=== PATIENT | female | born 1960 | race Caucasian/White ===

== ENCOUNTER 2020-01-31 16:38 | Emergency (ER) | payer OTHER ==
[~2020-01-31] VITALS: Ht 162.6 cm; Wt 49.9 kg
[2020-01-31] MEDS ORDERED: SODIUM CHLORIDE 0.9% 500ML 500 ML IV STA (16:39)
--- OUTSIDE RECORDS SUMMARY | 2020-01-31 16:51 | XMS REPORT ---
Author [facility] Address Unknown Phone Unavailable Care Team Providers Care Service Station Console Operator Name Role Phone Unavailable Unavailable Payers Payer Name Policy Type Policy Number Effective Date Expiration Date Problems This patient has no known problems. Allergies, Adverse Reactions, Alerts Allergy Name Allergy Type Status Severity Reaction(s) Onset Date Inactive Date Treating Clinician Comments No Known Allergies DA Active U 2019-05-06 00:00:00 No Known Allergies DA Active U 2019-03-09 00:00:00 No Known Allergies DA Active U 2018-11-30 00:00:00 No Known Allergies DA Active U 2018-07-30 00:00:00 No Known Allergies DA Active U 2018-07-27 00:00:00 No Known Allergies DA Active U 2017-08-25 00:00:00 No Known Allergies DA Active U 2017-05-10 00:00:00 Medications This patient has no known medications. Results Test Description Test Time Test Comments Text Results Atomic Results Result Comments URINALYSIS COMPLETE 2019-11-30 15:52:00 UA COLOR (test code=COLU) YELLOW YELLOW UA APPEARANCE (test code=APPU) Cloudy CLEAR UA GLUCOSE DIPSTICK (test code=DGLUU) NEGATIVE mg/dL NEGATIVE UA BILIRUBIN DIPSTICK (test code=BILU) NEGATIVE mg/dL NEGATIVE UA KETONE DIPSTICK (test code=KETU) NEGATIVE mg/dL NEGATIVE UA SPECIFIC GRAVITY (test code=SGU) 1.022 1.001-1.035 UA BLOOD DIPSTICK (test code=JORGE) 1.0 mg/dL (3+) mg/dL NEGATIVE UA PH DIPSTICK (test code=MAGED) 6.0 5.0-8.0 UA PROTEIN DIPSTICK (test code=PROU) 50 (1+) mg/dL NEGATIVE UA UROBILINIOGEN DIPSTICK (test code=URO) Normal mg/dL NEGATIVE UA NITRITE DIPSTICK (test code=BHARATH) POSITIVE NEGATIVE UA LEUKOCYTE ESTERASE W REFLEX (test code=LEUUR) 500 Ana/uL (3+) Ana/uL NEGATIVE UA WBC (test code=WBCU) 101-150 per HPF 0-5 UA RBC (test code=RBCU) 101-150 #/HPF 0-5 UA EPITHELIAL CELLS (test code=EPIU) FEW per HPF FEW UA BACTERIA (test code=BACU) MANY #/HPF NONE UA CALCIUM OXALATE CRYSTALS (test code=CAOXU) FEW #/HPF NONE UA MUCUS (test code=MUCU) FEW #/LPF FEW Urine Source? CatheterURINALYSIS [id number] 15:51:00* Test Item Value Reference Range Comments UA COLOR (test code=COLU) YELLOW YELLOW UA APPEARANCE (test code=APPU) Cloudy CLEAR UA GLUCOSE DIPSTICK (test code=DGLUU) NEGATIVE mg/dL NEGATIVE UA BILIRUBIN DIPSTICK (test code=BILU) NEGATIVE mg/dL NEGATIVE UA KETONE DIPSTICK (test code=KETU) NEGATIVE mg/dL NEGATIVE UA SPECIFIC GRAVITY (test code=SGU) 1.022 1.001-1.035 UA BLOOD DIPSTICK (test code=JORGE) 1.0 mg/dL (3+) mg/dL NEGATIVE UA PH DIPSTICK (test code=MAGED) 6.0 5.0-8.0 UA PROTEIN DIPSTICK (test code=PROU) 50 (1+) mg/dL NEGATIVE UA UROBILINIOGEN DIPSTICK (test code=URO) Normal mg/dL NEGATIVE UA NITRITE DIPSTICK (test code=BHARATH) POSITIVE NEGATIVE UA LEUKOCYTE ESTERASE W REFLEX (test code=LEUUR) 500 Ana/uL (3+) Ana/uL NEGATIVE UA WBC (test code=WBCU) per HPF 0-5 UA RBC (test code=RBCU) per HPF 0-5 UA EPITHELIAL CELLS (test code=EPIU) per HPF Few UA BACTERIA (test code=BACU) per HPF NONE Urine Source? Catheter- CONT INJ THERESE/ JAM/ CLARA/ [id number] 10:27:00 FAX: Angelo Hodges MD [phone] [place]: St: REG Name: OLEG UMANZOR [facility] : [birth year] Age/S: 58/F [address] [facility] Unit #: [id number] Loc: [place] [address] Phys: Angelo Hodges MD Acct: [id number] Dis Date: Status: REG CLI PHONE #: [phone] Exam Date: 05/29/2019 1013 FAX #: [phone] Reason: VERIFY G-TUBE PLACEMENT EXAMS: CPT CODE: [id number] CONT INJ THERESE/ JAM/ CLARA/ [place] [id number] HISTORY: VERIFY G-TUBE PLACEMENT TECHNIQUE: AP abdomen x-ray COMPARISON: Abdominal radiographs May 23, 2019 FINDINGS: Contrast administered through the gastrostomy tube opacifies the stomach lumen. No intraperiton eal spillage of contrast. Nonspecific nonobstructed bowel gas pattern. No intra-abdominal mass effect. No abnormal calcifications are obser dre. Degenerative changes of the spine and in the pelvis are unchanged. IVC filter is unchanged. Multiple surgical clips projecting over the right upper abdomen, likely cholecystectomy clips, are stable in position. IMPRESSION: Oral contrast and Mr. through t he rest grossly tube opacifies the stomach lumen. No intraperitoneal spi llage of contrast. Electronically Signed by Ted Sanchez MD on 2018 at 1027 Reported and signed by: Ted Sanchez MD CC: Angelo Hodges MD Techno logist: Tammie Mijares(R); Mere Olivas RT(R) Trnohrd Date/Time /By: 05/29/2019 (8067) : By: [email or web address] Orig Print D/T: S: 05/29/2019 ( 2974) PAGE 1 Signed Report - XR ABDOMEN AP 1 [id number] 13:02:00 FAX: Angelo Hodges MD [phone] [place]: St: REG Name: OLEG UMANZOR [facility] : [birth year] Age/S: 58/F [address] [facility] Unit #: [id number] Loc: [place] [address] Phys: Angelo Hodges MD Acct: [id number] Dis Date: Status: REG CLI PHONE #: [phone] Exam Date: 05/23/2019 1250 FAX #: [phone] Reason: peg tube placement EXAMS: CPT CODE: [id number] XR ABDOMEN AP 1 V 33987 HISTORY: peg tube placement TECHNIQUE: AP abdomen x-ray COMPARISON: None FINDINGS: Gastrografin was not able to be administered through the g astrostomy tube. IVC filter is present. Metallic sutures are present in th e left upper abdomen. Surgical clips projecting over the right upper quadr ant may be from a prior cholecystectomy. Nonspecific nonobstructed bowel gas pattern. No intra-abdominal mass effect. No abnormal sadia cifications are observed. Degenerative changes are present in the spine a nd sacroiliac joints. IMPRESSION: Incomple te exam since contrast was not able to be administered through the gastr ostomy tube. No radiographic evidence of acute intra-abdominal process. at 1302 Reported and signed by: Ted Sanchez MD CC: Angelo Leyva MD Technologist: RT ILANA(R) Trnscrd Date/Time/By: 05/23/2019 (28 11) : By: [email or web address] Orig Print D/T: S: 05/23/2019 (7403) PAGE 1 Signed Report [id number] 16:59:00* Test Item Value Reference Range Comments GLUBED (test code=GLUBED) 84 mg/dL 74-106 Performed by certified traffic control operator at [facility] BASIC METABOLIC [id number] 08:19:00* Test Item Value Reference Range Comments SODIUM (test code=NA) 142 mmol/L 136-145 POTASSIUM (test code=K) 3.5 mmol/L 3.5-5.1 CHLORIDE (test code=CL) 108.0 mmol/L 98-107 CARBON DIOXIDE (test code=CO2) 30.0 mmol/L 21-32 ANION GAP (test code=GAP) 7.5 10-20 GLUCOSE (test code=GLU) 83 mg/dL 74-106 BLOOD UREA NITROGEN (test code=BUN) 8 mg/dL 7-18 GLOMERULAR FILTRATION RATE (test code=GFR) > 60 mL/min >=60 Estimated GFR by using Modified MDRD formula.Chronic kidney disease is defined as either kidney damageor GFR <60 mL/min/1.73 m2 for >3 months. CREATININE (test code=CREAT) 0.30 mg/dL 0.55-1.02 Note change in reference range due to change in reagent. BUN/CREATININE RATIO (test code=BUN/CREA) 26.7 10-20 CALCIUM (test code=CA) 9.1 mg/dL 8.5-10.1 [id number] 07:35:00* Test Item Value Reference Range Comments GLUBED (test code=GLUBED) 98 mg/dL 74-106 Performed by certified traffic control operator at [facility] CBC W/AUTO [id number] 07:32:00* Test Item Value Reference Range Comments WHITE BLOOD CELL (test code=WBC) 6.2 K/mm3 4.5-12.5 RED BLOOD CELL (test code=RBC) 2.69 mill/mm3 3.7-5.2 HEMOGLOBIN (test code=HGB) 8.6 gram/dL 11.5-15.5 HEMATOCRIT (test code=HCT) 27.7 % 36.0-46.0 MEAN CELL VOLUME (test code=MCV) 103.0 fL 80-98 MEAN CELL HGB (test code=MCH) 32.0 picogram 27.0-33.0 MEAN CELL HGB CONCETRATION (test code=MCHC) 31.0 gram/dL 33.0-36.0 RED CELL DISTRIBUTION WIDTH (test code=RDW) 18.9 % 11.6-16.2 RED CELL DISTRIBUTION WIDTH SD (test code=RDW-SD) 70.3 fL 37.0-51.0 PLATELET COUNT (test code=PLT) 482 K/mm3 150-450 RESULT VERIFIED BY REPEAT ANALYSIS MEAN PLATELET VOLUME (test code=MPV) 9.5 fL 6.7-11.0 NEUTROPHIL % (test code=NT%) 73.0 % 39.0-69.0 IMMATURE GRANULOCYTE % (test code=IG%) 1.1 % 0.0-5.0 LYMPHOCYTE % (test code=LY%) 11.5 % 25.0-55.0 MONOCYTE % (test code=MO%) 11.7 % 0.0-10.0 EOSINOPHIL % (test code=EO%) 2.4 % 0.0-5.0 BASOPHIL % (test code=BA%) 0.3 % 0.0-1.0 NUCLEATED RBC % (test code=NRBC%) 0.0 % 0-0 NEUTROPHIL # (test code=NT#) 4.48 K/mm3 1.8-7.7 IMMATURE GRANULOCYTE # (test code=IG#) 0.07 x10 3/uL 0-0.03 LYMPHOCYTE # (test code=LY#) 0.71 K/mm3 1.0-5.0 MONOCYTE # (test code=MO#) 0.72 K/mm3 0-0.8 EOSINOPHIL # (test code=EO#) 0.15 K/mm3 0.0-0.5 BASOPHIL # (test code=BA#) 0.02 K/mm3 0.0-0.2 NUCLEATED RBC # (test code=NRBC#) 0.00 K/mm3 0.0-0.1 [id number] 21:34:00* Test Item Value Reference Range Comments GLUBED (test code=GLUBED) 91 mg/dL 74-106 Performed by certified traffic control operator at [facility] [id number] 11:32:00* Test Item Value Reference Range Comments GLUBED (test code=GLUBED) 86 mg/dL 74-106 Performed by certified traffic control operator at [facility] BASIC METABOLIC [id number] 05:30:00* Test Item Value Reference Range Comments SODIUM (test code=NA) 144 mmol/L 136-145 POTASSIUM (test code=K) 3.8 mmol/L 3.5-5.1 CHLORIDE (test code=CL) 112.0 mmol/L 98-107 CARBON DIOXIDE (test code=CO2) 26.0 mmol/L 21-32 ANION GAP (test code=GAP) 9.8 10-20 GLUCOSE (test code=GLU) 84 mg/dL 74-106 BLOOD UREA NITROGEN (test code=BUN) 6 mg/dL 7-18 GLOMERULAR FILTRATION RATE (test code=GFR) > 60 mL/min >=60 Estimated GFR by using Modified MDRD formula.Chronic kidney disease is defined as either kidney damageor GFR <60 mL/min/1.73 m2 for >3 months. CREATININE (test code=CREAT) 0.30 mg/dL 0.55-1.02 Note change in reference range due to change in reagent. BUN/CREATININE RATIO (test code=BUN/CREA) 22.6 10-20 CALCIUM (test code=CA) 8.9 mg/dL 8.5-10.1 BASIC METABOLIC [id number] 05:23:00* Test Item Value Reference Range Comments SODIUM (test code=NA) 144 mmol/L 136-145 POTASSIUM (test code=K) 3.8 mmol/L 3.5-5.1 CHLORIDE (test code=CL) 112.0 mmol/L 98-107 CARBON DIOXIDE (test code=CO2) mmol/L 21-32 ANION GAP (test code=GAP) 10-20 GLUCOSE (test code=GLU) mg/dL 74-106 BLOOD UREA NITROGEN (test code=BUN) mg/dL 7-18 GLOMERULAR FILTRATION RATE (test code=GFR) mL/min >=60 CREATININE (test code=CREAT) mg/dL 0.55-1.02 BUN/CREATININE RATIO (test code=BUN/CREA) 10-20 CALCIUM (test code=CA) mg/dL 8.5-10.1 CBC W/AUTO [id number] 04:56:00* Test Item Value Reference Range Comments WHITE BLOOD CELL (test code=WBC) 5.1 K/mm3 4.5-12.5 RED BLOOD CELL (test code=RBC) 2.84 mill/mm3 3.7-5.2 HEMOGLOBIN (test code=HGB) 9.2 gram/dL 11.5-15.5 HEMATOCRIT (test code=HCT) 29.4 % 36.0-46.0 MEAN CELL VOLUME (test code=MCV) 103.5 fL 80-98 MEAN CELL HGB (test code=MCH) 32.4 picogram 27.0-33.0 MEAN CELL HGB CONCETRATION (test code=MCHC) 31.3 gram/dL 33.0-36.0 RED CELL DISTRIBUTION WIDTH (test code=RDW) 18.6 % 11.6-16.2 RED CELL DISTRIBUTION WIDTH SD (test code=RDW-SD) 70.4 fL 37.0-51.0 PLATELET COUNT (test code=PLT) 396 K/mm3 150-450 MEAN PLATELET VOLUME (test code=MPV) 9.4 fL 6.7-11.0 NEUTROPHIL % (test code=NT%) 65.3 % 39.0-69.0 IMMATURE GRANULOCYTE % (test code=IG%) 2.4 % 0.0-5.0 LYMPHOCYTE % (test code=LY%) 15.2 % 25.0-55.0 MONOCYTE % (test code=MO%) 13.7 % 0.0-10.0 EOSINOPHIL % (test code=EO%) 3.0 % 0.0-5.0 BASOPHIL % (test code=BA%) 0.4 % 0.0-1.0 NUCLEATED RBC % (test code=NRBC%) 0.0 % 0-0 NEUTROPHIL # (test code=NT#) 3.30 K/mm3 1.8-7.7 IMMATURE GRANULOCYTE # (test code=IG#) 0.12 x10 3/uL 0-0.03 LYMPHOCYTE # (test code=LY#) 0.77 K/mm3 1.0-5.0 MONOCYTE # (test code=MO#) 0.69 K/mm3 0-0.8 EOSINOPHIL # (test code=EO#) 0.15 K/mm3 0.0-0.5 BASOPHIL # (test code=BA#) 0.02 K/mm3 0.0-0.2 NUCLEATED RBC # (test code=NRBC#) 0.00 K/mm3 0.0-0.1 MANUAL DIFF REQUIRED (test code=MDIFF) NO [id number] 17:39:00* Test Item Value Reference Range Comments GLUBED (test code=GLUBED) 101 mg/dL 74-106 Performed by certified traffic control operator at [facility] [id number] 17:39:00* Test Item Value Reference Range Comments GLUBED (test code=GLUBED) 99 mg/dL 74-106 Performed by certified traffic control operator at [facility] BASIC METABOLIC [id number] 09:34:00* Test Item Value Reference Range Comments SODIUM (test code=NA) 142 mmol/L 136-145 POTASSIUM (test code=K) 3.8 mmol/L 3.5-5.1 CHLORIDE (test code=CL) 112.0 mmol/L 98-107 CARBON DIOXIDE (test code=CO2) 26.0 mmol/L 21-32 ANION GAP (test code=GAP) 7.8 10-20 GLUCOSE (test code=GLU) 90 mg/dL 74-106 BLOOD UREA NITROGEN (test code=BUN) 5 mg/dL 7-18 GLOMERULAR FILTRATION RATE (test code=GFR) > 60 mL/min >=60 Estimated GFR by using Modified MDRD formula.Chronic kidney disease is defined as either kidney damageor GFR <60 mL/min/1.73 m2 for >3 months. CREATININE (test code=CREAT) 0.30 mg/dL 0.55-1.02 Note change in reference range due to change in reagent. BUN/CREATININE RATIO (test code=BUN/CREA) 18.5 10-20 CALCIUM (test code=CA) 8.8 mg/dL 8.5-10.1 BASIC METABOLIC [id number] 09:29:00* Test Item Value Reference Range Comments SODIUM (test code=NA) 142 mmol/L 136-145 POTASSIUM (test code=K) 3.8 mmol/L 3.5-5.1 CHLORIDE (test code=CL) 112.0 mmol/L 98-107 CARBON DIOXIDE (test code=CO2) mmol/L 21-32 ANION GAP (test code=GAP) 10-20 GLUCOSE (test code=GLU) mg/dL 74-106 BLOOD UREA NITROGEN (test code=BUN) mg/dL 7-18 GLOMERULAR FILTRATION RATE (test code=GFR) mL/min >=60 CREATININE (test code=CREAT) mg/dL 0.55-1.02 BUN/CREATININE RATIO (test code=BUN/CREA) 10-20 CALCIUM (test code=CA) mg/dL 8.5-10.1 CBC W/AUTO [id number] 09:21:00* Test Item Value Reference Range Comments WHITE BLOOD CELL (test code=WBC) 4.8 K/mm3 4.5-12.5 RED BLOOD CELL (test code=RBC) 2.81 mill/mm3 3.7-5.2 HEMOGLOBIN (test code=HGB) 8.9 gram/dL 11.5-15.5 HEMATOCRIT (test code=HCT) 28.7 % 36.0-46.0 MEAN CELL VOLUME (test code=MCV) 102.1 fL 80-98 MEAN CELL HGB (test code=MCH) 31.7 picogram 27.0-33.0 MEAN CELL HGB CONCETRATION (test code=MCHC) 31.0 gram/dL 33.0-36.0 RED CELL DISTRIBUTION WIDTH (test code=RDW) 18.5 % 11.6-16.2 RED CELL DISTRIBUTION WIDTH SD (test code=RDW-SD) 68.2 fL 37.0-51.0 PLATELET COUNT (test code=PLT) 363 K/mm3 150-450 MEAN PLATELET VOLUME (test code=MPV) 9.6 fL 6.7-11.0 NEUTROPHIL % (test code=NT%) 73.2 % 39.0-69.0 IMMATURE GRANULOCYTE % (test code=IG%) 1.0 % 0.0-5.0 LYMPHOCYTE % (test code=LY%) 10.2 % 25.0-55.0 MONOCYTE % (test code=MO%) 13.5 % 0.0-10.0 EOSINOPHIL % (test code=EO%) 1.7 % 0.0-5.0 BASOPHIL % (test code=BA%) 0.4 % 0.0-1.0 NUCLEATED RBC % (test code=NRBC%) 0.0 % 0-0 NEUTROPHIL # (test code=NT#) 3.52 K/mm3 1.8-7.7 IMMATURE GRANULOCYTE # (test code=IG#) 0.05 x10 3/uL 0-0.03 LYMPHOCYTE # (test code=LY#) 0.49 K/mm3 1.0-5.0 MONOCYTE # (test code=MO#) 0.65 K/mm3 0-0.8 EOSINOPHIL # (test code=EO#) 0.08 K/mm3 0.0-0.5 BASOPHIL # (test code=BA#) 0.02 K/mm3 0.0-0.2 NUCLEATED RBC # (test code=NRBC#) 0.00 K/mm3 0.0-0.1 MANUAL DIFF REQUIRED (test code=MDIFF) NO [id number] 05:50:00* Test Item Value Reference Range Comments GLUBED (test code=GLUBED) 75 mg/dL 74-106 Performed by certified traffic control operator at [facility] [id number] 20:31:00* Test Item Value Reference Range Comments GLUBED (test code=GLUBED) 94 mg/dL 74-106 Performed by certified traffic control operator at [facility] - XR SACRUM/COCCYX 2 + [id number] 13:55:00 FAX: Fabienne Pinto MD [phone] [place]: B St: ADM FAX: Jordy Martinez DO [phone] FAX: Kwesi Goss NP [phone] Name: OLEG STEINER [facility] : 1960 Age/S: 58/F [address] Unit #: [id number] Loc: V.[address] [address] Phys: Kwesi Ivory [employer] Acct: [id number] Dis Date: Status: ADM IN ONE #: [phone] Exam Date: 05/10/2019909 FAX #: [phone] Reason: r/o osteomyelitis EXAMS: CPT CODE: [id number] XR SACRUM/COCCYX 2 + V 71807 CLINICAL HISTO RY: r/o osteomyelitis TECHNIQUE: 4 views of the sacrum COMPARISON: None FINDINGS: There are erosive can ges in the coccyx. This is suboptimally evaluated due to poor penetration of x-rays on the lateral view There are degenerative changes in th e spine. There are also degenerative changes in the pubic symphysis. IMPRESSION: Erosive changes in the coccyx. This is suboptimally evaluated. If there is concern for osteomyelitis th en an MRI with and without contrast can provide further evaluation. at 3999 Reported and signed by: Ted Sanchez MD CC: Fabienne Osorio MD; Jordy Gambino; Kwesi Ivory NP Technologist: RT XOCHITL( Eduarda) Trnscrd Date/Time/By: 05/10/2019 (4690) : By: [email or web address] Orig Print D/T: S: 05/10/2019 (5492) PAGE 1 Signed Report CBC W/AUTO [id number] 09:52:00* Test Item Value Reference Range Comments WHITE BLOOD CELL (test code=WBC) 5.1 K/mm3 4.5-12.5 RED BLOOD CELL (test code=RBC) 2.55 mill/mm3 3.7-5.2 HEMOGLOBIN (test code=HGB) 8.1 gram/dL 11.5-15.5 HEMATOCRIT (test code=HCT) 25.8 % 36.0-46.0 MEAN CELL VOLUME (test code=MCV) 101.2 fL 80-98 MEAN CELL HGB (test code=MCH) 31.8 picogram 27.0-33.0 MEAN CELL HGB CONCETRATION (test code=MCHC) 31.4 gram/dL 33.0-36.0 RED CELL DISTRIBUTION WIDTH (test code=RDW) 18.5 % 11.6-16.2 RED CELL DISTRIBUTION WIDTH SD (test code=RDW-SD) 68.8 fL 37.0-51.0 PLATELET COUNT (test code=PLT) 361 K/mm3 150-450 RESULT VERIFIED BY REPEAT ANALYSIS MEAN PLATELET VOLUME (test code=MPV) 9.7 fL 6.7-11.0 NEUTROPHIL % (test code=NT%) 71.3 % 39.0-69.0 IMMATURE GRANULOCYTE % (test code=IG%) 0.8 % 0.0-5.0 LYMPHOCYTE % (test code=LY%) 13.3 % 25.0-55.0 MONOCYTE % (test code=MO%) 12.5 % 0.0-10.0 EOSINOPHIL % (test code=EO%) 1.9 % 0.0-5.0 BASOPHIL % (test code=BA%) 0.2 % 0.0-1.0 NUCLEATED RBC % (test code=NRBC%) 0.0 % 0-0 NEUTROPHIL # (test code=NT#) 3.66 K/mm3 1.8-7.7 IMMATURE GRANULOCYTE # (test code=IG#) 0.04 x10 3/uL 0-0.03 LYMPHOCYTE # (test code=LY#) 0.68 K/mm3 1.0-5.0 MONOCYTE # (test code=MO#) 0.64 K/mm3 0-0.8 EOSINOPHIL # (test code=EO#) 0.10 K/mm3 0.0-0.5 BASOPHIL # (test code=BA#) 0.01 K/mm3 0.0-0.2 NUCLEATED RBC # (test code=NRBC#) 0.00 K/mm3 0.0-0.1 MANUAL DIFF REQUIRED (test code=MDIFF) NO BASIC METABOLIC [id number] 09:47:00* Test Item Value Reference Range Comments SODIUM (test code=NA) 141 mmol/L 136-145 POTASSIUM (test code=K) 3.8 mmol/L 3.5-5.1 CHLORIDE (test code=CL) 111.0 mmol/L 98-107 CARBON DIOXIDE (test code=CO2) 26.0 mmol/L 21-32 ANION GAP (test code=GAP) 7.8 10-20 GLUCOSE (test code=GLU) 80 mg/dL 74-106 BLOOD UREA NITROGEN (test code=BUN) 6 mg/dL 7-18 GLOMERULAR FILTRATION RATE (test code=GFR) > 60 mL/min >=60 Estimated GFR by using Modified MDRD formula.Chronic kidney disease is defined as either kidney damageor GFR <60 mL/min/1.73 m2 for >3 months. CREATININE (test code=CREAT) 0.20 mg/dL 0.55-1.02 Note change in reference range due to change in reagent. BUN/CREATININE RATIO (test code=BUN/CREA) 29.6 10-20 CALCIUM (test code=CA) 8.4 mg/dL 8.5-10.1 BASIC METABOLIC [id number] 09:41:00* Test Item Value Reference Range Comments SODIUM (test code=NA) 141 mmol/L 136-145 POTASSIUM (test code=K) 3.8 mmol/L 3.5-5.1 CHLORIDE (test code=CL) 111.0 mmol/L 98-107 CARBON DIOXIDE (test code=CO2) mmol/L 21-32 ANION GAP (test code=GAP) 10-20 GLUCOSE (test code=GLU) mg/dL 74-106 BLOOD UREA NITROGEN (test code=BUN) mg/dL 7-18 GLOMERULAR FILTRATION RATE (test code=GFR) mL/min >=60 CREATININE (test code=CREAT) mg/dL 0.55-1.02 BUN/CREATININE RATIO (test code=BUN/CREA) 10-20 CALCIUM (test code=CA) mg/dL 8.5-10.1 [id number] 01:35:00* Test Item Value Reference Range Comments GENTAMICIN (test code=GENT) 4.2 mg/mL 4-8.0 GENTAMICIN TOXIC LEVEL: >12 UG/ML [id number] 13:09:00* Test Item Value Reference Range Comments MAGNESIUM (test code=MAG) 1.7 mg/dL 1.8-2.4 BASIC METABOLIC [id number] 06:41:00* Test Item Value Reference Range Comments SODIUM (test code=NA) 144 mmol/L 136-145 POTASSIUM (test code=K) 2.9 mmol/L 3.5-5.1 Results called to [id number] by DAYANARA 05/09/19 0641Critical results verified and read back by Nurse? Y CHLORIDE (test code=CL) 114.0 mmol/L 98-107 CARBON DIOXIDE (test code=CO2) 22.0 mmol/L 21-32 ANION GAP (test code=GAP) 10.9 10-20 GLUCOSE (test code=GLU) 67 mg/dL 74-106 BLOOD UREA NITROGEN (test code=BUN) 7 mg/dL 7-18 GLOMERULAR FILTRATION RATE (test code=GFR) > 60 mL/min >=60 Estimated GFR by using Modified MDRD formula.Chronic kidney disease is defined as either kidney damageor GFR <60 mL/min/1.73 m2 for >3 months. CREATININE (test code=CREAT) 0.20 mg/dL 0.55-1.02 Note change in reference range due to change in reagent. BUN/CREATININE RATIO (test code=BUN/CREA) 33.7 10-20 CALCIUM (test code=CA) 7.9 mg/dL 8.5-10.1 CBC W/AUTO [id number] 06:08:00* Test Item Value Reference Range Comments WHITE BLOOD CELL (test code=WBC) 5.2 K/mm3 4.5-12.5 RED BLOOD CELL (test code=RBC) 2.38 mill/mm3 3.7-5.2 HEMOGLOBIN (test code=HGB) 7.8 gram/dL 11.5-15.5 HEMATOCRIT (test code=HCT) 24.9 % 36.0-46.0 MEAN CELL VOLUME (test code=MCV) 104.6 fL 80-98 MEAN CELL HGB (test code=MCH) 32.8 picogram 27.0-33.0 MEAN CELL HGB CONCETRATION (test code=MCHC) 31.3 gram/dL 33.0-36.0 RED CELL DISTRIBUTION WIDTH (test code=RDW) 18.6 % 11.6-16.2 RED CELL DISTRIBUTION WIDTH SD (test code=RDW-SD) 69.7 fL 37.0-51.0 PLATELET COUNT (test code=PLT) 298 K/mm3 150-450 MEAN PLATELET VOLUME (test code=MPV) 10.1 fL 6.7-11.0 NEUTROPHIL % (test code=NT%) 70.6 % 39.0-69.0 IMMATURE GRANULOCYTE % (test code=IG%) 1.0 % 0.0-5.0 LYMPHOCYTE % (test code=LY%) 11.2 % 25.0-55.0 MONOCYTE % (test code=MO%) 14.7 % 0.0-10.0 EOSINOPHIL % (test code=EO%) 2.1 % 0.0-5.0 BASOPHIL % (test code=BA%) 0.4 % 0.0-1.0 NUCLEATED RBC % (test code=NRBC%) 0.0 % 0-0 NEUTROPHIL # (test code=NT#) 3.64 K/mm3 1.8-7.7 IMMATURE GRANULOCYTE # (test code=IG#) 0.05 x10 3/uL 0-0.03 LYMPHOCYTE # (test code=LY#) 0.58 K/mm3 1.0-5.0 MONOCYTE # (test code=MO#) 0.76 K/mm3 0-0.8 EOSINOPHIL # (test code=EO#) 0.11 K/mm3 0.0-0.5 BASOPHIL # (test code=BA#) 0.02 K/mm3 0.0-0.2 NUCLEATED RBC # (test code=NRBC#) 0.00 K/mm3 0.0-0.1 MANUAL DIFF REQUIRED (test code=MDIFF) NO BASIC METABOLIC [id number] 06:00:00* Test Item Value Reference Range Comments SODIUM (test code=NA) 143 mmol/L 136-145 POTASSIUM (test code=K) 3.3 mmol/L 3.5-5.1 CHLORIDE (test code=CL) 111.0 mmol/L 98-107 CARBON DIOXIDE (test code=CO2) 24.0 mmol/L 21-32 ANION GAP (test code=GAP) 11.3 10-20 GLUCOSE (test code=GLU) 69 mg/dL 74-106 BLOOD UREA NITROGEN (test code=BUN) 9 mg/dL 7-18 GLOMERULAR FILTRATION RATE (test code=GFR) > 60 mL/min >=60 Estimated GFR by using Modified MDRD formula.Chronic kidney disease is defined as either kidney damageor GFR <60 mL/min/1.73 m2 for >3 months. CREATININE (test code=CREAT) 0.30 mg/dL 0.55-1.02 Note change in reference range due to change in reagent. BUN/CREATININE RATIO (test code=BUN/CREA) 35.9 10-20 CALCIUM (test code=CA) 8.1 mg/dL 8.5-10.1 FE W/TOTAL IRON BINDING CAP.[id number] 06:00:00* Test Item Value Reference Range Comments SERUM IRON (test code=IRON) 17 ug/dL 50-175 TOTAL IRON BINDING CAPACITY (test code=TIBC) 87 mcg/dL 250-450 IRON SATURATION (test code=FESAT) 19.54 % 13-45 VITAMIN [id number] 06:00:00* Test Item Value Reference Range Comments VITAMIN B12 (test code=VITB12) 585 pg/mL 193-986 FOLIC [id number] 06:00:00* Test Item Value Reference Range Comments FOLIC ACID (test code=FOL) 28.5 ng/mL 3.10-17.50 THYROID STIMULATING [id number] 06:00:00* Test Item Value Reference Range Comments THYROID STIMULATING HORMONE (test code=TSH) 4.190 uIU/mL 0.36-3.74 TSH REFERENCE RANGES: EUTHYROID: 0.35 - 4.3 mIU/mL HYPO : > 5.5 mIU/mL HYPER : < 0.35 mIU/mL [id number] 06:00:00* Test Item Value Reference Range Comments FERRITIN (test code=MINO) 1612 ng/mL 8-388 BASIC METABOLIC [id number] 05:06:00* Test Item Value Reference Range Comments SODIUM (test code=NA) 143 mmol/L 136-145 POTASSIUM (test code=K) 3.3 mmol/L 3.5-5.1 CHLORIDE (test code=CL) 111.0 mmol/L 98-107 CARBON DIOXIDE (test code=CO2) mmol/L 21-32 ANION GAP (test code=GAP) 10-20 GLUCOSE (test code=GLU) mg/dL 74-106 BLOOD UREA NITROGEN (test code=BUN) mg/dL 7-18 GLOMERULAR FILTRATION RATE (test code=GFR) mL/min >=60 CREATININE (test code=CREAT) mg/dL 0.55-1.02 BUN/CREATININE RATIO (test code=BUN/CREA) 10-20 CALCIUM (test code=CA) mg/dL 8.5-10.1 FE W/TOTAL IRON BINDING CAP.2019-05-08 05:06:00* Test Item Value Reference Range Comments SERUM IRON (test code=IRON) ug/dL 50-175 TOTAL IRON BINDING CAPACITY (test code=TIBC) mcg/dL 250-450 IRON SATURATION (test code=FESAT) % 13-45 VITAMIN [id number] 05:06:00* Test Item Value Reference Range Comments VITAMIN B12 (test code=VITB12) pg/mL 193-986 FOLIC [id number] 05:06:00* Test Item Value Reference Range Comments FOLIC ACID (test code=FOL) ng/mL 3.10-17.50 THYROID STIMULATING [id number] 05:06:00* Test Item Value Reference Range Comments THYROID STIMULATING HORMONE (test code=TSH) uIU/mL 0.36-3.74 [id number] 05:06:00* Test Item Value Reference Range Comments FERRITIN (test code=MINO) ng/mL 8-388 CBC W/AUTO [id number] 04:55:00* Test Item Value Reference Range Comments WHITE BLOOD CELL (test code=WBC) 8.2 K/mm3 4.5-12.5 RED BLOOD CELL (test code=RBC) 2.39 mill/mm3 3.7-5.2 HEMOGLOBIN (test code=HGB) 7.6 gram/dL 11.5-15.5 HEMATOCRIT (test code=HCT) 23.8 % 36.0-46.0 MEAN CELL VOLUME (test code=MCV) 99.6 fL 80-98 MEAN CELL HGB (test code=MCH) 31.8 picogram 27.0-33.0 MEAN CELL HGB CONCETRATION (test code=MCHC) 31.9 gram/dL 33.0-36.0 RED CELL DISTRIBUTION WIDTH (test code=RDW) 19.0 % 11.6-16.2 RED CELL DISTRIBUTION WIDTH SD (test code=RDW-SD) 69.6 fL 37.0-51.0 PLATELET COUNT (test code=PLT) 269 K/mm3 150-450 MEAN PLATELET VOLUME (test code=MPV) 9.9 fL 6.7-11.0 NEUTROPHIL % (test code=NT%) 79.5 % 39.0-69.0 IMMATURE GRANULOCYTE % (test code=IG%) 0.6 % 0.0-5.0 LYMPHOCYTE % (test code=LY%) 7.3 % 25.0-55.0 MONOCYTE % (test code=MO%) 11.9 % 0.0-10.0 EOSINOPHIL % (test code=EO%) 0.6 % 0.0-5.0 BASOPHIL % (test code=BA%) 0.1 % 0.0-1.0 NUCLEATED RBC % (test code=NRBC%) 0.0 % 0-0 NEUTROPHIL # (test code=NT#) 6.55 K/mm3 1.8-7.7 IMMATURE GRANULOCYTE # (test code=IG#) 0.05 x10 3/uL 0-0.03 LYMPHOCYTE # (test code=LY#) 0.60 K/mm3 1.0-5.0 MONOCYTE # (test code=MO#) 0.98 K/mm3 0-0.8 EOSINOPHIL # (test code=EO#) 0.05 K/mm3 0.0-0.5 BASOPHIL # (test code=BA#) 0.01 K/mm3 0.0-0.2 NUCLEATED RBC # (test code=NRBC#) 0.00 K/mm3 0.0-0.1 MANUAL DIFF REQUIRED (test code=MDIFF) NO LACTIC [id number] 00:14:00* Test Item Value Reference Range Comments LACTIC ACID (test code=LACT) 1.2 mmol/L 0.4-1.9 - CTA [id number] 23:23:00 Name: OLEG STEINER [facility] : 1960 Age/S: 58 / F [address] [facility] Unit #: [id number] Loc: DERRICK Chou [address] Phys: Kiel Zelaya MD Acct: [id number] Dis Date: Status: REG ER PHONE #: [phone] Exam Date: 05/06/20192251 FAX #: [phone] Reason: sob r/o pe EXAMS: CPT CODE: [id number] CTA CHEST 53581 REASON FOR EXAM: sob r/o pe EXAM ORDER DATE: 05/06/2019 10:02 PM Ordering Jay: Kiel Zelaya MD PROCEDURE: - CTA CHEST Comparison:AP chest x-ray earlier the same day at 9:[address] images of the chest were obtained following the administration of IV contrast and the pulmonary arterial phase. Reconstructed sagittal and coronal images of the chest were provided for interpretation. Dose reduction techniques were applied. FINDINGS: Visualized neck: Bilateral thyroid nodules with the largest nodule (left lobe) measuring up to 1.1 cm in size. Airways, Lungs and Pleura: There are tree-in-bud opacities in the superior segment of the right lower lobe. There is also enhancing consolidative opacification of the posterior basal segment of the right lower lobe. There are mucus bronchograms within the atelectatic lung. There is also a small subpulmonic pleural effusion on the right side. Trace left-sided pleural effusion is also present and there is s ubsegmental atelectasis in the left lung base. Upper lobes are clear. Heart, great vessels, pulmonary vessels, mediastinum: There are multip le filling defects in the left pulmonary artery. These filling defects ext end into the artery supplying the anterior segment of the left upper lobe, into the artery supplying the lingula, and multiple arteries supplying the left lower lobe. There are filling defects at the trifurcation of the ri ght upper lobar pulmonary artery. Additional filling defects are seen at t he bifurcation of the intralobar pulmonary artery with one of the filling defects extending into the middle lobar pulmonary artery. There is a small filling defect in the arterial branch perfusing the superior segment of the right lower lobe. No evidence of right heart strain. The pulmonary trunk and ascending aorta are normal in caliber at the time of this exam. Left subclavian Port-A-Cath terminates in the distal SVC. There is also right upper extremity PICC that terminates in the proximal SVC. PAGE 1 Signed Report (CONTINUED) N curry: OLEG STEINER [facility] : 0 1960 Age/S: 58 / F [address] [facility] Unit #: [id number] Loc: DERRICK Chou [address] Phys: Aaron Zelaya MD Acct: [id number] Dis D ate: Status: REG ER PHONE #: [phone] Exam Date: 05/06/20192251 FAX #: [phone] Reason: sob r/o pe EXAMS: CPT CODE: [id number] CTA CHEST 13081 <Continued> Lymph nodes: No axillary, internal mammary, hilar, or mediastinal adenopathy. Musculoskeletal/chest wall: Degenerative changes are seen throughout the visualized spine. Visualized upper abdomen: Gallbladder surgically absent and there is physiologic dilation of the intra and extra hepatic biliary ducts. Postsurgical changes in the stomach suggest a gastric bypass. There is also a percutaneous gastrostomy tube which terminates in the bypassed portion of the stomach. IMPRESSION: Emboli in the bilateral pulmonary arteries extending into the lobar and segmental branches as described above. No saddle embolus and no findings to suggest right heart strain at the time of this exam. Findings of aspiration in the right lower lobe. Superimposed pneumonia cannot be excluded. Trace subpulmonic right-sided pleural effusion. There is also a small left-sided pleural effusion with subsegmental atelectasis in the left lung base. Preliminary findi ngs were delivered to Dr. Zelaya by telephone at 11:20 PM May 06 19 at 2153 Reported and signed by: Ted Sanchez MD CC: Kiel Ware MD Technologist:KERRI JACOBO CT; ... CTDI: DLP: Trnscb Date/Time: 05/06/2019 (2576) t. [id number] Orig Print D/T: S: 05/06/2019 (3126) PAGE 2 Signed Report URINALYSIS [id number] 22:20:00* Test Item Value Reference Range Comments UA COLOR (test code=COLU) YELLOW YELLOW UA APPEARANCE (test code=APPU) HAZY CLEAR UA GLUCOSE DIPSTICK (test code=DGLUU) NEGATIVE mg/dL NEGATIVE UA BILIRUBIN DIPSTICK (test code=BILU) NEGATIVE NEGATIVE UA KETONE DIPSTICK (test code=KETU) NEGATIVE mg/dL NEGATIVE UA SPECIFIC GRAVITY (test code=SGU) 1.010 1.001-1.035 UA BLOOD DIPSTICK (test code=JORGE) TRACE NEGATIVE UA PH DIPSTICK (test code=MAGED) 7.5 5.0-8.0 UA PROTEIN DIPSTICK (test code=PROU) TRACE (15) mg/dL Neg-15 UA UROBILINIOGEN DIPSTICK (test code=URO) 0.2 mg/dL 0.0-0.2 UA NITRITE DIPSTICK (test code=BHARATH) POSITIVE NEGATIVE UA LEUKOCYTE ESTERASE W REFLEX (test code=LEUUR) 2+ NEGATIVE UA WBC (test code=WBCU) 20-30 per HPF 0-5 UA RBC (test code=RBCU) 10-15 per HPF 0-5 UA EPITHELIAL CELLS (test code=EPIU) Few (2-5/hpf) per HPF Few UA BACTERIA (test code=BACU) MODERATE per HPF NONE UA TRIPLE PHOSPHATE CRYSTALS (test code=TRPHOSU) FEW per LPF NONE UA GRANULAR CAST (test code=GRANU) 2-5 #/LPF NONE UA MUCUS (test code=MUCU) FEW per LPF NONE-FEW UA AMORPHOUS SEDIMENT (test code=AMORU) FEW per LPF NONE UA YEAST (test code=YEASTU) FEW per HPF NONE Urine Source? Clean CatchURINALYSIS [id number] 22:16:00* Test Item Value Reference Range Comments UA COLOR (test code=COLU) YELLOW YELLOW UA APPEARANCE (test code=APPU) HAZY CLEAR UA GLUCOSE DIPSTICK (test code=DGLUU) NEGATIVE mg/dL NEGATIVE UA BILIRUBIN DIPSTICK (test code=BILU) NEGATIVE NEGATIVE UA KETONE DIPSTICK (test code=KETU) NEGATIVE mg/dL NEGATIVE UA SPECIFIC GRAVITY (test code=SGU) 1.010 1.001-1.035 UA BLOOD DIPSTICK (test code=JORGE) TRACE NEGATIVE UA PH DIPSTICK (test code=MAGED) 7.5 5.0-8.0 UA PROTEIN DIPSTICK (test code=PROU) TRACE (15) mg/dL Neg-15 UA UROBILINIOGEN DIPSTICK (test code=URO) 0.2 mg/dL 0.0-0.2 UA NITRITE DIPSTICK (test code=BHARATH) POSITIVE NEGATIVE UA LEUKOCYTE ESTERASE W REFLEX (test code=LEUUR) 2+ NEGATIVE UA WBC (test code=WBCU) per HPF 0-5 UA RBC (test code=RBCU) per HPF 0-5 UA EPITHELIAL CELLS (test code=EPIU) per HPF Few UA BACTERIA (test code=BACU) per HPF NONE Urine Source? Clean CatchB-TYPE NATRIURETIC [id number] 22:15:00* Test Item Value Reference Range Comments B-TYPE NATRIURETIC PEPTIDE (test code=BNP) 38.72 pgram/mL 0-100 PROCALCITONIN (PCT)2019-05-06 22:14:00* Test Item Value Reference Range Comments PROCALCITONIN (PCT) (test code=PROCAL) 0.10 ng/ml Concentration Interpretation (ng/mL) <0.51 Sepsis is not likely. Local bacterial infection is possible. (LOW RISK for progression to Sepsis) 0.51 - 2.00 Sepsis is possible, but other conditions are known to elevate PCT as well. (MODERATE RISK for progression to Sepsis) > 2.00 Sepsis is likely, unless other causes are known. (HIGH RISK for progression to Severe Sepsis or Septic Shock) 10.00 High likelihood of Severe Sepsis or Septic or higher Shock. *Increased PCT levels may not always be related to systemic bacterial infection.*Low PCT levels do not automatically exclude the presence of bacterial infection.*All results should be interpreted taking into account the patients history. PROTHROMBIN [id number] 22:05:00* Test Item Value Reference Range Comments PROTHROMBIN TIME PATIENT (test code=PTP) 12.3 seconds 9.0-14.0 INTERNATIONAL NORMAL RATIO (test code=INR) 1.0 0.8-1.2 The therapeutic range for oral anticoagulant therapy formost indications is an international normalized ratio (INR)of between 2.0 and 3.0. The recommended therapeutic INRrange for various clinical situations is listed below: Clinical Situation INR range Pulmonary e mbolism treatment (2.0-3.0)Venous thrombosis treatmentVenous thrombosis prophylaxis (high risk surgery)Prevention of systemic embolism from: Acute myocardial infarction Valvular heart disease Atrial fibrillation Mechanical prosthetic heart valves (2.5-3.5) IS PATIENT ON ANTICOAGULANTS? NTHROMBOPLASTIN TIME [id number] 22:05:00* Test Item Value Reference Range Comments THROMBOPLASTIN TIME PARTIAL (test code=PTT) 24.7 seconds 25.0-36.5 IS PATIENT ON ANTICOAGULANTS? NCBC W/AUTO [id number] 22:00:00* Test Item Value Reference Range Comments WHITE BLOOD CELL (test code=WBC) 7.7 K/mm3 4.5-12.5 RED BLOOD CELL (test code=RBC) 2.96 mill/mm3 3.7-5.2 HEMOGLOBIN (test code=HGB) 9.4 gram/dL 11.5-15.5 HEMATOCRIT (test code=HCT) 29.2 % 36.0-46.0 MEAN CELL VOLUME (test code=MCV) 98.6 fL 80-98 MEAN CELL HGB (test code=MCH) 31.8 picogram 27.0-33.0 MEAN CELL HGB CONCETRATION (test code=MCHC) 32.2 gram/dL 33.0-36.0 RED CELL DISTRIBUTION WIDTH (test code=RDW) 18.6 % 11.6-16.2 RED CELL DISTRIBUTION WIDTH SD (test code=RDW-SD) 66.6 fL 37.0-51.0 PLATELET COUNT (test code=PLT) 231 K/mm3 150-450 MEAN PLATELET VOLUME (test code=MPV) 10.5 fL 6.7-11.0 NEUTROPHIL % (test code=NT%) 79.9 % 39.0-69.0 IMMATURE GRANULOCYTE % (test code=IG%) 0.8 % 0.0-5.0 LYMPHOCYTE % (test code=LY%) 9.6 % 25.0-55.0 MONOCYTE % (test code=MO%) 9.3 % 0.0-10.0 EOSINOPHIL % (test code=EO%) 0.3 % 0.0-5.0 BASOPHIL % (test code=BA%) 0.1 % 0.0-1.0 NUCLEATED RBC % (test code=NRBC%) 0.0 % 0-0 NEUTROPHIL # (test code=NT#) 6.13 K/mm3 1.8-7.7 IMMATURE GRANULOCYTE # (test code=IG#) 0.06 x10 3/uL 0-0.03 LYMPHOCYTE # (test code=LY#) 0.74 K/mm3 1.0-5.0 MONOCYTE # (test code=MO#) 0.71 K/mm3 0-0.8 EOSINOPHIL # (test code=EO#) 0.02 K/mm3 0.0-0.5 BASOPHIL # (test code=BA#) 0.01 K/mm3 0.0-0.2 NUCLEATED RBC # (test code=NRBC#) 0.00 K/mm3 0.0-0.1 MANUAL DIFF REQUIRED (test code=MDIFF) NO, ONLY SCAN NEEDED DIFFERENTIAL [id number] 22:00:00* Test Item Value Reference Range Comments STAIN ACCEPTABILITY (test code=STN ACCEPTABLE) STAIN ACCEPTABLE POIKILOCYTOSIS (test code=POIK) 1+ ANISOCYTOSIS (test code=ANISO) 1+ PLATELET ESTIMATE (test code=PLTEST) ADEQUATE PLATELET MORPHOLOGY (test code=PLTMORPH) NORMAL BASIC METABOLIC [id number] 22:00:00* Test Item Value Reference Range Comments SODIUM (test code=NA) 138 mmol/L 136-145 POTASSIUM (test code=K) 4.2 mmol/L 3.5-5.1 CHLORIDE (test code=CL) 104.0 mmol/L 98-107 CARBON DIOXIDE (test code=CO2) 27.0 mmol/L 21-32 ANION GAP (test code=GAP) 11.2 10-20 GLUCOSE (test code=GLU) 116 mg/dL 74-106 BLOOD UREA NITROGEN (test code=BUN) 15 mg/dL 7-18 GLOMERULAR FILTRATION RATE (test code=GFR) > 60 mL/min >=60 Estimated GFR by using Modified MDRD formula.Chronic kidney disease is defined as either kidney damageor GFR <60 mL/min/1.73 m2 for >3 months. CREATININE (test code=CREAT) 0.30 mg/dL 0.55-1.02 Note change in reference range due to change in reagent. BUN/CREATININE RATIO (test code=BUN/CREA) 44.1 10-20 CALCIUM (test code=CA) 8.6 mg/dL 8.5-10.1 HEPATIC FUNCTION [id number] 22:00:00* Test Item Value Reference Range Comments TOTAL PROTEIN (test code=PROT) 5.6 gram/dL 6.4-8.2 ALBUMIN (test code=ALB) 1.6 g/dL 3.4-5.0 GLOBULIN (test code=GLOB) 4.0 gram/dL 2.7-4.2 ALBUMIN/GLOBULIN RATIO (test code=A/G) 0.4 0.75-1.50 BILIRUBIN TOTAL (test code=BILT) 0.10 mg/dL 0.0-1.0 BILIRUBIN DIRECT (test code=BILD) 0.08 mg/dL 0.0-0.20 SGOT/AST (test code=AST) 30 IUnit/L 15-37 SGPT/ALT (test code=ALT) 26 IUnit/L 12-78 ALKALINE PHOSPHATASE TOTAL (test code=ALKP) 89 IUnit/L 45-117 Note change in reference range due to change in reagent. [id number] 22:00:00* Test Item Value Reference Range Comments TROPONIN-I (test code=TROPI) <0.015 ng/mL 0-0.045 BASIC METABOLIC [id number] 21:50:00* Test Item Value Reference Range Comments SODIUM (test code=NA) 138 mmol/L 136-145 POTASSIUM (test code=K) 4.2 mmol/L 3.5-5.1 CHLORIDE (test code=CL) 104.0 mmol/L 98-107 CARBON DIOXIDE (test code=CO2) mmol/L 21-32 ANION GAP (test code=GAP) 10-20 GLUCOSE (test code=GLU) mg/dL 74-106 BLOOD UREA NITROGEN (test code=BUN) mg/dL 7-18 GLOMERULAR FILTRATION RATE (test code=GFR) mL/min >=60 CREATININE (test code=CREAT) mg/dL 0.55-1.02 BUN/CREATININE RATIO (test code=BUN/CREA) 10-20 CALCIUM (test code=CA) mg/dL 8.5-10.1 HEPATIC FUNCTION [id number] 21:50:00* Test Item Value Reference Range Comments TOTAL PROTEIN (test code=PROT) gram/dL 6.4-8.2 ALBUMIN (test code=ALB) g/dL 3.4-5.0 GLOBULIN (test code=GLOB) gram/dL 2.7-4.2 ALBUMIN/GLOBULIN RATIO (test code=A/G) 0.75-1.50 BILIRUBIN TOTAL (test code=BILT) mg/dL 0.0-1.0 BILIRUBIN DIRECT (test code=BILD) mg/dL 0.0-0.20 SGOT/AST (test code=AST) IUnit/L 15-37 SGPT/ALT (test code=ALT) IUnit/L 12-78 ALKALINE PHOSPHATASE TOTAL (test code=ALKP) IUnit/L 45-117 [id number] 21:50:00* Test Item Value Reference Range Comments TROPONIN-I (test code=TROPI) ng/mL 0-0.045 CBC W/AUTO [id number] 21:39:00* Test Item Value Reference Range Comments WHITE BLOOD CELL (test code=WBC) 7.7 K/mm3 4.5-12.5 RED BLOOD CELL (test code=RBC) 2.96 mill/mm3 3.7-5.2 HEMOGLOBIN (test code=HGB) 9.4 gram/dL 11.5-15.5 HEMATOCRIT (test code=HCT) 29.2 % 36.0-46.0 MEAN CELL VOLUME (test code=MCV) 98.6 fL 80-98 MEAN CELL HGB (test code=MCH) 31.8 picogram 27.0-33.0 MEAN CELL HGB CONCETRATION (test code=MCHC) 32.2 gram/dL 33.0-36.0 RED CELL DISTRIBUTION WIDTH (test code=RDW) 18.6 % 11.6-16.2 RED CELL DISTRIBUTION WIDTH SD (test code=RDW-SD) 66.6 fL 37.0-51.0 PLATELET COUNT (test code=PLT) 231 K/mm3 150-450 MEAN PLATELET VOLUME (test code=MPV) 10.5 fL 6.7-11.0 NEUTROPHIL % (test code=NT%) 79.9 % 39.0-69.0 IMMATURE GRANULOCYTE % (test code=IG%) 0.8 % 0.0-5.0 LYMPHOCYTE % (test code=LY%) 9.6 % 25.0-55.0 MONOCYTE % (test code=MO%) 9.3 % 0.0-10.0 EOSINOPHIL % (test code=EO%) 0.3 % 0.0-5.0 BASOPHIL % (test code=BA%) 0.1 % 0.0-1.0 NUCLEATED RBC % (test code=NRBC%) 0.0 % 0-0 NEUTROPHIL # (test code=NT#) 6.13 K/mm3 1.8-7.7 IMMATURE GRANULOCYTE # (test code=IG#) 0.06 x10 3/uL 0-0.03 LYMPHOCYTE # (test code=LY#) 0.74 K/mm3 1.0-5.0 MONOCYTE # (test code=MO#) 0.71 K/mm3 0-0.8 EOSINOPHIL # (test code=EO#) 0.02 K/mm3 0.0-0.5 BASOPHIL # (test code=BA#) 0.01 K/mm3 0.0-0.2 NUCLEATED RBC # (test code=NRBC#) 0.00 K/mm3 0.0-0.1 MANUAL DIFF REQUIRED (test code=MDIFF) NO, ONLY SCAN NEEDED DIFFERENTIAL [id number] 21:39:00* Test Item Value Reference Range Comments STAIN ACCEPTABILITY (test code=STN ACCEPTABLE) CABOT RINGS (test code=CAB) MORPHOLOGY COMMENT (test code=MOC) PLATELET ESTIMATE (test code=PLTEST) PLATELET MORPHOLOGY (test code=PLTMORPH) CBC W/AUTO [id number] 21:39:00* Test Item Value Reference Range Comments WHITE BLOOD CELL (test code=WBC) 7.7 K/mm3 4.5-12.5 RED BLOOD CELL (test code=RBC) 2.96 mill/mm3 3.7-5.2 HEMOGLOBIN (test code=HGB) 9.4 gram/dL 11.5-15.5 HEMATOCRIT (test code=HCT) 29.2 % 36.0-46.0 MEAN CELL VOLUME (test code=MCV) 98.6 fL 80-98 MEAN CELL HGB (test code=MCH) 31.8 picogram 27.0-33.0 MEAN CELL HGB CONCETRATION (test code=MCHC) 32.2 gram/dL 33.0-36.0 RED CELL DISTRIBUTION WIDTH (test code=RDW) 18.6 % 11.6-16.2 RED CELL DISTRIBUTION WIDTH SD (test code=RDW-SD) 66.6 fL 37.0-51.0 PLATELET COUNT (test code=PLT) 231 K/mm3 150-450 MEAN PLATELET VOLUME (test code=MPV) 10.5 fL 6.7-11.0 NEUTROPHIL % (test code=NT%) 79.9 % 39.0-69.0 IMMATURE GRANULOCYTE % (test code=IG%) 0.8 % 0.0-5.0 LYMPHOCYTE % (test code=LY%) 9.6 % 25.0-55.0 MONOCYTE % (test code=MO%) 9.3 % 0.0-10.0 EOSINOPHIL % (test code=EO%) 0.3 % 0.0-5.0 BASOPHIL % (test code=BA%) 0.1 % 0.0-1.0 NUCLEATED RBC % (test code=NRBC%) 0.0 % 0-0 NEUTROPHIL # (test code=NT#) 6.13 K/mm3 1.8-7.7 IMMATURE GRANULOCYTE # (test code=IG#) 0.06 x10 3/uL 0-0.03 LYMPHOCYTE # (test code=LY#) 0.74 K/mm3 1.0-5.0 MONOCYTE # (test code=MO#) 0.71 K/mm3 0-0.8 EOSINOPHIL # (test code=EO#) 0.02 K/mm3 0.0-0.5 BASOPHIL # (test code=BA#) 0.01 K/mm3 0.0-0.2 NUCLEATED RBC # (test code=NRBC#) 0.00 K/mm3 0.0-0.1 MANUAL DIFF REQUIRED (test code=MDIFF) NO, ONLY SCAN NEEDED DIFFERENTIAL [id number] 21:39:00* Test Item Value Reference Range Comments STAIN ACCEPTABILITY (test code=STN ACCEPTABLE) MORPHOLOGY COMMENT (test code=MOC) PLATELET ESTIMATE (test code=PLTEST) PLATELET MORPHOLOGY (test code=PLTMORPH) CBC W/AUTO [id number] 21:39:00* Test Item Value Reference Range Comments WHITE BLOOD CELL (test code=WBC) 7.7 K/mm3 4.5-12.5 RED BLOOD CELL (test code=RBC) 2.96 mill/mm3 3.7-5.2 HEMOGLOBIN (test code=HGB) 9.4 gram/dL 11.5-15.5 HEMATOCRIT (test code=HCT) 29.2 % 36.0-46.0 MEAN CELL VOLUME (test code=MCV) 98.6 fL 80-98 MEAN CELL HGB (test code=MCH) 31.8 picogram 27.0-33.0 MEAN CELL HGB CONCETRATION (test code=MCHC) 32.2 gram/dL 33.0-36.0 RED CELL DISTRIBUTION WIDTH (test code=RDW) 18.6 % 11.6-16.2 RED CELL DISTRIBUTION WIDTH SD (test code=RDW-SD) 66.6 fL 37.0-51.0 PLATELET COUNT (test code=PLT) 231 K/mm3 150-450 MEAN PLATELET VOLUME (test code=MPV) 10.5 fL 6.7-11.0 NEUTROPHIL % (test code=NT%) 79.9 % 39.0-69.0 IMMATURE GRANULOCYTE % (test code=IG%) 0.8 % 0.0-5.0 LYMPHOCYTE % (test code=LY%) 9.6 % 25.0-55.0 MONOCYTE % (test code=MO%) 9.3 % 0.0-10.0 EOSINOPHIL % (test code=EO%) 0.3 % 0.0-5.0 BASOPHIL % (test code=BA%) 0.1 % 0.0-1.0 NUCLEATED RBC % (test code=NRBC%) 0.0 % 0-0 NEUTROPHIL # (test code=NT#) 6.13 K/mm3 1.8-7.7 IMMATURE GRANULOCYTE # (test code=IG#) 0.06 x10 3/uL 0-0.03 LYMPHOCYTE # (test code=LY#) 0.74 K/mm3 1.0-5.0 MONOCYTE # (test code=MO#) 0.71 K/mm3 0-0.8 EOSINOPHIL # (test code=EO#) 0.02 K/mm3 0.0-0.5 BASOPHIL # (test code=BA#) 0.01 K/mm3 0.0-0.2 NUCLEATED RBC # (test code=NRBC#) 0.00 K/mm3 0.0-0.1 MANUAL DIFF REQUIRED (test code=MDIFF) NO, ONLY SCAN NEEDED DIFFERENTIAL [id number] 21:39:00* Test Item Value Reference Range Comments STAIN ACCEPTABILITY (test code=STN ACCEPTABLE) MORPHOLOGY COMMENT (test code=MOC) PLATELET ESTIMATE (test code=PLTEST) PLATELET MORPHOLOGY (test code=PLTMORPH) CBC W/AUTO [id number] 21:39:00* Test Item Value Reference Range Comments WHITE BLOOD CELL (test code=WBC) 7.7 K/mm3 4.5-12.5 RED BLOOD CELL (test code=RBC) 2.96 mill/mm3 3.7-5.2 HEMOGLOBIN (test code=HGB) 9.4 gram/dL 11.5-15.5 HEMATOCRIT (test code=HCT) 29.2 % 36.0-46.0 MEAN CELL VOLUME (test code=MCV) 98.6 fL 80-98 MEAN CELL HGB (test code=MCH) 31.8 picogram 27.0-33.0 MEAN CELL HGB CONCETRATION (test code=MCHC) 32.2 gram/dL 33.0-36.0 RED CELL DISTRIBUTION WIDTH (test code=RDW) 18.6 % 11.6-16.2 RED CELL DISTRIBUTION WIDTH SD (test code=RDW-SD) 66.6 fL 37.0-51.0 PLATELET COUNT (test code=PLT) 231 K/mm3 150-450 MEAN PLATELET VOLUME (test code=MPV) 10.5 fL 6.7-11.0 NEUTROPHIL % (test code=NT%) 79.9 % 39.0-69.0 IMMATURE GRANULOCYTE % (test code=IG%) 0.8 % 0.0-5.0 LYMPHOCYTE % (test code=LY%) 9.6 % 25.0-55.0 MONOCYTE % (test code=MO%) 9.3 % 0.0-10.0 EOSINOPHIL % (test code=EO%) 0.3 % 0.0-5.0 BASOPHIL % (test code=BA%) 0.1 % 0.0-1.0 NUCLEATED RBC % (test code=NRBC%) 0.0 % 0-0 NEUTROPHIL # (test code=NT#) 6.13 K/mm3 1.8-7.7 IMMATURE GRANULOCYTE # (test code=IG#) 0.06 x10 3/uL 0-0.03 LYMPHOCYTE # (test code=LY#) 0.74 K/mm3 1.0-5.0 MONOCYTE # (test code=MO#) 0.71 K/mm3 0-0.8 EOSINOPHIL # (test code=EO#) 0.02 K/mm3 0.0-0.5 BASOPHIL # (test code=BA#) 0.01 K/mm3 0.0-0.2 NUCLEATED RBC # (test code=NRBC#) 0.00 K/mm3 0.0-0.1 MANUAL DIFF REQUIRED (test code=MDIFF) NO, ONLY SCAN NEEDED DIFFERENTIAL [id number] 21:39:00* Test Item Value Reference Range Comments STAIN ACCEPTABILITY (test code=STN ACCEPTABLE) CABOT RINGS (test code=CAB) MORPHOLOGY COMMENT (test code=MOC) PLATELET ESTIMATE (test code=PLTEST) PLATELET MORPHOLOGY (test code=PLTMORPH) - XR CHEST 1 [id number] 21:30:00 FAX: Kiel Mathew [phone] [place]: St: REG Name: OLEG UMANZOR [facility] : [birth year] 57 Age/S: 58/F [address] [facility] Unit #: [id number] Loc: [place] [address] Phys: Kiel Zelaya MD Acct: [id number] Dis Date: Status: REG ER PHONE #: [phone] Exam Date: 05/06/20190 FAX #: [phone] Reason: CODE SEPSIS EXAMS: CPT CODE: [id number] XR CHEST 1 V [id number] REASON FOR EXAM: CODE SEPSIS Exam Order Date: 05/06/2019 9:11 PM Ordering M.Phil: Kiel Zelaya MD PROCEDURE: - XR CHEST 1 V CO MPARISON: AP chest x-ray March 09, 2019 as well as AP chest x-ray March 02 FINDINGS: IVC filter and left subclavian Port-A-Cath ar e unchanged. There are surgical clips in the right upper abdomen which may be from a prior cholecystectomy. There is an opacity in the left lung base that blunts the costophrenic recess which may represent benoit bsegmental atelectasis and/or small pleural effusion. There is also a patc hy opacity in the right upper lung which may represent a developing infect ion. The remainder of the lungs are grossly clear. Cardiomed iastinal silhouette is normal in size. Degenerative changes of the spine and other bony findings are stable in appearance. IMPRESSION: Patchy opacity in the right upper lung may represent a developing infectious process. Opacity in the left lung base which jorge nts the costophrenic recess may represent subsegmental atelectasis and/o r small pleural effusion. at 2130 Reported and signed by: Ted Sanchez MD CC: Kiel Zelaya MD Technologis t: KRYSTIAN DUCKWORTH RT(R) Trnscrd Date/Time/By: 05/06/2019 (2129) : By: [email or web address] Orig Print D/T: S: 05/06/2019 (2132) PAGE 1 Signed Report PROCALCITONIN (PCT)2019-04-09 13:38:00* Test Item Value Reference Range Comments PROCALCITONIN (PCT) (test code=PROCAL) 0.14 ng/ml Concentration Interpretation (ng/mL) <0.51 Sepsis is not likely. Local bacterial infection is possible. (LOW RISK for progression to Sepsis) 0.51 - 2.00 Sepsis is possible, but other conditions are known to elevate PCT as well. (MODERATE RISK for progression to Sepsis) > 2.00 Sepsis is likely, unless other causes are known. (HIGH RISK for progression to Severe Sepsis or Septic Shock) 10.00 High likelihood of Severe Sepsis or Septic or higher Shock. *Increased PCT levels may not always be related to systemic bacterial infection.*Low PCT levels do not automatically exclude the presence of bacterial infection.*All results should be interpreted taking into account the patients history. BASIC METABOLIC [id number] 13:14:00* Test Item Value Reference Range Comments SODIUM (test code=NA) 142 mmol/L 136-145 POTASSIUM (test code=K) 3.9 mmol/L 3.5-5.1 CHLORIDE (test code=CL) 104.0 mmol/L 98-107 CARBON DIOXIDE (test code=CO2) 34.0 mmol/L 21-32 ANION GAP (test code=GAP) 7.9 10-20 GLUCOSE (test code=GLU) 101 mg/dL 74-106 BLOOD UREA NITROGEN (test code=BUN) 10 mg/dL 7-18 GLOMERULAR FILTRATION RATE (test code=GFR) > 60 mL/min >=60 Estimated GFR by using Modified MDRD formula.Chronic kidney disease is defined as either kidney damageor GFR <60 mL/min/1.73 m2 for >3 months. CREATININE (test code=CREAT) 0.20 mg/dL 0.55-1.02 Note change in reference range due to change in reagent. BUN/CREATININE RATIO (test code=BUN/CREA) 50.0 10-20 CALCIUM (test code=CA) 8.3 mg/dL 8.5-10.1 BASIC METABOLIC [id number] 13:07:00* Test Item Value Reference Range Comments SODIUM (test code=NA) 142 mmol/L 136-145 POTASSIUM (test code=K) 3.9 mmol/L 3.5-5.1 CHLORIDE (test code=CL) 104.0 mmol/L 98-107 CARBON DIOXIDE (test code=CO2) mmol/L 21-32 ANION GAP (test code=GAP) 10-20 GLUCOSE (test code=GLU) mg/dL 74-106 BLOOD UREA NITROGEN (test code=BUN) mg/dL 7-18 GLOMERULAR FILTRATION RATE (test code=GFR) mL/min >=60 CREATININE (test code=CREAT) mg/dL 0.55-1.02 BUN/CREATININE RATIO (test code=BUN/CREA) 10-20 CALCIUM (test code=CA) mg/dL 8.5-10.1 [id number] 12:16:00* Test Item Value Reference Range Comments GLUBED (test code=GLUBED) 92 mg/dL 74-106 Performed by certified traffic control operator at [facility] [id number] 06:08:00* Test Item Value Reference Range Comments GLUBED (test code=GLUBED) 105 mg/dL 74-106 Performed by certified traffic control operator at [facility] [id number] 20:38:00* Test Item Value Reference Range Comments GLUBED (test code=GLUBED) 103 mg/dL 74-106 Performed by certified traffic control operator at [facility] [id number] 17:39:00* Test Item Value Reference Range Comments GLUBED (test code=GLUBED) 90 mg/dL 74-106 Performed by certified traffic control operator at [facility] [id number] 12:53:00* Test Item Value Reference Range Comments GLUBED (test code=GLUBED) 92 mg/dL 74-106 Performed by certified traffic control operator at [facility] BASIC METABOLIC [id number] 09:00:00* Test Item Value Reference Range Comments SODIUM (test code=NA) 140 mmol/L 136-145 POTASSIUM (test code=K) 3.3 mmol/L 3.5-5.1 CHLORIDE (test code=CL) 104.0 mmol/L 98-107 CARBON DIOXIDE (test code=CO2) 31.0 mmol/L 21-32 ANION GAP (test code=GAP) 8.3 10-20 GLUCOSE (test code=GLU) 99 mg/dL 74-106 BLOOD UREA NITROGEN (test code=BUN) 10 mg/dL 7-18 GLOMERULAR FILTRATION RATE (test code=GFR) > 60 mL/min >=60 Estimated GFR by using Modified MDRD formula.Chronic kidney disease is defined as either kidney damageor GFR <60 mL/min/1.73 m2 for >3 months. CREATININE (test code=CREAT) 0.20 mg/dL 0.55-1.02 Note change in reference range due to change in reagent. BUN/CREATININE RATIO (test code=BUN/CREA) 50.0 10-20 CALCIUM (test code=CA) 7.3 mg/dL 8.5-10.1 BASIC METABOLIC [id number] 08:53:00* Test Item Value Reference Range Comments SODIUM (test code=NA) 140 mmol/L 136-145 POTASSIUM (test code=K) 3.3 mmol/L 3.5-5.1 CHLORIDE (test code=CL) 104.0 mmol/L 98-107 CARBON DIOXIDE (test code=CO2) mmol/L 21-32 ANION GAP (test code=GAP) 10-20 GLUCOSE (test code=GLU) mg/dL 74-106 BLOOD UREA NITROGEN (test code=BUN) mg/dL 7-18 GLOMERULAR FILTRATION RATE (test code=GFR) mL/min >=60 CREATININE (test code=CREAT) mg/dL 0.55-1.02 BUN/CREATININE RATIO (test code=BUN/CREA) 10-20 CALCIUM (test code=CA) mg/dL 8.5-10.1 CBC W/O [id number] 08:42:00* Test Item Value Reference Range Comments WHITE BLOOD CELL (test code=WBC) 6.9 K/mm3 4.5-12.5 RED BLOOD CELL (test code=RBC) 3.67 mill/mm3 3.7-5.2 HEMOGLOBIN (test code=HGB) 10.8 gram/dL 11.5-15.5 HEMATOCRIT (test code=HCT) 34.1 % 36.0-46.0 MEAN CELL VOLUME (test code=MCV) 92.9 fL 80-98 MEAN CELL HGB (test code=MCH) 29.4 picogram 27.0-33.0 MEAN CELL HGB CONCETRATION (test code=MCHC) 31.7 gram/dL 33.0-36.0 RED CELL DISTRIBUTION WIDTH (test code=RDW) 17.6 % 11.6-16.2 PLATELET COUNT (test code=PLT) 134 K/mm3 150-450 MEAN PLATELET VOLUME (test code=MPV) 10.5 fL 6.7-11.0 [id number] 07:20:00* Test Item Value Reference Range Comments GLUBED (test code=GLUBED) 108 mg/dL 74-106 Performed by certified traffic control operator at [facility] [id number] 05:17:00* Test Item Value Reference Range Comments MAGNESIUM (test code=MAG) 1.9 mg/dL 1.8-2.4 [id number] 21:34:00* Test Item Value Reference Range Comments GLUBED (test code=GLUBED) 105 mg/dL 74-106 Performed by certified traffic control operator at [facility] [id number] 17:16:00* Test Item Value Reference Range Comments GLUBED (test code=GLUBED) 110 mg/dL 74-106 Performed by certified traffic control operator at [facility] [id number] 17:16:00* Test Item Value Reference Range Comments GLUBED (test code=GLUBED) 102 mg/dL 74-106 Performed by certified traffic control operator at [facility] [id number] 12:29:00* Test Item Value Reference Range Comments GLUBED (test code=GLUBED) 91 mg/dL 74-106 Performed by certified traffic control operator at [facility] BASIC METABOLIC [id number] 09:18:00* Test Item Value Reference Range Comments SODIUM (test code=NA) 141 mmol/L 136-145 POTASSIUM (test code=K) 3.0 mmol/L 3.5-5.1 CHLORIDE (test code=CL) 108.0 mmol/L 98-107 CARBON DIOXIDE (test code=CO2) 28.0 mmol/L 21-32 ANION GAP (test code=GAP) 8.0 10-20 GLUCOSE (test code=GLU) 112 mg/dL 74-106 BLOOD UREA NITROGEN (test code=BUN) 9 mg/dL 7-18 GLOMERULAR FILTRATION RATE (test code=GFR) > 60 mL/min >=60 Estimated GFR by using Modified MDRD formula.Chronic kidney disease is defined as either kidney damageor GFR <60 mL/min/1.73 m2 for >3 months. CREATININE (test code=CREAT) 0.20 mg/dL 0.55-1.02 Note change in reference range due to change in reagent. BUN/CREATININE RATIO (test code=BUN/CREA) 45.0 10-20 CALCIUM (test code=CA) 7.8 mg/dL 8.5-10.1 [id number] 09:18:00* Test Item Value Reference Range Comments PHOSPHORUS (test code=PHOS) 3.8 mg/dL 2.5-4.9 [id number] 09:18:00* Test Item Value Reference Range Comments MAGNESIUM (test code=MAG) 1.6 mg/dL 1.8-2.4 [id number] 22:46:00* Test Item Value Reference Range Comments GLUBED (test code=GLUBED) 98 mg/dL 74-106 Performed by certified traffic control operator at [facility] [id number] 17:02:00* Test Item Value Reference Range Comments GLUBED (test code=GLUBED) 83 mg/dL 74-106 Performed by certified traffic control operator at [facility] [id number] 12:58:00* Test Item Value Reference Range Comments GLUBED (test code=GLUBED) 79 mg/dL 74-106 Performed by certified traffic control operator at [facility] HGB [id number] 12:27:00* Test Item Value Reference Range Comments HEMOGLOBIN (test code=HGB) 12.2 gram/dL 11.5-15.5 HEMATOCRIT (test code=HCT) 37.0 % 36.0-46.0 WOUNDCARE IN ROOM CHECK AFTER 15 MIN @V.LAB.SP3 04/06/[id number] 07:28:00* Test Item Value Reference Range Comments GLUBED (test code=GLUBED) 91 mg/dL 74-106 Performed by certified traffic control operator at [facility] [id number] 22:00:00* Test Item Value Reference Range Comments GLUBED (test code=GLUBED) 86 mg/dL 74-106 Performed by certified traffic control operator at [facility] CBC W/AUTO [id number] 21:29:00* Test Item Value Reference Range Comments WHITE BLOOD CELL (test code=WBC) 9.1 K/mm3 4.5-12.5 RED BLOOD CELL (test code=RBC) 4.10 mill/mm3 3.7-5.2 HEMOGLOBIN (test code=HGB) 12.2 gram/dL 11.5-15.5 HEMATOCRIT (test code=HCT) 37.3 % 36.0-46.0 MEAN CELL VOLUME (test code=MCV) 91.0 fL 80-98 RESULT VERIFIED BY REPEAT ANALYSIS MEAN CELL HGB (test code=MCH) 29.8 picogram 27.0-33.0 MEAN CELL HGB CONCETRATION (test code=MCHC) 32.7 gram/dL 33.0-36.0 RED CELL DISTRIBUTION WIDTH (test code=RDW) 17.5 % 11.6-16.2 RED CELL DISTRIBUTION WIDTH SD (test code=RDW-SD) 50.7 fL 37.0-51.0 PLATELET COUNT (test code=PLT) 207 K/mm3 150-450 RESULT VERIFIED BY REPEAT ANALYSIS MEAN PLATELET VOLUME (test code=MPV) 10.0 fL 6.7-11.0 NEUTROPHIL % (test code=NT%) 77.8 % 39.0-69.0 IMMATURE GRANULOCYTE % (test code=IG%) 3.0 % 0.0-5.0 LYMPHOCYTE % (test code=LY%) 6.9 % 25.0-55.0 MONOCYTE % (test code=MO%) 11.9 % 0.0-10.0 EOSINOPHIL % (test code=EO%) 0.1 % 0.0-5.0 BASOPHIL % (test code=BA%) 0.3 % 0.0-1.0 NUCLEATED RBC % (test code=NRBC%) 0.0 % 0-0 NEUTROPHIL # (test code=NT#) 7.04 K/mm3 1.8-7.7 IMMATURE GRANULOCYTE # (test code=IG#) 0.27 x10 3/uL 0-0.03 LYMPHOCYTE # (test code=LY#) 0.62 K/mm3 1.0-5.0 MONOCYTE # (test code=MO#) 1.08 K/mm3 0-0.8 EOSINOPHIL # (test code=EO#) 0.01 K/mm3 0.0-0.5 BASOPHIL # (test code=BA#) 0.03 K/mm3 0.0-0.2 NUCLEATED RBC # (test code=NRBC#) 0.00 K/mm3 0.0-0.1 [id number] 16:46:00* Test Item Value Reference Range Comments GLUBED (test code=GLUBED) 93 mg/dL 74-106 Performed by certified traffic control operator at [facility] [id number] 12:02:00* Test Item Value Reference Range Comments GLUBED (test code=GLUBED) 85 mg/dL 74-106 Performed by certified traffic control operator at [facility] [id number] 09:01:00* Test Item Value Reference Range Comments MAGNESIUM (test code=MAG) 1.8 mg/dL 1.8-2.4 SPECIMEN COMMENTS: please add on to AM labBASIC METABOLIC [id number] 06:23:00* Test Item Value Reference Range Comments SODIUM (test code=NA) 143 mmol/L 136-145 POTASSIUM (test code=K) 4.1 mmol/L 3.5-5.1 CHLORIDE (test code=CL) 114.0 mmol/L 98-107 CARBON DIOXIDE (test code=CO2) 21.0 mmol/L 21-32 ANION GAP (test code=GAP) 12.1 10-20 GLUCOSE (test code=GLU) 91 mg/dL 74-106 BLOOD UREA NITROGEN (test code=BUN) 12 mg/dL 7-18 GLOMERULAR FILTRATION RATE (test code=GFR) > 60 mL/min >=60 Estimated GFR by using Modified MDRD formula.Chronic kidney disease is defined as either kidney damageor GFR <60 mL/min/1.73 m2 for >3 months. CREATININE (test code=CREAT) 0.20 mg/dL 0.55-1.02 Note change in reference range due to change in reagent. BUN/CREATININE RATIO (test code=BUN/CREA) 60.0 10-20 CALCIUM (test code=CA) 7.4 mg/dL 8.5-10.1 [id number] 06:17:00* Test Item Value Reference Range Comments GLUBED (test code=GLUBED) 88 mg/dL 74-106 Performed by certified traffic control operator at [facility] BASIC METABOLIC [id number] 06:17:00* Test Item Value Reference Range Comments SODIUM (test code=NA) 143 mmol/L 136-145 POTASSIUM (test code=K) 4.1 mmol/L 3.5-5.1 CHLORIDE (test code=CL) 114.0 mmol/L 98-107 CARBON DIOXIDE (test code=CO2) mmol/L 21-32 ANION GAP (test code=GAP) 10-20 GLUCOSE (test code=GLU) mg/dL 74-106 BLOOD UREA NITROGEN (test code=BUN) mg/dL 7-18 GLOMERULAR FILTRATION RATE (test code=GFR) mL/min >=60 CREATININE (test code=CREAT) mg/dL 0.55-1.02 BUN/CREATININE RATIO (test code=BUN/CREA) 10-20 CALCIUM (test code=CA) mg/dL 8.5-10.1 CBC W/O [id number] 06:13:00* Test Item Value Reference Range Comments WHITE BLOOD CELL (test code=WBC) 6.2 K/mm3 4.5-12.5 RED BLOOD CELL (test code=RBC) 4.00 mill/mm3 3.7-5.2 HEMOGLOBIN (test code=HGB) 12.0 gram/dL 11.5-15.5 RESULT VERIFIED BY REPEAT ANALYSIS HEMATOCRIT (test code=HCT) 40.1 % 36.0-46.0 MEAN CELL VOLUME (test code=MCV) 100.3 fL 80-98 RESULT VERIFIED BY REPEAT ANALYSIS MEAN CELL HGB (test code=MCH) 30.0 picogram 27.0-33.0 MEAN CELL HGB CONCETRATION (test code=MCHC) 29.9 gram/dL 33.0-36.0 RED CELL DISTRIBUTION WIDTH (test code=RDW) 18.0 % 11.6-16.2 PLATELET COUNT (test code=PLT) 86 K/mm3 150-450 RESULT VERIFIED BY REPEAT ANALYSIS MEAN PLATELET VOLUME (test code=MPV) 10.9 fL 6.7-11.0 [id number] 23:25:00* Test Item Value Reference Range Comments GLUBED (test code=GLUBED) 91 mg/dL 74-106 Performed by certified traffic control operator at [facility] [id number] 16:52:00 RUN DATE: 04/04/19 [facility] - Lab PAGE 1 RUN TIME: 1652 Specimen Inqui ry RUN USER: INTERFACE PATIENT: OLEG STEINER ACCT #: V [id number] LOC: [facility] U #: [id number] AGE/SX: 58/F ROOM: 2040 RE03/09/19REG DR: Precious Teague MD : 56 BED: A DIS: STATUS: ADM IN TLOC: SPEC #: [id number] RECD: 04/03/19 STATUS: SIVAN REQ #: [id number] THOMPSON: 04/02/19- DR: Lanre Rucker MD ENTERED: 04/03/19 SP TYPE: STOMACH OTHR DR: Sarah Moreno MD, David MD Goldsmith, William W DO Gopalakrishnan,Sanjay Alfred MD, Nadeem MD Rasheed, Amir A MDORDERED: GROSS COPIES TO: Lanre Rucker MD [address] [place], [place] [id number] Sarah Moreno MD [address] [place] [address] Faisal Spain MD [address] [place], [place] [address] Yosi Mendez DO [address] [place] [address] Jourdan mazariegosTalisha canales [address] [place], [place] [phone] Sanjay Fox MD [address] [facility] [place] [phone] [place] [address] [place] [address] CONTINUED ON NEXT PAGE RUN D [facility]: 1652 Specimen Inquiry RUN USER: INTERFACE SPEC #: [id number] PATIENT: OBDULIAFREDDIE GILBERTLINE #[id number] (Continued) COPIES TO: (Continued) [place] [address] [facility] [address] [place] [address] PROCEDUR ES: STEVE (04/04/19-1336) TISSUES: GASTRIC ULCER - BX CLINICAL HISTORY COLLECTION DATE: 04/02/19 HEMATEMESIS, DARK STOOLS FINAL DI AGNOSIS Gastric pouch ulcer, biopsy: GASTRIC MUCOSA WITH MILD CHRONIC INFLAMMATION, FRAGMENTS OF ACUTELY INFLAMED GRANULATION TISSUE AND FIB RINOPURULENT EXUDATE COMPATIBLE WITH ULCERATION NEGATIVE FOR HEL ICOBACTER ORGANISMS NEGATIVE FOR INTESTINAL METAPLASIA NEGATIVE FO R MALIGNANCY RRB/darrick D [address], [address] MACROSCOPIC T he specimen is received in formalin, labeled with the patient's name, christo ed as "gastric pouch ulcer biopsy", and consists of multiple fragments of more biopsy tissue measuring 0.8 x 0.5 x 0.2 cm, entirely submitted in a single aurea sette for H E and giemsa stains. GROSS PERFORMED AT [facility] [address] [place] [address] (p)[phone] MICROSCOPIC All of the stains, including any controls performed, stain appropriately. MICROSCOPIC PERFORMED AT [facility] CONTINUED ON NEXT PAGE RUN DATE: 04/04/19 [facility] - Lab PAGE 3 RUN TIME: 1651 Specimen Inquiry RUN USER: INTERFACE SPEC #: [id number] PATIENT: OLEG STEINER #[id number] (Continued)------ ------ MICROSCOPIC (Continued) [address] [facility] [address] (P)[phone] PERFORMING SITE Diagnosis perform ed at: [facility] [address] [facility] [place] [address] Signed SIGNATURE ON FILE Minh Matthews MD 04/04/19 1652 END OF REPORT [id number] 16:37:00* Test Item Value Reference Range Comments GLUBED (test code=GLUBED) 85 mg/dL 74-106 Performed by certified traffic control operator at [facility] BASIC METABOLIC [id number] 14:39:00* Test Item Value Reference Range Comments SODIUM (test code=NA) 144 mmol/L 136-145 POTASSIUM (test code=K) 3.9 mmol/L 3.5-5.1 CHLORIDE (test code=CL) 113.0 mmol/L 98-107 CARBON DIOXIDE (test code=CO2) 24.0 mmol/L 21-32 ANION GAP (test code=GAP) 10.9 10-20 GLUCOSE (test code=GLU) 95 mg/dL 74-106 BLOOD UREA NITROGEN (test code=BUN) 12 mg/dL 7-18 GLOMERULAR FILTRATION RATE (test code=GFR) > 60 mL/min >=60 Estimated GFR by using Modified MDRD formula.Chronic kidney disease is defined as either kidney damageor GFR <60 mL/min/1.73 m2 for >3 months. CREATININE (test code=CREAT) 0.30 mg/dL 0.55-1.02 Note change in reference range due to change in reagent. BUN/CREATININE RATIO (test code=BUN/CREA) 40.0 1020 CALCIUM (test code=CA) 7.6 mg/dL 8.5-10.1 [id number] 12:07:00* Test Item Value Reference Range Comments GLUBED (test code=GLUBED) 93 mg/dL 74-106 Performed by certified traffic control operator at [facility] [id number] 06:56:00* Test Item Value Reference Range Comments GLUBED (test code=GLUBED) 89 mg/dL 74-106 Performed by certified traffic control operator at [facility] PROCALCITONIN (PCT)2019-04-04 03:42:00* Test Item Value Reference Range Comments PROCALCITONIN (PCT) (test code=PROCAL) 0.18 ng/ml Concentration Interpretation (ng/mL) <0.51 Sepsis is not likely. Local bacterial infection is possible. (LOW RISK for progression to Sepsis) 0.51 - 2.00 Sepsis is possible, but other conditions are known to elevate PCT as well. (MODERATE RISK for progression to Sepsis) > 2.00 Sepsis is likely, unless other causes are known. (HIGH RISK for progression to Severe Sepsis or Septic Shock) 10.00 High likelihood of Severe Sepsis or Septic or higher Shock. *Increased PCT levels may not always be related to systemic bacterial infection.*Low PCT levels do not automatically exclude the presence of bacterial infection.*All results should be interpreted taking into account the patients history. B-TYPE NATRIURETIC [id number] 03:34:00* Test Item Value Reference Range Comments B-TYPE NATRIURETIC PEPTIDE (test code=BNP) 197.04 pgram/mL 0-100 BASIC METABOLIC [id number] 03:33:00* Test Item Value Reference Range Comments SODIUM (test code=NA) 144 mmol/L 136-145 POTASSIUM (test code=K) 3.4 mmol/L 3.5-5.1 CHLORIDE (test code=CL) 113.0 mmol/L 98-107 CARBON DIOXIDE (test code=CO2) 26.0 mmol/L 21-32 ANION GAP (test code=GAP) 8.4 10-20 GLUCOSE (test code=GLU) 91 mg/dL 74-106 BLOOD UREA NITROGEN (test code=BUN) 12 mg/dL 7-18 GLOMERULAR FILTRATION RATE (test code=GFR) > 60 mL/min >=60 Estimated GFR by using Modified MDRD formula.Chronic kidney disease is defined as either kidney damageor GFR <60 mL/min/1.73 m2 for >3 months. CREATININE (test code=CREAT) 0.20 mg/dL 0.55-1.02 Note change in reference range due to change in reagent. BUN/CREATININE RATIO (test code=BUN/CREA) 60.0 10-20 CALCIUM (test code=CA) 7.4 mg/dL 8.5-10.1 [id number] 03:33:00* Test Item Value Reference Range Comments MAGNESIUM (test code=MAG) 1.4 mg/dL 1.8-2.4 CBC W/MANUAL [id number] 03:28:00* Test Item Value Reference Range Comments WHITE BLOOD CELL (test code=WBC) 6.8 K/mm3 4.5-12.5 RED BLOOD CELL (test code=RBC) 2.58 mill/mm3 3.7-5.2 HEMOGLOBIN (test code=HGB) 7.6 gram/dL 11.5-15.5 HEMATOCRIT (test code=HCT) 24.0 % 36.0-46.0 MEAN CELL VOLUME (test code=MCV) 93.0 fL 80-98 MEAN CELL HGB (test code=MCH) 29.5 picogram 27.0-33.0 MEAN CELL HGB CONCETRATION (test code=MCHC) 31.7 gram/dL 33.0-36.0 RED CELL DISTRIBUTION WIDTH (test code=RDW) 18.7 % 11.6-16.2 RED CELL DISTRIBUTION WIDTH SD (test code=RDW-SD) 56.4 fL 37.0-51.0 PLATELET COUNT (test code=PLT) 174 K/mm3 150-450 MEAN PLATELET VOLUME (test code=MPV) 11.0 fL 6.7-11.0 IMMATURE GRANULOCYTE % (test code=IG%) 5.6 % 0.0-5.0 "The appearance of immature granulocytes (myelocytes,pro-myelocytes, meta-myelocytes) in the peripheral blood ofnon- individuals can indicate a response toinfection, inflammation, or other stimulus to the bonemarrow" NUCLEATED RBC % (test code=NRBC%) 0.0 % 0-0 NEUTROPHIL # (test code=NT#) 4.96 K/mm3 1.8-7.7 IMMATURE GRANULOCYTE # (test code=IG#) 0.38 x10 3/uL 0-0.03 LYMPHOCYTE # (test code=LY#) 0.53 K/mm3 1.0-5.0 MONOCYTE # (test code=MO#) 0.88 K/mm3 0-0.8 EOSINOPHIL # (test code=EO#) 0.03 K/mm3 0.0-0.5 BASOPHIL # (test code=BA#) 0.01 K/mm3 0.0-0.2 NUCLEATED RBC # (test code=NRBC#) 0.00 K/mm3 0.0-0.1 MANUAL DIFF REQUIRED (test code=MDIFF) YES STAIN ACCEPTABILITY (test code=STN ACCEPTABLE) STAIN ACCEPTABLE TOTAL CELLS COUNTED (test code=TCC) 115 #CELLS SEGMENTED NEUTROPHILS (test code=SEG) 79.1 % 39-69 BAND NEUTROPHIL (test code=BAND) 0 % 0-10 LYMPHOCYTE (test code=LYMPH) 8.7 % 25-55 REACTIVE LYMPH (test code=RELYMPH) 0 % MONOCYTE (test code=MON) 11.3 % 0-10 EOSINOPHIL (test code=EOS) 0 % 0.0-5.0 BASOPHIL (test code=BASO) 0 % 0-1.0 METAMYELOCYTE (test code=META) 0 % 0-0 MYELOCYTE (test code=MYELO) 0.9 % 0.0-0.0 PROMYELOCYTE (test code=PROM) 0 % 0-0 ANISOCYTOSIS (test code=ANISO) 1+ MACROCYTOSIS (test code=MACR) 1+ PLATELET ESTIMATE (test code=PLTEST) ADEQUATE PLATELET MORPHOLOGY (test code=PLTMORPH) NORMAL IMMATURE FORMS (test code=IMMAT) 0 % 0-0 BASIC METABOLIC [id number] 03:19:00* Test Item Value Reference Range Comments SODIUM (test code=NA) 144 mmol/L 136-145 POTASSIUM (test code=K) 3.4 mmol/L 3.5-5.1 CHLORIDE (test code=CL) 113.0 mmol/L 98-107 CARBON DIOXIDE (test code=CO2) mmol/L 21-32 ANION GAP (test code=GAP) 10-20 GLUCOSE (test code=GLU) mg/dL 74-106 BLOOD UREA NITROGEN (test code=BUN) mg/dL 7-18 GLOMERULAR FILTRATION RATE (test code=GFR) mL/min >=60 CREATININE (test code=CREAT) mg/dL 0.55-1.02 BUN/CREATININE RATIO (test code=BUN/CREA) 10-20 CALCIUM (test code=CA) mg/dL 8.5-10.1 [id number] 03:19:00* Test Item Value Reference Range Comments MAGNESIUM (test code=MAG) mg/dL 1.8-2.4 CBC W/MANUAL [id number] 03:15:00* Test Item Value Reference Range Comments WHITE BLOOD CELL (test code=WBC) 6.8 K/mm3 4.5-12.5 RED BLOOD CELL (test code=RBC) 2.58 mill/mm3 3.7-5.2 HEMOGLOBIN (test code=HGB) 7.6 gram/dL 11.5-15.5 HEMATOCRIT (test code=HCT) 24.0 % 36.0-46.0 MEAN CELL VOLUME (test code=MCV) 93.0 fL 80-98 MEAN CELL HGB (test code=MCH) 29.5 picogram 27.0-33.0 MEAN CELL HGB CONCETRATION (test code=MCHC) 31.7 gram/dL 33.0-36.0 RED CELL DISTRIBUTION WIDTH (test code=RDW) 18.7 % 11.6-16.2 RED CELL DISTRIBUTION WIDTH SD (test code=RDW-SD) 56.4 fL 37.0-51.0 PLATELET COUNT (test code=PLT) 174 K/mm3 150-450 MEAN PLATELET VOLUME (test code=MPV) 11.0 fL 6.7-11.0 IMMATURE GRANULOCYTE % (test code=IG%) 5.6 % 0.0-5.0 "The appearance of immature granulocytes (myelocytes,pro-myelocytes, meta-myelocytes) in the peripheral blood ofnon- individuals can indicate a response toinfection, inflammation, or other stimulus to the bonemarrow" NUCLEATED RBC % (test code=NRBC%) 0.0 % 0-0 NEUTROPHIL # (test code=NT#) 4.96 K/mm3 1.8-7.7 IMMATURE GRANULOCYTE # (test code=IG#) 0.38 x10 3/uL 0-0.03 LYMPHOCYTE # (test code=LY#) 0.53 K/mm3 1.0-5.0 MONOCYTE # (test code=MO#) 0.88 K/mm3 0-0.8 EOSINOPHIL # (test code=EO#) 0.03 K/mm3 0.0-0.5 BASOPHIL # (test code=BA#) 0.01 K/mm3 0.0-0.2 NUCLEATED RBC # (test code=NRBC#) 0.00 K/mm3 0.0-0.1 MANUAL DIFF REQUIRED (test code=MDIFF) YES STAIN ACCEPTABILITY (test code=STN ACCEPTABLE) TOTAL CELLS COUNTED (test code=TCC) #CELLS SEGMENTED NEUTROPHILS (test code=SEG) % 39-69 LYMPHOCYTE (test code=LYMPH) % 25-55 MONOCYTE (test code=MON) % 0-10 EOSINOPHIL (test code=EOS) % 0.0-5.0 CABOT RINGS (test code=CAB) MORPHOLOGY COMMENT (test code=MOC) PLATELET ESTIMATE (test code=PLTEST) PLATELET MORPHOLOGY (test code=PLTMORPH) CBC W/MANUAL [id number] 03:15:00* Test Item Value Reference Range Comments WHITE BLOOD CELL (test code=WBC) 6.8 K/mm3 4.5-12.5 RED BLOOD CELL (test code=RBC) 2.58 mill/mm3 3.7-5.2 HEMOGLOBIN (test code=HGB) 7.6 gram/dL 11.5-15.5 HEMATOCRIT (test code=HCT) 24.0 % 36.0-46.0 MEAN CELL VOLUME (test code=MCV) 93.0 fL 80-98 MEAN CELL HGB (test code=MCH) 29.5 picogram 27.0-33.0 MEAN CELL HGB CONCETRATION (test code=MCHC) 31.7 gram/dL 33.0-36.0 RED CELL DISTRIBUTION WIDTH (test code=RDW) 18.7 % 11.6-16.2 RED CELL DISTRIBUTION WIDTH SD (test code=RDW-SD) 56.4 fL 37.0-51.0 PLATELET COUNT (test code=PLT) 174 K/mm3 150-450 MEAN PLATELET VOLUME (test code=MPV) 11.0 fL 6.7-11.0 IMMATURE GRANULOCYTE % (test code=IG%) 5.6 % 0.0-5.0 "The appearance of immature granulocytes (myelocytes,pro-myelocytes, meta-myelocytes) in the peripheral blood ofnon- individuals can indicate a response toinfection, inflammation, or other stimulus to the bonemarrow" NUCLEATED RBC % (test code=NRBC%) 0.0 % 0-0 NEUTROPHIL # (test code=NT#) 4.96 K/mm3 1.8-7.7 IMMATURE GRANULOCYTE # (test code=IG#) 0.38 x10 3/uL 0-0.03 LYMPHOCYTE # (test code=LY#) 0.53 K/mm3 1.0-5.0 MONOCYTE # (test code=MO#) 0.88 K/mm3 0-0.8 EOSINOPHIL # (test code=EO#) 0.03 K/mm3 0.0-0.5 BASOPHIL # (test code=BA#) 0.01 K/mm3 0.0-0.2 NUCLEATED RBC # (test code=NRBC#) 0.00 K/mm3 0.0-0.1 MANUAL DIFF REQUIRED (test code=MDIFF) YES STAIN ACCEPTABILITY (test code=STN ACCEPTABLE) TOTAL CELLS COUNTED (test code=TCC) #CELLS SEGMENTED NEUTROPHILS (test code=SEG) % 39-69 LYMPHOCYTE (test code=LYMPH) % 25-55 MONOCYTE (test code=MON) % 0-10 EOSINOPHIL (test code=EOS) % 0.0-5.0 CABOT RINGS (test code=CAB) MORPHOLOGY COMMENT (test code=MOC) PLATELET ESTIMATE (test code=PLTEST) PLATELET MORPHOLOGY (test code=PLTMORPH) CBC W/MANUAL [id number] 03:15:00* Test Item Value Reference Range Comments WHITE BLOOD CELL (test code=WBC) 6.8 K/mm3 4.5-12.5 RED BLOOD CELL (test code=RBC) 2.58 mill/mm3 3.7-5.2 HEMOGLOBIN (test code=HGB) 7.6 gram/dL 11.5-15.5 HEMATOCRIT (test code=HCT) 24.0 % 36.0-46.0 MEAN CELL VOLUME (test code=MCV) 93.0 fL 80-98 MEAN CELL HGB (test code=MCH) 29.5 picogram 27.0-33.0 MEAN CELL HGB CONCETRATION (test code=MCHC) 31.7 gram/dL 33.0-36.0 RED CELL DISTRIBUTION WIDTH (test code=RDW) 18.7 % 11.6-16.2 RED CELL DISTRIBUTION WIDTH SD (test code=RDW-SD) 56.4 fL 37.0-51.0 PLATELET COUNT (test code=PLT) 174 K/mm3 150-450 MEAN PLATELET VOLUME (test code=MPV) 11.0 fL 6.7-11.0 IMMATURE GRANULOCYTE % (test code=IG%) 5.6 % 0.0-5.0 "The appearance of immature granulocytes (myelocytes,pro-myelocytes, meta-myelocytes) in the peripheral blood ofnon- individuals can indicate a response toinfection, inflammation, or other stimulus to the bonemarrow" NUCLEATED RBC % (test code=NRBC%) 0.0 % 0-0 NEUTROPHIL # (test code=NT#) 4.96 K/mm3 1.8-7.7 IMMATURE GRANULOCYTE # (test code=IG#) 0.38 x10 3/uL 0-0.03 LYMPHOCYTE # (test code=LY#) 0.53 K/mm3 1.0-5.0 MONOCYTE # (test code=MO#) 0.88 K/mm3 0-0.8 EOSINOPHIL # (test code=EO#) 0.03 K/mm3 0.0-0.5 BASOPHIL # (test code=BA#) 0.01 K/mm3 0.0-0.2 NUCLEATED RBC # (test code=NRBC#) 0.00 K/mm3 0.0-0.1 MANUAL DIFF REQUIRED (test code=MDIFF) YES STAIN ACCEPTABILITY (test code=STN ACCEPTABLE) TOTAL CELLS COUNTED (test code=TCC) #CELLS SEGMENTED NEUTROPHILS (test code=SEG) % 39-69 LYMPHOCYTE (test code=LYMPH) % 25-55 MONOCYTE (test code=MON) % 0-10 EOSINOPHIL (test code=EOS) % 0.0-5.0 MORPHOLOGY COMMENT (test code=MOC) PLATELET ESTIMATE (test code=PLTEST) PLATELET MORPHOLOGY (test code=PLTMORPH) CBC W/MANUAL [id number] 03:15:00* Test Item Value Reference Range Comments WHITE BLOOD CELL (test code=WBC) 6.8 K/mm3 4.5-12.5 RED BLOOD CELL (test code=RBC) 2.58 mill/mm3 3.7-5.2 HEMOGLOBIN (test code=HGB) 7.6 gram/dL 11.5-15.5 HEMATOCRIT (test code=HCT) 24.0 % 36.0-46.0 MEAN CELL VOLUME (test code=MCV) 93.0 fL 80-98 MEAN CELL HGB (test code=MCH) 29.5 picogram 27.0-33.0 MEAN CELL HGB CONCETRATION (test code=MCHC) 31.7 gram/dL 33.0-36.0 RED CELL DISTRIBUTION WIDTH (test code=RDW) 18.7 % 11.6-16.2 RED CELL DISTRIBUTION WIDTH SD (test code=RDW-SD) 56.4 fL 37.0-51.0 PLATELET COUNT (test code=PLT) 174 K/mm3 150-450 MEAN PLATELET VOLUME (test code=MPV) 11.0 fL 6.7-11.0 IMMATURE GRANULOCYTE % (test code=IG%) 5.6 % 0.0-5.0 "The appearance of immature granulocytes (myelocytes,pro-myelocytes, meta-myelocytes) in the peripheral blood ofnon- individuals can indicate a response toinfection, inflammation, or other stimulus to the bonemarrow" NUCLEATED RBC % (test code=NRBC%) 0.0 % 0-0 NEUTROPHIL # (test code=NT#) 4.96 K/mm3 1.8-7.7 IMMATURE GRANULOCYTE # (test code=IG#) 0.38 x10 3/uL 0-0.03 LYMPHOCYTE # (test code=LY#) 0.53 K/mm3 1.0-5.0 MONOCYTE # (test code=MO#) 0.88 K/mm3 0-0.8 EOSINOPHIL # (test code=EO#) 0.03 K/mm3 0.0-0.5 BASOPHIL # (test code=BA#) 0.01 K/mm3 0.0-0.2 NUCLEATED RBC # (test code=NRBC#) 0.00 K/mm3 0.0-0.1 MANUAL DIFF REQUIRED (test code=MDIFF) YES STAIN ACCEPTABILITY (test code=STN ACCEPTABLE) TOTAL CELLS COUNTED (test code=TCC) #CELLS SEGMENTED NEUTROPHILS (test code=SEG) % 39-69 LYMPHOCYTE (test code=LYMPH) % 25-55 MONOCYTE (test code=MON) % 0-10 MORPHOLOGY COMMENT (test code=MOC) PLATELET ESTIMATE (test code=PLTEST) PLATELET MORPHOLOGY (test code=PLTMORPH) CBC W/MANUAL [id number] 03:15:00* Test Item Value Reference Range Comments WHITE BLOOD CELL (test code=WBC) 6.8 K/mm3 4.5-12.5 RED BLOOD CELL (test code=RBC) 2.58 mill/mm3 3.7-5.2 HEMOGLOBIN (test code=HGB) 7.6 gram/dL 11.5-15.5 HEMATOCRIT (test code=HCT) 24.0 % 36.0-46.0 MEAN CELL VOLUME (test code=MCV) 93.0 fL 80-98 MEAN CELL HGB (test code=MCH) 29.5 picogram 27.0-33.0 MEAN CELL HGB CONCETRATION (test code=MCHC) 31.7 gram/dL 33.0-36.0 RED CELL DISTRIBUTION WIDTH (test code=RDW) 18.7 % 11.6-16.2 RED CELL DISTRIBUTION WIDTH SD (test code=RDW-SD) 56.4 fL 37.0-51.0 PLATELET COUNT (test code=PLT) 174 K/mm3 150-450 MEAN PLATELET VOLUME (test code=MPV) 11.0 fL 6.7-11.0 IMMATURE GRANULOCYTE % (test code=IG%) 5.6 % 0.0-5.0 "The appearance of immature granulocytes (myelocytes,pro-myelocytes, meta-myelocytes) in the peripheral blood ofnon- individuals can indicate a response toinfection, inflammation, or other stimulus to the bonemarrow" NUCLEATED RBC % (test code=NRBC%) 0.0 % 0-0 NEUTROPHIL # (test code=NT#) 4.96 K/mm3 1.8-7.7 IMMATURE GRANULOCYTE # (test code=IG#) 0.38 x10 3/uL 0-0.03 LYMPHOCYTE # (test code=LY#) 0.53 K/mm3 1.0-5.0 MONOCYTE # (test code=MO#) 0.88 K/mm3 0-0.8 EOSINOPHIL # (test code=EO#) 0.03 K/mm3 0.0-0.5 BASOPHIL # (test code=BA#) 0.01 K/mm3 0.0-0.2 NUCLEATED RBC # (test code=NRBC#) 0.00 K/mm3 0.0-0.1 MANUAL DIFF REQUIRED (test code=MDIFF) YES STAIN ACCEPTABILITY (test code=STN ACCEPTABLE) TOTAL CELLS COUNTED (test code=TCC) #CELLS SEGMENTED NEUTROPHILS (test code=SEG) % 39-69 LYMPHOCYTE (test code=LYMPH) % 25-55 MONOCYTE (test code=MON) % 0-10 EOSINOPHIL (test code=EOS) % 0.0-5.0 CABOT RINGS (test code=CAB) MORPHOLOGY COMMENT (test code=MOC) PLATELET ESTIMATE (test code=PLTEST) PLATELET MORPHOLOGY (test code=PLTMORPH) [id number] 21:50:00* Test Item Value Reference Range Comments GLUBED (test code=GLUBED) 84 mg/dL 74-106 Performed by certified traffic control operator at [facility] [id number] 17:08:00* Test Item Value Reference Range Comments GLUBED (test code=GLUBED) 105 mg/dL 74-106 Performed by certified traffic control operator at [facility] BASIC METABOLIC [id number] 14:00:00* Test Item Value Reference Range Comments SODIUM (test code=NA) 140 mmol/L 136-145 POTASSIUM (test code=K) 3.9 mmol/L 3.5-5.1 CHLORIDE (test code=CL) 112.0 mmol/L 98-107 CARBON DIOXIDE (test code=CO2) 22.0 mmol/L 21-32 ANION GAP (test code=GAP) 9.9 10-20 GLUCOSE (test code=GLU) 93 mg/dL 74-106 BLOOD UREA NITROGEN (test code=BUN) 15 mg/dL 7-18 GLOMERULAR FILTRATION RATE (test code=GFR) > 60 mL/min >=60 Estimated GFR by using Modified MDRD formula.Chronic kidney disease is defined as either kidney damageor GFR <60 mL/min/1.73 m2 for >3 months. CREATININE (test code=CREAT) 0.20 mg/dL 0.55-1.02 Note change in reference range due to change in reagent. BUN/CREATININE RATIO (test code=BUN/CREA) 75.0 10-20 CALCIUM (test code=CA) 7.7 mg/dL 8.5-10.1 [id number] 14:00:00* Test Item Value Reference Range Comments MAGNESIUM (test code=MAG) 1.7 mg/dL 1.8-2.4 BASIC METABOLIC [id number] 13:54:00* Test Item Value Reference Range Comments SODIUM (test code=NA) 140 mmol/L 136-145 POTASSIUM (test code=K) 3.9 mmol/L 3.5-5.1 CHLORIDE (test code=CL) 112.0 mmol/L 98-107 CARBON DIOXIDE (test code=CO2) mmol/L 21-32 ANION GAP (test code=GAP) 10-20 GLUCOSE (test code=GLU) mg/dL 74-106 BLOOD UREA NITROGEN (test code=BUN) mg/dL 7-18 GLOMERULAR FILTRATION RATE (test code=GFR) mL/min >=60 CREATININE (test code=CREAT) mg/dL 0.55-1.02 BUN/CREATININE RATIO (test code=BUN/CREA) 10-20 CALCIUM (test code=CA) mg/dL 8.5-10.1 [id number] 13:54:00* Test Item Value Reference Range Comments MAGNESIUM (test code=MAG) mg/dL 1.8-2.4 CBC W/AUTO [id number] 12:50:00* Test Item Value Reference Range Comments WHITE BLOOD CELL (test code=WBC) 8.9 K/mm3 4.5-12.5 RED BLOOD CELL (test code=RBC) 2.92 mill/mm3 3.7-5.2 HEMOGLOBIN (test code=HGB) 8.6 gram/dL 11.5-15.5 HEMATOCRIT (test code=HCT) 27.0 % 36.0-46.0 MEAN CELL VOLUME (test code=MCV) 92.5 fL 80-98 MEAN CELL HGB (test code=MCH) 29.5 picogram 27.0-33.0 MEAN CELL HGB CONCETRATION (test code=MCHC) 31.9 gram/dL 33.0-36.0 RED CELL DISTRIBUTION WIDTH (test code=RDW) 18.9 % 11.6-16.2 RED CELL DISTRIBUTION WIDTH SD (test code=RDW-SD) 57.5 fL 37.0-51.0 PLATELET COUNT (test code=PLT) 165 K/mm3 150-450 MEAN PLATELET VOLUME (test code=MPV) 11.5 fL 6.7-11.0 NEUTROPHIL % (test code=NT%) 78.1 % 39.0-69.0 IMMATURE GRANULOCYTE % (test code=IG%) 4.6 % 0.0-5.0 LYMPHOCYTE % (test code=LY%) 7.7 % 25.0-55.0 MONOCYTE % (test code=MO%) 9.1 % 0.0-10.0 EOSINOPHIL % (test code=EO%) 0.2 % 0.0-5.0 BASOPHIL % (test code=BA%) 0.3 % 0.0-1.0 NUCLEATED RBC % (test code=NRBC%) 0.3 % 0-0 NEUTROPHIL # (test code=NT#) 6.93 K/mm3 1.8-7.7 IMMATURE GRANULOCYTE # (test code=IG#) 0.41 x10 3/uL 0-0.03 LYMPHOCYTE # (test code=LY#) 0.68 K/mm3 1.0-5.0 MONOCYTE # (test code=MO#) 0.81 K/mm3 0-0.8 EOSINOPHIL # (test code=EO#) 0.02 K/mm3 0.0-0.5 BASOPHIL # (test code=BA#) 0.03 K/mm3 0.0-0.2 NUCLEATED RBC # (test code=NRBC#) 0.03 K/mm3 0.0-0.1 MANUAL DIFF REQUIRED (test code=MDIFF) NO [id number] 12:24:00* Test Item Value Reference Range Comments GLUBED (test code=GLUBED) 103 mg/dL 74-106 Performed by certified traffic control operator at [facility] [id number] 07:27:00* Test Item Value Reference Range Comments CREATININE (test code=CREAT) 0.30 mg/dL 0.55-1.02 Note change in reference range due to change in reagent. [id number] 05:58:00* Test Item Value Reference Range Comments GLUBED (test code=GLUBED) 92 mg/dL 74-106 Performed by certified traffic control operator at [facility] [id number] 20:48:00* Test Item Value Reference Range Comments GLUBED (test code=GLUBED) 63 mg/dL 74-106 Performed by certified traffic control operator at [facility] PROTHROMBIN [id number] 18:37:00* Test Item Value Reference Range Comments PROTHROMBIN TIME PATIENT (test code=PTP) 12.7 seconds 9.0-14.0 INTERNATIONAL NORMAL RATIO (test code=INR) 1.1 0.8-1.2 The therapeutic range for oral anticoagulant therapy formost indications is an international normalized ratio (INR)of between 2.0 and 3.0. The recommended therapeutic INRrange for various clinical situations is listed below: Clinical Situation INR range Pulmonary e mbolism treatment (2.0-3.0)Venous thrombosis treatmentVenous thrombosis prophylaxis (high risk surgery)Prevention of systemic embolism from: Acute myocardial infarction Valvular heart disease Atrial fibrillation Mechanical prosthetic heart valves (2.5-3.5) STILL RECIEVING BLOOD V.LAB.1 04/02/19 [id number] PATIENT ON ANTICOAG ULANTS? YLIST ANTICOAGULANTS [id number] 18:12:00* Test Item Value Reference Range Comments FIBRINOGEN (test code=FIB) 305 mg/dL 200-400 STILL RECIEVING BLOOD BRUNILDA ShellLAB.1 14206/ 1018HGB HCT 2019-04-02 18:11:00* Test Item Value Reference Range Comments HEMOGLOBIN (test code=HGB) 8.3 gram/dL 11.5-15.5 HEMATOCRIT (test code=HCT) 25.3 % 36.0-46.0 [id number] 16:55:00* Test Item Value Reference Range Comments GLUBED (test code=GLUBED) 61 mg/dL 74-106 Performed by certified traffic control operator at [facility] CBC W/MANUAL [id number] 13:47:00* Test Item Value Reference Range Comments WHITE BLOOD CELL (test code=WBC) 8.4 K/mm3 4.5-12.5 RED BLOOD CELL (test code=RBC) 2.57 mill/mm3 3.7-5.2 HEMOGLOBIN (test code=HGB) 7.6 gram/dL 11.5-15.5 RESULT VERIFIED BY REPEAT ANALYSIS HEMATOCRIT (test code=HCT) 23.6 % 36.0-46.0 MEAN CELL VOLUME (test code=MCV) 91.8 fL 80-98 MEAN CELL HGB (test code=MCH) 29.6 picogram 27.0-33.0 MEAN CELL HGB CONCETRATION (test code=MCHC) 32.2 gram/dL 33.0-36.0 RED CELL DISTRIBUTION WIDTH (test code=RDW) 17.8 % 11.6-16.2 RED CELL DISTRIBUTION WIDTH SD (test code=RDW-SD) 54.0 fL 37.0-51.0 PLATELET COUNT (test code=PLT) 142 K/mm3 150-450 MEAN PLATELET VOLUME (test code=MPV) 11.9 fL 6.7-11.0 IMMATURE GRANULOCYTE % (test code=IG%) 8.5 % 0.0-5.0 "The appearance of immature granulocytes (myelocytes,pro-myelocytes, meta-myelocytes) in the peripheral blood ofnon- individuals can indicate a response toinfection, inflammation, or other stimulus to the bonemarrow" NUCLEATED RBC % (test code=NRBC%) 0.2 % 0-0 NEUTROPHIL # (test code=NT#) 5.47 K/mm3 1.8-7.7 IMMATURE GRANULOCYTE # (test code=IG#) 0.71 x10 3/uL 0-0.03 LYMPHOCYTE # (test code=LY#) 0.90 K/mm3 1.0-5.0 MONOCYTE # (test code=MO#) 1.26 K/mm3 0-0.8 EOSINOPHIL # (test code=EO#) 0.02 K/mm3 0.0-0.5 BASOPHIL # (test code=BA#) 0.02 K/mm3 0.0-0.2 NUCLEATED RBC # (test code=NRBC#) 0.02 K/mm3 0.0-0.1 MANUAL DIFF REQUIRED (test code=MDIFF) YES STAIN ACCEPTABILITY (test code=STN ACCEPTABLE) STAIN ACCEPTABLE TOTAL CELLS COUNTED (test code=TCC) 114 #CELLS SEGMENTED NEUTROPHILS (test code=SEG) 79.8 % 39-69 BAND NEUTROPHIL (test code=BAND) 1.8 % 0-10 LYMPHOCYTE (test code=LYMPH) 3.5 % 25-55 REACTIVE LYMPH (test code=RELYMPH) 0 % MONOCYTE (test code=MON) 9.7 % 0-10 EOSINOPHIL (test code=EOS) 0 % 0.0-5.0 BASOPHIL (test code=BASO) 0 % 0-1.0 METAMYELOCYTE (test code=META) 2.6 % 0-0 MYELOCYTE (test code=MYELO) 2.6 % 0.0-0.0 PROMYELOCYTE (test code=PROM) 0 % 0-0 POLYCHROMASIA (test code=POLC) 1+ HYPOCHROMIA (test code=HYPO) 1+ POIKILOCYTOSIS (test code=POIK) 1+ ANISOCYTOSIS (test code=ANISO) 1+ PLATELET ESTIMATE (test code=PLTEST) SLIGHTLY DECREASED PLATELET MORPHOLOGY (test code=PLTMORPH) NORMAL IMMATURE FORMS (test code=IMMAT) 0 % 0-0 WAS RECEIVING BLOOD. BRUNILDA XIE ([id number] 12:18:00* Test Item Value Reference Range Comments GLUBED (test code=GLUBED) 79 mg/dL 74-106 Performed by certified traffic control operator at [facility] CBC W/MANUAL [id number] 09:13:00* Test Item Value Reference Range Comments WHITE BLOOD CELL (test code=WBC) 8.4 K/mm3 4.5-12.5 RED BLOOD CELL (test code=RBC) 2.57 mill/mm3 3.7-5.2 HEMOGLOBIN (test code=HGB) 7.6 gram/dL 11.5-15.5 RESULT VERIFIED BY REPEAT ANALYSIS HEMATOCRIT (test code=HCT) 23.6 % 36.0-46.0 MEAN CELL VOLUME (test code=MCV) 91.8 fL 80-98 MEAN CELL HGB (test code=MCH) 29.6 picogram 27.0-33.0 MEAN CELL HGB CONCETRATION (test code=MCHC) 32.2 gram/dL 33.0-36.0 RED CELL DISTRIBUTION WIDTH (test code=RDW) 17.8 % 11.6-16.2 RED CELL DISTRIBUTION WIDTH SD (test code=RDW-SD) 54.0 fL 37.0-51.0 PLATELET COUNT (test code=PLT) 142 K/mm3 150-450 MEAN PLATELET VOLUME (test code=MPV) 11.9 fL 6.7-11.0 IMMATURE GRANULOCYTE % (test code=IG%) 8.5 % 0.0-5.0 "The appearance of immature granulocytes (myelocytes,pro-myelocytes, meta-myelocytes) in the peripheral blood ofnon- individuals can indicate a response toinfection, inflammation, or other stimulus to the bonemarrow" NUCLEATED RBC % (test code=NRBC%) 0.2 % 0-0 NEUTROPHIL # (test code=NT#) 5.47 K/mm3 1.8-7.7 IMMATURE GRANULOCYTE # (test code=IG#) 0.71 x10 3/uL 0-0.03 LYMPHOCYTE # (test code=LY#) 0.90 K/mm3 1.0-5.0 MONOCYTE # (test code=MO#) 1.26 K/mm3 0-0.8 EOSINOPHIL # (test code=EO#) 0.02 K/mm3 0.0-0.5 BASOPHIL # (test code=BA#) 0.02 K/mm3 0.0-0.2 NUCLEATED RBC # (test code=NRBC#) 0.02 K/mm3 0.0-0.1 MANUAL DIFF REQUIRED (test code=MDIFF) YES STAIN ACCEPTABILITY (test code=STN ACCEPTABLE) TOTAL CELLS COUNTED (test code=TCC) #CELLS SEGMENTED NEUTROPHILS (test code=SEG) % 39-69 LYMPHOCYTE (test code=LYMPH) % 25-55 MONOCYTE (test code=MON) % 0-10 EOSINOPHIL (test code=EOS) % 0.0-5.0 CABOT RINGS (test code=CAB) MORPHOLOGY COMMENT (test code=MOC) PLATELET ESTIMATE (test code=PLTEST) PLATELET MORPHOLOGY (test code=PLTMORPH) WAS RECEIVING BLOOD. BRUNILDA XIE ([id number])CBC W/MANUAL [id number] 09:13:00* Test Item Value Reference Range Comments WHITE BLOOD CELL (test code=WBC) 8.4 K/mm3 4.5-12.5 RED BLOOD CELL (test code=RBC) 2.57 mill/mm3 3.7-5.2 HEMOGLOBIN (test code=HGB) 7.6 gram/dL 11.5-15.5 RESULT VERIFIED BY REPEAT ANALYSIS HEMATOCRIT (test code=HCT) 23.6 % 36.0-46.0 MEAN CELL VOLUME (test code=MCV) 91.8 fL 80-98 MEAN CELL HGB (test code=MCH) 29.6 picogram 27.0-33.0 MEAN CELL HGB CONCETRATION (test code=MCHC) 32.2 gram/dL 33.0-36.0 RED CELL DISTRIBUTION WIDTH (test code=RDW) 17.8 % 11.6-16.2 RED CELL DISTRIBUTION WIDTH SD (test code=RDW-SD) 54.0 fL 37.0-51.0 PLATELET COUNT (test code=PLT) 142 K/mm3 150-450 MEAN PLATELET VOLUME (test code=MPV) 11.9 fL 6.7-11.0 IMMATURE GRANULOCYTE % (test code=IG%) 8.5 % 0.0-5.0 "The appearance of immature granulocytes (myelocytes,pro-myelocytes, meta-myelocytes) in the peripheral blood ofnon- individuals can indicate a response toinfection, inflammation, or other stimulus to the bonemarrow" NUCLEATED RBC % (test code=NRBC%) 0.2 % 0-0 NEUTROPHIL # (test code=NT#) 5.47 K/mm3 1.8-7.7 IMMATURE GRANULOCYTE # (test code=IG#) 0.71 x10 3/uL 0-0.03 LYMPHOCYTE # (test code=LY#) 0.90 K/mm3 1.0-5.0 MONOCYTE # (test code=MO#) 1.26 K/mm3 0-0.8 EOSINOPHIL # (test code=EO#) 0.02 K/mm3 0.0-0.5 BASOPHIL # (test code=BA#) 0.02 K/mm3 0.0-0.2 NUCLEATED RBC # (test code=NRBC#) 0.02 K/mm3 0.0-0.1 MANUAL DIFF REQUIRED (test code=MDIFF) YES STAIN ACCEPTABILITY (test code=STN ACCEPTABLE) TOTAL CELLS COUNTED (test code=TCC) #CELLS SEGMENTED NEUTROPHILS (test code=SEG) % 39-69 LYMPHOCYTE (test code=LYMPH) % 25-55 MONOCYTE (test code=MON) % 0-10 EOSINOPHIL (test code=EOS) % 0.0-5.0 CABOT RINGS (test code=CAB) MORPHOLOGY COMMENT (test code=MOC) PLATELET ESTIMATE (test code=PLTEST) PLATELET MORPHOLOGY (test code=PLTMORPH) WAS RECEIVING BLOOD. BRUNILDA XIE ([id number])CBC W/MANUAL [id number] 09:13:00* Test Item Value Reference Range Comments WHITE BLOOD CELL (test code=WBC) 8.4 K/mm3 4.5-12.5 RED BLOOD CELL (test code=RBC) 2.57 mill/mm3 3.7-5.2 HEMOGLOBIN (test code=HGB) 7.6 gram/dL 11.5-15.5 RESULT VERIFIED BY REPEAT ANALYSIS HEMATOCRIT (test code=HCT) 23.6 % 36.0-46.0 MEAN CELL VOLUME (test code=MCV) 91.8 fL 80-98 MEAN CELL HGB (test code=MCH) 29.6 picogram 27.0-33.0 MEAN CELL HGB CONCETRATION (test code=MCHC) 32.2 gram/dL 33.0-36.0 RED CELL DISTRIBUTION WIDTH (test code=RDW) 17.8 % 11.6-16.2 RED CELL DISTRIBUTION WIDTH SD (test code=RDW-SD) 54.0 fL 37.0-51.0 PLATELET COUNT (test code=PLT) 142 K/mm3 150-450 MEAN PLATELET VOLUME (test code=MPV) 11.9 fL 6.7-11.0 IMMATURE GRANULOCYTE % (test code=IG%) 8.5 % 0.0-5.0 "The appearance of immature granulocytes (myelocytes,pro-myelocytes, meta-myelocytes) in the peripheral blood ofnon- individuals can indicate a response toinfection, inflammation, or other stimulus to the bonemarrow" NUCLEATED RBC % (test code=NRBC%) 0.2 % 0-0 NEUTROPHIL # (test code=NT#) 5.47 K/mm3 1.8-7.7 IMMATURE GRANULOCYTE # (test code=IG#) 0.71 x10 3/uL 0-0.03 LYMPHOCYTE # (test code=LY#) 0.90 K/mm3 1.0-5.0 MONOCYTE # (test code=MO#) 1.26 K/mm3 0-0.8 EOSINOPHIL # (test code=EO#) 0.02 K/mm3 0.0-0.5 BASOPHIL # (test code=BA#) 0.02 K/mm3 0.0-0.2 NUCLEATED RBC # (test code=NRBC#) 0.02 K/mm3 0.0-0.1 MANUAL DIFF REQUIRED (test code=MDIFF) YES STAIN ACCEPTABILITY (test code=STN ACCEPTABLE) TOTAL CELLS COUNTED (test code=TCC) #CELLS SEGMENTED NEUTROPHILS (test code=SEG) % 39-69 LYMPHOCYTE (test code=LYMPH) % 25-55 MONOCYTE (test code=MON) % 0-10 EOSINOPHIL (test code=EOS) % 0.0-5.0 MORPHOLOGY COMMENT (test code=MOC) PLATELET ESTIMATE (test code=PLTEST) PLATELET MORPHOLOGY (test code=PLTMORPH) WAS RECEIVING BLOOD. BRUNILDA XIE ([id number])CBC W/MANUAL [id number] 09:13:00* Test Item Value Reference Range Comments WHITE BLOOD CELL (test code=WBC) 8.4 K/mm3 4.5-12.5 RED BLOOD CELL (test code=RBC) 2.57 mill/mm3 3.7-5.2 HEMOGLOBIN (test code=HGB) 7.6 gram/dL 11.5-15.5 RESULT VERIFIED BY REPEAT ANALYSIS HEMATOCRIT (test code=HCT) 23.6 % 36.0-46.0 MEAN CELL VOLUME (test code=MCV) 91.8 fL 80-98 MEAN CELL HGB (test code=MCH) 29.6 picogram 27.0-33.0 MEAN CELL HGB CONCETRATION (test code=MCHC) 32.2 gram/dL 33.0-36.0 RED CELL DISTRIBUTION WIDTH (test code=RDW) 17.8 % 11.6-16.2 RED CELL DISTRIBUTION WIDTH SD (test code=RDW-SD) 54.0 fL 37.0-51.0 PLATELET COUNT (test code=PLT) 142 K/mm3 150-450 MEAN PLATELET VOLUME (test code=MPV) 11.9 fL 6.7-11.0 IMMATURE GRANULOCYTE % (test code=IG%) 8.5 % 0.0-5.0 "The appearance of immature granulocytes (myelocytes,pro-myelocytes, meta-myelocytes) in the peripheral blood ofnon- individuals can indicate a response toinfection, inflammation, or other stimulus to the bonemarrow" NUCLEATED RBC % (test code=NRBC%) 0.2 % 0-0 NEUTROPHIL # (test code=NT#) 5.47 K/mm3 1.8-7.7 IMMATURE GRANULOCYTE # (test code=IG#) 0.71 x10 3/uL 0-0.03 LYMPHOCYTE # (test code=LY#) 0.90 K/mm3 1.0-5.0 MONOCYTE # (test code=MO#) 1.26 K/mm3 0-0.8 EOSINOPHIL # (test code=EO#) 0.02 K/mm3 0.0-0.5 BASOPHIL # (test code=BA#) 0.02 K/mm3 0.0-0.2 NUCLEATED RBC # (test code=NRBC#) 0.02 K/mm3 0.0-0.1 MANUAL DIFF REQUIRED (test code=MDIFF) YES STAIN ACCEPTABILITY (test code=STN ACCEPTABLE) TOTAL CELLS COUNTED (test code=TCC) #CELLS SEGMENTED NEUTROPHILS (test code=SEG) % 39-69 LYMPHOCYTE (test code=LYMPH) % 25-55 MONOCYTE (test code=MON) % 0-10 MORPHOLOGY COMMENT (test code=MOC) PLATELET ESTIMATE (test code=PLTEST) PLATELET MORPHOLOGY (test code=PLTMORPH) WAS RECEIVING BLOOD. BRUNILDA XIE ([id number])CBC W/MANUAL [id number] 09:13:00* Test Item Value Reference Range Comments WHITE BLOOD CELL (test code=WBC) 8.4 K/mm3 4.5-12.5 RED BLOOD CELL (test code=RBC) 2.57 mill/mm3 3.7-5.2 HEMOGLOBIN (test code=HGB) 7.6 gram/dL 11.5-15.5 RESULT VERIFIED BY REPEAT ANALYSIS HEMATOCRIT (test code=HCT) 23.6 % 36.0-46.0 MEAN CELL VOLUME (test code=MCV) 91.8 fL 80-98 MEAN CELL HGB (test code=MCH) 29.6 picogram 27.0-33.0 MEAN CELL HGB CONCETRATION (test code=MCHC) 32.2 gram/dL 33.0-36.0 RED CELL DISTRIBUTION WIDTH (test code=RDW) 17.8 % 11.6-16.2 RED CELL DISTRIBUTION WIDTH SD (test code=RDW-SD) 54.0 fL 37.0-51.0 PLATELET COUNT (test code=PLT) 142 K/mm3 150-450 MEAN PLATELET VOLUME (test code=MPV) 11.9 fL 6.7-11.0 IMMATURE GRANULOCYTE % (test code=IG%) 8.5 % 0.0-5.0 "The appearance of immature granulocytes (myelocytes,pro-myelocytes, meta-myelocytes) in the peripheral blood ofnon- individuals can indicate a response toinfection, inflammation, or other stimulus to the bonemarrow" NUCLEATED RBC % (test code=NRBC%) 0.2 % 0-0 NEUTROPHIL # (test code=NT#) 5.47 K/mm3 1.8-7.7 IMMATURE GRANULOCYTE # (test code=IG#) 0.71 x10 3/uL 0-0.03 LYMPHOCYTE # (test code=LY#) 0.90 K/mm3 1.0-5.0 MONOCYTE # (test code=MO#) 1.26 K/mm3 0-0.8 EOSINOPHIL # (test code=EO#) 0.02 K/mm3 0.0-0.5 BASOPHIL # (test code=BA#) 0.02 K/mm3 0.0-0.2 NUCLEATED RBC # (test code=NRBC#) 0.02 K/mm3 0.0-0.1 MANUAL DIFF REQUIRED (test code=MDIFF) YES STAIN ACCEPTABILITY (test code=STN ACCEPTABLE) TOTAL CELLS COUNTED (test code=TCC) #CELLS SEGMENTED NEUTROPHILS (test code=SEG) % 39-69 LYMPHOCYTE (test code=LYMPH) % 25-55 MONOCYTE (test code=MON) % 0-10 EOSINOPHIL (test code=EOS) % 0.0-5.0 CABOT RINGS (test code=CAB) MORPHOLOGY COMMENT (test code=MOC) PLATELET ESTIMATE (test code=PLTEST) PLATELET MORPHOLOGY (test code=PLTMORPH) WAS RECEIVING BLOOD. BRUNILDA XIE ([id number] 06:04:00* Test Item Value Reference Range Comments GLUBED (test code=GLUBED) 94 mg/dL 74-106 Performed by certified traffic control operator at [facility] HGB [id number] 23:04:00* Test Item Value Reference Range Comments HEMOGLOBIN (test code=HGB) 5.6 gram/dL 11.5-15.5 HEMATOCRIT (test code=HCT) 18.1 % 36.0-46.0 Results called to [id number] by [email or web address] 04/01/19 [id number] results verified and read back by Nurse? Y [id number] 20:49:00* Test Item Value Reference Range Comments GLUBED (test code=GLUBED) 108 mg/dL 74-106 Performed by certified traffic control operator at [facility] [id number] 17:52:00* Test Item Value Reference Range Comments GLUBED (test code=GLUBED) 88 mg/dL 74-106 Performed by certified traffic control operator at [facility] [id number] 12:48:00* Test Item Value Reference Range Comments GLUBED (test code=GLUBED) 78 mg/dL 74-106 Performed by certified traffic control operator at [facility] [id number] 08:07:00* Test Item Value Reference Range Comments GLUBED (test code=GLUBED) 64 mg/dL 74-106 [facility] [id number] 08:07:00* Test Item Value Reference Range Comments GLUBED (test code=GLUBED) 58 mg/dL 74-106 [facility] [id number] 08:06:00* Test Item Value Reference Range Comments GLUBED (test code=GLUBED) 116 mg/dL 74-106 Performed by certified traffic control operator at [facility] [id number] 08:06:00* Test Item Value Reference Range Comments GLUBED (test code=GLUBED) 86 mg/dL 74-106 Performed by certified traffic control operator at [facility] [id number] 08:06:00* Test Item Value Reference Range Comments GLUBED (test code=GLUBED) 73 mg/dL 74-106 Performed by certified traffic control operator at [facility] [id number] 08:06:00* Test Item Value Reference Range Comments GLUBED (test code=GLUBED) 77 mg/dL 74-106 Performed by certified traffic control operator at [facility] [id number] 08:05:00* Test Item Value Reference Range Comments GLUBED (test code=GLUBED) 87 mg/dL 74-106 Performed by certified traffic control operator at [facility] [id number] 08:05:00* Test Item Value Reference Range Comments GLUBED (test code=GLUBED) 76 mg/dL 74-106 Performed by certified traffic control operator at [facility] [id number] 08:05:00* Test Item Value Reference Range Comments GLUBED (test code=GLUBED) 79 mg/dL 74-106 Performed by certified traffic control operator at [facility] [id number] 08:05:00* Test Item Value Reference Range Comments GLUBED (test code=GLUBED) 79 mg/dL 74-106 Performed by certified traffic control operator at [facility] [id number] 08:05:00* Test Item Value Reference Range Comments GLUBED (test code=GLUBED) 91 mg/dL 74-106 Performed by certified traffic control operator at [facility] [id number] 08:05:00* Test Item Value Reference Range Comments GLUBED (test code=GLUBED) 88 mg/dL 74-106 Performed by certified traffic control operator at [facility] [id number] 08:04:00* Test Item Value Reference Range Comments GLUBED (test code=GLUBED) 111 mg/dL 74-106 Performed by certified traffic control operator at [facility] [id number] 08:04:00* Test Item Value Reference Range Comments GLUBED (test code=GLUBED) 86 mg/dL 74-106 Performed by certified traffic control operator at [facility] [id number] 08:04:00* Test Item Value Reference Range Comments GLUBED (test code=GLUBED) 95 mg/dL 74-106 Performed by certified traffic control operator at [facility] [id number] 08:04:00* Test Item Value Reference Range Comments GLUBED (test code=GLUBED) 85 mg/dL 74-106 Performed by certified traffic control operator at [facility] [id number] 06:30:00* Test Item Value Reference Range Comments GLUBED (test code=GLUBED) 75 mg/dL 74-106 Performed by certified traffic control operator at [facility] [id number] 21:55:00* Test Item Value Reference Range Comments GLUBED (test code=GLUBED) 87 mg/dL 74-106 Performed by certified traffic control operator at [facility] [id number] 16:59:00* Test Item Value Reference Range Comments GLUBED (test code=GLUBED) 91 mg/dL 74-106 Performed by certified traffic control operator at [facility] CBC W/MANUAL [id number] 12:55:00* Test Item Value Reference Range Comments WHITE BLOOD CELL (test code=WBC) 6.7 K/mm3 4.5-12.5 RED BLOOD CELL (test code=RBC) 2.86 mill/mm3 3.7-5.2 HEMOGLOBIN (test code=HGB) 8.7 gram/dL 11.5-15.5 HEMATOCRIT (test code=HCT) 27.6 % 36.0-46.0 MEAN CELL VOLUME (test code=MCV) 96.5 fL 80-98 MEAN CELL HGB (test code=MCH) 30.4 picogram 27.0-33.0 MEAN CELL HGB CONCETRATION (test code=MCHC) 31.5 gram/dL 33.0-36.0 RED CELL DISTRIBUTION WIDTH (test code=RDW) 16.4 % 11.6-16.2 RED CELL DISTRIBUTION WIDTH SD (test code=RDW-SD) 58.0 fL 37.0-51.0 PLATELET COUNT (test code=PLT) 142 K/mm3 150-450 MEAN PLATELET VOLUME (test code=MPV) 11.9 fL 6.7-11.0 IMMATURE GRANULOCYTE % (test code=IG%) 9.4 % 0.0-5.0 "The appearance of immature granulocytes (myelocytes,pro-myelocytes, meta-myelocytes) in the peripheral blood ofnon- individuals can indicate a response toinfection, inflammation, or other stimulus to the bonemarrow" NUCLEATED RBC % (test code=NRBC%) 0.0 % 0-0 NEUTROPHIL # (test code=NT#) 4.13 K/mm3 1.8-7.7 IMMATURE GRANULOCYTE # (test code=IG#) 0.63 x10 3/uL 0-0.03 LYMPHOCYTE # (test code=LY#) 0.75 K/mm3 1.0-5.0 MONOCYTE # (test code=MO#) 1.12 K/mm3 0-0.8 EOSINOPHIL # (test code=EO#) 0.03 K/mm3 0.0-0.5 BASOPHIL # (test code=BA#) 0.04 K/mm3 0.0-0.2 NUCLEATED RBC # (test code=NRBC#) 0.00 K/mm3 0.0-0.1 MANUAL DIFF REQUIRED (test code=MDIFF) YES STAIN ACCEPTABILITY (test code=STN ACCEPTABLE) STAIN ACCEPTABLE TOTAL CELLS COUNTED (test code=TCC) 100 #CELLS SEGMENTED NEUTROPHILS (test code=SEG) 74 % 39-69 LYMPHOCYTE (test code=LYMPH) 8 % 25-55 MONOCYTE (test code=MON) 16 % 0-10 EOSINOPHIL (test code=EOS) 2 % 0.0-5.0 HYPOCHROMIA (test code=HYPO) 1+ ANISOCYTOSIS (test code=ANISO) 1+ PLATELET ESTIMATE (test code=PLTEST) ADEQUATE PLATELET MORPHOLOGY (test code=PLTMORPH) SIZE VARIABLE [id number] 12:18:00* Test Item Value Reference Range Comments GLUBED (test code=GLUBED) 84 mg/dL 74-106 Performed by certified traffic control operator at [facility] [id number] 09:57:00* Test Item Value Reference Range Comments GLUBED (test code=GLUBED) 95 mg/dL 74-106 Performed by certified traffic control operator at [facility] CBC W/MANUAL [id number] 08:38:00* Test Item Value Reference Range Comments WHITE BLOOD CELL (test code=WBC) 6.7 K/mm3 4.5-12.5 RED BLOOD CELL (test code=RBC) 2.86 mill/mm3 3.7-5.2 HEMOGLOBIN (test code=HGB) 8.7 gram/dL 11.5-15.5 HEMATOCRIT (test code=HCT) 27.6 % 36.0-46.0 MEAN CELL VOLUME (test code=MCV) 96.5 fL 80-98 MEAN CELL HGB (test code=MCH) 30.4 picogram 27.0-33.0 MEAN CELL HGB CONCETRATION (test code=MCHC) 31.5 gram/dL 33.0-36.0 RED CELL DISTRIBUTION WIDTH (test code=RDW) 16.4 % 11.6-16.2 RED CELL DISTRIBUTION WIDTH SD (test code=RDW-SD) 58.0 fL 37.0-51.0 PLATELET COUNT (test code=PLT) 142 K/mm3 150-450 MEAN PLATELET VOLUME (test code=MPV) 11.9 fL 6.7-11.0 IMMATURE GRANULOCYTE % (test code=IG%) 9.4 % 0.0-5.0 "The appearance of immature granulocytes (myelocytes,pro-myelocytes, meta-myelocytes) in the peripheral blood ofnon- individuals can indicate a response toinfection, inflammation, or other stimulus to the bonemarrow" NUCLEATED RBC % (test code=NRBC%) 0.0 % 0-0 NEUTROPHIL # (test code=NT#) 4.13 K/mm3 1.8-7.7 IMMATURE GRANULOCYTE # (test code=IG#) 0.63 x10 3/uL 0-0.03 LYMPHOCYTE # (test code=LY#) 0.75 K/mm3 1.0-5.0 MONOCYTE # (test code=MO#) 1.12 K/mm3 0-0.8 EOSINOPHIL # (test code=EO#) 0.03 K/mm3 0.0-0.5 BASOPHIL # (test code=BA#) 0.04 K/mm3 0.0-0.2 NUCLEATED RBC # (test code=NRBC#) 0.00 K/mm3 0.0-0.1 MANUAL DIFF REQUIRED (test code=MDIFF) YES STAIN ACCEPTABILITY (test code=STN ACCEPTABLE) TOTAL CELLS COUNTED (test code=TCC) #CELLS SEGMENTED NEUTROPHILS (test code=SEG) % 39-69 LYMPHOCYTE (test code=LYMPH) % 25-55 MONOCYTE (test code=MON) % 0-10 EOSINOPHIL (test code=EOS) % 0.0-5.0 CABOT RINGS (test code=CAB) MORPHOLOGY COMMENT (test code=MOC) PLATELET ESTIMATE (test code=PLTEST) PLATELET MORPHOLOGY (test code=PLTMORPH) CBC W/MANUAL [id number] 08:38:00* Test Item Value Reference Range Comments WHITE BLOOD CELL (test code=WBC) 6.7 K/mm3 4.5-12.5 RED BLOOD CELL (test code=RBC) 2.86 mill/mm3 3.7-5.2 HEMOGLOBIN (test code=HGB) 8.7 gram/dL 11.5-15.5 HEMATOCRIT (test code=HCT) 27.6 % 36.0-46.0 MEAN CELL VOLUME (test code=MCV) 96.5 fL 80-98 MEAN CELL HGB (test code=MCH) 30.4 picogram 27.0-33.0 MEAN CELL HGB CONCETRATION (test code=MCHC) 31.5 gram/dL 33.0-36.0 RED CELL DISTRIBUTION WIDTH (test code=RDW) 16.4 % 11.6-16.2 RED CELL DISTRIBUTION WIDTH SD (test code=RDW-SD) 58.0 fL 37.0-51.0 PLATELET COUNT (test code=PLT) 142 K/mm3 150-450 MEAN PLATELET VOLUME (test code=MPV) 11.9 fL 6.7-11.0 IMMATURE GRANULOCYTE % (test code=IG%) 9.4 % 0.0-5.0 "The appearance of immature granulocytes (myelocytes,pro-myelocytes, meta-myelocytes) in the peripheral blood ofnon- individuals can indicate a response toinfection, inflammation, or other stimulus to the bonemarrow" NUCLEATED RBC % (test code=NRBC%) 0.0 % 0-0 NEUTROPHIL # (test code=NT#) 4.13 K/mm3 1.8-7.7 IMMATURE GRANULOCYTE # (test code=IG#) 0.63 x10 3/uL 0-0.03 LYMPHOCYTE # (test code=LY#) 0.75 K/mm3 1.0-5.0 MONOCYTE # (test code=MO#) 1.12 K/mm3 0-0.8 EOSINOPHIL # (test code=EO#) 0.03 K/mm3 0.0-0.5 BASOPHIL # (test code=BA#) 0.04 K/mm3 0.0-0.2 NUCLEATED RBC # (test code=NRBC#) 0.00 K/mm3 0.0-0.1 MANUAL DIFF REQUIRED (test code=MDIFF) YES STAIN ACCEPTABILITY (test code=STN ACCEPTABLE) TOTAL CELLS COUNTED (test code=TCC) #CELLS SEGMENTED NEUTROPHILS (test code=SEG) % 39-69 LYMPHOCYTE (test code=LYMPH) % 25-55 MONOCYTE (test code=MON) % 0-10 EOSINOPHIL (test code=EOS) % 0.0-5.0 CABOT RINGS (test code=CAB) MORPHOLOGY COMMENT (test code=MOC) PLATELET ESTIMATE (test code=PLTEST) PLATELET MORPHOLOGY (test code=PLTMORPH) CBC W/MANUAL [id number] 08:38:00* Test Item Value Reference Range Comments WHITE BLOOD CELL (test code=WBC) 6.7 K/mm3 4.5-12.5 RED BLOOD CELL (test code=RBC) 2.86 mill/mm3 3.7-5.2 HEMOGLOBIN (test code=HGB) 8.7 gram/dL 11.5-15.5 HEMATOCRIT (test code=HCT) 27.6 % 36.0-46.0 MEAN CELL VOLUME (test code=MCV) 96.5 fL 80-98 MEAN CELL HGB (test code=MCH) 30.4 picogram 27.0-33.0 MEAN CELL HGB CONCETRATION (test code=MCHC) 31.5 gram/dL 33.0-36.0 RED CELL DISTRIBUTION WIDTH (test code=RDW) 16.4 % 11.6-16.2 RED CELL DISTRIBUTION WIDTH SD (test code=RDW-SD) 58.0 fL 37.0-51.0 PLATELET COUNT (test code=PLT) 142 K/mm3 150-450 MEAN PLATELET VOLUME (test code=MPV) 11.9 fL 6.7-11.0 IMMATURE GRANULOCYTE % (test code=IG%) 9.4 % 0.0-5.0 "The appearance of immature granulocytes (myelocytes,pro-myelocytes, meta-myelocytes) in the peripheral blood ofnon- individuals can indicate a response toinfection, inflammation, or other stimulus to the bonemarrow" NUCLEATED RBC % (test code=NRBC%) 0.0 % 0-0 NEUTROPHIL # (test code=NT#) 4.13 K/mm3 1.8-7.7 IMMATURE GRANULOCYTE # (test code=IG#) 0.63 x10 3/uL 0-0.03 LYMPHOCYTE # (test code=LY#) 0.75 K/mm3 1.0-5.0 MONOCYTE # (test code=MO#) 1.12 K/mm3 0-0.8 EOSINOPHIL # (test code=EO#) 0.03 K/mm3 0.0-0.5 BASOPHIL # (test code=BA#) 0.04 K/mm3 0.0-0.2 NUCLEATED RBC # (test code=NRBC#) 0.00 K/mm3 0.0-0.1 MANUAL DIFF REQUIRED (test code=MDIFF) YES STAIN ACCEPTABILITY (test code=STN ACCEPTABLE) TOTAL CELLS COUNTED (test code=TCC) #CELLS SEGMENTED NEUTROPHILS (test code=SEG) % 39-69 LYMPHOCYTE (test code=LYMPH) % 25-55 MONOCYTE (test code=MON) % 0-10 EOSINOPHIL (test code=EOS) % 0.0-5.0 MORPHOLOGY COMMENT (test code=MOC) PLATELET ESTIMATE (test code=PLTEST) PLATELET MORPHOLOGY (test code=PLTMORPH) CBC W/MANUAL [id number] 08:38:00* Test Item Value Reference Range Comments WHITE BLOOD CELL (test code=WBC) 6.7 K/mm3 4.5-12.5 RED BLOOD CELL (test code=RBC) 2.86 mill/mm3 3.7-5.2 HEMOGLOBIN (test code=HGB) 8.7 gram/dL 11.5-15.5 HEMATOCRIT (test code=HCT) 27.6 % 36.0-46.0 MEAN CELL VOLUME (test code=MCV) 96.5 fL 80-98 MEAN CELL HGB (test code=MCH) 30.4 picogram 27.0-33.0 MEAN CELL HGB CONCETRATION (test code=MCHC) 31.5 gram/dL 33.0-36.0 RED CELL DISTRIBUTION WIDTH (test code=RDW) 16.4 % 11.6-16.2 RED CELL DISTRIBUTION WIDTH SD (test code=RDW-SD) 58.0 fL 37.0-51.0 PLATELET COUNT (test code=PLT) 142 K/mm3 150-450 MEAN PLATELET VOLUME (test code=MPV) 11.9 fL 6.7-11.0 IMMATURE GRANULOCYTE % (test code=IG%) 9.4 % 0.0-5.0 "The appearance of immature granulocytes (myelocytes,pro-myelocytes, meta-myelocytes) in the peripheral blood ofnon- individuals can indicate a response toinfection, inflammation, or other stimulus to the bonemarrow" NUCLEATED RBC % (test code=NRBC%) 0.0 % 0-0 NEUTROPHIL # (test code=NT#) 4.13 K/mm3 1.8-7.7 IMMATURE GRANULOCYTE # (test code=IG#) 0.63 x10 3/uL 0-0.03 LYMPHOCYTE # (test code=LY#) 0.75 K/mm3 1.0-5.0 MONOCYTE # (test code=MO#) 1.12 K/mm3 0-0.8 EOSINOPHIL # (test code=EO#) 0.03 K/mm3 0.0-0.5 BASOPHIL # (test code=BA#) 0.04 K/mm3 0.0-0.2 NUCLEATED RBC # (test code=NRBC#) 0.00 K/mm3 0.0-0.1 MANUAL DIFF REQUIRED (test code=MDIFF) YES STAIN ACCEPTABILITY (test code=STN ACCEPTABLE) TOTAL CELLS COUNTED (test code=TCC) #CELLS SEGMENTED NEUTROPHILS (test code=SEG) % 39-69 LYMPHOCYTE (test code=LYMPH) % 25-55 MONOCYTE (test code=MON) % 0-10 MORPHOLOGY COMMENT (test code=MOC) PLATELET ESTIMATE (test code=PLTEST) PLATELET MORPHOLOGY (test code=PLTMORPH) CBC W/MANUAL [id number] 08:38:00* Test Item Value Reference Range Comments WHITE BLOOD CELL (test code=WBC) 6.7 K/mm3 4.5-12.5 RED BLOOD CELL (test code=RBC) 2.86 mill/mm3 3.7-5.2 HEMOGLOBIN (test code=HGB) 8.7 gram/dL 11.5-15.5 HEMATOCRIT (test code=HCT) 27.6 % 36.0-46.0 MEAN CELL VOLUME (test code=MCV) 96.5 fL 80-98 MEAN CELL HGB (test code=MCH) 30.4 picogram 27.0-33.0 MEAN CELL HGB CONCETRATION (test code=MCHC) 31.5 gram/dL 33.0-36.0 RED CELL DISTRIBUTION WIDTH (test code=RDW) 16.4 % 11.6-16.2 RED CELL DISTRIBUTION WIDTH SD (test code=RDW-SD) 58.0 fL 37.0-51.0 PLATELET COUNT (test code=PLT) 142 K/mm3 150-450 MEAN PLATELET VOLUME (test code=MPV) 11.9 fL 6.7-11.0 IMMATURE GRANULOCYTE % (test code=IG%) 9.4 % 0.0-5.0 "The appearance of immature granulocytes (myelocytes,pro-myelocytes, meta-myelocytes) in the peripheral blood ofnon- individuals can indicate a response toinfection, inflammation, or other stimulus to the bonemarrow" NUCLEATED RBC % (test code=NRBC%) 0.0 % 0-0 NEUTROPHIL # (test code=NT#) 4.13 K/mm3 1.8-7.7 IMMATURE GRANULOCYTE # (test code=IG#) 0.63 x10 3/uL 0-0.03 LYMPHOCYTE # (test code=LY#) 0.75 K/mm3 1.0-5.0 MONOCYTE # (test code=MO#) 1.12 K/mm3 0-0.8 EOSINOPHIL # (test code=EO#) 0.03 K/mm3 0.0-0.5 BASOPHIL # (test code=BA#) 0.04 K/mm3 0.0-0.2 NUCLEATED RBC # (test code=NRBC#) 0.00 K/mm3 0.0-0.1 MANUAL DIFF REQUIRED (test code=MDIFF) YES STAIN ACCEPTABILITY (test code=STN ACCEPTABLE) TOTAL CELLS COUNTED (test code=TCC) #CELLS SEGMENTED NEUTROPHILS (test code=SEG) % 39-69 LYMPHOCYTE (test code=LYMPH) % 25-55 MONOCYTE (test code=MON) % 0-10 EOSINOPHIL (test code=EOS) % 0.0-5.0 CABOT RINGS (test code=CAB) MORPHOLOGY COMMENT (test code=MOC) PLATELET ESTIMATE (test code=PLTEST) PLATELET MORPHOLOGY (test code=PLTMORPH) [id number] 06:15:00* Test Item Value Reference Range Comments GLUBED (test code=GLUBED) 78 mg/dL 74-106 Performed by certified traffic control operator at [facility] [id number] 21:02:00* Test Item Value Reference Range Comments GLUBED (test code=GLUBED) 91 mg/dL 74-106 Performed by certified traffic control operator at [facility] BASIC METABOLIC [id number] 12:27:00* Test Item Value Reference Range Comments SODIUM (test code=NA) 137 mmol/L 136-145 POTASSIUM (test code=K) 3.9 mmol/L 3.5-5.1 CHLORIDE (test code=CL) 106.0 mmol/L 98-107 CARBON DIOXIDE (test code=CO2) 26.0 mmol/L 21-32 ANION GAP (test code=GAP) 8.9 10-20 GLUCOSE (test code=GLU) 96 mg/dL 74-106 BLOOD UREA NITROGEN (test code=BUN) 14 mg/dL 7-18 GLOMERULAR FILTRATION RATE (test code=GFR) > 60 mL/min >=60 Estimated GFR by using Modified MDRD formula.Chronic kidney disease is defined as either kidney damageor GFR <60 mL/min/1.73 m2 for >3 months. CREATININE (test code=CREAT) 0.20 mg/dL 0.55-1.02 Note change in reference range due to change in reagent. BUN/CREATININE RATIO (test code=BUN/CREA) 70.0 10-20 CALCIUM (test code=CA) 8.1 mg/dL 8.5-10.1 [id number] 12:27:00* Test Item Value Reference Range Comments MAGNESIUM (test code=MAG) 1.6 mg/dL 1.8-2.4 BASIC METABOLIC [id number] 12:22:00* Test Item Value Reference Range Comments SODIUM (test code=NA) 137 mmol/L 136-145 POTASSIUM (test code=K) 3.9 mmol/L 3.5-5.1 CHLORIDE (test code=CL) 106.0 mmol/L 98-107 CARBON DIOXIDE (test code=CO2) mmol/L 21-32 ANION GAP (test code=GAP) 10-20 GLUCOSE (test code=GLU) mg/dL 74-106 BLOOD UREA NITROGEN (test code=BUN) mg/dL 7-18 GLOMERULAR FILTRATION RATE (test code=GFR) mL/min >=60 CREATININE (test code=CREAT) mg/dL 0.55-1.02 BUN/CREATININE RATIO (test code=BUN/CREA) 10-20 CALCIUM (test code=CA) mg/dL 8.5-10.1 [id number] 12:22:00* Test Item Value Reference Range Comments MAGNESIUM (test code=MAG) mg/dL 1.8-2.4 [id number] 06:31:00* Test Item Value Reference Range Comments GLUBED (test code=GLUBED) 100 mg/dL 74-106 Performed by certified traffic control operator at [facility] [id number] 22:06:00* Test Item Value Reference Range Comments GLUBED (test code=GLUBED) 106 mg/dL 74-106 Performed by certified traffic control operator at [facility] [id number] 15:48:00* Test Item Value Reference Range Comments GLUBED (test code=GLUBED) 101 mg/dL 74-106 Performed by certified traffic control operator at [facility] [id number] 11:17:00* Test Item Value Reference Range Comments GLUBED (test code=GLUBED) 97 mg/dL 74-106 Performed by certified traffic control operator at [facility] CBC W/MANUAL [id number] 07:30:00* Test Item Value Reference Range Comments WHITE BLOOD CELL (test code=WBC) 8.1 K/mm3 4.5-12.5 RED BLOOD CELL (test code=RBC) 3.23 mill/mm3 3.7-5.2 HEMOGLOBIN (test code=HGB) 9.6 gram/dL 11.5-15.5 HEMATOCRIT (test code=HCT) 29.3 % 36.0-46.0 MEAN CELL VOLUME (test code=MCV) 90.7 fL 80-98 MEAN CELL HGB (test code=MCH) 29.7 picogram 27.0-33.0 MEAN CELL HGB CONCETRATION (test code=MCHC) 32.8 gram/dL 33.0-36.0 RED CELL DISTRIBUTION WIDTH (test code=RDW) 16.1 % 11.6-16.2 RED CELL DISTRIBUTION WIDTH SD (test code=RDW-SD) 53.1 fL 37.0-51.0 PLATELET COUNT (test code=PLT) 97 K/mm3 150-450 MEAN PLATELET VOLUME (test code=MPV) 12.4 fL 6.7-11.0 IMMATURE GRANULOCYTE % (test code=IG%) 1.0 % 0.0-5.0 NUCLEATED RBC % (test code=NRBC%) 0.0 % 0-0 NEUTROPHIL # (test code=NT#) 6.57 K/mm3 1.8-7.7 IMMATURE GRANULOCYTE # (test code=IG#) 0.08 x10 3/uL 0-0.03 LYMPHOCYTE # (test code=LY#) 0.70 K/mm3 1.0-5.0 MONOCYTE # (test code=MO#) 0.75 K/mm3 0-0.8 EOSINOPHIL # (test code=EO#) 0.01 K/mm3 0.0-0.5 BASOPHIL # (test code=BA#) 0.01 K/mm3 0.0-0.2 NUCLEATED RBC # (test code=NRBC#) 0.00 K/mm3 0.0-0.1 MANUAL DIFF REQUIRED (test code=MDIFF) YES STAIN ACCEPTABILITY (test code=STN ACCEPTABLE) STAIN ACCEPTABLE TOTAL CELLS COUNTED (test code=TCC) 113 #CELLS SEGMENTED NEUTROPHILS (test code=SEG) 87.6 % 39-69 BAND NEUTROPHIL (test code=BAND) 0 % 0-10 LYMPHOCYTE (test code=LYMPH) 6.2 % 25-55 REACTIVE LYMPH (test code=RELYMPH) 0 % MONOCYTE (test code=MON) 2.6 % 0-10 EOSINOPHIL (test code=EOS) 0 % 0.0-5.0 BASOPHIL (test code=BASO) 0 % 0-1.0 METAMYELOCYTE (test code=META) 0 % 0-0 MYELOCYTE (test code=MYELO) 0 % 0.0-0.0 PROMYELOCYTE (test code=PROM) 0.9 % 0-0 ANISOCYTOSIS (test code=ANISO) 1+ MACROCYTOSIS (test code=MACR) 1+ PLATELET ESTIMATE (test code=PLTEST) DECREASED PLATELET MORPHOLOGY (test code=PLTMORPH) SIZE VARIABLE IMMATURE FORMS (test code=IMMAT) 2.7 % 0-0 CBC W/MANUAL [id number] 06:26:00* Test Item Value Reference Range Comments WHITE BLOOD CELL (test code=WBC) 8.1 K/mm3 4.5-12.5 RED BLOOD CELL (test code=RBC) 3.23 mill/mm3 3.7-5.2 HEMOGLOBIN (test code=HGB) 9.6 gram/dL 11.5-15.5 HEMATOCRIT (test code=HCT) 29.3 % 36.0-46.0 MEAN CELL VOLUME (test code=MCV) 90.7 fL 80-98 MEAN CELL HGB (test code=MCH) 29.7 picogram 27.0-33.0 MEAN CELL HGB CONCETRATION (test code=MCHC) 32.8 gram/dL 33.0-36.0 RED CELL DISTRIBUTION WIDTH (test code=RDW) 16.1 % 11.6-16.2 RED CELL DISTRIBUTION WIDTH SD (test code=RDW-SD) 53.1 fL 37.0-51.0 PLATELET COUNT (test code=PLT) 97 K/mm3 150-450 MEAN PLATELET VOLUME (test code=MPV) 12.4 fL 6.7-11.0 IMMATURE GRANULOCYTE % (test code=IG%) 1.0 % 0.0-5.0 NUCLEATED RBC % (test code=NRBC%) 0.0 % 0-0 NEUTROPHIL # (test code=NT#) 6.57 K/mm3 1.8-7.7 IMMATURE GRANULOCYTE # (test code=IG#) 0.08 x10 3/uL 0-0.03 LYMPHOCYTE # (test code=LY#) 0.70 K/mm3 1.0-5.0 MONOCYTE # (test code=MO#) 0.75 K/mm3 0-0.8 EOSINOPHIL # (test code=EO#) 0.01 K/mm3 0.0-0.5 BASOPHIL # (test code=BA#) 0.01 K/mm3 0.0-0.2 NUCLEATED RBC # (test code=NRBC#) 0.00 K/mm3 0.0-0.1 MANUAL DIFF REQUIRED (test code=MDIFF) YES STAIN ACCEPTABILITY (test code=STN ACCEPTABLE) TOTAL CELLS COUNTED (test code=TCC) #CELLS SEGMENTED NEUTROPHILS (test code=SEG) % 39-69 LYMPHOCYTE (test code=LYMPH) % 25-55 MONOCYTE (test code=MON) % 0-10 EOSINOPHIL (test code=EOS) % 0.0-5.0 CABOT RINGS (test code=CAB) MORPHOLOGY COMMENT (test code=MOC) PLATELET ESTIMATE (test code=PLTEST) PLATELET MORPHOLOGY (test code=PLTMORPH) CBC W/MANUAL [id number] 06:26:00* Test Item Value Reference Range Comments WHITE BLOOD CELL (test code=WBC) 8.1 K/mm3 4.5-12.5 RED BLOOD CELL (test code=RBC) 3.23 mill/mm3 3.7-5.2 HEMOGLOBIN (test code=HGB) 9.6 gram/dL 11.5-15.5 HEMATOCRIT (test code=HCT) 29.3 % 36.0-46.0 MEAN CELL VOLUME (test code=MCV) 90.7 fL 80-98 MEAN CELL HGB (test code=MCH) 29.7 picogram 27.0-33.0 MEAN CELL HGB CONCETRATION (test code=MCHC) 32.8 gram/dL 33.0-36.0 RED CELL DISTRIBUTION WIDTH (test code=RDW) 16.1 % 11.6-16.2 RED CELL DISTRIBUTION WIDTH SD (test code=RDW-SD) 53.1 fL 37.0-51.0 PLATELET COUNT (test code=PLT) 97 K/mm3 150-450 MEAN PLATELET VOLUME (test code=MPV) 12.4 fL 6.7-11.0 IMMATURE GRANULOCYTE % (test code=IG%) 1.0 % 0.0-5.0 NUCLEATED RBC % (test code=NRBC%) 0.0 % 0-0 NEUTROPHIL # (test code=NT#) 6.57 K/mm3 1.8-7.7 IMMATURE GRANULOCYTE # (test code=IG#) 0.08 x10 3/uL 0-0.03 LYMPHOCYTE # (test code=LY#) 0.70 K/mm3 1.0-5.0 MONOCYTE # (test code=MO#) 0.75 K/mm3 0-0.8 EOSINOPHIL # (test code=EO#) 0.01 K/mm3 0.0-0.5 BASOPHIL # (test code=BA#) 0.01 K/mm3 0.0-0.2 NUCLEATED RBC # (test code=NRBC#) 0.00 K/mm3 0.0-0.1 MANUAL DIFF REQUIRED (test code=MDIFF) YES STAIN ACCEPTABILITY (test code=STN ACCEPTABLE) TOTAL CELLS COUNTED (test code=TCC) #CELLS SEGMENTED NEUTROPHILS (test code=SEG) % 39-69 LYMPHOCYTE (test code=LYMPH) % 25-55 MONOCYTE (test code=MON) % 0-10 EOSINOPHIL (test code=EOS) % 0.0-5.0 MORPHOLOGY COMMENT (test code=MOC) PLATELET ESTIMATE (test code=PLTEST) PLATELET MORPHOLOGY (test code=PLTMORPH) CBC W/MANUAL [id number] 06:26:00* Test Item Value Reference Range Comments WHITE BLOOD CELL (test code=WBC) 8.1 K/mm3 4.5-12.5 RED BLOOD CELL (test code=RBC) 3.23 mill/mm3 3.7-5.2 HEMOGLOBIN (test code=HGB) 9.6 gram/dL 11.5-15.5 HEMATOCRIT (test code=HCT) 29.3 % 36.0-46.0 MEAN CELL VOLUME (test code=MCV) 90.7 fL 80-98 MEAN CELL HGB (test code=MCH) 29.7 picogram 27.0-33.0 MEAN CELL HGB CONCETRATION (test code=MCHC) 32.8 gram/dL 33.0-36.0 RED CELL DISTRIBUTION WIDTH (test code=RDW) 16.1 % 11.6-16.2 RED CELL DISTRIBUTION WIDTH SD (test code=RDW-SD) 53.1 fL 37.0-51.0 PLATELET COUNT (test code=PLT) 97 K/mm3 150-450 MEAN PLATELET VOLUME (test code=MPV) 12.4 fL 6.7-11.0 IMMATURE GRANULOCYTE % (test code=IG%) 1.0 % 0.0-5.0 NUCLEATED RBC % (test code=NRBC%) 0.0 % 0-0 NEUTROPHIL # (test code=NT#) 6.57 K/mm3 1.8-7.7 IMMATURE GRANULOCYTE # (test code=IG#) 0.08 x10 3/uL 0-0.03 LYMPHOCYTE # (test code=LY#) 0.70 K/mm3 1.0-5.0 MONOCYTE # (test code=MO#) 0.75 K/mm3 0-0.8 EOSINOPHIL # (test code=EO#) 0.01 K/mm3 0.0-0.5 BASOPHIL # (test code=BA#) 0.01 K/mm3 0.0-0.2 NUCLEATED RBC # (test code=NRBC#) 0.00 K/mm3 0.0-0.1 MANUAL DIFF REQUIRED (test code=MDIFF) YES STAIN ACCEPTABILITY (test code=STN ACCEPTABLE) TOTAL CELLS COUNTED (test code=TCC) #CELLS SEGMENTED NEUTROPHILS (test code=SEG) % 39-69 LYMPHOCYTE (test code=LYMPH) % 25-55 MONOCYTE (test code=MON) % 0-10 MORPHOLOGY COMMENT (test code=MOC) PLATELET ESTIMATE (test code=PLTEST) PLATELET MORPHOLOGY (test code=PLTMORPH) CBC W/MANUAL [id number] 06:25:00* Test Item Value Reference Range Comments WHITE BLOOD CELL (test code=WBC) 8.1 K/mm3 4.5-12.5 RED BLOOD CELL (test code=RBC) 3.23 mill/mm3 3.7-5.2 HEMOGLOBIN (test code=HGB) 9.6 gram/dL 11.5-15.5 HEMATOCRIT (test code=HCT) 29.3 % 36.0-46.0 MEAN CELL VOLUME (test code=MCV) 90.7 fL 80-98 MEAN CELL HGB (test code=MCH) 29.7 picogram 27.0-33.0 MEAN CELL HGB CONCETRATION (test code=MCHC) 32.8 gram/dL 33.0-36.0 RED CELL DISTRIBUTION WIDTH (test code=RDW) 16.1 % 11.6-16.2 RED CELL DISTRIBUTION WIDTH SD (test code=RDW-SD) 53.1 fL 37.0-51.0 PLATELET COUNT (test code=PLT) 97 K/mm3 150-450 MEAN PLATELET VOLUME (test code=MPV) 12.4 fL 6.7-11.0 IMMATURE GRANULOCYTE % (test code=IG%) 1.0 % 0.0-5.0 NUCLEATED RBC % (test code=NRBC%) 0.0 % 0-0 NEUTROPHIL # (test code=NT#) 6.57 K/mm3 1.8-7.7 IMMATURE GRANULOCYTE # (test code=IG#) 0.08 x10 3/uL 0-0.03 LYMPHOCYTE # (test code=LY#) 0.70 K/mm3 1.0-5.0 MONOCYTE # (test code=MO#) 0.75 K/mm3 0-0.8 EOSINOPHIL # (test code=EO#) 0.01 K/mm3 0.0-0.5 BASOPHIL # (test code=BA#) 0.01 K/mm3 0.0-0.2 NUCLEATED RBC # (test code=NRBC#) 0.00 K/mm3 0.0-0.1 MANUAL DIFF REQUIRED (test code=MDIFF) YES STAIN ACCEPTABILITY (test code=STN ACCEPTABLE) TOTAL CELLS COUNTED (test code=TCC) #CELLS SEGMENTED NEUTROPHILS (test code=SEG) % 39-69 LYMPHOCYTE (test code=LYMPH) % 25-55 MONOCYTE (test code=MON) % 0-10 EOSINOPHIL (test code=EOS) % 0.0-5.0 CABOT RINGS (test code=CAB) MORPHOLOGY COMMENT (test code=MOC) PLATELET ESTIMATE (test code=PLTEST) PLATELET MORPHOLOGY (test code=PLTMORPH) CBC W/MANUAL [id number] 06:25:00* Test Item Value Reference Range Comments WHITE BLOOD CELL (test code=WBC) 8.1 K/mm3 4.5-12.5 RED BLOOD CELL (test code=RBC) 3.23 mill/mm3 3.7-5.2 HEMOGLOBIN (test code=HGB) 9.6 gram/dL 11.5-15.5 HEMATOCRIT (test code=HCT) 29.3 % 36.0-46.0 MEAN CELL VOLUME (test code=MCV) 90.7 fL 80-98 MEAN CELL HGB (test code=MCH) 29.7 picogram 27.0-33.0 MEAN CELL HGB CONCETRATION (test code=MCHC) 32.8 gram/dL 33.0-36.0 RED CELL DISTRIBUTION WIDTH (test code=RDW) 16.1 % 11.6-16.2 RED CELL DISTRIBUTION WIDTH SD (test code=RDW-SD) 53.1 fL 37.0-51.0 PLATELET COUNT (test code=PLT) 97 K/mm3 150-450 MEAN PLATELET VOLUME (test code=MPV) 12.4 fL 6.7-11.0 IMMATURE GRANULOCYTE % (test code=IG%) 1.0 % 0.0-5.0 NUCLEATED RBC % (test code=NRBC%) 0.0 % 0-0 NEUTROPHIL # (test code=NT#) 6.57 K/mm3 1.8-7.7 IMMATURE GRANULOCYTE # (test code=IG#) 0.08 x10 3/uL 0-0.03 LYMPHOCYTE # (test code=LY#) 0.70 K/mm3 1.0-5.0 MONOCYTE # (test code=MO#) 0.75 K/mm3 0-0.8 EOSINOPHIL # (test code=EO#) 0.01 K/mm3 0.0-0.5 BASOPHIL # (test code=BA#) 0.01 K/mm3 0.0-0.2 NUCLEATED RBC # (test code=NRBC#) 0.00 K/mm3 0.0-0.1 MANUAL DIFF REQUIRED (test code=MDIFF) YES STAIN ACCEPTABILITY (test code=STN ACCEPTABLE) TOTAL CELLS COUNTED (test code=TCC) #CELLS SEGMENTED NEUTROPHILS (test code=SEG) % 39-69 LYMPHOCYTE (test code=LYMPH) % 25-55 MONOCYTE (test code=MON) % 0-10 EOSINOPHIL (test code=EOS) % 0.0-5.0 CABOT RINGS (test code=CAB) MORPHOLOGY COMMENT (test code=MOC) PLATELET ESTIMATE (test code=PLTEST) PLATELET MORPHOLOGY (test code=PLTMORPH) [id number] 06:02:00* Test Item Value Reference Range Comments GLUBED (test code=GLUBED) 98 mg/dL 74-106 Performed by certified traffic control operator at [facility] [id number] 21:52:00* Test Item Value Reference Range Comments GLUBED (test code=GLUBED) 94 mg/dL 74-106 Performed by certified traffic control operator at [facility] [id number] 17:33:00* Test Item Value Reference Range Comments GLUBED (test code=GLUBED) 82 mg/dL 74-106 Performed by certified traffic control operator at [facility] BASIC METABOLIC [id number] 15:52:00* Test Item Value Reference Range Comments SODIUM (test code=NA) 139 mmol/L 136-145 POTASSIUM (test code=K) 4.5 mmol/L 3.5-5.1 CHLORIDE (test code=CL) 107.0 mmol/L 98-107 CARBON DIOXIDE (test code=CO2) 26.0 mmol/L 21-32 ANION GAP (test code=GAP) 10.5 10-20 GLUCOSE (test code=GLU) 87 mg/dL 74-106 BLOOD UREA NITROGEN (test code=BUN) 12 mg/dL 7-18 GLOMERULAR FILTRATION RATE (test code=GFR) > 60 mL/min >=60 Estimated GFR by using Modified MDRD formula.Chronic kidney disease is defined as either kidney damageor GFR <60 mL/min/1.73 m2 for >3 months. CREATININE (test code=CREAT) 0.30 mg/dL 0.55-1.02 Note change in reference range due to change in reagent. BUN/CREATININE RATIO (test code=BUN/CREA) 40.0 10-20 CALCIUM (test code=CA) 7.9 mg/dL 8.5-10.1 [id number] 15:52:00* Test Item Value Reference Range Comments MAGNESIUM (test code=MAG) 1.8 mg/dL 1.8-2.4 BASIC METABOLIC [id number] 15:47:00* Test Item Value Reference Range Comments SODIUM (test code=NA) 139 mmol/L 136-145 POTASSIUM (test code=K) 4.5 mmol/L 3.5-5.1 CHLORIDE (test code=CL) 107.0 mmol/L 98-107 CARBON DIOXIDE (test code=CO2) mmol/L 21-32 ANION GAP (test code=GAP) 10-20 GLUCOSE (test code=GLU) mg/dL 74-106 BLOOD UREA NITROGEN (test code=BUN) mg/dL 7-18 GLOMERULAR FILTRATION RATE (test code=GFR) mL/min >=60 CREATININE (test code=CREAT) mg/dL 0.55-1.02 BUN/CREATININE RATIO (test code=BUN/CREA) 10-20 CALCIUM (test code=CA) mg/dL 8.5-10.1 [id number] 15:47:00* Test Item Value Reference Range Comments MAGNESIUM (test code=MAG) mg/dL 1.8-2.4 [id number] 12:21:00* Test Item Value Reference Range Comments GLUBED (test code=GLUBED) 91 mg/dL 74-106 Performed by certified traffic control operator at [facility] [id number] 06:01:00* Test Item Value Reference Range Comments GLUBED (test code=GLUBED) 96 mg/dL 74-106 Performed by certified traffic control operator at [facility] [id number] 00:29:00* Test Item Value Reference Range Comments GLUBED (test code=GLUBED) 97 mg/dL 74-106 Performed by certified traffic control operator at [facility] [id number] 21:53:00* Test Item Value Reference Range Comments GLUBED (test code=GLUBED) 100 mg/dL 74-106 Performed by certified traffic control operator at [facility] BASIC METABOLIC [id number] 17:55:00* Test Item Value Reference Range Comments SODIUM (test code=NA) 139 mmol/L 136-145 POTASSIUM (test code=K) 3.9 mmol/L 3.5-5.1 CHLORIDE (test code=CL) 107.0 mmol/L 98-107 CARBON DIOXIDE (test code=CO2) 24.0 mmol/L 21-32 ANION GAP (test code=GAP) 11.9 10-20 GLUCOSE (test code=GLU) 105 mg/dL 74-106 BLOOD UREA NITROGEN (test code=BUN) 9 mg/dL 7-18 GLOMERULAR FILTRATION RATE (test code=GFR) > 60 mL/min >=60 Estimated GFR by using Modified MDRD formula.Chronic kidney disease is defined as either kidney damageor GFR <60 mL/min/1.73 m2 for >3 months. CREATININE (test code=CREAT) 0.40 mg/dL 0.55-1.02 Note change in reference range due to change in reagent. BUN/CREATININE RATIO (test code=BUN/CREA) 22.5 10-20 CALCIUM (test code=CA) 8.1 mg/dL 8.5-10.1 1323WAITING OD DRS ORDERS TO DRAW 0955 V.LAB.JS1 [id number] ON IRMA GRAF RS TO DRAW FROM PORT. BRUNILDA MENJIVAR SAID COMEBACK LATER. V.LAB.[facility] 03/27/19 0541 [id number] 17:55:00* Test Item Value Reference Range Comments MAGNESIUM (test code=MAG) 2.1 mg/dL 1.8-2.4 1323WAITING OD DRS ORDERS TO DRAW 0955 V.LAB.JS1 [id number] ON IRMA GRAF RS TO DRAW FROM [place]. [place]DA MENJIVAR SAID COMEBACK LATER. V.LAB.[facility] 03/27/1943 BASIC METABOLIC [id number] 17:49:00* Test Item Value Reference Range Comments SODIUM (test code=NA) 139 mmol/L 136-145 POTASSIUM (test code=K) 3.9 mmol/L 3.5-5.1 CHLORIDE (test code=CL) 107.0 mmol/L 98-107 CARBON DIOXIDE (test code=CO2) mmol/L 21-32 ANION GAP (test code=GAP) 10-20 GLUCOSE (test code=GLU) mg/dL 74-106 BLOOD UREA NITROGEN (test code=BUN) mg/dL 7-18 GLOMERULAR FILTRATION RATE (test code=GFR) mL/min >=60 CREATININE (test code=CREAT) mg/dL 0.55-1.02 BUN/CREATININE RATIO (test code=BUN/CREA) 10-20 CALCIUM (test code=CA) mg/dL 8.5-10.1 1323WAITING OD DRS ORDERS TO DRAW 0955 V.LAB.[facility] [id number] ON IRMA GRAF RS TO DRAW FROM [place]. [place] MENJIVAR SAID COMEBACK LATER. V.LAB.[facility] 03/27/19 0541 [id number] 17:49:00* Test Item Value Reference Range Comments MAGNESIUM (test code=MAG) mg/dL 1.8-2.4 1323WAITING OD DRS ORDERS TO DRAW 0955 V.LAB.[facility] [id number] ON DRS ORDE RS TO DRAW FROM [place] MENJIVAR SAID COMEBACK LATER. V.LAB.[facility] 03/27/19 0541 [id number] 07:31:00* Test Item Value Reference Range Comments GLUBED (test code=GLUBED) 108 mg/dL 74-106 Performed by certified traffic control operator at [facility] [id number] 03:07:00* Test Item Value Reference Range Comments GLUBED (test code=GLUBED) 96 mg/dL 74-106 Performed by certified traffic control operator at [facility] [id number] 22:06:00* Test Item Value Reference Range Comments GLUBED (test code=GLUBED) 97 mg/dL 74-106 Performed by certified traffic control operator at [facility] [id number] 13:13:00* Test Item Value Reference Range Comments GLUBED (test code=GLUBED) 94 mg/dL 74-106 Performed by certified traffic control operator at [facility] [id number] 10:27:00* Test Item Value Reference Range Comments MAGNESIUM (test code=MAG) 1.3 mg/dL 1.8-2.4 BASIC METABOLIC [id number] 09:18:00* Test Item Value Reference Range Comments SODIUM (test code=NA) 143 mmol/L 136-145 POTASSIUM (test code=K) 2.5 mmol/L 3.5-5.1 Results called to [id number] by [facility] 03/26/19 0918Critical results verified and read back by Nurse? Y CHLORIDE (test code=CL) 107.0 mmol/L 98-107 CARBON DIOXIDE (test code=CO2) 23.0 mmol/L 21-32 ANION GAP (test code=GAP) 15.5 10-20 GLUCOSE (test code=GLU) 112 mg/dL 74-106 BLOOD UREA NITROGEN (test code=BUN) 4 mg/dL 7-18 GLOMERULAR FILTRATION RATE (test code=GFR) > 60 mL/min >=60 Estimated GFR by using Modified MDRD formula.Chronic kidney disease is defined as either kidney damageor GFR <60 mL/min/1.73 m2 for >3 months. CREATININE (test code=CREAT) 0.40 mg/dL 0.55-1.02 Note change in reference range due to change in reagent. BUN/CREATININE RATIO (test code=BUN/CREA) 10.0 10-20 CALCIUM (test code=CA) 7.9 mg/dL 8.5-10.1 [id number] 07:26:00* Test Item Value Reference Range Comments GLUBED (test code=GLUBED) 131 mg/dL 74-106 Performed by certified traffic control operator at [facility] CBC W/AUTO [id number] 06:44:00* Test Item Value Reference Range Comments WHITE BLOOD CELL (test code=WBC) 6.3 K/mm3 4.5-12.5 RED BLOOD CELL (test code=RBC) 3.21 mill/mm3 3.7-5.2 HEMOGLOBIN (test code=HGB) 9.5 gram/dL 11.5-15.5 HEMATOCRIT (test code=HCT) 29.4 % 36.0-46.0 MEAN CELL VOLUME (test code=MCV) 91.6 fL 80-98 MEAN CELL HGB (test code=MCH) 29.6 picogram 27.0-33.0 MEAN CELL HGB CONCETRATION (test code=MCHC) 32.3 gram/dL 33.0-36.0 RED CELL DISTRIBUTION WIDTH (test code=RDW) 16.1 % 11.6-16.2 RED CELL DISTRIBUTION WIDTH SD (test code=RDW-SD) 53.3 fL 37.0-51.0 PLATELET COUNT (test code=PLT) 63 K/mm3 150-450 MEAN PLATELET VOLUME (test code=MPV) 12.1 fL 6.7-11.0 NEUTROPHIL % (test code=NT%) 86.9 % 39.0-69.0 IMMATURE GRANULOCYTE % (test code=IG%) 0.5 % 0.0-5.0 LYMPHOCYTE % (test code=LY%) 7.8 % 25.0-55.0 MONOCYTE % (test code=MO%) 4.6 % 0.0-10.0 EOSINOPHIL % (test code=EO%) 0.0 % 0.0-5.0 BASOPHIL % (test code=BA%) 0.2 % 0.0-1.0 NUCLEATED RBC % (test code=NRBC%) 0.0 % 0-0 NEUTROPHIL # (test code=NT#) 5.44 K/mm3 1.8-7.7 IMMATURE GRANULOCYTE # (test code=IG#) 0.03 x10 3/uL 0-0.03 LYMPHOCYTE # (test code=LY#) 0.49 K/mm3 1.0-5.0 MONOCYTE # (test code=MO#) 0.29 K/mm3 0-0.8 EOSINOPHIL # (test code=EO#) 0.00 K/mm3 0.0-0.5 BASOPHIL # (test code=BA#) 0.01 K/mm3 0.0-0.2 NUCLEATED RBC # (test code=NRBC#) 0.00 K/mm3 0.0-0.1 MANUAL DIFF REQUIRED (test code=MDIFF) NO THROMBOPLASTIN TIME [id number] 13:44:00* Test Item Value Reference Range Comments THROMBOPLASTIN TIME PARTIAL (test code=PTT) 33.7 seconds 25.0-36.5 PT HARD STICK NOTIFIED BRUNILDA BETANCOURT@[email or web address] 03/25/19 1056IS PATIENT ON ANTICOAGULAN TS? [employer] ANTICOAGULANTS [id number] 10:43:00* Test Item Value Reference Range Comments GLUBED (test code=GLUBED) 121 mg/dL 74-106 Performed by certified traffic control operator at [facility] [id number] 06:34:00* Test Item Value Reference Range Comments GLUBED (test code=GLUBED) 71 mg/dL 74-106 Performed by certified traffic control operator at [facility] THROMBOPLASTIN TIME [id number] 02:31:00* Test Item Value Reference Range Comments THROMBOPLASTIN TIME PARTIAL (test code=PTT) 60.6 seconds 25.0-36.5 IS PATIENT ON ANTICOAGULANTS? [employer]LIST ANTICOAGULANTS [id number] 01:33:00* Test Item Value Reference Range Comments GLUBED (test code=GLUBED) 86 mg/dL 74-106 Performed by certified traffic control operator at [facility] THROMBOPLASTIN TIME [id number] 19:35:00* Test Item Value Reference Range Comments THROMBOPLASTIN TIME PARTIAL (test code=PTT) 57.2 seconds 25.0-36.5 IS PATIENT ON ANTICOAGULANTS? [employer]LIST ANTICOAGULANTS [id number] 11:47:00* Test Item Value Reference Range Comments GLUBED (test code=GLUBED) 85 mg/dL 74-106 Performed by certified traffic control operator at [facility] BASIC METABOLIC [id number] 08:50:00* Test Item Value Reference Range Comments SODIUM (test code=NA) 141 mmol/L 136-145 POTASSIUM (test code=K) 3.7 mmol/L 3.5-5.1 CHLORIDE (test code=CL) 108.0 mmol/L 98-107 CARBON DIOXIDE (test code=CO2) 25.0 mmol/L 21-32 ANION GAP (test code=GAP) 11.7 10-20 GLUCOSE (test code=GLU) 74 mg/dL 74-106 BLOOD UREA NITROGEN (test code=BUN) 5 mg/dL 7-18 GLOMERULAR FILTRATION RATE (test code=GFR) > 60 mL/min >=60 Estimated GFR by using Modified MDRD formula.Chronic kidney disease is defined as either kidney damageor GFR <60 mL/min/1.73 m2 for >3 months. CREATININE (test code=CREAT) 0.40 mg/dL 0.55-1.02 Note change in reference range due to change in reagent. BUN/CREATININE RATIO (test code=BUN/CREA) 12.5 10-20 CALCIUM (test code=CA) 7.8 mg/dL 8.5-10.1 BASIC METABOLIC [id number] 08:43:00* Test Item Value Reference Range Comments SODIUM (test code=NA) 141 mmol/L 136-145 POTASSIUM (test code=K) 3.7 mmol/L 3.5-5.1 CHLORIDE (test code=CL) 108.0 mmol/L 98-107 CARBON DIOXIDE (test code=CO2) mmol/L 21-32 ANION GAP (test code=GAP) 10-20 GLUCOSE (test code=GLU) mg/dL 74-106 BLOOD UREA NITROGEN (test code=BUN) mg/dL 7-18 GLOMERULAR FILTRATION RATE (test code=GFR) mL/min >=60 CREATININE (test code=CREAT) mg/dL 0.55-1.02 BUN/CREATININE RATIO (test code=BUN/CREA) 10-20 CALCIUM (test code=CA) mg/dL 8.5-10.1 THROMBOPLASTIN TIME [id number] 08:20:00* Test Item Value Reference Range Comments THROMBOPLASTIN TIME PARTIAL (test code=PTT) 46.8 seconds 25.0-36.5 IS PATIENT ON ANTICOAGULANTS? [employer] ANTICOAGULANT[employer] [id number] 06:20:00* Test Item Value Reference Range Comments GLUBED (test code=GLUBED) 83 mg/dL 74-106 Performed by certified traffic control operator at [facility] THROMBOPLASTIN TIME [id number] 01:44:00* Test Item Value Reference Range Comments THROMBOPLASTIN TIME PARTIAL (test code=PTT) 61.8 seconds 25.0-36.5 IS PATIENT ON ANTICOAGULANTS? [employer]LIST ANTICOAGULANTS [id number] 21:13:00* Test Item Value Reference Range Comments GLUBED (test code=GLUBED) 73 mg/dL 74-106 Performed by certified traffic control operator at [facility] THROMBOPLASTIN TIME [id number] 18:12:00* Test Item Value Reference Range Comments THROMBOPLASTIN TIME PARTIAL (test code=PTT) 86.9 seconds 25.0-36.5 Results called to CHRISTINA by [employer]TS1 03/23/19 1811Critical results verified and read back by Nurse? Y IS PATIENT ON ANTICOAGULANTS? [employer] ANTICOAGUL[employer] [id number] 16:53:00* Test Item Value Reference Range Comments GLUBED (test code=GLUBED) 70 mg/dL 74-106 Performed by certified traffic control operator at [facility] [id number] 12:08:00* Test Item Value Reference Range Comments GLUBED (test code=GLUBED) 93 mg/dL 74-106 Performed by certified traffic control operator at [facility] BASIC METABOLIC [id number] 09:02:00* Test Item Value Reference Range Comments SODIUM (test code=NA) 143 mmol/L 136-145 POTASSIUM (test code=K) 3.1 mmol/L 3.5-5.1 CHLORIDE (test code=CL) 109.0 mmol/L 98-107 CARBON DIOXIDE (test code=CO2) 29.0 mmol/L 21-32 ANION GAP (test code=GAP) 8.1 10-20 GLUCOSE (test code=GLU) 95 mg/dL 74-106 BLOOD UREA NITROGEN (test code=BUN) 5 mg/dL 7-18 GLOMERULAR FILTRATION RATE (test code=GFR) > 60 mL/min >=60 Estimated GFR by using Modified MDRD formula.Chronic kidney disease is defined as either kidney damageor GFR <60 mL/min/1.73 m2 for >3 months. CREATININE (test code=CREAT) 0.40 mg/dL 0.55-1.02 Note change in reference range due to change in reagent. BUN/CREATININE RATIO (test code=BUN/CREA) 12.5 10-20 CALCIUM (test code=CA) 7.9 mg/dL 8.5-10.1 [id number] 09:02:00* Test Item Value Reference Range Comments MAGNESIUM (test code=MAG) 1.3 mg/dL 1.8-2.4 BASIC METABOLIC [id number] 08:58:00* Test Item Value Reference Range Comments SODIUM (test code=NA) 143 mmol/L 136-145 POTASSIUM (test code=K) 3.1 mmol/L 3.5-5.1 CHLORIDE (test code=CL) 109.0 mmol/L 98-107 CARBON DIOXIDE (test code=CO2) mmol/L 21-32 ANION GAP (test code=GAP) 10-20 GLUCOSE (test code=GLU) mg/dL 74-106 BLOOD UREA NITROGEN (test code=BUN) mg/dL 7-18 GLOMERULAR FILTRATION RATE (test code=GFR) mL/min >=60 CREATININE (test code=CREAT) mg/dL 0.55-1.02 BUN/CREATININE RATIO (test code=BUN/CREA) 10-20 CALCIUM (test code=CA) mg/dL 8.5-10.1 [id number] 08:58:00* Test Item Value Reference Range Comments MAGNESIUM (test code=MAG) mg/dL 1.8-2.4 THROMBOPLASTIN TIME [id number] 07:33:00* Test Item Value Reference Range Comments THROMBOPLASTIN TIME PARTIAL (test code=PTT) 104.5 seconds 25.0-36.5 Results called to CHRISTINA ROTHMAN61by V.LAB. 03/23/19 0732Critical results verified and read back by Nurse? Y IS PATIENT ON ANTICOAGULANTS? [employer]LIST ANTICOAGULANTS [id number] 05:26:00* Test Item Value Reference Range Comments GLUBED (test code=GLUBED) 88 mg/dL 74-106 Performed by certified traffic control operator at [facility] THROMBOPLASTIN TIME [id number] 23:21:00* Test Item Value Reference Range Comments THROMBOPLASTIN TIME PARTIAL (test code=PTT) 62.1 seconds 25.0-36.5 IS PATIENT ON ANTICOAGULANTS? [employer]LIST ANTICOAGULANTS [id number] 21:46:00* Test Item Value Reference Range Comments GLUBED (test code=GLUBED) 88 mg/dL 74-106 Performed by certified traffic control operator at [facility] BASIC METABOLIC [id number] 19:07:00* Test Item Value Reference Range Comments SODIUM (test code=NA) 143 mmol/L 136-145 POTASSIUM (test code=K) 2.5 mmol/L 3.5-5.1 Results called to [id number] by V.LAB. 03/22/19 1906Critical results verified and read back by Nurse? Y CHLORIDE (test code=CL) 108.0 mmol/L 98-107 CARBON DIOXIDE (test code=CO2) 29.0 mmol/L 21-32 ANION GAP (test code=GAP) 8.5 10-20 GLUCOSE (test code=GLU) 81 mg/dL 74-106 BLOOD UREA NITROGEN (test code=BUN) 4 mg/dL 7-18 GLOMERULAR FILTRATION RATE (test code=GFR) > 60 mL/min >=60 Estimated GFR by using Modified MDRD formula.Chronic kidney disease is defined as either kidney damageor GFR <60 mL/min/1.73 m2 for >3 months. CREATININE (test code=CREAT) 0.30 mg/dL 0.55-1.02 Note change in reference range due to change in reagent. BUN/CREATININE RATIO (test code=BUN/CREA) 13.3 10-20 CALCIUM (test code=CA) 7.7 mg/dL 8.5-10.1 REFUSAL BRUNILDA BETANCOURT IS AWARE BASIC METABOLIC [id number] 19:06:00* Test Item Value Reference Range Comments SODIUM (test code=NA) 143 mmol/L 136-145 POTASSIUM (test code=K) 2.5 mmol/L 3.5-5.1 Results called to [id number] by V.LABDeepali 03/22/19 1906Critical results verified and read back by Nurse? Y CHLORIDE (test code=CL) 108.0 mmol/L 98-107 CARBON DIOXIDE (test code=CO2) mmol/L 21-32 ANION GAP (test code=GAP) 10-20 GLUCOSE (test code=GLU) mg/dL 74-106 BLOOD UREA NITROGEN (test code=BUN) mg/dL 7-18 GLOMERULAR FILTRATION RATE (test code=GFR) mL/min >=60 CREATININE (test code=CREAT) mg/dL 0.55-1.02 BUN/CREATININE RATIO (test code=BUN/CREA) 10-20 CALCIUM (test code=CA) mg/dL 8.5-10.1 REFUSAL BRUNILDA BETANCOURT IS AWARE [id number] 16:44:00* Test Item Value Reference Range Comments GLUBED (test code=GLUBED) 88 mg/dL 74-106 Performed by certified traffic control operator at [facility] [id number] 11:32:00* Test Item Value Reference Range Comments GLUBED (test code=GLUBED) 98 mg/dL 74-106 Performed by certified traffic control operator at [facility] [id number] 06:37:00* Test Item Value Reference Range Comments GLUBED (test code=GLUBED) 91 mg/dL 74-106 Performed by certified traffic control operator at [facility] [id number] 19:57:00* Test Item Value Reference Range Comments GLUBED (test code=GLUBED) 94 mg/dL 74-106 Performed by certified traffic control operator at [facility] [id number] 16:15:00* Test Item Value Reference Range Comments GLUBED (test code=GLUBED) 82 mg/dL 74-106 Performed by certified traffic control operator at [facility] [id number] 16:14:00* Test Item Value Reference Range Comments GLUBED (test code=GLUBED) 94 mg/dL 74-106 Performed by certified traffic control operator at [facility] CBC W/MANUAL [id number] 14:44:00* Test Item Value Reference Range Comments WHITE BLOOD CELL (test code=WBC) 5.3 K/mm3 4.5-12.5 RED BLOOD CELL (test code=RBC) 3.60 mill/mm3 3.7-5.2 HEMOGLOBIN (test code=HGB) 10.8 gram/dL 11.5-15.5 HEMATOCRIT (test code=HCT) 33.0 % 36.0-46.0 MEAN CELL VOLUME (test code=MCV) 91.7 fL 80-98 MEAN CELL HGB (test code=MCH) 30.0 picogram 27.0-33.0 MEAN CELL HGB CONCETRATION (test code=MCHC) 32.7 gram/dL 33.0-36.0 RED CELL DISTRIBUTION WIDTH (test code=RDW) 16.6 % 11.6-16.2 RED CELL DISTRIBUTION WIDTH SD (test code=RDW-SD) 55.0 fL 37.0-51.0 PLATELET COUNT (test code=PLT) 72 K/mm3 150-450 MEAN PLATELET VOLUME (test code=MPV) 11.4 fL 6.7-11.0 IMMATURE GRANULOCYTE % (test code=IG%) 1.7 % 0.0-5.0 NUCLEATED RBC % (test code=NRBC%) 0.0 % 0-0 NEUTROPHIL # (test code=NT#) 4.15 K/mm3 1.8-7.7 IMMATURE GRANULOCYTE # (test code=IG#) 0.09 x10 3/uL 0-0.03 LYMPHOCYTE # (test code=LY#) 0.60 K/mm3 1.0-5.0 MONOCYTE # (test code=MO#) 0.42 K/mm3 0-0.8 EOSINOPHIL # (test code=EO#) 0.01 K/mm3 0.0-0.5 BASOPHIL # (test code=BA#) 0.01 K/mm3 0.0-0.2 NUCLEATED RBC # (test code=NRBC#) 0.00 K/mm3 0.0-0.1 MANUAL DIFF REQUIRED (test code=MDIFF) YES STAIN ACCEPTABILITY (test code=STN ACCEPTABLE) STAIN ACCEPTABLE TOTAL CELLS COUNTED (test code=TCC) 112 #CELLS SEGMENTED NEUTROPHILS (test code=SEG) 83.9 % 39-69 BAND NEUTROPHIL (test code=BAND) 7.1 % 0-10 LYMPHOCYTE (test code=LYMPH) 7.2 % 25-55 REACTIVE LYMPH (test code=RELYMPH) 0 % MONOCYTE (test code=MON) 1.8 % 0-10 EOSINOPHIL (test code=EOS) 0 % 0.0-5.0 BASOPHIL (test code=BASO) 0 % 0-1.0 METAMYELOCYTE (test code=META) 0 % 0-0 MYELOCYTE (test code=MYELO) 0 % 0.0-0.0 PROMYELOCYTE (test code=PROM) 0 % 0-0 POIKILOCYTOSIS (test code=POIK) 1+ ANISOCYTOSIS (test code=ANISO) 1+ MACROCYTOSIS (test code=MACR) 1+ PLATELET ESTIMATE (test code=PLTEST) DECREASED PLATELET MORPHOLOGY (test code=PLTMORPH) SIZE VARIABLE IMMATURE FORMS (test code=IMMAT) 0 % 0-0 COMPREHENSIVE METABOLIC [id number] 14:25:00* Test Item Value Reference Range Comments SODIUM (test code=NA) 144 mmol/L 136-145 POTASSIUM (test code=K) 3.5 mmol/L 3.5-5.1 CHLORIDE (test code=CL) 113.0 mmol/L 98-107 CARBON DIOXIDE (test code=CO2) 25.0 mmol/L 21-32 ANION GAP (test code=GAP) 9.5 10-20 GLUCOSE (test code=GLU) 82 mg/dL 74-106 BLOOD UREA NITROGEN (test code=BUN) 3 mg/dL 7-18 GLOMERULAR FILTRATION RATE (test code=GFR) > 60 mL/min >=60 Estimated GFR by using Modified MDRD formula.Chronic kidney disease is defined as either kidney damageor GFR <60 mL/min/1.73 m2 for >3 months. CREATININE (test code=CREAT) 0.30 mg/dL 0.55-1.02 Note change in reference range due to change in reagent. BUN/CREATININE RATIO (test code=BUN/CREA) 10.0 10-20 TOTAL PROTEIN (test code=PROT) 4.0 gram/dL 6.4-8.2 ALBUMIN (test code=ALB) 1.4 g/dL 3.4-5.0 GLOBULIN (test code=GLOB) 2.6 gram/dL 2.7-4.2 ALBUMIN/GLOBULIN RATIO (test code=A/G) 0.5 0.75-1.50 CALCIUM (test code=CA) 7.6 mg/dL 8.5-10.1 BILIRUBIN TOTAL (test code=BILT) 0.90 mg/dL 0.0-1.0 SGOT/AST (test code=AST) 40 IUnit/L 15-37 SGPT/ALT (test code=ALT) 26 IUnit/L 12-78 ALKALINE PHOSPHATASE TOTAL (test code=ALKP) 83 IUnit/L 45-117 Note change in reference range due to change in reagent. COMPREHENSIVE METABOLIC [id number] 14:21:00* Test Item Value Reference Range Comments SODIUM (test code=NA) 144 mmol/L 136-145 POTASSIUM (test code=K) 3.5 mmol/L 3.5-5.1 CHLORIDE (test code=CL) 113.0 mmol/L 98-107 CARBON DIOXIDE (test code=CO2) mmol/L 21-32 ANION GAP (test code=GAP) 10-20 GLUCOSE (test code=GLU) mg/dL 74-106 BLOOD UREA NITROGEN (test code=BUN) mg/dL 7-18 GLOMERULAR FILTRATION RATE (test code=GFR) mL/min >=60 CREATININE (test code=CREAT) mg/dL 0.55-1.02 BUN/CREATININE RATIO (test code=BUN/CREA) 10-20 TOTAL PROTEIN (test code=PROT) gram/dL 6.4-8.2 ALBUMIN (test code=ALB) g/dL 3.4-5.0 GLOBULIN (test code=GLOB) gram/dL 2.7-4.2 ALBUMIN/GLOBULIN RATIO (test code=A/G) 0.75-1.50 CALCIUM (test code=CA) mg/dL 8.5-10.1 BILIRUBIN TOTAL (test code=BILT) mg/dL 0.0-1.0 SGOT/AST (test code=AST) IUnit/L 15-37 SGPT/ALT (test code=ALT) IUnit/L 12-78 ALKALINE PHOSPHATASE TOTAL (test code=ALKP) IUnit/L 45-117 CBC W/MANUAL [id number] 14:17:00* Test Item Value Reference Range Comments WHITE BLOOD CELL (test code=WBC) 5.3 K/mm3 4.5-12.5 RED BLOOD CELL (test code=RBC) 3.60 mill/mm3 3.7-5.2 HEMOGLOBIN (test code=HGB) 10.8 gram/dL 11.5-15.5 HEMATOCRIT (test code=HCT) 33.0 % 36.0-46.0 MEAN CELL VOLUME (test code=MCV) 91.7 fL 80-98 MEAN CELL HGB (test code=MCH) 30.0 picogram 27.0-33.0 MEAN CELL HGB CONCETRATION (test code=MCHC) 32.7 gram/dL 33.0-36.0 RED CELL DISTRIBUTION WIDTH (test code=RDW) 16.6 % 11.6-16.2 RED CELL DISTRIBUTION WIDTH SD (test code=RDW-SD) 55.0 fL 37.0-51.0 PLATELET COUNT (test code=PLT) 72 K/mm3 150-450 MEAN PLATELET VOLUME (test code=MPV) 11.4 fL 6.7-11.0 IMMATURE GRANULOCYTE % (test code=IG%) 1.7 % 0.0-5.0 NUCLEATED RBC % (test code=NRBC%) 0.0 % 0-0 NEUTROPHIL # (test code=NT#) 4.15 K/mm3 1.8-7.7 IMMATURE GRANULOCYTE # (test code=IG#) 0.09 x10 3/uL 0-0.03 LYMPHOCYTE # (test code=LY#) 0.60 K/mm3 1.0-5.0 MONOCYTE # (test code=MO#) 0.42 K/mm3 0-0.8 EOSINOPHIL # (test code=EO#) 0.01 K/mm3 0.0-0.5 BASOPHIL # (test code=BA#) 0.01 K/mm3 0.0-0.2 NUCLEATED RBC # (test code=NRBC#) 0.00 K/mm3 0.0-0.1 MANUAL DIFF REQUIRED (test code=MDIFF) YES STAIN ACCEPTABILITY (test code=STN ACCEPTABLE) TOTAL CELLS COUNTED (test code=TCC) #CELLS SEGMENTED NEUTROPHILS (test code=SEG) % 39-69 LYMPHOCYTE (test code=LYMPH) % 25-55 MONOCYTE (test code=MON) % 0-10 EOSINOPHIL (test code=EOS) % 0.0-5.0 CABOT RINGS (test code=CAB) MORPHOLOGY COMMENT (test code=MOC) PLATELET ESTIMATE (test code=PLTEST) PLATELET MORPHOLOGY (test code=PLTMORPH) CBC W/MANUAL [id number] 14:17:00* Test Item Value Reference Range Comments WHITE BLOOD CELL (test code=WBC) 5.3 K/mm3 4.5-12.5 RED BLOOD CELL (test code=RBC) 3.60 mill/mm3 3.7-5.2 HEMOGLOBIN (test code=HGB) 10.8 gram/dL 11.5-15.5 HEMATOCRIT (test code=HCT) 33.0 % 36.0-46.0 MEAN CELL VOLUME (test code=MCV) 91.7 fL 80-98 MEAN CELL HGB (test code=MCH) 30.0 picogram 27.0-33.0 MEAN CELL HGB CONCETRATION (test code=MCHC) 32.7 gram/dL 33.0-36.0 RED CELL DISTRIBUTION WIDTH (test code=RDW) 16.6 % 11.6-16.2 RED CELL DISTRIBUTION WIDTH SD (test code=RDW-SD) 55.0 fL 37.0-51.0 PLATELET COUNT (test code=PLT) 72 K/mm3 150-450 MEAN PLATELET VOLUME (test code=MPV) 11.4 fL 6.7-11.0 IMMATURE GRANULOCYTE % (test code=IG%) 1.7 % 0.0-5.0 NUCLEATED RBC % (test code=NRBC%) 0.0 % 0-0 NEUTROPHIL # (test code=NT#) 4.15 K/mm3 1.8-7.7 IMMATURE GRANULOCYTE # (test code=IG#) 0.09 x10 3/uL 0-0.03 LYMPHOCYTE # (test code=LY#) 0.60 K/mm3 1.0-5.0 MONOCYTE # (test code=MO#) 0.42 K/mm3 0-0.8 EOSINOPHIL # (test code=EO#) 0.01 K/mm3 0.0-0.5 BASOPHIL # (test code=BA#) 0.01 K/mm3 0.0-0.2 NUCLEATED RBC # (test code=NRBC#) 0.00 K/mm3 0.0-0.1 MANUAL DIFF REQUIRED (test code=MDIFF) YES STAIN ACCEPTABILITY (test code=STN ACCEPTABLE) TOTAL CELLS COUNTED (test code=TCC) #CELLS SEGMENTED NEUTROPHILS (test code=SEG) % 39-69 LYMPHOCYTE (test code=LYMPH) % 25-55 MONOCYTE (test code=MON) % 0-10 EOSINOPHIL (test code=EOS) % 0.0-5.0 CABOT RINGS (test code=CAB) MORPHOLOGY COMMENT (test code=MOC) PLATELET ESTIMATE (test code=PLTEST) PLATELET MORPHOLOGY (test code=PLTMORPH) CBC W/MANUAL [id number] 14:17:00* Test Item Value Reference Range Comments WHITE BLOOD CELL (test code=WBC) 5.3 K/mm3 4.5-12.5 RED BLOOD CELL (test code=RBC) 3.60 mill/mm3 3.7-5.2 HEMOGLOBIN (test code=HGB) 10.8 gram/dL 11.5-15.5 HEMATOCRIT (test code=HCT) 33.0 % 36.0-46.0 MEAN CELL VOLUME (test code=MCV) 91.7 fL 80-98 MEAN CELL HGB (test code=MCH) 30.0 picogram 27.0-33.0 MEAN CELL HGB CONCETRATION (test code=MCHC) 32.7 gram/dL 33.0-36.0 RED CELL DISTRIBUTION WIDTH (test code=RDW) 16.6 % 11.6-16.2 RED CELL DISTRIBUTION WIDTH SD (test code=RDW-SD) 55.0 fL 37.0-51.0 PLATELET COUNT (test code=PLT) 72 K/mm3 150-450 MEAN PLATELET VOLUME (test code=MPV) 11.4 fL 6.7-11.0 IMMATURE GRANULOCYTE % (test code=IG%) 1.7 % 0.0-5.0 NUCLEATED RBC % (test code=NRBC%) 0.0 % 0-0 NEUTROPHIL # (test code=NT#) 4.15 K/mm3 1.8-7.7 IMMATURE GRANULOCYTE # (test code=IG#) 0.09 x10 3/uL 0-0.03 LYMPHOCYTE # (test code=LY#) 0.60 K/mm3 1.0-5.0 MONOCYTE # (test code=MO#) 0.42 K/mm3 0-0.8 EOSINOPHIL # (test code=EO#) 0.01 K/mm3 0.0-0.5 BASOPHIL # (test code=BA#) 0.01 K/mm3 0.0-0.2 NUCLEATED RBC # (test code=NRBC#) 0.00 K/mm3 0.0-0.1 MANUAL DIFF REQUIRED (test code=MDIFF) YES STAIN ACCEPTABILITY (test code=STN ACCEPTABLE) TOTAL CELLS COUNTED (test code=TCC) #CELLS SEGMENTED NEUTROPHILS (test code=SEG) % 39-69 LYMPHOCYTE (test code=LYMPH) % 25-55 MONOCYTE (test code=MON) % 0-10 EOSINOPHIL (test code=EOS) % 0.0-5.0 MORPHOLOGY COMMENT (test code=MOC) PLATELET ESTIMATE (test code=PLTEST) PLATELET MORPHOLOGY (test code=PLTMORPH) CBC W/MANUAL [id number] 14:17:00* Test Item Value Reference Range Comments WHITE BLOOD CELL (test code=WBC) 5.3 K/mm3 4.5-12.5 RED BLOOD CELL (test code=RBC) 3.60 mill/mm3 3.7-5.2 HEMOGLOBIN (test code=HGB) 10.8 gram/dL 11.5-15.5 HEMATOCRIT (test code=HCT) 33.0 % 36.0-46.0 MEAN CELL VOLUME (test code=MCV) 91.7 fL 80-98 MEAN CELL HGB (test code=MCH) 30.0 picogram 27.0-33.0 MEAN CELL HGB CONCETRATION (test code=MCHC) 32.7 gram/dL 33.0-36.0 RED CELL DISTRIBUTION WIDTH (test code=RDW) 16.6 % 11.6-16.2 RED CELL DISTRIBUTION WIDTH SD (test code=RDW-SD) 55.0 fL 37.0-51.0 PLATELET COUNT (test code=PLT) 72 K/mm3 150-450 MEAN PLATELET VOLUME (test code=MPV) 11.4 fL 6.7-11.0 IMMATURE GRANULOCYTE % (test code=IG%) 1.7 % 0.0-5.0 NUCLEATED RBC % (test code=NRBC%) 0.0 % 0-0 NEUTROPHIL # (test code=NT#) 4.15 K/mm3 1.8-7.7 IMMATURE GRANULOCYTE # (test code=IG#) 0.09 x10 3/uL 0-0.03 LYMPHOCYTE # (test code=LY#) 0.60 K/mm3 1.0-5.0 MONOCYTE # (test code=MO#) 0.42 K/mm3 0-0.8 EOSINOPHIL # (test code=EO#) 0.01 K/mm3 0.0-0.5 BASOPHIL # (test code=BA#) 0.01 K/mm3 0.0-0.2 NUCLEATED RBC # (test code=NRBC#) 0.00 K/mm3 0.0-0.1 MANUAL DIFF REQUIRED (test code=MDIFF) YES STAIN ACCEPTABILITY (test code=STN ACCEPTABLE) TOTAL CELLS COUNTED (test code=TCC) #CELLS SEGMENTED NEUTROPHILS (test code=SEG) % 39-69 LYMPHOCYTE (test code=LYMPH) % 25-55 MONOCYTE (test code=MON) % 0-10 MORPHOLOGY COMMENT (test code=MOC) PLATELET ESTIMATE (test code=PLTEST) PLATELET MORPHOLOGY (test code=PLTMORPH) CBC W/MANUAL [id number] 14:17:00* Test Item Value Reference Range Comments WHITE BLOOD CELL (test code=WBC) 5.3 K/mm3 4.5-12.5 RED BLOOD CELL (test code=RBC) 3.60 mill/mm3 3.7-5.2 HEMOGLOBIN (test code=HGB) 10.8 gram/dL 11.5-15.5 HEMATOCRIT (test code=HCT) 33.0 % 36.0-46.0 MEAN CELL VOLUME (test code=MCV) 91.7 fL 80-98 MEAN CELL HGB (test code=MCH) 30.0 picogram 27.0-33.0 MEAN CELL HGB CONCETRATION (test code=MCHC) 32.7 gram/dL 33.0-36.0 RED CELL DISTRIBUTION WIDTH (test code=RDW) 16.6 % 11.6-16.2 RED CELL DISTRIBUTION WIDTH SD (test code=RDW-SD) 55.0 fL 37.0-51.0 PLATELET COUNT (test code=PLT) 72 K/mm3 150-450 MEAN PLATELET VOLUME (test code=MPV) 11.4 fL 6.7-11.0 IMMATURE GRANULOCYTE % (test code=IG%) 1.7 % 0.0-5.0 NUCLEATED RBC % (test code=NRBC%) 0.0 % 0-0 NEUTROPHIL # (test code=NT#) 4.15 K/mm3 1.8-7.7 IMMATURE GRANULOCYTE # (test code=IG#) 0.09 x10 3/uL 0-0.03 LYMPHOCYTE # (test code=LY#) 0.60 K/mm3 1.0-5.0 MONOCYTE # (test code=MO#) 0.42 K/mm3 0-0.8 EOSINOPHIL # (test code=EO#) 0.01 K/mm3 0.0-0.5 BASOPHIL # (test code=BA#) 0.01 K/mm3 0.0-0.2 NUCLEATED RBC # (test code=NRBC#) 0.00 K/mm3 0.0-0.1 MANUAL DIFF REQUIRED (test code=MDIFF) YES STAIN ACCEPTABILITY (test code=STN ACCEPTABLE) TOTAL CELLS COUNTED (test code=TCC) #CELLS SEGMENTED NEUTROPHILS (test code=SEG) % 39-69 LYMPHOCYTE (test code=LYMPH) % 25-55 MONOCYTE (test code=MON) % 0-10 EOSINOPHIL (test code=EOS) % 0.0-5.0 CABOT RINGS (test code=CAB) MORPHOLOGY COMMENT (test code=MOC) PLATELET ESTIMATE (test code=PLTEST) PLATELET MORPHOLOGY (test code=PLTMORPH) [id number] 05:59:00* Test Item Value Reference Range Comments GLUBED (test code=GLUBED) 88 mg/dL 74-106 Performed by certified traffic control operator at [facility] [id number] 21:28:00* Test Item Value Reference Range Comments GLUBED (test code=GLUBED) 89 mg/dL 74-106 Performed by certified traffic control operator at [facility] CBC W/MANUAL [id number] 09:17:00* Test Item Value Reference Range Comments WHITE BLOOD CELL (test code=WBC) 6.6 K/mm3 4.5-12.5 RED BLOOD CELL (test code=RBC) 3.12 mill/mm3 3.7-5.2 HEMOGLOBIN (test code=HGB) 9.2 gram/dL 11.5-15.5 RESULT VERIFIED BY REPEAT ANALYSIS HEMATOCRIT (test code=HCT) 29.5 % 36.0-46.0 MEAN CELL VOLUME (test code=MCV) 94.6 fL 80-98 MEAN CELL HGB (test code=MCH) 29.5 picogram 27.0-33.0 MEAN CELL HGB CONCETRATION (test code=MCHC) 31.2 gram/dL 33.0-36.0 RED CELL DISTRIBUTION WIDTH (test code=RDW) 17.2 % 11.6-16.2 RED CELL DISTRIBUTION WIDTH SD (test code=RDW-SD) 58.7 fL 37.0-51.0 PLATELET COUNT (test code=PLT) 83 K/mm3 150-450 RESULT VERIFIED BY REPEAT ANALYSIS MEAN PLATELET VOLUME (test code=MPV) 11.6 fL 6.7-11.0 IMMATURE GRANULOCYTE % (test code=IG%) 0.8 % 0.0-5.0 NUCLEATED RBC % (test code=NRBC%) 0.0 % 0-0 NEUTROPHIL # (test code=NT#) 5.63 K/mm3 1.8-7.7 IMMATURE GRANULOCYTE # (test code=IG#) 0.05 x10 3/uL 0-0.03 LYMPHOCYTE # (test code=LY#) 0.43 K/mm3 1.0-5.0 MONOCYTE # (test code=MO#) 0.45 K/mm3 0-0.8 EOSINOPHIL # (test code=EO#) 0.01 K/mm3 0.0-0.5 BASOPHIL # (test code=BA#) 0.01 K/mm3 0.0-0.2 NUCLEATED RBC # (test code=NRBC#) 0.00 K/mm3 0.0-0.1 MANUAL DIFF REQUIRED (test code=MDIFF) YES STAIN ACCEPTABILITY (test code=STN ACCEPTABLE) STAIN ACCEPTABLE TOTAL CELLS COUNTED (test code=TCC) 113 #CELLS SEGMENTED NEUTROPHILS (test code=SEG) 88.5 % 39-69 BAND NEUTROPHIL (test code=BAND) 6.2 % 0-10 LYMPHOCYTE (test code=LYMPH) 3.5 % 25-55 REACTIVE LYMPH (test code=RELYMPH) 0 % MONOCYTE (test code=MON) 1.8 % 0-10 EOSINOPHIL (test code=EOS) 0 % 0.0-5.0 BASOPHIL (test code=BASO) 0 % 0-1.0 METAMYELOCYTE (test code=META) 0 % 0-0 MYELOCYTE (test code=MYELO) 0 % 0.0-0.0 PROMYELOCYTE (test code=PROM) 0 % 0-0 POIKILOCYTOSIS (test code=POIK) 3+ ANISOCYTOSIS (test code=ANISO) 3+ MACROCYTOSIS (test code=MACR) 3+ PLATELET ESTIMATE (test code=PLTEST) DECREASED PLATELET MORPHOLOGY (test code=PLTMORPH) SIZE VARIABLE IMMATURE FORMS (test code=IMMAT) 0 % 0-0 BASIC METABOLIC [id number] 07:23:00* Test Item Value Reference Range Comments SODIUM (test code=NA) 142 mmol/L 136-145 POTASSIUM (test code=K) 4.6 mmol/L 3.5-5.1 CHLORIDE (test code=CL) 112.0 mmol/L 98-107 CARBON DIOXIDE (test code=CO2) 23.0 mmol/L 21-32 ANION GAP (test code=GAP) 11.6 10-20 GLUCOSE (test code=GLU) 84 mg/dL 74-106 BLOOD UREA NITROGEN (test code=BUN) 3 mg/dL 7-18 GLOMERULAR FILTRATION RATE (test code=GFR) > 60 mL/min >=60 Estimated GFR by using Modified MDRD formula.Chronic kidney disease is defined as either kidney damageor GFR <60 mL/min/1.73 m2 for >3 months. CREATININE (test code=CREAT) 0.40 mg/dL 0.55-1.02 Note change in reference range due to change in reagent. BUN/CREATININE RATIO (test code=BUN/CREA) 7.5 10-20 CALCIUM (test code=CA) 7.9 mg/dL 8.5-10.1 CBC W/MANUAL [id number] 07:16:00* Test Item Value Reference Range Comments WHITE BLOOD CELL (test code=WBC) 6.6 K/mm3 4.5-12.5 RED BLOOD CELL (test code=RBC) 3.12 mill/mm3 3.7-5.2 HEMOGLOBIN (test code=HGB) 9.2 gram/dL 11.5-15.5 RESULT VERIFIED BY REPEAT ANALYSIS HEMATOCRIT (test code=HCT) 29.5 % 36.0-46.0 MEAN CELL VOLUME (test code=MCV) 94.6 fL 80-98 MEAN CELL HGB (test code=MCH) 29.5 picogram 27.0-33.0 MEAN CELL HGB CONCETRATION (test code=MCHC) 31.2 gram/dL 33.0-36.0 RED CELL DISTRIBUTION WIDTH (test code=RDW) 17.2 % 11.6-16.2 RED CELL DISTRIBUTION WIDTH SD (test code=RDW-SD) 58.7 fL 37.0-51.0 PLATELET COUNT (test code=PLT) 83 K/mm3 150-450 RESULT VERIFIED BY REPEAT ANALYSIS MEAN PLATELET VOLUME (test code=MPV) 11.6 fL 6.7-11.0 IMMATURE GRANULOCYTE % (test code=IG%) 0.8 % 0.0-5.0 NUCLEATED RBC % (test code=NRBC%) 0.0 % 0-0 NEUTROPHIL # (test code=NT#) 5.63 K/mm3 1.8-7.7 IMMATURE GRANULOCYTE # (test code=IG#) 0.05 x10 3/uL 0-0.03 LYMPHOCYTE # (test code=LY#) 0.43 K/mm3 1.0-5.0 MONOCYTE # (test code=MO#) 0.45 K/mm3 0-0.8 EOSINOPHIL # (test code=EO#) 0.01 K/mm3 0.0-0.5 BASOPHIL # (test code=BA#) 0.01 K/mm3 0.0-0.2 NUCLEATED RBC # (test code=NRBC#) 0.00 K/mm3 0.0-0.1 MANUAL DIFF REQUIRED (test code=MDIFF) YES STAIN ACCEPTABILITY (test code=STN ACCEPTABLE) TOTAL CELLS COUNTED (test code=TCC) #CELLS SEGMENTED NEUTROPHILS (test code=SEG) % 39-69 LYMPHOCYTE (test code=LYMPH) % 25-55 MONOCYTE (test code=MON) % 0-10 EOSINOPHIL (test code=EOS) % 0.0-5.0 CABOT RINGS (test code=CAB) MORPHOLOGY COMMENT (test code=MOC) PLATELET ESTIMATE (test code=PLTEST) PLATELET MORPHOLOGY (test code=PLTMORPH) CBC W/MANUAL [id number] 07:16:00* Test Item Value Reference Range Comments WHITE BLOOD CELL (test code=WBC) 6.6 K/mm3 4.5-12.5 RED BLOOD CELL (test code=RBC) 3.12 mill/mm3 3.7-5.2 HEMOGLOBIN (test code=HGB) 9.2 gram/dL 11.5-15.5 RESULT VERIFIED BY REPEAT ANALYSIS HEMATOCRIT (test code=HCT) 29.5 % 36.0-46.0 MEAN CELL VOLUME (test code=MCV) 94.6 fL 80-98 MEAN CELL HGB (test code=MCH) 29.5 picogram 27.0-33.0 MEAN CELL HGB CONCETRATION (test code=MCHC) 31.2 gram/dL 33.0-36.0 RED CELL DISTRIBUTION WIDTH (test code=RDW) 17.2 % 11.6-16.2 RED CELL DISTRIBUTION WIDTH SD (test code=RDW-SD) 58.7 fL 37.0-51.0 PLATELET COUNT (test code=PLT) 83 K/mm3 150-450 RESULT VERIFIED BY REPEAT ANALYSIS MEAN PLATELET VOLUME (test code=MPV) 11.6 fL 6.7-11.0 IMMATURE GRANULOCYTE % (test code=IG%) 0.8 % 0.0-5.0 NUCLEATED RBC % (test code=NRBC%) 0.0 % 0-0 NEUTROPHIL # (test code=NT#) 5.63 K/mm3 1.8-7.7 IMMATURE GRANULOCYTE # (test code=IG#) 0.05 x10 3/uL 0-0.03 LYMPHOCYTE # (test code=LY#) 0.43 K/mm3 1.0-5.0 MONOCYTE # (test code=MO#) 0.45 K/mm3 0-0.8 EOSINOPHIL # (test code=EO#) 0.01 K/mm3 0.0-0.5 BASOPHIL # (test code=BA#) 0.01 K/mm3 0.0-0.2 NUCLEATED RBC # (test code=NRBC#) 0.00 K/mm3 0.0-0.1 MANUAL DIFF REQUIRED (test code=MDIFF) YES STAIN ACCEPTABILITY (test code=STN ACCEPTABLE) TOTAL CELLS COUNTED (test code=TCC) #CELLS SEGMENTED NEUTROPHILS (test code=SEG) % 39-69 LYMPHOCYTE (test code=LYMPH) % 25-55 MONOCYTE (test code=MON) % 0-10 EOSINOPHIL (test code=EOS) % 0.0-5.0 MORPHOLOGY COMMENT (test code=MOC) PLATELET ESTIMATE (test code=PLTEST) PLATELET MORPHOLOGY (test code=PLTMORPH) CBC W/MANUAL [id number] 07:16:00* Test Item Value Reference Range Comments WHITE BLOOD CELL (test code=WBC) 6.6 K/mm3 4.5-12.5 RED BLOOD CELL (test code=RBC) 3.12 mill/mm3 3.7-5.2 HEMOGLOBIN (test code=HGB) 9.2 gram/dL 11.5-15.5 RESULT VERIFIED BY REPEAT ANALYSIS HEMATOCRIT (test code=HCT) 29.5 % 36.0-46.0 MEAN CELL VOLUME (test code=MCV) 94.6 fL 80-98 MEAN CELL HGB (test code=MCH) 29.5 picogram 27.0-33.0 MEAN CELL HGB CONCETRATION (test code=MCHC) 31.2 gram/dL 33.0-36.0 RED CELL DISTRIBUTION WIDTH (test code=RDW) 17.2 % 11.6-16.2 RED CELL DISTRIBUTION WIDTH SD (test code=RDW-SD) 58.7 fL 37.0-51.0 PLATELET COUNT (test code=PLT) 83 K/mm3 150-450 RESULT VERIFIED BY REPEAT ANALYSIS MEAN PLATELET VOLUME (test code=MPV) 11.6 fL 6.7-11.0 IMMATURE GRANULOCYTE % (test code=IG%) 0.8 % 0.0-5.0 NUCLEATED RBC % (test code=NRBC%) 0.0 % 0-0 NEUTROPHIL # (test code=NT#) 5.63 K/mm3 1.8-7.7 IMMATURE GRANULOCYTE # (test code=IG#) 0.05 x10 3/uL 0-0.03 LYMPHOCYTE # (test code=LY#) 0.43 K/mm3 1.0-5.0 MONOCYTE # (test code=MO#) 0.45 K/mm3 0-0.8 EOSINOPHIL # (test code=EO#) 0.01 K/mm3 0.0-0.5 BASOPHIL # (test code=BA#) 0.01 K/mm3 0.0-0.2 NUCLEATED RBC # (test code=NRBC#) 0.00 K/mm3 0.0-0.1 MANUAL DIFF REQUIRED (test code=MDIFF) YES STAIN ACCEPTABILITY (test code=STN ACCEPTABLE) TOTAL CELLS COUNTED (test code=TCC) #CELLS SEGMENTED NEUTROPHILS (test code=SEG) % 39-69 LYMPHOCYTE (test code=LYMPH) % 25-55 MONOCYTE (test code=MON) % 0-10 MORPHOLOGY COMMENT (test code=MOC) PLATELET ESTIMATE (test code=PLTEST) PLATELET MORPHOLOGY (test code=PLTMORPH) CBC W/MANUAL [id number] 07:15:00* Test Item Value Reference Range Comments WHITE BLOOD CELL (test code=WBC) 6.6 K/mm3 4.5-12.5 RED BLOOD CELL (test code=RBC) 3.12 mill/mm3 3.7-5.2 HEMOGLOBIN (test code=HGB) 9.2 gram/dL 11.5-15.5 RESULT VERIFIED BY REPEAT ANALYSIS HEMATOCRIT (test code=HCT) 29.5 % 36.0-46.0 MEAN CELL VOLUME (test code=MCV) 94.6 fL 80-98 MEAN CELL HGB (test code=MCH) 29.5 picogram 27.0-33.0 MEAN CELL HGB CONCETRATION (test code=MCHC) 31.2 gram/dL 33.0-36.0 RED CELL DISTRIBUTION WIDTH (test code=RDW) 17.2 % 11.6-16.2 RED CELL DISTRIBUTION WIDTH SD (test code=RDW-SD) 58.7 fL 37.0-51.0 PLATELET COUNT (test code=PLT) 83 K/mm3 150-450 RESULT VERIFIED BY REPEAT ANALYSIS MEAN PLATELET VOLUME (test code=MPV) 11.6 fL 6.7-11.0 IMMATURE GRANULOCYTE % (test code=IG%) 0.8 % 0.0-5.0 NUCLEATED RBC % (test code=NRBC%) 0.0 % 0-0 NEUTROPHIL # (test code=NT#) 5.63 K/mm3 1.8-7.7 IMMATURE GRANULOCYTE # (test code=IG#) 0.05 x10 3/uL 0-0.03 LYMPHOCYTE # (test code=LY#) 0.43 K/mm3 1.0-5.0 MONOCYTE # (test code=MO#) 0.45 K/mm3 0-0.8 EOSINOPHIL # (test code=EO#) 0.01 K/mm3 0.0-0.5 BASOPHIL # (test code=BA#) 0.01 K/mm3 0.0-0.2 NUCLEATED RBC # (test code=NRBC#) 0.00 K/mm3 0.0-0.1 MANUAL DIFF REQUIRED (test code=MDIFF) YES STAIN ACCEPTABILITY (test code=STN ACCEPTABLE) TOTAL CELLS COUNTED (test code=TCC) #CELLS SEGMENTED NEUTROPHILS (test code=SEG) % 39-69 LYMPHOCYTE (test code=LYMPH) % 25-55 MONOCYTE (test code=MON) % 0-10 EOSINOPHIL (test code=EOS) % 0.0-5.0 CABOT RINGS (test code=CAB) MORPHOLOGY COMMENT (test code=MOC) PLATELET ESTIMATE (test code=PLTEST) PLATELET MORPHOLOGY (test code=PLTMORPH) CBC W/MANUAL [id number] 07:15:00* Test Item Value Reference Range Comments WHITE BLOOD CELL (test code=WBC) 6.6 K/mm3 4.5-12.5 RED BLOOD CELL (test code=RBC) 3.12 mill/mm3 3.7-5.2 HEMOGLOBIN (test code=HGB) 9.2 gram/dL 11.5-15.5 RESULT VERIFIED BY REPEAT ANALYSIS HEMATOCRIT (test code=HCT) 29.5 % 36.0-46.0 MEAN CELL VOLUME (test code=MCV) 94.6 fL 80-98 MEAN CELL HGB (test code=MCH) 29.5 picogram 27.0-33.0 MEAN CELL HGB CONCETRATION (test code=MCHC) 31.2 gram/dL 33.0-36.0 RED CELL DISTRIBUTION WIDTH (test code=RDW) 17.2 % 11.6-16.2 RED CELL DISTRIBUTION WIDTH SD (test code=RDW-SD) 58.7 fL 37.0-51.0 PLATELET COUNT (test code=PLT) 83 K/mm3 150-450 RESULT VERIFIED BY REPEAT ANALYSIS MEAN PLATELET VOLUME (test code=MPV) 11.6 fL 6.7-11.0 IMMATURE GRANULOCYTE % (test code=IG%) 0.8 % 0.0-5.0 NUCLEATED RBC % (test code=NRBC%) 0.0 % 0-0 NEUTROPHIL # (test code=NT#) 5.63 K/mm3 1.8-7.7 IMMATURE GRANULOCYTE # (test code=IG#) 0.05 x10 3/uL 0-0.03 LYMPHOCYTE # (test code=LY#) 0.43 K/mm3 1.0-5.0 MONOCYTE # (test code=MO#) 0.45 K/mm3 0-0.8 EOSINOPHIL # (test code=EO#) 0.01 K/mm3 0.0-0.5 BASOPHIL # (test code=BA#) 0.01 K/mm3 0.0-0.2 NUCLEATED RBC # (test code=NRBC#) 0.00 K/mm3 0.0-0.1 MANUAL DIFF REQUIRED (test code=MDIFF) YES STAIN ACCEPTABILITY (test code=STN ACCEPTABLE) TOTAL CELLS COUNTED (test code=TCC) #CELLS SEGMENTED NEUTROPHILS (test code=SEG) % 39-69 LYMPHOCYTE (test code=LYMPH) % 25-55 MONOCYTE (test code=MON) % 0-10 EOSINOPHIL (test code=EOS) % 0.0-5.0 CABOT RINGS (test code=CAB) MORPHOLOGY COMMENT (test code=MOC) PLATELET ESTIMATE (test code=PLTEST) PLATELET MORPHOLOGY (test code=PLTMORPH) BASIC METABOLIC [id number] 19:01:00* Test Item Value Reference Range Comments SODIUM (test code=NA) 141 mmol/L 136-145 POTASSIUM (test code=K) 2.7 mmol/L 3.5-5.1 Results called to [id number] by V.LAB.SPR 03/19/19 1901Critical results verified and read back by Nurse? Y CHLORIDE (test code=CL) 108.0 mmol/L 98-107 CARBON DIOXIDE (test code=CO2) 27.0 mmol/L 21-32 ANION GAP (test code=GAP) 8.7 10-20 GLUCOSE (test code=GLU) 92 mg/dL 74-106 BLOOD UREA NITROGEN (test code=BUN) 4 mg/dL 7-18 GLOMERULAR FILTRATION RATE (test code=GFR) > 60 mL/min >=60 Estimated GFR by using Modified MDRD formula.Chronic kidney disease is defined as either kidney damageor GFR <60 mL/min/1.73 m2 for >3 months. CREATININE (test code=CREAT) 0.20 mg/dL 0.55-1.02 Note change in reference range due to change in reagent. BUN/CREATININE RATIO (test code=BUN/CREA) 20.0 10-20 CALCIUM (test code=CA) 7.7 mg/dL 8.5-10.1 RN [place] DRAWIMG FROM PORT SENDING TUBES DOWN. V.LAB.RP106/04/19 1112CBC W/MANUAL [id number] 18:28:00* Test Item Value Reference Range Comments WHITE BLOOD CELL (test code=WBC) 3.8 K/mm3 4.5-12.5 RED BLOOD CELL (test code=RBC) 2.38 mill/mm3 3.7-5.2 HEMOGLOBIN (test code=HGB) 7.2 gram/dL 11.5-15.5 HEMATOCRIT (test code=HCT) 22.1 % 36.0-46.0 MEAN CELL VOLUME (test code=MCV) 92.9 fL 80-98 MEAN CELL HGB (test code=MCH) 30.3 picogram 27.0-33.0 MEAN CELL HGB CONCETRATION (test code=MCHC) 32.6 gram/dL 33.0-36.0 RED CELL DISTRIBUTION WIDTH (test code=RDW) 16.9 % 11.6-16.2 RED CELL DISTRIBUTION WIDTH SD (test code=RDW-SD) 56.0 fL 37.0-51.0 PLATELET COUNT (test code=PLT) 57 K/mm3 150-450 MEAN PLATELET VOLUME (test code=MPV) 11.9 fL 6.7-11.0 IMMATURE GRANULOCYTE % (test code=IG%) 0.5 % 0.0-5.0 NUCLEATED RBC % (test code=NRBC%) 0.0 % 0-0 NEUTROPHIL # (test code=NT#) 3.11 K/mm3 1.8-7.7 IMMATURE GRANULOCYTE # (test code=IG#) 0.02 x10 3/uL 0-0.03 LYMPHOCYTE # (test code=LY#) 0.39 K/mm3 1.0-5.0 MONOCYTE # (test code=MO#) 0.29 K/mm3 0-0.8 EOSINOPHIL # (test code=EO#) 0.03 K/mm3 0.0-0.5 BASOPHIL # (test code=BA#) 0.00 K/mm3 0.0-0.2 NUCLEATED RBC # (test code=NRBC#) 0.00 K/mm3 0.0-0.1 MANUAL DIFF REQUIRED (test code=MDIFF) YES STAIN ACCEPTABILITY (test code=STN ACCEPTABLE) STAIN ACCEPTABLE TOTAL CELLS COUNTED (test code=TCC) 115 #CELLS SEGMENTED NEUTROPHILS (test code=SEG) 92.2 % 39-69 BAND NEUTROPHIL (test code=BAND) 0 % 0-10 LYMPHOCYTE (test code=LYMPH) 2.6 % 25-55 REACTIVE LYMPH (test code=RELYMPH) 0 % MONOCYTE (test code=MON) 3.5 % 0-10 EOSINOPHIL (test code=EOS) 1.7 % 0.0-5.0 BASOPHIL (test code=BASO) 0 % 0-1.0 METAMYELOCYTE (test code=META) 0 % 0-0 MYELOCYTE (test code=MYELO) 0 % 0.0-0.0 PROMYELOCYTE (test code=PROM) 0 % 0-0 HYPOCHROMIA (test code=HYPO) 1+ ANISOCYTOSIS (test code=ANISO) 1+ PLATELET ESTIMATE (test code=PLTEST) DECREASED PLATELET MORPHOLOGY (test code=PLTMORPH) SIZE VARIABLE IMMATURE FORMS (test code=IMMAT) 0 % 0-0 [id number] 18:12:00* Test Item Value Reference Range Comments MAGNESIUM (test code=MAG) 1.6 mg/dL 1.8-2.4 RN [place] SENDING TUBES DOWN, DRAWING FROM PORT. V.LAB.RP106/02/01 1111PHOSPHORUS 2019-03-19 18:11:00* Test Item Value Reference Range Comments PHOSPHORUS (test code=PHOS) 3.2 mg/dL 2.5-4.9 RN [place] SENDING TUBES DOWN, DRAWING FROM PORT. V.LAB.RP106 1112D-DIMER 2019-03-19 18:06:00* Test Item Value Reference Range Comments D-DIMER (test code=DDIMER) 548.00 ng/mLFEU 0-500 Results called to [id number] by [email or web address] 03/19/19 1806Critical results verified and read back by Nurse? YClinical Cut-off value for D-Dimer is 500 ng/mL FEU. Comment: The [employer] D- Dimer assay is intended for use asan aid in the diagnosis of venous thromboembolism (VTE)[deep vein thrombosis (DVT) or pulmonary embolism (PE)].The measurement of D-Dimer should not be used as an aid inthe diagnosis of VTE, in patient with: -Therapeutic dose anticoagulant therapy for >24 hours - Fibrinolytic therapy within previous 7 days -Trauma or surgery within previous 4 weeks -Disseminated malignancies -Aortic aneurysm -Sepsis, severe infections, pneumonia, severe skin infections -Liver cirrhosis - CBC W/MANUAL [id number] 17:36:00* Test Item Value Reference Range Comments WHITE BLOOD CELL (test code=WBC) 3.8 K/mm3 4.5-12.5 RED BLOOD CELL (test code=RBC) 2.38 mill/mm3 3.7-5.2 HEMOGLOBIN (test code=HGB) 7.2 gram/dL 11.5-15.5 HEMATOCRIT (test code=HCT) 22.1 % 36.0-46.0 MEAN CELL VOLUME (test code=MCV) 92.9 fL 80-98 MEAN CELL HGB (test code=MCH) 30.3 picogram 27.0-33.0 MEAN CELL HGB CONCETRATION (test code=MCHC) 32.6 gram/dL 33.0-36.0 RED CELL DISTRIBUTION WIDTH (test code=RDW) 16.9 % 11.6-16.2 RED CELL DISTRIBUTION WIDTH SD (test code=RDW-SD) 56.0 fL 37.0-51.0 PLATELET COUNT (test code=PLT) 57 K/mm3 150-450 MEAN PLATELET VOLUME (test code=MPV) 11.9 fL 6.7-11.0 IMMATURE GRANULOCYTE % (test code=IG%) 0.5 % 0.0-5.0 NUCLEATED RBC % (test code=NRBC%) 0.0 % 0-0 NEUTROPHIL # (test code=NT#) 3.11 K/mm3 1.8-7.7 IMMATURE GRANULOCYTE # (test code=IG#) 0.02 x10 3/uL 0-0.03 LYMPHOCYTE # (test code=LY#) 0.39 K/mm3 1.0-5.0 MONOCYTE # (test code=MO#) 0.29 K/mm3 0-0.8 EOSINOPHIL # (test code=EO#) 0.03 K/mm3 0.0-0.5 BASOPHIL # (test code=BA#) 0.00 K/mm3 0.0-0.2 NUCLEATED RBC # (test code=NRBC#) 0.00 K/mm3 0.0-0.1 MANUAL DIFF REQUIRED (test code=MDIFF) YES STAIN ACCEPTABILITY (test code=STN ACCEPTABLE) TOTAL CELLS COUNTED (test code=TCC) #CELLS SEGMENTED NEUTROPHILS (test code=SEG) % 39-69 LYMPHOCYTE (test code=LYMPH) % 25-55 MONOCYTE (test code=MON) % 0-10 EOSINOPHIL (test code=EOS) % 0.0-5.0 CABOT RINGS (test code=CAB) MORPHOLOGY COMMENT (test code=MOC) PLATELET ESTIMATE (test code=PLTEST) PLATELET MORPHOLOGY (test code=PLTMORPH) CBC W/MANUAL [id number] 17:36:00* Test Item Value Reference Range Comments WHITE BLOOD CELL (test code=WBC) 3.8 K/mm3 4.5-12.5 RED BLOOD CELL (test code=RBC) 2.38 mill/mm3 3.7-5.2 HEMOGLOBIN (test code=HGB) 7.2 gram/dL 11.5-15.5 HEMATOCRIT (test code=HCT) 22.1 % 36.0-46.0 MEAN CELL VOLUME (test code=MCV) 92.9 fL 80-98 MEAN CELL HGB (test code=MCH) 30.3 picogram 27.0-33.0 MEAN CELL HGB CONCETRATION (test code=MCHC) 32.6 gram/dL 33.0-36.0 RED CELL DISTRIBUTION WIDTH (test code=RDW) 16.9 % 11.6-16.2 RED CELL DISTRIBUTION WIDTH SD (test code=RDW-SD) 56.0 fL 37.0-51.0 PLATELET COUNT (test code=PLT) 57 K/mm3 150-450 MEAN PLATELET VOLUME (test code=MPV) 11.9 fL 6.7-11.0 IMMATURE GRANULOCYTE % (test code=IG%) 0.5 % 0.0-5.0 NUCLEATED RBC % (test code=NRBC%) 0.0 % 0-0 NEUTROPHIL # (test code=NT#) 3.11 K/mm3 1.8-7.7 IMMATURE GRANULOCYTE # (test code=IG#) 0.02 x10 3/uL 0-0.03 LYMPHOCYTE # (test code=LY#) 0.39 K/mm3 1.0-5.0 MONOCYTE # (test code=MO#) 0.29 K/mm3 0-0.8 EOSINOPHIL # (test code=EO#) 0.03 K/mm3 0.0-0.5 BASOPHIL # (test code=BA#) 0.00 K/mm3 0.0-0.2 NUCLEATED RBC # (test code=NRBC#) 0.00 K/mm3 0.0-0.1 MANUAL DIFF REQUIRED (test code=MDIFF) YES STAIN ACCEPTABILITY (test code=STN ACCEPTABLE) TOTAL CELLS COUNTED (test code=TCC) #CELLS SEGMENTED NEUTROPHILS (test code=SEG) % 39-69 LYMPHOCYTE (test code=LYMPH) % 25-55 MONOCYTE (test code=MON) % 0-10 EOSINOPHIL (test code=EOS) % 0.0-5.0 CABOT RINGS (test code=CAB) MORPHOLOGY COMMENT (test code=MOC) PLATELET ESTIMATE (test code=PLTEST) PLATELET MORPHOLOGY (test code=PLTMORPH) CBC W/MANUAL [id number] 17:36:00* Test Item Value Reference Range Comments WHITE BLOOD CELL (test code=WBC) 3.8 K/mm3 4.5-12.5 RED BLOOD CELL (test code=RBC) 2.38 mill/mm3 3.7-5.2 HEMOGLOBIN (test code=HGB) 7.2 gram/dL 11.5-15.5 HEMATOCRIT (test code=HCT) 22.1 % 36.0-46.0 MEAN CELL VOLUME (test code=MCV) 92.9 fL 80-98 MEAN CELL HGB (test code=MCH) 30.3 picogram 27.0-33.0 MEAN CELL HGB CONCETRATION (test code=MCHC) 32.6 gram/dL 33.0-36.0 RED CELL DISTRIBUTION WIDTH (test code=RDW) 16.9 % 11.6-16.2 RED CELL DISTRIBUTION WIDTH SD (test code=RDW-SD) 56.0 fL 37.0-51.0 PLATELET COUNT (test code=PLT) 57 K/mm3 150-450 MEAN PLATELET VOLUME (test code=MPV) 11.9 fL 6.7-11.0 IMMATURE GRANULOCYTE % (test code=IG%) 0.5 % 0.0-5.0 NUCLEATED RBC % (test code=NRBC%) 0.0 % 0-0 NEUTROPHIL # (test code=NT#) 3.11 K/mm3 1.8-7.7 IMMATURE GRANULOCYTE # (test code=IG#) 0.02 x10 3/uL 0-0.03 LYMPHOCYTE # (test code=LY#) 0.39 K/mm3 1.0-5.0 MONOCYTE # (test code=MO#) 0.29 K/mm3 0-0.8 EOSINOPHIL # (test code=EO#) 0.03 K/mm3 0.0-0.5 BASOPHIL # (test code=BA#) 0.00 K/mm3 0.0-0.2 NUCLEATED RBC # (test code=NRBC#) 0.00 K/mm3 0.0-0.1 MANUAL DIFF REQUIRED (test code=MDIFF) YES STAIN ACCEPTABILITY (test code=STN ACCEPTABLE) TOTAL CELLS COUNTED (test code=TCC) #CELLS SEGMENTED NEUTROPHILS (test code=SEG) % 39-69 LYMPHOCYTE (test code=LYMPH) % 25-55 MONOCYTE (test code=MON) % 0-10 EOSINOPHIL (test code=EOS) % 0.0-5.0 MORPHOLOGY COMMENT (test code=MOC) PLATELET ESTIMATE (test code=PLTEST) PLATELET MORPHOLOGY (test code=PLTMORPH) CBC W/MANUAL [id number] 17:36:00* Test Item Value Reference Range Comments WHITE BLOOD CELL (test code=WBC) 3.8 K/mm3 4.5-12.5 RED BLOOD CELL (test code=RBC) 2.38 mill/mm3 3.7-5.2 HEMOGLOBIN (test code=HGB) 7.2 gram/dL 11.5-15.5 HEMATOCRIT (test code=HCT) 22.1 % 36.0-46.0 MEAN CELL VOLUME (test code=MCV) 92.9 fL 80-98 MEAN CELL HGB (test code=MCH) 30.3 picogram 27.0-33.0 MEAN CELL HGB CONCETRATION (test code=MCHC) 32.6 gram/dL 33.0-36.0 RED CELL DISTRIBUTION WIDTH (test code=RDW) 16.9 % 11.6-16.2 RED CELL DISTRIBUTION WIDTH SD (test code=RDW-SD) 56.0 fL 37.0-51.0 PLATELET COUNT (test code=PLT) 57 K/mm3 150-450 MEAN PLATELET VOLUME (test code=MPV) 11.9 fL 6.7-11.0 IMMATURE GRANULOCYTE % (test code=IG%) 0.5 % 0.0-5.0 NUCLEATED RBC % (test code=NRBC%) 0.0 % 0-0 NEUTROPHIL # (test code=NT#) 3.11 K/mm3 1.8-7.7 IMMATURE GRANULOCYTE # (test code=IG#) 0.02 x10 3/uL 0-0.03 LYMPHOCYTE # (test code=LY#) 0.39 K/mm3 1.0-5.0 MONOCYTE # (test code=MO#) 0.29 K/mm3 0-0.8 EOSINOPHIL # (test code=EO#) 0.03 K/mm3 0.0-0.5 BASOPHIL # (test code=BA#) 0.00 K/mm3 0.0-0.2 NUCLEATED RBC # (test code=NRBC#) 0.00 K/mm3 0.0-0.1 MANUAL DIFF REQUIRED (test code=MDIFF) YES STAIN ACCEPTABILITY (test code=STN ACCEPTABLE) TOTAL CELLS COUNTED (test code=TCC) #CELLS SEGMENTED NEUTROPHILS (test code=SEG) % 39-69 LYMPHOCYTE (test code=LYMPH) % 25-55 MONOCYTE (test code=MON) % 0-10 MORPHOLOGY COMMENT (test code=MOC) PLATELET ESTIMATE (test code=PLTEST) PLATELET MORPHOLOGY (test code=PLTMORPH) CBC W/MANUAL [id number] 17:36:00* Test Item Value Reference Range Comments WHITE BLOOD CELL (test code=WBC) 3.8 K/mm3 4.5-12.5 RED BLOOD CELL (test code=RBC) 2.38 mill/mm3 3.7-5.2 HEMOGLOBIN (test code=HGB) 7.2 gram/dL 11.5-15.5 HEMATOCRIT (test code=HCT) 22.1 % 36.0-46.0 MEAN CELL VOLUME (test code=MCV) 92.9 fL 80-98 MEAN CELL HGB (test code=MCH) 30.3 picogram 27.0-33.0 MEAN CELL HGB CONCETRATION (test code=MCHC) 32.6 gram/dL 33.0-36.0 RED CELL DISTRIBUTION WIDTH (test code=RDW) 16.9 % 11.6-16.2 RED CELL DISTRIBUTION WIDTH SD (test code=RDW-SD) 56.0 fL 37.0-51.0 PLATELET COUNT (test code=PLT) 57 K/mm3 150-450 MEAN PLATELET VOLUME (test code=MPV) 11.9 fL 6.7-11.0 IMMATURE GRANULOCYTE % (test code=IG%) 0.5 % 0.0-5.0 NUCLEATED RBC % (test code=NRBC%) 0.0 % 0-0 NEUTROPHIL # (test code=NT#) 3.11 K/mm3 1.8-7.7 IMMATURE GRANULOCYTE # (test code=IG#) 0.02 x10 3/uL 0-0.03 LYMPHOCYTE # (test code=LY#) 0.39 K/mm3 1.0-5.0 MONOCYTE # (test code=MO#) 0.29 K/mm3 0-0.8 EOSINOPHIL # (test code=EO#) 0.03 K/mm3 0.0-0.5 BASOPHIL # (test code=BA#) 0.00 K/mm3 0.0-0.2 NUCLEATED RBC # (test code=NRBC#) 0.00 K/mm3 0.0-0.1 MANUAL DIFF REQUIRED (test code=MDIFF) YES STAIN ACCEPTABILITY (test code=STN ACCEPTABLE) TOTAL CELLS COUNTED (test code=TCC) #CELLS SEGMENTED NEUTROPHILS (test code=SEG) % 39-69 LYMPHOCYTE (test code=LYMPH) % 25-55 MONOCYTE (test code=MON) % 0-10 EOSINOPHIL (test code=EOS) % 0.0-5.0 CABOT RINGS (test code=CAB) MORPHOLOGY COMMENT (test code=MOC) PLATELET ESTIMATE (test code=PLTEST) PLATELET MORPHOLOGY (test code=PLTMORPH) [id number] 15:45:00* Test Item Value Reference Range Comments GLUBED (test code=GLUBED) 93 mg/dL 74-106 Performed by certified traffic control operator at [facility] [id number] 11:44:00* Test Item Value Reference Range Comments GLUBED (test code=GLUBED) 102 mg/dL 74-106 Performed by certified traffic control operator at [facility] CBC W/MANUAL [id number] 22:04:00* Test Item Value Reference Range Comments WHITE BLOOD CELL (test code=WBC) 3.8 K/mm3 4.5-12.5 RED BLOOD CELL (test code=RBC) 2.59 mill/mm3 3.7-5.2 HEMOGLOBIN (test code=HGB) 7.8 gram/dL 11.5-15.5 RESULT VERIFIED BY REPEAT ANALYSIS HEMATOCRIT (test code=HCT) 24.2 % 36.0-46.0 MEAN CELL VOLUME (test code=MCV) 93.4 fL 80-98 MEAN CELL HGB (test code=MCH) 30.1 picogram 27.0-33.0 MEAN CELL HGB CONCETRATION (test code=MCHC) 32.2 gram/dL 33.0-36.0 RED CELL DISTRIBUTION WIDTH (test code=RDW) 16.9 % 11.6-16.2 RED CELL DISTRIBUTION WIDTH SD (test code=RDW-SD) 56.6 fL 37.0-51.0 PLATELET COUNT (test code=PLT) 60 K/mm3 150-450 MEAN PLATELET VOLUME (test code=MPV) 12.3 fL 6.7-11.0 IMMATURE GRANULOCYTE % (test code=IG%) 0.8 % 0.0-5.0 NUCLEATED RBC % (test code=NRBC%) 0.0 % 0-0 NEUTROPHIL # (test code=NT#) 2.72 K/mm3 1.8-7.7 IMMATURE GRANULOCYTE # (test code=IG#) 0.03 x10 3/uL 0-0.03 LYMPHOCYTE # (test code=LY#) 0.55 K/mm3 1.0-5.0 MONOCYTE # (test code=MO#) 0.45 K/mm3 0-0.8 EOSINOPHIL # (test code=EO#) 0.02 K/mm3 0.0-0.5 BASOPHIL # (test code=BA#) 0.00 K/mm3 0.0-0.2 NUCLEATED RBC # (test code=NRBC#) 0.00 K/mm3 0.0-0.1 MANUAL DIFF REQUIRED (test code=MDIFF) YES STAIN ACCEPTABILITY (test code=STN ACCEPTABLE) STAIN ACCEPTABLE TOTAL CELLS COUNTED (test code=TCC) 115 #CELLS SEGMENTED NEUTROPHILS (test code=SEG) 77.4 % 39-69 BAND NEUTROPHIL (test code=BAND) 6.9 % 0-10 LYMPHOCYTE (test code=LYMPH) 8.7 % 25-55 REACTIVE LYMPH (test code=RELYMPH) 0 % MONOCYTE (test code=MON) 6.1 % 0-10 EOSINOPHIL (test code=EOS) 0.9 % 0.0-5.0 BASOPHIL (test code=BASO) 0 % 0-1.0 METAMYELOCYTE (test code=META) 0 % 0-0 MYELOCYTE (test code=MYELO) 0 % 0.0-0.0 PROMYELOCYTE (test code=PROM) 0 % 0-0 POIKILOCYTOSIS (test code=POIK) 2+ ANISOCYTOSIS (test code=ANISO) 1+ MACROCYTOSIS (test code=MACR) 1+ CRENATED CELLS (test code=CREN) 1+ SCARLET CELLS (test code=SCARLET) 1+ NONE PLATELET ESTIMATE (test code=PLTEST) DECREASED PLATELET MORPHOLOGY (test code=PLTMORPH) SIZE VARIABLE IMMATURE FORMS (test code=IMMAT) 0 % 0-0 CBC W/MANUAL [id number] 21:12:00* Test Item Value Reference Range Comments WHITE BLOOD CELL (test code=WBC) 3.8 K/mm3 4.5-12.5 RED BLOOD CELL (test code=RBC) 2.59 mill/mm3 3.7-5.2 HEMOGLOBIN (test code=HGB) 7.8 gram/dL 11.5-15.5 RESULT VERIFIED BY REPEAT ANALYSIS HEMATOCRIT (test code=HCT) 24.2 % 36.0-46.0 MEAN CELL VOLUME (test code=MCV) 93.4 fL 80-98 MEAN CELL HGB (test code=MCH) 30.1 picogram 27.0-33.0 MEAN CELL HGB CONCETRATION (test code=MCHC) 32.2 gram/dL 33.0-36.0 RED CELL DISTRIBUTION WIDTH (test code=RDW) 16.9 % 11.6-16.2 RED CELL DISTRIBUTION WIDTH SD (test code=RDW-SD) 56.6 fL 37.0-51.0 PLATELET COUNT (test code=PLT) 60 K/mm3 150-450 MEAN PLATELET VOLUME (test code=MPV) 12.3 fL 6.7-11.0 IMMATURE GRANULOCYTE % (test code=IG%) 0.8 % 0.0-5.0 NUCLEATED RBC % (test code=NRBC%) 0.0 % 0-0 NEUTROPHIL # (test code=NT#) 2.72 K/mm3 1.8-7.7 IMMATURE GRANULOCYTE # (test code=IG#) 0.03 x10 3/uL 0-0.03 LYMPHOCYTE # (test code=LY#) 0.55 K/mm3 1.0-5.0 MONOCYTE # (test code=MO#) 0.45 K/mm3 0-0.8 EOSINOPHIL # (test code=EO#) 0.02 K/mm3 0.0-0.5 BASOPHIL # (test code=BA#) 0.00 K/mm3 0.0-0.2 NUCLEATED RBC # (test code=NRBC#) 0.00 K/mm3 0.0-0.1 MANUAL DIFF REQUIRED (test code=MDIFF) YES STAIN ACCEPTABILITY (test code=STN ACCEPTABLE) TOTAL CELLS COUNTED (test code=TCC) #CELLS SEGMENTED NEUTROPHILS (test code=SEG) % 39-69 LYMPHOCYTE (test code=LYMPH) % 25-55 MONOCYTE (test code=MON) % 0-10 EOSINOPHIL (test code=EOS) % 0.0-5.0 CABOT RINGS (test code=CAB) MORPHOLOGY COMMENT (test code=MOC) PLATELET ESTIMATE (test code=PLTEST) PLATELET MORPHOLOGY (test code=PLTMORPH) CBC W/MANUAL [id number] 21:12:00* Test Item Value Reference Range Comments WHITE BLOOD CELL (test code=WBC) 3.8 K/mm3 4.5-12.5 RED BLOOD CELL (test code=RBC) 2.59 mill/mm3 3.7-5.2 HEMOGLOBIN (test code=HGB) 7.8 gram/dL 11.5-15.5 RESULT VERIFIED BY REPEAT ANALYSIS HEMATOCRIT (test code=HCT) 24.2 % 36.0-46.0 MEAN CELL VOLUME (test code=MCV) 93.4 fL 80-98 MEAN CELL HGB (test code=MCH) 30.1 picogram 27.0-33.0 MEAN CELL HGB CONCETRATION (test code=MCHC) 32.2 gram/dL 33.0-36.0 RED CELL DISTRIBUTION WIDTH (test code=RDW) 16.9 % 11.6-16.2 RED CELL DISTRIBUTION WIDTH SD (test code=RDW-SD) 56.6 fL 37.0-51.0 PLATELET COUNT (test code=PLT) 60 K/mm3 150-450 MEAN PLATELET VOLUME (test code=MPV) 12.3 fL 6.7-11.0 IMMATURE GRANULOCYTE % (test code=IG%) 0.8 % 0.0-5.0 NUCLEATED RBC % (test code=NRBC%) 0.0 % 0-0 NEUTROPHIL # (test code=NT#) 2.72 K/mm3 1.8-7.7 IMMATURE GRANULOCYTE # (test code=IG#) 0.03 x10 3/uL 0-0.03 LYMPHOCYTE # (test code=LY#) 0.55 K/mm3 1.0-5.0 MONOCYTE # (test code=MO#) 0.45 K/mm3 0-0.8 EOSINOPHIL # (test code=EO#) 0.02 K/mm3 0.0-0.5 BASOPHIL # (test code=BA#) 0.00 K/mm3 0.0-0.2 NUCLEATED RBC # (test code=NRBC#) 0.00 K/mm3 0.0-0.1 MANUAL DIFF REQUIRED (test code=MDIFF) YES STAIN ACCEPTABILITY (test code=STN ACCEPTABLE) TOTAL CELLS COUNTED (test code=TCC) #CELLS SEGMENTED NEUTROPHILS (test code=SEG) % 39-69 LYMPHOCYTE (test code=LYMPH) % 25-55 MONOCYTE (test code=MON) % 0-10 EOSINOPHIL (test code=EOS) % 0.0-5.0 CABOT RINGS (test code=CAB) MORPHOLOGY COMMENT (test code=MOC) PLATELET ESTIMATE (test code=PLTEST) PLATELET MORPHOLOGY (test code=PLTMORPH) CBC W/MANUAL [id number] 21:12:00* Test Item Value Reference Range Comments WHITE BLOOD CELL (test code=WBC) 3.8 K/mm3 4.5-12.5 RED BLOOD CELL (test code=RBC) 2.59 mill/mm3 3.7-5.2 HEMOGLOBIN (test code=HGB) 7.8 gram/dL 11.5-15.5 RESULT VERIFIED BY REPEAT ANALYSIS HEMATOCRIT (test code=HCT) 24.2 % 36.0-46.0 MEAN CELL VOLUME (test code=MCV) 93.4 fL 80-98 MEAN CELL HGB (test code=MCH) 30.1 picogram 27.0-33.0 MEAN CELL HGB CONCETRATION (test code=MCHC) 32.2 gram/dL 33.0-36.0 RED CELL DISTRIBUTION WIDTH (test code=RDW) 16.9 % 11.6-16.2 RED CELL DISTRIBUTION WIDTH SD (test code=RDW-SD) 56.6 fL 37.0-51.0 PLATELET COUNT (test code=PLT) 60 K/mm3 150-450 MEAN PLATELET VOLUME (test code=MPV) 12.3 fL 6.7-11.0 IMMATURE GRANULOCYTE % (test code=IG%) 0.8 % 0.0-5.0 NUCLEATED RBC % (test code=NRBC%) 0.0 % 0-0 NEUTROPHIL # (test code=NT#) 2.72 K/mm3 1.8-7.7 IMMATURE GRANULOCYTE # (test code=IG#) 0.03 x10 3/uL 0-0.03 LYMPHOCYTE # (test code=LY#) 0.55 K/mm3 1.0-5.0 MONOCYTE # (test code=MO#) 0.45 K/mm3 0-0.8 EOSINOPHIL # (test code=EO#) 0.02 K/mm3 0.0-0.5 BASOPHIL # (test code=BA#) 0.00 K/mm3 0.0-0.2 NUCLEATED RBC # (test code=NRBC#) 0.00 K/mm3 0.0-0.1 MANUAL DIFF REQUIRED (test code=MDIFF) YES STAIN ACCEPTABILITY (test code=STN ACCEPTABLE) TOTAL CELLS COUNTED (test code=TCC) #CELLS SEGMENTED NEUTROPHILS (test code=SEG) % 39-69 LYMPHOCYTE (test code=LYMPH) % 25-55 MONOCYTE (test code=MON) % 0-10 EOSINOPHIL (test code=EOS) % 0.0-5.0 MORPHOLOGY COMMENT (test code=MOC) PLATELET ESTIMATE (test code=PLTEST) PLATELET MORPHOLOGY (test code=PLTMORPH) CBC W/MANUAL [id number] 21:12:00* Test Item Value Reference Range Comments WHITE BLOOD CELL (test code=WBC) 3.8 K/mm3 4.5-12.5 RED BLOOD CELL (test code=RBC) 2.59 mill/mm3 3.7-5.2 HEMOGLOBIN (test code=HGB) 7.8 gram/dL 11.5-15.5 RESULT VERIFIED BY REPEAT ANALYSIS HEMATOCRIT (test code=HCT) 24.2 % 36.0-46.0 MEAN CELL VOLUME (test code=MCV) 93.4 fL 80-98 MEAN CELL HGB (test code=MCH) 30.1 picogram 27.0-33.0 MEAN CELL HGB CONCETRATION (test code=MCHC) 32.2 gram/dL 33.0-36.0 RED CELL DISTRIBUTION WIDTH (test code=RDW) 16.9 % 11.6-16.2 RED CELL DISTRIBUTION WIDTH SD (test code=RDW-SD) 56.6 fL 37.0-51.0 PLATELET COUNT (test code=PLT) 60 K/mm3 150-450 MEAN PLATELET VOLUME (test code=MPV) 12.3 fL 6.7-11.0 IMMATURE GRANULOCYTE % (test code=IG%) 0.8 % 0.0-5.0 NUCLEATED RBC % (test code=NRBC%) 0.0 % 0-0 NEUTROPHIL # (test code=NT#) 2.72 K/mm3 1.8-7.7 IMMATURE GRANULOCYTE # (test code=IG#) 0.03 x10 3/uL 0-0.03 LYMPHOCYTE # (test code=LY#) 0.55 K/mm3 1.0-5.0 MONOCYTE # (test code=MO#) 0.45 K/mm3 0-0.8 EOSINOPHIL # (test code=EO#) 0.02 K/mm3 0.0-0.5 BASOPHIL # (test code=BA#) 0.00 K/mm3 0.0-0.2 NUCLEATED RBC # (test code=NRBC#) 0.00 K/mm3 0.0-0.1 MANUAL DIFF REQUIRED (test code=MDIFF) YES STAIN ACCEPTABILITY (test code=STN ACCEPTABLE) TOTAL CELLS COUNTED (test code=TCC) #CELLS SEGMENTED NEUTROPHILS (test code=SEG) % 39-69 LYMPHOCYTE (test code=LYMPH) % 25-55 MONOCYTE (test code=MON) % 0-10 MORPHOLOGY COMMENT (test code=MOC) PLATELET ESTIMATE (test code=PLTEST) PLATELET MORPHOLOGY (test code=PLTMORPH) CBC W/MANUAL [id number] 21:12:00* Test Item Value Reference Range Comments WHITE BLOOD CELL (test code=WBC) 3.8 K/mm3 4.5-12.5 RED BLOOD CELL (test code=RBC) 2.59 mill/mm3 3.7-5.2 HEMOGLOBIN (test code=HGB) 7.8 gram/dL 11.5-15.5 RESULT VERIFIED BY REPEAT ANALYSIS HEMATOCRIT (test code=HCT) 24.2 % 36.0-46.0 MEAN CELL VOLUME (test code=MCV) 93.4 fL 80-98 MEAN CELL HGB (test code=MCH) 30.1 picogram 27.0-33.0 MEAN CELL HGB CONCETRATION (test code=MCHC) 32.2 gram/dL 33.0-36.0 RED CELL DISTRIBUTION WIDTH (test code=RDW) 16.9 % 11.6-16.2 RED CELL DISTRIBUTION WIDTH SD (test code=RDW-SD) 56.6 fL 37.0-51.0 PLATELET COUNT (test code=PLT) 60 K/mm3 150-450 MEAN PLATELET VOLUME (test code=MPV) 12.3 fL 6.7-11.0 IMMATURE GRANULOCYTE % (test code=IG%) 0.8 % 0.0-5.0 NUCLEATED RBC % (test code=NRBC%) 0.0 % 0-0 NEUTROPHIL # (test code=NT#) 2.72 K/mm3 1.8-7.7 IMMATURE GRANULOCYTE # (test code=IG#) 0.03 x10 3/uL 0-0.03 LYMPHOCYTE # (test code=LY#) 0.55 K/mm3 1.0-5.0 MONOCYTE # (test code=MO#) 0.45 K/mm3 0-0.8 EOSINOPHIL # (test code=EO#) 0.02 K/mm3 0.0-0.5 BASOPHIL # (test code=BA#) 0.00 K/mm3 0.0-0.2 NUCLEATED RBC # (test code=NRBC#) 0.00 K/mm3 0.0-0.1 MANUAL DIFF REQUIRED (test code=MDIFF) YES STAIN ACCEPTABILITY (test code=STN ACCEPTABLE) TOTAL CELLS COUNTED (test code=TCC) #CELLS SEGMENTED NEUTROPHILS (test code=SEG) % 39-69 LYMPHOCYTE (test code=LYMPH) % 25-55 MONOCYTE (test code=MON) % 0-10 EOSINOPHIL (test code=EOS) % 0.0-5.0 CABOT RINGS (test code=CAB) MORPHOLOGY COMMENT (test code=MOC) PLATELET ESTIMATE (test code=PLTEST) PLATELET MORPHOLOGY (test code=PLTMORPH) [id number] 15:47:00* Test Item Value Reference Range Comments GLUBED (test code=GLUBED) 94 mg/dL 74-106 Performed by certified traffic control operator at [facility] PROTHROMBIN [id number] 14:27:00* Test Item Value Reference Range Comments PROTHROMBIN TIME PATIENT (test code=PTP) 12.8 seconds 9.0-14.0 INTERNATIONAL NORMAL RATIO (test code=INR) 1.1 0.8-1.2 The therapeutic range for oral anticoagulant therapy formost indications is an international normalized ratio (INR)of between 2.0 and 3.0. The recommended therapeutic INRrange for various clinical situations is listed below: Clinical Situation INR range Pulmonary e mbolism treatment (2.0-3.0)Venous thrombosis treatmentVenous thrombosis prophylaxis (high risk surgery)Prevention of systemic embolism from: Acute myocardial infarction Valvular heart disease Atrial fibrillation Mechanical prosthetic heart valves (2.5-3.5) 03/18/19 1201IS PATIENT ON ANTICOAGULANTS? [id number] 11:46:00* Test Item Value Reference Range Comments GLUBED (test code=GLUBED) 92 mg/dL 74-106 Performed by certified traffic control operator at [facility] [id number] 06:00:00* Test Item Value Reference Range Comments GLUBED (test code=GLUBED) 78 mg/dL 74-106 Performed by certified traffic control operator at [facility] [id number] 12:02:00* Test Item Value Reference Range Comments GLUBED (test code=GLUBED) 94 mg/dL 74-106 Performed by certified traffic control operator at [facility] CBC W/MANUAL [id number] 09:17:00* Test Item Value Reference Range Comments WHITE BLOOD CELL (test code=WBC) 4.4 K/mm3 4.5-12.5 RED BLOOD CELL (test code=RBC) 3.50 mill/mm3 3.7-5.2 HEMOGLOBIN (test code=HGB) 10.3 gram/dL 11.5-15.5 RESULT VERIFIED BY REPEAT ANALYSIS HEMATOCRIT (test code=HCT) 32.0 % 36.0-46.0 MEAN CELL VOLUME (test code=MCV) 91.4 fL 80-98 MEAN CELL HGB (test code=MCH) 29.4 picogram 27.0-33.0 MEAN CELL HGB CONCETRATION (test code=MCHC) 32.2 gram/dL 33.0-36.0 RED CELL DISTRIBUTION WIDTH (test code=RDW) 17.9 % 11.6-16.2 RED CELL DISTRIBUTION WIDTH SD (test code=RDW-SD) 59.3 fL 37.0-51.0 PLATELET COUNT (test code=PLT) 70 K/mm3 150-450 MEAN PLATELET VOLUME (test code=MPV) 12.0 fL 6.7-11.0 IMMATURE GRANULOCYTE % (test code=IG%) 0.7 % 0.0-5.0 NUCLEATED RBC % (test code=NRBC%) 0.0 % 0-0 NEUTROPHIL # (test code=NT#) 3.19 K/mm3 1.8-7.7 IMMATURE GRANULOCYTE # (test code=IG#) 0.03 x10 3/uL 0-0.03 LYMPHOCYTE # (test code=LY#) 0.65 K/mm3 1.0-5.0 MONOCYTE # (test code=MO#) 0.44 K/mm3 0-0.8 EOSINOPHIL # (test code=EO#) 0.03 K/mm3 0.0-0.5 BASOPHIL # (test code=BA#) 0.01 K/mm3 0.0-0.2 NUCLEATED RBC # (test code=NRBC#) 0.00 K/mm3 0.0-0.1 MANUAL DIFF REQUIRED (test code=MDIFF) YES STAIN ACCEPTABILITY (test code=STN ACCEPTABLE) STAIN ACCEPTABLE TOTAL CELLS COUNTED (test code=TCC) 114 #CELLS SEGMENTED NEUTROPHILS (test code=SEG) 85.1 % 39-69 BAND NEUTROPHIL (test code=BAND) 0 % 0-10 LYMPHOCYTE (test code=LYMPH) 7.0 % 25-55 REACTIVE LYMPH (test code=RELYMPH) 0 % MONOCYTE (test code=MON) 7.0 % 0-10 EOSINOPHIL (test code=EOS) 0 % 0.0-5.0 BASOPHIL (test code=BASO) 0.9 % 0-1.0 METAMYELOCYTE (test code=META) 0 % 0-0 MYELOCYTE (test code=MYELO) 0 % 0.0-0.0 PROMYELOCYTE (test code=PROM) 0 % 0-0 ANISOCYTOSIS (test code=ANISO) 1+ MACROCYTOSIS (test code=MACR) 1+ PLATELET ESTIMATE (test code=PLTEST) DECREASED IMMATURE FORMS (test code=IMMAT) 0 % 0-0 BASIC METABOLIC [id number] 08:27:00* Test Item Value Reference Range Comments SODIUM (test code=NA) 139 mmol/L 136-145 POTASSIUM (test code=K) 3.6 mmol/L 3.5-5.1 CHLORIDE (test code=CL) 106.0 mmol/L 98-107 CARBON DIOXIDE (test code=CO2) 26.0 mmol/L 21-32 ANION GAP (test code=GAP) 10.6 10-20 GLUCOSE (test code=GLU) 88 mg/dL 74-106 BLOOD UREA NITROGEN (test code=BUN) 7 mg/dL 7-18 GLOMERULAR FILTRATION RATE (test code=GFR) > 60 mL/min >=60 Estimated GFR by using Modified MDRD formula.Chronic kidney disease is defined as either kidney damageor GFR <60 mL/min/1.73 m2 for >3 months. CREATININE (test code=CREAT) 0.30 mg/dL 0.55-1.02 Note change in reference range due to change in reagent. BUN/CREATININE RATIO (test code=BUN/CREA) 23.3 10-20 CALCIUM (test code=CA) 8.4 mg/dL 8.5-10.1 [id number] 08:27:00* Test Item Value Reference Range Comments MAGNESIUM (test code=MAG) 2.4 mg/dL 1.8-2.4 CBC W/MANUAL [id number] 08:24:00* Test Item Value Reference Range Comments WHITE BLOOD CELL (test code=WBC) 4.4 K/mm3 4.5-12.5 RED BLOOD CELL (test code=RBC) 3.50 mill/mm3 3.7-5.2 HEMOGLOBIN (test code=HGB) 10.3 gram/dL 11.5-15.5 RESULT VERIFIED BY REPEAT ANALYSIS HEMATOCRIT (test code=HCT) 32.0 % 36.0-46.0 MEAN CELL VOLUME (test code=MCV) 91.4 fL 80-98 MEAN CELL HGB (test code=MCH) 29.4 picogram 27.0-33.0 MEAN CELL HGB CONCETRATION (test code=MCHC) 32.2 gram/dL 33.0-36.0 RED CELL DISTRIBUTION WIDTH (test code=RDW) 17.9 % 11.6-16.2 RED CELL DISTRIBUTION WIDTH SD (test code=RDW-SD) 59.3 fL 37.0-51.0 PLATELET COUNT (test code=PLT) 70 K/mm3 150-450 MEAN PLATELET VOLUME (test code=MPV) 12.0 fL 6.7-11.0 IMMATURE GRANULOCYTE % (test code=IG%) 0.7 % 0.0-5.0 NUCLEATED RBC % (test code=NRBC%) 0.0 % 0-0 NEUTROPHIL # (test code=NT#) 3.19 K/mm3 1.8-7.7 IMMATURE GRANULOCYTE # (test code=IG#) 0.03 x10 3/uL 0-0.03 LYMPHOCYTE # (test code=LY#) 0.65 K/mm3 1.0-5.0 MONOCYTE # (test code=MO#) 0.44 K/mm3 0-0.8 EOSINOPHIL # (test code=EO#) 0.03 K/mm3 0.0-0.5 BASOPHIL # (test code=BA#) 0.01 K/mm3 0.0-0.2 NUCLEATED RBC # (test code=NRBC#) 0.00 K/mm3 0.0-0.1 MANUAL DIFF REQUIRED (test code=MDIFF) YES STAIN ACCEPTABILITY (test code=STN ACCEPTABLE) TOTAL CELLS COUNTED (test code=TCC) #CELLS SEGMENTED NEUTROPHILS (test code=SEG) % 39-69 LYMPHOCYTE (test code=LYMPH) % 25-55 MONOCYTE (test code=MON) % 0-10 EOSINOPHIL (test code=EOS) % 0.0-5.0 CABOT RINGS (test code=CAB) MORPHOLOGY COMMENT (test code=MOC) PLATELET ESTIMATE (test code=PLTEST) PLATELET MORPHOLOGY (test code=PLTMORPH) CBC W/MANUAL [id number] 08:24:00* Test Item Value Reference Range Comments WHITE BLOOD CELL (test code=WBC) 4.4 K/mm3 4.5-12.5 RED BLOOD CELL (test code=RBC) 3.50 mill/mm3 3.7-5.2 HEMOGLOBIN (test code=HGB) 10.3 gram/dL 11.5-15.5 RESULT VERIFIED BY REPEAT ANALYSIS HEMATOCRIT (test code=HCT) 32.0 % 36.0-46.0 MEAN CELL VOLUME (test code=MCV) 91.4 fL 80-98 MEAN CELL HGB (test code=MCH) 29.4 picogram 27.0-33.0 MEAN CELL HGB CONCETRATION (test code=MCHC) 32.2 gram/dL 33.0-36.0 RED CELL DISTRIBUTION WIDTH (test code=RDW) 17.9 % 11.6-16.2 RED CELL DISTRIBUTION WIDTH SD (test code=RDW-SD) 59.3 fL 37.0-51.0 PLATELET COUNT (test code=PLT) 70 K/mm3 150-450 MEAN PLATELET VOLUME (test code=MPV) 12.0 fL 6.7-11.0 IMMATURE GRANULOCYTE % (test code=IG%) 0.7 % 0.0-5.0 NUCLEATED RBC % (test code=NRBC%) 0.0 % 0-0 NEUTROPHIL # (test code=NT#) 3.19 K/mm3 1.8-7.7 IMMATURE GRANULOCYTE # (test code=IG#) 0.03 x10 3/uL 0-0.03 LYMPHOCYTE # (test code=LY#) 0.65 K/mm3 1.0-5.0 MONOCYTE # (test code=MO#) 0.44 K/mm3 0-0.8 EOSINOPHIL # (test code=EO#) 0.03 K/mm3 0.0-0.5 BASOPHIL # (test code=BA#) 0.01 K/mm3 0.0-0.2 NUCLEATED RBC # (test code=NRBC#) 0.00 K/mm3 0.0-0.1 MANUAL DIFF REQUIRED (test code=MDIFF) YES STAIN ACCEPTABILITY (test code=STN ACCEPTABLE) TOTAL CELLS COUNTED (test code=TCC) #CELLS SEGMENTED NEUTROPHILS (test code=SEG) % 39-69 LYMPHOCYTE (test code=LYMPH) % 25-55 MONOCYTE (test code=MON) % 0-10 EOSINOPHIL (test code=EOS) % 0.0-5.0 MORPHOLOGY COMMENT (test code=MOC) PLATELET ESTIMATE (test code=PLTEST) PLATELET MORPHOLOGY (test code=PLTMORPH) CBC W/MANUAL [id number] 08:24:00* Test Item Value Reference Range Comments WHITE BLOOD CELL (test code=WBC) 4.4 K/mm3 4.5-12.5 RED BLOOD CELL (test code=RBC) 3.50 mill/mm3 3.7-5.2 HEMOGLOBIN (test code=HGB) 10.3 gram/dL 11.5-15.5 RESULT VERIFIED BY REPEAT ANALYSIS HEMATOCRIT (test code=HCT) 32.0 % 36.0-46.0 MEAN CELL VOLUME (test code=MCV) 91.4 fL 80-98 MEAN CELL HGB (test code=MCH) 29.4 picogram 27.0-33.0 MEAN CELL HGB CONCETRATION (test code=MCHC) 32.2 gram/dL 33.0-36.0 RED CELL DISTRIBUTION WIDTH (test code=RDW) 17.9 % 11.6-16.2 RED CELL DISTRIBUTION WIDTH SD (test code=RDW-SD) 59.3 fL 37.0-51.0 PLATELET COUNT (test code=PLT) 70 K/mm3 150-450 MEAN PLATELET VOLUME (test code=MPV) 12.0 fL 6.7-11.0 IMMATURE GRANULOCYTE % (test code=IG%) 0.7 % 0.0-5.0 NUCLEATED RBC % (test code=NRBC%) 0.0 % 0-0 NEUTROPHIL # (test code=NT#) 3.19 K/mm3 1.8-7.7 IMMATURE GRANULOCYTE # (test code=IG#) 0.03 x10 3/uL 0-0.03 LYMPHOCYTE # (test code=LY#) 0.65 K/mm3 1.0-5.0 MONOCYTE # (test code=MO#) 0.44 K/mm3 0-0.8 EOSINOPHIL # (test code=EO#) 0.03 K/mm3 0.0-0.5 BASOPHIL # (test code=BA#) 0.01 K/mm3 0.0-0.2 NUCLEATED RBC # (test code=NRBC#) 0.00 K/mm3 0.0-0.1 MANUAL DIFF REQUIRED (test code=MDIFF) YES STAIN ACCEPTABILITY (test code=STN ACCEPTABLE) TOTAL CELLS COUNTED (test code=TCC) #CELLS SEGMENTED NEUTROPHILS (test code=SEG) % 39-69 LYMPHOCYTE (test code=LYMPH) % 25-55 MONOCYTE (test code=MON) % 0-10 MORPHOLOGY COMMENT (test code=MOC) PLATELET ESTIMATE (test code=PLTEST) PLATELET MORPHOLOGY (test code=PLTMORPH) CBC W/MANUAL [id number] 08:23:00* Test Item Value Reference Range Comments WHITE BLOOD CELL (test code=WBC) 4.4 K/mm3 4.5-12.5 RED BLOOD CELL (test code=RBC) 3.50 mill/mm3 3.7-5.2 HEMOGLOBIN (test code=HGB) 10.3 gram/dL 11.5-15.5 RESULT VERIFIED BY REPEAT ANALYSIS HEMATOCRIT (test code=HCT) 32.0 % 36.0-46.0 MEAN CELL VOLUME (test code=MCV) 91.4 fL 80-98 MEAN CELL HGB (test code=MCH) 29.4 picogram 27.0-33.0 MEAN CELL HGB CONCETRATION (test code=MCHC) 32.2 gram/dL 33.0-36.0 RED CELL DISTRIBUTION WIDTH (test code=RDW) 17.9 % 11.6-16.2 RED CELL DISTRIBUTION WIDTH SD (test code=RDW-SD) 59.3 fL 37.0-51.0 PLATELET COUNT (test code=PLT) 70 K/mm3 150-450 MEAN PLATELET VOLUME (test code=MPV) 12.0 fL 6.7-11.0 IMMATURE GRANULOCYTE % (test code=IG%) 0.7 % 0.0-5.0 NUCLEATED RBC % (test code=NRBC%) 0.0 % 0-0 NEUTROPHIL # (test code=NT#) 3.19 K/mm3 1.8-7.7 IMMATURE GRANULOCYTE # (test code=IG#) 0.03 x10 3/uL 0-0.03 LYMPHOCYTE # (test code=LY#) 0.65 K/mm3 1.0-5.0 MONOCYTE # (test code=MO#) 0.44 K/mm3 0-0.8 EOSINOPHIL # (test code=EO#) 0.03 K/mm3 0.0-0.5 BASOPHIL # (test code=BA#) 0.01 K/mm3 0.0-0.2 NUCLEATED RBC # (test code=NRBC#) 0.00 K/mm3 0.0-0.1 MANUAL DIFF REQUIRED (test code=MDIFF) YES STAIN ACCEPTABILITY (test code=STN ACCEPTABLE) TOTAL CELLS COUNTED (test code=TCC) #CELLS SEGMENTED NEUTROPHILS (test code=SEG) % 39-69 LYMPHOCYTE (test code=LYMPH) % 25-55 MONOCYTE (test code=MON) % 0-10 EOSINOPHIL (test code=EOS) % 0.0-5.0 CABOT RINGS (test code=CAB) MORPHOLOGY COMMENT (test code=MOC) PLATELET ESTIMATE (test code=PLTEST) PLATELET MORPHOLOGY (test code=PLTMORPH) CBC W/MANUAL [id number] 08:23:00* Test Item Value Reference Range Comments WHITE BLOOD CELL (test code=WBC) 4.4 K/mm3 4.5-12.5 RED BLOOD CELL (test code=RBC) 3.50 mill/mm3 3.7-5.2 HEMOGLOBIN (test code=HGB) 10.3 gram/dL 11.5-15.5 RESULT VERIFIED BY REPEAT ANALYSIS HEMATOCRIT (test code=HCT) 32.0 % 36.0-46.0 MEAN CELL VOLUME (test code=MCV) 91.4 fL 80-98 MEAN CELL HGB (test code=MCH) 29.4 picogram 27.0-33.0 MEAN CELL HGB CONCETRATION (test code=MCHC) 32.2 gram/dL 33.0-36.0 RED CELL DISTRIBUTION WIDTH (test code=RDW) 17.9 % 11.6-16.2 RED CELL DISTRIBUTION WIDTH SD (test code=RDW-SD) 59.3 fL 37.0-51.0 PLATELET COUNT (test code=PLT) 70 K/mm3 150-450 MEAN PLATELET VOLUME (test code=MPV) 12.0 fL 6.7-11.0 IMMATURE GRANULOCYTE % (test code=IG%) 0.7 % 0.0-5.0 NUCLEATED RBC % (test code=NRBC%) 0.0 % 0-0 NEUTROPHIL # (test code=NT#) 3.19 K/mm3 1.8-7.7 IMMATURE GRANULOCYTE # (test code=IG#) 0.03 x10 3/uL 0-0.03 LYMPHOCYTE # (test code=LY#) 0.65 K/mm3 1.0-5.0 MONOCYTE # (test code=MO#) 0.44 K/mm3 0-0.8 EOSINOPHIL # (test code=EO#) 0.03 K/mm3 0.0-0.5 BASOPHIL # (test code=BA#) 0.01 K/mm3 0.0-0.2 NUCLEATED RBC # (test code=NRBC#) 0.00 K/mm3 0.0-0.1 MANUAL DIFF REQUIRED (test code=MDIFF) YES STAIN ACCEPTABILITY (test code=STN ACCEPTABLE) TOTAL CELLS COUNTED (test code=TCC) #CELLS SEGMENTED NEUTROPHILS (test code=SEG) % 39-69 LYMPHOCYTE (test code=LYMPH) % 25-55 MONOCYTE (test code=MON) % 0-10 EOSINOPHIL (test code=EOS) % 0.0-5.0 CABOT RINGS (test code=CAB) MORPHOLOGY COMMENT (test code=MOC) PLATELET ESTIMATE (test code=PLTEST) PLATELET MORPHOLOGY (test code=PLTMORPH) [id number] 06:18:00* Test Item Value Reference Range Comments GLUBED (test code=GLUBED) 87 mg/dL 74-106 Performed by certified traffic control operator at [facility] [id number] 20:13:00* Test Item Value Reference Range Comments GLUBED (test code=GLUBED) 81 mg/dL 74-106 Performed by certified traffic control operator at [facility] [id number] 05:59:00* Test Item Value Reference Range Comments GLUBED (test code=GLUBED) 94 mg/dL 74-106 Performed by certified traffic control operator at [facility] PROTHROMBIN [id number] 04:49:00* Test Item Value Reference Range Comments PROTHROMBIN TIME PATIENT (test code=PTP) 15.2 seconds 9.0-14.0 INTERNATIONAL NORMAL RATIO (test code=INR) 1.3 0.8-1.2 The therapeutic range for oral anticoagulant therapy formost indications is an international normalized ratio (INR)of between 2.0 and 3.0. The recommended therapeutic INRrange for various clinical situations is listed below: Clinical Situation INR range Pulmonary e mbolism treatment (2.0-3.0)Venous thrombosis treatmentVenous thrombosis prophylaxis (high risk surgery)Prevention of systemic embolism from: Acute myocardial infarction Valvular heart disease Atrial fibrillation Mechanical prosthetic heart valves (2.5-3.5) IS PATIENT ON ANTICOAGULANTS? NBASIC METABOLIC [id number] 04:47:00* Test Item Value Reference Range Comments SODIUM (test code=NA) 143 mmol/L 136-145 POTASSIUM (test code=K) 3.6 mmol/L 3.5-5.1 CHLORIDE (test code=CL) 108.0 mmol/L 98-107 CARBON DIOXIDE (test code=CO2) 30.0 mmol/L 21-32 ANION GAP (test code=GAP) 8.6 10-20 GLUCOSE (test code=GLU) 80 mg/dL 74-106 BLOOD UREA NITROGEN (test code=BUN) 8 mg/dL 7-18 GLOMERULAR FILTRATION RATE (test code=GFR) > 60 mL/min >=60 Estimated GFR by using Modified MDRD formula.Chronic kidney disease is defined as either kidney damageor GFR <60 mL/min/1.73 m2 for >3 months. CREATININE (test code=CREAT) 0.30 mg/dL 0.55-1.02 Note change in reference range due to change in reagent. BUN/CREATININE RATIO (test code=BUN/CREA) 26.7 10-20 CALCIUM (test code=CA) 7.8 mg/dL 8.5-10.1 [id number] 04:47:00* Test Item Value Reference Range Comments PHOSPHORUS (test code=PHOS) 3.5 mg/dL 2.5-4.9 [id number] 04:47:00* Test Item Value Reference Range Comments MAGNESIUM (test code=MAG) 1.5 mg/dL 1.8-2.4 BASIC METABOLIC [id number] 04:42:00* Test Item Value Reference Range Comments SODIUM (test code=NA) 143 mmol/L 136-145 POTASSIUM (test code=K) 3.6 mmol/L 3.5-5.1 CHLORIDE (test code=CL) 108.0 mmol/L 98-107 CARBON DIOXIDE (test code=CO2) mmol/L 21-32 ANION GAP (test code=GAP) 10-20 GLUCOSE (test code=GLU) mg/dL 74-106 BLOOD UREA NITROGEN (test code=BUN) mg/dL 7-18 GLOMERULAR FILTRATION RATE (test code=GFR) mL/min >=60 CREATININE (test code=CREAT) mg/dL 0.55-1.02 BUN/CREATININE RATIO (test code=BUN/CREA) 10-20 CALCIUM (test code=CA) mg/dL 8.5-10.1 [id number] 04:42:00* Test Item Value Reference Range Comments PHOSPHORUS (test code=PHOS) mg/dL 2.5-4.9 [id number] 04:42:00* Test Item Value Reference Range Comments MAGNESIUM (test code=MAG) mg/dL 1.8-2.4 CBC W/O [id number] 04:26:00* Test Item Value Reference Range Comments WHITE BLOOD CELL (test code=WBC) 4.1 K/mm3 4.5-12.5 RED BLOOD CELL (test code=RBC) 2.78 mill/mm3 3.7-5.2 HEMOGLOBIN (test code=HGB) 8.2 gram/dL 11.5-15.5 HEMATOCRIT (test code=HCT) 25.6 % 36.0-46.0 MEAN CELL VOLUME (test code=MCV) 92.1 fL 80-98 MEAN CELL HGB (test code=MCH) 29.5 picogram 27.0-33.0 MEAN CELL HGB CONCETRATION (test code=MCHC) 32.0 gram/dL 33.0-36.0 RED CELL DISTRIBUTION WIDTH (test code=RDW) 18.3 % 11.6-16.2 PLATELET COUNT (test code=PLT) 63 K/mm3 150-450 MEAN PLATELET VOLUME (test code=MPV) 10.8 fL 6.7-11.0 HGB [id number] 00:01:00* Test Item Value Reference Range Comments HEMOGLOBIN (test code=HGB) 8.7 gram/dL 11.5-15.5 HEMATOCRIT (test code=HCT) 26.8 % 36.0-46.0 [id number] 20:25:00* Test Item Value Reference Range Comments GLUBED (test code=GLUBED) 72 mg/dL 74-106 Performed by certified traffic control operator at [facility] [id number] 16:18:00* Test Item Value Reference Range Comments GLUBED (test code=GLUBED) 83 mg/dL 74-106 Performed by certified traffic control operator at [facility] UR ELECTROPHORESIS CESAR [id number] 14:11:00* Test Item Value Reference Range Comments IMMUNOFIXATION URINE (test code=IMMFIXU) SCREEN () An apparent normal immunofixation pattern. UR TOTAL PROTEIN (test code=PROTEU) 38.1 mg/dL Not Estab. UR [id number] (test code=A1GU) 4.5 % () UR [id number] (test code=A2GU) 12.5 % () UR BETA GLOBULIN (test code=BGU) 26.9 % () UR GAMMA GLOBULIN (test code=GGU) 24.6 % () MONOCLONAL SPIKE (test code=MONOSPIKE) Not Observed % Not Observed UR ALBUMIN QUANT (test code=ALBU) 31.5 % () [id number] 12:21:00* Test Item Value Reference Range Comments GLUBED (test code=GLUBED) 87 mg/dL 74-106 Performed by certified traffic control operator at [facility] [id number] 08:16:00* Test Item Value Reference Range Comments PREALBUMIN (test code=PREALB) 6.0 mg/dL 10-36 Performed At: [facility] [address] [place] [address] [id number] Josiah Woodard MD Ph:[phone] CBC W/AUTO [id number] 06:39:00* Test Item Value Reference Range Comments WHITE BLOOD CELL (test code=WBC) 4.8 K/mm3 4.5-12.5 RED BLOOD CELL (test code=RBC) 2.28 mill/mm3 3.7-5.2 HEMOGLOBIN (test code=HGB) 6.9 gram/dL 11.5-15.5 HEMATOCRIT (test code=HCT) 22.1 % 36.0-46.0 MEAN CELL VOLUME (test code=MCV) 96.9 fL 80-98 MEAN CELL HGB (test code=MCH) 30.3 picogram 27.0-33.0 MEAN CELL HGB CONCETRATION (test code=MCHC) 31.2 gram/dL 33.0-36.0 RED CELL DISTRIBUTION WIDTH (test code=RDW) 18.5 % 11.6-16.2 RED CELL DISTRIBUTION WIDTH SD (test code=RDW-SD) 64.2 fL 37.0-51.0 PLATELET COUNT (test code=PLT) 82 K/mm3 150-450 MEAN PLATELET VOLUME (test code=MPV) 11.5 fL 6.7-11.0 NEUTROPHIL % (test code=NT%) 77.5 % 39.0-69.0 IMMATURE GRANULOCYTE % (test code=IG%) 0.6 % 0.0-5.0 LYMPHOCYTE % (test code=LY%) 11.4 % 25.0-55.0 MONOCYTE % (test code=MO%) 9.3 % 0.0-10.0 EOSINOPHIL % (test code=EO%) 1.2 % 0.0-5.0 BASOPHIL % (test code=BA%) 0.0 % 0.0-1.0 NUCLEATED RBC % (test code=NRBC%) 0.0 % 0-0 NEUTROPHIL # (test code=NT#) 3.73 K/mm3 1.8-7.7 IMMATURE GRANULOCYTE # (test code=IG#) 0.03 x10 3/uL 0-0.03 LYMPHOCYTE # (test code=LY#) 0.55 K/mm3 1.0-5.0 MONOCYTE # (test code=MO#) 0.45 K/mm3 0-0.8 EOSINOPHIL # (test code=EO#) 0.06 K/mm3 0.0-0.5 BASOPHIL # (test code=BA#) 0.00 K/mm3 0.0-0.2 NUCLEATED RBC # (test code=NRBC#) 0.00 K/mm3 0.0-0.1 MANUAL DIFF REQUIRED (test code=MDIFF) NO, ONLY SCAN NEEDED DIFFERENTIAL [id number] 06:39:00* Test Item Value Reference Range Comments STAIN ACCEPTABILITY (test code=STN ACCEPTABLE) STAIN ACCEPTABLE HYPOCHROMIA (test code=HYPO) 1+ ANISOCYTOSIS (test code=ANISO) 1+ PLATELET ESTIMATE (test code=PLTEST) DECREASED PLATELET MORPHOLOGY (test code=PLTMORPH) NORMAL [id number] 06:32:00* Test Item Value Reference Range Comments GLUBED (test code=GLUBED) 87 mg/dL 74-106 Performed by certified traffic control operator at [facility] PROCALCITONIN (PCT)2019-03-15 05:30:00* Test Item Value Reference Range Comments PROCALCITONIN (PCT) (test code=PROCAL) 0.13 ng/ml Concentration Interpretation (ng/mL) <0.51 Sepsis is not likely. Local bacterial infection is possible. (LOW RISK for progression to Sepsis) 0.51 - 2.00 Sepsis is possible, but other conditions are known to elevate PCT as well. (MODERATE RISK for progression to Sepsis) > 2.00 Sepsis is likely, unless other causes are known. (HIGH RISK for progression to Severe Sepsis or Septic Shock) 10.00 High likelihood of Severe Sepsis or Septic or higher Shock. *Increased PCT levels may not always be related to systemic bacterial infection.*Low PCT levels do not automatically exclude the presence of bacterial infection.*All results should be interpreted taking into account the patients history. COMPREHENSIVE METABOLIC [id number] 04:51:00* Test Item Value Reference Range Comments SODIUM (test code=NA) 141 mmol/L 136-145 POTASSIUM (test code=K) 3.3 mmol/L 3.5-5.1 CHLORIDE (test code=CL) 106.0 mmol/L 98-107 CARBON DIOXIDE (test code=CO2) 32.0 mmol/L 21-32 ANION GAP (test code=GAP) 6.3 10-20 GLUCOSE (test code=GLU) 76 mg/dL 74-106 BLOOD UREA NITROGEN (test code=BUN) 8 mg/dL 7-18 GLOMERULAR FILTRATION RATE (test code=GFR) > 60 mL/min >=60 Estimated GFR by using Modified MDRD formula.Chronic kidney disease is defined as either kidney damageor GFR <60 mL/min/1.73 m2 for >3 months. CREATININE (test code=CREAT) 0.30 mg/dL 0.55-1.02 Note change in reference range due to change in reagent. BUN/CREATININE RATIO (test code=BUN/CREA) 26.7 10-20 TOTAL PROTEIN (test code=PROT) 4.0 gram/dL 6.4-8.2 ALBUMIN (test code=ALB) 1.3 g/dL 3.4-5.0 GLOBULIN (test code=GLOB) 2.7 gram/dL 2.7-4.2 ALBUMIN/GLOBULIN RATIO (test code=A/G) 0.5 0.75-1.50 CALCIUM (test code=CA) 7.8 mg/dL 8.5-10.1 BILIRUBIN TOTAL (test code=BILT) 0.90 mg/dL 0.0-1.0 SGOT/AST (test code=AST) 37 IUnit/L 15-37 SGPT/ALT (test code=ALT) 34 IUnit/L 12-78 ALKALINE PHOSPHATASE TOTAL (test code=ALKP) 73 IUnit/L 45-117 Note change in reference range due to change in reagent. [id number] 04:51:00* Test Item Value Reference Range Comments PHOSPHORUS (test code=PHOS) 1.8 mg/dL 2.5-4.9 [id number] 04:51:00* Test Item Value Reference Range Comments MAGNESIUM (test code=MAG) 1.8 mg/dL 1.8-2.4 CBC W/AUTO [id number] 04:44:00* Test Item Value Reference Range Comments WHITE BLOOD CELL (test code=WBC) 4.8 K/mm3 4.5-12.5 RED BLOOD CELL (test code=RBC) 2.28 mill/mm3 3.7-5.2 HEMOGLOBIN (test code=HGB) 6.9 gram/dL 11.5-15.5 HEMATOCRIT (test code=HCT) 22.1 % 36.0-46.0 MEAN CELL VOLUME (test code=MCV) 96.9 fL 80-98 MEAN CELL HGB (test code=MCH) 30.3 picogram 27.0-33.0 MEAN CELL HGB CONCETRATION (test code=MCHC) 31.2 gram/dL 33.0-36.0 RED CELL DISTRIBUTION WIDTH (test code=RDW) 18.5 % 11.6-16.2 RED CELL DISTRIBUTION WIDTH SD (test code=RDW-SD) 64.2 fL 37.0-51.0 PLATELET COUNT (test code=PLT) 82 K/mm3 150-450 MEAN PLATELET VOLUME (test code=MPV) 11.5 fL 6.7-11.0 NEUTROPHIL % (test code=NT%) 77.5 % 39.0-69.0 IMMATURE GRANULOCYTE % (test code=IG%) 0.6 % 0.0-5.0 LYMPHOCYTE % (test code=LY%) 11.4 % 25.0-55.0 MONOCYTE % (test code=MO%) 9.3 % 0.0-10.0 EOSINOPHIL % (test code=EO%) 1.2 % 0.0-5.0 BASOPHIL % (test code=BA%) 0.0 % 0.0-1.0 NUCLEATED RBC % (test code=NRBC%) 0.0 % 0-0 NEUTROPHIL # (test code=NT#) 3.73 K/mm3 1.8-7.7 IMMATURE GRANULOCYTE # (test code=IG#) 0.03 x10 3/uL 0-0.03 LYMPHOCYTE # (test code=LY#) 0.55 K/mm3 1.0-5.0 MONOCYTE # (test code=MO#) 0.45 K/mm3 0-0.8 EOSINOPHIL # (test code=EO#) 0.06 K/mm3 0.0-0.5 BASOPHIL # (test code=BA#) 0.00 K/mm3 0.0-0.2 NUCLEATED RBC # (test code=NRBC#) 0.00 K/mm3 0.0-0.1 MANUAL DIFF REQUIRED (test code=MDIFF) NO, ONLY SCAN NEEDED DIFFERENTIAL [id number] 04:44:00* Test Item Value Reference Range Comments STAIN ACCEPTABILITY (test code=STN ACCEPTABLE) CABOT RINGS (test code=CAB) MORPHOLOGY COMMENT (test code=MOC) PLATELET ESTIMATE (test code=PLTEST) PLATELET MORPHOLOGY (test code=PLTMORPH) CBC W/AUTO [id number] 04:44:00* Test Item Value Reference Range Comments WHITE BLOOD CELL (test code=WBC) 4.8 K/mm3 4.5-12.5 RED BLOOD CELL (test code=RBC) 2.28 mill/mm3 3.7-5.2 HEMOGLOBIN (test code=HGB) 6.9 gram/dL 11.5-15.5 HEMATOCRIT (test code=HCT) 22.1 % 36.0-46.0 MEAN CELL VOLUME (test code=MCV) 96.9 fL 80-98 MEAN CELL HGB (test code=MCH) 30.3 picogram 27.0-33.0 MEAN CELL HGB CONCETRATION (test code=MCHC) 31.2 gram/dL 33.0-36.0 RED CELL DISTRIBUTION WIDTH (test code=RDW) 18.5 % 11.6-16.2 RED CELL DISTRIBUTION WIDTH SD (test code=RDW-SD) 64.2 fL 37.0-51.0 PLATELET COUNT (test code=PLT) 82 K/mm3 150-450 MEAN PLATELET VOLUME (test code=MPV) 11.5 fL 6.7-11.0 NEUTROPHIL % (test code=NT%) 77.5 % 39.0-69.0 IMMATURE GRANULOCYTE % (test code=IG%) 0.6 % 0.0-5.0 LYMPHOCYTE % (test code=LY%) 11.4 % 25.0-55.0 MONOCYTE % (test code=MO%) 9.3 % 0.0-10.0 EOSINOPHIL % (test code=EO%) 1.2 % 0.0-5.0 BASOPHIL % (test code=BA%) 0.0 % 0.0-1.0 NUCLEATED RBC % (test code=NRBC%) 0.0 % 0-0 NEUTROPHIL # (test code=NT#) 3.73 K/mm3 1.8-7.7 IMMATURE GRANULOCYTE # (test code=IG#) 0.03 x10 3/uL 0-0.03 LYMPHOCYTE # (test code=LY#) 0.55 K/mm3 1.0-5.0 MONOCYTE # (test code=MO#) 0.45 K/mm3 0-0.8 EOSINOPHIL # (test code=EO#) 0.06 K/mm3 0.0-0.5 BASOPHIL # (test code=BA#) 0.00 K/mm3 0.0-0.2 NUCLEATED RBC # (test code=NRBC#) 0.00 K/mm3 0.0-0.1 MANUAL DIFF REQUIRED (test code=MDIFF) NO, ONLY SCAN NEEDED DIFFERENTIAL [id number] 04:44:00* Test Item Value Reference Range Comments STAIN ACCEPTABILITY (test code=STN ACCEPTABLE) CABOT RINGS (test code=CAB) MORPHOLOGY COMMENT (test code=MOC) PLATELET ESTIMATE (test code=PLTEST) PLATELET MORPHOLOGY (test code=PLTMORPH) CBC W/AUTO [id number] 04:44:00* Test Item Value Reference Range Comments WHITE BLOOD CELL (test code=WBC) 4.8 K/mm3 4.5-12.5 RED BLOOD CELL (test code=RBC) 2.28 mill/mm3 3.7-5.2 HEMOGLOBIN (test code=HGB) 6.9 gram/dL 11.5-15.5 HEMATOCRIT (test code=HCT) 22.1 % 36.0-46.0 MEAN CELL VOLUME (test code=MCV) 96.9 fL 80-98 MEAN CELL HGB (test code=MCH) 30.3 picogram 27.0-33.0 MEAN CELL HGB CONCETRATION (test code=MCHC) 31.2 gram/dL 33.0-36.0 RED CELL DISTRIBUTION WIDTH (test code=RDW) 18.5 % 11.6-16.2 RED CELL DISTRIBUTION WIDTH SD (test code=RDW-SD) 64.2 fL 37.0-51.0 PLATELET COUNT (test code=PLT) 82 K/mm3 150-450 MEAN PLATELET VOLUME (test code=MPV) 11.5 fL 6.7-11.0 NEUTROPHIL % (test code=NT%) 77.5 % 39.0-69.0 IMMATURE GRANULOCYTE % (test code=IG%) 0.6 % 0.0-5.0 LYMPHOCYTE % (test code=LY%) 11.4 % 25.0-55.0 MONOCYTE % (test code=MO%) 9.3 % 0.0-10.0 EOSINOPHIL % (test code=EO%) 1.2 % 0.0-5.0 BASOPHIL % (test code=BA%) 0.0 % 0.0-1.0 NUCLEATED RBC % (test code=NRBC%) 0.0 % 0-0 NEUTROPHIL # (test code=NT#) 3.73 K/mm3 1.8-7.7 IMMATURE GRANULOCYTE # (test code=IG#) 0.03 x10 3/uL 0-0.03 LYMPHOCYTE # (test code=LY#) 0.55 K/mm3 1.0-5.0 MONOCYTE # (test code=MO#) 0.45 K/mm3 0-0.8 EOSINOPHIL # (test code=EO#) 0.06 K/mm3 0.0-0.5 BASOPHIL # (test code=BA#) 0.00 K/mm3 0.0-0.2 NUCLEATED RBC # (test code=NRBC#) 0.00 K/mm3 0.0-0.1 MANUAL DIFF REQUIRED (test code=MDIFF) NO, ONLY SCAN NEEDED DIFFERENTIAL [id number] 04:44:00* Test Item Value Reference Range Comments STAIN ACCEPTABILITY (test code=STN ACCEPTABLE) MORPHOLOGY COMMENT (test code=MOC) PLATELET ESTIMATE (test code=PLTEST) PLATELET MORPHOLOGY (test code=PLTMORPH) CBC W/AUTO [id number] 04:44:00* Test Item Value Reference Range Comments WHITE BLOOD CELL (test code=WBC) 4.8 K/mm3 4.5-12.5 RED BLOOD CELL (test code=RBC) 2.28 mill/mm3 3.7-5.2 HEMOGLOBIN (test code=HGB) 6.9 gram/dL 11.5-15.5 HEMATOCRIT (test code=HCT) 22.1 % 36.0-46.0 MEAN CELL VOLUME (test code=MCV) 96.9 fL 80-98 MEAN CELL HGB (test code=MCH) 30.3 picogram 27.0-33.0 MEAN CELL HGB CONCETRATION (test code=MCHC) 31.2 gram/dL 33.0-36.0 RED CELL DISTRIBUTION WIDTH (test code=RDW) 18.5 % 11.6-16.2 RED CELL DISTRIBUTION WIDTH SD (test code=RDW-SD) 64.2 fL 37.0-51.0 PLATELET COUNT (test code=PLT) 82 K/mm3 150-450 MEAN PLATELET VOLUME (test code=MPV) 11.5 fL 6.7-11.0 NEUTROPHIL % (test code=NT%) 77.5 % 39.0-69.0 IMMATURE GRANULOCYTE % (test code=IG%) 0.6 % 0.0-5.0 LYMPHOCYTE % (test code=LY%) 11.4 % 25.0-55.0 MONOCYTE % (test code=MO%) 9.3 % 0.0-10.0 EOSINOPHIL % (test code=EO%) 1.2 % 0.0-5.0 BASOPHIL % (test code=BA%) 0.0 % 0.0-1.0 NUCLEATED RBC % (test code=NRBC%) 0.0 % 0-0 NEUTROPHIL # (test code=NT#) 3.73 K/mm3 1.8-7.7 IMMATURE GRANULOCYTE # (test code=IG#) 0.03 x10 3/uL 0-0.03 LYMPHOCYTE # (test code=LY#) 0.55 K/mm3 1.0-5.0 MONOCYTE # (test code=MO#) 0.45 K/mm3 0-0.8 EOSINOPHIL # (test code=EO#) 0.06 K/mm3 0.0-0.5 BASOPHIL # (test code=BA#) 0.00 K/mm3 0.0-0.2 NUCLEATED RBC # (test code=NRBC#) 0.00 K/mm3 0.0-0.1 MANUAL DIFF REQUIRED (test code=MDIFF) NO, ONLY SCAN NEEDED DIFFERENTIAL [id number] 04:44:00* Test Item Value Reference Range Comments STAIN ACCEPTABILITY (test code=STN ACCEPTABLE) CABOT RINGS (test code=CAB) MORPHOLOGY COMMENT (test code=MOC) PLATELET ESTIMATE (test code=PLTEST) PLATELET MORPHOLOGY (test code=PLTMORPH) COMPREHENSIVE METABOLIC [id number] 04:41:00* Test Item Value Reference Range Comments SODIUM (test code=NA) 141 mmol/L 136-145 POTASSIUM (test code=K) 3.3 mmol/L 3.5-5.1 CHLORIDE (test code=CL) 106.0 mmol/L 98-107 CARBON DIOXIDE (test code=CO2) mmol/L 21-32 ANION GAP (test code=GAP) 10-20 GLUCOSE (test code=GLU) mg/dL 74-106 BLOOD UREA NITROGEN (test code=BUN) mg/dL 7-18 GLOMERULAR FILTRATION RATE (test code=GFR) mL/min >=60 CREATININE (test code=CREAT) mg/dL 0.55-1.02 BUN/CREATININE RATIO (test code=BUN/CREA) 10-20 TOTAL PROTEIN (test code=PROT) gram/dL 6.4-8.2 ALBUMIN (test code=ALB) g/dL 3.4-5.0 GLOBULIN (test code=GLOB) gram/dL 2.7-4.2 ALBUMIN/GLOBULIN RATIO (test code=A/G) 0.75-1.50 CALCIUM (test code=CA) mg/dL 8.5-10.1 BILIRUBIN TOTAL (test code=BILT) mg/dL 0.0-1.0 SGOT/AST (test code=AST) IUnit/L 15-37 SGPT/ALT (test code=ALT) IUnit/L 12-78 ALKALINE PHOSPHATASE TOTAL (test code=ALKP) IUnit/L 45-117 [id number] 04:41:00* Test Item Value Reference Range Comments PHOSPHORUS (test code=PHOS) mg/dL 2.5-4.9 [id number] 04:41:00* Test Item Value Reference Range Comments MAGNESIUM (test code=MAG) mg/dL 1.8-2.4 [id number] 20:40:00* Test Item Value Reference Range Comments GLUBED (test code=GLUBED) 84 mg/dL 74-106 Performed by certified traffic control operator at [facility] CBC W/AUTO [id number] 12:46:00* Test Item Value Reference Range Comments WHITE BLOOD CELL (test code=WBC) 5.3 K/mm3 4.5-12.5 RED BLOOD CELL (test code=RBC) 2.49 mill/mm3 3.7-5.2 HEMOGLOBIN (test code=HGB) 7.7 gram/dL 11.5-15.5 HEMATOCRIT (test code=HCT) 24.3 % 36.0-46.0 MEAN CELL VOLUME (test code=MCV) 97.6 fL 80-98 MEAN CELL HGB (test code=MCH) 30.9 picogram 27.0-33.0 MEAN CELL HGB CONCETRATION (test code=MCHC) 31.7 gram/dL 33.0-36.0 RED CELL DISTRIBUTION WIDTH (test code=RDW) 18.6 % 11.6-16.2 RED CELL DISTRIBUTION WIDTH SD (test code=RDW-SD) 66.0 fL 37.0-51.0 PLATELET COUNT (test code=PLT) 78 K/mm3 150-450 MEAN PLATELET VOLUME (test code=MPV) 11.1 fL 6.7-11.0 NEUTROPHIL % (test code=NT%) 82.6 % 39.0-69.0 IMMATURE GRANULOCYTE % (test code=IG%) 0.4 % 0.0-5.0 LYMPHOCYTE % (test code=LY%) 7.0 % 25.0-55.0 MONOCYTE % (test code=MO%) 9.2 % 0.0-10.0 EOSINOPHIL % (test code=EO%) 0.8 % 0.0-5.0 BASOPHIL % (test code=BA%) 0.0 % 0.0-1.0 NUCLEATED RBC % (test code=NRBC%) 0.0 % 0-0 NEUTROPHIL # (test code=NT#) 4.40 K/mm3 1.8-7.7 IMMATURE GRANULOCYTE # (test code=IG#) 0.02 x10 3/uL 0-0.03 LYMPHOCYTE # (test code=LY#) 0.37 K/mm3 1.0-5.0 MONOCYTE # (test code=MO#) 0.49 K/mm3 0-0.8 EOSINOPHIL # (test code=EO#) 0.04 K/mm3 0.0-0.5 BASOPHIL # (test code=BA#) 0.00 K/mm3 0.0-0.2 NUCLEATED RBC # (test code=NRBC#) 0.00 K/mm3 0.0-0.1 MANUAL DIFF REQUIRED (test code=MDIFF) NO, ONLY SCAN NEEDED PT HARD STICK @[email or web address] 03/14/19 0943PT HARD STICK PER [facility] 02/15 0836DIFFERENTIAL [id number] 12:46:00* Test Item Value Reference Range Comments STAIN ACCEPTABILITY (test code=STN ACCEPTABLE) STAIN ACCEPTABLE PLATELET ESTIMATE (test code=PLTEST) DECREASED PLATELET MORPHOLOGY (test code=PLTMORPH) NORMAL PT HARD STICK @[employer] 03/14/19 0943PT HARD STICK [facility] @[facility] 02/15 0836CBC W/AUTO [id number] 12:09:00* Test Item Value Reference Range Comments WHITE BLOOD CELL (test code=WBC) 5.3 K/mm3 4.5-12.5 RED BLOOD CELL (test code=RBC) 2.49 mill/mm3 3.7-5.2 HEMOGLOBIN (test code=HGB) 7.7 gram/dL 11.5-15.5 HEMATOCRIT (test code=HCT) 24.3 % 36.0-46.0 MEAN CELL VOLUME (test code=MCV) 97.6 fL 80-98 MEAN CELL HGB (test code=MCH) 30.9 picogram 27.0-33.0 MEAN CELL HGB CONCETRATION (test code=MCHC) 31.7 gram/dL 33.0-36.0 RED CELL DISTRIBUTION WIDTH (test code=RDW) 18.6 % 11.6-16.2 RED CELL DISTRIBUTION WIDTH SD (test code=RDW-SD) 66.0 fL 37.0-51.0 PLATELET COUNT (test code=PLT) 78 K/mm3 150-450 MEAN PLATELET VOLUME (test code=MPV) 11.1 fL 6.7-11.0 NEUTROPHIL % (test code=NT%) 82.6 % 39.0-69.0 IMMATURE GRANULOCYTE % (test code=IG%) 0.4 % 0.0-5.0 LYMPHOCYTE % (test code=LY%) 7.0 % 25.0-55.0 MONOCYTE % (test code=MO%) 9.2 % 0.0-10.0 EOSINOPHIL % (test code=EO%) 0.8 % 0.0-5.0 BASOPHIL % (test code=BA%) 0.0 % 0.0-1.0 NUCLEATED RBC % (test code=NRBC%) 0.0 % 0-0 NEUTROPHIL # (test code=NT#) 4.40 K/mm3 1.8-7.7 IMMATURE GRANULOCYTE # (test code=IG#) 0.02 x10 3/uL 0-0.03 LYMPHOCYTE # (test code=LY#) 0.37 K/mm3 1.0-5.0 MONOCYTE # (test code=MO#) 0.49 K/mm3 0-0.8 EOSINOPHIL # (test code=EO#) 0.04 K/mm3 0.0-0.5 BASOPHIL # (test code=BA#) 0.00 K/mm3 0.0-0.2 NUCLEATED RBC # (test code=NRBC#) 0.00 K/mm3 0.0-0.1 MANUAL DIFF REQUIRED (test code=MDIFF) NO, ONLY SCAN NEEDED PT HARD STICK @[employer].SP3 03/14/19 0943PT HARD STICK PER VERO B @[employer].3 02/15 0836DIFFERENTIAL [id number] 12:09:00* Test Item Value Reference Range Comments STAIN ACCEPTABILITY (test code=STN ACCEPTABLE) CABOT RINGS (test code=CAB) MORPHOLOGY COMMENT (test code=MOC) PLATELET ESTIMATE (test code=PLTEST) PLATELET MORPHOLOGY (test code=PLTMORPH) PT HARD STICK @[employer]LAB.SP3 03/14/19 0943PT HARD STICK PER VERO Pollard @[employer].3 02/15 0836CBC W/AUTO [id number] 12:09:00* Test Item Value Reference Range Comments WHITE BLOOD CELL (test code=WBC) 5.3 K/mm3 4.5-12.5 RED BLOOD CELL (test code=RBC) 2.49 mill/mm3 3.7-5.2 HEMOGLOBIN (test code=HGB) 7.7 gram/dL 11.5-15.5 HEMATOCRIT (test code=HCT) 24.3 % 36.0-46.0 MEAN CELL VOLUME (test code=MCV) 97.6 fL 80-98 MEAN CELL HGB (test code=MCH) 30.9 picogram 27.0-33.0 MEAN CELL HGB CONCETRATION (test code=MCHC) 31.7 gram/dL 33.0-36.0 RED CELL DISTRIBUTION WIDTH (test code=RDW) 18.6 % 11.6-16.2 RED CELL DISTRIBUTION WIDTH SD (test code=RDW-SD) 66.0 fL 37.0-51.0 PLATELET COUNT (test code=PLT) 78 K/mm3 150-450 MEAN PLATELET VOLUME (test code=MPV) 11.1 fL 6.7-11.0 NEUTROPHIL % (test code=NT%) 82.6 % 39.0-69.0 IMMATURE GRANULOCYTE % (test code=IG%) 0.4 % 0.0-5.0 LYMPHOCYTE % (test code=LY%) 7.0 % 25.0-55.0 MONOCYTE % (test code=MO%) 9.2 % 0.0-10.0 EOSINOPHIL % (test code=EO%) 0.8 % 0.0-5.0 BASOPHIL % (test code=BA%) 0.0 % 0.0-1.0 NUCLEATED RBC % (test code=NRBC%) 0.0 % 0-0 NEUTROPHIL # (test code=NT#) 4.40 K/mm3 1.8-7.7 IMMATURE GRANULOCYTE # (test code=IG#) 0.02 x10 3/uL 0-0.03 LYMPHOCYTE # (test code=LY#) 0.37 K/mm3 1.0-5.0 MONOCYTE # (test code=MO#) 0.49 K/mm3 0-0.8 EOSINOPHIL # (test code=EO#) 0.04 K/mm3 0.0-0.5 BASOPHIL # (test code=BA#) 0.00 K/mm3 0.0-0.2 NUCLEATED RBC # (test code=NRBC#) 0.00 K/mm3 0.0-0.1 MANUAL DIFF REQUIRED (test code=MDIFF) NO, ONLY SCAN NEEDED PT HARD STICK @[facility]SP[facility] 03/14/19 0943PT HARD STICK PER VERO Pollard @[facility] [facility].SP[facility] 02/15 0836DIFFERENTIAL [id number] 12:09:00* Test Item Value Reference Range Comments STAIN ACCEPTABILITY (test code=STN ACCEPTABLE) CABOT RINGS (test code=CAB) MORPHOLOGY COMMENT (test code=MOC) PLATELET ESTIMATE (test code=PLTEST) PLATELET MORPHOLOGY (test code=PLTMORPH) PT HARD STICK @[employer]LAB.3 03/14/19 0943PT HARD STICK PER VERO B @[employer].LAB.3 02/15 0836CBC W/AUTO [id number] 12:09:00* Test Item Value Reference Range Comments WHITE BLOOD CELL (test code=WBC) 5.3 K/mm3 4.5-12.5 RED BLOOD CELL (test code=RBC) 2.49 mill/mm3 3.7-5.2 HEMOGLOBIN (test code=HGB) 7.7 gram/dL 11.5-15.5 HEMATOCRIT (test code=HCT) 24.3 % 36.0-46.0 MEAN CELL VOLUME (test code=MCV) 97.6 fL 80-98 MEAN CELL HGB (test code=MCH) 30.9 picogram 27.0-33.0 MEAN CELL HGB CONCETRATION (test code=MCHC) 31.7 gram/dL 33.0-36.0 RED CELL DISTRIBUTION WIDTH (test code=RDW) 18.6 % 11.6-16.2 RED CELL DISTRIBUTION WIDTH SD (test code=RDW-SD) 66.0 fL 37.0-51.0 PLATELET COUNT (test code=PLT) 78 K/mm3 150-450 MEAN PLATELET VOLUME (test code=MPV) 11.1 fL 6.7-11.0 NEUTROPHIL % (test code=NT%) 82.6 % 39.0-69.0 IMMATURE GRANULOCYTE % (test code=IG%) 0.4 % 0.0-5.0 LYMPHOCYTE % (test code=LY%) 7.0 % 25.0-55.0 MONOCYTE % (test code=MO%) 9.2 % 0.0-10.0 EOSINOPHIL % (test code=EO%) 0.8 % 0.0-5.0 BASOPHIL % (test code=BA%) 0.0 % 0.0-1.0 NUCLEATED RBC % (test code=NRBC%) 0.0 % 0-0 NEUTROPHIL # (test code=NT#) 4.40 K/mm3 1.8-7.7 IMMATURE GRANULOCYTE # (test code=IG#) 0.02 x10 3/uL 0-0.03 LYMPHOCYTE # (test code=LY#) 0.37 K/mm3 1.0-5.0 MONOCYTE # (test code=MO#) 0.49 K/mm3 0-0.8 EOSINOPHIL # (test code=EO#) 0.04 K/mm3 0.0-0.5 BASOPHIL # (test code=BA#) 0.00 K/mm3 0.0-0.2 NUCLEATED RBC # (test code=NRBC#) 0.00 K/mm3 0.0-0.1 MANUAL DIFF REQUIRED (test code=MDIFF) NO, ONLY SCAN NEEDED PT HARD STICK @[employer].[facility] 03/14/19 0943PT HARD STICK PER VERO B @[employer].[facility] 02/15 0836DIFFERENTIAL [id number] 12:09:00* Test Item Value Reference Range Comments STAIN ACCEPTABILITY (test code=STN ACCEPTABLE) MORPHOLOGY COMMENT (test code=MOC) PLATELET ESTIMATE (test code=PLTEST) PLATELET MORPHOLOGY (test code=PLTMORPH) PT HARD STICK @[facility] 03/14/19 0943PT HARD STICK PER VERO B @[employer].[facility] 02/15 0836CBC W/AUTO [id number] 12:09:00* Test Item Value Reference Range Comments WHITE BLOOD CELL (test code=WBC) 5.3 K/mm3 4.5-12.5 RED BLOOD CELL (test code=RBC) 2.49 mill/mm3 3.7-5.2 HEMOGLOBIN (test code=HGB) 7.7 gram/dL 11.5-15.5 HEMATOCRIT (test code=HCT) 24.3 % 36.0-46.0 MEAN CELL VOLUME (test code=MCV) 97.6 fL 80-98 MEAN CELL HGB (test code=MCH) 30.9 picogram 27.0-33.0 MEAN CELL HGB CONCETRATION (test code=MCHC) 31.7 gram/dL 33.0-36.0 RED CELL DISTRIBUTION WIDTH (test code=RDW) 18.6 % 11.6-16.2 RED CELL DISTRIBUTION WIDTH SD (test code=RDW-SD) 66.0 fL 37.0-51.0 PLATELET COUNT (test code=PLT) 78 K/mm3 150-450 MEAN PLATELET VOLUME (test code=MPV) 11.1 fL 6.7-11.0 NEUTROPHIL % (test code=NT%) 82.6 % 39.0-69.0 IMMATURE GRANULOCYTE % (test code=IG%) 0.4 % 0.0-5.0 LYMPHOCYTE % (test code=LY%) 7.0 % 25.0-55.0 MONOCYTE % (test code=MO%) 9.2 % 0.0-10.0 EOSINOPHIL % (test code=EO%) 0.8 % 0.0-5.0 BASOPHIL % (test code=BA%) 0.0 % 0.0-1.0 NUCLEATED RBC % (test code=NRBC%) 0.0 % 0-0 NEUTROPHIL # (test code=NT#) 4.40 K/mm3 1.8-7.7 IMMATURE GRANULOCYTE # (test code=IG#) 0.02 x10 3/uL 0-0.03 LYMPHOCYTE # (test code=LY#) 0.37 K/mm3 1.0-5.0 MONOCYTE # (test code=MO#) 0.49 K/mm3 0-0.8 EOSINOPHIL # (test code=EO#) 0.04 K/mm3 0.0-0.5 BASOPHIL # (test code=BA#) 0.00 K/mm3 0.0-0.2 NUCLEATED RBC # (test code=NRBC#) 0.00 K/mm3 0.0-0.1 MANUAL DIFF REQUIRED (test code=MDIFF) NO, ONLY SCAN NEEDED PT HARD STICK @[facility]SP[facility] 03/14/19 0943PT HARD STICK PER VERO Pollard @[employer] [facility].SP[facility] 02/15 0836DIFFERENTIAL [id number] 12:09:00* Test Item Value Reference Range Comments STAIN ACCEPTABILITY (test code=STN ACCEPTABLE) CABOT RINGS (test code=CAB) MORPHOLOGY COMMENT (test code=MOC) PLATELET ESTIMATE (test code=PLTEST) PLATELET MORPHOLOGY (test code=PLTMORPH) PT HARD STICK @[employer]LAB.SP3 03/14/19 0943PT HARD STICK PER VERO Pollard @[facility].LAB.SP3 02/15 0836BASIC METABOLIC [id number] 05:31:00* Test Item Value Reference Range Comments SODIUM (test code=NA) 141 mmol/L 136-145 POTASSIUM (test code=K) 3.1 mmol/L 3.5-5.1 CHLORIDE (test code=CL) 105.0 mmol/L 98-107 CARBON DIOXIDE (test code=CO2) 28.0 mmol/L 21-32 ANION GAP (test code=GAP) 11.1 10-20 GLUCOSE (test code=GLU) 88 mg/dL 74-106 BLOOD UREA NITROGEN (test code=BUN) 9 mg/dL 7-18 GLOMERULAR FILTRATION RATE (test code=GFR) > 60 mL/min >=60 Estimated GFR by using Modified MDRD formula.Chronic kidney disease is defined as either kidney damageor GFR <60 mL/min/1.73 m2 for >3 months. CREATININE (test code=CREAT) 0.30 mg/dL 0.55-1.02 Note change in reference range due to change in reagent. BUN/CREATININE RATIO (test code=BUN/CREA) 30.0 10-20 CALCIUM (test code=CA) 7.5 mg/dL 8.5-10.1 [id number] 05:31:00* Test Item Value Reference Range Comments PHOSPHORUS (test code=PHOS) 2.7 mg/dL 2.5-4.9 [id number] 05:31:00* Test Item Value Reference Range Comments MAGNESIUM (test code=MAG) 1.7 mg/dL 1.8-2.4 CALCIUM [id number] 05:31:00* Test Item Value Reference Range Comments CALCIUM IONIZED (test code=CONNIE) 1.11 mmol/L 1.12-1.32 BASIC METABOLIC [id number] 05:30:00* Test Item Value Reference Range Comments SODIUM (test code=NA) 141 mmol/L 136-145 POTASSIUM (test code=K) 3.1 mmol/L 3.5-5.1 CHLORIDE (test code=CL) 105.0 mmol/L 98-107 CARBON DIOXIDE (test code=CO2) 28.0 mmol/L 21-32 ANION GAP (test code=GAP) 11.1 10-20 GLUCOSE (test code=GLU) 88 mg/dL 74-106 BLOOD UREA NITROGEN (test code=BUN) 9 mg/dL 7-18 GLOMERULAR FILTRATION RATE (test code=GFR) > 60 mL/min >=60 Estimated GFR by using Modified MDRD formula.Chronic kidney disease is defined as either kidney damageor GFR <60 mL/min/1.73 m2 for >3 months. CREATININE (test code=CREAT) 0.30 mg/dL 0.55-1.02 Note change in reference range due to change in reagent. BUN/CREATININE RATIO (test code=BUN/CREA) 30.0 10-20 CALCIUM (test code=CA) 7.5 mg/dL 8.5-10.1 [id number] 05:30:00* Test Item Value Reference Range Comments PHOSPHORUS (test code=PHOS) 2.7 mg/dL 2.5-4.9 [id number] 05:30:00* Test Item Value Reference Range Comments MAGNESIUM (test code=MAG) 1.7 mg/dL 1.8-2.4 CALCIUM [id number] 05:30:00* Test Item Value Reference Range Comments CALCIUM IONIZED (test code=CONNIE) mmol/L 1.12-1.32 [id number] 21:00:00* Test Item Value Reference Range Comments GLUBED (test code=GLUBED) 75 mg/dL 74-106 Performed by certified traffic control operator at [facility] [id number] 17:31:00* Test Item Value Reference Range Comments GLUBED (test code=GLUBED) 83 mg/dL 74-106 Performed by certified traffic control operator at [facility] PROTEIN ELECTROPHORESIS [id number] 17:08:00* Test Item Value Reference Range Comments TOTAL PROTEIN (test code=PROTE) 3.9 g/dL 6.0-8.5 ALBUMIN (test code=ALBE) 1.6 g/dL 2.9-4.4 [id number] (test code=A1G) 0.2 g/dL 0.0-0.4 [id number]-[id number] (test code=A2G) 0.3 g/dL 0.4-1.0 BETA GLOBULIN (test code=BG) 0.6 g/dL 0.7-1.3 GAMMA GLOBULIN (test code=GG) 1.2 g/dL 0.4-1.8 M-SPIKE,SERUM (test code=MSPIKES) Not Observed g/dL Not Observed GLOBULIN ELECT (test code=GLOBE) 2.3 g/dL 2.2-3.9 INTERPRETATION (test code=ELEINT) () The SPE pattern reflects non-selective protein loss.Protein losing syndromes, in which this pattern has beenobserved include: malnutrition, exudative dermatopathies,jane, exudative pulmonary disease, essentialhypoproteinemia, protein losing gastroentero-pathies, bloodloss, and plasmaphoresis. Monoclonal protein is notapparent.Performed At: [facility] [address] [id number] Kyle L MD Ph:[phone] At: [facility] [address] [place] [address] [address] [place], [place] [id number] CN MD Ph:[phone] CBC W/AUTO [id number] 16:05:00* Test Item Value Reference Range Comments WHITE BLOOD CELL (test code=WBC) 6.0 K/mm3 4.5-12.5 RED BLOOD CELL (test code=RBC) 2.88 mill/mm3 3.7-5.2 HEMOGLOBIN (test code=HGB) 9.0 gram/dL 11.5-15.5 HEMATOCRIT (test code=HCT) 28.3 % 36.0-46.0 MEAN CELL VOLUME (test code=MCV) 98.3 fL 80-98 MEAN CELL HGB (test code=MCH) 31.3 picogram 27.0-33.0 MEAN CELL HGB CONCETRATION (test code=MCHC) 31.8 gram/dL 33.0-36.0 RED CELL DISTRIBUTION WIDTH (test code=RDW) 19.3 % 11.6-16.2 RED CELL DISTRIBUTION WIDTH SD (test code=RDW-SD) 69.0 fL 37.0-51.0 PLATELET COUNT (test code=PLT) 94 K/mm3 150-450 MEAN PLATELET VOLUME (test code=MPV) 11.2 fL 6.7-11.0 NEUTROPHIL % (test code=NT%) 86.3 % 39.0-69.0 IMMATURE GRANULOCYTE % (test code=IG%) 0.3 % 0.0-5.0 LYMPHOCYTE % (test code=LY%) 7.6 % 25.0-55.0 MONOCYTE % (test code=MO%) 5.1 % 0.0-10.0 EOSINOPHIL % (test code=EO%) 0.5 % 0.0-5.0 BASOPHIL % (test code=BA%) 0.2 % 0.0-1.0 NUCLEATED RBC % (test code=NRBC%) 0.3 % 0-0 NEUTROPHIL # (test code=NT#) 5.20 K/mm3 1.8-7.7 IMMATURE GRANULOCYTE # (test code=IG#) 0.02 x10 3/uL 0-0.03 LYMPHOCYTE # (test code=LY#) 0.46 K/mm3 1.0-5.0 MONOCYTE # (test code=MO#) 0.31 K/mm3 0-0.8 EOSINOPHIL # (test code=EO#) 0.03 K/mm3 0.0-0.5 BASOPHIL # (test code=BA#) 0.01 K/mm3 0.0-0.2 NUCLEATED RBC # (test code=NRBC#) 0.02 K/mm3 0.0-0.1 PT HARD STICK NOTIFIED BRUNILDA QUEZADA @[employer]LAB.SP3 03/13/[id number] 12:07:00* Test Item Value Reference Range Comments GLUBED (test code=GLUBED) 106 mg/dL 74-106 Performed by certified traffic control operator at [facility] ANTINUCLEAR ANTIBODIES [id number] 11:14:00* Test Item Value Reference Range Comments GISELLE SCREEN (test code=ANASCR) Negative Negative Performed At: [facility] [address] [id number] Josiah Woodard MD Ph:[phone] ACUTE HEPATITIS [id number] 11:14:00* Test Item Value Reference Range Comments AB HEPATITIS A IGM (test code=HAVMAB) Negative Negative AG HEPAT B SURF (test code=HBSAG) Negative Negative HEPATITIS B CORE ANTIBODY,IGM (test code=HBCMAB) Negative Negative AB HEPATITIS C (test code=HCVAB) <0.1 0.0-0.9 INFCE Result Units: s/co ratio Negative: < 0.8 Indeterminate: 0.8 - 0.9 Positive: > 0.9 The CDC recommends that a positive HCV antibody result be followed up with a HCV Nucleic Acid Amplification test (375300).Performed At: [facility] [address] [place], [place] [id number] Josiah Woodard MD Ph:[phone] BASIC METABOLIC [id number] 11:10:00* Test Item Value Reference Range Comments SODIUM (test code=NA) 139 mmol/L 136-145 POTASSIUM (test code=K) 3.8 mmol/L 3.5-5.1 CHLORIDE (test code=CL) 104.0 mmol/L 98-107 CARBON DIOXIDE (test code=CO2) 28.0 mmol/L 21-32 ANION GAP (test code=GAP) 10.8 10-20 GLUCOSE (test code=GLU) 95 mg/dL 74-106 BLOOD UREA NITROGEN (test code=BUN) 9 mg/dL 7-18 GLOMERULAR FILTRATION RATE (test code=GFR) > 60 mL/min >=60 Estimated GFR by using Modified MDRD formula.Chronic kidney disease is defined as either kidney damageor GFR <60 mL/min/1.73 m2 for >3 months. CREATININE (test code=CREAT) 0.40 mg/dL 0.55-1.02 Note change in reference range due to change in reagent. BUN/CREATININE RATIO (test code=BUN/CREA) 22.5 10-20 CALCIUM (test code=CA) 7.0 mg/dL 8.5-10.1 PT HARD STICK NOTIFIED BRUNILDA QUEZADA @[employer].3 [id number] 11:10:00* Test Item Value Reference Range Comments PHOSPHORUS (test code=PHOS) 1.7 mg/dL 2.5-4.9 PT HARD STICK NOTIFIED BRUNILDA QUEZADA @[employer] [facility]SP3 03/13/[id number] 11:10:00* Test Item Value Reference Range Comments MAGNESIUM (test code=MAG) 1.5 mg/dL 1.8-2.4 PT HARD STICK NOTIFIED BRUNILDA QUEZADA @[employer] [facility].SP3 [id number] IONIZED 2019-03-13 11:10:00* Test Item Value Reference Range Comments CALCIUM IONIZED (test code=CONNIE) 0.99 mmol/L 1.12-1.32 PT HARD STICK NOTIFIED BRUNILDA QUEZADA [facility] [facility] [id number] METABOLIC PANEL 2019-03-13 11:03:00* Test Item Value Reference Range Comments SODIUM (test code=NA) 139 mmol/L 136-145 POTASSIUM (test code=K) 3.8 mmol/L 3.5-5.1 CHLORIDE (test code=CL) 104.0 mmol/L 98-107 CARBON DIOXIDE (test code=CO2) mmol/L 21-32 ANION GAP (test code=GAP) 10-20 GLUCOSE (test code=GLU) mg/dL 74-106 BLOOD UREA NITROGEN (test code=BUN) mg/dL 7-18 GLOMERULAR FILTRATION RATE (test code=GFR) mL/min >=60 CREATININE (test code=CREAT) mg/dL 0.55-1.02 BUN/CREATININE RATIO (test code=BUN/CREA) 10-20 CALCIUM (test code=CA) mg/dL 8.5-10.1 PT HARD STICK NOTIFIED BRUNILDA QUEZADA @[facility] [facility] [id number] 11:03:00* Test Item Value Reference Range Comments PHOSPHORUS (test code=PHOS) mg/dL 2.5-4.9 PT HARD STICK NOTIFIED BRUNILDA QUEZADA @[employer].[facility] [id number] 11:03:00* Test Item Value Reference Range Comments MAGNESIUM (test code=MAG) mg/dL 1.8-2.4 PT HARD STICK NOTIFIED BRUNILDA QUEZADA @[facility] 03/13/[id number] IONIZED 2019-03-13 11:03:00* Test Item Value Reference Range Comments CALCIUM IONIZED (test code=CONNIE) 0.99 mmol/L 1.12-1.32 PT HARD STICK NOTIFIED BRUNILDA QUEZADA @[facility] [id number] METABOLIC PANEL 2019-03-13 11:02:00* Test Item Value Reference Range Comments SODIUM (test code=NA) mmol/L 136-145 POTASSIUM (test code=K) mmol/L 3.5-5.1 CHLORIDE (test code=CL) mmol/L 98-107 CARBON DIOXIDE (test code=CO2) mmol/L 21-32 ANION GAP (test code=GAP) 10-20 GLUCOSE (test code=GLU) mg/dL 74-106 BLOOD UREA NITROGEN (test code=BUN) mg/dL 7-18 GLOMERULAR FILTRATION RATE (test code=GFR) mL/min >=60 CREATININE (test code=CREAT) mg/dL 0.55-1.02 BUN/CREATININE RATIO (test code=BUN/CREA) 10-20 CALCIUM (test code=CA) mg/dL 8.5-10.1 PT HARD STICK NOTIFIED BRUNILDA QUEZADA @[employer].SP3 03/13/[id number] 11:02:00* Test Item Value Reference Range Comments PHOSPHORUS (test code=PHOS) mg/dL 2.5-4.9 PT HARD STICK NOTIFIED BRUNILDA QUEZADA @[employer].SP3 03/13/[id number] 11:02:00* Test Item Value Reference Range Comments MAGNESIUM (test code=MAG) mg/dL 1.8-2.4 PT HARD STICK NOTIFIED BRUNILDA QUEZADA @[employer].SP3 03/13/[id number] IONIZED 2019-03-13 11:02:00* Test Item Value Reference Range Comments CALCIUM IONIZED (test code=CONNIE) 0.99 mmol/L 1.12-1.32 PT HARD STICK NOTIFIED BRUNILDA QUEZADA @[employer].SP3 03/13/[id number] 07:23:00* Test Item Value Reference Range Comments GLUBED (test code=GLUBED) 88 mg/dL 74-106 Performed by certified traffic control operator at [facility] ANTINUCLEAR ANTIBODIES [id number] 07:18:00* Test Item Value Reference Range Comments GISELLE SCREEN (test code=ANASCR) ACUTE HEPATITIS [id number] 07:18:00* Test Item Value Reference Range Comments AB HEPATITIS A IGM (test code=HAVMAB) Negative Negative AG HEPAT B SURF (test code=HBSAG) Negative Negative HEPATITIS B CORE ANTIBODY,IGM (test code=HBCMAB) Negative Negative AB HEPATITIS C (test code=HCVAB) <0.1 0.0-0.9 INFCE Result Units: s/co ratio Negative: < 0.8 Indeterminate: 0.8 - 0.9 Positive: > 0.9 The CDC recommends that a positive HCV antibody result be followed up with a HCV Nucleic Acid Amplification test ([id number]).Performed At: [address] [id number] Josiah Woodard MD Ph:[phone] [id number] 01:39:00* Test Item Value Reference Range Comments GLUBED (test code=GLUBED) 78 mg/dL 74-106 Performed by certified traffic control operator at [facility] [id number] 20:52:00* Test Item Value Reference Range Comments GLUBED (test code=GLUBED) 69 mg/dL 74-106 Performed by certified traffic control operator at [facility] [id number] 17:11:00* Test Item Value Reference Range Comments GLUBED (test code=GLUBED) 89 mg/dL 74-106 Performed by certified traffic control operator at [facility] PROCALCITONIN (PCT)2019-03-12 16:39:00* Test Item Value Reference Range Comments PROCALCITONIN (PCT) (test code=PROCAL) 0.37 ng/ml Concentration Interpretation (ng/mL) <0.51 Sepsis is not likely. Local bacterial infection is possible. (LOW RISK for progression to Sepsis) 0.51 - 2.00 Sepsis is possible, but other conditions are known to elevate PCT as well. (MODERATE RISK for progression to Sepsis) > 2.00 Sepsis is likely, unless other causes are known. (HIGH RISK for progression to Severe Sepsis or Septic Shock) 10.00 High likelihood of Severe Sepsis or Septic or higher Shock. *Increased PCT levels may not always be related to systemic bacterial infection.*Low PCT levels do not automatically exclude the presence of bacterial infection.*All results should be interpreted taking into account the patients history. [id number] 13:00:00* Test Item Value Reference Range Comments GLUBED (test code=GLUBED) 83 mg/dL 74-106 Performed by certified traffic control operator at [facility] BASIC METABOLIC [id number] 07:49:00* Test Item Value Reference Range Comments SODIUM (test code=NA) 142 mmol/L 136-145 POTASSIUM (test code=K) 3.0 mmol/L 3.5-5.1 CHLORIDE (test code=CL) 103.0 mmol/L 98-107 CARBON DIOXIDE (test code=CO2) 37.0 mmol/L 21-32 ANION GAP (test code=GAP) 5.0 10-20 GLUCOSE (test code=GLU) 82 mg/dL 74-106 BLOOD UREA NITROGEN (test code=BUN) 11 mg/dL 7-18 GLOMERULAR FILTRATION RATE (test code=GFR) > 60 mL/min >=60 Estimated GFR by using Modified MDRD formula.Chronic kidney disease is defined as either kidney damageor GFR <60 mL/min/1.73 m2 for >3 months. CREATININE (test code=CREAT) 0.40 mg/dL 0.55-1.02 Note change in reference range due to change in reagent. BUN/CREATININE RATIO (test code=BUN/CREA) 27.5 10-20 CALCIUM (test code=CA) 7.0 mg/dL 8.5-10.1 [id number] 07:49:00* Test Item Value Reference Range Comments PHOSPHORUS (test code=PHOS) 1.7 mg/dL 2.5-4.9 [id number] 07:49:00* Test Item Value Reference Range Comments MAGNESIUM (test code=MAG) 1.5 mg/dL 1.8-2.4 CALCIUM [id number] 07:49:00* Test Item Value Reference Range Comments CALCIUM IONIZED (test code=CONNIE) 1.05 mmol/L 1.12-1.32 BASIC METABOLIC [id number] 07:46:00* Test Item Value Reference Range Comments SODIUM (test code=NA) 142 mmol/L 136-145 POTASSIUM (test code=K) 3.0 mmol/L 3.5-5.1 CHLORIDE (test code=CL) 103.0 mmol/L 98-107 CARBON DIOXIDE (test code=CO2) mmol/L 21-32 ANION GAP (test code=GAP) 10-20 GLUCOSE (test code=GLU) mg/dL 74-106 BLOOD UREA NITROGEN (test code=BUN) mg/dL 7-18 GLOMERULAR FILTRATION RATE (test code=GFR) mL/min >=60 CREATININE (test code=CREAT) mg/dL 0.55-1.02 BUN/CREATININE RATIO (test code=BUN/CREA) 10-20 CALCIUM (test code=CA) mg/dL 8.5-10.1 [id number] 07:46:00* Test Item Value Reference Range Comments PHOSPHORUS (test code=PHOS) mg/dL 2.5-4.9 [id number] 07:46:00* Test Item Value Reference Range Comments MAGNESIUM (test code=MAG) mg/dL 1.8-2.4 CALCIUM [id number] 07:46:00* Test Item Value Reference Range Comments CALCIUM IONIZED (test code=CONNIE) 1.05 mmol/L 1.12-1.32 BASIC METABOLIC [id number] 07:40:00* Test Item Value Reference Range Comments SODIUM (test code=NA) mmol/L 136-145 POTASSIUM (test code=K) mmol/L 3.5-5.1 CHLORIDE (test code=CL) mmol/L 98-107 CARBON DIOXIDE (test code=CO2) mmol/L 21-32 ANION GAP (test code=GAP) 10-20 GLUCOSE (test code=GLU) mg/dL 74-106 BLOOD UREA NITROGEN (test code=BUN) mg/dL 7-18 GLOMERULAR FILTRATION RATE (test code=GFR) mL/min >=60 CREATININE (test code=CREAT) mg/dL 0.55-1.02 BUN/CREATININE RATIO (test code=BUN/CREA) 10-20 CALCIUM (test code=CA) mg/dL 8.5-10.1 [id number] 07:40:00* Test Item Value Reference Range Comments PHOSPHORUS (test code=PHOS) mg/dL 2.5-4.9 [id number] 07:40:00* Test Item Value Reference Range Comments MAGNESIUM (test code=MAG) mg/dL 1.8-2.4 CALCIUM [id number] 07:40:00* Test Item Value Reference Range Comments CALCIUM IONIZED (test code=CONNIE) 1.05 mmol/L 1.12-1.32 CBC W/AUTO [id number] 07:18:00* Test Item Value Reference Range Comments WHITE BLOOD CELL (test code=WBC) 5.9 K/mm3 4.5-12.5 RED BLOOD CELL (test code=RBC) 2.54 mill/mm3 3.7-5.2 HEMOGLOBIN (test code=HGB) 7.7 gram/dL 11.5-15.5 HEMATOCRIT (test code=HCT) 23.6 % 36.0-46.0 MEAN CELL VOLUME (test code=MCV) 92.9 fL 80-98 MEAN CELL HGB (test code=MCH) 30.3 picogram 27.0-33.0 MEAN CELL HGB CONCETRATION (test code=MCHC) 32.6 gram/dL 33.0-36.0 RED CELL DISTRIBUTION WIDTH (test code=RDW) 19.7 % 11.6-16.2 RED CELL DISTRIBUTION WIDTH SD (test code=RDW-SD) 64.9 fL 37.0-51.0 PLATELET COUNT (test code=PLT) 116 K/mm3 150-450 MEAN PLATELET VOLUME (test code=MPV) 10.7 fL 6.7-11.0 NEUTROPHIL % (test code=NT%) 90.2 % 39.0-69.0 IMMATURE GRANULOCYTE % (test code=IG%) 1.2 % 0.0-5.0 LYMPHOCYTE % (test code=LY%) 5.2 % 25.0-55.0 MONOCYTE % (test code=MO%) 3.2 % 0.0-10.0 EOSINOPHIL % (test code=EO%) 0.2 % 0.0-5.0 BASOPHIL % (test code=BA%) 0.0 % 0.0-1.0 NUCLEATED RBC % (test code=NRBC%) 0.0 % 0-0 NEUTROPHIL # (test code=NT#) 5.34 K/mm3 1.8-7.7 IMMATURE GRANULOCYTE # (test code=IG#) 0.07 x10 3/uL 0-0.03 LYMPHOCYTE # (test code=LY#) 0.31 K/mm3 1.0-5.0 MONOCYTE # (test code=MO#) 0.19 K/mm3 0-0.8 EOSINOPHIL # (test code=EO#) 0.01 K/mm3 0.0-0.5 BASOPHIL # (test code=BA#) 0.00 K/mm3 0.0-0.2 NUCLEATED RBC # (test code=NRBC#) 0.00 K/mm3 0.0-0.1 [id number] 16:35:00* Test Item Value Reference Range Comments GLUBED (test code=GLUBED) 97 mg/dL 74-106 Performed by certified traffic control operator at [facility] VANCOMYCIN [id number] 11:32:00* Test Item Value Reference Range Comments VANCOMYCIN TROUGH (test code=VANCT) 8.4 ug/mL 10-20 [id number] 11:30:00* Test Item Value Reference Range Comments GLUCOSE (test code=GLU) 77 mg/dL 74-106 BASIC METABOLIC [id number] 06:44:00* Test Item Value Reference Range Comments SODIUM (test code=NA) 146 mmol/L 136-145 POTASSIUM (test code=K) 3.1 mmol/L 3.5-5.1 CHLORIDE (test code=CL) 103.2 mmol/L 98-107 CARBON DIOXIDE (test code=CO2) 37.0 mmol/L 21-32 ANION GAP (test code=GAP) 8.9 10-20 GLUCOSE (test code=GLU) 196 mg/dL 74-106 BLOOD UREA NITROGEN (test code=BUN) 11 mg/dL 7-18 GLOMERULAR FILTRATION RATE (test code=GFR) > 60 mL/min >=60 Estimated GFR by using Modified MDRD formula.Chronic kidney disease is defined as either kidney damageor GFR <60 mL/min/1.73 m2 for >3 months. CREATININE (test code=CREAT) 0.76 mg/dL 0.55-1.02 Note change in reference range due to change in reagent. BUN/CREATININE RATIO (test code=BUN/CREA) 14.5 -20 CALCIUM (test code=CA) 7.0 mg/dL 8.5-10.1 [id number] 06:44:00* Test Item Value Reference Range Comments PHOSPHORUS (test code=PHOS) 2.1 mg/dL 2.5-4.9 [id number] 06:44:00* Test Item Value Reference Range Comments MAGNESIUM (test code=MAG) 1.8 mg/dL 1.8-2.4 CALCIUM [id number] 06:44:00* Test Item Value Reference Range Comments CALCIUM IONIZED (test code=CONNIE) 1.05 mmol/L 1.12-1.32 Previously reported result: 0.92 mmol/LEdited by: GISELLE on 03/11/19:41611503/11/19 0644: CA IONIZED previously reported as: 0.92 L mmol/L BASIC METABOLIC [id number] 06:38:00* Test Item Value Reference Range Comments SODIUM (test code=NA) 146 mmol/L 136-145 POTASSIUM (test code=K) 3.1 mmol/L 3.5-5.1 CHLORIDE (test code=CL) 103.2 mmol/L 98-107 CARBON DIOXIDE (test code=CO2) 37.0 mmol/L 21-32 ANION GAP (test code=GAP) 8.9 10-20 GLUCOSE (test code=GLU) 196 mg/dL 74-106 BLOOD UREA NITROGEN (test code=BUN) 11 mg/dL 7-18 GLOMERULAR FILTRATION RATE (test code=GFR) > 60 mL/min >=60 Estimated GFR by using Modified MDRD formula.Chronic kidney disease is defined as either kidney damageor GFR <60 mL/min/1.73 m2 for >3 months. CREATININE (test code=CREAT) 0.76 mg/dL 0.55-1.02 Note change in reference range due to change in reagent. BUN/CREATININE RATIO (test code=BUN/CREA) 14.5 10-20 CALCIUM (test code=CA) 7.0 mg/dL 8.5-10.1 [id number] 06:38:00* Test Item Value Reference Range Comments PHOSPHORUS (test code=PHOS) 2.1 mg/dL 2.5-4.9 [id number] 06:38:00* Test Item Value Reference Range Comments MAGNESIUM (test code=MAG) 1.8 mg/dL 1.8-2.4 CALCIUM [id number] 06:38:00* Test Item Value Reference Range Comments CALCIUM IONIZED (test code=CONNIE) 0.92 mmol/L 1.12-1.32 LACTIC [id number] 05:44:00* Test Item Value Reference Range Comments LACTIC ACID (test code=LACT) 3.8 mmol/L 0.4-1.9 Results called to [id number] by GENET.JP1 03/11/19 0543Critical results verified and read back by Nurse?Y CBC W/AUTO [id number] 05:43:00* Test Item Value Reference Range Comments WHITE BLOOD CELL (test code=WBC) 12.5 K/mm3 4.5-12.5 RED BLOOD CELL (test code=RBC) 2.66 mill/mm3 3.7-5.2 HEMOGLOBIN (test code=HGB) 8.2 gram/dL 11.5-15.5 HEMATOCRIT (test code=HCT) 23.9 % 36.0-46.0 MEAN CELL VOLUME (test code=MCV) 89.8 fL 80-98 MEAN CELL HGB (test code=MCH) 30.8 picogram 27.0-33.0 MEAN CELL HGB CONCETRATION (test code=MCHC) 34.3 gram/dL 33.0-36.0 RED CELL DISTRIBUTION WIDTH (test code=RDW) 20.0 % 11.6-16.2 RED CELL DISTRIBUTION WIDTH SD (test code=RDW-SD) 63.2 fL 37.0-51.0 PLATELET COUNT (test code=PLT) 165 K/mm3 150-450 MEAN PLATELET VOLUME (test code=MPV) 10.8 fL 6.7-11.0 NEUTROPHIL % (test code=NT%) 93.6 % 39.0-69.0 IMMATURE GRANULOCYTE % (test code=IG%) 1.2 % 0.0-5.0 LYMPHOCYTE % (test code=LY%) 2.5 % 25.0-55.0 MONOCYTE % (test code=MO%) 2.6 % 0.0-10.0 EOSINOPHIL % (test code=EO%) 0.0 % 0.0-5.0 BASOPHIL % (test code=BA%) 0.1 % 0.0-1.0 NUCLEATED RBC % (test code=NRBC%) 0.7 % 0-0 NEUTROPHIL # (test code=NT#) 11.74 K/mm3 1.8-7.7 IMMATURE GRANULOCYTE # (test code=IG#) 0.15 x10 3/uL 0-0.03 LYMPHOCYTE # (test code=LY#) 0.31 K/mm3 1.0-5.0 MONOCYTE # (test code=MO#) 0.33 K/mm3 0-0.8 EOSINOPHIL # (test code=EO#) 0.00 K/mm3 0.0-0.5 BASOPHIL # (test code=BA#) 0.01 K/mm3 0.0-0.2 NUCLEATED RBC # (test code=NRBC#) 0.09 K/mm3 0.0-0.1 CBC W/AUTO [id number] 05:43:00* Test Item Value Reference Range Comments WHITE BLOOD CELL (test code=WBC) 12.5 K/mm3 4.5-12.5 RED BLOOD CELL (test code=RBC) 2.66 mill/mm3 3.7-5.2 HEMOGLOBIN (test code=HGB) 8.2 gram/dL 11.5-15.5 HEMATOCRIT (test code=HCT) 23.9 % 36.0-46.0 MEAN CELL VOLUME (test code=MCV) 89.8 fL 80-98 MEAN CELL HGB (test code=MCH) 30.8 picogram 27.0-33.0 MEAN CELL HGB CONCETRATION (test code=MCHC) 34.3 gram/dL 33.0-36.0 RED CELL DISTRIBUTION WIDTH (test code=RDW) 20.0 % 11.6-16.2 RED CELL DISTRIBUTION WIDTH SD (test code=RDW-SD) 63.2 fL 37.0-51.0 PLATELET COUNT (test code=PLT) 165 K/mm3 150-450 MEAN PLATELET VOLUME (test code=MPV) 10.8 fL 6.7-11.0 NEUTROPHIL % (test code=NT%) 93.6 % 39.0-69.0 IMMATURE GRANULOCYTE % (test code=IG%) 1.2 % 0.0-5.0 LYMPHOCYTE % (test code=LY%) 2.5 % 25.0-55.0 MONOCYTE % (test code=MO%) 2.6 % 0.0-10.0 EOSINOPHIL % (test code=EO%) 0.0 % 0.0-5.0 BASOPHIL % (test code=BA%) 0.1 % 0.0-1.0 NUCLEATED RBC % (test code=NRBC%) 0.7 % 0-0 NEUTROPHIL # (test code=NT#) 11.74 K/mm3 1.8-7.7 IMMATURE GRANULOCYTE # (test code=IG#) 0.15 x10 3/uL 0-0.03 LYMPHOCYTE # (test code=LY#) 0.31 K/mm3 1.0-5.0 MONOCYTE # (test code=MO#) 0.33 K/mm3 0-0.8 EOSINOPHIL # (test code=EO#) 0.00 K/mm3 0.0-0.5 BASOPHIL # (test code=BA#) 0.01 K/mm3 0.0-0.2 NUCLEATED RBC # (test code=NRBC#) 0.09 K/mm3 0.0-0.1 MANUAL DIFF REQUIRED (test code=MDIFF) NO BASIC METABOLIC [id number] 05:28:00* Test Item Value Reference Range Comments SODIUM (test code=NA) mmol/L 136-145 POTASSIUM (test code=K) mmol/L 3.5-5.1 CHLORIDE (test code=CL) mmol/L 98-107 CARBON DIOXIDE (test code=CO2) mmol/L 21-32 ANION GAP (test code=GAP) 10-20 GLUCOSE (test code=GLU) mg/dL 74-106 BLOOD UREA NITROGEN (test code=BUN) mg/dL 7-18 GLOMERULAR FILTRATION RATE (test code=GFR) mL/min >=60 CREATININE (test code=CREAT) mg/dL 0.55-1.02 BUN/CREATININE RATIO (test code=BUN/CREA) 10-20 CALCIUM (test code=CA) mg/dL 8.5-10.1 [id number] 05:28:00* Test Item Value Reference Range Comments PHOSPHORUS (test code=PHOS) mg/dL 2.5-4.9 [id number] 05:28:00* Test Item Value Reference Range Comments MAGNESIUM (test code=MAG) mg/dL 1.8-2.4 CALCIUM [id number] 05:28:00* Test Item Value Reference Range Comments CALCIUM IONIZED (test code=CONNIE) 0.92 mmol/L 1.12-1.32 - US ABDOMEN [id number] 19:09:00 Name: OLEG STEINER [facility] : 1960 Age/S: 58 / F [address] [facility] Unit #: [id number] Loc: [place] [address] Phys: Krystal Adorno Acct: [id number] Dis Date: Status: ADM IN PHONE #: [phone] Exam Date: 03/10/2019 1846 FAX #: [phone] Reason: elevated lft's, sepsis EXAMS: CPT CODE: [id number] US ABDOMEN COMPLETE [id number] REASON FOR EXAM: elevated lft's, sepsis EXAM ORDER DATE: 03/10/2019 8:04 AM Attending Jay: RAQUEL Azevedo PROCEDURE: - US ABDOMEN COMPLETE FINDINGS: The liver is moderately echogenic. There is no evidence of focal mass identified. The pancreas is within normal limits. The right kidney measures 11.8 x 4.3 cm. The left kidney measures 11.7 x 5.5 cm. There is no evidence of hydronephrosis. There is no evidence of nephrolithiasis. There is no evidence of renal mass. The spleen measures 7.1 cm. The patient is status post cholecystectomy.The common bile duct measures 0.5 cm. There is no evidence of ascites. The aorta and IVC are within normal limits. The portal vein is patent with hepatopetal flow IMPRESSION: Fatty liver at 190 Reported and signed by: Matty Ingram M.D. CC: Precious Teague MD; Krystal Adorno Technologist: Elton Roberson Trnscb Date/Time: 03/10/2019 (1908) t.SDR.VTL Orig Print D/T: S: 03/10/2019 (1911) Probe: PAGE 1 Signed Report PROCALCITONIN (PCT)2019-03-10 16:40:00* Test Item Value Reference Range Comments PROCALCITONIN (PCT) (test code=PROCAL) 1.13 ng/ml Concentration Interpretation (ng/mL) <0.51 Sepsis is not likely. Local bacterial infection is possible. (LOW RISK for progression to Sepsis) 0.51 - 2.00 Sepsis is possible, but other conditions are known to elevate PCT as well. (MODERATE RISK for progression to Sepsis) > 2.00 Sepsis is likely, unless other causes are known. (HIGH RISK for progression to Severe Sepsis or Septic Shock) 10.00 High likelihood of Severe Sepsis or Septic or higher Shock. *Increased PCT levels may not always be related to systemic bacterial infection.*Low PCT levels do not automatically exclude the presence of bacterial infection.*All results should be interpreted taking into account the patients history. COMMENTS TO FOREST RESOURCE SPECIALIST: add [id number] 16:27:00* Test Item Value Reference Range Comments GLUBED (test code=GLUBED) 164 mg/dL 74-106 Performed by certified traffic control operator at [facility] OSMOLALITY [id number] 16:15:00* Test Item Value Reference Range Comments OSMOLALITY SERUM (test code=OSMO) 310 mOsm/kg 275-295 [id number] 16:12:00* Test Item Value Reference Range Comments TROPONIN-I (test code=TROPI) 0.078 ng/mL 0-0.045 Results called to [id number] by V.LAB.AA 03/10/19 1612Critical results verified and read back by Nurse? Y COMMENTS TO FOREST RESOURCE SPECIALIST: COLLECT 3 HOURS AFTER PREVIOUS SAMPLEBASIC METABOLIC [id number] 16:11:00* Test Item Value Reference Range Comments SODIUM (test code=NA) 142 mmol/L 136-145 POTASSIUM (test code=K) 2.8 mmol/L 3.5-5.1 Results called to [id number] by V.LAB.AA 03/10/19 1611Critical results verified and read back by Nurse? Y CHLORIDE (test code=CL) 106.0 mmol/L 98-107 CARBON DIOXIDE (test code=CO2) 21.0 mmol/L 21-32 ANION GAP (test code=GAP) 17.8 10-20 GLUCOSE (test code=GLU) 172 mg/dL 74-106 BLOOD UREA NITROGEN (test code=BUN) 12 mg/dL 7-18 GLOMERULAR FILTRATION RATE (test code=GFR) 46 mL/min >=60 Estimated GFR by using Modified MDRD formula.Chronic kidney disease is defined as either kidney damageor GFR <60 mL/min/1.73 m2 for >3 months. CREATININE (test code=CREAT) 1.20 mg/dL 0.55-1.02 Note change in reference range due to change in reagent. BUN/CREATININE RATIO (test code=BUN/CREA) 10.0 10-20 CALCIUM (test code=CA) 7.1 mg/dL 8.5-10.1 [id number] 16:11:00* Test Item Value Reference Range Comments PHOSPHORUS (test code=PHOS) 1.2 mg/dL 2.5-4.9 [id number] 16:11:00* Test Item Value Reference Range Comments MAGNESIUM (test code=MAG) 2.2 mg/dL 1.8-2.4 UR NA,[id number] 16:09:00* Test Item Value Reference Range Comments UR NA,RANDOM (test code=BABATUNDE) 83 mmol/L 20-110 UR PROTEIN/CREATININE [id number] 16:09:00* Test Item Value Reference Range Comments UR PROTEIN RANDOM (test code=PROTU) 96.4 mg/dL 0.0-11.9 Protein levels may be falsely elevated in patients withelevated level of aminoglycoside antibiotics in CSF and inhighly concentrated urine specimens. If false elevation issuspected, contact lab for alternated testing technique. UR CREATININE RANDOM (test code=CREATU) 48.0 mg/dL 30-125 PROTEIN/CREATININE RATIO (test code=P/CRATIO) 2.01 RATIO 0.0-0.20 LACTIC [id number] 16:07:00* Test Item Value Reference Range Comments LACTIC ACID (test code=LACT) 11.0 mmol/L 0.4-1.9 Results called to [id number] by V.LAB.LINO 03/10/19 1607Critical results verified and read back by Nurse? Y UR NA,[id number] 16:00:00* Test Item Value Reference Range Comments UR NA,RANDOM (test code=BABATUNDE) 83 mmol/L 20-110 UR PROTEIN/CREATININE [id number] 16:00:00* Test Item Value Reference Range Comments UR PROTEIN RANDOM (test code=PROTU) mg/dL 0.0-11.9 UR CREATININE RANDOM (test code=CREATU) mg/dL 30-125 PROTEIN/CREATININE RATIO (test code=P/CRATIO) RATIO 0.0-0.20 CBC W/AUTO [id number] 15:46:00* Test Item Value Reference Range Comments WHITE BLOOD CELL (test code=WBC) 14.7 K/mm3 4.5-12.5 RED BLOOD CELL (test code=RBC) 2.78 mill/mm3 3.7-5.2 HEMOGLOBIN (test code=HGB) 8.5 gram/dL 11.5-15.5 HEMATOCRIT (test code=HCT) 25.7 % 36.0-46.0 MEAN CELL VOLUME (test code=MCV) 92.4 fL 80-98 RESULT VERIFIED BY REPEAT ANALYSIS MEAN CELL HGB (test code=MCH) 30.6 picogram 27.0-33.0 MEAN CELL HGB CONCETRATION (test code=MCHC) 33.1 gram/dL 33.0-36.0 RED CELL DISTRIBUTION WIDTH (test code=RDW) 19.3 % 11.6-16.2 RED CELL DISTRIBUTION WIDTH SD (test code=RDW-SD) 63.0 fL 37.0-51.0 PLATELET COUNT (test code=PLT) 167 K/mm3 150-450 MEAN PLATELET VOLUME (test code=MPV) 10.6 fL 6.7-11.0 NEUTROPHIL % (test code=NT%) 90.6 % 39.0-69.0 IMMATURE GRANULOCYTE % (test code=IG%) 2.7 % 0.0-5.0 LYMPHOCYTE % (test code=LY%) 3.3 % 25.0-55.0 MONOCYTE % (test code=MO%) 3.3 % 0.0-10.0 EOSINOPHIL % (test code=EO%) 0.0 % 0.0-5.0 BASOPHIL % (test code=BA%) 0.1 % 0.0-1.0 NUCLEATED RBC % (test code=NRBC%) 1.2 % 0-0 NEUTROPHIL # (test code=NT#) 13.36 K/mm3 1.8-7.7 IMMATURE GRANULOCYTE # (test code=IG#) 0.40 x10 3/uL 0-0.03 LYMPHOCYTE # (test code=LY#) 0.48 K/mm3 1.0-5.0 MONOCYTE # (test code=MO#) 0.48 K/mm3 0-0.8 EOSINOPHIL # (test code=EO#) 0.00 K/mm3 0.0-0.5 BASOPHIL # (test code=BA#) 0.02 K/mm3 0.0-0.2 NUCLEATED RBC # (test code=NRBC#) 0.18 K/mm3 0.0-0.1 MANUAL DIFF REQUIRED (test code=MDIFF) NO LACTIC [id number] 13:52:00* Test Item Value Reference Range Comments LACTIC ACID (test code=LACT) 13.2 mmol/L 0.4-1.9 Results called to [id number] by V.LAB.[facility] 03/10/19 1351Critical results verified and read back by Nurse? Y [id number] 13:43:00* Test Item Value Reference Range Comments TROPONIN-I (test code=TROPI) 0.063 ng/mL 0-0.045 COMMENTS TO FOREST RESOURCE SPECIALIST: COLLECT 3 HOURS AFTER PREVIOUS SAMPLELACTIC [id number] 12:26:00* Test Item Value Reference Range Comments LACTIC ACID (test code=LACT) 15.2 mmol/L 0.4-1.9 Results called to [id number] by V.LAB.[facility] 03/10/19 1225Critical results verified and read back by Nurse? Y [id number] 11:37:00* Test Item Value Reference Range Comments GLUBED (test code=GLUBED) 114 mg/dL 74-106 Performed by certified traffic control operator at [facility] [id number] 11:06:00* Test Item Value Reference Range Comments PHOSPHORUS (test code=PHOS) 3.8 mg/dL 2.5-4.9 [id number] 11:06:00* Test Item Value Reference Range Comments MAGNESIUM (test code=MAG) 1.6 mg/dL 1.8-2.4 CALCIUM [id number] 11:06:00* Test Item Value Reference Range Comments CALCIUM IONIZED (test code=CONNIE) 1.03 mmol/L 1.12-1.32 CBC W/AUTO [id number] 09:43:00* Test Item Value Reference Range Comments WHITE BLOOD CELL (test code=WBC) 13.7 K/mm3 4.5-12.5 RED BLOOD CELL (test code=RBC) 2.08 mill/mm3 3.7-5.2 HEMOGLOBIN (test code=HGB) 6.7 gram/dL 11.5-15.5 HEMATOCRIT (test code=HCT) 22.7 % 36.0-46.0 MEAN CELL VOLUME (test code=MCV) 109.1 fL 80-98 MEAN CELL HGB (test code=MCH) 32.2 picogram 27.0-33.0 MEAN CELL HGB CONCETRATION (test code=MCHC) 29.5 gram/dL 33.0-36.0 RED CELL DISTRIBUTION WIDTH (test code=RDW) 20.1 % 11.6-16.2 RED CELL DISTRIBUTION WIDTH SD (test code=RDW-SD) 79.7 fL 37.0-51.0 PLATELET COUNT (test code=PLT) 183 K/mm3 150-450 RESULT VERIFIED BY REPEAT ANALYSIS MEAN PLATELET VOLUME (test code=MPV) 11.2 fL 6.7-11.0 NEUTROPHIL % (test code=NT%) 92.5 % 39.0-69.0 IMMATURE GRANULOCYTE % (test code=IG%) 1.2 % 0.0-5.0 LYMPHOCYTE % (test code=LY%) 2.6 % 25.0-55.0 MONOCYTE % (test code=MO%) 3.5 % 0.0-10.0 EOSINOPHIL % (test code=EO%) 0.0 % 0.0-5.0 BASOPHIL % (test code=BA%) 0.2 % 0.0-1.0 NUCLEATED RBC % (test code=NRBC%) 2.0 % 0-0 NEUTROPHIL # (test code=NT#) 12.66 K/mm3 1.8-7.7 IMMATURE GRANULOCYTE # (test code=IG#) 0.16 x10 3/uL 0-0.03 LYMPHOCYTE # (test code=LY#) 0.36 K/mm3 1.0-5.0 MONOCYTE # (test code=MO#) 0.48 K/mm3 0-0.8 EOSINOPHIL # (test code=EO#) 0.00 K/mm3 0.0-0.5 BASOPHIL # (test code=BA#) 0.03 K/mm3 0.0-0.2 NUCLEATED RBC # (test code=NRBC#) 0.27 K/mm3 0.0-0.1 MANUAL DIFF REQUIRED (test code=MDIFF) NO, ONLY SCAN NEEDED DIFFERENTIAL [id number] 09:43:00* Test Item Value Reference Range Comments STAIN ACCEPTABILITY (test code=STN ACCEPTABLE) STAIN ACCEPTABLE POIKILOCYTOSIS (test code=POIK) 3+ ANISOCYTOSIS (test code=ANISO) 3+ MACROCYTOSIS (test code=MACR) 3+ TARGET CELLS (test code=TGT) 1+ ELLIPTOCYTES (test code=ELL) 1+ CRENATED CELLS (test code=CREN) 1+ PLATELET ESTIMATE (test code=PLTEST) ADEQUATE PLATELET MORPHOLOGY (test code=PLTMORPH) NORMAL [id number] 09:42:00* Test Item Value Reference Range Comments GLUBED (test code=GLUBED) 89 mg/dL 74-106 Performed by certified traffic control operator at [facility] [id number] 09:41:00* Test Item Value Reference Range Comments PHOSPHORUS (test code=PHOS) 3.8 mg/dL 2.5-4.9 [id number] 09:41:00* Test Item Value Reference Range Comments MAGNESIUM (test code=MAG) 1.6 mg/dL 1.8-2.4 CALCIUM [id number] 09:41:00* Test Item Value Reference Range Comments CALCIUM IONIZED (test code=CONNIE) mmol/L 1.12-1.32 COMPREHENSIVE METABOLIC [id number] 09:16:00* Test Item Value Reference Range Comments SODIUM (test code=NA) 144 mmol/L 136-145 POTASSIUM (test code=K) 3.2 mmol/L 3.5-5.1 CHLORIDE (test code=CL) 106.0 mmol/L 98-107 CARBON DIOXIDE (test code=CO2) 8.0 mmol/L 21-32 ANION GAP (test code=GAP) 33.2 10-20 GLUCOSE (test code=GLU) 59 mg/dL 74-106 BLOOD UREA NITROGEN (test code=BUN) 13 mg/dL 7-18 GLOMERULAR FILTRATION RATE (test code=GFR) 38 mL/min >=60 Estimated GFR by using Modified MDRD formula.Chronic kidney disease is defined as either kidney damageor GFR <60 mL/min/1.73 m2 for >3 months. CREATININE (test code=CREAT) 1.40 mg/dL 0.55-1.02 Note change in reference range due to change in reagent. BUN/CREATININE RATIO (test code=BUN/CREA) 9.3 10-20 TOTAL PROTEIN (test code=PROT) 4.5 gram/dL 6.4-8.2 ALBUMIN (test code=ALB) 1.4 g/dL 3.4-5.0 GLOBULIN (test code=GLOB) 3.1 gram/dL 2.7-4.2 ALBUMIN/GLOBULIN RATIO (test code=A/G) 0.5 0.75-1.50 CALCIUM (test code=CA) 7.9 mg/dL 8.5-10.1 BILIRUBIN TOTAL (test code=BILT) 1.30 mg/dL 0.0-1.0 SGOT/AST (test code=AST) 191 IUnit/L 15-37 SGPT/ALT (test code=ALT) 58 IUnit/L 12-78 ALKALINE PHOSPHATASE TOTAL (test code=ALKP) 72 IUnit/L 45-117 Note change in reference range due to change in reagent. URINALYSIS [id number] 08:48:00* Test Item Value Reference Range Comments UA COLOR (test code=COLU) YELLOW YELLOW UA APPEARANCE (test code=APPU) Cloudy CLEAR UA GLUCOSE DIPSTICK (test code=DGLUU) NEGATIVE mg/dL NEGATIVE UA BILIRUBIN DIPSTICK (test code=BILU) NEGATIVE mg/dL NEGATIVE UA KETONE DIPSTICK (test code=KETU) 20 (1+) mg/dL NEGATIVE UA SPECIFIC GRAVITY (test code=SGU) 1.019 1.001-1.035 UA BLOOD DIPSTICK (test code=JORGE) 0.2 mg/dL (2+) mg/dL NEGATIVE UA PH DIPSTICK (test code=MAGED) 5.5 5.0-8.0 UA PROTEIN DIPSTICK (test code=PROU) 100 (2+) mg/dL NEGATIVE UA UROBILINIOGEN DIPSTICK (test code=URO) Normal mg/dL NEGATIVE UA NITRITE DIPSTICK (test code=BHARATH) NEGATIVE NEGATIVE UA LEUKOCYTE ESTERASE W REFLEX (test code=LEUUR) NEGATIVE Ana/uL NEGATIVE UA WBC (test code=WBCU) 11-20 per HPF 0-5 UA RBC (test code=RBCU) 11-20 #/HPF 0-5 UA EPITHELIAL CELLS (test code=EPIU) FEW per HPF FEW UA BACTERIA (test code=BACU) FEW #/HPF NONE UA HYALINE CAST (test code=HYALU) >20 #/LPF 0-5 UA MUCUS (test code=MUCU) FEW #/LPF FEW Urine Source? Clean CatchARTERIAL BLOOD [id number] 08:19:00* Test Item Value Reference Range Comments ARTERIAL BLOOD GAS PH (test code=PHA) 7.44 7.35-7.45 ARTERIAL BLOOD GAS PCO2 (test code=PCO2A) < 11.9 mm Hg 35-45 Results called to and read back by dr espinosa 03/10/2019; by rashaad ARTERIAL BLOOD GAS PO2 (test code=PO2A) 131.1 mmHg 80-100 ABG O2 SATURATION (test code=SATA) 97.5 % 90.0-98.0 ABG TYPE (test code=TYPEA) Arterial FIO2 (test code=FIO2A) 28.0 ABG SITE (test code=SITEA) Rt BRACHIAL ARTERY HEMATOCRIT (test code=HCT/ABG) 20 % 35-47 TOTAL HGB (test code=THB) 6.9 gram/dL 11.5-15.5 HGB O2 SAT (test code=HBOSAT) 96.4 % 94.00-98.00 CARBOXYHEMOGLOBIN (test code=HOHGBT) 0.3 %totalHg 0.5-1.5 Results called to and read back by dr espinosa 03/10/2019; by rashaad METHEMOGLOBIN (test code=METHGB) 0.8 % 0.0-1.50 O2 CONTENT (test code=O2CT) 9.7 % vol 18.0-22.0 URINALYSIS [id number] 08:19:00* Test Item Value Reference Range Comments UA COLOR (test code=COLU) YELLOW YELLOW UA APPEARANCE (test code=APPU) Cloudy CLEAR UA GLUCOSE DIPSTICK (test code=DGLUU) NEGATIVE mg/dL NEGATIVE UA BILIRUBIN DIPSTICK (test code=BILU) NEGATIVE mg/dL NEGATIVE UA KETONE DIPSTICK (test code=KETU) 20 (1+) mg/dL NEGATIVE UA SPECIFIC GRAVITY (test code=SGU) 1.019 1.001-1.035 UA BLOOD DIPSTICK (test code=JORGE) 0.2 mg/dL (2+) mg/dL NEGATIVE UA PH DIPSTICK (test code=MAGED) 5.5 5.0-8.0 UA PROTEIN DIPSTICK (test code=PROU) 100 (2+) mg/dL NEGATIVE UA UROBILINIOGEN DIPSTICK (test code=URO) Normal mg/dL NEGATIVE UA NITRITE DIPSTICK (test code=BHARATH) NEGATIVE NEGATIVE UA LEUKOCYTE ESTERASE W REFLEX (test code=LEUUR) NEGATIVE Ana/uL NEGATIVE UA WBC (test code=WBCU) per HPF 0-5 UA RBC (test code=RBCU) per HPF 0-5 UA EPITHELIAL CELLS (test code=EPIU) per HPF Few UA BACTERIA (test code=BACU) per HPF NONE Urine Source? Clean CatchCBC W/AUTO [id number] 08:01:00* Test Item Value Reference Range Comments WHITE BLOOD CELL (test code=WBC) 13.7 K/mm3 4.5-12.5 RED BLOOD CELL (test code=RBC) 2.08 mill/mm3 3.7-5.2 HEMOGLOBIN (test code=HGB) 6.7 gram/dL 11.5-15.5 HEMATOCRIT (test code=HCT) 22.7 % 36.0-46.0 MEAN CELL VOLUME (test code=MCV) 109.1 fL 80-98 MEAN CELL HGB (test code=MCH) 32.2 picogram 27.0-33.0 MEAN CELL HGB CONCETRATION (test code=MCHC) 29.5 gram/dL 33.0-36.0 RED CELL DISTRIBUTION WIDTH (test code=RDW) 20.1 % 11.6-16.2 RED CELL DISTRIBUTION WIDTH SD (test code=RDW-SD) 79.7 fL 37.0-51.0 PLATELET COUNT (test code=PLT) 183 K/mm3 150-450 RESULT VERIFIED BY REPEAT ANALYSIS MEAN PLATELET VOLUME (test code=MPV) 11.2 fL 6.7-11.0 NEUTROPHIL % (test code=NT%) 92.5 % 39.0-69.0 IMMATURE GRANULOCYTE % (test code=IG%) 1.2 % 0.0-5.0 LYMPHOCYTE % (test code=LY%) 2.6 % 25.0-55.0 MONOCYTE % (test code=MO%) 3.5 % 0.0-10.0 EOSINOPHIL % (test code=EO%) 0.0 % 0.0-5.0 BASOPHIL % (test code=BA%) 0.2 % 0.0-1.0 NUCLEATED RBC % (test code=NRBC%) 2.0 % 0-0 NEUTROPHIL # (test code=NT#) 12.66 K/mm3 1.8-7.7 IMMATURE GRANULOCYTE # (test code=IG#) 0.16 x10 3/uL 0-0.03 LYMPHOCYTE # (test code=LY#) 0.36 K/mm3 1.0-5.0 MONOCYTE # (test code=MO#) 0.48 K/mm3 0-0.8 EOSINOPHIL # (test code=EO#) 0.00 K/mm3 0.0-0.5 BASOPHIL # (test code=BA#) 0.03 K/mm3 0.0-0.2 NUCLEATED RBC # (test code=NRBC#) 0.27 K/mm3 0.0-0.1 MANUAL DIFF REQUIRED (test code=MDIFF) NO, ONLY SCAN NEEDED DIFFERENTIAL [id number] 08:01:00* Test Item Value Reference Range Comments STAIN ACCEPTABILITY (test code=STN ACCEPTABLE) CABOT RINGS (test code=CAB) MORPHOLOGY COMMENT (test code=MOC) PLATELET ESTIMATE (test code=PLTEST) PLATELET MORPHOLOGY (test code=PLTMORPH) CBC W/AUTO [id number] 08:01:00* Test Item Value Reference Range Comments WHITE BLOOD CELL (test code=WBC) 13.7 K/mm3 4.5-12.5 RED BLOOD CELL (test code=RBC) 2.08 mill/mm3 3.7-5.2 HEMOGLOBIN (test code=HGB) 6.7 gram/dL 11.5-15.5 HEMATOCRIT (test code=HCT) 22.7 % 36.0-46.0 MEAN CELL VOLUME (test code=MCV) 109.1 fL 80-98 MEAN CELL HGB (test code=MCH) 32.2 picogram 27.0-33.0 MEAN CELL HGB CONCETRATION (test code=MCHC) 29.5 gram/dL 33.0-36.0 RED CELL DISTRIBUTION WIDTH (test code=RDW) 20.1 % 11.6-16.2 RED CELL DISTRIBUTION WIDTH SD (test code=RDW-SD) 79.7 fL 37.0-51.0 PLATELET COUNT (test code=PLT) 183 K/mm3 150-450 RESULT VERIFIED BY REPEAT ANALYSIS MEAN PLATELET VOLUME (test code=MPV) 11.2 fL 6.7-11.0 NEUTROPHIL % (test code=NT%) 92.5 % 39.0-69.0 IMMATURE GRANULOCYTE % (test code=IG%) 1.2 % 0.0-5.0 LYMPHOCYTE % (test code=LY%) 2.6 % 25.0-55.0 MONOCYTE % (test code=MO%) 3.5 % 0.0-10.0 EOSINOPHIL % (test code=EO%) 0.0 % 0.0-5.0 BASOPHIL % (test code=BA%) 0.2 % 0.0-1.0 NUCLEATED RBC % (test code=NRBC%) 2.0 % 0-0 NEUTROPHIL # (test code=NT#) 12.66 K/mm3 1.8-7.7 IMMATURE GRANULOCYTE # (test code=IG#) 0.16 x10 3/uL 0-0.03 LYMPHOCYTE # (test code=LY#) 0.36 K/mm3 1.0-5.0 MONOCYTE # (test code=MO#) 0.48 K/mm3 0-0.8 EOSINOPHIL # (test code=EO#) 0.00 K/mm3 0.0-0.5 BASOPHIL # (test code=BA#) 0.03 K/mm3 0.0-0.2 NUCLEATED RBC # (test code=NRBC#) 0.27 K/mm3 0.0-0.1 MANUAL DIFF REQUIRED (test code=MDIFF) NO, ONLY SCAN NEEDED DIFFERENTIAL [id number] 08:01:00* Test Item Value Reference Range Comments STAIN ACCEPTABILITY (test code=STN ACCEPTABLE) CABOT RINGS (test code=CAB) MORPHOLOGY COMMENT (test code=MOC) PLATELET ESTIMATE (test code=PLTEST) PLATELET MORPHOLOGY (test code=PLTMORPH) CBC W/AUTO [id number] 08:01:00* Test Item Value Reference Range Comments WHITE BLOOD CELL (test code=WBC) 13.7 K/mm3 4.5-12.5 RED BLOOD CELL (test code=RBC) 2.08 mill/mm3 3.7-5.2 HEMOGLOBIN (test code=HGB) 6.7 gram/dL 11.5-15.5 HEMATOCRIT (test code=HCT) 22.7 % 36.0-46.0 MEAN CELL VOLUME (test code=MCV) 109.1 fL 80-98 MEAN CELL HGB (test code=MCH) 32.2 picogram 27.0-33.0 MEAN CELL HGB CONCETRATION (test code=MCHC) 29.5 gram/dL 33.0-36.0 RED CELL DISTRIBUTION WIDTH (test code=RDW) 20.1 % 11.6-16.2 RED CELL DISTRIBUTION WIDTH SD (test code=RDW-SD) 79.7 fL 37.0-51.0 PLATELET COUNT (test code=PLT) 183 K/mm3 150-450 RESULT VERIFIED BY REPEAT ANALYSIS MEAN PLATELET VOLUME (test code=MPV) 11.2 fL 6.7-11.0 NEUTROPHIL % (test code=NT%) 92.5 % 39.0-69.0 IMMATURE GRANULOCYTE % (test code=IG%) 1.2 % 0.0-5.0 LYMPHOCYTE % (test code=LY%) 2.6 % 25.0-55.0 MONOCYTE % (test code=MO%) 3.5 % 0.0-10.0 EOSINOPHIL % (test code=EO%) 0.0 % 0.0-5.0 BASOPHIL % (test code=BA%) 0.2 % 0.0-1.0 NUCLEATED RBC % (test code=NRBC%) 2.0 % 0-0 NEUTROPHIL # (test code=NT#) 12.66 K/mm3 1.8-7.7 IMMATURE GRANULOCYTE # (test code=IG#) 0.16 x10 3/uL 0-0.03 LYMPHOCYTE # (test code=LY#) 0.36 K/mm3 1.0-5.0 MONOCYTE # (test code=MO#) 0.48 K/mm3 0-0.8 EOSINOPHIL # (test code=EO#) 0.00 K/mm3 0.0-0.5 BASOPHIL # (test code=BA#) 0.03 K/mm3 0.0-0.2 NUCLEATED RBC # (test code=NRBC#) 0.27 K/mm3 0.0-0.1 MANUAL DIFF REQUIRED (test code=MDIFF) NO, ONLY SCAN NEEDED DIFFERENTIAL [id number] 08:01:00* Test Item Value Reference Range Comments STAIN ACCEPTABILITY (test code=STN ACCEPTABLE) MORPHOLOGY COMMENT (test code=MOC) PLATELET ESTIMATE (test code=PLTEST) PLATELET MORPHOLOGY (test code=PLTMORPH) CBC W/AUTO [id number] 08:01:00* Test Item Value Reference Range Comments WHITE BLOOD CELL (test code=WBC) 13.7 K/mm3 4.5-12.5 RED BLOOD CELL (test code=RBC) 2.08 mill/mm3 3.7-5.2 HEMOGLOBIN (test code=HGB) 6.7 gram/dL 11.5-15.5 HEMATOCRIT (test code=HCT) 22.7 % 36.0-46.0 MEAN CELL VOLUME (test code=MCV) 109.1 fL 80-98 MEAN CELL HGB (test code=MCH) 32.2 picogram 27.0-33.0 MEAN CELL HGB CONCETRATION (test code=MCHC) 29.5 gram/dL 33.0-36.0 RED CELL DISTRIBUTION WIDTH (test code=RDW) 20.1 % 11.6-16.2 RED CELL DISTRIBUTION WIDTH SD (test code=RDW-SD) 79.7 fL 37.0-51.0 PLATELET COUNT (test code=PLT) 183 K/mm3 150-450 RESULT VERIFIED BY REPEAT ANALYSIS MEAN PLATELET VOLUME (test code=MPV) 11.2 fL 6.7-11.0 NEUTROPHIL % (test code=NT%) 92.5 % 39.0-69.0 IMMATURE GRANULOCYTE % (test code=IG%) 1.2 % 0.0-5.0 LYMPHOCYTE % (test code=LY%) 2.6 % 25.0-55.0 MONOCYTE % (test code=MO%) 3.5 % 0.0-10.0 EOSINOPHIL % (test code=EO%) 0.0 % 0.0-5.0 BASOPHIL % (test code=BA%) 0.2 % 0.0-1.0 NUCLEATED RBC % (test code=NRBC%) 2.0 % 0-0 NEUTROPHIL # (test code=NT#) 12.66 K/mm3 1.8-7.7 IMMATURE GRANULOCYTE # (test code=IG#) 0.16 x10 3/uL 0-0.03 LYMPHOCYTE # (test code=LY#) 0.36 K/mm3 1.0-5.0 MONOCYTE # (test code=MO#) 0.48 K/mm3 0-0.8 EOSINOPHIL # (test code=EO#) 0.00 K/mm3 0.0-0.5 BASOPHIL # (test code=BA#) 0.03 K/mm3 0.0-0.2 NUCLEATED RBC # (test code=NRBC#) 0.27 K/mm3 0.0-0.1 MANUAL DIFF REQUIRED (test code=MDIFF) NO, ONLY SCAN NEEDED DIFFERENTIAL [id number] 08:01:00* Test Item Value Reference Range Comments STAIN ACCEPTABILITY (test code=STN ACCEPTABLE) CABOT RINGS (test code=CAB) MORPHOLOGY COMMENT (test code=MOC) PLATELET ESTIMATE (test code=PLTEST) PLATELET MORPHOLOGY (test code=PLTMORPH) [id number] 07:25:00* Test Item Value Reference Range Comments GLUBED (test code=GLUBED) 80 mg/dL 74-106 Performed by certified traffic control operator at [facility] LACTIC [id number] 06:38:00* Test Item Value Reference Range Comments LACTIC ACID (test code=LACT) 19.2 mmol/L 0.4-1.9 Results called to [id number] by V.LAB.AG1 03/10/19 0635Critical results verified and read back by Nurse? Y LACTIC [id number] 03:46:00* Test Item Value Reference Range Comments LACTIC ACID (test code=LACT) 17.2 mmol/L 0.4-1.9 Results called to [id number] MIKE by V.LAB.AG1 03/10/19 0345Critical results verified and read back by Nurse? Y BASIC METABOLIC [id number] 03:45:00* Test Item Value Reference Range Comments SODIUM (test code=NA) 142 mmol/L 136-145 RESULT VERIFIED BY REPEAT ANALYSIS POTASSIUM (test code=K) 3.3 mmol/L 3.5-5.1 CHLORIDE (test code=CL) 107.0 mmol/L 98-107 CARBON DIOXIDE (test code=CO2) 6.0 mmol/L 21-32 ANION GAP (test code=GAP) 32.3 10-20 GLUCOSE (test code=GLU) 51 mg/dL 74-106 BLOOD UREA NITROGEN (test code=BUN) 13 mg/dL 7-18 GLOMERULAR FILTRATION RATE (test code=GFR) 35 mL/min >=60 Estimated GFR by using Modified MDRD formula.Chronic kidney disease is defined as either kidney damageor GFR <60 mL/min/1.73 m2 for >3 months. CREATININE (test code=CREAT) 1.50 mg/dL 0.55-1.02 Note change in reference range due to change in reagent. BUN/CREATININE RATIO (test code=BUN/CREA) 8.7 10-20 CALCIUM (test code=CA) 8.0 mg/dL 8.5-10.1 ARTERIAL BLOOD [id number] 03:32:00* Test Item Value Reference Range Comments ARTERIAL BLOOD GAS PH (test code=PHA) 7.28 7.35-7.45 ARTERIAL BLOOD GAS PCO2 (test code=PCO2A) < 11.9 mm Hg 35-45 Results called to and read back by KRYSTAL Wilde 03:31 - 03/10/2019; by COOPER MCCULLOUGH, TUMBLER PLATER ARTERIAL BLOOD GAS PO2 (test code=PO2A) 135.9 mmHg 80-100 ABG O2 SATURATION (test code=SATA) 97.3 % 90.0-98.0 ABG TYPE (test code=TYPEA) Arterial FIO2 (test code=FIO2A) 21.0 ABG SITE (test code=SITEA) Rt RADIAL ARTERY MODIFIED ALLENS (test code=MODALL) Yes CHECK PERFORMED SODIUM (test code=NA/ABG) 134.9 mEq/L 135-148 POTASSIUM (test code=K/ABG) 3.0 mEq/L 3.5-4.5 CHLORIDE (test code=CL/ABG) 105 mEq/L 98-106 GLUCOSE (test code=GLU/ABG) 79 mg/dL 74-99 HEMATOCRIT (test code=HCT/ABG) 25 % 35-47 IONIZED CALCIUM (test code=CAIABG) 1.07 mmol/L 1.1-1.37 TOTAL HGB (test code=THB) 8.4 gram/dL 11.5-15.5 HGB O2 SAT (test code=HBOSAT) 96.4 % 94.00-98.00 CARBOXYHEMOGLOBIN (test code=HOHGBT) 0.2 %totalHg 0.5-1.5 Results called to and read back by KRYSTAL Wilde 03:31 - 03/10/2019; by COOPER MCCULLOUGH RRT METHEMOGLOBIN (test code=METHGB) 0.7 % 0.0-1.50 O2 CONTENT (test code=O2CT) 11.7 % vol 18.0-22.0 - CT ABD PELVIS W/O [id number] 01:23:00 Name: OLEG STEINER [facility] : 1960 Age/S: 58 / F [address] [facility] Unit #: [id number] Loc: [place] [address] Phys: Krystal Adorno Acct: [id number] Dis Date: Status: ADM IN PHONE #: [phone] Exam Date: 03/10/2019 020 FAX #: [phone] Reason: abdominal pain, sepsis, open abd wound EXAMS: CPT CODE: [id number] CT ABD PELVIS W/O CONT 83272 CT abdomen and pelvis with IV contrast. Indication: Abdominal pain, sepsis, abdominal wound Location: R16 Comparison: None available Technique: CT images of the abdomen and pelvis were obtained from the diaphragm to the pubic symphysis after the administration of intravenous contrast contrast. Coronal reformats are provided. One or more of the following dose reduction techniques were used: Automated exposure control, adjustment of the mA and/or kV according to patient size, and/or utilization of iterative reconstruction technique. Findings: Lungs bases: Likely right basilar consolidation. Upper GI: Post surgical changes of the stomach are seen, please correlate with history Liver: Marked hepatic hypodensity is seen possibly suggestive steatosis Gallbladder: Surgically absent Pancreas: Unremarkable. Spleen: Unremarkable. Adrenal glands: Unremarkable. Kidneys: Unre markable. Bowel: No bowel obstruction. The appendix is nonvisualized. in t he lower anterior abdominal ileostomy is noted. Peritoneum: No free air Pelvis: Presacral induration and fluid as well as presacral soft tissue is noted, nonspecific Skeletal: No acute fracture.. Large bilateral lower abdominal lacerations are seen without definite evidence o f associated collection. Impression: Lar ge bilateral lower abdominal lacerations are seen without definite evide nce of associated collection. Presacral induration and fluid as well as presacral soft tissue is PAGE 1 Signed Report (CONTINUED) [facility] 1960 Age/S: 58 / F [address] [facility] Unit #: [id number] Loc: [place] [address] Phys: Krystal Adorno Acct: [id number] Dis Date: Status: ADM IN PHONE #: [phone] Exam Date: 03/10/2019208 FAX #: [phone] Reason: abdominal pain, sepsis, open abd wound EXAMS: CPT CODE: [id number] CT ABD PELVIS W/O CONT 04988 < Continued> noted, nonspecific Additional findings as detailed above at 0123 Reported and signed by: Tabitha Giordano M.D. CC: Precious Teague MD; Krystal Adorno Technologist:Lanre Arroyo RT(R)(CT) CTDI: DLP: Trnscb Date/Time: 03/10/2019 (122) [id number] Orig Print D/T: S: 03/10/2019 (208) PAGE 2 Signed Report ARTERIAL BLOOD [id number] 23:24:00* Test Item Value Reference Range Comments ARTERIAL BLOOD GAS PH (test code=PHA) 7.22 7.35-7.45 ARTERIAL BLOOD GAS PCO2 (test code=PCO2A) 9.9 mm Hg 35-45 Results called to and read back by Avinash 23: - 03/09/2019; by Faisal ARTERIAL BLOOD GAS PO2 (test code=PO2A) 73.0 mmHg 80-100 BICARBONATE TOTAL HCO3 (test code=HCO3) 3.9 mmol/L 23.0-27.0 Results called to and read back by Avinash 23:24 - 03/09/2019; by Faisal BASE EXCESS (test code=DIYA) -20.7 mmol/L -3.0-5.0 Results called to and read back by Avinash 23: - 03/09/2019; by Faisal ABG O2 SATURATION (test code=SATA) 92.3 % 90.0-98.0 ABG TYPE (test code=TYPEA) Arterial FIO2 (test code=FIO2A) 21.0 ABG SITE (test code=SITEA) Rt BRACHIAL ARTERY LACTIC [id number] 23:14:00* Test Item Value Reference Range Comments LACTIC ACID (test code=LACT) 15.5 mmol/L 0.4-1.9 Results called to [id number] by V.[email or web address] 03/09/19 2311Critical results verified and read back by Nurse? Y CBC W/AUTO [id number] 22:44:00* Test Item Value Reference Range Comments WHITE BLOOD CELL (test code=WBC) 16.3 K/mm3 4.5-12.5 RED BLOOD CELL (test code=RBC) 2.71 mill/mm3 3.7-5.2 HEMOGLOBIN (test code=HGB) 8.6 gram/dL 11.5-15.5 HEMATOCRIT (test code=HCT) 29.1 % 36.0-46.0 MEAN CELL VOLUME (test code=MCV) 107.4 fL 80-98 MEAN CELL HGB (test code=MCH) 31.7 picogram 27.0-33.0 MEAN CELL HGB CONCETRATION (test code=MCHC) 29.6 gram/dL 33.0-36.0 RED CELL DISTRIBUTION WIDTH (test code=RDW) 20.4 % 11.6-16.2 RED CELL DISTRIBUTION WIDTH SD (test code=RDW-SD) 80.0 fL 37.0-51.0 PLATELET COUNT (test code=PLT) 301 K/mm3 150-450 MEAN PLATELET VOLUME (test code=MPV) 10.9 fL 6.7-11.0 NEUTROPHIL % (test code=NT%) 87.1 % 39.0-69.0 IMMATURE GRANULOCYTE % (test code=IG%) 2.7 % 0.0-5.0 LYMPHOCYTE % (test code=LY%) 2.7 % 25.0-55.0 MONOCYTE % (test code=MO%) 7.4 % 0.0-10.0 EOSINOPHIL % (test code=EO%) 0.0 % 0.0-5.0 BASOPHIL % (test code=BA%) 0.1 % 0.0-1.0 NUCLEATED RBC % (test code=NRBC%) 2.6 % 0-0 NEUTROPHIL # (test code=NT#) 14.19 K/mm3 1.8-7.7 IMMATURE GRANULOCYTE # (test code=IG#) 0.44 x10 3/uL 0-0.03 LYMPHOCYTE # (test code=LY#) 0.44 K/mm3 1.0-5.0 MONOCYTE # (test code=MO#) 1.20 K/mm3 0-0.8 EOSINOPHIL # (test code=EO#) 0.00 K/mm3 0.0-0.5 BASOPHIL # (test code=BA#) 0.02 K/mm3 0.0-0.2 NUCLEATED RBC # (test code=NRBC#) 0.42 K/mm3 0.0-0.1 MANUAL DIFF REQUIRED (test code=MDIFF) NO, ONLY SCAN NEEDED DIFFERENTIAL [id number] 22:44:00* Test Item Value Reference Range Comments STAIN ACCEPTABILITY (test code=STN ACCEPTABLE) STAIN ACCEPTABLE HYPOCHROMIA (test code=HYPO) 2+ POIKILOCYTOSIS (test code=POIK) 3+ ANISOCYTOSIS (test code=ANISO) 1+ MACROCYTOSIS (test code=MACR) 1+ CRENATED CELLS (test code=CREN) 3+ VACUOLATED NEUTROPHILS (test code=VN) 2+ PLATELET ESTIMATE (test code=PLTEST) ADEQUATE PLATELET MORPHOLOGY (test code=PLTMORPH) SIZE VARIABLE BASIC METABOLIC [id number] 22:32:00* Test Item Value Reference Range Comments SODIUM (test code=NA) 137 mmol/L 136-145 POTASSIUM (test code=K) 3.3 mmol/L 3.5-5.1 CHLORIDE (test code=CL) 102.0 mmol/L 98-107 CARBON DIOXIDE (test code=CO2) 7.0 mmol/L 21-32 ANION GAP (test code=GAP) 31.3 10-20 GLUCOSE (test code=GLU) 128 mg/dL 74-106 BLOOD UREA NITROGEN (test code=BUN) 14 mg/dL 7-18 GLOMERULAR FILTRATION RATE (test code=GFR) 29 mL/min >=60 Estimated GFR by using Modified MDRD formula.Chronic kidney disease is defined as either kidney damageor GFR <60 mL/min/1.73 m2 for >3 months. CREATININE (test code=CREAT) 1.80 mg/dL 0.55-1.02 Note change in reference range due to change in reagent. BUN/CREATININE RATIO (test code=BUN/CREA) 7.8 10-20 CALCIUM (test code=CA) 8.6 mg/dL 8.5-10.1 HEPATIC FUNCTION [id number] 22:32:00* Test Item Value Reference Range Comments TOTAL PROTEIN (test code=PROT) 6.0 gram/dL 6.4-8.2 ALBUMIN (test code=ALB) 1.7 g/dL 3.4-5.0 GLOBULIN (test code=GLOB) 4.3 gram/dL 2.7-4.2 ALBUMIN/GLOBULIN RATIO (test code=A/G) 0.4 0.75-1.50 BILIRUBIN TOTAL (test code=BILT) 1.40 mg/dL 0.0-1.0 BILIRUBIN DIRECT (test code=BILD) 0.93 mg/dL 0.0-0.20 SGOT/AST (test code=AST) 205 IUnit/L 15-37 SGPT/ALT (test code=ALT) 66 IUnit/L 12-78 ALKALINE PHOSPHATASE TOTAL (test code=ALKP) 92 IUnit/L 45-117 Note change in reference range due to change in reagent. [id number] 22:32:00* Test Item Value Reference Range Comments TROPONIN-I (test code=TROPI) 0.054 ng/mL 0-0.045 Results called to [id number] by V.LAB.LINO 03/09/19 2232Critical results verified and read back by Nurse? Y BASIC METABOLIC [id number] 22:23:00* Test Item Value Reference Range Comments SODIUM (test code=NA) 137 mmol/L 136-145 POTASSIUM (test code=K) 3.3 mmol/L 3.5-5.1 CHLORIDE (test code=CL) 102.0 mmol/L 98-107 CARBON DIOXIDE (test code=CO2) mmol/L 21-32 ANION GAP (test code=GAP) 10-20 GLUCOSE (test code=GLU) mg/dL 74-106 BLOOD UREA NITROGEN (test code=BUN) mg/dL 7-18 GLOMERULAR FILTRATION RATE (test code=GFR) mL/min >=60 CREATININE (test code=CREAT) mg/dL 0.55-1.02 BUN/CREATININE RATIO (test code=BUN/CREA) 10-20 CALCIUM (test code=CA) mg/dL 8.5-10.1 HEPATIC FUNCTION [id number] 22:23:00* Test Item Value Reference Range Comments TOTAL PROTEIN (test code=PROT) gram/dL 6.4-8.2 ALBUMIN (test code=ALB) g/dL 3.4-5.0 GLOBULIN (test code=GLOB) gram/dL 2.7-4.2 ALBUMIN/GLOBULIN RATIO (test code=A/G) 0.75-1.50 BILIRUBIN TOTAL (test code=BILT) mg/dL 0.0-1.0 BILIRUBIN DIRECT (test code=BILD) mg/dL 0.0-0.20 SGOT/AST (test code=AST) IUnit/L 15-37 SGPT/ALT (test code=ALT) IUnit/L 12-78 ALKALINE PHOSPHATASE TOTAL (test code=ALKP) IUnit/L 45-117 [id number] 22:23:00* Test Item Value Reference Range Comments TROPONIN-I (test code=TROPI) ng/mL 0-0.045 PROTHROMBIN [id number] 22:22:00* Test Item Value Reference Range Comments PROTHROMBIN TIME PATIENT (test code=PTP) 20.5 seconds 9.0-14.0 INTERNATIONAL NORMAL RATIO (test code=INR) 1.8 0.8-1.2 The therapeutic range for oral anticoagulant therapy formost indications is an international normalized ratio (INR)of between 2.0 and 3.0. The recommended therapeutic INRrange for various clinical situations is listed below: Clinical Situation INR range Pulmonary e mbolism treatment (2.0-3.0)Venous thrombosis treatmentVenous thrombosis prophylaxis (high risk surgery)Prevention of systemic embolism from: Acute myocardial infarction Valvular heart disease Atrial fibrillation Mechanical prosthetic heart valves (2.5-3.5) IS PATIENT ON ANTICOAGULANTS? NTHROMBOPLASTIN TIME [id number] 22:22:00* Test Item Value Reference Range Comments THROMBOPLASTIN TIME PARTIAL (test code=PTT) 34.2 seconds 25.0-36.5 IS PATIENT ON ANTICOAGULANTS? N- XR CHEST 1 [id number] 22:18:00 FAX: Nikki Degroot DO [place]: B St: REG Name: OLEG UMANZOR [facility] : [birth year] Age/S: 58/F [address] [facility] Unit #: [id number] Loc: [place] [address] Phys: Nikki Degroot DO Acct: [id number] Dis Date: Status: REG ER PHONE #: [phone] Exam Date: 03/09/20192199 FAX #: [phone] Reason: Altered Mental Status EXAMS: CPT CODE: [id number] XR CHEST 1 V 68054 HISTORY: Altered Mental Status TECHNIQUE: AP chest x-ray COMPARISON: 03/02/19 FINDINGS: No airspace consolidation or pleural effusion. Normal heart size. Atherosclerotic vascular calcification of the thoracic aorta. Left Port-A-Cath. Thoracic spondylosis. IMPRESSION: No acute findings or significant interval change. Claudia ctronically Signed by Tamika Montes De Oca D.O. on 03/09/2019 at 2218 Reported and signed by: Tamika Montes De Oca D.O. CC: Yamilet Degroot DO Technologist: RT KAREN(Eduarda) Trnscrd Date/Time/By: 03/09/2019 (8977) : By: [email or web address] Orig Print D/T: S: 03/09/2019 (5610) PAGE 1 Signed Report - CT HEAD/BRAIN W/O [id number] 22:17:00 Name: OLEG STEINER [facility] : 1960 Age/S: 58 / F [address] Unit #: [id number] Loc: [place] [address] Phys: Nikki Degroot DO Acct: [id number] Dis Date: Status: REG ER PHONE #: [phone] Exam Date: 03/09/20192199 FAX #: [phone] Reason: Altered Mental Status EXAMS: CPT CODE: [id number] CT HEAD/BRAIN W/O CONT 50377 HISTORY: Altered Mental Status TECHNIQUE: Noncontrast 2.[address] of the head. Examination acquired within 24 hours of arrival. Automated exposure control for dose reduction; DLP: 737 mGy-cm. COMPARISON: None FINDINGS: No acute hemorrhage. No CT evidence of acute infarct. Mild periventricular chronic microvascular ischemic changes. Chronic pontine infarct. No intracranial mass or mass effect. Mild parenchymal atrophy. No hydrocephalus. No extra- axial fluid collection. Atherosclerotic vascular calcification of the carotid siphons. Small bilateral maxillary sinus fluid. Mastoid air cells and middle ear cavities are clear. Orbital contents are unremarkable. Calvarium and skull base are intact. IMPRESSION: No acute intracranial process. Chronic pontine infarct. Mild periventricular chronic microvascular ischemic changes. Atherosclerotic vascular disease. at 2217 Reported and signed by: Tamika Montes De Oca D.O. CC: Nikki Degroot DO Technologist:Lanre Arroyo, RT(R)(CT); ... CTDI: DLP: Trnscb Date/Time: 03/09/2019 (2217) [email or web address] Orig Print D/T: S: 03/09/2019 (2220) PAGE 1 Signed Report CBC W/AUTO [id number] 22:09:00* Test Item Value Reference Range Comments WHITE BLOOD CELL (test code=WBC) 16.3 K/mm3 4.5-12.5 RED BLOOD CELL (test code=RBC) 2.71 mill/mm3 3.7-5.2 HEMOGLOBIN (test code=HGB) 8.6 gram/dL 11.5-15.5 HEMATOCRIT (test code=HCT) 29.1 % 36.0-46.0 MEAN CELL VOLUME (test code=MCV) 107.4 fL 80-98 MEAN CELL HGB (test code=MCH) 31.7 picogram 27.0-33.0 MEAN CELL HGB CONCETRATION (test code=MCHC) 29.6 gram/dL 33.0-36.0 RED CELL DISTRIBUTION WIDTH (test code=RDW) 20.4 % 11.6-16.2 RED CELL DISTRIBUTION WIDTH SD (test code=RDW-SD) 80.0 fL 37.0-51.0 PLATELET COUNT (test code=PLT) 301 K/mm3 150-450 MEAN PLATELET VOLUME (test code=MPV) 10.9 fL 6.7-11.0 NEUTROPHIL % (test code=NT%) 87.1 % 39.0-69.0 IMMATURE GRANULOCYTE % (test code=IG%) 2.7 % 0.0-5.0 LYMPHOCYTE % (test code=LY%) 2.7 % 25.0-55.0 MONOCYTE % (test code=MO%) 7.4 % 0.0-10.0 EOSINOPHIL % (test code=EO%) 0.0 % 0.0-5.0 BASOPHIL % (test code=BA%) 0.1 % 0.0-1.0 NUCLEATED RBC % (test code=NRBC%) 2.6 % 0-0 NEUTROPHIL # (test code=NT#) 14.19 K/mm3 1.8-7.7 IMMATURE GRANULOCYTE # (test code=IG#) 0.44 x10 3/uL 0-0.03 LYMPHOCYTE # (test code=LY#) 0.44 K/mm3 1.0-5.0 MONOCYTE # (test code=MO#) 1.20 K/mm3 0-0.8 EOSINOPHIL # (test code=EO#) 0.00 K/mm3 0.0-0.5 BASOPHIL # (test code=BA#) 0.02 K/mm3 0.0-0.2 NUCLEATED RBC # (test code=NRBC#) 0.42 K/mm3 0.0-0.1 MANUAL DIFF REQUIRED (test code=MDIFF) NO, ONLY SCAN NEEDED DIFFERENTIAL [id number] 22:09:00* Test Item Value Reference Range Comments STAIN ACCEPTABILITY (test code=STN ACCEPTABLE) MORPHOLOGY COMMENT (test code=MOC) PLATELET ESTIMATE (test code=PLTEST) PLATELET MORPHOLOGY (test code=PLTMORPH) CBC W/AUTO [id number] 22:08:00* Test Item Value Reference Range Comments WHITE BLOOD CELL (test code=WBC) 16.3 K/mm3 4.5-12.5 RED BLOOD CELL (test code=RBC) 2.71 mill/mm3 3.7-5.2 HEMOGLOBIN (test code=HGB) 8.6 gram/dL 11.5-15.5 HEMATOCRIT (test code=HCT) 29.1 % 36.0-46.0 MEAN CELL VOLUME (test code=MCV) 107.4 fL 80-98 MEAN CELL HGB (test code=MCH) 31.7 picogram 27.0-33.0 MEAN CELL HGB CONCETRATION (test code=MCHC) 29.6 gram/dL 33.0-36.0 RED CELL DISTRIBUTION WIDTH (test code=RDW) 20.4 % 11.6-16.2 RED CELL DISTRIBUTION WIDTH SD (test code=RDW-SD) 80.0 fL 37.0-51.0 PLATELET COUNT (test code=PLT) 301 K/mm3 150-450 MEAN PLATELET VOLUME (test code=MPV) 10.9 fL 6.7-11.0 NEUTROPHIL % (test code=NT%) 87.1 % 39.0-69.0 IMMATURE GRANULOCYTE % (test code=IG%) 2.7 % 0.0-5.0 LYMPHOCYTE % (test code=LY%) 2.7 % 25.0-55.0 MONOCYTE % (test code=MO%) 7.4 % 0.0-10.0 EOSINOPHIL % (test code=EO%) 0.0 % 0.0-5.0 BASOPHIL % (test code=BA%) 0.1 % 0.0-1.0 NUCLEATED RBC % (test code=NRBC%) 2.6 % 0-0 NEUTROPHIL # (test code=NT#) 14.19 K/mm3 1.8-7.7 IMMATURE GRANULOCYTE # (test code=IG#) 0.44 x10 3/uL 0-0.03 LYMPHOCYTE # (test code=LY#) 0.44 K/mm3 1.0-5.0 MONOCYTE # (test code=MO#) 1.20 K/mm3 0-0.8 EOSINOPHIL # (test code=EO#) 0.00 K/mm3 0.0-0.5 BASOPHIL # (test code=BA#) 0.02 K/mm3 0.0-0.2 NUCLEATED RBC # (test code=NRBC#) 0.42 K/mm3 0.0-0.1 MANUAL DIFF REQUIRED (test code=MDIFF) NO, ONLY SCAN NEEDED DIFFERENTIAL [id number] 22:08:00* Test Item Value Reference Range Comments STAIN ACCEPTABILITY (test code=STN ACCEPTABLE) CABOT RINGS (test code=CAB) MORPHOLOGY COMMENT (test code=MOC) PLATELET ESTIMATE (test code=PLTEST) PLATELET MORPHOLOGY (test code=PLTMORPH) CBC W/AUTO [id number] 22:08:00* Test Item Value Reference Range Comments WHITE BLOOD CELL (test code=WBC) 16.3 K/mm3 4.5-12.5 RED BLOOD CELL (test code=RBC) 2.71 mill/mm3 3.7-5.2 HEMOGLOBIN (test code=HGB) 8.6 gram/dL 11.5-15.5 HEMATOCRIT (test code=HCT) 29.1 % 36.0-46.0 MEAN CELL VOLUME (test code=MCV) 107.4 fL 80-98 MEAN CELL HGB (test code=MCH) 31.7 picogram 27.0-33.0 MEAN CELL HGB CONCETRATION (test code=MCHC) 29.6 gram/dL 33.0-36.0 RED CELL DISTRIBUTION WIDTH (test code=RDW) 20.4 % 11.6-16.2 RED CELL DISTRIBUTION WIDTH SD (test code=RDW-SD) 80.0 fL 37.0-51.0 PLATELET COUNT (test code=PLT) 301 K/mm3 150-450 MEAN PLATELET VOLUME (test code=MPV) 10.9 fL 6.7-11.0 NEUTROPHIL % (test code=NT%) 87.1 % 39.0-69.0 IMMATURE GRANULOCYTE % (test code=IG%) 2.7 % 0.0-5.0 LYMPHOCYTE % (test code=LY%) 2.7 % 25.0-55.0 MONOCYTE % (test code=MO%) 7.4 % 0.0-10.0 EOSINOPHIL % (test code=EO%) 0.0 % 0.0-5.0 BASOPHIL % (test code=BA%) 0.1 % 0.0-1.0 NUCLEATED RBC % (test code=NRBC%) 2.6 % 0-0 NEUTROPHIL # (test code=NT#) 14.19 K/mm3 1.8-7.7 IMMATURE GRANULOCYTE # (test code=IG#) 0.44 x10 3/uL 0-0.03 LYMPHOCYTE # (test code=LY#) 0.44 K/mm3 1.0-5.0 MONOCYTE # (test code=MO#) 1.20 K/mm3 0-0.8 EOSINOPHIL # (test code=EO#) 0.00 K/mm3 0.0-0.5 BASOPHIL # (test code=BA#) 0.02 K/mm3 0.0-0.2 NUCLEATED RBC # (test code=NRBC#) 0.42 K/mm3 0.0-0.1 MANUAL DIFF REQUIRED (test code=MDIFF) NO, ONLY SCAN NEEDED DIFFERENTIAL [id number] 22:08:00* Test Item Value Reference Range Comments STAIN ACCEPTABILITY (test code=STN ACCEPTABLE) MORPHOLOGY COMMENT (test code=MOC) PLATELET ESTIMATE (test code=PLTEST) PLATELET MORPHOLOGY (test code=PLTMORPH) CBC W/AUTO [id number] 22:08:00* Test Item Value Reference Range Comments WHITE BLOOD CELL (test code=WBC) 16.3 K/mm3 4.5-12.5 RED BLOOD CELL (test code=RBC) 2.71 mill/mm3 3.7-5.2 HEMOGLOBIN (test code=HGB) 8.6 gram/dL 11.5-15.5 HEMATOCRIT (test code=HCT) 29.1 % 36.0-46.0 MEAN CELL VOLUME (test code=MCV) 107.4 fL 80-98 MEAN CELL HGB (test code=MCH) 31.7 picogram 27.0-33.0 MEAN CELL HGB CONCETRATION (test code=MCHC) 29.6 gram/dL 33.0-36.0 RED CELL DISTRIBUTION WIDTH (test code=RDW) 20.4 % 11.6-16.2 RED CELL DISTRIBUTION WIDTH SD (test code=RDW-SD) 80.0 fL 37.0-51.0 PLATELET COUNT (test code=PLT) 301 K/mm3 150-450 MEAN PLATELET VOLUME (test code=MPV) 10.9 fL 6.7-11.0 NEUTROPHIL % (test code=NT%) 87.1 % 39.0-69.0 IMMATURE GRANULOCYTE % (test code=IG%) 2.7 % 0.0-5.0 LYMPHOCYTE % (test code=LY%) 2.7 % 25.0-55.0 MONOCYTE % (test code=MO%) 7.4 % 0.0-10.0 EOSINOPHIL % (test code=EO%) 0.0 % 0.0-5.0 BASOPHIL % (test code=BA%) 0.1 % 0.0-1.0 NUCLEATED RBC % (test code=NRBC%) 2.6 % 0-0 NEUTROPHIL # (test code=NT#) 14.19 K/mm3 1.8-7.7 IMMATURE GRANULOCYTE # (test code=IG#) 0.44 x10 3/uL 0-0.03 LYMPHOCYTE # (test code=LY#) 0.44 K/mm3 1.0-5.0 MONOCYTE # (test code=MO#) 1.20 K/mm3 0-0.8 EOSINOPHIL # (test code=EO#) 0.00 K/mm3 0.0-0.5 BASOPHIL # (test code=BA#) 0.02 K/mm3 0.0-0.2 NUCLEATED RBC # (test code=NRBC#) 0.42 K/mm3 0.0-0.1 MANUAL DIFF REQUIRED (test code=MDIFF) NO, ONLY SCAN NEEDED DIFFERENTIAL [id number] 22:08:00* Test Item Value Reference Range Comments STAIN ACCEPTABILITY (test code=STN ACCEPTABLE) CABOT RINGS (test code=CAB) MORPHOLOGY COMMENT (test code=MOC) PLATELET ESTIMATE (test code=PLTEST) PLATELET MORPHOLOGY (test code=PLTMORPH) [id number] 21:43:00* Test Item Value Reference Range Comments GLUBED (test code=GLUBED) 102 mg/dL 74-106 Performed by certified traffic control operator at [facility] PROTHROMBIN [id number] 08:05:00* Test Item Value Reference Range Comments PROTHROMBIN TIME PATIENT (test code=PTP) 18.8 seconds 9.0-14.0 INTERNATIONAL NORMAL RATIO (test code=INR) 1.6 0.8-1.2 The therapeutic range for oral anticoagulant therapy formost indications is an international normalized ratio (INR)of between 2.0 and 3.0. The recommended therapeutic INRrange for various clinical situations is listed below: Clinical Situation INR range Pulmonary e mbolism treatment (2.0-3.0)Venous thrombosis treatmentVenous thrombosis prophylaxis (high risk surgery)Prevention of systemic embolism from: Acute myocardial infarction Valvular heart disease Atrial fibrillation Mechanical prosthetic heart valves (2.5-3.5) IS PATIENT ON ANTICOAGULANTS? YLIST ANTICOAGULANTS COUMADINPROTHROMBIN TIME 2019-03-04 10:49:00* Test Item Value Reference Range Comments PROTHROMBIN TIME PATIENT (test code=PTP) 24.9 seconds 9.0-14.0 INTERNATIONAL NORMAL RATIO (test code=INR) 2.1 0.8-1.2 The therapeutic range for oral anticoagulant therapy formost indications is an international normalized ratio (INR)of between 2.0 and 3.0. The recommended therapeutic INRrange for various clinical situations is listed below: Clinical Situation INR range Pulmonary e mbolism treatment (2.0-3.0)Venous thrombosis treatmentVenous thrombosis prophylaxis (high risk surgery)Prevention of systemic embolism from: Acute myocardial infarction Valvular heart disease Atrial fibrillation Mechanical prosthetic heart valves (2.5-3.5) IS PATIENT ON ANTICOAGULANTS? YLIST ANTICOAGULANTS COUMADINHGB HCT 2019-03-03 10:59:00* Test Item Value Reference Range Comments HEMOGLOBIN (test code=HGB) 8.3 gram/dL 11.5-15.5 HEMATOCRIT (test code=HCT) 25.3 % 36.0-46.0 PROTHROMBIN [id number] 10:52:00* Test Item Value Reference Range Comments PROTHROMBIN TIME PATIENT (test code=PTP) 85.8 seconds 9.0-14.0 INTERNATIONAL NORMAL RATIO (test code=INR) 7.3 0.8-1.2 RESULT VERIFIED BY REPEAT ANALYSISCritical results verified and read back by Nurse? YThe therapeutic range for oral anticoagulant therapy formost indications is an international normalized ratio (INR)of between 2.0 and 3.0. The recommended therapeutic INRrange for various clinical situations is listed below: Clinical Situation INR range Pulmonary embolism treatment (2.0-3.0)Venous thrombosis treatmentVenous thrombosis prophylaxis (high risk surgery)Prevention of systemic embolism from: Acute myocardial infarction Valvular heart disease Atrial fibrillation Mechanical prosthetic heart valves (2.5-3.5) IS PATIENT ON ANTICOAGULANTS? NPROTHROMBIN [id number] 21:28:00* Test Item Value Reference Range Comments PROTHROMBIN TIME PATIENT (test code=PTP) 141.7 seconds 9.0-14.0 RESULT VERIFIED BY REPEAT ANALYSIS RESULTS CALLED TO [id number] BY [employer].KP1 03/02/192126 INTERNATIONAL NORMAL RATIO (test code=INR) 12.0 0.8-1.2 Results called to [id number] by [employer] [facility] 03/02/19 2126Critical results verified and read back by Nurse? YThe therapeutic range for oral anticoagulant therapy formost indications is an international normalized ratio (INR)of between 2.0 and 3.0. The recommended therapeutic INRrange for various clinical situations is listed below: Clinical Situatio n INR range Pulmonary embolism treatment (2.0-3.0)Venous thrombosis treatmentVenous thrombosis prophylaxis (high risk surgery)Prevention of systemic embolism from: Acute myocardial infarction Valvular heart disease Atrial fibrillation Mechanical prosthetic heart valves (2.5-3.5) IS PATIENT ON ANTICOAGULANTS? NTHROMBOPLASTIN TIME [id number] 21:28:00* Test Item Value Reference Range Comments THROMBOPLASTIN TIME PARTIAL (test code=PTT) 75.0 seconds 25.0-36.5 IS PATIENT ON ANTICOAGULANTS? NPROTHROMBIN [id number] 21:27:00* Test Item Value Reference Range Comments PROTHROMBIN TIME PATIENT (test code=PTP) 141.7 seconds 9.0-14.0 RESULTS CALLED TO [id number] BY [employer] 03/02/192126 INTERNATIONAL NORMAL RATIO (test code=INR) 12.0 0.8-1.2 Results called to [id number] by [employer] [facility] 03/02/19 2126Critical results verified and read back by Nurse? YThe therapeutic range for oral anticoagulant therapy formost indications is an international normalized ratio (INR)of between 2.0 and 3.0. The recommended therapeutic INRrange for various clinical situations is listed below: Clinical Situatio n INR range Pulmonary embolism treatment (2.0-3.0)Venous thrombosis treatmentVenous thrombosis prophylaxis (high risk surgery)Prevention of systemic embolism from: Acute myocardial infarction Valvular heart disease Atrial fibrillation Mechanical prosthetic heart valves (2.5-3.5) IS PATIENT ON ANTICOAGULANTS? NTHROMBOPLASTIN TIME [id number] 21:27:00* Test Item Value Reference Range Comments THROMBOPLASTIN TIME PARTIAL (test code=PTT) 75.0 seconds 25.0-36.5 IS PATIENT ON ANTICOAGULANTS? NBASIC METABOLIC [id number] 21:17:00* Test Item Value Reference Range Comments SODIUM (test code=NA) 137 mmol/L 136-145 POTASSIUM (test code=K) 3.5 mmol/L 3.5-5.1 CHLORIDE (test code=CL) 104.0 mmol/L 98-107 CARBON DIOXIDE (test code=CO2) 23.0 mmol/L 21-32 ANION GAP (test code=GAP) 13.5 10-20 GLUCOSE (test code=GLU) 80 mg/dL 74-106 BLOOD UREA NITROGEN (test code=BUN) 10 mg/dL 7-18 GLOMERULAR FILTRATION RATE (test code=GFR) > 60 mL/min >=60 Estimated GFR by using Modified MDRD formula.Chronic kidney disease is defined as either kidney damageor GFR <60 mL/min/1.73 m2 for >3 months. CREATININE (test code=CREAT) 0.60 mg/dL 0.55-1.02 Note change in reference range due to change in reagent. BUN/CREATININE RATIO (test code=BUN/CREA) 16.7 10-20 CALCIUM (test code=CA) 8.9 mg/dL 8.5-10.1 BILIRUBIN [id number] 21:17:00* Test Item Value Reference Range Comments BILIRUBIN TOTAL (test code=BILT) 0.80 mg/dL 0.0-1.0 [id number] 21:17:00* Test Item Value Reference Range Comments MAGNESIUM (test code=MAG) 1.6 mg/dL 1.8-2.4 [id number] 21:17:00* Test Item Value Reference Range Comments TROPONIN-I (test code=TROPI) <0.015 ng/mL 0-0.045 BASIC METABOLIC [id number] 21:04:00* Test Item Value Reference Range Comments SODIUM (test code=NA) 137 mmol/L 136-145 POTASSIUM (test code=K) 3.5 mmol/L 3.5-5.1 CHLORIDE (test code=CL) 104.0 mmol/L 98-107 CARBON DIOXIDE (test code=CO2) mmol/L 21-32 ANION GAP (test code=GAP) 10-20 GLUCOSE (test code=GLU) mg/dL 74-106 BLOOD UREA NITROGEN (test code=BUN) mg/dL 7-18 GLOMERULAR FILTRATION RATE (test code=GFR) mL/min >=60 CREATININE (test code=CREAT) mg/dL 0.55-1.02 BUN/CREATININE RATIO (test code=BUN/CREA) 10-20 CALCIUM (test code=CA) mg/dL 8.5-10.1 BILIRUBIN [id number] 21:04:00* Test Item Value Reference Range Comments BILIRUBIN TOTAL (test code=BILT) mg/dL 0.0-1.0 [id number] 21:04:00* Test Item Value Reference Range Comments MAGNESIUM (test code=MAG) mg/dL 1.8-2.4 [id number] 21:04:00* Test Item Value Reference Range Comments TROPONIN-I (test code=TROPI) ng/mL 0-0.045 URINALYSIS [id number] 20:59:00* Test Item Value Reference Range Comments UA COLOR (test code=COLU) Dark-Yellow YELLOW UA APPEARANCE (test code=APPU) TURBID CLEAR UA GLUCOSE DIPSTICK (test code=DGLUU) NEGATIVE mg/dL NEGATIVE UA BILIRUBIN DIPSTICK (test code=BILU) 1.0 (1+) mg/dL NEGATIVE UA KETONE DIPSTICK (test code=KETU) NEGATIVE mg/dL NEGATIVE UA SPECIFIC GRAVITY (test code=SGU) 1.022 1.001-1.035 UA BLOOD DIPSTICK (test code=JORGE) 0.5 mg/dL (2+) mg/dL NEGATIVE UA PH DIPSTICK (test code=MAGED) 6.0 5.0-8.0 UA PROTEIN DIPSTICK (test code=PROU) 100 (2+) mg/dL NEGATIVE UA UROBILINIOGEN DIPSTICK (test code=URO) 6.0 (2+) mg/dL NEGATIVE UA NITRITE DIPSTICK (test code=BHARATH) NEGATIVE NEGATIVE UA LEUKOCYTE ESTERASE W REFLEX (test code=LEUUR) 500 Ana/uL (3+) Ana/uL NEGATIVE UA WBC (test code=WBCU) >200 per HPF 0-5 UA RBC (test code=RBCU) 21-50 #/HPF 0-5 UA WBC CLUMPS (test code=WBCUCL) >10 /HPF NONE UA EPITHELIAL CELLS (test code=EPIU) FEW per HPF FEW UA BACTERIA (test code=BACU) MANY #/HPF NONE UA CALCIUM OXALATE CRYSTALS (test code=CAOXU) FEW #/HPF NONE UA MUCUS (test code=MUCU) MODERATE #/LPF FEW Urine Source? Clean CatchCBC W/O [id number] 20:57:00* Test Item Value Reference Range Comments WHITE BLOOD CELL (test code=WBC) 9.9 K/mm3 4.5-12.5 RED BLOOD CELL (test code=RBC) 3.29 mill/mm3 3.7-5.2 HEMOGLOBIN (test code=HGB) 10.2 gram/dL 11.5-15.5 HEMATOCRIT (test code=HCT) 32.3 % 36.0-46.0 MEAN CELL VOLUME (test code=MCV) 98.2 fL 80-98 MEAN CELL HGB (test code=MCH) 31.0 picogram 27.0-33.0 MEAN CELL HGB CONCETRATION (test code=MCHC) 31.6 gram/dL 33.0-36.0 RED CELL DISTRIBUTION WIDTH (test code=RDW) 19.9 % 11.6-16.2 PLATELET COUNT (test code=PLT) 338 K/mm3 150-450 MEAN PLATELET VOLUME (test code=MPV) 10.1 fL 6.7-11.0 URINALYSIS [id number] 20:44:00* Test Item Value Reference Range Comments UA COLOR (test code=COLU) Dark-Yellow YELLOW UA APPEARANCE (test code=APPU) TURBID CLEAR UA GLUCOSE DIPSTICK (test code=DGLUU) NEGATIVE mg/dL NEGATIVE UA BILIRUBIN DIPSTICK (test code=BILU) 1.0 (1+) mg/dL NEGATIVE UA KETONE DIPSTICK (test code=KETU) NEGATIVE mg/dL NEGATIVE UA SPECIFIC GRAVITY (test code=SGU) 1.022 1.001-1.035 UA BLOOD DIPSTICK (test code=JORGE) 0.5 mg/dL (2+) mg/dL NEGATIVE UA PH DIPSTICK (test code=MAGED) 6.0 5.0-8.0 UA PROTEIN DIPSTICK (test code=PROU) 100 (2+) mg/dL NEGATIVE UA UROBILINIOGEN DIPSTICK (test code=URO) 6.0 (2+) mg/dL NEGATIVE UA NITRITE DIPSTICK (test code=BHARATH) NEGATIVE NEGATIVE UA LEUKOCYTE ESTERASE W REFLEX (test code=LEUUR) 500 Ana/uL (3+) Ana/uL NEGATIVE UA WBC (test code=WBCU) per HPF 0-5 UA RBC (test code=RBCU) per HPF 0-5 UA EPITHELIAL CELLS (test code=EPIU) per HPF Few UA BACTERIA (test code=BACU) per HPF NONE Urine Source? Clean Catch- XR CHEST 1 [id number] 20:03:00 FAX: Kiel Mathew [phone] [place]: St: REG Name: OLEG UMANZOR [facility] : [birth year] 57 Age/S: 58/F [address] [facility] Unit #: [id number] Loc: [place] [address] Phys: Kiel Zelaya MD Acct: [id number] Dis Date: Status: REG ER PHONE #: [phone] Exam Date: 03/02/20191944 FAX #: [phone] Reason: WEAKNESS EXAMS: CPT CODE: [id number] XR CHEST 1 V [id number] REASON FOR EXAM: WEAKNESS Exam Order Date: 03/02/2019 7:15 PM Ordering MMeaghan: Trev Zelaya MD PROCEDURE: - XR CHEST 1 V BAUDILIO RISON: None FINDINGS: Left subclavian port-a-cath terminates in the cavoatrial junction. IVC filter is present. There has been prior cholecystectomy. The lungs are clear. There is no pleu ral effusion or pneumothorax. Pulmonary vascularity is within normal limit s. Cardiomediastinal silhouette is normal in size for technique. T he mediastinal contours are within normal limits. Degenerati ve changes are seen throughout the spine. The visualized upper abd omen is within normal limits. IMPRESSION: No acute cardi opulmonary process. Electronically Signed by Ted Sanchez MD on 03/02 at 2002 Reported and signed by: Ted Sanchez MD CC: Kiel Zelaya MD Technologist: KRYSTIAN DUCKWORTH RT(R) Trnscrd Date/Time/By: 0 03/02/2019 (2002) : By: [email or web address] Orig Print D/T: S: 03/02/2019 (2005) PAGE 1 Signed Report [id number] 11:41:00* Test Item Value Reference Range Comments GLUBED (test code=GLUBED) 100 MG/DL 70-110 Performed by certified traffic control operator at [facility] BASIC METABOLIC [id number] 08:34:00* Test Item Value Reference Range Comments SODIUM (test code=NA) 144 mEq/L 134-147 POTASSIUM (test code=K) 3.2 mEq/L 3.4-5.0 CHLORIDE (test code=CL) 114 mEq/L 100-108 CARBON DIOXIDE (test code=CO2) 22 mEq/L 21-33 ANION GAP (test code=GAP) 11 0-20 GLUCOSE (test code=GLU) 94 mg/dL 70-110 BLOOD UREA NITROGEN (test code=BUN) 8 mg/dL 7-18 GLOMERULAR FILTRATION RATE (test code=GFR) 162.8 80-90 Units of measure=ml/min/1.73 m2 CREATININE (test code=CREAT) 0.4 mg/dL 0.6-1.3 CALCIUM (test code=CA) 7.6 mg/dL 8.0-10.5 [id number] 08:34:00* Test Item Value Reference Range Comments PHOSPHOROUS (test code=PHOS) 2.7 mg/dL 2.5-4.9 [id number] 08:34:00* Test Item Value Reference Range Comments MAGNESIUM (test code=MAG) 1.40 mg/dL 1.8-2.4 CBC W/AUTO [id number] 08:12:00* Test Item Value Reference Range Comments WHITE BLOOD CELL (test code=WBC) 12.16 x10 3/uL 4.5-11.0 RED BLOOD CELL (test code=RBC) 2.41 x10 6/uL 3.54-5.02 HEMOGLOBIN (test code=HGB) 7.2 g/dL 11.0-15.0 HEMATOCRIT (test code=HCT) 23.0 % 33.0-45.0 MEAN CELL VOLUME (test code=MCV) 95.4 fL 81.0-99.0 MEAN CELL HGB (test code=MCH) 29.9 pg 27.0-33.0 MEAN CELL HGB CONCETRATION (test code=MCHC) 31.3 g/dL 33.0-37.0 RED CELL DISTRIBUTION WIDTH CV (test code=RDW) 19.0 % 11.5-14.5 RED CELL DISTRIBUTION WIDTH SD (test code=RDW-SD) 62.3 fL 37.0-54.0 PLATELET COUNT (test code=PLT) 243 x10 3/uL 150-400 MEAN PLATELET VOLUME (test code=MPV) 11.4 fL 7.0-9.0 NEUTROPHIL % (test code=NT%) 83.0 % 56.0-77.0 IMMATURE GRANULOCYTE % (test code=IG%) 5.1 % 0.0-2.0 LYMPHOCYTE % (test code=LY%) 4.4 % 14.0-32.0 MONOCYTE % (test code=MO%) 7.0 % 4.8-9.0 EOSINOPHIL % (test code=EO%) 0.3 % 0.3-3.7 BASOPHIL % (test code=BA%) 0.2 % 0.0-2.0 NUCLEATED RBC % (test code=NRBC%) 0.0 % 0-0 NEUTROPHIL # (test code=NT#) 10.09 x10 3/uL 2.0-7.6 IMMATURE GRANULOCYTE # (test code=IG#) 0.62 x10 3/uL 0.00-0.03 LYMPHOCYTE # (test code=LY#) 0.54 x10 3/uL 1.0-3.8 MONOCYTE # (test code=MO#) 0.85 x10 3/uL 0.1-0.8 EOSINOPHIL # (test code=EO#) 0.04 x10 3/uL 0.0-0.2 BASOPHIL # (test code=BA#) 0.02 x10 3/uL 0.0-0.2 NUCLEATED RBC # (test code=NRBC#) 0.00 x10 3/uL 0.0-0.1 MANUAL DIFF REQUIRED (test code=MDIFF) NO SLIDE REVIEWED, CONSISTENT WITH AUTO DIFF. [id number] 07:52:00* Test Item Value Reference Range Comments GLUBED (test code=GLUBED) 94 MG/DL 70-110 Performed by certified traffic control operator at [facility] CBC W/AUTO [id number] 07:41:00* Test Item Value Reference Range Comments WHITE BLOOD CELL (test code=WBC) 12.16 x10 3/uL 4.5-11.0 RED BLOOD CELL (test code=RBC) 2.41 x10 6/uL 3.54-5.02 HEMOGLOBIN (test code=HGB) 7.2 g/dL 11.0-15.0 HEMATOCRIT (test code=HCT) 23.0 % 33.0-45.0 MEAN CELL VOLUME (test code=MCV) 95.4 fL 81.0-99.0 MEAN CELL HGB (test code=MCH) 29.9 pg 27.0-33.0 MEAN CELL HGB CONCETRATION (test code=MCHC) 31.3 g/dL 33.0-37.0 RED CELL DISTRIBUTION WIDTH CV (test code=RDW) 19.0 % 11.5-14.5 RED CELL DISTRIBUTION WIDTH SD (test code=RDW-SD) 62.3 fL 37.0-54.0 PLATELET COUNT (test code=PLT) 243 x10 3/uL 150-400 MEAN PLATELET VOLUME (test code=MPV) 11.4 fL 7.0-9.0 LYMPHOCYTE % (test code=LY%) % 14.0-32.0 MANUAL DIFF REQUIRED (test code=MDIFF) [id number] 00:26:00* Test Item Value Reference Range Comments GLUBED (test code=GLUBED) 125 MG/DL 70-110 Performed by certified traffic control operator at [facility] [id number] 18:57:00* Test Item Value Reference Range Comments GLUBED (test code=GLUBED) 96 MG/DL 70-110 Performed by certified traffic control operator at [facility] [id number] 11:26:00* Test Item Value Reference Range Comments GLUBED (test code=GLUBED) 113 MG/DL 70-110 Performed by certified traffic control operator at [facility] BASIC METABOLIC [id number] 10:30:00* Test Item Value Reference Range Comments SODIUM (test code=NA) 144 mEq/L 134-147 POTASSIUM (test code=K) 3.5 mEq/L 3.4-5.0 CHLORIDE (test code=CL) 115 mEq/L 100-108 CARBON DIOXIDE (test code=CO2) 23 mEq/L 21-33 ANION GAP (test code=GAP) 10 0-20 GLUCOSE (test code=GLU) 99 mg/dL 70-110 BLOOD UREA NITROGEN (test code=BUN) 11 mg/dL 7-18 GLOMERULAR FILTRATION RATE (test code=GFR) 162.8 80-90 Units of measure=ml/min/1.73 m2 CREATININE (test code=CREAT) 0.4 mg/dL 0.6-1.3 CALCIUM (test code=CA) 7.9 mg/dL 8.0-10.5 COMMENTS: PLEASE USE BLOOD IN LAB. THANKS![id number] 10:30:00* Test Item Value Reference Range Comments PHOSPHOROUS (test code=PHOS) 2.7 mg/dL 2.5-4.9 COMMENTS: PLEASE USE BLOOD IN LAB. THANKS![id number] 10:30:00* Test Item Value Reference Range Comments MAGNESIUM (test code=MAG) 1.40 mg/dL 1.8-2.4 COMMENTS: PLEASE USE BLOOD IN LAB. THANKS![id number] 08:12:00* Test Item Value Reference Range Comments GLUBED (test code=GLUBED) 97 MG/DL 70-110 Performed by certified traffic control operator at [facility] [id number] 00:57:00* Test Item Value Reference Range Comments GLUBED (test code=GLUBED) 97 MG/DL 70-110 Performed by certified traffic control operator at [facility] [id number] 18:05:00* Test Item Value Reference Range Comments GLUBED (test code=GLUBED) 88 MG/DL 70-110 Performed by certified traffic control operator at [facility] [id number] 12:17:00* Test Item Value Reference Range Comments GLUBED (test code=GLUBED) 96 MG/DL 70-110 Performed by certified traffic control operator at [facility] [id number] 07:33:00* Test Item Value Reference Range Comments GLUBED (test code=GLUBED) 96 MG/DL 70-110 Performed by certified traffic control operator at [facility] [id number] 07:33:00* Test Item Value Reference Range Comments GLUBED (test code=GLUBED) 99 MG/DL 70-110 Performed by certified traffic control operator at [facility] BASIC METABOLIC [id number] 05:45:00* Test Item Value Reference Range Comments SODIUM (test code=NA) 145 mEq/L 134-147 POTASSIUM (test code=K) 3.0 mEq/L 3.4-5.0 CHLORIDE (test code=CL) 114 mEq/L 100-108 CARBON DIOXIDE (test code=CO2) 23 mEq/L 21-33 ANION GAP (test code=GAP) 11 0-20 GLUCOSE (test code=GLU) 101 mg/dL 70-110 BLOOD UREA NITROGEN (test code=BUN) 14 mg/dL 7-18 GLOMERULAR FILTRATION RATE (test code=GFR) 162.8 80-90 Units of measure=ml/min/1.73 m2 CREATININE (test code=CREAT) 0.4 mg/dL 0.6-1.3 CALCIUM (test code=CA) 8.0 mg/dL 8.0-10.5 [id number] 05:45:00* Test Item Value Reference Range Comments PHOSPHOROUS (test code=PHOS) 2.9 mg/dL 2.5-4.9 [id number] 05:45:00* Test Item Value Reference Range Comments MAGNESIUM (test code=MAG) 1.50 mg/dL 1.8-2.4 [id number] 05:45:00* Test Item Value Reference Range Comments PREALBUMIN (test code=PREALB) 7.0 mg/dL 16.0-40.0 [id number] 01:07:00* Test Item Value Reference Range Comments GLUBED (test code=GLUBED) 111 MG/DL 70-110 Performed by certified traffic control operator at [facility] [id number] 17:51:00* Test Item Value Reference Range Comments GLUBED (test code=GLUBED) 96 MG/DL 70-110 Performed by certified traffic control operator at [facility] [id number] 07:44:00* Test Item Value Reference Range Comments GLUBED (test code=GLUBED) 103 MG/DL 70-110 Performed by certified traffic control operator at [facility] BASIC METABOLIC [id number] 06:59:00* Test Item Value Reference Range Comments SODIUM (test code=NA) 143 mEq/L 134-147 POTASSIUM (test code=K) 3.0 mEq/L 3.4-5.0 CHLORIDE (test code=CL) 109 mEq/L 100-108 CARBON DIOXIDE (test code=CO2) 25 mEq/L 21-33 ANION GAP (test code=GAP) 12 0-20 GLUCOSE (test code=GLU) 104 mg/dL 70-110 BLOOD UREA NITROGEN (test code=BUN) 19 mg/dL 7-18 GLOMERULAR FILTRATION RATE (test code=GFR) 162.8 80-90 Units of measure=ml/min/1.73 m2 CREATININE (test code=CREAT) 0.4 mg/dL 0.6-1.3 CALCIUM (test code=CA) 8.1 mg/dL 8.0-10.5 [id number] 06:59:00* Test Item Value Reference Range Comments PHOSPHOROUS (test code=PHOS) 2.8 mg/dL 2.5-4.9 [id number] 06:59:00* Test Item Value Reference Range Comments MAGNESIUM (test code=MAG) 1.60 mg/dL 1.8-2.4 TOTAL IRON BINDING [id number] 06:59:00* Test Item Value Reference Range Comments SERUM IRON (test code=IRON) 24 mcg/dL 35-150 TOTAL IRON BINDING CAPACITY (test code=TIBC) 153 mcg/dL 260-445 UIBC (test code=UIBC) 129 mcg/dL IRON SATURATION (test code=FESAT) 15.7 % 14-34 [id number] 06:59:00* Test Item Value Reference Range Comments FERRITIN (test code=MINO) 1040.1 ng/mL 11.0-306.8 CBC W/AUTO [id number] 06:57:00* Test Item Value Reference Range Comments WHITE BLOOD CELL (test code=WBC) 7.97 x10 3/uL 4.5-11.0 RED BLOOD CELL (test code=RBC) 2.57 x10 6/uL 3.54-5.02 HEMOGLOBIN (test code=HGB) 7.6 g/dL 11.0-15.0 HEMATOCRIT (test code=HCT) 24.1 % 33.0-45.0 MEAN CELL VOLUME (test code=MCV) 93.8 fL 81.0-99.0 MEAN CELL HGB (test code=MCH) 29.6 pg 27.0-33.0 MEAN CELL HGB CONCETRATION (test code=MCHC) 31.5 g/dL 33.0-37.0 RED CELL DISTRIBUTION WIDTH CV (test code=RDW) 18.0 % 11.5-14.5 RED CELL DISTRIBUTION WIDTH SD (test code=RDW-SD) 55.8 fL 37.0-54.0 PLATELET COUNT (test code=PLT) 196 x10 3/uL 150-400 MEAN PLATELET VOLUME (test code=MPV) 11.6 fL 7.0-9.0 NEUTROPHIL % (test code=NT%) 85.0 % 56.0-77.0 IMMATURE GRANULOCYTE % (test code=IG%) 2.3 % 0.0-2.0 LYMPHOCYTE % (test code=LY%) 4.5 % 14.0-32.0 MONOCYTE % (test code=MO%) 7.8 % 4.8-9.0 EOSINOPHIL % (test code=EO%) 0.3 % 0.3-3.7 BASOPHIL % (test code=BA%) 0.1 % 0.0-2.0 NUCLEATED RBC % (test code=NRBC%) 0.0 % 0-0 NEUTROPHIL # (test code=NT#) 6.78 x10 3/uL 2.0-7.6 IMMATURE GRANULOCYTE # (test code=IG#) 0.18 x10 3/uL 0.00-0.03 LYMPHOCYTE # (test code=LY#) 0.36 x10 3/uL 1.0-3.8 MONOCYTE # (test code=MO#) 0.62 x10 3/uL 0.1-0.8 EOSINOPHIL # (test code=EO#) 0.02 x10 3/uL 0.0-0.2 BASOPHIL # (test code=BA#) 0.01 x10 3/uL 0.0-0.2 NUCLEATED RBC # (test code=NRBC#) 0.00 x10 3/uL 0.0-0.1 MANUAL DIFF REQUIRED (test code=MDIFF) NO [id number] 06:30:00* Test Item Value Reference Range Comments GLUBED (test code=GLUBED) 107 MG/DL 70-110 Performed by certified traffic control operator at [facility] [id number] 00:52:00* Test Item Value Reference Range Comments GLUBED (test code=GLUBED) 99 MG/DL 70-110 Performed by certified traffic control operator at [facility] [id number] 18:13:00* Test Item Value Reference Range Comments GLUBED (test code=GLUBED) 86 MG/DL 70-110 Performed by certified traffic control operator at [facility] [id number] 12:00:00* Test Item Value Reference Range Comments GLUBED (test code=GLUBED) 89 MG/DL 70-110 Performed by certified traffic control operator at [facility] BASIC METABOLIC [id number] 06:12:00* Test Item Value Reference Range Comments SODIUM (test code=NA) 141 mEq/L 134-147 POTASSIUM (test code=K) 2.6 mEq/L 3.4-5.0 CHLORIDE (test code=CL) 106 mEq/L 100-108 CARBON DIOXIDE (test code=CO2) 28 mEq/L 21-33 ANION GAP (test code=GAP) 10 0-20 GLUCOSE (test code=GLU) 98 mg/dL 70-110 BLOOD UREA NITROGEN (test code=BUN) 25 mg/dL 7-18 GLOMERULAR FILTRATION RATE (test code=GFR) 125.9 80-90 Units of measure=ml/min/1.73 m2 CREATININE (test code=CREAT) 0.5 mg/dL 0.6-1.3 CALCIUM (test code=CA) 8.1 mg/dL 8.0-10.5 [id number] 06:12:00* Test Item Value Reference Range Comments PHOSPHOROUS (test code=PHOS) 3.3 mg/dL 2.5-4.9 [id number] 06:12:00* Test Item Value Reference Range Comments MAGNESIUM (test code=MAG) 1.90 mg/dL 1.8-2.4 CBC W/AUTO [id number] 05:28:00* Test Item Value Reference Range Comments WHITE BLOOD CELL (test code=WBC) 6.66 x10 3/uL 4.5-11.0 RED BLOOD CELL (test code=RBC) 2.54 x10 6/uL 3.54-5.02 HEMOGLOBIN (test code=HGB) 7.5 g/dL 11.0-15.0 HEMATOCRIT (test code=HCT) 23.5 % 33.0-45.0 MEAN CELL VOLUME (test code=MCV) 92.5 fL 81.0-99.0 MEAN CELL HGB (test code=MCH) 29.5 pg 27.0-33.0 MEAN CELL HGB CONCETRATION (test code=MCHC) 31.9 g/dL 33.0-37.0 RED CELL DISTRIBUTION WIDTH CV (test code=RDW) 17.9 % 11.5-14.5 RED CELL DISTRIBUTION WIDTH SD (test code=RDW-SD) 54.3 fL 37.0-54.0 PLATELET COUNT (test code=PLT) 160 x10 3/uL 150-400 MEAN PLATELET VOLUME (test code=MPV) 11.5 fL 7.0-9.0 NEUTROPHIL % (test code=NT%) 83.4 % 56.0-77.0 IMMATURE GRANULOCYTE % (test code=IG%) 1.8 % 0.0-2.0 LYMPHOCYTE % (test code=LY%) 4.8 % 14.0-32.0 MONOCYTE % (test code=MO%) 9.3 % 4.8-9.0 EOSINOPHIL % (test code=EO%) 0.5 % 0.3-3.7 BASOPHIL % (test code=BA%) 0.2 % 0.0-2.0 NUCLEATED RBC % (test code=NRBC%) 0.0 % 0-0 NEUTROPHIL # (test code=NT#) 5.56 x10 3/uL 2.0-7.6 IMMATURE GRANULOCYTE # (test code=IG#) 0.12 x10 3/uL 0.00-0.03 LYMPHOCYTE # (test code=LY#) 0.32 x10 3/uL 1.0-3.8 MONOCYTE # (test code=MO#) 0.62 x10 3/uL 0.1-0.8 EOSINOPHIL # (test code=EO#) 0.03 x10 3/uL 0.0-0.2 BASOPHIL # (test code=BA#) 0.01 x10 3/uL 0.0-0.2 NUCLEATED RBC # (test code=NRBC#) 0.00 x10 3/uL 0.0-0.1 MANUAL DIFF REQUIRED (test code=MDIFF) NO [id number] 00:13:00* Test Item Value Reference Range Comments GLUBED (test code=GLUBED) 86 MG/DL 70-110 Performed by certified traffic control operator at [facility] [id number] 19:36:00* Test Item Value Reference Range Comments GLUBED (test code=GLUBED) 89 MG/DL 70-110 Performed by certified traffic control operator at [facility] [id number] 11:03:00* Test Item Value Reference Range Comments GLUBED (test code=GLUBED) 82 MG/DL 70-110 Performed by certified traffic control operator at [facility] [id number] 10:50:00* Test Item Value Reference Range Comments GLUBED (test code=GLUBED) 91 MG/DL 70-110 Performed by certified traffic control operator at [facility] BASIC METABOLIC [id number] 08:05:00* Test Item Value Reference Range Comments SODIUM (test code=NA) 142 mEq/L 134-147 POTASSIUM (test code=K) 3.0 mEq/L 3.4-5.0 CHLORIDE (test code=CL) 109 mEq/L 100-108 CARBON DIOXIDE (test code=CO2) 25 mEq/L 21-33 ANION GAP (test code=GAP) 11 0-20 GLUCOSE (test code=GLU) 90 mg/dL 70-110 BLOOD UREA NITROGEN (test code=BUN) 31 mg/dL 7-18 GLOMERULAR FILTRATION RATE (test code=GFR) 125.9 80-90 Units of measure=ml/min/1.73 m2 CREATININE (test code=CREAT) 0.5 mg/dL 0.6-1.3 CALCIUM (test code=CA) 8.1 mg/dL 8.0-10.5 [id number] 08:05:00* Test Item Value Reference Range Comments PHOSPHOROUS (test code=PHOS) 3.3 mg/dL 2.5-4.9 [id number] 08:05:00* Test Item Value Reference Range Comments MAGNESIUM (test code=MAG) 2.00 mg/dL 1.8-2.4 [id number] 01:12:00* Test Item Value Reference Range Comments GLUBED (test code=GLUBED) 92 MG/DL 70-110 Performed by certified traffic control operator at [facility] [id number] 20:19:00* Test Item Value Reference Range Comments GLUBED (test code=GLUBED) 106 MG/DL 70-110 Performed by certified traffic control operator at [facility] [id number] 20:19:00* Test Item Value Reference Range Comments GLUBED (test code=GLUBED) 116 MG/DL 70-110 Performed by certified traffic control operator at [facility] CBC W/AUTO [id number] 10:05:00* Test Item Value Reference Range Comments WHITE BLOOD CELL (test code=WBC) 7.29 x10 3/uL 4.5-11.0 RED BLOOD CELL (test code=RBC) 2.53 x10 6/uL 3.54-5.02 HEMOGLOBIN (test code=HGB) 7.6 g/dL 11.0-15.0 HEMATOCRIT (test code=HCT) 23.5 % 33.0-45.0 MEAN CELL VOLUME (test code=MCV) 92.9 fL 81.0-99.0 MEAN CELL HGB (test code=MCH) 30.0 pg 27.0-33.0 MEAN CELL HGB CONCETRATION (test code=MCHC) 32.3 g/dL 33.0-37.0 RED CELL DISTRIBUTION WIDTH CV (test code=RDW) 17.5 % 11.5-14.5 RED CELL DISTRIBUTION WIDTH SD (test code=RDW-SD) 55.6 fL 37.0-54.0 PLATELET COUNT (test code=PLT) 117 x10 3/uL 150-400 MEAN PLATELET VOLUME (test code=MPV) 12.6 fL 7.0-9.0 NEUTROPHIL % (test code=NT%) 83.4 % 56.0-77.0 IMMATURE GRANULOCYTE % (test code=IG%) 3.7 % 0.0-2.0 LYMPHOCYTE % (test code=LY%) 5.1 % 14.0-32.0 MONOCYTE % (test code=MO%) 7.0 % 4.8-9.0 EOSINOPHIL % (test code=EO%) 0.5 % 0.3-3.7 BASOPHIL % (test code=BA%) 0.3 % 0.0-2.0 NUCLEATED RBC % (test code=NRBC%) 0.0 % 0-0 NEUTROPHIL # (test code=NT#) 6.08 x10 3/uL 2.0-7.6 IMMATURE GRANULOCYTE # (test code=IG#) 0.27 x10 3/uL 0.00-0.03 LYMPHOCYTE # (test code=LY#) 0.37 x10 3/uL 1.0-3.8 MONOCYTE # (test code=MO#) 0.51 x10 3/uL 0.1-0.8 EOSINOPHIL # (test code=EO#) 0.04 x10 3/uL 0.0-0.2 BASOPHIL # (test code=BA#) 0.02 x10 3/uL 0.0-0.2 NUCLEATED RBC # (test code=NRBC#) 0.00 x10 3/uL 0.0-0.1 MANUAL DIFF REQUIRED (test code=MDIFF) NO SLIDE REVIEWED, CONSISTENT WITH AUTO DIFF. BASIC METABOLIC [id number] 07:33:00* Test Item Value Reference Range Comments SODIUM (test code=NA) 141 mEq/L 134-147 POTASSIUM (test code=K) 3.4 mEq/L 3.4-5.0 CHLORIDE (test code=CL) 109 mEq/L 100-108 CARBON DIOXIDE (test code=CO2) 26 mEq/L 21-33 ANION GAP (test code=GAP) 9 0-20 GLUCOSE (test code=GLU) 97 mg/dL 70-110 BLOOD UREA NITROGEN (test code=BUN) 39 mg/dL 7-18 GLOMERULAR FILTRATION RATE (test code=GFR) 102.0 80-90 Units of measure=ml/min/1.73 m2 CREATININE (test code=CREAT) 0.6 mg/dL 0.6-1.3 CALCIUM (test code=CA) 7.8 mg/dL 8.0-10.5 [id number] 07:33:00* Test Item Value Reference Range Comments PHOSPHOROUS (test code=PHOS) 3.4 mg/dL 2.5-4.9 [id number] 07:33:00* Test Item Value Reference Range Comments MAGNESIUM (test code=MAG) 1.70 mg/dL 1.8-2.4 CBC W/AUTO [id number] 06:40:00* Test Item Value Reference Range Comments WHITE BLOOD CELL (test code=WBC) 7.29 x10 3/uL 4.5-11.0 RED BLOOD CELL (test code=RBC) 2.53 x10 6/uL 3.54-5.02 HEMOGLOBIN (test code=HGB) 7.6 g/dL 11.0-15.0 HEMATOCRIT (test code=HCT) 23.5 % 33.0-45.0 MEAN CELL VOLUME (test code=MCV) 92.9 fL 81.0-99.0 MEAN CELL HGB (test code=MCH) 30.0 pg 27.0-33.0 MEAN CELL HGB CONCETRATION (test code=MCHC) 32.3 g/dL 33.0-37.0 RED CELL DISTRIBUTION WIDTH CV (test code=RDW) 17.5 % 11.5-14.5 RED CELL DISTRIBUTION WIDTH SD (test code=RDW-SD) 55.6 fL 37.0-54.0 PLATELET COUNT (test code=PLT) 117 x10 3/uL 150-400 MEAN PLATELET VOLUME (test code=MPV) 12.6 fL 7.0-9.0 LYMPHOCYTE % (test code=LY%) % 14.0-32.0 MANUAL DIFF REQUIRED (test code=MDIFF) [id number] 01:23:00* Test Item Value Reference Range Comments GLUBED (test code=GLUBED) 105 MG/DL 70-110 Performed by certified traffic control operator at [facility] [id number] 17:04:00* Test Item Value Reference Range Comments GLUBED (test code=GLUBED) 132 MG/DL 70-110 Performed by certified traffic control operator at [facility] [id number] 12:28:00* Test Item Value Reference Range Comments GLUBED (test code=GLUBED) 141 MG/DL 70-110 Performed by certified traffic control operator at [facility] PROCALCITONIN (PCT)2018-12-25 10:07:00* Test Item Value Reference Range Comments PROCALCITONIN (PCT) (test code=PROCAL) 1.02 ng/mL 0.00-0.05 PROCALCITONIN (PCT) NORMAL RANGE (ADULT): <0.05 NG/ML. * a concentration <0.5 ng/mL represents a low risk of severe sepsis and/or septic shock.* a concentration >2 ng/mL represents a high risk of severe sepsis and/or septic shock.Nevertheless, concentrations <0.5 ng/mL do not exclude aninfection, on account of localized infections (withoutsystemic signs) which can be associated with such lowconcentrations, or a systemic infection in its initialstages (< 6 hours). Furthermore, increased procalcitonincan occur without infection. PCT concentrations between 0.5and 2.0 ng/mL should be interpreted taking into account thepatient's history. It is recommended to retest PCT within6-24 hours if any concentrations <2 ng/mL are obtained. BASIC METABOLIC [id number] 06:07:00* Test Item Value Reference Range Comments SODIUM (test code=NA) 142 mEq/L 134-147 POTASSIUM (test code=K) 3.3 mEq/L 3.4-5.0 CHLORIDE (test code=CL) 110 mEq/L 100-108 CARBON DIOXIDE (test code=CO2) 26 mEq/L 21-33 ANION GAP (test code=GAP) 9 0-20 GLUCOSE (test code=GLU) 137 mg/dL 70-110 BLOOD UREA NITROGEN (test code=BUN) 42 mg/dL 7-18 GLOMERULAR FILTRATION RATE (test code=GFR) 85.4 80-90 Units of measure=ml/min/1.73 m2 CREATININE (test code=CREAT) 0.7 mg/dL 0.6-1.3 CALCIUM (test code=CA) 8.1 mg/dL 8.0-10.5 [id number] 06:07:00* Test Item Value Reference Range Comments PHOSPHOROUS (test code=PHOS) 3.2 mg/dL 2.5-4.9 [id number] 06:07:00* Test Item Value Reference Range Comments MAGNESIUM (test code=MAG) 1.60 mg/dL 1.8-2.4 [id number] 05:48:00* Test Item Value Reference Range Comments GLUBED (test code=GLUBED) 139 MG/DL 70-110 Performed by certified traffic control operator at [facility] [id number] 05:36:00* Test Item Value Reference Range Comments GLUBED (test code=GLUBED) 120 MG/DL 70-110 Performed by certified traffic control operator at [facility] [id number] 23:46:00* Test Item Value Reference Range Comments GLUBED (test code=GLUBED) 135 MG/DL 70-110 Performed by certified traffic control operator at [facility] [id number] 22:20:00* Test Item Value Reference Range Comments POTASSIUM (test code=K) 3.5 mEq/L 3.4-5.0 COMMENTS: REPEAT K [id number] 18:12:00* Test Item Value Reference Range Comments GLUBED (test code=GLUBED) 133 MG/DL 70-110 Performed by certified traffic control operator at [facility] [id number] 14:48:00* Test Item Value Reference Range Comments POTASSIUM (test code=K) 2.8 mEq/L 3.4-5.0 [id number] 12:05:00* Test Item Value Reference Range Comments TRIGLYCERIDES (test code=TRIG) 151 mg/dL 40-150 COMMENTS: PLEASE DRAW OR ADD ON TO THIS MORNING'S [id number] 12:04:00 * Test Item Value Reference Range Comments GLUBED (test code=GLUBED) 143 MG/DL 70-110 Performed by certified traffic control operator at [facility] PROCALCITONIN (PCT)2018-12-24 09:26:00* Test Item Value Reference Range Comments PROCALCITONIN (PCT) (test code=PROCAL) 1.08 ng/mL 0.00-0.05 PROCALCITONIN (PCT) NORMAL RANGE (ADULT): <0.05 NG/ML. * a concentration <0.5 ng/mL represents a low risk of severe sepsis and/or septic shock.* a concentration >2 ng/mL represents a high risk of severe sepsis and/or septic shock.Nevertheless, concentrations <0.5 ng/mL do not exclude aninfection, on account of localized infections (withoutsystemic signs) which can be associated with such lowconcentrations, or a systemic infection in its initialstages (< 6 hours). Furthermore, increased procalcitonincan occur without infection. PCT concentrations between 0.5and 2.0 ng/mL should be interpreted taking into account thepatient's history. It is recommended to retest PCT within6-24 hours if any concentrations <2 ng/mL are obtained. [id number] 06:39:00* Test Item Value Reference Range Comments GLUBED (test code=GLUBED) 131 MG/DL 70-110 Performed by certified traffic control operator at [facility] CBC W/AUTO [id number] 06:04:00* Test Item Value Reference Range Comments WHITE BLOOD CELL (test code=WBC) 7.17 x10 3/uL 4.5-11.0 RED BLOOD CELL (test code=RBC) 2.58 x10 6/uL 3.54-5.02 HEMOGLOBIN (test code=HGB) 7.7 g/dL 11.0-15.0 HEMATOCRIT (test code=HCT) 23.4 % 33.0-45.0 MEAN CELL VOLUME (test code=MCV) 90.7 fL 81.0-99.0 MEAN CELL HGB (test code=MCH) 29.8 pg 27.0-33.0 MEAN CELL HGB CONCETRATION (test code=MCHC) 32.9 g/dL 33.0-37.0 RED CELL DISTRIBUTION WIDTH CV (test code=RDW) 17.3 % 11.5-14.5 RED CELL DISTRIBUTION WIDTH SD (test code=RDW-SD) 53.7 fL 37.0-54.0 PLATELET COUNT (test code=PLT) 79 x10 3/uL 150-400 MEAN PLATELET VOLUME (test code=MPV) 11.9 fL 7.0-9.0 NEUTROPHIL % (test code=NT%) 88.0 % 56.0-77.0 IMMATURE GRANULOCYTE % (test code=IG%) 1.4 % 0.0-2.0 LYMPHOCYTE % (test code=LY%) 4.2 % 14.0-32.0 MONOCYTE % (test code=MO%) 5.7 % 4.8-9.0 EOSINOPHIL % (test code=EO%) 0.6 % 0.3-3.7 BASOPHIL % (test code=BA%) 0.1 % 0.0-2.0 NUCLEATED RBC % (test code=NRBC%) 0.0 % 0-0 NEUTROPHIL # (test code=NT#) 6.31 x10 3/uL 2.0-7.6 IMMATURE GRANULOCYTE # (test code=IG#) 0.10 x10 3/uL 0.00-0.03 LYMPHOCYTE # (test code=LY#) 0.30 x10 3/uL 1.0-3.8 MONOCYTE # (test code=MO#) 0.41 x10 3/uL 0.1-0.8 EOSINOPHIL # (test code=EO#) 0.04 x10 3/uL 0.0-0.2 BASOPHIL # (test code=BA#) 0.01 x10 3/uL 0.0-0.2 NUCLEATED RBC # (test code=NRBC#) 0.00 x10 3/uL 0.0-0.1 MANUAL DIFF REQUIRED (test code=MDIFF) NO SLIDE REVIEWED, CONSISTENT WITH AUTO DIFF. BASIC METABOLIC [id number] 05:45:00* Test Item Value Reference Range Comments SODIUM (test code=NA) 143 mEq/L 134-147 POTASSIUM (test code=K) 2.7 mEq/L 3.4-5.0 CHLORIDE (test code=CL) 110 mEq/L 100-108 CARBON DIOXIDE (test code=CO2) 27 mEq/L 21-33 ANION GAP (test code=GAP) 9 0-20 GLUCOSE (test code=GLU) 128 mg/dL 70-110 BLOOD UREA NITROGEN (test code=BUN) 36 mg/dL 7-18 GLOMERULAR FILTRATION RATE (test code=GFR) 85.4 80-90 Units of measure=ml/min/1.73 m2 CREATININE (test code=CREAT) 0.7 mg/dL 0.6-1.3 CALCIUM (test code=CA) 8.0 mg/dL 8.0-10.5 [id number] 05:45:00* Test Item Value Reference Range Comments ALBUMIN (test code=ALB) 1.30 g/dL 3.4-5.0 [id number] 05:45:00* Test Item Value Reference Range Comments PHOSPHOROUS (test code=PHOS) 3.0 mg/dL 2.5-4.9 [id number] 05:45:00* Test Item Value Reference Range Comments MAGNESIUM (test code=MAG) 1.60 mg/dL 1.8-2.4 [id number] 05:45:00* Test Item Value Reference Range Comments PREALBUMIN (test code=PREALB) 4.4 mg/dL 16.0-40.0 [id number] 05:39:00* Test Item Value Reference Range Comments GLUBED (test code=GLUBED) 139 MG/DL 70-110 Performed by certified traffic control operator at [facility] CBC W/AUTO [id number] 05:15:00* Test Item Value Reference Range Comments WHITE BLOOD CELL (test code=WBC) 7.17 x10 3/uL 4.5-11.0 RED BLOOD CELL (test code=RBC) 2.58 x10 6/uL 3.54-5.02 HEMOGLOBIN (test code=HGB) 7.7 g/dL 11.0-15.0 HEMATOCRIT (test code=HCT) 23.4 % 33.0-45.0 MEAN CELL VOLUME (test code=MCV) 90.7 fL 81.0-99.0 MEAN CELL HGB (test code=MCH) 29.8 pg 27.0-33.0 MEAN CELL HGB CONCETRATION (test code=MCHC) 32.9 g/dL 33.0-37.0 RED CELL DISTRIBUTION WIDTH CV (test code=RDW) 17.3 % 11.5-14.5 RED CELL DISTRIBUTION WIDTH SD (test code=RDW-SD) 53.7 fL 37.0-54.0 PLATELET COUNT (test code=PLT) 79 x10 3/uL 150-400 MEAN PLATELET VOLUME (test code=MPV) 11.9 fL 7.0-9.0 LYMPHOCYTE % (test code=LY%) % 14.0-32.0 MANUAL DIFF REQUIRED (test code=MDIFF) [id number] 18:15:00* Test Item Value Reference Range Comments GLUBED (test code=GLUBED) 141 MG/DL 70-110 Performed by certified traffic control operator at [facility] PROCALCITONIN (PCT)2018-12-23 14:25:00* Test Item Value Reference Range Comments PROCALCITONIN (PCT) (test code=PROCAL) 1.23 ng/mL 0.00-0.05 PROCALCITONIN (PCT) NORMAL RANGE (ADULT): <0.05 NG/ML. * a concentration <0.5 ng/mL represents a low risk of severe sepsis and/or septic shock.* a concentration >2 ng/mL represents a high risk of severe sepsis and/or septic shock.Nevertheless, concentrations <0.5 ng/mL do not exclude aninfection, on account of localized infections (withoutsystemic signs) which can be associated with such lowconcentrations, or a systemic infection in its initialstages (< 6 hours). Furthermore, increased procalcitonincan occur without infection. PCT concentrations between 0.5and 2.0 ng/mL should be interpreted taking into account thepatient's history. It is recommended to retest PCT within6-24 hours if any concentrations <2 ng/mL are obtained. [id number] 13:25:00* Test Item Value Reference Range Comments GLUBED (test code=GLUBED) 127 MG/DL 70-110 Performed by certified traffic control operator at [facility] UA CULT [id number] 10:46:00* Test Item Value Reference Range Comments UA WBC (test code=WBCU) 0-3 WBC/HPF 0-3 UA SQUAMOUS CELLS (test code=SQU) NONE SEEN /HPF NONE SEEN UA CULTURE NEEDED? (test code=UACULT) NO, WBC<10 Criteria Culture Chk Criteria not met, Urine Culture cancelled. LACTIC [id number] 10:12:00* Test Item Value Reference Range Comments LACTIC ACID (test code=LACT) 1.4 mmol/L 0.4-1.9 [id number] 08:59:00* Test Item Value Reference Range Comments PHOSPHOROUS (test code=PHOS) 3.3 mg/dL 2.5-4.9 COMMENTS: PLEASE USE BLOOD IN LAB. THANKS!COMMENTS: Day of initiation if not gonsalo [id number] 08:59:00* Test Item Value Reference Range Comments MAGNESIUM (test code=MAG) 1.90 mg/dL 1.8-2.4 COMMENTS: PLEASE USE BLOOD IN LAB. THANKS!COMMENTS: Day of initiation if not gonsalo [id number] 07:49:00* Test Item Value Reference Range Comments GLUBED (test code=GLUBED) 121 MG/DL 70-110 Performed by certified traffic control operator at [facility] BASIC METABOLIC [id number] 07:30:00* Test Item Value Reference Range Comments SODIUM (test code=NA) 141 mEq/L 134-147 POTASSIUM (test code=K) 3.1 mEq/L 3.4-5.0 CHLORIDE (test code=CL) 108 mEq/L 100-108 CARBON DIOXIDE (test code=CO2) 25 mEq/L 21-33 ANION GAP (test code=GAP) 11 0-20 GLUCOSE (test code=GLU) 120 mg/dL 70-110 BLOOD UREA NITROGEN (test code=BUN) 35 mg/dL 7-18 GLOMERULAR FILTRATION RATE (test code=GFR) 85.4 80-90 Units of measure=ml/min/1.73 m2 CREATININE (test code=CREAT) 0.7 mg/dL 0.6-1.3 CALCIUM (test code=CA) 7.7 mg/dL 8.0-10.5 HEPATIC FUNCTION [id number] 07:30:00* Test Item Value Reference Range Comments TOTAL PROTEIN (test code=PROT) 6.6 g/dL 6.4-8.2 ALBUMIN (test code=ALB) 1.40 g/dL 3.4-5.0 BILIRUBIN TOTAL (test code=BILT) 3.00 mg/dL 0.0-1.0 BILIRUBIN DIRECT (test code=BILD) 2.30 MG/DL 0.0-0.30 BILIRUBIN INDIRECT (test code=BILIND) 0.70 MG/DL SGOT/AST (test code=AST) 120 IUnit/L 15-37 SGPT/ALT (test code=ALT) 116 IUnit/L 15-65 ALKALINE PHOSPHATASE TOTAL (test code=ALKP) 158 IUnit/L 20-125 PROTHROMBIN [id number] 06:38:00* Test Item Value Reference Range Comments PROTHROMBIN TIME PATIENT (test code=PTP) 15.4 SECONDS 9.3-12.9 INTERNATIONAL NORMAL RATIO (test code=INR) 1.4 0.8-1.2 TARGET INR BY INDICATION Indication INR1. Prophylaxis of venous thrombosis 2.0 - 3.0 (orthopedic surgery), Prophylaxis of venous thrombosis (other than high-risk surgery), Treatment of Deep Vein Thrombosis/Pulmonary Embolism, Prevention of systemic embolism - Tissue heart valves, Acute Myocardial Infarction (to prevent systemic embolism), Valvular heart disease, Atrial Fibrillation, Bileaflet mechanical valve in aortic position.2. Mechanical prosthetic valves (high risk), 2.5 - 3.5 Presence of Lupus Anticoagulant or Antiphospholipid Antibodies, Prevention of systemic embolism - Acute Myocardial Infarction (to prevent recurrent infarct). THROMBOPLASTIN TIME [id number] 06:38:00* Test Item Value Reference Range Comments THROMBOPLASTIN TIME PARTIAL (test code=PTT) 28.5 Seconds 25.0-39.5 Therapeutic Range: 61.8-83.8 Sec Effective 11/13/2013 CBC W/AUTO [id number] 06:18:00* Test Item Value Reference Range Comments WHITE BLOOD CELL (test code=WBC) 8.70 x10 3/uL 4.5-11.0 RED BLOOD CELL (test code=RBC) 2.89 x10 6/uL 3.54-5.02 HEMOGLOBIN (test code=HGB) 8.7 g/dL 11.0-15.0 HEMATOCRIT (test code=HCT) 26.1 % 33.0-45.0 MEAN CELL VOLUME (test code=MCV) 90.3 fL 81.0-99.0 MEAN CELL HGB (test code=MCH) 30.1 pg 27.0-33.0 MEAN CELL HGB CONCETRATION (test code=MCHC) 33.3 g/dL 33.0-37.0 RED CELL DISTRIBUTION WIDTH CV (test code=RDW) 17.5 % 11.5-14.5 RED CELL DISTRIBUTION WIDTH SD (test code=RDW-SD) 53.5 fL 37.0-54.0 PLATELET COUNT (test code=PLT) 79 x10 3/uL 150-400 MEAN PLATELET VOLUME (test code=MPV) 11.9 fL 7.0-9.0 NEUTROPHIL % (test code=NT%) 89.1 % 56.0-77.0 IMMATURE GRANULOCYTE % (test code=IG%) 1.1 % 0.0-2.0 LYMPHOCYTE % (test code=LY%) 3.3 % 14.0-32.0 MONOCYTE % (test code=MO%) 5.9 % 4.8-9.0 EOSINOPHIL % (test code=EO%) 0.5 % 0.3-3.7 BASOPHIL % (test code=BA%) 0.1 % 0.0-2.0 NUCLEATED RBC % (test code=NRBC%) 0.0 % 0-0 NEUTROPHIL # (test code=NT#) 7.75 x10 3/uL 2.0-7.6 IMMATURE GRANULOCYTE # (test code=IG#) 0.10 x10 3/uL 0.00-0.03 LYMPHOCYTE # (test code=LY#) 0.29 x10 3/uL 1.0-3.8 MONOCYTE # (test code=MO#) 0.51 x10 3/uL 0.1-0.8 EOSINOPHIL # (test code=EO#) 0.04 x10 3/uL 0.0-0.2 BASOPHIL # (test code=BA#) 0.01 x10 3/uL 0.0-0.2 NUCLEATED RBC # (test code=NRBC#) 0.00 x10 3/uL 0.0-0.1 MANUAL DIFF REQUIRED (test code=MDIFF) NO [id number] 05:17:00* Test Item Value Reference Range Comments GLUBED (test code=GLUBED) 127 MG/DL 70-110 Performed by certified traffic control operator at [facility] [id number] 19:24:00* Test Item Value Reference Range Comments GLUBED (test code=GLUBED) 130 MG/DL 70-110 Performed by certified traffic control operator at [facility] [id number] 16:57:00* Test Item Value Reference Range Comments GLUBED (test code=GLUBED) 132 MG/DL 70-110 Performed by certified traffic control operator at [facility] [id number] 13:16:00* Test Item Value Reference Range Comments GLUBED (test code=GLUBED) 139 MG/DL 70-110 Performed by certified traffic control operator at [facility] CBC W/AUTO [id number] 12:50:00* Test Item Value Reference Range Comments WHITE BLOOD CELL (test code=WBC) 9.53 x10 3/uL 4.5-11.0 RED BLOOD CELL (test code=RBC) 2.86 x10 6/uL 3.54-5.02 HEMOGLOBIN (test code=HGB) 8.4 g/dL 11.0-15.0 HEMATOCRIT (test code=HCT) 25.7 % 33.0-45.0 MEAN CELL VOLUME (test code=MCV) 89.9 fL 81.0-99.0 MEAN CELL HGB (test code=MCH) 29.4 pg 27.0-33.0 MEAN CELL HGB CONCETRATION (test code=MCHC) 32.7 g/dL 33.0-37.0 RED CELL DISTRIBUTION WIDTH CV (test code=RDW) 17.8 % 11.5-14.5 RED CELL DISTRIBUTION WIDTH SD (test code=RDW-SD) 54.2 fL 37.0-54.0 PLATELET COUNT (test code=PLT) 65 x10 3/uL 150-400 MEAN PLATELET VOLUME (test code=MPV) 11.8 fL 7.0-9.0 NEUTROPHIL % (test code=NT%) 92.1 % 56.0-77.0 IMMATURE GRANULOCYTE % (test code=IG%) 0.8 % 0.0-2.0 LYMPHOCYTE % (test code=LY%) 2.8 % 14.0-32.0 MONOCYTE % (test code=MO%) 3.9 % 4.8-9.0 EOSINOPHIL % (test code=EO%) 0.2 % 0.3-3.7 BASOPHIL % (test code=BA%) 0.2 % 0.0-2.0 NUCLEATED RBC % (test code=NRBC%) 0.0 % 0-0 NEUTROPHIL # (test code=NT#) 8.77 x10 3/uL 2.0-7.6 IMMATURE GRANULOCYTE # (test code=IG#) 0.08 x10 3/uL 0.00-0.03 LYMPHOCYTE # (test code=LY#) 0.27 x10 3/uL 1.0-3.8 MONOCYTE # (test code=MO#) 0.37 x10 3/uL 0.1-0.8 EOSINOPHIL # (test code=EO#) 0.02 x10 3/uL 0.0-0.2 BASOPHIL # (test code=BA#) 0.02 x10 3/uL 0.0-0.2 NUCLEATED RBC # (test code=NRBC#) 0.00 x10 3/uL 0.0-0.1 MANUAL DIFF REQUIRED (test code=MDIFF) NO SLIDE REVIEWED, CONSISTENT WITH AUTO DIFF. [id number] 08:53:00* Test Item Value Reference Range Comments PHOSPHOROUS (test code=PHOS) 3.0 mg/dL 2.5-4.9 COMMENTS: PLEASE USE BLOOD IN [id number] 08:53:00* Test Item Value Reference Range Comments MAGNESIUM (test code=MAG) 1.70 mg/dL 1.8-2.4 COMMENTS: PLEASE USE BLOOD IN LABCOMPREHENSIVE METABOLIC [id number] 06:55:00* Test Item Value Reference Range Comments SODIUM (test code=NA) 140 mEq/L 134-147 POTASSIUM (test code=K) 3.2 mEq/L 3.4-5.0 CHLORIDE (test code=CL) 108 mEq/L 100-108 CARBON DIOXIDE (test code=CO2) 25 mEq/L 21-33 ANION GAP (test code=GAP) 10 0-20 GLUCOSE (test code=GLU) 146 mg/dL 70-110 BLOOD UREA NITROGEN (test code=BUN) 34 mg/dL 7-18 GLOMERULAR FILTRATION RATE (test code=GFR) 73.2 80-90 Units of measure=ml/min/1.73 m2 CREATININE (test code=CREAT) 0.8 mg/dL 0.6-1.3 TOTAL PROTEIN (test code=PROT) 5.3 g/dL 6.4-8.2 ALBUMIN (test code=ALB) 1.40 g/dL 3.4-5.0 CALCIUM (test code=CA) 8.1 mg/dL 8.0-10.5 BILIRUBIN TOTAL (test code=BILT) 3.00 mg/dL 0.0-1.0 SGOT/AST (test code=AST) 142 IUnit/L 15-37 SGPT/ALT (test code=ALT) 111 IUnit/L 15-65 ALKALINE PHOSPHATASE TOTAL (test code=ALKP) 182 IUnit/L 20-125 COMPREHENSIVE METABOLIC [id number] 06:51:00* Test Item Value Reference Range Comments SODIUM (test code=NA) 140 mEq/L 134-147 POTASSIUM (test code=K) 3.2 mEq/L 3.4-5.0 CHLORIDE (test code=CL) 108 mEq/L 100-108 CARBON DIOXIDE (test code=CO2) 25 mEq/L 21-33 ANION GAP (test code=GAP) 10 0-20 GLUCOSE (test code=GLU) 146 mg/dL 70-110 BLOOD UREA NITROGEN (test code=BUN) 34 mg/dL 7-18 GLOMERULAR FILTRATION RATE (test code=GFR) 73.2 80-90 Units of measure=ml/min/1.73 m2 CREATININE (test code=CREAT) 0.8 mg/dL 0.6-1.3 TOTAL PROTEIN (test code=PROT) g/dL 6.4-8.2 ALBUMIN (test code=ALB) 1.40 g/dL 3.4-5.0 CALCIUM (test code=CA) 8.1 mg/dL 8.0-10.5 BILIRUBIN TOTAL (test code=BILT) mg/dL 0.0-1.0 SGOT/AST (test code=AST) IUnit/L 15-37 SGPT/ALT (test code=ALT) 111 IUnit/L 15-65 ALKALINE PHOSPHATASE TOTAL (test code=ALKP) IUnit/L 20-125 CBC W/AUTO [id number] 06:20:00* Test Item Value Reference Range Comments WHITE BLOOD CELL (test code=WBC) 9.53 x10 3/uL 4.5-11.0 RED BLOOD CELL (test code=RBC) 2.86 x10 6/uL 3.54-5.02 HEMOGLOBIN (test code=HGB) 8.4 g/dL 11.0-15.0 HEMATOCRIT (test code=HCT) 25.7 % 33.0-45.0 MEAN CELL VOLUME (test code=MCV) 89.9 fL 81.0-99.0 MEAN CELL HGB (test code=MCH) 29.4 pg 27.0-33.0 MEAN CELL HGB CONCETRATION (test code=MCHC) 32.7 g/dL 33.0-37.0 RED CELL DISTRIBUTION WIDTH CV (test code=RDW) 17.8 % 11.5-14.5 RED CELL DISTRIBUTION WIDTH SD (test code=RDW-SD) 54.2 fL 37.0-54.0 PLATELET COUNT (test code=PLT) 65 x10 3/uL 150-400 MEAN PLATELET VOLUME (test code=MPV) 11.8 fL 7.0-9.0 LYMPHOCYTE % (test code=LY%) % 14.0-32.0 MANUAL DIFF REQUIRED (test code=MDIFF) [id number] 05:07:00* Test Item Value Reference Range Comments GLUBED (test code=GLUBED) 138 MG/DL 70-110 Performed by certified traffic control operator at [facility] [id number] 23:21:00* Test Item Value Reference Range Comments GLUBED (test code=GLUBED) 111 MG/DL 70-110 Performed by certified traffic control operator at [facility] [id number] 20:44:00* Test Item Value Reference Range Comments POTASSIUM (test code=K) 3.1 mEq/L 3.4-5.0 [id number] 20:11:00* Test Item Value Reference Range Comments GLUBED (test code=GLUBED) 138 MG/DL 70-110 Performed by certified traffic control operator at [facility] [id number] 16:07:00* Test Item Value Reference Range Comments GLUBED (test code=GLUBED) 132 MG/DL 70-110 Performed by certified traffic control operator at [facility] - XR CHEST 1 [id number] 16:02:00 FAX: Shakila Granados MD [phone] [place]: St: ADM FAX: Jordy Martinez DO [phone] FAX: Dwayne Millan [phone] Name: HEIDI STEINER [facility] [place] : 1960 Age/S: 58/F [address] [place] [address] Unit #: [id number] Loc: G.M[address] [place] [address] Phys: Shakila Khan MD Acct: [id number] Dis Date: Status: ADM IN ONE #: [phone] Exam Date: 12/21/2018 1550 FAX #: [phone] Reason: BNP 1753, EDEMA EXAMS: CPT CODE: [id number] XR CHEST 1 V [id number] Clinical Indic ation: BNP 1753, EDEMA Comparison: Chest x-ray December 18, 2018 FINDINGS: The frontal chest radiograph shows normal lung volumes. Diffuse opacity is seen in the lower lungs, slightly worsened since the last exam. Small bilateral pleural effusions are present. No pneumothor ax is seen. The heart is normal in size. The trachea is midl ine. The tip of the left-sided Port-A-Cath is in the atriocaval junction. The tip of the right IJ line is in the SVC. There are no c linically significant osseous abnormalities noted. IMPRESSION: 1. Diffuse opacity in the lower lungs, slightly worsened since the last exam. Differential includes pulmonary edema and focal consolida tion. 2. Small bilateral pleural effusions, slightly worsened on the r ight side since the last exam. SL: [id number] at 1602 Reported and signed by: Candido Head M.D. CC: Shakila Khan MD; Jordy Gambino DO; Joycelyn Person MD Technologist: Pamela Neumann, RT(R), RTT Trnscrd Date/Time/By: 12/21/2018 (1602) : By: NeetaLNV Orig Print D/T: S: 12/21/2018 (0708) PAGE 1 Signed Report LACTIC [id number] 14:29:00* Test Item Value Reference Range Comments LACTIC ACID (test code=LACT) 1.1 mmol/L 0.4-1.9 [id number] 14:28:00* Test Item Value Reference Range Comments AMMONIA (test code=AMM) < 10 umol/L 0-35 ARTERIAL BLOOD [id number] 14:06:00* Test Item Value Reference Range Comments ARTERIAL BLOOD GAS PH (test code=PHA) 7.512 7.35-7.45 ARTERIAL BLOOD GAS PCO2 (test code=PCO2A) 25.8 mmHg 35-45 ARTERIAL BLOOD GAS PO2 (test code=PO2A) 90 mmHg 80-100 BICARBONATE TOTAL HCO3 (test code=HCO3) 20.7 mmol/L 22.0-26.0 BASE EXCESS (test code=DIYA) -2.0 mmol/L -4-4 ABG O2 SATURATION (test code=SATA) 98 % 90-100 ABG DELIVERY (test code=GLADYS) Room Air Performed by certified traffic control operator at [facility] ABG TEMPERATURE (test code=TEMPA) 98.6 F ABG SITE (test code=SITEA) R Rad TCO2 ARTERIAL (test code=TCO2A) 21 B-TYPE NATRIURETIC [id number] 12:49:00* Test Item Value Reference Range Comments B-TYPE NATRIURETIC PEPTIDE (test code=BNP) 1753.9 PG/ML 0-100 [id number] 12:00:00* Test Item Value Reference Range Comments GLUBED (test code=GLUBED) 149 MG/DL 70-110 Performed by certified traffic control operator at [facility] PROTHROMBIN [id number] 11:11:00* Test Item Value Reference Range Comments PROTHROMBIN TIME PATIENT (test code=PTP) 15.5 SECONDS 9.3-12.9 INTERNATIONAL NORMAL RATIO (test code=INR) 1.4 0.8-1.2 TARGET INR BY INDICATION Indication INR1. Prophylaxis of venous thrombosis 2.0 - 3.0 (orthopedic surgery), Prophylaxis of venous thrombosis (other than high-risk surgery), Treatment of Deep Vein Thrombosis/Pulmonary Embolism, Prevention of systemic embolism - Tissue heart valves, Acute Myocardial Infarction (to prevent systemic embolism), Valvular heart disease, Atrial Fibrillation, Bileaflet mechanical valve in aortic position.2. Mechanical prosthetic valves (high risk), 2.5 - 3.5 Presence of Lupus Anticoagulant or Antiphospholipid Antibodies, Prevention of systemic embolism - Acute Myocardial Infarction (to prevent recurrent infarct). THROMBOPLASTIN TIME [id number] 11:11:00* Test Item Value Reference Range Comments THROMBOPLASTIN TIME PARTIAL (test code=PTT) 31.0 Seconds 25.0-39.5 Therapeutic Range: 61.8-83.8 Sec Effective 11/13/2013 [id number] 11:11:00* Test Item Value Reference Range Comments FIBRINOGEN (test code=FIB) 707 MG/DL 160-450 Excess administration of anticoagulants and/or FibrinDegradation Products may affect Fibrinogen value. CBC W/AUTO [id number] 09:03:00* Test Item Value Reference Range Comments WHITE BLOOD CELL (test code=WBC) 11.33 x10 3/uL 4.5-11.0 RED BLOOD CELL (test code=RBC) 2.83 x10 6/uL 3.54-5.02 HEMOGLOBIN (test code=HGB) 8.4 g/dL 11.0-15.0 HEMATOCRIT (test code=HCT) 25.6 % 33.0-45.0 MEAN CELL VOLUME (test code=MCV) 90.5 fL 81.0-99.0 MEAN CELL HGB (test code=MCH) 29.7 pg 27.0-33.0 MEAN CELL HGB CONCETRATION (test code=MCHC) 32.8 g/dL 33.0-37.0 RED CELL DISTRIBUTION WIDTH CV (test code=RDW) 17.0 % 11.5-14.5 RED CELL DISTRIBUTION WIDTH SD (test code=RDW-SD) 53.3 fL 37.0-54.0 PLATELET COUNT (test code=PLT) x10 3/uL 150-400 SEE PLTS. ESTIMATE MEAN PLATELET VOLUME (test code=MPV) 12.9 fL 7.0-9.0 LYMPHOCYTE % (test code=LY%) % 14.0-32.0 MANUAL DIFF REQUIRED (test code=MDIFF) PLT [id number] 09:03:00* Test Item Value Reference Range Comments PLATELET ESTIMATE (test code=PLTEST) 60-75 THOUSAND ADEQUATE PLATELET MORPHOLOGY (test code=PLTMORPH) LARGE PLATELETS CBC W/AUTO [id number] 09:03:00* Test Item Value Reference Range Comments WHITE BLOOD CELL (test code=WBC) 11.33 x10 3/uL 4.5-11.0 RED BLOOD CELL (test code=RBC) 2.83 x10 6/uL 3.54-5.02 HEMOGLOBIN (test code=HGB) 8.4 g/dL 11.0-15.0 HEMATOCRIT (test code=HCT) 25.6 % 33.0-45.0 MEAN CELL VOLUME (test code=MCV) 90.5 fL 81.0-99.0 MEAN CELL HGB (test code=MCH) 29.7 pg 27.0-33.0 MEAN CELL HGB CONCETRATION (test code=MCHC) 32.8 g/dL 33.0-37.0 RED CELL DISTRIBUTION WIDTH CV (test code=RDW) 17.0 % 11.5-14.5 RED CELL DISTRIBUTION WIDTH SD (test code=RDW-SD) 53.3 fL 37.0-54.0 PLATELET COUNT (test code=PLT) x10 3/uL 150-400 SEE PLTS. ESTIMATE MEAN PLATELET VOLUME (test code=MPV) 12.9 fL 7.0-9.0 NEUTROPHIL % (test code=NT%) 93.1 % 56.0-77.0 IMMATURE GRANULOCYTE % (test code=IG%) 1.0 % 0.0-2.0 LYMPHOCYTE % (test code=LY%) 2.1 % 14.0-32.0 MONOCYTE % (test code=MO%) 3.4 % 4.8-9.0 EOSINOPHIL % (test code=EO%) 0.2 % 0.3-3.7 BASOPHIL % (test code=BA%) 0.2 % 0.0-2.0 NUCLEATED RBC % (test code=NRBC%) 0.0 % 0-0 NEUTROPHIL # (test code=NT#) 10.55 x10 3/uL 2.0-7.6 IMMATURE GRANULOCYTE # (test code=IG#) 0.11 x10 3/uL 0.00-0.03 LYMPHOCYTE # (test code=LY#) 0.24 x10 3/uL 1.0-3.8 MONOCYTE # (test code=MO#) 0.39 x10 3/uL 0.1-0.8 EOSINOPHIL # (test code=EO#) 0.02 x10 3/uL 0.0-0.2 BASOPHIL # (test code=BA#) 0.02 x10 3/uL 0.0-0.2 NUCLEATED RBC # (test code=NRBC#) 0.00 x10 3/uL 0.0-0.1 MANUAL DIFF REQUIRED (test code=MDIFF) NO SLIDE REVIEWED, CONSISTENT WITH AUTO DIFF. PLT [id number] 09:03:00* Test Item Value Reference Range Comments PLATELET ESTIMATE (test code=PLTEST) 60-75 THOUSAND ADEQUATE PLATELET MORPHOLOGY (test code=PLTMORPH) LARGE PLATELETS [id number] 06:17:00* Test Item Value Reference Range Comments GLUBED (test code=GLUBED) 145 MG/DL 70-110 Performed by certified traffic control operator at [facility] BASIC METABOLIC [id number] 05:54:00* Test Item Value Reference Range Comments SODIUM (test code=NA) 142 mEq/L 134-147 POTASSIUM (test code=K) 3.1 mEq/L 3.4-5.0 CHLORIDE (test code=CL) 109 mEq/L 100-108 CARBON DIOXIDE (test code=CO2) 28 mEq/L 21-33 ANION GAP (test code=GAP) 8 0-20 GLUCOSE (test code=GLU) 129 mg/dL 70-110 BLOOD UREA NITROGEN (test code=BUN) 31 mg/dL 7-18 GLOMERULAR FILTRATION RATE (test code=GFR) 85.4 80-90 Units of measure=ml/min/1.73 m2 CREATININE (test code=CREAT) 0.7 mg/dL 0.6-1.3 CALCIUM (test code=CA) 8.1 mg/dL 8.0-10.5 [id number] 05:54:00* Test Item Value Reference Range Comments PHOSPHOROUS (test code=PHOS) 3.4 mg/dL 2.5-4.9 [id number] 05:54:00* Test Item Value Reference Range Comments MAGNESIUM (test code=MAG) 1.60 mg/dL 1.8-2.4 [id number] 05:54:00* Test Item Value Reference Range Comments PREALBUMIN (test code=PREALB) 5.6 mg/dL 16.0-40.0 CBC W/AUTO [id number] 05:23:00* Test Item Value Reference Range Comments WHITE BLOOD CELL (test code=WBC) 11.33 x10 3/uL 4.5-11.0 RED BLOOD CELL (test code=RBC) 2.83 x10 6/uL 3.54-5.02 HEMOGLOBIN (test code=HGB) 8.4 g/dL 11.0-15.0 HEMATOCRIT (test code=HCT) 25.6 % 33.0-45.0 MEAN CELL VOLUME (test code=MCV) 90.5 fL 81.0-99.0 MEAN CELL HGB (test code=MCH) 29.7 pg 27.0-33.0 MEAN CELL HGB CONCETRATION (test code=MCHC) 32.8 g/dL 33.0-37.0 RED CELL DISTRIBUTION WIDTH CV (test code=RDW) 17.0 % 11.5-14.5 RED CELL DISTRIBUTION WIDTH SD (test code=RDW-SD) 53.3 fL 37.0-54.0 PLATELET COUNT (test code=PLT) x10 3/uL 150-400 SEE PLTS. ESTIMATE MEAN PLATELET VOLUME (test code=MPV) 12.9 fL 7.0-9.0 LYMPHOCYTE % (test code=LY%) % 14.0-32.0 MANUAL DIFF REQUIRED (test code=MDIFF) PLT [id number] 05:23:00* Test Item Value Reference Range Comments PLATELET ESTIMATE (test code=PLTEST) THOUSAND ADEQUATE CBC W/AUTO [id number] 05:23:00* Test Item Value Reference Range Comments WHITE BLOOD CELL (test code=WBC) 11.33 x10 3/uL 4.5-11.0 RED BLOOD CELL (test code=RBC) 2.83 x10 6/uL 3.54-5.02 HEMOGLOBIN (test code=HGB) 8.4 g/dL 11.0-15.0 HEMATOCRIT (test code=HCT) 25.6 % 33.0-45.0 MEAN CELL VOLUME (test code=MCV) 90.5 fL 81.0-99.0 MEAN CELL HGB (test code=MCH) 29.7 pg 27.0-33.0 MEAN CELL HGB CONCETRATION (test code=MCHC) 32.8 g/dL 33.0-37.0 RED CELL DISTRIBUTION WIDTH CV (test code=RDW) 17.0 % 11.5-14.5 RED CELL DISTRIBUTION WIDTH SD (test code=RDW-SD) 53.3 fL 37.0-54.0 PLATELET COUNT (test code=PLT) x10 3/uL 150-400 SEE PLTS. ESTIMATE MEAN PLATELET VOLUME (test code=MPV) 12.9 fL 7.0-9.0 LYMPHOCYTE % (test code=LY%) % 14.0-32.0 MANUAL DIFF REQUIRED (test code=MDIFF) PLT [id number] 05:23:00* Test Item Value Reference Range Comments PLATELET ESTIMATE (test code=PLTEST) THOUSAND ADEQUATE [id number] 00:44:00* Test Item Value Reference Range Comments GLUBED (test code=GLUBED) 127 MG/DL 70-110 Performed by certified traffic control operator at [facility] CBC W/AUTO [id number] 21:41:00* Test Item Value Reference Range Comments WHITE BLOOD CELL (test code=WBC) 10.73 x10 3/uL 4.5-11.0 RED BLOOD CELL (test code=RBC) 2.30 x10 6/uL 3.54-5.02 HEMOGLOBIN (test code=HGB) 6.9 g/dL 11.0-15.0 HEMATOCRIT (test code=HCT) 21.6 % 33.0-45.0 MEAN CELL VOLUME (test code=MCV) 93.9 fL 81.0-99.0 MEAN CELL HGB (test code=MCH) 30.0 pg 27.0-33.0 MEAN CELL HGB CONCETRATION (test code=MCHC) 31.9 g/dL 33.0-37.0 RED CELL DISTRIBUTION WIDTH CV (test code=RDW) 17.2 % 11.5-14.5 RED CELL DISTRIBUTION WIDTH SD (test code=RDW-SD) 54.9 fL 37.0-54.0 PLATELET COUNT (test code=PLT) x10 3/uL 150-400 SEE PLT EST. MEAN PLATELET VOLUME (test code=MPV) 12.7 fL 7.0-9.0 NEUTROPHIL % (test code=NT%) 93.6 % 56.0-77.0 IMMATURE GRANULOCYTE % (test code=IG%) 0.8 % 0.0-2.0 LYMPHOCYTE % (test code=LY%) 2.1 % 14.0-32.0 MONOCYTE % (test code=MO%) 3.2 % 4.8-9.0 EOSINOPHIL % (test code=EO%) 0.2 % 0.3-3.7 BASOPHIL % (test code=BA%) 0.1 % 0.0-2.0 NUCLEATED RBC % (test code=NRBC%) 0.0 % 0-0 NEUTROPHIL # (test code=NT#) 10.05 x10 3/uL 2.0-7.6 IMMATURE GRANULOCYTE # (test code=IG#) 0.09 x10 3/uL 0.00-0.03 LYMPHOCYTE # (test code=LY#) 0.22 x10 3/uL 1.0-3.8 MONOCYTE # (test code=MO#) 0.34 x10 3/uL 0.1-0.8 EOSINOPHIL # (test code=EO#) 0.02 x10 3/uL 0.0-0.2 BASOPHIL # (test code=BA#) 0.01 x10 3/uL 0.0-0.2 NUCLEATED RBC # (test code=NRBC#) 0.00 x10 3/uL 0.0-0.1 MANUAL DIFF REQUIRED (test code=MDIFF) NO PLT [id number] 21:41:00* Test Item Value Reference Range Comments PLATELET ESTIMATE (test code=PLTEST) 80-100 THOUSAND ADEQUATE PLATELET MORPHOLOGY (test code=PLTMORPH) LARGE PLATELETS LARGE PLTS AND GIANT PLTS SEEN CBC W/AUTO [id number] 21:39:00* Test Item Value Reference Range Comments WHITE BLOOD CELL (test code=WBC) 10.73 x10 3/uL 4.5-11.0 RED BLOOD CELL (test code=RBC) 2.30 x10 6/uL 3.54-5.02 HEMOGLOBIN (test code=HGB) 6.9 g/dL 11.0-15.0 HEMATOCRIT (test code=HCT) 21.6 % 33.0-45.0 MEAN CELL VOLUME (test code=MCV) 93.9 fL 81.0-99.0 MEAN CELL HGB (test code=MCH) 30.0 pg 27.0-33.0 MEAN CELL HGB CONCETRATION (test code=MCHC) 31.9 g/dL 33.0-37.0 RED CELL DISTRIBUTION WIDTH CV (test code=RDW) 17.2 % 11.5-14.5 RED CELL DISTRIBUTION WIDTH SD (test code=RDW-SD) 54.9 fL 37.0-54.0 PLATELET COUNT (test code=PLT) x10 3/uL 150-400 SEE PLT EST. MEAN PLATELET VOLUME (test code=MPV) 12.7 fL 7.0-9.0 NEUTROPHIL % (test code=NT%) 93.6 % 56.0-77.0 IMMATURE GRANULOCYTE % (test code=IG%) 0.8 % 0.0-2.0 LYMPHOCYTE % (test code=LY%) 2.1 % 14.0-32.0 MONOCYTE % (test code=MO%) 3.2 % 4.8-9.0 EOSINOPHIL % (test code=EO%) 0.2 % 0.3-3.7 BASOPHIL % (test code=BA%) 0.1 % 0.0-2.0 NUCLEATED RBC % (test code=NRBC%) 0.0 % 0-0 NEUTROPHIL # (test code=NT#) 10.05 x10 3/uL 2.0-7.6 IMMATURE GRANULOCYTE # (test code=IG#) 0.09 x10 3/uL 0.00-0.03 LYMPHOCYTE # (test code=LY#) 0.22 x10 3/uL 1.0-3.8 MONOCYTE # (test code=MO#) 0.34 x10 3/uL 0.1-0.8 EOSINOPHIL # (test code=EO#) 0.02 x10 3/uL 0.0-0.2 BASOPHIL # (test code=BA#) 0.01 x10 3/uL 0.0-0.2 NUCLEATED RBC # (test code=NRBC#) 0.00 x10 3/uL 0.0-0.1 MANUAL DIFF REQUIRED (test code=MDIFF) NO PLT [id number] 21:39:00* Test Item Value Reference Range Comments PLATELET ESTIMATE (test code=PLTEST) THOUSAND ADEQUATE CBC W/AUTO [id number] 21:39:00* Test Item Value Reference Range Comments WHITE BLOOD CELL (test code=WBC) 10.73 x10 3/uL 4.5-11.0 RED BLOOD CELL (test code=RBC) 2.30 x10 6/uL 3.54-5.02 HEMOGLOBIN (test code=HGB) 6.9 g/dL 11.0-15.0 HEMATOCRIT (test code=HCT) 21.6 % 33.0-45.0 MEAN CELL VOLUME (test code=MCV) 93.9 fL 81.0-99.0 MEAN CELL HGB (test code=MCH) 30.0 pg 27.0-33.0 MEAN CELL HGB CONCETRATION (test code=MCHC) 31.9 g/dL 33.0-37.0 RED CELL DISTRIBUTION WIDTH CV (test code=RDW) 17.2 % 11.5-14.5 RED CELL DISTRIBUTION WIDTH SD (test code=RDW-SD) 54.9 fL 37.0-54.0 PLATELET COUNT (test code=PLT) x10 3/uL 150-400 SEE PLT EST. MEAN PLATELET VOLUME (test code=MPV) 12.7 fL 7.0-9.0 NEUTROPHIL % (test code=NT%) 93.6 % 56.0-77.0 IMMATURE GRANULOCYTE % (test code=IG%) 0.8 % 0.0-2.0 LYMPHOCYTE % (test code=LY%) 2.1 % 14.0-32.0 MONOCYTE % (test code=MO%) 3.2 % 4.8-9.0 EOSINOPHIL % (test code=EO%) 0.2 % 0.3-3.7 BASOPHIL % (test code=BA%) 0.1 % 0.0-2.0 NUCLEATED RBC % (test code=NRBC%) 0.0 % 0-0 NEUTROPHIL # (test code=NT#) 10.05 x10 3/uL 2.0-7.6 IMMATURE GRANULOCYTE # (test code=IG#) 0.09 x10 3/uL 0.00-0.03 LYMPHOCYTE # (test code=LY#) 0.22 x10 3/uL 1.0-3.8 MONOCYTE # (test code=MO#) 0.34 x10 3/uL 0.1-0.8 EOSINOPHIL # (test code=EO#) 0.02 x10 3/uL 0.0-0.2 BASOPHIL # (test code=BA#) 0.01 x10 3/uL 0.0-0.2 NUCLEATED RBC # (test code=NRBC#) 0.00 x10 3/uL 0.0-0.1 MANUAL DIFF REQUIRED (test code=MDIFF) NO PLT [id number] 21:39:00* Test Item Value Reference Range Comments PLATELET ESTIMATE (test code=PLTEST) THOUSAND ADEQUATE CBC W/AUTO [id number] 21:35:00* Test Item Value Reference Range Comments WHITE BLOOD CELL (test code=WBC) 10.73 x10 3/uL 4.5-11.0 RED BLOOD CELL (test code=RBC) 2.30 x10 6/uL 3.54-5.02 HEMOGLOBIN (test code=HGB) 6.9 g/dL 11.0-15.0 HEMATOCRIT (test code=HCT) 21.6 % 33.0-45.0 MEAN CELL VOLUME (test code=MCV) 93.9 fL 81.0-99.0 MEAN CELL HGB (test code=MCH) 30.0 pg 27.0-33.0 MEAN CELL HGB CONCETRATION (test code=MCHC) 31.9 g/dL 33.0-37.0 RED CELL DISTRIBUTION WIDTH CV (test code=RDW) 17.2 % 11.5-14.5 RED CELL DISTRIBUTION WIDTH SD (test code=RDW-SD) 54.9 fL 37.0-54.0 PLATELET COUNT (test code=PLT) x10 3/uL 150-400 SEE PLT EST. MEAN PLATELET VOLUME (test code=MPV) 12.7 fL 7.0-9.0 NEUTROPHIL % (test code=NT%) 93.6 % 56.0-77.0 IMMATURE GRANULOCYTE % (test code=IG%) 0.8 % 0.0-2.0 LYMPHOCYTE % (test code=LY%) 2.1 % 14.0-32.0 MONOCYTE % (test code=MO%) 3.2 % 4.8-9.0 EOSINOPHIL % (test code=EO%) 0.2 % 0.3-3.7 BASOPHIL % (test code=BA%) 0.1 % 0.0-2.0 NUCLEATED RBC % (test code=NRBC%) 0.0 % 0-0 NEUTROPHIL # (test code=NT#) 10.05 x10 3/uL 2.0-7.6 IMMATURE GRANULOCYTE # (test code=IG#) 0.09 x10 3/uL 0.00-0.03 LYMPHOCYTE # (test code=LY#) 0.22 x10 3/uL 1.0-3.8 MONOCYTE # (test code=MO#) 0.34 x10 3/uL 0.1-0.8 EOSINOPHIL # (test code=EO#) 0.02 x10 3/uL 0.0-0.2 BASOPHIL # (test code=BA#) 0.01 x10 3/uL 0.0-0.2 NUCLEATED RBC # (test code=NRBC#) 0.00 x10 3/uL 0.0-0.1 MANUAL DIFF REQUIRED (test code=MDIFF) NO CBC W/AUTO [id number] 20:47:00* Test Item Value Reference Range Comments WHITE BLOOD CELL (test code=WBC) 10.73 x10 3/uL 4.5-11.0 RED BLOOD CELL (test code=RBC) 2.30 x10 6/uL 3.54-5.02 HEMOGLOBIN (test code=HGB) 6.9 g/dL 11.0-15.0 HEMATOCRIT (test code=HCT) 21.6 % 33.0-45.0 MEAN CELL VOLUME (test code=MCV) 93.9 fL 81.0-99.0 MEAN CELL HGB (test code=MCH) 30.0 pg 27.0-33.0 MEAN CELL HGB CONCETRATION (test code=MCHC) 31.9 g/dL 33.0-37.0 RED CELL DISTRIBUTION WIDTH CV (test code=RDW) 17.2 % 11.5-14.5 RED CELL DISTRIBUTION WIDTH SD (test code=RDW-SD) 54.9 fL 37.0-54.0 PLATELET COUNT (test code=PLT) x10 3/uL 150-400 SEE PLT EST. MEAN PLATELET VOLUME (test code=MPV) 12.7 fL 7.0-9.0 LYMPHOCYTE % (test code=LY%) % 14.0-32.0 MANUAL DIFF REQUIRED (test code=MDIFF) [id number] 17:22:00* Test Item Value Reference Range Comments GLUBED (test code=GLUBED) 95 MG/DL 70-110 Performed by certified traffic control operator at [facility] - US GUIDANCE [facility] [id number] 17:14:00 FAX: Jordy Martinez DO [phone] [place]: St: ADM FAX: Y Dwayne Person [phone] Name: HEIDI STEINER [facility] : 1960 Age/S: 58/F [address] [place] [address] Unit #: [id number] Loc: Ken.M324 [place] [address] Phys: Joycelyn Person MD Acct: [id number] Dis Date: Status: ADM IN PHONE #: [phone] Exam Date: 12/20/2018 1651 FAX #: [phone] Reason: VASCULAR ACCESS FOR IVC FILTER PLACEMENT EXAMS: CPT CODE: [id number] [place] GUIDANCE VAS ACCESS 94080 PROCEDURE: Inferior vena cavogram. Placement of retr ievable inferior vena cava filter using fluoroscopic guidance. Ultra sound guided puncture of the right internal jugular vein. INDICATI ON: DVT with contraindication of anticoagulation.. COMPARISON: Non e. TECHNICAL: Fluoroscopic time was 2.2 minutes. Refe rence Air Kerma Dose 69 mGy. PROCEDURE: The procedure, ris ks, benefits and alternatives were discussed. Informed consent was obtaine d. Timeout was performed prior to the procedure. The patient was placed in the supine position. Right neck was sterilely prepped and d raped. 1% lidocaine was used for local anesthesia. Ultrasound was used to evaluate potential venous access sites. Patency of the internal jugular ve in was confirmed. Realtime ultrasound was used to visualize vascular needl e entry. Ultrasound imaging of the needle puncture was obtained for perman ent recording and reporting. Guidewire was advanced centrally. Tract was d ilated and flush catheter was appropriately positioned. Inferior vena cava gram was performed. The Cook celect inferior vena cava filte r was then loaded within the delivery system. The filter was deployed with in the infrarenal inferior vena cava. Final completion inferior vena cavag shaun was performed which demonstrates proper placement of the inferior vena cava filter. The delivery sheath was then removed. Pressure was matthew lied to the puncture site with adequate hemostasis. Sterile dressing was a pplied. There were no evident complications and the patient had no complai nts. FINDINGS: Inferior vena cava appears normal without thr ombus or anomaly. Iliac venous and renal venous inflows are identified. Completion inferior vena cavogram demonstrates well-positioned inferior vena cava filter in the infrarenal IVC. PAGE 1 Signed Report (CONTINUED) FAX: Jordy Martinez DO [phone] [place]: St: [facility] FAX: Dwayne Millan -------- Name: HEIDI STEINER [facility] : 1960 Age/S: 58/F [address] [place] [address] Unit #: [id number] Loc: G.M324 [place] [address] Phys: Joycelyn Araiza MD Acct: [id number] Dis Date: Status: ADM IN [facility] NE #: [phone] Exam Date: 12/20/2018 1651 FAX #: [phone] Reason: VASCULAR ACCESS FOR IVC FILTER PLACEMENT E XAMS: CPT CODE: [id number] [facility]UIDANCE VASC ACCESS 01382 <Continued> IMPRESSION: 1. Technically successful placement of retrievable inferior vena cava filter using ultrasound and fluoroscopic guidance. 2. Normal inferior vena cavogram. at 9854 Reported and signed by: Madelyn Christine D.O. CC: Jordy Gambino DO; Joycelyn Person MD Technologist: Angela Kemp RT(R); Lori Ibarra RT(R)(CT) Trnscrd Date/Time/By: 12/20/2018 (1714) : By: [email or web address] Orig Print D/T: S: 12/20/2018 (1715) PAGE 2 Signed Report - INSERT IVC ENDO [id number] 17:14:00 FAX: Jennifer WoodImmanuelJordy auguste [phone] [place]: St: ADM FAX: Dre Lezama MD [phone] FAX: Jennifer Dwayne Person --------- Name: HEIDI STEINER [facility] : 1960 Age/S: 58/F [address] [place] [address] it #: [id number] Loc: G.24 [place] [address] Phys: Dre Alejandre MD Acct: [id number] Dis Date: Status: ADM IN ONE #: [phone] Exam Date: 12/20/2018 1651 FAX #: [phone] Reason: EXAMS: CPT CODE: [id number] IN SERT IVC ENDO W/IMAG [id number] PROCEDURE: Inferior vena cavogram. Placement of retrievable inferior vena cava melinda ter using fluoroscopic guidance. Ultrasound guided puncture of the r ight internal jugular vein. INDICATION: DVT with contraindication of anticoagulation.. COMPARISON: None. TECHNICAL: Fluoroscopic time was 2.2 minutes. Reference Air Kerma Dose 69 mGy. PROCEDURE: The procedure, risks, benefits and alternatives were discussed. Informed consent was obtained. Timeout was performed prior to the procedure. The patient was placed in the supine posi tion. Right neck was sterilely prepped and draped. 1% lidocaine was used f or local anesthesia. Ultrasound was used to evaluate potential venous acce ss sites. Patency of the internal jugular vein was confirmed. Realtime ultrasound was used to visualize vascular needle entry. Ultrasound imag ing of the needle puncture was obtained for permanent recording and report ing. Guidewire was advanced centrally. Tract was dilated and flush cathete r was appropriately positioned. Inferior vena cavagram was performed. The Featherlightt inferior vena cava filter was then loaded within the delivery system. The filter was deployed within the infrarenal inferior vena cava. Final completion inferior vena cavagram was performed which demonstrates proper placement of the inferior vena cava filter. The delive ry sheath was then removed. Pressure was applied to the puncture site with adequate hemostasis. Sterile dressing was applied. There were no evident complications and the patient had no complaints. FINDINGS: Inferior vena cava appears normal without thrombus or anomaly. Iliac venous and renal venous inflows are identified. Completion inferior vena c avogram demonstrates well-positioned inferior vena cava filter in the infr arenal IVC. PAGE 1 Signed Report ( CONTINUED) FAX: Jordy Martinez DO [phone] [place]: St: [facility] FAX: Dre Lezama MD [phone] FAX: Beatrice Millan [phone] Name: HEIDI STEINER [facility] : 1960 Age/S: 58/F [address] [place] [address] Unit #: [id number] Loc: G.24 [place] [address] Phys: Dre Alejandre MD cct: [id number] Dis Date: Status: ADM IN PHONE #: [phone] Exam Date: 12/20/2018 1651 FAX #: [phone] Reason: EXAMS: CPT CODE: 0 [id number] INSERT IVC ENDO W/IMAG [id number] < Continued> IMPRESSION: 1. Technically successful placement of retrievable inferior vena cava filter using ultrasound and fluoroscopic guidance. 2. Normal inferior vena cavogram. at 1714 Reported and signed by: Madelyn Christine D.O. CC: Jordy Gambino DO; Dre Alejandre MD; Joycelyn Person MD Technologist: Angela Kemp RT(R); Lori Ibarra RT(R)(CT) Trnscrd Date/Time/By: 12/20/2018 (1714) : By: [email or web address] Orig Print D/T: S: 12/20/2018 (1719) PAGE 2 Signed Report [id number] 15:07:00* Test Item Value Reference Range Comments GLUBED (test code=GLUBED) 130 MG/DL 70-110 Performed by certified traffic control operator at [facility] CBC W/AUTO [id number] 10:03:00* Test Item Value Reference Range Comments WHITE BLOOD CELL (test code=WBC) 10.44 x10 3/uL 4.5-11.0 RED BLOOD CELL (test code=RBC) 2.51 x10 6/uL 3.54-5.02 HEMOGLOBIN (test code=HGB) 7.5 g/dL 11.0-15.0 HEMATOCRIT (test code=HCT) 23.6 % 33.0-45.0 MEAN CELL VOLUME (test code=MCV) 94.0 fL 81.0-99.0 MEAN CELL HGB (test code=MCH) 29.9 pg 27.0-33.0 MEAN CELL HGB CONCETRATION (test code=MCHC) 31.8 g/dL 33.0-37.0 RED CELL DISTRIBUTION WIDTH CV (test code=RDW) 16.5 % 11.5-14.5 RED CELL DISTRIBUTION WIDTH SD (test code=RDW-SD) 54.8 fL 37.0-54.0 PLATELET COUNT (test code=PLT) 38 x10 3/uL 150-400 MEAN PLATELET VOLUME (test code=MPV) 12.6 fL 7.0-9.0 NEUTROPHIL % (test code=NT%) 91.8 % 56.0-77.0 IMMATURE GRANULOCYTE % (test code=IG%) 1.4 % 0.0-2.0 LYMPHOCYTE % (test code=LY%) 3.0 % 14.0-32.0 MONOCYTE % (test code=MO%) 3.2 % 4.8-9.0 EOSINOPHIL % (test code=EO%) 0.4 % 0.3-3.7 BASOPHIL % (test code=BA%) 0.2 % 0.0-2.0 NUCLEATED RBC % (test code=NRBC%) 0.0 % 0-0 NEUTROPHIL # (test code=NT#) 9.59 x10 3/uL 2.0-7.6 IMMATURE GRANULOCYTE # (test code=IG#) 0.15 x10 3/uL 0.00-0.03 LYMPHOCYTE # (test code=LY#) 0.31 x10 3/uL 1.0-3.8 MONOCYTE # (test code=MO#) 0.33 x10 3/uL 0.1-0.8 EOSINOPHIL # (test code=EO#) 0.04 x10 3/uL 0.0-0.2 BASOPHIL # (test code=BA#) 0.02 x10 3/uL 0.0-0.2 NUCLEATED RBC # (test code=NRBC#) 0.00 x10 3/uL 0.0-0.1 MANUAL DIFF REQUIRED (test code=MDIFF) NO SLIDE REVIEWED, CONSISTENT WITH AUTO DIFF. COMMENTS: To be done morning of Heart CathPLT [id number] 10:03:00* Test Item Value Reference Range Comments PLATELET ESTIMATE (test code=PLTEST) 68-85 THOUSAND ADEQUATE PLATELET MORPHOLOGY (test code=PLTMORPH) LARGE PLATELETS LARGE PLTS AND FEW GIANT PLTS SEEN COMMENTS: To be done morning of Heart CathCBC W/AUTO [id number] 10:01:00* Test Item Value Reference Range Comments WHITE BLOOD CELL (test code=WBC) 10.44 x10 3/uL 4.5-11.0 RED BLOOD CELL (test code=RBC) 2.51 x10 6/uL 3.54-5.02 HEMOGLOBIN (test code=HGB) 7.5 g/dL 11.0-15.0 HEMATOCRIT (test code=HCT) 23.6 % 33.0-45.0 MEAN CELL VOLUME (test code=MCV) 94.0 fL 81.0-99.0 MEAN CELL HGB (test code=MCH) 29.9 pg 27.0-33.0 MEAN CELL HGB CONCETRATION (test code=MCHC) 31.8 g/dL 33.0-37.0 RED CELL DISTRIBUTION WIDTH CV (test code=RDW) 16.5 % 11.5-14.5 RED CELL DISTRIBUTION WIDTH SD (test code=RDW-SD) 54.8 fL 37.0-54.0 PLATELET COUNT (test code=PLT) 38 x10 3/uL 150-400 MEAN PLATELET VOLUME (test code=MPV) 12.6 fL 7.0-9.0 NEUTROPHIL % (test code=NT%) 91.8 % 56.0-77.0 IMMATURE GRANULOCYTE % (test code=IG%) 1.4 % 0.0-2.0 LYMPHOCYTE % (test code=LY%) 3.0 % 14.0-32.0 MONOCYTE % (test code=MO%) 3.2 % 4.8-9.0 EOSINOPHIL % (test code=EO%) 0.4 % 0.3-3.7 BASOPHIL % (test code=BA%) 0.2 % 0.0-2.0 NUCLEATED RBC % (test code=NRBC%) 0.0 % 0-0 NEUTROPHIL # (test code=NT#) 9.59 x10 3/uL 2.0-7.6 IMMATURE GRANULOCYTE # (test code=IG#) 0.15 x10 3/uL 0.00-0.03 LYMPHOCYTE # (test code=LY#) 0.31 x10 3/uL 1.0-3.8 MONOCYTE # (test code=MO#) 0.33 x10 3/uL 0.1-0.8 EOSINOPHIL # (test code=EO#) 0.04 x10 3/uL 0.0-0.2 BASOPHIL # (test code=BA#) 0.02 x10 3/uL 0.0-0.2 NUCLEATED RBC # (test code=NRBC#) 0.00 x10 3/uL 0.0-0.1 MANUAL DIFF REQUIRED (test code=MDIFF) NO SLIDE REVIEWED, CONSISTENT WITH AUTO DIFF. COMMENTS: To be done morning of Heart CathPLT [id number] 10:01:00* Test Item Value Reference Range Comments PLATELET ESTIMATE (test code=PLTEST) THOUSAND ADEQUATE COMMENTS: To be done morning of Heart CathCBC W/AUTO [id number] 10:01:00* Test Item Value Reference Range Comments WHITE BLOOD CELL (test code=WBC) 10.44 x10 3/uL 4.5-11.0 RED BLOOD CELL (test code=RBC) 2.51 x10 6/uL 3.54-5.02 HEMOGLOBIN (test code=HGB) 7.5 g/dL 11.0-15.0 HEMATOCRIT (test code=HCT) 23.6 % 33.0-45.0 MEAN CELL VOLUME (test code=MCV) 94.0 fL 81.0-99.0 MEAN CELL HGB (test code=MCH) 29.9 pg 27.0-33.0 MEAN CELL HGB CONCETRATION (test code=MCHC) 31.8 g/dL 33.0-37.0 RED CELL DISTRIBUTION WIDTH CV (test code=RDW) 16.5 % 11.5-14.5 RED CELL DISTRIBUTION WIDTH SD (test code=RDW-SD) 54.8 fL 37.0-54.0 PLATELET COUNT (test code=PLT) 38 x10 3/uL 150-400 MEAN PLATELET VOLUME (test code=MPV) 12.6 fL 7.0-9.0 NEUTROPHIL % (test code=NT%) 91.8 % 56.0-77.0 IMMATURE GRANULOCYTE % (test code=IG%) 1.4 % 0.0-2.0 LYMPHOCYTE % (test code=LY%) 3.0 % 14.0-32.0 MONOCYTE % (test code=MO%) 3.2 % 4.8-9.0 EOSINOPHIL % (test code=EO%) 0.4 % 0.3-3.7 BASOPHIL % (test code=BA%) 0.2 % 0.0-2.0 NUCLEATED RBC % (test code=NRBC%) 0.0 % 0-0 NEUTROPHIL # (test code=NT#) 9.59 x10 3/uL 2.0-7.6 IMMATURE GRANULOCYTE # (test code=IG#) 0.15 x10 3/uL 0.00-0.03 LYMPHOCYTE # (test code=LY#) 0.31 x10 3/uL 1.0-3.8 MONOCYTE # (test code=MO#) 0.33 x10 3/uL 0.1-0.8 EOSINOPHIL # (test code=EO#) 0.04 x10 3/uL 0.0-0.2 BASOPHIL # (test code=BA#) 0.02 x10 3/uL 0.0-0.2 NUCLEATED RBC # (test code=NRBC#) 0.00 x10 3/uL 0.0-0.1 MANUAL DIFF REQUIRED (test code=MDIFF) NO SLIDE REVIEWED, CONSISTENT WITH AUTO DIFF. COMMENTS: To be done morning of Heart CathPLT [id number] 10:01:00* Test Item Value Reference Range Comments PLATELET ESTIMATE (test code=PLTEST) THOUSAND ADEQUATE COMMENTS: To be done morning of Heart CathSURGICAL [id number] 08:26:00 RUN DATE: 12/20/18 [facility] *LIVE* PAGE 1 RUN TIME: 825 Specimen Inqui ry RUN USER: INTERFACE PATIENT: HEIDI STEINER ACCT #: [id number] LOC: [facility] U #: [id number] AGE/SX: 58/F ROOM: [facility] RE11/29/18[facility] DR: Long Person : 56 BED: 1 DIS: STATUS: ADM IN TLOC: SPEC #: [id number] RECD: 12/17/18 STATUS: SIVAN WASSERMAN #: [id number] THOMPSON: 12/17/[address]: Long Person MD ENTERED: 12/19/18 SP TYPE: SURG SPEC OTHR DR: Shakila Mayorga i, MD,Jordan Munoz MD, MD, Vikas MD Kirkwood, John D DO K oons JR,Terrence HAYNES L duran,Kleber Pressley MD, MD,Jami Pollard MDORDERED: GM LEVEL 4 CODES: [id number] - SOFT TISSUES, N [id number] - COLON, NOS COPIES TO: [place] [address] [place] [address] Judith Orozco MD [address] [place] [address] Jordan Aldridge MD [address] [facility] [address] [place], [place] [address] Naif Alex MD [address] [place], [place] [address] Jordy Gambino DO [address] [facility] [address] [place], [place] [id number] Terrence Bourgeois JR, MD 100[address] [facility] [address] [place], [place] [id number] CONTINUED ON NEXT PAGE RUN DATE: 12/20/18 [place] [facility] *COLETTE WARE* PAGE 2 RUN TIME: 825 Speci men Inquiry RUN USER: INTERFACE SPEC #: [id number] PATIENT: HEIDI SENA #[id number] (Continued) COPIES TO: (C ontinued) Dre Alejandre MD [address] [place] [address] Kleber Mercado MD [address] [facility] [facility] [address] [place] [address] Jami Blas MD [address] [place] [address] Joycelyn Person MD [address] [place] [address] [email or web address] [email or web address] URES: GM LEVEL 4 (Incomplete) TISSUES: 1. COLON, NOS - Colostomy 2. SOFT TISSUES, NOS - Soft tissue, abdominal wall, excision FINAL DI AGNOSIS Colostomy: Changes consistent with colostomy, with necrosis, acute a nd chronic inflammation and hemorrhage. Soft tissue, abdominal wall, ex cision: Necrosis, hemorrhage, acute and chronic inflammation. GROSS AND MICROSCOPIC GROSS EXAMINATION: Received in formalin labeled colostomy is a 4. 9 cm in length 3.5 cm in diameter portion of colon with a ring of taveras-more skin on one side. The serosal surface erythematous, this surrounding soft tis niharika is densely indurated. The mucosa of the colon is taveras-more. Submitted (A) c olon adjacent to stapled margin (C)-(D) mill representative sections. Received in formalin labeled abdominal wall necrotic fat skin and adipose is a 13 x 9 x 3 cm aggregate of more skin with areas of ulceration and galdamez d iscoloration with underlying indurated adipose. Plastic Manager sections are submitted (E)-(J). [facility] EXAMINATION: Specimen #1 reveals skin and colonic tissue with CONTINUED ON NEXT PAGE RUN DATE: 12/20/18 [facility] *LIVE* PAGE 3 RUN DWAYNE E: 0826 Specimen Inquiry RUN USER: INTERFACE -SPEC #: [id number] PATIENT: HEIDI STEINER #[id number] (Continued) GROSS AND MICROSCOPIC (Continued) necro sis, hemorrhage, acute and chronic inflammation. The second specimen reveals skin and subcutaneous tissue with necrosis, hemorrhage, and acute and chronic inflammation. POST-OP DIAGNOSIS None given PRE-OP DIAGNOSIS None given Elicia hobbs SIGNATURE ON FILE Christie Sylvester MD 12/20/18 0826 -- END OF REPORT BASIC METABOLIC [id number] 06:05:00* Test Item Value Reference Range Comments SODIUM (test code=NA) 140 mEq/L 134-147 POTASSIUM (test code=K) 3.3 mEq/L 3.4-5.0 CHLORIDE (test code=CL) 108 mEq/L 100-108 CARBON DIOXIDE (test code=CO2) 29 mEq/L 21-33 ANION GAP (test code=GAP) 6 0-20 GLUCOSE (test code=GLU) 139 mg/dL 70-110 BLOOD UREA NITROGEN (test code=BUN) 34 mg/dL 7-18 GLOMERULAR FILTRATION RATE (test code=GFR) 73.2 80-90 Units of measure=ml/min/1.73 m2 CREATININE (test code=CREAT) 0.8 mg/dL 0.6-1.3 CALCIUM (test code=CA) 8.2 mg/dL 8.0-10.5 COMMENTS: To be done morning of Heart CathHEPATIC FUNCTION [id number] 06:05:00* Test Item Value Reference Range Comments TOTAL PROTEIN (test code=PROT) 4.6 g/dL 6.4-8.2 ALBUMIN (test code=ALB) 1.40 g/dL 3.4-5.0 BILIRUBIN TOTAL (test code=BILT) 2.10 mg/dL 0.0-1.0 BILIRUBIN DIRECT (test code=BILD) 1.70 MG/DL 0.0-0.30 BILIRUBIN INDIRECT (test code=BILIND) 0.40 MG/DL SGOT/AST (test code=AST) 113 IUnit/L 15-37 SGPT/ALT (test code=ALT) 70 IUnit/L 15-65 ALKALINE PHOSPHATASE TOTAL (test code=ALKP) 156 IUnit/L 20-125 COMMENTS: To be done morning of Heart [id number] 06:05:00* Test Item Value Reference Range Comments PHOSPHOROUS (test code=PHOS) 1.9 mg/dL 2.5-4.9 COMMENTS: To be done morning of Heart [id number] 06:05:00* Test Item Value Reference Range Comments MAGNESIUM (test code=MAG) 1.80 mg/dL 1.8-2.4 COMMENTS: To be done morning of Heart CathBASIC METABOLIC [id number] 06:03:00* Test Item Value Reference Range Comments SODIUM (test code=NA) 140 mEq/L 134-147 POTASSIUM (test code=K) 3.3 mEq/L 3.4-5.0 CHLORIDE (test code=CL) 108 mEq/L 100-108 CARBON DIOXIDE (test code=CO2) 29 mEq/L 21-33 ANION GAP (test code=GAP) 6 0-20 GLUCOSE (test code=GLU) 139 mg/dL 70-110 BLOOD UREA NITROGEN (test code=BUN) 34 mg/dL 7-18 GLOMERULAR FILTRATION RATE (test code=GFR) 73.2 80-90 Units of measure=ml/min/1.73 m2 CREATININE (test code=CREAT) 0.8 mg/dL 0.6-1.3 CALCIUM (test code=CA) 8.2 mg/dL 8.0-10.5 COMMENTS: To be done morning of Heart CathHEPATIC FUNCTION [id number] 06:03:00* Test Item Value Reference Range Comments TOTAL PROTEIN (test code=PROT) g/dL 6.4-8.2 ALBUMIN (test code=ALB) 1.40 g/dL 3.4-5.0 BILIRUBIN TOTAL (test code=BILT) mg/dL 0.0-1.0 BILIRUBIN DIRECT (test code=BILD) 1.70 MG/DL 0.0-0.30 SGOT/AST (test code=AST) 113 IUnit/L 15-37 SGPT/ALT (test code=ALT) 70 IUnit/L 15-65 ALKALINE PHOSPHATASE TOTAL (test code=ALKP) IUnit/L 20-125 COMMENTS: To be done morning of Heart [id number] 06:03:00* Test Item Value Reference Range Comments PHOSPHOROUS (test code=PHOS) 1.9 mg/dL 2.5-4.9 COMMENTS: To be done morning of Heart [id number] 06:03:00* Test Item Value Reference Range Comments MAGNESIUM (test code=MAG) 1.80 mg/dL 1.8-2.4 COMMENTS: To be done morning of Heart CathCBC W/AUTO [id number] 05:51:00* Test Item Value Reference Range Comments WHITE BLOOD CELL (test code=WBC) 10.44 x10 3/uL 4.5-11.0 RED BLOOD CELL (test code=RBC) 2.51 x10 6/uL 3.54-5.02 HEMOGLOBIN (test code=HGB) 7.5 g/dL 11.0-15.0 HEMATOCRIT (test code=HCT) 23.6 % 33.0-45.0 MEAN CELL VOLUME (test code=MCV) 94.0 fL 81.0-99.0 MEAN CELL HGB (test code=MCH) 29.9 pg 27.0-33.0 MEAN CELL HGB CONCETRATION (test code=MCHC) 31.8 g/dL 33.0-37.0 RED CELL DISTRIBUTION WIDTH CV (test code=RDW) 16.5 % 11.5-14.5 RED CELL DISTRIBUTION WIDTH SD (test code=RDW-SD) 54.8 fL 37.0-54.0 PLATELET COUNT (test code=PLT) 38 x10 3/uL 150-400 MEAN PLATELET VOLUME (test code=MPV) 12.6 fL 7.0-9.0 LYMPHOCYTE % (test code=LY%) % 14.0-32.0 MANUAL DIFF REQUIRED (test code=MDIFF) COMMENTS: To be done morning of Heart [id number] 00:01:00* Test Item Value Reference Range Comments GLUBED (test code=GLUBED) 130 MG/DL 70-110 Performed by certified traffic control operator at [facility] [id number] 18:08:00* Test Item Value Reference Range Comments GLUBED (test code=GLUBED) 128 MG/DL 70-110 Performed by certified traffic control operator at [facility] CBC W/AUTO [id number] 14:27:00* Test Item Value Reference Range Comments WHITE BLOOD CELL (test code=WBC) 9.23 x10 3/uL 4.5-11.0 RED BLOOD CELL (test code=RBC) 2.64 x10 6/uL 3.54-5.02 HEMOGLOBIN (test code=HGB) 8.0 g/dL 11.0-15.0 HEMATOCRIT (test code=HCT) 24.7 % 33.0-45.0 MEAN CELL VOLUME (test code=MCV) 93.6 fL 81.0-99.0 MEAN CELL HGB (test code=MCH) 30.3 pg 27.0-33.0 MEAN CELL HGB CONCETRATION (test code=MCHC) 32.4 g/dL 33.0-37.0 RED CELL DISTRIBUTION WIDTH CV (test code=RDW) 16.2 % 11.5-14.5 RED CELL DISTRIBUTION WIDTH SD (test code=RDW-SD) 55.5 fL 37.0-54.0 PLATELET COUNT (test code=PLT) 26 x10 3/uL 150-400 IMMATURE PLATELET FRACTION (test code=IPF) 14.0 % 0.9-11.2 MEAN PLATELET VOLUME (test code=MPV) 12.9 fL 7.0-9.0 NEUTROPHIL % (test code=NT%) 92.3 % 56.0-77.0 IMMATURE GRANULOCYTE % (test code=IG%) 0.8 % 0.0-2.0 LYMPHOCYTE % (test code=LY%) 3.0 % 14.0-32.0 MONOCYTE % (test code=MO%) 3.5 % 4.8-9.0 EOSINOPHIL % (test code=EO%) 0.3 % 0.3-3.7 BASOPHIL % (test code=BA%) 0.1 % 0.0-2.0 NUCLEATED RBC % (test code=NRBC%) 0.3 % 0-0 NEUTROPHIL # (test code=NT#) 8.52 x10 3/uL 2.0-7.6 IMMATURE GRANULOCYTE # (test code=IG#) 0.07 x10 3/uL 0.00-0.03 LYMPHOCYTE # (test code=LY#) 0.28 x10 3/uL 1.0-3.8 MONOCYTE # (test code=MO#) 0.32 x10 3/uL 0.1-0.8 EOSINOPHIL # (test code=EO#) 0.03 x10 3/uL 0.0-0.2 BASOPHIL # (test code=BA#) 0.01 x10 3/uL 0.0-0.2 NUCLEATED RBC # (test code=NRBC#) 0.03 x10 3/uL 0.0-0.1 MANUAL DIFF REQUIRED (test code=MDIFF) NO SLIDE REVIEWED, CONSISTENT WITH AUTO DIFF. COMMENTS: Daily while in [id number] 12:45:00* Test Item Value Reference Range Comments GLUBED (test code=GLUBED) 125 MG/DL 70-110 Performed by certified traffic control operator at [facility] CBC W/AUTO [id number] 10:40:00* Test Item Value Reference Range Comments WHITE BLOOD CELL (test code=WBC) 9.23 x10 3/uL 4.5-11.0 RED BLOOD CELL (test code=RBC) 2.64 x10 6/uL 3.54-5.02 HEMOGLOBIN (test code=HGB) 8.0 g/dL 11.0-15.0 HEMATOCRIT (test code=HCT) 24.7 % 33.0-45.0 MEAN CELL VOLUME (test code=MCV) 93.6 fL 81.0-99.0 MEAN CELL HGB (test code=MCH) 30.3 pg 27.0-33.0 MEAN CELL HGB CONCETRATION (test code=MCHC) 32.4 g/dL 33.0-37.0 RED CELL DISTRIBUTION WIDTH CV (test code=RDW) 16.2 % 11.5-14.5 RED CELL DISTRIBUTION WIDTH SD (test code=RDW-SD) 55.5 fL 37.0-54.0 PLATELET COUNT (test code=PLT) 26 x10 3/uL 150-400 IMMATURE PLATELET FRACTION (test code=IPF) 14.0 % 0.9-11.2 MEAN PLATELET VOLUME (test code=MPV) 12.9 fL 7.0-9.0 LYMPHOCYTE % (test code=LY%) % 14.0-32.0 MANUAL DIFF REQUIRED (test code=MDIFF) NO SLIDE REVIEWED, CONSISTENT WITH AUTO DIFF. COMMENTS: [facility] [id number] 07:23:00* Test Item Value Reference Range Comments WHITE BLOOD CELL (test code=WBC) 9.23 x10 3/uL 4.5-11.0 RED BLOOD CELL (test code=RBC) 2.64 x10 6/uL 3.54-5.02 HEMOGLOBIN (test code=HGB) 8.0 g/dL 11.0-15.0 HEMATOCRIT (test code=HCT) 24.7 % 33.0-45.0 MEAN CELL VOLUME (test code=MCV) 93.6 fL 81.0-99.0 MEAN CELL HGB (test code=MCH) 30.3 pg 27.0-33.0 MEAN CELL HGB CONCETRATION (test code=MCHC) 32.4 g/dL 33.0-37.0 RED CELL DISTRIBUTION WIDTH CV (test code=RDW) 16.2 % 11.5-14.5 RED CELL DISTRIBUTION WIDTH SD (test code=RDW-SD) 55.5 fL 37.0-54.0 PLATELET COUNT (test code=PLT) 26 x10 3/uL 150-400 IMMATURE PLATELET FRACTION (test code=IPF) 14.0 % 0.9-11.2 MEAN PLATELET VOLUME (test code=MPV) 12.9 fL 7.0-9.0 LYMPHOCYTE % (test code=LY%) % 14.0-32.0 MANUAL DIFF REQUIRED (test code=MDIFF) COMMENTS: Daily while in ICUBASIC METABOLIC [id number] 07:17:00* Test Item Value Reference Range Comments SODIUM (test code=NA) 142 mEq/L 134-147 POTASSIUM (test code=K) 3.2 mEq/L 3.4-5.0 CHLORIDE (test code=CL) 108 mEq/L 100-108 CARBON DIOXIDE (test code=CO2) 29 mEq/L 21-33 ANION GAP (test code=GAP) 8 0-20 GLUCOSE (test code=GLU) 143 mg/dL 70-110 BLOOD UREA NITROGEN (test code=BUN) 30 mg/dL 7-18 GLOMERULAR FILTRATION RATE (test code=GFR) 63.9 80-90 Units of measure=ml/min/1.73 m2 CREATININE (test code=CREAT) 0.9 mg/dL 0.6-1.3 CALCIUM (test code=CA) 8.1 mg/dL 8.0-10.5 COMMENTS: Daily while in ICUHEPATIC FUNCTION [id number] 07:17:00* Test Item Value Reference Range Comments TOTAL PROTEIN (test code=PROT) 4.4 g/dL 6.4-8.2 ALBUMIN (test code=ALB) 1.50 g/dL 3.4-5.0 BILIRUBIN TOTAL (test code=BILT) 2.20 mg/dL 0.0-1.0 BILIRUBIN DIRECT (test code=BILD) 1.70 MG/DL 0.0-0.30 BILIRUBIN INDIRECT (test code=BILIND) 0.50 MG/DL SGOT/AST (test code=AST) 92 IUnit/L 15-37 SGPT/ALT (test code=ALT) 60 IUnit/L 15-65 ALKALINE PHOSPHATASE TOTAL (test code=ALKP) 134 IUnit/L 20-125 COMMENTS: Daily while in [id number] 07:17:00* Test Item Value Reference Range Comments PHOSPHOROUS (test code=PHOS) 1.8 mg/dL 2.5-4.9 COMMENTS: Daily while in [id number] 07:17:00* Test Item Value Reference Range Comments MAGNESIUM (test code=MAG) 2.00 mg/dL 1.8-2.4 COMMENTS: Daily while in ICUBASIC METABOLIC [id number] 07:16:00* Test Item Value Reference Range Comments SODIUM (test code=NA) 142 mEq/L 134-147 POTASSIUM (test code=K) 3.2 mEq/L 3.4-5.0 CHLORIDE (test code=CL) 108 mEq/L 100-108 CARBON DIOXIDE (test code=CO2) 29 mEq/L 21-33 ANION GAP (test code=GAP) 8 0-20 GLUCOSE (test code=GLU) 143 mg/dL 70-110 BLOOD UREA NITROGEN (test code=BUN) 30 mg/dL 7-18 GLOMERULAR FILTRATION RATE (test code=GFR) 63.9 80-90 Units of measure=ml/min/1.73 m2 CREATININE (test code=CREAT) 0.9 mg/dL 0.6-1.3 CALCIUM (test code=CA) 8.1 mg/dL 8.0-10.5 COMMENTS: Daily while in ICUHEPATIC FUNCTION [id number] 07:16:00* Test Item Value Reference Range Comments TOTAL PROTEIN (test code=PROT) 4.4 g/dL 6.4-8.2 ALBUMIN (test code=ALB) 1.50 g/dL 3.4-5.0 BILIRUBIN TOTAL (test code=BILT) mg/dL 0.0-1.0 BILIRUBIN DIRECT (test code=BILD) 1.70 MG/DL 0.0-0.30 SGOT/AST (test code=AST) 92 IUnit/L 15-37 SGPT/ALT (test code=ALT) 60 IUnit/L 15-65 ALKALINE PHOSPHATASE TOTAL (test code=ALKP) IUnit/L 20-125 COMMENTS: Daily while in [id number] 07:16:00* Test Item Value Reference Range Comments PHOSPHOROUS (test code=PHOS) 1.8 mg/dL 2.5-4.9 COMMENTS: Daily while in [id number] 07:16:00* Test Item Value Reference Range Comments MAGNESIUM (test code=MAG) 2.00 mg/dL 1.8-2.4 COMMENTS: Daily while in [id number] 06:08:00* Test Item Value Reference Range Comments GLUBED (test code=GLUBED) 138 MG/DL 70-110 Performed by certified traffic control operator at [facility] [id number] 00:16:00* Test Item Value Reference Range Comments GLUBED (test code=GLUBED) 144 MG/DL 70-110 Performed by certified traffic control operator at [facility] [id number] 19:47:00* Test Item Value Reference Range Comments POTASSIUM (test code=K) 3.1 mEq/L 3.4-5.0 [id number] 18:03:00* Test Item Value Reference Range Comments GLUBED (test code=GLUBED) 120 MG/DL 70-110 Performed by certified traffic control operator at [facility] CBC W/AUTO [id number] 12:48:00* Test Item Value Reference Range Comments WHITE BLOOD CELL (test code=WBC) 8.08 x10 3/uL 4.5-11.0 RED BLOOD CELL (test code=RBC) 3.42 x10 6/uL 3.54-5.02 HEMOGLOBIN (test code=HGB) 10.2 g/dL 11.0-15.0 HEMATOCRIT (test code=HCT) 31.6 % 33.0-45.0 MEAN CELL VOLUME (test code=MCV) 92.4 fL 81.0-99.0 MEAN CELL HGB (test code=MCH) 29.8 pg 27.0-33.0 MEAN CELL HGB CONCETRATION (test code=MCHC) 32.3 g/dL 33.0-37.0 RED CELL DISTRIBUTION WIDTH CV (test code=RDW) 15.9 % 11.5-14.5 RED CELL DISTRIBUTION WIDTH SD (test code=RDW-SD) 54.1 fL 37.0-54.0 PLATELET COUNT (test code=PLT) 28 x10 3/uL 150-400 IMMATURE PLATELET FRACTION (test code=IPF) 9.7 % 0.9-11.2 MEAN PLATELET VOLUME (test code=MPV) 11.8 fL 7.0-9.0 NEUTROPHIL % (test code=NT%) 89.1 % 56.0-77.0 IMMATURE GRANULOCYTE % (test code=IG%) 1.2 % 0.0-2.0 LYMPHOCYTE % (test code=LY%) 4.2 % 14.0-32.0 MONOCYTE % (test code=MO%) 5.2 % 4.8-9.0 EOSINOPHIL % (test code=EO%) 0.1 % 0.3-3.7 BASOPHIL % (test code=BA%) 0.2 % 0.0-2.0 NUCLEATED RBC % (test code=NRBC%) 0.9 % 0-0 NEUTROPHIL # (test code=NT#) 7.19 x10 3/uL 2.0-7.6 IMMATURE GRANULOCYTE # (test code=IG#) 0.10 x10 3/uL 0.00-0.03 LYMPHOCYTE # (test code=LY#) 0.34 x10 3/uL 1.0-3.8 MONOCYTE # (test code=MO#) 0.42 x10 3/uL 0.1-0.8 EOSINOPHIL # (test code=EO#) 0.01 x10 3/uL 0.0-0.2 BASOPHIL # (test code=BA#) 0.02 x10 3/uL 0.0-0.2 NUCLEATED RBC # (test code=NRBC#) 0.07 x10 3/uL 0.0-0.1 MANUAL DIFF REQUIRED (test code=MDIFF) NO COMMENTS: Daily while in ICUPLT [id number] 12:48:00* Test Item Value Reference Range Comments PLATELET ESTIMATE (test code=PLTEST) 32-40 THOUSAND ADEQUATE PLATELET MORPHOLOGY (test code=PLTMORPH) GIANT PLATELETS COMMENTS: Daily while in [id number] 12:07:00* Test Item Value Reference Range Comments GLUBED (test code=GLUBED) 142 MG/DL 70-110 Performed by certified traffic control operator at [facility] - XR CHEST 1 [id number] 07:13:00 FAX: Jordy Martinez DO [phone] [place]: St: ADM FAX: Alexsandra Barron MD [phone] FAX: Dwayne Millan [phone] Name: HEIDI STEINER [facility] : 1960 Age/S: 58/F [address] [place] [address] Unit #: [id number] Loc: G.M324 [place] [address] Phys: Alexsandra Barron MD Acct: [id number] Dis Date: Status: ADM IN ONE #: [phone] Exam Date: 12/18/2018523 FAX #: [phone] Reason: ETT EXAMS: CPT CODE: [id number] XR CHEST 1 V 15694 - XR CHEST 1 V 12/18/2018 5:00 AM Ordering Physician: MD Nora Morales LINICAL HISTORY: Intubation; TECHNIQUE: A single AP view of the c hest was obtained. COMPARISON: December 17, 2018. FINDIN GS: Small left pleural effusion is seen. Perihilar hazy densitie s continue to resolve. No radiographically detectable pneumothorax is present. The heart is normal in size. Interval extubation and removal of the NG tube are noted. Left subclavian portacatheter remains in place. Right internal jugular central venous catheter tip is at the S VC. No acute osseous abnormality is evident. IMPR ESSION: 1. Interval extubation and removal of NG tube. 2. Improving pulmonary edema. SL: CY-H at 07 13 Reported and signed by: Jordy Sue M.D. CC: Saul Gambino DO; Alexsandra Barron MD; Joycelyn Person MD Technologist: Laura gilliland, RT(R); Wendi Larose RT(R) Trnscrd Date/Time/By: 12/18/2018 (0713 ) : By: [email or web address] Orig Print D/T: S: 12/18/2018 (0716) PAGE 1 Signed Report BASIC METABOLIC [id number] 06:27:00* Test Item Value Reference Range Comments SODIUM (test code=NA) 143 mEq/L 134-147 POTASSIUM (test code=K) 2.8 mEq/L 3.4-5.0 CHLORIDE (test code=CL) 108 mEq/L 100-108 CARBON DIOXIDE (test code=CO2) 31 mEq/L 21-33 ANION GAP (test code=GAP) 7 0-20 GLUCOSE (test code=GLU) 134 mg/dL 70-110 BLOOD UREA NITROGEN (test code=BUN) 31 mg/dL 7-18 GLOMERULAR FILTRATION RATE (test code=GFR) 50.7 80-90 Units of measure=ml/min/1.73 m2 CREATININE (test code=CREAT) 1.1 mg/dL 0.6-1.3 CALCIUM (test code=CA) 7.8 mg/dL 8.0-10.5 COMMENTS: Daily while in ICUHEPATIC FUNCTION [id number] 06:27:00* Test Item Value Reference Range Comments TOTAL PROTEIN (test code=PROT) 4.5 g/dL 6.4-8.2 ALBUMIN (test code=ALB) 1.70 g/dL 3.4-5.0 BILIRUBIN TOTAL (test code=BILT) 2.40 mg/dL 0.0-1.0 BILIRUBIN DIRECT (test code=BILD) 1.80 MG/DL 0.0-0.30 BILIRUBIN INDIRECT (test code=BILIND) 0.60 MG/DL SGOT/AST (test code=AST) 100 IUnit/L 15-37 SGPT/ALT (test code=ALT) 63 IUnit/L 15-65 ALKALINE PHOSPHATASE TOTAL (test code=ALKP) 146 IUnit/L 20-125 COMMENTS: Daily while in [id number] 06:27:00* Test Item Value Reference Range Comments PHOSPHOROUS (test code=PHOS) 2.6 mg/dL 2.5-4.9 COMMENTS: Daily while in [id number] 06:27:00* Test Item Value Reference Range Comments MAGNESIUM (test code=MAG) 1.60 mg/dL 1.8-2.4 COMMENTS: Daily while in ICUCBC W/AUTO [id number] 06:14:00* Test Item Value Reference Range Comments WHITE BLOOD CELL (test code=WBC) 8.08 x10 3/uL 4.5-11.0 RED BLOOD CELL (test code=RBC) 3.42 x10 6/uL 3.54-5.02 HEMOGLOBIN (test code=HGB) 10.2 g/dL 11.0-15.0 HEMATOCRIT (test code=HCT) 31.6 % 33.0-45.0 MEAN CELL VOLUME (test code=MCV) 92.4 fL 81.0-99.0 MEAN CELL HGB (test code=MCH) 29.8 pg 27.0-33.0 MEAN CELL HGB CONCETRATION (test code=MCHC) 32.3 g/dL 33.0-37.0 RED CELL DISTRIBUTION WIDTH CV (test code=RDW) 15.9 % 11.5-14.5 RED CELL DISTRIBUTION WIDTH SD (test code=RDW-SD) 54.1 fL 37.0-54.0 PLATELET COUNT (test code=PLT) 28 x10 3/uL 150-400 IMMATURE PLATELET FRACTION (test code=IPF) 9.7 % 0.9-11.2 MEAN PLATELET VOLUME (test code=MPV) 11.8 fL 7.0-9.0 NEUTROPHIL % (test code=NT%) 89.1 % 56.0-77.0 IMMATURE GRANULOCYTE % (test code=IG%) 1.2 % 0.0-2.0 LYMPHOCYTE % (test code=LY%) 4.2 % 14.0-32.0 MONOCYTE % (test code=MO%) 5.2 % 4.8-9.0 EOSINOPHIL % (test code=EO%) 0.1 % 0.3-3.7 BASOPHIL % (test code=BA%) 0.2 % 0.0-2.0 NUCLEATED RBC % (test code=NRBC%) 0.9 % 0-0 NEUTROPHIL # (test code=NT#) 7.19 x10 3/uL 2.0-7.6 IMMATURE GRANULOCYTE # (test code=IG#) 0.10 x10 3/uL 0.00-0.03 LYMPHOCYTE # (test code=LY#) 0.34 x10 3/uL 1.0-3.8 MONOCYTE # (test code=MO#) 0.42 x10 3/uL 0.1-0.8 EOSINOPHIL # (test code=EO#) 0.01 x10 3/uL 0.0-0.2 BASOPHIL # (test code=BA#) 0.02 x10 3/uL 0.0-0.2 NUCLEATED RBC # (test code=NRBC#) 0.07 x10 3/uL 0.0-0.1 MANUAL DIFF REQUIRED (test code=MDIFF) NO COMMENTS: Daily while in ICUPLT [id number] 06:14:00* Test Item Value Reference Range Comments PLATELET ESTIMATE (test code=PLTEST) THOUSAND ADEQUATE COMMENTS: Daily while in ICUCBC W/AUTO [id number] 06:14:00* Test Item Value Reference Range Comments WHITE BLOOD CELL (test code=WBC) 8.08 x10 3/uL 4.5-11.0 RED BLOOD CELL (test code=RBC) 3.42 x10 6/uL 3.54-5.02 HEMOGLOBIN (test code=HGB) 10.2 g/dL 11.0-15.0 HEMATOCRIT (test code=HCT) 31.6 % 33.0-45.0 MEAN CELL VOLUME (test code=MCV) 92.4 fL 81.0-99.0 MEAN CELL HGB (test code=MCH) 29.8 pg 27.0-33.0 MEAN CELL HGB CONCETRATION (test code=MCHC) 32.3 g/dL 33.0-37.0 RED CELL DISTRIBUTION WIDTH CV (test code=RDW) 15.9 % 11.5-14.5 RED CELL DISTRIBUTION WIDTH SD (test code=RDW-SD) 54.1 fL 37.0-54.0 PLATELET COUNT (test code=PLT) 28 x10 3/uL 150-400 IMMATURE PLATELET FRACTION (test code=IPF) 9.7 % 0.9-11.2 MEAN PLATELET VOLUME (test code=MPV) 11.8 fL 7.0-9.0 NEUTROPHIL % (test code=NT%) 89.1 % 56.0-77.0 IMMATURE GRANULOCYTE % (test code=IG%) 1.2 % 0.0-2.0 LYMPHOCYTE % (test code=LY%) 4.2 % 14.0-32.0 MONOCYTE % (test code=MO%) 5.2 % 4.8-9.0 EOSINOPHIL % (test code=EO%) 0.1 % 0.3-3.7 BASOPHIL % (test code=BA%) 0.2 % 0.0-2.0 NUCLEATED RBC % (test code=NRBC%) 0.9 % 0-0 NEUTROPHIL # (test code=NT#) 7.19 x10 3/uL 2.0-7.6 IMMATURE GRANULOCYTE # (test code=IG#) 0.10 x10 3/uL 0.00-0.03 LYMPHOCYTE # (test code=LY#) 0.34 x10 3/uL 1.0-3.8 MONOCYTE # (test code=MO#) 0.42 x10 3/uL 0.1-0.8 EOSINOPHIL # (test code=EO#) 0.01 x10 3/uL 0.0-0.2 BASOPHIL # (test code=BA#) 0.02 x10 3/uL 0.0-0.2 NUCLEATED RBC # (test code=NRBC#) 0.07 x10 3/uL 0.0-0.1 MANUAL DIFF REQUIRED (test code=MDIFF) NO COMMENTS: Daily while in ICUPLT [id number] 06:14:00* Test Item Value Reference Range Comments PLATELET ESTIMATE (test code=PLTEST) THOUSAND ADEQUATE COMMENTS: Daily while in [id number] 06:05:00* Test Item Value Reference Range Comments GLUBED (test code=GLUBED) 126 MG/DL 70-110 Performed by certified traffic control operator at [facility] [id number] 00:16:00* Test Item Value Reference Range Comments GLUBED (test code=GLUBED) 128 MG/DL 70-110 Performed by certified traffic control operator at [facility] [id number] 18:13:00* Test Item Value Reference Range Comments GLUBED (test code=GLUBED) 120 MG/DL 70-110 Performed by certified traffic control operator at [facility] CBC W/AUTO [id number] 12:53:00* Test Item Value Reference Range Comments WHITE BLOOD CELL (test code=WBC) 10.03 x10 3/uL 4.5-11.0 RED BLOOD CELL (test code=RBC) 3.53 x10 6/uL 3.54-5.02 HEMOGLOBIN (test code=HGB) 10.5 g/dL 11.0-15.0 HEMATOCRIT (test code=HCT) 31.7 % 33.0-45.0 MEAN CELL VOLUME (test code=MCV) 89.8 fL 81.0-99.0 MEAN CELL HGB (test code=MCH) 29.7 pg 27.0-33.0 MEAN CELL HGB CONCETRATION (test code=MCHC) 33.1 g/dL 33.0-37.0 RED CELL DISTRIBUTION WIDTH CV (test code=RDW) 16.4 % 11.5-14.5 RED CELL DISTRIBUTION WIDTH SD (test code=RDW-SD) 53.4 fL 37.0-54.0 PLATELET COUNT (test code=PLT) x10 3/uL 150-400 SEE PLT EST. MEAN PLATELET VOLUME (test code=MPV) 10.4 fL 7.0-9.0 NEUTROPHIL % (test code=NT%) 89.2 % 56.0-77.0 IMMATURE GRANULOCYTE % (test code=IG%) 1.7 % 0.0-2.0 LYMPHOCYTE % (test code=LY%) 2.5 % 14.0-32.0 MONOCYTE % (test code=MO%) 6.4 % 4.8-9.0 EOSINOPHIL % (test code=EO%) 0.0 % 0.3-3.7 BASOPHIL % (test code=BA%) 0.2 % 0.0-2.0 NUCLEATED RBC % (test code=NRBC%) 1.7 % 0-0 NEUTROPHIL # (test code=NT#) 8.95 x10 3/uL 2.0-7.6 IMMATURE GRANULOCYTE # (test code=IG#) 0.17 x10 3/uL 0.00-0.03 LYMPHOCYTE # (test code=LY#) 0.25 x10 3/uL 1.0-3.8 MONOCYTE # (test code=MO#) 0.64 x10 3/uL 0.1-0.8 EOSINOPHIL # (test code=EO#) 0.00 x10 3/uL 0.0-0.2 BASOPHIL # (test code=BA#) 0.02 x10 3/uL 0.0-0.2 NUCLEATED RBC # (test code=NRBC#) 0.17 x10 3/uL 0.0-0.1 MANUAL DIFF REQUIRED (test code=MDIFF) NO SLIDE REVIEWED, CONSISTENT WITH AUTO DIFF. COMMENTS: Daily while in ICUPLT [id number] 12:53:00* Test Item Value Reference Range Comments PLATELET ESTIMATE (test code=PLTEST) 44-55 THOUSAND ADEQUATE PLATELET MORPHOLOGY (test code=PLTMORPH) LARGE PLATELETS COMMENTS: Daily while in ICUCBC W/AUTO [id number] 12:52:00* Test Item Value Reference Range Comments WHITE BLOOD CELL (test code=WBC) 10.03 x10 3/uL 4.5-11.0 RED BLOOD CELL (test code=RBC) 3.53 x10 6/uL 3.54-5.02 HEMOGLOBIN (test code=HGB) 10.5 g/dL 11.0-15.0 HEMATOCRIT (test code=HCT) 31.7 % 33.0-45.0 MEAN CELL VOLUME (test code=MCV) 89.8 fL 81.0-99.0 MEAN CELL HGB (test code=MCH) 29.7 pg 27.0-33.0 MEAN CELL HGB CONCETRATION (test code=MCHC) 33.1 g/dL 33.0-37.0 RED CELL DISTRIBUTION WIDTH CV (test code=RDW) 16.4 % 11.5-14.5 RED CELL DISTRIBUTION WIDTH SD (test code=RDW-SD) 53.4 fL 37.0-54.0 PLATELET COUNT (test code=PLT) x10 3/uL 150-400 SEE PLT EST. MEAN PLATELET VOLUME (test code=MPV) 10.4 fL 7.0-9.0 NEUTROPHIL % (test code=NT%) 89.2 % 56.0-77.0 IMMATURE GRANULOCYTE % (test code=IG%) 1.7 % 0.0-2.0 LYMPHOCYTE % (test code=LY%) 2.5 % 14.0-32.0 MONOCYTE % (test code=MO%) 6.4 % 4.8-9.0 EOSINOPHIL % (test code=EO%) 0.0 % 0.3-3.7 BASOPHIL % (test code=BA%) 0.2 % 0.0-2.0 NUCLEATED RBC % (test code=NRBC%) 1.7 % 0-0 NEUTROPHIL # (test code=NT#) 8.95 x10 3/uL 2.0-7.6 IMMATURE GRANULOCYTE # (test code=IG#) 0.17 x10 3/uL 0.00-0.03 LYMPHOCYTE # (test code=LY#) 0.25 x10 3/uL 1.0-3.8 MONOCYTE # (test code=MO#) 0.64 x10 3/uL 0.1-0.8 EOSINOPHIL # (test code=EO#) 0.00 x10 3/uL 0.0-0.2 BASOPHIL # (test code=BA#) 0.02 x10 3/uL 0.0-0.2 NUCLEATED RBC # (test code=NRBC#) 0.17 x10 3/uL 0.0-0.1 MANUAL DIFF REQUIRED (test code=MDIFF) NO SLIDE REVIEWED, CONSISTENT WITH AUTO DIFF. COMMENTS: Daily while in ICUPLT [id number] 12:52:00* Test Item Value Reference Range Comments PLATELET ESTIMATE (test code=PLTEST) THOUSAND ADEQUATE COMMENTS: Daily while in ICUCBC W/AUTO [id number] 12:52:00* Test Item Value Reference Range Comments WHITE BLOOD CELL (test code=WBC) 10.03 x10 3/uL 4.5-11.0 RED BLOOD CELL (test code=RBC) 3.53 x10 6/uL 3.54-5.02 HEMOGLOBIN (test code=HGB) 10.5 g/dL 11.0-15.0 HEMATOCRIT (test code=HCT) 31.7 % 33.0-45.0 MEAN CELL VOLUME (test code=MCV) 89.8 fL 81.0-99.0 MEAN CELL HGB (test code=MCH) 29.7 pg 27.0-33.0 MEAN CELL HGB CONCETRATION (test code=MCHC) 33.1 g/dL 33.0-37.0 RED CELL DISTRIBUTION WIDTH CV (test code=RDW) 16.4 % 11.5-14.5 RED CELL DISTRIBUTION WIDTH SD (test code=RDW-SD) 53.4 fL 37.0-54.0 PLATELET COUNT (test code=PLT) x10 3/uL 150-400 SEE PLT EST. MEAN PLATELET VOLUME (test code=MPV) 10.4 fL 7.0-9.0 NEUTROPHIL % (test code=NT%) 89.2 % 56.0-77.0 IMMATURE GRANULOCYTE % (test code=IG%) 1.7 % 0.0-2.0 LYMPHOCYTE % (test code=LY%) 2.5 % 14.0-32.0 MONOCYTE % (test code=MO%) 6.4 % 4.8-9.0 EOSINOPHIL % (test code=EO%) 0.0 % 0.3-3.7 BASOPHIL % (test code=BA%) 0.2 % 0.0-2.0 NUCLEATED RBC % (test code=NRBC%) 1.7 % 0-0 NEUTROPHIL # (test code=NT#) 8.95 x10 3/uL 2.0-7.6 IMMATURE GRANULOCYTE # (test code=IG#) 0.17 x10 3/uL 0.00-0.03 LYMPHOCYTE # (test code=LY#) 0.25 x10 3/uL 1.0-3.8 MONOCYTE # (test code=MO#) 0.64 x10 3/uL 0.1-0.8 EOSINOPHIL # (test code=EO#) 0.00 x10 3/uL 0.0-0.2 BASOPHIL # (test code=BA#) 0.02 x10 3/uL 0.0-0.2 NUCLEATED RBC # (test code=NRBC#) 0.17 x10 3/uL 0.0-0.1 MANUAL DIFF REQUIRED (test code=MDIFF) NO SLIDE REVIEWED, CONSISTENT WITH AUTO DIFF. COMMENTS: Daily while in ICUPLT [id number] 12:52:00* Test Item Value Reference Range Comments PLATELET ESTIMATE (test code=PLTEST) THOUSAND ADEQUATE COMMENTS: Daily while in ICUCBC W/AUTO [id number] 12:50:00* Test Item Value Reference Range Comments WHITE BLOOD CELL (test code=WBC) 10.03 x10 3/uL 4.5-11.0 RED BLOOD CELL (test code=RBC) 3.53 x10 6/uL 3.54-5.02 HEMOGLOBIN (test code=HGB) 10.5 g/dL 11.0-15.0 HEMATOCRIT (test code=HCT) 31.7 % 33.0-45.0 MEAN CELL VOLUME (test code=MCV) 89.8 fL 81.0-99.0 MEAN CELL HGB (test code=MCH) 29.7 pg 27.0-33.0 MEAN CELL HGB CONCETRATION (test code=MCHC) 33.1 g/dL 33.0-37.0 RED CELL DISTRIBUTION WIDTH CV (test code=RDW) 16.4 % 11.5-14.5 RED CELL DISTRIBUTION WIDTH SD (test code=RDW-SD) 53.4 fL 37.0-54.0 PLATELET COUNT (test code=PLT) x10 3/uL 150-400 SEE PLT EST. MEAN PLATELET VOLUME (test code=MPV) 10.4 fL 7.0-9.0 NEUTROPHIL % (test code=NT%) 89.2 % 56.0-77.0 IMMATURE GRANULOCYTE % (test code=IG%) 1.7 % 0.0-2.0 LYMPHOCYTE % (test code=LY%) 2.5 % 14.0-32.0 MONOCYTE % (test code=MO%) 6.4 % 4.8-9.0 EOSINOPHIL % (test code=EO%) 0.0 % 0.3-3.7 BASOPHIL % (test code=BA%) 0.2 % 0.0-2.0 NUCLEATED RBC % (test code=NRBC%) 1.7 % 0-0 NEUTROPHIL # (test code=NT#) 8.95 x10 3/uL 2.0-7.6 IMMATURE GRANULOCYTE # (test code=IG#) 0.17 x10 3/uL 0.00-0.03 LYMPHOCYTE # (test code=LY#) 0.25 x10 3/uL 1.0-3.8 MONOCYTE # (test code=MO#) 0.64 x10 3/uL 0.1-0.8 EOSINOPHIL # (test code=EO#) 0.00 x10 3/uL 0.0-0.2 BASOPHIL # (test code=BA#) 0.02 x10 3/uL 0.0-0.2 NUCLEATED RBC # (test code=NRBC#) 0.17 x10 3/uL 0.0-0.1 MANUAL DIFF REQUIRED (test code=MDIFF) NO SLIDE REVIEWED, CONSISTENT WITH AUTO DIFF. COMMENTS: Daily while in [id number] 11:41:00* Test Item Value Reference Range Comments GLUBED (test code=GLUBED) 151 MG/DL 70-110 Performed by certified traffic control operator at [facility] - XR CHEST 1 [id number] 07:28:00 FAX: Jordy Maritnez DO [phone] [place]: St: ADM FAX: Alexsandra Barron MD [phone] FAX: Dwayne Millan [phone] Name: HEIDI STEINER [facility] : 1960 Age/S: 58/F [address] [place] [address] Unit #: [id number] Loc: G.M324 [place] [address] Phys: Alexsandra Barron MD Acct: [id number] Dis Date: Status: ADM IN PH ONE #: [phone] Exam Date: 12/17/2018 0532 FAX #: [phone] Reason: ETT EXAMS: CPT CODE: [id number] XR CHEST 1 V 66119 - XR CHEST 1 V 12/17/2018 5:00 AM Ordering Physician: MD Nora Morales LINICAL HISTORY: Intubation; TECHNIQUE: A single AP view of the c hest was obtained. COMPARISON: December 16, 2017. FINDIN GS: Bilateral perihilar densities have slightly diminished in the interval time period small bilateral pleural effusions are seen. No radiographically detectable pneumothorax is present. The heart is normal in size. Support lines and tubes are unchanged in positions. No acute osseous abnormality is evident. IMPRESSION: 1. Slight improvement in bilateral perihilar densities. SL: CY-H at 0791 Reported and s igned by: Jordy Sue M.D. CC: Jordy Gambino DO; Alexsandra Barron MD; Enoch Person MD Technologist: Elvis Jang; Malcolm Lima, RT(R) Trnscrd Date/Time/By: 12/17/2018 (0728) : By: [email or web address] Orig Print D/T: S: 12/17/2018 (0747) PAGE 1 Signed Report CBC W/AUTO [id number] 06:50:00* Test Item Value Reference Range Comments WHITE BLOOD CELL (test code=WBC) 10.03 x10 3/uL 4.5-11.0 RED BLOOD CELL (test code=RBC) 3.53 x10 6/uL 3.54-5.02 HEMOGLOBIN (test code=HGB) 10.5 g/dL 11.0-15.0 HEMATOCRIT (test code=HCT) 31.7 % 33.0-45.0 MEAN CELL VOLUME (test code=MCV) 89.8 fL 81.0-99.0 MEAN CELL HGB (test code=MCH) 29.7 pg 27.0-33.0 MEAN CELL HGB CONCETRATION (test code=MCHC) 33.1 g/dL 33.0-37.0 RED CELL DISTRIBUTION WIDTH CV (test code=RDW) 16.4 % 11.5-14.5 RED CELL DISTRIBUTION WIDTH SD (test code=RDW-SD) 53.4 fL 37.0-54.0 PLATELET COUNT (test code=PLT) x10 3/uL 150-400 SEE PLT EST. MEAN PLATELET VOLUME (test code=MPV) 10.4 fL 7.0-9.0 LYMPHOCYTE % (test code=LY%) % 14.0-32.0 MANUAL DIFF REQUIRED (test code=MDIFF) COMMENTS: Daily while in ICUBASIC METABOLIC [id number] 06:50:00* Test Item Value Reference Range Comments SODIUM (test code=NA) 143 mEq/L 134-147 POTASSIUM (test code=K) 3.2 mEq/L 3.4-5.0 CHLORIDE (test code=CL) 110 mEq/L 100-108 CARBON DIOXIDE (test code=CO2) 28 mEq/L 21-33 ANION GAP (test code=GAP) 8 0-20 GLUCOSE (test code=GLU) 152 mg/dL 70-110 BLOOD UREA NITROGEN (test code=BUN) 27 mg/dL 7-18 GLOMERULAR FILTRATION RATE (test code=GFR) 50.7 80-90 Units of measure=ml/min/1.73 m2 CREATININE (test code=CREAT) 1.1 mg/dL 0.6-1.3 CALCIUM (test code=CA) 7.8 mg/dL 8.0-10.5 COMMENTS: Daily while in ICUHEPATIC FUNCTION [id number] 06:50:00* Test Item Value Reference Range Comments TOTAL PROTEIN (test code=PROT) 4.8 g/dL 6.4-8.2 ALBUMIN (test code=ALB) 1.90 g/dL 3.4-5.0 BILIRUBIN TOTAL (test code=BILT) 2.30 mg/dL 0.0-1.0 BILIRUBIN DIRECT (test code=BILD) 1.70 MG/DL 0.0-0.30 BILIRUBIN INDIRECT (test code=BILIND) 0.60 MG/DL SGOT/AST (test code=AST) 83 IUnit/L 15-37 SGPT/ALT (test code=ALT) 51 IUnit/L 15-65 ALKALINE PHOSPHATASE TOTAL (test code=ALKP) 107 IUnit/L 20-125 COMMENTS: Daily while in [id number] 06:50:00* Test Item Value Reference Range Comments PHOSPHOROUS (test code=PHOS) 2.2 mg/dL 2.5-4.9 COMMENTS: Daily while in [id number] 06:50:00* Test Item Value Reference Range Comments MAGNESIUM (test code=MAG) 2.00 mg/dL 1.8-2.4 COMMENTS: Daily while in ICUBASIC METABOLIC [id number] 06:45:00* Test Item Value Reference Range Comments SODIUM (test code=NA) 143 mEq/L 134-147 POTASSIUM (test code=K) 3.2 mEq/L 3.4-5.0 CHLORIDE (test code=CL) 110 mEq/L 100-108 CARBON DIOXIDE (test code=CO2) 28 mEq/L 21-33 ANION GAP (test code=GAP) 8 0-20 GLUCOSE (test code=GLU) 152 mg/dL 70-110 BLOOD UREA NITROGEN (test code=BUN) 27 mg/dL 7-18 GLOMERULAR FILTRATION RATE (test code=GFR) 50.7 80-90 Units of measure=ml/min/1.73 m2 CREATININE (test code=CREAT) 1.1 mg/dL 0.6-1.3 CALCIUM (test code=CA) 7.8 mg/dL 8.0-10.5 COMMENTS: Daily while in ICUHEPATIC FUNCTION [id number] 06:45:00* Test Item Value Reference Range Comments TOTAL PROTEIN (test code=PROT) g/dL 6.4-8.2 ALBUMIN (test code=ALB) 1.90 g/dL 3.4-5.0 BILIRUBIN TOTAL (test code=BILT) mg/dL 0.0-1.0 BILIRUBIN DIRECT (test code=BILD) 1.70 MG/DL 0.0-0.30 SGOT/AST (test code=AST) 83 IUnit/L 15-37 SGPT/ALT (test code=ALT) 51 IUnit/L 15-65 ALKALINE PHOSPHATASE TOTAL (test code=ALKP) IUnit/L 20-125 COMMENTS: Daily while in [id number] 06:45:00* Test Item Value Reference Range Comments PHOSPHOROUS (test code=PHOS) 2.2 mg/dL 2.5-4.9 COMMENTS: Daily while in [id number] 06:45:00* Test Item Value Reference Range Comments MAGNESIUM (test code=MAG) 2.00 mg/dL 1.8-2.4 COMMENTS: Daily while in [id number] 05:53:00* Test Item Value Reference Range Comments GLUBED (test code=GLUBED) 149 MG/DL 70-110 Performed by certified traffic control operator at [facility] ARTERIAL BLOOD [id number] 03:50:00* Test Item Value Reference Range Comments ARTERIAL BLOOD GAS PH (test code=PHA) 7.424 7.35-7.45 ARTERIAL BLOOD GAS PCO2 (test code=PCO2A) 37.3 mmHg 35-45 ARTERIAL BLOOD GAS PO2 (test code=PO2A) 177 mmHg 80-100 BICARBONATE TOTAL HCO3 (test code=HCO3) 24.4 mmol/L 22.0-26.0 BASE EXCESS (test code=DIYA) 0.0 mmol/L -4-4 ABG O2 SATURATION (test code=SATA) 100 % 90-100 FIO2 (test code=FIO2A) 40 % ABG DELIVERY (test code=GLADYS) Vent ABG VENT MODE (test code=MODEA) AC v con ABG VENT RESP RATE (test code=RRA) 12 /MIN ABG TIDAL VOLUME (test code=TVA) 450 ml ABG PEEP (test code=PEEPA) 5 cmH2O Performed by certified traffic control operator at [facility] ABG TEMPERATURE (test code=TEMPA) 98.6 F ABG SITE (test code=SITEA) Art line PREDICTED AA GRADIENT (test code=AP) 62 PREDICTED PO2 (test code=OP) 178 a/A RATIO (test code=RATIO) 0.74 TCO2 ARTERIAL (test code=TCO2A) 26 A-A GRADIENT (test code=AAGRADE) 63 [id number] 23:07:00* Test Item Value Reference Range Comments GLUBED (test code=GLUBED) 142 MG/DL 70-110 Performed by certified traffic control operator at [facility] [id number] 23:07:00* Test Item Value Reference Range Comments GLUBED (test code=GLUBED) 150 MG/DL 70-110 Performed by certified traffic control operator at [facility] CBC W/AUTO [id number] 20:38:00* Test Item Value Reference Range Comments WHITE BLOOD CELL (test code=WBC) 8.89 x10 3/uL 4.5-11.0 RED BLOOD CELL (test code=RBC) 3.27 x10 6/uL 3.54-5.02 HEMOGLOBIN (test code=HGB) 9.7 g/dL 11.0-15.0 HEMATOCRIT (test code=HCT) 30.9 % 33.0-45.0 MEAN CELL VOLUME (test code=MCV) 94.5 fL 81.0-99.0 MEAN CELL HGB (test code=MCH) 29.7 pg 27.0-33.0 MEAN CELL HGB CONCETRATION (test code=MCHC) 31.4 g/dL 33.0-37.0 RED CELL DISTRIBUTION WIDTH CV (test code=RDW) 16.9 % 11.5-14.5 RED CELL DISTRIBUTION WIDTH SD (test code=RDW-SD) 58.6 fL 37.0-54.0 PLATELET COUNT (test code=PLT) 55 x10 3/uL 150-400 MEAN PLATELET VOLUME (test code=MPV) 11.1 fL 7.0-9.0 NEUTROPHIL % (test code=NT%) 89.8 % 56.0-77.0 IMMATURE GRANULOCYTE % (test code=IG%) 2.0 % 0.0-2.0 LYMPHOCYTE % (test code=LY%) 2.6 % 14.0-32.0 MONOCYTE % (test code=MO%) 5.4 % 4.8-9.0 EOSINOPHIL % (test code=EO%) 0.0 % 0.3-3.7 BASOPHIL % (test code=BA%) 0.2 % 0.0-2.0 NUCLEATED RBC % (test code=NRBC%) 2.2 % 0-0 NEUTROPHIL # (test code=NT#) 7.98 x10 3/uL 2.0-7.6 IMMATURE GRANULOCYTE # (test code=IG#) 0.18 x10 3/uL 0.00-0.03 LYMPHOCYTE # (test code=LY#) 0.23 x10 3/uL 1.0-3.8 MONOCYTE # (test code=MO#) 0.48 x10 3/uL 0.1-0.8 EOSINOPHIL # (test code=EO#) 0.00 x10 3/uL 0.0-0.2 BASOPHIL # (test code=BA#) 0.02 x10 3/uL 0.0-0.2 NUCLEATED RBC # (test code=NRBC#) 0.20 x10 3/uL 0.0-0.1 MANUAL DIFF REQUIRED (test code=MDIFF) NO SLIDE REVIEWED, CONSISTENT WITH AUTO DIFF. PLT [id number] 20:38:00* Test Item Value Reference Range Comments PLATELET ESTIMATE (test code=PLTEST) 92-115 THOUSAND ADEQUATE PLATELET MORPHOLOGY (test code=PLTMORPH) LARGE PLATELETS CBC W/AUTO [id number] 20:37:00* Test Item Value Reference Range Comments WHITE BLOOD CELL (test code=WBC) 8.89 x10 3/uL 4.5-11.0 RED BLOOD CELL (test code=RBC) 3.27 x10 6/uL 3.54-5.02 HEMOGLOBIN (test code=HGB) 9.7 g/dL 11.0-15.0 HEMATOCRIT (test code=HCT) 30.9 % 33.0-45.0 MEAN CELL VOLUME (test code=MCV) 94.5 fL 81.0-99.0 MEAN CELL HGB (test code=MCH) 29.7 pg 27.0-33.0 MEAN CELL HGB CONCETRATION (test code=MCHC) 31.4 g/dL 33.0-37.0 RED CELL DISTRIBUTION WIDTH CV (test code=RDW) 16.9 % 11.5-14.5 RED CELL DISTRIBUTION WIDTH SD (test code=RDW-SD) 58.6 fL 37.0-54.0 PLATELET COUNT (test code=PLT) 55 x10 3/uL 150-400 MEAN PLATELET VOLUME (test code=MPV) 11.1 fL 7.0-9.0 NEUTROPHIL % (test code=NT%) 89.8 % 56.0-77.0 IMMATURE GRANULOCYTE % (test code=IG%) 2.0 % 0.0-2.0 LYMPHOCYTE % (test code=LY%) 2.6 % 14.0-32.0 MONOCYTE % (test code=MO%) 5.4 % 4.8-9.0 EOSINOPHIL % (test code=EO%) 0.0 % 0.3-3.7 BASOPHIL % (test code=BA%) 0.2 % 0.0-2.0 NUCLEATED RBC % (test code=NRBC%) 2.2 % 0-0 NEUTROPHIL # (test code=NT#) 7.98 x10 3/uL 2.0-7.6 IMMATURE GRANULOCYTE # (test code=IG#) 0.18 x10 3/uL 0.00-0.03 LYMPHOCYTE # (test code=LY#) 0.23 x10 3/uL 1.0-3.8 MONOCYTE # (test code=MO#) 0.48 x10 3/uL 0.1-0.8 EOSINOPHIL # (test code=EO#) 0.00 x10 3/uL 0.0-0.2 BASOPHIL # (test code=BA#) 0.02 x10 3/uL 0.0-0.2 NUCLEATED RBC # (test code=NRBC#) 0.20 x10 3/uL 0.0-0.1 MANUAL DIFF REQUIRED (test code=MDIFF) NO SLIDE REVIEWED, CONSISTENT WITH AUTO DIFF. PLT [id number] 20:37:00* Test Item Value Reference Range Comments PLATELET ESTIMATE (test code=PLTEST) THOUSAND ADEQUATE CBC W/AUTO [id number] 20:37:00* Test Item Value Reference Range Comments WHITE BLOOD CELL (test code=WBC) 8.89 x10 3/uL 4.5-11.0 RED BLOOD CELL (test code=RBC) 3.27 x10 6/uL 3.54-5.02 HEMOGLOBIN (test code=HGB) 9.7 g/dL 11.0-15.0 HEMATOCRIT (test code=HCT) 30.9 % 33.0-45.0 MEAN CELL VOLUME (test code=MCV) 94.5 fL 81.0-99.0 MEAN CELL HGB (test code=MCH) 29.7 pg 27.0-33.0 MEAN CELL HGB CONCETRATION (test code=MCHC) 31.4 g/dL 33.0-37.0 RED CELL DISTRIBUTION WIDTH CV (test code=RDW) 16.9 % 11.5-14.5 RED CELL DISTRIBUTION WIDTH SD (test code=RDW-SD) 58.6 fL 37.0-54.0 PLATELET COUNT (test code=PLT) 55 x10 3/uL 150-400 MEAN PLATELET VOLUME (test code=MPV) 11.1 fL 7.0-9.0 NEUTROPHIL % (test code=NT%) 89.8 % 56.0-77.0 IMMATURE GRANULOCYTE % (test code=IG%) 2.0 % 0.0-2.0 LYMPHOCYTE % (test code=LY%) 2.6 % 14.0-32.0 MONOCYTE % (test code=MO%) 5.4 % 4.8-9.0 EOSINOPHIL % (test code=EO%) 0.0 % 0.3-3.7 BASOPHIL % (test code=BA%) 0.2 % 0.0-2.0 NUCLEATED RBC % (test code=NRBC%) 2.2 % 0-0 NEUTROPHIL # (test code=NT#) 7.98 x10 3/uL 2.0-7.6 IMMATURE GRANULOCYTE # (test code=IG#) 0.18 x10 3/uL 0.00-0.03 LYMPHOCYTE # (test code=LY#) 0.23 x10 3/uL 1.0-3.8 MONOCYTE # (test code=MO#) 0.48 x10 3/uL 0.1-0.8 EOSINOPHIL # (test code=EO#) 0.00 x10 3/uL 0.0-0.2 BASOPHIL # (test code=BA#) 0.02 x10 3/uL 0.0-0.2 NUCLEATED RBC # (test code=NRBC#) 0.20 x10 3/uL 0.0-0.1 MANUAL DIFF REQUIRED (test code=MDIFF) NO SLIDE REVIEWED, CONSISTENT WITH AUTO DIFF. PLT [id number] 20:37:00* Test Item Value Reference Range Comments PLATELET ESTIMATE (test code=PLTEST) THOUSAND ADEQUATE CBC W/AUTO [id number] 20:04:00* Test Item Value Reference Range Comments WHITE BLOOD CELL (test code=WBC) 8.89 x10 3/uL 4.5-11.0 RED BLOOD CELL (test code=RBC) 3.27 x10 6/uL 3.54-5.02 HEMOGLOBIN (test code=HGB) 9.7 g/dL 11.0-15.0 HEMATOCRIT (test code=HCT) 30.9 % 33.0-45.0 MEAN CELL VOLUME (test code=MCV) 94.5 fL 81.0-99.0 MEAN CELL HGB (test code=MCH) 29.7 pg 27.0-33.0 MEAN CELL HGB CONCETRATION (test code=MCHC) 31.4 g/dL 33.0-37.0 RED CELL DISTRIBUTION WIDTH CV (test code=RDW) 16.9 % 11.5-14.5 RED CELL DISTRIBUTION WIDTH SD (test code=RDW-SD) 58.6 fL 37.0-54.0 PLATELET COUNT (test code=PLT) 55 x10 3/uL 150-400 MEAN PLATELET VOLUME (test code=MPV) 11.1 fL 7.0-9.0 LYMPHOCYTE % (test code=LY%) % 14.0-32.0 MANUAL DIFF REQUIRED (test code=MDIFF) [id number] 13:14:00* Test Item Value Reference Range Comments GLUBED (test code=GLUBED) 172 MG/DL 70-110 Performed by certified traffic control operator at [facility] CBC W/AUTO [id number] 10:53:00* Test Item Value Reference Range Comments WHITE BLOOD CELL (test code=WBC) 9.12 x10 3/uL 4.5-11.0 RED BLOOD CELL (test code=RBC) 3.56 x10 6/uL 3.54-5.02 HEMOGLOBIN (test code=HGB) 10.7 g/dL 11.0-15.0 HEMATOCRIT (test code=HCT) 31.8 % 33.0-45.0 MEAN CELL VOLUME (test code=MCV) 89.3 fL 81.0-99.0 MEAN CELL HGB (test code=MCH) 30.1 pg 27.0-33.0 MEAN CELL HGB CONCETRATION (test code=MCHC) 33.6 g/dL 33.0-37.0 RED CELL DISTRIBUTION WIDTH CV (test code=RDW) 16.0 % 11.5-14.5 RED CELL DISTRIBUTION WIDTH SD (test code=RDW-SD) 53.0 fL 37.0-54.0 PLATELET COUNT (test code=PLT) 82 x10 3/uL 150-400 MEAN PLATELET VOLUME (test code=MPV) 10.1 fL 7.0-9.0 NEUTROPHIL % (test code=NT%) 90.1 % 56.0-77.0 IMMATURE GRANULOCYTE % (test code=IG%) 2.6 % 0.0-2.0 LYMPHOCYTE % (test code=LY%) 1.9 % 14.0-32.0 MONOCYTE % (test code=MO%) 5.2 % 4.8-9.0 EOSINOPHIL % (test code=EO%) 0.0 % 0.3-3.7 BASOPHIL % (test code=BA%) 0.2 % 0.0-2.0 NUCLEATED RBC % (test code=NRBC%) 3.7 % 0-0 NEUTROPHIL # (test code=NT#) 8.22 x10 3/uL 2.0-7.6 IMMATURE GRANULOCYTE # (test code=IG#) 0.24 x10 3/uL 0.00-0.03 LYMPHOCYTE # (test code=LY#) 0.17 x10 3/uL 1.0-3.8 MONOCYTE # (test code=MO#) 0.47 x10 3/uL 0.1-0.8 EOSINOPHIL # (test code=EO#) 0.00 x10 3/uL 0.0-0.2 BASOPHIL # (test code=BA#) 0.02 x10 3/uL 0.0-0.2 NUCLEATED RBC # (test code=NRBC#) 0.34 x10 3/uL 0.0-0.1 MANUAL DIFF REQUIRED (test code=MDIFF) NO SLIDE REVIEWED, CONSISTENT WITH AUTO DIFF. COMMENTS: Daily while in ICUPLT [id number] 10:53:00* Test Item Value Reference Range Comments PLATELET ESTIMATE (test code=PLTEST) THOUSAND ADEQUATE COMMENTS: Daily while in ICUCBC W/AUTO [id number] 10:53:00* Test Item Value Reference Range Comments WHITE BLOOD CELL (test code=WBC) 9.12 x10 3/uL 4.5-11.0 RED BLOOD CELL (test code=RBC) 3.56 x10 6/uL 3.54-5.02 HEMOGLOBIN (test code=HGB) 10.7 g/dL 11.0-15.0 HEMATOCRIT (test code=HCT) 31.8 % 33.0-45.0 MEAN CELL VOLUME (test code=MCV) 89.3 fL 81.0-99.0 MEAN CELL HGB (test code=MCH) 30.1 pg 27.0-33.0 MEAN CELL HGB CONCETRATION (test code=MCHC) 33.6 g/dL 33.0-37.0 RED CELL DISTRIBUTION WIDTH CV (test code=RDW) 16.0 % 11.5-14.5 RED CELL DISTRIBUTION WIDTH SD (test code=RDW-SD) 53.0 fL 37.0-54.0 PLATELET COUNT (test code=PLT) 82 x10 3/uL 150-400 MEAN PLATELET VOLUME (test code=MPV) 10.1 fL 7.0-9.0 NEUTROPHIL % (test code=NT%) 90.1 % 56.0-77.0 IMMATURE GRANULOCYTE % (test code=IG%) 2.6 % 0.0-2.0 LYMPHOCYTE % (test code=LY%) 1.9 % 14.0-32.0 MONOCYTE % (test code=MO%) 5.2 % 4.8-9.0 EOSINOPHIL % (test code=EO%) 0.0 % 0.3-3.7 BASOPHIL % (test code=BA%) 0.2 % 0.0-2.0 NUCLEATED RBC % (test code=NRBC%) 3.7 % 0-0 NEUTROPHIL # (test code=NT#) 8.22 x10 3/uL 2.0-7.6 IMMATURE GRANULOCYTE # (test code=IG#) 0.24 x10 3/uL 0.00-0.03 LYMPHOCYTE # (test code=LY#) 0.17 x10 3/uL 1.0-3.8 MONOCYTE # (test code=MO#) 0.47 x10 3/uL 0.1-0.8 EOSINOPHIL # (test code=EO#) 0.00 x10 3/uL 0.0-0.2 BASOPHIL # (test code=BA#) 0.02 x10 3/uL 0.0-0.2 NUCLEATED RBC # (test code=NRBC#) 0.34 x10 3/uL 0.0-0.1 MANUAL DIFF REQUIRED (test code=MDIFF) NO SLIDE REVIEWED, CONSISTENT WITH AUTO DIFF. COMMENTS: Daily while in ICUPLT [id number] 10:53:00* Test Item Value Reference Range Comments PLATELET ESTIMATE (test code=PLTEST) 108-135 THOUSAND ADEQUATE PLATELET MORPHOLOGY (test code=PLTMORPH) GIANT PLATELETS COMMENTS: Daily while in ICUCBC W/AUTO [id number] 10:53:00* Test Item Value Reference Range Comments WHITE BLOOD CELL (test code=WBC) 9.12 x10 3/uL 4.5-11.0 RED BLOOD CELL (test code=RBC) 3.56 x10 6/uL 3.54-5.02 HEMOGLOBIN (test code=HGB) 10.7 g/dL 11.0-15.0 HEMATOCRIT (test code=HCT) 31.8 % 33.0-45.0 MEAN CELL VOLUME (test code=MCV) 89.3 fL 81.0-99.0 MEAN CELL HGB (test code=MCH) 30.1 pg 27.0-33.0 MEAN CELL HGB CONCETRATION (test code=MCHC) 33.6 g/dL 33.0-37.0 RED CELL DISTRIBUTION WIDTH CV (test code=RDW) 16.0 % 11.5-14.5 RED CELL DISTRIBUTION WIDTH SD (test code=RDW-SD) 53.0 fL 37.0-54.0 PLATELET COUNT (test code=PLT) 82 x10 3/uL 150-400 MEAN PLATELET VOLUME (test code=MPV) 10.1 fL 7.0-9.0 NEUTROPHIL % (test code=NT%) 90.1 % 56.0-77.0 IMMATURE GRANULOCYTE % (test code=IG%) 2.6 % 0.0-2.0 LYMPHOCYTE % (test code=LY%) 1.9 % 14.0-32.0 MONOCYTE % (test code=MO%) 5.2 % 4.8-9.0 EOSINOPHIL % (test code=EO%) 0.0 % 0.3-3.7 BASOPHIL % (test code=BA%) 0.2 % 0.0-2.0 NUCLEATED RBC % (test code=NRBC%) 3.7 % 0-0 NEUTROPHIL # (test code=NT#) 8.22 x10 3/uL 2.0-7.6 IMMATURE GRANULOCYTE # (test code=IG#) 0.24 x10 3/uL 0.00-0.03 LYMPHOCYTE # (test code=LY#) 0.17 x10 3/uL 1.0-3.8 MONOCYTE # (test code=MO#) 0.47 x10 3/uL 0.1-0.8 EOSINOPHIL # (test code=EO#) 0.00 x10 3/uL 0.0-0.2 BASOPHIL # (test code=BA#) 0.02 x10 3/uL 0.0-0.2 NUCLEATED RBC # (test code=NRBC#) 0.34 x10 3/uL 0.0-0.1 MANUAL DIFF REQUIRED (test code=MDIFF) NO SLIDE REVIEWED, CONSISTENT WITH AUTO DIFF. COMMENTS: Daily while in ICUPLT [id number] 10:53:00* Test Item Value Reference Range Comments PLATELET ESTIMATE (test code=PLTEST) THOUSAND ADEQUATE COMMENTS: Daily while in ICUCBC W/AUTO [id number] 10:51:00* Test Item Value Reference Range Comments WHITE BLOOD CELL (test code=WBC) 9.12 x10 3/uL 4.5-11.0 RED BLOOD CELL (test code=RBC) 3.56 x10 6/uL 3.54-5.02 HEMOGLOBIN (test code=HGB) 10.7 g/dL 11.0-15.0 HEMATOCRIT (test code=HCT) 31.8 % 33.0-45.0 MEAN CELL VOLUME (test code=MCV) 89.3 fL 81.0-99.0 MEAN CELL HGB (test code=MCH) 30.1 pg 27.0-33.0 MEAN CELL HGB CONCETRATION (test code=MCHC) 33.6 g/dL 33.0-37.0 RED CELL DISTRIBUTION WIDTH CV (test code=RDW) 16.0 % 11.5-14.5 RED CELL DISTRIBUTION WIDTH SD (test code=RDW-SD) 53.0 fL 37.0-54.0 PLATELET COUNT (test code=PLT) 82 x10 3/uL 150-400 MEAN PLATELET VOLUME (test code=MPV) 10.1 fL 7.0-9.0 NEUTROPHIL % (test code=NT%) 90.1 % 56.0-77.0 IMMATURE GRANULOCYTE % (test code=IG%) 2.6 % 0.0-2.0 LYMPHOCYTE % (test code=LY%) 1.9 % 14.0-32.0 MONOCYTE % (test code=MO%) 5.2 % 4.8-9.0 EOSINOPHIL % (test code=EO%) 0.0 % 0.3-3.7 BASOPHIL % (test code=BA%) 0.2 % 0.0-2.0 NUCLEATED RBC % (test code=NRBC%) 3.7 % 0-0 NEUTROPHIL # (test code=NT#) 8.22 x10 3/uL 2.0-7.6 IMMATURE GRANULOCYTE # (test code=IG#) 0.24 x10 3/uL 0.00-0.03 LYMPHOCYTE # (test code=LY#) 0.17 x10 3/uL 1.0-3.8 MONOCYTE # (test code=MO#) 0.47 x10 3/uL 0.1-0.8 EOSINOPHIL # (test code=EO#) 0.00 x10 3/uL 0.0-0.2 BASOPHIL # (test code=BA#) 0.02 x10 3/uL 0.0-0.2 NUCLEATED RBC # (test code=NRBC#) 0.34 x10 3/uL 0.0-0.1 MANUAL DIFF REQUIRED (test code=MDIFF) NO SLIDE REVIEWED, CONSISTENT WITH AUTO DIFF. COMMENTS: Daily while in ICUPROTHROMBIN [id number] 08:00:00* Test Item Value Reference Range Comments PROTHROMBIN TIME PATIENT (test code=PTP) 12.0 SECONDS 9.3-12.9 INTERNATIONAL NORMAL RATIO (test code=INR) 1.1 0.8-1.2 TARGET INR BY INDICATION Indication INR1. Prophylaxis of venous thrombosis 2.0 - 3.0 (orthopedic surgery), Prophylaxis of venous thrombosis (other than high-risk surgery), Treatment of Deep Vein Thrombosis/Pulmonary Embolism, Prevention of systemic embolism - Tissue heart valves, Acute Myocardial Infarction (to prevent systemic embolism), Valvular heart disease, Atrial Fibrillation, Bileaflet mechanical valve in aortic position.2. Mechanical prosthetic valves (high risk), 2.5 - 3.5 Presence of Lupus Anticoagulant or Antiphospholipid Antibodies, Prevention of systemic embolism - Acute Myocardial Infarction (to prevent recurrent infarct). [id number] 08:00:00* Test Item Value Reference Range Comments FIBRINOGEN (test code=FIB) 285 MG/DL 160-450 Excess administration of anticoagulants and/or FibrinDegradation Products may affect Fibrinogen value. - XR CHEST 1 [id number] 07:44:00 FAX: Salud Pavon MD [place]: St: ADM FAX: Jordy Martinez DO [phone] FAX: Dwayne Millan [phone] Name: HEIDI STEINER [facility] [place] : 1960 Age/S: 58/F [address] [place] [address] Unit #: [id number] Loc: G.M324 [place] [address] Phys: Salud Pavon MD Acct: [id number] Dis Date: Status: ADM IN PH ONE #: [phone] Exam Date: 12/16/2018 0550 FAX #: [phone] Reason: intubated/vented EXAMS: CPT CODE: [id number] XR CHEST 1 V 10317 CHEST, SINGLE VIEW HISTORY: Rectal cancer, intubated Comparison made to 12/15/18. FINDINGS: Interval development of bilateral perihilar infiltrates and small bilateral pleural effusions. He art size is stable. Endotracheal tube, left subclavian Port-A-Cath, right IJ central venous catheter, nasogastric tube position is stable. IMPRESSION: 1. Interval development of pulm onary edema compared to 12/15/18. 2. Stable support line position. SL:01 at 0721 Reported and signed by: Yosi Gutierrez M.D. CC: Salud Pavon MD; Jordy Gambino DO; Joycelyn Person MD Technologist: Elvis Jang Trnscrd Date/Time/By: 0 12/16/2018 (0744) : By: Fernando Orig Print D/T: S: 12/16/2018 (0772) PAGE 1 Signed Report HEPATIC FUNCTION [id number] 07:20:00* Test Item Value Reference Range Comments TOTAL PROTEIN (test code=PROT) 4.7 g/dL 6.4-8.2 ALBUMIN (test code=ALB) 2.20 g/dL 3.4-5.0 BILIRUBIN TOTAL (test code=BILT) 3.30 mg/dL 0.0-1.0 BILIRUBIN DIRECT (test code=BILD) 2.50 MG/DL 0.0-0.30 BILIRUBIN INDIRECT (test code=BILIND) 0.80 MG/DL SGOT/AST (test code=AST) 63 IUnit/L 15-37 SGPT/ALT (test code=ALT) 46 IUnit/L 15-65 ALKALINE PHOSPHATASE TOTAL (test code=ALKP) 79 IUnit/L 20-125 [id number] 07:20:00* Test Item Value Reference Range Comments TRIGLYCERIDES (test code=TRIG) 116 mg/dL 40-150 BASIC METABOLIC [id number] 07:15:00* Test Item Value Reference Range Comments SODIUM (test code=NA) 144 mEq/L 134-147 POTASSIUM (test code=K) 3.4 mEq/L 3.4-5.0 CHLORIDE (test code=CL) 110 mEq/L 100-108 CARBON DIOXIDE (test code=CO2) 28 mEq/L 21-33 ANION GAP (test code=GAP) 9 0-20 GLUCOSE (test code=GLU) 143 mg/dL 70-110 BLOOD UREA NITROGEN (test code=BUN) 25 mg/dL 7-18 GLOMERULAR FILTRATION RATE (test code=GFR) 45.8 80-90 Units of measure=ml/min/1.73 m2 CREATININE (test code=CREAT) 1.2 mg/dL 0.6-1.3 CALCIUM (test code=CA) 7.5 mg/dL 8.0-10.5 COMMENTS: Daily while in [id number] 07:15:00* Test Item Value Reference Range Comments PHOSPHOROUS (test code=PHOS) 2.5 mg/dL 2.5-4.9 COMMENTS: Daily while in [id number] 07:15:00* Test Item Value Reference Range Comments MAGNESIUM (test code=MAG) 1.90 mg/dL 1.8-2.4 COMMENTS: Daily while in ICUCBC W/AUTO [id number] 07:14:00* Test Item Value Reference Range Comments WHITE BLOOD CELL (test code=WBC) 9.12 x10 3/uL 4.5-11.0 RED BLOOD CELL (test code=RBC) 3.56 x10 6/uL 3.54-5.02 HEMOGLOBIN (test code=HGB) 10.7 g/dL 11.0-15.0 HEMATOCRIT (test code=HCT) 31.8 % 33.0-45.0 MEAN CELL VOLUME (test code=MCV) 89.3 fL 81.0-99.0 MEAN CELL HGB (test code=MCH) 30.1 pg 27.0-33.0 MEAN CELL HGB CONCETRATION (test code=MCHC) 33.6 g/dL 33.0-37.0 RED CELL DISTRIBUTION WIDTH CV (test code=RDW) 16.0 % 11.5-14.5 RED CELL DISTRIBUTION WIDTH SD (test code=RDW-SD) 53.0 fL 37.0-54.0 PLATELET COUNT (test code=PLT) 82 x10 3/uL 150-400 MEAN PLATELET VOLUME (test code=MPV) 10.1 fL 7.0-9.0 LYMPHOCYTE % (test code=LY%) % 14.0-32.0 MANUAL DIFF REQUIRED (test code=MDIFF) COMMENTS: Daily while in [id number] 05:32:00* Test Item Value Reference Range Comments GLUBED (test code=GLUBED) 162 MG/DL 70-110 Performed by certified traffic control operator at [facility] ARTERIAL BLOOD [id number] 05:30:00* Test Item Value Reference Range Comments ARTERIAL BLOOD GAS PH (test code=PHA) 7.434 7.35-7.45 ARTERIAL BLOOD GAS PCO2 (test code=PCO2A) 32.1 mmHg 35-45 ARTERIAL BLOOD GAS PO2 (test code=PO2A) 166 mmHg 80-100 BICARBONATE TOTAL HCO3 (test code=HCO3) 21.5 mmol/L 22.0-26.0 BASE EXCESS (test code=DIYA) -3.0 mmol/L -4-4 ABG O2 SATURATION (test code=SATA) 100 % 90-100 FIO2 (test code=FIO2A) 40 % ABG DELIVERY (test code=GLADYS) Vent ABG VENT MODE (test code=MODEA) AC v con ABG VENT RESP RATE (test code=RRA) 12 /MIN ABG TIDAL VOLUME (test code=TVA) 450 ml ABG PEEP (test code=PEEPA) 5 cmH2O Performed by certified traffic control operator at [facility] ABG TEMPERATURE (test code=TEMPA) 98.2 F ABG SITE (test code=SITEA) Art line PREDICTED AA GRADIENT (test code=AP) 64 PREDICTED PO2 (test code=OP) 183 a/A RATIO (test code=RATIO) 0.67 TCO2 ARTERIAL (test code=TCO2A) 23 A-A GRADIENT (test code=AAGRADE) 81 HGB [id number] 02:59:00* Test Item Value Reference Range Comments HEMOGLOBIN (test code=HGB) 10.6 g/dL 11.0-15.0 HEMATOCRIT (test code=HCT) 31.2 % 33.0-45.0 [id number] 23:30:00* Test Item Value Reference Range Comments GLUBED (test code=GLUBED) 108 MG/DL 70-110 Performed by certified traffic control operator at [facility] HGB [id number] 23:16:00* Test Item Value Reference Range Comments HEMOGLOBIN (test code=HGB) 10.5 g/dL 11.0-15.0 HEMATOCRIT (test code=HCT) 31.5 % 33.0-45.0 PLATELET [id number] 23:16:00* Test Item Value Reference Range Comments PLATELET COUNT (test code=PLT) 104 x10 3/uL 150-400 [id number] 23:04:00* Test Item Value Reference Range Comments FIBRINOGEN (test code=FIB) 256 MG/DL 160-450 Excess administration of anticoagulants and/or FibrinDegradation Products may affect Fibrinogen value. CBC W/AUTO [id number] 22:17:00* Test Item Value Reference Range Comments WHITE BLOOD CELL (test code=WBC) 6.21 x10 3/uL 4.5-11.0 RED BLOOD CELL (test code=RBC) 3.90 x10 6/uL 3.54-5.02 HEMOGLOBIN (test code=HGB) 11.7 g/dL 11.0-15.0 HEMATOCRIT (test code=HCT) 34.0 % 33.0-45.0 MEAN CELL VOLUME (test code=MCV) 87.2 fL 81.0-99.0 MEAN CELL HGB (test code=MCH) 30.0 pg 27.0-33.0 MEAN CELL HGB CONCETRATION (test code=MCHC) 34.4 g/dL 33.0-37.0 RED CELL DISTRIBUTION WIDTH CV (test code=RDW) 15.2 % 11.5-14.5 RED CELL DISTRIBUTION WIDTH SD (test code=RDW-SD) 48.3 fL 37.0-54.0 PLATELET COUNT (test code=PLT) 57 x10 3/uL 150-400 MEAN PLATELET VOLUME (test code=MPV) 10.5 fL 7.0-9.0 MANUAL DIFF REQUIRED (test code=MDIFF) YES WBC [id number] 22:17:00* Test Item Value Reference Range Comments SEGMENTED NEUTROPHILS (test code=SEG) 80.7 % 37-69 BAND NEUTROPHIL (test code=BAND) 6.4 % 0.0-10.0 LYMPHOCYTE (test code=LYMPH) 0.9 % 23-55 REACTIVE LYMPH (test code=RELYMPH) 0.9 % MONOCYTE (test code=MON) 6.4 % 0-10 METAMYELOCYTE (test code=META) 2.8 % 0.0-0.0 MYELOCYTE (test code=MYELO) 1.9 % 0.0-0.0 NUCLEATED RED BLOOD CELL (test code=NRBC) 14.7 % ANISOCYTOSIS (test code=ANISO) 2+ TOXIC GRANULATION (test code=TOX) 1+ PLATELET ESTIMATE (test code=PLTEST) 92-115 THOUSAND ADEQUATE Previously reported result: Decreased THOUSANDEdited by: CAMILA on 12/15/18:087361 221: PLT EST previously reported as: Decreased THOUSAND PLATELET MORPHOLOGY (test code=PLTMORPH) LARGE PLATELETS SOME LARGE PLTS SEEN PLT AGGREGATES NOTED CBC W/AUTO [id number] 18:35:00* Test Item Value Reference Range Comments WHITE BLOOD CELL (test code=WBC) 8.09 x10 3/uL 4.5-11.0 RED BLOOD CELL (test code=RBC) 3.63 x10 6/uL 3.54-5.02 HEMOGLOBIN (test code=HGB) 10.9 g/dL 11.0-15.0 HEMATOCRIT (test code=HCT) 31.9 % 33.0-45.0 MEAN CELL VOLUME (test code=MCV) 87.9 fL 81.0-99.0 MEAN CELL HGB (test code=MCH) 30.0 pg 27.0-33.0 MEAN CELL HGB CONCETRATION (test code=MCHC) 34.2 g/dL 33.0-37.0 RED CELL DISTRIBUTION WIDTH CV (test code=RDW) 15.6 % 11.5-14.5 RED CELL DISTRIBUTION WIDTH SD (test code=RDW-SD) 50.4 fL 37.0-54.0 PLATELET COUNT (test code=PLT) x10 3/uL 150-400 SEE PLT EST. MEAN PLATELET VOLUME (test code=MPV) 10.4 fL 7.0-9.0 MANUAL DIFF REQUIRED (test code=MDIFF) YES WBC [id number] 18:35:00* Test Item Value Reference Range Comments SEGMENTED NEUTROPHILS (test code=SEG) 91 % 37-69 LYMPHOCYTE (test code=LYMPH) 6 % 23-55 MONOCYTE (test code=MON) 3 % 0-10 NUCLEATED RED BLOOD CELL (test code=NRBC) 8 % ANISOCYTOSIS (test code=ANISO) NORMAL TOXIC GRANULATION (test code=TOX) 1+ PLATELET ESTIMATE (test code=PLTEST) 32-40 THOUSAND ADEQUATE PLATELET MORPHOLOGY (test code=PLTMORPH) LARGE PLATELETS RARE GIANT PLATELETS COMPREHENSIVE METABOLIC [id number] 17:32:00* Test Item Value Reference Range Comments SODIUM (test code=NA) 144 mEq/L 134-147 POTASSIUM (test code=K) 3.7 mEq/L 3.4-5.0 CHLORIDE (test code=CL) 110 mEq/L 100-108 CARBON DIOXIDE (test code=CO2) 28 mEq/L 21-33 ANION GAP (test code=GAP) 10 0-20 GLUCOSE (test code=GLU) 93 mg/dL 70-110 BLOOD UREA NITROGEN (test code=BUN) 22 mg/dL 7-18 GLOMERULAR FILTRATION RATE (test code=GFR) 56.6 80-90 Units of measure=ml/min/1.73 m2 CREATININE (test code=CREAT) 1.0 mg/dL 0.6-1.3 TOTAL PROTEIN (test code=PROT) 4.6 g/dL 6.4-8.2 ALBUMIN (test code=ALB) 2.10 g/dL 3.4-5.0 CALCIUM (test code=CA) 7.4 mg/dL 8.0-10.5 BILIRUBIN TOTAL (test code=BILT) 3.60 mg/dL 0.0-1.0 SGOT/AST (test code=AST) 57 IUnit/L 15-37 SGPT/ALT (test code=ALT) 40 IUnit/L 15-65 ALKALINE PHOSPHATASE TOTAL (test code=ALKP) 66 IUnit/L 20-125 COMPREHENSIVE METABOLIC [id number] 17:28:00* Test Item Value Reference Range Comments SODIUM (test code=NA) 144 mEq/L 134-147 POTASSIUM (test code=K) 3.7 mEq/L 3.4-5.0 CHLORIDE (test code=CL) 110 mEq/L 100-108 CARBON DIOXIDE (test code=CO2) 28 mEq/L 21-33 ANION GAP (test code=GAP) 10 0-20 GLUCOSE (test code=GLU) 93 mg/dL 70-110 BLOOD UREA NITROGEN (test code=BUN) 22 mg/dL 7-18 GLOMERULAR FILTRATION RATE (test code=GFR) 56.6 80-90 Units of measure=ml/min/1.73 m2 CREATININE (test code=CREAT) 1.0 mg/dL 0.6-1.3 TOTAL PROTEIN (test code=PROT) g/dL 6.4-8.2 ALBUMIN (test code=ALB) 2.10 g/dL 3.4-5.0 CALCIUM (test code=CA) 7.4 mg/dL 8.0-10.5 BILIRUBIN TOTAL (test code=BILT) mg/dL 0.0-1.0 SGOT/AST (test code=AST) 57 IUnit/L 15-37 SGPT/ALT (test code=ALT) 40 IUnit/L 15-65 ALKALINE PHOSPHATASE TOTAL (test code=ALKP) IUnit/L 20-125 [id number] 17:18:00* Test Item Value Reference Range Comments FIBRINOGEN (test code=FIB) 233 MG/DL 160-450 Excess administration of anticoagulants and/or FibrinDegradation Products may affect Fibrinogen value. CBC W/AUTO [id number] 17:09:00* Test Item Value Reference Range Comments WHITE BLOOD CELL (test code=WBC) 8.09 x10 3/uL 4.5-11.0 RED BLOOD CELL (test code=RBC) 3.63 x10 6/uL 3.54-5.02 HEMOGLOBIN (test code=HGB) 10.9 g/dL 11.0-15.0 HEMATOCRIT (test code=HCT) 31.9 % 33.0-45.0 MEAN CELL VOLUME (test code=MCV) 87.9 fL 81.0-99.0 MEAN CELL HGB (test code=MCH) 30.0 pg 27.0-33.0 MEAN CELL HGB CONCETRATION (test code=MCHC) 34.2 g/dL 33.0-37.0 RED CELL DISTRIBUTION WIDTH CV (test code=RDW) 15.6 % 11.5-14.5 RED CELL DISTRIBUTION WIDTH SD (test code=RDW-SD) 50.4 fL 37.0-54.0 PLATELET COUNT (test code=PLT) x10 3/uL 150-400 SEE PLT EST. MEAN PLATELET VOLUME (test code=MPV) 10.4 fL 7.0-9.0 MANUAL DIFF REQUIRED (test code=MDIFF) YES WBC [id number] 17:09:00* Test Item Value Reference Range Comments ANISOCYTOSIS (test code=ANISO) PLATELET ESTIMATE (test code=PLTEST) THOUSAND ADEQUATE CBC W/AUTO [id number] 17:09:00* Test Item Value Reference Range Comments WHITE BLOOD CELL (test code=WBC) 8.09 x10 3/uL 4.5-11.0 RED BLOOD CELL (test code=RBC) 3.63 x10 6/uL 3.54-5.02 HEMOGLOBIN (test code=HGB) 10.9 g/dL 11.0-15.0 HEMATOCRIT (test code=HCT) 31.9 % 33.0-45.0 MEAN CELL VOLUME (test code=MCV) 87.9 fL 81.0-99.0 MEAN CELL HGB (test code=MCH) 30.0 pg 27.0-33.0 MEAN CELL HGB CONCETRATION (test code=MCHC) 34.2 g/dL 33.0-37.0 RED CELL DISTRIBUTION WIDTH CV (test code=RDW) 15.6 % 11.5-14.5 RED CELL DISTRIBUTION WIDTH SD (test code=RDW-SD) 50.4 fL 37.0-54.0 PLATELET COUNT (test code=PLT) x10 3/uL 150-400 SEE PLT EST. MEAN PLATELET VOLUME (test code=MPV) 10.4 fL 7.0-9.0 MANUAL DIFF REQUIRED (test code=MDIFF) YES WBC [id number] 17:09:00* Test Item Value Reference Range Comments ANISOCYTOSIS (test code=ANISO) PLATELET ESTIMATE (test code=PLTEST) THOUSAND ADEQUATE HGB [id number] 14:59:00* Test Item Value Reference Range Comments HEMOGLOBIN (test code=HGB) 10.8 g/dL 11.0-15.0 HEMATOCRIT (test code=HCT) 31.5 % 33.0-45.0 CBC W/AUTO [id number] 11:56:00* Test Item Value Reference Range Comments WHITE BLOOD CELL (test code=WBC) 7.78 x10 3/uL 4.5-11.0 RED BLOOD CELL (test code=RBC) 3.95 x10 6/uL 3.54-5.02 HEMOGLOBIN (test code=HGB) 11.7 g/dL 11.0-15.0 HEMATOCRIT (test code=HCT) 34.1 % 33.0-45.0 MEAN CELL VOLUME (test code=MCV) 86.3 fL 81.0-99.0 MEAN CELL HGB (test code=MCH) 29.6 pg 27.0-33.0 MEAN CELL HGB CONCETRATION (test code=MCHC) 34.3 g/dL 33.0-37.0 RED CELL DISTRIBUTION WIDTH CV (test code=RDW) 15.5 % 11.5-14.5 RED CELL DISTRIBUTION WIDTH SD (test code=RDW-SD) 48.8 fL 37.0-54.0 PLATELET COUNT (test code=PLT) 46 x10 3/uL 150-400 MEAN PLATELET VOLUME (test code=MPV) 10.5 fL 7.0-9.0 MANUAL DIFF REQUIRED (test code=MDIFF) YES WBC [id number] 11:56:00* Test Item Value Reference Range Comments SEGMENTED NEUTROPHILS (test code=SEG) 91.7 % 37-69 LYMPHOCYTE (test code=LYMPH) 1.8 % 23-55 MONOCYTE (test code=MON) 6.5 % 0-10 NUCLEATED RED BLOOD CELL (test code=NRBC) 12.0 % ANISOCYTOSIS (test code=ANISO) NORMAL TOXIC GRANULATION (test code=TOX) 1+ PLATELET ESTIMATE (test code=PLTEST) Decreased THOUSAND ADEQUATE PLT.EST.(60-75) PLATELET MORPHOLOGY (test code=PLTMORPH) LARGE PLATELETS FEW CBC W/AUTO [id number] 11:43:00* Test Item Value Reference Range Comments WHITE BLOOD CELL (test code=WBC) 7.78 x10 3/uL 4.5-11.0 RED BLOOD CELL (test code=RBC) 3.95 x10 6/uL 3.54-5.02 HEMOGLOBIN (test code=HGB) 11.7 g/dL 11.0-15.0 HEMATOCRIT (test code=HCT) 34.1 % 33.0-45.0 MEAN CELL VOLUME (test code=MCV) 86.3 fL 81.0-99.0 MEAN CELL HGB (test code=MCH) 29.6 pg 27.0-33.0 MEAN CELL HGB CONCETRATION (test code=MCHC) 34.3 g/dL 33.0-37.0 RED CELL DISTRIBUTION WIDTH CV (test code=RDW) 15.5 % 11.5-14.5 RED CELL DISTRIBUTION WIDTH SD (test code=RDW-SD) 48.8 fL 37.0-54.0 PLATELET COUNT (test code=PLT) 46 x10 3/uL 150-400 MEAN PLATELET VOLUME (test code=MPV) 10.5 fL 7.0-9.0 MANUAL DIFF REQUIRED (test code=MDIFF) YES WBC [id number] 11:43:00* Test Item Value Reference Range Comments ANISOCYTOSIS (test code=ANISO) PLATELET ESTIMATE (test code=PLTEST) THOUSAND ADEQUATE CBC W/AUTO [id number] 11:43:00* Test Item Value Reference Range Comments WHITE BLOOD CELL (test code=WBC) 7.78 x10 3/uL 4.5-11.0 RED BLOOD CELL (test code=RBC) 3.95 x10 6/uL 3.54-5.02 HEMOGLOBIN (test code=HGB) 11.7 g/dL 11.0-15.0 HEMATOCRIT (test code=HCT) 34.1 % 33.0-45.0 MEAN CELL VOLUME (test code=MCV) 86.3 fL 81.0-99.0 MEAN CELL HGB (test code=MCH) 29.6 pg 27.0-33.0 MEAN CELL HGB CONCETRATION (test code=MCHC) 34.3 g/dL 33.0-37.0 RED CELL DISTRIBUTION WIDTH CV (test code=RDW) 15.5 % 11.5-14.5 RED CELL DISTRIBUTION WIDTH SD (test code=RDW-SD) 48.8 fL 37.0-54.0 PLATELET COUNT (test code=PLT) 46 x10 3/uL 150-400 MEAN PLATELET VOLUME (test code=MPV) 10.5 fL 7.0-9.0 MANUAL DIFF REQUIRED (test code=MDIFF) YES WBC [id number] 11:43:00* Test Item Value Reference Range Comments ANISOCYTOSIS (test code=ANISO) PLATELET ESTIMATE (test code=PLTEST) THOUSAND ADEQUATE CBC W/AUTO [id number] 08:48:00* Test Item Value Reference Range Comments WHITE BLOOD CELL (test code=WBC) 6.21 x10 3/uL 4.5-11.0 RED BLOOD CELL (test code=RBC) 3.90 x10 6/uL 3.54-5.02 HEMOGLOBIN (test code=HGB) 11.7 g/dL 11.0-15.0 HEMATOCRIT (test code=HCT) 34.0 % 33.0-45.0 MEAN CELL VOLUME (test code=MCV) 87.2 fL 81.0-99.0 MEAN CELL HGB (test code=MCH) 30.0 pg 27.0-33.0 MEAN CELL HGB CONCETRATION (test code=MCHC) 34.4 g/dL 33.0-37.0 RED CELL DISTRIBUTION WIDTH CV (test code=RDW) 15.2 % 11.5-14.5 RED CELL DISTRIBUTION WIDTH SD (test code=RDW-SD) 48.3 fL 37.0-54.0 PLATELET COUNT (test code=PLT) 57 x10 3/uL 150-400 MEAN PLATELET VOLUME (test code=MPV) 10.5 fL 7.0-9.0 MANUAL DIFF REQUIRED (test code=MDIFF) YES WBC [id number] 08:48:00* Test Item Value Reference Range Comments SEGMENTED NEUTROPHILS (test code=SEG) 80.7 % 37-69 BAND NEUTROPHIL (test code=BAND) 6.4 % 0.0-10.0 LYMPHOCYTE (test code=LYMPH) 0.9 % 23-55 REACTIVE LYMPH (test code=RELYMPH) 0.9 % MONOCYTE (test code=MON) 6.4 % 0-10 METAMYELOCYTE (test code=META) 2.8 % 0.0-0.0 MYELOCYTE (test code=MYELO) 1.9 % 0.0-0.0 NUCLEATED RED BLOOD CELL (test code=NRBC) 14.7 % ANISOCYTOSIS (test code=ANISO) 2+ TOXIC GRANULATION (test code=TOX) 1+ PLATELET ESTIMATE (test code=PLTEST) Decreased THOUSAND ADEQUATE CBC W/AUTO [id number] 08:40:00* Test Item Value Reference Range Comments WHITE BLOOD CELL (test code=WBC) 6.21 x10 3/uL 4.5-11.0 RED BLOOD CELL (test code=RBC) 3.90 x10 6/uL 3.54-5.02 HEMOGLOBIN (test code=HGB) 11.7 g/dL 11.0-15.0 HEMATOCRIT (test code=HCT) 34.0 % 33.0-45.0 MEAN CELL VOLUME (test code=MCV) 87.2 fL 81.0-99.0 MEAN CELL HGB (test code=MCH) 30.0 pg 27.0-33.0 MEAN CELL HGB CONCETRATION (test code=MCHC) 34.4 g/dL 33.0-37.0 RED CELL DISTRIBUTION WIDTH CV (test code=RDW) 15.2 % 11.5-14.5 RED CELL DISTRIBUTION WIDTH SD (test code=RDW-SD) 48.3 fL 37.0-54.0 PLATELET COUNT (test code=PLT) 57 x10 3/uL 150-400 MEAN PLATELET VOLUME (test code=MPV) 10.5 fL 7.0-9.0 MANUAL DIFF REQUIRED (test code=MDIFF) YES WBC [id number] 08:40:00* Test Item Value Reference Range Comments ANISOCYTOSIS (test code=ANISO) PLATELET ESTIMATE (test code=PLTEST) THOUSAND ADEQUATE CBC W/AUTO [id number] 08:40:00* Test Item Value Reference Range Comments WHITE BLOOD CELL (test code=WBC) 6.21 x10 3/uL 4.5-11.0 RED BLOOD CELL (test code=RBC) 3.90 x10 6/uL 3.54-5.02 HEMOGLOBIN (test code=HGB) 11.7 g/dL 11.0-15.0 HEMATOCRIT (test code=HCT) 34.0 % 33.0-45.0 MEAN CELL VOLUME (test code=MCV) 87.2 fL 81.0-99.0 MEAN CELL HGB (test code=MCH) 30.0 pg 27.0-33.0 MEAN CELL HGB CONCETRATION (test code=MCHC) 34.4 g/dL 33.0-37.0 RED CELL DISTRIBUTION WIDTH CV (test code=RDW) 15.2 % 11.5-14.5 RED CELL DISTRIBUTION WIDTH SD (test code=RDW-SD) 48.3 fL 37.0-54.0 PLATELET COUNT (test code=PLT) 57 x10 3/uL 150-400 MEAN PLATELET VOLUME (test code=MPV) 10.5 fL 7.0-9.0 MANUAL DIFF REQUIRED (test code=MDIFF) YES WBC [id number] 08:40:00* Test Item Value Reference Range Comments ANISOCYTOSIS (test code=ANISO) PLATELET ESTIMATE (test code=PLTEST) THOUSAND ADEQUATE CBC W/AUTO [id number] 08:08:00* Test Item Value Reference Range Comments WHITE BLOOD CELL (test code=WBC) 6.29 x10 3/uL 4.5-11.0 RED BLOOD CELL (test code=RBC) 4.29 x10 6/uL 3.54-5.02 HEMOGLOBIN (test code=HGB) 13.0 g/dL 11.0-15.0 HEMATOCRIT (test code=HCT) 37.5 % 33.0-45.0 MEAN CELL VOLUME (test code=MCV) 87.4 fL 81.0-99.0 MEAN CELL HGB (test code=MCH) 30.3 pg 27.0-33.0 MEAN CELL HGB CONCETRATION (test code=MCHC) 34.7 g/dL 33.0-37.0 RED CELL DISTRIBUTION WIDTH CV (test code=RDW) 15.0 % 11.5-14.5 RED CELL DISTRIBUTION WIDTH SD (test code=RDW-SD) 48.0 fL 37.0-54.0 PLATELET COUNT (test code=PLT) 68 x10 3/uL 150-400 IMMATURE PLATELET FRACTION (test code=IPF) 3.2 % 0.9-11.2 MEAN PLATELET VOLUME (test code=MPV) 10.0 fL 7.0-9.0 MANUAL DIFF REQUIRED (test code=MDIFF) YES WBC [id number] 08:08:00* Test Item Value Reference Range Comments SEGMENTED NEUTROPHILS (test code=SEG) 81 % 37-69 BAND NEUTROPHIL (test code=BAND) 8.0 % 0.0-10.0 LYMPHOCYTE (test code=LYMPH) 5 % 23-55 MONOCYTE (test code=MON) 2 % 0-10 METAMYELOCYTE (test code=META) 3.0 % 0.0-0.0 MYELOCYTE (test code=MYELO) 1 % 0.0-0.0 NUCLEATED RED BLOOD CELL (test code=NRBC) 24 % ANISOCYTOSIS (test code=ANISO) 2+ TOXIC GRANULATION (test code=TOX) 2+ DOHLE BODIES (test code=DB) 1+ PLATELET ESTIMATE (test code=PLTEST) 60-75 THOUSAND ADEQUATE PLATELET MORPHOLOGY (test code=PLTMORPH) LARGE PLATELETS CBC W/AUTO [id number] 08:07:00* Test Item Value Reference Range Comments WHITE BLOOD CELL (test code=WBC) 6.29 x10 3/uL 4.5-11.0 RED BLOOD CELL (test code=RBC) 4.29 x10 6/uL 3.54-5.02 HEMOGLOBIN (test code=HGB) 13.0 g/dL 11.0-15.0 HEMATOCRIT (test code=HCT) 37.5 % 33.0-45.0 MEAN CELL VOLUME (test code=MCV) 87.4 fL 81.0-99.0 MEAN CELL HGB (test code=MCH) 30.3 pg 27.0-33.0 MEAN CELL HGB CONCETRATION (test code=MCHC) 34.7 g/dL 33.0-37.0 RED CELL DISTRIBUTION WIDTH CV (test code=RDW) 15.0 % 11.5-14.5 RED CELL DISTRIBUTION WIDTH SD (test code=RDW-SD) 48.0 fL 37.0-54.0 PLATELET COUNT (test code=PLT) 68 x10 3/uL 150-400 IMMATURE PLATELET FRACTION (test code=IPF) 3.2 % 0.9-11.2 MEAN PLATELET VOLUME (test code=MPV) 10.0 fL 7.0-9.0 MANUAL DIFF REQUIRED (test code=MDIFF) YES WBC [id number] 08:07:00* Test Item Value Reference Range Comments ANISOCYTOSIS (test code=ANISO) PLATELET ESTIMATE (test code=PLTEST) THOUSAND ADEQUATE CBC W/AUTO [id number] 08:07:00* Test Item Value Reference Range Comments WHITE BLOOD CELL (test code=WBC) 6.29 x10 3/uL 4.5-11.0 RED BLOOD CELL (test code=RBC) 4.29 x10 6/uL 3.54-5.02 HEMOGLOBIN (test code=HGB) 13.0 g/dL 11.0-15.0 HEMATOCRIT (test code=HCT) 37.5 % 33.0-45.0 MEAN CELL VOLUME (test code=MCV) 87.4 fL 81.0-99.0 MEAN CELL HGB (test code=MCH) 30.3 pg 27.0-33.0 MEAN CELL HGB CONCETRATION (test code=MCHC) 34.7 g/dL 33.0-37.0 RED CELL DISTRIBUTION WIDTH CV (test code=RDW) 15.0 % 11.5-14.5 RED CELL DISTRIBUTION WIDTH SD (test code=RDW-SD) 48.0 fL 37.0-54.0 PLATELET COUNT (test code=PLT) 68 x10 3/uL 150-400 IMMATURE PLATELET FRACTION (test code=IPF) 3.2 % 0.9-11.2 MEAN PLATELET VOLUME (test code=MPV) 10.0 fL 7.0-9.0 MANUAL DIFF REQUIRED (test code=MDIFF) YES WBC [id number] 08:07:00* Test Item Value Reference Range Comments ANISOCYTOSIS (test code=ANISO) PLATELET ESTIMATE (test code=PLTEST) THOUSAND ADEQUATE - XR CHEST 1 [id number] 07:15:00 FAX: Jordy Martinez DO [phone] [place]: St: [facility] FAX: Alexsandra Barron MD [phone] FAX: Dwayne Millan [phone] Name: HEIDI STEINER [facility] [place] : 1960 Age/S: 58/F [address] [place] [address] Unit #: [id number] Loc: [id number].M324 [place] [address] Phys: Alexsandra Barron MD Acct: [id number] Dis Date: Status: ADM IN ONE #: [phone] Exam Date: 12/15/2018512 FAX #: [phone] Reason: ETT EXAMS: CPT CODE: [id number] XR CHEST 1 V [id number] 1 VIEW CXR. PORTABLE EXAM 4:11 AM HISTORY: Ventilator patient. COMPARISON: Yesterdays chest X-RAY. Support devices are stable from yesterday. The sidehole of the NG tube is above the GE junction and the tip is just within the gastric lumen. Recommend advancing 10 to 15 cm to sure placement of both within the gastric lumen. Remaining support devices are stable and well positioned. Hazy prominence of central pulmo nary vessels and evidence of a very small left pleural effusion. No confl uent infiltrates. Bony thorax intact. IMPRESSION: Over the one day interval mild Central pulmonary venous congestion has developed. Chest otherwise stable. Please see comments above concerning NG tube. END OF IMPRESSION SL: [id number] at 0715 Reported and signed by: Olivier Dennis M.D. CC: Jordy Gambino DO; Alexsandra Barron MD; Joycelyn Person MD Technologist: Elvis Jang Trnscrd Date/Time/By: 12/15/2018 (0715) : By: Veronica Orig Print D/T: S: 12/15/2018 (0718) PAGE 1 Signed Report BASIC METABOLIC [id number] 06:39:00* Test Item Value Reference Range Comments SODIUM (test code=NA) 142 mEq/L 134-147 POTASSIUM (test code=K) 4.1 mEq/L 3.4-5.0 CHLORIDE (test code=CL) 109 mEq/L 100-108 CARBON DIOXIDE (test code=CO2) 28 mEq/L 21-33 ANION GAP (test code=GAP) 9 0-20 GLUCOSE (test code=GLU) 92 mg/dL 70-110 BLOOD UREA NITROGEN (test code=BUN) 21 mg/dL 7-18 GLOMERULAR FILTRATION RATE (test code=GFR) 50.7 80-90 Units of measure=ml/min/1.73 m2 CREATININE (test code=CREAT) 1.1 mg/dL 0.6-1.3 CALCIUM (test code=CA) 7.7 mg/dL 8.0-10.5 [id number] 06:39:00* Test Item Value Reference Range Comments PHOSPHOROUS (test code=PHOS) 1.3 mg/dL 2.5-4.9 [id number] 06:39:00* Test Item Value Reference Range Comments MAGNESIUM (test code=MAG) 1.30 mg/dL 1.8-2.4 CBC W/AUTO [id number] 06:16:00* Test Item Value Reference Range Comments WHITE BLOOD CELL (test code=WBC) 6.21 x10 3/uL 4.5-11.0 RED BLOOD CELL (test code=RBC) 3.90 x10 6/uL 3.54-5.02 HEMOGLOBIN (test code=HGB) 11.7 g/dL 11.0-15.0 HEMATOCRIT (test code=HCT) 34.0 % 33.0-45.0 MEAN CELL VOLUME (test code=MCV) 87.2 fL 81.0-99.0 MEAN CELL HGB (test code=MCH) 30.0 pg 27.0-33.0 MEAN CELL HGB CONCETRATION (test code=MCHC) 34.4 g/dL 33.0-37.0 RED CELL DISTRIBUTION WIDTH CV (test code=RDW) 15.2 % 11.5-14.5 RED CELL DISTRIBUTION WIDTH SD (test code=RDW-SD) 48.3 fL 37.0-54.0 PLATELET COUNT (test code=PLT) 57 x10 3/uL 150-400 MEAN PLATELET VOLUME (test code=MPV) 10.5 fL 7.0-9.0 LYMPHOCYTE % (test code=LY%) % 14.0-32.0 MANUAL DIFF REQUIRED (test code=MDIFF) PROTHROMBIN [id number] 03:47:00* Test Item Value Reference Range Comments PROTHROMBIN TIME PATIENT (test code=PTP) 12.5 SECONDS 9.3-12.9 INTERNATIONAL NORMAL RATIO (test code=INR) 1.1 0.8-1.2 TARGET INR BY INDICATION Indication INR1. Prophylaxis of venous thrombosis 2.0 - 3.0 (orthopedic surgery), Prophylaxis of venous thrombosis (other than high-risk surgery), Treatment of Deep Vein Thrombosis/Pulmonary Embolism, Prevention of systemic embolism - Tissue heart valves, Acute Myocardial Infarction (to prevent systemic embolism), Valvular heart disease, Atrial Fibrillation, B[place]aflet mechanical valve in aortic position.2. Mechanical prosthetic valves (high risk), 2.5 - 3.5 Presence of Lupus Anticoagulant or Antiphospholipid Antibodies, Prevention of systemic embolism - Acute Myocardial Infarction (to prevent recurrent infarct). CBC W/AUTO [id number] 03:38:00* Test Item Value Reference Range Comments WHITE BLOOD CELL (test code=WBC) 6.29 x10 3/uL 4.5-11.0 RED BLOOD CELL (test code=RBC) 4.29 x10 6/uL 3.54-5.02 HEMOGLOBIN (test code=HGB) 13.0 g/dL 11.0-15.0 HEMATOCRIT (test code=HCT) 37.5 % 33.0-45.0 MEAN CELL VOLUME (test code=MCV) 87.4 fL 81.0-99.0 MEAN CELL HGB (test code=MCH) 30.3 pg 27.0-33.0 MEAN CELL HGB CONCETRATION (test code=MCHC) 34.7 g/dL 33.0-37.0 RED CELL DISTRIBUTION WIDTH CV (test code=RDW) 15.0 % 11.5-14.5 RED CELL DISTRIBUTION WIDTH SD (test code=RDW-SD) 48.0 fL 37.0-54.0 PLATELET COUNT (test code=PLT) 68 x10 3/uL 150-400 IMMATURE PLATELET FRACTION (test code=IPF) 3.2 % 0.9-11.2 MEAN PLATELET VOLUME (test code=MPV) 10.0 fL 7.0-9.0 LYMPHOCYTE % (test code=LY%) % 14.0-32.0 MANUAL DIFF REQUIRED (test code=MDIFF) HGB [id number] 02:34:00* Test Item Value Reference Range Comments HEMOGLOBIN (test code=HGB) 12.4 g/dL 11.0-15.0 HEMATOCRIT (test code=HCT) 36.3 % 33.0-45.0 HGB [id number] 22:44:00* Test Item Value Reference Range Comments HEMOGLOBIN (test code=HGB) 13.7 g/dL 11.0-15.0 HEMATOCRIT (test code=HCT) 41.3 % 33.0-45.0 POC ARTERIAL BLOOD [id number] 20:34:00* Test Item Value Reference Range Comments POC ARTERIAL BLOOD GAS PH (test code=POCPHA) 7.416 7.35-7.45 POC ARTERIAL BLOOD GAS PCO2 (test code=YVULFG0I) 34.4 mmHg 35.0-45 POC TCO2 ARTERIAL (test code=POCTCO2) 23.1 POC ARTERIAL BLOOD GAS PO2 (test code=BGGGM7F) 172.3 mmHg 80-100.0 POC HCO3 ARTERIAL (test code=BADSIX2T) 22.1 MMOL/L 22.0-26.0 POC BASE EXCESS (test code=POCBEA) -2.0 MMOL/L -4.0-4.0 POC O2 SATURATION (test code=POCO2S) 99.6 % 90-100 [id number] 20:34:00* Test Item Value Reference Range Comments SODIUM (test code=NA/ABG) MEQ/L 134-147 [id number] 20:34:00* Test Item Value Reference Range Comments POTASSIUM (test code=K/ABG) MEQ/L 3.4-5.0 [id number] 20:34:00* Test Item Value Reference Range Comments CHLORIDE (test code=CL/ABG) MEQ/L 100-108 CREATININE [id number] 20:34:00* Test Item Value Reference Range Comments CREATININE ABG (test code=CREAABG) mg/dL 0.6-1.0 [id number] 20:34:00* Test Item Value Reference Range Comments HEMOGLOBIN (test code=HGB/ABG) G/DL 11.0-15.0 [id number] 20:34:00* Test Item Value Reference Range Comments HEMATOCRIT (test code=HCT/ABG) % 33.0-45.0 POC IONIZED [id number] 20:34:00* Test Item Value Reference Range Comments POC IONIZED CALCIUM (test code=POCCA) MMOL/L 1.12-1.32 POC [id number] 20:34:00* Test Item Value Reference Range Comments POC GLUCOSE (test code=POCGLU) MG/DL 70-110 POC ARTERIAL BLOOD [id number] 20:34:00* Test Item Value Reference Range Comments POC ARTERIAL BLOOD GAS PH (test code=POCPHA) 7.416 7.35-7.45 POC ARTERIAL BLOOD GAS PCO2 (test code=SSGCGL0Q) 34.4 mmHg 35.0-45 POC TCO2 ARTERIAL (test code=POCTCO2) 23.1 POC ARTERIAL BLOOD GAS PO2 (test code=SBNBE9L) 172.3 mmHg 80-100.0 POC HCO3 ARTERIAL (test code=UYZVUI6G) 22.1 MMOL/L 22.0-26.0 POC BASE EXCESS (test code=POCBEA) -2.0 MMOL/L -4.0-4.0 POC O2 SATURATION (test code=POCO2S) 99.6 % 90-100 [id number] 20:34:00* Test Item Value Reference Range Comments SODIUM (test code=NA/ABG) 141 MEQ/L 134-147 [id number] 20:34:00* Test Item Value Reference Range Comments POTASSIUM (test code=K/ABG) MEQ/L 3.4-5.0 [id number] 20:34:00* Test Item Value Reference Range Comments CHLORIDE (test code=CL/ABG) MEQ/L 100-108 CREATININE [id number] 20:34:00* Test Item Value Reference Range Comments CREATININE ABG (test code=CREAABG) mg/dL 0.6-1.0 [id number] 20:34:00* Test Item Value Reference Range Comments HEMOGLOBIN (test code=HGB/ABG) G/DL 11.0-15.0 [id number] 20:34:00* Test Item Value Reference Range Comments HEMATOCRIT (test code=HCT/ABG) % 33.0-45.0 POC IONIZED [id number] 20:34:00* Test Item Value Reference Range Comments POC IONIZED CALCIUM (test code=POCCA) MMOL/L 1.12-1.32 POC [id number] 20:34:00* Test Item Value Reference Range Comments POC GLUCOSE (test code=POCGLU) MG/DL 70-110 POC ARTERIAL BLOOD [id number] 20:34:00* Test Item Value Reference Range Comments POC ARTERIAL BLOOD GAS PH (test code=POCPHA) 7.416 7.35-7.45 POC ARTERIAL BLOOD GAS PCO2 (test code=DELFUD1S) 34.4 mmHg 35.0-45 POC TCO2 ARTERIAL (test code=POCTCO2) 23.1 POC ARTERIAL BLOOD GAS PO2 (test code=YTNKV5F) 172.3 mmHg 80-100.0 POC HCO3 ARTERIAL (test code=MPAEHD8J) 22.1 MMOL/L 22.0-26.0 POC BASE EXCESS (test code=POCBEA) -2.0 MMOL/L -4.0-4.0 POC O2 SATURATION (test code=POCO2S) 99.6 % 90-100 [id number] 20:34:00* Test Item Value Reference Range Comments SODIUM (test code=NA/ABG) 141 MEQ/L 134-147 [id number] 20:34:00* Test Item Value Reference Range Comments POTASSIUM (test code=K/ABG) 2.8 MEQ/L 3.4-5.0 [id number] 20:34:00* Test Item Value Reference Range Comments CHLORIDE (test code=CL/ABG) MEQ/L 100-108 CREATININE [id number] 20:34:00* Test Item Value Reference Range Comments CREATININE ABG (test code=CREAABG) mg/dL 0.6-1.0 [id number] 20:34:00* Test Item Value Reference Range Comments HEMOGLOBIN (test code=HGB/ABG) G/DL 11.0-15.0 [id number] 20:34:00* Test Item Value Reference Range Comments HEMATOCRIT (test code=HCT/ABG) % 33.0-45.0 POC IONIZED [id number] 20:34:00* Test Item Value Reference Range Comments POC IONIZED CALCIUM (test code=POCCA) MMOL/L 1.12-1.32 POC [id number] 20:34:00* Test Item Value Reference Range Comments POC GLUCOSE (test code=POCGLU) MG/DL 70-110 POC ARTERIAL BLOOD [id number] 20:34:00* Test Item Value Reference Range Comments POC ARTERIAL BLOOD GAS PH (test code=POCPHA) 7.416 7.35-7.45 POC ARTERIAL BLOOD GAS PCO2 (test code=KJXCEB6N) 34.4 mmHg 35.0-45 POC TCO2 ARTERIAL (test code=POCTCO2) 23.1 POC ARTERIAL BLOOD GAS PO2 (test code=GQQCY0U) 172.3 mmHg 80-100.0 POC HCO3 ARTERIAL (test code=UPYWLH5L) 22.1 MMOL/L 22.0-26.0 POC BASE EXCESS (test code=POCBEA) -2.0 MMOL/L -4.0-4.0 POC O2 SATURATION (test code=POCO2S) 99.6 % 90-100 [id number] 20:34:00* Test Item Value Reference Range Comments SODIUM (test code=NA/ABG) 141 MEQ/L 134-147 [id number] 20:34:00* Test Item Value Reference Range Comments POTASSIUM (test code=K/ABG) 2.8 MEQ/L 3.4-5.0 [id number] 20:34:00* Test Item Value Reference Range Comments CHLORIDE (test code=CL/ABG) MEQ/L 100-108 CREATININE [id number] 20:34:00* Test Item Value Reference Range Comments CREATININE ABG (test code=CREAABG) mg/dL 0.6-1.0 [id number] 20:34:00* Test Item Value Reference Range Comments HEMOGLOBIN (test code=HGB/ABG) G/DL 11.0-15.0 [id number] 20:34:00* Test Item Value Reference Range Comments HEMATOCRIT (test code=HCT/ABG) % 33.0-45.0 POC IONIZED [id number] 20:34:00* Test Item Value Reference Range Comments POC IONIZED CALCIUM (test code=POCCA) 0.97 MMOL/L 1.12-1.32 POC [id number] 20:34:00* Test Item Value Reference Range Comments POC GLUCOSE (test code=POCGLU) MG/DL 70-110 POC ARTERIAL BLOOD [id number] 20:34:00* Test Item Value Reference Range Comments POC ARTERIAL BLOOD GAS PH (test code=POCPHA) 7.416 7.35-7.45 POC ARTERIAL BLOOD GAS PCO2 (test code=SDPUNE3A) 34.4 mmHg 35.0-45 POC TCO2 ARTERIAL (test code=POCTCO2) 23.1 POC ARTERIAL BLOOD GAS PO2 (test code=NVVVL6Z) 172.3 mmHg 80-100.0 POC HCO3 ARTERIAL (test code=QZSDYY6J) 22.1 MMOL/L 22.0-26.0 POC BASE EXCESS (test code=POCBEA) -2.0 MMOL/L -4.0-4.0 POC O2 SATURATION (test code=POCO2S) 99.6 % 90-100 [id number] 20:34:00* Test Item Value Reference Range Comments SODIUM (test code=NA/ABG) 141 MEQ/L 134-147 [id number] 20:34:00* Test Item Value Reference Range Comments POTASSIUM (test code=K/ABG) 2.8 MEQ/L 3.4-5.0 [id number] 20:34:00* Test Item Value Reference Range Comments CHLORIDE (test code=CL/ABG) MEQ/L 100-108 CREATININE [id number] 20:34:00* Test Item Value Reference Range Comments CREATININE ABG (test code=CREAABG) mg/dL 0.6-1.0 [id number] 20:34:00* Test Item Value Reference Range Comments HEMOGLOBIN (test code=HGB/ABG) G/DL 11.0-15.0 [id number] 20:34:00* Test Item Value Reference Range Comments HEMATOCRIT (test code=HCT/ABG) % 33.0-45.0 POC IONIZED [id number] 20:34:00* Test Item Value Reference Range Comments POC IONIZED CALCIUM (test code=POCCA) 0.97 MMOL/L 1.12-1.32 POC [id number] 20:34:00* Test Item Value Reference Range Comments POC GLUCOSE (test code=POCGLU) 94 MG/DL 70-110 POC ARTERIAL BLOOD [id number] 20:34:00* Test Item Value Reference Range Comments POC ARTERIAL BLOOD GAS PH (test code=POCPHA) 7.416 7.35-7.45 POC ARTERIAL BLOOD GAS PCO2 (test code=AMWQDF6H) 34.4 mmHg 35.0-45 POC TCO2 ARTERIAL (test code=POCTCO2) 23.1 POC ARTERIAL BLOOD GAS PO2 (test code=MHTUR6L) 172.3 mmHg 80-100.0 POC HCO3 ARTERIAL (test code=AEMVQW2M) 22.1 MMOL/L 22.0-26.0 POC BASE EXCESS (test code=POCBEA) -2.0 MMOL/L -4.0-4.0 POC O2 SATURATION (test code=POCO2S) 99.6 % 90-100 [id number] 20:34:00* Test Item Value Reference Range Comments SODIUM (test code=NA/ABG) 141 MEQ/L 134-147 [id number] 20:34:00* Test Item Value Reference Range Comments POTASSIUM (test code=K/ABG) 2.8 MEQ/L 3.4-5.0 [id number] 20:34:00* Test Item Value Reference Range Comments CHLORIDE (test code=CL/ABG) MEQ/L 100-108 CREATININE [id number] 20:34:00* Test Item Value Reference Range Comments CREATININE ABG (test code=CREAABG) mg/dL 0.6-1.0 [id number] 20:34:00* Test Item Value Reference Range Comments HEMOGLOBIN (test code=HGB/ABG) G/DL 11.0-15.0 [id number] 20:34:00* Test Item Value Reference Range Comments HEMATOCRIT (test code=HCT/ABG) 31 % 33.0-45.0 POC IONIZED [id number] 20:34:00* Test Item Value Reference Range Comments POC IONIZED CALCIUM (test code=POCCA) 0.97 MMOL/L 1.12-1.32 POC [id number] 20:34:00* Test Item Value Reference Range Comments POC GLUCOSE (test code=POCGLU) 94 MG/DL 70-110 POC ARTERIAL BLOOD [id number] 20:34:00* Test Item Value Reference Range Comments POC ARTERIAL BLOOD GAS PH (test code=POCPHA) 7.416 7.35-7.45 POC ARTERIAL BLOOD GAS PCO2 (test code=TGYWJA5V) 34.4 mmHg 35.0-45 POC TCO2 ARTERIAL (test code=POCTCO2) 23.1 POC ARTERIAL BLOOD GAS PO2 (test code=SNPYH5H) 172.3 mmHg 80-100.0 POC HCO3 ARTERIAL (test code=LFTCEL8Y) 22.1 MMOL/L 22.0-26.0 POC BASE EXCESS (test code=POCBEA) -2.0 MMOL/L -4.0-4.0 POC O2 SATURATION (test code=POCO2S) 99.6 % 90-100 [id number] 20:34:00* Test Item Value Reference Range Comments SODIUM (test code=NA/ABG) 141 MEQ/L 134-147 [id number] 20:34:00* Test Item Value Reference Range Comments POTASSIUM (test code=K/ABG) 2.8 MEQ/L 3.4-5.0 [id number] 20:34:00* Test Item Value Reference Range Comments CHLORIDE (test code=CL/ABG) MEQ/L 100-108 CREATININE [id number] 20:34:00* Test Item Value Reference Range Comments CREATININE ABG (test code=CREAABG) mg/dL 0.6-1.0 [id number] 20:34:00* Test Item Value Reference Range Comments HEMOGLOBIN (test code=HGB/ABG) 10.6 G/DL 11.0-15.0 [id number] 20:34:00* Test Item Value Reference Range Comments HEMATOCRIT (test code=HCT/ABG) 31 % 33.0-45.0 POC IONIZED [id number] 20:34:00* Test Item Value Reference Range Comments POC IONIZED CALCIUM (test code=POCCA) 0.97 MMOL/L 1.12-1.32 POC [id number] 20:34:00* Test Item Value Reference Range Comments POC GLUCOSE (test code=POCGLU) 94 MG/DL 70-110 POC ARTERIAL BLOOD [id number] 20:34:00* Test Item Value Reference Range Comments POC ARTERIAL BLOOD GAS PH (test code=POCPHA) 7.416 7.35-7.45 POC ARTERIAL BLOOD GAS PCO2 (test code=JLSYXT0D) 34.4 mmHg 35.0-45 POC TCO2 ARTERIAL (test code=POCTCO2) 23.1 POC ARTERIAL BLOOD GAS PO2 (test code=HRFXW4M) 172.3 mmHg 80-100.0 POC HCO3 ARTERIAL (test code=CADNCH1R) 22.1 MMOL/L 22.0-26.0 POC BASE EXCESS (test code=POCBEA) -2.0 MMOL/L -4.0-4.0 POC O2 SATURATION (test code=POCO2S) 99.6 % 90-100 [id number] 20:34:00* Test Item Value Reference Range Comments SODIUM (test code=NA/ABG) 141 MEQ/L 134-147 [id number] 20:34:00* Test Item Value Reference Range Comments POTASSIUM (test code=K/ABG) 2.8 MEQ/L 3.4-5.0 [id number] 20:34:00* Test Item Value Reference Range Comments CHLORIDE (test code=CL/ABG) 107 MEQ/L 100-108 CREATININE [id number] 20:34:00* Test Item Value Reference Range Comments CREATININE ABG (test code=CREAABG) mg/dL 0.6-1.0 [id number] 20:34:00* Test Item Value Reference Range Comments HEMOGLOBIN (test code=HGB/ABG) 10.6 G/DL 11.0-15.0 [id number] 20:34:00* Test Item Value Reference Range Comments HEMATOCRIT (test code=HCT/ABG) 31 % 33.0-45.0 POC IONIZED [id number] 20:34:00* Test Item Value Reference Range Comments POC IONIZED CALCIUM (test code=POCCA) 0.97 MMOL/L 1.12-1.32 POC [id number] 20:34:00* Test Item Value Reference Range Comments POC GLUCOSE (test code=POCGLU) 94 MG/DL 70-110 POC ARTERIAL BLOOD [id number] 20:34:00* Test Item Value Reference Range Comments POC ARTERIAL BLOOD GAS PH (test code=POCPHA) 7.416 7.35-7.45 POC ARTERIAL BLOOD GAS PCO2 (test code=ORLNNC8N) 34.4 mmHg 35.0-45 POC TCO2 ARTERIAL (test code=POCTCO2) 23.1 POC ARTERIAL BLOOD GAS PO2 (test code=BLPQO8I) 172.3 mmHg 80-100.0 POC HCO3 ARTERIAL (test code=TOZVDX1Q) 22.1 MMOL/L 22.0-26.0 POC BASE EXCESS (test code=POCBEA) -2.0 MMOL/L -4.0-4.0 POC O2 SATURATION (test code=POCO2S) 99.6 % 90-100 [id number] 20:34:00* Test Item Value Reference Range Comments SODIUM (test code=NA/ABG) 141 MEQ/L 134-147 [id number] 20:34:00* Test Item Value Reference Range Comments POTASSIUM (test code=K/ABG) 2.8 MEQ/L 3.4-5.0 [id number] 20:34:00* Test Item Value Reference Range Comments CHLORIDE (test code=CL/ABG) 107 MEQ/L 100-108 CREATININE [id number] 20:34:00* Test Item Value Reference Range Comments CREATININE ABG (test code=CREAABG) 0.8 mg/dL 0.6-1.0 [id number] 20:34:00* Test Item Value Reference Range Comments HEMOGLOBIN (test code=HGB/ABG) 10.6 G/DL 11.0-15.0 [id number] 20:34:00* Test Item Value Reference Range Comments HEMATOCRIT (test code=HCT/ABG) 31 % 33.0-45.0 POC IONIZED [id number] 20:34:00* Test Item Value Reference Range Comments POC IONIZED CALCIUM (test code=POCCA) 0.97 MMOL/L 1.12-1.32 POC [id number] 20:34:00* Test Item Value Reference Range Comments POC GLUCOSE (test code=POCGLU) 94 MG/DL 70-110 POC ARTERIAL BLOOD [id number] 20:00:00* Test Item Value Reference Range Comments POC ARTERIAL BLOOD GAS PH (test code=POCPHA) 7.447 7.35-7.45 POC ARTERIAL BLOOD GAS PCO2 (test code=JSQPPI8U) 35.1 mmHg 35.0-45 POC TCO2 ARTERIAL (test code=POCTCO2) 25.3 POC ARTERIAL BLOOD GAS PO2 (test code=RGHWU9U) 204.2 mmHg 80-100.0 POC HCO3 ARTERIAL (test code=TDFPFT0P) 24.2 MMOL/L 22.0-26.0 POC BASE EXCESS (test code=POCBEA) 0.3 MMOL/L -4.0-4.0 POC O2 SATURATION (test code=POCO2S) 99.8 % 90-100 [id number] 20:00:00* Test Item Value Reference Range Comments SODIUM (test code=NA/ABG) MEQ/L 134-147 [id number] 20:00:00* Test Item Value Reference Range Comments POTASSIUM (test code=K/ABG) MEQ/L 3.4-5.0 [id number] 20:00:00* Test Item Value Reference Range Comments CHLORIDE (test code=CL/ABG) MEQ/L 100-108 CREATININE [id number] 20:00:00* Test Item Value Reference Range Comments CREATININE ABG (test code=CREAABG) mg/dL 0.6-1.0 [id number] 20:00:00* Test Item Value Reference Range Comments HEMOGLOBIN (test code=HGB/ABG) G/DL 11.0-15.0 [id number] 20:00:00* Test Item Value Reference Range Comments HEMATOCRIT (test code=HCT/ABG) % 33.0-45.0 POC IONIZED [id number] 20:00:00* Test Item Value Reference Range Comments POC IONIZED CALCIUM (test code=POCCA) MMOL/L 1.12-1.32 POC [id number] 20:00:00* Test Item Value Reference Range Comments POC GLUCOSE (test code=POCGLU) MG/DL 70-110 POC ARTERIAL BLOOD [id number] 20:00:00* Test Item Value Reference Range Comments POC ARTERIAL BLOOD GAS PH (test code=POCPHA) 7.447 7.35-7.45 POC ARTERIAL BLOOD GAS PCO2 (test code=GNEXCR5Y) 35.1 mmHg 35.0-45 POC TCO2 ARTERIAL (test code=POCTCO2) 25.3 POC ARTERIAL BLOOD GAS PO2 (test code=KKPMC6Q) 204.2 mmHg 80-100.0 POC HCO3 ARTERIAL (test code=SMKENQ7L) 24.2 MMOL/L 22.0-26.0 POC BASE EXCESS (test code=POCBEA) 0.3 MMOL/L -4.0-4.0 POC O2 SATURATION (test code=POCO2S) 99.8 % 90-100 [id number] 20:00:00* Test Item Value Reference Range Comments SODIUM (test code=NA/ABG) 142 MEQ/L 134-147 [id number] 20:00:00* Test Item Value Reference Range Comments POTASSIUM (test code=K/ABG) MEQ/L 3.4-5.0 [id number] 20:00:00* Test Item Value Reference Range Comments CHLORIDE (test code=CL/ABG) MEQ/L 100-108 CREATININE [id number] 20:00:00* Test Item Value Reference Range Comments CREATININE ABG (test code=CREAABG) mg/dL 0.6-1.0 [id number] 20:00:00* Test Item Value Reference Range Comments HEMOGLOBIN (test code=HGB/ABG) G/DL 11.0-15.0 [id number] 20:00:00* Test Item Value Reference Range Comments HEMATOCRIT (test code=HCT/ABG) % 33.0-45.0 POC IONIZED [id number] 20:00:00* Test Item Value Reference Range Comments POC IONIZED CALCIUM (test code=POCCA) MMOL/L 1.12-1.32 POC [id number] 20:00:00* Test Item Value Reference Range Comments POC GLUCOSE (test code=POCGLU) MG/DL 70-110 POC ARTERIAL BLOOD [id number] 20:00:00* Test Item Value Reference Range Comments POC ARTERIAL BLOOD GAS PH (test code=POCPHA) 7.447 7.35-7.45 POC ARTERIAL BLOOD GAS PCO2 (test code=MSWMUT0V) 35.1 mmHg 35.0-45 POC TCO2 ARTERIAL (test code=POCTCO2) 25.3 POC ARTERIAL BLOOD GAS PO2 (test code=CBNKJ6N) 204.2 mmHg 80-100.0 POC HCO3 ARTERIAL (test code=ZORTLK6S) 24.2 MMOL/L 22.0-26.0 POC BASE EXCESS (test code=POCBEA) 0.3 MMOL/L -4.0-4.0 POC O2 SATURATION (test code=POCO2S) 99.8 % 90-100 [id number] 20:00:00* Test Item Value Reference Range Comments SODIUM (test code=NA/ABG) 142 MEQ/L 134-147 [id number] 20:00:00* Test Item Value Reference Range Comments POTASSIUM (test code=K/ABG) 3.1 MEQ/L 3.4-5.0 [id number] 20:00:00* Test Item Value Reference Range Comments CHLORIDE (test code=CL/ABG) MEQ/L 100-108 CREATININE [id number] 20:00:00* Test Item Value Reference Range Comments CREATININE ABG (test code=CREAABG) mg/dL 0.6-1.0 [id number] 20:00:00* Test Item Value Reference Range Comments HEMOGLOBIN (test code=HGB/ABG) G/DL 11.0-15.0 [id number] 20:00:00* Test Item Value Reference Range Comments HEMATOCRIT (test code=HCT/ABG) % 33.0-45.0 POC IONIZED [id number] 20:00:00* Test Item Value Reference Range Comments POC IONIZED CALCIUM (test code=POCCA) MMOL/L 1.12-1.32 POC [id number] 20:00:00* Test Item Value Reference Range Comments POC GLUCOSE (test code=POCGLU) MG/DL 70-110 POC ARTERIAL BLOOD [id number] 20:00:00* Test Item Value Reference Range Comments POC ARTERIAL BLOOD GAS PH (test code=POCPHA) 7.447 7.35-7.45 POC ARTERIAL BLOOD GAS PCO2 (test code=IHDDIH2D) 35.1 mmHg 35.0-45 POC TCO2 ARTERIAL (test code=POCTCO2) 25.3 POC ARTERIAL BLOOD GAS PO2 (test code=IQTPF0V) 204.2 mmHg 80-100.0 POC HCO3 ARTERIAL (test code=BYHKTF7E) 24.2 MMOL/L 22.0-26.0 POC BASE EXCESS (test code=POCBEA) 0.3 MMOL/L -4.0-4.0 POC O2 SATURATION (test code=POCO2S) 99.8 % 90-100 [id number] 20:00:00* Test Item Value Reference Range Comments SODIUM (test code=NA/ABG) 142 MEQ/L 134-147 [id number] 20:00:00* Test Item Value Reference Range Comments POTASSIUM (test code=K/ABG) 3.1 MEQ/L 3.4-5.0 [id number] 20:00:00* Test Item Value Reference Range Comments CHLORIDE (test code=CL/ABG) MEQ/L 100-108 CREATININE [id number] 20:00:00* Test Item Value Reference Range Comments CREATININE ABG (test code=CREAABG) mg/dL 0.6-1.0 [id number] 20:00:00* Test Item Value Reference Range Comments HEMOGLOBIN (test code=HGB/ABG) G/DL 11.0-15.0 [id number] 20:00:00* Test Item Value Reference Range Comments HEMATOCRIT (test code=HCT/ABG) % 33.0-45.0 POC IONIZED [id number] 20:00:00* Test Item Value Reference Range Comments POC IONIZED CALCIUM (test code=POCCA) 1.05 MMOL/L 1.12-1.32 POC [id number] 20:00:00* Test Item Value Reference Range Comments POC GLUCOSE (test code=POCGLU) MG/DL 70-110 POC ARTERIAL BLOOD [id number] 20:00:00* Test Item Value Reference Range Comments POC ARTERIAL BLOOD GAS PH (test code=POCPHA) 7.447 7.35-7.45 POC ARTERIAL BLOOD GAS PCO2 (test code=BUKFIN4Y) 35.1 mmHg 35.0-45 POC TCO2 ARTERIAL (test code=POCTCO2) 25.3 POC ARTERIAL BLOOD GAS PO2 (test code=MOVYE9F) 204.2 mmHg 80-100.0 POC HCO3 ARTERIAL (test code=YXQDJT5K) 24.2 MMOL/L 22.0-26.0 POC BASE EXCESS (test code=POCBEA) 0.3 MMOL/L -4.0-4.0 POC O2 SATURATION (test code=POCO2S) 99.8 % 90-100 [id number] 20:00:00* Test Item Value Reference Range Comments SODIUM (test code=NA/ABG) 142 MEQ/L 134-147 [id number] 20:00:00* Test Item Value Reference Range Comments POTASSIUM (test code=K/ABG) 3.1 MEQ/L 3.4-5.0 [id number] 20:00:00* Test Item Value Reference Range Comments CHLORIDE (test code=CL/ABG) MEQ/L 100-108 CREATININE [id number] 20:00:00* Test Item Value Reference Range Comments CREATININE ABG (test code=CREAABG) mg/dL 0.6-1.0 [id number] 20:00:00* Test Item Value Reference Range Comments HEMOGLOBIN (test code=HGB/ABG) G/DL 11.0-15.0 [id number] 20:00:00* Test Item Value Reference Range Comments HEMATOCRIT (test code=HCT/ABG) % 33.0-45.0 POC IONIZED [id number] 20:00:00* Test Item Value Reference Range Comments POC IONIZED CALCIUM (test code=POCCA) 1.05 MMOL/L 1.12-1.32 POC [id number] 20:00:00* Test Item Value Reference Range Comments POC GLUCOSE (test code=POCGLU) 77 MG/DL 70-110 POC ARTERIAL BLOOD [id number] 20:00:00* Test Item Value Reference Range Comments POC ARTERIAL BLOOD GAS PH (test code=POCPHA) 7.447 7.35-7.45 POC ARTERIAL BLOOD GAS PCO2 (test code=EREWTH8P) 35.1 mmHg 35.0-45 POC TCO2 ARTERIAL (test code=POCTCO2) 25.3 POC ARTERIAL BLOOD GAS PO2 (test code=UQEJP0T) 204.2 mmHg 80-100.0 POC HCO3 ARTERIAL (test code=SIGHCW5F) 24.2 MMOL/L 22.0-26.0 POC BASE EXCESS (test code=POCBEA) 0.3 MMOL/L -4.0-4.0 POC O2 SATURATION (test code=POCO2S) 99.8 % 90-100 [id number] 20:00:00* Test Item Value Reference Range Comments SODIUM (test code=NA/ABG) 142 MEQ/L 134-147 [id number] 20:00:00* Test Item Value Reference Range Comments POTASSIUM (test code=K/ABG) 3.1 MEQ/L 3.4-5.0 [id number] 20:00:00* Test Item Value Reference Range Comments CHLORIDE (test code=CL/ABG) MEQ/L 100-108 CREATININE [id number] 20:00:00* Test Item Value Reference Range Comments CREATININE ABG (test code=CREAABG) mg/dL 0.6-1.0 [id number] 20:00:00* Test Item Value Reference Range Comments HEMOGLOBIN (test code=HGB/ABG) G/DL 11.0-15.0 [id number] 20:00:00* Test Item Value Reference Range Comments HEMATOCRIT (test code=HCT/ABG) 25 % 33.0-45.0 POC IONIZED [id number] 20:00:00* Test Item Value Reference Range Comments POC IONIZED CALCIUM (test code=POCCA) 1.05 MMOL/L 1.12-1.32 POC [id number] 20:00:00* Test Item Value Reference Range Comments POC GLUCOSE (test code=POCGLU) 77 MG/DL 70-110 POC ARTERIAL BLOOD [id number] 20:00:00* Test Item Value Reference Range Comments POC ARTERIAL BLOOD GAS PH (test code=POCPHA) 7.447 7.35-7.45 POC ARTERIAL BLOOD GAS PCO2 (test code=ZEDUSK7Y) 35.1 mmHg 35.0-45 POC TCO2 ARTERIAL (test code=POCTCO2) 25.3 POC ARTERIAL BLOOD GAS PO2 (test code=YSAZV5K) 204.2 mmHg 80-100.0 POC HCO3 ARTERIAL (test code=ZUJOQP0A) 24.2 MMOL/L 22.0-26.0 POC BASE EXCESS (test code=POCBEA) 0.3 MMOL/L -4.0-4.0 POC O2 SATURATION (test code=POCO2S) 99.8 % 90-100 [id number] 20:00:00* Test Item Value Reference Range Comments SODIUM (test code=NA/ABG) 142 MEQ/L 134-147 [id number] 20:00:00* Test Item Value Reference Range Comments POTASSIUM (test code=K/ABG) 3.1 MEQ/L 3.4-5.0 [id number] 20:00:00* Test Item Value Reference Range Comments CHLORIDE (test code=CL/ABG) MEQ/L 100-108 CREATININE [id number] 20:00:00* Test Item Value Reference Range Comments CREATININE ABG (test code=CREAABG) mg/dL 0.6-1.0 [id number] 20:00:00* Test Item Value Reference Range Comments HEMOGLOBIN (test code=HGB/ABG) 8.5 G/DL 11.0-15.0 [id number] 20:00:00* Test Item Value Reference Range Comments HEMATOCRIT (test code=HCT/ABG) 25 % 33.0-45.0 POC IONIZED [id number] 20:00:00* Test Item Value Reference Range Comments POC IONIZED CALCIUM (test code=POCCA) 1.05 MMOL/L 1.12-1.32 POC [id number] 20:00:00* Test Item Value Reference Range Comments POC GLUCOSE (test code=POCGLU) 77 MG/DL 70-110 POC ARTERIAL BLOOD [id number] 20:00:00* Test Item Value Reference Range Comments POC ARTERIAL BLOOD GAS PH (test code=POCPHA) 7.447 7.35-7.45 POC ARTERIAL BLOOD GAS PCO2 (test code=FBZKAC2A) 35.1 mmHg 35.0-45 POC TCO2 ARTERIAL (test code=POCTCO2) 25.3 POC ARTERIAL BLOOD GAS PO2 (test code=UMLXM0I) 204.2 mmHg 80-100.0 POC HCO3 ARTERIAL (test code=NWSAIM7R) 24.2 MMOL/L 22.0-26.0 POC BASE EXCESS (test code=POCBEA) 0.3 MMOL/L -4.0-4.0 POC O2 SATURATION (test code=POCO2S) 99.8 % 90-100 [id number] 20:00:00* Test Item Value Reference Range Comments SODIUM (test code=NA/ABG) 142 MEQ/L 134-147 [id number] 20:00:00* Test Item Value Reference Range Comments POTASSIUM (test code=K/ABG) 3.1 MEQ/L 3.4-5.0 [id number] 20:00:00* Test Item Value Reference Range Comments CHLORIDE (test code=CL/ABG) 107 MEQ/L 100-108 CREATININE [id number] 20:00:00* Test Item Value Reference Range Comments CREATININE ABG (test code=CREAABG) mg/dL 0.6-1.0 [id number] 20:00:00* Test Item Value Reference Range Comments HEMOGLOBIN (test code=HGB/ABG) 8.5 G/DL 11.0-15.0 [id number] 20:00:00* Test Item Value Reference Range Comments HEMATOCRIT (test code=HCT/ABG) 25 % 33.0-45.0 POC IONIZED [id number] 20:00:00* Test Item Value Reference Range Comments POC IONIZED CALCIUM (test code=POCCA) 1.05 MMOL/L 1.12-1.32 POC [id number] 20:00:00* Test Item Value Reference Range Comments POC GLUCOSE (test code=POCGLU) 77 MG/DL 70-110 POC ARTERIAL BLOOD [id number] 20:00:00* Test Item Value Reference Range Comments POC ARTERIAL BLOOD GAS PH (test code=POCPHA) 7.447 7.35-7.45 POC ARTERIAL BLOOD GAS PCO2 (test code=UKQKIJ1I) 35.1 mmHg 35.0-45 POC TCO2 ARTERIAL (test code=POCTCO2) 25.3 POC ARTERIAL BLOOD GAS PO2 (test code=EEJRY7D) 204.2 mmHg 80-100.0 POC HCO3 ARTERIAL (test code=TEYIQE9V) 24.2 MMOL/L 22.0-26.0 POC BASE EXCESS (test code=POCBEA) 0.3 MMOL/L -4.0-4.0 POC O2 SATURATION (test code=POCO2S) 99.8 % 90-100 [id number] 20:00:00* Test Item Value Reference Range Comments SODIUM (test code=NA/ABG) 142 MEQ/L 134-147 [id number] 20:00:00* Test Item Value Reference Range Comments POTASSIUM (test code=K/ABG) 3.1 MEQ/L 3.4-5.0 [id number] 20:00:00* Test Item Value Reference Range Comments CHLORIDE (test code=CL/ABG) 107 MEQ/L 100-108 CREATININE [id number] 20:00:00* Test Item Value Reference Range Comments CREATININE ABG (test code=CREAABG) 0.8 mg/dL 0.6-1.0 [id number] 20:00:00* Test Item Value Reference Range Comments HEMOGLOBIN (test code=HGB/ABG) 8.5 G/DL 11.0-15.0 [id number] 20:00:00* Test Item Value Reference Range Comments HEMATOCRIT (test code=HCT/ABG) 25 % 33.0-45.0 POC IONIZED [id number] 20:00:00* Test Item Value Reference Range Comments POC IONIZED CALCIUM (test code=POCCA) 1.05 MMOL/L 1.12-1.32 POC [id number] 20:00:00* Test Item Value Reference Range Comments POC GLUCOSE (test code=POCGLU) 77 MG/DL 70-110 HGB [id number] 16:20:00* Test Item Value Reference Range Comments HEMOGLOBIN (test code=HGB) 7.4 g/dL 11.0-15.0 HEMATOCRIT (test code=HCT) 21.4 % 33.0-45.0 CBC W/AUTO [id number] 14:23:00* Test Item Value Reference Range Comments WHITE BLOOD CELL (test code=WBC) 2.77 x10 3/uL 4.5-11.0 RED BLOOD CELL (test code=RBC) 1.48 x10 6/uL 3.54-5.02 HEMOGLOBIN (test code=HGB) 4.5 g/dL 11.0-15.0 HEMATOCRIT (test code=HCT) 13.3 % 33.0-45.0 MEAN CELL VOLUME (test code=MCV) 89.9 fL 81.0-99.0 MEAN CELL HGB (test code=MCH) 30.4 pg 27.0-33.0 MEAN CELL HGB CONCETRATION (test code=MCHC) 33.8 g/dL 33.0-37.0 RED CELL DISTRIBUTION WIDTH CV (test code=RDW) 15.3 % 11.5-14.5 RED CELL DISTRIBUTION WIDTH SD (test code=RDW-SD) 50.3 fL 37.0-54.0 PLATELET COUNT (test code=PLT) x10 3/uL 150-400 SEE PLT EST. Previously reported result: 8 x10\\S\\3/uLEdited by: CAMILA on 12/14/18:727734 1422: PLT previously reported as: 8 D*L x10\\S\\3/uL IMMATURE PLATELET FRACTION (test code=IPF) 16.3 % 0.9-11.2 MEAN PLATELET VOLUME (test code=MPV) 13.1 fL 7.0-9.0 MANUAL DIFF REQUIRED (test code=MDIFF) YES WBC [id number] 14:23:00* Test Item Value Reference Range Comments SEGMENTED NEUTROPHILS (test code=SEG) 75.0 % 37-69 LYMPHOCYTE (test code=LYMPH) 13.0 % 23-55 REACTIVE LYMPH (test code=RELYMPH) 2.0 % MONOCYTE (test code=MON) 4.0 % 0-10 EOSINOPHIL (test code=EOS) 1.0 % 0.0-4.0 MYELOCYTE (test code=MYELO) 4.0 % 0.0-0.0 PROMYELOCYTE (test code=PROM) 1.0 % 0-0 NUCLEATED RED BLOOD CELL (test code=NRBC) 7.0 % POLYCHROMASIA (test code=POLC) 1+ POIKILOCYTOSIS (test code=POIK) 1+ ANISOCYTOSIS (test code=ANISO) 1+ MICROCYTOSIS (test code=MICR) 1+ OVALOCYTES (test code=OVAL) FEW PLATELET ESTIMATE (test code=PLTEST) 24-30 THOUSAND ADEQUATE PLATELET MORPHOLOGY (test code=PLTMORPH) GIANT PLATELETS ARTERIAL BLOOD [id number] 12:23:00* Test Item Value Reference Range Comments ARTERIAL BLOOD GAS PH (test code=PHA) 7.431 7.35-7.45 ARTERIAL BLOOD GAS PCO2 (test code=PCO2A) 35.7 mmHg 35-45 ARTERIAL BLOOD GAS PO2 (test code=PO2A) 186 mmHg 80-100 BICARBONATE TOTAL HCO3 (test code=HCO3) 23.8 mmol/L 22.0-26.0 BASE EXCESS (test code=DIYA) -1.0 mmol/L -4-4 ABG O2 SATURATION (test code=SATA) 100 % 90-100 FIO2 (test code=FIO2A) 40 % ABG DELIVERY (test code=GLADYS) Vent ABG VENT MODE (test code=MODEA) AC v con ABG VENT RESP RATE (test code=RRA) 12 /MIN ABG TIDAL VOLUME (test code=TVA) 450 ml ABG PEEP (test code=PEEPA) 5 cmH2O Performed by certified traffic control operator at [facility] ABG TEMPERATURE (test code=TEMPA) 37.0 F ABG SITE (test code=SITEA) Art line PREDICTED AA GRADIENT (test code=AP) 63 PREDICTED PO2 (test code=OP) 179 a/A RATIO (test code=RATIO) 0.77 TCO2 ARTERIAL (test code=TCO2A) 25 A-A GRADIENT (test code=AAGRADE) 56 CBC W/AUTO [id number] 12:13:00* Test Item Value Reference Range Comments WHITE BLOOD CELL (test code=WBC) 2.77 x10 3/uL 4.5-11.0 RED BLOOD CELL (test code=RBC) 1.48 x10 6/uL 3.54-5.02 HEMOGLOBIN (test code=HGB) 4.5 g/dL 11.0-15.0 HEMATOCRIT (test code=HCT) 13.3 % 33.0-45.0 MEAN CELL VOLUME (test code=MCV) 89.9 fL 81.0-99.0 MEAN CELL HGB (test code=MCH) 30.4 pg 27.0-33.0 MEAN CELL HGB CONCETRATION (test code=MCHC) 33.8 g/dL 33.0-37.0 RED CELL DISTRIBUTION WIDTH CV (test code=RDW) 15.3 % 11.5-14.5 RED CELL DISTRIBUTION WIDTH SD (test code=RDW-SD) 50.3 fL 37.0-54.0 PLATELET COUNT (test code=PLT) 8 x10 3/uL 150-400 IMMATURE PLATELET FRACTION (test code=IPF) 16.3 % 0.9-11.2 MEAN PLATELET VOLUME (test code=MPV) 13.1 fL 7.0-9.0 MANUAL DIFF REQUIRED (test code=MDIFF) YES PATHOLOGISTS [id number] 12:13:00* Test Item Value Reference Range Comments PATHOLOGISTS FINDINGS (test code=PATH FIND) WBC [id number] 12:13:00* Test Item Value Reference Range Comments SEGMENTED NEUTROPHILS (test code=SEG) 75.0 % 37-69 LYMPHOCYTE (test code=LYMPH) 13.0 % 23-55 REACTIVE LYMPH (test code=RELYMPH) 2.0 % MONOCYTE (test code=MON) 4.0 % 0-10 EOSINOPHIL (test code=EOS) 1.0 % 0.0-4.0 MYELOCYTE (test code=MYELO) 4.0 % 0.0-0.0 PROMYELOCYTE (test code=PROM) 1.0 % 0-0 NUCLEATED RED BLOOD CELL (test code=NRBC) 7.0 % POLYCHROMASIA (test code=POLC) 1+ POIKILOCYTOSIS (test code=POIK) 1+ ANISOCYTOSIS (test code=ANISO) 1+ MICROCYTOSIS (test code=MICR) 1+ OVALOCYTES (test code=OVAL) FEW PLATELET ESTIMATE (test code=PLTEST) 24-30 THOUSAND ADEQUATE PLATELET MORPHOLOGY (test code=PLTMORPH) GIANT PLATELETS - XR CHEST 1 [id number] 11:58:00 FAX: Jordy Martinez DO [phone] [place]: St: ADM FAX: Alexsandra Barron MD [phone] FAX: Dwayne Millan [phone] Name: HEIDI STEINER [facility] [place] : 1960 Age/S: 58/F [address] [place] [address] Unit #: [id number] Loc: [address] [place] [address] Phys: Alexsandra Barron MD Acct: [id number] Dis Date: Status: ADM IN ONE #: [phone] Exam Date: 12/14/2018 1125 FAX #: [phone] Reason: ETT EXAMS: CPT CODE: [id number] XR CHEST 1 V [id number] Patient: HEIDI STEINER. : 1960; Age: 58 years; Gender: Female. MR: [id number]. Ordering physician: Alexsandra Barron MD. PORTABLE C HEST AP: HISTORY: ET tube placement. COMPARISON: Chest x-ray 12/13/2017. FINDINGS: Portable frontal view of the est was obtained. Tip of ET tube is at the level the sternoclavic ular joints. Tip of NG tube overlies gastroesophageal junction, while the sidehole overlies distal esophagus. NG tube needs to be advance d further into the stomach to optimize function. Left Port-A -Cath and right IJ central venous catheter are unchanged. There juarez s been improved aeration of the lungs since the previous examination. Ulices ateral lower lung field atelectasis persists with possible bilateral trace volume pleural effusions. Atherosclerotic calcification is note d. The cardiomediastinal silhouette and pulmonary vasculature are unremark able. The partially visualized upper abdomen is unremarkable. SL: [id number] at 1158 Reported and signed by: Jackson Castaneda M.D. CC: Jordy Gambino DO; Alexsandra Barron MD; Joycelyn schneider MD Technologist: RT Suman(R) Latricia Hobbs ate/Time/By: 12/14/2018 (1158) : By: [email or web address] Orig Print D/T: S: 10/2018 (0209) PAGE 1 Signed Repor t PROTHROMBIN [id number] 11:33:00* Test Item Value Reference Range Comments PROTHROMBIN TIME PATIENT (test code=PTP) 17.6 SECONDS 9.3-12.9 INTERNATIONAL NORMAL RATIO (test code=INR) 1.5 0.8-1.2 TARGET INR BY INDICATION Indication INR1. Prophylaxis of venous thrombosis 2.0 - 3.0 (orthopedic surgery), Prophylaxis of venous thrombosis (other than high-risk surgery), Treatment of Deep Vein Thrombosis/Pulmonary Embolism, Prevention of systemic embolism - Tissue heart valves, Acute Myocardial Infarction (to prevent systemic embolism), Valvular heart disease, Atrial Fibrillation, Bileaflet mechanical valve in aortic position.2. Mechanical prosthetic valves (high risk), 2.5 - 3.5 Presence of Lupus Anticoagulant or Antiphospholipid Antibodies, Prevention of systemic embolism - Acute Myocardial Infarction (to prevent recurrent infarct). THROMBOPLASTIN TIME [id number] 11:33:00* Test Item Value Reference Range Comments THROMBOPLASTIN TIME PARTIAL (test code=PTT) 40.9 Seconds 25.0-39.5 Therapeutic Range: 61.8-83.8 Sec Effective 11/13/2013 [id number] 11:33:00* Test Item Value Reference Range Comments FIBRINOGEN (test code=FIB) 274 MG/DL 160-450 Excess administration of anticoagulants and/or FibrinDegradation Products may affect Fibrinogen value. - US ABDOMEN [id number] 11:32:00 Name: HEIDI STEINER [facility] [place] : 1960 Age/S: 58 / F [address] [place] [address] Unit #: [id number] Loc: [place] [address] Phys: Salud Pavon MD Acct: [id number] Dis Date: Status: ADM IN PHONE #: [phone] Exam Date: 12/14/2018 1128 FAX #: [phone] Reason: FAST EXAM, CONCERN FOR INTRA-ABDOMINAL BLEED EXAMS: CPT CODE: [id number] US ABDOMEN LTD [id number] EXAM: US ABDOMEN COMPLETE DATE: 12/14/2018 10:51 AM : 1960; Age: 58 years y/o Female INDICATION: FAST EXAM, CONCERN FOR INTRA-ABDOMINAL BLEED COMPARISON: None. TECHNIQUE: Multiplanar grayscale and color Doppler ultrasound of the abdomen. Findings/ impression: Small perihepatic free fluid is seen. Large amount of free fluid is noted in the right lower quadrant. Moderate left pleural effusion. Left kidney and spleen are poorly visualized and grossly unremarkable. Within the midline abdomen and left lower quadrant, complex large echogenic focus is partially seen which may represent hemorrhagic products. SL: [id number] at 1132 Reported and signed by: Madelyn Christine D.O. CC: Salud Pavon MD; Jordy Gambino DO; Joycelyn Person MD Technologist: Evie Parra Trnohb Date/Time: 12/14/2018 (8232) [email or web address] Orig Print D/T: S: 12/14/2018 (9198) Probe: PAGE 1 Signed Report SURGICAL [id number] 11:23:00 RUN DATE: 12/14/18 [facility] *LIVE* PAGE 1 RUN TIME: 1122 Specimen Inqui ry RUN USER: INTERFACE PATIENT: HEIDI STEINER ACCT #: [id number] LOC: ICU U #: [id number] AGE/SX: 58/F ROOM: [facility] RE11/29/18REG DR: Logn Person : 56 BED: 1 DIS: STATUS: ADM IN TLOC: SPEC #: [id number] RECD: 12/12/18 STATUS: SIVAN WASSERMAN #: [id number] [place]ON: 12/12/[address]: Long Person MD ENTERED: 12/13/18 SP TYPE: SURG SPEC OTHR DR: Shakila Mayorga i, MD, Jeffrey B MD Jogi, Vikas MD Kirkwood,Jordy Poe JR,Dre Cuba MD, MD,Kleber jarrell,Jami Pollard MDORDERED: GM LEVEL 4 CODES: [id number] - SOFT TISSUES, N COPIES TO: [place] [address] [place] [address] Jordan Esparza MD [address] [facility] [address] [place] [id number] Naif Alex MD [address] [facility] [address] [place] [phone] Jordy Gambino DO [address] [facility] [address] [place] [address] Terrence Bourgeois JR, MD [address] [facility] [address] [place] [address] Dre Alejandre MD [address] [place], [place] [phone] CONTINUED ON NEXT PAGE ----- -------RUN DATE: 12/14/18 [place] [facility] *LIVE* PAGE 2 RUN TIME: 1123 Specimen Inquiry RUN USER: INTERFACE SPEC #: [id number] PATIENT: HEIDI STEINER #[id number] (Continued) COPIES TO: (Continued) Kleber Marquez MD [address] [facility] [place] [address] [place] [address] [id number] Jami Blas MD [address] [place] [address] [phone] Joycelyn Person MD [address] [facility] [address] [place] [address] [email or web address] PROCEDURES: GM LEVEL 4 (Incomplete) TISSUES: 1. SOFT TISSUES, NOS - Soft tissue, abdominal region, excision FINAL DIAGNOSIS Soft tisue, abdominal region, excisi on: Chronic inflammation and necrosis with mature fat consistent with the cl inical impression of colostomy dehiscence. GROSS AND MICROSCOPIC TIERA S EXAMINATION: Received in formalin and labeled abdominal soft tissue are se gments of necrotic tissue and fat that measure together up to 2 cm. Entirely submitted. MICROSCOPIC EXAMINATION: Sections of the "Soft tisue, abdominal region, excision" reve al changes of chronic inflammation and necrosis with mature fat. The change s are consistent with the history of colostomy dehiscence. POST-OP DIAGN OSIS Colostomy dehiscence PRE-OP DIAGNOSIS Colostomy dehiscence--- --------- Signed SIGNATURE ON FILE Shima Juárez MD 1123 END OF REPORT CBC W/AUTO [id number] 09:48:00* Test Item Value Reference Range Comments WHITE BLOOD CELL (test code=WBC) 2.77 x10 3/uL 4.5-11.0 RED BLOOD CELL (test code=RBC) 1.48 x10 6/uL 3.54-5.02 HEMOGLOBIN (test code=HGB) 4.5 g/dL 11.0-15.0 HEMATOCRIT (test code=HCT) 13.3 % 33.0-45.0 MEAN CELL VOLUME (test code=MCV) 89.9 fL 81.0-99.0 MEAN CELL HGB (test code=MCH) 30.4 pg 27.0-33.0 MEAN CELL HGB CONCETRATION (test code=MCHC) 33.8 g/dL 33.0-37.0 RED CELL DISTRIBUTION WIDTH CV (test code=RDW) 15.3 % 11.5-14.5 RED CELL DISTRIBUTION WIDTH SD (test code=RDW-SD) 50.3 fL 37.0-54.0 PLATELET COUNT (test code=PLT) 8 x10 3/uL 150-400 IMMATURE PLATELET FRACTION (test code=IPF) 16.3 % 0.9-11.2 MEAN PLATELET VOLUME (test code=MPV) 13.1 fL 7.0-9.0 MANUAL DIFF REQUIRED (test code=MDIFF) YES PATHOLOGISTS [id number] 09:48:00* Test Item Value Reference Range Comments PATHOLOGISTS FINDINGS (test code=PATH FIND) WBC [id number] 09:48:00* Test Item Value Reference Range Comments SEGMENTED NEUTROPHILS (test code=SEG) 75.0 % 37-69 LYMPHOCYTE (test code=LYMPH) 13.0 % 23-55 REACTIVE LYMPH (test code=RELYMPH) 2.0 % MONOCYTE (test code=MON) 4.0 % 0-10 EOSINOPHIL (test code=EOS) 1.0 % 0.0-4.0 MYELOCYTE (test code=MYELO) 4.0 % 0.0-0.0 PROMYELOCYTE (test code=PROM) 1.0 % 0-0 NUCLEATED RED BLOOD CELL (test code=NRBC) 7.0 % POLYCHROMASIA (test code=POLC) 1+ POIKILOCYTOSIS (test code=POIK) 1+ ANISOCYTOSIS (test code=ANISO) 1+ MICROCYTOSIS (test code=MICR) 1+ OVALOCYTES (test code=OVAL) FEW PLATELET ESTIMATE (test code=PLTEST) 24-30 THOUSAND ADEQUATE PLATELET MORPHOLOGY (test code=PLTMORPH) GIANT PLATELETS CBC W/AUTO [id number] 09:47:00* Test Item Value Reference Range Comments WHITE BLOOD CELL (test code=WBC) 2.77 x10 3/uL 4.5-11.0 RED BLOOD CELL (test code=RBC) 1.48 x10 6/uL 3.54-5.02 HEMOGLOBIN (test code=HGB) 4.5 g/dL 11.0-15.0 HEMATOCRIT (test code=HCT) 13.3 % 33.0-45.0 MEAN CELL VOLUME (test code=MCV) 89.9 fL 81.0-99.0 MEAN CELL HGB (test code=MCH) 30.4 pg 27.0-33.0 MEAN CELL HGB CONCETRATION (test code=MCHC) 33.8 g/dL 33.0-37.0 RED CELL DISTRIBUTION WIDTH CV (test code=RDW) 15.3 % 11.5-14.5 RED CELL DISTRIBUTION WIDTH SD (test code=RDW-SD) 50.3 fL 37.0-54.0 PLATELET COUNT (test code=PLT) 8 x10 3/uL 150-400 IMMATURE PLATELET FRACTION (test code=IPF) 16.3 % 0.9-11.2 MEAN PLATELET VOLUME (test code=MPV) 13.1 fL 7.0-9.0 MANUAL DIFF REQUIRED (test code=MDIFF) YES PATHOLOGISTS [id number] 09:47:00* Test Item Value Reference Range Comments PATHOLOGISTS FINDINGS (test code=PATH FIND) WBC [id number] 09:47:00* Test Item Value Reference Range Comments ANISOCYTOSIS (test code=ANISO) PLATELET ESTIMATE (test code=PLTEST) THOUSAND ADEQUATE CBC W/AUTO [id number] 09:47:00* Test Item Value Reference Range Comments WHITE BLOOD CELL (test code=WBC) 2.77 x10 3/uL 4.5-11.0 RED BLOOD CELL (test code=RBC) 1.48 x10 6/uL 3.54-5.02 HEMOGLOBIN (test code=HGB) 4.5 g/dL 11.0-15.0 HEMATOCRIT (test code=HCT) 13.3 % 33.0-45.0 MEAN CELL VOLUME (test code=MCV) 89.9 fL 81.0-99.0 MEAN CELL HGB (test code=MCH) 30.4 pg 27.0-33.0 MEAN CELL HGB CONCETRATION (test code=MCHC) 33.8 g/dL 33.0-37.0 RED CELL DISTRIBUTION WIDTH CV (test code=RDW) 15.3 % 11.5-14.5 RED CELL DISTRIBUTION WIDTH SD (test code=RDW-SD) 50.3 fL 37.0-54.0 PLATELET COUNT (test code=PLT) 8 x10 3/uL 150-400 IMMATURE PLATELET FRACTION (test code=IPF) 16.3 % 0.9-11.2 MEAN PLATELET VOLUME (test code=MPV) 13.1 fL 7.0-9.0 MANUAL DIFF REQUIRED (test code=MDIFF) YES WBC [id number] 09:47:00* Test Item Value Reference Range Comments ANISOCYTOSIS (test code=ANISO) PLATELET ESTIMATE (test code=PLTEST) THOUSAND ADEQUATE CBC W/AUTO [id number] 09:20:00* Test Item Value Reference Range Comments WHITE BLOOD CELL (test code=WBC) 2.77 x10 3/uL 4.5-11.0 RED BLOOD CELL (test code=RBC) 1.48 x10 6/uL 3.54-5.02 HEMOGLOBIN (test code=HGB) 4.5 g/dL 11.0-15.0 HEMATOCRIT (test code=HCT) 13.3 % 33.0-45.0 MEAN CELL VOLUME (test code=MCV) 89.9 fL 81.0-99.0 MEAN CELL HGB (test code=MCH) 30.4 pg 27.0-33.0 MEAN CELL HGB CONCETRATION (test code=MCHC) 33.8 g/dL 33.0-37.0 RED CELL DISTRIBUTION WIDTH CV (test code=RDW) 15.3 % 11.5-14.5 RED CELL DISTRIBUTION WIDTH SD (test code=RDW-SD) 50.3 fL 37.0-54.0 PLATELET COUNT (test code=PLT) 8 x10 3/uL 150-400 IMMATURE PLATELET FRACTION (test code=IPF) 16.3 % 0.9-11.2 MEAN PLATELET VOLUME (test code=MPV) 13.1 fL 7.0-9.0 LYMPHOCYTE % (test code=LY%) % 14.0-32.0 MANUAL DIFF REQUIRED (test code=MDIFF) PLT [id number] 09:20:00* Test Item Value Reference Range Comments PLATELET ESTIMATE (test code=PLTEST) THOUSAND ADEQUATE CBC W/AUTO [id number] 09:20:00* Test Item Value Reference Range Comments WHITE BLOOD CELL (test code=WBC) 2.77 x10 3/uL 4.5-11.0 RED BLOOD CELL (test code=RBC) 1.48 x10 6/uL 3.54-5.02 HEMOGLOBIN (test code=HGB) 4.5 g/dL 11.0-15.0 HEMATOCRIT (test code=HCT) 13.3 % 33.0-45.0 MEAN CELL VOLUME (test code=MCV) 89.9 fL 81.0-99.0 MEAN CELL HGB (test code=MCH) 30.4 pg 27.0-33.0 MEAN CELL HGB CONCETRATION (test code=MCHC) 33.8 g/dL 33.0-37.0 RED CELL DISTRIBUTION WIDTH CV (test code=RDW) 15.3 % 11.5-14.5 RED CELL DISTRIBUTION WIDTH SD (test code=RDW-SD) 50.3 fL 37.0-54.0 PLATELET COUNT (test code=PLT) 8 x10 3/uL 150-400 IMMATURE PLATELET FRACTION (test code=IPF) 16.3 % 0.9-11.2 MEAN PLATELET VOLUME (test code=MPV) 13.1 fL 7.0-9.0 LYMPHOCYTE % (test code=LY%) % 14.0-32.0 MANUAL DIFF REQUIRED (test code=MDIFF) PLT [id number] 09:20:00* Test Item Value Reference Range Comments PLATELET ESTIMATE (test code=PLTEST) THOUSAND ADEQUATE - XR ABDOMEN 1V (KUB)2018-12-14 08:46:00 FAX: Salud Pavon MD [place]: St: ADM FAX: Jordy Martinez DO [phone] FAX: Dwayne Millan [phone] Name: HEIDI STEINER [facility] : 1960 Age/S: 58/F [address] [place] [address] Unit #: [id number] Loc: G.M324 [place] [address] Phys: Salud Pavon MD Acct: [id number] Dis Date: Status: ADM IN ONE #: [phone] Exam Date: 12/14/2018 0839 FAX #: [phone] Reason: abdominal distension EXAMS: CPT CODE: [id number] XR ABDOMEN 1V (KUB) [id number] EXAM: XR ABDOM EN 1 VIEW DATE: 12/14/2018 7:47 AM : 1960; Age: 58 years y/ o Female Clinical Indication: abdominal distension C OMPARISON: December 12, 2018 TECHNIQUE: AP view of the abdomen. FINDINGS: Abdomen and bowel: NG tube tip overlies the stomach. No significant small bowel distention. Nonspecific bowel g as pattern. Calcifications: Cholecystectomy clips. Pelvic skin st aples. Bones and soft tissues: No acute abnormality. IMPRESSION: Nonspecific bowel gas pattern. SL: [id number] at 0846 Reported and signed by: Madelyn Christine D.O. CC: Salud Pavon MD; Jordy Gambino DO; Joycelyn Person MD Technologist: RT Suman(R) Trnscrd Date/Time/By: 12/14/2018 (0898) : By: [id number] Orig Print D/T: S: 12/14/2018 (0850) PAGE 1 Signed Report COMPREHENSIVE METABOLIC [id number] 07:30:00* Test Item Value Reference Range Comments SODIUM (test code=NA) 140 mEq/L 134-147 POTASSIUM (test code=K) 3.1 mEq/L 3.4-5.0 CHLORIDE (test code=CL) 107 mEq/L 100-108 CARBON DIOXIDE (test code=CO2) 27 mEq/L 21-33 ANION GAP (test code=GAP) 9 0-20 GLUCOSE (test code=GLU) 97 mg/dL 70-110 BLOOD UREA NITROGEN (test code=BUN) 20 mg/dL 7-18 GLOMERULAR FILTRATION RATE (test code=GFR) 56.6 80-90 Units of measure=ml/min/1.73 m2 CREATININE (test code=CREAT) 1.0 mg/dL 0.6-1.3 TOTAL PROTEIN (test code=PROT) 3.9 g/dL 6.4-8.2 ALBUMIN (test code=ALB) 2.60 g/dL 3.4-5.0 CALCIUM (test code=CA) 7.2 mg/dL 8.0-10.5 BILIRUBIN TOTAL (test code=BILT) 3.90 mg/dL 0.0-1.0 SGOT/AST (test code=AST) 71 IUnit/L 15-37 SGPT/ALT (test code=ALT) 32 IUnit/L 15-65 ALKALINE PHOSPHATASE TOTAL (test code=ALKP) 49 IUnit/L 20-125 [id number] 06:49:00* Test Item Value Reference Range Comments GLUBED (test code=GLUBED) 93 MG/DL 70-110 Performed by certified traffic control operator at [facility] HGB [id number] 21:11:00* Test Item Value Reference Range Comments HEMOGLOBIN (test code=HGB) 5.7 g/dL 11.0-15.0 HEMATOCRIT (test code=HCT) 17.1 % 33.0-45.0 HGB [id number] 13:28:00* Test Item Value Reference Range Comments HEMOGLOBIN (test code=HGB) 5.4 g/dL 11.0-15.0 HEMATOCRIT (test code=HCT) 15.7 % 33.0-45.0 PROTHROMBIN [id number] 09:48:00* Test Item Value Reference Range Comments PROTHROMBIN TIME PATIENT (test code=PTP) 19.2 SECONDS 9.3-12.9 INTERNATIONAL NORMAL RATIO (test code=INR) 1.7 0.8-1.2 TARGET INR BY INDICATION Indication INR1. Prophylaxis of venous thrombosis 2.0 - 3.0 (orthopedic surgery), Prophylaxis of venous thrombosis (other than high-risk surgery), Treatment of Deep Vein Thrombosis/Pulmonary Embolism, Prevention of systemic embolism - Tissue heart valves, Acute Myocardial Infarction (to prevent systemic embolism), Valvular heart disease, Atrial Fibrillation, Bileaflet mechanical valve in aortic position.2. Mechanical prosthetic valves (high risk), 2.5 - 3.5 Presence of Lupus Anticoagulant or Antiphospholipid Antibodies, Prevention of systemic embolism - Acute Myocardial Infarction (to prevent recurrent infarct). THROMBOPLASTIN TIME [id number] 09:48:00* Test Item Value Reference Range Comments THROMBOPLASTIN TIME PARTIAL (test code=PTT) 38.1 Seconds 25.0-39.5 Therapeutic Range: 61.8-83.8 Sec Effective 11/13/2013 [id number] 09:48:00* Test Item Value Reference Range Comments FIBRINOGEN (test code=FIB) 141 MG/DL 160-450 Excess administration of anticoagulants and/or FibrinDegradation Products may affect Fibrinogen value. CBC W/AUTO [id number] 08:38:00* Test Item Value Reference Range Comments WHITE BLOOD CELL (test code=WBC) 5.54 x10 3/uL 4.5-11.0 RED BLOOD CELL (test code=RBC) 2.67 x10 6/uL 3.54-5.02 HEMOGLOBIN (test code=HGB) 8.1 g/dL 11.0-15.0 HEMATOCRIT (test code=HCT) 23.3 % 33.0-45.0 MEAN CELL VOLUME (test code=MCV) 87.3 fL 81.0-99.0 MEAN CELL HGB (test code=MCH) 30.3 pg 27.0-33.0 MEAN CELL HGB CONCETRATION (test code=MCHC) 34.8 g/dL 33.0-37.0 RED CELL DISTRIBUTION WIDTH CV (test code=RDW) 15.2 % 11.5-14.5 RED CELL DISTRIBUTION WIDTH SD (test code=RDW-SD) 47.9 fL 37.0-54.0 PLATELET COUNT (test code=PLT) 62 x10 3/uL 150-400 IMMATURE PLATELET FRACTION (test code=IPF) 7.0 % 0.9-11.2 MEAN PLATELET VOLUME (test code=MPV) 11.9 fL 7.0-9.0 MANUAL DIFF REQUIRED (test code=MDIFF) YES WBC [id number] 08:38:00* Test Item Value Reference Range Comments SEGMENTED NEUTROPHILS (test code=SEG) 89.9 % 37-69 LYMPHOCYTE (test code=LYMPH) 6.4 % 23-55 MONOCYTE (test code=MON) 2.8 % 0-10 METAMYELOCYTE (test code=META) 0.9 % 0.0-0.0 NUCLEATED RED BLOOD CELL (test code=NRBC) 14.7 % POIKILOCYTOSIS (test code=POIK) 1+ ANISOCYTOSIS (test code=ANISO) 2+ OVALOCYTES (test code=OVAL) 1+ PLATELET ESTIMATE (test code=PLTEST) 52-65 THOUSAND ADEQUATE PLATELET MORPHOLOGY (test code=PLTMORPH) GIANT PLATELETS FEW CBC W/AUTO [id number] 08:31:00* Test Item Value Reference Range Comments WHITE BLOOD CELL (test code=WBC) 5.54 x10 3/uL 4.5-11.0 RED BLOOD CELL (test code=RBC) 2.67 x10 6/uL 3.54-5.02 HEMOGLOBIN (test code=HGB) 8.1 g/dL 11.0-15.0 HEMATOCRIT (test code=HCT) 23.3 % 33.0-45.0 MEAN CELL VOLUME (test code=MCV) 87.3 fL 81.0-99.0 MEAN CELL HGB (test code=MCH) 30.3 pg 27.0-33.0 MEAN CELL HGB CONCETRATION (test code=MCHC) 34.8 g/dL 33.0-37.0 RED CELL DISTRIBUTION WIDTH CV (test code=RDW) 15.2 % 11.5-14.5 RED CELL DISTRIBUTION WIDTH SD (test code=RDW-SD) 47.9 fL 37.0-54.0 PLATELET COUNT (test code=PLT) 62 x10 3/uL 150-400 IMMATURE PLATELET FRACTION (test code=IPF) 7.0 % 0.9-11.2 MEAN PLATELET VOLUME (test code=MPV) 11.9 fL 7.0-9.0 MANUAL DIFF REQUIRED (test code=MDIFF) YES WBC [id number] 08:31:00* Test Item Value Reference Range Comments ANISOCYTOSIS (test code=ANISO) PLATELET ESTIMATE (test code=PLTEST) THOUSAND ADEQUATE CBC W/AUTO [id number] 08:31:00* Test Item Value Reference Range Comments WHITE BLOOD CELL (test code=WBC) 5.54 x10 3/uL 4.5-11.0 RED BLOOD CELL (test code=RBC) 2.67 x10 6/uL 3.54-5.02 HEMOGLOBIN (test code=HGB) 8.1 g/dL 11.0-15.0 HEMATOCRIT (test code=HCT) 23.3 % 33.0-45.0 MEAN CELL VOLUME (test code=MCV) 87.3 fL 81.0-99.0 MEAN CELL HGB (test code=MCH) 30.3 pg 27.0-33.0 MEAN CELL HGB CONCETRATION (test code=MCHC) 34.8 g/dL 33.0-37.0 RED CELL DISTRIBUTION WIDTH CV (test code=RDW) 15.2 % 11.5-14.5 RED CELL DISTRIBUTION WIDTH SD (test code=RDW-SD) 47.9 fL 37.0-54.0 PLATELET COUNT (test code=PLT) 62 x10 3/uL 150-400 IMMATURE PLATELET FRACTION (test code=IPF) 7.0 % 0.9-11.2 MEAN PLATELET VOLUME (test code=MPV) 11.9 fL 7.0-9.0 MANUAL DIFF REQUIRED (test code=MDIFF) YES WBC [id number] 08:31:00* Test Item Value Reference Range Comments ANISOCYTOSIS (test code=ANISO) PLATELET ESTIMATE (test code=PLTEST) THOUSAND ADEQUATE - XR CHEST 1 [id number] 07:26:00 FAX: Jordy Martinez DO [phone] [place]: St: ADM FAX: Alexsandra Barron MD [phone] FAX: Dwayne Millan [phone] Name: HEIDI STEINER [facility] : 1960 Age/S: 58/F [address] [place] [address] Unit #: [id number] Loc: G.M324 [place] [address] Phys: Alexsandra Barron MD Acct: [id number] Dis Date: Status: ADM IN ONE #: [phone] Exam Date: 12/13/2018 0536 FAX #: [phone] Reason: ETT EXAMS: CPT CODE: [id number] XR CHEST 1 V [id number] CHEST, SINGLE VIEW HISTORY: Intubated Comparison made to prior c hest x-ray dated 12/12/18. FINDINGS: Endotracheal tu be tip is at the mid tracheal level. Nasogastric tube tip is just within the stomach and should be advanced. Left subclavian Port-A-Cath, right IJ central venous catheter position is stable. There are increased intersti tial lung markings. Small bilateral pleural effusions are stable. Heart size is stable. IMPRESSION: 1. Inte rval development of CHF/interstitial edema. 2. Small volume bilateral p leural effusions are stable. 3. NG tube tip is at the distal esophagus and should be advanced. Otherwise adequate support line position. SL:01 at 0726 Reported and signed by: Yosi Gutierrez M.D. CC: Melo Gambino DO; Alexsandra Barron MD; Joycelyn Person MD Technologist: Laura liu, RT(R); Malcolm Lima RT(R) Trnscrd Date/Time/By: 12/13/2018 (05 10) : By: Fernando Orig Print D/T: S: 12/13/2018 (728) PAGE 1 Signed Report COMPREHENSIVE METABOLIC [id number] 07:15:00* Test Item Value Reference Range Comments SODIUM (test code=NA) 139 mEq/L 134-147 POTASSIUM (test code=K) 3.6 mEq/L 3.4-5.0 CHLORIDE (test code=CL) 107 mEq/L 100-108 CARBON DIOXIDE (test code=CO2) 24 mEq/L 21-33 ANION GAP (test code=GAP) 12 0-20 GLUCOSE (test code=GLU) 133 mg/dL 70-110 BLOOD UREA NITROGEN (test code=BUN) 19 mg/dL 7-18 GLOMERULAR FILTRATION RATE (test code=GFR) 63.9 80-90 Units of measure=ml/min/1.73 m2 CREATININE (test code=CREAT) 0.9 mg/dL 0.6-1.3 TOTAL PROTEIN (test code=PROT) 3.8 g/dL 6.4-8.2 ALBUMIN (test code=ALB) 2.20 g/dL 3.4-5.0 CALCIUM (test code=CA) 7.1 mg/dL 8.0-10.5 BILIRUBIN TOTAL (test code=BILT) 3.90 mg/dL 0.0-1.0 SGOT/AST (test code=AST) 283 IUnit/L 15-37 SGPT/ALT (test code=ALT) 75 IUnit/L 15-65 ALKALINE PHOSPHATASE TOTAL (test code=ALKP) 61 IUnit/L 20-125 CBC W/AUTO [id number] 07:08:00* Test Item Value Reference Range Comments WHITE BLOOD CELL (test code=WBC) 5.54 x10 3/uL 4.5-11.0 RED BLOOD CELL (test code=RBC) 2.67 x10 6/uL 3.54-5.02 HEMOGLOBIN (test code=HGB) 8.1 g/dL 11.0-15.0 HEMATOCRIT (test code=HCT) 23.3 % 33.0-45.0 MEAN CELL VOLUME (test code=MCV) 87.3 fL 81.0-99.0 MEAN CELL HGB (test code=MCH) 30.3 pg 27.0-33.0 MEAN CELL HGB CONCETRATION (test code=MCHC) 34.8 g/dL 33.0-37.0 RED CELL DISTRIBUTION WIDTH CV (test code=RDW) 15.2 % 11.5-14.5 RED CELL DISTRIBUTION WIDTH SD (test code=RDW-SD) 47.9 fL 37.0-54.0 PLATELET COUNT (test code=PLT) 62 x10 3/uL 150-400 IMMATURE PLATELET FRACTION (test code=IPF) 7.0 % 0.9-11.2 MEAN PLATELET VOLUME (test code=MPV) 11.9 fL 7.0-9.0 LYMPHOCYTE % (test code=LY%) % 14.0-32.0 MANUAL DIFF REQUIRED (test code=MDIFF) [id number] 06:27:00* Test Item Value Reference Range Comments GLUBED (test code=GLUBED) 127 MG/DL 70-110 Performed by certified traffic control operator at [facility] ARTERIAL BLOOD [id number] 06:02:00* Test Item Value Reference Range Comments ARTERIAL BLOOD GAS PH (test code=PHA) 7.409 7.35-7.45 ARTERIAL BLOOD GAS PCO2 (test code=PCO2A) 38.0 mmHg 35-45 ARTERIAL BLOOD GAS PO2 (test code=PO2A) 159 mmHg 80-100 BICARBONATE TOTAL HCO3 (test code=HCO3) 24.2 mmol/L 22.0-26.0 BASE EXCESS (test code=DIYA) -1.0 mmol/L -4-4 ABG O2 SATURATION (test code=SATA) 99 % 90-100 FIO2 (test code=FIO2A) 40 % ABG DELIVERY (test code=GLADYS) Vent ABG VENT MODE (test code=MODEA) AC v con ABG VENT RESP RATE (test code=RRA) 12 /MIN ABG TIDAL VOLUME (test code=TVA) 450 ml ABG PEEP (test code=PEEPA) 5 cmH2O Performed by certified traffic control operator at [facility] ABG TEMPERATURE (test code=TEMPA) 97.8 F ABG SITE (test code=SITEA) Art line PREDICTED AA GRADIENT (test code=AP) 62 PREDICTED PO2 (test code=OP) 177 a/A RATIO (test code=RATIO) 0.66 TCO2 ARTERIAL (test code=TCO2A) 25 A-A GRADIENT (test code=AAGRADE) 81 HGB [id number] 02:20:00* Test Item Value Reference Range Comments HEMOGLOBIN (test code=HGB) 4.6 g/dL 11.0-15.0 HEMATOCRIT (test code=HCT) 13.6 % 33.0-45.0 [id number] 23:43:00* Test Item Value Reference Range Comments GLUBED (test code=GLUBED) 119 MG/DL 70-110 Performed by certified traffic control operator at [facility] HEPARIN INDUCED [id number] 16:29:00* Test Item Value Reference Range Comments HEPARIN INDUCED THROMBOCYTOPEN (test code=HITAB) NEGATIVE () The HIT (PF4) test is a qualitative, fully automated lateximmunoassay that detects, IgG, IgM and IgA associatedantibodies and is used as a primary screening assay for thedetection of Platelet Factor 4 Heparin-Dependent Antibodies.Positive or negative is the final interpreted result. Thepositive or negative result should be used with otherinformation, including the clinical context, in forming adiagn osis such as the 4T score and the 2013 [place] Societyof Hematology guidelines. NEGATIVE results indicate the absence of Platelet Factor 4Heparin-Dependent Antibodies to IgG, IgM or IgA. A negativeresult for anti-PF4 heparin antibodies can support theclinical decision to exclude the presence of HIT, andtherefore continue heparin treatment. POSITIVE results indicate the presence of Platelet Factor 4Heparin-Dependent Antibodies to IgG, IgM or IgA. Although apositive result obtained using this assay may indicate thepresence of heparin-associated antibodies, a positive resultDOES NOT CONFIRM the diagnosis of HIT. Confirmation with afunctional test is recommended. A clinical reassesmentsupported by laboratory data should be performed beforeconfirmation or exclusion of the diagnosis. Some patientsmay have naturally occurring antibodies to PF4. If clinically indicated, a repeat study is recommended in2-3 days after the patient has been off heparin for at least4 hours. THROMBOPLASTIN TIME [id number] 13:49:00* Test Item Value Reference Range Comments THROMBOPLASTIN TIME PARTIAL (test code=PTT) 51.4 Seconds 25.0-39.5 Therapeutic Range: 61.8-83.8 Sec Effective 11/13/2013 [id number] 13:49:00* Test Item Value Reference Range Comments FIBRINOGEN (test code=FIB) 124 MG/DL 160-450 Excess administration of anticoagulants and/or FibrinDegradation Products may affect Fibrinogen value. - XR ABDOMEN 1V (KUB)2018-12-12 13:06:00 FAX: Jordy Martinez DO [phone] [place]: St: ADM FAX: Alexsandra Barron MD [phone] FAX: Dwayne Millan [phone] Name: HEIDI STEINER [facility] : 1960 Age/S: 58/F [address] [place] [address] Unit #: [id number] Loc: G.M324 [place] [address] Phys: Alexsandra Barron MD Acct: [id number] Dis Date: Status: ADM IN PH ONE #: [phone] Exam Date: 12/12/2018 1220 FAX #: [phone] Reason: NGT Placement EXAMS: CPT CODE: [id number] XR ABDOMEN 1V (KUB) [id number] ABDOMEN PORTAB LE AP VIEW, 12/12/2018 COMPARISON: CT abdomen dated December 09 CLINICAL HISTORY: NGT Placement FINDINGS: AP view of the lower chest and upper abdomen was obtained. NG tube tip overlies the gastric fundus with side port near the level of the GE ju nction. Visualized bowel gas pattern is nonspecific. There are a few surgical clips in the right upper quadrant of the abdomen. CONCLUSION: NG tube tip is at the level of the gastric f undus. at 1 306 Reported and signed by: Butch De La Torre M.D. CC: Jordy Gmabino DO; Alexsandra Barron MD; Joycelyn Person MD Technologist: Geovanna Leal RT(R) Trnscrd Date/Time/By: 12/12/2018 (1301) : By: [email or web address] Orig Print D/T: S: 12/12/2018 (1322) PAGE 1 Signed Report CBC W/AUTO [id number] 12:52:00* Test Item Value Reference Range Comments WHITE BLOOD CELL (test code=WBC) 13.24 x10 3/uL 4.5-11.0 RED BLOOD CELL (test code=RBC) 3.61 x10 6/uL 3.54-5.02 HEMOGLOBIN (test code=HGB) 10.8 g/dL 11.0-15.0 HEMATOCRIT (test code=HCT) 34.1 % 33.0-45.0 MEAN CELL VOLUME (test code=MCV) 94.5 fL 81.0-99.0 MEAN CELL HGB (test code=MCH) 29.9 pg 27.0-33.0 MEAN CELL HGB CONCETRATION (test code=MCHC) 31.7 g/dL 33.0-37.0 RED CELL DISTRIBUTION WIDTH CV (test code=RDW) 17.3 % 11.5-14.5 RED CELL DISTRIBUTION WIDTH SD (test code=RDW-SD) 55.8 fL 37.0-54.0 PLATELET COUNT (test code=PLT) 53 x10 3/uL 150-400 IMMATURE PLATELET FRACTION (test code=IPF) 19.9 % 0.9-11.2 MEAN PLATELET VOLUME (test code=MPV) 12.7 fL 7.0-9.0 MANUAL DIFF REQUIRED (test code=MDIFF) YES WBC [id number] 12:52:00* Test Item Value Reference Range Comments SEGMENTED NEUTROPHILS (test code=SEG) 78.2 % 37-69 LYMPHOCYTE (test code=LYMPH) 10.9 % 23-55 MONOCYTE (test code=MON) 9.1 % 0-10 PROMYELOCYTE (test code=PROM) 1.8 % 0-0 NUCLEATED RED BLOOD CELL (test code=NRBC) 21.8 % POLYCHROMASIA (test code=POLC) FEW POIKILOCYTOSIS (test code=POIK) SLIGHT ANISOCYTOSIS (test code=ANISO) 1+ MICROCYTOSIS (test code=MICR) FEW TEAR DROP CELLS (test code=TEAR) FEW PLATELET ESTIMATE (test code=PLTEST) 60-75 THOUSAND ADEQUATE PLATELET MORPHOLOGY (test code=PLTMORPH) LARGE PLATELETS FEW GIANT PLTS - XR CHEST 1 [id number] 12:40:00 FAX: Jordy Martinez DO [phone] [place]: St: ADM FAX: Alexsandra Barron MD [phone] FAX: Dwayne Millan [phone] Name: HEIDI STEINER [facility] : 1960 Age/S: 58/F [address] [place] [address] Unit #: [id number] Loc: G.M[address] [place] [address] Phys: Alexsandra Barron MD Acct: [id number] Dis Date: Status: ADM IN ONE #: [phone] Exam Date: 12/12/2018 1223 FAX #: [phone] Reason: Post intubation EXAMS: CPT CODE: [id number] XR CHEST 1 V [id number] EXAM: XR CHEST 1 VIEW DATE: 12/12/2018 12:05 PM : 1960; Age: 58 years y/o Female INDICATION: Post intubation COMPARISON: bruary 2018 TECHNIQUE: AP chest. FINDINGS/ IMPRESSION: Lines, tubes and hardware: Interval ET tube pl acement with tip overlying 4.8 cm above the yonathan. Stable right IJ caren e and left chest port. NG tube tip overlies the stomach however side po rt is above the level of the GE junction and should be advanced further by few centimeters. Heart, mediastinum and lungs: The heart size is normal for technique. Vascular calcifications are present at the aorta. Pulmonary vascularity is normal. Emphysematous lungs with mild left basilar airspace disease. SL: [id number] at 1240 Reported and signed by: Madelyn Christine D.O. CC: Jordy Gambino DO; Alexsandra Barron MD; Joycelyn Person MD Technologist: Geovanna Leal RT(R) Trnscrd Date/Time/By: 12/12/2018 (5885) : By: [email or web address] Orig Print D/T: S: 12/12/2018 (6634) PAGE 1 Signed Report ARTERIAL BLOOD GAS 2018-12-12 12:39:00* Test Item Value Reference Range Comments ARTERIAL BLOOD GAS PH (test code=PHA) 7.115 7.35-7.45 ARTERIAL BLOOD GAS PCO2 (test code=PCO2A) 16.6 mmHg 35-45 ARTERIAL BLOOD GAS PO2 (test code=PO2A) 555 mmHg 80-100 BICARBONATE TOTAL HCO3 (test code=HCO3) 5.3 mmol/L 22.0-26.0 BASE EXCESS (test code=DIYA) -24.0 mmol/L -4-4 ABG O2 SATURATION (test code=SATA) 100 % 90-100 FIO2 (test code=FIO2A) 100 % ABG DELIVERY (test code=GLADYS) Vent ABG VENT MODE (test code=MODEA) AC v con ABG VENT RESP RATE (test code=RRA) 12 /MIN ABG TIDAL VOLUME (test code=TVA) 450 ml ABG PEEP (test code=PEEPA) 5 cmH2O Performed by certified traffic control operator at [facility] ABG TEMPERATURE (test code=TEMPA) 98.6 F ABG SITE (test code=SITEA) Art line PREDICTED AA GRADIENT (test code=AP) 180 PREDICTED PO2 (test code=OP) 513 a/A RATIO (test code=RATIO) 0.80 TCO2 ARTERIAL (test code=TCO2A) 6 A-A GRADIENT (test code=AAGRADE) 138 CBC W/AUTO [id number] 12:37:00* Test Item Value Reference Range Comments WHITE BLOOD CELL (test code=WBC) 13.24 x10 3/uL 4.5-11.0 RED BLOOD CELL (test code=RBC) 3.61 x10 6/uL 3.54-5.02 HEMOGLOBIN (test code=HGB) 10.8 g/dL 11.0-15.0 HEMATOCRIT (test code=HCT) 34.1 % 33.0-45.0 MEAN CELL VOLUME (test code=MCV) 94.5 fL 81.0-99.0 MEAN CELL HGB (test code=MCH) 29.9 pg 27.0-33.0 MEAN CELL HGB CONCETRATION (test code=MCHC) 31.7 g/dL 33.0-37.0 RED CELL DISTRIBUTION WIDTH CV (test code=RDW) 17.3 % 11.5-14.5 RED CELL DISTRIBUTION WIDTH SD (test code=RDW-SD) 55.8 fL 37.0-54.0 PLATELET COUNT (test code=PLT) 53 x10 3/uL 150-400 IMMATURE PLATELET FRACTION (test code=IPF) 19.9 % 0.9-11.2 MEAN PLATELET VOLUME (test code=MPV) 12.7 fL 7.0-9.0 MANUAL DIFF REQUIRED (test code=MDIFF) YES WBC [id number] 12:37:00* Test Item Value Reference Range Comments ANISOCYTOSIS (test code=ANISO) PLATELET ESTIMATE (test code=PLTEST) THOUSAND ADEQUATE CBC W/AUTO [id number] 12:37:00* Test Item Value Reference Range Comments WHITE BLOOD CELL (test code=WBC) 13.24 x10 3/uL 4.5-11.0 RED BLOOD CELL (test code=RBC) 3.61 x10 6/uL 3.54-5.02 HEMOGLOBIN (test code=HGB) 10.8 g/dL 11.0-15.0 HEMATOCRIT (test code=HCT) 34.1 % 33.0-45.0 MEAN CELL VOLUME (test code=MCV) 94.5 fL 81.0-99.0 MEAN CELL HGB (test code=MCH) 29.9 pg 27.0-33.0 MEAN CELL HGB CONCETRATION (test code=MCHC) 31.7 g/dL 33.0-37.0 RED CELL DISTRIBUTION WIDTH CV (test code=RDW) 17.3 % 11.5-14.5 RED CELL DISTRIBUTION WIDTH SD (test code=RDW-SD) 55.8 fL 37.0-54.0 PLATELET COUNT (test code=PLT) 53 x10 3/uL 150-400 IMMATURE PLATELET FRACTION (test code=IPF) 19.9 % 0.9-11.2 MEAN PLATELET VOLUME (test code=MPV) 12.7 fL 7.0-9.0 MANUAL DIFF REQUIRED (test code=MDIFF) YES WBC [id number] 12:37:00* Test Item Value Reference Range Comments ANISOCYTOSIS (test code=ANISO) PLATELET ESTIMATE (test code=PLTEST) THOUSAND ADEQUATE CBC W/AUTO [id number] 12:11:00* Test Item Value Reference Range Comments WHITE BLOOD CELL (test code=WBC) 13.24 x10 3/uL 4.5-11.0 RED BLOOD CELL (test code=RBC) 3.61 x10 6/uL 3.54-5.02 HEMOGLOBIN (test code=HGB) 10.8 g/dL 11.0-15.0 HEMATOCRIT (test code=HCT) 34.1 % 33.0-45.0 MEAN CELL VOLUME (test code=MCV) 94.5 fL 81.0-99.0 MEAN CELL HGB (test code=MCH) 29.9 pg 27.0-33.0 MEAN CELL HGB CONCETRATION (test code=MCHC) 31.7 g/dL 33.0-37.0 RED CELL DISTRIBUTION WIDTH CV (test code=RDW) 17.3 % 11.5-14.5 RED CELL DISTRIBUTION WIDTH SD (test code=RDW-SD) 55.8 fL 37.0-54.0 PLATELET COUNT (test code=PLT) 53 x10 3/uL 150-400 IMMATURE PLATELET FRACTION (test code=IPF) 19.9 % 0.9-11.2 MEAN PLATELET VOLUME (test code=MPV) 12.7 fL 7.0-9.0 LYMPHOCYTE % (test code=LY%) % 14.0-32.0 MANUAL DIFF REQUIRED (test code=MDIFF) BASIC METABOLIC [id number] 09:04:00* Test Item Value Reference Range Comments SODIUM (test code=NA) 139 mEq/L 134-147 POTASSIUM (test code=K) 4.4 mEq/L 3.4-5.0 CHLORIDE (test code=CL) 111 mEq/L 100-108 CARBON DIOXIDE (test code=CO2) 9 mEq/L 21-33 ANION GAP (test code=GAP) 23 0-20 GLUCOSE (test code=GLU) 110 mg/dL 70-110 BLOOD UREA NITROGEN (test code=BUN) 17 mg/dL 7-18 GLOMERULAR FILTRATION RATE (test code=GFR) 73.2 80-90 Units of measure=ml/min/1.73 m2 CREATININE (test code=CREAT) 0.8 mg/dL 0.6-1.3 CALCIUM (test code=CA) 6.7 mg/dL 8.0-10.5 CBC W/AUTO [id number] 08:43:00* Test Item Value Reference Range Comments WHITE BLOOD CELL (test code=WBC) 9.39 x10 3/uL 4.5-11.0 RED BLOOD CELL (test code=RBC) 2.05 x10 6/uL 3.54-5.02 HEMOGLOBIN (test code=HGB) 6.5 g/dL 11.0-15.0 HEMATOCRIT (test code=HCT) 20.4 % 33.0-45.0 MEAN CELL VOLUME (test code=MCV) 99.5 fL 81.0-99.0 MEAN CELL HGB (test code=MCH) 31.7 pg 27.0-33.0 MEAN CELL HGB CONCETRATION (test code=MCHC) 31.9 g/dL 33.0-37.0 RED CELL DISTRIBUTION WIDTH CV (test code=RDW) 20.3 % 11.5-14.5 RED CELL DISTRIBUTION WIDTH SD (test code=RDW-SD) 71.4 fL 37.0-54.0 PLATELET COUNT (test code=PLT) 59 x10 3/uL 150-400 MEAN PLATELET VOLUME (test code=MPV) 12.4 fL 7.0-9.0 MANUAL DIFF REQUIRED (test code=MDIFF) YES WBC [id number] 08:43:00* Test Item Value Reference Range Comments SEGMENTED NEUTROPHILS (test code=SEG) 66 % 37-69 BAND NEUTROPHIL (test code=BAND) 5.0 % 0.0-10.0 LYMPHOCYTE (test code=LYMPH) 21 % 23-55 MONOCYTE (test code=MON) 4 % 0-10 METAMYELOCYTE (test code=META) 1.0 % 0.0-0.0 MYELOCYTE (test code=MYELO) 1 % 0.0-0.0 PROMYELOCYTE (test code=PROM) 2.0 % 0-0 NUCLEATED RED BLOOD CELL (test code=NRBC) 17 % POLYCHROMASIA (test code=POLC) 1+ POIKILOCYTOSIS (test code=POIK) SLIGHT ANISOCYTOSIS (test code=ANISO) 2+ MICROCYTOSIS (test code=MICR) FEW MACROCYTOSIS (test code=MACR) 1+ OVALOCYTES (test code=OVAL) SLIGHT PLATELET ESTIMATE (test code=PLTEST) 64-80 THOUSAND ADEQUATE PLATELET MORPHOLOGY (test code=PLTMORPH) LARGE PLATELETS FEW GIANT PLTS CBC W/AUTO [id number] 08:23:00* Test Item Value Reference Range Comments WHITE BLOOD CELL (test code=WBC) 9.39 x10 3/uL 4.5-11.0 RED BLOOD CELL (test code=RBC) 2.05 x10 6/uL 3.54-5.02 HEMOGLOBIN (test code=HGB) 6.5 g/dL 11.0-15.0 HEMATOCRIT (test code=HCT) 20.4 % 33.0-45.0 MEAN CELL VOLUME (test code=MCV) 99.5 fL 81.0-99.0 MEAN CELL HGB (test code=MCH) 31.7 pg 27.0-33.0 MEAN CELL HGB CONCETRATION (test code=MCHC) 31.9 g/dL 33.0-37.0 RED CELL DISTRIBUTION WIDTH CV (test code=RDW) 20.3 % 11.5-14.5 RED CELL DISTRIBUTION WIDTH SD (test code=RDW-SD) 71.4 fL 37.0-54.0 PLATELET COUNT (test code=PLT) 59 x10 3/uL 150-400 MEAN PLATELET VOLUME (test code=MPV) 12.4 fL 7.0-9.0 MANUAL DIFF REQUIRED (test code=MDIFF) YES WBC [id number] 08:23:00* Test Item Value Reference Range Comments ANISOCYTOSIS (test code=ANISO) PLATELET ESTIMATE (test code=PLTEST) THOUSAND ADEQUATE CBC W/AUTO [id number] 08:23:00* Test Item Value Reference Range Comments WHITE BLOOD CELL (test code=WBC) 9.39 x10 3/uL 4.5-11.0 RED BLOOD CELL (test code=RBC) 2.05 x10 6/uL 3.54-5.02 HEMOGLOBIN (test code=HGB) 6.5 g/dL 11.0-15.0 HEMATOCRIT (test code=HCT) 20.4 % 33.0-45.0 MEAN CELL VOLUME (test code=MCV) 99.5 fL 81.0-99.0 MEAN CELL HGB (test code=MCH) 31.7 pg 27.0-33.0 MEAN CELL HGB CONCETRATION (test code=MCHC) 31.9 g/dL 33.0-37.0 RED CELL DISTRIBUTION WIDTH CV (test code=RDW) 20.3 % 11.5-14.5 RED CELL DISTRIBUTION WIDTH SD (test code=RDW-SD) 71.4 fL 37.0-54.0 PLATELET COUNT (test code=PLT) 59 x10 3/uL 150-400 MEAN PLATELET VOLUME (test code=MPV) 12.4 fL 7.0-9.0 MANUAL DIFF REQUIRED (test code=MDIFF) YES WBC [id number] 08:23:00* Test Item Value Reference Range Comments ANISOCYTOSIS (test code=ANISO) PLATELET ESTIMATE (test code=PLTEST) THOUSAND ADEQUATE - DUP VEIN [id number] 07:24:00 Name: HEIDI STEINER [facility] : 1960 Age/S: 58 / F [address] [place] [address] Unit #: [id number] Loc: [place] [address] Phys: Dre Alejandre MD Acct: [id number] Dis Date: Status: ADM IN PHONE #: [phone] Exam Date: 12/12/2018 0641 FAX #: [phone] Reason: B/L LE ultrasound- +PE, r/o DVT EXAMS: CPT CODE: [id number] DUP VEIN ULICES [id number] PROCEDURE: BILATERAL LOWER EXTREMITY VENOUS ULTRASOUND INDICATION: 58-year-old female with bilateral lower extremity edema COMPARISON: None. TECHNIQUE: Sonographic evaluation of the bilateral lower extremity veins was performed using high resolution B- mode, pulse and color Doppler imaging. FINDINGS: RIGHT: The common femoral, femoral, popliteal and visualized calf veins are patent. Normal venous waveforms. The saphenofemoral junction is unremarkable. LEFT: Nonocclusive thrombus noted in the left superficial femoral and popliteal veins. The common femoral and visualized calf veins are patent with normal venous waveforms. The saphenofemoral junction is unremarkable. IMPRESSION: 1. Thrombus noted in the left superficial femoral and popliteal veins. 2. No deep venous thrombosis identified in the right lower extremity. A verbal report was called to Amairani Berumen RN on 12/12/2018 7:23 AM. SL: BHUPENDRAH at 0724 Reported and signed by: Radha Perez M.D. CC: Jordy Gambino DO; Dre Alejandre MD; Joycelyn Person MD Technologist: Marlyn Moreno RDMS(A)(OB) Trnscb Date/Time: 12/12/2018 (07) Johnny.RH17 Orig Print D/T: S: 12/12/2018 (0728) Probe: PAGE 1 Signed Report GLUBED 2018-12-12 06:47:00* Test Item Value Reference Range Comments GLUBED (test code=GLUBED) 91 MG/DL 70-110 Performed by certified traffic control operator at [facility] [id number] 04:33:00* Test Item Value Reference Range Comments GLUBED (test code=GLUBED) 64 MG/DL 70-110 Performed by certified traffic control operator at [facility] BASIC METABOLIC [id number] 04:19:00* Test Item Value Reference Range Comments SODIUM (test code=NA) 138 mEq/L 134-147 POTASSIUM (test code=K) 5.7 mEq/L 3.4-5.0 SPECIMEN 1+ HEMOLYZED.Results known to be adversely affected by hemolysis are: Potassium Magnesium LDH Phosphorus CHLORIDE (test code=CL) 111 mEq/L 100-108 CARBON DIOXIDE (test code=CO2) 9 mEq/L 21-33 ANION GAP (test code=GAP) 24 0-20 GLUCOSE (test code=GLU) 43 mg/dL 70-110 BLOOD UREA NITROGEN (test code=BUN) 18 mg/dL 7-18 GLOMERULAR FILTRATION RATE (test code=GFR) 85.4 80-90 Units of measure=ml/min/1.73 m2 CREATININE (test code=CREAT) 0.7 mg/dL 0.6-1.3 CALCIUM (test code=CA) 7.1 mg/dL 8.0-10.5 [id number] 04:19:00* Test Item Value Reference Range Comments PHOSPHOROUS (test code=PHOS) 2.4 mg/dL 2.5-4.9 [id number] 04:19:00* Test Item Value Reference Range Comments MAGNESIUM (test code=MAG) 1.70 mg/dL 1.8-2.4 CALCIUM [id number] 04:19:00* Test Item Value Reference Range Comments CALCIUM IONIZED (test code=CONNIE) 1.06 MMOL/L 1.12-1.32 BASIC METABOLIC [id number] 04:07:00* Test Item Value Reference Range Comments SODIUM (test code=NA) mEq/L 134-147 POTASSIUM (test code=K) mEq/L 3.4-5.0 CHLORIDE (test code=CL) mEq/L 100-108 CARBON DIOXIDE (test code=CO2) mEq/L 21-33 ANION GAP (test code=GAP) 0-20 GLUCOSE (test code=GLU) mg/dL 70-110 BLOOD UREA NITROGEN (test code=BUN) mg/dL 7-18 GLOMERULAR FILTRATION RATE (test code=GFR) 80-90 CREATININE (test code=CREAT) mg/dL 0.6-1.3 CALCIUM (test code=CA) mg/dL 8.0-10.5 [id number] 04:07:00* Test Item Value Reference Range Comments PHOSPHOROUS (test code=PHOS) mg/dL 2.5-4.9 [id number] 04:07:00* Test Item Value Reference Range Comments MAGNESIUM (test code=MAG) mg/dL 1.8-2.4 CALCIUM [id number] 04:07:00* Test Item Value Reference Range Comments CALCIUM IONIZED (test code=CONNIE) 1.06 MMOL/L 1.12-1.32 CBC W/AUTO [id number] 04:04:00* Test Item Value Reference Range Comments WHITE BLOOD CELL (test code=WBC) 9.39 x10 3/uL 4.5-11.0 RED BLOOD CELL (test code=RBC) 2.05 x10 6/uL 3.54-5.02 HEMOGLOBIN (test code=HGB) 6.5 g/dL 11.0-15.0 HEMATOCRIT (test code=HCT) 20.4 % 33.0-45.0 MEAN CELL VOLUME (test code=MCV) 99.5 fL 81.0-99.0 MEAN CELL HGB (test code=MCH) 31.7 pg 27.0-33.0 MEAN CELL HGB CONCETRATION (test code=MCHC) 31.9 g/dL 33.0-37.0 RED CELL DISTRIBUTION WIDTH CV (test code=RDW) 20.3 % 11.5-14.5 RED CELL DISTRIBUTION WIDTH SD (test code=RDW-SD) 71.4 fL 37.0-54.0 PLATELET COUNT (test code=PLT) 59 x10 3/uL 150-400 MEAN PLATELET VOLUME (test code=MPV) 12.4 fL 7.0-9.0 LYMPHOCYTE % (test code=LY%) % 14.0-32.0 MANUAL DIFF REQUIRED (test code=MDIFF) CBC W/AUTO [id number] 23:54:00* Test Item Value Reference Range Comments WHITE BLOOD CELL (test code=WBC) 5.84 x10 3/uL 4.5-11.0 RED BLOOD CELL (test code=RBC) 2.92 x10 6/uL 3.54-5.02 HEMOGLOBIN (test code=HGB) 9.1 g/dL 11.0-15.0 HEMATOCRIT (test code=HCT) 27.9 % 33.0-45.0 MEAN CELL VOLUME (test code=MCV) 95.5 fL 81.0-99.0 MEAN CELL HGB (test code=MCH) 31.2 pg 27.0-33.0 MEAN CELL HGB CONCETRATION (test code=MCHC) 32.6 g/dL 33.0-37.0 RED CELL DISTRIBUTION WIDTH CV (test code=RDW) 18.4 % 11.5-14.5 RED CELL DISTRIBUTION WIDTH SD (test code=RDW-SD) 62.4 fL 37.0-54.0 PLATELET COUNT (test code=PLT) 73 x10 3/uL 150-400 IMMATURE PLATELET FRACTION (test code=IPF) 8.3 % 0.9-11.2 MEAN PLATELET VOLUME (test code=MPV) 12.1 fL 7.0-9.0 MANUAL DIFF REQUIRED (test code=MDIFF) YES WBC [id number] 23:54:00* Test Item Value Reference Range Comments SEGMENTED NEUTROPHILS (test code=SEG) 72.5 % 37-69 BAND NEUTROPHIL (test code=BAND) 1.8 % 0.0-10.0 LYMPHOCYTE (test code=LYMPH) 11.0 % 23-55 MONOCYTE (test code=MON) 11.9 % 0-10 BASOPHIL (test code=BASO) 1.9 % 0.0-2.0 PROMYELOCYTE (test code=PROM) 0.9 % 0-0 NUCLEATED RED BLOOD CELL (test code=NRBC) 5.5 % POLYCHROMASIA (test code=POLC) 1+ POIKILOCYTOSIS (test code=POIK) 3+ ANISOCYTOSIS (test code=ANISO) 1+ MACROCYTOSIS (test code=MACR) 1+ PLATELET ESTIMATE (test code=PLTEST) Decreased THOUSAND ADEQUATE PLATELET MORPHOLOGY (test code=PLTMORPH) LARGE PLATELETS CBC W/AUTO [id number] 23:38:00* Test Item Value Reference Range Comments WHITE BLOOD CELL (test code=WBC) 5.84 x10 3/uL 4.5-11.0 RED BLOOD CELL (test code=RBC) 2.92 x10 6/uL 3.54-5.02 HEMOGLOBIN (test code=HGB) 9.1 g/dL 11.0-15.0 HEMATOCRIT (test code=HCT) 27.9 % 33.0-45.0 MEAN CELL VOLUME (test code=MCV) 95.5 fL 81.0-99.0 MEAN CELL HGB (test code=MCH) 31.2 pg 27.0-33.0 MEAN CELL HGB CONCETRATION (test code=MCHC) 32.6 g/dL 33.0-37.0 RED CELL DISTRIBUTION WIDTH CV (test code=RDW) 18.4 % 11.5-14.5 RED CELL DISTRIBUTION WIDTH SD (test code=RDW-SD) 62.4 fL 37.0-54.0 PLATELET COUNT (test code=PLT) 73 x10 3/uL 150-400 IMMATURE PLATELET FRACTION (test code=IPF) 8.3 % 0.9-11.2 MEAN PLATELET VOLUME (test code=MPV) 12.1 fL 7.0-9.0 MANUAL DIFF REQUIRED (test code=MDIFF) YES WBC [id number] 23:38:00* Test Item Value Reference Range Comments ANISOCYTOSIS (test code=ANISO) PLATELET ESTIMATE (test code=PLTEST) THOUSAND ADEQUATE CBC W/AUTO [id number] 23:38:00* Test Item Value Reference Range Comments WHITE BLOOD CELL (test code=WBC) 5.84 x10 3/uL 4.5-11.0 RED BLOOD CELL (test code=RBC) 2.92 x10 6/uL 3.54-5.02 HEMOGLOBIN (test code=HGB) 9.1 g/dL 11.0-15.0 HEMATOCRIT (test code=HCT) 27.9 % 33.0-45.0 MEAN CELL VOLUME (test code=MCV) 95.5 fL 81.0-99.0 MEAN CELL HGB (test code=MCH) 31.2 pg 27.0-33.0 MEAN CELL HGB CONCETRATION (test code=MCHC) 32.6 g/dL 33.0-37.0 RED CELL DISTRIBUTION WIDTH CV (test code=RDW) 18.4 % 11.5-14.5 RED CELL DISTRIBUTION WIDTH SD (test code=RDW-SD) 62.4 fL 37.0-54.0 PLATELET COUNT (test code=PLT) 73 x10 3/uL 150-400 IMMATURE PLATELET FRACTION (test code=IPF) 8.3 % 0.9-11.2 MEAN PLATELET VOLUME (test code=MPV) 12.1 fL 7.0-9.0 MANUAL DIFF REQUIRED (test code=MDIFF) YES WBC [id number] 23:38:00* Test Item Value Reference Range Comments ANISOCYTOSIS (test code=ANISO) PLATELET ESTIMATE (test code=PLTEST) THOUSAND ADEQUATE BASIC METABOLIC [id number] 22:26:00* Test Item Value Reference Range Comments SODIUM (test code=NA) 138 mEq/L 134-147 POTASSIUM (test code=K) 4.4 mEq/L 3.4-5.0 CHLORIDE (test code=CL) 107 mEq/L 100-108 CARBON DIOXIDE (test code=CO2) 22 mEq/L 21-33 ANION GAP (test code=GAP) 13 0-20 GLUCOSE (test code=GLU) 96 mg/dL 70-110 BLOOD UREA NITROGEN (test code=BUN) 19 mg/dL 7-18 GLOMERULAR FILTRATION RATE (test code=GFR) 162.8 80-90 Units of measure=ml/min/1.73 m2 CREATININE (test code=CREAT) 0.4 mg/dL 0.6-1.3 CALCIUM (test code=CA) 7.4 mg/dL 8.0-10.5 CBC W/AUTO [id number] 22:17:00* Test Item Value Reference Range Comments WHITE BLOOD CELL (test code=WBC) 5.84 x10 3/uL 4.5-11.0 RED BLOOD CELL (test code=RBC) 2.92 x10 6/uL 3.54-5.02 HEMOGLOBIN (test code=HGB) 9.1 g/dL 11.0-15.0 HEMATOCRIT (test code=HCT) 27.9 % 33.0-45.0 MEAN CELL VOLUME (test code=MCV) 95.5 fL 81.0-99.0 MEAN CELL HGB (test code=MCH) 31.2 pg 27.0-33.0 MEAN CELL HGB CONCETRATION (test code=MCHC) 32.6 g/dL 33.0-37.0 RED CELL DISTRIBUTION WIDTH CV (test code=RDW) 18.4 % 11.5-14.5 RED CELL DISTRIBUTION WIDTH SD (test code=RDW-SD) 62.4 fL 37.0-54.0 PLATELET COUNT (test code=PLT) 73 x10 3/uL 150-400 IMMATURE PLATELET FRACTION (test code=IPF) 8.3 % 0.9-11.2 MEAN PLATELET VOLUME (test code=MPV) 12.1 fL 7.0-9.0 LYMPHOCYTE % (test code=LY%) % 14.0-32.0 MANUAL DIFF REQUIRED (test code=MDIFF) - XR CHEST 1 [id number] 19:37:00 FAX: Jennifer WoodLaveenJordy auguste [phone] [place]: St: ADM FAX: Marc Goodman [phone] FAX: Jennifer Dwayne Person [phone] Name: HEIDI STEINER [facility] : 1960 Age/S: 58/F [address] [place] [address] Unit #: [id number] Loc: [address] [place] [address] Phys: Marc Goodman [facility] Acct: [id number] Dis Date: Status: ADM IN PH ONE #: [phone] Exam Date: 12/11/2018 193 FAX #: [phone] Reason: Post Central Line Placemnent +/- R/O Pneumothor EXAMS: CPT CODE: [id number] XR CHEST 1 V [id number] CHEST RADIOGRA PH ONE VIEW 12/11/2018 AT 1912 HOURS. CLINICAL HISTORY: Post centra l line placement. Pneumothorax?. COMPARISON STUDIES: Chest 2 view s 11/26/2018. FINDINGS: One view of the chest was obtained. N o visible complication is seen after insertion of a right IJ central venou s catheter. The catheter tip projects just above the atriocaval junction. No pneumothorax or pneumomediastinum. Limited inspiration with central crowding of the pulmonary vasculature and minimal bibasilar/right upper lo be subsegmental atelectasis. No left-sided chest port terminates at the atriocaval junction. The cardiac silhouette is not enlarged. Severe thoracic spondylosis. Cholecystectomy clips noted in the right upper kevin drant area IMPRESSION: 1. No visible complication post r ight IJ central venous catheter insertion. SL: [id number] at 1937 Reported and signed by: Rommel Rucker M.D. CC: Jordy Gambino DO; Marc Goodman CRNA; Joycelyn schneider MD Technologist: Doroteo Mittal RT(R) Trnscrd Date/Time/By: 12/11/2018 (1936) : By: [email or web address] Orig Print D/T: S: 12/11/2018 (1939) PAGE 1 Signed Report VITAMIN [id number] 19:23:00* Test Item Value Reference Range Comments VITAMIN B12 (test code=VITB12) 3853 pg/mL 193-986 FOLIC [id number] 19:23:00* Test Item Value Reference Range Comments FOLIC ACID (test code=FOL) 8.0 ng/mL 3.1-17.5 POC ARTERIAL BLOOD [id number] 19:09:00* Test Item Value Reference Range Comments POC ARTERIAL BLOOD GAS PH (test code=POCPHA) 7.411 7.35-7.45 POC ARTERIAL BLOOD GAS PCO2 (test code=FSGKMI9M) 32.6 mmHg 35.0-45 POC TCO2 ARTERIAL (test code=POCTCO2) 21.7 POC ARTERIAL BLOOD GAS PO2 (test code=QOFPV0R) 523.4 mmHg 80-100.0 POC HCO3 ARTERIAL (test code=WZZYWW4X) 20.7 MMOL/L 22.0-26.0 POC BASE EXCESS (test code=POCBEA) -3.4 MMOL/L -4.0-4.0 POC O2 SATURATION (test code=POCO2S) 100.0 % 90-100 [id number] 19:09:00* Test Item Value Reference Range Comments SODIUM (test code=NA/ABG) MEQ/L 134-147 [id number] 19:09:00* Test Item Value Reference Range Comments POTASSIUM (test code=K/ABG) MEQ/L 3.4-5.0 [id number] 19:09:00* Test Item Value Reference Range Comments CHLORIDE (test code=CL/ABG) MEQ/L 100-108 CREATININE [id number] 19:09:00* Test Item Value Reference Range Comments CREATININE ABG (test code=CREAABG) mg/dL 0.6-1.0 [id number] 19:09:00* Test Item Value Reference Range Comments HEMOGLOBIN (test code=HGB/ABG) G/DL 11.0-15.0 [id number] 19:09:00* Test Item Value Reference Range Comments HEMATOCRIT (test code=HCT/ABG) % 33.0-45.0 POC IONIZED [id number] 19:09:00* Test Item Value Reference Range Comments POC IONIZED CALCIUM (test code=POCCA) MMOL/L 1.12-1.32 POC [id number] 19:09:00* Test Item Value Reference Range Comments POC GLUCOSE (test code=POCGLU) MG/DL 70-110 POC ARTERIAL BLOOD [id number] 19:09:00* Test Item Value Reference Range Comments POC ARTERIAL BLOOD GAS PH (test code=POCPHA) 7.411 7.35-7.45 POC ARTERIAL BLOOD GAS PCO2 (test code=QJWDKO9C) 32.6 mmHg 35.0-45 POC TCO2 ARTERIAL (test code=POCTCO2) 21.7 POC ARTERIAL BLOOD GAS PO2 (test code=RVYFN6S) 523.4 mmHg 80-100.0 POC HCO3 ARTERIAL (test code=PIYJXF0G) 20.7 MMOL/L 22.0-26.0 POC BASE EXCESS (test code=POCBEA) -3.4 MMOL/L -4.0-4.0 POC O2 SATURATION (test code=POCO2S) 100.0 % 90-100 [id number] 19:09:00* Test Item Value Reference Range Comments SODIUM (test code=NA/ABG) 136 MEQ/L 134-147 [id number] 19:09:00* Test Item Value Reference Range Comments POTASSIUM (test code=K/ABG) MEQ/L 3.4-5.0 [id number] 19:09:00* Test Item Value Reference Range Comments CHLORIDE (test code=CL/ABG) MEQ/L 100-108 CREATININE [id number] 19:09:00* Test Item Value Reference Range Comments CREATININE ABG (test code=CREAABG) mg/dL 0.6-1.0 [id number] 19:09:00* Test Item Value Reference Range Comments HEMOGLOBIN (test code=HGB/ABG) G/DL 11.0-15.0 [id number] 19:09:00* Test Item Value Reference Range Comments HEMATOCRIT (test code=HCT/ABG) % 33.0-45.0 POC IONIZED [id number] 19:09:00* Test Item Value Reference Range Comments POC IONIZED CALCIUM (test code=POCCA) MMOL/L 1.12-1.32 POC [id number] 19:09:00* Test Item Value Reference Range Comments POC GLUCOSE (test code=POCGLU) MG/DL 70-110 POC ARTERIAL BLOOD [id number] 19:09:00* Test Item Value Reference Range Comments POC ARTERIAL BLOOD GAS PH (test code=POCPHA) 7.411 7.35-7.45 POC ARTERIAL BLOOD GAS PCO2 (test code=SBNEHG5G) 32.6 mmHg 35.0-45 POC TCO2 ARTERIAL (test code=POCTCO2) 21.7 POC ARTERIAL BLOOD GAS PO2 (test code=NWBNV8J) 523.4 mmHg 80-100.0 POC HCO3 ARTERIAL (test code=IXFHML0L) 20.7 MMOL/L 22.0-26.0 POC BASE EXCESS (test code=POCBEA) -3.4 MMOL/L -4.0-4.0 POC O2 SATURATION (test code=POCO2S) 100.0 % 90-100 [id number] 19:09:00* Test Item Value Reference Range Comments SODIUM (test code=NA/ABG) 136 MEQ/L 134-147 [id number] 19:09:00* Test Item Value Reference Range Comments POTASSIUM (test code=K/ABG) 3.8 MEQ/L 3.4-5.0 [id number] 19:09:00* Test Item Value Reference Range Comments CHLORIDE (test code=CL/ABG) MEQ/L 100-108 CREATININE [id number] 19:09:00* Test Item Value Reference Range Comments CREATININE ABG (test code=CREAABG) mg/dL 0.6-1.0 [id number] 19:09:00* Test Item Value Reference Range Comments HEMOGLOBIN (test code=HGB/ABG) G/DL 11.0-15.0 [id number] 19:09:00* Test Item Value Reference Range Comments HEMATOCRIT (test code=HCT/ABG) % 33.0-45.0 POC IONIZED [id number] 19:09:00* Test Item Value Reference Range Comments POC IONIZED CALCIUM (test code=POCCA) MMOL/L 1.12-1.32 POC [id number] 19:09:00* Test Item Value Reference Range Comments POC GLUCOSE (test code=POCGLU) MG/DL 70-110 POC ARTERIAL BLOOD [id number] 19:09:00* Test Item Value Reference Range Comments POC ARTERIAL BLOOD GAS PH (test code=POCPHA) 7.411 7.35-7.45 POC ARTERIAL BLOOD GAS PCO2 (test code=RRYWWQ3Y) 32.6 mmHg 35.0-45 POC TCO2 ARTERIAL (test code=POCTCO2) 21.7 POC ARTERIAL BLOOD GAS PO2 (test code=OHHCQ7D) 523.4 mmHg 80-100.0 POC HCO3 ARTERIAL (test code=JGBKNH9N) 20.7 MMOL/L 22.0-26.0 POC BASE EXCESS (test code=POCBEA) -3.4 MMOL/L -4.0-4.0 POC O2 SATURATION (test code=POCO2S) 100.0 % 90-100 [id number] 19:09:00* Test Item Value Reference Range Comments SODIUM (test code=NA/ABG) 136 MEQ/L 134-147 [id number] 19:09:00* Test Item Value Reference Range Comments POTASSIUM (test code=K/ABG) 3.8 MEQ/L 3.4-5.0 [id number] 19:09:00* Test Item Value Reference Range Comments CHLORIDE (test code=CL/ABG) MEQ/L 100-108 CREATININE [id number] 19:09:00* Test Item Value Reference Range Comments CREATININE ABG (test code=CREAABG) mg/dL 0.6-1.0 [id number] 19:09:00* Test Item Value Reference Range Comments HEMOGLOBIN (test code=HGB/ABG) G/DL 11.0-15.0 [id number] 19:09:00* Test Item Value Reference Range Comments HEMATOCRIT (test code=HCT/ABG) % 33.0-45.0 POC IONIZED [id number] 19:09:00* Test Item Value Reference Range Comments POC IONIZED CALCIUM (test code=POCCA) 1.18 MMOL/L 1.12-1.32 POC [id number] 19:09:00* Test Item Value Reference Range Comments POC GLUCOSE (test code=POCGLU) MG/DL 70-110 POC ARTERIAL BLOOD [id number] 19:09:00* Test Item Value Reference Range Comments POC ARTERIAL BLOOD GAS PH (test code=POCPHA) 7.411 7.35-7.45 POC ARTERIAL BLOOD GAS PCO2 (test code=GRXSXT4H) 32.6 mmHg 35.0-45 POC TCO2 ARTERIAL (test code=POCTCO2) 21.7 POC ARTERIAL BLOOD GAS PO2 (test code=IQPMF5W) 523.4 mmHg 80-100.0 POC HCO3 ARTERIAL (test code=KHLJVI2V) 20.7 MMOL/L 22.0-26.0 POC BASE EXCESS (test code=POCBEA) -3.4 MMOL/L -4.0-4.0 POC O2 SATURATION (test code=POCO2S) 100.0 % 90-100 [id number] 19:09:00* Test Item Value Reference Range Comments SODIUM (test code=NA/ABG) 136 MEQ/L 134-147 [id number] 19:09:00* Test Item Value Reference Range Comments POTASSIUM (test code=K/ABG) 3.8 MEQ/L 3.4-5.0 [id number] 19:09:00* Test Item Value Reference Range Comments CHLORIDE (test code=CL/ABG) MEQ/L 100-108 CREATININE [id number] 19:09:00* Test Item Value Reference Range Comments CREATININE ABG (test code=CREAABG) mg/dL 0.6-1.0 [id number] 19:09:00* Test Item Value Reference Range Comments HEMOGLOBIN (test code=HGB/ABG) G/DL 11.0-15.0 [id number] 19:09:00* Test Item Value Reference Range Comments HEMATOCRIT (test code=HCT/ABG) % 33.0-45.0 POC IONIZED [id number] 19:09:00* Test Item Value Reference Range Comments POC IONIZED CALCIUM (test code=POCCA) 1.18 MMOL/L 1.12-1.32 POC [id number] 19:09:00* Test Item Value Reference Range Comments POC GLUCOSE (test code=POCGLU) 90 MG/DL 70-110 POC ARTERIAL BLOOD [id number] 19:09:00* Test Item Value Reference Range Comments POC ARTERIAL BLOOD GAS PH (test code=POCPHA) 7.411 7.35-7.45 POC ARTERIAL BLOOD GAS PCO2 (test code=VJJTHK6B) 32.6 mmHg 35.0-45 POC TCO2 ARTERIAL (test code=POCTCO2) 21.7 POC ARTERIAL BLOOD GAS PO2 (test code=SFHTX0I) 523.4 mmHg 80-100.0 POC HCO3 ARTERIAL (test code=NVQHWI3X) 20.7 MMOL/L 22.0-26.0 POC BASE EXCESS (test code=POCBEA) -3.4 MMOL/L -4.0-4.0 POC O2 SATURATION (test code=POCO2S) 100.0 % 90-100 [id number] 19:09:00* Test Item Value Reference Range Comments SODIUM (test code=NA/ABG) 136 MEQ/L 134-147 [id number] 19:09:00* Test Item Value Reference Range Comments POTASSIUM (test code=K/ABG) 3.8 MEQ/L 3.4-5.0 [id number] 19:09:00* Test Item Value Reference Range Comments CHLORIDE (test code=CL/ABG) MEQ/L 100-108 CREATININE [id number] 19:09:00* Test Item Value Reference Range Comments CREATININE ABG (test code=CREAABG) mg/dL 0.6-1.0 [id number] 19:09:00* Test Item Value Reference Range Comments HEMOGLOBIN (test code=HGB/ABG) G/DL 11.0-15.0 [id number] 19:09:00* Test Item Value Reference Range Comments HEMATOCRIT (test code=HCT/ABG) 26 % 33.0-45.0 POC IONIZED [id number] 19:09:00* Test Item Value Reference Range Comments POC IONIZED CALCIUM (test code=POCCA) 1.18 MMOL/L 1.12-1.32 POC [id number] 19:09:00* Test Item Value Reference Range Comments POC GLUCOSE (test code=POCGLU) 90 MG/DL 70-110 POC ARTERIAL BLOOD [id number] 19:09:00* Test Item Value Reference Range Comments POC ARTERIAL BLOOD GAS PH (test code=POCPHA) 7.411 7.35-7.45 POC ARTERIAL BLOOD GAS PCO2 (test code=IMJJVJ9T) 32.6 mmHg 35.0-45 POC TCO2 ARTERIAL (test code=POCTCO2) 21.7 POC ARTERIAL BLOOD GAS PO2 (test code=SEJQX5H) 523.4 mmHg 80-100.0 POC HCO3 ARTERIAL (test code=UERVKO1B) 20.7 MMOL/L 22.0-26.0 POC BASE EXCESS (test code=POCBEA) -3.4 MMOL/L -4.0-4.0 POC O2 SATURATION (test code=POCO2S) 100.0 % 90-100 [id number] 19:09:00* Test Item Value Reference Range Comments SODIUM (test code=NA/ABG) 136 MEQ/L 134-147 [id number] 19:09:00* Test Item Value Reference Range Comments POTASSIUM (test code=K/ABG) 3.8 MEQ/L 3.4-5.0 [id number] 19:09:00* Test Item Value Reference Range Comments CHLORIDE (test code=CL/ABG) MEQ/L 100-108 CREATININE [id number] 19:09:00* Test Item Value Reference Range Comments CREATININE ABG (test code=CREAABG) mg/dL 0.6-1.0 [id number] 19:09:00* Test Item Value Reference Range Comments HEMOGLOBIN (test code=HGB/ABG) 8.9 G/DL 11.0-15.0 [id number] 19:09:00* Test Item Value Reference Range Comments HEMATOCRIT (test code=HCT/ABG) 26 % 33.0-45.0 POC IONIZED [id number] 19:09:00* Test Item Value Reference Range Comments POC IONIZED CALCIUM (test code=POCCA) 1.18 MMOL/L 1.12-1.32 POC [id number] 19:09:00* Test Item Value Reference Range Comments POC GLUCOSE (test code=POCGLU) 90 MG/DL 70-110 POC ARTERIAL BLOOD [id number] 19:09:00* Test Item Value Reference Range Comments POC ARTERIAL BLOOD GAS PH (test code=POCPHA) 7.411 7.35-7.45 POC ARTERIAL BLOOD GAS PCO2 (test code=YGJEJW9L) 32.6 mmHg 35.0-45 POC TCO2 ARTERIAL (test code=POCTCO2) 21.7 POC ARTERIAL BLOOD GAS PO2 (test code=MDRDG9L) 523.4 mmHg 80-100.0 POC HCO3 ARTERIAL (test code=KBVDNT8B) 20.7 MMOL/L 22.0-26.0 POC BASE EXCESS (test code=POCBEA) -3.4 MMOL/L -4.0-4.0 POC O2 SATURATION (test code=POCO2S) 100.0 % 90-100 [id number] 19:09:00* Test Item Value Reference Range Comments SODIUM (test code=NA/ABG) 136 MEQ/L 134-147 [id number] 19:09:00* Test Item Value Reference Range Comments POTASSIUM (test code=K/ABG) 3.8 MEQ/L 3.4-5.0 [id number] 19:09:00* Test Item Value Reference Range Comments CHLORIDE (test code=CL/ABG) 103 MEQ/L 100-108 CREATININE [id number] 19:09:00* Test Item Value Reference Range Comments CREATININE ABG (test code=CREAABG) mg/dL 0.6-1.0 [id number] 19:09:00* Test Item Value Reference Range Comments HEMOGLOBIN (test code=HGB/ABG) 8.9 G/DL 11.0-15.0 [id number] 19:09:00* Test Item Value Reference Range Comments HEMATOCRIT (test code=HCT/ABG) 26 % 33.0-45.0 POC IONIZED [id number] 19:09:00* Test Item Value Reference Range Comments POC IONIZED CALCIUM (test code=POCCA) 1.18 MMOL/L 1.12-1.32 POC [id number] 19:09:00* Test Item Value Reference Range Comments POC GLUCOSE (test code=POCGLU) 90 MG/DL 70-110 POC ARTERIAL BLOOD [id number] 19:09:00* Test Item Value Reference Range Comments POC ARTERIAL BLOOD GAS PH (test code=POCPHA) 7.411 7.35-7.45 POC ARTERIAL BLOOD GAS PCO2 (test code=WNHUDE6U) 32.6 mmHg 35.0-45 POC TCO2 ARTERIAL (test code=POCTCO2) 21.7 POC ARTERIAL BLOOD GAS PO2 (test code=CDVLE5U) 523.4 mmHg 80-100.0 POC HCO3 ARTERIAL (test code=BKGBRV3D) 20.7 MMOL/L 22.0-26.0 POC BASE EXCESS (test code=POCBEA) -3.4 MMOL/L -4.0-4.0 POC O2 SATURATION (test code=POCO2S) 100.0 % 90-100 [id number] 19:09:00* Test Item Value Reference Range Comments SODIUM (test code=NA/ABG) 136 MEQ/L 134-147 [id number] 19:09:00* Test Item Value Reference Range Comments POTASSIUM (test code=K/ABG) 3.8 MEQ/L 3.4-5.0 [id number] 19:09:00* Test Item Value Reference Range Comments CHLORIDE (test code=CL/ABG) 103 MEQ/L 100-108 CREATININE [id number] 19:09:00* Test Item Value Reference Range Comments CREATININE ABG (test code=CREAABG) 0.5 mg/dL 0.6-1.0 [id number] 19:09:00* Test Item Value Reference Range Comments HEMOGLOBIN (test code=HGB/ABG) 8.9 G/DL 11.0-15.0 [id number] 19:09:00* Test Item Value Reference Range Comments HEMATOCRIT (test code=HCT/ABG) 26 % 33.0-45.0 POC IONIZED [id number] 19:09:00* Test Item Value Reference Range Comments POC IONIZED CALCIUM (test code=POCCA) 1.18 MMOL/L 1.12-1.32 POC [id number] 19:09:00* Test Item Value Reference Range Comments POC GLUCOSE (test code=POCGLU) 90 MG/DL 70-110 COMPREHENSIVE METABOLIC [id number] 18:25:00* Test Item Value Reference Range Comments SODIUM (test code=NA) 134 mEq/L 134-147 POTASSIUM (test code=K) 4.0 mEq/L 3.4-5.0 CHLORIDE (test code=CL) 104 mEq/L 100-108 CARBON DIOXIDE (test code=CO2) 23 mEq/L 21-33 ANION GAP (test code=GAP) 11 0-20 GLUCOSE (test code=GLU) 85 mg/dL 70-110 BLOOD UREA NITROGEN (test code=BUN) 19 mg/dL 7-18 GLOMERULAR FILTRATION RATE (test code=GFR) 226.9 80-90 Units of measure=ml/min/1.73 m2 CREATININE (test code=CREAT) 0.3 mg/dL 0.6-1.3 TOTAL PROTEIN (test code=PROT) 4.3 g/dL 6.4-8.2 ALBUMIN (test code=ALB) 1.30 g/dL 3.4-5.0 CALCIUM (test code=CA) 8.0 mg/dL 8.0-10.5 BILIRUBIN TOTAL (test code=BILT) 1.60 mg/dL 0.0-1.0 SGOT/AST (test code=AST) 172 IUnit/L 15-37 SGPT/ALT (test code=ALT) 94 IUnit/L 15-65 ALKALINE PHOSPHATASE TOTAL (test code=ALKP) 213 IUnit/L 20-125 CBC W/AUTO [id number] 17:52:00* Test Item Value Reference Range Comments WHITE BLOOD CELL (test code=WBC) 5.20 x10 3/uL 4.5-11.0 RED BLOOD CELL (test code=RBC) 1.81 x10 6/uL 3.54-5.02 HEMOGLOBIN (test code=HGB) 6.2 g/dL 11.0-15.0 HEMATOCRIT (test code=HCT) 19.0 % 33.0-45.0 MEAN CELL VOLUME (test code=MCV) 105.0 fL 81.0-99.0 MEAN CELL HGB (test code=MCH) 34.3 pg 27.0-33.0 MEAN CELL HGB CONCETRATION (test code=MCHC) 32.6 g/dL 33.0-37.0 RED CELL DISTRIBUTION WIDTH CV (test code=RDW) 15.3 % 11.5-14.5 RED CELL DISTRIBUTION WIDTH SD (test code=RDW-SD) 57.5 fL 37.0-54.0 PLATELET COUNT (test code=PLT) 106 x10 3/uL 150-400 MEAN PLATELET VOLUME (test code=MPV) 11.9 fL 7.0-9.0 MANUAL DIFF REQUIRED (test code=MDIFF) YES WBC [id number] 17:52:00* Test Item Value Reference Range Comments ANISOCYTOSIS (test code=ANISO) PLATELET ESTIMATE (test code=PLTEST) THOUSAND ADEQUATE CBC W/AUTO [id number] 17:52:00* Test Item Value Reference Range Comments WHITE BLOOD CELL (test code=WBC) 5.20 x10 3/uL 4.5-11.0 RED BLOOD CELL (test code=RBC) 1.81 x10 6/uL 3.54-5.02 HEMOGLOBIN (test code=HGB) 6.2 g/dL 11.0-15.0 HEMATOCRIT (test code=HCT) 19.0 % 33.0-45.0 MEAN CELL VOLUME (test code=MCV) 105.0 fL 81.0-99.0 MEAN CELL HGB (test code=MCH) 34.3 pg 27.0-33.0 MEAN CELL HGB CONCETRATION (test code=MCHC) 32.6 g/dL 33.0-37.0 RED CELL DISTRIBUTION WIDTH CV (test code=RDW) 15.3 % 11.5-14.5 RED CELL DISTRIBUTION WIDTH SD (test code=RDW-SD) 57.5 fL 37.0-54.0 PLATELET COUNT (test code=PLT) 106 x10 3/uL 150-400 MEAN PLATELET VOLUME (test code=MPV) 11.9 fL 7.0-9.0 MANUAL DIFF REQUIRED (test code=MDIFF) YES WBC [id number] 17:52:00* Test Item Value Reference Range Comments SEGMENTED NEUTROPHILS (test code=SEG) 78.9 % 37-69 LYMPHOCYTE (test code=LYMPH) 14.7 % 23-55 MONOCYTE (test code=MON) 4.6 % 0-10 MYELOCYTE (test code=MYELO) 0.9 % 0.0-0.0 PROMYELOCYTE (test code=PROM) 0.9 % 0-0 NUCLEATED RED BLOOD CELL (test code=NRBC) 5.5 % POLYCHROMASIA (test code=POLC) 1+ ANISOCYTOSIS (test code=ANISO) 1+ MACROCYTOSIS (test code=MACR) 1+ PLATELET ESTIMATE (test code=PLTEST) Decreased THOUSAND ADEQUATE PLATELET MORPHOLOGY (test code=PLTMORPH) LARGE PLATELETS CBC W/AUTO [id number] 17:52:00* Test Item Value Reference Range Comments WHITE BLOOD CELL (test code=WBC) 5.20 x10 3/uL 4.5-11.0 RED BLOOD CELL (test code=RBC) 1.81 x10 6/uL 3.54-5.02 HEMOGLOBIN (test code=HGB) 6.2 g/dL 11.0-15.0 HEMATOCRIT (test code=HCT) 19.0 % 33.0-45.0 MEAN CELL VOLUME (test code=MCV) 105.0 fL 81.0-99.0 MEAN CELL HGB (test code=MCH) 34.3 pg 27.0-33.0 MEAN CELL HGB CONCETRATION (test code=MCHC) 32.6 g/dL 33.0-37.0 RED CELL DISTRIBUTION WIDTH CV (test code=RDW) 15.3 % 11.5-14.5 RED CELL DISTRIBUTION WIDTH SD (test code=RDW-SD) 57.5 fL 37.0-54.0 PLATELET COUNT (test code=PLT) 106 x10 3/uL 150-400 MEAN PLATELET VOLUME (test code=MPV) 11.9 fL 7.0-9.0 MANUAL DIFF REQUIRED (test code=MDIFF) YES WBC [id number] 17:52:00* Test Item Value Reference Range Comments ANISOCYTOSIS (test code=ANISO) PLATELET ESTIMATE (test code=PLTEST) THOUSAND ADEQUATE COMPREHENSIVE METABOLIC [id number] 17:13:00* Test Item Value Reference Range Comments SODIUM (test code=NA) mEq/L 134-147 POTASSIUM (test code=K) mEq/L 3.4-5.0 CHLORIDE (test code=CL) mEq/L 100-108 CARBON DIOXIDE (test code=CO2) mEq/L 21-33 ANION GAP (test code=GAP) 0-20 GLUCOSE (test code=GLU) mg/dL 70-110 BLOOD UREA NITROGEN (test code=BUN) mg/dL 7-18 GLOMERULAR FILTRATION RATE (test code=GFR) 226.9 80-90 Units of measure=ml/min/1.73 m2 CREATININE (test code=CREAT) 0.3 mg/dL 0.6-1.3 TOTAL PROTEIN (test code=PROT) g/dL 6.4-8.2 ALBUMIN (test code=ALB) g/dL 3.4-5.0 CALCIUM (test code=CA) mg/dL 8.0-10.5 BILIRUBIN TOTAL (test code=BILT) 1.60 mg/dL 0.0-1.0 SGOT/AST (test code=AST) 172 IUnit/L 15-37 SGPT/ALT (test code=ALT) 94 IUnit/L 15-65 ALKALINE PHOSPHATASE TOTAL (test code=ALKP) IUnit/L 20-125 PROTHROMBIN [id number] 17:06:00* Test Item Value Reference Range Comments PROTHROMBIN TIME PATIENT (test code=PTP) 16.9 SECONDS 9.3-12.9 INTERNATIONAL NORMAL RATIO (test code=INR) 1.5 0.8-1.2 TARGET INR BY INDICATION Indication INR1. Prophylaxis of venous thrombosis 2.0 - 3.0 (orthopedic surgery), Prophylaxis of venous thrombosis (other than high-risk surgery), Treatment of Deep Vein Thrombosis/Pulmonary Embolism, Prevention of systemic embolism - Tissue heart valves, Acute Myocardial Infarction (to prevent systemic embolism), Valvular heart disease, Atrial Fibrillation, Bileaflet mechanical valve in aortic position.2. Mechanical prosthetic valves (high risk), 2.5 - 3.5 Presence of Lupus Anticoagulant or Antiphospholipid Antibodies, Prevention of systemic embolism - Acute Myocardial Infarction (to prevent recurrent infarct). THROMBOPLASTIN TIME [id number] 17:06:00* Test Item Value Reference Range Comments THROMBOPLASTIN TIME PARTIAL (test code=PTT) 35.3 Seconds 25.0-39.5 Therapeutic Range: 61.8-83.8 Sec Effective 11/13/2013 TOTAL IRON BINDING [id number] 16:49:00* Test Item Value Reference Range Comments SERUM IRON (test code=IRON) 99 mcg/dL 35-150 TOTAL IRON BINDING CAPACITY (test code=TIBC) 90 mcg/dL 260-445 UIBC (test code=UIBC) -9 mcg/dL IRON SATURATION (test code=FESAT) 110.0 % 14-34 [id number] 16:49:00* Test Item Value Reference Range Comments FERRITIN (test code=MINO) 485.1 ng/mL 11.0-306.8 CBC W/AUTO [id number] 16:49:00* Test Item Value Reference Range Comments WHITE BLOOD CELL (test code=WBC) 5.20 x10 3/uL 4.5-11.0 RED BLOOD CELL (test code=RBC) 1.81 x10 6/uL 3.54-5.02 HEMOGLOBIN (test code=HGB) 6.2 g/dL 11.0-15.0 HEMATOCRIT (test code=HCT) 19.0 % 33.0-45.0 MEAN CELL VOLUME (test code=MCV) 105.0 fL 81.0-99.0 MEAN CELL HGB (test code=MCH) 34.3 pg 27.0-33.0 MEAN CELL HGB CONCETRATION (test code=MCHC) 32.6 g/dL 33.0-37.0 RED CELL DISTRIBUTION WIDTH CV (test code=RDW) 15.3 % 11.5-14.5 RED CELL DISTRIBUTION WIDTH SD (test code=RDW-SD) 57.5 fL 37.0-54.0 PLATELET COUNT (test code=PLT) 106 x10 3/uL 150-400 MEAN PLATELET VOLUME (test code=MPV) 11.9 fL 7.0-9.0 LYMPHOCYTE % (test code=LY%) % 14.0-32.0 MANUAL DIFF REQUIRED (test code=MDIFF) BASIC METABOLIC [id number] 14:04:00* Test Item Value Reference Range Comments SODIUM (test code=NA) 132 mEq/L 134-147 POTASSIUM (test code=K) 4.3 mEq/L 3.4-5.0 CHLORIDE (test code=CL) 104 mEq/L 100-108 CARBON DIOXIDE (test code=CO2) 21 mEq/L 21-33 ANION GAP (test code=GAP) 11 0-20 GLUCOSE (test code=GLU) 73 mg/dL 70-110 BLOOD UREA NITROGEN (test code=BUN) 17 mg/dL 7-18 GLOMERULAR FILTRATION RATE (test code=GFR) 162.8 80-90 Units of measure=ml/min/1.73 m2 CREATININE (test code=CREAT) 0.4 mg/dL 0.6-1.3 CALCIUM (test code=CA) 8.2 mg/dL 8.0-10.5 [facility] 12/08/18 [id number] 14:04:00* Test Item Value Reference Range Comments ALBUMIN (test code=ALB) 1.10 g/dL 3.4-5.0 NURSE [facility] 12/08/18 [id number] 14:04:00* Test Item Value Reference Range Comments MAGNESIUM (test code=MAG) 2.10 mg/dL 1.8-2.4 [facility] 12/08/18 [id number] 14:04:00* Test Item Value Reference Range Comments PREALBUMIN (test code=PREALB) 5.5 mg/dL 16.0-40.0 NURSE [facility] 12/08/18 1038- CT ABD PELVIS [id number] 14:13:00 Name: HEIDI STEINER [facility] : 1960 Age/S: 58 / F [address] [place] [address] Unit #: [id number] Loc: [place] [address] Phys: Jignesh Oconnell MD Acct: [id number] Karoline s Date: Status: ADM IN PHONE #: Exam Date: 12/09/2018 1118 FAX #: [phone] Reason: purulent drainage from ANIKA drain EXAMS: CPT CODE: [id number] CT ABD PELVIS W/CONT 19375 PROCEDURE: CT ABDOMEN AND PELVIS WITH CONTRAST INDICATION: Rectal and vulvar cancer. Posto perative care. purulent drainage from ANIKA drain COMPARISON: None. TECHNIQUE: Helical imaging was performed diaphragm through the symphysis with multiplanar reconstructions. IV CONTRAST: 100 mL Isovue-300. GI CONTRAST: 10 mL Gastrografin diluted in water. CT samantha ging performed at this location utilizes radiation dose optimization techn iques which include one or more of the following: -Automated exposure cont rol -Adjustment of the mA and/or kV according to patient size -Use o f iterative reconstruction technique CT Radiation Dose DLP 463.10 mGy-cm FINDINGS: LOWER CHEST: Small bilateral pleural effusions. P artial compressive atelectasis of the lower lobes. Scattered indistinct g roundglass opacities bilateral lungs. Trace pericardial effusion. Within limitations secondary to technique, low-attenuation filling defects identified in bilateral basilar segmental branches of the lower lobes. LIVER: Diffusely diminished in attenuation without focal lesion. The portal venous system is patent. No biliary dilatation. GALLBLAD SUSIE: Surgically absent SPLEEN: Subcentimeter hyperattenuating focu s in the peripheral spleen is nonspecific. The spleen is otherwise normal . PANCREAS: Normal. ADRENALS: Normal. KIDNEYS: Normal. BOWEL: Postoperative changes of gastric bypass benoit rgery. Mixture of GI contrast and low-attenuation material in the gastroj ejunostomy. No gross pathologic wall thickening or regional inflammation. The excluded unopacified stomach and duodenum are unremarkable. GI contrast progresses into normal caliber small bowel. Scattered gas and fecal material within nondilated colon to the level of left lower PAGE 1 Signed Report (CONTINUED) Name: HEIDI STEINER [facility] : 1960 e/S: 58 / F [address] [place] [address] Unit #: [id number] Loc: [place] [address] Phys: Mathew Oconnell MD Acct: [id number] Dis Date: Status: ADM IN PHONE #: [phone] Exam Date: 12/09/2018 1118 FAX #: [phone] Reason: purulent drainage from ANIKA drain EXAMS: CPT CODE: [id number] CT ABD PELVIS W/CONT 09520 <Continued> quadrant end colostomy. APPENDIX: Normal. PERITONEUM: There is a small volume of free intraperitoneal fluid. No focal fluid collection. Small volume of free intraperitoneal air in the nondependent abdomen. Right pelvic drain in place. RETROPERITONEUM: No adenopathy. Atherosclerosis abdominal aorta and branch vessels. Negative for aneurysm. PELVIS: Araiza catheter within contracted urinary bladder with associated intraluminal gas. Uterus and adnexa are unremarkable. Postoperative changes in the perineum with mottled gas and small volume of fluid. No pelvic or inguinal adenopathy. MUSCULOSKELETAL: Generalized subcutaneous edema throughout the visualized lower chest, abdomen and pelvis without discrete fluid collection. Midline abdominal incision is approximated. There is small volume of fluid and gas in the wound without focal fluid collection. No acute skeletal abnormality. IMPRESSION: 1. Bilateral pulmonary embolism in the visualized segmental branches lower lobes. If indicated, CT of the chest may be helpful to better quantify. 2. Small bilateral pleural effusion s with partial atelectasis. Component of airspace disease right lower l obe suspected. Additional groundglass attenuation opacities bilateral l ungs. 3. Postoperative changes of recent rectal resection. Small volum e of fluid in the pelvis with surgical drain in place. No discrete loculated fluid collection not addressed by the tube to indicate abs cess. Continued imaging surveillance is suggested. 4. Postoperative ch anges in the perineum without discrete drainable fluid collection. 5. Severe hepatic steatosis. 6. Generalized subcutaneous edema. A verbal report was called to Fiordaliza Tong RN on 12/09/2018 at 1410 hours. She confirmed understanding of diagnosis of pulmonary embolism and will contact the ordering physician. FOR INTERNAL CODING PURPOSES ONLY RESULT C ODE: CVR PAGE 2 Signed Report (CON TINUED) Name: HEIDI STEINER [facility] : 1960 Age/S: 58 / F [address] [place] [address] Unit #: [id number] Loc: [place] [address] Phys: Sh bambi,Mathew Lerner MD Acct: [id number] Dis Date: Status: ADM IN ONE #: [phone] Exam Date: 12/09/2018 1116 FAX #: Reason: purulent drainage from ANIKA drain EXA MS: CPT CODE: [id number] CT AB D PELVIS W/CONT 31306 <Continued> SL: K58-H at 1413 Reported and signed by: Deng More M.D. CC: Jordy Gambino DO; Mathew Oconnell MD; Joycelyn Person MD Technologist:Carolina Krueger RT(R)(CT) CTDI: DLP: Trnscb Date/Time: 12/09/2018 (141) [email or web address] Orig Print D/T: S: 12/09/2018 (709) CTDI: DLP: PAGE 3 Signed Report - DUP VEIN [id number] 12:46:00 Name: HEIDI STEINER [facility] [place] : 1960 Age/S: 58 / F [address] [place] [address] Unit #: [id number] Loc: [place] [address] Phys: Jean Carlos Khan MD Acct: [id number] Di s Date: Status: ADM IN PHONE #: Exam Date: 12/07/2018 1112 FAX #: [phone] Reason: BILAT UPPER EXT SWELLING EXAMS: CPT CODE: [id number] DUP VEIN ULICES [id number] PROCEDURE: BILATERAL UPPER EXTREMITY VENOUS ULTRASOUND INDICATION: 58-year-old female with bilateral upper extremity swelling. COMPARISON: None. TECHNIQUE: Sonographic evaluation of the bilateral upper extremity veins was performed using high resolution B-mode imaging, pulse and color Doppler imaging. FINDINGS: RIGHT: The internal jugu lar, subclavian, axillary, brachial, radial and ulnar veins are patent. Th e basilic and cephalic veins are patent. Normal venous waveforms. LEFT: The internal jugular, subclavian, axillary, brachial, radial and ulnar veins are patent. The basilic and cephalic veins are patent. Normal venous waveforms. IMPRESSION: 1. No deep venous thrombosis identified in the bilateral upper extremities. SL: [id number] at 1246 Reported and signed by: Radha Perez M.D. CC: Shakila Khan MD; Jordy Gambino DO; Joycelyn Person MD Technologist: Lachelle Rodriguez RDMS(BR)(AB) Trns cb Date/Time: 12/07/2018 (9109) [id number] Orig Print D/T: S: 12/07/2018 (2792) Probe: PAGE 1 Signed Report SURGICAL [id number] 07:45:00 RUN DATE: 12/06/18 [place] [facility] *LIVE* PAGE 1 RUN TIME: 744 Specimen Inqui ry RUN USER: INTERFACE PATIENT: HEIDI STEINER ACCT #: [id number] LOC: [facility] U #: [id number] AGE/SX: 58/F [place] [facility] [place] DR: Long Person : 56 BED: 1 DIS: STATUS: ADM IN TLOC: SPEC #: [id number] RECD: 11/30/18 STATUS: SIVAN REQ #: [id number] THOMPSON: 11/30/[address]: Long Person MD ENTERED: 12/05/18-1731 SP TYPE: SURG SPEC OTHR DR: Shakila Mayorga i, MD, John D DO Koons JR,Jami Yang MD, MDORDERED: GM LEVEL 4 CODES: [id number] - COLON, NOS [id number] - V ULVA, NOS [place]IES [place]: [place] [address] [place] [address] Jordy Gambino DO [address] [facility] [address] [place] [address] Terrence Bourgeois JR, MD [address] [facility] [address] [place] [address] Jami Blas MD [address] [place] [id number] Joycelyn Person MD [address] [place] [address] [email or web address] PROCEDURES: GM LEVEL 4 (Incomplete) TISSUES: 1. VULVA, NOS - V ulva, deep margin, excision 2. COLON, NOS - Colostomy 3. VULVA, NOS - Vulva, post vagi wall, anal rectal, sig * * CONTINUED ON NEXT PAGE RUN DATE: 12/06/18 [facility] *LIVE* PAGE 2 RUN TIME: 744 Specimen Inquiry RUN USER: INTERFACE SPEC #: [id number] PATIENT: HEIDI STEINER #[id number] (Continued)-------- ---- FINAL DIAGNOSIS Vulva, deep margin, excision: No malignancy se en. Colstomy: Changes consistent with colostomy. 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 ADALID SS AND MICROSCOPIC GROSS EXAMINATION: Received the specimen as designated abo ve and it consists of one segment of yellow soft tissue measuring 1.3 cm in largest dimension. Entirely submitted (A). Specimen #2 is one segment of tubular structure tissue measuring 1 0.3 x 3.5 x 3.7 cm and it appears as a colostomy. Opening of the specimen reve als no mass lesions. Sections are submitted as (B)-(C). Specimen #3, designated as sigmoid colon, rectum, anus en bloc with posterior vaginal wall and vulva is one segment of sigmoid colon with attached rectum and the designated tissue that measures 18.5 cm in length total length, 2.5 cm in diameter for the sigmoid colon, 3.1 cm in diameter fo r the rectum, and 6.5 x 4.5 cm for the distal skin or squamous mucosa cove red surface. The distal tissue including the surrounding fat measures 8.9 x 8 cm in largest dimensions. The anus is positioned as 6:00 and the vaginal wall tissue as 12:00. The skin/squamous mucosa shows ulceration and necros is in the 10:00-12:00 and 12:00-3:00 area. The ulcerated area measures 3.4 cm in largest dimension. The closest margin to the ulcerated area measures 0.5 cm which is at the 3:00 area. Other margins are more than 1 cm from t he ulcerated area grossly. The radial resection margins are inked black. Secti ons of the distal peripheral margins (skin and adjacent soft tissue margin) are submitted as (D)-(E)-12:00-3:00; (F)-(G)-3:00-6:00; (H)-(I)-6:00-9:00; (J) -(K)-9:00-12:00. Opening of the sigmoid colon and rectum reveals no mass l esion in the lumen. Additional sections are submitted as (L)-sigmoid c olon margin;(M)-(Y)-distal segment of tumor, anus/rectum, posterior vagin al wall and vulva starting from 12:00 in a clock lennon fashion. The parare ctal and the paracolic fat is submitted for lymph node clearing. MICROSCOPIC EXAMINATION: Specimen #1 shows benign fibroadipose tissue. The second specimen shows benign skin and colonic tissue with chronic inflammation and fibrosis. Specimen #3 shows infiltrating, moderately to poorly differentiated CONTINUED ON N EXT PAGE RUN DATE: 12/06/18 [facility] *LIVE* PAGE 3 RUN TIME: 45 Sp nick Inquiry RUN USER: INTERFACE SPEC #: [id number] PATIENT: HEIDI UMANZOR #[id number] (Continued) GROSS AND MICROSCOPIC (Continued) squamous cell carcinoma with lymphovascula r invasion, ulceration, necrosis, extensive fibrosis and areas of necrosis (co nsistent with the clinical history of therapy effects). The depth of inva carrillo is 1.2 cm and the closest soft tissue radial margin is 0.8 cm. Per iureteral lesion is identified. The peripheral skin and radial soft ti ssue margins are free of tumor. The anus and the rectal mucosa are free of tu mor. The sigmoid colon resection margin appears viable and without tumor. POST-OP DIAGNOSIS Squamous cell cancer, vulvar/a nal cancer PRE-OP DIAGNOSIS Squamous cell cancer, vulvar/anal cancer REVIEWED BY: Signed SIGNATURE ON FILE Christie Sylvester MD 12/06/18 0745 END OF REPORT SURGICAL SPECIMENS 2018-12-06 07:45:00 RUN DATE: 12/07/18 [facility] *LIVE* PAGE 1 RUN TIME: 814 Specimen Inqui ry RUN USER: INTERFACE PATIENT: HEIDI STEINER ACCT #: [id number] LOC: 5WS U #: [id number] AGE/SX: 58/F [place] [facility] [place] DR: Long Person : 56 BED: 1 DIS: STATUS: ADM IN TLOC: SPEC #: [id number] RECD: 11/30/18 STATUS: SIVAN REQ #: [id number] THOMPSON: 11/30/[address]: Long Person MD ENTERED: 12/05/18 SP TYPE: SURG SPEC OTHR DR: Shakila Mayorga i, MD,Jordy Poe JR,Terrence Blas,Jami Pollard MDORDERED: GM LEVEL 4 CODES: [id number] - COLON, NOS [id number] - V ULVA, NOS [place]IES [place]: [place] [address] [place] [address] Jordy Gambino DO [address] [facility] [address] [place] [address] Terrence Bourgeois JR, MD [address] [facility] [address] [place], [place] [id number] Jami Blas MD [address] [place] [address] Joycelyn Person MD [address] [place] [address] [email or web address] PROCEDURES: GM LEVEL 4 (Incomplete) TISSUES: 1. VULVA, NOS - V ulva, deep margin, excision 2. COLON, NOS - Colostomy 3. VULVA, NOS - Vulva, post vagi wall, anal rectal, sig * * CONTINUED ON NEXT PAGE RUN DATE: 12/07/18 [facility] *LIVE* PAGE 2 RUN TIME: 0815 Specimen Inquiry RUN USER: INTERFACE SPEC #: [id number] PATIENT: HEIDI STEINER #[id number] (Continued)-------- ---- ADDENDUM FINDINGS Addendum #1 Entered: 12/06/18-165 *Procedure: Excision. * Tumor Site: Vulva/anal region. *Villa or Size: 3.4 cm. *Histol ogic Type: Squamous cell carcinoma. *Histologi c Grade: II-III *Maximum Tumo r Thickness: 1.2 cm. *Anatomic Level: V (carcinoma invades subcutaneum) *Margins: Peripheral Margins: Free of tumor. Deep Margin: Free of tumor. *Lymph-Vascular Invasion: Ident ified. *Perineural Invasion: Identified. *Lymph Nodes: 0/14. Pathologic Staging (pTNM): [id number] Addendum Signed SIGNATURE ON FILE Christie Sylvester MD 12/07/18 0814 FINAL DIAGNOSIS Vul va, deep margin, excision: No malignancy seen. Colstomy: Changes consiste nt with colostomy. Vulva, superior vaginal wall, anus, rectum, sigmoid col on, excision: Infiltrating moderately to poorly differentiated squamous cell carcinoma, 3.4 cm in largest dimension, depth of invasion 1.2 cm, with lymph ovascular invasion and perineural invasion, necrosis; closest radial margin 0 .8 cm from tumor; peripheral and radial soft tissue margins free of tumor; an al mucosa, rectum, and sigmoid colon, free of tumor; lymph node status, pe nding clearance (report to follow). GROSS AND MICROSCOPIC GROSS EXAMINAT ION: Received the specimen as designated above and it consists of one segment of yellow soft tissue measuring 1.3 cm in largest dimension. Entirel y submitted (A). Specimen #2 is one seg ment of tubular structure tissue measuring 10.3 x 3.5 x 3.7 cm and it appears as a colostomy. Opening of the specimen reveals no mass lesions. Sections are submitted as (B)-(C). CONTINUED ON NEXT PAGE RUN DATE: 12/07/18 [facility] *LIVE* PAGE 3 RUN TIME: 814 Specimen Inquiry RUN USER: INTERFACE SPEC #: [id number] PATIENT: HEIDI STEINER #[id number] (Continued)------ ------ GROSS AND MICROSCOPIC (Continued) Specimen #3, designated as sigmoid colon, rectum, anus en bloc with posterior vaginal wall and v ulva is one segment of sigmoid colon with attached rectum and the design ated tissue that measures 18.5 cm in length total length, 2.5 cm in diameter for the sigmoid colon, 3.1 cm in diameter for the rectum, and 6.5 x 4.5 cm f or the distal skin or squamous mucosa covered surface. The distal tissue i ncluding the surrounding fat measures 8.9 x 8 cm in largest dimensions. The anus is positioned as 6:00 and the vaginal wall tissue as 12:00. The skin/ squamous mucosa shows ulceration and necrosis in the 10:00-12:00 and 12:00- 3:00 area. The ulcerated area measures 3.4 cm in largest dimension. The cl osest margin to the ulcerated area measures 0.5 cm which is at the 3:00 area . Other margins are more than 1 cm from the ulcerated area grossly. The r adial resection margins are inked black. Sections of the distal peripheral mar gins (skin and adjacent soft tissue margin) are submitted as (D)-(E)-12:00-3 :00; (F)-(G)-3:00-6:00; (H)-(I)-6:00-9:00; (J)-(K)-9:00-12:00. Opening of the sigmoid colon and rectum reveals no mass lesion in the lumen. Additional s ections are submitted as (L)-sigmoid colon margin;(M)-(Y)-distal segme nt of tumor, anus/rectum, posterior vaginal wall and vulva starting from 12:00 in a clock lennon fashion. The pararectal and the paracolic fat is benoit bmitted for lymph node clearing. MICROSCOPIC EXAMINATION: Specimen #1 shows benign fibroadipose tissue. The second specimen shows benign skin and colonic tissue with chronic inflammation and fibrosis. Specimen #3 shows infiltrating, moderately to poorly differentiated squamous cell carcinoma with lymphovascular invasion, ulceration, necrosis, extensive fibrosis and areas of necrosis (consistent with the clinical hi story of therapy effects). The depth of invasion is 1.2 cm and the clos est soft tissue radial margin is 0.8 cm. Periureteral lesion is identi fied. The peripheral skin and radial soft tissue margins are free of tumor. T he anus and the rectal mucosa are free of tumor. The sigmoid colon resection margin appears viable and without tumor. POST-OP DIAGNOSIS Squamous cell cancer, vulvar/anal cancer PRE-OP DIAGNOSIS Squamous cell cancer, vulvar/anal cancer REVIEWED BY: *Екатерина CONTINUED ON NEXT PAGE RUN DATE: [facility] *LIVE* PAGE 4 R UN TIME: 08 Specimen Inquiry RUN USER: INTERFACE ----- -------SPEC #: [id number] PATIENT: HEIDI STEINER #[id number] (Continued) Signed SIGNATURE ON FILE Christie Sylvester MD 12/06/18 0745 END OF REPORT [id number] 07:27:00* Test Item Value Reference Range Comments CORTISOL (test code=CORTR) 15.3 ug/dL () Cortisol AM 6.2 - 19.4 Cortisol PM 2.3 - 11.9Performed At: [facility] [address] [id number] Kyle L MD Ph:[phone] BASIC METABOLIC [id number] 11:53:00* Test Item Value Reference Range Comments SODIUM (test code=NA) 135 mEq/L 134-147 POTASSIUM (test code=K) 3.0 mEq/L 3.4-5.0 CHLORIDE (test code=CL) 101 mEq/L 100-108 CARBON DIOXIDE (test code=CO2) 22 mEq/L 21-33 ANION GAP (test code=GAP) 15 0-20 GLUCOSE (test code=GLU) 55 mg/dL 70-110 BLOOD UREA NITROGEN (test code=BUN) 7 mg/dL 7-18 GLOMERULAR FILTRATION RATE (test code=GFR) 85.4 80-90 Units of measure=ml/min/1.73 m2 CREATININE (test code=CREAT) 0.7 mg/dL 0.6-1.3 CALCIUM (test code=CA) 8.0 mg/dL 8.0-10.5 [id number] 11:53:00* Test Item Value Reference Range Comments MAGNESIUM (test code=MAG) 1.30 mg/dL 1.8-2.4 T4 [id number] 20:15:00* Test Item Value Reference Range Comments T4 FREE (test code=T4F) 0.9 ng/dL 0.77-1.61 THYROID STIMULATING [id number] 20:15:00* Test Item Value Reference Range Comments THYROID STIMULATING HORMONE (test code=TSH) 2.11 0.42-5.47 Results in moni-International Units/mL CBC W/AUTO [id number] 10:53:00* Test Item Value Reference Range Comments WHITE BLOOD CELL (test code=WBC) 5.51 x10 3/uL 4.5-11.0 RED BLOOD CELL (test code=RBC) 2.65 x10 6/uL 3.54-5.02 HEMOGLOBIN (test code=HGB) 9.1 g/dL 11.0-15.0 HEMATOCRIT (test code=HCT) 28.1 % 33.0-45.0 MEAN CELL VOLUME (test code=MCV) 106.0 fL 81.0-99.0 MEAN CELL HGB (test code=MCH) 34.3 pg 27.0-33.0 MEAN CELL HGB CONCETRATION (test code=MCHC) 32.4 g/dL 33.0-37.0 RED CELL DISTRIBUTION WIDTH CV (test code=RDW) 16.1 % 11.5-14.5 RED CELL DISTRIBUTION WIDTH SD (test code=RDW-SD) 59.6 fL 37.0-54.0 PLATELET COUNT (test code=PLT) 151 x10 3/uL 150-400 MEAN PLATELET VOLUME (test code=MPV) 10.2 fL 7.0-9.0 NEUTROPHIL % (test code=NT%) 82.4 % 56.0-77.0 IMMATURE GRANULOCYTE % (test code=IG%) 0.7 % 0.0-2.0 LYMPHOCYTE % (test code=LY%) 10.5 % 14.0-32.0 MONOCYTE % (test code=MO%) 5.8 % 4.8-9.0 EOSINOPHIL % (test code=EO%) 0.4 % 0.3-3.7 BASOPHIL % (test code=BA%) 0.2 % 0.0-2.0 NUCLEATED RBC % (test code=NRBC%) 0.0 % 0-0 NEUTROPHIL # (test code=NT#) 4.54 x10 3/uL 2.0-7.6 IMMATURE GRANULOCYTE # (test code=IG#) 0.04 x10 3/uL 0.00-0.03 LYMPHOCYTE # (test code=LY#) 0.58 x10 3/uL 1.0-3.8 MONOCYTE # (test code=MO#) 0.32 x10 3/uL 0.1-0.8 EOSINOPHIL # (test code=EO#) 0.02 x10 3/uL 0.0-0.2 BASOPHIL # (test code=BA#) 0.01 x10 3/uL 0.0-0.2 NUCLEATED RBC # (test code=NRBC#) 0.00 x10 3/uL 0.0-0.1 MANUAL DIFF REQUIRED (test code=MDIFF) NO SLIDE REVIEWED, CONSISTENT WITH AUTO DIFF. CBC W/AUTO [id number] 07:58:00* Test Item Value Reference Range Comments WHITE BLOOD CELL (test code=WBC) 5.51 x10 3/uL 4.5-11.0 RED BLOOD CELL (test code=RBC) 2.65 x10 6/uL 3.54-5.02 HEMOGLOBIN (test code=HGB) 9.1 g/dL 11.0-15.0 HEMATOCRIT (test code=HCT) 28.1 % 33.0-45.0 MEAN CELL VOLUME (test code=MCV) 106.0 fL 81.0-99.0 MEAN CELL HGB (test code=MCH) 34.3 pg 27.0-33.0 MEAN CELL HGB CONCETRATION (test code=MCHC) 32.4 g/dL 33.0-37.0 RED CELL DISTRIBUTION WIDTH CV (test code=RDW) 16.1 % 11.5-14.5 RED CELL DISTRIBUTION WIDTH SD (test code=RDW-SD) 59.6 fL 37.0-54.0 PLATELET COUNT (test code=PLT) 151 x10 3/uL 150-400 MEAN PLATELET VOLUME (test code=MPV) 10.2 fL 7.0-9.0 LYMPHOCYTE % (test code=LY%) % 14.0-32.0 MANUAL DIFF REQUIRED (test code=MDIFF) BASIC METABOLIC [id number] 10:41:00* Test Item Value Reference Range Comments SODIUM (test code=NA) 136 mEq/L 134-147 POTASSIUM (test code=K) 4.7 mEq/L 3.4-5.0 CHLORIDE (test code=CL) 99 mEq/L 100-108 CARBON DIOXIDE (test code=CO2) 32 mEq/L 21-33 ANION GAP (test code=GAP) 10 0-20 GLUCOSE (test code=GLU) 95 mg/dL 70-110 BLOOD UREA NITROGEN (test code=BUN) 12 mg/dL 7-18 GLOMERULAR FILTRATION RATE (test code=GFR) 73.2 80-90 Units of measure=ml/min/1.73 m2 CREATININE (test code=CREAT) 0.8 mg/dL 0.6-1.3 CALCIUM (test code=CA) 8.8 mg/dL 8.0-10.5 [id number] 10:41:00* Test Item Value Reference Range Comments PHOSPHOROUS (test code=PHOS) 3.5 mg/dL 2.5-4.9 [id number] 10:41:00* Test Item Value Reference Range Comments MAGNESIUM (test code=MAG) 1.40 mg/dL 1.8-2.4 CALCIUM [id number] 10:41:00* Test Item Value Reference Range Comments CALCIUM IONIZED (test code=CONNIE) 1.26 MMOL/L 1.12-1.32 BASIC METABOLIC [id number] 10:30:00* Test Item Value Reference Range Comments SODIUM (test code=NA) mEq/L 134-147 POTASSIUM (test code=K) mEq/L 3.4-5.0 CHLORIDE (test code=CL) mEq/L 100-108 CARBON DIOXIDE (test code=CO2) mEq/L 21-33 ANION GAP (test code=GAP) 0-20 GLUCOSE (test code=GLU) mg/dL 70-110 BLOOD UREA NITROGEN (test code=BUN) mg/dL 7-18 GLOMERULAR FILTRATION RATE (test code=GFR) 80-90 CREATININE (test code=CREAT) mg/dL 0.6-1.3 CALCIUM (test code=CA) mg/dL 8.0-10.5 [id number] 10:30:00* Test Item Value Reference Range Comments PHOSPHOROUS (test code=PHOS) mg/dL 2.5-4.9 [id number] 10:30:00* Test Item Value Reference Range Comments MAGNESIUM (test code=MAG) mg/dL 1.8-2.4 CALCIUM [id number] 10:30:00* Test Item Value Reference Range Comments CALCIUM IONIZED (test code=CONNIE) 1.26 MMOL/L 1.12-1.32 HGB [id number] 10:26:00* Test Item Value Reference Range Comments HEMOGLOBIN (test code=HGB) 9.2 g/dL 11.0-15.0 HEMATOCRIT (test code=HCT) 28.8 % 33.0-45.0 CBC W/AUTO [id number] 16:43:00* Test Item Value Reference Range Comments WHITE BLOOD CELL (test code=WBC) 5.70 x10 3/uL 4.5-11.0 RED BLOOD CELL (test code=RBC) 3.81 x10 6/uL 3.54-5.02 HEMOGLOBIN (test code=HGB) 12.7 g/dL 11.0-15.0 HEMATOCRIT (test code=HCT) 39.3 % 33.0-45.0 MEAN CELL VOLUME (test code=MCV) 103.1 fL 81.0-99.0 MEAN CELL HGB (test code=MCH) 33.3 pg 27.0-33.0 MEAN CELL HGB CONCETRATION (test code=MCHC) 32.3 g/dL 33.0-37.0 RED CELL DISTRIBUTION WIDTH CV (test code=RDW) 17.2 % 11.5-14.5 RED CELL DISTRIBUTION WIDTH SD (test code=RDW-SD) 66.0 fL 37.0-54.0 PLATELET COUNT (test code=PLT) 221 x10 3/uL 150-400 MEAN PLATELET VOLUME (test code=MPV) 10.0 fL 7.0-9.0 NEUTROPHIL % (test code=NT%) 73.2 % 56.0-77.0 IMMATURE GRANULOCYTE % (test code=IG%) 0.5 % 0.0-2.0 LYMPHOCYTE % (test code=LY%) 17.9 % 14.0-32.0 MONOCYTE % (test code=MO%) 7.5 % 4.8-9.0 EOSINOPHIL % (test code=EO%) 0.5 % 0.3-3.7 BASOPHIL % (test code=BA%) 0.4 % 0.0-2.0 NUCLEATED RBC % (test code=NRBC%) 0.0 % 0-0 NEUTROPHIL # (test code=NT#) 4.17 x10 3/uL 2.0-7.6 IMMATURE GRANULOCYTE # (test code=IG#) 0.03 x10 3/uL 0.00-0.03 LYMPHOCYTE # (test code=LY#) 1.02 x10 3/uL 1.0-3.8 MONOCYTE # (test code=MO#) 0.43 x10 3/uL 0.1-0.8 EOSINOPHIL # (test code=EO#) 0.03 x10 3/uL 0.0-0.2 BASOPHIL # (test code=BA#) 0.02 x10 3/uL 0.0-0.2 NUCLEATED RBC # (test code=NRBC#) 0.00 x10 3/uL 0.0-0.1 MANUAL DIFF REQUIRED (test code=MDIFF) NO BASIC METABOLIC [id number] 16:39:00* Test Item Value Reference Range Comments SODIUM (test code=NA) 133 mEq/L 134-147 POTASSIUM (test code=K) 3.5 mEq/L 3.4-5.0 CHLORIDE (test code=CL) 95 mEq/L 100-108 CARBON DIOXIDE (test code=CO2) 30 mEq/L 21-33 ANION GAP (test code=GAP) 12 0-20 GLUCOSE (test code=GLU) 125 mg/dL 70-110 BLOOD UREA NITROGEN (test code=BUN) 14 mg/dL 7-18 GLOMERULAR FILTRATION RATE (test code=GFR) 85.4 80-90 Units of measure=ml/min/1.73 m2 CREATININE (test code=CREAT) 0.7 mg/dL 0.6-1.3 CALCIUM (test code=CA) 10.5 mg/dL 8.0-10.5 PROTHROMBIN [id number] 16:35:00* Test Item Value Reference Range Comments PROTHROMBIN TIME PATIENT (test code=PTP) 12.5 SECONDS 9.3-12.9 INTERNATIONAL NORMAL RATIO (test code=INR) 1.1 0.8-1.2 TARGET INR BY INDICATION Indication INR1. Prophylaxis of venous thrombosis 2.0 - 3.0 (orthopedic surgery), Prophylaxis of venous thrombosis (other than high-risk surgery), Treatment of Deep Vein Thrombosis/Pulmonary Embolism, Prevention of systemic embolism - Tissue heart valves, Acute Myocardial Infarction (to prevent systemic embolism), Valvular heart disease, Atrial Fibrillation, Bileaflet mechanical valve in aortic position.2. Mechanical prosthetic valves (high risk), 2.5 - 3.5 Presence of Lupus Anticoagulant or Antiphospholipid Antibodies, Prevention of systemic embolism - Acute Myocardial Infarction (to prevent recurrent infarct). THROMBOPLASTIN TIME [id number] 16:35:00* Test Item Value Reference Range Comments THROMBOPLASTIN TIME PARTIAL (test code=PTT) 29.0 Seconds 25.0-39.5 Therapeutic Range: 61.8-83.8 Sec Effective 11/13/2013 - XR CHEST 2 [id number] 16:06:00 FAX: Jordy Martinez DO [phone] [place]: St: PRE FAX: Jami Banuelos [phone] FAX: Dwayne Millan [phone] Name: HEIDI STEINER [facility] : 1960 Age/S: 58/F [address] [place] [address] Unit #: [id number] Loc: [place] [address] Phys: Jami Blas MD Acct: [id number] Dis Date: Status: PRE SDC PH ONE #: [phone] Exam Date: 11/26/2018 1600 FAX #: [phone] Reason: PREOP EXAMS: CPT CODE: [id number] XR CHEST 2 V 64432 2 VIEW RADIOGR APHS OF THE CHEST INDICATION: Preoperative evaluation. Admitting diagnosis codes C51.9, C44.520. TECHNIQUE: 2 radiographic vi ews of the chest were obtained. COMPARISONS: Chest x-ray 8 FINDINGS: There is a mild apex leftward thoracic s luis a scoliotic curvature. There is no acute osseous fracture or dislocati on. There is no subdiaphragmatic free gas. The cardi omediastinal size and contour are normal. There is a left-sided Infuse-a- Port catheter with tip in the superior vena cava. There is no pneu mothorax, pleural effusion or organized pneumonia. There is pulmonary hyp erinflation. IMPRESSION: 1. There is no acute cardiopulmonary process. There is stable pulmonary hyperinflation. at 1603 Reported and signed by: Gerald Cote D.O. CC: Jordy Gambino DO; Jami bauer MD; Joycelyn Person MD Technologist: Wendi Larose, RT(R) Trnscrd Date/Time/By: 11/26/2018 (6533) : By: [email or web address] Orig Print D/T: S: 11/26/2018 (6001) PAGE 1 Signed Report
[2020-01-31 17:37] LABS: BASOPHILS # (AUTO) 0.1 (0.0-0.1); BASOPHILS % 0.6 % (0.0-1.0); EOSINOPHILS % 0.1 % (0.0-6.0); HEMATOCRIT 34.2 % (34.2-44.1); HEMOGLOBIN 11.4 g/dL (12.0-16.0); LYMPHOCYTES # (AUTO) 0.6 (1.0-3.2); LYMPHOCYTES % 7.6 % (18.0-39.1); MEAN CORPUSCULAR HEMOGLOBIN 33.1 pg (28-32); MEAN CORPUSCULAR HGB CONC 33.3 g/dL (31-35); MEAN CORPUSCULAR VOLUME 99.4 fL (81-99); MONOCYTES # (AUTO) 0.2 (0.2-0.8); MONOCYTES % 2.8 % (4.4-11.3); NEUTROPHILS # (AUTO) 7.2 (2.1-6.9); NEUTROPHILS % 87.4 % (38.7-80.0); PLATELET COUNT 108 x10e3/uL (140-360); RED BLOOD COUNT 3.44 x10e6/uL (3.6-5.1); RED CELL DISTRIBUTION WIDTH 13.2 % (11.7-14.4)
[2020-01-31 17:51] LABS: CLARITY,URINE TURBID (CLEAR); COLOR,URINE RED (YELLOW)
[2020-01-31 17:52] LABS: BACTERIA,URINE MANY /HPF; RBC,URINE >50 /HPF (0-5)
[2020-01-31 17:54] LABS: INR 1.06; PROTHROMBIN TIME 14.5 seconds (11.9-14.5)
[2020-01-31 17:55] LABS: PARTIAL THROMBOPLASTIN TIME 33.6 seconds (23.8-35.5)
[2020-01-31 18:01] LABS: ALANINE AMINOTRANSFERASE 11 IU/L (0-55); ALBUMIN 2.1 g/dL (3.5-5.0); ALBUMIN/GLOBULIN RATIO 0.5 (0.8-2.0); ALKALINE PHOSPHATASE 86 IU/L (40-150); ANION GAP 10.6 mmol/L (8-16); BLOOD UREA NITROGEN 47 mg/dL (7-26); BUN/CREATININE RATIO 60 (6-25); CALCIUM 9.6 mg/dL (8.4-10.2); CARBON DIOXIDE 28 mmol/L (22-29); CHLORIDE 103 mmol/L (98-107); CREATININE, SERUM 0.78 mg/dL (0.57-1.11); EST GLOMERULAR FILTRATION RATE > 60 ML/MIN (60-); GLUCOSE 101 mg/dL (74-118); SODIUM 139 mmol/L (136-145)
[2020-01-31 18:02] LABS: POTASSIUM 2.6 mmol/L (3.5-5.1)
[2020-01-31] MEDS ORDERED: POTASSIUM CHLORIDE 20 MEQ TAB CR PO STA (18:02)
[2020-01-31] MEDS ORDERED: CEFTRIAXONE SOD 1 GM/NS 50 ML 50 ML IV ONE (18:15)
[2020-01-31] MEDS ORDERED: CEFTRIAXONE SOD 1 GM VIAL IV ONE (18:15)
[2020-01-31 18:29] LABS: BILIRUBIN,URINE LARGE (NEGATIVE)
[2020-01-31 18:30] LABS: LEUKOCYTE ESTERASE ,URINE LARGE (NEGATIVE); NITRITE,URINE POSITIVE (NEGATIVE); PROTEIN,URINE DIPSTICK >=300 (NEGATIVE); URINE UROBILINOGEN 1 mg/dL (0.2 - 1)
[2020-01-31 18:31] LABS: KETONES,URINE NEGATIVE (NEGATIVE)
--- NOTE | 2020-01-31 19:01 | NUR ---
[facility] CALLED FOR TRANSPORT ETA OVER 60MIN [facility] CALLED FOR TRANSPORT ETA 30MIN
[2020-01-31 19:50] VITALS: BP 95/66
== END 2020-01-31 19:53 | disposition home or self-care (01) ==
LOC: ER 16:38
DX: N39.0 Urinary tract infection, site not specified (principal); R31.0 Gross hematuria; E87.6 Hypokalemia; K52.9 Noninfective gastroenteritis and colitis, unspecified; I48.91 Unspecified atrial fibrillation; K21.9 Gastro-esophageal reflux disease without esophagitis; F32.9 Major depressive disorder, single episode, unspecified
CPT/HCPCS: 36415; 80053; 81001; 85025; 85610; 85730; 87086; 87186; 99284; J0696; J7040

== ENCOUNTER 2020-02-07 22:15 | Inpatient (IN) | payer OTHER ==
[~2020-02-07] VITALS: Ht 170.2 cm; Wt 49.4 kg
--- NOTE | 2020-02-07 22:20 | NUR ---
Blood cultures drawn at this time
[2020-02-07] MEDS ORDERED: SODIUM CHLORIDE 0.9% 1000ML 1,000 ML IV ONE ×2 (22:30)
[2020-02-07] MEDS ORDERED: ACETAMINOPHEN 325 MG TAB PO ONE (22:30)
[2020-02-07] MEDS ORDERED: CEFEPIME 2 GM/NS 0.9% 100 ML 100 ML IV ONE (22:30)
[2020-02-07 23:05] LABS: BASOPHILS % 0.2 % (0.0-1.0); EOSINOPHILS % 0.2 % (0.0-6.0); HEMATOCRIT 25.3 % (34.2-44.1); HEMOGLOBIN 8.4 g/dL (12.0-16.0); LYMPHOCYTES # (AUTO) 0.3 (1.0-3.2); LYMPHOCYTES % 2.2 % (18.0-39.1); MEAN CORPUSCULAR HEMOGLOBIN 32.4 pg (28-32); MEAN CORPUSCULAR HGB CONC 33.2 g/dL (31-35); MEAN CORPUSCULAR VOLUME 97.7 fL (81-99); MONOCYTES # (AUTO) 0.2 (0.2-0.8); MONOCYTES % 1.2 % (4.4-11.3); NEUTROPHILS # (AUTO) 13.2 (2.1-6.9); NEUTROPHILS % 95.5 % (38.7-80.0); PLATELET COUNT 151 x10e3/uL (140-360); RED BLOOD COUNT 2.59 x10e6/uL (3.6-5.1); RED CELL DISTRIBUTION WIDTH 13.2 % (11.7-14.4)
[2020-02-07 23:18] LABS: INR 1.58
[2020-02-07 23:19] LABS: PARTIAL THROMBOPLASTIN TIME 40.4 seconds (23.8-35.5)
[2020-02-07 23:20] LABS: ALANINE AMINOTRANSFERASE 6 IU/L (0-55); ALBUMIN 1.9 g/dL (3.5-5.0); ALBUMIN/GLOBULIN RATIO 0.5 (0.8-2.0); ALKALINE PHOSPHATASE 73 IU/L (40-150); ANION GAP 15.4 mmol/L (8-16); BLOOD UREA NITROGEN 23 mg/dL (7-26); BUN/CREATININE RATIO 32 (6-25); CALCIUM 8.5 mg/dL (8.4-10.2); CARBON DIOXIDE 22 mmol/L (22-29); CHLORIDE 100 mmol/L (98-107); CREATINE KINASE 7 IU/L (29-168); CREATININE, SERUM 0.73 mg/dL (0.57-1.11); EST GLOMERULAR FILTRATION RATE > 60 ML/MIN (60-); GLUCOSE 128 mg/dL (74-118); POTASSIUM 3.4 mmol/L (3.5-5.1); SODIUM 134 mmol/L (136-145)
--- NOTE | 2020-02-07 23:20 | NUR ---
Per ER MD, ok to start peripheral levophed at this time.
[2020-02-07 23:30] LABS: INFLUENZAE A&B ANTIGEN (RAPID) NEGATIVE (NEGATIVE); STREPTOCOCCUS GRP A ANTIGEN NEGATIVE (NEGATIVE)
[2020-02-07] MEDS ORDERED: NOREPINEPHRINE 8 MG/D5W 250 ML 250 ML ONE (23:30)
[2020-02-07 23:39] LABS: BILIRUBIN,URINE NEGATIVE (NEGATIVE); CLARITY,URINE TURBID (CLEAR); COLOR,URINE BROWN (YELLOW); KETONES,URINE NEGATIVE (NEGATIVE); LEUKOCYTE ESTERASE ,URINE LARGE (NEGATIVE); NITRITE,URINE NEGATIVE (NEGATIVE); PROTEIN,URINE DIPSTICK 3+ (NEGATIVE); URINE UROBILINOGEN 0.2 mg/dL (0.2 - 1)
[2020-02-07 23:40] LABS: BACTERIA,URINE MANY /HPF; EPITHELIAL CELLS,URINE MODERATE /LPF; RBC,URINE >50 /HPF (0-5); WBC,URINE (MAN) >50 /HPF (0-5)
[2020-02-07] MEDS: NOREPINEPHRINE 8 MG/D5W 250 ML 250 ML IV PRN (23:41)
[2020-02-07] MEDS ORDERED: LIDOCAINE HCL 1% LOCAL INJ 20 ML VIAL ONE (23:58)
--- NOTE | 2020-02-07 23:59 | Diagnostic Imaging Report ---
EXAMINATION: CHEST SINGLE (PORTABLE) INDICATION: Fever. COMPARISON: None FINDINGS: TUBES and LINES: Left-sided chest port with catheter tip terminating in the SVC. LUNGS: Lungs are well inflated. Mild patchy left basilar opacity. Possible patchy opacity in the right midlung, obscured by overlying EKG leads. No evidence of lobar consolidation or pulmonary edema. Mild bronchial wall thickening. PLEURA: No pleural effusion or pneumothorax. HEART AND MEDIASTINUM: The cardiomediastinal silhouette is unremarkable. BONES AND SOFT TISSUES: No acute osseous lesion. Soft tissues are unremarkable. UPPER ABDOMEN: No free air under the diaphragm. IMPRESSION: Mild patchy left basilar opacity, which may represent atelectasis or infection in the appropriate clinical setting. Possible patchy opacity in the right midlung, obscured by overlying EKG lead. Suggest repeat radiograph with removal of EKG lead. Recommend follow-up chest radiograph to assess for resolution. Findings of bronchitis. Signed by: Dr. Leander Beltre MD on 02/07/2020 11:55 PM
[2020-02-08] VITALS (25 sets, daily range): BP systolic 86–145; BP diastolic 45–70
[2020-02-08] MEDS ORDERED: VANCOMYCIN 1GM/NS 250 ML 250 ML IV STA (00:02)
[2020-02-08] MEDS ORDERED: SODIUM CHLORIDE 0.9% 1000ML 1,000 ML IV SCH (00:27)
[2020-02-08] MEDS ORDERED: ACETAMINOPHEN 325 MG TAB PO PRN ×2 (00:30→12:30)
[2020-02-08] MEDS ORDERED: HYDROCODONE/APAP 7.5MG-325MG 1 EA TAB PO PRN (00:45)
[2020-02-08] MEDS ORDERED: ZOLPIDEM TARTRATE 5 MG TAB PO PRN (00:45)
--- NOTE | 2020-02-08 00:48 | NUR ---
Dr. Cardona states not to change Araiza catheter at this time due to unstagebable perianal ulcer.
--- NOTE | 2020-02-08 01:42 | NUR ---
Patient taken to CT before going to ICU
--- NOTE | 2020-02-08 01:45 | Consultation ---
DATE OF CONSULTATION: Pulmonary Critical Care Consultation CHIEF COMPLAINT: Fever, tachycardia, and malaise. 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 She has a chronic indwelling Araiza at home. Her Araiza is changed once a month. She also has a sacral wound. She has reported increased malaise over the past several days. She started having a fever on the day of admission. She also had discolored urine. She denies any cough or dyspnea. She is not complaining of any nausea or vomiting. She has no abdominal pain. PAST SURGICAL HISTORY: 1. Status post cholecystectomy. 2. Status post gastric bypass surgery many years ago. 3. Status post vulvectomy in 2018, following chemotherapy and radiation therapy. 4. History of prior feeding tube. PAST MEDICAL HISTORY: 1. Vulvar cancer that required radiation and chemotherapy followed by surgical resection in 2018. The patient has not required any additional chemoradiation since then. 2. Chronic wound. 3. Indwelling Araiza. 4. History of a pulmonary embolism 8 months ago. The patient is still on Eliquis for this. 5. No prior history of heart disease. SOCIAL HISTORY: The patient was a prior smoker, but does not smoke at this time. She is not a drinker. She stays at home. Her physician is Dr. Morales with [facility]. ALLERGIES: NO KNOWN DRUG ALLERGIES. FAMILY HISTORY: Family history is noncontributory. REVIEW OF SYSTEMS: She did have fever at home. There is no headache. She has no neck pain. She is not having any chest pain. She does not complain of cough or dyspnea. She does not have abdominal pain. She does note pain in her sacral area from her chronic wound. She has an indwelling Araiza. She does have some mild leg edema. PHYSICAL EXAMINATION: VITAL SIGNS: The patient's blood pressure is now 79/46, on 5 mcg of Levophed. Her pulse is 106. Respiratory rate is 16. HEENT: Shows no facial swelling or erythema. CARDIAC: Reveals regular rate and rhythm with normal S1 and S2. LUNGS: Auscultation of lungs reveals rhonchorous breath sounds bilaterally. There is no wheezing. ABDOMEN: Soft, nontender. There is no rebound or guarding. EXTREMITIES: Show no calf tenderness. There is some leg edema, especially in the feet. She has diffuse weakness that is greatest in her legs. LABORATORY DATA: White blood cell count is 13.8, hemoglobin is 8.4. The platelet count is 151. The BUN to creatinine ratio is 23 to 0.73. The potassium is 3.4. Glucose is 128 and the lactic acid is 4.1. PT is 20 and the INR is 1.58. Urinalysis shows greater than 50 white blood cells. RADIOGRAPHIC DATA: Chest x-ray shows a left basilar opacity as well as a possible opacity in the right lung. IMPRESSION: 1. Urinary tract infection with an indwelling Araiza and severe sepsis, present on admission. 2. Aspiration pneumonia. 3. Tachycardia. 4. Prior history of pulmonary embolism. 5. History of vulvar cancer. 6. Anemia, unspecified. 7. Moderate protein-calorie malnutrition. PLAN: 1. The patient will have antibiotics to cover for urinary pathogens as well as aspiration pneumonia. 2. The patient has received 30 mL/kg of fluid intravenously and is now receiving Levophed. 3. Echocardiogram. 4. Pain control. 5. Wound care. 6. Repeat chest x-ray and CBC in a.m. Sherwin Cardona MD [facility] /[id number]
--- NOTE | 2020-02-08 01:55 | Operative Report ---
DATE OF PROCEDURE: SURGEON: Sherwin Cardona MD PROCEDURE: Central line placement under ultrasound guidance. PREOPERATIVE DIAGNOSIS: Urinary tract infection with sepsis. POSTOPERATIVE DIAGNOSIS: Urinary tract infection with sepsis. CONSENT: Consent was obtained from the patient. ANESTHESIA: 1% lidocaine for local anesthesia. DESCRIPTION OF PROCEDURE: The patient was placed in a supine position. The right neck was prepped sterilely with chlorhexidine. An ultrasound machine was used to visualize the right internal jugular vein. The vein was cannulated under direct visualization with a 16-gauge needle on the first attempt. A wire was then placed through the needle. A dilator was used to open the skin. A triple-lumen catheter was then placed over the wire by the Seldinger technique. All the ports flushed. COMPLICATIONS: None. ESTIMATED BLOOD LOSS: 5 mL. Sherwin Cardona MD [facility]/MODL /[id number]
--- NOTE | 2020-02-08 02:57 | Diagnostic Imaging Report ---
EXAMINATION: CHEST SINGLE (PORTABLE) INDICATION: Check central line placement. COMPARISON: Chest radiograph 02/07/2020. FINDINGS: TUBES and LINES: Interval placement of a right IJ central venous catheter which terminates in the SVC. Left-sided chest port with catheter tip terminating in the SVC. LUNGS: Lungs are well inflated. Mild patchy left basilar opacity. Decreased conspicuity of patchy opacity in the right midlung adjacent to the EKG lead. No evidence of lobar consolidation or pulmonary edema. Mild bronchial wall thickening. PLEURA: No pleural effusion or pneumothorax. HEART AND MEDIASTINUM: The cardiomediastinal silhouette is unremarkable. BONES AND SOFT TISSUES: No acute osseous lesion. Soft tissues are unremarkable. UPPER ABDOMEN: No free air under the diaphragm. IMPRESSION: Interval placement of a right IJ central venous catheter which terminates in the SVC. No evidence of pneumothorax. Mild patchy left basilar opacity, which may represent atelectasis or infection in the appropriate clinical setting. Decreased conspicuity of patchy opacity in the right midlung adjacent to the EKG lead. This can be assessed on subsequent chest CT. Findings of bronchitis. Signed by: Dr. Leander Beltre MD on 02/08/2020 2:54 AM
--- NOTE | 2020-02-08 03:48 | Diagnostic Imaging Report ---
EXAM: CT Chest WITH contrast- Pulmonary Embolism Protocol INDICATION: Weakness, fever, chest pain. COMPARISON: Chest radiograph 02/08/2020. TECHNIQUE: Chest was scanned utilizing a multidetector helical scanner from the lung apex through the level of the diaphragm after administration of IV contrast. Thin section reconstructions were obtained with special concentration on the pulmonary arteries. Coronal and sagittal reformations were obtained. Pulmonary embolism protocol was performed. IV CONTRAST: 100 cc of Isovue 370 RADIATION DOSE: Total DLP: 372 mGy*cm Dose modulation, iterative reconstruction, and/or weight based adjustment of the mA/kV was utilized to reduce the radiation dose to as low as reasonably achievable. COMPLICATIONS: None FINDINGS: LINES/ TUBES: Right IJ central venous catheter terminates in the SVC. Left-sided chest port terminates in the SVC. PULMONARY ARTERIES: No filling defect is identified within the pulmonary arteries to the segmental level. The subsegmental pulmonary arteries are not well opacified. Main pulmonary artery measures 2.6 cm in diameter. LUNGS AND AIRWAYS: Minimal dependent atelectasis. Biapical pleural-parenchymal opacity, compatible with remote granulomatous disease. The central airways are patent. There are mild patchy consolidative opacities in the dependent lower lobes bilaterally. Minimal groundglass opacity within the medial left lower lobe on series 3, image 92 and right lower lobe on series 3, image 92. There is a 4 mm left upper lobe solid nodule on series 3, image 60. Mild bronchial wall thickening. PLEURA: The pleural spaces are clear. HEART AND MEDIASTINUM: Small to moderate volume pneumomediastinum, most pronounced in the lower mediastinum. No clear source identified, however there is diffuse mild esophageal wall thickening. Limited evaluation of the thyroid gland which appears grossly unremarkable. No mediastinal, hilar or axillary lymphadenopathy. No cardiomegaly or pericardial effusion. There is mild wall thickening within the left ventricle. Scattered coronary atherosclerosis. UPPER ABDOMEN: Limited contrast-enhanced views of the upper abdomen. Status post gastric bypass. Small hiatal hernia. A linear hyperdensity within the right hepatic lobe and an adjacent small linear linear hyperdensity. Possible 1.1 cm right hepatic lobe hypodense lesion versus artifact from adjacent metallic hyperdensities (series 2, image 139). Mild intrahepatic ductal dilatation. Partially seen moderate right hydronephrosis. BONES: No acute osseous abnormality. No suspicious lytic or blastic lesions. SOFT TISSUES: Unremarkable. IMPRESSION: No evidence of pulmonary embolism to the level of the segmental pulmonary arteries. Small to moderate volume pneumomediastinum, most pronounced in the lower mediastinum. No clear source identified, however there is diffuse mild esophageal wall thickening. Suggest correlation for any history of vomiting. Status post gastric bypass with small hiatal hernia. Mild patchy/consolidative opacities in the lower lungs may represent a combination of mild aspiration and atelectasis. Linear hyperdensities within the inferior aspect of the right hepatic lobe, likely surgical clips. Possible adjacent 1.1 cm right hepatic lobe hypodense lesion versus artifact. Mild intrahepatic biliary ductal dilatation. Recommend CT of the abdomen and pelvis for further evaluation. Moderate right hydronephrosis, partially visualized, for which a renal ultrasound or CT of the abdomen and pelvis is recommended for further evaluation. The above findings were discussed with BRUNILDA Maurer on 02/08/2020 at 3:41 AM. Signed by: Dr. Leander Beltre MD on 02/08/2020 3:45 AM
[2020-02-08] MEDS ORDERED: SODIUM CHLORIDE 0.9% 50ML 50 ML ONE ×2 (04:15→10:13)
[2020-02-08] MEDS ORDERED: IOPAMIDOL 370 MG/ML 200 ML INFUS..BTL INJ ONE ×2 (04:15→10:14)
[2020-02-08] MEDS: CEFEPIME 2 GM/NS 0.9% 100 ML 100 ML IV SCH ×3 (05:34→22:00)
[2020-02-08 05:39] LABS: CREATINE KINASE 19 IU/L (29-168)
--- NOTE | 2020-02-08 06:46 | NUR ---
PT's dtr had indicated that pt was supposed to get feeding tube placed this weekend and she wanted it addressed while pt is admitted. Dr Cardona was notified and he asked for the pt's primary GI Dr. Per her Dtr, pt does not have a GI Dr. She provided name of pt's primary care group which was passed on to on coming RN.
[2020-02-08] MEDS: APIXAB 2.5 MG TABLET PO SCH ×2 (09:00→17:00)
[2020-02-08] MEDS: FOLIC ACID 1 MG TAB PO SCH (09:00)
[2020-02-08] MEDS: HYDROMORPHONE 1MG/1ML INJ IV PRN ×3 (10:20→19:59)
[2020-02-08 10:34] LABS: BASOPHILS % 0.2 % (0.0-1.0); EOSINOPHILS % 0.1 % (0.0-6.0); LYMPHOCYTES # (AUTO) 1.4 (1.0-3.2); LYMPHOCYTES % 6.3 % (18.0-39.1); MEAN CORPUSCULAR HEMOGLOBIN 32.5 pg (28-32); MEAN CORPUSCULAR HGB CONC 32.5 g/dL (31-35); MONOCYTES # (AUTO) 1.1 (0.2-0.8); MONOCYTES % 5.1 % (4.4-11.3); NEUTROPHILS # (AUTO) 18.8 (2.1-6.9); NEUTROPHILS % 87.4 % (38.7-80.0); PLATELET COUNT 141 x10e3/uL (140-360); RED BLOOD COUNT 1.91 x10e6/uL (3.6-5.1); RED CELL DISTRIBUTION WIDTH 13.6 % (11.7-14.4)
[2020-02-08 10:41] LABS: HEMATOCRIT 19.1 % (34.2-44.1)
[2020-02-08 10:43] LABS: HEMOGLOBIN 6.2 g/dL (12.0-16.0)
[2020-02-08 10:51] LABS: ALBUMIN 1.6 g/dL (3.5-5.0); ALBUMIN/GLOBULIN RATIO 0.5 (0.8-2.0); ALKALINE PHOSPHATASE 49 IU/L (40-150); ANION GAP 8.9 mmol/L (8-16); BLOOD UREA NITROGEN 19 mg/dL (7-26); BUN/CREATININE RATIO 32 (6-25); CALCIUM 7.4 mg/dL (8.4-10.2); CARBON DIOXIDE 22 mmol/L (22-29); CHLORIDE 107 mmol/L (98-107); CREATININE, SERUM 0.59 mg/dL (0.57-1.11); EST GLOMERULAR FILTRATION RATE > 60 ML/MIN (60-); GLUCOSE 95 mg/dL (74-118); SODIUM 135 mmol/L (136-145)
[2020-02-08 10:55] LABS: ALANINE AMINOTRANSFERASE < 6 IU/L (0-55)
[2020-02-08 10:56] LABS: POTASSIUM 2.9 mmol/L (3.5-5.1)
--- NOTE | 2020-02-08 10:56 | Progress Note ---
DATE: Pulmonary Critical Care Progress Note SUBJECTIVE: The patient received intravenous fluids throughout the night. Her Levophed has been weaned down to 3 mcg. She continues to complain of a dry mouth, but has good urine output. An echocardiogram shows a preserved ejection fraction. The patient does not complain of fevers. She does have pain in her perineal area near her wound. PHYSICAL EXAMINATION: VITAL SIGNS: The blood pressure is 103/56 and the saturation is 99% on room air. HEENT: Shows no facial swelling or erythema. LYMPHATIC: Shows no submandibular, cervical, or supraclavicular adenopathy. CARDIAC: Reveals a regular rate and rhythm with normal S1 and S2. LUNGS: Auscultation of lungs reveals clear breath sounds bilaterally. There is no wheezing. ABDOMEN: Soft and nontender. There is no rebound or guarding. EXTREMITIES: Shows no leg edema or calf tenderness. : Examination of the sacral and perineal area shows a wound in the perineum with a dark eschar. There is no fluctuance, inflamed tissue. There is a Araiza catheter in place. RADIOGRAPHIC DATA: CT scan of the chest shows diffuse esophageal wall thickening. She has changes from a prior gastric bypass. She also has some patchy consolidative opacities in the lower lungs. There is some hyperdensities in the inferior aspect of the right lower lobe and mild intrahepatic biliary dilatation. There is also moderate right hydronephrosis. IMPRESSION: 1. Severe sepsis secondary to urinary tract infection with an indwelling Araiza, present on admission. 2. Aspiration pneumonia. 3. Pneumomediastinum. 4. Esophagitis. 5. Vulvar cancer with a residual wound in the perineal area. 6. Anemia, unspecified. 7. Moderate protein-calorie malnutrition. 8. History of pulmonary embolism. PLAN: 1. Switch IV fluids to half normal saline with 20 of K. 2. Continue to monitor urine output and lactic acid. 3. Repeat CBC and chemistries. 4. Continue current antibiotics. 5. Wean off Levophed. 6. Repeat chest x-ray. 7. CT scan of the abdomen and pelvis. 8. Consult General Surgery and Gynecology, concerning the perineal wounds. 9. Case discussed with the patient, nursing staff, and Internal Medicine. Greater than 35 minutes in direct critical care time. MD KHUSHBOO Friend/HAMLETL /[id number]
[2020-02-08] MEDS ORDERED: ACETAMINOPHEN 325 MG TAB PO STA (11:00)
[2020-02-08] MEDS ORDERED: FAMOTIDINE 20 MG/2 ML VIAL IV ONE (11:00)
[2020-02-08 11:03] LABS: CREATINE KINASE 14 IU/L (29-168)
[2020-02-08 11:12] LABS: BASOPHILS % 0.2 % (0.0-1.0); EOSINOPHILS % 0.1 % (0.0-6.0); LYMPHOCYTES # (AUTO) 1.1 (1.0-3.2); LYMPHOCYTES % 6.3 % (18.0-39.1); MEAN CORPUSCULAR HEMOGLOBIN 32.8 pg (28-32); MEAN CORPUSCULAR HGB CONC 32.6 g/dL (31-35); MEAN CORPUSCULAR VOLUME 100.5 fL (81-99); MONOCYTES # (AUTO) 0.9 (0.2-0.8); MONOCYTES % 5.2 % (4.4-11.3); NEUTROPHILS # (AUTO) 15.7 (2.1-6.9); NEUTROPHILS % 87.5 % (38.7-80.0); PLATELET COUNT 132 x10e3/uL (140-360); RED BLOOD COUNT 1.89 x10e6/uL (3.6-5.1); RED CELL DISTRIBUTION WIDTH 13.4 % (11.7-14.4)
[2020-02-08] MEDS: SOD CHL 0.45%/POT CHL 20MEQ 1,000 ML IV SCH ×2 (11:22→19:33)
[2020-02-08 11:24] LABS: HEMOGLOBIN 6.2 g/dL (12.0-16.0)
[2020-02-08] MEDS ORDERED: SODIUM CHLORIDE 0.9% 250ML 250 ML IV ONE (11:30)
[2020-02-08] MEDS ORDERED: POTASSIUM CHLORIDE 20MEQ/100ML 200 ML IV ONE (11:30)
[2020-02-08] MEDS ORDERED: HYDRALAZINE HCL 20 MG/ML VIAL IV PRN (12:30)
[2020-02-08] MEDS: ONDANSETRON HCL INJ 2MG/ML 2ML 2 MG/ML VIAL IV PRN (12:58)
--- NOTE | 2020-02-08 13:06 | NUR ---
pt may have occasional ice chips to moisten mouth. MBS to follow up Monday
--- NOTE | 2020-02-08 14:26 | NUR ---
CONSULT WITH DR. GONZALEZ'S OFFICE WILL BE DEFERRED UNTIL CT SCAN RESULTS BECOME AVAILABLE.
--- NOTE | 2020-02-08 17:03 | NUR ---
Nutrition Intervention Note RD Recommendation(s) for Physician: The patient meets criteria for MODERATE protein-calorie malnutrition. -If PO is feasible, rec ADAT to regular diet with Ensure Enlive TID; diet texture per BLANKING PRESS OPERATOR recommendation -If PO is not safe, rec continuous TF with Osmolite 1.2 @55ml/hr, providing 1584kcal, 73g protein, 1082mL water; 100mL water flushes per q 6hr / additional water per MD -Rec MVI w/ minerals and vitamin C for wound healing -Check biochemical lab, weight, GI tolerance, I&O Plan of Care: RD following, monitoring for tolerance and adequacy Nutrition reason for involvement: GLOVE BRUSHER consult RD Assessment (02/07) 59 yo F, who is admitted from home for sepsis and aspiration PNA. Levophed has been d/c, per RN. CT chest showed mild aspiration. MBS is ordered for Monday. Visited pt in the room. Pt reported poor PO intake x 1 week at home. Nausea has resolved with Zofran. No vomiting episode noted. Pt has denture that is well fitting. Pt reports losing 80lbs since diagnosed with cancer in 2018. LBM 1 week ago. Pt has signs of moderate muscle and fat loss upon observation. Discussed nutrition care plan with pt. Will continue to monitor and follow. Principal Problems/Diagnoses: Sepsis, aspiration PNA PMH: vulvar cancer that required radiation and chemotherapy followed by surgical resection in 2018 I/O: +450mL/ -250mL GI: abdomen soft, non-tender, puffy + flatus Skin: + sacral wound, wound care has been consulted Labs: (02/07) Na 135 L, K 2.9 L, Ca 7.4 L Meds: dilaudid, zofran, cefepime Ht: 67in Wt: 111.56lb BMI: 17.5kg/m2 IBW: 135b +/- 10% Malnutrition Evaluation (02/08/2020) The patient meets criteria for MODERATE protein-calorie malnutrition. Energy intake: <75% of estimated energy requirements for >7 days Weight loss: 1-2% in 1 week (Acute) Fat loss: Moderate - slightly hollow around orbital region Muscle loss: Moderate temporal depression, some protrusion of acromion process Supporting Evidence: Fluid accumulation: unable to evaluate Functional Status: measurably reduced Nutrition Prescription (Diet Order): Cardiac diet in chart but RN said pt is NPO instead Estimated Nutritional Needs: 1530 - 1785calories/day (30-35 kcal/kg CBW) 76 - 102g protein/day (1.5-2 g pro/kg CBW) Diet Adequacy: Not meeting calorie needs, Not meeting protein needs Tolerance: Tolerance pending Diet Education Needs Assessment: Diet education not indicated. Nutrition Care Level: High Nutrition Diagnosis: Malnutrition related cancer as evidenced by moderate muscle/ fat loss, decreased PO intake for 7 days and risk of aspiration. Goal: Patient will meet 75-100% of estimated needs by follow up Progress: N/A Interventions: Modified diet, Commercial beverage, Multivitamin/mineral supplement therapy, Collaboration with other providers Monitoring/Evaluation: Total energy intake, Total protein intake, Formula/Solution, Modified diet, Liquid supplement, Weight change Signed: Precious Portillo MS, RD, LD
[2020-02-08] MEDS: NOREPINEPHRINE 8 MG/D5W 250 ML 250 ML IV PRN ×2 (17:21→17:41)
[2020-02-08] MEDS: VANCOMYCIN 1GM/NS 250 ML 250 ML IV SCH (23:09)
[2020-02-09] VITALS (24 sets, daily range): BP systolic 90–143; BP diastolic 54–74
[2020-02-09 01:17] LABS: CREATINE KINASE 10 IU/L (29-168)
[2020-02-09] MEDS: HYDROMORPHONE 1MG/1ML INJ IV PRN ×3 (04:41→15:14)
[2020-02-09] MEDS: SOD CHL 0.45%/POT CHL 20MEQ 1,000 ML IV SCH ×2 (05:33→14:46)
[2020-02-09 05:36] LABS: BASOPHILS % 0.2 % (0.0-1.0); EOSINOPHILS # (AUTO) 0.1 (0.0-0.4); EOSINOPHILS % 0.5 % (0.0-6.0); LYMPHOCYTES # (AUTO) 1.3 (1.0-3.2); LYMPHOCYTES % 8.6 % (18.0-39.1); MEAN CORPUSCULAR HGB CONC 33.3 g/dL (31-35); MONOCYTES % 6.5 % (4.4-11.3); NEUTROPHILS # (AUTO) 12.5 (2.1-6.9); NEUTROPHILS % 83.2 % (38.7-80.0); PLATELET COUNT 175 x10e3/uL (140-360); RED CELL DISTRIBUTION WIDTH 15.7 % (11.7-14.4)
[2020-02-09] MEDS: CEFEPIME 2 GM/NS 0.9% 100 ML 100 ML IV SCH (06:10)
[2020-02-09 06:37] LABS: ALBUMIN 1.6 g/dL (3.5-5.0); ALBUMIN/GLOBULIN RATIO 0.5 (0.8-2.0); ALKALINE PHOSPHATASE 61 IU/L (40-150); ANION GAP 10.9 mmol/L (8-16); BLOOD UREA NITROGEN 12 mg/dL (7-26); BUN/CREATININE RATIO 24 (6-25); CALCIUM 7.7 mg/dL (8.4-10.2); CARBON DIOXIDE 20 mmol/L (22-29); CHLORIDE 107 mmol/L (98-107); EST GLOMERULAR FILTRATION RATE > 60 ML/MIN (60-); POTASSIUM 3.9 mmol/L (3.5-5.1); SODIUM 134 mmol/L (136-145)
[2020-02-09 06:39] LABS: ALANINE AMINOTRANSFERASE < 6 IU/L (0-55); GLUCOSE 58 mg/dL (74-118)
--- NOTE | 2020-02-09 06:58 | NUR ---
lab called patient blood sugar was 58; called and spoke with dr Bassett, new order received. dextrose 50 % given. re checked blood sugar its 132 now. will continue to monitor.
[2020-02-09] MEDS ORDERED: DEXTROSE 50% SYRINGE 50 ML IV PRN (07:00)
[2020-02-09 07:11] LABS: THYROID STIMULATING HORMONE 1.963 uIU/mL (0.350-4.940)
--- NOTE | 2020-02-09 07:25 | NUR ---
Reported critical magnesium 1.[address] Reyna Bassett received orders to give 2 grams of Magnesium IV once.
[2020-02-09] MEDS ORDERED: MAGNESIUM SULFATE 2GM/50ML 50 ML IV ONE (07:30)
[2020-02-09 07:40] LABS: FERRITIN 718.6 ng/mL (4.63-204.00)
[2020-02-09] MEDS: FOLIC ACID 1 MG TAB PO SCH (09:00)
[2020-02-09] MEDS: ONDANSETRON HCL INJ 2MG/ML 2ML 2 MG/ML VIAL IV PRN (09:16)
--- NOTE | 2020-02-09 10:24 | Progress Note ---
DATE: SUBJECTIVE: The patient remains on Levophed at 4 mcg. She went for a CT scan of the abdomen and pelvis this morning. She was seen by General Surgery yesterday. Her magnesium was replaced this morning. Her blood cultures are growing out gram-positive cocci in pairs as well as gram-negative rods. Her urine is growing enterobacter. PHYSICAL EXAMINATION: VITAL SIGNS: The patient is afebrile. The blood pressure is 103/54, saturation is 98%. The pulse is 75. HEENT: No facial swelling or erythema. CARDIAC: Regular rate and rhythm with normal S1 and S2. LUNGS: Auscultation of the lungs shows decreased breath sounds at the bases. There is no wheezing. ABDOMEN: Soft, nontender. There is no rebound or guarding. EXTREMITIES: No leg edema or calf tenderness. There is a wound in the perineum. She has a Araiza catheter in place. LABORATORY DATA: White blood cell count is 14.9. Hemoglobin is 8 after receiving packed red blood cells yesterday. Platelet count is 175,000. Glucose is 132 and magnesium is 1.1. CO2 is 20. Sodium is 134. BUN to creatinine ratio is normal. Albumin is 1.6. IMPRESSION: 1. Severe sepsis secondary to urinary tract infection with indwelling Araiza present on admission. 2. Aspiration pneumonia. 3. Pneumomediastinum. 4. Esophagitis. 5. Vulvar cancer with residual wound in the perineal area. 6. Anemia, unspecified. 7. Moderate protein-calorie malnutrition. 8. History of pulmonary embolism. PLAN: 1. Continue current antibiotics. ID consultation is pending. 2. Wean Levophed as tolerated. 3. Monitor electrolytes. 4. Continue pain control. 5. Wound care. 6. Dietary consultation for protein calorie malnutrition. 7. Nutritional supplements as tolerated. 8. Case discussed with the patient, nursing staff, Internal Medicine and General Surgery. Greater than 35 minutes in direct critical care time. Sherwin Cardona MD [facility]/HAMLETL /[id number]
--- NOTE | 2020-02-09 10:31 | Diagnostic Imaging Report ---
EXAM: CT Abdomen and Pelvis WITH contrast INDICATION: ^h/o CA, open wound ^[id number] ^[id number] COMPARISON: CT chest 02/08/2020 TECHNIQUE: Abdomen and pelvis were scanned utilizing a multidetector helical scanner from the lung base to the pubic symphysis after administration of IV contrast. Coronal and sagittal reformations were obtained. Routine protocol was performed. Scan was performed when during portal venous phase. IV CONTRAST: 100 mL of Isovue-370 ORAL CONTRAST: None RADIATION DOSE: Total DLP: 255.7 mGy*cm Estimated effective dose: (DLP x 0.015 x size factor) mSv COMPLICATIONS: None FINDINGS: LINES and TUBES: Araiza catheter within the urinary bladder. LOWER THORAX: Small bilateral pleural effusions. Bibasilar atelectasis. No new consolidation in the lower lobes since yesterday's exam. Partially visualized pneumomediastinum surrounding the distal esophagus appears decreased when compared to 02/08/2020. HEPATOBILIARY: No focal hepatic lesions. No biliary ductal dilation. GALLBLADDER: Cholecystectomy. SPLEEN: No splenomegaly. PANCREAS: No focal masses or ductal dilatation. ADRENALS: No adrenal nodules KIDNEYS/URETERS: Kidneys enhance symmetrically. Moderate right hydroureteronephrosis without visualized calcified stone or obstructing mass, which is associated with diffuse wall enhancement which may reflect infection or inflammation. Mild left hydroureteronephrosis without visualized stone or obstructing mass. No cystic or solid mass lesions. GI TRACT: Stable gastric bypass postsurgical changes with decreased surrounding pneumomediastinum as described above. There is mild soft tissue thickening of the distal esophagus and proximal stomach at the surgical site. Partial left hemicolectomy. There is a colon ostomy within the anterior pelvic wall slightly to the left of midline. The remaining bowel is decompressed. Normal appendix. There is mild wall thickening of the proximal ascending colon better seen on series 2, image 27. No large obstructing masses are visualized. PELVIC ORGANS/BLADDER: Status post vulvectomy. The urinary bladder is moderately distended with Araiza catheter in place. The uterus is not visualized. No adnexal masses. LYMPH NODES: No lymphadenopathy. VESSELS: IVC filter within the infrarenal IVC. Mild to moderate atherosclerotic changes of the abdominal aorta without aneurysm. PERITONEUM / RETROPERITONEUM: No free air. Small amount of free fluid in the deep pelvis. BONES: Sclerotic changes of the sacrum adjacent to the ulcer likely representing chronic inflammatory changes/chronic osteomyelitis. Multilevel degenerative changes of the lumbar spine. SOFT TISSUES: Chronic sacral ulcer surrounding by extensive soft tissue density likely chronic inflammatory changes. No drainable fluid collections or abscess. IMPRESSION: 1. Moderate right and mild left hydroureteronephrosis without visualized calcified stone or obstructing mass. There is diffuse wall enhancement of the right ureter which may reflect inflammation or infection. 2. Status post left hemicolectomy with anterior pelvic colostomy. No bowel obstruction. 3. Mildly decreased pneumomediastinum surrounding the distal esophagus and surrounding the gastric bypass when compared to yesterday's exam. Indeterminate free fluid in the lower pelvis. Overall findings may reflect a leak at the proximal gastric bypass. Recommend surgical consultation. 4. Chronic sacral ulcer with associated inflammatory changes and probably chronic osteomyelitis of the sacrum. No drainable fluid collections or abscess. Signed by: Dr. Connie Jamison M.D. on 02/09/2020 10:27 AM
--- NOTE | 2020-02-09 11:08 | NUR ---
INFECTIOUS DISEASE CONSULTATION CHIEF COMPLAINT: Fever CONSULTING PHYSICIAN: Malcolm Breaux MD HISTORY OF PRESENT ILLNESS: This is a 59 year old female with PMH of vulvar carcinoma s/p surgical resection 2 years ago. The patient has a chronic indwelling zheng that is changed once a month per home health nurse. The patient also has a sacral wound. The patient arrived to the ED with reports of fatigue and fever. The patient believed it was related to her urine. PAST SURGICAL HISTORY: 1. Status post cholecystectomy. 2. Status post gastric bypass surgery many years ago. 3. Status post vulvectomy in 2018, following chemotherapy and radiation therapy. 4. History of prior feeding tube. PAST MEDICAL HISTORY: 1. Vulvar cancer that required radiation and chemotherapy followed by surgical resection in 2018. The patient has not required any additional chemoradiation since then. 2. Chronic wound. 3. Indwelling Zheng. 4. History of a pulmonary embolism 8 months ago. The patient is still on Eliquis for this. 5. No prior history of heart disease. SOCIAL HISTORY: prior smoker, denies alcohol, denies drugs ALLERGIES: NO KNOWN DRUG ALLERGIES. FAMILY HISTORY: Family history is noncontributory. REVIEW OF SYSTEMS: Positive: fever, chills, sacral pain, edema BLE Negative: nausea, vomiting, diarrhea ALL 14 point ROS negative unless otherwise noted. PHYSICAL EXAMINATION: VITAL SIGNS: 98, 111/67, 77, 14 HEENT: non iteric CARDIAC: s1, s2, no s3, s4 LUNGS: rhonchi, diminished ABDOMEN: Soft, nontender. There is no rebound or guarding. EXTREMITIES: BLE edema +2 LABORATORY DATA: reviewed RADIOGRAPHIC DATA: Chest x-ray shows a left basilar opacity as well as a possible opacity in the right lung. IMPRESSION: 1. Urinary tract infection with an indwelling Zheng and severe sepsis, present on admission. 2. Aspiration pneumonia. 3. Tachycardia. 4. Prior history of pulmonary embolism. 5. History of vulvar cancer. 6. Anemia, unspecified. 7. Moderate protein-calorie malnutrition. 8. Sepsis on admission PLAN: 02/09/20: Leukocytosis persists, but slowly resolving on antibiotic. We will change the patient from Cefepime to Mererm for full coverage. Continue Vancomcyin. Monitor kidney function. Await final results of cultures. Local care to wound. Supportive care per ICU team. Repeat labs and chest x-ray. Monitor clinically. DISCUSSED WITH DR. YOUNG
--- NOTE | 2020-02-09 11:45 | NUR ---
Notified Emely Hamlin CARE PROFESSIONAL patients glucose 68, and patient is NPO, alert and oriented, made her aware patient on IVF potassium chloride in 0.45% NS received orders to d/c current IVF and give D5% in NS with 20 MEQ of KCL.
[2020-02-09] MEDS ORDERED: D5NS/KCL 20MEQ 1,000 ML IV SCH (12:30)
[2020-02-09] MEDS: D5NS/KCL 20MEQ 1,000 ML IV SCH ×2 (14:03→22:25)
[2020-02-09] MEDS: NOREPINEPHRINE 8 MG/D5W 250 ML 250 ML IV PRN (14:07)
[2020-02-09] MEDS: MEROPENEM 500MG/ NS 50ML 50 ML IV SCH ×2 (15:10→21:25)
--- NOTE | 2020-02-09 16:48 | NUR ---
Made Emely Hamlin aware patient glucose up to 82, asked if we could decrease 100 MLS/hr to 50Mls/hr per [employer]TER no continue to monitor blood glucose and tomorrow will reevaluate if IVF will decrease.
--- NOTE | 2020-02-09 16:56 | Consultation ---
DATE OF CONSULTATION: 02/09/2020 CHIEF COMPLAINT: Intractable vomiting and pain in the anal region. HISTORY OF PRESENT ILLNESS: This patient is a 59-year-old female with 2-week history of progressive nausea and vomiting with inability to tolerate oral intake. She also had some fevers and weakness. She denies any cough. No abdominal pain, but she has pain in the lower back anal region where she had a previous history of vulvar cancer and she completed surgery with chemoradiation last November of . PAST MEDICAL HISTORY: As mentioned is positive for vulvar cancer diagnosed in with multimodality treatment with surgery followed by radiochemotherapy. She has had left colectomy with colostomy. She has a chronic decubitus sacral wound. PAST SURGICAL HISTORY: Positive for cholecystectomy, gastric bypass surgery 13 years ago, vulvectomy in with chemoradiation postoperatively, history of feeding tube placement. REVIEW OF SYSTEMS: As in HPI. SOCIAL HABITS: The patient is a former smoker but denies history of alcohol abuse. ALLERGIES: SHE HAS NO DRUG ALLERGIES. PHYSICAL EXAMINATION: VITAL SIGNS: The patient's vital signs are stable. She is afebrile. The patient is on pressors of Levophed. HEENT: Sclerae nonicteric. NECK: Supple. LUNGS: Clear. HEART: Regular rate and rhythm. ABDOMEN: Scaphoid with mild guarding in the epigastrium, but no rebound tenderness. EXTREMITIES: No cyanosis or edema. Sacral area has a grade 4 decubitus ulcer with minimal drainage. The perianal vulvar area where she had previous treatment for vulvar carcinoma show some necrotic tissue with exudative drainage. No erythema or abscess formation. LABORATORY DATA: White cell count is 15, hemoglobin of 8, platelet count 175. Creatinine of 0.5. Lactic acid 1.1. Liver function tests within normal limits with albumin of 1.6. Abdominal CT show bilateral hydroureteronephrosis. There is pneumomediastinum surrounding distal esophagus. This may suggest leak from gastric bypass. ASSESSMENT: Intractable vomiting and hypertension with sepsis and CT finding of pneumomediastinum suggesting leakage at the proximal gastric bypass. PLAN: Upper GI study to rule out leakage in the lower esophagus, gastric bypass area. MD ILSA Hernandez/SULMA /[id number]
--- NOTE | 2020-02-09 18:31 | Consultation ---
DATE OF CONSULTATION: 02/09/2020 REASON FOR CONSULTATION: Anemia, history of valvular cancer. The full consult will follow after this consult. HISTORY OF PRESENT ILLNESS: A 59-year-old female with a history of valvular cancer, status post surgical management with history of gastric bypass surgery, history of chemo and radiation treatment after valvular cancer management, history of chronic sacral wound, history of pulmonary embolism was on Eliquis before admission, currently hospitalized with generalized weakness, fever, and discolored urine. She is on chronic Araiza catheter. The patient was hypertensive at admission, required Levophed. The patient also required ICU management. The patient's initial impression was UTI with indwelling Araiza and severe sepsis and started on antibiotic treatment. Hemoglobin was 8.4, went down to 6.2. Kidney function was normal. MCV was elevated. The patient has elevated white blood cells. Anemia workup is consistent with anemia of chronic disease. The patient has slightly abnormal coagulation profile. CT abdomen and chest shows moderate right and mild left hydronephrosis, chronic sacral ulcer with associated inflammatory changes with chronic osteomyelitis. ASSESSMENT, PLAN, AND RECOMMENDATION: The patient with a history of multiple medical condition including valvular cancer, status post valvulectomy following chemo and radiation, chronic sacral wound, history of gastric bypass surgery, and history of pulmonary embolism, on anticoagulation. The patient had worsening anemia. Anemia workup is consistent with anemia of chronic disease. She had chronic sacral wound causing marrow suppression. The patient received radiation treatment and bone marrow treated. Possible iron malabsorption after stomach surgery. The patient received blood transfusion. Ferritin level was elevated because of anemia of chronic disease. Note, good candidate for treatment with erythropoietin treatment. The patient will benefit with blood transfusion. Avoid frequent blood draw. Monitor CBC very closely. History of pulmonary embolism. The patient received 6 months of treatment with anticoagulation treatment. Current anticoagulation treatment on hold. Recommend to continue to hold. The patient only had one episode, but has hypercoagulable conditions include history of malignancy. Resume blood thinner if appropriate. We will follow. MD GAVIN Banegas/SULMA /[id number]
[2020-02-09] MEDS: VANCOMYCIN 1GM/NS 250 ML 250 ML IV SCH (22:51)
[2020-02-10] VITALS (26 sets, daily range): BP systolic 92–139; BP diastolic 59–80
[2020-02-10] MEDS: HYDROMORPHONE 1MG/1ML INJ IV PRN ×3 (00:37→10:00)
[2020-02-10 05:32] LABS: BASOPHILS % 0.4 % (0.0-1.0); EOSINOPHILS # (AUTO) 0.1 (0.0-0.4); EOSINOPHILS % 1.6 % (0.0-6.0); HEMOGLOBIN 7.1 g/dL (12.0-16.0); LYMPHOCYTES % 11.9 % (18.0-39.1); MEAN CORPUSCULAR HEMOGLOBIN 31.6 pg (28-32); MEAN CORPUSCULAR HGB CONC 32.7 g/dL (31-35); MEAN CORPUSCULAR VOLUME 96.4 fL (81-99); MONOCYTES # (AUTO) 0.6 (0.2-0.8); MONOCYTES % 7.1 % (4.4-11.3); NEUTROPHILS # (AUTO) 6.2 (2.1-6.9); NEUTROPHILS % 77.4 % (38.7-80.0); PLATELET COUNT 190 x10e3/uL (140-360); RED BLOOD COUNT 2.25 x10e6/uL (3.6-5.1); RED CELL DISTRIBUTION WIDTH 15.8 % (11.7-14.4)
[2020-02-10 05:35] LABS: HEMATOCRIT 21.7 % (34.2-44.1)
[2020-02-10] MEDS: MEROPENEM 500MG/ NS 50ML 50 ML IV SCH ×3 (05:54→21:34)
[2020-02-10 05:56] LABS: ALBUMIN 1.4 g/dL (3.5-5.0); ALBUMIN/GLOBULIN RATIO 0.4 (0.8-2.0); ALKALINE PHOSPHATASE 44 IU/L (40-150); BLOOD UREA NITROGEN 6 mg/dL (7-26); BUN/CREATININE RATIO 14 (6-25); CALCIUM 7.3 mg/dL (8.4-10.2); CARBON DIOXIDE 23 mmol/L (22-29); CHLORIDE 110 mmol/L (98-107); CREATININE, SERUM 0.42 mg/dL (0.57-1.11); EST GLOMERULAR FILTRATION RATE > 60 ML/MIN (60-); GLUCOSE 86 mg/dL (74-118); POTASSIUM 3.2 mmol/L (3.5-5.1); SODIUM 135 mmol/L (136-145)
[2020-02-10 06:06] LABS: ALANINE AMINOTRANSFERASE < 6 IU/L (0-55); ANION GAP 5.2 mmol/L (8-16)
--- NOTE | 2020-02-10 06:50 | Diagnostic Imaging Report ---
EXAMINATION: CHEST SINGLE (PORTABLE) INDICATION: aspiration pneumonia COMPARISON: CT chest 02/08/2020 and chest radiograph 02/08/2020. FINDINGS: The patient is rotated to the right. TUBES and LINES: A right IJ central venous catheter terminates in the SVC. Left-sided chest port with catheter tip terminates in the SVC. Overlying EKG leads and linear structure in the left lower hemithorax. LUNGS: Lungs are well inflated. There has been interval development of a triangular opacity which overlies the left upper lung. Mild patchy bibasilar opacities. PLEURA: No pleural effusion or pneumothorax. HEART AND MEDIASTINUM: The cardiomediastinal silhouette is unremarkable. BONES AND SOFT TISSUES: No acute osseous abnormality. Diffuse osteopenia. UPPER ABDOMEN: No free air under the diaphragm. IMPRESSION: Interval development of a triangular opacity which overlies the left upper lung. This may represent partial atelectasis in the left upper lobe (possibly from mucous plugging) or overlying structure. Recommend clinical correlation and follow-up radiograph. Mild patchy bibasilar opacities, which may represent aspiration or atelectasis in the appropriate clinical setting. Signed by: Dr. Leander Beltre MD on 02/10/2020 6:46 AM
[2020-02-10] MEDS: FOLIC ACID 1 MG TAB PO SCH (07:35)
[2020-02-10] MEDS: IRON SUCROSE 100 MG in SODIUM CHLORIDE 0.9% 100 ML 100 ML IV SCH (07:44)
[2020-02-10] MEDS ORDERED: POTASSIUM CHLORIDE 20MEQ/100ML 100 ML IV ONE (09:00)
[2020-02-10] MEDS ORDERED: SODIUM CHLORIDE 0.9% 250ML 250 ML IV SCH (09:00)
--- NOTE | 2020-02-10 09:09 | NUR ---
INFECTIOUS PROGRESS NOTE CHIEF COMPLAINT: Sacral Pain REVIEW OF SYSTEMS: Positive: sacral pain Negative: nausea, vomiting, diarrhea, fever, chills ALL 14 point ROS negative unless otherwise noted. PHYSICAL EXAMINATION: VITAL SIGNS: 97.4, 113/69, 75, 14 GENERAL: AAOX3 HEENT: non icteric CARDIAC: s1, s2, no s3, s4 LUNGS: rhonchi, diminished ABDOMEN: Soft, nontender. There is no rebound or guarding. EXTREMITIES: BLE edema +2 LABORATORY DATA: reviewed RADIOGRAPHIC DATA: Chest x-ray shows a left basilar opacity as well as a possible opacity in the right lung. IMPRESSION: 1. Moderate right and mild left hydroureteronephrosis without visualized calcified stone or obstructing mass. There is diffuse wall enhancement of the right ureter which may reflect inflammation or infection. 2. Status post left hemicolectomy with anterior pelvic colostomy. No bowel obstruction. 3. Mildly decreased pneumomediastinum surrounding the distal esophagus and surrounding the gastric bypass when compared to yesterday's exam. Indeterminate free fluid in the lower pelvis. Overall findings may reflect a leak at the proximal gastric bypass. Recommend surgical consultation. 4. Chronic sacral ulcer with associated inflammatory changes and probably chronic osteomyelitis of the sacrum. No drainable fluid collections or abscess. IMPRESSION: This is a 59 year old female with PMH of vulvar carcinoma s/p surgical resection 2 years ago. The patient has a chronic indwelling zheng that is changed once a month per home health nurse. The patient also has a sacral wound. The patient arrived to the ED with reports of fatigue and fever. The patient lives at home with , daughter, and grand-daughter. 1. Urinary tract infection with an indwelling Zheng and severe sepsis, present on admission. 2. Aspiration pneumonia. 3. Tachycardia. 4. Prior history of pulmonary embolism. 5. History of vulvar cancer. 6. Anemia, unspecified. 7. Moderate protein-calorie malnutrition. 8. Sepsis on admission PLAN: 02/10/20 Upper GI study to rule out leakage in the lower esophagus, gastric bypass area. Continues on Merrem and Vancomycin. Leukocytosis resolved, patient is afebrile. Await susceptibilities on culture results. Pain in sacrum. 02/09/20 Leukocytosis persists, but slowly resolving on antibiotic. We will change the patient from Cefepime to Mererm for full coverage. Continue Vancomycin. Monitor kidney function. Await final results of cultures. Local care to wound. Supportive care per ICU team. Repeat labs and chest x-ray. Monitor clinically. DISCUSSED WITH DR. YOUNG
--- NOTE | 2020-02-10 09:27 | Consultation ---
DATE OF CONSULTATION: 02/10/2020 Urology Consultation REASON FOR CONSULTATION: Hydronephrosis. 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 This was done following chemotherapy and radiation. The patient then had eventual colostomy as well. Since then she has had chronic urinary retention and has been managed with a Araiza catheter, this has been changed by home health. She does not recall seeing a urologist. The patient has had the decubiti and she was admitted with sepsis and urinary tract infection present on admission. Urological consultation was sought, when CT scanning revealed hydroureteronephrosis bilaterally, worse on the right. The patient denies gross hematuria. PAST MEDICAL AND SURGICAL HISTORY: 1. Status post cholecystectomy. 2. Status post gastric lap-band, which failed. 3. Status post gastric bypass, which succeeded. 4. Vulvar cancer with the above procedures. 5. Decubitus ulcers. 6. Status post implantation of IVC filter. CURRENT MEDICATIONS: Please refer to the MAR. ALLERGIES: PLEASE REFER TO THE MAR. SOCIAL HISTORY: The patient denies current smoking, ethanol, or drug use. FAMILY HISTORY: Noncontributory to the active urological problems. REVIEW OF SYSTEMS: Discussed as above history of present illness and past medical history, otherwise negative for all systems. PHYSICAL EXAMINATION: GENERAL: Chronically ill-appearing woman lying in bed, in no apparent distress. VITAL SIGNS: She is currently afebrile. Her vital signs are currently stable. ABDOMEN: Soft, nondistended, and nontender without costovertebral angle tenderness. There is a colostomy in the lower abdomen. GENITOURINARY: There is a Araiza catheter in place that is obviously not one from our hospital and appears old that is draining yellow urine out. Internal examination is deferred. For the remaining physical examination systems, please refer to the ERT sheet in the history and physical chart. LABORATORY STUDIES: Laboratory studies were reviewed. The patient has anemia, hyponatremia, hypokalemia, hypocalcemia, and leukocytosis as well as proteinuria. CT scan of the abdomen and pelvis was done with contrast. It reveals bilateral hydroureteronephrosis, worse on the right and also reveals no stone and the bladder was markedly distended despite a Araiza catheter in place. The uterus was not visualized, but the patient denied a hysterectomy. The patient does have an IVC filter in place. ASSESSMENT: 1. Probable neurogenic bladder from radiation and surgery. 2. Chronic urinary retention. 3. Chronic Araiza catheter. 4. Urinary tract infection present on admission. 5. Microhematuria. 6. Leukocytosis. 7. Anemia. 8. Hyponatremia. 9. Hypokalemia. 10. Hypocalcemia. 11. Proteinuria. 12. Right worse than left hydroureteronephrosis. PLAN: 1. I asked the nurse to change the Araiza catheter. 2. To the followup CT that is pending, instructed the nurse to change the Araiza catheter prior to that CT. 3. Once the patient's infection has been treated, cystoscopy and retrograde pyelograms are definitely in order. 4. I also discussed with the patient the potential for suprapubic cystostomy. This may be a better option for her chronic Araiza catheter, which was found to cause urethral erosion, as well as worsening infection complication. Thank you much for involving us in care of your patient. We will be happy to follow her along with you as well as an outpatient. Logan Hernandez MD [place]/MODL /[id number]
--- NOTE | 2020-02-10 09:28 | NUR ---
ADDENDUM 02/10/20 [id number] Lab just notified me of VRE urine. Will change from Vancomycin. The blood culture final is not back yet, but the lab highly suspects VRE bacteremia as well. No zyvox as it does not cover bacteremia. Will do daptomycin. Lab to call with final results. Discussed with Dr. Jackson
[2020-02-10] MEDS ORDERED: LINEZOLID 600 MG/D5W 300ML 300 ML IV SCH (09:30)
--- NOTE | 2020-02-10 10:07 | Consultation ---
DATE OF CONSULTATION: 02/10/2020 REASON FOR CONSULTATION: Symptomatic anemia. HISTORY OF PRESENT ILLNESS: A 59-year-old female with a history of vulvar cancer, status post surgical management, status post chemo and radiation, history of gastric bypass surgery, history of sacral wound, pulmonary embolism, treated for Eliquis, admitted through ER with generalized weakness, fever, and discolored urine. The patient was hypotensive at admission. She required intensive care unit management. She was diagnosed UTI with sepsis. She has indwelling Araiza catheter. The patient also had worsening anemia. Hemoglobin was 8, which dropped to 6. MCV was slightly elevated. The patient had elevated white blood cells. Started on antibiotic treatment. She also had CT chest shows moderate right and left hydronephrosis, chronic sacral ulcer with associated inflammatory changes. Also, has likely chronic osteomyelitis. The patient required blood transfusion. Currently, following surgeon. Possibility of gastric bypass leakage. Current hemoglobin 7.1. Current ferritin level is elevated. PAST MEDICAL HISTORY: Include vulvar cancer, anemia, gastric bypass surgery, pulmonary embolism. ALLERGIES: MEDICATION LIST: Reviewed. SOCIAL HISTORY: No current smoking, alcohol, or drugs. REVIEW OF SYSTEMS: A 12-point review as per HPI. FAMILY HISTORY: Noncontributory. PHYSICAL EXAMINATION: GENERAL: Alert, awake, communicative. HEENT: Normocephalic, atraumatic. Sclerae pink. Conjunctivae clear. NECK: Supple. CHEST: Clear to auscultation. CARDIOVASCULAR: Regular rate and rhythm. ABDOMEN: Slightly distended and tender. SKIN: Sacral decubitus ulcer. EXTREMITIES: No edema. DIESEL DRAGLINE OPERATOR: Intact. LABORATORY DATA: Imaging reviewed. ASSESSMENT AND PLAN: The patient with a history of multiple medical conditions include: 1. Status post valvulectomy following chemo and radiation, chronic sacral wound, history of gastric bypass surgery, history of pulmonary embolism. 2. Symptomatic anemia. 3. Multifactorial include anemia of chronic disease. 4. Radiation-induced marrow suppression. 5. Iron malabsorption. RECOMMENDATIONS: 1. Continue to monitor CBC. 2. Blood transfusion if hemoglobin drops below 7. 3. Not a candidate for erythropoietin treatment. 4. We will follow. Vulvar cancer: 1. Received treatment. 2. Recommendation for outpatient management. Pulmonary embolism: 1. Received 3 months of anticoagulation treatment. 2. Anticoagulation is on hold. 3. Monitor the patient closely. Possible gastric bypass leakage: 1. Surgery on the case. 2. We will follow surgical recommendation. MD GAVIN Banegas/SULMA /[id number]
[2020-02-10] MEDS: D5NS/KCL 20MEQ 1,000 ML IV SCH ×2 (10:34→21:34)
--- NOTE | 2020-02-10 11:04 | NUR ---
ST NOTE: Pt currently NPO for peg tube replacement today. Will move MBS to 02/11/20. Handoff to BRUNILDA Hancock
[2020-02-10] MEDS ORDERED: DIATRIZOATE MEGL/DIATRIZOA SOD 120 ML BTL PO ONE (12:28)
[2020-02-10] MEDS ORDERED: ALBUTEROL SULFATE HFA 8GM INHALATION AEROSOL INH PRN (13:30)
[2020-02-10 13:37] LABS: BASOPHILS % 0.2 % (0.0-1.0); EOSINOPHILS # (AUTO) 0.1 (0.0-0.4); EOSINOPHILS % 1.2 % (0.0-6.0); HEMATOCRIT 23.2 % (34.2-44.1); HEMOGLOBIN 7.4 g/dL (12.0-16.0); LYMPHOCYTES # (AUTO) 0.9 (1.0-3.2); LYMPHOCYTES % 10.2 % (18.0-39.1); MEAN CORPUSCULAR HEMOGLOBIN 31.1 pg (28-32); MEAN CORPUSCULAR HGB CONC 31.9 g/dL (31-35); MEAN CORPUSCULAR VOLUME 97.5 fL (81-99); MONOCYTES # (AUTO) 0.7 (0.2-0.8); MONOCYTES % 7.6 % (4.4-11.3); NEUTROPHILS # (AUTO) 6.8 (2.1-6.9); NEUTROPHILS % 79.5 % (38.7-80.0); PLATELET COUNT 203 x10e3/uL (140-360); RED BLOOD COUNT 2.38 x10e6/uL (3.6-5.1); RED CELL DISTRIBUTION WIDTH 15.7 % (11.7-14.4)
--- NOTE | 2020-02-10 13:38 | Progress Note ---
DATE: SUBJECTIVE: The patient is now undergoing a Gastrografin swallow to assess her pneumomediastinum. General surgery is suspicious of a possible anastomotic leak from the gastric bypass. Urine is growing out greater than 100,000 vancomycin resistant enterococcus. Blood is growing out gamma hemolytic strep as well as E. coli. The patient reports being thirsty. She has no nausea or vomiting. She is not complaining of pain. She has no fevers. PHYSICAL EXAMINATION: VITAL SIGNS: The blood pressure is 118/77, saturation is 100%. HEENT: Shows no facial swelling or erythema. CARDIAC: Reveals regular rate and rhythm with normal S1, S2. LUNGS: Auscultation of lungs reveals clear breath sounds anteriorly. There are decreased breath sounds at the bases. ABDOMEN: Soft, nontender. There is no rebound or guarding. EXTREMITIES: Shows no leg edema or calf tenderness. There is no cyanosis or clubbing. LABORATORY DATA: White blood cell count is 8 and hemoglobin is 7.1. The platelet count is 190. BUN to creatinine ratio is normal. Other electrolytes are within normal limits. Albumin is 1.4. RADIOGRAPHIC DATA: Chest x-ray represents a possible opacity in the left upper lobe. There are some bibasilar opacities at the bases. IMPRESSION: 1. Severe sepsis secondary to vancomycin-resistant enterococcal urinary tract infection with indwelling Araiza present on admission. 2. Escherichia coli bacteremia and gamma hemolytic strep bacteremia. 3. Pneumomediastinum possibly related to malfunction of the anastomosis from the prior gastric bypass. 4. Severe protein-calorie malnutrition. 5. Vulvar cancer with residual wound in the perianal area. 6. Anemia secondary to chronic blood loss. 7. History of pulmonary embolism. PLAN: 1. Continue current antibiotics as per Infectious Disease. 2. Await results of Gastrografin swallow. 3. Continue IV fluids. 4. Replace electrolytes. 5. Continue wound care. 6. Dietary consultation. 7. Case discussed with the patient, nursing staff, and Infectious Disease. MD KHUSHBOO Friend/SULMA /[id number]
[2020-02-10] MEDS: DAPTOMYCIN 500mg 10ML 300 MG in SODIUM CHLORIDE 0.9% 100 ML IV SCH (13:44)
--- NOTE | 2020-02-10 13:54 | NUR ---
WOUND CARE CONSULT FOR 59 YO FEMALE HX OF VULVAR CANCER ,FEVER , SEPSIS, UTI MADHURI 13 ON STRICT PUP STATUS AND INTERVENTIONS AND ALTERNATING MATTRESS LABS: WBC-8.05 HGB_7.1 GLUCOSE-86 SKIN ASSESSMENT COMPLETE PATIENT PRESENTS WITH STAGE 4 SACRAL ULCERATION EXPOSED BONE AND SLOUGH NOTED TO WOUND BASE MEASURES 8CM X9CM DIEGO RECTAL PAST SURGICAL REMOVAL OF CANCEROUS LESION MEASURES 4CM X 3CM X 3.5CM RECOMMENDATIONS: NURSING TO CONTINUE TO MAINTAIN STRICT PUP STATUS AND INTERVENTIONS AND ALTERNATING MATTRESS NURSING TO CONTINUE TO ASSIST PATIENT OUT OF BED FOR MEALS AND MUCH TOLERATED NURSING TO CONTINUE TO ASSIST PATIENT NEEDED WITH MEALS AND NUTRITIONAL SUPPLEMENTS TO ENSURE PROPER REQUIREMENTS FOR HEALING NURSING TO CONTINUE TO OFFLOAD FEET AND HEELS NEEDED WITH PILLOW SUSPENSION WHEN IN BED NURSING TO CLEAN STAGE 4 SACRAL ULCERATION WITH NORMAL SALINE DAILY AND APPLY SANTYL OINTMENT AND ALLEVYN FOAM DRESSING NURSING TO CLEAN DIEGO RECTAL FULL THICKNESS WOUND WITH NORMAL SALINE DAILY AND PACK WITH SILVASORB GEL AND KERLIX COVER WITH ALLEVYN FOAM DRESSING Addendum: 02/10/20 at 1403 by Jamison Danielle RN Amended: Links added.
--- NOTE | 2020-02-10 14:34 | NUR ---
PT services not recommended at this time. Due to BLE stiffness, pressure would shift from the ischium to sacrum in sitting and would compromise sacral wound healing. Also, pt has very low tolerance to PROM ex on BLE. Has been bed bound for ~14 months. Poor rehab potential. Will benefit from the use of a mechanical lift, free-standing overhead trapeze bar and a gel or ROHO W/C cushion if pt will be D/C'd back home. Addendum: 02/10/20 at 1439 by Yefri Leblanc PT Amended: Links added.
--- NOTE | 2020-02-10 15:24 | NUR ---
Nutrition Intervention Note RD Recommendation(s) for Physician: The patient meets criteria for MODERATE protein-calorie malnutrition. -If PO is feasible, rec ADAT to regular diet with Ensure Enlive TID; diet texture per HOSPICE CASE MANAGER recommendation -If PO is not safe, recommend continuous TF with Osmolite 1.2 at 60 ml/hr (to provide 1728 kcal and 80 gm protein). Water flushes per MD or 75 ml q 4 hours. -Recommend Abdirizak 1 packet BID to promote wound healing. -Recommend MVI with minerals, vitamin C 500 mg BID, and Zinc Sulfate 220 mg once daily x 10 days to promote wound healing Plan of Care: RD following, monitoring for tolerance and adequacy Nutrition reason for involvement: MD consult- malnutrition RD Assessment 02/09: Follow up and consult. Received MD consult for protein calorie malnutrition, pt previously evaluated and meets criteria for moderate protein calorie malnutrition. Pt remains NPO, per RN plan for MBS today as PEG placement was cancelled- Gastrografin swallow to assess her pneumomediastinum, suspicion of possible anastomotic leak from the gastric bypass. Pt and rec's discussed with RN on unit. TF, diet, supplement, and MVI/mineral rec's placed in chart for MD. HOSPICE CASE MANAGER following. Chart reviewed. Will continue to monitor. (02/07) 59 yo F, who is admitted from home for sepsis and aspiration PNA. Levophed has been d/c, per RN. CT chest showed mild aspiration. MBS is ordered for Monday. Visited pt in the room. Pt reported poor PO intake x 1 week at home. Nausea has resolved with Zofran. No vomiting episode noted. Pt has denture that is well fitting. Pt reports losing 80lbs since diagnosed with cancer in 2018. LBM 1 week ago. Pt has signs of moderate muscle and fat loss upon observation. Discussed nutrition care plan with pt. Will continue to monitor and follow. Principal Problems/Diagnoses: Sepsis, aspiration PNA PMH: vulvar cancer that required radiation and chemotherapy followed by surgical resection in 2018 GI: LBM 02/09, + colostomy Skin: buttock wound, no staging- blackened and necrotic with visible bone Labs: 02/09: Na 135, K 3.2, BUN 6, Cr 0.42, Gluc 86, POC Gluc 64-132 Meds: IV Fe, abx, dilaudid, KCl IVPB, norco, folic acid Ht: 67in Wt: 111.56lb BMI: 17.5kg/m2 IBW: 135b +/- 10% Malnutrition Evaluation (02/08/2020) The patient meets criteria for MODERATE protein-calorie malnutrition. Energy intake: <75% of estimated energy requirements for >7 days Weight loss: 1-2% in 1 week (Acute) Fat loss: Moderate - slightly hollow around orbital region Muscle loss: Moderate temporal depression, some protrusion of acromion process Supporting Evidence: Fluid accumulation: unable to evaluate Functional Status: measurably reduced Nutrition Prescription (Diet Order): NPO Estimated Nutritional Needs: 1530 - 1785calories/day (30-35 kcal/kg CBW) 76 - 102g protein/day (1.5-2 g pro/kg CBW) Diet Adequacy: Not meeting calorie needs, Not meeting protein needs Tolerance: Tolerance pending Diet Education Needs Assessment: Diet education not indicated. Nutrition Care Level: High Nutrition Diagnosis: Malnutrition related cancer as evidenced by moderate muscle/ fat loss, decreased PO intake for 7 days and risk of aspiration. Goal: Patient will meet 75-100% of estimated needs by follow up Progress: not progressing Interventions: Modified diet, EN- composition, rate, route, Commercial beverage, Multivitamin/mineral supplement therapy, Collaboration with other providers Monitoring/Evaluation: Total energy intake, Total protein intake, Formula/Solution, Modified diet, Liquid supplement, Weight change Signed: Carrie Welsh RD, LD, [facility]
[2020-02-10] MEDS ORDERED: DIATRIZOATE MEGL/DIATRIZOA SOD 30 ML BTL PO ONE (19:38)
--- NOTE | 2020-02-10 20:55 | Diagnostic Imaging Report ---
EXAM: CT Abdomen and Pelvis without contrast INDICATION:POSSIBLE ESOPHAGEAL GASTRIC LEAKAGE COMPARISON: CT abdomen pelvis dated 02/09/2020. TECHNIQUE: Abdomen and pelvis were scanned without administration of IV contrast. Coronal and sagittal reformations were obtained. ORAL CONTRAST: Yes RADIATION DOSE: Total DLP: 234.48 mGy*cm Estimated effective dose: (DLP x 0.015 x size factor) mSv COMPLICATIONS: None FINDINGS: LINES and TUBES: Araiza catheter within the urinary bladder. LOWER THORAX: Small bilateral pleural effusions with associated atelectasis, unchanged. Partially visualized pneumomediastinum surrounding the distal esophagus appears decreased when compared to 02/08/2020. HEPATOBILIARY: No focal hepatic lesions. No biliary ductal dilation. GALLBLADDER: Cholecystectomy. SPLEEN: No splenomegaly. PANCREAS: No focal masses or ductal dilatation. ADRENALS: No adrenal nodules KIDNEYS/URETERS: Moderate right hydroureteronephrosis without visualized calcified stone, unchanged. Mild left hydroureteronephrosis without visualized stone or obstructing mass, unchanged. No cystic or solid mass lesions. No stones. GI TRACT: Stable gastric bypass postsurgical changes. There is mild soft tissue thickening of the distal esophagus and proximal stomach at the surgical site. No definite evidence of leak is seen. Partial left hemicolectomy. There is a colon ostomy within the anterior pelvic wall slightly to the left of midline. There is no obstruction. PELVIC ORGANS/BLADDER: Status post vulvectomy. The urinary bladder is moderately distended with Araiza catheter in place. The uterus is not visualized. No adnexal masses. LYMPH NODES: No lymphadenopathy. VESSELS: IVC filter within the infrarenal IVC. Mild to moderate atherosclerotic changes of the abdominal aorta. PERITONEUM / RETROPERITONEUM: No free air. Small amount of free fluid in the deep pelvis. BONES: Sclerotic changes of the sacrum adjacent to the ulcer likely representing chronic inflammatory changes/chronic osteomyelitis. Multilevel degenerative changes of the lumbar spine. SOFT TISSUES: Chronic sacral ulcer surrounding by extensive soft tissue density likely chronic inflammatory changes. No drainable fluid collections or abscess. IMPRESSION: Stable gastric bypass postsurgical changes with no definite evidence of esophageal/gastric leak. If clinical suspicion persists recommend further evaluation with fluoroscopy. No significant interval change. Signed by: Rafael Arshad MD on 02/10/2020 8:52 PM
[2020-02-11] VITALS (25 sets, daily range): BP systolic 100–133; BP diastolic 62–84
[2020-02-11] MEDS: MEROPENEM 500MG/ NS 50ML 50 ML IV SCH ×3 (05:20→22:00)
[2020-02-11] MEDS: D5NS/KCL 20MEQ 1,000 ML IV SCH (05:20)
[2020-02-11 05:36] LABS: BASOPHILS % 0.6 % (0.0-1.0); EOSINOPHILS # (AUTO) 0.1 (0.0-0.4); EOSINOPHILS % 1.9 % (0.0-6.0); HEMOGLOBIN 7.1 g/dL (12.0-16.0); LYMPHOCYTES # (AUTO) 1.2 (1.0-3.2); LYMPHOCYTES % 17.2 % (18.0-39.1); MEAN CORPUSCULAR VOLUME 96.8 fL (81-99); MONOCYTES # (AUTO) 0.7 (0.2-0.8); MONOCYTES % 9.5 % (4.4-11.3); NEUTROPHILS # (AUTO) 4.7 (2.1-6.9); NEUTROPHILS % 69.3 % (38.7-80.0); PLATELET COUNT 248 x10e3/uL (140-360); RED BLOOD COUNT 2.22 x10e6/uL (3.6-5.1); RED CELL DISTRIBUTION WIDTH 15.5 % (11.7-14.4)
[2020-02-11 05:41] LABS: HEMATOCRIT 21.5 % (34.2-44.1)
[2020-02-11 05:56] LABS: ANION GAP 6.7 mmol/L (8-16); BLOOD UREA NITROGEN < 5 mg/dL (7-26); CALCIUM 7.2 mg/dL (8.4-10.2); CARBON DIOXIDE 23 mmol/L (22-29); CHLORIDE 111 mmol/L (98-107); CREATININE, SERUM 0.39 mg/dL (0.57-1.11); EST GLOMERULAR FILTRATION RATE > 60 ML/MIN (60-); GLUCOSE 85 mg/dL (74-118); POTASSIUM 3.7 mmol/L (3.5-5.1); SODIUM 137 mmol/L (136-145)
[2020-02-11 05:57] LABS: BUN/CREATININE RATIO 13 (6-25)
--- NOTE | 2020-02-11 06:37 | NUR ---
Dr. Ymailet Cardona notified of critical magnesium. New order noted.
[2020-02-11] MEDS ORDERED: MAGNESIUM SULFATE 2GM/50ML 50 ML IV ONE ×3 (06:45→12:45)
[2020-02-11] MEDS: IRON SUCROSE 100 MG in SODIUM CHLORIDE 0.9% 100 ML 100 ML IV SCH (08:33)
[2020-02-11] MEDS: FAMOTIDINE 20 MG/2 ML VIAL IV SCH ×2 (08:40→16:02)
[2020-02-11] MEDS: SILVER ANTIMICROBIAL WOUND GEL 45ML TOP SCH (08:41)
[2020-02-11] MEDS: FOLIC ACID 1 MG TAB PO SCH (08:41)
--- NOTE | 2020-02-11 08:50 | Progress Note ---
DATE: SUBJECTIVE: The patient had a Gastrografin swallow yesterday. Official results from Radiology are still pending. She is still n.p.o. and reports decreased appetite. She does not have abdominal pain. She denies chest pain. She has pain in her perineal area. She has no fevers. PHYSICAL EXAMINATION: VITAL SIGNS: The blood pressure is 125/70 and saturation is 100%. She is on nasal cannula. Her pulse is 83. Respiratory rate is 16. HEENT: Shows no facial swelling or erythema. There is a right IJ line in place. The site looks clean. There is no drainage. CARDIAC: Reveals regular rate and rhythm with normal S1, S2. LUNGS: Auscultation of lungs shows clear breath sounds bilaterally. There is no wheezing. ABDOMEN: Soft, nontender. There is no rebound or guarding. EXTREMITIES: Examination of extremities shows atrophy and weakness in the lower extremities. Examination of perineum shows a stage IV decubitus ulcer. LABORATORY DATA: White blood cell count is 6.8 and the hemoglobin is 7.1. The platelet count is 284. The IPR-rw-[id number] ratio is 5 to 0.39. Other electrolytes are within normal limits. The magnesium is 1.0. IMPRESSION: 1. Severe sepsis secondary to Escherichia coli bacteremia and gamma hemolytic strep bacteremia, present on admission. 2. Enterococcal urinary tract infection with indwelling Araiza, present on admission. 3. Severe protein-calorie malnutrition. 4. Pneumomediastinum of unclear etiology. 5. Anemia secondary to chronic blood loss. 6. Prior gastric bypass surgery. 7. Vulvar cancer. 8. Stage IV decubitus ulcer in the perineal area. 9. Hypomagnesemia. 10. Hypokalemia. 11. History of pulmonary embolism. PLAN: 1. Await results of Gastrografin swallow. 2. Repeat chest x-ray today. 3. Begin TPN and hold intravenous fluids. 4. Continue meropenem and daptomycin as recommended by Infectious Disease. 5. Surgical evaluation for decubitus ulcer. 6. Complete surgical evaluation for prior gastric bypass and anastomosis. 7. Possible PEG tube. 8. Case discussed with the patient, nursing, speech therapy, Internal Medicine, and General Surgery. Greater than 35 minutes in direct critical care time. Sherwin M Brendan, MD [facility]LE[facility] /[id number]
--- NOTE | 2020-02-11 09:00 | Progress Note ---
DATE: SUBJECTIVE: The patient is seen and examined today. The patient appeared comfortable, clinical condition is same, no much improvement noted. OBJECTIVE: GENERAL: Alert, awake, communicative. HEENT: Normocephalic and atraumatic. Sclerae pink. Conjunctivae clear. NECK: Supple. CHEST: Decreased breath sounds at bases. ABDOMEN: Soft. EXTREMITIES: No edema. SKIN: Decubitus ulcer. COORDINATOR INTEGRATED MARKETING: Intact. LABORATORY AND IMAGING: Reviewed. ASSESSMENT: The patient with history of multiple medical conditions that includes vulvar cancer, status post vulvectomy following chemoradiation, chronic sacral wound, symptomatic anemia, urinary retention, history of urinary tract infection. 1. Symptomatic anemia. Anemia workup is consistent with anemia of chronic disease. 2. Marrow was exposed to radiation. 3. Iron malabsorption. a. Kidney function is normal. b. Not indicated for any erythropoietin treatment. c. Current hemoglobin 7.1. d. Recommendations for close observation. e. Blood transfusion if hemoglobin drops below 7. 4. Vulvar cancer. a. Vulvectomy, chemoradiation. b. Likely radiation-induced bladder damage. c. Chronic Araiza catheter. d. She is also following urologist very closely. e. Supposed to get cystoscopy after infection is clear. 5. Sacral decubitus ulcer. a. Continue wound care. 6. History of pulmonary embolism. a. Currently anticoagulation treatment is on hold. 7. Possible gastric bypass leakage. a. Surgery on the case. We will continue remaining care. We will follow. MD GAVIN Banegas/SULMA /[id number]
--- NOTE | 2020-02-11 09:29 | Diagnostic Imaging Report ---
EXAM: CHEST SINGLE (PORTABLE) DATE: 02/11/2020 8:20 AM INDICATION: Sepsis, fever, pneumonia COMPARISON: 02/10/2020 FINDINGS/IMPRESSION: Left subclavian chest port identified in stable position. Right IJ central venous catheter tip again terminating over the SVC. The previously identified opacity within the left upper lobe is no longer visualized and likely represents resolution of atelectasis. There is no evidence for new large focal consolidation, pneumothorax, or significant pleural effusion. The cardiomediastinal silhouette is stable in appearance. No acute osseous abnormalities identified. Signed by: Dr. Steve Wong MD on 02/11/2020 9:26 AM
--- NOTE | 2020-02-11 09:44 | Diagnostic Imaging Report ---
EXAM: MODIFIED BA. SWALLOW DATE: 02/10/2020 12:00 AM INDICATION: Aspiration Fluoroscopy Time: 1.5 min. Reference Air Kerma (Ka, r): 3.97 mGy. FINDINGS/IMPRESSION: Modified barium swallow was performed by the speech pathologist. The radiologist was not present for the examination. Provided images demonstrate no evidence for subglottic tracheal aspiration. Please refer to speech pathology notes for further details. Signed by: Dr. Steve Wong MD on 02/11/2020 9:41 AM
--- NOTE | 2020-02-11 10:04 | NUR ---
INFECTIOUS PROGRESS NOTE CHIEF COMPLAINT: Sacral Pain REVIEW OF SYSTEMS: Positive: sacral pain Negative: nausea, vomiting, diarrhea, fever, chills ALL 14 point ROS negative unless otherwise noted. PHYSICAL EXAMINATION: VITAL SIGNS: 97.4, 113/69, 75, 14 GENERAL: AAOX3 HEENT: non icteric NECK: no JVD CARDIAC: s1, s2, no s3, s4 LUNGS: rhonchi, diminished ABDOMEN: Soft, nontender. There is no rebound or guarding. EXTREMITIES: BLE edema +2, sacral wound stage 4 LABORATORY DATA: reviewed RADIOGRAPHIC DATA: FINDINGS/IMPRESSION CXR : Left subclavian chest port identified in stable position. Right IJ central venous catheter tip again terminating over the SVC. The previously identified opacity within the left upper lobe is no longer visualized and likely represents resolution of atelectasis. There is no evidence for new large focal consolidation, pneumothorax, or significant pleural effusion. The cardiomediastinal silhouette is stable in appearance. No acute osseous abnormalities identified. CT ABD PELVIS IMPRESSION: Stable gastric bypass postsurgical changes with no definite evidence of esophageal/gastric leak. If clinical suspicion persists recommend further evaluation with fluoroscopy. No significant interval change. IMPRESSION: This is a 59 year old female with PMH of vulvar carcinoma s/p surgical resection 2 years ago. The patient has a chronic indwelling zheng that is changed once a month per home health nurse. The patient also has a sacral wound. The patient arrived to the ED with reports of fatigue and fever. The patient lives at home with , daughter, and grand-daughter. 1. Urinary tract infection with an indwelling Zheng and severe sepsis, present on admission. 2. Aspiration pneumonia. 3. Tachycardia. 4. Prior history of pulmonary embolism. 5. History of vulvar cancer. 6. Anemia, unspecified. 7. Moderate protein-calorie malnutrition. 8. Sepsis on admission 9. 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 E. Coli bacteremia and gamma hemolytic strep bacteremia (present on admission) PLAN: 02/11/20 S/p MBS, no report as of yet. PEG tube planned. CT/CXR reviewed. We will continue the same ABT, follow reqs of GI. Leukocytosis resolved, afebrile. Wound care, supportive care per critical care team. TPN initiated while awaiting PEG tube placement for malnutrition (right IJ). Surgical eval performed, no surgical interventions at this time. 02/10/20 Upper GI study to rule out leakage in the lower esophagus, gastric bypass area. Continues on Merrem and Vancomycin. Leukocytosis resolved, patient is afebrile. Await susceptibilities on culture results. Pain in sacrum. 02/09/20 Leukocytosis persists, but slowly resolving on antibiotic. We will change the patient from Cefepime to Mererm for full coverage. Continue Vancomycin. Monitor kidney function. Await final results of cultures. Local care to wound. Supportive care per ICU team. Repeat labs and chest x-ray. Monitor clinically. DISCUSSED WITH DR. YOUNG
[2020-02-11] MEDS: HYDROMORPHONE 1MG/1ML INJ IV PRN ×3 (10:34→20:30)
[2020-02-11] MEDS: DAPTOMYCIN 500mg 10ML 300 MG in SODIUM CHLORIDE 0.9% 100 ML IV SCH (13:32)
[2020-02-11] MEDS ORDERED: CEFTRIAXONE SOD 1 GM/NS 50 ML 50 ML IV SCH (17:00)
--- NOTE | 2020-02-11 19:33 | Consultation ---
DATE OF CONSULTATION: HISTORY OF PRESENT ILLNESS: This patient who was originally seen by my nurse practitioner on February 08. The patient was seen and examined. Chart reviewed. Please refer to my note. The patient is a 59-year-old female with history of valvar carcinoma status post surgical resection two years ago, chronic indwelling Araiza catheter was changed once per month with her home health. Comes in to the emergency room with fever, chills and not feeling well. The patient has a history of vulvar cancer, chronic wound indwelling catheter. The patient was admitted. Blood cultures obtained. Urine culture obtained. The patient's blood cultures are showing E coli and gamma hemolytic E coli, sensitivity pattern reviewed. LABORATORY DATA: White count is 6.8 when she first came it was 14.9, creatinine 0.39. PHYSICAL EXAMINATION: GENERAL: She is currently alert and oriented, does not seem to be in acute distress. VITAL SIGNS: Stable. Currently afebrile. HEENT: She is not icteric. NECK: Supple. CHEST: Clear. HEART: S1 and S2. ABDOMEN: Soft. IMPRESSION: 1. Sepsis on admission, pyelonephritis, urinary tract infection, bacteremia with E coli and strep, probably also VRE. We will change her to Rocephin and daptomycin. 2. Chronic anemia from iron deficiency. 3. Vulvar cancer, status post surgery, status post chemo, status post radiation, chronic Araiza catheter, sacral decubitus ulcer, probably component of being in bed and radiation, history of pulmonary embolism, history of gastric bypass before. From Infectious Disease point of view, we will change her to Rocephin 1 g q.12, daptomycin 6 mg/kg. Recheck blood cultures. Await Gastrografin swallow. Begin TPN. I would recommend echocardiogram. Discussed with the medical team. We will follow. MD GAVIN Mixon/MODL /[id number]
[2020-02-11] MEDS ORDERED: CENTRAL TPN FORMULA 1 BAG IV SCH (20:00)
[2020-02-12] VITALS (25 sets, daily range): BP systolic 96–162; BP diastolic 66–98
[2020-02-12 05:03] LABS: BASOPHILS % 0.4 % (0.0-1.0); EOSINOPHILS # (AUTO) 0.1 (0.0-0.4); EOSINOPHILS % 1.4 % (0.0-6.0); LYMPHOCYTES # (AUTO) 1.2 (1.0-3.2); LYMPHOCYTES % 20.4 % (18.0-39.1); MEAN CORPUSCULAR HEMOGLOBIN 30.5 pg (28-32); MEAN CORPUSCULAR HGB CONC 30.8 g/dL (31-35); MONOCYTES # (AUTO) 0.5 (0.2-0.8); MONOCYTES % 9.1 % (4.4-11.3); NEUTROPHILS # (AUTO) 3.9 (2.1-6.9); NEUTROPHILS % 67.5 % (38.7-80.0); PLATELET COUNT 248 x10e3/uL (140-360); RED BLOOD COUNT 2.03 x10e6/uL (3.6-5.1); RED CELL DISTRIBUTION WIDTH 15.1 % (11.7-14.4)
[2020-02-12 05:21] LABS: HEMATOCRIT 20.1 % (34.2-44.1); HEMOGLOBIN 6.2 g/dL (12.0-16.0)
[2020-02-12 05:36] LABS: ALBUMIN 1.4 g/dL (3.5-5.0); ALBUMIN/GLOBULIN RATIO 0.4 (0.8-2.0); ALKALINE PHOSPHATASE 42 IU/L (40-150); BLOOD UREA NITROGEN < 5 mg/dL (7-26); CALCIUM 7.3 mg/dL (8.4-10.2); CARBON DIOXIDE 23 mmol/L (22-29); CHLORIDE 110 mmol/L (98-107); CREATININE, SERUM 0.38 mg/dL (0.57-1.11); EST GLOMERULAR FILTRATION RATE > 60 ML/MIN (60-); GLUCOSE 96 mg/dL (74-118); MAGNESIUM 1.7 MG/DL (1.3-2.1); POTASSIUM 3.6 mmol/L (3.5-5.1); SODIUM 134 mmol/L (136-145)
[2020-02-12 05:37] LABS: ALANINE AMINOTRANSFERASE < 6 IU/L (0-55); ANION GAP 4.6 mmol/L (8-16); BUN/CREATININE RATIO 13 (6-25)
[2020-02-12] MEDS: MEROPENEM 500MG/ NS 50ML 50 ML IV SCH ×3 (05:50→21:23)
--- NOTE | 2020-02-12 06:10 | NUR ---
Notified Grant Shen of the hemoglobin level, ordered for 2 units of blood to be transfused
[2020-02-12] MEDS ORDERED: SODIUM CHLORIDE 0.9% 250ML 250 ML IV ONE (06:55)
[2020-02-12] MEDS: FOLIC ACID 1 MG TAB PO SCH (08:30)
[2020-02-12] MEDS: FAMOTIDINE 20 MG/2 ML VIAL IV SCH ×2 (08:53→17:00)
[2020-02-12] MEDS: SILVER ANTIMICROBIAL WOUND GEL 45ML TOP SCH (08:53)
[2020-02-12] MEDS: IRON SUCROSE 100 MG in SODIUM CHLORIDE 0.9% 100 ML 100 ML IV SCH (08:53)
--- NOTE | 2020-02-12 09:06 | Progress Note ---
DATE: Pulmonary Critical Care Progress Note SUBJECTIVE: The patient's blood count was 6.2. She is scheduled to receive additional packed red blood cells today. She is on TPN. She is scheduled for an upper endoscopy and possible feeding tube placement today. She is currently on antibiotics for vancomycin-resistant enterococcus and E. coli in her urine and blood. PHYSICAL EXAMINATION: VITAL SIGNS: The blood pressure is 158/97 and saturation is 100%. HEENT: Shows no facial swelling or erythema. CARDIAC: Reveals regular rate and rhythm with normal S1, S2. LUNGS: Auscultation of lungs reveals rhonchorous breath sounds bilaterally. There are decreased breath sounds at the bases. ABDOMEN: Soft and nontender. There is no rebound or guarding. EXTREMITIES: Shows some muscle atrophy. There is a poorly healing decubitus wound in the perineum. LABORATORY DATA: Hemoglobin is 6.2 and white blood cell count is 5.7. The platelet count is 248. The RFB-cm-lknxrmkkam ratio is 5 to 0.38. The sodium is 134. Magnesium is 1.7. RADIOGRAPHIC DATA: Chest x-ray shows no significant change. IMPRESSION: 1. Severe sepsis secondary to vancomycin-resistant Enterococcus and Escherichia coli from urinary source. This was present on admission. The patient had an indwelling catheter on admission. 2. Severe protein-calorie malnutrition. 3. Pneumomediastinum of unclear etiology. 4. Anemia secondary to chronic blood loss and nutritional deficiency. 5. History of prior vertical banding gastroplasty followed by a revision to gastric bypass. The patient initially had a Zita fundoplication that was removed on the 2nd surgery. 6. Vulvar cancer. 7. Stage IV decubitus ulcer in the perineum. 8. History of pulmonary embolism. 9. Pneumomediastinum of unclear etiology. PLAN: 1. Continue TPN. 2. Complete two weeks of meropenem and daptomycin for the vancomycin-resistant enterococcus and E. coli. 3. Continue wound care. 4. Possible PEG today. 5. Repeat CBC after receiving blood. 6. Case discussed with General Surgery, nursing, Hematology, and the patient. Greater than 35 minutes in direct critical care time. Sherwin Cardona MD [facility]/MODL /[id number]
[2020-02-12] MEDS ORDERED: SODIUM PHOSPHATE 3 MMOL/ML INJ IV ONE (09:15)
--- NOTE | 2020-02-12 09:50 | Progress Note ---
DATE: SUBJECTIVE: The patient is seen and examined today. The patient appears lethargic and complaining of nausea. She also has worsening anemia. OBJECTIVE: GENERAL: Alert, awake, communicative. HEENT: Normocephalic, atraumatic. Sclerae pink. Conjunctivae clear. NECK: Supple. CHEST: Clear to auscultation. CARDIOVASCULAR: Regular rate and rhythm. ABDOMEN: Soft, nontender. EXTREMITIES: No edema. SALES ANALYST: Grossly intact. LABS AND IMAGING: Reviewed. ASSESSMENT AND PLAN: 1. The patient with history of multiple medical condition, currently following for symptomatic anemia. The etiology of anemia was multifactorial include marrow suppression from radiation, anemia of chronic disease, iron malabsorption. The patient's current hemoglobin dropped to 6. a. Recommendations. I. Blood transfusion. II. Monitor CBC. 2. Vulvar cancer. a. The patient had vulvectomy and chemo and radiation treatment. b. She also had radiation-induced bladder dysfunction. c. Araiza, following urologist, scheduled for cystoscopy after infection is better. 3. Sepsis. a. Infectious Disease on the case. She has pyelonephritis, urinary tract infection, and bacteremia with Escherichia coli and Strep, probably also vancomycin-resistant Enterococcus, currently on Rocephin and daptomycin. We will continue remaining care. We will follow the patient closely. MD GAVIN Banegas/SULMA /[id number]
[2020-02-12] MEDS ORDERED: SODIUM CHLORIDE 0.9% IV ONE (10:15)
[2020-02-12] MEDS ORDERED: SODIUM PHOSPHATE IV ONE (10:15)
--- NOTE | 2020-02-12 11:30 | NUR ---
ST Note: Pt NPO for procedure. Will f/u tomorrow 02/13/20.
[2020-02-12] MEDS ORDERED: SODIUM CHLORIDE 0.9% 100 ML ONE (11:49)
--- NOTE | 2020-02-12 12:10 | NUR ---
Blood transfusion started. Patient to receive 2 Units of PRBC's.
[2020-02-12] MEDS: DAPTOMYCIN 500mg 10ML 300 MG in SODIUM CHLORIDE 0.9% 100 ML IV SCH (12:30)
--- NOTE | 2020-02-12 13:55 | NUR ---
@nd Unit of PRBC's started
--- NOTE | 2020-02-12 13:56 | NUR ---
Nutrition Intervention Note RD Recommendation(s) for Physician: -TPN Rec's: As pt is high risk for refeeding when Phos > 2 mg/dL, increase standard TPN to 60 ml/hr (Dextrose 30% 500ml/L, AA10% 500 ml/L), 25 gm lipids/day, Na Acetate 70 mEq/L, KCl 20 mEq/L, K Phos 20 mmol/L, Ca Gluconate 4.6 mEq/L, Mg Sulfate 12 mEq/L, MVI, trace, thiamine, folic acid. (To provide 1200 ml, 216 gm dextrose, 72 gm protein, 1272 kcal- 83% kcal needs, 95% protein needs) -Recommend checking BMP with Mg and Phos daily- replace low lytes as needed. Check TG weekly. -If PO is feasible, rec ADAT to regular diet with Ensure Enlive TID; diet texture per ANALYST COMPETITIVE INTELLIGENCE recommendation -If PO is not safe, recommend continuous TF with Osmolite 1.2 at 60 ml/hr (to provide 1728 kcal and 80 gm protein). Water flushes per MD or 75 ml q 4 hours. -Recommend Abdirizak 1 packet BID to promote wound healing. -Recommend MVI with minerals, vitamin C 500 mg BID, and Zinc Sulfate 220 mg once daily x 10 days to promote wound healing. The patient meets criteria for MODERATE protein-calorie malnutrition. Plan of Care: RD following, monitoring for tolerance and adequacy. Diet, TF, TPN, vit/min, supplement rec's. Nutrition reason for involvement: new TPN, follow up RD Assessment 02/11: Follow up. Pt remains NPO, plan for procedure- possible PEG today. TPN initiated by MD, currently on standard formula with standard lytes. Noted low Phos, replaced with Na Phos 10 mmol IVPB this am. TPN rec's provided. ANALYST COMPETITIVE INTELLIGENCE following pt. Chart reviewed. Will continue to follow. 02/09: Follow up and consult. Received MD consult for protein calorie malnutrition, pt previously evaluated and meets criteria for moderate protein calorie malnutrition. Pt remains NPO, per RN plan for MBS today as PEG placement was cancelled- Gastrografin swallow to assess her pneumomediastinum, suspicion of possible anastomotic leak from the gastric bypass. Pt and rec's discussed with RN on unit. TF, diet, supplement, and MVI/mineral rec's placed in chart for MD. ANALYST COMPETITIVE INTELLIGENCE following. Chart reviewed. Will continue to monitor. (02/07) 59 yo F, who is admitted from home for sepsis and aspiration PNA. Levophed has been d/c, per RN. CT chest showed mild aspiration. MBS is ordered for Monday. Visited pt in the room. Pt reported poor PO intake x 1 week at home. Nausea has resolved with Zofran. No vomiting episode noted. Pt has denture that is well fitting. Pt reports losing 80lbs since diagnosed with cancer in 2018. LBM 1 week ago. Pt has signs of moderate muscle and fat loss upon observation. Discussed nutrition care plan with pt. Will continue to monitor and follow. Principal Problems/Diagnoses: Sepsis, aspiration PNA PMH: vulvar cancer that required radiation and chemotherapy followed by surgical resection in 2018 GI: LBM 02/09, + colostomy Skin: buttock wound, no staging- blackened and necrotic with visible bone Labs: 02/11: Na 134, K 3.6, Cl 110, CO2 23, BUN <5, Cr 0.38, Gluc 96, Ca 7.3, Mg 1.7, Phos 1.6 02/09: Na 135, K 3.2, BUN 6, Cr 0.42, Gluc 86, POC Gluc 64-132 Meds: IV Fe, abx, dilaudid, norco, zofran, folic acid, Na Phos IVPB Ht: 67in Wt: 111.56lb BMI: 17.5kg/m2 IBW: 135b +/- 10% Malnutrition Evaluation (02/08/2020) The patient meets criteria for MODERATE protein-calorie malnutrition. Energy intake: <75% of estimated energy requirements for >7 days Weight loss: 1-2% in 1 week (Acute) Fat loss: Moderate - slightly hollow around orbital region Muscle loss: Moderate temporal depression, some protrusion of acromion process Supporting Evidence: Fluid accumulation: unable to evaluate Functional Status: measurably reduced Nutrition Prescription (Diet Order): NPO Estimated Nutritional Needs: 1530 - 1785calories/day (30-35 kcal/kg CBW) 76 - 102g protein/day (1.5-2 g pro/kg CBW) Diet Adequacy: Not meeting calorie needs, Not meeting protein needs Tolerance: Tolerance pending Diet Education Needs Assessment: Diet education not indicated. Nutrition Care Level: High Nutrition Diagnosis: Malnutrition related cancer as evidenced by moderate muscle/ fat loss, decreased PO intake for 7 days and risk of aspiration. Goal: Patient will meet 75-100% of estimated needs by follow up Progress: not progressing Interventions: Modified diet, EN- composition, rate, route, Commercial beverage, Multivitamin/mineral supplement therapy, Collaboration with other providers Monitoring/Evaluation: Total energy intake, Total protein intake, Formula/Solution, Modified diet, Liquid supplement, Weight change Signed: Carrie Welsh RD, LD, [facility]
[2020-02-12] MEDS: HYDROMORPHONE 1MG/1ML INJ IV PRN ×3 (16:15→17:13)
--- NOTE | 2020-02-12 16:21 | Progress Note ---
DATE: SUBJECTIVE: Ms. Guzman is doing better. She remains in intensive care unit. REVIEW OF SYSTEMS: Otherwise, HEENT: Negative. PULMONARY: Negative. CARDIAC: Negative. She had little bit of nausea earlier. She was confused earlier. PHYSICAL EXAMINATION: GENERAL: She is currently alert and oriented, responds appropriately. VITAL SIGNS: Stable, currently afebrile. No fever. HEENT: She is not icteric. NECK: Supple. CHEST: Clear bilateral. HEART: S1 and S2. No S3, S4, or murmur. ABDOMEN: Soft. Bowel sounds present. No tenderness. No hepatosplenomegaly. EXTREMITIES: No edema. SKIN: No rash. She is pale. LABORATORY DATA: White count 5.7 and hemoglobin 6.2. Her influenza has been negative. COVID is negative. Sodium 134, potassium 3.6 with a creatinine 0.38. Urine cultures showed VRE. Blood cultures, E. coli. The patient, who is currently on daptomycin. She is also on meropenem and she is on TPN. IMPRESSION: 1. Sepsis, present on admission secondary to bacteremia, Escherichia coli and Enterococcus. Recheck blood cultures. 2. Protein-calorie malnutrition, history of anemia, chronic blood loss, iron deficiency, vulvar cancer, stage IV decubitus ulcer. Continue current antibiotic. We will monitor her CBC and chemistry panel. We will reassess in the morning. MD GAVIN Mixon/SULMA /[id number]
[2020-02-12] MEDS: CENTRAL TPN FORMULA 1 BAG IV SCH (19:38)
[2020-02-13] VITALS (24 sets, daily range): BP systolic 101–155; BP diastolic 47–82
[2020-02-13] MEDS: MEROPENEM 500MG/ NS 50ML 50 ML IV SCH ×3 (05:22→20:54)
[2020-02-13 05:38] LABS: BASOPHILS % 0.6 % (0.0-1.0); EOSINOPHILS # (AUTO) 0.2 (0.0-0.4); EOSINOPHILS % 2.1 % (0.0-6.0); HEMATOCRIT 31.5 % (34.2-44.1); HEMOGLOBIN 10.3 g/dL (12.0-16.0); LYMPHOCYTES # (AUTO) 1.1 (1.0-3.2); LYMPHOCYTES % 15.7 % (18.0-39.1); MEAN CORPUSCULAR HEMOGLOBIN 30.4 pg (28-32); MEAN CORPUSCULAR HGB CONC 32.7 g/dL (31-35); MEAN CORPUSCULAR VOLUME 92.9 fL (81-99); MONOCYTES # (AUTO) 0.7 (0.2-0.8); MONOCYTES % 9.5 % (4.4-11.3); NEUTROPHILS % 69.9 % (38.7-80.0); PLATELET COUNT 221 x10e3/uL (140-360); RED CELL DISTRIBUTION WIDTH 16.8 % (11.7-14.4)
[2020-02-13 05:59] LABS: RED BLOOD COUNT 3.39 x10e6/uL (3.6-5.1)
[2020-02-13 06:03] LABS: ALBUMIN 1.5 g/dL (3.5-5.0); ALBUMIN/GLOBULIN RATIO 0.4 (0.8-2.0); ALKALINE PHOSPHATASE 45 IU/L (40-150); BLOOD UREA NITROGEN 6 mg/dL (7-26); BUN/CREATININE RATIO 15 (6-25); CALCIUM 7.7 mg/dL (8.4-10.2); CARBON DIOXIDE 25 mmol/L (22-29); CHLORIDE 108 mmol/L (98-107); CREATININE, SERUM 0.39 mg/dL (0.57-1.11); EST GLOMERULAR FILTRATION RATE > 60 ML/MIN (60-); GLUCOSE 107 mg/dL (74-118); POTASSIUM 3.6 mmol/L (3.5-5.1); SODIUM 135 mmol/L (136-145)
[2020-02-13 06:08] LABS: ANION GAP 5.6 mmol/L (8-16)
[2020-02-13 06:09] LABS: ALANINE AMINOTRANSFERASE < 6 IU/L (0-55)
[2020-02-13] MEDS: FOLIC ACID 1 MG TAB PO SCH (08:45)
[2020-02-13] MEDS: IRON SUCROSE 100 MG in SODIUM CHLORIDE 0.9% 100 ML 100 ML IV SCH (08:45)
[2020-02-13] MEDS: FAMOTIDINE 20 MG/2 ML VIAL IV SCH ×2 (08:45→17:13)
[2020-02-13] MEDS: HYDROMORPHONE 1MG/1ML INJ IV PRN ×3 (09:22→21:40)
[2020-02-13 09:39] LABS: EOSINOPHILS % (MANUAL) 1 % (0-7); LYMPHOCYTES % (MANUAL) 19 % (19-48); MONOCYTES % (MANUAL) 2 % (3.4-9.0); MYELOCYTES % (MANUAL) 1 % (0-0); NEUTROPHILS % (MANUAL) 77 % (40-74)
[2020-02-13 09:40] LABS: ANISOCYTOSIS SLIGHT; PLATELET ESTIMATE ADEQUATE; PLATELET MORPHOLOGY COMMENT NORMAL; RBC MORPHOLOGY COMMENT NORMAL
[2020-02-13] MEDS: SILVER ANTIMICROBIAL WOUND GEL 45ML TOP SCH (10:00)
--- NOTE | 2020-02-13 10:12 | NUR ---
INFECTIOUS PROGRESS NOTE CHIEF COMPLAINT: Sacral Pain REVIEW OF SYSTEMS: Positive: sacral pain Negative: nausea, vomiting, diarrhea, fever, chills ALL 14 point ROS negative unless otherwise noted. PHYSICAL EXAMINATION: VITAL SIGNS: 98.1, 155/77, 70, 17 GENERAL: AAOX3, appears comfortable in bed HEENT: normocephalic, non icteric NECK: no JVD CARDIAC: s1, s2, no s3, s4 LUNGS: diminished ABDOMEN: Soft, nontender. There is no rebound or guarding. EXTREMITIES: trace edema BLE, sacral wound stage 4 LABORATORY DATA: reviewed RADIOGRAPHIC DATA: 02/11/20 FINDINGS/IMPRESSION: Left subclavian chest port identified in stable position. Right IJ central venous catheter tip again terminating over the SVC. The previously identified opacity within the left upper lobe is no longer visualized and likely represents resolution of atelectasis. There is no evidence for new large focal consolidation, pneumothorax, or significant pleural effusion. The cardiomediastinal silhouette is stable in appearance. No acute osseous abnormalities identified. IMPRESSION: This is a 59 year old female with PMH of vulvar carcinoma s/p surgical resection 2 years ago. The patient has a chronic indwelling zheng that is changed once a month per home health nurse. The patient also has a sacral wound. The patient arrived to the ED with reports of fatigue and fever. The patient lives at home with , daughter, and grand-daughter. 1. Urinary tract infection with an indwelling Zheng and severe sepsis, present on admission. 2. Aspiration pneumonia. 3. Tachycardia. 4. Prior history of pulmonary embolism. 5. History of vulvar cancer. 6. Anemia, unspecified. 7. Moderate protein-calorie malnutrition. 8. Sepsis on admission 9. 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 E. Coli bacteremia and gamma hemolytic strep bacteremia (present on admission) PLAN: 02/13/20: Repeat blood cultures pending. Patient continues on Rocephin and Daptomycin. Afebrile, without leukocytes. We will continue the same for now. Sacral wound with local care, offloading. Supportive care per ICU team. Call with fever. 02/11/20 S/p MBS, no report as of yet. PEG tube planned. CT/CXR reviewed. We will continue the same ABT, follow reqs of GI. Leukocytosis resolved, afebrile. Wound care, supportive care per critical care team. TPN initiated while awaiting PEG tube placement for malnutrition (right IJ). Surgical eval performed, no surgical interventions at this time. 02/10/20 Upper GI study to rule out leakage in the lower esophagus, gastric bypass area. Continues on Merrem and Vancomycin. Leukocytosis resolved, patient is afebrile. Await susceptibilities on culture results. Pain in sacrum. 02/09/20 Leukocytosis persists, but slowly resolving on antibiotic. We will change the patient from Cefepime to Mererm for full coverage. Continue Vancomycin. Monitor kidney function. Await final results of cultures. Local care to wound. Supportive care per ICU team. Repeat labs and chest x-ray. Monitor clinically. DISCUSSED WITH DR. YOUNG
--- NOTE | 2020-02-13 10:14 | Progress Note ---
DATE: 02/13/2020 SUBJECTIVE: The patient seen and examined today. The patient appeared comfortable, very lethargic, and very tired. Had blood transfusion. Hemoglobin improved. PHYSICAL EXAMINATION: GENERAL: Alert, awake, communicative. HEENT: Normocephalic, atraumatic. Sclerae pink. Conjunctivae clear. NECK: Supple. CHEST: Clear to auscultation with decreased breath sounds at bases. ABDOMEN: Soft. EXTREMITIES: No edema. NEEDLE BOARD REPAIRER: Intact. LABS AND IMAGING: Reviewed. ASSESSMENT AND PLAN: 1. The patient with history of multiple medical conditions including symptomatic anemia. 2. Required blood transfusion event. Hemoglobin is 10. 3. Anemia workup shows anemia of chronic disease. The other contributing factors 1. Recommendation. a. Avoid frequent blood draws. b. Monitor CBC. c. Blood transfusion if hemoglobin drops below 7. 2. Sepsis: a. Following ID. b. On antibiotic treatment. c. Clinically doing better. d. Also following Urology for possible cystoscopy and suprapubic catheter placement. e. Vulvar cancer. f. Status post proposed surgery, chemo and radiation. g. Outpatient restaging workup. We will follow the patient. MD GAVIN Banegas/SULMA /[id number]
--- NOTE | 2020-02-13 12:34 | NUR ---
Paige RN with radiology has called to notify that Dr Chu with radiology has recommended that a surgeon place the peg tube that has been requested. Have spoke with H.Prince ROBERTO, he has ordered for Dr Bolden to be notified of the new request.
[2020-02-13] MEDS: DAPTOMYCIN 500mg 10ML 300 MG in SODIUM CHLORIDE 0.9% 100 ML IV SCH (12:40)
--- NOTE | 2020-02-13 12:52 | NUR ---
Clarified PO intake status. Speech therapist Stephy reports pt needs to be kept strict npo and feeding tube to be placed. The mbs performed did not clear the patient for any safe po intake at this time.
[2020-02-13] MEDS: COLLAGENASE 5 GM TUBE TOP SCH (14:42)
--- NOTE | 2020-02-13 15:15 | Progress Note ---
DATE: SUBJECTIVE: The patient was unable to have endoscopically placed PEG tube yesterday because of potential risks to her esophagus. Interventional Radiology also expressed concern and requested possible surgical placement. The patient is afebrile. She has no new complaints. PHYSICAL EXAMINATION: VITAL SIGNS: The blood pressure is 118/76 and the saturation is 98%. The pulse is 82. HEENT: Shows no facial swelling or erythema. CARDIAC: Reveals regular rate and rhythm with normal S1 and S2. LUNGS: Auscultation of lungs reveals decreased breath sounds bilaterally. There is no wheezing. ABDOMEN: Soft and nontender. There is no rebound or guarding. EXTREMITIES: Shows no leg edema or calf tenderness. There is no cyanosis or clubbing. SKIN: Shows no rashes. LABORATORY DATA: White blood cell count is 7.18 and the hemoglobin is 10.3. The platelet count is 221. The BUN to creatinine ratio is normal. Other electrolytes are within normal limits. PT is 20 and the PTT is 48.4. IMPRESSION: 1. [id number] protein-calorie malnutrition. 2. Severe sepsis and bacteremia with vancomycin-resistant Enterococcus and Escherichia coli, present on admission from a urinary source. 3. Pneumomediastinum of unclear etiology. 4. Status post gastric bypass surgery. 5. Anemia, unspecified. 6. Vulvar cancer. 7. Stage IV decubitus ulcer in the perineum. 8. History of pulmonary embolism. PLAN: 1. Continue TPN. 2. Await arrangements for feeding tube. 3. Continue current antibiotics. 4. Continue to monitor BUN and creatinine. 5. Wound care. Sherwin Cardona MD [facility]AMLETL /[id number]
--- NOTE | 2020-02-13 19:31 | Progress Note ---
DATE: 02/13/2020 SUBJECTIVE: The patient is lying supine in bed. States her pain level currently is 5/10 at present. Per her nurse, her pain level has been as high as 8/10 today in the vulvar area. Otherwise, she has no complaints of headache, dizziness, chills, shortness of breath, sore throat, cough, phlegm, palpitations, chest pain, nausea, vomiting, or diarrhea. OBJECTIVE: VITAL SIGNS: Temperature 97.6, heart rate 82, blood pressure 106/55, respirations 20, oxygen saturation 99% on room air. GENERAL: Lying supine on her left side. LUNGS: Clear to auscultation. Respiratory pattern unlabored breathing room air. HEENT: EOMI. NECK: Supple. Right IJ central venous catheter. CARDIOVASCULAR: Regular rate and rhythm. No murmur. She has TPN infusing at 41.7 mL/h. She has a left chest Port-A-Cath. ABDOMEN: Bowel sounds positive. Soft, nontender. She has a Araiza catheter with shahbaz urine. EXTREMITIES: Bilateral foot drop. No signs or symptoms of DVT. NEUROLOGICAL: GCS 15. Nonfocal. DIAGNOSTIC STUDIES: Sodium 135, potassium 3.6, chloride 108, CO2 25, BUN 6, creatinine 0.39, glucose 107, EGFR greater than 60. WBC 7.18, hemoglobin 10.3, hematocrit 31.5, platelets 221, calcium 7.7. Blood cultures x2 collected yesterday with results pending. Total bilirubin 0.9, AST 8, ALT less than 6, alkaline phosphatase 45. Yesterday, hemoglobin 6.2 and hematocrit 20.1, BUN less than 5, creatinine 0.38, sodium 134. Today, albumin 1.5 which is up from 1.4, total protein 5.3, up from 4.7. ASSESSMENT AND PLAN: 1. Status post severe sepsis with shock secondary to Escherichia coli and gamma hemolytic strep bacteremia (all present on arrival). Infectious Disease following Merrem and daptomycin IV continue. WBC 7.18, yesterday 5.7. Awaiting final blood culture and sensitivity results from yesterday. 2. Vancomycin-resistant enterococci urinary tract infection with indwelling Araiza catheter present on arrival. Continue daptomycin and Merrem IV antibiotics per Infectious Disease. 3. Severe protein-calorie malnutrition, TPN continues. GI and surgery following. Gastroenterology, interventional radiology physician and surgery have discussed the case. Currently, the plan is for a Dobhoff tube to be placed today likely by Dr. Bolden and the nurse. Case was discussed with Dr. Bassett, Dr. Bolden and Dr. Hernandez. It would be beneficial if her PEG could be placed surgically by Dr. Bolden, at the same time that her suprapubic catheter is placed by Dr. Henrandez. We will try to coordinate this. This was discussed with the patient and she is in favor. 4. Esophageal tear, history of gastric bypass surgery with possible leak. Gastroenterology following. 5. Anemia, unspecified. Hemoglobin has improved from 6.2 to 10.3 after 2 units of blood yesterday. Hematology following low serum iron and receiving IV iron infusions. 6. Pneumomediastinum of unclear etiology, past medical history PE. Monitor chest x-ray results, Pulmonology/Critical Care Medicine following. 7. Vulvar cancer. Gynecology/oncology following, wound care. Current orders are to pack with SilvaSorb gel and Kerlix, cover with Allevyn foam dressing. 8. Hypomagnesemia. Magnesium level 1.7 yesterday, improving. We will recheck level in the morning. 9. Hypophosphatemia. Phosphorus level 1.6. Replaced with sodium phosphate yesterday. We will recheck level in the morning. 10. Mild hyponatremia. Sodium level 135, up from 134 yesterday. Continue to monitor. 11. Prophylaxis, Pepcid. TIME SPENT: 35 minutes. Dictated by John Turk NP Aron Bassett MD [facility] /[id number]
[2020-02-13] MEDS: CENTRAL TPN FORMULA 1 BAG IV SCH (20:33)
[2020-02-14] VITALS (17 sets, daily range): BP systolic 97–131; BP diastolic 53–72
[2020-02-14] MEDS: HYDROMORPHONE 1MG/1ML INJ IV PRN ×5 (01:35→21:49)
[2020-02-14] MEDS: MEROPENEM 500MG/ NS 50ML 50 ML IV SCH ×3 (05:10→22:58)
[2020-02-14 05:24] LABS: BASOPHILS % 0.6 % (0.0-1.0); EOSINOPHILS # (AUTO) 0.2 (0.0-0.4); EOSINOPHILS % 2.7 % (0.0-6.0); HEMATOCRIT 30.5 % (34.2-44.1); HEMOGLOBIN 9.9 g/dL (12.0-16.0); LYMPHOCYTES # (AUTO) 1.2 (1.0-3.2); LYMPHOCYTES % 19.3 % (18.0-39.1); MEAN CORPUSCULAR HEMOGLOBIN 30.5 pg (28-32); MEAN CORPUSCULAR HGB CONC 32.5 g/dL (31-35); MEAN CORPUSCULAR VOLUME 93.8 fL (81-99); MONOCYTES # (AUTO) 0.7 (0.2-0.8); MONOCYTES % 10.8 % (4.4-11.3); NEUTROPHILS # (AUTO) 3.9 (2.1-6.9); NEUTROPHILS % 62.6 % (38.7-80.0); PLATELET COUNT 208 x10e3/uL (140-360); RED BLOOD COUNT 3.25 x10e6/uL (3.6-5.1); RED CELL DISTRIBUTION WIDTH 16.5 % (11.7-14.4)
[2020-02-14 05:46] LABS: ANION GAP 6.7 mmol/L (8-16); BLOOD UREA NITROGEN 7 mg/dL (7-26); BUN/CREATININE RATIO 20 (6-25); CALCIUM 8.2 mg/dL (8.4-10.2); CARBON DIOXIDE 23 mmol/L (22-29); CHLORIDE 108 mmol/L (98-107); CREATININE, SERUM 0.35 mg/dL (0.57-1.11); EST GLOMERULAR FILTRATION RATE > 60 ML/MIN (60-); GLUCOSE 94 mg/dL (74-118); MAGNESIUM 1.6 MG/DL (1.3-2.1); PHOSPHORUS 2.3 MG/DL (2.3-4.7); POTASSIUM 3.7 mmol/L (3.5-5.1); SODIUM 134 mmol/L (136-145)
[2020-02-14] MEDS: FOLIC ACID 1 MG TAB PO SCH (07:14)
[2020-02-14] MEDS ORDERED: MAGNESIUM SULF 1GRAM/DEXTROSE 100 ML IV ONE ×2 (07:45→09:00)
[2020-02-14] MEDS: SILVER ANTIMICROBIAL WOUND GEL 45ML TOP SCH (08:52)
[2020-02-14] MEDS: COLLAGENASE 5 GM TUBE TOP SCH (08:52)
[2020-02-14] MEDS: FAMOTIDINE 20 MG/2 ML VIAL IV SCH ×2 (08:52→18:09)
[2020-02-14] MEDS: IRON SUCROSE 100 MG in SODIUM CHLORIDE 0.9% 100 ML 100 ML IV SCH (09:11)
[2020-02-14] MEDS: DAPTOMYCIN 500mg 10ML 300 MG in SODIUM CHLORIDE 0.9% 100 ML IV SCH (12:45)
--- NOTE | 2020-02-14 13:00 | NUR ---
ST NOTE: Pt on pain medication and not appropriate for ST intervention. Will check pt status 02/17/20
[2020-02-14] MEDS: ONDANSETRON HCL INJ 2MG/ML 2ML 2 MG/ML VIAL IV PRN (14:14)
--- NOTE | 2020-02-14 14:22 | NUR ---
Nutrition Intervention Note RD Recommendation(s) for Physician: When feeding tube is placed, recommend to wean TPN and initiate TF of Osmolite 1.2 with a goal rate of 60 ml/hr (to provide 1728 kcal and 80 gm protein). Water flushes per MD or 75 ml q 4 hours. -Recommend Abdirizak 1 packet BID to promote wound healing. -Recommend MVI with minerals, vitamin C 500 mg BID, and Zinc Sulfate 220 mg once daily x 10 days to promote wound healing. If feeding tube is unable to be placed, recommend increasing standard TPN to 60 ml/hr (Dextrose 30% 500ml/L, AA10% 500 ml/L), 25 gm lipids/day, Na Acetate 70 mEq/L, KCl 20 mEq/L, K Phos 20 mmol/L, Ca Gluconate 4.6 mEq/L, Mg Sulfate 12 mEq/L, MVI, trace, thiamine, folic acid. (To provide 1200 ml, 216 gm dextrose, 72 gm protein, 1272 kcal- 83% kcal needs, 95% protein needs) -If PO intake is feasible, recommend regular diet with Ensure Enlive TID; diet texture per [employer] recommendation The patient meets criteria for MODERATE protein-calorie malnutrition. Plan of Care: RD following, monitoring for tolerance and adequacy Nutrition reason for involvement: follow up RD Assessment 02/13: Follow up. Pt was discussed during interdisciplinary rounds. Pt is receiving TPN at this time and a dobhoff tube is planned to be placed per RN. Recommend to wean TPN and initiate tube feeding when dobhoff is placed. Pt was not appropriate for [employer] evaluation today per [employer] note. Recommendations provided. Will continue to monitor. 02/11: Follow up. Pt remains NPO, plan for procedure- possible PEG today. TPN initiated by MD, currently on standard formula with standard lytes. Noted low Phos, replaced with Na Phos 10 mmol IVPB this am. TPN rec's provided. [employer] following pt. Chart reviewed. Will continue to follow. 02/09: Follow up and consult. Received MD consult for protein calorie malnutrition, pt previously evaluated and meets criteria for moderate protein calorie malnutrition. Pt remains NPO, per RN plan for MBS today as PEG placement was cancelled- Gastrografin swallow to assess her pneumomediastinum, suspicion of possible anastomotic leak from the gastric bypass. Pt and rec's discussed with RN on unit. TF, diet, supplement, and MVI/mineral rec's placed in chart for MD. TERAN following. Chart reviewed. Will continue to monitor. (02/07) 59 yo F, who is admitted from home for sepsis and aspiration PNA. Levophed has been d/c, per RN. CT chest showed mild aspiration. MBS is ordered for Monday. Visited pt in the room. Pt reported poor PO intake x 1 week at home. Nausea has resolved with Zofran. No vomiting episode noted. Pt has denture that is well fitting. Pt reports losing 80lbs since diagnosed with cancer in 2018. LBM 1 week ago. Pt has signs of moderate muscle and fat loss upon observation. Discussed nutrition care plan with pt. Will continue to monitor and follow. 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 Glu 94, Ca 8.2, Mg 1.6 02/11: Na 134, K 3.6, Cl 110, CO2 23, BUN <5, Cr 0.38, Gluc 96, Ca 7.3, Mg 1.7, Phos 1.6 02/09: Na 135, K 3.2, BUN 6, Cr 0.42, Gluc 86, POC Gluc 64-132 Meds: IV iron, pepcid, meropenem, daptomycin, norepinephrine, zofran, folic acid Ht: 67in Wt: 115 lbs (02/13) 111.56lb (02/07) BMI: 18.1 kg/m2 IBW: 135b +/- 10% Malnutrition Evaluation (02/08/2020) The patient meets criteria for MODERATE protein-calorie malnutrition. Energy intake: <75% of estimated energy requirements for >7 days Weight loss: 1-2% in 1 week (Acute) Fat loss: Moderate - slightly hollow around orbital region Muscle loss: Moderate temporal depression, some protrusion of acromion process Supporting Evidence: Fluid accumulation: unable to evaluate Functional Status: measurably reduced Nutrition Prescription (Diet Order): NPO Estimated Nutritional Needs: 1530 - 1785 calories/day (30-35 kcal/kg CBW) Weight used: 111 lbs 76 - 102g protein/day (1.5-2 g pro/kg CBW) Weight used: 111 lbs Diet Adequacy: Not meeting calorie needs, Not meeting protein needs Tolerance: Tolerance pending Diet Education Needs Assessment: Diet education not indicated. Nutrition Care Level: High Nutrition Diagnosis: Malnutrition related cancer as evidenced by moderate muscle/ fat loss, decreased PO intake for 7 days and risk of aspiration. Goal: Patient will meet 75-100% of estimated needs by follow up Progress: not progressing Interventions: -Composition, rate, route, Multivitamin/mineral supplement therapy, Collaboration with other providers Monitoring/Evaluation: -Total energy intake, Total protein intake, Formula/Solution, Weight change Signed: Nikki Morrisno RD, LD
--- NOTE | 2020-02-14 16:50 | Progress Note ---
DATE: SUBJECTIVE: The patient is afebrile. She was transferred out of the Intensive Care Unit today. She is continue on TPN. PHYSICAL EXAMINATION: VITAL SIGNS: The blood pressure is 122/62 and the saturation is 99%. HEENT: Shows no facial swelling or erythema. CARDIAC: Reveals regular rate and rhythm with normal S1, S2. LUNGS: Auscultation of lungs reveals clear breath sounds bilaterally. There is no wheezing. ABDOMEN: Soft, nontender. There is no rebound or guarding. EXTREMITIES: Show no leg edema or calf tenderness. IMPRESSION: 1. Severe sepsis and bacteremia with vancomycin resistant Enterococcus and history of Escherichia coli from a urinary source, present on admission. 2. Severe protein-calorie malnutrition. 3. Anemia. 4. Vulvar cancer. 5. Stage IV decubitus ulcer in the perineum. PLAN: 1. Continue TPN. 2. Arrangements for feeding tube. 3. Continue to monitor BUN and creatinine. 4. Wound care. Sherwin Cardona MD [facility]/SULMA /[id number]
[2020-02-14] MEDS: ASCORBIC ACID 500 MG TAB PO SCH (17:00)
--- NOTE | 2020-02-14 17:35 | Progress Note ---
DATE: 02/14/2020 SUBJECTIVE: The patient is lying supine in bed. Currently denies any pain. 14-point review of systems negative. It is noted that she has dry skin. States she has tubs of A and D ointment at home. OBJECTIVE: VITAL SIGNS: Temperature 97.5, heart rate 88, blood pressure 109/71, respirations 18, and oxygen saturation 99%. Afebrile. GENERAL: Lying supine on the right side. LUNGS: Clear to auscultation. Nonlabored breathing, room air. HEENT: EOMI. NECK: Supple. Right IJ central venous catheter. CARDIOVASCULAR: Regular rate and rhythm. No murmur. She has a left chest Port-A-Cath. TPN is infusing at 41.7 mL/h into right IJ central line. ABDOMEN: Bowel sounds positive. Soft, nontender. Araiza catheter with shahbaz urine. EXTREMITIES: Bilateral foot drop. No signs of DVT. INTEGUMENTARY: Dry skin throughout. NEUROLOGIC: GCS 15. Nonfocal. DIAGNOSTIC STUDIES: Sodium 134, potassium 3.7, chloride 108, CO2 of 23. BUN 7, creatinine 0.35. Estimated GFR greater than 60, glucose 94, calcium 8.2, phosphorus 2.3, magnesium 1.6. No growth from blood cultures collected on 02/11. ASSESSMENT AND PLAN: 1. Status post severe sepsis with shock, secondary to Escherichia coli and gamma-hemolytic strep bacteremia (all present on arrival). Merrem and daptomycin, continue as per Infectious Disease. WBC 6.21. Awaiting final blood culture and sensitivity results. Remains afebrile. 2. Vancomycin-resistant Enterococcus urinary tract infection with indwelling Araiza catheter (POA). Continue IV antibiotics per ID. 3. Severe protein-calorie malnutrition. GI and Surgery following. TPN continues. Dobhoff tube has not yet been placed. Order was entered by Dr. Bolden for Dobhoff tube to be placed by interventional radiologist. Wound healing medications, multivitamins, vitamin C, zinc sulfate, magnesium oxide, and calcium carbonate have been ordered, which can be started once placement of Dobhoff tube confirmed. It would be beneficial if her PEG could be placed surgically by Dr. Bolden at the same time that her suprapubic catheter is placed by Dr. Hernandez. Hopefully, this can be coordinated. 4. Esophageal tear, history of gastric bypass surgery with possible leak. Gastroenterology following. 5. Anemia, unspecified. Hemoglobin 9.9 after 2 units of blood on 02/11. Hematology following. Serum iron is low and receiving IV iron infusions. 6. Pneumomediastinum of unclear etiology, past medical history, PE. Continue to monitor chest x-ray results. Pulmonology/Critical Care Medicine following. 7. Vulvar cancer. Gynecology/Oncology following, wound care. Continue SilvaSorb gel and Kerlix, cover with Allevyn foam dressing. 8. Mild hypomagnesemia. Magnesium level 1.6, 1 g magnesium sulfate IV today. We will start magnesium oxide once placement of Dobhoff tube is confirmed. 9. Hypophosphatemia, improved. Phosphorus 2.3 (1.6). 10. Mild hyponatremia, sodium 134 (135) monitor. 11. Prophylaxis, Pepcid. TIME SPENT: 35 minutes. Dictated by John Turk NP MD MEREDITH DuckworthP/MODL /[id number]
[2020-02-14] MEDS: MINERAL OIL/PETROLAT/GLYCERI 6OZ BTL TOP SCH ×2 (18:09→21:00)
--- NOTE | 2020-02-14 19:15 | NUR ---
BEDSIDE SHIFT REPORT RECEIVED FROM DAY RN. PT IS ALERT AND ORIENTED X3. 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 PT REMANS NPO. COLOSTOMY DRY AND BAG INTACT.DRESSING TO SACRAL WOUND. PT WANTING TO CALL SISTER. CALL LIGHT WITHIN REACH.
[2020-02-14] MEDS: CENTRAL TPN FORMULA 1 BAG IV SCH (20:42)
[2020-02-15] VITALS (7 sets, daily range): BP systolic 103–156; BP diastolic 62–86
[2020-02-15] MEDS ORDERED: SODIUM CHLORIDE 0.9% 250ML 250 ML ONE (03:34)
[2020-02-15] MEDS: MEROPENEM 500MG/ NS 50ML 50 ML IV SCH ×3 (06:08→21:20)
[2020-02-15] MEDS: HYDROMORPHONE 1MG/1ML INJ IV PRN ×4 (06:30→21:55)
--- NOTE | 2020-02-15 07:02 | NUR ---
Received bedside shift report from off going nurse. Patient is in stable condition. No s/s of distress noted. Call light within reach. Bed in the lowest position.
[2020-02-15] MEDS ORDERED: MULTIVITAMINS 5 ML LIQUID PO SCH (09:00)
[2020-02-15] MEDS: ZINC SULFATE 220 MG CAP PO SCH (09:00)
[2020-02-15] MEDS: ASCORBIC ACID 500 MG TAB PO SCH ×2 (09:00→16:08)
[2020-02-15] MEDS: FOLIC ACID 1 MG TAB PO SCH (09:00)
[2020-02-15] MEDS: MINERAL OIL/PETROLAT/GLYCERI 6OZ BTL TOP SCH ×4 (09:05→21:00)
[2020-02-15] MEDS: FAMOTIDINE 20 MG/2 ML VIAL IV SCH ×2 (09:30→16:24)
[2020-02-15] MEDS: IRON SUCROSE 100 MG in SODIUM CHLORIDE 0.9% 100 ML 100 ML IV SCH (09:30)
--- NOTE | 2020-02-15 10:25 | NUR ---
PER FELISA WHITAKER PATIENT TO CONTINUE SAME ORDER TPN UNTIL FURTHER NOTICE.
[2020-02-15] MEDS: ONDANSETRON HCL INJ 2MG/ML 2ML 2 MG/ML VIAL IV PRN ×2 (11:12→16:24)
--- NOTE | 2020-02-15 11:18 | Progress Note ---
DATE: SUBJECTIVE: The patient seen and examined today. The patient appears comfortable. Clinical condition is stable. Denies any worsening symptoms. PHYSICAL EXAMINATION: GENERAL: Alert, awake, communicative. HEENT: Normocephalic, atraumatic. Sclerae pale. Conjunctivae clear. NECK: Supple. CHEST: Clear to auscultation. CARDIOVASCULAR: Regular rate and rhythm. ABDOMEN: Soft, nontender. EXTREMITIES: No edema. SKIN: Intact. LABORATORY AND IMAGING DATA: Reviewed. ASSESSMENT AND PLAN: 1. The patient with history of multiple medical conditions, currently in the hospital with sepsis secondary to Escherichia coli and gamma-hemolytic Strep bacteremia. The patient is currently on antibiotic treatment, tolerating it very well. Following ID very closely. The patient also has history of worsening anemia, anemia workup was consistent with anemia of chronic disease with some mild iron deficiency, required iron infusion. Current hemoglobin is stable. The patient received blood transfusion today. Clinically, doing okay. Continue current care. 2. History of pulmonary embolism, not a candidate for anticoagulation at current condition, we will continue to hold anticoagulation. 3. Valvular cancer, status post treatment, recommendation outpatient restaging workup. 4. Pneumomediastinum, unclear etiology. Surgery on the case. 5. Bladder radiation induced cystitis. Urology is on the case. We will continue remaining care. We will follow the patient closely. MD GAVIN Banegas/SULMA /[id number]
[2020-02-15] MEDS: COLLAGENASE 5 GM TUBE TOP SCH (12:00)
[2020-02-15] MEDS: SILVER ANTIMICROBIAL WOUND GEL 45ML TOP SCH (12:00)
--- NOTE | 2020-02-15 13:28 | Progress Note ---
DATE: SUBJECTIVE: The patient is still n.p.o. She is receiving TPN. She does not have fever. PHYSICAL EXAMINATION: VITAL SIGNS: Blood pressure is 156/85 and saturation is 99%. HEENT: Shows no facial swelling or erythema. CARDIAC: Reveals regular rate and rhythm with normal S1, S2. LUNGS: Auscultation of lungs shows decreased breath sounds at the bases. There is no wheezing. ABDOMEN: Soft, nontender. There is no rebound or guarding. EXTREMITIES: Show no leg edema or calf tenderness. There is no cyanosis or clubbing. SKIN: Shows no rashes. NEUROLOGICAL: Shows no focal abnormalities. IMPRESSION: 1. Severe sepsis and bacteremia with vancomycin-resistant Enterococcus and Escherichia coli from a urinary source, present on admission. 2. Severe protein-calorie malnutrition. 3. Pneumomediastinum of unclear etiology. 4. Vulvar cancer. 5. Anemia. 6. Stage IV decubitus ulcer on the perineum. PLAN: 1. Continue TPN. 2. Possible surgical feeding tube to be placed early next week. 3. Continue wound care. 4. Complete antibiotics. 5. Case discussed with the patient, family, Internal Medicine, and General Surgery. Sherwin Cardona MD [facility]ULMA /[id number]
[2020-02-15] MEDS: DAPTOMYCIN 500mg 10ML 300 MG in SODIUM CHLORIDE 0.9% 100 ML IV SCH (14:00)
--- NOTE | 2020-02-15 19:25 | NUR ---
Bedside shift report given to oncoming nurse. Patient is resting in bed. No acute distress noted. Call light within reach. Bed in the lowest position.
[2020-02-15] MEDS ORDERED: CENTRAL TPN FORMULA 1 BAG IV SCH (20:00)
--- NOTE | 2020-02-15 22:05 | Progress Note ---
DATE: 02/15/2020 CONSULTING PHYSICIANS: Include; Dr. Jackson, Dr. Sherwin Cardona with Pulmonology, Dr. Sandoval with Gynecology, Dr. Vanessa with Hematology, Dr. Eduardo with Gastroenterology, Dr. Bolden with Surgery and Dr. Hernandez with Urology. SUBJECTIVE: The patient is lying supine in bed with no complaints. Currently denies pain. She is talking with someone on the phone. MEDICATIONS: Reviewed. OBJECTIVE: VITAL SIGNS: Temperature 98.7, heart rate 80, blood pressure 136/62, respirations 18, and oxygen saturation 100%. GENERAL: Supine. LUNGS: Clear to auscultation. Nonlabored breathing. HEENT: EOMI. NECK: Supple. Right IJ central venous catheter. CARDIOVASCULAR: Regular rate and rhythm. No murmur. Left chest Port-A-Cath. TPN is infusing at 42 mL an hour into a right IJ central line. ABDOMEN: Bowel sounds positive. Soft and nontender. Araiza catheter with shahbaz urine/hematuria. EXTREMITIES: Bilateral foot drop. No signs of DVT. INTEGUMENTARY: Dry skin throughout. NEUROLOGIC: GCS 15. Nonfocal. DIAGNOSTIC STUDIES AND LABORATORY DATA: Lab holiday today. IMAGING: No new imaging studies today. ASSESSMENT AND PLAN: 1. Status post severe sepsis with shock, secondary to Escherichia coli and gamma hemolytic strep bacteremia (all present on arrival) Merrem and daptomycin as per ID. Daily CBC for the next few days. Awaiting final blood culture and sensitivity results. Remains afebrile. 2. Vancomycin-resistant Enterococcus urinary tract infection with indwelling Araiza catheter (POA). Continue IV antibiotics per ID. 3. Severe protein-calorie malnutrition. GI and Surgery following. TPN continues. Daily chemistry ordered. Dobhoff tube will likely not be placed by Surgery or Interventional Radiology. Wound healing medications can be started once the PEG is surgically placed by Dr. Bolden, which will hopefully occur at the same time that her cystogram and retrograde with suprapubic catheter is placed by Dr. Hernandez. Hopefully, this can be coordinated for Monday or Monday. 4. Esophageal tear, history of gastric bypass surgery, possible leak. Gastroenterology following. 5. Anemia of chronic disease with mild iron deficiency as per workup by Hematology, required iron infusion. Hemoglobin is stable. Received 2 units of blood on 04/29. 6. Pneumomediastinum of unclear etiology, past medical history of PE. Pulmonology/Critical Care Medicine following. 7. Vulvar cancer. Gynecology/Oncology following. Recommendation for outpatient restaging workup. Continue wound care with SilvaSorb gel and Kerlix, cover with Allevyn foam dressing. 8. Bladder radiation induced cystitis. Urology following. 9. Mild hypomagnesemia. Start magnesium oxide once PEG in place. 10. Hypophosphatemia, improved. Monitor. 11. Mild hyponatremia. Monitor. 12. Prophylaxis. Pepcid. Time spent 35 minutes. Billing code [id number]. Dictated by John Turk, FELISA MD [facility] DuckworthP/SULMA /[id number]
[2020-02-16] VITALS (7 sets, daily range): BP systolic 111–151; BP diastolic 62–95
[2020-02-16] MEDS: HYDROMORPHONE 1MG/1ML INJ IV PRN ×4 (01:50→22:45)
[2020-02-16] MEDS: MEROPENEM 500MG/ NS 50ML 50 ML IV SCH ×3 (06:05→21:05)
[2020-02-16 06:22] LABS: BASOPHILS % 0.7 % (0.0-1.0); EOSINOPHILS # (AUTO) 0.2 (0.0-0.4); EOSINOPHILS % 2.9 % (0.0-6.0); HEMATOCRIT 31.9 % (34.2-44.1); HEMOGLOBIN 10.3 g/dL (12.0-16.0); LYMPHOCYTES % 18.3 % (18.0-39.1); MEAN CORPUSCULAR HEMOGLOBIN 30.8 pg (28-32); MEAN CORPUSCULAR HGB CONC 32.3 g/dL (31-35); MEAN CORPUSCULAR VOLUME 95.5 fL (81-99); MONOCYTES # (AUTO) 0.7 (0.2-0.8); MONOCYTES % 12.7 % (4.4-11.3); NEUTROPHILS # (AUTO) 3.5 (2.1-6.9); NEUTROPHILS % 63.4 % (38.7-80.0); PLATELET COUNT 258 x10e3/uL (140-360); RED BLOOD COUNT 3.34 x10e6/uL (3.6-5.1); RED CELL DISTRIBUTION WIDTH 15.8 % (11.7-14.4)
[2020-02-16 06:44] LABS: MAGNESIUM 1.5 MG/DL (1.3-2.1); PHOSPHORUS 2.8 MG/DL (2.3-4.7)
[2020-02-16 06:53] LABS: ALBUMIN 1.6 g/dL (3.5-5.0); ALBUMIN/GLOBULIN RATIO 0.4 (0.8-2.0); ALKALINE PHOSPHATASE 47 IU/L (40-150); ANION GAP 8.6 mmol/L (8-16); BLOOD UREA NITROGEN 8 mg/dL (7-26); BUN/CREATININE RATIO 22 (6-25); CALCIUM 8.7 mg/dL (8.4-10.2); CARBON DIOXIDE 26 mmol/L (22-29); CHLORIDE 106 mmol/L (98-107); CREATININE, SERUM 0.37 mg/dL (0.57-1.11); EST GLOMERULAR FILTRATION RATE > 60 ML/MIN (60-); GLUCOSE 103 mg/dL (74-118); POTASSIUM 3.6 mmol/L (3.5-5.1); SODIUM 137 mmol/L (136-145)
[2020-02-16 06:57] LABS: ALANINE AMINOTRANSFERASE < 6 IU/L (0-55)
--- NOTE | 2020-02-16 07:05 | NUR ---
Patient condition throughout the night was stable, patient endorsed to next shift for continuity of care.
--- NOTE | 2020-02-16 07:19 | NUR ---
PATIENT IN BED RESTING WITH NO S/S OF DISTRESS. MASSEY CATHETER IN PLACE WITH ORANGE URINE, MID COLOSTOMY IN PLACE, AND TPN NUTRITION IN PROGRESS. BED IN LOWER POSITION, CALL LIGHT AT REACH.
[2020-02-16] MEDS ORDERED: MAGNESIUM SULFATE 2GM/50ML 50 ML IV ONE (07:30)
[2020-02-16] MEDS: IRON SUCROSE 100 MG in SODIUM CHLORIDE 0.9% 100 ML 100 ML IV SCH (08:42)
[2020-02-16] MEDS: ZINC SULFATE 220 MG CAP PO SCH (09:00)
[2020-02-16] MEDS: ASCORBIC ACID 500 MG TAB PO SCH ×2 (09:00→17:00)
[2020-02-16] MEDS: FOLIC ACID 1 MG TAB PO SCH (09:00)
[2020-02-16] MEDS: FAMOTIDINE 20 MG/2 ML VIAL IV SCH ×2 (09:02→17:12)
[2020-02-16] MEDS: ONDANSETRON HCL INJ 2MG/ML 2ML 2 MG/ML VIAL IV PRN ×3 (11:20→22:45)
[2020-02-16] MEDS: COLLAGENASE 5 GM TUBE TOP SCH (11:32)
[2020-02-16] MEDS: SILVER ANTIMICROBIAL WOUND GEL 45ML TOP SCH (11:32)
[2020-02-16] MEDS: MINERAL OIL/PETROLAT/GLYCERI 6OZ BTL TOP SCH ×4 (11:32→21:00)
--- NOTE | 2020-02-16 11:50 | NUR ---
DRESSING CHANGED TO SACRUM ORDERED. PATIENT REPOSITIONED IN BED, CALL LIGHT AT REACH.
[2020-02-16] MEDS: DAPTOMYCIN 500mg 10ML 300 MG in SODIUM CHLORIDE 0.9% 100 ML IV SCH (13:00)
--- NOTE | 2020-02-16 16:56 | NUR ---
TPN NUTRITION IN PROGRESS. PATIENT REPOSITIONED IN BED. CALL LIGHT AT REACH.
--- NOTE | 2020-02-16 19:43 | Progress Note ---
DATE: 02/16/2020 SUBJECTIVE: The patient is lying supine in bed. States her pain level is 6/10 on a scale of 0-10, mostly at her sacral wound. Otherwise, no complaints. MEDICATIONS: Reviewed. OBJECTIVE: VITAL SIGNS: Temperature 97.6, heart rate 73, blood pressure 151/78, respirations 18, and oxygen saturation 99% on room air. GENERAL: In no acute distress. LUNGS: Clear to auscultation, nonlabored breathing. HEENT: EOMI. NECK: Supple. Right IJ central venous catheter. CARDIOVASCULAR: Regular rate and rhythm. No murmur. Left chest Port-A-Cath, TPN is infusing at 42 mL an hour into a right IJ central line. ABDOMEN: Bowel sounds positive. Soft, nontender. Araiza catheter with shahbaz urine/hematuria. EXTREMITIES: Bilateral foot drop. No clubbing, cyanosis, or marked swelling. No signs of DVT. INTEGUMENTARY: Dry skin throughout. NEUROLOGIC: GCS 15. Nonfocal. LABORATORY DATA: Sodium 137, potassium 3.6, chloride 106, CO2 of 26, BUN 8, creatinine 0.37, estimated GFR greater than 60, glucose 103, fingerstick blood glucose levels 102 and 97, calcium 8.7, phosphorus 2.8, and magnesium 1.5. Total bilirubin 0.2, AST 12, ALT less than 6, alkaline phosphatase 47, total protein 5.6, and albumin 1.6. WBCs 5.53, hemoglobin 10.3, hematocrit 31.9, and platelets 258. IMAGING DATA: No new imaging studies. ASSESSMENT AND PLAN: 1. Status post severe sepsis with shock, secondary to Escherichia coli and gamma-hemolytic strep bacteremia (all present on arrival). IV Merrem and daptomycin as per ID. Continue daily labs with CBC and CMP. Awaiting final blood culture and sensitivity results. Remains afebrile. We will DC norepinephrine from DEC. 2. Vancomycin-resistant Enterococcus urinary tract infection with indwelling Araiza catheter (POA). Continue IV Merrem and daptomycin as per ID. 3. Severe protein-calorie malnutrition. GI and Surgery following, TPN renewed, continued daily CMP. Dobhoff tube will likely not be placed by Surgery or Interventional Radiology due to esophageal tear. Oral wound healing medications can be started once the PEG is surgically placed by Dr. Bolden, which will hopefully occur at the same time that her cystogram and retrograde with suprapubic catheters placed by Dr. Hernandez. Currently, plan is for either Monday or Monday. 4. Esophageal tear, history of gastric bypass surgery, possible leak. Gastroenterology following. 5. Anemia of chronic disease with mild iron deficiency as per workup by Hematology, required iron infusion. Hemoglobin stable. She received 2 units of blood on 02/11. 6. Pneumomediastinum of unclear etiology, past medical history of PE. Pulmonology/Critical Care Medicine following. 7. Vulvar cancer. Gynecology/oncology following. Recommendation for outpatient restaging workup. Continue wound care with SilvaSorb gel and Kerlix, cover with Allevyn foam dressing. 8. Bladder radiation induced cystitis. Urology following. 9. Mild hypomagnesemia. Magnesium level 1.5 (1.6). Magnesium sulfate 2 g IV today. 10. Prophylaxis. Pepcid. Time spent 35 minutes. Billing code [id number]. Dictated by John Turk NP MD [facility]ED[facility] DuckworthP/MODL /[id number]
[2020-02-16] MEDS ORDERED: CENTRAL TPN FORMULA 1 BAG IV SCH (20:00)
--- NOTE | 2020-02-16 20:18 | Progress Note ---
DATE: SUBJECTIVE: The patient is still receiving TPN. It was renewed today. Although, she is awaiting a feeding tube. PHYSICAL EXAMINATION: VITAL SIGNS: The patient is afebrile. The vital signs are stable. HEENT: Shows no facial swelling or erythema. CARDIAC: Reveals regular rate and rhythm with normal S1, S2. LUNGS: Auscultation of lungs reveals clear breath sounds bilaterally. No wheezing. ABDOMEN: Soft, nontender. There is no rebound or guarding. LABORATORY DATA: White blood cell count 5.5 and hemoglobin is 10.3. The platelet count is 258,000. BUN to creatinine ratio is normal. Other electrolytes are within normal limits. The albumin is 1.6. IMPRESSION: 1. Vancomycin-resistant Enterococcus and the Escherichia coli bacteremia secondary to a urinary source, present on admission. 2. Severe protein-calorie malnutrition. 3. Pneumomediastinum. 4. Anemia, unspecified. 5. Vulvar cancer. 6. Hyponatremia. PLAN: 1. Continue antibiotics. 2. The patient is scheduled for a feeding tube to be placed surgically tomorrow or Monday. 3. Continue TPN. 4. Continue to monitor blood count and electrolytes. Sherwin Cardona MD [facility]/MODL /[id number]
--- NOTE | 2020-02-16 20:41 | NUR ---
report given to oncoming nurse, patient resting in bed, no complaints voiced. call light remain in reach.
--- NOTE | 2020-02-16 20:45 | NUR ---
Patient received awake, alert, lying quietly in bed. tpn infusing without difficulty. vss. no c/o pain noted. patient repositioned for comfort. pm assessment complete. patient instructed to call for assistance when needed.
--- NOTE | 2020-02-16 22:45 | NUR ---
Patient medicated with dilaudid 0.5mg and zofran 4mg ivp for c/o sacral pain 04/24. patient repositioned for comfort.
[2020-02-17] VITALS (8 sets, daily range): BP systolic 113–134; BP diastolic 53–71
[2020-02-17] MEDS: ONDANSETRON HCL INJ 2MG/ML 2ML 2 MG/ML VIAL IV PRN ×3 (03:10→22:17)
[2020-02-17] MEDS: HYDROMORPHONE 1MG/1ML INJ IV PRN ×3 (03:10→22:17)
--- NOTE | 2020-02-17 03:10 | NUR ---
patient medicated with dilaudid 0.5mg and zofran 4mg ivp for c/o sacral pain 04/24 at this time. patient repositioned for comfort.
[2020-02-17] MEDS: MEROPENEM 500MG/ NS 50ML 50 ML IV SCH ×3 (05:31→22:15)
[2020-02-17 06:24] LABS: BASOPHILS # (AUTO) 0.1 (0.0-0.1); BASOPHILS % 0.9 % (0.0-1.0); EOSINOPHILS # (AUTO) 0.1 (0.0-0.4); EOSINOPHILS % 1.9 % (0.0-6.0); HEMATOCRIT 34.3 % (34.2-44.1); HEMOGLOBIN 10.7 g/dL (12.0-16.0); LYMPHOCYTES # (AUTO) 1.1 (1.0-3.2); LYMPHOCYTES % 16.7 % (18.0-39.1); MEAN CORPUSCULAR HEMOGLOBIN 30.5 pg (28-32); MEAN CORPUSCULAR HGB CONC 31.2 g/dL (31-35); MEAN CORPUSCULAR VOLUME 97.7 fL (81-99); MONOCYTES # (AUTO) 0.8 (0.2-0.8); MONOCYTES % 12.2 % (4.4-11.3); NEUTROPHILS # (AUTO) 4.5 (2.1-6.9); PLATELET COUNT 267 x10e3/uL (140-360); RED BLOOD COUNT 3.51 x10e6/uL (3.6-5.1); RED CELL DISTRIBUTION WIDTH 15.8 % (11.7-14.4)
[2020-02-17 06:53] LABS: ALANINE AMINOTRANSFERASE 6 IU/L (0-55); ALBUMIN 1.7 g/dL (3.5-5.0); ALBUMIN/GLOBULIN RATIO 0.4 (0.8-2.0); ALKALINE PHOSPHATASE 54 IU/L (40-150); ANION GAP 7.6 mmol/L (8-16); BLOOD UREA NITROGEN 10 mg/dL (7-26); BUN/CREATININE RATIO 26 (6-25); CALCIUM 8.6 mg/dL (8.4-10.2); CARBON DIOXIDE 25 mmol/L (22-29); CHLORIDE 107 mmol/L (98-107); CREATININE, SERUM 0.39 mg/dL (0.57-1.11); EST GLOMERULAR FILTRATION RATE > 60 ML/MIN (60-); GLUCOSE 94 mg/dL (74-118); POTASSIUM 3.6 mmol/L (3.5-5.1); SODIUM 136 mmol/L (136-145)
[2020-02-17 07:14] LABS: MAGNESIUM 1.7 MG/DL (1.3-2.1); PHOSPHORUS 2.8 MG/DL (2.3-4.7)
--- NOTE | 2020-02-17 07:35 | NUR ---
PATIENT IN BED RESTING WITH NO S/S OF DISTRESS. TPN IN PROGRESS. BED IN LOWER POSITION, CALL LIGHT AT REACH.
[2020-02-17] MEDS: IRON SUCROSE 100 MG in SODIUM CHLORIDE 0.9% 100 ML 100 ML IV SCH (08:11)
[2020-02-17] MEDS: ASCORBIC ACID 500 MG TAB PO SCH ×2 (09:00→17:00)
[2020-02-17] MEDS: MINERAL OIL/PETROLAT/GLYCERI 6OZ BTL TOP SCH ×4 (09:00→22:15)
[2020-02-17] MEDS: ZINC SULFATE 220 MG CAP PO SCH (09:00)
[2020-02-17] MEDS: FOLIC ACID 1 MG TAB PO SCH (09:00)
[2020-02-17] MEDS: FAMOTIDINE 20 MG/2 ML VIAL IV SCH ×2 (09:00→17:20)
[2020-02-17] MEDS: SILVER ANTIMICROBIAL WOUND GEL 45ML TOP SCH (09:00)
--- NOTE | 2020-02-17 09:29 | Progress Note ---
DATE: SUBJECTIVE: The patient is seen and examined. The patient appears comfortable. Currently on TPN. Clinical condition is stable. OBJECTIVE: GENERAL: Alert, awake. HEENT: Normocephalic, atraumatic. Sclerae pale. Conjunctivae clear. NECK: Supple. CHEST: Decreased breath sounds in the bases. ABDOMEN: Soft, nontender. EXTREMITIES: No edema. SKIN: Grossly intact. LABS AND IMAGING: Reviewed. ASSESSMENT AND PLAN: 1. The patient with history of multiple medical conditions that includes sepsis secondary to vancomycin-resistant enterobacter and Escherichia coli bacteremia. She also has worsening anemia, history of valvular cancer, pneumomediastinum. 2. Anemia. a. Hemoglobin is staying in the stable range. b. The patient required blood transfusion. c. Anemia workup shows anemia of chronic disease. d. Recommendation. I. Close observation. II. Avoid frequent blood draws. III. We will monitor CBC closely. 3. Vulvar cancer. a. The patient received chemoradiation and surgery in the past. b. Recommendation for outpatient restaging workup. 4. Pneumomediastinum. a. Following Surgery. b. Continue current care. 5. Sepsis. a. On antibiotic. b. Following ID. c. We will follow. MD GAVIN Banegas/SULMA /[id number]
[2020-02-17] MEDS ORDERED: COLLAGENASE OINTMENT 30 GM TUBE TOP SCH (10:00)
--- NOTE | 2020-02-17 10:18 | NUR ---
ST NOTE: Pt on pain medication and not appropriate for ST intervention. Pt awaiting peg placement. Will check pt status 02/18/20
--- NOTE | 2020-02-17 12:00 | Progress Note ---
DATE: SUBJECTIVE: The patient is seen and evaluated. Available labs and notes reviewed and discussed with the nurse. Discussed with Dr. Jackson. REVIEW OF SYSTEMS: No nausea, vomiting, fever, chills, chest pain, shortness of breath, rash, headache, or dysuria. PHYSICAL EXAMINATION: VITAL SIGNS: Temperature 98.1, pulse is 69, respirations 16, and blood pressure 134/61. GENERAL: Alert and oriented, no acute distress. CV: S1 and S2. CHEST: Equal expansion. Clear to auscultation. No acute distress. HEENT: Moist. No pallor. No JVD. EXTREMITIES: Weak. MEDICATIONS: Medication list reviewed and as far as Infectious Disease point of view, the patient is on Merrem and daptomycin. LABORATORY STUDIES: White count of 6.72, hemoglobin 10.7, and platelet 267. Sodium 136, potassium 3.6, and creatinine 0.39. MICROBIOLOGY: Recheck blood cultures negative. Previous blood culture showing E. coli and strep, species gamma-hemolytic and Enterococcus. Also, previous urine culture showed VRE and E. coli. IMAGING: No new radiology studies available. ASSESSMENT AND PLAN: 1. Sepsis, on admission. 2. Bacteremia. 3. Urinary tract infection. 4. Protein-calorie malnutrition, the patient on TPN. 5. Esophageal tear? 6. Anemia. 7. Debility. 8. History of vulvar cancer. 9. Continue with IV antibiotics as mentioned above, PICC line. Plan to get a suprapubic and feeding tube placed hopefully at the same time. Continue to monitor the patient clinically. Follow with the labs. 10. PT/OT. 11. Please refer to chart for more information. Dictated by Rafael Hanson PA-C (Al) Damon Jackson MD /MODL /[id number]
[2020-02-17] MEDS: DAPTOMYCIN 500mg 10ML 300 MG in SODIUM CHLORIDE 0.9% 100 ML IV SCH (12:35)
--- NOTE | 2020-02-17 14:52 | NUR ---
Nutrition Intervention Note RD Recommendation(s) for Physician: -Recommend increasing standard TPN to 60 ml/hr (Dextrose 30% 500ml/L, AA10% 500 ml/L), 25 gm lipids/day, standard lytes, MVI, trace, thiamine, folic acid. (To provide 1200 ml, 216 gm dextrose, 72 gm protein, 1272 kcal- 83% kcal needs, 95% protein needs) -When PEG placed and able to use, recommend of Osmolite 1.2 at 10 ml/hr. Slowly advance to goal rate of 60 ml/hr (to provide 1728 kcal and 80 gm protein). Water flushes per MD or 75 ml q 4 hours. -Once pt tolerating TF at 35 ml/hr, recommend tapering and discontinuing TPN. -Recommend Abdirizak 1 packet BID to promote wound healing. -Continue vitamin C and zinc sulfate to promote wound healing. -If PO intake is feasible, recommend regular diet with Ensure Enlive TID; diet texture per CLIENT RELATIONS ASSOCIATE recommendation The patient meets criteria for MODERATE protein-calorie malnutrition. Plan of Care: RD following, monitoring for tolerance and adequacy Nutrition reason for involvement: follow up RD Assessment 02/16: Follow up. Pt continues on TPN, currently at 41.6 ml/hr and remains NPO, no DHT currently and PEG placement remains pending. TPN rec's placed in chart for MD or JACE. Pt started on vitamin C and zinc sulfate to aid in wound healing. CLIENT RELATIONS ASSOCIATE following, not appropriate to be seen today per CLIENT RELATIONS ASSOCIATE notes. Will continue to monitor. 02/13: Follow up. Pt was discussed during interdisciplinary rounds. Pt is receiving TPN at this time and a dobhoff tube is planned to be placed per RN. Recommend to wean TPN and initiate tube feeding when dobhoff is placed. Pt was not appropriate for CLIENT RELATIONS ASSOCIATE evaluation today per CLIENT RELATIONS ASSOCIATE note. Recommendations provided. Will continue to monitor. 02/11: Follow up. Pt remains NPO, plan for procedure- possible PEG today. TPN initiated by MD, currently on standard formula with standard lytes. Noted low Phos, replaced with Na Phos 10 mmol IVPB this am. TPN rec's provided. CLIENT RELATIONS ASSOCIATE following pt. Chart reviewed. Will continue to follow. 02/09: Follow up and consult. Received MD consult for protein calorie malnutrition, pt previously evaluated and meets criteria for moderate protein calorie malnutrition. Pt remains NPO, per RN plan for MBS today as PEG placement was cancelled- Gastrografin swallow to assess her pneumomediastinum, suspicion of possible anastomotic leak from the gastric bypass. Pt and rec's discussed with RN on unit. TF, diet, supplement, and MVI/mineral rec's placed in chart for MD. CLIENT RELATIONS ASSOCIATE following. Chart reviewed. Will continue to monitor. (02/07) 59 yo F, who is admitted from home for sepsis and aspiration PNA. Levophed has been d/c, per RN. CT chest showed mild aspiration. MBS is ordered for Monday. Visited pt in the room. Pt reported poor PO intake x 1 week at home. Nausea has resolved with Zofran. No vomiting episode noted. Pt has denture that is well fitting. Pt reports losing 80lbs since diagnosed with cancer in 2018. LBM 1 week ago. Pt has signs of moderate muscle and fat loss upon observation. Discussed nutrition care plan with pt. Will continue to monitor and follow. 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 Glu 94, Ca 8.2, Mg 1.6 02/11: Na 134, K 3.6, Cl 110, CO2 23, BUN <5, Cr 0.38, Gluc 96, Ca 7.3, Mg 1.7, Phos 1.6 02/09: Na 135, K 3.2, BUN 6, Cr 0.42, Gluc 86, POC Gluc 64-132 Meds: IV iron, pepcid, abx, dilaudid, zofran, vitamin C, zinc sulfate, folic acid Ht: 67in Wt: 115 lbs (02/13) 111.56lb (02/07) BMI: 18.1 kg/m2 IBW: 135b +/- 10% Malnutrition Evaluation (02/08/2020) The patient meets criteria for MODERATE protein-calorie malnutrition. Energy intake: <75% of estimated energy requirements for >7 days Weight loss: 1-2% in 1 week (Acute) Fat loss: Moderate - slightly hollow around orbital region Muscle loss: Moderate temporal depression, some protrusion of acromion process Supporting Evidence: Fluid accumulation: unable to evaluate Functional Status: measurably reduced Nutrition Prescription (Diet Order): NPO on TPN TPN at 41.6 ml/hr, standard formula (Dextrose 30%, AA 10%), lipids 25 gm MWF, standard lytes, MVI, trace, thiamine, folic acid. (provides 150 gm dextrose, 50 gm protein, 817 kcal) Estimated Nutritional Needs: 1530 - 1785 calories/day (30-35 kcal/kg CBW) Weight used: 111 lbs 76 - 102g protein/day (1.5-2 g pro/kg CBW) Weight used: 111 lbs Diet Adequacy: Not meeting calorie needs, Not meeting protein needs Tolerance: Tolerance pending, tolerating TPN Diet Education Needs Assessment: Diet education not indicated. Nutrition Care Level: High Nutrition Diagnosis: Malnutrition related cancer as evidenced by moderate muscle/ fat loss, decreased PO intake for 7 days and risk of aspiration. Goal: Patient will meet 75-100% of estimated needs by follow up Progress: not progressing Interventions: -Composition, rate, route, Multivitamin/mineral supplement therapy, Collaboration with other providers Monitoring/Evaluation: -Total energy intake, Total protein intake, Formula/Solution, Weight change Signed: Carrie Welsh RD, LD, [facility]
--- NOTE | 2020-02-17 15:43 | NUR ---
URINE SPECIMEN COLLECTED AND SENT TO THE LAB. PATIENT REPOSITIONED IN BED. CALL LIGHT AT REACH.
--- NOTE | 2020-02-17 15:46 | Progress Note ---
DATE: 02/17/2020 SUBJECTIVE: Pain level at the buttocks and sacrum, currently 5/10 on a 0 to 10 pain scale. Otherwise, she has no complaints. MEDICATIONS: Reviewed. OBJECTIVE: VITAL SIGNS: Temperature 98.1, T-max 98.6, heart rate 69, blood pressure 134/61, respirations 16, oxygen saturation 100% on room air. GENERAL: Supine, in no acute distress. LUNGS: Clear to auscultation. RESPIRATORY: Pattern even and nonlabored. HEENT: EOMI. NECK: Supple. Right IJ central venous catheter. CARDIOVASCULAR: Regular rate and rhythm. No murmur. Left chest Port-A-Cath. TPN infusing at 42 mL an hour into a right IJ central line. ABDOMEN: Bowel sounds positive. Soft, nontender. Araiza catheter with shahbaz urine. EXTREMITIES: Bilateral footdrop. No clubbing, cyanosis, or marked swelling. No signs of DVT. INTEGUMENTARY: Dry skin throughout. NEUROLOGIC: GCS 15, nonfocal. LABORATORY DATA: WBC 6.72, hemoglobin 10.7, hematocrit 34.3, platelets 267. Sodium 136, potassium 3.6, chloride 107, CO2 of 25, BUN 10, creatinine 0.39, EGFR greater than 60, glucose 94, calcium 8.6, phosphorus 2.8, magnesium 1.7, total bilirubin 0.2. AST 18, ALT 6, alkaline phosphatase 54, total protein 5.8, albumin 1.7 and trending out. Preliminary results of 2 blood cultures collected on 02/11 have shown no growth after 72 hours. IMAGING: No new imaging studies. ASSESSMENT AND PLAN: 1. Status post severe sepsis with shock, secondary to Escherichia coli and gamma-hemolytic strep bacteremia (POA). IV Merrem and daptomycin as per ID. Continue daily labs with CBC and CMP. Awaiting final blood culture and sensitivity results. WBC 6.72, afebrile. 2. Vancomycin-resistant Enterococcus urinary tract infection with indwelling Araiza catheter (POA). Continue IV Merrem and daptomycin as per ID. 3. Severe protein-calorie malnutrition. GI and Surgery are following, TPN renewed. Continue daily CMP. Dobhoff tube was not placed by Surgery or Interventional Radiology due to esophageal tear. Oral wound healing medications can be started via PEG once the PEG is surgically placed by Dr. Bolden, which will hopefully occur at the same time that her cystogram and retrograde with suprapubic catheter placement by Dr. Hernandez occurs. This will likely occur between Monday and Monday. 4. Esophageal tear, history of gastric bypass surgery, possible leak. Gastroenterology following. 5. Anemia of chronic disease with mild iron-deficiency as per workup by Hematology. The patient required Venofer, iron sucrose infusion. Hemoglobin 10.7 and stable. She received 2 units of blood on 02/11. 6. Pneumomediastinum of unclear etiology, PMH of pulmonary embolism. Pulmonology/Critical Care Medicine following. 7. Vulvar cancer. Gynecology/Oncology following. Pain control with Dilaudid, which is frequently given with Zofran to avoid nausea. Recommendation for outpatient restaging workup. Continue wound care with SilvaSorb gel and Kerlix, cover with Allevyn foam dressing. 8. Bladder radiation-induced cystitis. Urology following. 9. Mild hypomagnesemia. Magnesium level 1.7 (1.5, 1.6). No magnesium replacement today. Monitor level. 10. Prophylaxis. Pepcid. Time spent 35 minutes. Billing code [id number]. Dictated by John Turk NP MD LUZ Duckworth/HAMLETL /[id number]
[2020-02-17] MEDS: CENTRAL TPN FORMULA 1 BAG IV SCH (21:57)
[2020-02-18] VITALS (8 sets, daily range): BP systolic 106–123; BP diastolic 55–68
[2020-02-18] MEDS: MEROPENEM 500MG/ NS 50ML 50 ML IV SCH ×3 (07:00→21:53)
[2020-02-18] MEDS: IRON SUCROSE 100 MG in SODIUM CHLORIDE 0.9% 100 ML 100 ML IV SCH (08:23)
[2020-02-18] MEDS: FAMOTIDINE 20 MG/2 ML VIAL IV SCH ×2 (08:23→17:20)
[2020-02-18] MEDS: MINERAL OIL/PETROLAT/GLYCERI 6OZ BTL TOP SCH ×4 (08:23→21:53)
[2020-02-18] MEDS: FOLIC ACID 1 MG TAB PO SCH (09:00)
[2020-02-18] MEDS: ZINC SULFATE 220 MG CAP PO SCH (09:00)
[2020-02-18] MEDS: ASCORBIC ACID 500 MG TAB PO SCH ×2 (09:00→16:52)
--- NOTE | 2020-02-18 09:19 | Progress Note ---
DATE: 02/18/2020 SUBJECTIVE: The patient is seen and examined today. She is still complaining of back, lethargy, and tiredness. OBJECTIVE: GENERAL: Alert, awake, communicative. HEENT: Normocephalic, atraumatic. Sclerae pink. Conjunctivae clear. NECK: Supple. CHEST: Clear to auscultation, decreased breath sounds in the bases. ABDOMEN: Soft, nontender. EXTREMITIES: Bilateral foot drops. SKIN: Decubital ulcer. CUT IN WORKER: Intact. LABORATORY DATA: Reviewed. Hemoglobin was 10.7 yesterday. ASSESSMENT AND PLAN: 1. The patient with a history of multiple medical conditions, currently in hospital with severe sepsis and septic shock. Following ID on antibiotic, doing better. 2. Worsening anemia. Workup shows anemia of chronic disease, required iron infusions, received blood transfusion. Hemoglobin stable. Recommendation for close observation. 3. Vulvar cancer, status post chemoradiation, requiring pain medication. Restaging workup as an outpatient. 4. Radiation-induced cystitis, following urologist. 5. Severe protein-calorie malnutrition. GI and Surgery on the case. TPN. Continue remaining care. We will follow. MD GAVIN Banegas/SULMA /[id number]
--- NOTE | 2020-02-18 09:45 | NUR ---
blood was drawn from right IJ for cbc and bmp and was taken to lab by BRUNILDA
[2020-02-18 10:09] LABS: BASOPHILS # (AUTO) 0.1 (0.0-0.1); BASOPHILS % 0.6 % (0.0-1.0); EOSINOPHILS # (AUTO) 0.2 (0.0-0.4); EOSINOPHILS % 2.1 % (0.0-6.0); HEMATOCRIT 29.8 % (34.2-44.1); HEMOGLOBIN 9.6 g/dL (12.0-16.0); LYMPHOCYTES # (AUTO) 1.4 (1.0-3.2); LYMPHOCYTES % 17.1 % (18.0-39.1); MEAN CORPUSCULAR HEMOGLOBIN 31.2 pg (28-32); MEAN CORPUSCULAR HGB CONC 32.2 g/dL (31-35); MEAN CORPUSCULAR VOLUME 96.8 fL (81-99); MONOCYTES # (AUTO) 0.8 (0.2-0.8); MONOCYTES % 9.7 % (4.4-11.3); NEUTROPHILS # (AUTO) 5.6 (2.1-6.9); NEUTROPHILS % 69.4 % (38.7-80.0); PLATELET COUNT 284 x10e3/uL (140-360); RED BLOOD COUNT 3.08 x10e6/uL (3.6-5.1); RED CELL DISTRIBUTION WIDTH 15.7 % (11.7-14.4)
[2020-02-18 10:38] LABS: ALANINE AMINOTRANSFERASE 8 IU/L (0-55); ALBUMIN 1.7 g/dL (3.5-5.0); ALBUMIN/GLOBULIN RATIO 0.4 (0.8-2.0); ALKALINE PHOSPHATASE 62 IU/L (40-150); ANION GAP 7.7 mmol/L (8-16); BLOOD UREA NITROGEN 10 mg/dL (7-26); BUN/CREATININE RATIO 27 (6-25); CALCIUM 8.8 mg/dL (8.4-10.2); CARBON DIOXIDE 27 mmol/L (22-29); CHLORIDE 105 mmol/L (98-107); CREATININE, SERUM 0.37 mg/dL (0.57-1.11); EST GLOMERULAR FILTRATION RATE > 60 ML/MIN (60-); GLUCOSE 76 mg/dL (74-118); MAGNESIUM 1.5 MG/DL (1.3-2.1); PHOSPHORUS 2.5 MG/DL (2.3-4.7); POTASSIUM 3.7 mmol/L (3.5-5.1); SODIUM 136 mmol/L (136-145)
[2020-02-18] MEDS ORDERED: PHYTONADIONE 1 MG/0.5 ML AMP IM ONE (11:10)
--- NOTE | 2020-02-18 11:58 | NUR ---
spoke with blood bank about FFP, they will be delivered for 1600 today 02/18/20
--- NOTE | 2020-02-18 11:59 | Progress Note ---
DATE: SUBJECTIVE: The patient is seen and evaluated. Discussed with staff. No new complaints. The patient remains on TPN. No nausea, vomiting, fever, chills, chest pain, or shortness of breath. PHYSICAL EXAMINATION: VITAL SIGNS: Temperature 98.7, pulse is 80, respirations 20, and blood pressure 119/61. GENERAL: Alert and oriented, no acute distress. CV: S1 and S2. CHEST: Equal expansion. Clear to auscultation. No acute distress. ABDOMEN: Soft and nontender. No distention with ostomy bag. HEENT: Moist. No pallor. No JVD. EXTREMITIES: Weak. The patient with a Araiza catheter and a central line. MEDICATIONS: Medication list reviewed and as far as Infectious Disease point of view, the patient is on meropenem and Cubicin. LABORATORY STUDIES: White count 8.05, hemoglobin 9.6, and platelet 284 with BMP pending. LFT pending recheck. MICROBIOLOGY: Recheck blood culture and urine culture both negative. On 02/11, blood culture negative and 02/16, urine culture is negative. ASSESSMENT AND PLAN: 1. Sepsis, on admission. 2. Bacteremia. 3. Urinary tract infection. 4. Protein-calorie malnutrition, remains on TPN. 5. Anemia. 6. Debility. 7. Dysphagia. 8. History of vulvar cancer. 9. Continue with IV antibiotics at this point and continue to monitor. The patient is currently comfortable in bed, in no acute distress. Pending suprapubic catheterization and feeding tube placement. Continue with PT/OT. Continue to monitor the patient clinically. Follow with the labs. Please refer to chart for more information. Discussed with Dr. Jackson in details. Dictated by Rafael Hanson PA-C (Al) Damon Jackson MD /MODL /[id number]
[2020-02-18] MEDS: DAPTOMYCIN 500mg 10ML 300 MG in SODIUM CHLORIDE 0.9% 100 ML IV SCH (12:00)
[2020-02-18] MEDS: SILVER ANTIMICROBIAL WOUND GEL 45ML TOP SCH (15:44)
[2020-02-18] MEDS: COLLAGENASE 5 GM TUBE TOP SCH (15:44)
[2020-02-18] MEDS: HYDROMORPHONE 1MG/1ML INJ IV PRN ×2 (16:00→21:54)
[2020-02-18] MEDS: ONDANSETRON HCL INJ 2MG/ML 2ML 2 MG/ML VIAL IV PRN ×2 (16:00→21:54)
[2020-02-18] MEDS: CENTRAL TPN FORMULA 1 BAG IV SCH (21:53)
[2020-02-18] MEDS ORDERED: SODIUM CHLORIDE 0.9% 250ML 250 ML ONE (22:23)
[2020-02-18 23:34] LABS: INR 1.05; PROTHROMBIN TIME 14.3 seconds (11.9-14.5)
[2020-02-19] VITALS (7 sets, daily range): BP systolic 112–137; BP diastolic 58–68
[2020-02-19] MEDS: ONDANSETRON HCL INJ 2MG/ML 2ML 2 MG/ML VIAL IV PRN (02:30)
[2020-02-19] MEDS: HYDROMORPHONE 1MG/1ML INJ IV PRN ×2 (02:30→15:20)
[2020-02-19 05:30] LABS: BASOPHILS % 0.6 % (0.0-1.0); EOSINOPHILS # (AUTO) 0.2 (0.0-0.4); EOSINOPHILS % 3.2 % (0.0-6.0); HEMATOCRIT 29.2 % (34.2-44.1); HEMOGLOBIN 9.2 g/dL (12.0-16.0); LYMPHOCYTES # (AUTO) 1.1 (1.0-3.2); MEAN CORPUSCULAR HEMOGLOBIN 30.7 pg (28-32); MEAN CORPUSCULAR HGB CONC 31.5 g/dL (31-35); MEAN CORPUSCULAR VOLUME 97.3 fL (81-99); MONOCYTES # (AUTO) 0.7 (0.2-0.8); MONOCYTES % 10.2 % (4.4-11.3); NEUTROPHILS # (AUTO) 4.4 (2.1-6.9); NEUTROPHILS % 68.1 % (38.7-80.0); PLATELET COUNT 268 x10e3/uL (140-360); RED CELL DISTRIBUTION WIDTH 15.5 % (11.7-14.4)
[2020-02-19] MEDS: MEROPENEM 500MG/ NS 50ML 50 ML IV SCH ×3 (05:35→21:13)
[2020-02-19 05:48] LABS: ALANINE AMINOTRANSFERASE 11 IU/L (0-55); ALBUMIN/GLOBULIN RATIO 0.5 (0.8-2.0); ALKALINE PHOSPHATASE 69 IU/L (40-150); ANION GAP 9.5 mmol/L (8-16); BLOOD UREA NITROGEN 9 mg/dL (7-26); BUN/CREATININE RATIO 21 (6-25); CARBON DIOXIDE 27 mmol/L (22-29); CHLORIDE 106 mmol/L (98-107); CREATININE, SERUM 0.42 mg/dL (0.57-1.11); EST GLOMERULAR FILTRATION RATE > 60 ML/MIN (60-); GLUCOSE 90 mg/dL (74-118); MAGNESIUM 1.5 MG/DL (1.3-2.1); PHOSPHORUS 2.5 MG/DL (2.3-4.7); POTASSIUM 3.5 mmol/L (3.5-5.1); SODIUM 139 mmol/L (136-145)
[2020-02-19] MEDS: FOLIC ACID 1 MG TAB PO SCH (08:30)
[2020-02-19] MEDS: ASCORBIC ACID 500 MG TAB PO SCH ×2 (08:31→16:26)
[2020-02-19] MEDS: ZINC SULFATE 220 MG CAP PO SCH (08:31)
[2020-02-19] MEDS: MINERAL OIL/PETROLAT/GLYCERI 6OZ BTL TOP SCH ×4 (08:31→20:26)
[2020-02-19] MEDS: IRON SUCROSE 100 MG in SODIUM CHLORIDE 0.9% 100 ML 100 ML IV SCH (08:58)
[2020-02-19] MEDS: FAMOTIDINE 20 MG/2 ML VIAL IV SCH ×2 (08:58→16:25)
--- NOTE | 2020-02-19 11:04 | Progress Note ---
DATE: SUBJECTIVE: The patient is seen and examined today, clinically doing better. She is scheduled for PEG tube placement. OBJECTIVE: GENERAL: Alert, awake, communicative. HEENT: Normocephalic, atraumatic. Conjunctivae are clear. NECK: Supple. CHEST: Decreased breath sounds at the bases. ABDOMEN: Soft. EXTREMITIES: No edema. LABS AND IMAGING: Reviewed. ASSESSMENT/PLAN: The patient with history of multiple medical condition including symptomatic anemia, current hemoglobin is same the good level, was on iron treatment, required blood transfusion, recommendation of close observation, try to avoid frequent blood draws. Sepsis. Patient is being followed by infectious disease specialist on antibiotics. Continue current care. Vulvar cancer, status post chemoradiation and surgery. Restaging workup with outpatient. MD GAVIN Banegas/SULMA /[id number]
--- NOTE | 2020-02-19 11:23 | NUR ---
ST Note: Per RN, pt to get PEG today. Will f/u if/when indicated.
[2020-02-19] MEDS ORDERED: LIDOCAINE HCL 1% LOCAL INJ 20 ML VIAL ONE (11:40)
[2020-02-19] MEDS: DAPTOMYCIN 500mg 10ML 300 MG in SODIUM CHLORIDE 0.9% 100 ML IV SCH (12:00)
--- NOTE | 2020-02-19 12:25 | Progress Note ---
DATE: SUBJECTIVE: The patient is seen and evaluated and discussed with Dr. Jackson. Discussed with attending team, nurse practitioner, Daljit. REVIEW OF SYSTEMS: The patient is comfortable in bed. No specific complaint. Remains weak. No nausea, no vomiting, no fever, no chills. No chest pain. No shortness of breath. PHYSICAL EXAMINATION: VITAL SIGNS: Temperature 98.6, pulse is 81, respiration 20, blood pressure 131/58. GENERAL: Comfortable in bed, weak. No acute distress. On TPN. CV: S1, S2. CHEST: Equal expansion. Decreased breath sounds. No acute distress. ABDOMEN: Soft and nontender with ostomy bag. HEENT: Moist. No pain. No JVD. EXTREMITIES: Weak, thin. No acute distress. MEDICATIONS: Medication list reviewed. As far as Infectious Disease point of view, the patient is on meropenem. LABORATORY STUDIES: White count of 6.47, hemoglobin 9.2, platelet 268. Sodium 139, potassium 3.5, creatinine 0.42. No new serology available. No new toxicology available. MICROBIOLOGY: Recheck blood culture and urine culture negative. IMAGING DATA: No new radiology studies available. ASSESSMENT AND PLAN: 1. Sepsis on admission. 2. Bacteremia. 3. Urinary tract infection. 4. Protein calorie malnutrition, remains on TPN. 5. Debility. 6. Anemia. 7. Dysphagia. 8. History of vulvar cancer. The plan is to get feeding tube today and hopefully suprapubic catheter placement on Monday. We continue with antibiotics at this point and hopefully plan for discharge planning for maybe early next week. The patient remains on daptomycin and meropenem. Please refer to chart for more information. Further management of this patient is based on daily findings, on laboratory and physical examination. Thank you for this dictation. Dictated by Rafael Hanson PA-C (Al) Damon Jackson MD /MODL /[id number]
[2020-02-19] MEDS ORDERED: SODIUM CHLORIDE 0.9% 250ML 0 ML ONE (12:29)
[2020-02-19] MEDS ORDERED: IOPAMIDOL 300 MG/ML 15ML VIAL IT ONE (12:29)
[2020-02-19] MEDS ORDERED: SUGAMMADEX SODIUM 200 MG/2 ML VIAL IV ONE (13:21)
[2020-02-19] MEDS ORDERED: FENTANYL CITRATE/PF 100MCG/2 ML INJ ONE (14:19)
[2020-02-19] MEDS ORDERED: MIDAZOLAM HCL 2 MG/2 ML VIAL ONE (14:19)
[2020-02-19] MEDS: COLLAGENASE 5 GM TUBE TOP SCH (15:30)
[2020-02-19] MEDS: SILVER ANTIMICROBIAL WOUND GEL 45ML TOP SCH (15:30)
--- NOTE | 2020-02-19 16:18 | NUR ---
Nutrition Intervention Note RD Recommendation(s) for Physician: -When PEG is placed and able to use, recommend Osmolite 1.2 at 10 ml/hr. Slowly advance to goal rate of 60 ml/hr (to provide 1728 kcal and 80 gm protein). Water flushes per MD or 75 ml q 4 hours. -Once pt tolerating TF at 35 ml/hr, recommend weaning and discontinuing TPN. -Recommend Abdirizak 1 packet BID to promote wound healing. -Continue vitamin C and zinc sulfate to promote wound healing. The patient meets criteria for MODERATE protein-calorie malnutrition. Plan of Care: RD following, monitoring for tolerance and adequacy Nutrition reason for involvement: consult, follow up RD Assessment 02/18: Follow up. RD received consult for tube feeding recommendation. Pt is planned to have a PEG tube placed today. Pt is receiving TPN at 41.6 mL/hr at this time and remains NPO. Tube feed recommendations provided. Will continue to monitor. 02/16: Follow up. Pt continues on TPN, currently at 41.6 ml/hr and remains NPO, no DHT currently and PEG placement remains pending. TPN rec's placed in chart for MD or JACE. Pt started on vitamin C and zinc sulfate to aid in wound healing. CAD TECHNICIAN following, not appropriate to be seen today per CAD TECHNICIAN notes. Will continue to monitor. 02/13: Follow up. Pt was discussed during interdisciplinary rounds. Pt is receiving TPN at this time and a dobhoff tube is planned to be placed per RN. Recommend to wean TPN and initiate tube feeding when dobhoff is placed. Pt was not appropriate for CAD TECHNICIAN evaluation today per CAD TECHNICIAN note. Recommendations provided. Will continue to monitor. 02/11: Follow up. Pt remains NPO, plan for procedure- possible PEG today. TPN initiated by MD, currently on standard formula with standard lytes. Noted low Phos, replaced with Na Phos 10 mmol IVPB this am. TPN rec's provided. CAD TECHNICIAN following pt. Chart reviewed. Will continue to follow. 02/09: Follow up and consult. Received MD consult for protein calorie malnutrition, pt previously evaluated and meets criteria for moderate protein calorie malnutrition. Pt remains NPO, per RN plan for MBS today as PEG placement was cancelled- Gastrografin swallow to assess her pneumomediastinum, suspicion of possible anastomotic leak from the gastric bypass. Pt and rec's discussed with RN on unit. TF, diet, supplement, and MVI/mineral rec's placed in chart for CAD TECHNICIAN following. Chart reviewed. Will continue to monitor. (02/07) 59 yo F, who is admitted from home for sepsis and aspiration PNA. Levophed has been d/c, per RN. CT chest showed mild aspiration. MBS is ordered for Monday. Visited pt in the room. Pt reported poor PO intake x 1 week at home. Nausea has resolved with Zofran. No vomiting episode noted. Pt has denture that is well fitting. Pt reports losing 80lbs since diagnosed with cancer in 2018. LBM 1 week ago. Pt has signs of moderate muscle and fat loss upon observation. Discussed nutrition care plan with pt. Will continue to monitor and follow. 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 Glu 94, Ca 8.2, Mg 1.6 02/11: Na 134, K 3.6, Cl 110, CO2 23, BUN <5, Cr 0.38, Gluc 96, Ca 7.3, Mg 1.7, Phos 1.6 02/09: Na 135, K 3.2, BUN 6, Cr 0.42, Gluc 86, POC Gluc 64-132 Meds: IV iron, pepcid, abx, zofran, vitamin C, zinc sulfate, folic acid Ht: 67in Wt: 109 lbs (02/16) 115 lbs (02/13) 111.56lb (02/07) BMI: 17.1 kg/m2 IBW: 135b +/- 10% Malnutrition Evaluation (02/08/2020) The patient meets criteria for MODERATE protein-calorie malnutrition. Energy intake: <75% of estimated energy requirements for >7 days Weight loss: 1-2% in 1 week (Acute) Fat loss: Moderate - slightly hollow around orbital region Muscle loss: Moderate temporal depression, some protrusion of acromion process Supporting Evidence: Fluid accumulation: unable to evaluate Functional Status: measurably reduced Nutrition Prescription (Diet Order): NPO on TPN TPN at 41.6 ml/hr, standard formula (Dextrose 30%, AA 10%), lipids 25 gm MWF, standard lytes, MVI, trace, thiamine, folic acid. (provides 150 gm dextrose, 50 gm protein, 817 kcal) Estimated Nutritional Needs: 1530 - 1785 calories/day (30-35 kcal/kg CBW) Weight used: 111 lbs 76 - 102g protein/day (1.5-2 g pro/kg CBW) Weight used: 111 lbs Diet Adequacy: Not meeting calorie needs, Not meeting protein needs Tolerance: Tolerance pending, tolerating TPN Diet Education Needs Assessment: Diet education not indicated. Nutrition Care Level: High Nutrition Diagnosis: Malnutrition related cancer as evidenced by moderate muscle/ fat loss, decreased PO intake for 7 days and risk of aspiration. Goal: Patient will meet 75-100% of estimated needs by follow up Progress: not progressing Interventions: -Composition, rate, route, Multivitamin/mineral supplement therapy, Collaboration with other providers Monitoring/Evaluation: -Total energy intake, Total protein intake, Formula/Solution, Weight change Signed: Nikki Morrison RD, LD
--- NOTE | 2020-02-19 19:04 | NUR ---
patient received lying quietly in bed. patient easily awakens to name. no c/o pain noted. tpn infusing without difficulty. pm assessment complete. side rails up x 2. call hamlin placed within reach. patient instructed to call for assistance when needed.
--- NOTE | 2020-02-19 19:11 | Operative Report ---
DATE OF PROCEDURE: 02/19/2020 SURGEON: Faisal Bolden MD PREOPERATIVE DIAGNOSIS: Malnutrition. POSTOPERATIVE DIAGNOSIS: Malnutrition. OPERATIVE PROCEDURE: Open placement of gastrostomy tube. ANESTHESIA: General. INDICATIONS: A 59-year-old female with history of anorexia and malnutrition with possible esophageal injury, which was treated with antibiotics and TPN. The patient consented for placement of gastrostomy tube. The patient had prior history of gastric bypass with revisional surgery. She had a gastrostomy tube inserted 2 years ago, which fell out approximately 2 months ago. Attempt will be made to reinsert the tube through the same tract. If not feasible, proceeding with open G-tube placement. DESCRIPTION OF PROCEDURE: The patient was brought to the OR and intubated. The abdomen was prepped and draped in sterile fashion with alcohol. The prior left upper quadrant gastrostomy tube site was identified and incision was made directly over the scar extended down to subcutaneous tissue. We attempted to localize the tract, which was not found. At this point, decision was made to convert to open approach and an upper midline incision was made through the fascia entering the peritoneal cavity. The previous PEG tube site was identified and the adhesions taken down the stomach from the abdominal wall. The previous gastrotomy site was closed with an interrupted stitch of 3-0 Vicryl. We then selected a new area in the abdominal wall as well as in the stomach for placement of a new G-tube. A 16-[place] gastrostomy tube was passed through the left upper quadrant abdominal wall approximately 3 cm caudad to the previous G-tube site. The fresh area of the antrum of the gastric remnant was selected slightly posterior to the greater curvature and in this area, a gastrotomy was created with Bovie. Two pursestring stitch was placed around the gastrotomy the inner using 3-0 Vicryl and the outer 2-0 silk. The gastrostomy tube was then inserted into the antrum of the stomach and the balloon was inflated and both pursestring stitch were then tied snugly around the tube body. The tube was then anchored to the anterior abdominal wall, peritoneal lining with interrupted 3-0 silk stitches. Additional stitch was placed on the skin to anchor the tube. We then irrigated the peritoneal cavity and closed the midline fascia running #0 PDS and the skin with tez. The patient tolerated the procedure well. We then performed an intraoperative Gastrografin study of the gastrostomy tube with 10 mL of Gastrografin confirming the tube within the stomach with no gastric outlet obstruction. The patient was then extubated and transported to recovery room in guarded condition. BLOOD LOSS: 5 mL. MD ILSA Hernandez/SULMA /[id number]
[2020-02-19] MEDS ORDERED: ROCURONIUM BROMIDE 10 MG/ML 5ML VIAL IV ONE (19:44)
[2020-02-19] MEDS ORDERED: DEXAMETHASONE SOD PHOS INJ 4 MG/ML VIAL ONE (19:44)
[2020-02-19] MEDS ORDERED: LIDOCAINE HCL 2% LOCAL INJ 5 ML SDV VIAL INJ ONE (19:44)
[2020-02-19] MEDS ORDERED: SEVOFLURANE INHAL SOLN 250 ML PEN BTL ONE (19:44)
[2020-02-19] MEDS ORDERED: ETOMIDATE 2 MG/ML 10 ML INJ IV ONE (19:44)
[2020-02-19] MEDS ORDERED: ONDANSETRON HCL INJ 2MG/ML 2ML 2 MG/ML VIAL ONE (19:44)
[2020-02-19] MEDS: CENTRAL TPN FORMULA 1 BAG IV SCH (20:00)
[2020-02-20] VITALS (8 sets, daily range): BP systolic 114–145; BP diastolic 54–70
[2020-02-20] MEDS: HYDROMORPHONE 1MG/1ML INJ IV PRN ×5 (02:00→22:25)
[2020-02-20] MEDS: ONDANSETRON HCL INJ 2MG/ML 2ML 2 MG/ML VIAL IV PRN ×3 (02:00→22:25)
--- NOTE | 2020-02-20 02:00 | NUR ---
patient medicated with dilaudid 0.5mg and zofran 4mg ivp for c/o sacral pain 03/25. patient repositioned for comfort.
[2020-02-20] MEDS: MEROPENEM 500MG/ NS 50ML 50 ML IV SCH ×3 (05:20→22:00)
[2020-02-20 06:15] LABS: BASOPHILS % 0.2 % (0.0-1.0); EOSINOPHILS % 0.2 % (0.0-6.0); HEMATOCRIT 30.2 % (34.2-44.1); HEMOGLOBIN 9.6 g/dL (12.0-16.0); LYMPHOCYTES # (AUTO) 1.2 (1.0-3.2); LYMPHOCYTES % 10.8 % (18.0-39.1); MEAN CORPUSCULAR HEMOGLOBIN 30.7 pg (28-32); MEAN CORPUSCULAR HGB CONC 31.8 g/dL (31-35); MEAN CORPUSCULAR VOLUME 96.5 fL (81-99); MONOCYTES # (AUTO) 0.8 (0.2-0.8); MONOCYTES % 7.3 % (4.4-11.3); NEUTROPHILS # (AUTO) 9.2 (2.1-6.9); NEUTROPHILS % 80.9 % (38.7-80.0); PLATELET COUNT 320 x10e3/uL (140-360); RED BLOOD COUNT 3.13 x10e6/uL (3.6-5.1); RED CELL DISTRIBUTION WIDTH 15.4 % (11.7-14.4)
--- NOTE | 2020-02-20 06:20 | NUR ---
patient medicated with dilaudid 0.5mg and zofran 4mg ivp for c/o sacral pain 04/24 at this time.
[2020-02-20 06:37] LABS: ANION GAP 9.8 mmol/L (8-16); BLOOD UREA NITROGEN 12 mg/dL (7-26); BUN/CREATININE RATIO 31 (6-25); CALCIUM 9.1 mg/dL (8.4-10.2); CARBON DIOXIDE 25 mmol/L (22-29); CHLORIDE 108 mmol/L (98-107); CREATININE, SERUM 0.39 mg/dL (0.57-1.11); EST GLOMERULAR FILTRATION RATE > 60 ML/MIN (60-); GLUCOSE 105 mg/dL (74-118); MAGNESIUM 1.5 MG/DL (1.3-2.1); POTASSIUM 3.8 mmol/L (3.5-5.1); SODIUM 139 mmol/L (136-145)
--- NOTE | 2020-02-20 07:00 | NUR ---
Received bedside report. pt is alert resting in bed, no s/s of distress. call light within reach and instructed pt to call RN for help. bed safety in place.
[2020-02-20] MEDS: ZINC SULFATE 220 MG CAP PO SCH (07:41)
[2020-02-20] MEDS: FOLIC ACID 1 MG TAB PO SCH (07:41)
[2020-02-20] MEDS: ASCORBIC ACID 500 MG TAB PO SCH (07:41)
[2020-02-20] MEDS: MINERAL OIL/PETROLAT/GLYCERI 6OZ BTL TOP SCH ×4 (08:31→20:39)
[2020-02-20] MEDS: FAMOTIDINE 20 MG/2 ML VIAL IV SCH ×2 (08:31→17:30)
[2020-02-20] MEDS ORDERED: ZOLOFT50 MG PO (09:09)
[2020-02-20] MEDS ORDERED: ELIQUIS5 MG PO (09:16)
[2020-02-20] MEDS ORDERED: GABAPENTIN100 MG PO (09:16)
[2020-02-20] MEDS ORDERED: PROAIR HFA INH8.5 GM IH (09:16)
[2020-02-20] MEDS ORDERED: PANTOPRAZOLE SO40 MG PO (09:16)
[2020-02-20] MEDS ORDERED: SUCRALFATE1 GM PO (09:16)
[2020-02-20] MEDS: IRON SUCROSE 100 MG in SODIUM CHLORIDE 0.9% 100 ML 100 ML IV SCH (09:26)
--- NOTE | 2020-02-20 10:53 | Progress Note ---
DATE: SUBJECTIVE: The patient had her feeding tube placed yesterday. She is awaiting a suprapubic catheter tomorrow. PHYSICAL EXAMINATION: VITAL SIGNS: The blood pressure is 124/62, saturation is 99% and the pulse is 89. HEENT: Shows no facial swelling or erythema. CARDIAC: Reveals a regular rate and rhythm with a normal S1 and S2. LUNGS: Auscultation of lungs shows clear breath sounds bilaterally. There is no wheezing. ABDOMEN: Soft, nontender. There is no rebound or guarding. EXTREMITIES: Show no leg edema or calf tenderness. There is no cyanosis or clubbing. SKIN: Shows no rashes. LABORATORY DATA: White blood cell count is 11.4 and hemoglobin is 9.6. The platelet count is 320. The BUN to creatinine ratio is 12 to 0.39. Other electrolytes are within normal limits. The albumin is 2.0. IMPRESSION: 1. Severe protein calorie malnutrition. 2. History of vulvar cancer. 3. Stage 4 decubitus wound in the perineum. 4. Vancomycin resistant enterococcus and Escherichia coli bacteremia secondary to urinary source, present on admission. 5. Anemia, unspecified. 6. Pneumomediastinum. PLAN: 1. Continue enteral feedings. 2. Complete antibiotics. 3. Await suprapubic catheter. 4. Speech therapy to continue evaluation therapy. 5. Physical therapy. 6. Wound care. Sherwin Cardona MD LM/MODL /[id number]
--- NOTE | 2020-02-20 11:48 | Progress Note ---
DATE: SUBJECTIVE: The patient is seen and examined today. The patient appears comfortable. She received PEG tube yesterday. Tolerated the procedure very well. She denies any new symptoms. No fever or chills reported. PHYSICAL EXAMINATION: GENERAL: Alert, awake, communicative. HEENT: Normocephalic, atraumatic. Sclerae pink. Conjunctivae clear. NECK: Supple. CHEST: Decreased breath sounds in the bases. ABDOMEN: Soft, mildly tender. EXTREMITIES: No edema. LABORATORY DATA: Reviewed. White blood cell 11.43, hemoglobin 9.6, platelet count 320. ASSESSMENT AND PLAN: 1. The patient with a history of multiple medical condition, currently in hospital with sepsis, anemia, protein malnutrition. 2. Anemia. a. The patient has anemia of chronic disease. b. Required blood transfusion. c. Current hemoglobin is staying stable range. d. Recommendation to continue close observation. Try to avoid frequent blood draws. e. Not a candidate for erythropoietin treatment. f. I will monitor patient very closely. 3. Sepsis. 4. a. The patient being following ID. b. Currently on antibiotic treatment. c. Current white blood count went up. d. We will follow ID recommendation. 5. History of pulmonary embolism. 6. a. Not a candidate for any anticoagulation at current condition. 7. Vulvar cancer. 8. a. Status post treatment. b. Recommendation outpatient staging workup. 9. Pneumomediastinum. 10. a. Following surgery. MD GAVIN Banegas/SULMA /[id number]
--- NOTE | 2020-02-20 12:03 | NUR ---
ST Note: Order for bedside swallow eval noted. Discussed case with BRUNILDA Cook. Pt currently working with PT. Will f/u later time permitting.
--- NOTE | 2020-02-20 12:18 | Progress Note ---
DATE: SUBJECTIVE: The patient is seen and evaluated. Available labs and notes reviewed. Discussed with the patient and the daughter was actually on a speaker phone and antibiotic was discussed with the daughter as well. Discussed with Urology. Plan is for suprapubic tube placement tomorrow. The patient had a feeding tube placed in yesterday. REVIEW OF SYSTEMS: No nausea, vomiting, fever, chills, chest pain, shortness of breath, headache, dysuria, polyuria. PHYSICAL EXAMINATION: VITAL SIGNS: Temperature 98.1, pulse 89, respiration 19, blood pressure 124/62. GENERAL: Alert and oriented, very pleasant, remains on TPN. CV: S1, S2. CHEST: Equal expansion. Clear to auscultation. No acute distress. ABDOMEN: Soft. No tender. Positive bowel sounds with the feeding tube. Ostomy bag, abdomen seems to be functional. HEENT: Moist. No pallor. No JVD. EXTREMITIES: Weak. No acute distress. MEDICATIONS: Medication list reviewed as far as Infectious Disease point of view patient is on Merrem and Cubicin. LABORATORY STUDIES: White count of 11.43, hemoglobin 9.6, platelet 320. Sodium 139, potassium 3.8 creatinine 0.39. MICROBIOLOGY: Recheck blood culture 02/12/2020, negative. Urine culture 02/17/2020 is negative 48 hours. RADIOLOGY STUDIES: No new radiology studies available. ASSESSMENT AND PLAN: 1. Sepsis on admission. 2. Bacteremia. 3. Urinary tract infection. 4. Protein calorie malnutrition. The patient is on TPN, had a PEG tube placed in yesterday. Feeding tube is getting started to be used and is currently receiving water to see if she tolerates and little by little will be converted from TPN to feeding tube today hopefully per my discussion with the attending team. 5. Debility. 6. Anemia. 7. Dysphagia. 8. History of vulvar cancer. 9. Discussed with the urologist. The plan is to insert this suprapubic catheter tomorrow but continue with Merrem and Cubicin at this point and we will see if we can adjust antibiotics and for discharge planning hopefully tomorrow. The patient really wants to go home. Discussed with Dr. Jackson in details. Discussed with the attending team, nurse practitioner, Daljit. Please refer to chart for more information. Thank you for this dictation. Dictated by Rafael Hanson PA-C (Al) MD STEVE Mixon/SULMA /[id number]
--- NOTE | 2020-02-20 14:48 | NUR ---
pt refuses to turn side to side. wants to remain laying on right side. education rendered to patient
[2020-02-20] MEDS: COLLAGENASE 5 GM TUBE TOP SCH (16:33)
[2020-02-20] MEDS: SILVER ANTIMICROBIAL WOUND GEL 45ML TOP SCH (16:33)
--- NOTE | 2020-02-20 19:05 | NUR ---
patient received awake, alert, lying quietly in bed. tpn infusing without difficulty. no c/o pain noted at this time. pm assessment complete. call hamlin placed within reach. patient instructed to call for assistance when needed.
[2020-02-20] MEDS: CENTRAL TPN FORMULA 1 BAG IV SCH (20:00)
--- NOTE | 2020-02-20 22:25 | NUR ---
patient medicated with dilaudid 0.5mg and zofran 4mg ivp for c/o sacral pain 03/25 at this time.
--- NOTE | 2020-02-20 23:00 | NUR ---
patient states, " My pain medication just doesn't work long enough. I think i might need a little bit more. " call placed to Emely Hamlin ENTRY LEVEL ADMINISTRATIVE ASSISTANT and dose increased. patient made aware of this.
[2020-02-21] VITALS (7 sets, daily range): BP systolic 100–126; BP diastolic 55–69
--- NOTE | 2020-02-21 | NUR ---
water per peg tube stopped at this time. patient npo for surgery today.
[2020-02-21] MEDS: HYDROMORPHONE 1MG/1ML INJ IV PRN ×4 (02:55→23:03)
[2020-02-21] MEDS: ONDANSETRON HCL INJ 2MG/ML 2ML 2 MG/ML VIAL IV PRN (02:55)
--- NOTE | 2020-02-21 02:55 | NUR ---
patient medicated with dilaudid 1mg and zofran 4mg ivp for c/o sacral pain 03/25 at this time.
[2020-02-21] MEDS: MEROPENEM 500MG/ NS 50ML 50 ML IV SCH ×2 (05:09→16:35)
[2020-02-21 06:13] LABS: BASOPHILS # (AUTO) 0.1 (0.0-0.1); BASOPHILS % 0.5 % (0.0-1.0); EOSINOPHILS # (AUTO) 0.4 (0.0-0.4); HEMATOCRIT 33.2 % (34.2-44.1); HEMOGLOBIN 10.3 g/dL (12.0-16.0); LYMPHOCYTES # (AUTO) 1.6 (1.0-3.2); LYMPHOCYTES % 16.5 % (18.0-39.1); MEAN CORPUSCULAR HEMOGLOBIN 30.7 pg (28-32); MEAN CORPUSCULAR VOLUME 98.8 fL (81-99); MONOCYTES # (AUTO) 0.9 (0.2-0.8); MONOCYTES % 9.9 % (4.4-11.3); NEUTROPHILS # (AUTO) 6.4 (2.1-6.9); NEUTROPHILS % 68.1 % (38.7-80.0); PLATELET COUNT 318 x10e3/uL (140-360); RED BLOOD COUNT 3.36 x10e6/uL (3.6-5.1); RED CELL DISTRIBUTION WIDTH 15.7 % (11.7-14.4)
[2020-02-21 06:38] LABS: ALANINE AMINOTRANSFERASE 11 IU/L (0-55); ALBUMIN 1.9 g/dL (3.5-5.0); ALBUMIN/GLOBULIN RATIO 0.4 (0.8-2.0); ALKALINE PHOSPHATASE 64 IU/L (40-150); ANION GAP 9.6 mmol/L (8-16); BLOOD UREA NITROGEN 10 mg/dL (7-26); BUN/CREATININE RATIO 24 (6-25); CALCIUM 9.2 mg/dL (8.4-10.2); CARBON DIOXIDE 25 mmol/L (22-29); CHLORIDE 105 mmol/L (98-107); CREATININE, SERUM 0.41 mg/dL (0.57-1.11); EST GLOMERULAR FILTRATION RATE > 60 ML/MIN (60-); GLUCOSE 82 mg/dL (74-118); MAGNESIUM 1.5 MG/DL (1.3-2.1); POTASSIUM 3.6 mmol/L (3.5-5.1); SODIUM 136 mmol/L (136-145)
--- NOTE | 2020-02-21 07:01 | NUR ---
Patient off the unit for procedure, stable, no distress noted
[2020-02-21] MEDS ORDERED: BUPIVACAINE 0.5%/EPI 30 ML SDV INJ ONE (07:04)
[2020-02-21] MEDS ORDERED: B&O 60MG R/S 60 MG SUPP PR ONE (07:04)
[2020-02-21] MEDS ORDERED: IOPAMIDOL 300MG/ML 50ML INFUS..BTL IV ONE (07:04)
[2020-02-21] MEDS ORDERED: ACETAMINOPHEN 1000 MG/100 ML 100 ML IV ONE (09:16)
--- NOTE | 2020-02-21 09:40 | NUR ---
Patient back to room after procedure, Alert, easily arousal by verbal command, Suprapubic catheter site is intact, denies any pain this time, vitals WNL, Assessed bowel sounds by auscultation and connected back with tube feeding water. keep monitoring, call light in reach, bed alarm ON.
--- NOTE | 2020-02-21 10:40 | NUR ---
ST Note: Attempted to see pt for ongoing swallow assessment. pt very sleepy after procedure. Will try again later time permitting.
--- NOTE | 2020-02-21 11:09 | Diagnostic Imaging Report ---
OR Fluoroscopy: IMPRESSION: Fluoroscopy service provided in the OR. Interpretation not requested. Signed by: Reza Blackwood MD on 02/21/2020 11:05 AM
[2020-02-21] MEDS: IRON SUCROSE 100 MG in SODIUM CHLORIDE 0.9% 100 ML 100 ML IV SCH (11:25)
[2020-02-21] MEDS: FAMOTIDINE 20 MG/2 ML VIAL IV SCH ×2 (11:25→17:25)
[2020-02-21] MEDS: SERTRALINE HCL 50 MG TAB PO SCH (11:26)
[2020-02-21] MEDS: FOLIC ACID 1 MG TAB PO SCH (11:26)
[2020-02-21] MEDS: ZINC SULFATE 220 MG CAP PO SCH (11:26)
[2020-02-21] MEDS: MINERAL OIL/PETROLAT/GLYCERI 6OZ BTL TOP SCH ×4 (11:32→22:44)
--- NOTE | 2020-02-21 11:37 | Progress Note ---
DATE: SUBJECTIVE: The patient is seen and evaluated. Available labs and notes reviewed. The patient just rolled back from OR, seems to be comfortable in bed, opens eyes and went back to sleep. REVIEW OF SYSTEMS: Unable to obtain review of systems secondary to the patient just came back from OR. Discussed with staff. No new complaints. PHYSICAL EXAMINATION: VITAL SIGNS: Temperature 96.8, pulse is 79, respirations 16, and blood pressure 113/57. GENERAL: Comfortable in bed, no acute distress, open eyes and went back to sleep, just back from OR. CV: S1 and S2. CHEST: Equal expansion. Clear to consultation. ABDOMEN: Soft. Positive bowel sounds. HEENT: Moist. No pallor. No JVD. EXTREMITIES: Weak. Overall, no acute finding. MEDICATIONS: Medication list reviewed and as far as Infectious Disease point of view, the patient is on meropenem. We renew Cubicin for the time patient here, needs total of 14 days of antibiotics. LABORATORY STUDIES: White blood cells 9.46, hemoglobin is 10.3, and platelet is 318. Sodium 136, potassium 3.6, and creatinine is 0.41. No new serology available. Blood culture 02/11, is clean. Urine culture 02/16, is clean. RADIOLOGY STUDIES: No new radiology studies available. ASSESSMENT AND PLAN: 1. Status post suprapubic catheter placement. The patient was admitted with sepsis-sepsis resolved. 2. Bacteremia. 3. Urinary tract infection. 4. Protein-calorie malnutrition-status post PEG tube placement, still on TPN. 5. Debility. 6. Dysphagia. 7. Anemia. 8. History of vulvar cancer. 9. Discussed with the attending team. 10. Discussed with nurse. 11. Renew Cubicin for the time patient here. Can be discharged from ID point of view, off the antibiotics. Further management of this patient is based on daily findings on laboratory and physical examination. Discussed with Dr. Jackson in details. Dictated by Rafael Hanson PA-C (Al) Damon Jackson MD /MODL /[id number]
[2020-02-21] MEDS ORDERED: FUROSEMIDE INJ 10 MG/ML 4 ML VIAL ONE (11:50)
[2020-02-21] MEDS ORDERED: MIDAZOLAM HCL 2 MG/2 ML VIAL ONE (13:52)
--- NOTE | 2020-02-21 13:55 | NUR ---
irrigated and aspirated the suprapubic catheter, slight output noted.
--- NOTE | 2020-02-21 14:40 | NUR ---
ST Note: Attempted to see pt for ongoing swallow assessment. Pt off floor for procedure. Will f/u later time permitting.
--- NOTE | 2020-02-21 15:10 | NUR ---
Nutrition Intervention Note RD Recommendation(s) for Physician: -Continue Osmolite 1.2 and slowly advance to goal rate of 60 ml/hr (to provide 1728 kcal and 80 gm protein). Water flushes per MD or 75 ml q 4 hours -If bolus regimen is desired: Recommend Osmolite 1.2 @ goal of 240 mL 6x/day and water flushes of 75 mL q4 hrs or per MD (provides 1728 kcal and 80 g protein) -Recommend Abdirizak 1 packet BID to promote wound healing. -Recommend vitamin C and zinc sulfate to promote wound healing. The patient meets criteria for MODERATE protein-calorie malnutrition. Plan of Care: RD following, monitoring for tolerance and adequacy Nutrition reason for involvement: follow up RD Assessment 02/20: Follow up. Pt received a PEG tube. TPN was discontinued and pt was started on Osmolite tube feedings today. Recommend increasing towards goal rate as medically appropriate. Will continue to monitor. 02/18: Follow up. RD received consult for tube feeding recommendation. Pt is planned to have a PEG tube placed today. Pt is receiving TPN at 41.6 mL/hr at this time and remains NPO. Tube feed recommendations provided. Will continue to monitor. 02/16: Follow up. Pt continues on TPN, currently at 41.6 ml/hr and remains NPO, no DHT currently and PEG placement remains pending. TPN rec's placed in chart for MD or JACE. Pt started on vitamin C and zinc sulfate to aid in wound healing. SUPERVISOR [employer] following, not appropriate to be seen today per SUPERVISOR PRINT [employer] notes. Will continue to monitor. 02/13: Follow up. Pt was discussed during interdisciplinary rounds. Pt is receiving TPN at this time and a dobhoff tube is planned to be placed per RN. Recommend to wean TPN and initiate tube feeding when dobhoff is placed. Pt was not appropriate for SUPERVISOR [employer]INT [employer] evaluation today per SUPERVISOR PRINT LINE note. Recommendations provided. Will continue to monitor. 02/11: Follow up. Pt remains NPO, plan for procedure- possible PEG today. TPN initiated by MD, currently on standard formula with standard lytes. Noted low Phos, replaced with Na Phos 10 mmol IVPB this am. TPN rec's provided. SUPERVISOR [employer] following pt. Chart reviewed. Will continue to follow. 02/09: Follow up and consult. Received MD consult for protein calorie malnutrition, pt previously evaluated and meets criteria for moderate protein calorie malnutrition. Pt remains NPO, per RN plan for MBS today as PEG placement was cancelled- Gastrografin swallow to assess her pneumomediastinum, suspicion of possible anastomotic leak from the gastric bypass. Pt and rec's discussed with RN on unit. TF, diet, supplement, and MVI/mineral rec's placed in chart for MD. SUPERVISOR PRINT LINE following. Chart reviewed. Will continue to monitor. (02/07) 59 yo F, who is admitted from home for sepsis and aspiration PNA. Levophed has been d/c, per RN. CT chest showed mild aspiration. MBS is ordered for Monday. Visited pt in the room. Pt reported poor PO intake x 1 week at home. Nausea has resolved with Zofran. No vomiting episode noted. Pt has denture that is well fitting. Pt reports losing 80lbs since diagnosed with cancer in 2018. LBM 1 week ago. Pt has signs of moderate muscle and fat loss upon observation. Discussed nutrition care plan with pt. Will continue to monitor and follow. Principal Problems/Diagnoses: Sepsis, aspiration PNA PMH: vulvar cancer that required radiation and chemotherapy followed by surgical resection in 2018 GI: LBM 02/17 per flow sheets; flat, soft, nontender abdomen, + colostomy Skin: stage 4 sacral pressure ulcer with visible bone Labs: 02/20: Na 136, K 3.6, Cl 105, BUN 10, Cr 0.41, Glu 82, Mg 1.5 02/18: Na 139, K 3.5, Cl 106, BUN 9, Cr 0.42, Glu 90, Ca 9.0, Phos 2.5, Mg 1.5 02/16: Na 136, K 3.6, Cl 107, CO2 25, BUN 10, Cr 0.39, Gluc 94, POC GLuc 85-100, Ca 8.6, Phos 2.8, Mg 1.7 02/13: Na 134, K 3.7, CO2 23, BUN 7, Cr 0.35. Glu 94, Ca 8.2, Mg 1.6 02/11: Na 134, K 3.6, Cl 110, CO2 23, BUN <5, Cr 0.38, Gluc 96, Ca 7.3, Mg 1.7, Phos 1.6 02/09: Na 135, K 3.2, BUN 6, Cr 0.42, Gluc 86, POC Gluc 64-132 Meds: IV iron, pepcid, abx, zofran, zinc sulfate, folic acid Ht: 67in Wt: 109 lbs (02/16) 115 lbs (02/13) 111.56lb (02/07) BMI: 17.1 kg/m2 IBW: 135b +/- 10% Malnutrition Evaluation (02/08/2020) The patient meets criteria for MODERATE protein-calorie malnutrition. Energy intake: <75% of estimated energy requirements for >7 days Weight loss: 1-2% in 1 week (Acute) Fat loss: Moderate - slightly hollow around orbital region Muscle loss: Moderate temporal depression, some protrusion of acromion process Supporting Evidence: Fluid accumulation: unable to evaluate Functional Status: measurably reduced Nutrition Prescription (Diet Order): Osmolite 1.2 @ goal rate of 60 mL/hr. Estimated Nutritional Needs: 1530 - 1785 calories/day (30-35 kcal/kg CBW) Weight used: 111 lbs 76 - 102g protein/day (1.5-2 g pro/kg CBW) Weight used: 111 lbs Diet Adequacy: Pt will meet protein and calorie needs when tube feeding is at goal rate Tolerance: Tolerance pending Diet Education Needs Assessment: Diet education not indicated. Nutrition Care Level: High Nutrition Diagnosis: Malnutrition related cancer as evidenced by moderate muscle/ fat loss, decreased PO intake for 7 days and risk of aspiration. Goal: Patient will meet 75-100% of estimated needs by follow up Progress: progressing Interventions: -Composition, rate, route, Multivitamin/mineral supplement therapy Monitoring/Evaluation: -Total energy intake, Total protein intake, Formula/Solution, Weight change Signed: Nikki Morrison RD, LD
[2020-02-21] MEDS: DAPTOMYCIN 500mg 10ML 300 MG in SODIUM CHLORIDE 0.9% 100 ML IV SCH (16:05)
[2020-02-21] MEDS: OXYBUTYNIN CHLORIDE 5 MG TAB PO SCH ×2 (16:20→22:44)
--- NOTE | 2020-02-21 16:42 | NUR ---
Dressing changed on sacral area, patient tolerated well. not in any distress
[2020-02-21] MEDS: SILVER ANTIMICROBIAL WOUND GEL 45ML TOP SCH (16:50)
[2020-02-21] MEDS: COLLAGENASE 5 GM TUBE TOP SCH (16:50)
[2020-02-21] MEDS: MAGNESIUM OXIDE 400 MG TAB PO SCH (17:25)
[2020-02-21] MEDS ORDERED: DEXAMETHASONE SOD PHOS INJ 4 MG/ML VIAL ONE (18:38)
[2020-02-21] MEDS ORDERED: PHENYLEPHRINE HCL 1% 10 MG/ML VIAL ONE (18:38)
[2020-02-21] MEDS ORDERED: PROPOFOL IV EMULSION 10 MG/ML 20 ML VIAL ONE (18:38)
[2020-02-21] MEDS ORDERED: ONDANSETRON HCL INJ 2MG/ML 2ML 2 MG/ML VIAL ONE (18:38)
[2020-02-21] MEDS ORDERED: LIDOCAINE HCL 2% LOCAL INJ 5 ML SDV VIAL INJ ONE (18:38)
[2020-02-21] MEDS ORDERED: ACETAMINOPHEN 1000 MG/100 ML IV ONE (18:38)
[2020-02-21] MEDS ORDERED: SEVOFLURANE INHAL SOLN 250 ML PEN BTL ONE (18:38)
--- NOTE | 2020-02-21 18:49 | Diagnostic Imaging Report ---
Renal Scan with Lasix Washout Clinical information: Fever; sepsis. UTI diagnosed 7 days ago. Has colostomy and indwelling Araiza catheter as well as sacral decubitus. Comparison: No prior nuclear renal scan; CT abdomen 02/09/2020 Technique: Following intravenous administration of 10 mCi of Tc-99m MAG3, dynamic images of the kidneys in the posterior projection were obtained through 40 minutes. Lasix 40 mg was administered intravenously at 10 minutes post injection of the tracer. Report: Left kidney: Perfusion of the left kidney is prompt. The kidney has a reniform shape. Extraction of tracer from the blood pool is mildly decreased. Clearance of tracer from the renal parenchyma begins promptly but is not complete by the end of the study. The pelvicalyceal system is not dilated. No increased pooling of tracer is seen within the pelvicalyceal system. Drainage of tracer from the pelvicalyceal system prior to administration of Lasix is prolonged, related to the impaired function of the kidney. Washout of tracer from the pelvicalyceal system is not applicable because no increased pooling of tracer is seen in the renal collecting system. No stasis of tracer is seen within the left ureter. Right kidney: Perfusion to the right kidney is prompt. The right kidney has a mildly elongated reniform shape. Very mild thinning of the renal parenchyma is noted. Extraction of tracer by the renal parenchyma is mildly decreased. Clearance of tracer from the renal parenchyma begins promptly but is not complete by the end of the study. The pelvicalyceal system is not dilated. Minimal pooling of tracer is seen within the pelvicalyceal system. Drainage of tracer from the pelvicalyceal system prior is prolonged, related to impaired function of the kidney. Washout of tracer from the pelvicalyceal system is not applicable because no increased pooling of tracer is seen in the renal collecting system. No stasis of tracer is seen within the right ureter. Differential renal function: The left kidney contributes 47% of total renal function and the right kidney contributes 53% (normal 43-57%). Impression: 1. The left kidney shows moderately severe medical renal disease. No hydronephrosis is present. The Lasix washout method to evaluate obstruction is not applicable because of the poor renal function, however, no physiologically significant obstruction of the renal collecting system is suspected. 2. The right kidney shows moderately severe medical renal disease. Mild hydronephrosis is suspected evidenced by mild thinning of the renal cortex although the function of the kidney is too impaired to fill the pelvicalyceal system to near capacity. The Lasix washout method to evaluate obstruction is not applicable because of the poor renal function, however, no physiologically significant obstruction of the renal collecting system is suspected. Signed by: Dr. Mari Rodriguez M.D. on 02/21/2020 6:46 PM
[2020-02-21] MEDS: OYST-CAL-D 500MG TABLET PO SCH (22:44)
[2020-02-22] VITALS: BP 113/60
--- NOTE | 2020-02-22 02:44 | NUR ---
DRESSING CHANGED TO RIGHT IJ USING STERILE TECHNIQUE
[2020-02-22 04:00] VITALS: BP 106/53
[2020-02-22] MEDS: HYDROMORPHONE 1MG/1ML INJ IV PRN ×3 (04:00→14:31)
[2020-02-22 06:23] LABS: BASOPHILS # (AUTO) 0.1 (0.0-0.1); BASOPHILS % 0.5 % (0.0-1.0); EOSINOPHILS # (AUTO) 0.2 (0.0-0.4); EOSINOPHILS % 2.5 % (0.0-6.0); HEMATOCRIT 29.8 % (34.2-44.1); HEMOGLOBIN 9.3 g/dL (12.0-16.0); LYMPHOCYTES # (AUTO) 1.4 (1.0-3.2); LYMPHOCYTES % 14.9 % (18.0-39.1); MEAN CORPUSCULAR HEMOGLOBIN 30.7 pg (28-32); MEAN CORPUSCULAR HGB CONC 31.2 g/dL (31-35); MEAN CORPUSCULAR VOLUME 98.3 fL (81-99); MONOCYTES # (AUTO) 0.8 (0.2-0.8); MONOCYTES % 8.8 % (4.4-11.3); NEUTROPHILS # (AUTO) 6.7 (2.1-6.9); NEUTROPHILS % 72.4 % (38.7-80.0); PLATELET COUNT 347 x10e3/uL (140-360); RED BLOOD COUNT 3.03 x10e6/uL (3.6-5.1); RED CELL DISTRIBUTION WIDTH 15.8 % (11.7-14.4)
[2020-02-22 06:50] LABS: ANION GAP 9.3 mmol/L (8-16); BLOOD UREA NITROGEN 15 mg/dL (7-26); BUN/CREATININE RATIO 32 (6-25); CALCIUM 9.4 mg/dL (8.4-10.2); CARBON DIOXIDE 27 mmol/L (22-29); CHLORIDE 106 mmol/L (98-107); CREATININE, SERUM 0.47 mg/dL (0.57-1.11); EST GLOMERULAR FILTRATION RATE > 60 ML/MIN (60-); GLUCOSE 87 mg/dL (74-118); MAGNESIUM 1.4 MG/DL (1.3-2.1); POTASSIUM 3.3 mmol/L (3.5-5.1); SODIUM 139 mmol/L (136-145)
[2020-02-22 08:00] VITALS: BP 103/53
[2020-02-22 08:02] VITALS: BP 94/55
[2020-02-22] MEDS: MAGNESIUM OXIDE 400 MG TAB PO SCH (08:14)
[2020-02-22] MEDS: OYST-CAL-D 500MG TABLET PO SCH ×2 (08:14→15:59)
[2020-02-22] MEDS: SERTRALINE HCL 50 MG TAB PO SCH (08:14)
[2020-02-22] MEDS: ZINC SULFATE 220 MG CAP PO SCH (08:14)
[2020-02-22] MEDS: FAMOTIDINE 20 MG/2 ML VIAL IV SCH (08:14)
[2020-02-22] MEDS: OXYBUTYNIN CHLORIDE 5 MG TAB PO SCH ×2 (08:14→15:59)
[2020-02-22] MEDS: FOLIC ACID 1 MG TAB PO SCH (08:14)
[2020-02-22] MEDS: IRON SUCROSE 100 MG in SODIUM CHLORIDE 0.9% 100 ML 100 ML IV SCH (08:14)
[2020-02-22 08:47] VITALS: BP 103/53
[2020-02-22] MEDS: SILVER ANTIMICROBIAL WOUND GEL 45ML TOP SCH (09:00)
[2020-02-22] MEDS: COLLAGENASE 5 GM TUBE TOP SCH (09:00)
[2020-02-22] MEDS: MINERAL OIL/PETROLAT/GLYCERI 6OZ BTL TOP SCH ×2 (09:00→13:00)
[2020-02-22] MEDS ORDERED: MAG-OXIDE400 MG PO (10:31)
[2020-02-22] MEDS ORDERED: Folic Acid PO (10:31)
[2020-02-22] MEDS ORDERED: ZINC SULFATE220 M1 PO (10:31)
[2020-02-22] MEDS ORDERED: OXYBUTYNIN CHLOR5 MG PO (10:31)
[2020-02-22] MEDS ORDERED: Calcium Carbonate PO (10:31)
--- NOTE | 2020-02-22 10:51 | Progress Note ---
DATE: SUBJECTIVE: The patient is seen and examined today. The patient appeared comfortable, clinically doing better. She had suprapubic catheter yesterday. OBJECTIVE: GENERAL: Alert, awake, communicative. HEENT: Normocephalic, atraumatic. Sclerae pink. Conjunctivae clear. NECK: Supple. CHEST: Decreased breath sounds in the bases. ABDOMEN: Soft. EXTREMITIES: No edema. LABS AND IMAGING: Reviewed. ASSESSMENT/PLAN: The patient with history of multiple medical conditions. 1. Currently following for anemia, hemoglobin stable, clinically doing better. Recommendation, close observation. 2. Sepsis. The patient on antibiotic, following ID, clinically doing better. Continue wound care. 3. Vulvar cancer. Recommendation, outpatient restaging. 4. Pulmonary embolism. Not on any anticoagulation, high risk of bleeding. We will follow the patient closely. MD GAVIN Banegas/SULMA /[id number]
[2020-02-22] MEDS ORDERED: POTASSIUM CHLORIDE 20MEQ/15ML UDC NG ONE (11:00)
[2020-02-22] MEDS: DAPTOMYCIN 500mg 10ML 300 MG in SODIUM CHLORIDE 0.9% 100 ML IV SCH (12:00)
[2020-02-22 12:56] VITALS: BP 113/58
--- NOTE | 2020-02-22 13:17 | NUR ---
Spoke to pt at bedside with her daughter Jeff on the phone regarding home health and tube feeds. Pt states that she has [facility] currently, but they are not reliable. Would like to use another company if possible. CM provided list of companies that take pt's insurance. Pt signed choice letter for [facility], [facility], and [facility]. CM informed pt and daughter that [facility] companies are unable to verify insurance benefits over the weekend for tube feed formula. Pt states she was previously on tube feeds and they bought formula from the store. Daughter states she can go buy some now, to cover until they can get it thru insurance. Choice letter signed for [facility]. Copies of both choice letters placed in pt's transition of care folder, with each company's contact information. Signed copies placed in front of chart. Tube feed referral faxed to [facility] at [phone]. ADRIANO spoke to [employer] with [facility] and informed of referral. States they will run benefits on Monday morning. HH referral faxed to [facility] at [phone] / . Spoke with Satya at [facility]. Informed of referral. She said they are in network with pt's insurance. Will contact pt/family on Monday and schedule pt to be seen.
--- NOTE | 2020-02-22 15:37 | Progress Note ---
DATE: SUBJECTIVE: The patient now has a surgically placed feeding tube. She has a suprapubic catheter. She is tolerating enteral feedings. PHYSICAL EXAMINATION: VITAL SIGNS: The patient is afebrile. The blood pressure is 113/59, saturation is 98%. The pulse is 88. HEENT: Shows no facial swelling or erythema. CARDIAC: Reveals regular rate and rhythm with normal S1, S2. LUNGS: Auscultation of lungs reveals clear breath sounds bilaterally. There is no wheezing. ABDOMEN: Soft, nontender. There is a feeding tube in place. There is no leg edema. IMPRESSION: 1. Severe protein calorie malnutrition. 2. Vancomycin-resistant enterococcus and Escherichia coli bacteremia secondary to urinary source. 3. Vulvar cancer. 4. Decubitus ulcer in the perineum. 5. Anemia. PLAN: 1. The patient will be discharged home today. 2. Enteral feedings. 3. Suprapubic catheter. 4. Antibiotic therapy as outpatient to be recommended by Infectious Disease. 5. Wound care. Sherwin Cardona MD [facility]/HAMLETL /[id number]
--- NOTE | 2020-02-22 16:38 | Progress Note ---
DATE: SUBJECTIVE: Ms. Guzman is doing better. There is no new complaint. PHYSICAL EXAMINATION: GENERAL: Currently alert, oriented. Does not seem to be in acute distress. VITAL SIGNS: Stable, afebrile. HEENT: She is not icteric. NECK: Supple. CHEST: Clear. ABDOMEN: Soft. IMPRESSION: Vaginal cancer, pulmonary embolism, status post suprapubic catheter, bacteremia and dysphagia. Urine with VRE UTI. Bacteremia with Enterococcus. Clinically doing better to finish 14 days of antibiotic. She is currently on daptomycin, which could be discharged home with no antibiotic. Follow up as an outpatient. Discussed with the medical team. She will finish her course 14 days post bacteremia. MD GAVIN Mixon/SULMA /[id number]
--- NOTE | 2020-02-22 16:55 | NUR ---
Pt discharged home at this time. Pt left by stretcher in ambulance. Pt verbalized understanding of all discharge instructions and follow up appointments. Discussed discharge instructions with family as well. right IJ was discontinued at 1600 and pressure dressing was applied to site. Minimal bleeding noted to site. 0 s/s of acute distress noted at time of discharge.
--- NOTE | 2020-02-22 23:18 | Discharge Summary ---
CONTINUATION: Due to the history of gastric bypass and pneumomediastinum, IR and Surgery both work together to put in a PEG tube. Per Urology, suprapubic catheter would be more beneficial for this patient, so it was planned and placed prior to discharge. Due to the difficulty of putting in the suprapubic catheter, Urology ordered a nuclear medicine renal scan prior to discharge, which showed no physiological significant obstruction of the renal collecting system is suspected. At the time of discharge, the patient has finished her IV antibiotics per Infectious Disease recommendation. Her wound is improving. Her suprapubic catheter is in place and draining. She is tolerating her tube feed. She will discharge home with vitamins for wound healing. She will follow up with Urology, Primary Care, Hematology, Gastroenterology and Surgery in 1 to 2 weeks. She was advised to use Osmolite 1.2 one can t.i.d. with 150 mL free water q.8 hours as she has had a PEG tube before, the patient and family understand how to care for the tube. At the time of discharge, vital signs are stable, the patient afebrile. The patient is feeling much better and excited to discharge home. Dictated by Emely Hamlin NP MD MARIAH Duckworth/SULMA /[id number]
--- NOTE | 2020-02-24 01:32 | Operative Report ---
DATE OF PROCEDURE: 02/21/2020 SURGEON: Logan Hernandez MD PREOPERATIVE DIAGNOSES: 1. Chronic urinary retention. 2. Complicated urinary tract infections. 3. Hematuria. POSTOPERATIVE DIAGNOSES: 1. Chronic urinary retention. 2. Complicated urinary tract infections. 3. Hematuria. 4. Atrophic (senile) vaginitis. 5. Destroyed urethra. OPERATION PERFORMED: 1. Pelvic examination under anesthesia. 2. Extremely complicated cystoscopy with bilateral ureteral catheterization and retrograde ureteropyelography. 3. Interpretation of retrograde ureteropyelography. 4. Cystotomy and cystostomy (separate procedure performed for the chronic urinary retention). 5. Cystography interpretation. 6. Supervision of fluoroscopy, no radiologist present. ANESTHESIA: General. COMPLICATIONS: None. CLINICAL SUMMARY: Ana Guzman is an extremely complicated 59-year-old woman, who is very sick. It was very unfortunate, she has urinary retention and need a suprapubic cystostomy. She also has microhematuria and urinary tract infection that has been treated and followup culture was negative. The patient is brought to the operating room in hopes of achieving the goals of establishing a suprapubic cystostomy. We also are concerned about the patient's hydronephrosis and trying to evaluate that as well. She is aware of the risks of bleeding, infection, injury to adjacent structures, need for additional procedures and elected to proceed. This is not an elective procedure. This is a female patient, who has had complicated infections and needs a suprapubic cystostomy despite the COVID-19 emergency situation. The patient has already had damage from a chronic Araiza catheter. We intend to arrest the progression of this damage. PROCEDURE IN DETAIL: Informed consent was verified. Ana Guzman was properly identified, taken to the operating room, placed on a cystoscopy table. Anesthesia was uneventfully begun. The patient's hips and knees were virtually frozen and it was impossible to place her in the dorsal lithotomy position. Therefore, we placed pads on top of the stirrups and the patient's legs were virtually straight, except for a very small gap that we were able to accomplish between the legs. Her abdomen and genitalia were then prepared and draped in usual sterile fashion. Examination under anesthesia revealed that the patient's vagina was a large cavity following resection of her cancer. The patient's urethra was completely destroyed. Upon examination, one could see directly onto the bladder neck region. We placed the cystoscope into the bladder neck and cystoscopy revealed erythema with no suspicious lesions and no tumors. The ureteral catheter was used to cannulate each ureter and retrograde ureteropyelography was performed. Interpretation of retrograde ureteropyelography contrast was instilled in retrograde fashion bilaterally. There were no tumors. There were no stones or no diverticula. There was tortuosity of both ureters. Air was introduced during retrograde pyelograms. No suspicious lesions. The right kidney exhibited some degree of hydronephrosis and slow to drain. There was ureterectasis on the right-hand side all the way down to the urethrovesical junction, but drainage was seen fluoroscopically, although delayed. We utilized a modified Kannan sound with a hole drilled transversely near its tip. We inserted into the patient's bladder neck and bladder and tented the anterior bladder wall to the abdominal wall. We then infiltrated with Marcaine, with epinephrine for postop pain control. We made a small stab wound and then cut down with electrocautery onto the sound. This allowed to place the sound through this incision and through the abdominal wall to the suprapubic area. We then tied a 20-Sammarinese Araiza catheter to the sound and brought the sound back out of the urethral bladder neck region, cut the string and then retracted the Araiza back until it was in the bladder, inflated it with 10 mL of water, and then brought against the anterior bladder wall. We then utilized two separate 2-0 nylon sutures to secure the suprapubic cystostomy to the abdominal wall. We irrigated the catheter and it seemed to irrigate properly. Interpretation of cystography, contrast was then inserted through the suprapubic cystostomy. The Araiza catheter balloon was placed in the bladder. The bladder was very small capacity. Upon filling, one could see drainage of contrast into the vaginal area and it was impossible to research food technologist reflux on the study. The patient's bladder was drained. Sterile dressings were applied. The patient was uneventfully reversed from anesthesia and taken to recovery room in stable. There were no complications to the procedure. The patient tolerated the procedure well. PLAN: We will observe the patient during this hospitalization and follow her up in approximately 5 weeks to change suprapubic cystostomy in the office. Logan MD SONAM Hernandez/SULMA /[id number]
--- NOTE | 2020-02-24 09:37 | Progress Note ---
DATE: 02/21/2020 SUBJECTIVE: The patient is seen and examined today. The patient appeared comfortable. No worsening event noted. Clinical condition is improving. The patient is scheduled for suprapubic catheter. On antibiotic. OBJECTIVE: GENERAL: Alert, awake, communicative. HEENT: Normocephalic, atraumatic. Sclerae pink. Conjunctiva clear. NECK: Supple. CHEST: Decreased breath sounds in the bases. ABDOMEN: Soft. EXTREMITIES: No edema. LABS AND IMAGING: Reviewed. ASSESSMENT: The patient with history of multiple medical conditions including the following: The patient with anemia of chronic disease. 1. Current hemoglobin is staying stable and clinically doing better. 2. Recommendation to continue to monitor hemoglobin very closely. We will follow. Sepsis. 1. Patient is following IV. 2. Currently on antibiotic treatment. 3. Continue current care. Chronic catheterization. 1. Patient is following by urologist. 2. She is scheduled for suprapubic catheter. Pulmonary embolism. 1. Normal on anticoagulation. 2. Monitor conservatively. 3. We will continue remaining care. We will follow the patient. MD GAVIN Banegas/SULMA /[id number]
--- NOTE | 2020-02-24 09:53 | Discharge Summary ---
ADMISSION DIAGNOSES: Urinary tract infection with septic shock; aspiration pneumonia present on admission with septic shock; past medical history of PE; vulvar cancer with stage IV decubitus ulcer, present on admission; anemia of chronic disease secondary to vulvar cancer plus hematuria; hypokalemia; hematuria; underweight with a BMI of 17.5; and sacral decubitus stage IV, present on admission. DISCHARGE DIAGNOSES: Urinary tract infection with septic shock; aspiration pneumonia present on admission with septic shock; past medical history of PE; vulvar cancer with stage IV decubitus ulcer, present on admission; anemia of chronic disease secondary to vulvar cancer plus hematuria; hypokalemia; hematuria; underweight with a BMI of 17.5; and sacral decubitus stage IV, present on admission; VRE and E coli of the urine present on admission; E coli strep Gamma-hemolytic and Enterococcus bacteremia present on admission plus pneumomediastinum with possible esophageal tear or gastric bypass leak. HISTORY: Vulvar cancer, PE, chronic indwelling Araiza, IVC filter, and asthma. SURGICAL HISTORY: Cholecystectomy, gastric bypass, vulvectomy, PEG with removal, x1, and colostomy. FAMILY HISTORY: The patient's mom had diabetes. The patient's mom and sisters have cancer. SOCIAL HISTORY: Noncontributory. HOSPITAL COURSE: 59-year-old female admits with complaints of shaking, AMS and a temperature of a 100.8 yesterday per daughter's report. The patient has had poor p.o. intake secondary to vulvar cancer and pulled out her PEG 2 months ago. She eats p.o., but does not eat much and has nausea. The patient and family want PEG placed. On admission, the patient was in septic shock due to UTI and aspiration pneumonia. She was started on vancomycin, cefepime, given IV bolus and Levophed. Surgery, SOLAR SALES ENERGY ADVISOR, Hematology, Critical Care and GI were all consulted. Chest x-ray on admission showed mild patchy left basilar opacity which may represent atelectasis or infection. Patchy opacity in the right mid lung. 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 Echo showed an EF of 55%. Urine culture came back positive for E coli and VRE and blood culture came back positive for E coli, Enterococcus and strep, Gamma-hemolytic. The modified barium swallow showed no evidence of aspiration, but due to poor intake, a PEG was planned. After the pneumomediastinum was found and due to the history of bypass, Surgery and IR DICTATION ENDS HERE Dictated by Emely Hamlin, FELISA Aron Bassett MD MARIAH/MODL /[id number]
--- NOTE | 2020-02-25 12:24 | NUR ---
CALL RECEIVED FROM [facility] 02/24/2020 STATING THEY WERE NOT IN NETWORK W THE PT'S INSURANCE FOR FEEDING SUPPLIES. CALL RECEIVED FROM DAINA RUSSO; [phone], INQUIRING ABOUT FEEDING SUPPLIES. INFORMED REFERRAL NEEDED TO BE SENT TO ANOTHER DME CO. IN NETWORK. REFERRAL WAS FAXED TO [facility] @ OFF: [phone] / FAX: [phone].
== END 2020-02-22 16:56 | disposition home health service (06) | DRG 981 ==
LOC: ER 22:15 → ERHOLD 02-08 01:03 → ICU 02-08 01:47 → MED/SURG3 02-14 12:02
PROVIDERS: ADMIT Internal Medicine; ATTEND Internal Medicine
PROC: 02HV33Z Insertion of Infusion Device into Superior Vena Cava, Percutaneous Approach (ICD-10-PCS; 2020-02-08)
PROC: B548ZZA Ultrasonography of Superior Vena Cava, Guidance (ICD-10-PCS; 2020-02-08)
PROC: 3E043XZ Introduction of Vasopressor into Central Vein, Percutaneous Approach (ICD-10-PCS; 2020-02-08)
PROC: 30233N1 Transfusion of Nonautologous Red Blood Cells into Peripheral Vein, Percutaneous Approach (ICD-10-PCS; 2020-02-08)
PROC: 3E0436Z Introduction of Nutritional Substance into Central Vein, Percutaneous Approach (ICD-10-PCS; 2020-02-11)
PROC: 30233N1 Transfusion of Nonautologous Red Blood Cells into Peripheral Vein, Percutaneous Approach (ICD-10-PCS; 2020-02-12)
PROC: 30233L1 Transfusion of Nonautologous Fresh Plasma into Peripheral Vein, Percutaneous Approach (ICD-10-PCS; 2020-02-18)
PROC: 30233K1 Transfusion of Nonautologous Frozen Plasma into Peripheral Vein, Percutaneous Approach (ICD-10-PCS; 2020-02-18)
PROC: 0DH60UZ Insertion of Feeding Device into Stomach, Open Approach (ICD-10-PCS; 2020-02-19)
PROC: 0DP60UZ Removal of Feeding Device from Stomach, Open Approach (ICD-10-PCS; principal; 2020-02-19 12:30)
PROC: BT141ZZ Fluoroscopy of Kidneys, Ureters and Bladder using Low Osmolar Contrast (ICD-10-PCS; 2020-02-21)
PROC: 0T9C80Z Drainage of Bladder Neck with Drainage Device, Via Natural or Artificial Opening Endoscopic (ICD-10-PCS; 2020-02-21)
DX: T83.511A Infection and inflammatory reaction due to indwelling urethral catheter, initial encounter (principal); L89.894 Pressure ulcer of other site, stage 4; L89.154 Pressure ulcer of sacral region, stage 4; J69.0 Pneumonitis due to inhalation of food and vomit; R65.21 Severe sepsis with septic shock; A41.51 Sepsis due to Escherichia coli [E. coli]; D61.2 Aplastic anemia due to other external agents; E43 Unspecified severe protein-calorie malnutrition; A40.8 Other streptococcal sepsis; Z68.1 Body mass index [BMI] 19.9 or less, adult; N13.30 Unspecified hydronephrosis; E87.1 Hypo-osmolality and hyponatremia; N10 Acute pyelonephritis; Z16.22 Resistance to vancomycin related antibiotics; M86.68 Other chronic osteomyelitis, other site; K91.2 Postsurgical malabsorption, not elsewhere classified; N30.41 Irradiation cystitis with hematuria; J98.2 Interstitial emphysema; I48.91 Unspecified atrial fibrillation; K21.9 Gastro-esophageal reflux disease without esophagitis; F32.9 Major depressive disorder, single episode, unspecified; Z93.3 Colostomy status; Z90.49 Acquired absence of other specified parts of digestive tract; Z98.84 Bariatric surgery status; Z82.49 Family history of ischemic heart disease and other diseases of the circulatory system; Z83.3 Family history of diabetes mellitus; Z80.9 Family history of malignant neoplasm, unspecified; Z87.891 Personal history of nicotine dependence; Z86.711 Personal history of pulmonary embolism; Z79.01 Long term (current) use of anticoagulants; C51.9 Malignant neoplasm of vulva, unspecified; D63.8 Anemia in other chronic diseases classified elsewhere; E87.6 Hypokalemia; Z95.828 Presence of other vascular implants and grafts; E83.51 Hypocalcemia; N31.9 Neuromuscular dysfunction of bladder, unspecified; B95.4 Other streptococcus as the cause of diseases classified elsewhere; B95.2 Enterococcus as the cause of diseases classified elsewhere; N95.2 Postmenopausal atrophic vaginitis; K20.9 Esophagitis, unspecified; N39.498 Other specified urinary incontinence; E83.42 Hypomagnesemia; E83.39 Other disorders of phosphorus metabolism
CPT/HCPCS: 36415; 36555; 71045; 71260; 74176; 74177; 74230; 74420; 74470; 78708; 80048; 80053; 80202; 81001; 82550; 82553; 82607; 82728; 82746; 82948; 83036; 83518; 83540; 83605; 83735; 84100; 84443; 84466; 84484; 85025; 85045; 85610; 85730; 86850; 86900; 86920; 87040; 87070; 87071; 87086; 87186; 87205; 87400; 87635; 93005; 93306; 96366; 97139; 99251; 99285; A9562; J0360; J1100; J1170; J1756; J1940; J2001; J2250; J2370; J2405; J3010; J3370; J3475; J3480; J7030; J7050; J7799; P9016; P9017; Q9963; Q9967

== ENCOUNTER 2020-03-03 22:42 | Inpatient (IN) | payer OTHER ==
[~2020-03-03] VITALS: Ht 170.2 cm; Wt 46.0 kg
[~2020-03-03 22:42] MED LIST: Calcium Carbonate PO; ELIQUIS5 MG PO; Folic Acid PO; GABAPENTIN100 MG PO; MAG-OXIDE400 MG PO; OXYBUTYNIN CHLOR5 MG PO; PANTOPRAZOLE SO40 MG PO; PROAIR HFA INH8.5 GM IH; SUCRALFATE1 GM PO; ZINC SULFATE220 M1 PO; ZOLOFT50 MG PO
--- OUTSIDE RECORDS SUMMARY | 2020-03-03 22:50 | XMS REPORT ---
Author Author [facility] t Organization [facility] Address [address] [place] [address] Phone Unavailable Care Team Providers Care Marketing Account Manager Name Role Phone NO, PCP PCP Unavailable DARRYN BECKMAN Attphys Unavailable DARRYN BECKMAN Taras Unavailable Payers Payer Name Policy Type Policy Number Effective Date Expiration Date [employer] [id number] 2019 00:00:00 [facility] Advance Directives Directive Decision Effective Date Termination Date Comments Sour ce Yes N/A [facility] Problems Condition Name Condition Details Condition Category Status Onset Date Resolution Date Last Treatment Date Treating Clinician Comments Source Septic shock Problem [facility] Urinary tract infection Problem [facility] Fever Problem [facility] Araiza catheter in place prior to arrival Problem [facility] Allergies, Adverse Reactions, Alerts Allergy Name Allergy Type Status Severity Reaction(s) Onset Date Inacti ve Date Treating Clinician Comments Source No Known Allergies DA Active U 2019-05-06 00:00:00 [facility] No Known Allergies DA Active U 2019-03-09 00:00:00 [facility] No Known Allergies DA Active U 2018-11-30 00:00:00 [facility] No Known Allergies DA Active U 2018-07-30 00:00:00 [facility] No Known Allergies DA Active U 2018-07-27 00:00:00 [facility] No Known Allergies DA Active U 2017-08-25 00:00:00 [facility] No Known Allergies DA Active U 2017-05-10 00:00:00 [facility] Social History Social Habit Start Date Stop Date Quantity Comments Source Sex Assigned At 1960 00:00:00 1960 00:00:00 Female [facility] Medications Ordered Medication Name Filled Medication Name Start Date Stop Da te Current Medication? Ordering Clinician Indication Dosage Frequency Signature (SIG) Comments Components Source Calcium Carbonate Calcium Carbonate 2020-02-22 10:31:00 Yes 500 [facility] Folic Acid Folic Acid 2020-02-22 10:31:00 Yes 1 [facility] Magnesium Oxide (Mag-Oxide) 400 Mg TABLET Magnesium Ox michele (Mag-Oxide) 400 Mg TABLET 2020-02-22 10:31:00 Yes 400 [facility] Oxybutynin Chloride Oxybutynin Chloride 2020-02-22 10:31:00 Yes 5 [facility] Zinc Sulfate Zinc Sulfate 2020-02-22 10:31:00 Yes 220 [facility] Albuterol Sulfate (Proair Hfa Inhaler*) 8.5 Gm INH Alb uterol Sulfate (Proair Hfa Inhaler*) 8.5 Gm INH Yes [facility] Apixaban (Eliquis) 5 Mg TABLET Apixaban (Eliquis) 5 Mg TABLET Yes 5 [facility] Gabapentin Gabapentin Yes 100 [facility] Pantoprazole Sodium (Protonix) 40 Mg TABLET. Pantopr azole Sodium (Protonix) 40 Mg TABLET. Yes 40 [facility] Sertraline Hcl (Zoloft) 50 Mg TABLET Sertraline Hcl (Zoloft) 50 Mg TABLET Yes 100 [facility] Sucralfate Sucralfate Yes 1 [facility] Vital Signs Vital Name Observation Time Observation Value Comments Source Body Temperature 2020-02-22 12:56:00 98.1 [degF] [facility] BMI (Body Mass Index) 2020-02-22 01:54:00 17.1 kg/m2 [facility] Weight 2020-02-20 00:35:00 109 [lb_av] [facility] Procedures Procedure Date / Time Performed Performing Clinician [facility] trae CT of abdomen and pelvis without contrast 2020-02-10 00:00:00 [facility] Computed tomography of abdomen and pelvis with contrast 00:00:00 [facility] Computed tomography of chest with contrast 2020-02-08 00:00:00 [facility] Plan of Care Planned Activity Planned Date Details Comments Source Goal Patient referral [code = 0604107 ] [facility] Goal Patient referral [code = 8272099 ] [facility] Goal Patient referral [code = 6081161 ] [facility] Goal Patient referral [code = 4232017 ] [facility] Instructions Urinary Tract Infection - Women [facility] Instructions Wound Care (General) [facility] Encounters Start Date/Time End Date/Time En[facility] ID Source 2020-02-08 01:03:00 2020-02-22 16:56:00 Discharged Inpatient 1 DARRYN BECKMAN [facility] [id number] [facility] 2020-01-31 16:38:00 2020-01-31 19:53:00 Departed Emergency Room [facility] [id number] [facility] Results Test Description Test Time Test Comments Results Result Comments Source Blood leukocytes automated count (number/volume) 2020-02-22 05:44:00 Test Item White Blood Count (test code = 6690-2) 9.28 [facility] automated count (number/volume)2020-02-22 05:44:00* Test Item Value Reference Range Interpretation Comments Red Blood Count (test code = 789-8) 3.03 [facility] hemoglobin measurement (moles/volume)2020-02-22 05:44:00* Test Item Value Reference Range Interpretation Comments Hemoglobin (test code = 93002-0) 9.3 [facility] HospitalAutomated blood hematocrit (volume fraction)2020-02-22 05:44:00* Test Item Value Reference Range Interpretation Comments Hematocrit (test code = 4544-3) 29.8 [facility] HospitalAutomated erythrocyte mean corpuscular hbmlqf5947-28-98 05:44:00* Test Item Value Reference Range Interpretation Comments Mean Corpuscular Volume (test code = 787-2) 98.3 [facility] erythrocyte mean corpuscular hemoglobin (mass per erythrocyte)2020-02-22 05:44:00* Test Item Value Reference Range Interpretation Comments Mean Corpuscular Hemoglobin (test code = 785-6) 30.7 [facility] HospitalAutomated erythrocyte mean corpuscular hemoglobin concentration measurement (mass/volume)2020-02-22 05:44:00* Test Item Value Reference Range Interpretation Comments Mean Corpuscular Hemoglobin Concent (test code = 786-4) 31.2 [facility] HospitalRDW VzbXs-Uhh2490-74-09 05:44:00* Test Item Value Reference Range Interpretation Comments Red Cell Distribution Width (test code = 85560-1) 15.8 [facility] HospitalAutom[facility] blood platelet count (count/volume)2020-02-22 05:44:00* Test Item Value Reference Range Interpretation Comments Platelet Count (test code = 777-3) 347 [facility] HospitalAutomated blood segmented neutrophil count as percentage of total mnwmxhoumm2013-38-43 05:44:00* Test Item Value Reference Range Interpretation Comments Neutrophils (%) (Auto) (test code = 12991-9) 72.4 [facility] HospitalAutomated blood lymphocyte count as percentage ot total usiyecrdgb3680-39-78 05:44:00* Test Item Value Reference Range Interpretation Comments Lymphocytes (%) (Auto) (test code = 736-9) 14.9 [facility] HospitalAutomated blood monocyte count as percentage of total gqybagribs6644-87-09 05:44:00* Test Item Value Reference Range Interpretation Comments Monocytes (%) (Auto) (test code = 5905-5) 8.8 [facility] HospitalAutomated blood eosinophil count as percentage of total iojgbdzcbv3623-32-02 05:44:00* Test Item Value Reference Range Interpretation Comments Eosinophils (%) (Auto) (test code = 713-8) 2.5 [facility] HospitalAutom[facility] blood basophil count as percentage of total pxixibfpzg9517-74-95 05:44:00* Test Item Value Reference Range Interpretation Comments Basophils (%) (Auto) (test code = 706-2) 0.5 [facility] HospitalFluoroscopic procedure less than one hour tifcshbk1707-13-94 05:44:00* Test Item Value Reference Range Interpretation Comments IM GRANULOCYTES % (test code = IM GRANULOCYTES %) 0.9 [facility] HospitalAutomated blood neutrophil count 2020-02-22 05:44:00* Test Item Value Reference Range Interpretation Comments Neutrophils # (Auto) (test code = 751-8) 6.7 [facility]Blood lymphocytes count (number/volume) 2020-02-22 05:44:00* Test Item Value Reference Range Interpretation Comments Lymphocytes # (Auto) (test code = 56633-3) 1.4 [facility] HospitalBlood monocytes automated count (number/volume)2020-02-22 05:44:00* Test Item Value Reference Range Interpretation Comments Monocytes # (Auto) (test code = 742-7) 0.8 [facility] HospitalAutomated blood eosinophil count 2020-02-22 05:44:00* Test Item Value Reference Range Interpretation Comments Eosinophils # (Auto) (test code = 711-2) 0.2 [facility] HospitalAutomated blood basophil count (count/volume)2020-02-22 05:44:00* Test Item Value Reference Range Interpretation Comments Basophils # (Auto) (test code = 704-7) 0.1 [facility] HospitalFluoroscopic procedure less than one hour rzblahhx8863-82-03 05:44:00* Test Item Value Reference Range Interpretation Comments Absolute Immature Granulocyte (auto (gem t code = Absolute Immature Granulocyte (auto) 0.08 [facility] sodium measurement (moles/volume)2020-02-22 05:44:00* Test Item Value Reference Range Interpretation Comments Sodium Level (test code = 2951-2) 139 [facility] or plasma potassium measurement (moles/volume)2020-02-22 05:44:00* Test Item Value Reference Range Interpretation Comments Potassium Level (test code = 2823-3) 3.3 [facility] plasma chloride measurement (moles/volume)2020-02-22 05:44:00* Test Item Value Reference Range Interpretation Comments Chloride Level (test code = 2075-0) 106 [facility] or plasma carbon dioxide, total measurement (moles/volume)2020-02-22 05:44:00* Test Item Value Reference Range Interpretation Comments Carbon Dioxide Level (test code = 2028-9) 27 [facility]um or plasma anion npx6436-20-40 05:44:00* Test Item Value Reference Range Interpretation Comments Anion Gap (test code = 35291-3) 9.3 [facility] or plasma urea nitrogen measurement (mass/volume)2020-02-22 05:44:00* Test Item Value Reference Range Interpretation Comments Blood Urea Nitrogen (test code = 3094-0) 15 [facility]um or plasma creatinine measurement (mass/volume)2020-02-22 05:44:00* Test Item Value Reference Range Interpretation Comments Creatinine (test code = 2160-0) 0.47 [facility]um or plasma urea nitrogen/creatinine mass shyiu5858-71-28 05:44:00* Test Item Value Reference Range Interpretation Comments BUN/Creatinine Ratio (test code = 3097-3) 32 [facility] HospitalEstimated glomerular filtration rate (GFR) orspkvazyzqxa5677-62-96 05:44:00* Test Item Value Reference Range Interpretation Comments Estimat Glomerular Filtration Rate (test code = 286841158) > 60 [facility] HospitalGlucose umsgetamogd2803-29-42 05:44:00* Test Item Value Reference Range Interpretation Comments Glucose Level (test code = RET2067) 87 [facility] or plasma calcium measurement (mass/volume)2020-02-22 05:44:00* Test Item Value Reference Range Interpretation Comments Calcium Level (test code = 60517-0) 9.4 [facility] or plasma magnesium measurement (mass/volume)2020-02-22 05:44:00* Test Item Value Reference Range Interpretation Comments Magnesium Level (test code = 27372-7) 1.4 [facility] HospitalRENAL SCAN W/GRUPQ3868-67-38 18:23:00 [facility] [address] [address] Patient Name: OLEG STEINER MR #: [id number] : 1960 Age/Sex: 59/F Req #: [id number] Adm Physician: DARRYN BECKMAN MD Ordered by: SHAYY SOMMER MD Report #: [id number] Location: MED/SURG3 Room/Bed: [facility] Procedure: [id number] NM/RENAL SCAN W /LASIX Exam Date: 02/21/20 Exam Time: 1500 REPORT STATUS: Signed Renal Scan with Las ix Washout Clinical information: Fever; sepsis. UTI diagnosed 7 days ago. Has colostomy and indwelling Araiza catheter as well as sacral decubitus. Comparison: No prior nuclear renal scan; CT abdomen 02/09/2020 Technique: F ollowing intravenous administration of 10 mCi of Tc-99m MAG3, dynamic images o f the kidneys in the posterior projection were obtained through 40 minutes. L asix 40 mg was administered intravenously at 10 minutes post injection of the tracer. Report: Left kidney: Perfusion of the left kidney is prompt. The kidney has a reniform shape. Extraction of tracer from the blood pool is mildly decreased. Clearance of tracer from the renal parenchyma begins prompt ly but is not complete by the end of the study. The pelvicalyceal system is n ot dilated. No increased pooling of tracer is seen within the pelvicalyceal s ystem. Drainage of tracer from the pelvicalyceal system prior to administrati on of Lasix is prolonged, related to the impaired function of the kidney. Was hout of tracer from the pelvicalyceal system is not applicable because no incr eased pooling of tracer is seen in the renal collecting system. No stasis of tracer is seen within the left ureter. Right kidney: Perfusion to the rig ht kidney is prompt. The right kidney has a mildly elongated reniform shape. Very mild thinning of the renal parenchyma is noted. Extraction of tracer by the renal parenchyma is mildly decreased. Clearance of tracer from the renal parenchyma begins promptly but is not complete by the end of the study. The p elvicalyceal system is not dilated. Minimal pooling of tracer is seen within the pelvicalyceal system. Drainage of tracer from the pelvicalyceal system pr ior is prolonged, related to impaired function of the kidney. Washout of trac er from the pelvicalyceal system is not applicable because no increased poolin g of tracer is seen in the renal collecting system. No stasis of tracer is see n within the right ureter. Differential renal function: The left kidney con tributes 47% of total renal function and the right kidney contributes 53% (nor mal 43-57%). Impression: 1. The left kidney shows moderately severe m edical renal disease. No hydronephrosis is present. The Lasix washout method to evaluate obstruction is not applicable because of the poor renal function, however, no physiologically significant obstruction of the renal collecting s ystem is suspected. 2. The right kidney shows moderately severe medical jaden al disease. Mild hydronephrosis is suspected evidenced by mild thinning of th e renal cortex although the function of the kidney is too impaired to fill the pelvicalyceal system to near capacity. The Lasix washout method to evaluate o bstruction is not applicable because of the poor renal function, however, no p hysiologically significant obstruction of the renal collecting system is suspe cted. Signed by: Dr. Mari Rodriguez M.D. on 02/21/2020 6:46 PM Dictat ed By: MAIR RODRIGUEZ MD 45 Transcribed By: SIVAKUMAR on 02/21/201845 COPY TO: SHAYY SOMMER MD Capillary blood glucose measurement by glucometer (mass/volume)2020-02-21 11:11:00* Test Item Value Reference Range Interpretation Comments Bedside Glucose (test code = 02031-8) 105 [facility] FZFLLTPQP0733-53-88 11:05:00 [facility] [address] [address] Patient Name: OLEG STEINER MR #: [id number] : 1960 Age/Sex: 59/F Req #: [id number] Adm Physician: DARRYN BECKMAN MD Ordered by: SHAYY SOMMER MD Report #: [id number] Location: MED/SURG3 Room/Bed: 291-1 Procedure: [id number] DX/RETROGRADE P YELOGRAM Exam Date: 02/21/20 Exam Time: 07 REPORT STATUS: Signed OR Fluoroscopy: IMPRESSION: Fluoroscopy service provided in the OR. Interpretation not req uested. Signed by: Reza George MD on 02/21/2020 11:05 AM Dictated B y: REZA GEORGE MD 110 Transcribed By: SIVAKUMAR on 02/21/20 1105 COPY TO: SHAYY SOMMER MD Serum or plasma total bilirubin measurement (mass/volume)2020-02-21 05:40:00* Test Item Value Reference Range Interpretation Comments Total Bilirubin (test code = 1975-2) 0.3 [facility] HospitalFluoroscopic procedure less than one hour mugnlmtl2181-95-38 05:40:00* Test Item Value Reference Range Interpretation Comments Aspartate Amino Transf (AST/SGOT) (test code = Aspartate Amino Transf (AST/SGOT)) 16 [facility] plasma alanine aminotransferase measurement (enzymatic activity/volume)2020-02-21 05:40:00* Test Item Value Reference Range Interpretation Comments Alanine Aminotransferase (ALT/SGPT) (test code = 1742-6) 11 [facility] or plasma protein measurement (mass/volume)2020-02-21 05:40:00* Test Item Value Reference Range Interpretation Comments Total Protein (test code = 2885-2) 6.3 [facility] plasma albumin measurement (mass/volume)2020-02-21 05:40:00* Test Item Value Reference Range Interpretation Comments Albumin (test code = 1751-7) 1.9 [facility] HospitalPlasma globulin measurement (mass/volume) 2020-02-21 05:40:00* Test Item Value Reference Range Interpretation Comments Globulin (test code = 21053-1) 4.4 [facility] or plasma albumin/globulin mass lovff1405-42-13 05:40:00* Test Item Value Reference Range Interpretation Comments Albumin/Globulin Ratio (test code = 1759-0) 0.4 [facility] or plasma alkaline phosphatase measurement (enzymatic activity/volume)2020-02-21 05:40:00* Test Item Value Reference Range Interpretation Comments Alkaline Phosphatase (test code = 6768-6) 64 [facility] HospitalPhosphorus ewaknnohwsq1093-09-68 05:20:00 * Test Item Value Reference Range Interpretation Comments Phosphorus Level (test code = JUW7973) 2.5 [facility] HospitalProthrombin time (PT) in platelet poor plasma by coagulation iofnz8319-17-59 23:09:00* Test Item Value Reference Range Interpretation Comments Prothrombin Time (test code = 5902-2) 14.3 [facility] HospitalINR in Platelet poor plasma by Coagulation bfuaw9213-39-82 23:09:00* Test Item Value Reference Range Interpretation Comments Prothromb Time International Ratio (test code = 6301-6) 1.05 [facility] HospitalFluoroscopic procedure less than one hour iglzzaed6969-76-37 05:10:00* Test Item Value Reference Range Interpretation Comments Differential Total Cells Counted (test code = Differyesica tial Total Cells Counted) 100 [facility] blood neutrophils/100 leukocytes 2020-02-13 05:10:00* Test Item Value Reference Range Interpretation Comments Neutrophils % (Manual) (test code = 09173-4) 77 [facility] blood lymphocytes/100 leukocytes 2020-02-13 05:10:00* Test Item Value Reference Range Interpretation Comments Lymphocytes % (Manual) (test code = 737-7) 19 [facility] blood monocytes/100 leukocytes 2020-02-13 05:10:00* Test Item Value Reference Range Interpretation Comments Monocytes % (Manual) (test code = 744-3) 2 [facility] HospitalManual blood eosinophil count as percentage of total zgtjrliiqp2555-89-78 05:10:00* Test Item Value Reference Range Interpretation Comments Eosinophils % (Manual) (test code = 714-6) 1 [facility] HospitalManual blood myelocytes/100 leukocytes 2020-02-13 05:10:00* Test Item Value Reference Range Interpretation Comments Myelocytes % (test code = 749-2) 1 [facility] HospitalBlood platelets count by estimate (number/volume)2020-02-13 05:10:00* Test Item Value Reference Range Interpretation Comments Platelet Estimate (test code = 24657-0) ADEQUATE [facility] HospitalPlatelet edpttlzfql3745-53-49 05:10:00* Test Item Value Reference Range Interpretation Comments Platelet Morphology Comment (test code = 69324-6) NORMAL [facility] anisocytosis detection by light vktpqxljpr1570-04-74 05:10:00* Test Item Value Reference Range Interpretation Comments Anisocytosis (test code = 702-1) SLIGHT [facility] HospitalRB pqwpeakmhw8760-67-68 05:10:00* Test Item Value Reference Range Interpretation Comments Red Cell Morphology Comment (test code = 6742-1) [facility] ojqpvlo4802-47-09 16:50:00* Test Item Value Reference Range Interpretation Comments Blood Culture (test code = 99835673) NO GROWTH AFTER 5 DAYS, FINAL REPORT [facility] HospitalMODIFIED BA. KMKQZET5183-65-96 09:39:00 [facility] [address] [address] Patient Name: OLEG STEINER MR #: [id number] : 1960 Age/Sex: 59/F Req #: [id number] Adm Physician: DARRYN BECKMAN MD Ordered by: Denis Johnson NP Report #: [id number] Location: ICU Room/Bed: ICU 189-1 Procedure: [id number] DX/MODIFIED BA. SWALLOW Exam Date: 02/10/20 Exam Time: 1230 REPORT STATUS: Signed EXAM: MODIFIED BA. SWALLOW DATE: 02/10/2020 12:00 AM INDICATION: Aspiration Fluoroscopy Time: 1.5 min. Reference Air Kerma (Ka, r): 3.97 mGy. FINDI NGS/IMPRESSION: Modified barium swallow was performed by the speech patholo gist. The radiologist was not present for the examination. Provided images dem onstrate no evidence for subglottic tracheal aspiration. Please refer to [facility] pathology notes for further details. Signed by: Dr. Steve Wong MD on 02/11/2020 9:41 AM Dictated By: STEVE WONG MD 0 Transcribed By: SIVAKUMAR on 02/11/20940 COPY TO: DENIS JOHNSON CHEMIST PHARMACEUTICAL CHEST SINGLE (PORTABLE)2020-02-11 09:22:[address] [address] Patient Name: OLEG STEINER MR #: [id number] : 1960 Age/Sex: 59/F Req #: [id number] Adm Physician: DARRYN BECKMAN MD Ordered by: QUENTIN FARIA MD Report #: [id number] Location: ICU Room/Bed: ICU 189-1 Procedure: [id number] DX/CHEST SINGL E (PORTABLE) Exam Date: 02/11/20 Exam Time: 0820 REPORT STATUS: Signed EXAM: CHEST SINGLE (PORTABLE) DATE: 02/11/2020 8:20 AM INDICATION: Sepsis, fever, pneumonia COMPARISON: 02/10/2020 FINDINGS/IMPRESSION: Left subclav graciela chest port identified in stable position. Right IJ central venous catheter tip again terminating over the SVC. The previously identified opacity with in the left upper lobe is no longer visualized and likely represents resolutio n of atelectasis. There is no evidence for new large focal consolidation, pneu mothorax, or significant pleural effusion. The cardiomediastinal silhoue tte is stable in appearance. No acute osseous abnormalities identified. Signed by: Dr. Steve Wong MD on 02/11/2020 9:26 AM Dictated By: STEVE WONG MD 5 Tr anscribed By: SIVAKUMAR on 02/11/20925 COPY TO: QUENTIN FARIA MD CT ABDOMEN/PELVIS [id number] 20:41:00 [address] [address] Patient Name: OLEG STEINER MR #: [id number] : 1960 Age/Sex: 59/F Req #: [id number] Adm Physician: DARRYN BECKMAN MD Ordered by: JOSE ANGEL LEDEZMA MD Report #: [id number] Location: ICU Room/Bed: ICU [facility] Procedure: [id number] CT /CT ABDOMEN/PELVIS WO Exam Date: 02/10/20 Exam Time: 1944 REPORT STATUS: Signed EXAM: CT Abdomen and Pelvis without contrast INDICATION:POSSIBLE ESOPHAGEAL CAROLYN AREN LEAKAGE COMPARISON: CT abdomen pelvis dated 02/09/2020. TECHNIQUE: Abdomen and pelvis were scanned without administration of IV contrast. Coronal and sagittal reformations were obtained. ORAL CONTRAST: Yes RADIATION DOSE: Total DLP: 234.48 mGy*cm Estimated effective dose: (DLP x 0.015 x size factor) mSv COMPLICATIONS: Non e FINDINGS: LINES and TUBES: Araiza catheter within the urinary bladder . LOWER THORAX: Small bilateral pleural effusions with associated atelecta sis, unchanged. Partially visualized pneumomediastinum surrounding the distal esophagus appears decreased when compared to 02/08/2020. HEPATOBILIARY: No focal hepatic lesions. No biliary ductal dilation. GALLBLADDER: Chol ecystectomy. SPLEEN: No splenomegaly. PANCREAS: No focal masses or du ctal dilatation. ADRENALS: No adrenal nodules KIDNEYS/URETERS: M oderate right hydroureteronephrosis without visualized calcified stone, unchan ged. Mild left hydroureteronephrosis without visualized stone or obstructing m ass, unchanged. No cystic or solid mass lesions. No stones. GI TRACT: St able gastric bypass postsurgical changes. There is mild soft tissue thickening of the distal esophagus and proximal stomach at the surgical site. No definite evidence of leak is seen. Partial left hemicolectomy. There is a colon os winter within the anterior pelvic wall slightly to the left of midline. There is no obstruction. PELVIC ORGANS/BLADDER: Status post vulvectomy. The urina ry bladder is moderately distended with Araiza catheter in place. The uterus is not visualized. No adnexal masses. LYMPH NODES: No lymphadenopathy. VESSELS: IVC filter within the infrarenal IVC. Mild to moderate atherosclerotic changes of the abdominal aorta. PERITONEUM / RETROPERITONEUM: No free air. Small amount of free fluid in the deep pelvis. BONES: Sclerotic changes of the sacrum adjacent to the ulcer likely representing chronic inflammatory changes/chronic osteomyelitis. Multilevel degenerative changes of the lumbar spine. SOFT TISSUES: Chronic sacral ulcer surrounding by extensive soft tis niharika density likely chronic inflammatory changes. No drainable fluid collection s or abscess. IMPRESSION: Stable gastric bypass postsur gical changes with no definite evidence of esophageal/gastric leak. If clinica l suspicion persists recommend further evaluation with fluoroscopy. No si gnificant interval change. Signed by: Rafael Zimmer MD on 02/10/2020 8: 52 PM Dictated By: RAFAEL ZIMMER MD 51 Transcribed By: SIVAKUMAR on 02/10/202051 COPY TO: JOSE ANGEL LEDEZMA MD Bacterial urine [id number] 10:00:00* Test Item Value Reference Range Interpretation Comments Urine Culture (test code = 630-4) ENTEROCOCCUS FAECALIS-VRE [facility] SINGLE (PORTABLE)2020-02-10 06:40:00 [place] [address] Patient Name: OLEG STEINER MR #: [id number] : 1960 Age/Sex: 59/F Req #: [id number] Adm Physician: DARRYN BECKMAN MD Ordered by: QUENTIN FARIA MD Report #: [id number] Location: ICU Room/Bed: ICU [facility] Procedure: [id number] DX /CHEST SINGLE (PORTABLE) Exam Date: 02/10/20 Exam Ti me: 0515 REPORT STATUS: Signed E XAMINATION: CHEST SINGLE (PORTABLE) INDICATION: aspiration pneumonia COMPARISON: CT chest 02/08/2020 and chest radiograph 02/08/2020. FI NDINGS: The patient is rotated to the right. TUBES and LINES: A right IJ central venous catheter terminates in the SVC. Left-sided chest port with cat heter tip terminates in the SVC. Overlying EKG leads and linear structure in t he left lower hemithorax. LUNGS: Lungs are well inflated. There has been interval development of a triangular opacity which overlies the left upper dulce ng. Mild patchy bibasilar opacities. PLEURA: No pleural effusion or pneu mothorax. HEART AND MEDIASTINUM: The cardiomediastinal silhouette is unre markable. BONES AND SOFT TISSUES: No acute osseous abnormality. Diffus e osteopenia. UPPER ABDOMEN: No free air under the diaphragm. IMP RESSION: Interval development of a triangular opacity which overlies the left upper lung. This may represent partial atelectasis in the left upper lobe (po ssibly from mucous plugging) or overlying structure. Recommend clinical correl ation and follow-up radiograph. Mild patchy bibasilar opacities, which ma y represent aspiration or atelectasis in the appropriate clinical setting. Signed by: Dr. Ratna Parker MD on 02/10/2020 6:46 AM Dictated By: RATNA PARKER MD 5 Transcribed By : SIVAKUMAR on 02/10/20645 COPY TO: QUENTIN FARIA MD Fluoroscopic procedure less than one hour [id number] 03:00:00* Test Item Value Reference Range Interpretation Comments Coronavirus (PCR) (test code = Coronavirus (PCR)) NOT DETECTED [facility] plasma trough vancomycin level at trough (mass/volume)2020-02-09 22:05:00* Test Item Value Reference Range Interpretation Comments Vancomycin Level Trough (test code = 4092-3) 9.3 [facility] [id number] 09:32:00 [facility] [address] [place] [address] Patient Name: OLEG STEINER MR #: [id number] : 1960 Age/Sex: 59/F Req #: [id number] Adm Physician: DARRYN BECKMAN MD Ordered by: QUENTIN FARIA MD Report #: [id number] Location: ICU Room/Bed: ICU [facility] Procedure: [id number] CT /CT ABDOMEN/PELVIS W Exam Date: 02/09/20 Exam Time: 854 REPORT STATUS: Signed EXAM: CT Abdomen and Pelvis WITH contrast INDICATION: h/o CA, open wound [id number] COMPARISON: CT chest 02/08/2020 TECHNIQUE: Abdomen and pelvis were scanned utilizing a multidetector helical scanner from the l true base to the pubic symphysis after administration of IV contrast. Coronal a nd sagittal reformations were obtained. Routine protocol was performed. Scan w as performed when during portal venous phase. IV CONTRAST: 100 mL of Isovue-370 ORAL CONTRAST: None RADIATION DOSE: To cinthia DLP: 255.7 mGy*cm Estimated effective dose: (DLP x 0.015 x si ze factor) mSv COMPLICATIONS: None FINDINGS: LINES and T UBES: Araiza catheter within the urinary bladder. LOWER THORAX: Small bilat eral pleural effusions. Bibasilar atelectasis. No new consolidation in the low er lobes since yesterday's exam. Partially visualized pneumomediastinum surrou nding the distal esophagus appears decreased when compared to 02/08/2020. HEPATOBILIARY: No focal hepatic lesions. No biliary ductal dilation. GALLBLADDER: Cholecystectomy. SPLEEN: No splenomegaly. PANCREAS: No f ocal masses or ductal dilatation. ADRENALS: No adrenal nodules K IDNEYS/URETERS: Kidneys enhance symmetrically. Moderate right hydroureteronep hrosis without visualized calcified stone or obstructing mass, which is associ ated with diffuse wall enhancement which may reflect infection or inflammation . Mild left hydroureteronephrosis without visualized stone or obstructing mass . No cystic or solid mass lesions. GI TRACT: Stable gastric bypass pos tsurgical changes with decreased surrounding pneumomediastinum as described ab ove. There is mild soft tissue thickening of the distal esophagus and proximal stomach at the surgical site. Partial left hemicolectomy. There is a colon os winter within the anterior pelvic wall slightly to the left of midline. The shirley ining bowel is decompressed. Normal appendix. There is mild wall thickening of the proximal ascending colon better seen on series 2, image 27. No large obst ructing masses are visualized. PELVIC ORGANS/BLADDER: Status post vulvectomy. The urinary bladder is moderately distended with Araiza catheter in place. The uterus is not visualized. No adnexal masses. LYMPH NODES: N o lymphadenopathy. VESSELS: IVC filter within the infrarenal IVC. Mild to m oderate atherosclerotic changes of the abdominal aorta without aneurysm. PERITONEUM / RETROPERITONEUM: No free air. Small amount of free fluid in the d eep pelvis. BONES: Sclerotic changes of the sacrum adjacent to the ulcer li tucker representing chronic inflammatory changes/chronic osteomyelitis. Multilev el degenerative changes of the lumbar spine. SOFT TISSUES: Chronic sacral ulcer surrounding by extensive soft tissue density likely chronic inflammatory changes. No drainable fluid collections or abscess. IMPR ESSION: 1. Moderate right and mild left hydroureteronephrosis without vis ualized calcified stone or obstructing mass. There is diffuse wall enhancement of the right ureter which may reflect inflammation or infection. 2. Sta tus post left hemicolectomy with anterior pelvic colostomy. No bowel obstructi on. 3. Mildly decreased pneumomediastinum surrounding the distal esophagus and surrounding the gastric bypass when compared to yesterday's exam. Indeter minate free fluid in the lower pelvis. Overall findings may reflect a leak at the proximal gastric bypass. Recommend surgical consultation. 4. Chronic sacral ulcer with associated inflammatory changes and probably chronic osteom yelitis of the sacrum. No drainable fluid collections or abscess. Signed by : Dr. Connei Carter M.D. on 02/09/2020 10:27 AM Dictated By: JEANIE CARTER MD 1027 COPY TO: QUENTIN FARIA MD Automated reticulocyte count as percentage of total pxsimdbsxbkg0646-95-92 04:59:00* Test Item Value Reference Range Interpretation Comments Percent Reticulocyte Count (test code = 60189-4) 1.1 [facility] one hour mplgtpxd3863-97-29 04:59:00* Test Item Value Reference Range Interpretation Comments Hemoglobin A1c Percent (test code = Hemoglobin A1c Percent) 4.5 [facility] or plasma iron measurement (mass/volume)2020-02-09 04:59:00* Test Item Value Reference Range Interpretation Comments Iron Level (test code = 2498-4) 23 [facility] or plasma iron binding capacity measurement (mass/volume)2020-02-09 04:59:00* Test Item Value Reference Range Interpretation Comments Total Iron Binding Capacity (test code = 2500-7) 147 [facility] or plasma iron saturation measurement (mass fraction)2020-02-09 04:59:00* Test Item Value Reference Range Interpretation Comments Percent Iron Saturation (test code = 2502-3) 16 [facility] or plasma transferrin measurement (mass/volume)2020-02-09 04:59:00* Test Item Value Reference Range Interpretation Comments Transferrin (test code = 3034-6) 105 [facility] or plasma ferritin measurement (mass/volume)2020-02-09 04:59:00* Test Item Value Reference Range Interpretation Comments Ferritin (test code = 2276-4) 718.60 [facility] (vitamin B12) measurement (mass/volume)2020-02-09 04:59:00* Test Item Value Reference Range Interpretation Comments Vitamin B12 Level (test code = 80108-7) 1359 [facility] or plasma thyrotropin measurement by detection limit <= 0.005 miu/l (units/volume)2020-02-09 04:59:00* Test Item Value Reference Range Interpretation Comments Thyroid Stimulating Hormone (TSH) (test code = 57483-2) 1.963 [facility] or plasma folate measurement (mass/volume)2020-02-09 04:59:00* Test Item Value Reference Range Interpretation Comments Folate (test code = 2284-8) 12.6 [facility] or plasma creatine kinase measurement (enzymatic activity/volume)2020-02-08 23:15:00* Test Item Value Reference Range Interpretation Comments Creatine Kinase (test code = 2157-6) 10 [facility] or plasma creatine kinase MB measurement (mass/volume)2020-02-08 23:15:00* Test Item Value Reference Range Interpretation Comments Creatine Kinase MB (test code = 21807-0) 1.60 [facility] HospitalTrop[facility] I measurement by highly sensitive enzyme zvxjjzynjdk6768-96-14 23:15:00* Test Item Value Reference Range Interpretation Comments Troponin I (test code = 71198-0) < 0.001 [facility] procedure less than one hour odocscfa5822-84-50 04:30:00* Test Item Value Reference Range Interpretation Comments Lactic Acid Level (test code = Lactic Acid Level) 1.1 [facility] V0072-94-20 03:17:00 [facility] [address] [place] [address] Patient Name: OLEG STEINER MR #: [id number] : 1960 Age/Sex: 59/F Req #: [id number] Adm Physician: DARRYN BECKMAN MD Ordered by: QUENTIN FARIA MD Report #: [id number] Location: ICU Room/Bed: ICU [facility] Procedure: [id number] CT /CT CHEST W Exam Date: 02/08/20 Exam Time: 0110 REPORT STATUS: Signed EXAM: CT Chest WITH contrast- Pulmonary Embolism Protocol INDICATION: Weakness, fever, ch est pain. COMPARISON: Chest radiograph 02/08/2020. TECHNIQUE: Chest was scanned utilizing a multidetector helical scanner from the lung apex throu gh the level of the diaphragm after administration of IV contrast. Thin sectio n reconstructions were obtained with special concentration on the pulmonary ar teries. Coronal and sagittal reformations were obtained. Pulmonary embolism pr otocol was performed. IV CONTRAST: 100 cc of Isovue 370 RADIATION DOSE: Total DLP: 372 mGy*cm Dose modulation, iterat jose reconstruction, and/or weight based adjustment of the mA/kV was utilized t o reduce the radiation dose to as low as reasonably achievable. COMPLICATIONS: None FINDINGS: LINES/ TUBES: Right IJ central venous catheter terminates in the SVC. Left-sided chest port terminates in the SVC. PULMONARY ARTERIES: No filling defect is identified within the pulmonary arteries to the segmental level. The subsegmental pulmonary arteries are not well opacified. Main pulmonary artery measures 2.6 cm in diameter. LUNGS AN D AIRWAYS: Minimal dependent atelectasis. Biapical pleural-parenchymal opacity , compatible with remote granulomatous disease. The central airways are patent . There are mild patchy consolidative opacities in the dependent lower lobes b ilaterally. Minimal groundglass opacity within the medial left lower lobe on s eries 3, image 92 and right lower lobe on series 3, image 92. There is a 4 mm left upper lobe solid nodule on series 3, image 60. Mild bronchial wall thicke rufino. PLEURA: The pleural spaces are clear. HEART AND MEDIASTINUM: Sma ll to moderate volume pneumomediastinum, most pronounced in the lower mediasti num. No clear source identified, however there is diffuse mild esophageal wall thickening. Limited evaluation of the thyroid gland which appears grossly unr emarkable. No mediastinal, hilar or axillary lymphadenopathy. No cardiomegaly or pericardial effusion. There is mild wall thickening within the left ventric le. Scattered coronary atherosclerosis. UPPER ABDOMEN: Limited contrast-enh anced views of the upper abdomen. Status post gastric bypass. Small hiatal her giuliano. A linear hyperdensity within the right hepatic lobe and an adjacent small linear linear hyperdensity. Possible 1.1 cm right hepatic lobe hypodense lesi on versus artifact from adjacent metallic hyperdensities (series 2, image 139) . Mild intrahepatic ductal dilatation. Partially seen moderate right hydr onephrosis. BONES: No acute osseous abnormality. No suspicious lytic or aviva stic lesions. SOFT TISSUES: Unremarkable. IMPRESSION: No evidence o f pulmonary embolism to the level of the segmental pulmonary arteries. S mall to moderate volume pneumomediastinum, most pronounced in the lower medias tinum. No clear source identified, however there is diffuse mild esophageal wa ll thickening. Suggest correlation for any history of vomiting. Status post gastric bypass with small hiatal hernia. Mild patchy/consolidative opaciti es in the lower lungs may represent a combination of mild aspiration and atele ctasis. Linear hyperdensities within the inferior aspect of the right hepat ic lobe, likely surgical clips. Possible adjacent 1.1 cm right hepatic lobe hy podense lesion versus artifact. Mild intrahepatic biliary ductal dilatation. R ecommend CT of the abdomen and pelvis for further evaluation. Moderate ri ght hydronephrosis, partially visualized, for which a renal ultrasound or CT o f the abdomen and pelvis is recommended for further evaluation. The above findings were discussed with BRUNILDA Maurer on 02/08/2020 at 3:41 AM. Signed by: Dr. Ratna Parker MD on 02/08/2020 3:45 AM Dictated By: RATNA WEAVER MD 4 Transcribed By: SIVAKUMAR on 02/08/20344 COPY TO: QUENTIN FARIA MD CHEST SINGLE (PORTABLE)2020-02-08 02:50:00 [place] [address] Patient Name: OLEG STEINER MR #: [id number] : 1960 Age/Sex: 59/F Req #: [id number] Adm Physician: DARRYN BECKMAN MD Ordered by: MARIA C BUTLER MD Report #: [id number] Location: ICU Room/Bed: ICU [facility] Procedure: [id number] DX/CHEST SINGLE (PORTABLE) Exam Date: 02/08/20 Exam Time: 0036 REPORT STATUS: Si gned EXAMINATION: CHEST SINGLE (PORTABLE) INDICATION: Check central line placement. COMPARISON: Chest radiograph 02/07/2020. FINDING S: TUBES and LINES: Interval placement of a right IJ central venous catheter which terminates in the SVC. Left-sided chest port with catheter tip termina ting in the SVC. LUNGS: Lungs are well inflated. Mild patchy left basilar opacity. Decreased conspicuity of patchy opacity in the right midlung adjacent to the EKG lead. No evidence of lobar consolidation or pulmonary edema. Mild bronchial wall thickening. PLEURA: No pleural effusion or pneumothorax. HEART AND MEDIASTINUM: The cardiomediastinal silhouette is unremarkable. BONES AND SOFT TISSUES: No acute osseous lesion. Soft tissues are u nremarkable. UPPER ABDOMEN: No free air under the diaphragm. IMPRE SSION: Interval placement of a right IJ central venous catheter which termina gem in the SVC. No evidence of pneumothorax. Mild patchy left basilar opa city, which may represent atelectasis or infection in the appropriate clinical setting. Decreased conspicuity of patchy opacity in the right midlung adjacent to the EKG lead. This can be assessed on subsequent chest CT. Findings of bronchitis. Signed by: Dr. Ratna Parker MD on 02/08/2020 2:54 AM Di ctated By: RATNA PARKER MD 02 54 Transcribed By: SIVAKUMAR on 02/08/20 2529 COPY TO: MARIA C BUTLER MD Bacterial blood [id number] 00:01:00* Test Item Value Reference Range Interpretation Comments Blood Culture (test code = 600-7) STREP SPECIES, GAM[facility]OLYTIC [facility]2020-02-07 23:52:00 [place] [address] Patient Name: OLEG STEINER MR #: [id number] : 1960 Age/Sex: 59/F Req #: [id number] Adm Physician: Ordered by: MARIA C BUTLER MD Report #: [id number] Location: ER Room/Bed: Procedure: [id number] DX/CHEST SINGLE (PORTABLE) Exam Date: 02/07/20 Exam Time: 2311 REPORT STATUS: Sig nadiya EXAMINATION: CHEST SINGLE (PORTABLE) INDICATION: Fever. C OMPARISON: None FINDINGS: TUBES and LINES: Left-sided chest port w ith catheter tip terminating in the SVC. LUNGS: Lungs are well inflated. Mild patchy left basilar opacity. Possible patchy opacity in the right midlun g, obscured by overlying EKG leads. No evidence of lobar consolidation or pulm onary edema. Mild bronchial wall thickening. PLEURA: No pleural effusion or pneumothorax. HEART AND MEDIASTINUM: The cardiomediastinal silhouette is unremarkable. BONES AND SOFT TISSUES: No acute osseous lesion. So ft tissues are unremarkable. UPPER ABDOMEN: No free air under the diaphra gm. IMPRESSION: Mild patchy left basilar opacity, which may represen t atelectasis or infection in the appropriate clinical setting. Possible patch y opacity in the right midlung, obscured by overlying EKG lead. Suggest repeat radiograph with removal of EKG lead. Recommend follow-up chest radiograph to assess for resolution. Findings of bronchitis. Signed by: Dr. Ratna weaver MD on 02/07/2020 11:55 PM Dictated By: RATNA PARKER MD Electronically S igned By: RATNA PAKRER MD on 02/07/20 9582 Transcribed By: SIVAKUMAR on 02/07/20 23 55 COPY TO: MARAI C BUTLER MD Urine color determination 2020-02-07 22:40:00* Test Item Value Reference Range Interpretation Comments Urine Color (test code = 5778-6) BROWN [facility] [id number] 22:40:00* Test Item Value Reference Range Interpretation Comments Urine Clarity (test code = 06837-3) TURBID [facility] gravity of Urine by Test strip 2020-02-07 22:40:00* Test Item Value Reference Range Interpretation Comments Urine Specific [place] (test code = 5811-5) 1.025 [facility] pH measurement by automated test ywcjs0638-27-15 22:40:00* Test Item Value Reference Range Interpretation Comments Urine pH (test code = 42037-3) 6.5 [facility] leukocyte esterase detection by ivkggdts2765-43-93 22:40:00* Test Item Value Reference Range Interpretation Comments Urine Leukocyte Esterase (test code = 5799-2) LARGE [facility] Hospital[facility]rine nitrite ggppuwnku3624-14-91 22:40:00* Test Item Value Reference Range Interpretation Comments Urine Nitrite (test code = 56248-2) NEGATIVE [facility] protein measurement by test strip (mass/volume)2020-02-07 22:40:00* Test Item Value Reference Range Interpretation Comments Urine Protein (test code = 5804-0) 3+ [facility] Hospital[facility] glucose crnzmdpbd9220-31-63 22:40:00* Test Item Value Reference Range Interpretation Comments Urine Glucose (UA) (test code = 2349-9) NEGATIVE [facility] Hospital[facility] ketones detection by automated test ceiry0040-17-58 22:40:00* Test Item Value Reference Range Interpretation Comments Urine Ketones (test code = 71381-1) NEGATIVE [facility] urobilinogen measurement by test strip (mass/volume)2020-02-07 22:40:00* Test Item Value Reference Range Interpretation Comments Urine Urobilinogen (test code = 74535-0) 0.2 [facility] total bilirubin measurement (mass/volume)2020-02-07 22:40:00* Test Item Value Reference Range Interpretation Comments Urine Bilirubin (test code = 1978-6) NEGATIVE [facility] Hospital[facility] erythrocytes iuydcixui3936-08-93 22:40:00* Test Item Value Reference Range Interpretation Comments Urine Blood (test code = 30618-2) 3+ [facility] HospitalAutomated urine sediment leukocyte count by microscopy (number/high power field)2020-02-07 22:40:00* Test Item Value Reference Range Interpretation Comments Urine WBC (test code = 5821-4) >50 [facility] HospitalErythrocytes detection in urine sediment by light xtkmotrgld8156-76-28 22:40:00* Test Item Value Reference Range Interpretation Comments Urine RBC (test code = 06272-4) >50 [facility] HospitalBacteria detection in urine sediment by light lwarmnvvyt5363-35-70 22:40:00* Test Item Value Reference Range Interpretation Comments Urine Bacteria (test code = 11091-9) MANY [facility] HospitalEpithelial cells detection in urine sediment by light edcbcttnhr5390-33-62 22:40:00* Test Item Value Reference Range Interpretation Comments Urine Epithelial Cells (test code = 69819-2) MODERATE [facility] HospitalBacterial urine fpbojzp1287-83-40 22:40:00* Test Item Value Reference Range Interpretation Comments Urine Culture (test code = 630-4) ENTEROCOCCUS FAECALIS-VRE [facility] HospitalActivated partial thromboplastin time (aPTT) in platelet poor plasma by coagulation yveiv1848-44-04 22:20:00* Test Item Value Reference Range Interpretation Comments Activated Partial Thromboplast Time (test code = 76597-9) 40.4 [facility] HospitalInfluenza virus A and B antigen identification by dgyyqnaexzsrmtrrvp5295-31-21 22:20:00* Test Item Value Reference Range Interpretation Comments Influenza Virus Types A,B Antigen (test code = 67069-3) NEGATIVE [facility]reptococcus pyogenes antigen detection in lsqdub9699-91-92 22:20:00* Test Item Value Reference Range Interpretation Comments Group A Streptococcus Screen (test code = 90160-2) NEGATIVE [facility] HospitalBacterial urine feprqwv3736-44-54 17:21:00* Test Item Value Reference Range Interpretation Comments Urine Culture (test code = 630-4) ESCHERICHIA COLI [facility] HospitalURINALYSIS BZVEZDDH1430-59-04 15:52:00* Test Item Value Reference Range Interpretation Comments UA COLOR (test code = COLU) YELLOW YELLOW UA APPEARANCE (test code = APPU) Cloudy CLEAR A UA GLUCOSE DIPSTICK (test code = DGLUU) NEGATIVE mg/dL NEGATIVE UA BILIRUBIN DIPSTICK (test code = BILU) NEGATIVE mg/dL NEGATIVE UA KETONE DIPSTICK (test code = KETU) NEGATIVE mg/dL NEGATIVE UA SPECIFIC GRAVITY (test code = SGU) 1.022 1.001-1.035 UA BLOOD DIPSTICK (test code = JORGE) 1.0 mg/dL (3+) mg/dL NEGATIVE A UA PH DIPSTICK (test code = MAGED) 6.0 5.0-8.0 UA PROTEIN DIPSTICK (test code = PROU) 50 (1+) mg/dL NEGATIVE A UA UROBILINIOGEN DIPSTICK (test code = URO) Normal mg/dL NEGATIVE UA NITRITE DIPSTICK (test code = BHARATH) POSITIVE NEGATIVE A UA LEUKOCYTE ESTERASE W REFLEX (test code = LEUUR) 500 Ana/u L (3+) Ana/uL NEGATIVE A UA WBC (test code = WBCU) 101-150 per HPF 0-5 A UA RBC (test code = RBCU) 101-150 #/HPF 0-5 UA EPITHELIAL CELLS (test code = EPIU) FEW per HPF FEW UA BACTERIA (test code = BACU) MANY #/HPF NONE A UA CALCIUM OXALATE CRYSTALS (test code = CAOXU) FEW #/HPF NONE A UA MUCUS (test code = MUCU) FEW #/LPF FEW Urine Source? CatheterURINALYSIS [id number] 15:51:00* Test Item Value Reference Range Interpretation Comments UA COLOR (test code = COLU) YELLOW YELLOW UA APPEARANCE (test code = APPU) Cloudy CLEAR A UA GLUCOSE DIPSTICK (test code = DGLUU) NEGATIVE mg/dL NEGATIVE UA BILIRUBIN DIPSTICK (test code = BILU) NEGATIVE mg/dL NEGATIVE UA KETONE DIPSTICK (test code = KETU) NEGATIVE mg/dL NEGATIVE UA SPECIFIC GRAVITY (test code = SGU) 1.022 1.001-1.035 UA BLOOD DIPSTICK (test code = JORGE) 1.0 mg/dL (3+) mg/dL NEGATIVE A UA PH DIPSTICK (test code = MAGED) 6.0 5.0-8.0 UA PROTEIN DIPSTICK (test code = PROU) 50 (1+) mg/dL NEGATIVE A UA UROBILINIOGEN DIPSTICK (test code = URO) Normal mg/dL NEGATIVE UA NITRITE DIPSTICK (test code = BHARATH) POSITIVE NEGATIVE A UA LEUKOCYTE ESTERASE W REFLEX (test code = LEUUR) 500 Ana/u L (3+) Ana/uL NEGATIVE A UA WBC (test code = WBCU) per HPF 0-5 UA RBC (test code = RBCU) per HPF 0-5 UA EPITHELIAL CELLS (test code = EPIU) per HPF Few UA BACTERIA (test code = BACU) per HPF NONE Urine Source? Catheter- CONT INJ GS/ DU/ JJ/ [id number] 10:27:00 FAX: Angelo Hodges MD [phone] [place]: St: REG Name: OLEG UMANZOR [facility] : [birth year] Age/S: 58/F [address] [facility] Unit #: [id number] Loc: [place] [address] Phys: Angelo Hodges MD Acct: [id number] Dis Date: Status: REG CLI PHONE #: [phone] Exam Date: 05/29/2019 1013 FAX #: [phone] Reason: VERIFY G-TUBE PLACEMENT EXAMS: CPT CODE: [id number] CONT INJ GS/ DU/ [place]/ GG [address] HISTORY: VERIFY G-TUBE PLACEMENT TECHNIQUE: AP abdomen [...] Angelo Hodges MD Techno logist: Tammie Mijares(R); Meregayle Olivas RT(R) Trnscrd Date/Time /By: 05/29/2019 (1027) : By: [email or web address] Orig Print D/T: S: 05/29/2019 ( 6018) PAGE 1 Signed Report - XR ABDOMEN AP 1 [id number] 13:02:00 FAX: Angelo Hodges MD [phone] [place]: St: REG Name: OLEG UMANZOR [facility] : [birth year] Age/S: 58/F [address] [facility] Unit #: [id number] Loc: [place] [address] Phys: Angelo Hodges MD Acct: [id number] Dis Date: Status: REG CLI PHONE #: [phone] Exam Date: 05/23/2019 1250 FAX #: [phone] Reason: peg tube placement EXAMS: CPT CODE: [id number] XR ABDOMEN AP 1 V 46173 HISTORY: peg tube placement TECHNIQUE: AP abdomen [...] Sanchez MD CC: Angelo Leyva MD Technologist: BERTHA AYALA RT(R) Trnscrd Date/Time/By: 05/23/2019 (28 11) : By: [email or web address] Orig Print D/T: S: 05/23/2019 (8577) PAGE 1 Signed Report [id number] 16:59:00* Test Item Value Reference Range Interpretation Comments GLUBED (test code = GLUBED) 84 mg/dL 74-106 N Performed by certified threader operator at [facility] BASIC METABOLIC [id number] 08:19:00* Test Item Value Reference Range Interpretation Comments SODIUM (test code = NA) 142 mmol/L 136-145 N POTASSIUM (test code = K) 3.5 mmol/L 3.5-5.1 N CHLORIDE (test code = CL) 108.0 mmol/L 98-107 H CARBON DIOXIDE (test code = CO2) 30.0 mmol/L 21-32 N ANION GAP (test code = GAP) 7.5 10-20 L GLUCOSE (test code = GLU) 83 mg/dL 74-106 N BLOOD UREA NITROGEN (test code = BUN) 8 mg/dL 7-18 N GLOMERULAR FILTRATION RATE (test code = GFR) > 60 mL/min >=60 Estimated GFR by using Modified MDRD formula.Chronic kidney disease is defined as either kidney damageor GFR <60 mL/min/1.73 m2 for >3 months. CREATININE (test code = CREAT) 0.30 mg/dL 0.55-1.02 L Note change in reference range due to change in reagent. BUN/CREATININE RATIO (test code = BUN/CREA) 26.7 10-20 H CALCIUM (test code = CA) 9.1 mg/dL 8.5-10.1 N [id number] 07:35:00* Test Item Value Reference Range Interpretation Comments GLUBED (test code = GLUBED) 98 mg/dL 74-106 N Performed by certified threader operator at [facility] CBC W/AUTO [id number] 07:32:00* Test Item Value Reference Range Interpretation Comments WHITE BLOOD CELL (test code = WBC) 6.2 K/mm3 4.5-12.5 N RED BLOOD CELL (test code = RBC) 2.69 mill/mm3 3.7-5.2 L HEMOGLOBIN (test code = HGB) 8.6 gram/dL 11.5-15.5 L HEMATOCRIT (test code = HCT) 27.7 % 36.0-46.0 L MEAN CELL VOLUME (test code = MCV) 103.0 fL 80-98 H MEAN CELL HGB (test code = MCH) 32.0 picogram 27.0-33.0 N MEAN CELL HGB CONCETRATION (test code = MCHC) 31.0 gram/dL 33.0-36. 0 L RED CELL DISTRIBUTION WIDTH (test code = RDW) 18.9 % 11.6-16. 2 H RED CELL DISTRIBUTION WIDTH SD (test code = RDW-SD) 70.3 fL 37 .0-51.0 H PLATELET COUNT (test code = PLT) 482 K/mm3 150-450 H RESULT VERIFIED BY REPEAT ANALYSIS MEAN PLATELET VOLUME (test code = MPV) 9.5 fL 6.7-11.0 N NEUTROPHIL % (test code = NT%) 73.0 % 39.0-69.0 H IMMATURE GRANULOCYTE % (test code = IG%) 1.1 % 0.0-5.0 N LYMPHOCYTE % (test code = LY%) 11.5 % 25.0-55.0 L MONOCYTE % (test code = MO%) 11.7 % 0.0-10.0 H EOSINOPHIL % (test code = EO%) 2.4 % 0.0-5.0 N BASOPHIL % (test code = BA%) 0.3 % 0.0-1.0 N NUCLEATED RBC % (test code = NRBC%) 0.0 % 0-0 N NEUTROPHIL # (test code = NT#) 4.48 K/mm3 1.8-7.7 N IMMATURE GRANULOCYTE # (test code = IG#) 0.07 x10 3/uL 0-0.03 H LYMPHOCYTE # (test code = LY#) 0.71 K/mm3 1.0-5.0 L MONOCYTE # (test code = MO#) 0.72 K/mm3 0-0.8 N EOSINOPHIL # (test code = EO#) 0.15 K/mm3 0.0-0.5 N BASOPHIL # (test code = BA#) 0.02 K/mm3 0.0-0.2 N NUCLEATED RBC # (test code = NRBC#) 0.00 K/mm3 0.0-0.1 N [id number] 21:34:00* Test Item Value Reference Range Interpretation Comments GLUBED (test code = GLUBED) 91 mg/dL 74-106 N Performed by certified threader operator at [facility] [id number] 11:32:00* Test Item Value Reference Range Interpretation Comments GLUBED (test code = GLUBED) 86 mg/dL 74-106 N Performed by certified threader operator at [facility] BASIC METABOLIC [id number] 05:30:00* Test Item Value Reference Range Interpretation Comments SODIUM (test code = NA) 144 mmol/L 136-145 N POTASSIUM (test code = K) 3.8 mmol/L 3.5-5.1 N CHLORIDE (test code = CL) 112.0 mmol/L 98-107 H CARBON DIOXIDE (test code = CO2) 26.0 mmol/L 21-32 N ANION GAP (test code = GAP) 9.8 10-20 L GLUCOSE (test code = GLU) 84 mg/dL 74-106 N BLOOD UREA NITROGEN (test code = BUN) 6 mg/dL 7-18 L GLOMERULAR FILTRATION RATE (test code = GFR) > 60 mL/min >=60 Estimated GFR by using Modified MDRD formula.Chronic kidney disease is defined as either kidney damageor GFR <60 mL/min/1.73 m2 for >3 months. CREATININE (test code = CREAT) 0.30 mg/dL 0.55-1.02 L Note change in reference range due to change in reagent. BUN/CREATININE RATIO (test code = BUN/CREA) 22.6 10-20 H CALCIUM (test code = CA) 8.9 mg/dL 8.5-10.1 N BASIC METABOLIC [id number] 05:23:00* Test Item Value Reference Range Interpretation Comments SODIUM (test code = NA) 144 mmol/L 136-145 N POTASSIUM (test code = K) 3.8 mmol/L 3.5-5.1 N CHLORIDE (test code = CL) 112.0 mmol/L 98-107 H CARBON DIOXIDE (test code = CO2) mmol/L 21-32 ANION GAP (test code = GAP) 10-20 GLUCOSE (test code = GLU) mg/dL 74-106 BLOOD UREA NITROGEN (test code = BUN) mg/dL 7-18 GLOMERULAR FILTRATION RATE (test code = GFR) mL/min >=60 CREATININE (test code = CREAT) mg/dL 0.55-1.02 BUN/CREATININE RATIO (test code = BUN/CREA) 10-20 CALCIUM (test code = CA) mg/dL 8.5-10.1 CBC W/AUTO [id number] 04:56:00* Test Item Value Reference Range Interpretation Comments WHITE BLOOD CELL (test code = WBC) 5.1 K/mm3 4.5-12.5 N RED BLOOD CELL (test code = RBC) 2.84 mill/mm3 3.7-5.2 L HEMOGLOBIN (test code = HGB) 9.2 gram/dL 11.5-15.5 L HEMATOCRIT (test code = HCT) 29.4 % 36.0-46.0 L MEAN CELL VOLUME (test code = MCV) 103.5 fL 80-98 H MEAN CELL HGB (test code = MCH) 32.4 picogram 27.0-33.0 N MEAN CELL HGB CONCETRATION (test code = MCHC) 31.3 gram/dL 33.0-36. 0 L RED CELL DISTRIBUTION WIDTH (test code = RDW) 18.6 % 11.6-16. 2 H RED CELL DISTRIBUTION WIDTH SD (test code = RDW-SD) 70.4 fL 37 .0-51.0 H PLATELET COUNT (test code = PLT) 396 K/mm3 150-450 N MEAN PLATELET VOLUME (test code = MPV) 9.4 fL 6.7-11.0 N NEUTROPHIL % (test code = NT%) 65.3 % 39.0-69.0 N IMMATURE GRANULOCYTE % (test code = IG%) 2.4 % 0.0-5.0 N LYMPHOCYTE % (test code = LY%) 15.2 % 25.0-55.0 L MONOCYTE % (test code = MO%) 13.7 % 0.0-10.0 H EOSINOPHIL % (test code = EO%) 3.0 % 0.0-5.0 N BASOPHIL % (test code = BA%) 0.4 % 0.0-1.0 N NUCLEATED RBC % (test code = NRBC%) 0.0 % 0-0 N NEUTROPHIL # (test code = NT#) 3.30 K/mm3 1.8-7.7 N IMMATURE GRANULOCYTE # (test code = IG#) 0.12 x10 3/uL 0-0.03 H LYMPHOCYTE # (test code = LY#) 0.77 K/mm3 1.0-5.0 L MONOCYTE # (test code = MO#) 0.69 K/mm3 0-0.8 N EOSINOPHIL # (test code = EO#) 0.15 K/mm3 0.0-0.5 N BASOPHIL # (test code = BA#) 0.02 K/mm3 0.0-0.2 N NUCLEATED RBC # (test code = NRBC#) 0.00 K/mm3 0.0-0.1 N MANUAL DIFF REQUIRED (test code = MDIFF) NO [id number] 17:39:00* Test Item Value Reference Range Interpretation Comments GLUBED (test code = GLUBED) 101 mg/dL 74-106 N Performed by certified threader operator at [facility] [id number] 17:39:00* Test Item Value Reference Range Interpretation Comments GLUBED (test code = GLUBED) 99 mg/dL 74-106 N Performed by certified threader operator at [facility] BASIC METABOLIC [id number] 09:34:00* Test Item Value Reference Range Interpretation Comments SODIUM (test code = NA) 142 mmol/L 136-145 N POTASSIUM (test code = K) 3.8 mmol/L 3.5-5.1 N CHLORIDE (test code = CL) 112.0 mmol/L 98-107 H CARBON DIOXIDE (test code = CO2) 26.0 mmol/L 21-32 N ANION GAP (test code = GAP) 7.8 10-20 L GLUCOSE (test code = GLU) 90 mg/dL 74-106 N BLOOD UREA NITROGEN (test code = BUN) 5 mg/dL 7-18 L GLOMERULAR FILTRATION RATE (test code = GFR) > 60 mL/min >=60 Estimated GFR by using Modified MDRD formula.Chronic kidney disease is defined as either kidney damageor GFR <60 mL/min/1.73 m2 for >3 months. CREATININE (test code = CREAT) 0.30 mg/dL 0.55-1.02 L Note change in reference range due to change in reagent. BUN/CREATININE RATIO (test code = BUN/CREA) 18.5 10-20 N CALCIUM (test code = CA) 8.8 mg/dL 8.5-10.1 N BASIC METABOLIC [id number] 09:29:00* Test Item Value Reference Range Interpretation Comments SODIUM (test code = NA) 142 mmol/L 136-145 N POTASSIUM (test code = K) 3.8 mmol/L 3.5-5.1 N CHLORIDE (test code = CL) 112.0 mmol/L 98-107 H CARBON DIOXIDE (test code = CO2) mmol/L 21-32 ANION GAP (test code = GAP) 10-20 GLUCOSE (test code = GLU) mg/dL 74-106 BLOOD UREA NITROGEN (test code = BUN) mg/dL 7-18 GLOMERULAR FILTRATION RATE (test code = GFR) mL/min >=60 CREATININE (test code = CREAT) mg/dL 0.55-1.02 BUN/CREATININE RATIO (test code = BUN/CREA) 10-20 CALCIUM (test code = CA) mg/dL 8.5-10.1 CBC W/AUTO [id number] 09:21:00* Test Item Value Reference Range Interpretation Comments WHITE BLOOD CELL (test code = WBC) 4.8 K/mm3 4.5-12.5 N RED BLOOD CELL (test code = RBC) 2.81 mill/mm3 3.7-5.2 L HEMOGLOBIN (test code = HGB) 8.9 gram/dL 11.5-15.5 L HEMATOCRIT (test code = HCT) 28.7 % 36.0-46.0 L MEAN CELL VOLUME (test code = MCV) 102.1 fL 80-98 H MEAN CELL HGB (test code = MCH) 31.7 picogram 27.0-33.0 N MEAN CELL HGB CONCETRATION (test code = MCHC) 31.0 gram/dL 33.0-36. 0 L RED CELL DISTRIBUTION WIDTH (test code = RDW) 18.5 % 11.6-16. 2 H RED CELL DISTRIBUTION WIDTH SD (test code = RDW-SD) 68.2 fL 37 .0-51.0 H PLATELET COUNT (test code = PLT) 363 K/mm3 150-450 N MEAN PLATELET VOLUME (test code = MPV) 9.6 fL 6.7-11.0 N NEUTROPHIL % (test code = NT%) 73.2 % 39.0-69.0 H IMMATURE GRANULOCYTE % (test code = IG%) 1.0 % 0.0-5.0 N LYMPHOCYTE % (test code = LY%) 10.2 % 25.0-55.0 L MONOCYTE % (test code = MO%) 13.5 % 0.0-10.0 H EOSINOPHIL % (test code = EO%) 1.7 % 0.0-5.0 N BASOPHIL % (test code = BA%) 0.4 % 0.0-1.0 N NUCLEATED RBC % (test code = NRBC%) 0.0 % 0-0 N NEUTROPHIL # (test code = NT#) 3.52 K/mm3 1.8-7.7 N IMMATURE GRANULOCYTE # (test code = IG#) 0.05 x10 3/uL 0-0.03 H LYMPHOCYTE # (test code = LY#) 0.49 K/mm3 1.0-5.0 L MONOCYTE # (test code = MO#) 0.65 K/mm3 0-0.8 N EOSINOPHIL # (test code = EO#) 0.08 K/mm3 0.0-0.5 N BASOPHIL # (test code = BA#) 0.02 K/mm3 0.0-0.2 N NUCLEATED RBC # (test code = NRBC#) 0.00 K/mm3 0.0-0.1 N MANUAL DIFF REQUIRED (test code = MDIFF) NO [id number] 05:50:00* Test Item Value Reference Range Interpretation Comments GLUBED (test code = GLUBED) 75 mg/dL 74-106 N Performed by certified threader operator at [facility] [id number] 20:31:00* Test Item Value Reference Range Interpretation Comments GLUBED (test code = GLUBED) 94 mg/dL 74-106 N Performed by certified threader operator at [facility] - XR SACRUM/COCCYX 2 + [id number] 13:55:00 FAX: Fabienne Pinto MD [phone] [place]: B St: ADM FAX: Jordy Martinez DO [phone] FAX: Kwesi Goss NP [phone] Name: OLEG STEINER [facility] : 1960 Age/S: 58/F [address] Unit #: [id number] Loc: V.20[address] [address] Phys: Kwesi Ivory [employer] Acct: [id number] Dis Date: Status: ADM IN ONE #: [phone] Exam Date: 05/10/2019909 FAX #: [phone] Reason: r/o osteomyelitis EXAMS: CPT CODE: [id number] XR SACRUM/COCCYX 2 + V 66592 CLINICAL HISTO RY: r/o osteomyelitis TECHNIQUE: 4 [...] without contrast can provide further evaluation. at 1674 Reported and signed by: Ted Sanchez MD CC: Fabienne Osorio MD; Jordy Gambino; Kwesi Ivory NP Technologist: RT XOCHITL( Eduarda) Trnscrd Date/Time/By: 05/10/2019 (3041) : By: [email or web address] Orig Print D/T: S: 05/10/2019 (2217) PAGE 1 Signed Report CBC W/AUTO [id number] 09:52:00* Test Item Value Reference Range Interpretation Comments WHITE BLOOD CELL (test code = WBC) 5.1 K/mm3 4.5-12.5 N RED BLOOD CELL (test code = RBC) 2.55 mill/mm3 3.7-5.2 L HEMOGLOBIN (test code = HGB) 8.1 gram/dL 11.5-15.5 L HEMATOCRIT (test code = HCT) 25.8 % 36.0-46.0 L MEAN CELL VOLUME (test code = MCV) 101.2 fL 80-98 H MEAN CELL HGB (test code = MCH) 31.8 picogram 27.0-33.0 N MEAN CELL HGB CONCETRATION (test code = MCHC) 31.4 gram/dL 33.0-36. 0 L RED CELL DISTRIBUTION WIDTH (test code = RDW) 18.5 % 11.6-16. 2 H RED CELL DISTRIBUTION WIDTH SD (test code = RDW-SD) 68.8 fL 37 .0-51.0 H PLATELET COUNT (test code = PLT) 361 K/mm3 150-450 RESULT VERIFIED BY REPEAT ANALYSIS MEAN PLATELET VOLUME (test code = MPV) 9.7 fL 6.7-11.0 N NEUTROPHIL % (test code = NT%) 71.3 % 39.0-69.0 H IMMATURE GRANULOCYTE % (test code = IG%) 0.8 % 0.0-5.0 N LYMPHOCYTE % (test code = LY%) 13.3 % 25.0-55.0 L MONOCYTE % (test code = MO%) 12.5 % 0.0-10.0 H EOSINOPHIL % (test code = EO%) 1.9 % 0.0-5.0 N BASOPHIL % (test code = BA%) 0.2 % 0.0-1.0 N NUCLEATED RBC % (test code = NRBC%) 0.0 % 0-0 N NEUTROPHIL # (test code = NT#) 3.66 K/mm3 1.8-7.7 N IMMATURE GRANULOCYTE # (test code = IG#) 0.04 x10 3/uL 0-0.03 H LYMPHOCYTE # (test code = LY#) 0.68 K/mm3 1.0-5.0 L MONOCYTE # (test code = MO#) 0.64 K/mm3 0-0.8 N EOSINOPHIL # (test code = EO#) 0.10 K/mm3 0.0-0.5 N BASOPHIL # (test code = BA#) 0.01 K/mm3 0.0-0.2 N NUCLEATED RBC # (test code = NRBC#) 0.00 K/mm3 0.0-0.1 N MANUAL DIFF REQUIRED (test code = MDIFF) NO BASIC METABOLIC [id number] 09:47:00* Test Item Value Reference Range Interpretation Comments SODIUM (test code = NA) 141 mmol/L 136-145 N POTASSIUM (test code = K) 3.8 mmol/L 3.5-5.1 N CHLORIDE (test code = CL) 111.0 mmol/L 98-107 H CARBON DIOXIDE (test code = CO2) 26.0 mmol/L 21-32 N ANION GAP (test code = GAP) 7.8 10-20 L GLUCOSE (test code = GLU) 80 mg/dL 74-106 N BLOOD UREA NITROGEN (test code = BUN) 6 mg/dL 7-18 L GLOMERULAR FILTRATION RATE (test code = GFR) > 60 mL/min >=60 Estimated GFR by using Modified MDRD formula.Chronic kidney disease is defined as either kidney damageor GFR <60 mL/min/1.73 m2 for >3 months. CREATININE (test code = CREAT) 0.20 mg/dL 0.55-1.02 L Note change in reference range due to change in reagent. BUN/CREATININE RATIO (test code = BUN/CREA) 29.6 10-20 H CALCIUM (test code = CA) 8.4 mg/dL 8.5-10.1 L BASIC METABOLIC [id number] 09:41:00* Test Item Value Reference Range Interpretation Comments SODIUM (test code = NA) 141 mmol/L 136-145 N POTASSIUM (test code = K) 3.8 mmol/L 3.5-5.1 N CHLORIDE (test code = CL) 111.0 mmol/L 98-107 H CARBON DIOXIDE (test code = CO2) mmol/L 21-32 ANION GAP (test code = GAP) 10-20 GLUCOSE (test code = GLU) mg/dL 74-106 BLOOD UREA NITROGEN (test code = BUN) mg/dL 7-18 GLOMERULAR FILTRATION RATE (test code = GFR) mL/min >=60 CREATININE (test code = CREAT) mg/dL 0.55-1.02 BUN/CREATININE RATIO (test code = BUN/CREA) 10-20 CALCIUM (test code = CA) mg/dL 8.5-10.1 [id number] 01:35:00* Test Item Value Reference Range Interpretation Comments GENTAMICIN (test code = GENT) 4.2 mg/mL 4-8.0 N GENTAMICIN TOXIC LEVEL: >12 UG/ML [id number] 13:09:00* Test Item Value Reference Range Interpretation Comments MAGNESIUM (test code = MAG) 1.7 mg/dL 1.8-2.4 L BASIC METABOLIC [id number] 06:41:00* Test Item Value Reference Range Interpretation Comments SODIUM (test code = NA) 144 mmol/L 136-145 N POTASSIUM (test code = K) 2.9 mmol/L 3.5-5.1 L Re sults called to [id number] by V.FANI.JOSE 05/09/19 0641Critical results verified and read back by Nurse? Y CHLORIDE (test code = CL) 114.0 mmol/L 98-107 H CARBON DIOXIDE (test code = CO2) 22.0 mmol/L 21-32 N ANION GAP (test code = GAP) 10.9 10-20 N GLUCOSE (test code = GLU) 67 mg/dL 74-106 L BLOOD UREA NITROGEN (test code = BUN) 7 mg/dL 7-18 N GLOMERULAR FILTRATION RATE (test code = GFR) > 60 mL/min >=60 Estimated GFR by using Modified MDRD formula.Chronic kidney disease is defined as either kidney damageor GFR <60 mL/min/1.73 m2 for >3 months. CREATININE (test code = CREAT) 0.20 mg/dL 0.55-1.02 L Note change in reference range due to change in reagent. BUN/CREATININE RATIO (test code = BUN/CREA) 33.7 10-20 H CALCIUM (test code = CA) 7.9 mg/dL 8.5-10.1 L CBC W/AUTO [id number] 06:08:00* Test Item Value Reference Range Interpretation Comments WHITE BLOOD CELL (test code = WBC) 5.2 K/mm3 4.5-12.5 N RED BLOOD CELL (test code = RBC) 2.38 mill/mm3 3.7-5.2 L HEMOGLOBIN (test code = HGB) 7.8 gram/dL 11.5-15.5 L HEMATOCRIT (test code = HCT) 24.9 % 36.0-46.0 L MEAN CELL VOLUME (test code = MCV) 104.6 fL 80-98 H MEAN CELL HGB (test code = MCH) 32.8 picogram 27.0-33.0 N MEAN CELL HGB CONCETRATION (test code = MCHC) 31.3 gram/dL 33.0-36. 0 L RED CELL DISTRIBUTION WIDTH (test code = RDW) 18.6 % 11.6-16. 2 H RED CELL DISTRIBUTION WIDTH SD (test code = RDW-SD) 69.7 fL 37 .0-51.0 H PLATELET COUNT (test code = PLT) 298 K/mm3 150-450 N MEAN PLATELET VOLUME (test code = MPV) 10.1 fL 6.7-11.0 N NEUTROPHIL % (test code = NT%) 70.6 % 39.0-69.0 H IMMATURE GRANULOCYTE % (test code = IG%) 1.0 % 0.0-5.0 N LYMPHOCYTE % (test code = LY%) 11.2 % 25.0-55.0 L MONOCYTE % (test code = MO%) 14.7 % 0.0-10.0 H EOSINOPHIL % (test code = EO%) 2.1 % 0.0-5.0 N BASOPHIL % (test code = BA%) 0.4 % 0.0-1.0 N NUCLEATED RBC % (test code = NRBC%) 0.0 % 0-0 N NEUTROPHIL # (test code = NT#) 3.64 K/mm3 1.8-7.7 N IMMATURE GRANULOCYTE # (test code = IG#) 0.05 x10 3/uL 0-0.03 H LYMPHOCYTE # (test code = LY#) 0.58 K/mm3 1.0-5.0 L MONOCYTE # (test code = MO#) 0.76 K/mm3 0-0.8 N EOSINOPHIL # (test code = EO#) 0.11 K/mm3 0.0-0.5 N BASOPHIL # (test code = BA#) 0.02 K/mm3 0.0-0.2 N NUCLEATED RBC # (test code = NRBC#) 0.00 K/mm3 0.0-0.1 N MANUAL DIFF REQUIRED (test code = MDIFF) NO BASIC METABOLIC [id number] 06:00:00* Test Item Value Reference Range Interpretation Comments SODIUM (test code = NA) 143 mmol/L 136-145 N POTASSIUM (test code = K) 3.3 mmol/L 3.5-5.1 L CHLORIDE (test code = CL) 111.0 mmol/L 98-107 H CARBON DIOXIDE (test code = CO2) 24.0 mmol/L 21-32 N ANION GAP (test code = GAP) 11.3 10-20 N GLUCOSE (test code = GLU) 69 mg/dL 74-106 L BLOOD UREA NITROGEN (test code = BUN) 9 mg/dL 7-18 N GLOMERULAR FILTRATION RATE (test code = GFR) > 60 mL/min >=60 Estimated GFR by using Modified MDRD formula.Chronic kidney disease is defined as either kidney damageor GFR <60 mL/min/1.73 m2 for >3 months. CREATININE (test code = CREAT) 0.30 mg/dL 0.55-1.02 L Note change in reference range due to change in reagent. BUN/CREATININE RATIO (test code = BUN/CREA) 35.9 10-20 H CALCIUM (test code = CA) 8.1 mg/dL 8.5-10.1 L FE W/TOTAL IRON BINDING CAP.2019-05-08 06:00:00* Test Item Value Reference Range Interpretation Comments SERUM IRON (test code = IRON) 17 ug/dL 50-175 L TOTAL IRON BINDING CAPACITY (test code = TIBC) 87 mcg/dL 250-450 L IRON SATURATION (test code = FESAT) 19.54 % 13-45 N VITAMIN [id number] 06:00:00* Test Item Value Reference Range Interpretation Comments VITAMIN B12 (test code = VITB12) 585 pg/mL 193-986 N FOLIC [id number] 06:00:00* Test Item Value Reference Range Interpretation Comments FOLIC ACID (test code = FOL) 28.5 ng/mL 3.10-17.50 H THYROID STIMULATING [id number] 06:00:00* Test Item Value Reference Range Interpretation Comments THYROID STIMULATING HORMONE (test code = TSH) 4.190 uIU/mL 0.36-3.7 4 H TSH REFERENCE RANGES: EUTHYROID: 0.35 - 4.3 mIU/mL HYPO : > 5.5 mIU/mL HYPER : < 0.35 mIU/mL [id number] 06:00:00* Test Item Value Reference Range Interpretation Comments FERRITIN (test code = MINO) 1612 ng/mL 8-388 H BASIC METABOLIC [id number] 05:06:00* Test Item Value Reference Range Interpretation Comments SODIUM (test code = NA) 143 mmol/L 136-145 N POTASSIUM (test code = K) 3.3 mmol/L 3.5-5.1 L CHLORIDE (test code = CL) 111.0 mmol/L 98-107 H CARBON DIOXIDE (test code = CO2) mmol/L 21-32 ANION GAP (test code = GAP) 10-20 GLUCOSE (test code = GLU) mg/dL 74-106 BLOOD UREA NITROGEN (test code = BUN) mg/dL 7-18 GLOMERULAR FILTRATION RATE (test code = GFR) mL/min >=60 CREATININE (test code = CREAT) mg/dL 0.55-1.02 BUN/CREATININE RATIO (test code = BUN/CREA) 10-20 CALCIUM (test code = CA) mg/dL 8.5-10.1 FE W/TOTAL IRON BINDING CAP.2019-05-08 05:06:00* Test Item Value Reference Range Interpretation Comments SERUM IRON (test code = IRON) ug/dL 50-175 TOTAL IRON BINDING CAPACITY (test code = TIBC) mcg/dL 250-450 IRON SATURATION (test code = FESAT) % 13-45 VITAMIN [id number] 05:06:00* Test Item Value Reference Range Interpretation Comments VITAMIN B12 (test code = VITB12) pg/mL 193-986 FOLIC [id number] 05:06:00* Test Item Value Reference Range Interpretation Comments FOLIC ACID (test code = FOL) ng/mL 3.10-17.50 THYROID STIMULATING [id number] 05:06:00* Test Item Value Reference Range Interpretation Comments THYROID STIMULATING HORMONE (test code = TSH) uIU/mL 0.36-3.7 4 [id number] 05:06:00* Test Item Value Reference Range Interpretation Comments FERRITIN (test code = MINO) ng/mL 8-388 CBC W/AUTO [id number] 04:55:00* Test Item Value Reference Range Interpretation Comments WHITE BLOOD CELL (test code = WBC) 8.2 K/mm3 4.5-12.5 N RED BLOOD CELL (test code = RBC) 2.39 mill/mm3 3.7-5.2 L HEMOGLOBIN (test code = HGB) 7.6 gram/dL 11.5-15.5 L HEMATOCRIT (test code = HCT) 23.8 % 36.0-46.0 L MEAN CELL VOLUME (test code = MCV) 99.6 fL 80-98 H MEAN CELL HGB (test code = MCH) 31.8 picogram 27.0-33.0 N MEAN CELL HGB CONCETRATION (test code = MCHC) 31.9 gram/dL 33.0-36. 0 L RED CELL DISTRIBUTION WIDTH (test code = RDW) 19.0 % 11.6-16. 2 H RED CELL DISTRIBUTION WIDTH SD (test code = RDW-SD) 69.6 fL 37 .0-51.0 H PLATELET COUNT (test code = PLT) 269 K/mm3 150-450 N MEAN PLATELET VOLUME (test code = MPV) 9.9 fL 6.7-11.0 N NEUTROPHIL % (test code = NT%) 79.5 % 39.0-69.0 H IMMATURE GRANULOCYTE % (test code = IG%) 0.6 % 0.0-5.0 N LYMPHOCYTE % (test code = LY%) 7.3 % 25.0-55.0 L MONOCYTE % (test code = MO%) 11.9 % 0.0-10.0 H EOSINOPHIL % (test code = EO%) 0.6 % 0.0-5.0 N BASOPHIL % (test code = BA%) 0.1 % 0.0-1.0 N NUCLEATED RBC % (test code = NRBC%) 0.0 % 0-0 N NEUTROPHIL # (test code = NT#) 6.55 K/mm3 1.8-7.7 N IMMATURE GRANULOCYTE # (test code = IG#) 0.05 x10 3/uL 0-0.03 H LYMPHOCYTE # (test code = LY#) 0.60 K/mm3 1.0-5.0 L MONOCYTE # (test code = MO#) 0.98 K/mm3 0-0.8 H EOSINOPHIL # (test code = EO#) 0.05 K/mm3 0.0-0.5 N BASOPHIL # (test code = BA#) 0.01 K/mm3 0.0-0.2 N NUCLEATED RBC # (test code = NRBC#) 0.00 K/mm3 0.0-0.1 N MANUAL DIFF REQUIRED (test code = MDIFF) NO LACTIC [id number] 00:14:00* Test Item Value Reference Range Interpretation Comments LACTIC ACID (test code = LACT) 1.2 mmol/L 0.4-1.9 N - CTA [id number] 23:23:00 Name: OLEG STEINER [facility] : 1960 Age/S: 58 / F [address] [facility] Unit #: [id number] Loc: [place] [address] Phys: Kiel Zelaya MD Acct: [id number] Dis Date: Status: REG ER PHONE #: [phone] Exam Date: 05/06/20192251 FAX #: [phone] Reason: sob r/o pe EXAMS: CPT CODE: [id number] CTA CHEST 95789 REASON FOR EXAM: sob r/o pe EXAM ORDER DATE: 05/06/2019 10:02 PM Ordering M.D.: Kiel Zelaya MD PROCEDURE: - CTA CHEST [...] PAGE 1 Signed Report (CONTINUED) N curry: OBDULIAFREDDIE GILBERTLINE [facility] : 0 1960 Age/S: 58 / F [address] [facility] Unit #: [id number] Loc: Effie [place] [address] Phys: Aaron Zelaya MD Acct: [id number] Dis D ate: Status: REG ER PHONE #: Exam Date: 05/06/20192251 FAX #: [phone] Reason: sob r/o pe EXAMS: CPT CODE: [id number] CTA CHEST 42797 <Continued> Lymph nodes: No axillary, internal mammary, [...] at 11:20 PM May 06 19 at 2323 Reported and signed by: Ted Sanchez MD CC: Kiel Ware MD Technologist:KERRI JACOBO CT; ... CTDI: DLP: Trnscb Date/Time: 05/06/2019 (655) raf [id number] Orig Print D/T: S: 05/06/2019 (4694) PAGE 2 Signed Report URINALYSIS [id number] 22:20:00* Test Item Value Reference Range Interpretation Comments UA COLOR (test code = COLU) YELLOW YELLOW UA APPEARANCE (test code = APPU) HAZY CLEAR A UA GLUCOSE DIPSTICK (test code = DGLUU) NEGATIVE mg/dL NEGATIVE UA BILIRUBIN DIPSTICK (test code = BILU) NEGATIVE NEGATIVE UA KETONE DIPSTICK (test code = KETU) NEGATIVE mg/dL NEGATIVE UA SPECIFIC GRAVITY (test code = SGU) 1.010 1.001-1.035 UA BLOOD DIPSTICK (test code = JORGE) TRACE NEGATIVE UA PH DIPSTICK (test code = MAGED) 7.5 5.0-8.0 UA PROTEIN DIPSTICK (test code = PROU) TRACE (15) mg/dL Neg-15 UA UROBILINIOGEN DIPSTICK (test code = URO) 0.2 mg/dL 0.0-0.2 UA NITRITE DIPSTICK (test code = BHARATH) POSITIVE NEGATIVE UA LEUKOCYTE ESTERASE W REFLEX (test code = LEUUR) 2+ NEG ATIVE A UA WBC (test code = WBCU) 20-30 per HPF 0-5 A UA RBC (test code = RBCU) 10-15 per HPF 0-5 A UA EPITHELIAL CELLS (test code = EPIU) Few (2-5/hpf) per HPF Few UA BACTERIA (test code = BACU) MODERATE per HPF NONE A UA TRIPLE PHOSPHATE CRYSTALS (test code = TRPHOSU) FEW per LPF NON E A UA GRANULAR CAST (test code = GRANU) 2-5 #/LPF NONE A UA MUCUS (test code = MUCU) FEW per LPF NONE-FEW UA AMORPHOUS SEDIMENT (test code = AMORU) FEW per LPF NONE A UA YEAST (test code = YEASTU) FEW per HPF NONE A Urine Source? Clean CatchURINALYSIS [id number] 22:16:00* Test Item Value Reference Range Interpretation Comments UA COLOR (test code = COLU) YELLOW YELLOW UA APPEARANCE (test code = APPU) HAZY CLEAR A UA GLUCOSE DIPSTICK (test code = DGLUU) NEGATIVE mg/dL NEGATIVE UA BILIRUBIN DIPSTICK (test code = BILU) NEGATIVE NEGATIVE UA KETONE DIPSTICK (test code = KETU) NEGATIVE mg/dL NEGATIVE UA SPECIFIC GRAVITY (test code = SGU) 1.010 1.001-1.035 UA BLOOD DIPSTICK (test code = JORGE) TRACE NEGATIVE UA PH DIPSTICK (test code = MAGED) 7.5 5.0-8.0 UA PROTEIN DIPSTICK (test code = PROU) TRACE (15) mg/dL Neg-15 UA UROBILINIOGEN DIPSTICK (test code = URO) 0.2 mg/dL 0.0-0.2 UA NITRITE DIPSTICK (test code = BHARATH) POSITIVE NEGATIVE UA LEUKOCYTE ESTERASE W REFLEX (test code = LEUUR) 2+ NEG ATIVE A UA WBC (test code = WBCU) per HPF 0-5 UA RBC (test code = RBCU) per HPF 0-5 UA EPITHELIAL CELLS (test code = EPIU) per HPF Few UA BACTERIA (test code = BACU) per HPF NONE Urine Source? Clean CatchB-TYPE NATRIURETIC [id number] 22:15:00* Test Item Value Reference Range Interpretation Comments B-TYPE NATRIURETIC PEPTIDE (test code = BNP) 38.72 pgram/mL 0-100 N PROCALCITONIN (PCT)2019-05-06 22:14:00* Test Item Value Reference Range Interpretation Comments PROCALCITONIN (PCT) (test code = PROCAL) 0.10 ng/ml Concentration Interpretation (ng/mL) <0.51 Sepsis [...] taking into account the patients history. PROTHROMBIN [id number] 22:05:00* Test Item Value Reference Range Interpretation Comments PROTHROMBIN TIME PATIENT (test code = PTP) 12.3 seconds 9.0-14.0 N INTERNATIONAL NORMAL RATIO (test code = INR) 1.0 0.8-1.2 N The therapeutic range for oral anticoagulant therapy [...] (2.5-3.5) IS PATIENT ON ANTICOAGULANTS? NTHROMBOPLASTIN TIME [id number] 22:05:00* Test Item Value Reference Range Interpretation Comments THROMBOPLASTIN TIME PARTIAL (test code = PTT) 24.7 seconds 25.0-36. 5 L IS PATIENT ON ANTICOAGULANTS? NCBC W/AUTO [id number] 22:00:00* Test Item Value Reference Range Interpretation Comments WHITE BLOOD CELL (test code = WBC) 7.7 K/mm3 4.5-12.5 N RED BLOOD CELL (test code = RBC) 2.96 mill/mm3 3.7-5.2 L HEMOGLOBIN (test code = HGB) 9.4 gram/dL 11.5-15.5 L HEMATOCRIT (test code = HCT) 29.2 % 36.0-46.0 L MEAN CELL VOLUME (test code = MCV) 98.6 fL 80-98 H MEAN CELL HGB (test code = MCH) 31.8 picogram 27.0-33.0 N MEAN CELL HGB CONCETRATION (test code = MCHC) 32.2 gram/dL 33.0-36. 0 L RED CELL DISTRIBUTION WIDTH (test code = RDW) 18.6 % 11.6-16. 2 H RED CELL DISTRIBUTION WIDTH SD (test code = RDW-SD) 66.6 fL 37 .0-51.0 H PLATELET COUNT (test code = PLT) 231 K/mm3 150-450 N MEAN PLATELET VOLUME (test code = MPV) 10.5 fL 6.7-11.0 N NEUTROPHIL % (test code = NT%) 79.9 % 39.0-69.0 H IMMATURE GRANULOCYTE % (test code = IG%) 0.8 % 0.0-5.0 N LYMPHOCYTE % (test code = LY%) 9.6 % 25.0-55.0 L MONOCYTE % (test code = MO%) 9.3 % 0.0-10.0 N EOSINOPHIL % (test code = EO%) 0.3 % 0.0-5.0 N BASOPHIL % (test code = BA%) 0.1 % 0.0-1.0 N NUCLEATED RBC % (test code = NRBC%) 0.0 % 0-0 N NEUTROPHIL # (test code = NT#) 6.13 K/mm3 1.8-7.7 N IMMATURE GRANULOCYTE # (test code = IG#) 0.06 x10 3/uL 0-0.03 H LYMPHOCYTE # (test code = LY#) 0.74 K/mm3 1.0-5.0 L MONOCYTE # (test code = MO#) 0.71 K/mm3 0-0.8 N EOSINOPHIL # (test code = EO#) 0.02 K/mm3 0.0-0.5 N BASOPHIL # (test code = BA#) 0.01 K/mm3 0.0-0.2 N NUCLEATED RBC # (test code = NRBC#) 0.00 K/mm3 0.0-0.1 N MANUAL DIFF REQUIRED (test code = MDIFF) NO, ONLY SCAN NEEDED DIFFERENTIAL [id number] 22:00:00* Test Item Value Reference Range Interpretation Comments STAIN ACCEPTABILITY (test code = STN ACCEPTABLE) STAIN ACCEPTABLE POIKILOCYTOSIS (test code = POIK) 1+ ANISOCYTOSIS (test code = ANISO) 1+ PLATELET ESTIMATE (test code = PLTEST) ADEQUATE PLATELET MORPHOLOGY (test code = PLTMORPH) NORMAL BASIC METABOLIC [id number] 22:00:00* Test Item Value Reference Range Interpretation Comments SODIUM (test code = NA) 138 mmol/L 136-145 N POTASSIUM (test code = K) 4.2 mmol/L 3.5-5.1 N CHLORIDE (test code = CL) 104.0 mmol/L 98-107 N CARBON DIOXIDE (test code = CO2) 27.0 mmol/L 21-32 N ANION GAP (test code = GAP) 11.2 10-20 N GLUCOSE (test code = GLU) 116 mg/dL 74-106 H BLOOD UREA NITROGEN (test code = BUN) 15 mg/dL 7-18 N GLOMERULAR FILTRATION RATE (test code = GFR) > 60 mL/min >=60 Estimated GFR by using Modified MDRD formula.Chronic kidney disease is defined as either kidney damageor GFR <60 mL/min/1.73 m2 for >3 months. CREATININE (test code = CREAT) 0.30 mg/dL 0.55-1.02 L Note change in reference range due to change in reagent. BUN/CREATININE RATIO (test code = BUN/CREA) 44.1 10-20 H CALCIUM (test code = CA) 8.6 mg/dL 8.5-10.1 N HEPATIC FUNCTION [id number] 22:00:00* Test Item Value Reference Range Interpretation Comments TOTAL PROTEIN (test code = PROT) 5.6 gram/dL 6.4-8.2 L ALBUMIN (test code = ALB) 1.6 g/dL 3.4-5.0 L GLOBULIN (test code = GLOB) 4.0 gram/dL 2.7-4.2 N ALBUMIN/GLOBULIN RATIO (test code = A/G) 0.4 0.75-1.50 L BILIRUBIN TOTAL (test code = BILT) 0.10 mg/dL 0.0-1.0 N BILIRUBIN DIRECT (test code = BILD) 0.08 mg/dL 0.0-0.20 N SGOT/AST (test code = AST) 30 IUnit/L 15-37 N SGPT/ALT (test code = ALT) 26 IUnit/L 12-78 N ALKALINE PHOSPHATASE TOTAL (test code = ALKP) 89 IUnit/L 45-117 N Note change in reference range due to change in reagent. [id number] 22:00:00* Test Item Value Reference Range Interpretation Comments TROPONIN-I (test code = TROPI) <0.015 ng/mL 0-0.045 N BASIC METABOLIC [id number] 21:50:00* Test Item Value Reference Range Interpretation Comments SODIUM (test code = NA) 138 mmol/L 136-145 N POTASSIUM (test code = K) 4.2 mmol/L 3.5-5.1 N CHLORIDE (test code = CL) 104.0 mmol/L 98-107 N CARBON DIOXIDE (test code = CO2) mmol/L 21-32 ANION GAP (test code = GAP) 10-20 GLUCOSE (test code = GLU) mg/dL 74-106 BLOOD UREA NITROGEN (test code = BUN) mg/dL 7-18 GLOMERULAR FILTRATION RATE (test code = GFR) mL/min >=60 CREATININE (test code = CREAT) mg/dL 0.55-1.02 BUN/CREATININE RATIO (test code = BUN/CREA) 10-20 CALCIUM (test code = CA) mg/dL 8.5-10.1 HEPATIC FUNCTION [id number] 21:50:00* Test Item Value Reference Range Interpretation Comments TOTAL PROTEIN (test code = PROT) gram/dL 6.4-8.2 ALBUMIN (test code = ALB) g/dL 3.4-5.0 GLOBULIN (test code = GLOB) gram/dL 2.7-4.2 ALBUMIN/GLOBULIN RATIO (test code = A/G) 0.75-1.50 BILIRUBIN TOTAL (test code = BILT) mg/dL 0.0-1.0 BILIRUBIN DIRECT (test code = BILD) mg/dL 0.0-0.20 SGOT/AST (test code = AST) IUnit/L 15-37 SGPT/ALT (test code = ALT) IUnit/L 12-78 ALKALINE PHOSPHATASE TOTAL (test code = ALKP) IUnit/L 45-117 [id number] 21:50:00* Test Item Value Reference Range Interpretation Comments TROPONIN-I (test code = TROPI) ng/mL 0-0.045 CBC W/AUTO [id number] 21:39:00* Test Item Value Reference Range Interpretation Comments WHITE BLOOD CELL (test code = WBC) 7.7 K/mm3 4.5-12.5 N RED BLOOD CELL (test code = RBC) 2.96 mill/mm3 3.7-5.2 L HEMOGLOBIN (test code = HGB) 9.4 gram/dL 11.5-15.5 L HEMATOCRIT (test code = HCT) 29.2 % 36.0-46.0 L MEAN CELL VOLUME (test code = MCV) 98.6 fL 80-98 H MEAN CELL HGB (test code = MCH) 31.8 picogram 27.0-33.0 N MEAN CELL HGB CONCETRATION (test code = MCHC) 32.2 gram/dL 33.0-36. 0 L RED CELL DISTRIBUTION WIDTH (test code = RDW) 18.6 % 11.6-16. 2 H RED CELL DISTRIBUTION WIDTH SD (test code = RDW-SD) 66.6 fL 37 .0-51.0 H PLATELET COUNT (test code = PLT) 231 K/mm3 150-450 N MEAN PLATELET VOLUME (test code = MPV) 10.5 fL 6.7-11.0 N NEUTROPHIL % (test code = NT%) 79.9 % 39.0-69.0 H IMMATURE GRANULOCYTE % (test code = IG%) 0.8 % 0.0-5.0 N LYMPHOCYTE % (test code = LY%) 9.6 % 25.0-55.0 L MONOCYTE % (test code = MO%) 9.3 % 0.0-10.0 N EOSINOPHIL % (test code = EO%) 0.3 % 0.0-5.0 N BASOPHIL % (test code = BA%) 0.1 % 0.0-1.0 N NUCLEATED RBC % (test code = NRBC%) 0.0 % 0-0 N NEUTROPHIL # (test code = NT#) 6.13 K/mm3 1.8-7.7 N IMMATURE GRANULOCYTE # (test code = IG#) 0.06 x10 3/uL 0-0.03 H LYMPHOCYTE # (test code = LY#) 0.74 K/mm3 1.0-5.0 L MONOCYTE # (test code = MO#) 0.71 K/mm3 0-0.8 N EOSINOPHIL # (test code = EO#) 0.02 K/mm3 0.0-0.5 N BASOPHIL # (test code = BA#) 0.01 K/mm3 0.0-0.2 N NUCLEATED RBC # (test code = NRBC#) 0.00 K/mm3 0.0-0.1 N MANUAL DIFF REQUIRED (test code = MDIFF) NO, ONLY SCAN NEEDED DIFFERENTIAL [id number] 21:39:00* Test Item Value Reference Range Interpretation Comments STAIN ACCEPTABILITY (test code = STN ACCEPTABLE) CABOT RINGS (test code = CAB) MORPHOLOGY COMMENT (test code = MOC) PLATELET ESTIMATE (test code = PLTEST) PLATELET MORPHOLOGY (test code = PLTMORPH) CBC W/AUTO [id number] 21:39:00* Test Item Value Reference Range Interpretation Comments WHITE BLOOD CELL (test code = WBC) 7.7 K/mm3 4.5-12.5 N RED BLOOD CELL (test code = RBC) 2.96 mill/mm3 3.7-5.2 L HEMOGLOBIN (test code = HGB) 9.4 gram/dL 11.5-15.5 L HEMATOCRIT (test code = HCT) 29.2 % 36.0-46.0 L MEAN CELL VOLUME (test code = MCV) 98.6 fL 80-98 H MEAN CELL HGB (test code = MCH) 31.8 picogram 27.0-33.0 N MEAN CELL HGB CONCETRATION (test code = MCHC) 32.2 gram/dL 33.0-36. 0 L RED CELL DISTRIBUTION WIDTH (test code = RDW) 18.6 % 11.6-16. 2 H RED CELL DISTRIBUTION WIDTH SD (test code = RDW-SD) 66.6 fL 37 .0-51.0 H PLATELET COUNT (test code = PLT) 231 K/mm3 150-450 N MEAN PLATELET VOLUME (test code = MPV) 10.5 fL 6.7-11.0 N NEUTROPHIL % (test code = NT%) 79.9 % 39.0-69.0 H IMMATURE GRANULOCYTE % (test code = IG%) 0.8 % 0.0-5.0 N LYMPHOCYTE % (test code = LY%) 9.6 % 25.0-55.0 L MONOCYTE % (test code = MO%) 9.3 % 0.0-10.0 N EOSINOPHIL % (test code = EO%) 0.3 % 0.0-5.0 N BASOPHIL % (test code = BA%) 0.1 % 0.0-1.0 N NUCLEATED RBC % (test code = NRBC%) 0.0 % 0-0 N NEUTROPHIL # (test code = NT#) 6.13 K/mm3 1.8-7.7 N IMMATURE GRANULOCYTE # (test code = IG#) 0.06 x10 3/uL 0-0.03 H LYMPHOCYTE # (test code = LY#) 0.74 K/mm3 1.0-5.0 L MONOCYTE # (test code = MO#) 0.71 K/mm3 0-0.8 N EOSINOPHIL # (test code = EO#) 0.02 K/mm3 0.0-0.5 N BASOPHIL # (test code = BA#) 0.01 K/mm3 0.0-0.2 N NUCLEATED RBC # (test code = NRBC#) 0.00 K/mm3 0.0-0.1 N MANUAL DIFF REQUIRED (test code = MDIFF) NO, ONLY SCAN NEEDED DIFFERENTIAL [id number] 21:39:00* Test Item Value Reference Range Interpretation Comments STAIN ACCEPTABILITY (test code = STN ACCEPTABLE) MORPHOLOGY COMMENT (test code = MOC) PLATELET ESTIMATE (test code = PLTEST) PLATELET MORPHOLOGY (test code = PLTMORPH) CBC W/AUTO [id number] 21:39:00* Test Item Value Reference Range Interpretation Comments WHITE BLOOD CELL (test code = WBC) 7.7 K/mm3 4.5-12.5 N RED BLOOD CELL (test code = RBC) 2.96 mill/mm3 3.7-5.2 L HEMOGLOBIN (test code = HGB) 9.4 gram/dL 11.5-15.5 L HEMATOCRIT (test code = HCT) 29.2 % 36.0-46.0 L MEAN CELL VOLUME (test code = MCV) 98.6 fL 80-98 H MEAN CELL HGB (test code = MCH) 31.8 picogram 27.0-33.0 N MEAN CELL HGB CONCETRATION (test code = MCHC) 32.2 gram/dL 33.0-36. 0 L RED CELL DISTRIBUTION WIDTH (test code = RDW) 18.6 % 11.6-16. 2 H RED CELL DISTRIBUTION WIDTH SD (test code = RDW-SD) 66.6 fL 37 .0-51.0 H PLATELET COUNT (test code = PLT) 231 K/mm3 150-450 N MEAN PLATELET VOLUME (test code = MPV) 10.5 fL 6.7-11.0 N NEUTROPHIL % (test code = NT%) 79.9 % 39.0-69.0 H IMMATURE GRANULOCYTE % (test code = IG%) 0.8 % 0.0-5.0 N LYMPHOCYTE % (test code = LY%) 9.6 % 25.0-55.0 L MONOCYTE % (test code = MO%) 9.3 % 0.0-10.0 N EOSINOPHIL % (test code = EO%) 0.3 % 0.0-5.0 N BASOPHIL % (test code = BA%) 0.1 % 0.0-1.0 N NUCLEATED RBC % (test code = NRBC%) 0.0 % 0-0 N NEUTROPHIL # (test code = NT#) 6.13 K/mm3 1.8-7.7 N IMMATURE GRANULOCYTE # (test code = IG#) 0.06 x10 3/uL 0-0.03 H LYMPHOCYTE # (test code = LY#) 0.74 K/mm3 1.0-5.0 L MONOCYTE # (test code = MO#) 0.71 K/mm3 0-0.8 N EOSINOPHIL # (test code = EO#) 0.02 K/mm3 0.0-0.5 N BASOPHIL # (test code = BA#) 0.01 K/mm3 0.0-0.2 N NUCLEATED RBC # (test code = NRBC#) 0.00 K/mm3 0.0-0.1 N MANUAL DIFF REQUIRED (test code = MDIFF) NO, ONLY SCAN NEEDED DIFFERENTIAL [id number] 21:39:00* Test Item Value Reference Range Interpretation Comments STAIN ACCEPTABILITY (test code = STN ACCEPTABLE) MORPHOLOGY COMMENT (test code = MOC) PLATELET ESTIMATE (test code = PLTEST) PLATELET MORPHOLOGY (test code = PLTMORPH) CBC W/AUTO [id number] 21:39:00* Test Item Value Reference Range Interpretation Comments WHITE BLOOD CELL (test code = WBC) 7.7 K/mm3 4.5-12.5 N RED BLOOD CELL (test code = RBC) 2.96 mill/mm3 3.7-5.2 L HEMOGLOBIN (test code = HGB) 9.4 gram/dL 11.5-15.5 L HEMATOCRIT (test code = HCT) 29.2 % 36.0-46.0 L MEAN CELL VOLUME (test code = MCV) 98.6 fL 80-98 H MEAN CELL HGB (test code = MCH) 31.8 picogram 27.0-33.0 N MEAN CELL HGB CONCETRATION (test code = MCHC) 32.2 gram/dL 33.0-36. 0 L RED CELL DISTRIBUTION WIDTH (test code = RDW) 18.6 % 11.6-16. 2 H RED CELL DISTRIBUTION WIDTH SD (test code = RDW-SD) 66.6 fL 37 .0-51.0 H PLATELET COUNT (test code = PLT) 231 K/mm3 150-450 N MEAN PLATELET VOLUME (test code = MPV) 10.5 fL 6.7-11.0 N NEUTROPHIL % (test code = NT%) 79.9 % 39.0-69.0 H IMMATURE GRANULOCYTE % (test code = IG%) 0.8 % 0.0-5.0 N LYMPHOCYTE % (test code = LY%) 9.6 % 25.0-55.0 L MONOCYTE % (test code = MO%) 9.3 % 0.0-10.0 N EOSINOPHIL % (test code = EO%) 0.3 % 0.0-5.0 N BASOPHIL % (test code = BA%) 0.1 % 0.0-1.0 N NUCLEATED RBC % (test code = NRBC%) 0.0 % 0-0 N NEUTROPHIL # (test code = NT#) 6.13 K/mm3 1.8-7.7 N IMMATURE GRANULOCYTE # (test code = IG#) 0.06 x10 3/uL 0-0.03 H LYMPHOCYTE # (test code = LY#) 0.74 K/mm3 1.0-5.0 L MONOCYTE # (test code = MO#) 0.71 K/mm3 0-0.8 N EOSINOPHIL # (test code = EO#) 0.02 K/mm3 0.0-0.5 N BASOPHIL # (test code = BA#) 0.01 K/mm3 0.0-0.2 N NUCLEATED RBC # (test code = NRBC#) 0.00 K/mm3 0.0-0.1 N MANUAL DIFF REQUIRED (test code = MDIFF) NO, ONLY SCAN NEEDED DIFFERENTIAL [id number] 21:39:00* Test Item Value Reference Range Interpretation Comments STAIN ACCEPTABILITY (test code = STN ACCEPTABLE) CABOT RINGS (test code = CAB) MORPHOLOGY COMMENT (test code = MOC) PLATELET ESTIMATE (test code = PLTEST) PLATELET MORPHOLOGY (test code = PLTMORPH) - XR CHEST 1 [id number] 21:30:00 FAX: Kiel Mathew [phone] [place]: St: REG Name: Atul MALIAOLEG [facility] : [birth year] Age/S: 58/F [address] [facility] Unit #: [id number] Loc: [place] [address] Phys: Kiel Zelaya MD Acct: [id number] Dis Date: Status: REG ER PHONE #: [phone] Exam Date: 05/06/20192119 FAX #: [phone] Reason: CODE SEPSIS EXAMS: CPT CODE: [id number] XR CHEST 1 V 76314 REASON FOR EXAM: CODE SEPSIS Exam Order Date: 05/06/2019 9:11 PM Ordering M.DDeepali: Kiel Zelaya MD PROCEDURE: - XR CHEST 1 V CO MPARISON: AP chest x-ray March 09, 2019 as well as AP chest x-ray March 02 19 FINDINGS: IVC filter and left subclavian Port-A-Cath [...] atelectasis and/o r small pleural effusion. at 2129 Reported and signed by: Ted Sanchez MD CC: Kiel Zelaya MD Technologis t: KRYSTIAN DUCKWORTH RT(R) Trnscrd Date/Time/By: 05/06/2019 (2129) : By: [email or web address] Orig Print D/T: S: 05/06/2019 (2132) PAGE 1 Signed Report PROCALCITONIN (PCT)2019-04-09 13:38:00* Test Item Value Reference Range Interpretation Comments PROCALCITONIN (PCT) (test code = PROCAL) 0.14 ng/ml Concentration Interpretation (ng/mL) <0.51 Sepsis [...] into account the patients history. BASIC METABOLIC [id number] 13:14:00* Test Item Value Reference Range Interpretation Comments SODIUM (test code = NA) 142 mmol/L 136-145 N POTASSIUM (test code = K) 3.9 mmol/L 3.5-5.1 N CHLORIDE (test code = CL) 104.0 mmol/L 98-107 N CARBON DIOXIDE (test code = CO2) 34.0 mmol/L 21-32 H ANION GAP (test code = GAP) 7.9 10-20 L GLUCOSE (test code = GLU) 101 mg/dL 74-106 N BLOOD UREA NITROGEN (test code = BUN) 10 mg/dL 7-18 N GLOMERULAR FILTRATION RATE (test code = GFR) > 60 mL/min >=60 Estimated GFR by using Modified MDRD formula.Chronic kidney disease is defined as either kidney damageor GFR <60 mL/min/1.73 m2 for >3 months. CREATININE (test code = CREAT) 0.20 mg/dL 0.55-1.02 L Note change in reference range due to change in reagent. BUN/CREATININE RATIO (test code = BUN/CREA) 50.0 10-20 H CALCIUM (test code = CA) 8.3 mg/dL 8.5-10.1 L BASIC METABOLIC [id number] 13:07:00* Test Item Value Reference Range Interpretation Comments SODIUM (test code = NA) 142 mmol/L 136-145 N POTASSIUM (test code = K) 3.9 mmol/L 3.5-5.1 N CHLORIDE (test code = CL) 104.0 mmol/L 98-107 N CARBON DIOXIDE (test code = CO2) mmol/L 21-32 ANION GAP (test code = GAP) 10-20 GLUCOSE (test code = GLU) mg/dL 74-106 BLOOD UREA NITROGEN (test code = BUN) mg/dL 7-18 GLOMERULAR FILTRATION RATE (test code = GFR) mL/min >=60 CREATININE (test code = CREAT) mg/dL 0.55-1.02 BUN/CREATININE RATIO (test code = BUN/CREA) 10-20 CALCIUM (test code = CA) mg/dL 8.5-10.1 [id number] 12:16:00* Test Item Value Reference Range Interpretation Comments GLUBED (test code = GLUBED) 92 mg/dL 74-106 N Performed by certified threader operator at [facility] [id number] 06:08:00* Test Item Value Reference Range Interpretation Comments GLUBED (test code = GLUBED) 105 mg/dL 74-106 N Performed by certified threader operator at [facility] [id number] 20:38:00* Test Item Value Reference Range Interpretation Comments GLUBED (test code = GLUBED) 103 mg/dL 74-106 N Performed by certified threader operator at [facility] [id number] 17:39:00* Test Item Value Reference Range Interpretation Comments GLUBED (test code = GLUBED) 90 mg/dL 74-106 N Performed by certified threader operator at [facility] [id number] 12:53:00* Test Item Value Reference Range Interpretation Comments GLUBED (test code = GLUBED) 92 mg/dL 74-106 N Performed by certified threader operator at [facility] BASIC METABOLIC [id number] 09:00:00* Test Item Value Reference Range Interpretation Comments SODIUM (test code = NA) 140 mmol/L 136-145 N POTASSIUM (test code = K) 3.3 mmol/L 3.5-5.1 L CHLORIDE (test code = CL) 104.0 mmol/L 98-107 N CARBON DIOXIDE (test code = CO2) 31.0 mmol/L 21-32 N ANION GAP (test code = GAP) 8.3 10-20 L GLUCOSE (test code = GLU) 99 mg/dL 74-106 N BLOOD UREA NITROGEN (test code = BUN) 10 mg/dL 7-18 N GLOMERULAR FILTRATION RATE (test code = GFR) > 60 mL/min >=60 Estimated GFR by using Modified MDRD formula.Chronic kidney disease is defined as either kidney damageor GFR <60 mL/min/1.73 m2 for >3 months. CREATININE (test code = CREAT) 0.20 mg/dL 0.55-1.02 L Note change in reference range due to change in reagent. BUN/CREATININE RATIO (test code = BUN/CREA) 50.0 10-20 H CALCIUM (test code = CA) 7.3 mg/dL 8.5-10.1 L BASIC METABOLIC [id number] 08:53:00* Test Item Value Reference Range Interpretation Comments SODIUM (test code = NA) 140 mmol/L 136-145 N POTASSIUM (test code = K) 3.3 mmol/L 3.5-5.1 L CHLORIDE (test code = CL) 104.0 mmol/L 98-107 N CARBON DIOXIDE (test code = CO2) mmol/L 21-32 ANION GAP (test code = GAP) 10-20 GLUCOSE (test code = GLU) mg/dL 74-106 BLOOD UREA NITROGEN (test code = BUN) mg/dL 7-18 GLOMERULAR FILTRATION RATE (test code = GFR) mL/min >=60 CREATININE (test code = CREAT) mg/dL 0.55-1.02 BUN/CREATININE RATIO (test code = BUN/CREA) 10-20 CALCIUM (test code = CA) mg/dL 8.5-10.1 CBC W/O [id number] 08:42:00* Test Item Value Reference Range Interpretation Comments WHITE BLOOD CELL (test code = WBC) 6.9 K/mm3 4.5-12.5 N RED BLOOD CELL (test code = RBC) 3.67 mill/mm3 3.7-5.2 L HEMOGLOBIN (test code = HGB) 10.8 gram/dL 11.5-15.5 L HEMATOCRIT (test code = HCT) 34.1 % 36.0-46.0 L MEAN CELL VOLUME (test code = MCV) 92.9 fL 80-98 N MEAN CELL HGB (test code = MCH) 29.4 picogram 27.0-33.0 N MEAN CELL HGB CONCETRATION (test code = MCHC) 31.7 gram/dL 33.0-36. 0 L RED CELL DISTRIBUTION WIDTH (test code = RDW) 17.6 % 11.6-16. 2 H PLATELET COUNT (test code = PLT) 134 K/mm3 150-450 L MEAN PLATELET VOLUME (test code = MPV) 10.5 fL 6.7-11.0 N [id number] 07:20:00* Test Item Value Reference Range Interpretation Comments GLUBED (test code = GLUBED) 108 mg/dL 74-106 H Performed by certified threader operator at [facility] [id number] 05:17:00* Test Item Value Reference Range Interpretation Comments MAGNESIUM (test code = MAG) 1.9 mg/dL 1.8-2.4 N [id number] 21:34:00* Test Item Value Reference Range Interpretation Comments GLUBED (test code = GLUBED) 105 mg/dL 74-106 N Performed by certified threader operator at [facility] [id number] 17:16:00* Test Item Value Reference Range Interpretation Comments GLUBED (test code = GLUBED) 110 mg/dL 74-106 H Performed by certified threader operator at [facility] [id number] 17:16:00* Test Item Value Reference Range Interpretation Comments GLUBED (test code = GLUBED) 102 mg/dL 74-106 N Performed by certified threader operator at [facility] [id number] 12:29:00* Test Item Value Reference Range Interpretation Comments GLUBED (test code = GLUBED) 91 mg/dL 74-106 N Performed by certified threader operator at [facility] BASIC METABOLIC [id number] 09:18:00* Test Item Value Reference Range Interpretation Comments SODIUM (test code = NA) 141 mmol/L 136-145 N POTASSIUM (test code = K) 3.0 mmol/L 3.5-5.1 L CHLORIDE (test code = CL) 108.0 mmol/L 98-107 H CARBON DIOXIDE (test code = CO2) 28.0 mmol/L 21-32 N ANION GAP (test code = GAP) 8.0 10-20 L GLUCOSE (test code = GLU) 112 mg/dL 74-106 H BLOOD UREA NITROGEN (test code = BUN) 9 mg/dL 7-18 N GLOMERULAR FILTRATION RATE (test code = GFR) > 60 mL/min >=60 Estimated GFR by using Modified MDRD formula.Chronic kidney disease is defined as either kidney damageor GFR <60 mL/min/1.73 m2 for >3 months. CREATININE (test code = CREAT) 0.20 mg/dL 0.55-1.02 L Note change in reference range due to change in reagent. BUN/CREATININE RATIO (test code = BUN/CREA) 45.0 10-20 H CALCIUM (test code = CA) 7.8 mg/dL 8.5-10.1 L [id number] 09:18:00* Test Item Value Reference Range Interpretation Comments PHOSPHORUS (test code = PHOS) 3.8 mg/dL 2.5-4.9 N [id number] 09:18:00* Test Item Value Reference Range Interpretation Comments MAGNESIUM (test code = MAG) 1.6 mg/dL 1.8-2.4 L [id number] 22:46:00* Test Item Value Reference Range Interpretation Comments GLUBED (test code = GLUBED) 98 mg/dL 74-106 N Performed by certified threader operator at [facility] [id number] 17:02:00* Test Item Value Reference Range Interpretation Comments GLUBED (test code = GLUBED) 83 mg/dL 74-106 N Performed by certified threader operator at [facility] [id number] 12:58:00* Test Item Value Reference Range Interpretation Comments GLUBED (test code = GLUBED) 79 mg/dL 74-106 N Performed by certified threader operator at [facility] HGB [id number] 12:27:00* Test Item Value Reference Range Interpretation Comments HEMOGLOBIN (test code = HGB) 12.2 gram/dL 11.5-15.5 N HEMATOCRIT (test code = HCT) 37.0 % 36.0-46.0 N WOUNDCARE IN ROOM CHECK AFTER 15 MIN @V.LAB.SP3 04/06/[id number] 07:28:00* Test Item Value Reference Range Interpretation Comments GLUBED (test code = GLUBED) 91 mg/dL 74-106 N Performed by certified threader operator at [facility] [id number] 22:00:00* Test Item Value Reference Range Interpretation Comments GLUBED (test code = GLUBED) 86 mg/dL 74-106 N Performed by certified threader operator at [facility] CBC W/AUTO [id number] 21:29:00* Test Item Value Reference Range Interpretation Comments WHITE BLOOD CELL (test code = WBC) 9.1 K/mm3 4.5-12.5 N RED BLOOD CELL (test code = RBC) 4.10 mill/mm3 3.7-5.2 N HEMOGLOBIN (test code = HGB) 12.2 gram/dL 11.5-15.5 N HEMATOCRIT (test code = HCT) 37.3 % 36.0-46.0 N MEAN CELL VOLUME (test code = MCV) 91.0 fL 80-98 RESULT VERIFIED BY REPEAT ANALYSIS MEAN CELL HGB (test code = MCH) 29.8 picogram 27.0-33.0 N MEAN CELL HGB CONCETRATION (test code = MCHC) 32.7 gram/dL 33.0-36. 0 L RED CELL DISTRIBUTION WIDTH (test code = RDW) 17.5 % 11.6-16. 2 H RED CELL DISTRIBUTION WIDTH SD (test code = RDW-SD) 50.7 fL 37 .0-51.0 N PLATELET COUNT (test code = PLT) 207 K/mm3 150-450 RESULT VERIFIED BY REPEAT ANALYSIS MEAN PLATELET VOLUME (test code = MPV) 10.0 fL 6.7-11.0 N NEUTROPHIL % (test code = NT%) 77.8 % 39.0-69.0 H IMMATURE GRANULOCYTE % (test code = IG%) 3.0 % 0.0-5.0 N LYMPHOCYTE % (test code = LY%) 6.9 % 25.0-55.0 L MONOCYTE % (test code = MO%) 11.9 % 0.0-10.0 H EOSINOPHIL % (test code = EO%) 0.1 % 0.0-5.0 N BASOPHIL % (test code = BA%) 0.3 % 0.0-1.0 N NUCLEATED RBC % (test code = NRBC%) 0.0 % 0-0 N NEUTROPHIL # (test code = NT#) 7.04 K/mm3 1.8-7.7 N IMMATURE GRANULOCYTE # (test code = IG#) 0.27 x10 3/uL 0-0.03 H LYMPHOCYTE # (test code = LY#) 0.62 K/mm3 1.0-5.0 L MONOCYTE # (test code = MO#) 1.08 K/mm3 0-0.8 H EOSINOPHIL # (test code = EO#) 0.01 K/mm3 0.0-0.5 N BASOPHIL # (test code = BA#) 0.03 K/mm3 0.0-0.2 N NUCLEATED RBC # (test code = NRBC#) 0.00 K/mm3 0.0-0.1 N [id number] 16:46:00* Test Item Value Reference Range Interpretation Comments GLUBED (test code = GLUBED) 93 mg/dL 74-106 N Performed by certified threader operator at [facility] [id number] 12:02:00* Test Item Value Reference Range Interpretation Comments GLUBED (test code = GLUBED) 85 mg/dL 74-106 N Performed by certified threader operator at [facility] [id number] 09:01:00* Test Item Value Reference Range Interpretation Comments MAGNESIUM (test code = MAG) 1.8 mg/dL 1.8-2.4 N SPECIMEN COMMENTS: please add on to AM labBASIC METABOLIC [id number] 06:23:00* Test Item Value Reference Range Interpretation Comments SODIUM (test code = NA) 143 mmol/L 136-145 N POTASSIUM (test code = K) 4.1 mmol/L 3.5-5.1 N CHLORIDE (test code = CL) 114.0 mmol/L 98-107 H CARBON DIOXIDE (test code = CO2) 21.0 mmol/L 21-32 N ANION GAP (test code = GAP) 12.1 10-20 N GLUCOSE (test code = GLU) 91 mg/dL 74-106 N BLOOD UREA NITROGEN (test code = BUN) 12 mg/dL 7-18 N GLOMERULAR FILTRATION RATE (test code = GFR) > 60 mL/min >=60 Estimated GFR by using Modified MDRD formula.Chronic kidney disease is defined as either kidney damageor GFR <60 mL/min/1.73 m2 for >3 months. CREATININE (test code = CREAT) 0.20 mg/dL 0.55-1.02 L Note change in reference range due to change in reagent. BUN/CREATININE RATIO (test code = BUN/CREA) 60.0 10-20 H CALCIUM (test code = CA) 7.4 mg/dL 8.5-10.1 L [id number] 06:17:00* Test Item Value Reference Range Interpretation Comments GLUBED (test code = GLUBED) 88 mg/dL 74-106 N Performed by certified threader operator at [facility] BASIC METABOLIC [id number] 06:17:00* Test Item Value Reference Range Interpretation Comments SODIUM (test code = NA) 143 mmol/L 136-145 N POTASSIUM (test code = K) 4.1 mmol/L 3.5-5.1 N CHLORIDE (test code = CL) 114.0 mmol/L 98-107 H CARBON DIOXIDE (test code = CO2) mmol/L 21-32 ANION GAP (test code = GAP) 10-20 GLUCOSE (test code = GLU) mg/dL 74-106 BLOOD UREA NITROGEN (test code = BUN) mg/dL 7-18 GLOMERULAR FILTRATION RATE (test code = GFR) mL/min >=60 CREATININE (test code = CREAT) mg/dL 0.55-1.02 BUN/CREATININE RATIO (test code = BUN/CREA) 10-20 CALCIUM (test code = CA) mg/dL 8.5-10.1 CBC W/O [id number] 06:13:00* Test Item Value Reference Range Interpretation Comments WHITE BLOOD CELL (test code = WBC) 6.2 K/mm3 4.5-12.5 N RED BLOOD CELL (test code = RBC) 4.00 mill/mm3 3.7-5.2 N HEMOGLOBIN (test code = HGB) 12.0 gram/dL 11.5-15.5 RESULT VERIFIED BY REPEAT ANALYSIS HEMATOCRIT (test code = HCT) 40.1 % 36.0-46.0 N MEAN CELL VOLUME (test code = MCV) 100.3 fL 80-98 H RESULT VERIFIED BY REPEAT ANALYSIS MEAN CELL HGB (test code = MCH) 30.0 picogram 27.0-33.0 N MEAN CELL HGB CONCETRATION (test code = MCHC) 29.9 gram/dL 33.0-36. 0 L RED CELL DISTRIBUTION WIDTH (test code = RDW) 18.0 % 11.6-16. 2 H PLATELET COUNT (test code = PLT) 86 K/mm3 150-450 L RESULT VERIFIED BY REPEAT ANALYSIS MEAN PLATELET VOLUME (test code = MPV) 10.9 fL 6.7-11.0 N [id number] 23:25:00* Test Item Value Reference Range Interpretation Comments GLUBED (test code = GLUBED) 91 mg/dL 74-106 N Performed by certified threader operator at [facility] [id number] 16:52:00 RUN DATE: 04/04/19 [facility] PAGE 1 RUN TIME: 2 Specimen Inqui ry RUN USER: INTERFACE PATIENT: OLEG STEINER ACCT #: [id number] LOC: [facility] U #: [id number] AGE/SX: 58/F ROOM: [facility] RE03/09/19[facility] DR: Precious Teague MD : 56 BED: A DIS: STATUS: ADM IN TLOC: SPEC #: [id number] RECD: 04/03/19 STATUS: SIVAN WASSERMAN #: [id number] [place]: 04/02/19- SUBM DR: Lanre Rucker MD ENTERED: 04/03/19 SP TYPE: STOMACH OTHR DR: Sarah Moreno MD, David MD Goldsmith, William W DO Gopalakrishnan,Sanjay Alfred MD, Nadeem MD Rasheed, Amir A MDORDERED: GROSS COPIES TO: Lanre Rucker MD [address] [place] [address] Sarah Moreno MD [address] [place], [place] [id number] Jose Angel Spain MD [address] [place] [address] [place] [address] [place] [address] Talisha Ahn [address] [place] [address] Sanjay Fox MD [address] [facility] [place] [address] [place] [address] [place] [id number] CONTINUED ON NEXT PAGE RUN D ATE: 04/04/19 [facility] GE 2 RUN TIME: 1652 Specimen Inquiry RUN USER: INTERFACE SPEC #: [id number] PATIENT: OLEG STEINER #[id number] (Continued) COPIES TO: (Continued) [place] [address] [address] PROCEDUR ES: GROSS (04/04/19-1337) TISSUES: GASTRIC ULCER - BX CLINICAL HISTORY COLLECTION DATE: 04/02/19 HEMATEMESIS, DARK STOOLS FINAL DI AGNOSIS Gastric pouch ulcer, biopsy: GASTRIC MUCOSA WITH MILD CHRONIC INFLAMMATION, FRAGMENTS OF ACUTELY INFLAMED GRANULATION TISSUE AND FIB RINOPURULENT EXUDATE COMPATIBLE WITH ULCERATION NEGATIVE FOR HEL ICOBACTER ORGANISMS NEGATIVE FOR INTESTINAL METAPLASIA NEGATIVE FO R MALIGNANCY RRB/darrick D [id number], [address] MACROSCOPIC T he specimen is received in formalin, labeled with the patient's name, identifi ed as "gastric pouch ulcer biopsy", and consists of multiple fragments of more biopsy tissue measuring 0.8 x 0.5 x 0.2 cm, entirely submitted in a single aurea sette for H E and giemsa stains. GROSS PERFORMED AT [facility] [address] [place] [address] [phone])[phone] MICROSCOPIC All of the stains, including any controls performed, stain appropriately. MICROSCOPIC PERFORMED AT [facility] PATH[facility]Y CONTINUED ON NEXT PAGE RUN DATE: 04/04/19 [place] PAGE 3 RUN TIME: 1652 Specimen Inquiry RUN USER: INTERFACE SPEC #: [id number] PATIENT: OLEG STEINER #[id number] (Continued)------ ------ MICROSCOPIC (Continued) [address] [facility] [place] [place] [address] [phone])[phone] PERFORMING SITE Diagnosis perform ed at: [facility] [place] [address] [facility] [place] [address] Signed SIGNATURE ON FILE Minh Matthews MD 04/04/19 1652 END OF REPORT [id number] 16:37:00* Test Item Value Reference Range Interpretation Comments GLUBED (test code = GLUBED) 85 mg/dL 74-106 N Performed by certified threader operator at [facility] BASIC METABOLIC [id number] 14:39:00* Test Item Value Reference Range Interpretation Comments SODIUM (test code = NA) 144 mmol/L 136-145 N POTASSIUM (test code = K) 3.9 mmol/L 3.5-5.1 N CHLORIDE (test code = CL) 113.0 mmol/L 98-107 H CARBON DIOXIDE (test code = CO2) 24.0 mmol/L 21-32 N ANION GAP (test code = GAP) 10.9 10-20 N GLUCOSE (test code = GLU) 95 mg/dL 74-106 N BLOOD UREA NITROGEN (test code = BUN) 12 mg/dL 7-18 N GLOMERULAR FILTRATION RATE (test code = GFR) > 60 mL/min >=60 Estimated GFR by using Modified MDRD formula.Chronic kidney disease is defined as either kidney damageor GFR <60 mL/min/1.73 m2 for >3 months. CREATININE (test code = CREAT) 0.30 mg/dL 0.55-1.02 L Note change in reference range due to change in reagent. BUN/CREATININE RATIO (test code = BUN/CREA) 40.0 10-20 H CALCIUM (test code = CA) 7.6 mg/dL 8.5-10.1 L [id number] 12:07:00* Test Item Value Reference Range Interpretation Comments GLUBED (test code = GLUBED) 93 mg/dL 74-106 N Performed by certified threader operator at [facility] [id number] 06:56:00* Test Item Value Reference Range Interpretation Comments GLUBED (test code = GLUBED) 89 mg/dL 74-106 N Performed by certified threader operator at [facility] PROCALCITONIN (PCT)2019-04-04 03:42:00* Test Item Value Reference Range Interpretation Comments PROCALCITONIN (PCT) (test code = PROCAL) 0.18 ng/ml Concentration Interpretation (ng/mL) <0.51 Sepsis [...] into account the patients history. B-TYPE NATRIURETIC [id number] 03:34:00* Test Item Value Reference Range Interpretation Comments B-TYPE NATRIURETIC PEPTIDE (test code = BNP) 197.04 pgram/mL 0-100 H BASIC METABOLIC [id number] 03:33:00* Test Item Value Reference Range Interpretation Comments SODIUM (test code = NA) 144 mmol/L 136-145 N POTASSIUM (test code = K) 3.4 mmol/L 3.5-5.1 L CHLORIDE (test code = CL) 113.0 mmol/L 98-107 H CARBON DIOXIDE (test code = CO2) 26.0 mmol/L 21-32 N ANION GAP (test code = GAP) 8.4 10-20 L GLUCOSE (test code = GLU) 91 mg/dL 74-106 N BLOOD UREA NITROGEN (test code = BUN) 12 mg/dL 7-18 N GLOMERULAR FILTRATION RATE (test code = GFR) > 60 mL/min >=60 Estimated GFR by using Modified MDRD formula.Chronic kidney disease is defined as either kidney damageor GFR <60 mL/min/1.73 m2 for >3 months. CREATININE (test code = CREAT) 0.20 mg/dL 0.55-1.02 L Note change in reference range due to change in reagent. BUN/CREATININE RATIO (test code = BUN/CREA) 60.0 10-20 H CALCIUM (test code = CA) 7.4 mg/dL 8.5-10.1 L [id number] 03:33:00* Test Item Value Reference Range Interpretation Comments MAGNESIUM (test code = MAG) 1.4 mg/dL 1.8-2.4 L CBC W/MANUAL [id number] 03:28:00* Test Item Value Reference Range Interpretation Comments WHITE BLOOD CELL (test code = WBC) 6.8 K/mm3 4.5-12.5 N RED BLOOD CELL (test code = RBC) 2.58 mill/mm3 3.7-5.2 L HEMOGLOBIN (test code = HGB) 7.6 gram/dL 11.5-15.5 L HEMATOCRIT (test code = HCT) 24.0 % 36.0-46.0 L MEAN CELL VOLUME (test code = MCV) 93.0 fL 80-98 N MEAN CELL HGB (test code = MCH) 29.5 picogram 27.0-33.0 N MEAN CELL HGB CONCETRATION (test code = MCHC) 31.7 gram/dL 33.0-36. 0 L RED CELL DISTRIBUTION WIDTH (test code = RDW) 18.7 % 11.6-16. 2 H RED CELL DISTRIBUTION WIDTH SD (test code = RDW-SD) 56.4 fL 37 .0-51.0 H PLATELET COUNT (test code = PLT) 174 K/mm3 150-450 N MEAN PLATELET VOLUME (test code = MPV) 11.0 fL 6.7-11.0 N IMMATURE GRANULOCYTE % (test code = IG%) 5.6 % 0.0-5.0 H "The appearance of immature granulocytes (myelocytes,pro-myelocytes, meta-myelocytes) in the peripheral blood ofnon- individuals can indicate a response toinfection, inflammation, or other stimulus to the bonemarrow" NUCLEATED RBC % (test code = NRBC%) 0.0 % 0-0 N NEUTROPHIL # (test code = NT#) 4.96 K/mm3 1.8-7.7 N IMMATURE GRANULOCYTE # (test code = IG#) 0.38 x10 3/uL 0-0.03 H LYMPHOCYTE # (test code = LY#) 0.53 K/mm3 1.0-5.0 L MONOCYTE # (test code = MO#) 0.88 K/mm3 0-0.8 H EOSINOPHIL # (test code = EO#) 0.03 K/mm3 0.0-0.5 N BASOPHIL # (test code = BA#) 0.01 K/mm3 0.0-0.2 N NUCLEATED RBC # (test code = NRBC#) 0.00 K/mm3 0.0-0.1 N MANUAL DIFF REQUIRED (test code = MDIFF) YES STAIN ACCEPTABILITY (test code = STN ACCEPTABLE) STAIN ACCEPTABLE TOTAL CELLS COUNTED (test code = TCC) 115 #CELLS SEGMENTED NEUTROPHILS (test code = SEG) 79.1 % 39-69 H BAND NEUTROPHIL (test code = BAND) 0 % 0-10 N LYMPHOCYTE (test code = LYMPH) 8.7 % 25-55 L REACTIVE LYMPH (test code = RELYMPH) 0 % MONOCYTE (test code = MON) 11.3 % 0-10 H EOSINOPHIL (test code = EOS) 0 % 0.0-5.0 N BASOPHIL (test code = BASO) 0 % 0-1.0 N METAMYELOCYTE (test code = META) 0 % 0-0 N MYELOCYTE (test code = MYELO) 0.9 % 0.0-0.0 H PROMYELOCYTE (test code = PROM) 0 % 0-0 N ANISOCYTOSIS (test code = ANISO) 1+ MACROCYTOSIS (test code = MACR) 1+ PLATELET ESTIMATE (test code = PLTEST) ADEQUATE PLATELET MORPHOLOGY (test code = PLTMORPH) NORMAL IMMATURE FORMS (test code = IMMAT) 0 % 0-0 N BASIC METABOLIC [id number] 03:19:00* Test Item Value Reference Range Interpretation Comments SODIUM (test code = NA) 144 mmol/L 136-145 N POTASSIUM (test code = K) 3.4 mmol/L 3.5-5.1 L CHLORIDE (test code = CL) 113.0 mmol/L 98-107 H CARBON DIOXIDE (test code = CO2) mmol/L 21-32 ANION GAP (test code = GAP) 10-20 GLUCOSE (test code = GLU) mg/dL 74-106 BLOOD UREA NITROGEN (test code = BUN) mg/dL 7-18 GLOMERULAR FILTRATION RATE (test code = GFR) mL/min >=60 CREATININE (test code = CREAT) mg/dL 0.55-1.02 BUN/CREATININE RATIO (test code = BUN/CREA) 10-20 CALCIUM (test code = CA) mg/dL 8.5-10.1 [id number] 03:19:00* Test Item Value Reference Range Interpretation Comments MAGNESIUM (test code = MAG) mg/dL 1.8-2.4 CBC W/MANUAL [id number] 03:15:00* Test Item Value Reference Range Interpretation Comments WHITE BLOOD CELL (test code = WBC) 6.8 K/mm3 4.5-12.5 N RED BLOOD CELL (test code = RBC) 2.58 mill/mm3 3.7-5.2 L HEMOGLOBIN (test code = HGB) 7.6 gram/dL 11.5-15.5 L HEMATOCRIT (test code = HCT) 24.0 % 36.0-46.0 L MEAN CELL VOLUME (test code = MCV) 93.0 fL 80-98 N MEAN CELL HGB (test code = MCH) 29.5 picogram 27.0-33.0 N MEAN CELL HGB CONCETRATION (test code = MCHC) 31.7 gram/dL 33.0-36. 0 L RED CELL DISTRIBUTION WIDTH (test code = RDW) 18.7 % 11.6-16. 2 H RED CELL DISTRIBUTION WIDTH SD (test code = RDW-SD) 56.4 fL 37 .0-51.0 H PLATELET COUNT (test code = PLT) 174 K/mm3 150-450 N MEAN PLATELET VOLUME (test code = MPV) 11.0 fL 6.7-11.0 N IMMATURE GRANULOCYTE % (test code = IG%) 5.6 % 0.0-5.0 H "The appearance of immature granulocytes (myelocytes,pro-myelocytes, meta-myelocytes) in the peripheral blood ofnon- individuals can indicate a response toinfection, inflammation, or other stimulus to the bonemarrow" NUCLEATED RBC % (test code = NRBC%) 0.0 % 0-0 N NEUTROPHIL # (test code = NT#) 4.96 K/mm3 1.8-7.7 N IMMATURE GRANULOCYTE # (test code = IG#) 0.38 x10 3/uL 0-0.03 H LYMPHOCYTE # (test code = LY#) 0.53 K/mm3 1.0-5.0 L MONOCYTE # (test code = MO#) 0.88 K/mm3 0-0.8 H EOSINOPHIL # (test code = EO#) 0.03 K/mm3 0.0-0.5 N BASOPHIL # (test code = BA#) 0.01 K/mm3 0.0-0.2 N NUCLEATED RBC # (test code = NRBC#) 0.00 K/mm3 0.0-0.1 N MANUAL DIFF REQUIRED (test code = MDIFF) YES STAIN ACCEPTABILITY (test code = STN ACCEPTABLE) TOTAL CELLS COUNTED (test code = TCC) #CELLS SEGMENTED NEUTROPHILS (test code = SEG) % 39-69 LYMPHOCYTE (test code = LYMPH) % 25-55 MONOCYTE (test code = MON) % 0-10 EOSINOPHIL (test code = EOS) % 0.0-5.0 CABOT RINGS (test code = CAB) MORPHOLOGY COMMENT (test code = MOC) PLATELET ESTIMATE (test code = PLTEST) PLATELET MORPHOLOGY (test code = PLTMORPH) CBC W/MANUAL [id number] 03:15:00* Test Item Value Reference Range Interpretation Comments WHITE BLOOD CELL (test code = WBC) 6.8 K/mm3 4.5-12.5 N RED BLOOD CELL (test code = RBC) 2.58 mill/mm3 3.7-5.2 L HEMOGLOBIN (test code = HGB) 7.6 gram/dL 11.5-15.5 L HEMATOCRIT (test code = HCT) 24.0 % 36.0-46.0 L MEAN CELL VOLUME (test code = MCV) 93.0 fL 80-98 N MEAN CELL HGB (test code = MCH) 29.5 picogram 27.0-33.0 N MEAN CELL HGB CONCETRATION (test code = MCHC) 31.7 gram/dL 33.0-36. 0 L RED CELL DISTRIBUTION WIDTH (test code = RDW) 18.7 % 11.6-16. 2 H RED CELL DISTRIBUTION WIDTH SD (test code = RDW-SD) 56.4 fL 37 .0-51.0 H PLATELET COUNT (test code = PLT) 174 K/mm3 150-450 N MEAN PLATELET VOLUME (test code = MPV) 11.0 fL 6.7-11.0 N IMMATURE GRANULOCYTE % (test code = IG%) 5.6 % 0.0-5.0 H "The appearance of immature granulocytes (myelocytes,pro-myelocytes, meta-myelocytes) in the peripheral blood ofnon- individuals can indicate a response toinfection, inflammation, or other stimulus to the bonemarrow" NUCLEATED RBC % (test code = NRBC%) 0.0 % 0-0 N NEUTROPHIL # (test code = NT#) 4.96 K/mm3 1.8-7.7 N IMMATURE GRANULOCYTE # (test code = IG#) 0.38 x10 3/uL 0-0.03 H LYMPHOCYTE # (test code = LY#) 0.53 K/mm3 1.0-5.0 L MONOCYTE # (test code = MO#) 0.88 K/mm3 0-0.8 H EOSINOPHIL # (test code = EO#) 0.03 K/mm3 0.0-0.5 N BASOPHIL # (test code = BA#) 0.01 K/mm3 0.0-0.2 N NUCLEATED RBC # (test code = NRBC#) 0.00 K/mm3 0.0-0.1 N MANUAL DIFF REQUIRED (test code = MDIFF) YES STAIN ACCEPTABILITY (test code = STN ACCEPTABLE) TOTAL CELLS COUNTED (test code = TCC) #CELLS SEGMENTED NEUTROPHILS (test code = SEG) % 39-69 LYMPHOCYTE (test code = LYMPH) % 25-55 MONOCYTE (test code = MON) % 0-10 EOSINOPHIL (test code = EOS) % 0.0-5.0 CABOT RINGS (test code = CAB) MORPHOLOGY COMMENT (test code = MOC) PLATELET ESTIMATE (test code = PLTEST) PLATELET MORPHOLOGY (test code = PLTMORPH) CBC W/MANUAL [id number] 03:15:00* Test Item Value Reference Range Interpretation Comments WHITE BLOOD CELL (test code = WBC) 6.8 K/mm3 4.5-12.5 N RED BLOOD CELL (test code = RBC) 2.58 mill/mm3 3.7-5.2 L HEMOGLOBIN (test code = HGB) 7.6 gram/dL 11.5-15.5 L HEMATOCRIT (test code = HCT) 24.0 % 36.0-46.0 L MEAN CELL VOLUME (test code = MCV) 93.0 fL 80-98 N MEAN CELL HGB (test code = MCH) 29.5 picogram 27.0-33.0 N MEAN CELL HGB CONCETRATION (test code = MCHC) 31.7 gram/dL 33.0-36. 0 L RED CELL DISTRIBUTION WIDTH (test code = RDW) 18.7 % 11.6-16. 2 H RED CELL DISTRIBUTION WIDTH SD (test code = RDW-SD) 56.4 fL 37 .0-51.0 H PLATELET COUNT (test code = PLT) 174 K/mm3 150-450 N MEAN PLATELET VOLUME (test code = MPV) 11.0 fL 6.7-11.0 N IMMATURE GRANULOCYTE % (test code = IG%) 5.6 % 0.0-5.0 H "The appearance of immature granulocytes (myelocytes,pro-myelocytes, meta-myelocytes) in the peripheral blood ofnon- individuals can indicate a response toinfection, inflammation, or other stimulus to the bonemarrow" NUCLEATED RBC % (test code = NRBC%) 0.0 % 0-0 N NEUTROPHIL # (test code = NT#) 4.96 K/mm3 1.8-7.7 N IMMATURE GRANULOCYTE # (test code = IG#) 0.38 x10 3/uL 0-0.03 H LYMPHOCYTE # (test code = LY#) 0.53 K/mm3 1.0-5.0 L MONOCYTE # (test code = MO#) 0.88 K/mm3 0-0.8 H EOSINOPHIL # (test code = EO#) 0.03 K/mm3 0.0-0.5 N BASOPHIL # (test code = BA#) 0.01 K/mm3 0.0-0.2 N NUCLEATED RBC # (test code = NRBC#) 0.00 K/mm3 0.0-0.1 N MANUAL DIFF REQUIRED (test code = MDIFF) YES STAIN ACCEPTABILITY (test code = STN ACCEPTABLE) TOTAL CELLS COUNTED (test code = TCC) #CELLS SEGMENTED NEUTROPHILS (test code = SEG) % 39-69 LYMPHOCYTE (test code = LYMPH) % 25-55 MONOCYTE (test code = MON) % 0-10 EOSINOPHIL (test code = EOS) % 0.0-5.0 MORPHOLOGY COMMENT (test code = MOC) PLATELET ESTIMATE (test code = PLTEST) PLATELET MORPHOLOGY (test code = PLTMORPH) CBC W/MANUAL [id number] 03:15:00* Test Item Value Reference Range Interpretation Comments WHITE BLOOD CELL (test code = WBC) 6.8 K/mm3 4.5-12.5 N RED BLOOD CELL (test code = RBC) 2.58 mill/mm3 3.7-5.2 L HEMOGLOBIN (test code = HGB) 7.6 gram/dL 11.5-15.5 L HEMATOCRIT (test code = HCT) 24.0 % 36.0-46.0 L MEAN CELL VOLUME (test code = MCV) 93.0 fL 80-98 N MEAN CELL HGB (test code = MCH) 29.5 picogram 27.0-33.0 N MEAN CELL HGB CONCETRATION (test code = MCHC) 31.7 gram/dL 33.0-36. 0 L RED CELL DISTRIBUTION WIDTH (test code = RDW) 18.7 % 11.6-16. 2 H RED CELL DISTRIBUTION WIDTH SD (test code = RDW-SD) 56.4 fL 37 .0-51.0 H PLATELET COUNT (test code = PLT) 174 K/mm3 150-450 N MEAN PLATELET VOLUME (test code = MPV) 11.0 fL 6.7-11.0 N IMMATURE GRANULOCYTE % (test code = IG%) 5.6 % 0.0-5.0 H "The appearance of immature granulocytes (myelocytes,pro-myelocytes, meta-myelocytes) in the peripheral blood ofnon- individuals can indicate a response toinfection, inflammation, or other stimulus to the bonemarrow" NUCLEATED RBC % (test code = NRBC%) 0.0 % 0-0 N NEUTROPHIL # (test code = NT#) 4.96 K/mm3 1.8-7.7 N IMMATURE GRANULOCYTE # (test code = IG#) 0.38 x10 3/uL 0-0.03 H LYMPHOCYTE # (test code = LY#) 0.53 K/mm3 1.0-5.0 L MONOCYTE # (test code = MO#) 0.88 K/mm3 0-0.8 H EOSINOPHIL # (test code = EO#) 0.03 K/mm3 0.0-0.5 N BASOPHIL # (test code = BA#) 0.01 K/mm3 0.0-0.2 N NUCLEATED RBC # (test code = NRBC#) 0.00 K/mm3 0.0-0.1 N MANUAL DIFF REQUIRED (test code = MDIFF) YES STAIN ACCEPTABILITY (test code = STN ACCEPTABLE) TOTAL CELLS COUNTED (test code = TCC) #CELLS SEGMENTED NEUTROPHILS (test code = SEG) % 39-69 LYMPHOCYTE (test code = LYMPH) % 25-55 MONOCYTE (test code = MON) % 0-10 MORPHOLOGY COMMENT (test code = MOC) PLATELET ESTIMATE (test code = PLTEST) PLATELET MORPHOLOGY (test code = PLTMORPH) CBC W/MANUAL [id number] 03:15:00* Test Item Value Reference Range Interpretation Comments WHITE BLOOD CELL (test code = WBC) 6.8 K/mm3 4.5-12.5 N RED BLOOD CELL (test code = RBC) 2.58 mill/mm3 3.7-5.2 L HEMOGLOBIN (test code = HGB) 7.6 gram/dL 11.5-15.5 L HEMATOCRIT (test code = HCT) 24.0 % 36.0-46.0 L MEAN CELL VOLUME (test code = MCV) 93.0 fL 80-98 N MEAN CELL HGB (test code = MCH) 29.5 picogram 27.0-33.0 N MEAN CELL HGB CONCETRATION (test code = MCHC) 31.7 gram/dL 33.0-36. 0 L RED CELL DISTRIBUTION WIDTH (test code = RDW) 18.7 % 11.6-16. 2 H RED CELL DISTRIBUTION WIDTH SD (test code = RDW-SD) 56.4 fL 37 .0-51.0 H PLATELET COUNT (test code = PLT) 174 K/mm3 150-450 N MEAN PLATELET VOLUME (test code = MPV) 11.0 fL 6.7-11.0 N IMMATURE GRANULOCYTE % (test code = IG%) 5.6 % 0.0-5.0 H "The appearance of immature granulocytes (myelocytes,pro-myelocytes, meta-myelocytes) in the peripheral blood ofnon- individuals can indicate a response toinfection, inflammation, or other stimulus to the bonemarrow" NUCLEATED RBC % (test code = NRBC%) 0.0 % 0-0 N NEUTROPHIL # (test code = NT#) 4.96 K/mm3 1.8-7.7 N IMMATURE GRANULOCYTE # (test code = IG#) 0.38 x10 3/uL 0-0.03 H LYMPHOCYTE # (test code = LY#) 0.53 K/mm3 1.0-5.0 L MONOCYTE # (test code = MO#) 0.88 K/mm3 0-0.8 H EOSINOPHIL # (test code = EO#) 0.03 K/mm3 0.0-0.5 N BASOPHIL # (test code = BA#) 0.01 K/mm3 0.0-0.2 N NUCLEATED RBC # (test code = NRBC#) 0.00 K/mm3 0.0-0.1 N MANUAL DIFF REQUIRED (test code = MDIFF) YES STAIN ACCEPTABILITY (test code = STN ACCEPTABLE) TOTAL CELLS COUNTED (test code = TCC) #CELLS SEGMENTED NEUTROPHILS (test code = SEG) % 39-69 LYMPHOCYTE (test code = LYMPH) % 25-55 MONOCYTE (test code = MON) % 0-10 EOSINOPHIL (test code = EOS) % 0.0-5.0 CABOT RINGS (test code = CAB) MORPHOLOGY COMMENT (test code = MOC) PLATELET ESTIMATE (test code = PLTEST) PLATELET MORPHOLOGY (test code = PLTMORPH) [id number] 21:50:00* Test Item Value Reference Range Interpretation Comments GLUBED (test code = GLUBED) 84 mg/dL 74-106 N Performed by certified threader operator at [facility] [id number] 17:08:00* Test Item Value Reference Range Interpretation Comments GLUBED (test code = GLUBED) 105 mg/dL 74-106 N Performed by certified threader operator at [facility] BASIC METABOLIC [id number] 14:00:00* Test Item Value Reference Range Interpretation Comments SODIUM (test code = NA) 140 mmol/L 136-145 N POTASSIUM (test code = K) 3.9 mmol/L 3.5-5.1 N CHLORIDE (test code = CL) 112.0 mmol/L 98-107 H CARBON DIOXIDE (test code = CO2) 22.0 mmol/L 21-32 N ANION GAP (test code = GAP) 9.9 10-20 L GLUCOSE (test code = GLU) 93 mg/dL 74-106 N BLOOD UREA NITROGEN (test code = BUN) 15 mg/dL 7-18 N GLOMERULAR FILTRATION RATE (test code = GFR) > 60 mL/min >=60 Estimated GFR by using Modified MDRD formula.Chronic kidney disease is defined as either kidney damageor GFR <60 mL/min/1.73 m2 for >3 months. CREATININE (test code = CREAT) 0.20 mg/dL 0.55-1.02 L Note change in reference range due to change in reagent. BUN/CREATININE RATIO (test code = BUN/CREA) 75.0 10-20 H CALCIUM (test code = CA) 7.7 mg/dL 8.5-10.1 L [id number] 14:00:00* Test Item Value Reference Range Interpretation Comments MAGNESIUM (test code = MAG) 1.7 mg/dL 1.8-2.4 L BASIC METABOLIC [id number] 13:54:00* Test Item Value Reference Range Interpretation Comments SODIUM (test code = NA) 140 mmol/L 136-145 N POTASSIUM (test code = K) 3.9 mmol/L 3.5-5.1 N CHLORIDE (test code = CL) 112.0 mmol/L 98-107 H CARBON DIOXIDE (test code = CO2) mmol/L 21-32 ANION GAP (test code = GAP) 10-20 GLUCOSE (test code = GLU) mg/dL 74-106 BLOOD UREA NITROGEN (test code = BUN) mg/dL 7-18 GLOMERULAR FILTRATION RATE (test code = GFR) mL/min >=60 CREATININE (test code = CREAT) mg/dL 0.55-1.02 BUN/CREATININE RATIO (test code = BUN/CREA) 10-20 CALCIUM (test code = CA) mg/dL 8.5-10.1 [id number] 13:54:00* Test Item Value Reference Range Interpretation Comments MAGNESIUM (test code = MAG) mg/dL 1.8-2.4 CBC W/AUTO [id number] 12:50:00* Test Item Value Reference Range Interpretation Comments WHITE BLOOD CELL (test code = WBC) 8.9 K/mm3 4.5-12.5 N RED BLOOD CELL (test code = RBC) 2.92 mill/mm3 3.7-5.2 L HEMOGLOBIN (test code = HGB) 8.6 gram/dL 11.5-15.5 L HEMATOCRIT (test code = HCT) 27.0 % 36.0-46.0 L MEAN CELL VOLUME (test code = MCV) 92.5 fL 80-98 N MEAN CELL HGB (test code = MCH) 29.5 picogram 27.0-33.0 N MEAN CELL HGB CONCETRATION (test code = MCHC) 31.9 gram/dL 33.0-36. 0 L RED CELL DISTRIBUTION WIDTH (test code = RDW) 18.9 % 11.6-16. 2 H RED CELL DISTRIBUTION WIDTH SD (test code = RDW-SD) 57.5 fL 37 .0-51.0 H PLATELET COUNT (test code = PLT) 165 K/mm3 150-450 N MEAN PLATELET VOLUME (test code = MPV) 11.5 fL 6.7-11.0 H NEUTROPHIL % (test code = NT%) 78.1 % 39.0-69.0 H IMMATURE GRANULOCYTE % (test code = IG%) 4.6 % 0.0-5.0 N LYMPHOCYTE % (test code = LY%) 7.7 % 25.0-55.0 L MONOCYTE % (test code = MO%) 9.1 % 0.0-10.0 N EOSINOPHIL % (test code = EO%) 0.2 % 0.0-5.0 N BASOPHIL % (test code = BA%) 0.3 % 0.0-1.0 N NUCLEATED RBC % (test code = NRBC%) 0.3 % 0-0 H NEUTROPHIL # (test code = NT#) 6.93 K/mm3 1.8-7.7 N IMMATURE GRANULOCYTE # (test code = IG#) 0.41 x10 3/uL 0-0.03 H LYMPHOCYTE # (test code = LY#) 0.68 K/mm3 1.0-5.0 L MONOCYTE # (test code = MO#) 0.81 K/mm3 0-0.8 H EOSINOPHIL # (test code = EO#) 0.02 K/mm3 0.0-0.5 N BASOPHIL # (test code = BA#) 0.03 K/mm3 0.0-0.2 N NUCLEATED RBC # (test code = NRBC#) 0.03 K/mm3 0.0-0.1 N MANUAL DIFF REQUIRED (test code = MDIFF) NO [id number] 12:24:00* Test Item Value Reference Range Interpretation Comments GLUBED (test code = GLUBED) 103 mg/dL 74-106 N Performed by certified threader operator at [facility] [id number] 07:27:00* Test Item Value Reference Range Interpretation Comments CREATININE (test code = CREAT) 0.30 mg/dL 0.55-1.02 L Note change in reference range due to change in reagent. [id number] 05:58:00* Test Item Value Reference Range Interpretation Comments GLUBED (test code = GLUBED) 92 mg/dL 74-106 N Performed by certified threader operator at [facility] [id number] 20:48:00* Test Item Value Reference Range Interpretation Comments GLUBED (test code = GLUBED) 63 mg/dL 74-106 L Performed by certified threader operator at [facility] PROTHROMBIN [id number] 18:37:00* Test Item Value Reference Range Interpretation Comments PROTHROMBIN TIME PATIENT (test code = PTP) 12.7 seconds 9.0-14.0 N INTERNATIONAL NORMAL RATIO (test code = INR) 1.1 0.8-1.2 N The therapeutic range for oral anticoagulant therapy [...] valves (2.5-3.5) STILL RECIEVING BLOOD V.LAB.1 04/02/19 164002 1019IS PATIENT ON ANTICOAG ULANTS? YLIST ANTICOAGULANTS [id number] 18:12:00* Test Item Value Reference Range Interpretation Comments FIBRINOGEN (test code = FIB) 305 mg/dL 200-400 N STILL RECIEVING BLOOD BRUNILDA ACHARYA V.LAB.1 [id number] HCT 2019-04-02 18:11:00* Test Item Value Reference Range Interpretation Comments HEMOGLOBIN (test code = HGB) 8.3 gram/dL 11.5-15.5 L HEMATOCRIT (test code = HCT) 25.3 % 36.0-46.0 L [id number] 16:55:00* Test Item Value Reference Range Interpretation Comments GLUBED (test code = GLUBED) 61 mg/dL 74-106 L Performed by certified threader operator at [facility] CBC W/MANUAL [id number] 13:47:00* Test Item Value Reference Range Interpretation Comments WHITE BLOOD CELL (test code = WBC) 8.4 K/mm3 4.5-12.5 N RED BLOOD CELL (test code = RBC) 2.57 mill/mm3 3.7-5.2 L HEMOGLOBIN (test code = HGB) 7.6 gram/dL 11.5-15.5 L RESULT VERIFIED BY REPEAT ANALYSIS HEMATOCRIT (test code = HCT) 23.6 % 36.0-46.0 L MEAN CELL VOLUME (test code = MCV) 91.8 fL 80-98 N MEAN CELL HGB (test code = MCH) 29.6 picogram 27.0-33.0 N MEAN CELL HGB CONCETRATION (test code = MCHC) 32.2 gram/dL 33.0-36. 0 L RED CELL DISTRIBUTION WIDTH (test code = RDW) 17.8 % 11.6-16. 2 H RED CELL DISTRIBUTION WIDTH SD (test code = RDW-SD) 54.0 fL 37 .0-51.0 H PLATELET COUNT (test code = PLT) 142 K/mm3 150-450 L MEAN PLATELET VOLUME (test code = MPV) 11.9 fL 6.7-11.0 H IMMATURE GRANULOCYTE % (test code = IG%) 8.5 % 0.0-5.0 H "The appearance of immature granulocytes (myelocytes,pro-myelocytes, meta-myelocytes) in the peripheral blood ofnon- individuals can indicate a response toinfection, inflammation, or other stimulus to the bonemarrow" NUCLEATED RBC % (test code = NRBC%) 0.2 % 0-0 H NEUTROPHIL # (test code = NT#) 5.47 K/mm3 1.8-7.7 N IMMATURE GRANULOCYTE # (test code = IG#) 0.71 x10 3/uL 0-0.03 H LYMPHOCYTE # (test code = LY#) 0.90 K/mm3 1.0-5.0 L MONOCYTE # (test code = MO#) 1.26 K/mm3 0-0.8 H EOSINOPHIL # (test code = EO#) 0.02 K/mm3 0.0-0.5 N BASOPHIL # (test code = BA#) 0.02 K/mm3 0.0-0.2 N NUCLEATED RBC # (test code = NRBC#) 0.02 K/mm3 0.0-0.1 N MANUAL DIFF REQUIRED (test code = MDIFF) YES STAIN ACCEPTABILITY (test code = STN ACCEPTABLE) STAIN ACCEPTABLE TOTAL CELLS COUNTED (test code = TCC) 114 #CELLS SEGMENTED NEUTROPHILS (test code = SEG) 79.8 % 39-69 H BAND NEUTROPHIL (test code = BAND) 1.8 % 0-10 N LYMPHOCYTE (test code = LYMPH) 3.5 % 25-55 L REACTIVE LYMPH (test code = RELYMPH) 0 % MONOCYTE (test code = MON) 9.7 % 0-10 N EOSINOPHIL (test code = EOS) 0 % 0.0-5.0 N BASOPHIL (test code = BASO) 0 % 0-1.0 N METAMYELOCYTE (test code = META) 2.6 % 0-0 H MYELOCYTE (test code = MYELO) 2.6 % 0.0-0.0 H PROMYELOCYTE (test code = PROM) 0 % 0-0 N POLYCHROMASIA (test code = POLC) 1+ HYPOCHROMIA (test code = HYPO) 1+ POIKILOCYTOSIS (test code = POIK) 1+ ANISOCYTOSIS (test code = ANISO) 1+ PLATELET ESTIMATE (test code = PLTEST) SLIGHTLY DECREASED PLATELET MORPHOLOGY (test code = PLTMORPH) NORMAL IMMATURE FORMS (test code = IMMAT) 0 % 0-0 N WAS RECEIVING BLOOD. BRUNILDA XIE ([id number] 12:18:00* Test Item Value Reference Range Interpretation Comments GLUBED (test code = GLUBED) 79 mg/dL 74-106 N Performed by certified threader operator at [facility] CBC W/MANUAL [id number] 09:13:00* Test Item Value Reference Range Interpretation Comments WHITE BLOOD CELL (test code = WBC) 8.4 K/mm3 4.5-12.5 N RED BLOOD CELL (test code = RBC) 2.57 mill/mm3 3.7-5.2 L HEMOGLOBIN (test code = HGB) 7.6 gram/dL 11.5-15.5 L RESULT VERIFIED BY REPEAT ANALYSIS HEMATOCRIT (test code = HCT) 23.6 % 36.0-46.0 L MEAN CELL VOLUME (test code = MCV) 91.8 fL 80-98 N MEAN CELL HGB (test code = MCH) 29.6 picogram 27.0-33.0 N MEAN CELL HGB CONCETRATION (test code = MCHC) 32.2 gram/dL 33.0-36. 0 L RED CELL DISTRIBUTION WIDTH (test code = RDW) 17.8 % 11.6-16. 2 H RED CELL DISTRIBUTION WIDTH SD (test code = RDW-SD) 54.0 fL 37 .0-51.0 H PLATELET COUNT (test code = PLT) 142 K/mm3 150-450 L MEAN PLATELET VOLUME (test code = MPV) 11.9 fL 6.7-11.0 H IMMATURE GRANULOCYTE % (test code = IG%) 8.5 % 0.0-5.0 H "The appearance of immature granulocytes (myelocytes,pro-myelocytes, meta-myelocytes) in the peripheral blood ofnon- individuals can indicate a response toinfection, inflammation, or other stimulus to the bonemarrow" NUCLEATED RBC % (test code = NRBC%) 0.2 % 0-0 H NEUTROPHIL # (test code = NT#) 5.47 K/mm3 1.8-7.7 N IMMATURE GRANULOCYTE # (test code = IG#) 0.71 x10 3/uL 0-0.03 H LYMPHOCYTE # (test code = LY#) 0.90 K/mm3 1.0-5.0 L MONOCYTE # (test code = MO#) 1.26 K/mm3 0-0.8 H EOSINOPHIL # (test code = EO#) 0.02 K/mm3 0.0-0.5 N BASOPHIL # (test code = BA#) 0.02 K/mm3 0.0-0.2 N NUCLEATED RBC # (test code = NRBC#) 0.02 K/mm3 0.0-0.1 N MANUAL DIFF REQUIRED (test code = MDIFF) YES STAIN ACCEPTABILITY (test code = STN ACCEPTABLE) TOTAL CELLS COUNTED (test code = TCC) #CELLS SEGMENTED NEUTROPHILS (test code = SEG) % 39-69 LYMPHOCYTE (test code = LYMPH) % 25-55 MONOCYTE (test code = MON) % 0-10 EOSINOPHIL (test code = EOS) % 0.0-5.0 CABOT RINGS (test code = CAB) MORPHOLOGY COMMENT (test code = MOC) PLATELET ESTIMATE (test code = PLTEST) PLATELET MORPHOLOGY (test code = PLTMORPH) WAS RECEIVING BLOOD. BRUNILDA XIE ([id number])CBC W/MANUAL [id number] 09:13:00* Test Item Value Reference Range Interpretation Comments WHITE BLOOD CELL (test code = WBC) 8.4 K/mm3 4.5-12.5 N RED BLOOD CELL (test code = RBC) 2.57 mill/mm3 3.7-5.2 L HEMOGLOBIN (test code = HGB) 7.6 gram/dL 11.5-15.5 L RESULT VERIFIED BY REPEAT ANALYSIS HEMATOCRIT (test code = HCT) 23.6 % 36.0-46.0 L MEAN CELL VOLUME (test code = MCV) 91.8 fL 80-98 N MEAN CELL HGB (test code = MCH) 29.6 picogram 27.0-33.0 N MEAN CELL HGB CONCETRATION (test code = MCHC) 32.2 gram/dL 33.0-36. 0 L RED CELL DISTRIBUTION WIDTH (test code = RDW) 17.8 % 11.6-16. 2 H RED CELL DISTRIBUTION WIDTH SD (test code = RDW-SD) 54.0 fL 37 .0-51.0 H PLATELET COUNT (test code = PLT) 142 K/mm3 150-450 L MEAN PLATELET VOLUME (test code = MPV) 11.9 fL 6.7-11.0 H IMMATURE GRANULOCYTE % (test code = IG%) 8.5 % 0.0-5.0 H "The appearance of immature granulocytes (myelocytes,pro-myelocytes, meta-myelocytes) in the peripheral blood ofnon- individuals can indicate a response toinfection, inflammation, or other stimulus to the bonemarrow" NUCLEATED RBC % (test code = NRBC%) 0.2 % 0-0 H NEUTROPHIL # (test code = NT#) 5.47 K/mm3 1.8-7.7 N IMMATURE GRANULOCYTE # (test code = IG#) 0.71 x10 3/uL 0-0.03 H LYMPHOCYTE # (test code = LY#) 0.90 K/mm3 1.0-5.0 L MONOCYTE # (test code = MO#) 1.26 K/mm3 0-0.8 H EOSINOPHIL # (test code = EO#) 0.02 K/mm3 0.0-0.5 N BASOPHIL # (test code = BA#) 0.02 K/mm3 0.0-0.2 N NUCLEATED RBC # (test code = NRBC#) 0.02 K/mm3 0.0-0.1 N MANUAL DIFF REQUIRED (test code = MDIFF) YES STAIN ACCEPTABILITY (test code = STN ACCEPTABLE) TOTAL CELLS COUNTED (test code = TCC) #CELLS SEGMENTED NEUTROPHILS (test code = SEG) % 39-69 LYMPHOCYTE (test code = LYMPH) % 25-55 MONOCYTE (test code = MON) % 0-10 EOSINOPHIL (test code = EOS) % 0.0-5.0 CABOT RINGS (test code = CAB) MORPHOLOGY COMMENT (test code = MOC) PLATELET ESTIMATE (test code = PLTEST) PLATELET MORPHOLOGY (test code = PLTMORPH) WAS RECEIVING BLOOD. BRUNILDA XIE ([id number])CBC W/MANUAL [id number] 09:13:00* Test Item Value Reference Range Interpretation Comments WHITE BLOOD CELL (test code = WBC) 8.4 K/mm3 4.5-12.5 N RED BLOOD CELL (test code = RBC) 2.57 mill/mm3 3.7-5.2 L HEMOGLOBIN (test code = HGB) 7.6 gram/dL 11.5-15.5 L RESULT VERIFIED BY REPEAT ANALYSIS HEMATOCRIT (test code = HCT) 23.6 % 36.0-46.0 L MEAN CELL VOLUME (test code = MCV) 91.8 fL 80-98 N MEAN CELL HGB (test code = MCH) 29.6 picogram 27.0-33.0 N MEAN CELL HGB CONCETRATION (test code = MCHC) 32.2 gram/dL 33.0-36. 0 L RED CELL DISTRIBUTION WIDTH (test code = RDW) 17.8 % 11.6-16. 2 H RED CELL DISTRIBUTION WIDTH SD (test code = RDW-SD) 54.0 fL 37 .0-51.0 H PLATELET COUNT (test code = PLT) 142 K/mm3 150-450 L MEAN PLATELET VOLUME (test code = MPV) 11.9 fL 6.7-11.0 H IMMATURE GRANULOCYTE % (test code = IG%) 8.5 % 0.0-5.0 H "The appearance of immature granulocytes (myelocytes,pro-myelocytes, meta-myelocytes) in the peripheral blood ofnon- individuals can indicate a response toinfection, inflammation, or other stimulus to the bonemarrow" NUCLEATED RBC % (test code = NRBC%) 0.2 % 0-0 H NEUTROPHIL # (test code = NT#) 5.47 K/mm3 1.8-7.7 N IMMATURE GRANULOCYTE # (test code = IG#) 0.71 x10 3/uL 0-0.03 H LYMPHOCYTE # (test code = LY#) 0.90 K/mm3 1.0-5.0 L MONOCYTE # (test code = MO#) 1.26 K/mm3 0-0.8 H EOSINOPHIL # (test code = EO#) 0.02 K/mm3 0.0-0.5 N BASOPHIL # (test code = BA#) 0.02 K/mm3 0.0-0.2 N NUCLEATED RBC # (test code = NRBC#) 0.02 K/mm3 0.0-0.1 N MANUAL DIFF REQUIRED (test code = MDIFF) YES STAIN ACCEPTABILITY (test code = STN ACCEPTABLE) TOTAL CELLS COUNTED (test code = TCC) #CELLS SEGMENTED NEUTROPHILS (test code = SEG) % 39-69 LYMPHOCYTE (test code = LYMPH) % 25-55 MONOCYTE (test code = MON) % 0-10 EOSINOPHIL (test code = EOS) % 0.0-5.0 MORPHOLOGY COMMENT (test code = MOC) PLATELET ESTIMATE (test code = PLTEST) PLATELET MORPHOLOGY (test code = PLTMORPH) WAS RECEIVING BLOOD. BRUNILDA XIE ([id number])CBC W/MANUAL [id number] 09:13:00* Test Item Value Reference Range Interpretation Comments WHITE BLOOD CELL (test code = WBC) 8.4 K/mm3 4.5-12.5 N RED BLOOD CELL (test code = RBC) 2.57 mill/mm3 3.7-5.2 L HEMOGLOBIN (test code = HGB) 7.6 gram/dL 11.5-15.5 L RESULT VERIFIED BY REPEAT ANALYSIS HEMATOCRIT (test code = HCT) 23.6 % 36.0-46.0 L MEAN CELL VOLUME (test code = MCV) 91.8 fL 80-98 N MEAN CELL HGB (test code = MCH) 29.6 picogram 27.0-33.0 N MEAN CELL HGB CONCETRATION (test code = MCHC) 32.2 gram/dL 33.0-36. 0 L RED CELL DISTRIBUTION WIDTH (test code = RDW) 17.8 % 11.6-16. 2 H RED CELL DISTRIBUTION WIDTH SD (test code = RDW-SD) 54.0 fL 37 .0-51.0 H PLATELET COUNT (test code = PLT) 142 K/mm3 150-450 L MEAN PLATELET VOLUME (test code = MPV) 11.9 fL 6.7-11.0 H IMMATURE GRANULOCYTE % (test code = IG%) 8.5 % 0.0-5.0 H "The appearance of immature granulocytes (myelocytes,pro-myelocytes, meta-myelocytes) in the peripheral blood ofnon- individuals can indicate a response toinfection, inflammation, or other stimulus to the bonemarrow" NUCLEATED RBC % (test code = NRBC%) 0.2 % 0-0 H NEUTROPHIL # (test code = NT#) 5.47 K/mm3 1.8-7.7 N IMMATURE GRANULOCYTE # (test code = IG#) 0.71 x10 3/uL 0-0.03 H LYMPHOCYTE # (test code = LY#) 0.90 K/mm3 1.0-5.0 L MONOCYTE # (test code = MO#) 1.26 K/mm3 0-0.8 H EOSINOPHIL # (test code = EO#) 0.02 K/mm3 0.0-0.5 N BASOPHIL # (test code = BA#) 0.02 K/mm3 0.0-0.2 N NUCLEATED RBC # (test code = NRBC#) 0.02 K/mm3 0.0-0.1 N MANUAL DIFF REQUIRED (test code = MDIFF) YES STAIN ACCEPTABILITY (test code = STN ACCEPTABLE) TOTAL CELLS COUNTED (test code = TCC) #CELLS SEGMENTED NEUTROPHILS (test code = SEG) % 39-69 LYMPHOCYTE (test code = LYMPH) % 25-55 MONOCYTE (test code = MON) % 0-10 MORPHOLOGY COMMENT (test code = MOC) PLATELET ESTIMATE (test code = PLTEST) PLATELET MORPHOLOGY (test code = PLTMORPH) WAS RECEIVING BLOOD. BRUNILDA XIE ([id number])CBC W/MANUAL [id number] 09:13:00* Test Item Value Reference Range Interpretation Comments WHITE BLOOD CELL (test code = WBC) 8.4 K/mm3 4.5-12.5 N RED BLOOD CELL (test code = RBC) 2.57 mill/mm3 3.7-5.2 L HEMOGLOBIN (test code = HGB) 7.6 gram/dL 11.5-15.5 L RESULT VERIFIED BY REPEAT ANALYSIS HEMATOCRIT (test code = HCT) 23.6 % 36.0-46.0 L MEAN CELL VOLUME (test code = MCV) 91.8 fL 80-98 N MEAN CELL HGB (test code = MCH) 29.6 picogram 27.0-33.0 N MEAN CELL HGB CONCETRATION (test code = MCHC) 32.2 gram/dL 33.0-36. 0 L RED CELL DISTRIBUTION WIDTH (test code = RDW) 17.8 % 11.6-16. 2 H RED CELL DISTRIBUTION WIDTH SD (test code = RDW-SD) 54.0 fL 37 .0-51.0 H PLATELET COUNT (test code = PLT) 142 K/mm3 150-450 L MEAN PLATELET VOLUME (test code = MPV) 11.9 fL 6.7-11.0 H IMMATURE GRANULOCYTE % (test code = IG%) 8.5 % 0.0-5.0 H "The appearance of immature granulocytes (myelocytes,pro-myelocytes, meta-myelocytes) in the peripheral blood ofnon- individuals can indicate a response toinfection, inflammation, or other stimulus to the bonemarrow" NUCLEATED RBC % (test code = NRBC%) 0.2 % 0-0 H NEUTROPHIL # (test code = NT#) 5.47 K/mm3 1.8-7.7 N IMMATURE GRANULOCYTE # (test code = IG#) 0.71 x10 3/uL 0-0.03 H LYMPHOCYTE # (test code = LY#) 0.90 K/mm3 1.0-5.0 L MONOCYTE # (test code = MO#) 1.26 K/mm3 0-0.8 H EOSINOPHIL # (test code = EO#) 0.02 K/mm3 0.0-0.5 N BASOPHIL # (test code = BA#) 0.02 K/mm3 0.0-0.2 N NUCLEATED RBC # (test code = NRBC#) 0.02 K/mm3 0.0-0.1 N MANUAL DIFF REQUIRED (test code = MDIFF) YES STAIN ACCEPTABILITY (test code = STN ACCEPTABLE) TOTAL CELLS COUNTED (test code = TCC) #CELLS SEGMENTED NEUTROPHILS (test code = SEG) % 39-69 LYMPHOCYTE (test code = LYMPH) % 25-55 MONOCYTE (test code = MON) % 0-10 EOSINOPHIL (test code = EOS) % 0.0-5.0 CABOT RINGS (test code = CAB) MORPHOLOGY COMMENT (test code = MOC) PLATELET ESTIMATE (test code = PLTEST) PLATELET MORPHOLOGY (test code = PLTMORPH) WAS RECEIVING BLOOD. BRUNILDA XIE ([id number] 06:04:00* Test Item Value Reference Range Interpretation Comments GLUBED (test code = GLUBED) 94 mg/dL 74-106 N Performed by certified threader operator at [facility] HGB [id number] 23:04:00* Test Item Value Reference Range Interpretation Comments HEMOGLOBIN (test code = HGB) 5.6 gram/dL 11.5-15.5 L HEMATOCRIT (test code = HCT) 18.1 % 36.0-46.0 LL Results called to [id number] by V.LAB.JP1 04/01/19 2304Critical results verified and read back by Nurse? Y [id number] 20:49:00* Test Item Value Reference Range Interpretation Comments GLUBED (test code = GLUBED) 108 mg/dL 74-106 H Performed by certified threader operator at [facility] [id number] 17:52:00* Test Item Value Reference Range Interpretation Comments GLUBED (test code = GLUBED) 88 mg/dL 74-106 N Performed by certified threader operator at [facility] [id number] 12:48:00* Test Item Value Reference Range Interpretation Comments GLUBED (test code = GLUBED) 78 mg/dL 74-106 N Performed by certified threader operator at [facility] [id number] 08:07:00* Test Item Value Reference Range Interpretation Comments GLUBED (test code = GLUBED) 64 mg/dL 74-106 L [facility] [id number] 08:07:00* Test Item Value Reference Range Interpretation Comments GLUBED (test code = GLUBED) 58 mg/dL 74-106 L [facility] [id number] 08:06:00* Test Item Value Reference Range Interpretation Comments GLUBED (test code = GLUBED) 116 mg/dL 74-106 H Performed by certified threader operator at [facility] [id number] 08:06:00* Test Item Value Reference Range Interpretation Comments GLUBED (test code = GLUBED) 86 mg/dL 74-106 N Performed by certified threader operator at [facility] [id number] 08:06:00* Test Item Value Reference Range Interpretation Comments GLUBED (test code = GLUBED) 73 mg/dL 74-106 L Performed by certified threader operator at [facility] [id number] 08:06:00* Test Item Value Reference Range Interpretation Comments GLUBED (test code = GLUBED) 77 mg/dL 74-106 N Performed by certified threader operator at [facility] [id number] 08:05:00* Test Item Value Reference Range Interpretation Comments GLUBED (test code = GLUBED) 87 mg/dL 74-106 N Performed by certified threader operator at [facility] [id number] 08:05:00* Test Item Value Reference Range Interpretation Comments GLUBED (test code = GLUBED) 76 mg/dL 74-106 N Performed by certified threader operator at [facility] [id number] 08:05:00* Test Item Value Reference Range Interpretation Comments GLUBED (test code = GLUBED) 79 mg/dL 74-106 N Performed by certified threader operator at [facility] [id number] 08:05:00* Test Item Value Reference Range Interpretation Comments GLUBED (test code = GLUBED) 79 mg/dL 74-106 N Performed by certified threader operator at [facility] [id number] 08:05:00* Test Item Value Reference Range Interpretation Comments GLUBED (test code = GLUBED) 91 mg/dL 74-106 N Performed by certified threader operator at [facility] [id number] 08:05:00* Test Item Value Reference Range Interpretation Comments GLUBED (test code = GLUBED) 88 mg/dL 74-106 N Performed by certified threader operator at [facility] [id number] 08:04:00* Test Item Value Reference Range Interpretation Comments GLUBED (test code = GLUBED) 111 mg/dL 74-106 H Performed by certified threader operator at [facility] [id number] 08:04:00* Test Item Value Reference Range Interpretation Comments GLUBED (test code = GLUBED) 86 mg/dL 74-106 N Performed by certified threader operator at [facility] [id number] 08:04:00* Test Item Value Reference Range Interpretation Comments GLUBED (test code = GLUBED) 95 mg/dL 74-106 N Performed by certified threader operator at [facility] [id number] 08:04:00* Test Item Value Reference Range Interpretation Comments GLUBED (test code = GLUBED) 85 mg/dL 74-106 N Performed by certified threader operator at [facility] [id number] 06:30:00* Test Item Value Reference Range Interpretation Comments GLUBED (test code = GLUBED) 75 mg/dL 74-106 N Performed by certified threader operator at [facility] [id number] 21:55:00* Test Item Value Reference Range Interpretation Comments GLUBED (test code = GLUBED) 87 mg/dL 74-106 N Performed by certified threader operator at [facility] [id number] 16:59:00* Test Item Value Reference Range Interpretation Comments GLUBED (test code = GLUBED) 91 mg/dL 74-106 N Performed by certified threader operator at [facility] CBC W/MANUAL [id number] 12:55:00* Test Item Value Reference Range Interpretation Comments WHITE BLOOD CELL (test code = WBC) 6.7 K/mm3 4.5-12.5 N RED BLOOD CELL (test code = RBC) 2.86 mill/mm3 3.7-5.2 L HEMOGLOBIN (test code = HGB) 8.7 gram/dL 11.5-15.5 L HEMATOCRIT (test code = HCT) 27.6 % 36.0-46.0 L MEAN CELL VOLUME (test code = MCV) 96.5 fL 80-98 N MEAN CELL HGB (test code = MCH) 30.4 picogram 27.0-33.0 N MEAN CELL HGB CONCETRATION (test code = MCHC) 31.5 gram/dL 33.0-36. 0 L RED CELL DISTRIBUTION WIDTH (test code = RDW) 16.4 % 11.6-16. 2 H RED CELL DISTRIBUTION WIDTH SD (test code = RDW-SD) 58.0 fL 37 .0-51.0 H PLATELET COUNT (test code = PLT) 142 K/mm3 150-450 L MEAN PLATELET VOLUME (test code = MPV) 11.9 fL 6.7-11.0 H IMMATURE GRANULOCYTE % (test code = IG%) 9.4 % 0.0-5.0 H "The appearance of immature granulocytes (myelocytes,pro-myelocytes, meta-myelocytes) in the peripheral blood ofnon- individuals can indicate a response toinfection, inflammation, or other stimulus to the bonemarrow" NUCLEATED RBC % (test code = NRBC%) 0.0 % 0-0 N NEUTROPHIL # (test code = NT#) 4.13 K/mm3 1.8-7.7 N IMMATURE GRANULOCYTE # (test code = IG#) 0.63 x10 3/uL 0-0.03 H LYMPHOCYTE # (test code = LY#) 0.75 K/mm3 1.0-5.0 L MONOCYTE # (test code = MO#) 1.12 K/mm3 0-0.8 H EOSINOPHIL # (test code = EO#) 0.03 K/mm3 0.0-0.5 N BASOPHIL # (test code = BA#) 0.04 K/mm3 0.0-0.2 N NUCLEATED RBC # (test code = NRBC#) 0.00 K/mm3 0.0-0.1 N MANUAL DIFF REQUIRED (test code = MDIFF) YES STAIN ACCEPTABILITY (test code = STN ACCEPTABLE) STAIN ACCEPTABLE TOTAL CELLS COUNTED (test code = TCC) 100 #CELLS SEGMENTED NEUTROPHILS (test code = SEG) 74 % 39-69 H LYMPHOCYTE (test code = LYMPH) 8 % 25-55 L MONOCYTE (test code = MON) 16 % 0-10 H EOSINOPHIL (test code = EOS) 2 % 0.0-5.0 N HYPOCHROMIA (test code = HYPO) 1+ ANISOCYTOSIS (test code = ANISO) 1+ PLATELET ESTIMATE (test code = PLTEST) ADEQUATE PLATELET MORPHOLOGY (test code = PLTMORPH) SIZE VARIABLE [id number] 12:18:00* Test Item Value Reference Range Interpretation Comments GLUBED (test code = GLUBED) 84 mg/dL 74-106 N Performed by certified threader operator at [facility] [id number] 09:57:00* Test Item Value Reference Range Interpretation Comments GLUBED (test code = GLUBED) 95 mg/dL 74-106 N Performed by certified threader operator at [facility] CBC W/MANUAL [id number] 08:38:00* Test Item Value Reference Range Interpretation Comments WHITE BLOOD CELL (test code = WBC) 6.7 K/mm3 4.5-12.5 N RED BLOOD CELL (test code = RBC) 2.86 mill/mm3 3.7-5.2 L HEMOGLOBIN (test code = HGB) 8.7 gram/dL 11.5-15.5 L HEMATOCRIT (test code = HCT) 27.6 % 36.0-46.0 L MEAN CELL VOLUME (test code = MCV) 96.5 fL 80-98 N MEAN CELL HGB (test code = MCH) 30.4 picogram 27.0-33.0 N MEAN CELL HGB CONCETRATION (test code = MCHC) 31.5 gram/dL 33.0-36. 0 L RED CELL DISTRIBUTION WIDTH (test code = RDW) 16.4 % 11.6-16. 2 H RED CELL DISTRIBUTION WIDTH SD (test code = RDW-SD) 58.0 fL 37 .0-51.0 H PLATELET COUNT (test code = PLT) 142 K/mm3 150-450 L MEAN PLATELET VOLUME (test code = MPV) 11.9 fL 6.7-11.0 H IMMATURE GRANULOCYTE % (test code = IG%) 9.4 % 0.0-5.0 H "The appearance of immature granulocytes (myelocytes,pro-myelocytes, meta-myelocytes) in the peripheral blood ofnon- individuals can indicate a response toinfection, inflammation, or other stimulus to the bonemarrow" NUCLEATED RBC % (test code = NRBC%) 0.0 % 0-0 N NEUTROPHIL # (test code = NT#) 4.13 K/mm3 1.8-7.7 N IMMATURE GRANULOCYTE # (test code = IG#) 0.63 x10 3/uL 0-0.03 H LYMPHOCYTE # (test code = LY#) 0.75 K/mm3 1.0-5.0 L MONOCYTE # (test code = MO#) 1.12 K/mm3 0-0.8 H EOSINOPHIL # (test code = EO#) 0.03 K/mm3 0.0-0.5 N BASOPHIL # (test code = BA#) 0.04 K/mm3 0.0-0.2 N NUCLEATED RBC # (test code = NRBC#) 0.00 K/mm3 0.0-0.1 N MANUAL DIFF REQUIRED (test code = MDIFF) YES STAIN ACCEPTABILITY (test code = STN ACCEPTABLE) TOTAL CELLS COUNTED (test code = TCC) #CELLS SEGMENTED NEUTROPHILS (test code = SEG) % 39-69 LYMPHOCYTE (test code = LYMPH) % 25-55 MONOCYTE (test code = MON) % 0-10 EOSINOPHIL (test code = EOS) % 0.0-5.0 CAB[place] RINGS (test code = CAB) MORPHOLOGY COMMENT (test code = MOC) PLATELET ESTIMATE (test code = PLTEST) PLATELET MORPHOLOGY (test code = PLTMORPH) CBC W/MANUAL [id number] 08:38:00* Test Item Value Reference Range Interpretation Comments WHITE BLOOD CELL (test code = WBC) 6.7 K/mm3 4.5-12.5 N RED BLOOD CELL (test code = RBC) 2.86 mill/mm3 3.7-5.2 L HEMOGLOBIN (test code = HGB) 8.7 gram/dL 11.5-15.5 L HEMATOCRIT (test code = HCT) 27.6 % 36.0-46.0 L MEAN CELL VOLUME (test code = MCV) 96.5 fL 80-98 N MEAN CELL HGB (test code = MCH) 30.4 picogram 27.0-33.0 N MEAN CELL HGB CONCETRATION (test code = MCHC) 31.5 gram/dL 33.0-36. 0 L RED CELL DISTRIBUTION WIDTH (test code = RDW) 16.4 % 11.6-16. 2 H RED CELL DISTRIBUTION WIDTH SD (test code = RDW-SD) 58.0 fL 37 .0-51.0 H PLATELET COUNT (test code = PLT) 142 K/mm3 150-450 L MEAN PLATELET VOLUME (test code = MPV) 11.9 fL 6.7-11.0 H IMMATURE GRANULOCYTE % (test code = IG%) 9.4 % 0.0-5.0 H "The appearance of immature granulocytes (myelocytes,pro-myelocytes, meta-myelocytes) in the peripheral blood ofnon- individuals can indicate a response toinfection, inflammation, or other stimulus to the bonemarrow" NUCLEATED RBC % (test code = NRBC%) 0.0 % 0-0 N NEUTROPHIL # (test code = NT#) 4.13 K/mm3 1.8-7.7 N IMMATURE GRANULOCYTE # (test code = IG#) 0.63 x10 3/uL 0-0.03 H LYMPHOCYTE # (test code = LY#) 0.75 K/mm3 1.0-5.0 L MONOCYTE # (test code = MO#) 1.12 K/mm3 0-0.8 H EOSINOPHIL # (test code = EO#) 0.03 K/mm3 0.0-0.5 N BASOPHIL # (test code = BA#) 0.04 K/mm3 0.0-0.2 N NUCLEATED RBC # (test code = NRBC#) 0.00 K/mm3 0.0-0.1 N MANUAL DIFF REQUIRED (test code = MDIFF) YES STAIN ACCEPTABILITY (test code = STN ACCEPTABLE) TOTAL CELLS COUNTED (test code = TCC) #CELLS SEGMENTED NEUTROPHILS (test code = SEG) % 39-69 LYMPHOCYTE (test code = LYMPH) % 25-55 MONOCYTE (test code = MON) % 0-10 EOSINOPHIL (test code = EOS) % 0.0-5.0 CAB[place] RINGS (test code = CAB) MORPHOLOGY COMMENT (test code = MOC) PLATELET ESTIMATE (test code = PLTEST) PLATELET MORPHOLOGY (test code = PLTMORPH) CBC W/MANUAL [id number] 08:38:00* Test Item Value Reference Range Interpretation Comments WHITE BLOOD CELL (test code = WBC) 6.7 K/mm3 4.5-12.5 N RED BLOOD CELL (test code = RBC) 2.86 mill/mm3 3.7-5.2 L HEMOGLOBIN (test code = HGB) 8.7 gram/dL 11.5-15.5 L HEMATOCRIT (test code = HCT) 27.6 % 36.0-46.0 L MEAN CELL VOLUME (test code = MCV) 96.5 fL 80-98 N MEAN CELL HGB (test code = MCH) 30.4 picogram 27.0-33.0 N MEAN CELL HGB CONCETRATION (test code = MCHC) 31.5 gram/dL 33.0-36. 0 L RED CELL DISTRIBUTION WIDTH (test code = RDW) 16.4 % 11.6-16. 2 H RED CELL DISTRIBUTION WIDTH SD (test code = RDW-SD) 58.0 fL 37 .0-51.0 H PLATELET COUNT (test code = PLT) 142 K/mm3 150-450 L MEAN PLATELET VOLUME (test code = MPV) 11.9 fL 6.7-11.0 H IMMATURE GRANULOCYTE % (test code = IG%) 9.4 % 0.0-5.0 H "The appearance of immature granulocytes (myelocytes,pro-myelocytes, meta-myelocytes) in the peripheral blood ofnon- individuals can indicate a response toinfection, inflammation, or other stimulus to the bonemarrow" NUCLEATED RBC % (test code = NRBC%) 0.0 % 0-0 N NEUTROPHIL # (test code = NT#) 4.13 K/mm3 1.8-7.7 N IMMATURE GRANULOCYTE # (test code = IG#) 0.63 x10 3/uL 0-0.03 H LYMPHOCYTE # (test code = LY#) 0.75 K/mm3 1.0-5.0 L MONOCYTE # (test code = MO#) 1.12 K/mm3 0-0.8 H EOSINOPHIL # (test code = EO#) 0.03 K/mm3 0.0-0.5 N BASOPHIL # (test code = BA#) 0.04 K/mm3 0.0-0.2 N NUCLEATED RBC # (test code = NRBC#) 0.00 K/mm3 0.0-0.1 N MANUAL DIFF REQUIRED (test code = MDIFF) YES STAIN ACCEPTABILITY (test code = STN ACCEPTABLE) TOTAL CELLS COUNTED (test code = TCC) #CELLS SEGMENTED NEUTROPHILS (test code = SEG) % 39-69 LYMPHOCYTE (test code = LYMPH) % 25-55 MONOCYTE (test code = MON) % 0-10 EOSINOPHIL (test code = EOS) % 0.0-5.0 MORPHOLOGY COMMENT (test code = MOC) PLATELET ESTIMATE (test code = PLTEST) PLATELET MORPHOLOGY (test code = PLTMORPH) CBC W/MANUAL [id number] 08:38:00* Test Item Value Reference Range Interpretation Comments WHITE BLOOD CELL (test code = WBC) 6.7 K/mm3 4.5-12.5 N RED BLOOD CELL (test code = RBC) 2.86 mill/mm3 3.7-5.2 L HEMOGLOBIN (test code = HGB) 8.7 gram/dL 11.5-15.5 L HEMATOCRIT (test code = HCT) 27.6 % 36.0-46.0 L MEAN CELL VOLUME (test code = MCV) 96.5 fL 80-98 N MEAN CELL HGB (test code = MCH) 30.4 picogram 27.0-33.0 N MEAN CELL HGB CONCETRATION (test code = MCHC) 31.5 gram/dL 33.0-36. 0 L RED CELL DISTRIBUTION WIDTH (test code = RDW) 16.4 % 11.6-16. 2 H RED CELL DISTRIBUTION WIDTH SD (test code = RDW-SD) 58.0 fL 37 .0-51.0 H PLATELET COUNT (test code = PLT) 142 K/mm3 150-450 L MEAN PLATELET VOLUME (test code = MPV) 11.9 fL 6.7-11.0 H IMMATURE GRANULOCYTE % (test code = IG%) 9.4 % 0.0-5.0 H "The appearance of immature granulocytes (myelocytes,pro-myelocytes, meta-myelocytes) in the peripheral blood ofnon- individuals can indicate a response toinfection, inflammation, or other stimulus to the bonemarrow" NUCLEATED RBC % (test code = NRBC%) 0.0 % 0-0 N NEUTROPHIL # (test code = NT#) 4.13 K/mm3 1.8-7.7 N IMMATURE GRANULOCYTE # (test code = IG#) 0.63 x10 3/uL 0-0.03 H LYMPHOCYTE # (test code = LY#) 0.75 K/mm3 1.0-5.0 L MONOCYTE # (test code = MO#) 1.12 K/mm3 0-0.8 H EOSINOPHIL # (test code = EO#) 0.03 K/mm3 0.0-0.5 N BASOPHIL # (test code = BA#) 0.04 K/mm3 0.0-0.2 N NUCLEATED RBC # (test code = NRBC#) 0.00 K/mm3 0.0-0.1 N MANUAL DIFF REQUIRED (test code = MDIFF) YES STAIN ACCEPTABILITY (test code = STN ACCEPTABLE) TOTAL CELLS COUNTED (test code = TCC) #CELLS SEGMENTED NEUTROPHILS (test code = SEG) % 39-69 LYMPHOCYTE (test code = LYMPH) % 25-55 MONOCYTE (test code = MON) % 0-10 MORPHOLOGY COMMENT (test code = MOC) PLATELET ESTIMATE (test code = PLTEST) PLATELET MORPHOLOGY (test code = PLTMORPH) CBC W/MANUAL [id number] 08:38:00* Test Item Value Reference Range Interpretation Comments WHITE BLOOD CELL (test code = WBC) 6.7 K/mm3 4.5-12.5 N RED BLOOD CELL (test code = RBC) 2.86 mill/mm3 3.7-5.2 L HEMOGLOBIN (test code = HGB) 8.7 gram/dL 11.5-15.5 L HEMATOCRIT (test code = HCT) 27.6 % 36.0-46.0 L MEAN CELL VOLUME (test code = MCV) 96.5 fL 80-98 N MEAN CELL HGB (test code = MCH) 30.4 picogram 27.0-33.0 N MEAN CELL HGB CONCETRATION (test code = MCHC) 31.5 gram/dL 33.0-36. 0 L RED CELL DISTRIBUTION WIDTH (test code = RDW) 16.4 % 11.6-16. 2 H RED CELL DISTRIBUTION WIDTH SD (test code = RDW-SD) 58.0 fL 37 .0-51.0 H PLATELET COUNT (test code = PLT) 142 K/mm3 150-450 L MEAN PLATELET VOLUME (test code = MPV) 11.9 fL 6.7-11.0 H IMMATURE GRANULOCYTE % (test code = IG%) 9.4 % 0.0-5.0 H "The appearance of immature granulocytes (myelocytes,pro-myelocytes, meta-myelocytes) in the peripheral blood ofnon- individuals can indicate a response toinfection, inflammation, or other stimulus to the bonemarrow" NUCLEATED RBC % (test code = NRBC%) 0.0 % 0-0 N NEUTROPHIL # (test code = NT#) 4.13 K/mm3 1.8-7.7 N IMMATURE GRANULOCYTE # (test code = IG#) 0.63 x10 3/uL 0-0.03 H LYMPHOCYTE # (test code = LY#) 0.75 K/mm3 1.0-5.0 L MONOCYTE # (test code = MO#) 1.12 K/mm3 0-0.8 H EOSINOPHIL # (test code = EO#) 0.03 K/mm3 0.0-0.5 N BASOPHIL # (test code = BA#) 0.04 K/mm3 0.0-0.2 N NUCLEATED RBC # (test code = NRBC#) 0.00 K/mm3 0.0-0.1 N MANUAL DIFF REQUIRED (test code = MDIFF) YES STAIN ACCEPTABILITY (test code = STN ACCEPTABLE) TOTAL CELLS COUNTED (test code = TCC) #CELLS SEGMENTED NEUTROPHILS (test code = SEG) % 39-69 LYMPHOCYTE (test code = LYMPH) % 25-55 MONOCYTE (test code = MON) % 0-10 EOSINOPHIL (test code = EOS) % 0.0-5.0 CABOT RINGS (test code = CAB) MORPHOLOGY COMMENT (test code = MOC) PLATELET ESTIMATE (test code = PLTEST) PLATELET MORPHOLOGY (test code = PLTMORPH) [id number] 06:15:00* Test Item Value Reference Range Interpretation Comments GLUBED (test code = GLUBED) 78 mg/dL 74-106 N Performed by certified threader operator at [facility] [id number] 21:02:00* Test Item Value Reference Range Interpretation Comments GLUBED (test code = GLUBED) 91 mg/dL 74-106 N Performed by certified threader operator at [facility] BASIC METABOLIC [id number] 12:27:00* Test Item Value Reference Range Interpretation Comments SODIUM (test code = NA) 137 mmol/L 136-145 N POTASSIUM (test code = K) 3.9 mmol/L 3.5-5.1 N CHLORIDE (test code = CL) 106.0 mmol/L 98-107 N CARBON DIOXIDE (test code = CO2) 26.0 mmol/L 21-32 N ANION GAP (test code = GAP) 8.9 10-20 L GLUCOSE (test code = GLU) 96 mg/dL 74-106 N BLOOD UREA NITROGEN (test code = BUN) 14 mg/dL 7-18 N GLOMERULAR FILTRATION RATE (test code = GFR) > 60 mL/min >=60 Estimated GFR by using Modified MDRD formula.Chronic kidney disease is defined as either kidney damageor GFR <60 mL/min/1.73 m2 for >3 months. CREATININE (test code = CREAT) 0.20 mg/dL 0.55-1.02 L Note change in reference range due to change in reagent. BUN/CREATININE RATIO (test code = BUN/CREA) 70.0 10-20 H CALCIUM (test code = CA) 8.1 mg/dL 8.5-10.1 L [id number] 12:27:00* Test Item Value Reference Range Interpretation Comments MAGNESIUM (test code = MAG) 1.6 mg/dL 1.8-2.4 L BASIC METABOLIC [id number] 12:22:00* Test Item Value Reference Range Interpretation Comments SODIUM (test code = NA) 137 mmol/L 136-145 N POTASSIUM (test code = K) 3.9 mmol/L 3.5-5.1 N CHLORIDE (test code = CL) 106.0 mmol/L 98-107 N CARBON DIOXIDE (test code = CO2) mmol/L 21-32 ANION GAP (test code = GAP) 10-20 GLUCOSE (test code = GLU) mg/dL 74-106 BLOOD UREA NITROGEN (test code = BUN) mg/dL 7-18 GLOMERULAR FILTRATION RATE (test code = GFR) mL/min >=60 CREATININE (test code = CREAT) mg/dL 0.55-1.02 BUN/CREATININE RATIO (test code = BUN/CREA) 10-20 CALCIUM (test code = CA) mg/dL 8.5-10.1 [id number] 12:22:00* Test Item Value Reference Range Interpretation Comments MAGNESIUM (test code = MAG) mg/dL 1.8-2.4 [id number] 06:31:00* Test Item Value Reference Range Interpretation Comments GLUBED (test code = GLUBED) 100 mg/dL 74-106 N Performed by certified threader operator at [facility] [id number] 22:06:00* Test Item Value Reference Range Interpretation Comments GLUBED (test code = GLUBED) 106 mg/dL 74-106 N Performed by certified threader operator at [facility] [id number] 15:48:00* Test Item Value Reference Range Interpretation Comments GLUBED (test code = GLUBED) 101 mg/dL 74-106 N Performed by certified threader operator at [facility] [id number] 11:17:00* Test Item Value Reference Range Interpretation Comments GLUBED (test code = GLUBED) 97 mg/dL 74-106 N Performed by certified threader operator at [facility] CBC W/MANUAL [id number] 07:30:00* Test Item Value Reference Range Interpretation Comments WHITE BLOOD CELL (test code = WBC) 8.1 K/mm3 4.5-12.5 N RED BLOOD CELL (test code = RBC) 3.23 mill/mm3 3.7-5.2 L HEMOGLOBIN (test code = HGB) 9.6 gram/dL 11.5-15.5 L HEMATOCRIT (test code = HCT) 29.3 % 36.0-46.0 L MEAN CELL VOLUME (test code = MCV) 90.7 fL 80-98 N MEAN CELL HGB (test code = MCH) 29.7 picogram 27.0-33.0 N MEAN CELL HGB CONCETRATION (test code = MCHC) 32.8 gram/dL 33.0-36. 0 L RED CELL DISTRIBUTION WIDTH (test code = RDW) 16.1 % 11.6-16. 2 N RED CELL DISTRIBUTION WIDTH SD (test code = RDW-SD) 53.1 fL 37 .0-51.0 H PLATELET COUNT (test code = PLT) 97 K/mm3 150-450 L MEAN PLATELET VOLUME (test code = MPV) 12.4 fL 6.7-11.0 H IMMATURE GRANULOCYTE % (test code = IG%) 1.0 % 0.0-5.0 N NUCLEATED RBC % (test code = NRBC%) 0.0 % 0-0 N NEUTROPHIL # (test code = NT#) 6.57 K/mm3 1.8-7.7 N IMMATURE GRANULOCYTE # (test code = IG#) 0.08 x10 3/uL 0-0.03 H LYMPHOCYTE # (test code = LY#) 0.70 K/mm3 1.0-5.0 L MONOCYTE # (test code = MO#) 0.75 K/mm3 0-0.8 N EOSINOPHIL # (test code = EO#) 0.01 K/mm3 0.0-0.5 N BASOPHIL # (test code = BA#) 0.01 K/mm3 0.0-0.2 N NUCLEATED RBC # (test code = NRBC#) 0.00 K/mm3 0.0-0.1 N MANUAL DIFF REQUIRED (test code = MDIFF) YES STAIN ACCEPTABILITY (test code = STN ACCEPTABLE) STAIN ACCEPTABLE TOTAL CELLS COUNTED (test code = TCC) 113 #CELLS SEGMENTED NEUTROPHILS (test code = SEG) 87.6 % 39-69 H BAND NEUTROPHIL (test code = BAND) 0 % 0-10 N LYMPHOCYTE (test code = LYMPH) 6.2 % 25-55 L REACTIVE LYMPH (test code = RELYMPH) 0 % MONOCYTE (test code = MON) 2.6 % 0-10 N EOSINOPHIL (test code = EOS) 0 % 0.0-5.0 N BASOPHIL (test code = BASO) 0 % 0-1.0 N METAMYELOCYTE (test code = META) 0 % 0-0 N MYELOCYTE (test code = MYELO) 0 % 0.0-0.0 N PROMYELOCYTE (test code = PROM) 0.9 % 0-0 H ANISOCYTOSIS (test code = ANISO) 1+ MACROCYTOSIS (test code = MACR) 1+ PLATELET ESTIMATE (test code = PLTEST) DECREASED PLATELET MORPHOLOGY (test code = PLTMORPH) SIZE VARIABLE IMMATURE FORMS (test code = IMMAT) 2.7 % 0-0 H CBC W/MANUAL [id number] 06:26:00* Test Item Value Reference Range Interpretation Comments WHITE BLOOD CELL (test code = WBC) 8.1 K/mm3 4.5-12.5 N RED BLOOD CELL (test code = RBC) 3.23 mill/mm3 3.7-5.2 L HEMOGLOBIN (test code = HGB) 9.6 gram/dL 11.5-15.5 L HEMATOCRIT (test code = HCT) 29.3 % 36.0-46.0 L MEAN CELL VOLUME (test code = MCV) 90.7 fL 80-98 N MEAN CELL HGB (test code = MCH) 29.7 picogram 27.0-33.0 N MEAN CELL HGB CONCETRATION (test code = MCHC) 32.8 gram/dL 33.0-36. 0 L RED CELL DISTRIBUTION WIDTH (test code = RDW) 16.1 % 11.6-16. 2 N RED CELL DISTRIBUTION WIDTH SD (test code = RDW-SD) 53.1 fL 37 .0-51.0 H PLATELET COUNT (test code = PLT) 97 K/mm3 150-450 L MEAN PLATELET VOLUME (test code = MPV) 12.4 fL 6.7-11.0 H IMMATURE GRANULOCYTE % (test code = IG%) 1.0 % 0.0-5.0 N NUCLEATED RBC % (test code = NRBC%) 0.0 % 0-0 N NEUTROPHIL # (test code = NT#) 6.57 K/mm3 1.8-7.7 N IMMATURE GRANULOCYTE # (test code = IG#) 0.08 x10 3/uL 0-0.03 H LYMPHOCYTE # (test code = LY#) 0.70 K/mm3 1.0-5.0 L MONOCYTE # (test code = MO#) 0.75 K/mm3 0-0.8 N EOSINOPHIL # (test code = EO#) 0.01 K/mm3 0.0-0.5 N BASOPHIL # (test code = BA#) 0.01 K/mm3 0.0-0.2 N NUCLEATED RBC # (test code = NRBC#) 0.00 K/mm3 0.0-0.1 N MANUAL DIFF REQUIRED (test code = MDIFF) YES STAIN ACCEPTABILITY (test code = STN ACCEPTABLE) TOTAL CELLS COUNTED (test code = TCC) #CELLS SEGMENTED NEUTROPHILS (test code = SEG) % 39-69 LYMPHOCYTE (test code = LYMPH) % 25-55 MONOCYTE (test code = MON) % 0-10 EOSINOPHIL (test code = EOS) % 0.0-5.0 CABOT RINGS (test code = CAB) MORPHOLOGY COMMENT (test code = MOC) PLATELET ESTIMATE (test code = PLTEST) PLATELET MORPHOLOGY (test code = PLTMORPH) CBC W/MANUAL [id number] 06:26:00* Test Item Value Reference Range Interpretation Comments WHITE BLOOD CELL (test code = WBC) 8.1 K/mm3 4.5-12.5 N RED BLOOD CELL (test code = RBC) 3.23 mill/mm3 3.7-5.2 L HEMOGLOBIN (test code = HGB) 9.6 gram/dL 11.5-15.5 L HEMATOCRIT (test code = HCT) 29.3 % 36.0-46.0 L MEAN CELL VOLUME (test code = MCV) 90.7 fL 80-98 N MEAN CELL HGB (test code = MCH) 29.7 picogram 27.0-33.0 N MEAN CELL HGB CONCETRATION (test code = MCHC) 32.8 gram/dL 33.0-36. 0 L RED CELL DISTRIBUTION WIDTH (test code = RDW) 16.1 % 11.6-16. 2 N RED CELL DISTRIBUTION WIDTH SD (test code = RDW-SD) 53.1 fL 37 .0-51.0 H PLATELET COUNT (test code = PLT) 97 K/mm3 150-450 L MEAN PLATELET VOLUME (test code = MPV) 12.4 fL 6.7-11.0 H IMMATURE GRANULOCYTE % (test code = IG%) 1.0 % 0.0-5.0 N NUCLEATED RBC % (test code = NRBC%) 0.0 % 0-0 N NEUTROPHIL # (test code = NT#) 6.57 K/mm3 1.8-7.7 N IMMATURE GRANULOCYTE # (test code = IG#) 0.08 x10 3/uL 0-0.03 H LYMPHOCYTE # (test code = LY#) 0.70 K/mm3 1.0-5.0 L MONOCYTE # (test code = MO#) 0.75 K/mm3 0-0.8 N EOSINOPHIL # (test code = EO#) 0.01 K/mm3 0.0-0.5 N BASOPHIL # (test code = BA#) 0.01 K/mm3 0.0-0.2 N NUCLEATED RBC # (test code = NRBC#) 0.00 K/mm3 0.0-0.1 N MANUAL DIFF REQUIRED (test code = MDIFF) YES STAIN ACCEPTABILITY (test code = STN ACCEPTABLE) TOTAL CELLS COUNTED (test code = TCC) #CELLS SEGMENTED NEUTROPHILS (test code = SEG) % 39-69 LYMPHOCYTE (test code = LYMPH) % 25-55 MONOCYTE (test code = MON) % 0-10 EOSINOPHIL (test code = EOS) % 0.0-5.0 MORPHOLOGY COMMENT (test code = MOC) PLATELET ESTIMATE (test code = PLTEST) PLATELET MORPHOLOGY (test code = PLTMORPH) CBC W/MANUAL [id number] 06:26:00* Test Item Value Reference Range Interpretation Comments WHITE BLOOD CELL (test code = WBC) 8.1 K/mm3 4.5-12.5 N RED BLOOD CELL (test code = RBC) 3.23 mill/mm3 3.7-5.2 L HEMOGLOBIN (test code = HGB) 9.6 gram/dL 11.5-15.5 L HEMATOCRIT (test code = HCT) 29.3 % 36.0-46.0 L MEAN CELL VOLUME (test code = MCV) 90.7 fL 80-98 N MEAN CELL HGB (test code = MCH) 29.7 picogram 27.0-33.0 N MEAN CELL HGB CONCETRATION (test code = MCHC) 32.8 gram/dL 33.0-36. 0 L RED CELL DISTRIBUTION WIDTH (test code = RDW) 16.1 % 11.6-16. 2 N RED CELL DISTRIBUTION WIDTH SD (test code = RDW-SD) 53.1 fL 37 .0-51.0 H PLATELET COUNT (test code = PLT) 97 K/mm3 150-450 L MEAN PLATELET VOLUME (test code = MPV) 12.4 fL 6.7-11.0 H IMMATURE GRANULOCYTE % (test code = IG%) 1.0 % 0.0-5.0 N NUCLEATED RBC % (test code = NRBC%) 0.0 % 0-0 N NEUTROPHIL # (test code = NT#) 6.57 K/mm3 1.8-7.7 N IMMATURE GRANULOCYTE # (test code = IG#) 0.08 x10 3/uL 0-0.03 H LYMPHOCYTE # (test code = LY#) 0.70 K/mm3 1.0-5.0 L MONOCYTE # (test code = MO#) 0.75 K/mm3 0-0.8 N EOSINOPHIL # (test code = EO#) 0.01 K/mm3 0.0-0.5 N BASOPHIL # (test code = BA#) 0.01 K/mm3 0.0-0.2 N NUCLEATED RBC # (test code = NRBC#) 0.00 K/mm3 0.0-0.1 N MANUAL DIFF REQUIRED (test code = MDIFF) YES STAIN ACCEPTABILITY (test code = STN ACCEPTABLE) TOTAL CELLS COUNTED (test code = TCC) #CELLS SEGMENTED NEUTROPHILS (test code = SEG) % 39-69 LYMPHOCYTE (test code = LYMPH) % 25-55 MONOCYTE (test code = MON) % 0-10 MORPHOLOGY COMMENT (test code = MOC) PLATELET ESTIMATE (test code = PLTEST) PLATELET MORPHOLOGY (test code = PLTMORPH) CBC W/MANUAL [id number] 06:25:00* Test Item Value Reference Range Interpretation Comments WHITE BLOOD CELL (test code = WBC) 8.1 K/mm3 4.5-12.5 N RED BLOOD CELL (test code = RBC) 3.23 mill/mm3 3.7-5.2 L HEMOGLOBIN (test code = HGB) 9.6 gram/dL 11.5-15.5 L HEMATOCRIT (test code = HCT) 29.3 % 36.0-46.0 L MEAN CELL VOLUME (test code = MCV) 90.7 fL 80-98 N MEAN CELL HGB (test code = MCH) 29.7 picogram 27.0-33.0 N MEAN CELL HGB CONCETRATION (test code = MCHC) 32.8 gram/dL 33.0-36. 0 L RED CELL DISTRIBUTION WIDTH (test code = RDW) 16.1 % 11.6-16. 2 N RED CELL DISTRIBUTION WIDTH SD (test code = RDW-SD) 53.1 fL 37 .0-51.0 H PLATELET COUNT (test code = PLT) 97 K/mm3 150-450 L MEAN PLATELET VOLUME (test code = MPV) 12.4 fL 6.7-11.0 H IMMATURE GRANULOCYTE % (test code = IG%) 1.0 % 0.0-5.0 N NUCLEATED RBC % (test code = NRBC%) 0.0 % 0-0 N NEUTROPHIL # (test code = NT#) 6.57 K/mm3 1.8-7.7 N IMMATURE GRANULOCYTE # (test code = IG#) 0.08 x10 3/uL 0-0.03 H LYMPHOCYTE # (test code = LY#) 0.70 K/mm3 1.0-5.0 L MONOCYTE # (test code = MO#) 0.75 K/mm3 0-0.8 N EOSINOPHIL # (test code = EO#) 0.01 K/mm3 0.0-0.5 N BASOPHIL # (test code = BA#) 0.01 K/mm3 0.0-0.2 N NUCLEATED RBC # (test code = NRBC#) 0.00 K/mm3 0.0-0.1 N MANUAL DIFF REQUIRED (test code = MDIFF) YES STAIN ACCEPTABILITY (test code = STN ACCEPTABLE) TOTAL CELLS COUNTED (test code = TCC) #CELLS SEGMENTED NEUTROPHILS (test code = SEG) % 39-69 LYMPHOCYTE (test code = LYMPH) % 25-55 MONOCYTE (test code = MON) % 0-10 EOSINOPHIL (test code = EOS) % 0.0-5.0 CABOT RINGS (test code = CAB) MORPHOLOGY COMMENT (test code = MOC) PLATELET ESTIMATE (test code = PLTEST) PLATELET MORPHOLOGY (test code = PLTMORPH) CBC W/MANUAL [id number] 06:25:00* Test Item Value Reference Range Interpretation Comments WHITE BLOOD CELL (test code = WBC) 8.1 K/mm3 4.5-12.5 N RED BLOOD CELL (test code = RBC) 3.23 mill/mm3 3.7-5.2 L HEMOGLOBIN (test code = HGB) 9.6 gram/dL 11.5-15.5 L HEMATOCRIT (test code = HCT) 29.3 % 36.0-46.0 L MEAN CELL VOLUME (test code = MCV) 90.7 fL 80-98 N MEAN CELL HGB (test code = MCH) 29.7 picogram 27.0-33.0 N MEAN CELL HGB CONCETRATION (test code = MCHC) 32.8 gram/dL 33.0-36. 0 L RED CELL DISTRIBUTION WIDTH (test code = RDW) 16.1 % 11.6-16. 2 N RED CELL DISTRIBUTION WIDTH SD (test code = RDW-SD) 53.1 fL 37 .0-51.0 H PLATELET COUNT (test code = PLT) 97 K/mm3 150-450 L MEAN PLATELET VOLUME (test code = MPV) 12.4 fL 6.7-11.0 H IMMATURE GRANULOCYTE % (test code = IG%) 1.0 % 0.0-5.0 N NUCLEATED RBC % (test code = NRBC%) 0.0 % 0-0 N NEUTROPHIL # (test code = NT#) 6.57 K/mm3 1.8-7.7 N IMMATURE GRANULOCYTE # (test code = IG#) 0.08 x10 3/uL 0-0.03 H LYMPHOCYTE # (test code = LY#) 0.70 K/mm3 1.0-5.0 L MONOCYTE # (test code = MO#) 0.75 K/mm3 0-0.8 N EOSINOPHIL # (test code = EO#) 0.01 K/mm3 0.0-0.5 N BASOPHIL # (test code = BA#) 0.01 K/mm3 0.0-0.2 N NUCLEATED RBC # (test code = NRBC#) 0.00 K/mm3 0.0-0.1 N MANUAL DIFF REQUIRED (test code = MDIFF) YES STAIN ACCEPTABILITY (test code = STN ACCEPTABLE) TOTAL CELLS COUNTED (test code = TCC) #CELLS SEGMENTED NEUTROPHILS (test code = SEG) % 39-69 LYMPHOCYTE (test code = LYMPH) % 25-55 MONOCYTE (test code = MON) % 0-10 EOSINOPHIL (test code = EOS) % 0.0-5.0 CABOT RINGS (test code = CAB) MORPHOLOGY COMMENT (test code = MOC) PLATELET ESTIMATE (test code = PLTEST) PLATELET MORPHOLOGY (test code = PLTMORPH) [id number] 06:02:00* Test Item Value Reference Range Interpretation Comments GLUBED (test code = GLUBED) 98 mg/dL 74-106 N Performed by certified threader operator at [facility] [id number] 21:52:00* Test Item Value Reference Range Interpretation Comments GLUBED (test code = GLUBED) 94 mg/dL 74-106 N Performed by certified threader operator at [facility] [id number] 17:33:00* Test Item Value Reference Range Interpretation Comments GLUBED (test code = GLUBED) 82 mg/dL 74-106 N Performed by certified threader operator at [facility] BASIC METABOLIC [id number] 15:52:00* Test Item Value Reference Range Interpretation Comments SODIUM (test code = NA) 139 mmol/L 136-145 N POTASSIUM (test code = K) 4.5 mmol/L 3.5-5.1 N CHLORIDE (test code = CL) 107.0 mmol/L 98-107 N CARBON DIOXIDE (test code = CO2) 26.0 mmol/L 21-32 N ANION GAP (test code = GAP) 10.5 10-20 N GLUCOSE (test code = GLU) 87 mg/dL 74-106 N BLOOD UREA NITROGEN (test code = BUN) 12 mg/dL 7-18 N GLOMERULAR FILTRATION RATE (test code = GFR) > 60 mL/min >=60 Estimated GFR by using Modified MDRD formula.Chronic kidney disease is defined as either kidney damageor GFR <60 mL/min/1.73 m2 for >3 months. CREATININE (test code = CREAT) 0.30 mg/dL 0.55-1.02 L Note change in reference range due to change in reagent. BUN/CREATININE RATIO (test code = BUN/CREA) 40.0 10-20 H CALCIUM (test code = CA) 7.9 mg/dL 8.5-10.1 L [id number] 15:52:00* Test Item Value Reference Range Interpretation Comments MAGNESIUM (test code = MAG) 1.8 mg/dL 1.8-2.4 N BASIC METABOLIC [id number] 15:47:00* Test Item Value Reference Range Interpretation Comments SODIUM (test code = NA) 139 mmol/L 136-145 N POTASSIUM (test code = K) 4.5 mmol/L 3.5-5.1 N CHLORIDE (test code = CL) 107.0 mmol/L 98-107 N CARBON DIOXIDE (test code = CO2) mmol/L 21-32 ANION GAP (test code = GAP) 10-20 GLUCOSE (test code = GLU) mg/dL 74-106 BLOOD UREA NITROGEN (test code = BUN) mg/dL 7-18 GLOMERULAR FILTRATION RATE (test code = GFR) mL/min >=60 CREATININE (test code = CREAT) mg/dL 0.55-1.02 BUN/CREATININE RATIO (test code = BUN/CREA) 10-20 CALCIUM (test code = CA) mg/dL 8.5-10.1 [id number] 15:47:00* Test Item Value Reference Range Interpretation Comments MAGNESIUM (test code = MAG) mg/dL 1.8-2.4 [id number] 12:21:00* Test Item Value Reference Range Interpretation Comments GLUBED (test code = GLUBED) 91 mg/dL 74-106 N Performed by certified threader operator at [facility] [id number] 06:01:00* Test Item Value Reference Range Interpretation Comments GLUBED (test code = GLUBED) 96 mg/dL 74-106 N Performed by certified threader operator at [facility] [id number] 00:29:00* Test Item Value Reference Range Interpretation Comments GLUBED (test code = GLUBED) 97 mg/dL 74-106 N Performed by certified threader operator at [facility] [id number] 21:53:00* Test Item Value Reference Range Interpretation Comments GLUBED (test code = GLUBED) 100 mg/dL 74-106 N Performed by certified threader operator at [facility] BASIC METABOLIC [id number] 17:55:00* Test Item Value Reference Range Interpretation Comments SODIUM (test code = NA) 139 mmol/L 136-145 N POTASSIUM (test code = K) 3.9 mmol/L 3.5-5.1 N CHLORIDE (test code = CL) 107.0 mmol/L 98-107 N CARBON DIOXIDE (test code = CO2) 24.0 mmol/L 21-32 N ANION GAP (test code = GAP) 11.9 10-20 N GLUCOSE (test code = GLU) 105 mg/dL 74-106 N BLOOD UREA NITROGEN (test code = BUN) 9 mg/dL 7-18 N GLOMERULAR FILTRATION RATE (test code = GFR) > 60 mL/min >=60 Estimated GFR by using Modified MDRD formula.Chronic kidney disease is defined as either kidney damageor GFR <60 mL/min/1.73 m2 for >3 months. CREATININE (test code = CREAT) 0.40 mg/dL 0.55-1.02 L Note change in reference range due to change in reagent. BUN/CREATININE RATIO (test code = BUN/CREA) 22.5 10-20 H CALCIUM (test code = CA) 8.1 mg/dL 8.5-10.1 L 1323WAITING OD DRS ORDERS TO DRAW [address] [id number] ON DRS LESIA RS TO DRAW FROM [place] MENJIVAR SAID COMEBACK LATER. V.LAB.[facility] 03/27/19 0541 [id number] 17:55:00* Test Item Value Reference Range Interpretation Comments MAGNESIUM (test code = MAG) 2.1 mg/dL 1.8-2.4 N 1323WAITING OD DRS ORDERS TO DRAW [address] [id number] ON DRS LESIA RS TO DRAW FROM [place] MENJIVAR SAID COMEBACK LATER. V.LAB.[facility] 03/27/19 0541 BASIC METABOLIC [id number] 17:49:00* Test Item Value Reference Range Interpretation Comments SODIUM (test code = NA) 139 mmol/L 136-145 N POTASSIUM (test code = K) 3.9 mmol/L 3.5-5.1 N CHLORIDE (test code = CL) 107.0 mmol/L 98-107 N CARBON DIOXIDE (test code = CO2) mmol/L 21-32 ANION GAP (test code = GAP) 10-20 GLUCOSE (test code = GLU) mg/dL 74-106 BLOOD UREA NITROGEN (test code = BUN) mg/dL 7-18 GLOMERULAR FILTRATION RATE (test code = GFR) mL/min >=60 CREATININE (test code = CREAT) mg/dL 0.55-1.02 BUN/CREATININE RATIO (test code = BUN/CREA) 10-20 CALCIUM (test code = CA) mg/dL 8.5-10.1 1323WAITING OD DRS ORDERS TO DRAW 0955 V.LAB.JS1 [id number] ON DRS ORDE RS TO DRAW FROM [place] MENJIVAR SAID COMEBACK LATER. V.LAB.RP1 03/27/19 0541 [id number] 17:49:00* Test Item Value Reference Range Interpretation Comments MAGNESIUM (test code = MAG) mg/dL 1.8-2.4 1323WAITING OD DRS ORDERS TO DRAW 0955 V.LAB.JS1 [id number] ON DRS ORDE RS TO DRAW FROM [place] MENJIVAR SAID COMEBACK LATER. V.LAB.1 03/27/1941 [id number] 07:31:00* Test Item Value Reference Range Interpretation Comments GLUBED (test code = GLUBED) 108 mg/dL 74-106 H Performed by certified threader operator at [facility] [id number] 03:07:00* Test Item Value Reference Range Interpretation Comments GLUBED (test code = GLUBED) 96 mg/dL 74-106 N Performed by certified threader operator at [facility] [id number] 22:06:00* Test Item Value Reference Range Interpretation Comments GLUBED (test code = GLUBED) 97 mg/dL 74-106 N Performed by certified threader operator at [facility] [id number] 13:13:00* Test Item Value Reference Range Interpretation Comments GLUBED (test code = GLUBED) 94 mg/dL 74-106 N Performed by certified threader operator at [facility] [id number] 10:27:00* Test Item Value Reference Range Interpretation Comments MAGNESIUM (test code = MAG) 1.3 mg/dL 1.8-2.4 L BASIC METABOLIC [id number] 09:18:00* Test Item Value Reference Range Interpretation Comments SODIUM (test code = NA) 143 mmol/L 136-145 N POTASSIUM (test code = K) 2.5 mmol/L 3.5-5.1 LL Re sults called to [id number] by V.LAB.CF2 03/26/19 0918Critical results verified and read back by Nurse? Y CHLORIDE (test code = CL) 107.0 mmol/L 98-107 N CARBON DIOXIDE (test code = CO2) 23.0 mmol/L 21-32 N ANION GAP (test code = GAP) 15.5 10-20 N GLUCOSE (test code = GLU) 112 mg/dL 74-106 H BLOOD UREA NITROGEN (test code = BUN) 4 mg/dL 7-18 L GLOMERULAR FILTRATION RATE (test code = GFR) > 60 mL/min >=60 Estimated GFR by using Modified MDRD formula.Chronic kidney disease is defined as either kidney damageor GFR <60 mL/min/1.73 m2 for >3 months. CREATININE (test code = CREAT) 0.40 mg/dL 0.55-1.02 L Note change in reference range due to change in reagent. BUN/CREATININE RATIO (test code = BUN/CREA) 10.0 10-20 N CALCIUM (test code = CA) 7.9 mg/dL 8.5-10.1 L [id number] 07:26:00* Test Item Value Reference Range Interpretation Comments GLUBED (test code = GLUBED) 131 mg/dL 74-106 H Performed by certified threader operator at [facility] CBC W/AUTO [id number] 06:44:00* Test Item Value Reference Range Interpretation Comments WHITE BLOOD CELL (test code = WBC) 6.3 K/mm3 4.5-12.5 N RED BLOOD CELL (test code = RBC) 3.21 mill/mm3 3.7-5.2 L HEMOGLOBIN (test code = HGB) 9.5 gram/dL 11.5-15.5 L HEMATOCRIT (test code = HCT) 29.4 % 36.0-46.0 L MEAN CELL VOLUME (test code = MCV) 91.6 fL 80-98 N MEAN CELL HGB (test code = MCH) 29.6 picogram 27.0-33.0 N MEAN CELL HGB CONCETRATION (test code = MCHC) 32.3 gram/dL 33.0-36. 0 L RED CELL DISTRIBUTION WIDTH (test code = RDW) 16.1 % 11.6-16. 2 N RED CELL DISTRIBUTION WIDTH SD (test code = RDW-SD) 53.3 fL 37 .0-51.0 H PLATELET COUNT (test code = PLT) 63 K/mm3 150-450 L MEAN PLATELET VOLUME (test code = MPV) 12.1 fL 6.7-11.0 H NEUTROPHIL % (test code = NT%) 86.9 % 39.0-69.0 H IMMATURE GRANULOCYTE % (test code = IG%) 0.5 % 0.0-5.0 N LYMPHOCYTE % (test code = LY%) 7.8 % 25.0-55.0 L MONOCYTE % (test code = MO%) 4.6 % 0.0-10.0 N EOSINOPHIL % (test code = EO%) 0.0 % 0.0-5.0 N BASOPHIL % (test code = BA%) 0.2 % 0.0-1.0 N NUCLEATED RBC % (test code = NRBC%) 0.0 % 0-0 N NEUTROPHIL # (test code = NT#) 5.44 K/mm3 1.8-7.7 N IMMATURE GRANULOCYTE # (test code = IG#) 0.03 x10 3/uL 0-0.03 N LYMPHOCYTE # (test code = LY#) 0.49 K/mm3 1.0-5.0 L MONOCYTE # (test code = MO#) 0.29 K/mm3 0-0.8 N EOSINOPHIL # (test code = EO#) 0.00 K/mm3 0.0-0.5 N BASOPHIL # (test code = BA#) 0.01 K/mm3 0.0-0.2 N NUCLEATED RBC # (test code = NRBC#) 0.00 K/mm3 0.0-0.1 N MANUAL DIFF REQUIRED (test code = MDIFF) NO THROMBOPLASTIN TIME [id number] 13:44:00* Test Item Value Reference Range Interpretation Comments THROMBOPLASTIN TIME PARTIAL (test code = PTT) 33.7 seconds 25.0-36. 5 N PT HARD STICK NOTIFIED BRUNILDA BETANCOURT@[email or web address] 03/25/19 1056IS PATIENT ON ANTICOAGULAN TS? [employer] ANTICOAGULANTS [id number] 10:43:00* Test Item Value Reference Range Interpretation Comments GLUBED (test code = GLUBED) 121 mg/dL 74-106 H Performed by certified threader operator at [facility] [id number] 06:34:00* Test Item Value Reference Range Interpretation Comments GLUBED (test code = GLUBED) 71 mg/dL 74-106 L Performed by certified threader operator at [facility] THROMBOPLASTIN TIME [id number] 02:31:00* Test Item Value Reference Range Interpretation Comments THROMBOPLASTIN TIME PARTIAL (test code = PTT) 60.6 seconds 25.0-36. 5 H IS PATIENT ON ANTICOAGULANTS? [employer]TICO[employer]UL[employer] [id number] 01:33:00* Test Item Value Reference Range Interpretation Comments GLUBED (test code = GLUBED) 86 mg/dL 74-106 N Performed by certified threader operator at [facility] THROMBOPLASTIN TIME [id number] 19:35:00* Test Item Value Reference Range Interpretation Comments THROMBOPLASTIN TIME PARTIAL (test code = PTT) 57.2 seconds 25.0-36. 5 H IS PATIENT ON ANTICOAGULANTS? [employer] ANTICO[employer]UL[employer] [id number] 11:47:00* Test Item Value Reference Range Interpretation Comments GLUBED (test code = GLUBED) 85 mg/dL 74-106 N Performed by certified threader operator at [facility] BASIC METABOLIC [id number] 08:50:00* Test Item Value Reference Range Interpretation Comments SODIUM (test code = NA) 141 mmol/L 136-145 N POTASSIUM (test code = K) 3.7 mmol/L 3.5-5.1 N CHLORIDE (test code = CL) 108.0 mmol/L 98-107 H CARBON DIOXIDE (test code = CO2) 25.0 mmol/L 21-32 N ANION GAP (test code = GAP) 11.7 10-20 N GLUCOSE (test code = GLU) 74 mg/dL 74-106 N BLOOD UREA NITROGEN (test code = BUN) 5 mg/dL 7-18 L GLOMERULAR FILTRATION RATE (test code = GFR) > 60 mL/min >=60 Estimated GFR by using Modified MDRD formula.Chronic kidney disease is defined as either kidney damageor GFR <60 mL/min/1.73 m2 for >3 months. CREATININE (test code = CREAT) 0.40 mg/dL 0.55-1.02 L Note change in reference range due to change in reagent. BUN/CREATININE RATIO (test code = BUN/CREA) 12.5 10-20 N CALCIUM (test code = CA) 7.8 mg/dL 8.5-10.1 L BASIC METABOLIC [id number] 08:43:00* Test Item Value Reference Range Interpretation Comments SODIUM (test code = NA) 141 mmol/L 136-145 N POTASSIUM (test code = K) 3.7 mmol/L 3.5-5.1 N CHLORIDE (test code = CL) 108.0 mmol/L 98-107 H CARBON DIOXIDE (test code = CO2) mmol/L 21-32 ANION GAP (test code = GAP) 10-20 GLUCOSE (test code = GLU) mg/dL 74-106 BLOOD UREA NITROGEN (test code = BUN) mg/dL 7-18 GLOMERULAR FILTRATION RATE (test code = GFR) mL/min >=60 CREATININE (test code = CREAT) mg/dL 0.55-1.02 BUN/CREATININE RATIO (test code = BUN/CREA) 10-20 CALCIUM (test code = CA) mg/dL 8.5-10.1 THROMBOPLASTIN TIME [id number] 08:20:00* Test Item Value Reference Range Interpretation Comments THROMBOPLASTIN TIME PARTIAL (test code = PTT) 46.8 seconds 25.0-36. 5 H IS PATIENT ON ANTICOAGULANTS? [employer] [id number] 06:20:00* Test Item Value Reference Range Interpretation Comments GLUBED (test code = GLUBED) 83 mg/dL 74-106 N Performed by certified threader operator at [facility] THROMBOPLASTIN TIME [id number] 01:44:00* Test Item Value Reference Range Interpretation Comments THROMBOPLASTIN TIME PARTIAL (test code = PTT) 61.8 seconds 25.0-36. 5 H IS PATIENT ON ANTICOAGULANTS? [employer] [id number] 21:13:00* Test Item Value Reference Range Interpretation Comments GLUBED (test code = GLUBED) 73 mg/dL 74-106 L Performed by certified threader operator at [facility] THROMBOPLASTIN TIME [id number] 18:12:00* Test Item Value Reference Range Interpretation Comments THROMBOPLASTIN TIME PARTIAL (test code = PTT) 86.9 seconds 25.0-36. 5 HH Results called to CHRISTINA by PRINCETS1 03/23/19 1811Critical results verified and read back by Nurse? Y IS PATIENT ON ANTICOAGULANTS? [employer] [id number] 16:53:00* Test Item Value Reference Range Interpretation Comments GLUBED (test code = GLUBED) 70 mg/dL 74-106 L Performed by certified threader operator at [facility] [id number] 12:08:00* Test Item Value Reference Range Interpretation Comments GLUBED (test code = GLUBED) 93 mg/dL 74-106 N Performed by certified threader operator at [facility] BASIC METABOLIC [id number] 09:02:00* Test Item Value Reference Range Interpretation Comments SODIUM (test code = NA) 143 mmol/L 136-145 N POTASSIUM (test code = K) 3.1 mmol/L 3.5-5.1 L CHLORIDE (test code = CL) 109.0 mmol/L 98-107 H CARBON DIOXIDE (test code = CO2) 29.0 mmol/L 21-32 N ANION GAP (test code = GAP) 8.1 10-20 L GLUCOSE (test code = GLU) 95 mg/dL 74-106 N BLOOD UREA NITROGEN (test code = BUN) 5 mg/dL 7-18 L GLOMERULAR FILTRATION RATE (test code = GFR) > 60 mL/min >=60 Estimated GFR by using Modified MDRD formula.Chronic kidney disease is defined as either kidney damageor GFR <60 mL/min/1.73 m2 for >3 months. CREATININE (test code = CREAT) 0.40 mg/dL 0.55-1.02 L Note change in reference range due to change in reagent. BUN/CREATININE RATIO (test code = BUN/CREA) 12.5 10-20 N CALCIUM (test code = CA) 7.9 mg/dL 8.5-10.1 L [id number] 09:02:00* Test Item Value Reference Range Interpretation Comments MAGNESIUM (test code = MAG) 1.3 mg/dL 1.8-2.4 L BASIC METABOLIC [id number] 08:58:00* Test Item Value Reference Range Interpretation Comments SODIUM (test code = NA) 143 mmol/L 136-145 N POTASSIUM (test code = K) 3.1 mmol/L 3.5-5.1 L CHLORIDE (test code = CL) 109.0 mmol/L 98-107 H CARBON DIOXIDE (test code = CO2) mmol/L 21-32 ANION GAP (test code = GAP) 10-20 GLUCOSE (test code = GLU) mg/dL 74-106 BLOOD UREA NITROGEN (test code = BUN) mg/dL 7-18 GLOMERULAR FILTRATION RATE (test code = GFR) mL/min >=60 CREATININE (test code = CREAT) mg/dL 0.55-1.02 BUN/CREATININE RATIO (test code = BUN/CREA) 10-20 CALCIUM (test code = CA) mg/dL 8.5-10.1 [id number] 08:58:00* Test Item Value Reference Range Interpretation Comments MAGNESIUM (test code = MAG) mg/dL 1.8-2.4 THROMBOPLASTIN TIME [id number] 07:33:00* Test Item Value Reference Range Interpretation Comments THROMBOPLASTIN TIME PARTIAL (test code = PTT) 104.5 seconds 25.0-36 .5 HH Results called to CHRISTINA [id number] V.LAB.OA 03/23/19 0732Critical results verified and read back by Nurse? Y IS PATIENT ON ANTICOAGULANTS? [employer]TICO[employer] [id number] 05:26:00* Test Item Value Reference Range Interpretation Comments GLUBED (test code = GLUBED) 88 mg/dL 74-106 N Performed by certified threader operator at [facility] THROMBOPLASTIN TIME [id number] 23:21:00* Test Item Value Reference Range Interpretation Comments THROMBOPLASTIN TIME PARTIAL (test code = PTT) 62.1 seconds 25.0-36. 5 H IS PATIENT ON ANTICOAGULANTS? [employer] ANTICOAGUL[employer] [id number] 21:46:00* Test Item Value Reference Range Interpretation Comments GLUBED (test code = GLUBED) 88 mg/dL 74-106 N Performed by certified threader operator at [facility] BASIC METABOLIC [id number] 19:07:00* Test Item Value Reference Range Interpretation Comments SODIUM (test code = NA) 143 mmol/L 136-145 N POTASSIUM (test code = K) 2.5 mmol/L 3.5-5.1 Re sults called to [id number] by V.LAB. 03/22/19 1906Critical results verified and read back by Nurse? Y CHLORIDE (test code = CL) 108.0 mmol/L 98-107 H CARBON DIOXIDE (test code = CO2) 29.0 mmol/L 21-32 N ANION GAP (test code = GAP) 8.5 10-20 L GLUCOSE (test code = GLU) 81 mg/dL 74-106 N BLOOD UREA NITROGEN (test code = BUN) 4 mg/dL 7-18 L GLOMERULAR FILTRATION RATE (test code = GFR) > 60 mL/min >=60 Estimated GFR by using Modified MDRD formula.Chronic kidney disease is defined as either kidney damageor GFR <60 mL/min/1.73 m2 for >3 months. CREATININE (test code = CREAT) 0.30 mg/dL 0.55-1.02 L Note change in reference range due to change in reagent. BUN/CREATININE RATIO (test code = BUN/CREA) 13.3 10-20 N CALCIUM (test code = CA) 7.7 mg/dL 8.5-10.1 L REFUSAL BRUNILDA BETANCOURT IS AWARE BASIC METABOLIC [id number] 19:06:00* Test Item Value Reference Range Interpretation Comments SODIUM (test code = NA) 143 mmol/L 136-145 N POTASSIUM (test code = K) 2.5 mmol/L 3.5-5.1 [facility] sults called to [id number] by V.LAB. 03/22/19 1906Critical results verified and read back by Nurse? Y CHLORIDE (test code = CL) 108.0 mmol/L 98-107 H CARBON DIOXIDE (test code = CO2) mmol/L 21-32 ANION GAP (test code = GAP) 10-20 GLUCOSE (test code = GLU) mg/dL 74-106 BLOOD UREA NITROGEN (test code = BUN) mg/dL 7-18 GLOMERULAR FILTRATION RATE (test code = GFR) mL/min >=60 CREATININE (test code = CREAT) mg/dL 0.55-1.02 BUN/CREATININE RATIO (test code = BUN/CREA) 10-20 CALCIUM (test code = CA) mg/dL 8.5-10.1 REFUSAL BRUNILDA BETANCOURT IS AWARE [id number] 16:44:00* Test Item Value Reference Range Interpretation Comments GLUBED (test code = GLUBED) 88 mg/dL 74-106 N Performed by certified threader operator at [facility] [id number] 11:32:00* Test Item Value Reference Range Interpretation Comments GLUBED (test code = GLUBED) 98 mg/dL 74-106 N Performed by certified threader operator at [facility] [id number] 06:37:00* Test Item Value Reference Range Interpretation Comments GLUBED (test code = GLUBED) 91 mg/dL 74-106 N Performed by certified threader operator at [facility] [id number] 19:57:00* Test Item Value Reference Range Interpretation Comments GLUBED (test code = GLUBED) 94 mg/dL 74-106 N Performed by certified threader operator at [facility] [id number] 16:15:00* Test Item Value Reference Range Interpretation Comments GLUBED (test code = GLUBED) 82 mg/dL 74-106 N Performed by certified threader operator at [facility] [id number] 16:14:00* Test Item Value Reference Range Interpretation Comments GLUBED (test code = GLUBED) 94 mg/dL 74-106 N Performed by certified threader operator at [facility] CBC W/MANUAL [id number] 14:44:00* Test Item Value Reference Range Interpretation Comments WHITE BLOOD CELL (test code = WBC) 5.3 K/mm3 4.5-12.5 N RED BLOOD CELL (test code = RBC) 3.60 mill/mm3 3.7-5.2 L HEMOGLOBIN (test code = HGB) 10.8 gram/dL 11.5-15.5 L HEMATOCRIT (test code = HCT) 33.0 % 36.0-46.0 L MEAN CELL VOLUME (test code = MCV) 91.7 fL 80-98 N MEAN CELL HGB (test code = MCH) 30.0 picogram 27.0-33.0 N MEAN CELL HGB CONCETRATION (test code = MCHC) 32.7 gram/dL 33.0-36. 0 L RED CELL DISTRIBUTION WIDTH (test code = RDW) 16.6 % 11.6-16. 2 H RED CELL DISTRIBUTION WIDTH SD (test code = RDW-SD) 55.0 fL 37 .0-51.0 H PLATELET COUNT (test code = PLT) 72 K/mm3 150-450 L MEAN PLATELET VOLUME (test code = MPV) 11.4 fL 6.7-11.0 H IMMATURE GRANULOCYTE % (test code = IG%) 1.7 % 0.0-5.0 N NUCLEATED RBC % (test code = NRBC%) 0.0 % 0-0 N NEUTROPHIL # (test code = NT#) 4.15 K/mm3 1.8-7.7 N IMMATURE GRANULOCYTE # (test code = IG#) 0.09 x10 3/uL 0-0.03 H LYMPHOCYTE # (test code = LY#) 0.60 K/mm3 1.0-5.0 L MONOCYTE # (test code = MO#) 0.42 K/mm3 0-0.8 N EOSINOPHIL # (test code = EO#) 0.01 K/mm3 0.0-0.5 N BASOPHIL # (test code = BA#) 0.01 K/mm3 0.0-0.2 N NUCLEATED RBC # (test code = NRBC#) 0.00 K/mm3 0.0-0.1 N MANUAL DIFF REQUIRED (test code = MDIFF) YES STAIN ACCEPTABILITY (test code = STN ACCEPTABLE) STAIN ACCEPTABLE TOTAL CELLS COUNTED (test code = TCC) 112 #CELLS SEGMENTED NEUTROPHILS (test code = SEG) 83.9 % 39-69 H BAND NEUTROPHIL (test code = BAND) 7.1 % 0-10 N LYMPHOCYTE (test code = LYMPH) 7.2 % 25-55 L REACTIVE LYMPH (test code = RELYMPH) 0 % MONOCYTE (test code = MON) 1.8 % 0-10 N EOSINOPHIL (test code = EOS) 0 % 0.0-5.0 N BASOPHIL (test code = BASO) 0 % 0-1.0 N METAMYELOCYTE (test code = META) 0 % 0-0 N MYELOCYTE (test code = MYELO) 0 % 0.0-0.0 N PROMYELOCYTE (test code = PROM) 0 % 0-0 N POIKILOCYTOSIS (test code = POIK) 1+ ANISOCYTOSIS (test code = ANISO) 1+ MACROCYTOSIS (test code = MACR) 1+ PLATELET ESTIMATE (test code = PLTEST) DECREASED PLATELET MORPHOLOGY (test code = PLTMORPH) SIZE VARIABLE IMMATURE FORMS (test code = IMMAT) 0 % 0-0 N COMPREHENSIVE METABOLIC [id number] 14:25:00* Test Item Value Reference Range Interpretation Comments SODIUM (test code = NA) 144 mmol/L 136-145 N POTASSIUM (test code = K) 3.5 mmol/L 3.5-5.1 N CHLORIDE (test code = CL) 113.0 mmol/L 98-107 H CARBON DIOXIDE (test code = CO2) 25.0 mmol/L 21-32 N ANION GAP (test code = GAP) 9.5 10-20 L GLUCOSE (test code = GLU) 82 mg/dL 74-106 N BLOOD UREA NITROGEN (test code = BUN) 3 mg/dL 7-18 L GLOMERULAR FILTRATION RATE (test code = GFR) > 60 mL/min >=60 Estimated GFR by using Modified MDRD formula.Chronic kidney disease is defined as either kidney damageor GFR <60 mL/min/1.73 m2 for >3 months. CREATININE (test code = CREAT) 0.30 mg/dL 0.55-1.02 L Note change in reference range due to change in reagent. BUN/CREATININE RATIO (test code = BUN/CREA) 10.0 10-20 N TOTAL PROTEIN (test code = PROT) 4.0 gram/dL 6.4-8.2 L ALBUMIN (test code = ALB) 1.4 g/dL 3.4-5.0 L GLOBULIN (test code = GLOB) 2.6 gram/dL 2.7-4.2 L ALBUMIN/GLOBULIN RATIO (test code = A/G) 0.5 0.75-1.50 L CALCIUM (test code = CA) 7.6 mg/dL 8.5-10.1 L BILIRUBIN TOTAL (test code = BILT) 0.90 mg/dL 0.0-1.0 N SGOT/AST (test code = AST) 40 IUnit/L 15-37 H SGPT/ALT (test code = ALT) 26 IUnit/L 12-78 N ALKALINE PHOSPHATASE TOTAL (test code = ALKP) 83 IUnit/L 45-117 N Note change in reference range due to change in reagent. COMPREHENSIVE METABOLIC [id number] 14:21:00* Test Item Value Reference Range Interpretation Comments SODIUM (test code = NA) 144 mmol/L 136-145 N POTASSIUM (test code = K) 3.5 mmol/L 3.5-5.1 N CHLORIDE (test code = CL) 113.0 mmol/L 98-107 H CARBON DIOXIDE (test code = CO2) mmol/L 21-32 ANION GAP (test code = GAP) 10-20 GLUCOSE (test code = GLU) mg/dL 74-106 BLOOD UREA NITROGEN (test code = BUN) mg/dL 7-18 GLOMERULAR FILTRATION RATE (test code = GFR) mL/min >=60 CREATININE (test code = CREAT) mg/dL 0.55-1.02 BUN/CREATININE RATIO (test code = BUN/CREA) 10-20 TOTAL PROTEIN (test code = PROT) gram/dL 6.4-8.2 ALBUMIN (test code = ALB) g/dL 3.4-5.0 GLOBULIN (test code = GLOB) gram/dL 2.7-4.2 ALBUMIN/GLOBULIN RATIO (test code = A/G) 0.75-1.50 CALCIUM (test code = CA) mg/dL 8.5-10.1 BILIRUBIN TOTAL (test code = BILT) mg/dL 0.0-1.0 SGOT/AST (test code = AST) IUnit/L 15-37 SGPT/ALT (test code = ALT) IUnit/L 12-78 ALKALINE PHOSPHATASE TOTAL (test code = ALKP) IUnit/L 45-117 CBC W/MANUAL [id number] 14:17:00* Test Item Value Reference Range Interpretation Comments WHITE BLOOD CELL (test code = WBC) 5.3 K/mm3 4.5-12.5 N RED BLOOD CELL (test code = RBC) 3.60 mill/mm3 3.7-5.2 L HEMOGLOBIN (test code = HGB) 10.8 gram/dL 11.5-15.5 L HEMATOCRIT (test code = HCT) 33.0 % 36.0-46.0 L MEAN CELL VOLUME (test code = MCV) 91.7 fL 80-98 N MEAN CELL HGB (test code = MCH) 30.0 picogram 27.0-33.0 N MEAN CELL HGB CONCETRATION (test code = MCHC) 32.7 gram/dL 33.0-36. 0 L RED CELL DISTRIBUTION WIDTH (test code = RDW) 16.6 % 11.6-16. 2 H RED CELL DISTRIBUTION WIDTH SD (test code = RDW-SD) 55.0 fL 37 .0-51.0 H PLATELET COUNT (test code = PLT) 72 K/mm3 150-450 L MEAN PLATELET VOLUME (test code = MPV) 11.4 fL 6.7-11.0 H IMMATURE GRANULOCYTE % (test code = IG%) 1.7 % 0.0-5.0 N NUCLEATED RBC % (test code = NRBC%) 0.0 % 0-0 N NEUTROPHIL # (test code = NT#) 4.15 K/mm3 1.8-7.7 N IMMATURE GRANULOCYTE # (test code = IG#) 0.09 x10 3/uL 0-0.03 H LYMPHOCYTE # (test code = LY#) 0.60 K/mm3 1.0-5.0 L MONOCYTE # (test code = MO#) 0.42 K/mm3 0-0.8 N EOSINOPHIL # (test code = EO#) 0.01 K/mm3 0.0-0.5 N BASOPHIL # (test code = BA#) 0.01 K/mm3 0.0-0.2 N NUCLEATED RBC # (test code = NRBC#) 0.00 K/mm3 0.0-0.1 N MANUAL DIFF REQUIRED (test code = MDIFF) YES STAIN ACCEPTABILITY (test code = STN ACCEPTABLE) TOTAL CELLS COUNTED (test code = TCC) #CELLS SEGMENTED NEUTROPHILS (test code = SEG) % 39-69 LYMPHOCYTE (test code = LYMPH) % 25-55 MONOCYTE (test code = MON) % 0-10 EOSINOPHIL (test code = EOS) % 0.0-5.0 CABOT RINGS (test code = CAB) MORPHOLOGY COMMENT (test code = MOC) PLATELET ESTIMATE (test code = PLTEST) PLATELET MORPHOLOGY (test code = PLTMORPH) CBC W/MANUAL [id number] 14:17:00* Test Item Value Reference Range Interpretation Comments WHITE BLOOD CELL (test code = WBC) 5.3 K/mm3 4.5-12.5 N RED BLOOD CELL (test code = RBC) 3.60 mill/mm3 3.7-5.2 L HEMOGLOBIN (test code = HGB) 10.8 gram/dL 11.5-15.5 L HEMATOCRIT (test code = HCT) 33.0 % 36.0-46.0 L MEAN CELL VOLUME (test code = MCV) 91.7 fL 80-98 N MEAN CELL HGB (test code = MCH) 30.0 picogram 27.0-33.0 N MEAN CELL HGB CONCETRATION (test code = MCHC) 32.7 gram/dL 33.0-36. 0 L RED CELL DISTRIBUTION WIDTH (test code = RDW) 16.6 % 11.6-16. 2 H RED CELL DISTRIBUTION WIDTH SD (test code = RDW-SD) 55.0 fL 37 .0-51.0 H PLATELET COUNT (test code = PLT) 72 K/mm3 150-450 L MEAN PLATELET VOLUME (test code = MPV) 11.4 fL 6.7-11.0 H IMMATURE GRANULOCYTE % (test code = IG%) 1.7 % 0.0-5.0 N NUCLEATED RBC % (test code = NRBC%) 0.0 % 0-0 N NEUTROPHIL # (test code = NT#) 4.15 K/mm3 1.8-7.7 N IMMATURE GRANULOCYTE # (test code = IG#) 0.09 x10 3/uL 0-0.03 H LYMPHOCYTE # (test code = LY#) 0.60 K/mm3 1.0-5.0 L MONOCYTE # (test code = MO#) 0.42 K/mm3 0-0.8 N EOSINOPHIL # (test code = EO#) 0.01 K/mm3 0.0-0.5 N BASOPHIL # (test code = BA#) 0.01 K/mm3 0.0-0.2 N NUCLEATED RBC # (test code = NRBC#) 0.00 K/mm3 0.0-0.1 N MANUAL DIFF REQUIRED (test code = MDIFF) YES STAIN ACCEPTABILITY (test code = STN ACCEPTABLE) TOTAL CELLS COUNTED (test code = TCC) #CELLS SEGMENTED NEUTROPHILS (test code = SEG) % 39-69 LYMPHOCYTE (test code = LYMPH) % 25-55 MONOCYTE (test code = MON) % 0-10 EOSINOPHIL (test code = EOS) % 0.0-5.0 CABOT RINGS (test code = CAB) MORPHOLOGY COMMENT (test code = MOC) PLATELET ESTIMATE (test code = PLTEST) PLATELET MORPHOLOGY (test code = PLTMORPH) CBC W/MANUAL [id number] 14:17:00* Test Item Value Reference Range Interpretation Comments WHITE BLOOD CELL (test code = WBC) 5.3 K/mm3 4.5-12.5 N RED BLOOD CELL (test code = RBC) 3.60 mill/mm3 3.7-5.2 L HEMOGLOBIN (test code = HGB) 10.8 gram/dL 11.5-15.5 L HEMATOCRIT (test code = HCT) 33.0 % 36.0-46.0 L MEAN CELL VOLUME (test code = MCV) 91.7 fL 80-98 N MEAN CELL HGB (test code = MCH) 30.0 picogram 27.0-33.0 N MEAN CELL HGB CONCETRATION (test code = MCHC) 32.7 gram/dL 33.0-36. 0 L RED CELL DISTRIBUTION WIDTH (test code = RDW) 16.6 % 11.6-16. 2 H RED CELL DISTRIBUTION WIDTH SD (test code = RDW-SD) 55.0 fL 37 .0-51.0 H PLATELET COUNT (test code = PLT) 72 K/mm3 150-450 L MEAN PLATELET VOLUME (test code = MPV) 11.4 fL 6.7-11.0 H IMMATURE GRANULOCYTE % (test code = IG%) 1.7 % 0.0-5.0 N NUCLEATED RBC % (test code = NRBC%) 0.0 % 0-0 N NEUTROPHIL # (test code = NT#) 4.15 K/mm3 1.8-7.7 N IMMATURE GRANULOCYTE # (test code = IG#) 0.09 x10 3/uL 0-0.03 H LYMPHOCYTE # (test code = LY#) 0.60 K/mm3 1.0-5.0 L MONOCYTE # (test code = MO#) 0.42 K/mm3 0-0.8 N EOSINOPHIL # (test code = EO#) 0.01 K/mm3 0.0-0.5 N BASOPHIL # (test code = BA#) 0.01 K/mm3 0.0-0.2 N NUCLEATED RBC # (test code = NRBC#) 0.00 K/mm3 0.0-0.1 N MANUAL DIFF REQUIRED (test code = MDIFF) YES STAIN ACCEPTABILITY (test code = STN ACCEPTABLE) TOTAL CELLS COUNTED (test code = TCC) #CELLS SEGMENTED NEUTROPHILS (test code = SEG) % 39-69 LYMPHOCYTE (test code = LYMPH) % 25-55 MONOCYTE (test code = MON) % 0-10 EOSINOPHIL (test code = EOS) % 0.0-5.0 MORPHOLOGY COMMENT (test code = MOC) PLATELET ESTIMATE (test code = PLTEST) PLATELET MORPHOLOGY (test code = PLTMORPH) CBC W/MANUAL [id number] 14:17:00* Test Item Value Reference Range Interpretation Comments WHITE BLOOD CELL (test code = WBC) 5.3 K/mm3 4.5-12.5 N RED BLOOD CELL (test code = RBC) 3.60 mill/mm3 3.7-5.2 L HEMOGLOBIN (test code = HGB) 10.8 gram/dL 11.5-15.5 L HEMATOCRIT (test code = HCT) 33.0 % 36.0-46.0 L MEAN CELL VOLUME (test code = MCV) 91.7 fL 80-98 N MEAN CELL HGB (test code = MCH) 30.0 picogram 27.0-33.0 N MEAN CELL HGB CONCETRATION (test code = MCHC) 32.7 gram/dL 33.0-36. 0 L RED CELL DISTRIBUTION WIDTH (test code = RDW) 16.6 % 11.6-16. 2 H RED CELL DISTRIBUTION WIDTH SD (test code = RDW-SD) 55.0 fL 37 .0-51.0 H PLATELET COUNT (test code = PLT) 72 K/mm3 150-450 L MEAN PLATELET VOLUME (test code = MPV) 11.4 fL 6.7-11.0 H IMMATURE GRANULOCYTE % (test code = IG%) 1.7 % 0.0-5.0 N NUCLEATED RBC % (test code = NRBC%) 0.0 % 0-0 N NEUTROPHIL # (test code = NT#) 4.15 K/mm3 1.8-7.7 N IMMATURE GRANULOCYTE # (test code = IG#) 0.09 x10 3/uL 0-0.03 H LYMPHOCYTE # (test code = LY#) 0.60 K/mm3 1.0-5.0 L MONOCYTE # (test code = MO#) 0.42 K/mm3 0-0.8 N EOSINOPHIL # (test code = EO#) 0.01 K/mm3 0.0-0.5 N BASOPHIL # (test code = BA#) 0.01 K/mm3 0.0-0.2 N NUCLEATED RBC # (test code = NRBC#) 0.00 K/mm3 0.0-0.1 N MANUAL DIFF REQUIRED (test code = MDIFF) YES STAIN ACCEPTABILITY (test code = STN ACCEPTABLE) TOTAL CELLS COUNTED (test code = TCC) #CELLS SEGMENTED NEUTROPHILS (test code = SEG) % 39-69 LYMPHOCYTE (test code = LYMPH) % 25-55 MONOCYTE (test code = MON) % 0-10 MORPHOLOGY COMMENT (test code = MOC) PLATELET ESTIMATE (test code = PLTEST) PLATELET MORPHOLOGY (test code = PLTMORPH) CBC W/MANUAL [id number] 14:17:00* Test Item Value Reference Range Interpretation Comments WHITE BLOOD CELL (test code = WBC) 5.3 K/mm3 4.5-12.5 N RED BLOOD CELL (test code = RBC) 3.60 mill/mm3 3.7-5.2 L HEMOGLOBIN (test code = HGB) 10.8 gram/dL 11.5-15.5 L HEMATOCRIT (test code = HCT) 33.0 % 36.0-46.0 L MEAN CELL VOLUME (test code = MCV) 91.7 fL 80-98 N MEAN CELL HGB (test code = MCH) 30.0 picogram 27.0-33.0 N MEAN CELL HGB CONCETRATION (test code = MCHC) 32.7 gram/dL 33.0-36. 0 L RED CELL DISTRIBUTION WIDTH (test code = RDW) 16.6 % 11.6-16. 2 H RED CELL DISTRIBUTION WIDTH SD (test code = RDW-SD) 55.0 fL 37 .0-51.0 H PLATELET COUNT (test code = PLT) 72 K/mm3 150-450 L MEAN PLATELET VOLUME (test code = MPV) 11.4 fL 6.7-11.0 H IMMATURE GRANULOCYTE % (test code = IG%) 1.7 % 0.0-5.0 N NUCLEATED RBC % (test code = NRBC%) 0.0 % 0-0 N NEUTROPHIL # (test code = NT#) 4.15 K/mm3 1.8-7.7 N IMMATURE GRANULOCYTE # (test code = IG#) 0.09 x10 3/uL 0-0.03 H LYMPHOCYTE # (test code = LY#) 0.60 K/mm3 1.0-5.0 L MONOCYTE # (test code = MO#) 0.42 K/mm3 0-0.8 N EOSINOPHIL # (test code = EO#) 0.01 K/mm3 0.0-0.5 N BASOPHIL # (test code = BA#) 0.01 K/mm3 0.0-0.2 N NUCLEATED RBC # (test code = NRBC#) 0.00 K/mm3 0.0-0.1 N MANUAL DIFF REQUIRED (test code = MDIFF) YES STAIN ACCEPTABILITY (test code = STN ACCEPTABLE) TOTAL CELLS COUNTED (test code = TCC) #CELLS SEGMENTED NEUTROPHILS (test code = SEG) % 39-69 LYMPHOCYTE (test code = LYMPH) % 25-55 MONOCYTE (test code = MON) % 0-10 EOSINOPHIL (test code = EOS) % 0.0-5.0 CABOT RINGS (test code = CAB) MORPHOLOGY COMMENT (test code = MOC) PLATELET ESTIMATE (test code = PLTEST) PLATELET MORPHOLOGY (test code = PLTMORPH) [id number] 05:59:00* Test Item Value Reference Range Interpretation Comments GLUBED (test code = GLUBED) 88 mg/dL 74-106 N Performed by certified threader operator at [facility] [id number] 21:28:00* Test Item Value Reference Range Interpretation Comments GLUBED (test code = GLUBED) 89 mg/dL 74-106 N Performed by certified threader operator at [facility] CBC W/MANUAL [id number] 09:17:00* Test Item Value Reference Range Interpretation Comments WHITE BLOOD CELL (test code = WBC) 6.6 K/mm3 4.5-12.5 N RED BLOOD CELL (test code = RBC) 3.12 mill/mm3 3.7-5.2 L HEMOGLOBIN (test code = HGB) 9.2 gram/dL 11.5-15.5 L RESULT VERIFIED BY REPEAT ANALYSIS HEMATOCRIT (test code = HCT) 29.5 % 36.0-46.0 L MEAN CELL VOLUME (test code = MCV) 94.6 fL 80-98 N MEAN CELL HGB (test code = MCH) 29.5 picogram 27.0-33.0 N MEAN CELL HGB CONCETRATION (test code = MCHC) 31.2 gram/dL 33.0-36. 0 L RED CELL DISTRIBUTION WIDTH (test code = RDW) 17.2 % 11.6-16. 2 H RED CELL DISTRIBUTION WIDTH SD (test code = RDW-SD) 58.7 fL 37 .0-51.0 H PLATELET COUNT (test code = PLT) 83 K/mm3 150-450 L RESULT VERIFIED BY REPEAT ANALYSIS MEAN PLATELET VOLUME (test code = MPV) 11.6 fL 6.7-11.0 H IMMATURE GRANULOCYTE % (test code = IG%) 0.8 % 0.0-5.0 N NUCLEATED RBC % (test code = NRBC%) 0.0 % 0-0 N NEUTROPHIL # (test code = NT#) 5.63 K/mm3 1.8-7.7 N IMMATURE GRANULOCYTE # (test code = IG#) 0.05 x10 3/uL 0-0.03 H LYMPHOCYTE # (test code = LY#) 0.43 K/mm3 1.0-5.0 L MONOCYTE # (test code = MO#) 0.45 K/mm3 0-0.8 N EOSINOPHIL # (test code = EO#) 0.01 K/mm3 0.0-0.5 N BASOPHIL # (test code = BA#) 0.01 K/mm3 0.0-0.2 N NUCLEATED RBC # (test code = NRBC#) 0.00 K/mm3 0.0-0.1 N MANUAL DIFF REQUIRED (test code = MDIFF) YES STAIN ACCEPTABILITY (test code = STN ACCEPTABLE) STAIN ACCEPTABLE TOTAL CELLS COUNTED (test code = TCC) 113 #CELLS SEGMENTED NEUTROPHILS (test code = SEG) 88.5 % 39-69 H BAND NEUTROPHIL (test code = BAND) 6.2 % 0-10 N LYMPHOCYTE (test code = LYMPH) 3.5 % 25-55 L REACTIVE LYMPH (test code = RELYMPH) 0 % MONOCYTE (test code = MON) 1.8 % 0-10 N EOSINOPHIL (test code = EOS) 0 % 0.0-5.0 N BASOPHIL (test code = BASO) 0 % 0-1.0 N METAMYELOCYTE (test code = META) 0 % 0-0 N MYELOCYTE (test code = MYELO) 0 % 0.0-0.0 N PROMYELOCYTE (test code = PROM) 0 % 0-0 N POIKILOCYTOSIS (test code = POIK) 3+ ANISOCYTOSIS (test code = ANISO) 3+ MACROCYTOSIS (test code = MACR) 3+ PLATELET ESTIMATE (test code = PLTEST) DECREASED PLATELET MORPHOLOGY (test code = PLTMORPH) SIZE VARIABLE IMMATURE FORMS (test code = IMMAT) 0 % 0-0 N BASIC METABOLIC [id number] 07:23:00* Test Item Value Reference Range Interpretation Comments SODIUM (test code = NA) 142 mmol/L 136-145 N POTASSIUM (test code = K) 4.6 mmol/L 3.5-5.1 N CHLORIDE (test code = CL) 112.0 mmol/L 98-107 H CARBON DIOXIDE (test code = CO2) 23.0 mmol/L 21-32 N ANION GAP (test code = GAP) 11.6 10-20 N GLUCOSE (test code = GLU) 84 mg/dL 74-106 N BLOOD UREA NITROGEN (test code = BUN) 3 mg/dL 7-18 L GLOMERULAR FILTRATION RATE (test code = GFR) > 60 mL/min >=60 Estimated GFR by using Modified MDRD formula.Chronic kidney disease is defined as either kidney damageor GFR <60 mL/min/1.73 m2 for >3 months. CREATININE (test code = CREAT) 0.40 mg/dL 0.55-1.02 L Note change in reference range due to change in reagent. BUN/CREATININE RATIO (test code = BUN/CREA) 7.5 10-20 L CALCIUM (test code = CA) 7.9 mg/dL 8.5-10.1 L CBC W/MANUAL [id number] 07:16:00* Test Item Value Reference Range Interpretation Comments WHITE BLOOD CELL (test code = WBC) 6.6 K/mm3 4.5-12.5 N RED BLOOD CELL (test code = RBC) 3.12 mill/mm3 3.7-5.2 L HEMOGLOBIN (test code = HGB) 9.2 gram/dL 11.5-15.5 L RESULT VERIFIED BY REPEAT ANALYSIS HEMATOCRIT (test code = HCT) 29.5 % 36.0-46.0 L MEAN CELL VOLUME (test code = MCV) 94.6 fL 80-98 N MEAN CELL HGB (test code = MCH) 29.5 picogram 27.0-33.0 N MEAN CELL HGB CONCETRATION (test code = MCHC) 31.2 gram/dL 33.0-36. 0 L RED CELL DISTRIBUTION WIDTH (test code = RDW) 17.2 % 11.6-16. 2 H RED CELL DISTRIBUTION WIDTH SD (test code = RDW-SD) 58.7 fL 37 .0-51.0 H PLATELET COUNT (test code = PLT) 83 K/mm3 150-450 L RESULT VERIFIED BY REPEAT ANALYSIS MEAN PLATELET VOLUME (test code = MPV) 11.6 fL 6.7-11.0 H IMMATURE GRANULOCYTE % (test code = IG%) 0.8 % 0.0-5.0 N NUCLEATED RBC % (test code = NRBC%) 0.0 % 0-0 N NEUTROPHIL # (test code = NT#) 5.63 K/mm3 1.8-7.7 N IMMATURE GRANULOCYTE # (test code = IG#) 0.05 x10 3/uL 0-0.03 H LYMPHOCYTE # (test code = LY#) 0.43 K/mm3 1.0-5.0 L MONOCYTE # (test code = MO#) 0.45 K/mm3 0-0.8 N EOSINOPHIL # (test code = EO#) 0.01 K/mm3 0.0-0.5 N BASOPHIL # (test code = BA#) 0.01 K/mm3 0.0-0.2 N NUCLEATED RBC # (test code = NRBC#) 0.00 K/mm3 0.0-0.1 N MANUAL DIFF REQUIRED (test code = MDIFF) YES STAIN ACCEPTABILITY (test code = STN ACCEPTABLE) TOTAL CELLS COUNTED (test code = TCC) #CELLS SEGMENTED NEUTROPHILS (test code = SEG) % 39-69 LYMPHOCYTE (test code = LYMPH) % 25-55 MONOCYTE (test code = MON) % 0-10 EOSINOPHIL (test code = EOS) % 0.0-5.0 CABOT RINGS (test code = CAB) MORPHOLOGY COMMENT (test code = MOC) PLATELET ESTIMATE (test code = PLTEST) PLATELET MORPHOLOGY (test code = PLTMORPH) CBC W/MANUAL [id number] 07:16:00* Test Item Value Reference Range Interpretation Comments WHITE BLOOD CELL (test code = WBC) 6.6 K/mm3 4.5-12.5 N RED BLOOD CELL (test code = RBC) 3.12 mill/mm3 3.7-5.2 L HEMOGLOBIN (test code = HGB) 9.2 gram/dL 11.5-15.5 L RESULT VERIFIED BY REPEAT ANALYSIS HEMATOCRIT (test code = HCT) 29.5 % 36.0-46.0 L MEAN CELL VOLUME (test code = MCV) 94.6 fL 80-98 N MEAN CELL HGB (test code = MCH) 29.5 picogram 27.0-33.0 N MEAN CELL HGB CONCETRATION (test code = MCHC) 31.2 gram/dL 33.0-36. 0 L RED CELL DISTRIBUTION WIDTH (test code = RDW) 17.2 % 11.6-16. 2 H RED CELL DISTRIBUTION WIDTH SD (test code = RDW-SD) 58.7 fL 37 .0-51.0 H PLATELET COUNT (test code = PLT) 83 K/mm3 150-450 L RESULT VERIFIED BY REPEAT ANALYSIS MEAN PLATELET VOLUME (test code = MPV) 11.6 fL 6.7-11.0 H IMMATURE GRANULOCYTE % (test code = IG%) 0.8 % 0.0-5.0 N NUCLEATED RBC % (test code = NRBC%) 0.0 % 0-0 N NEUTROPHIL # (test code = NT#) 5.63 K/mm3 1.8-7.7 N IMMATURE GRANULOCYTE # (test code = IG#) 0.05 x10 3/uL 0-0.03 H LYMPHOCYTE # (test code = LY#) 0.43 K/mm3 1.0-5.0 L MONOCYTE # (test code = MO#) 0.45 K/mm3 0-0.8 N EOSINOPHIL # (test code = EO#) 0.01 K/mm3 0.0-0.5 N BASOPHIL # (test code = BA#) 0.01 K/mm3 0.0-0.2 N NUCLEATED RBC # (test code = NRBC#) 0.00 K/mm3 0.0-0.1 N MANUAL DIFF REQUIRED (test code = MDIFF) YES STAIN ACCEPTABILITY (test code = STN ACCEPTABLE) TOTAL CELLS COUNTED (test code = TCC) #CELLS SEGMENTED NEUTROPHILS (test code = SEG) % 39-69 LYMPHOCYTE (test code = LYMPH) % 25-55 MONOCYTE (test code = MON) % 0-10 EOSINOPHIL (test code = EOS) % 0.0-5.0 MORPHOLOGY COMMENT (test code = MOC) PLATELET ESTIMATE (test code = PLTEST) PLATELET MORPHOLOGY (test code = PLTMORPH) CBC W/MANUAL [id number] 07:16:00* Test Item Value Reference Range Interpretation Comments WHITE BLOOD CELL (test code = WBC) 6.6 K/mm3 4.5-12.5 N RED BLOOD CELL (test code = RBC) 3.12 mill/mm3 3.7-5.2 L HEMOGLOBIN (test code = HGB) 9.2 gram/dL 11.5-15.5 L RESULT VERIFIED BY REPEAT ANALYSIS HEMATOCRIT (test code = HCT) 29.5 % 36.0-46.0 L MEAN CELL VOLUME (test code = MCV) 94.6 fL 80-98 N MEAN CELL HGB (test code = MCH) 29.5 picogram 27.0-33.0 N MEAN CELL HGB CONCETRATION (test code = MCHC) 31.2 gram/dL 33.0-36. 0 L RED CELL DISTRIBUTION WIDTH (test code = RDW) 17.2 % 11.6-16. 2 H RED CELL DISTRIBUTION WIDTH SD (test code = RDW-SD) 58.7 fL 37 .0-51.0 H PLATELET COUNT (test code = PLT) 83 K/mm3 150-450 L RESULT VERIFIED BY REPEAT ANALYSIS MEAN PLATELET VOLUME (test code = MPV) 11.6 fL 6.7-11.0 H IMMATURE GRANULOCYTE % (test code = IG%) 0.8 % 0.0-5.0 N NUCLEATED RBC % (test code = NRBC%) 0.0 % 0-0 N NEUTROPHIL # (test code = NT#) 5.63 K/mm3 1.8-7.7 N IMMATURE GRANULOCYTE # (test code = IG#) 0.05 x10 3/uL 0-0.03 H LYMPHOCYTE # (test code = LY#) 0.43 K/mm3 1.0-5.0 L MONOCYTE # (test code = MO#) 0.45 K/mm3 0-0.8 N EOSINOPHIL # (test code = EO#) 0.01 K/mm3 0.0-0.5 N BASOPHIL # (test code = BA#) 0.01 K/mm3 0.0-0.2 N NUCLEATED RBC # (test code = NRBC#) 0.00 K/mm3 0.0-0.1 N MANUAL DIFF REQUIRED (test code = MDIFF) YES STAIN ACCEPTABILITY (test code = STN ACCEPTABLE) TOTAL CELLS COUNTED (test code = TCC) #CELLS SEGMENTED NEUTROPHILS (test code = SEG) % 39-69 LYMPHOCYTE (test code = LYMPH) % 25-55 MONOCYTE (test code = MON) % 0-10 MORPHOLOGY COMMENT (test code = MOC) PLATELET ESTIMATE (test code = PLTEST) PLATELET MORPHOLOGY (test code = PLTMORPH) CBC W/MANUAL [id number] 07:15:00* Test Item Value Reference Range Interpretation Comments WHITE BLOOD CELL (test code = WBC) 6.6 K/mm3 4.5-12.5 N RED BLOOD CELL (test code = RBC) 3.12 mill/mm3 3.7-5.2 L HEMOGLOBIN (test code = HGB) 9.2 gram/dL 11.5-15.5 L RESULT VERIFIED BY REPEAT ANALYSIS HEMATOCRIT (test code = HCT) 29.5 % 36.0-46.0 L MEAN CELL VOLUME (test code = MCV) 94.6 fL 80-98 N MEAN CELL HGB (test code = MCH) 29.5 picogram 27.0-33.0 N MEAN CELL HGB CONCETRATION (test code = MCHC) 31.2 gram/dL 33.0-36. 0 L RED CELL DISTRIBUTION WIDTH (test code = RDW) 17.2 % 11.6-16. 2 H RED CELL DISTRIBUTION WIDTH SD (test code = RDW-SD) 58.7 fL 37 .0-51.0 H PLATELET COUNT (test code = PLT) 83 K/mm3 150-450 L RESULT VERIFIED BY REPEAT ANALYSIS MEAN PLATELET VOLUME (test code = MPV) 11.6 fL 6.7-11.0 H IMMATURE GRANULOCYTE % (test code = IG%) 0.8 % 0.0-5.0 N NUCLEATED RBC % (test code = NRBC%) 0.0 % 0-0 N NEUTROPHIL # (test code = NT#) 5.63 K/mm3 1.8-7.7 N IMMATURE GRANULOCYTE # (test code = IG#) 0.05 x10 3/uL 0-0.03 H LYMPHOCYTE # (test code = LY#) 0.43 K/mm3 1.0-5.0 L MONOCYTE # (test code = MO#) 0.45 K/mm3 0-0.8 N EOSINOPHIL # (test code = EO#) 0.01 K/mm3 0.0-0.5 N BASOPHIL # (test code = BA#) 0.01 K/mm3 0.0-0.2 N NUCLEATED RBC # (test code = NRBC#) 0.00 K/mm3 0.0-0.1 N MANUAL DIFF REQUIRED (test code = MDIFF) YES STAIN ACCEPTABILITY (test code = STN ACCEPTABLE) TOTAL CELLS COUNTED (test code = TCC) #CELLS SEGMENTED NEUTROPHILS (test code = SEG) % 39-69 LYMPHOCYTE (test code = LYMPH) % 25-55 MONOCYTE (test code = MON) % 0-10 EOSINOPHIL (test code = EOS) % 0.0-5.0 CABOT RINGS (test code = CAB) MORPHOLOGY COMMENT (test code = MOC) PLATELET ESTIMATE (test code = PLTEST) PLATELET MORPHOLOGY (test code = PLTMORPH) CBC W/MANUAL [id number] 07:15:00* Test Item Value Reference Range Interpretation Comments WHITE BLOOD CELL (test code = WBC) 6.6 K/mm3 4.5-12.5 N RED BLOOD CELL (test code = RBC) 3.12 mill/mm3 3.7-5.2 L HEMOGLOBIN (test code = HGB) 9.2 gram/dL 11.5-15.5 L RESULT VERIFIED BY REPEAT ANALYSIS HEMATOCRIT (test code = HCT) 29.5 % 36.0-46.0 L MEAN CELL VOLUME (test code = MCV) 94.6 fL 80-98 N MEAN CELL HGB (test code = MCH) 29.5 picogram 27.0-33.0 N MEAN CELL HGB CONCETRATION (test code = MCHC) 31.2 gram/dL 33.0-36. 0 L RED CELL DISTRIBUTION WIDTH (test code = RDW) 17.2 % 11.6-16. 2 H RED CELL DISTRIBUTION WIDTH SD (test code = RDW-SD) 58.7 fL 37 .0-51.0 H PLATELET COUNT (test code = PLT) 83 K/mm3 150-450 L RESULT VERIFIED BY REPEAT ANALYSIS MEAN PLATELET VOLUME (test code = MPV) 11.6 fL 6.7-11.0 H IMMATURE GRANULOCYTE % (test code = IG%) 0.8 % 0.0-5.0 N NUCLEATED RBC % (test code = NRBC%) 0.0 % 0-0 N NEUTROPHIL # (test code = NT#) 5.63 K/mm3 1.8-7.7 N IMMATURE GRANULOCYTE # (test code = IG#) 0.05 x10 3/uL 0-0.03 H LYMPHOCYTE # (test code = LY#) 0.43 K/mm3 1.0-5.0 L MONOCYTE # (test code = MO#) 0.45 K/mm3 0-0.8 N EOSINOPHIL # (test code = EO#) 0.01 K/mm3 0.0-0.5 N BASOPHIL # (test code = BA#) 0.01 K/mm3 0.0-0.2 N NUCLEATED RBC # (test code = NRBC#) 0.00 K/mm3 0.0-0.1 N MANUAL DIFF REQUIRED (test code = MDIFF) YES STAIN ACCEPTABILITY (test code = STN ACCEPTABLE) TOTAL CELLS COUNTED (test code = TCC) #CELLS SEGMENTED NEUTROPHILS (test code = SEG) % 39-69 LYMPHOCYTE (test code = LYMPH) % 25-55 MONOCYTE (test code = MON) % 0-10 EOSINOPHIL (test code = EOS) % 0.0-5.0 CABOT RINGS (test code = CAB) MORPHOLOGY COMMENT (test code = MOC) PLATELET ESTIMATE (test code = PLTEST) PLATELET MORPHOLOGY (test code = PLTMORPH) BASIC METABOLIC [id number] 19:01:00* Test Item Value Reference Range Interpretation Comments SODIUM (test code = NA) 141 mmol/L 136-145 N POTASSIUM (test code = K) 2.7 mmol/L 3.5-5.1 LL Re sults called to [id number] by V.[facility] 03/19/19 1901Critical results verified and read back by Nurse? Y CHLORIDE (test code = CL) 108.0 mmol/L 98-107 H CARBON DIOXIDE (test code = CO2) 27.0 mmol/L 21-32 N ANION GAP (test code = GAP) 8.7 10-20 L GLUCOSE (test code = GLU) 92 mg/dL 74-106 N BLOOD UREA NITROGEN (test code = BUN) 4 mg/dL 7-18 L GLOMERULAR FILTRATION RATE (test code = GFR) > 60 mL/min >=60 Estimated GFR by using Modified MDRD formula.Chronic kidney disease is defined as either kidney damageor GFR <60 mL/min/1.73 m2 for >3 months. CREATININE (test code = CREAT) 0.20 mg/dL 0.55-1.02 L Note change in reference range due to change in reagent. BUN/CREATININE RATIO (test code = BUN/CREA) 20.0 10-20 N CALCIUM (test code = CA) 7.7 mg/dL 8.5-10.1 L RN [place] DRAWIMG FROM PORT SENDING TUBES DOWN. V.LAB.RP 1112CBC W/MANUAL [id number] 18:28:00* Test Item Value Reference Range Interpretation Comments WHITE BLOOD CELL (test code = WBC) 3.8 K/mm3 4.5-12.5 L RED BLOOD CELL (test code = RBC) 2.38 mill/mm3 3.7-5.2 L HEMOGLOBIN (test code = HGB) 7.2 gram/dL 11.5-15.5 L HEMATOCRIT (test code = HCT) 22.1 % 36.0-46.0 L MEAN CELL VOLUME (test code = MCV) 92.9 fL 80-98 N MEAN CELL HGB (test code = MCH) 30.3 picogram 27.0-33.0 N MEAN CELL HGB CONCETRATION (test code = MCHC) 32.6 gram/dL 33.0-36. 0 L RED CELL DISTRIBUTION WIDTH (test code = RDW) 16.9 % 11.6-16. 2 H RED CELL DISTRIBUTION WIDTH SD (test code = RDW-SD) 56.0 fL 37 .0-51.0 H PLATELET COUNT (test code = PLT) 57 K/mm3 150-450 L MEAN PLATELET VOLUME (test code = MPV) 11.9 fL 6.7-11.0 H IMMATURE GRANULOCYTE % (test code = IG%) 0.5 % 0.0-5.0 N NUCLEATED RBC % (test code = NRBC%) 0.0 % 0-0 N NEUTROPHIL # (test code = NT#) 3.11 K/mm3 1.8-7.7 N IMMATURE GRANULOCYTE # (test code = IG#) 0.02 x10 3/uL 0-0.03 N LYMPHOCYTE # (test code = LY#) 0.39 K/mm3 1.0-5.0 L MONOCYTE # (test code = MO#) 0.29 K/mm3 0-0.8 N EOSINOPHIL # (test code = EO#) 0.03 K/mm3 0.0-0.5 N BASOPHIL # (test code = BA#) 0.00 K/mm3 0.0-0.2 N NUCLEATED RBC # (test code = NRBC#) 0.00 K/mm3 0.0-0.1 N MANUAL DIFF REQUIRED (test code = MDIFF) YES STAIN ACCEPTABILITY (test code = STN ACCEPTABLE) STAIN ACCEPTABLE TOTAL CELLS COUNTED (test code = TCC) 115 #CELLS SEGMENTED NEUTROPHILS (test code = SEG) 92.2 % 39-69 H BAND NEUTROPHIL (test code = BAND) 0 % 0-10 N LYMPHOCYTE (test code = LYMPH) 2.6 % 25-55 L REACTIVE LYMPH (test code = RELYMPH) 0 % MONOCYTE (test code = MON) 3.5 % 0-10 N EOSINOPHIL (test code = EOS) 1.7 % 0.0-5.0 N BASOPHIL (test code = BASO) 0 % 0-1.0 N METAMYELOCYTE (test code = META) 0 % 0-0 N MYELOCYTE (test code = MYELO) 0 % 0.0-0.0 N PROMYELOCYTE (test code = PROM) 0 % 0-0 N HYPOCHROMIA (test code = HYPO) 1+ ANISOCYTOSIS (test code = ANISO) 1+ PLATELET ESTIMATE (test code = PLTEST) DECREASED PLATELET MORPHOLOGY (test code = PLTMORPH) SIZE VARIABLE IMMATURE FORMS (test code = IMMAT) 0 % 0-0 N [id number] 18:12:00* Test Item Value Reference Range Interpretation Comments MAGNESIUM (test code = MAG) 1.6 mg/dL 1.8-2.4 L BRUNILDA ALEJANDRA SENDING TUBES DOWN, DRAWING FROM PORT. [employer].LAB.RP [id number] 2019-03-19 18:11:00* Test Item Value Reference Range Interpretation Comments PHOSPHORUS (test code = PHOS) 3.2 mg/dL 2.5-4.9 N BRUNIDLA ALEJANDRA SENDING TUBES DOWN, DRAWING FROM PORT. V.LAB.RP [id number]-DIMER 2019-03-19 18:06:00* Test Item Value Reference Range Interpretation Comments D-DIMER (test code = DDIMER) 548.00 ng/mLFEU 0-500 HH Results called to [id number] by V.[email or web address].KP1 03/19/19 1806Critical results verified and [...] skin infections -Liver cirrhosis - CBC W/MANUAL [id number] 17:36:00* Test Item Value Reference Range Interpretation Comments WHITE BLOOD CELL (test code = WBC) 3.8 K/mm3 4.5-12.5 L RED BLOOD CELL (test code = RBC) 2.38 mill/mm3 3.7-5.2 L HEMOGLOBIN (test code = HGB) 7.2 gram/dL 11.5-15.5 L HEMATOCRIT (test code = HCT) 22.1 % 36.0-46.0 L MEAN CELL VOLUME (test code = MCV) 92.9 fL 80-98 N MEAN CELL HGB (test code = MCH) 30.3 picogram 27.0-33.0 N MEAN CELL HGB CONCETRATION (test code = MCHC) 32.6 gram/dL 33.0-36. 0 L RED CELL DISTRIBUTION WIDTH (test code = RDW) 16.9 % 11.6-16. 2 H RED CELL DISTRIBUTION WIDTH SD (test code = RDW-SD) 56.0 fL 37 .0-51.0 H PLATELET COUNT (test code = PLT) 57 K/mm3 150-450 L MEAN PLATELET VOLUME (test code = MPV) 11.9 fL 6.7-11.0 H IMMATURE GRANULOCYTE % (test code = IG%) 0.5 % 0.0-5.0 N NUCLEATED RBC % (test code = NRBC%) 0.0 % 0-0 N NEUTROPHIL # (test code = NT#) 3.11 K/mm3 1.8-7.7 N IMMATURE GRANULOCYTE # (test code = IG#) 0.02 x10 3/uL 0-0.03 N LYMPHOCYTE # (test code = LY#) 0.39 K/mm3 1.0-5.0 L MONOCYTE # (test code = MO#) 0.29 K/mm3 0-0.8 N EOSINOPHIL # (test code = EO#) 0.03 K/mm3 0.0-0.5 N BASOPHIL # (test code = BA#) 0.00 K/mm3 0.0-0.2 N NUCLEATED RBC # (test code = NRBC#) 0.00 K/mm3 0.0-0.1 N MANUAL DIFF REQUIRED (test code = MDIFF) YES STAIN ACCEPTABILITY (test code = STN ACCEPTABLE) TOTAL CELLS COUNTED (test code = TCC) #CELLS SEGMENTED NEUTROPHILS (test code = SEG) % 39-69 LYMPHOCYTE (test code = LYMPH) % 25-55 MONOCYTE (test code = MON) % 0-10 EOSINOPHIL (test code = EOS) % 0.0-5.0 CABOT RINGS (test code = CAB) MORPHOLOGY COMMENT (test code = MOC) PLATELET ESTIMATE (test code = PLTEST) PLATELET MORPHOLOGY (test code = PLTMORPH) CBC W/MANUAL [id number] 17:36:00* Test Item Value Reference Range Interpretation Comments WHITE BLOOD CELL (test code = WBC) 3.8 K/mm3 4.5-12.5 L RED BLOOD CELL (test code = RBC) 2.38 mill/mm3 3.7-5.2 L HEMOGLOBIN (test code = HGB) 7.2 gram/dL 11.5-15.5 L HEMATOCRIT (test code = HCT) 22.1 % 36.0-46.0 L MEAN CELL VOLUME (test code = MCV) 92.9 fL 80-98 N MEAN CELL HGB (test code = MCH) 30.3 picogram 27.0-33.0 N MEAN CELL HGB CONCETRATION (test code = MCHC) 32.6 gram/dL 33.0-36. 0 L RED CELL DISTRIBUTION WIDTH (test code = RDW) 16.9 % 11.6-16. 2 H RED CELL DISTRIBUTION WIDTH SD (test code = RDW-SD) 56.0 fL 37 .0-51.0 H PLATELET COUNT (test code = PLT) 57 K/mm3 150-450 L MEAN PLATELET VOLUME (test code = MPV) 11.9 fL 6.7-11.0 H IMMATURE GRANULOCYTE % (test code = IG%) 0.5 % 0.0-5.0 N NUCLEATED RBC % (test code = NRBC%) 0.0 % 0-0 N NEUTROPHIL # (test code = NT#) 3.11 K/mm3 1.8-7.7 N IMMATURE GRANULOCYTE # (test code = IG#) 0.02 x10 3/uL 0-0.03 N LYMPHOCYTE # (test code = LY#) 0.39 K/mm3 1.0-5.0 L MONOCYTE # (test code = MO#) 0.29 K/mm3 0-0.8 N EOSINOPHIL # (test code = EO#) 0.03 K/mm3 0.0-0.5 N BASOPHIL # (test code = BA#) 0.00 K/mm3 0.0-0.2 N NUCLEATED RBC # (test code = NRBC#) 0.00 K/mm3 0.0-0.1 N MANUAL DIFF REQUIRED (test code = MDIFF) YES STAIN ACCEPTABILITY (test code = STN ACCEPTABLE) TOTAL CELLS COUNTED (test code = TCC) #CELLS SEGMENTED NEUTROPHILS (test code = SEG) % 39-69 LYMPHOCYTE (test code = LYMPH) % 25-55 MONOCYTE (test code = MON) % 0-10 EOSINOPHIL (test code = EOS) % 0.0-5.0 CABOT RINGS (test code = CAB) MORPHOLOGY COMMENT (test code = MOC) PLATELET ESTIMATE (test code = PLTEST) PLATELET MORPHOLOGY (test code = PLTMORPH) CBC W/MANUAL [id number] 17:36:00* Test Item Value Reference Range Interpretation Comments WHITE BLOOD CELL (test code = WBC) 3.8 K/mm3 4.5-12.5 L RED BLOOD CELL (test code = RBC) 2.38 mill/mm3 3.7-5.2 L HEMOGLOBIN (test code = HGB) 7.2 gram/dL 11.5-15.5 L HEMATOCRIT (test code = HCT) 22.1 % 36.0-46.0 L MEAN CELL VOLUME (test code = MCV) 92.9 fL 80-98 N MEAN CELL HGB (test code = MCH) 30.3 picogram 27.0-33.0 N MEAN CELL HGB CONCETRATION (test code = MCHC) 32.6 gram/dL 33.0-36. 0 L RED CELL DISTRIBUTION WIDTH (test code = RDW) 16.9 % 11.6-16. 2 H RED CELL DISTRIBUTION WIDTH SD (test code = RDW-SD) 56.0 fL 37 .0-51.0 H PLATELET COUNT (test code = PLT) 57 K/mm3 150-450 L MEAN PLATELET VOLUME (test code = MPV) 11.9 fL 6.7-11.0 H IMMATURE GRANULOCYTE % (test code = IG%) 0.5 % 0.0-5.0 N NUCLEATED RBC % (test code = NRBC%) 0.0 % 0-0 N NEUTROPHIL # (test code = NT#) 3.11 K/mm3 1.8-7.7 N IMMATURE GRANULOCYTE # (test code = IG#) 0.02 x10 3/uL 0-0.03 N LYMPHOCYTE # (test code = LY#) 0.39 K/mm3 1.0-5.0 L MONOCYTE # (test code = MO#) 0.29 K/mm3 0-0.8 N EOSINOPHIL # (test code = EO#) 0.03 K/mm3 0.0-0.5 N BASOPHIL # (test code = BA#) 0.00 K/mm3 0.0-0.2 N NUCLEATED RBC # (test code = NRBC#) 0.00 K/mm3 0.0-0.1 N MANUAL DIFF REQUIRED (test code = MDIFF) YES STAIN ACCEPTABILITY (test code = STN ACCEPTABLE) TOTAL CELLS COUNTED (test code = TCC) #CELLS SEGMENTED NEUTROPHILS (test code = SEG) % 39-69 LYMPHOCYTE (test code = LYMPH) % 25-55 MONOCYTE (test code = MON) % 0-10 EOSINOPHIL (test code = EOS) % 0.0-5.0 MORPHOLOGY COMMENT (test code = MOC) PLATELET ESTIMATE (test code = PLTEST) PLATELET MORPHOLOGY (test code = PLTMORPH) CBC W/MANUAL [id number] 17:36:00* Test Item Value Reference Range Interpretation Comments WHITE BLOOD CELL (test code = WBC) 3.8 K/mm3 4.5-12.5 L RED BLOOD CELL (test code = RBC) 2.38 mill/mm3 3.7-5.2 L HEMOGLOBIN (test code = HGB) 7.2 gram/dL 11.5-15.5 L HEMATOCRIT (test code = HCT) 22.1 % 36.0-46.0 L MEAN CELL VOLUME (test code = MCV) 92.9 fL 80-98 N MEAN CELL HGB (test code = MCH) 30.3 picogram 27.0-33.0 N MEAN CELL HGB CONCETRATION (test code = MCHC) 32.6 gram/dL 33.0-36. 0 L RED CELL DISTRIBUTION WIDTH (test code = RDW) 16.9 % 11.6-16. 2 H RED CELL DISTRIBUTION WIDTH SD (test code = RDW-SD) 56.0 fL 37 .0-51.0 H PLATELET COUNT (test code = PLT) 57 K/mm3 150-450 L MEAN PLATELET VOLUME (test code = MPV) 11.9 fL 6.7-11.0 H IMMATURE GRANULOCYTE % (test code = IG%) 0.5 % 0.0-5.0 N NUCLEATED RBC % (test code = NRBC%) 0.0 % 0-0 N NEUTROPHIL # (test code = NT#) 3.11 K/mm3 1.8-7.7 N IMMATURE GRANULOCYTE # (test code = IG#) 0.02 x10 3/uL 0-0.03 N LYMPHOCYTE # (test code = LY#) 0.39 K/mm3 1.0-5.0 L MONOCYTE # (test code = MO#) 0.29 K/mm3 0-0.8 N EOSINOPHIL # (test code = EO#) 0.03 K/mm3 0.0-0.5 N BASOPHIL # (test code = BA#) 0.00 K/mm3 0.0-0.2 N NUCLEATED RBC # (test code = NRBC#) 0.00 K/mm3 0.0-0.1 N MANUAL DIFF REQUIRED (test code = MDIFF) YES STAIN ACCEPTABILITY (test code = STN ACCEPTABLE) TOTAL CELLS COUNTED (test code = TCC) #CELLS SEGMENTED NEUTROPHILS (test code = SEG) % 39-69 LYMPHOCYTE (test code = LYMPH) % 25-55 MONOCYTE (test code = MON) % 0-10 MORPHOLOGY COMMENT (test code = MOC) PLATELET ESTIMATE (test code = PLTEST) PLATELET MORPHOLOGY (test code = PLTMORPH) CBC W/MANUAL [id number] 17:36:00* Test Item Value Reference Range Interpretation Comments WHITE BLOOD CELL (test code = WBC) 3.8 K/mm3 4.5-12.5 L RED BLOOD CELL (test code = RBC) 2.38 mill/mm3 3.7-5.2 L HEMOGLOBIN (test code = HGB) 7.2 gram/dL 11.5-15.5 L HEMATOCRIT (test code = HCT) 22.1 % 36.0-46.0 L MEAN CELL VOLUME (test code = MCV) 92.9 fL 80-98 N MEAN CELL HGB (test code = MCH) 30.3 picogram 27.0-33.0 N MEAN CELL HGB CONCETRATION (test code = MCHC) 32.6 gram/dL 33.0-36. 0 L RED CELL DISTRIBUTION WIDTH (test code = RDW) 16.9 % 11.6-16. 2 H RED CELL DISTRIBUTION WIDTH SD (test code = RDW-SD) 56.0 fL 37 .0-51.0 H PLATELET COUNT (test code = PLT) 57 K/mm3 150-450 L MEAN PLATELET VOLUME (test code = MPV) 11.9 fL 6.7-11.0 H IMMATURE GRANULOCYTE % (test code = IG%) 0.5 % 0.0-5.0 N NUCLEATED RBC % (test code = NRBC%) 0.0 % 0-0 N NEUTROPHIL # (test code = NT#) 3.11 K/mm3 1.8-7.7 N IMMATURE GRANULOCYTE # (test code = IG#) 0.02 x10 3/uL 0-0.03 N LYMPHOCYTE # (test code = LY#) 0.39 K/mm3 1.0-5.0 L MONOCYTE # (test code = MO#) 0.29 K/mm3 0-0.8 N EOSINOPHIL # (test code = EO#) 0.03 K/mm3 0.0-0.5 N BASOPHIL # (test code = BA#) 0.00 K/mm3 0.0-0.2 N NUCLEATED RBC # (test code = NRBC#) 0.00 K/mm3 0.0-0.1 N MANUAL DIFF REQUIRED (test code = MDIFF) YES STAIN ACCEPTABILITY (test code = STN ACCEPTABLE) TOTAL CELLS COUNTED (test code = TCC) #CELLS SEGMENTED NEUTROPHILS (test code = SEG) % 39-69 LYMPHOCYTE (test code = LYMPH) % 25-55 MONOCYTE (test code = MON) % 0-10 EOSINOPHIL (test code = EOS) % 0.0-5.0 CABOT RINGS (test code = CAB) MORPHOLOGY COMMENT (test code = MOC) PLATELET ESTIMATE (test code = PLTEST) PLATELET MORPHOLOGY (test code = PLTMORPH) [id number] 15:45:00* Test Item Value Reference Range Interpretation Comments GLUBED (test code = GLUBED) 93 mg/dL 74-106 N Performed by certified threader operator at [facility] [id number] 11:44:00* Test Item Value Reference Range Interpretation Comments GLUBED (test code = GLUBED) 102 mg/dL 74-106 N Performed by certified threader operator at [facility] CBC W/MANUAL [id number] 22:04:00* Test Item Value Reference Range Interpretation Comments WHITE BLOOD CELL (test code = WBC) 3.8 K/mm3 4.5-12.5 L RED BLOOD CELL (test code = RBC) 2.59 mill/mm3 3.7-5.2 L HEMOGLOBIN (test code = HGB) 7.8 gram/dL 11.5-15.5 L RESULT VERIFIED BY REPEAT ANALYSIS HEMATOCRIT (test code = HCT) 24.2 % 36.0-46.0 L MEAN CELL VOLUME (test code = MCV) 93.4 fL 80-98 N MEAN CELL HGB (test code = MCH) 30.1 picogram 27.0-33.0 N MEAN CELL HGB CONCETRATION (test code = MCHC) 32.2 gram/dL 33.0-36. 0 L RED CELL DISTRIBUTION WIDTH (test code = RDW) 16.9 % 11.6-16. 2 H RED CELL DISTRIBUTION WIDTH SD (test code = RDW-SD) 56.6 fL 37 .0-51.0 H PLATELET COUNT (test code = PLT) 60 K/mm3 150-450 L MEAN PLATELET VOLUME (test code = MPV) 12.3 fL 6.7-11.0 H IMMATURE GRANULOCYTE % (test code = IG%) 0.8 % 0.0-5.0 N NUCLEATED RBC % (test code = NRBC%) 0.0 % 0-0 N NEUTROPHIL # (test code = NT#) 2.72 K/mm3 1.8-7.7 N IMMATURE GRANULOCYTE # (test code = IG#) 0.03 x10 3/uL 0-0.03 N LYMPHOCYTE # (test code = LY#) 0.55 K/mm3 1.0-5.0 L MONOCYTE # (test code = MO#) 0.45 K/mm3 0-0.8 N EOSINOPHIL # (test code = EO#) 0.02 K/mm3 0.0-0.5 N BASOPHIL # (test code = BA#) 0.00 K/mm3 0.0-0.2 N NUCLEATED RBC # (test code = NRBC#) 0.00 K/mm3 0.0-0.1 N MANUAL DIFF REQUIRED (test code = MDIFF) YES STAIN ACCEPTABILITY (test code = STN ACCEPTABLE) STAIN ACCEPTABLE TOTAL CELLS COUNTED (test code = TCC) 115 #CELLS SEGMENTED NEUTROPHILS (test code = SEG) 77.4 % 39-69 H BAND NEUTROPHIL (test code = BAND) 6.9 % 0-10 N LYMPHOCYTE (test code = LYMPH) 8.7 % 25-55 L REACTIVE LYMPH (test code = RELYMPH) 0 % MONOCYTE (test code = MON) 6.1 % 0-10 N EOSINOPHIL (test code = EOS) 0.9 % 0.0-5.0 N BASOPHIL (test code = BASO) 0 % 0-1.0 N METAMYELOCYTE (test code = META) 0 % 0-0 N MYELOCYTE (test code = MYELO) 0 % 0.0-0.0 N PROMYELOCYTE (test code = PROM) 0 % 0-0 N POIKILOCYTOSIS (test code = POIK) 2+ ANISOCYTOSIS (test code = ANISO) 1+ MACROCYTOSIS (test code = MACR) 1+ CRENATED CELLS (test code = CREN) 1+ SCARLET CELLS (test code = SCARLET) 1+ NONE PLATELET ESTIMATE (test code = PLTEST) DECREASED PLATELET MORPHOLOGY (test code = PLTMORPH) SIZE VARIABLE IMMATURE FORMS (test code = IMMAT) 0 % 0-0 N CBC W/MANUAL [id number] 21:12:00* Test Item Value Reference Range Interpretation Comments WHITE BLOOD CELL (test code = WBC) 3.8 K/mm3 4.5-12.5 L RED BLOOD CELL (test code = RBC) 2.59 mill/mm3 3.7-5.2 L HEMOGLOBIN (test code = HGB) 7.8 gram/dL 11.5-15.5 L RESULT VERIFIED BY REPEAT ANALYSIS HEMATOCRIT (test code = HCT) 24.2 % 36.0-46.0 L MEAN CELL VOLUME (test code = MCV) 93.4 fL 80-98 N MEAN CELL HGB (test code = MCH) 30.1 picogram 27.0-33.0 N MEAN CELL HGB CONCETRATION (test code = MCHC) 32.2 gram/dL 33.0-36. 0 L RED CELL DISTRIBUTION WIDTH (test code = RDW) 16.9 % 11.6-16. 2 H RED CELL DISTRIBUTION WIDTH SD (test code = RDW-SD) 56.6 fL 37 .0-51.0 H PLATELET COUNT (test code = PLT) 60 K/mm3 150-450 L MEAN PLATELET VOLUME (test code = MPV) 12.3 fL 6.7-11.0 H IMMATURE GRANULOCYTE % (test code = IG%) 0.8 % 0.0-5.0 N NUCLEATED RBC % (test code = NRBC%) 0.0 % 0-0 N NEUTROPHIL # (test code = NT#) 2.72 K/mm3 1.8-7.7 N IMMATURE GRANULOCYTE # (test code = IG#) 0.03 x10 3/uL 0-0.03 N LYMPHOCYTE # (test code = LY#) 0.55 K/mm3 1.0-5.0 L MONOCYTE # (test code = MO#) 0.45 K/mm3 0-0.8 N EOSINOPHIL # (test code = EO#) 0.02 K/mm3 0.0-0.5 N BASOPHIL # (test code = BA#) 0.00 K/mm3 0.0-0.2 N NUCLEATED RBC # (test code = NRBC#) 0.00 K/mm3 0.0-0.1 N MANUAL DIFF REQUIRED (test code = MDIFF) YES STAIN ACCEPTABILITY (test code = STN ACCEPTABLE) TOTAL CELLS COUNTED (test code = TCC) #CELLS SEGMENTED NEUTROPHILS (test code = SEG) % 39-69 LYMPHOCYTE (test code = LYMPH) % 25-55 MONOCYTE (test code = MON) % 0-10 EOSINOPHIL (test code = EOS) % 0.0-5.0 CAB[place] RINGS (test code = CAB) MORPHOLOGY COMMENT (test code = MOC) PLATELET ESTIMATE (test code = PLTEST) PLATELET MORPHOLOGY (test code = PLTMORPH) CBC W/MANUAL [id number] 21:12:00* Test Item Value Reference Range Interpretation Comments WHITE BLOOD CELL (test code = WBC) 3.8 K/mm3 4.5-12.5 L RED BLOOD CELL (test code = RBC) 2.59 mill/mm3 3.7-5.2 L HEMOGLOBIN (test code = HGB) 7.8 gram/dL 11.5-15.5 L RESULT VERIFIED BY REPEAT ANALYSIS HEMATOCRIT (test code = HCT) 24.2 % 36.0-46.0 L MEAN CELL VOLUME (test code = MCV) 93.4 fL 80-98 N MEAN CELL HGB (test code = MCH) 30.1 picogram 27.0-33.0 N MEAN CELL HGB CONCETRATION (test code = MCHC) 32.2 gram/dL 33.0-36. 0 L RED CELL DISTRIBUTION WIDTH (test code = RDW) 16.9 % 11.6-16. 2 H RED CELL DISTRIBUTION WIDTH SD (test code = RDW-SD) 56.6 fL 37 .0-51.0 H PLATELET COUNT (test code = PLT) 60 K/mm3 150-450 L MEAN PLATELET VOLUME (test code = MPV) 12.3 fL 6.7-11.0 H IMMATURE GRANULOCYTE % (test code = IG%) 0.8 % 0.0-5.0 N NUCLEATED RBC % (test code = NRBC%) 0.0 % 0-0 N NEUTROPHIL # (test code = NT#) 2.72 K/mm3 1.8-7.7 N IMMATURE GRANULOCYTE # (test code = IG#) 0.03 x10 3/uL 0-0.03 N LYMPHOCYTE # (test code = LY#) 0.55 K/mm3 1.0-5.0 L MONOCYTE # (test code = MO#) 0.45 K/mm3 0-0.8 N EOSINOPHIL # (test code = EO#) 0.02 K/mm3 0.0-0.5 N BASOPHIL # (test code = BA#) 0.00 K/mm3 0.0-0.2 N NUCLEATED RBC # (test code = NRBC#) 0.00 K/mm3 0.0-0.1 N MANUAL DIFF REQUIRED (test code = MDIFF) YES STAIN ACCEPTABILITY (test code = STN ACCEPTABLE) TOTAL CELLS COUNTED (test code = TCC) #CELLS SEGMENTED NEUTROPHILS (test code = SEG) % 39-69 LYMPHOCYTE (test code = LYMPH) % 25-55 MONOCYTE (test code = MON) % 0-10 EOSINOPHIL (test code = EOS) % 0.0-5.0 CABOT RINGS (test code = CAB) MORPHOLOGY COMMENT (test code = MOC) PLATELET ESTIMATE (test code = PLTEST) PLATELET MORPHOLOGY (test code = PLTMORPH) CBC W/MANUAL [id number] 21:12:00* Test Item Value Reference Range Interpretation Comments WHITE BLOOD CELL (test code = WBC) 3.8 K/mm3 4.5-12.5 L RED BLOOD CELL (test code = RBC) 2.59 mill/mm3 3.7-5.2 L HEMOGLOBIN (test code = HGB) 7.8 gram/dL 11.5-15.5 L RESULT VERIFIED BY REPEAT ANALYSIS HEMATOCRIT (test code = HCT) 24.2 % 36.0-46.0 L MEAN CELL VOLUME (test code = MCV) 93.4 fL 80-98 N MEAN CELL HGB (test code = MCH) 30.1 picogram 27.0-33.0 N MEAN CELL HGB CONCETRATION (test code = MCHC) 32.2 gram/dL 33.0-36. 0 L RED CELL DISTRIBUTION WIDTH (test code = RDW) 16.9 % 11.6-16. 2 H RED CELL DISTRIBUTION WIDTH SD (test code = RDW-SD) 56.6 fL 37 .0-51.0 H PLATELET COUNT (test code = PLT) 60 K/mm3 150-450 L MEAN PLATELET VOLUME (test code = MPV) 12.3 fL 6.7-11.0 H IMMATURE GRANULOCYTE % (test code = IG%) 0.8 % 0.0-5.0 N NUCLEATED RBC % (test code = NRBC%) 0.0 % 0-0 N NEUTROPHIL # (test code = NT#) 2.72 K/mm3 1.8-7.7 N IMMATURE GRANULOCYTE # (test code = IG#) 0.03 x10 3/uL 0-0.03 N LYMPHOCYTE # (test code = LY#) 0.55 K/mm3 1.0-5.0 L MONOCYTE # (test code = MO#) 0.45 K/mm3 0-0.8 N EOSINOPHIL # (test code = EO#) 0.02 K/mm3 0.0-0.5 N BASOPHIL # (test code = BA#) 0.00 K/mm3 0.0-0.2 N NUCLEATED RBC # (test code = NRBC#) 0.00 K/mm3 0.0-0.1 N MANUAL DIFF REQUIRED (test code = MDIFF) YES STAIN ACCEPTABILITY (test code = STN ACCEPTABLE) TOTAL CELLS COUNTED (test code = TCC) #CELLS SEGMENTED NEUTROPHILS (test code = SEG) % 39-69 LYMPHOCYTE (test code = LYMPH) % 25-55 MONOCYTE (test code = MON) % 0-10 EOSINOPHIL (test code = EOS) % 0.0-5.0 MORPHOLOGY COMMENT (test code = MOC) PLATELET ESTIMATE (test code = PLTEST) PLATELET MORPHOLOGY (test code = PLTMORPH) CBC W/MANUAL [id number] 21:12:00* Test Item Value Reference Range Interpretation Comments WHITE BLOOD CELL (test code = WBC) 3.8 K/mm3 4.5-12.5 L RED BLOOD CELL (test code = RBC) 2.59 mill/mm3 3.7-5.2 L HEMOGLOBIN (test code = HGB) 7.8 gram/dL 11.5-15.5 L RESULT VERIFIED BY REPEAT ANALYSIS HEMATOCRIT (test code = HCT) 24.2 % 36.0-46.0 L MEAN CELL VOLUME (test code = MCV) 93.4 fL 80-98 N MEAN CELL HGB (test code = MCH) 30.1 picogram 27.0-33.0 N MEAN CELL HGB CONCETRATION (test code = MCHC) 32.2 gram/dL 33.0-36. 0 L RED CELL DISTRIBUTION WIDTH (test code = RDW) 16.9 % 11.6-16. 2 H RED CELL DISTRIBUTION WIDTH SD (test code = RDW-SD) 56.6 fL 37 .0-51.0 H PLATELET COUNT (test code = PLT) 60 K/mm3 150-450 L MEAN PLATELET VOLUME (test code = MPV) 12.3 fL 6.7-11.0 H IMMATURE GRANULOCYTE % (test code = IG%) 0.8 % 0.0-5.0 N NUCLEATED RBC % (test code = NRBC%) 0.0 % 0-0 N NEUTROPHIL # (test code = NT#) 2.72 K/mm3 1.8-7.7 N IMMATURE GRANULOCYTE # (test code = IG#) 0.03 x10 3/uL 0-0.03 N LYMPHOCYTE # (test code = LY#) 0.55 K/mm3 1.0-5.0 L MONOCYTE # (test code = MO#) 0.45 K/mm3 0-0.8 N EOSINOPHIL # (test code = EO#) 0.02 K/mm3 0.0-0.5 N BASOPHIL # (test code = BA#) 0.00 K/mm3 0.0-0.2 N NUCLEATED RBC # (test code = NRBC#) 0.00 K/mm3 0.0-0.1 N MANUAL DIFF REQUIRED (test code = MDIFF) YES STAIN ACCEPTABILITY (test code = STN ACCEPTABLE) TOTAL CELLS COUNTED (test code = TCC) #CELLS SEGMENTED NEUTROPHILS (test code = SEG) % 39-69 LYMPHOCYTE (test code = LYMPH) % 25-55 MONOCYTE (test code = MON) % 0-10 MORPHOLOGY COMMENT (test code = MOC) PLATELET ESTIMATE (test code = PLTEST) PLATELET MORPHOLOGY (test code = PLTMORPH) CBC W/MANUAL [id number] 21:12:00* Test Item Value Reference Range Interpretation Comments WHITE BLOOD CELL (test code = WBC) 3.8 K/mm3 4.5-12.5 L RED BLOOD CELL (test code = RBC) 2.59 mill/mm3 3.7-5.2 L HEMOGLOBIN (test code = HGB) 7.8 gram/dL 11.5-15.5 L RESULT VERIFIED BY REPEAT ANALYSIS HEMATOCRIT (test code = HCT) 24.2 % 36.0-46.0 L MEAN CELL VOLUME (test code = MCV) 93.4 fL 80-98 N MEAN CELL HGB (test code = MCH) 30.1 picogram 27.0-33.0 N MEAN CELL HGB CONCETRATION (test code = MCHC) 32.2 gram/dL 33.0-36. 0 L RED CELL DISTRIBUTION WIDTH (test code = RDW) 16.9 % 11.6-16. 2 H RED CELL DISTRIBUTION WIDTH SD (test code = RDW-SD) 56.6 fL 37 .0-51.0 H PLATELET COUNT (test code = PLT) 60 K/mm3 150-450 L MEAN PLATELET VOLUME (test code = MPV) 12.3 fL 6.7-11.0 H IMMATURE GRANULOCYTE % (test code = IG%) 0.8 % 0.0-5.0 N NUCLEATED RBC % (test code = NRBC%) 0.0 % 0-0 N NEUTROPHIL # (test code = NT#) 2.72 K/mm3 1.8-7.7 N IMMATURE GRANULOCYTE # (test code = IG#) 0.03 x10 3/uL 0-0.03 N LYMPHOCYTE # (test code = LY#) 0.55 K/mm3 1.0-5.0 L MONOCYTE # (test code = MO#) 0.45 K/mm3 0-0.8 N EOSINOPHIL # (test code = EO#) 0.02 K/mm3 0.0-0.5 N BASOPHIL # (test code = BA#) 0.00 K/mm3 0.0-0.2 N NUCLEATED RBC # (test code = NRBC#) 0.00 K/mm3 0.0-0.1 N MANUAL DIFF REQUIRED (test code = MDIFF) YES STAIN ACCEPTABILITY (test code = STN ACCEPTABLE) TOTAL CELLS COUNTED (test code = TCC) #CELLS SEGMENTED NEUTROPHILS (test code = SEG) % 39-69 LYMPHOCYTE (test code = LYMPH) % 25-55 MONOCYTE (test code = MON) % 0-10 EOSINOPHIL (test code = EOS) % 0.0-5.0 CABOT RINGS (test code = CAB) MORPHOLOGY COMMENT (test code = MOC) PLATELET ESTIMATE (test code = PLTEST) PLATELET MORPHOLOGY (test code = PLTMORPH) [id number] 15:47:00* Test Item Value Reference Range Interpretation Comments GLUBED (test code = GLUBED) 94 mg/dL 74-106 N Performed by certified threader operator at [facility] PROTHROMBIN [id number] 14:27:00* Test Item Value Reference Range Interpretation Comments PROTHROMBIN TIME PATIENT (test code = PTP) 12.8 seconds 9.0-14.0 N INTERNATIONAL NORMAL RATIO (test code = INR) 1.1 0.8-1.2 N The therapeutic range for oral anticoagulant therapy [...] valves (2.5-3.5) 03/18/19 1201IS PATIENT ON ANTICOAGULANTS? [id number] 11:46:00* Test Item Value Reference Range Interpretation Comments GLUBED (test code = GLUBED) 92 mg/dL 74-106 N Performed by certified threader operator at [facility] [id number] 06:00:00* Test Item Value Reference Range Interpretation Comments GLUBED (test code = GLUBED) 78 mg/dL 74-106 N Performed by certified threader operator at [facility] [id number] 12:02:00* Test Item Value Reference Range Interpretation Comments GLUBED (test code = GLUBED) 94 mg/dL 74-106 N Performed by certified threader operator at [facility] CBC W/MANUAL [id number] 09:17:00* Test Item Value Reference Range Interpretation Comments WHITE BLOOD CELL (test code = WBC) 4.4 K/mm3 4.5-12.5 L RED BLOOD CELL (test code = RBC) 3.50 mill/mm3 3.7-5.2 L HEMOGLOBIN (test code = HGB) 10.3 gram/dL 11.5-15.5 L RESULT VERIFIED BY REPEAT ANALYSIS HEMATOCRIT (test code = HCT) 32.0 % 36.0-46.0 L MEAN CELL VOLUME (test code = MCV) 91.4 fL 80-98 N MEAN CELL HGB (test code = MCH) 29.4 picogram 27.0-33.0 N MEAN CELL HGB CONCETRATION (test code = MCHC) 32.2 gram/dL 33.0-36. 0 L RED CELL DISTRIBUTION WIDTH (test code = RDW) 17.9 % 11.6-16. 2 H RED CELL DISTRIBUTION WIDTH SD (test code = RDW-SD) 59.3 fL 37 .0-51.0 H PLATELET COUNT (test code = PLT) 70 K/mm3 150-450 L MEAN PLATELET VOLUME (test code = MPV) 12.0 fL 6.7-11.0 H IMMATURE GRANULOCYTE % (test code = IG%) 0.7 % 0.0-5.0 N NUCLEATED RBC % (test code = NRBC%) 0.0 % 0-0 N NEUTROPHIL # (test code = NT#) 3.19 K/mm3 1.8-7.7 N IMMATURE GRANULOCYTE # (test code = IG#) 0.03 x10 3/uL 0-0.03 N LYMPHOCYTE # (test code = LY#) 0.65 K/mm3 1.0-5.0 L MONOCYTE # (test code = MO#) 0.44 K/mm3 0-0.8 N EOSINOPHIL # (test code = EO#) 0.03 K/mm3 0.0-0.5 N BASOPHIL # (test code = BA#) 0.01 K/mm3 0.0-0.2 N NUCLEATED RBC # (test code = NRBC#) 0.00 K/mm3 0.0-0.1 N MANUAL DIFF REQUIRED (test code = MDIFF) YES STAIN ACCEPTABILITY (test code = STN ACCEPTABLE) STAIN ACCEPTABLE TOTAL CELLS COUNTED (test code = TCC) 114 #CELLS SEGMENTED NEUTROPHILS (test code = SEG) 85.1 % 39-69 H BAND NEUTROPHIL (test code = BAND) 0 % 0-10 N LYMPHOCYTE (test code = LYMPH) 7.0 % 25-55 L REACTIVE LYMPH (test code = RELYMPH) 0 % MONOCYTE (test code = MON) 7.0 % 0-10 N EOSINOPHIL (test code = EOS) 0 % 0.0-5.0 N BASOPHIL (test code = BASO) 0.9 % 0-1.0 N METAMYELOCYTE (test code = META) 0 % 0-0 N MYELOCYTE (test code = MYELO) 0 % 0.0-0.0 N PROMYELOCYTE (test code = PROM) 0 % 0-0 N ANISOCYTOSIS (test code = ANISO) 1+ MACROCYTOSIS (test code = MACR) 1+ PLATELET ESTIMATE (test code = PLTEST) DECREASED IMMATURE FORMS (test code = IMMAT) 0 % 0-0 N BASIC METABOLIC [id number] 08:27:00* Test Item Value Reference Range Interpretation Comments SODIUM (test code = NA) 139 mmol/L 136-145 N POTASSIUM (test code = K) 3.6 mmol/L 3.5-5.1 N CHLORIDE (test code = CL) 106.0 mmol/L 98-107 N CARBON DIOXIDE (test code = CO2) 26.0 mmol/L 21-32 N ANION GAP (test code = GAP) 10.6 10-20 N GLUCOSE (test code = GLU) 88 mg/dL 74-106 N BLOOD UREA NITROGEN (test code = BUN) 7 mg/dL 7-18 N GLOMERULAR FILTRATION RATE (test code = GFR) > 60 mL/min >=60 Estimated GFR by using Modified MDRD formula.Chronic kidney disease is defined as either kidney damageor GFR <60 mL/min/1.73 m2 for >3 months. CREATININE (test code = CREAT) 0.30 mg/dL 0.55-1.02 L Note change in reference range due to change in reagent. BUN/CREATININE RATIO (test code = BUN/CREA) 23.3 10-20 H CALCIUM (test code = CA) 8.4 mg/dL 8.5-10.1 L [id number] 08:27:00* Test Item Value Reference Range Interpretation Comments MAGNESIUM (test code = MAG) 2.4 mg/dL 1.8-2.4 N CBC W/MANUAL [id number] 08:24:00* Test Item Value Reference Range Interpretation Comments WHITE BLOOD CELL (test code = WBC) 4.4 K/mm3 4.5-12.5 L RED BLOOD CELL (test code = RBC) 3.50 mill/mm3 3.7-5.2 L HEMOGLOBIN (test code = HGB) 10.3 gram/dL 11.5-15.5 L RESULT VERIFIED BY REPEAT ANALYSIS HEMATOCRIT (test code = HCT) 32.0 % 36.0-46.0 L MEAN CELL VOLUME (test code = MCV) 91.4 fL 80-98 N MEAN CELL HGB (test code = MCH) 29.4 picogram 27.0-33.0 N MEAN CELL HGB CONCETRATION (test code = MCHC) 32.2 gram/dL 33.0-36. 0 L RED CELL DISTRIBUTION WIDTH (test code = RDW) 17.9 % 11.6-16. 2 H RED CELL DISTRIBUTION WIDTH SD (test code = RDW-SD) 59.3 fL 37 .0-51.0 H PLATELET COUNT (test code = PLT) 70 K/mm3 150-450 L MEAN PLATELET VOLUME (test code = MPV) 12.0 fL 6.7-11.0 H IMMATURE GRANULOCYTE % (test code = IG%) 0.7 % 0.0-5.0 N NUCLEATED RBC % (test code = NRBC%) 0.0 % 0-0 N NEUTROPHIL # (test code = NT#) 3.19 K/mm3 1.8-7.7 N IMMATURE GRANULOCYTE # (test code = IG#) 0.03 x10 3/uL 0-0.03 N LYMPHOCYTE # (test code = LY#) 0.65 K/mm3 1.0-5.0 L MONOCYTE # (test code = MO#) 0.44 K/mm3 0-0.8 N EOSINOPHIL # (test code = EO#) 0.03 K/mm3 0.0-0.5 N BASOPHIL # (test code = BA#) 0.01 K/mm3 0.0-0.2 N NUCLEATED RBC # (test code = NRBC#) 0.00 K/mm3 0.0-0.1 N MANUAL DIFF REQUIRED (test code = MDIFF) YES STAIN ACCEPTABILITY (test code = STN ACCEPTABLE) TOTAL CELLS COUNTED (test code = TCC) #CELLS SEGMENTED NEUTROPHILS (test code = SEG) % 39-69 LYMPHOCYTE (test code = LYMPH) % 25-55 MONOCYTE (test code = MON) % 0-10 EOSINOPHIL (test code = EOS) % 0.0-5.0 CABOT RINGS (test code = CAB) MORPHOLOGY COMMENT (test code = MOC) PLATELET ESTIMATE (test code = PLTEST) PLATELET MORPHOLOGY (test code = PLTMORPH) CBC W/MANUAL [id number] 08:24:00* Test Item Value Reference Range Interpretation Comments WHITE BLOOD CELL (test code = WBC) 4.4 K/mm3 4.5-12.5 L RED BLOOD CELL (test code = RBC) 3.50 mill/mm3 3.7-5.2 L HEMOGLOBIN (test code = HGB) 10.3 gram/dL 11.5-15.5 L RESULT VERIFIED BY REPEAT ANALYSIS HEMATOCRIT (test code = HCT) 32.0 % 36.0-46.0 L MEAN CELL VOLUME (test code = MCV) 91.4 fL 80-98 N MEAN CELL HGB (test code = MCH) 29.4 picogram 27.0-33.0 N MEAN CELL HGB CONCETRATION (test code = MCHC) 32.2 gram/dL 33.0-36. 0 L RED CELL DISTRIBUTION WIDTH (test code = RDW) 17.9 % 11.6-16. 2 H RED CELL DISTRIBUTION WIDTH SD (test code = RDW-SD) 59.3 fL 37 .0-51.0 H PLATELET COUNT (test code = PLT) 70 K/mm3 150-450 L MEAN PLATELET VOLUME (test code = MPV) 12.0 fL 6.7-11.0 H IMMATURE GRANULOCYTE % (test code = IG%) 0.7 % 0.0-5.0 N NUCLEATED RBC % (test code = NRBC%) 0.0 % 0-0 N NEUTROPHIL # (test code = NT#) 3.19 K/mm3 1.8-7.7 N IMMATURE GRANULOCYTE # (test code = IG#) 0.03 x10 3/uL 0-0.03 N LYMPHOCYTE # (test code = LY#) 0.65 K/mm3 1.0-5.0 L MONOCYTE # (test code = MO#) 0.44 K/mm3 0-0.8 N EOSINOPHIL # (test code = EO#) 0.03 K/mm3 0.0-0.5 N BASOPHIL # (test code = BA#) 0.01 K/mm3 0.0-0.2 N NUCLEATED RBC # (test code = NRBC#) 0.00 K/mm3 0.0-0.1 N MANUAL DIFF REQUIRED (test code = MDIFF) YES STAIN ACCEPTABILITY (test code = STN ACCEPTABLE) TOTAL CELLS COUNTED (test code = TCC) #CELLS SEGMENTED NEUTROPHILS (test code = SEG) % 39-69 LYMPHOCYTE (test code = LYMPH) % 25-55 MONOCYTE (test code = MON) % 0-10 EOSINOPHIL (test code = EOS) % 0.0-5.0 MORPHOLOGY COMMENT (test code = MOC) PLATELET ESTIMATE (test code = PLTEST) PLATELET MORPHOLOGY (test code = PLTMORPH) CBC W/MANUAL [id number] 08:24:00* Test Item Value Reference Range Interpretation Comments WHITE BLOOD CELL (test code = WBC) 4.4 K/mm3 4.5-12.5 L RED BLOOD CELL (test code = RBC) 3.50 mill/mm3 3.7-5.2 L HEMOGLOBIN (test code = HGB) 10.3 gram/dL 11.5-15.5 L RESULT VERIFIED BY REPEAT ANALYSIS HEMATOCRIT (test code = HCT) 32.0 % 36.0-46.0 L MEAN CELL VOLUME (test code = MCV) 91.4 fL 80-98 N MEAN CELL HGB (test code = MCH) 29.4 picogram 27.0-33.0 N MEAN CELL HGB CONCETRATION (test code = MCHC) 32.2 gram/dL 33.0-36. 0 L RED CELL DISTRIBUTION WIDTH (test code = RDW) 17.9 % 11.6-16. 2 H RED CELL DISTRIBUTION WIDTH SD (test code = RDW-SD) 59.3 fL 37 .0-51.0 H PLATELET COUNT (test code = PLT) 70 K/mm3 150-450 L MEAN PLATELET VOLUME (test code = MPV) 12.0 fL 6.7-11.0 H IMMATURE GRANULOCYTE % (test code = IG%) 0.7 % 0.0-5.0 N NUCLEATED RBC % (test code = NRBC%) 0.0 % 0-0 N NEUTROPHIL # (test code = NT#) 3.19 K/mm3 1.8-7.7 N IMMATURE GRANULOCYTE # (test code = IG#) 0.03 x10 3/uL 0-0.03 N LYMPHOCYTE # (test code = LY#) 0.65 K/mm3 1.0-5.0 L MONOCYTE # (test code = MO#) 0.44 K/mm3 0-0.8 N EOSINOPHIL # (test code = EO#) 0.03 K/mm3 0.0-0.5 N BASOPHIL # (test code = BA#) 0.01 K/mm3 0.0-0.2 N NUCLEATED RBC # (test code = NRBC#) 0.00 K/mm3 0.0-0.1 N MANUAL DIFF REQUIRED (test code = MDIFF) YES STAIN ACCEPTABILITY (test code = STN ACCEPTABLE) TOTAL CELLS COUNTED (test code = TCC) #CELLS SEGMENTED NEUTROPHILS (test code = SEG) % 39-69 LYMPHOCYTE (test code = LYMPH) % 25-55 MONOCYTE (test code = MON) % 0-10 MORPHOLOGY COMMENT (test code = MOC) PLATELET ESTIMATE (test code = PLTEST) PLATELET MORPHOLOGY (test code = PLTMORPH) CBC W/MANUAL [id number] 08:23:00* Test Item Value Reference Range Interpretation Comments WHITE BLOOD CELL (test code = WBC) 4.4 K/mm3 4.5-12.5 L RED BLOOD CELL (test code = RBC) 3.50 mill/mm3 3.7-5.2 L HEMOGLOBIN (test code = HGB) 10.3 gram/dL 11.5-15.5 L RESULT VERIFIED BY REPEAT ANALYSIS HEMATOCRIT (test code = HCT) 32.0 % 36.0-46.0 L MEAN CELL VOLUME (test code = MCV) 91.4 fL 80-98 N MEAN CELL HGB (test code = MCH) 29.4 picogram 27.0-33.0 N MEAN CELL HGB CONCETRATION (test code = MCHC) 32.2 gram/dL 33.0-36. 0 L RED CELL DISTRIBUTION WIDTH (test code = RDW) 17.9 % 11.6-16. 2 H RED CELL DISTRIBUTION WIDTH SD (test code = RDW-SD) 59.3 fL 37 .0-51.0 H PLATELET COUNT (test code = PLT) 70 K/mm3 150-450 L MEAN PLATELET VOLUME (test code = MPV) 12.0 fL 6.7-11.0 H IMMATURE GRANULOCYTE % (test code = IG%) 0.7 % 0.0-5.0 N NUCLEATED RBC % (test code = NRBC%) 0.0 % 0-0 N NEUTROPHIL # (test code = NT#) 3.19 K/mm3 1.8-7.7 N IMMATURE GRANULOCYTE # (test code = IG#) 0.03 x10 3/uL 0-0.03 N LYMPHOCYTE # (test code = LY#) 0.65 K/mm3 1.0-5.0 L MONOCYTE # (test code = MO#) 0.44 K/mm3 0-0.8 N EOSINOPHIL # (test code = EO#) 0.03 K/mm3 0.0-0.5 N BASOPHIL # (test code = BA#) 0.01 K/mm3 0.0-0.2 N NUCLEATED RBC # (test code = NRBC#) 0.00 K/mm3 0.0-0.1 N MANUAL DIFF REQUIRED (test code = MDIFF) YES STAIN ACCEPTABILITY (test code = STN ACCEPTABLE) TOTAL CELLS COUNTED (test code = TCC) #CELLS SEGMENTED NEUTROPHILS (test code = SEG) % 39-69 LYMPHOCYTE (test code = LYMPH) % 25-55 MONOCYTE (test code = MON) % 0-10 EOSINOPHIL (test code = EOS) % 0.0-5.0 CABOT RINGS (test code = CAB) MORPHOLOGY COMMENT (test code = MOC) PLATELET ESTIMATE (test code = PLTEST) PLATELET MORPHOLOGY (test code = PLTMORPH) CBC W/MANUAL [id number] 08:23:00* Test Item Value Reference Range Interpretation Comments WHITE BLOOD CELL (test code = WBC) 4.4 K/mm3 4.5-12.5 L RED BLOOD CELL (test code = RBC) 3.50 mill/mm3 3.7-5.2 L HEMOGLOBIN (test code = HGB) 10.3 gram/dL 11.5-15.5 L RESULT VERIFIED BY REPEAT ANALYSIS HEMATOCRIT (test code = HCT) 32.0 % 36.0-46.0 L MEAN CELL VOLUME (test code = MCV) 91.4 fL 80-98 N MEAN CELL HGB (test code = MCH) 29.4 picogram 27.0-33.0 N MEAN CELL HGB CONCETRATION (test code = MCHC) 32.2 gram/dL 33.0-36. 0 L RED CELL DISTRIBUTION WIDTH (test code = RDW) 17.9 % 11.6-16. 2 H RED CELL DISTRIBUTION WIDTH SD (test code = RDW-SD) 59.3 fL 37 .0-51.0 H PLATELET COUNT (test code = PLT) 70 K/mm3 150-450 L MEAN PLATELET VOLUME (test code = MPV) 12.0 fL 6.7-11.0 H IMMATURE GRANULOCYTE % (test code = IG%) 0.7 % 0.0-5.0 N NUCLEATED RBC % (test code = NRBC%) 0.0 % 0-0 N NEUTROPHIL # (test code = NT#) 3.19 K/mm3 1.8-7.7 N IMMATURE GRANULOCYTE # (test code = IG#) 0.03 x10 3/uL 0-0.03 N LYMPHOCYTE # (test code = LY#) 0.65 K/mm3 1.0-5.0 L MONOCYTE # (test code = MO#) 0.44 K/mm3 0-0.8 N EOSINOPHIL # (test code = EO#) 0.03 K/mm3 0.0-0.5 N BASOPHIL # (test code = BA#) 0.01 K/mm3 0.0-0.2 N NUCLEATED RBC # (test code = NRBC#) 0.00 K/mm3 0.0-0.1 N MANUAL DIFF REQUIRED (test code = MDIFF) YES STAIN ACCEPTABILITY (test code = STN ACCEPTABLE) TOTAL CELLS COUNTED (test code = TCC) #CELLS SEGMENTED NEUTROPHILS (test code = SEG) % 39-69 LYMPHOCYTE (test code = LYMPH) % 25-55 MONOCYTE (test code = MON) % 0-10 EOSINOPHIL (test code = EOS) % 0.0-5.0 CABOT RINGS (test code = CAB) MORPHOLOGY COMMENT (test code = MOC) PLATELET ESTIMATE (test code = PLTEST) PLATELET MORPHOLOGY (test code = PLTMORPH) [id number] 06:18:00* Test Item Value Reference Range Interpretation Comments GLUBED (test code = GLUBED) 87 mg/dL 74-106 N Performed by certified threader operator at [facility] [id number] 20:13:00* Test Item Value Reference Range Interpretation Comments GLUBED (test code = GLUBED) 81 mg/dL 74-106 N Performed by certified threader operator at [facility] [id number] 05:59:00* Test Item Value Reference Range Interpretation Comments GLUBED (test code = GLUBED) 94 mg/dL 74-106 N Performed by certified threader operator at [facility] PROTHROMBIN [id number] 04:49:00* Test Item Value Reference Range Interpretation Comments PROTHROMBIN TIME PATIENT (test code = PTP) 15.2 seconds 9.0-14.0 H INTERNATIONAL NORMAL RATIO (test code = INR) 1.3 0.8-1.2 H The therapeutic range for oral anticoagulant therapy [...] (2.5-3.5) IS PATIENT ON ANTICOAGULANTS? NBASIC METABOLIC [id number] 04:47:00* Test Item Value Reference Range Interpretation Comments SODIUM (test code = NA) 143 mmol/L 136-145 N POTASSIUM (test code = K) 3.6 mmol/L 3.5-5.1 N CHLORIDE (test code = CL) 108.0 mmol/L 98-107 H CARBON DIOXIDE (test code = CO2) 30.0 mmol/L 21-32 N ANION GAP (test code = GAP) 8.6 10-20 L GLUCOSE (test code = GLU) 80 mg/dL 74-106 N BLOOD UREA NITROGEN (test code = BUN) 8 mg/dL 7-18 N GLOMERULAR FILTRATION RATE (test code = GFR) > 60 mL/min >=60 Estimated GFR by using Modified MDRD formula.Chronic kidney disease is defined as either kidney damageor GFR <60 mL/min/1.73 m2 for >3 months. CREATININE (test code = CREAT) 0.30 mg/dL 0.55-1.02 L Note change in reference range due to change in reagent. BUN/CREATININE RATIO (test code = BUN/CREA) 26.7 10-20 H CALCIUM (test code = CA) 7.8 mg/dL 8.5-10.1 L [id number] 04:47:00* Test Item Value Reference Range Interpretation Comments PHOSPHORUS (test code = PHOS) 3.5 mg/dL 2.5-4.9 N [id number] 04:47:00* Test Item Value Reference Range Interpretation Comments MAGNESIUM (test code = MAG) 1.5 mg/dL 1.8-2.4 L BASIC METABOLIC [id number] 04:42:00* Test Item Value Reference Range Interpretation Comments SODIUM (test code = NA) 143 mmol/L 136-145 N POTASSIUM (test code = K) 3.6 mmol/L 3.5-5.1 N CHLORIDE (test code = CL) 108.0 mmol/L 98-107 H CARBON DIOXIDE (test code = CO2) mmol/L 21-32 ANION GAP (test code = GAP) 10-20 GLUCOSE (test code = GLU) mg/dL 74-106 BLOOD UREA NITROGEN (test code = BUN) mg/dL 7-18 GLOMERULAR FILTRATION RATE (test code = GFR) mL/min >=60 CREATININE (test code = CREAT) mg/dL 0.55-1.02 BUN/CREATININE RATIO (test code = BUN/CREA) 10-20 CALCIUM (test code = CA) mg/dL 8.5-10.1 [id number] 04:42:00* Test Item Value Reference Range Interpretation Comments PHOSPHORUS (test code = PHOS) mg/dL 2.5-4.9 [id number] 04:42:00* Test Item Value Reference Range Interpretation Comments MAGNESIUM (test code = MAG) mg/dL 1.8-2.4 CBC W/O [id number] 04:26:00* Test Item Value Reference Range Interpretation Comments WHITE BLOOD CELL (test code = WBC) 4.1 K/mm3 4.5-12.5 L RED BLOOD CELL (test code = RBC) 2.78 mill/mm3 3.7-5.2 L HEMOGLOBIN (test code = HGB) 8.2 gram/dL 11.5-15.5 L HEMATOCRIT (test code = HCT) 25.6 % 36.0-46.0 L MEAN CELL VOLUME (test code = MCV) 92.1 fL 80-98 N MEAN CELL HGB (test code = MCH) 29.5 picogram 27.0-33.0 N MEAN CELL HGB CONCETRATION (test code = MCHC) 32.0 gram/dL 33.0-36. 0 L RED CELL DISTRIBUTION WIDTH (test code = RDW) 18.3 % 11.6-16. 2 H PLATELET COUNT (test code = PLT) 63 K/mm3 150-450 L MEAN PLATELET VOLUME (test code = MPV) 10.8 fL 6.7-11.0 N HGB [id number] 00:01:00* Test Item Value Reference Range Interpretation Comments HEMOGLOBIN (test code = HGB) 8.7 gram/dL 11.5-15.5 L HEMATOCRIT (test code = HCT) 26.8 % 36.0-46.0 L [id number] 20:25:00* Test Item Value Reference Range Interpretation Comments GLUBED (test code = GLUBED) 72 mg/dL 74-106 L Performed by certified threader operator at [facility] [id number] 16:18:00* Test Item Value Reference Range Interpretation Comments GLUBED (test code = GLUBED) 83 mg/dL 74-106 N Performed by certified threader operator at [facility] UR ELECTROPHORESIS BENCE [id number] 14:11:00* Test Item Value Reference Range Interpretation Comments IMMUNOFIXATION URINE (test code = IMMFIXU) SCREEN () An apparent normal immunofixation pattern. UR TOTAL PROTEIN (test code = PROTEU) 38.1 mg/dL Not Estab. UR [id number] (test code = A1GU) 4.5 % () UR [id number] (test code = A2GU) 12.5 % () UR BETA GLOBULIN (test code = BGU) 26.9 % () UR GAMMA GLOBULIN (test code = GGU) 24.6 % () MONOCLONAL SPIKE (test code = MONOSPIKE) Not Observed % Not Observe d UR ALBUMIN QUANT (test code = ALBU) 31.5 % () [id number] 12:21:00* Test Item Value Reference Range Interpretation Comments GLUBED (test code = GLUBED) 87 mg/dL 74-106 N Performed by certified threader operator at [facility] [id number] 08:16:00* Test Item Value Reference Range Interpretation Comments PREALBUMIN (test code = PREALB) 6.0 mg/dL 10-36 L Performed At: [facility] [id number] Josiah Woodard MD Ph:[phone] CBC W/AUTO [id number] 06:39:00* Test Item Value Reference Range Interpretation Comments WHITE BLOOD CELL (test code = WBC) 4.8 K/mm3 4.5-12.5 N RED BLOOD CELL (test code = RBC) 2.28 mill/mm3 3.7-5.2 L HEMOGLOBIN (test code = HGB) 6.9 gram/dL 11.5-15.5 L HEMATOCRIT (test code = HCT) 22.1 % 36.0-46.0 L MEAN CELL VOLUME (test code = MCV) 96.9 fL 80-98 N MEAN CELL HGB (test code = MCH) 30.3 picogram 27.0-33.0 N MEAN CELL HGB CONCETRATION (test code = MCHC) 31.2 gram/dL 33.0-36. 0 L RED CELL DISTRIBUTION WIDTH (test code = RDW) 18.5 % 11.6-16. 2 H RED CELL DISTRIBUTION WIDTH SD (test code = RDW-SD) 64.2 fL 37 .0-51.0 H PLATELET COUNT (test code = PLT) 82 K/mm3 150-450 L MEAN PLATELET VOLUME (test code = MPV) 11.5 fL 6.7-11.0 H NEUTROPHIL % (test code = NT%) 77.5 % 39.0-69.0 H IMMATURE GRANULOCYTE % (test code = IG%) 0.6 % 0.0-5.0 N LYMPHOCYTE % (test code = LY%) 11.4 % 25.0-55.0 L MONOCYTE % (test code = MO%) 9.3 % 0.0-10.0 N EOSINOPHIL % (test code = EO%) 1.2 % 0.0-5.0 N BASOPHIL % (test code = BA%) 0.0 % 0.0-1.0 N NUCLEATED RBC % (test code = NRBC%) 0.0 % 0-0 N NEUTROPHIL # (test code = NT#) 3.73 K/mm3 1.8-7.7 N IMMATURE GRANULOCYTE # (test code = IG#) 0.03 x10 3/uL 0-0.03 N LYMPHOCYTE # (test code = LY#) 0.55 K/mm3 1.0-5.0 L MONOCYTE # (test code = MO#) 0.45 K/mm3 0-0.8 N EOSINOPHIL # (test code = EO#) 0.06 K/mm3 0.0-0.5 N BASOPHIL # (test code = BA#) 0.00 K/mm3 0.0-0.2 N NUCLEATED RBC # (test code = NRBC#) 0.00 K/mm3 0.0-0.1 N MANUAL DIFF REQUIRED (test code = MDIFF) NO, ONLY SCAN NEEDED DIFFERENTIAL [id number] 06:39:00* Test Item Value Reference Range Interpretation Comments STAIN ACCEPTABILITY (test code = STN ACCEPTABLE) STAIN ACCEPTABLE HYPOCHROMIA (test code = HYPO) 1+ ANISOCYTOSIS (test code = ANISO) 1+ PLATELET ESTIMATE (test code = PLTEST) DECREASED PLATELET MORPHOLOGY (test code = PLTMORPH) NORMAL [id number] 06:32:00* Test Item Value Reference Range Interpretation Comments GLUBED (test code = GLUBED) 87 mg/dL 74-106 N Performed by certified threader operator at [facility] PROCALCITONIN (PCT)2019-03-15 05:30:00* Test Item Value Reference Range Interpretation Comments PROCALCITONIN (PCT) (test code = PROCAL) 0.13 ng/ml Concentration Interpretation (ng/mL) <0.51 Sepsis [...] into account the patients history. COMPREHENSIVE METABOLIC [id number] 04:51:00* Test Item Value Reference Range Interpretation Comments SODIUM (test code = NA) 141 mmol/L 136-145 N POTASSIUM (test code = K) 3.3 mmol/L 3.5-5.1 L CHLORIDE (test code = CL) 106.0 mmol/L 98-107 N CARBON DIOXIDE (test code = CO2) 32.0 mmol/L 21-32 N ANION GAP (test code = GAP) 6.3 10-20 L GLUCOSE (test code = GLU) 76 mg/dL 74-106 N BLOOD UREA NITROGEN (test code = BUN) 8 mg/dL 7-18 N GLOMERULAR FILTRATION RATE (test code = GFR) > 60 mL/min >=60 Estimated GFR by using Modified MDRD formula.Chronic kidney disease is defined as either kidney damageor GFR <60 mL/min/1.73 m2 for >3 months. CREATININE (test code = CREAT) 0.30 mg/dL 0.55-1.02 L Note change in reference range due to change in reagent. BUN/CREATININE RATIO (test code = BUN/CREA) 26.7 10-20 H TOTAL PROTEIN (test code = PROT) 4.0 gram/dL 6.4-8.2 L ALBUMIN (test code = ALB) 1.3 g/dL 3.4-5.0 L GLOBULIN (test code = GLOB) 2.7 gram/dL 2.7-4.2 N ALBUMIN/GLOBULIN RATIO (test code = A/G) 0.5 0.75-1.50 L CALCIUM (test code = CA) 7.8 mg/dL 8.5-10.1 L BILIRUBIN TOTAL (test code = BILT) 0.90 mg/dL 0.0-1.0 N SGOT/AST (test code = AST) 37 IUnit/L 15-37 N SGPT/ALT (test code = ALT) 34 IUnit/L 12-78 N ALKALINE PHOSPHATASE TOTAL (test code = ALKP) 73 IUnit/L 45-117 N Note change in reference range due to change in reagent. [id number] 04:51:00* Test Item Value Reference Range Interpretation Comments PHOSPHORUS (test code = PHOS) 1.8 mg/dL 2.5-4.9 L [id number] 04:51:00* Test Item Value Reference Range Interpretation Comments MAGNESIUM (test code = MAG) 1.8 mg/dL 1.8-2.4 N CBC W/AUTO [id number] 04:44:00* Test Item Value Reference Range Interpretation Comments WHITE BLOOD CELL (test code = WBC) 4.8 K/mm3 4.5-12.5 N RED BLOOD CELL (test code = RBC) 2.28 mill/mm3 3.7-5.2 L HEMOGLOBIN (test code = HGB) 6.9 gram/dL 11.5-15.5 L HEMATOCRIT (test code = HCT) 22.1 % 36.0-46.0 L MEAN CELL VOLUME (test code = MCV) 96.9 fL 80-98 N MEAN CELL HGB (test code = MCH) 30.3 picogram 27.0-33.0 N MEAN CELL HGB CONCETRATION (test code = MCHC) 31.2 gram/dL 33.0-36. 0 L RED CELL DISTRIBUTION WIDTH (test code = RDW) 18.5 % 11.6-16. 2 H RED CELL DISTRIBUTION WIDTH SD (test code = RDW-SD) 64.2 fL 37 .0-51.0 H PLATELET COUNT (test code = PLT) 82 K/mm3 150-450 L MEAN PLATELET VOLUME (test code = MPV) 11.5 fL 6.7-11.0 H NEUTROPHIL % (test code = NT%) 77.5 % 39.0-69.0 H IMMATURE GRANULOCYTE % (test code = IG%) 0.6 % 0.0-5.0 N LYMPHOCYTE % (test code = LY%) 11.4 % 25.0-55.0 L MONOCYTE % (test code = MO%) 9.3 % 0.0-10.0 N EOSINOPHIL % (test code = EO%) 1.2 % 0.0-5.0 N BASOPHIL % (test code = BA%) 0.0 % 0.0-1.0 N NUCLEATED RBC % (test code = NRBC%) 0.0 % 0-0 N NEUTROPHIL # (test code = NT#) 3.73 K/mm3 1.8-7.7 N IMMATURE GRANULOCYTE # (test code = IG#) 0.03 x10 3/uL 0-0.03 N LYMPHOCYTE # (test code = LY#) 0.55 K/mm3 1.0-5.0 L MONOCYTE # (test code = MO#) 0.45 K/mm3 0-0.8 N EOSINOPHIL # (test code = EO#) 0.06 K/mm3 0.0-0.5 N BASOPHIL # (test code = BA#) 0.00 K/mm3 0.0-0.2 N NUCLEATED RBC # (test code = NRBC#) 0.00 K/mm3 0.0-0.1 N MANUAL DIFF REQUIRED (test code = MDIFF) NO, ONLY SCAN NEEDED DIFFERENTIAL [id number] 04:44:00* Test Item Value Reference Range Interpretation Comments STAIN ACCEPTABILITY (test code = STN ACCEPTABLE) CABOT RINGS (test code = CAB) MORPHOLOGY COMMENT (test code = MOC) PLATELET ESTIMATE (test code = PLTEST) PLATELET MORPHOLOGY (test code = PLTMORPH) CBC W/AUTO [id number] 04:44:00* Test Item Value Reference Range Interpretation Comments WHITE BLOOD CELL (test code = WBC) 4.8 K/mm3 4.5-12.5 N RED BLOOD CELL (test code = RBC) 2.28 mill/mm3 3.7-5.2 L HEMOGLOBIN (test code = HGB) 6.9 gram/dL 11.5-15.5 L HEMATOCRIT (test code = HCT) 22.1 % 36.0-46.0 L MEAN CELL VOLUME (test code = MCV) 96.9 fL 80-98 N MEAN CELL HGB (test code = MCH) 30.3 picogram 27.0-33.0 N MEAN CELL HGB CONCETRATION (test code = MCHC) 31.2 gram/dL 33.0-36. 0 L RED CELL DISTRIBUTION WIDTH (test code = RDW) 18.5 % 11.6-16. 2 H RED CELL DISTRIBUTION WIDTH SD (test code = RDW-SD) 64.2 fL 37 .0-51.0 H PLATELET COUNT (test code = PLT) 82 K/mm3 150-450 L MEAN PLATELET VOLUME (test code = MPV) 11.5 fL 6.7-11.0 H NEUTROPHIL % (test code = NT%) 77.5 % 39.0-69.0 H IMMATURE GRANULOCYTE % (test code = IG%) 0.6 % 0.0-5.0 N LYMPHOCYTE % (test code = LY%) 11.4 % 25.0-55.0 L MONOCYTE % (test code = MO%) 9.3 % 0.0-10.0 N EOSINOPHIL % (test code = EO%) 1.2 % 0.0-5.0 N BASOPHIL % (test code = BA%) 0.0 % 0.0-1.0 N NUCLEATED RBC % (test code = NRBC%) 0.0 % 0-0 N NEUTROPHIL # (test code = NT#) 3.73 K/mm3 1.8-7.7 N IMMATURE GRANULOCYTE # (test code = IG#) 0.03 x10 3/uL 0-0.03 N LYMPHOCYTE # (test code = LY#) 0.55 K/mm3 1.0-5.0 L MONOCYTE # (test code = MO#) 0.45 K/mm3 0-0.8 N EOSINOPHIL # (test code = EO#) 0.06 K/mm3 0.0-0.5 N BASOPHIL # (test code = BA#) 0.00 K/mm3 0.0-0.2 N NUCLEATED RBC # (test code = NRBC#) 0.00 K/mm3 0.0-0.1 N MANUAL DIFF REQUIRED (test code = MDIFF) NO, ONLY SCAN NEEDED DIFFERENTIAL [id number] 04:44:00* Test Item Value Reference Range Interpretation Comments STAIN ACCEPTABILITY (test code = STN ACCEPTABLE) CABOT RINGS (test code = CAB) MORPHOLOGY COMMENT (test code = MOC) PLATELET ESTIMATE (test code = PLTEST) PLATELET MORPHOLOGY (test code = PLTMORPH) CBC W/AUTO [id number] 04:44:00* Test Item Value Reference Range Interpretation Comments WHITE BLOOD CELL (test code = WBC) 4.8 K/mm3 4.5-12.5 N RED BLOOD CELL (test code = RBC) 2.28 mill/mm3 3.7-5.2 L HEMOGLOBIN (test code = HGB) 6.9 gram/dL 11.5-15.5 L HEMATOCRIT (test code = HCT) 22.1 % 36.0-46.0 L MEAN CELL VOLUME (test code = MCV) 96.9 fL 80-98 N MEAN CELL HGB (test code = MCH) 30.3 picogram 27.0-33.0 N MEAN CELL HGB CONCETRATION (test code = MCHC) 31.2 gram/dL 33.0-36. 0 L RED CELL DISTRIBUTION WIDTH (test code = RDW) 18.5 % 11.6-16. 2 H RED CELL DISTRIBUTION WIDTH SD (test code = RDW-SD) 64.2 fL 37 .0-51.0 H PLATELET COUNT (test code = PLT) 82 K/mm3 150-450 L MEAN PLATELET VOLUME (test code = MPV) 11.5 fL 6.7-11.0 H NEUTROPHIL % (test code = NT%) 77.5 % 39.0-69.0 H IMMATURE GRANULOCYTE % (test code = IG%) 0.6 % 0.0-5.0 N LYMPHOCYTE % (test code = LY%) 11.4 % 25.0-55.0 L MONOCYTE % (test code = MO%) 9.3 % 0.0-10.0 N EOSINOPHIL % (test code = EO%) 1.2 % 0.0-5.0 N BASOPHIL % (test code = BA%) 0.0 % 0.0-1.0 N NUCLEATED RBC % (test code = NRBC%) 0.0 % 0-0 N NEUTROPHIL # (test code = NT#) 3.73 K/mm3 1.8-7.7 N IMMATURE GRANULOCYTE # (test code = IG#) 0.03 x10 3/uL 0-0.03 N LYMPHOCYTE # (test code = LY#) 0.55 K/mm3 1.0-5.0 L MONOCYTE # (test code = MO#) 0.45 K/mm3 0-0.8 N EOSINOPHIL # (test code = EO#) 0.06 K/mm3 0.0-0.5 N BASOPHIL # (test code = BA#) 0.00 K/mm3 0.0-0.2 N NUCLEATED RBC # (test code = NRBC#) 0.00 K/mm3 0.0-0.1 N MANUAL DIFF REQUIRED (test code = MDIFF) NO, ONLY SCAN NEEDED DIFFERENTIAL [id number] 04:44:00* Test Item Value Reference Range Interpretation Comments STAIN ACCEPTABILITY (test code = STN ACCEPTABLE) MORPHOLOGY COMMENT (test code = MOC) PLATELET ESTIMATE (test code = PLTEST) PLATELET MORPHOLOGY (test code = PLTMORPH) CBC W/AUTO [id number] 04:44:00* Test Item Value Reference Range Interpretation Comments WHITE BLOOD CELL (test code = WBC) 4.8 K/mm3 4.5-12.5 N RED BLOOD CELL (test code = RBC) 2.28 mill/mm3 3.7-5.2 L HEMOGLOBIN (test code = HGB) 6.9 gram/dL 11.5-15.5 L HEMATOCRIT (test code = HCT) 22.1 % 36.0-46.0 L MEAN CELL VOLUME (test code = MCV) 96.9 fL 80-98 N MEAN CELL HGB (test code = MCH) 30.3 picogram 27.0-33.0 N MEAN CELL HGB CONCETRATION (test code = MCHC) 31.2 gram/dL 33.0-36. 0 L RED CELL DISTRIBUTION WIDTH (test code = RDW) 18.5 % 11.6-16. 2 H RED CELL DISTRIBUTION WIDTH SD (test code = RDW-SD) 64.2 fL 37 .0-51.0 H PLATELET COUNT (test code = PLT) 82 K/mm3 150-450 L MEAN PLATELET VOLUME (test code = MPV) 11.5 fL 6.7-11.0 H NEUTROPHIL % (test code = NT%) 77.5 % 39.0-69.0 H IMMATURE GRANULOCYTE % (test code = IG%) 0.6 % 0.0-5.0 N LYMPHOCYTE % (test code = LY%) 11.4 % 25.0-55.0 L MONOCYTE % (test code = MO%) 9.3 % 0.0-10.0 N EOSINOPHIL % (test code = EO%) 1.2 % 0.0-5.0 N BASOPHIL % (test code = BA%) 0.0 % 0.0-1.0 N NUCLEATED RBC % (test code = NRBC%) 0.0 % 0-0 N NEUTROPHIL # (test code = NT#) 3.73 K/mm3 1.8-7.7 N IMMATURE GRANULOCYTE # (test code = IG#) 0.03 x10 3/uL 0-0.03 N LYMPHOCYTE # (test code = LY#) 0.55 K/mm3 1.0-5.0 L MONOCYTE # (test code = MO#) 0.45 K/mm3 0-0.8 N EOSINOPHIL # (test code = EO#) 0.06 K/mm3 0.0-0.5 N BASOPHIL # (test code = BA#) 0.00 K/mm3 0.0-0.2 N NUCLEATED RBC # (test code = NRBC#) 0.00 K/mm3 0.0-0.1 N MANUAL DIFF REQUIRED (test code = MDIFF) NO, ONLY SCAN NEEDED DIFFERENTIAL [id number] 04:44:00* Test Item Value Reference Range Interpretation Comments STAIN ACCEPTABILITY (test code = STN ACCEPTABLE) CABOT RINGS (test code = CAB) MORPHOLOGY COMMENT (test code = MOC) PLATELET ESTIMATE (test code = PLTEST) PLATELET MORPHOLOGY (test code = PLTMORPH) COMPREHENSIVE METABOLIC [id number] 04:41:00* Test Item Value Reference Range Interpretation Comments SODIUM (test code = NA) 141 mmol/L 136-145 N POTASSIUM (test code = K) 3.3 mmol/L 3.5-5.1 L CHLORIDE (test code = CL) 106.0 mmol/L 98-107 N CARBON DIOXIDE (test code = CO2) mmol/L 21-32 ANION GAP (test code = GAP) 10-20 GLUCOSE (test code = GLU) mg/dL 74-106 BLOOD UREA NITROGEN (test code = BUN) mg/dL 7-18 GLOMERULAR FILTRATION RATE (test code = GFR) mL/min >=60 CREATININE (test code = CREAT) mg/dL 0.55-1.02 BUN/CREATININE RATIO (test code = BUN/CREA) 10-20 TOTAL PROTEIN (test code = PROT) gram/dL 6.4-8.2 ALBUMIN (test code = ALB) g/dL 3.4-5.0 GLOBULIN (test code = GLOB) gram/dL 2.7-4.2 ALBUMIN/GLOBULIN RATIO (test code = A/G) 0.75-1.50 CALCIUM (test code = CA) mg/dL 8.5-10.1 BILIRUBIN TOTAL (test code = BILT) mg/dL 0.0-1.0 SGOT/AST (test code = AST) IUnit/L 15-37 SGPT/ALT (test code = ALT) IUnit/L 12-78 ALKALINE PHOSPHATASE TOTAL (test code = ALKP) IUnit/L 45-117 [id number] 04:41:00* Test Item Value Reference Range Interpretation Comments PHOSPHORUS (test code = PHOS) mg/dL 2.5-4.9 [id number] 04:41:00* Test Item Value Reference Range Interpretation Comments MAGNESIUM (test code = MAG) mg/dL 1.8-2.4 [id number] 20:40:00* Test Item Value Reference Range Interpretation Comments GLUBED (test code = GLUBED) 84 mg/dL 74-106 N Performed by certified threader operator at [facility] CBC W/AUTO [id number] 12:46:00* Test Item Value Reference Range Interpretation Comments WHITE BLOOD CELL (test code = WBC) 5.3 K/mm3 4.5-12.5 N RED BLOOD CELL (test code = RBC) 2.49 mill/mm3 3.7-5.2 L HEMOGLOBIN (test code = HGB) 7.7 gram/dL 11.5-15.5 L HEMATOCRIT (test code = HCT) 24.3 % 36.0-46.0 L MEAN CELL VOLUME (test code = MCV) 97.6 fL 80-98 N MEAN CELL HGB (test code = MCH) 30.9 picogram 27.0-33.0 N MEAN CELL HGB CONCETRATION (test code = MCHC) 31.7 gram/dL 33.0-36. 0 L RED CELL DISTRIBUTION WIDTH (test code = RDW) 18.6 % 11.6-16. 2 H RED CELL DISTRIBUTION WIDTH SD (test code = RDW-SD) 66.0 fL 37 .0-51.0 H PLATELET COUNT (test code = PLT) 78 K/mm3 150-450 L MEAN PLATELET VOLUME (test code = MPV) 11.1 fL 6.7-11.0 H NEUTROPHIL % (test code = NT%) 82.6 % 39.0-69.0 H IMMATURE GRANULOCYTE % (test code = IG%) 0.4 % 0.0-5.0 N LYMPHOCYTE % (test code = LY%) 7.0 % 25.0-55.0 L MONOCYTE % (test code = MO%) 9.2 % 0.0-10.0 N EOSINOPHIL % (test code = EO%) 0.8 % 0.0-5.0 N BASOPHIL % (test code = BA%) 0.0 % 0.0-1.0 N NUCLEATED RBC % (test code = NRBC%) 0.0 % 0-0 N NEUTROPHIL # (test code = NT#) 4.40 K/mm3 1.8-7.7 N IMMATURE GRANULOCYTE # (test code = IG#) 0.02 x10 3/uL 0-0.03 N LYMPHOCYTE # (test code = LY#) 0.37 K/mm3 1.0-5.0 L MONOCYTE # (test code = MO#) 0.49 K/mm3 0-0.8 N EOSINOPHIL # (test code = EO#) 0.04 K/mm3 0.0-0.5 N BASOPHIL # (test code = BA#) 0.00 K/mm3 0.0-0.2 N NUCLEATED RBC # (test code = NRBC#) 0.00 K/mm3 0.0-0.1 N MANUAL DIFF REQUIRED (test code = MDIFF) NO, ONLY SCAN NEEDED PT HARD STICK @[employer].LAB.3 03/14/19 0943PT HARD STICK PER [employer] @[facility] 02/15 0836DIFFERENTIAL [id number] 12:46:00* Test Item Value Reference Range Interpretation Comments STAIN ACCEPTABILITY (test code = STN ACCEPTABLE) STAIN ACCEPTABLE PLATELET ESTIMATE (test code = PLTEST) DECREASED PLATELET MORPHOLOGY (test code = PLTMORPH) NORMAL PT HARD STICK @V.LAB.3 03/14/19 0943PT HARD STICK PER VERO B @[employer].[facility] 02/15 0836CBC W/AUTO [id number] 12:09:00* Test Item Value Reference Range Interpretation Comments WHITE BLOOD CELL (test code = WBC) 5.3 K/mm3 4.5-12.5 N RED BLOOD CELL (test code = RBC) 2.49 mill/mm3 3.7-5.2 L HEMOGLOBIN (test code = HGB) 7.7 gram/dL 11.5-15.5 L HEMATOCRIT (test code = HCT) 24.3 % 36.0-46.0 L MEAN CELL VOLUME (test code = MCV) 97.6 fL 80-98 N MEAN CELL HGB (test code = MCH) 30.9 picogram 27.0-33.0 N MEAN CELL HGB CONCETRATION (test code = MCHC) 31.7 gram/dL 33.0-36. 0 L RED CELL DISTRIBUTION WIDTH (test code = RDW) 18.6 % 11.6-16. 2 H RED CELL DISTRIBUTION WIDTH SD (test code = RDW-SD) 66.0 fL 37 .0-51.0 H PLATELET COUNT (test code = PLT) 78 K/mm3 150-450 L MEAN PLATELET VOLUME (test code = MPV) 11.1 fL 6.7-11.0 H NEUTROPHIL % (test code = NT%) 82.6 % 39.0-69.0 H IMMATURE GRANULOCYTE % (test code = IG%) 0.4 % 0.0-5.0 N LYMPHOCYTE % (test code = LY%) 7.0 % 25.0-55.0 L MONOCYTE % (test code = MO%) 9.2 % 0.0-10.0 N EOSINOPHIL % (test code = EO%) 0.8 % 0.0-5.0 N BASOPHIL % (test code = BA%) 0.0 % 0.0-1.0 N NUCLEATED RBC % (test code = NRBC%) 0.0 % 0-0 N NEUTROPHIL # (test code = NT#) 4.40 K/mm3 1.8-7.7 N IMMATURE GRANULOCYTE # (test code = IG#) 0.02 x10 3/uL 0-0.03 N LYMPHOCYTE # (test code = LY#) 0.37 K/mm3 1.0-5.0 L MONOCYTE # (test code = MO#) 0.49 K/mm3 0-0.8 N EOSINOPHIL # (test code = EO#) 0.04 K/mm3 0.0-0.5 N BASOPHIL # (test code = BA#) 0.00 K/mm3 0.0-0.2 N NUCLEATED RBC # (test code = NRBC#) 0.00 K/mm3 0.0-0.1 N MANUAL DIFF REQUIRED (test code = MDIFF) NO, ONLY SCAN NEEDED PT HARD STICK @[employer].SP3 03/14/19 0943PT HARD STICK PER [employer] @[employer].3 02/15 0836DIFFERENTIAL [id number] 12:09:00* Test Item Value Reference Range Interpretation Comments STAIN ACCEPTABILITY (test code = STN ACCEPTABLE) CABOT RINGS (test code = CAB) MORPHOLOGY COMMENT (test code = MOC) PLATELET ESTIMATE (test code = PLTEST) PLATELET MORPHOLOGY (test code = PLTMORPH) PT HARD STICK @[employer].SP3 03/14/19 0943PT HARD STICK PER VREO B @[employer].3 02/15 0836CBC W/AUTO [id number] 12:09:00* Test Item Value Reference Range Interpretation Comments WHITE BLOOD CELL (test code = WBC) 5.3 K/mm3 4.5-12.5 N RED BLOOD CELL (test code = RBC) 2.49 mill/mm3 3.7-5.2 L HEMOGLOBIN (test code = HGB) 7.7 gram/dL 11.5-15.5 L HEMATOCRIT (test code = HCT) 24.3 % 36.0-46.0 L MEAN CELL VOLUME (test code = MCV) 97.6 fL 80-98 N MEAN CELL HGB (test code = MCH) 30.9 picogram 27.0-33.0 N MEAN CELL HGB CONCETRATION (test code = MCHC) 31.7 gram/dL 33.0-36. 0 L RED CELL DISTRIBUTION WIDTH (test code = RDW) 18.6 % 11.6-16. 2 H RED CELL DISTRIBUTION WIDTH SD (test code = RDW-SD) 66.0 fL 37 .0-51.0 H PLATELET COUNT (test code = PLT) 78 K/mm3 150-450 L MEAN PLATELET VOLUME (test code = MPV) 11.1 fL 6.7-11.0 H NEUTROPHIL % (test code = NT%) 82.6 % 39.0-69.0 H IMMATURE GRANULOCYTE % (test code = IG%) 0.4 % 0.0-5.0 N LYMPHOCYTE % (test code = LY%) 7.0 % 25.0-55.0 L MONOCYTE % (test code = MO%) 9.2 % 0.0-10.0 N EOSINOPHIL % (test code = EO%) 0.8 % 0.0-5.0 N BASOPHIL % (test code = BA%) 0.0 % 0.0-1.0 N NUCLEATED RBC % (test code = NRBC%) 0.0 % 0-0 N NEUTROPHIL # (test code = NT#) 4.40 K/mm3 1.8-7.7 N IMMATURE GRANULOCYTE # (test code = IG#) 0.02 x10 3/uL 0-0.03 N LYMPHOCYTE # (test code = LY#) 0.37 K/mm3 1.0-5.0 L MONOCYTE # (test code = MO#) 0.49 K/mm3 0-0.8 N EOSINOPHIL # (test code = EO#) 0.04 K/mm3 0.0-0.5 N BASOPHIL # (test code = BA#) 0.00 K/mm3 0.0-0.2 N NUCLEATED RBC # (test code = NRBC#) 0.00 K/mm3 0.0-0.1 N MANUAL DIFF REQUIRED (test code = MDIFF) NO, ONLY SCAN NEEDED PT HARD STICK @[employer].LAB.3 03/14/19 0943PT HARD STICK PER VERO B @[facility]OM[facility]msLAB.3 02/15 0836DIFFERENTIAL [id number] 12:09:00* Test Item Value Reference Range Interpretation Comments STAIN ACCEPTABILITY (test code = STN ACCEPTABLE) CABOT RINGS (test code = CAB) MORPHOLOGY COMMENT (test code = MOC) PLATELET ESTIMATE (test code = PLTEST) PLATELET MORPHOLOGY (test code = PLTMORPH) PT HARD STICK @[employer].LAB.SP3 03/14/19 0943PT HARD STICK PER VERO B @[facility]OCOMtmsLAB.3 02/15 0836CBC W/AUTO [id number] 12:09:00* Test Item Value Reference Range Interpretation Comments WHITE BLOOD CELL (test code = WBC) 5.3 K/mm3 4.5-12.5 N RED BLOOD CELL (test code = RBC) 2.49 mill/mm3 3.7-5.2 L HEMOGLOBIN (test code = HGB) 7.7 gram/dL 11.5-15.5 L HEMATOCRIT (test code = HCT) 24.3 % 36.0-46.0 L MEAN CELL VOLUME (test code = MCV) 97.6 fL 80-98 N MEAN CELL HGB (test code = MCH) 30.9 picogram 27.0-33.0 N MEAN CELL HGB CONCETRATION (test code = MCHC) 31.7 gram/dL 33.0-36. 0 L RED CELL DISTRIBUTION WIDTH (test code = RDW) 18.6 % 11.6-16. 2 H RED CELL DISTRIBUTION WIDTH SD (test code = RDW-SD) 66.0 fL 37 .0-51.0 H PLATELET COUNT (test code = PLT) 78 K/mm3 150-450 L MEAN PLATELET VOLUME (test code = MPV) 11.1 fL 6.7-11.0 H NEUTROPHIL % (test code = NT%) 82.6 % 39.0-69.0 H IMMATURE GRANULOCYTE % (test code = IG%) 0.4 % 0.0-5.0 N LYMPHOCYTE % (test code = LY%) 7.0 % 25.0-55.0 L MONOCYTE % (test code = MO%) 9.2 % 0.0-10.0 N EOSINOPHIL % (test code = EO%) 0.8 % 0.0-5.0 N BASOPHIL % (test code = BA%) 0.0 % 0.0-1.0 N NUCLEATED RBC % (test code = NRBC%) 0.0 % 0-0 N NEUTROPHIL # (test code = NT#) 4.40 K/mm3 1.8-7.7 N IMMATURE GRANULOCYTE # (test code = IG#) 0.02 x10 3/uL 0-0.03 N LYMPHOCYTE # (test code = LY#) 0.37 K/mm3 1.0-5.0 L MONOCYTE # (test code = MO#) 0.49 K/mm3 0-0.8 N EOSINOPHIL # (test code = EO#) 0.04 K/mm3 0.0-0.5 N BASOPHIL # (test code = BA#) 0.00 K/mm3 0.0-0.2 N NUCLEATED RBC # (test code = NRBC#) 0.00 K/mm3 0.0-0.1 N MANUAL DIFF REQUIRED (test code = MDIFF) NO, ONLY SCAN NEEDED PT HARD STICK @[employer].3 03/14/19 0943PT HARD STICK PER VERO B @[employer].3 02/15 0836DIFFERENTIAL [id number] 12:09:00* Test Item Value Reference Range Interpretation Comments STAIN ACCEPTABILITY (test code = STN ACCEPTABLE) MORPHOLOGY COMMENT (test code = MOC) PLATELET ESTIMATE (test code = PLTEST) PLATELET MORPHOLOGY (test code = PLTMORPH) PT HARD STICK @[employer].LAB.3 03/14/19 0943PT HARD STICK PER VERO B @[employer].3 02/15 0836CBC W/AUTO [id number] 12:09:00* Test Item Value Reference Range Interpretation Comments WHITE BLOOD CELL (test code = WBC) 5.3 K/mm3 4.5-12.5 N RED BLOOD CELL (test code = RBC) 2.49 mill/mm3 3.7-5.2 L HEMOGLOBIN (test code = HGB) 7.7 gram/dL 11.5-15.5 L HEMATOCRIT (test code = HCT) 24.3 % 36.0-46.0 L MEAN CELL VOLUME (test code = MCV) 97.6 fL 80-98 N MEAN CELL HGB (test code = MCH) 30.9 picogram 27.0-33.0 N MEAN CELL HGB CONCETRATION (test code = MCHC) 31.7 gram/dL 33.0-36. 0 L RED CELL DISTRIBUTION WIDTH (test code = RDW) 18.6 % 11.6-16. 2 H RED CELL DISTRIBUTION WIDTH SD (test code = RDW-SD) 66.0 fL 37 .0-51.0 H PLATELET COUNT (test code = PLT) 78 K/mm3 150-450 L MEAN PLATELET VOLUME (test code = MPV) 11.1 fL 6.7-11.0 H NEUTROPHIL % (test code = NT%) 82.6 % 39.0-69.0 H IMMATURE GRANULOCYTE % (test code = IG%) 0.4 % 0.0-5.0 N LYMPHOCYTE % (test code = LY%) 7.0 % 25.0-55.0 L MONOCYTE % (test code = MO%) 9.2 % 0.0-10.0 N EOSINOPHIL % (test code = EO%) 0.8 % 0.0-5.0 N BASOPHIL % (test code = BA%) 0.0 % 0.0-1.0 N NUCLEATED RBC % (test code = NRBC%) 0.0 % 0-0 N NEUTROPHIL # (test code = NT#) 4.40 K/mm3 1.8-7.7 N IMMATURE GRANULOCYTE # (test code = IG#) 0.02 x10 3/uL 0-0.03 N LYMPHOCYTE # (test code = LY#) 0.37 K/mm3 1.0-5.0 L MONOCYTE # (test code = MO#) 0.49 K/mm3 0-0.8 N EOSINOPHIL # (test code = EO#) 0.04 K/mm3 0.0-0.5 N BASOPHIL # (test code = BA#) 0.00 K/mm3 0.0-0.2 N NUCLEATED RBC # (test code = NRBC#) 0.00 K/mm3 0.0-0.1 N MANUAL DIFF REQUIRED (test code = MDIFF) NO, ONLY SCAN NEEDED PT HARD STICK @[facility].SP3 03/14/19 0943PT HARD STICK PER VERO Pollard @[employer].LAB.SP3 02/15 0836DIFFERENTIAL [id number] 12:09:00* Test Item Value Reference Range Interpretation Comments STAIN ACCEPTABILITY (test code = STN ACCEPTABLE) CABOT RINGS (test code = CAB) MORPHOLOGY COMMENT (test code = MOC) PLATELET ESTIMATE (test code = PLTEST) PLATELET MORPHOLOGY (test code = PLTMORPH) PT HARD STICK @[employer].LAB.3 03/14/19 0943PT HARD STICK PER VERO B @[employer].LAB.3 02/15 0836BASIC METABOLIC [id number] 05:31:00* Test Item Value Reference Range Interpretation Comments SODIUM (test code = NA) 141 mmol/L 136-145 N POTASSIUM (test code = K) 3.1 mmol/L 3.5-5.1 L CHLORIDE (test code = CL) 105.0 mmol/L 98-107 N CARBON DIOXIDE (test code = CO2) 28.0 mmol/L 21-32 N ANION GAP (test code = GAP) 11.1 10-20 N GLUCOSE (test code = GLU) 88 mg/dL 74-106 N BLOOD UREA NITROGEN (test code = BUN) 9 mg/dL 7-18 N GLOMERULAR FILTRATION RATE (test code = GFR) > 60 mL/min >=60 Estimated GFR by using Modified MDRD formula.Chronic kidney disease is defined as either kidney damageor GFR <60 mL/min/1.73 m2 for >3 months. CREATININE (test code = CREAT) 0.30 mg/dL 0.55-1.02 L Note change in reference range due to change in reagent. BUN/CREATININE RATIO (test code = BUN/CREA) 30.0 10-20 H CALCIUM (test code = CA) 7.5 mg/dL 8.5-10.1 L [id number] 05:31:00* Test Item Value Reference Range Interpretation Comments PHOSPHORUS (test code = PHOS) 2.7 mg/dL 2.5-4.9 N [id number] 05:31:00* Test Item Value Reference Range Interpretation Comments MAGNESIUM (test code = MAG) 1.7 mg/dL 1.8-2.4 L CALCIUM [id number] 05:31:00* Test Item Value Reference Range Interpretation Comments CALCIUM IONIZED (test code = CONNIE) 1.11 mmol/L 1.12-1.32 L BASIC METABOLIC [id number] 05:30:00* Test Item Value Reference Range Interpretation Comments SODIUM (test code = NA) 141 mmol/L 136-145 N POTASSIUM (test code = K) 3.1 mmol/L 3.5-5.1 L CHLORIDE (test code = CL) 105.0 mmol/L 98-107 N CARBON DIOXIDE (test code = CO2) 28.0 mmol/L 21-32 N ANION GAP (test code = GAP) 11.1 10-20 N GLUCOSE (test code = GLU) 88 mg/dL 74-106 N BLOOD UREA NITROGEN (test code = BUN) 9 mg/dL 7-18 N GLOMERULAR FILTRATION RATE (test code = GFR) > 60 mL/min >=60 Estimated GFR by using Modified MDRD formula.Chronic kidney disease is defined as either kidney damageor GFR <60 mL/min/1.73 m2 for >3 months. CREATININE (test code = CREAT) 0.30 mg/dL 0.55-1.02 L Note change in reference range due to change in reagent. BUN/CREATININE RATIO (test code = BUN/CREA) 30.0 10-20 H CALCIUM (test code = CA) 7.5 mg/dL 8.5-10.1 L [id number] 05:30:00* Test Item Value Reference Range Interpretation Comments PHOSPHORUS (test code = PHOS) 2.7 mg/dL 2.5-4.9 N [id number] 05:30:00* Test Item Value Reference Range Interpretation Comments MAGNESIUM (test code = MAG) 1.7 mg/dL 1.8-2.4 L CALCIUM [id number] 05:30:00* Test Item Value Reference Range Interpretation Comments CALCIUM IONIZED (test code = CONNIE) mmol/L 1.12-1.32 [id number] 21:00:00* Test Item Value Reference Range Interpretation Comments GLUBED (test code = GLUBED) 75 mg/dL 74-106 N Performed by certified threader operator at [facility] [id number] 17:31:00* Test Item Value Reference Range Interpretation Comments GLUBED (test code = GLUBED) 83 mg/dL 74-106 N Performed by certified threader operator at [facility] PROTEIN ELECTROPHORESIS [id number] 17:08:00* Test Item Value Reference Range Interpretation Comments TOTAL PROTEIN (test code = PROTE) 3.9 g/dL 6.0-8.5 A ALBUMIN (test code = ALBE) 1.6 g/dL 2.9-4.4 A [id number] (test code = A1G) 0.2 g/dL 0.0-0.4 [id number] (test code = A2G) 0.3 g/dL 0.4-1.0 A BETA GLOBULIN (test code = BG) 0.6 g/dL 0.7-1.3 A GAMMA GLOBULIN (test code = GG) 1.2 g/dL 0.4-1.8 M-SPIKE,SERUM (test code = MSPIKES) Not Observed g/dL Not Observed GLOBULIN ELECT (test code = GLOBE) 2.3 g/dL 2.2-3.9 INTERPRETATION (test code = ELEINT) () The SPE pattern reflects non- selective protein loss.Protein losing syndromes, in which this pattern has beenobserved include: malnutrition, exudative dermatopathies,jane, exudative pulmonary disease, essentialhypoproteinemia, protein losing gastroentero- pathies, bloodloss, and plasmaphoresis. Monoclonal protein is notapparent.Performed At: [facility] [address] [id number] Josiah Woodard MD Ph:[phone] At: [facility] [address] [place], [place] [id number] CN MD Ph:[phone] CBC W/AUTO [id number] 16:05:00* Test Item Value Reference Range Interpretation Comments WHITE BLOOD CELL (test code = WBC) 6.0 K/mm3 4.5-12.5 N RED BLOOD CELL (test code = RBC) 2.88 mill/mm3 3.7-5.2 L HEMOGLOBIN (test code = HGB) 9.0 gram/dL 11.5-15.5 L HEMATOCRIT (test code = HCT) 28.3 % 36.0-46.0 L MEAN CELL VOLUME (test code = MCV) 98.3 fL 80-98 H MEAN CELL HGB (test code = MCH) 31.3 picogram 27.0-33.0 N MEAN CELL HGB CONCETRATION (test code = MCHC) 31.8 gram/dL 33.0-36. 0 L RED CELL DISTRIBUTION WIDTH (test code = RDW) 19.3 % 11.6-16. 2 H RED CELL DISTRIBUTION WIDTH SD (test code = RDW-SD) 69.0 fL 37 .0-51.0 H PLATELET COUNT (test code = PLT) 94 K/mm3 150-450 L MEAN PLATELET VOLUME (test code = MPV) 11.2 fL 6.7-11.0 H NEUTROPHIL % (test code = NT%) 86.3 % 39.0-69.0 H IMMATURE GRANULOCYTE % (test code = IG%) 0.3 % 0.0-5.0 N LYMPHOCYTE % (test code = LY%) 7.6 % 25.0-55.0 L MONOCYTE % (test code = MO%) 5.1 % 0.0-10.0 N EOSINOPHIL % (test code = EO%) 0.5 % 0.0-5.0 N BASOPHIL % (test code = BA%) 0.2 % 0.0-1.0 N NUCLEATED RBC % (test code = NRBC%) 0.3 % 0-0 H NEUTROPHIL # (test code = NT#) 5.20 K/mm3 1.8-7.7 N IMMATURE GRANULOCYTE # (test code = IG#) 0.02 x10 3/uL 0-0.03 N LYMPHOCYTE # (test code = LY#) 0.46 K/mm3 1.0-5.0 L MONOCYTE # (test code = MO#) 0.31 K/mm3 0-0.8 N EOSINOPHIL # (test code = EO#) 0.03 K/mm3 0.0-0.5 N BASOPHIL # (test code = BA#) 0.01 K/mm3 0.0-0.2 N NUCLEATED RBC # (test code = NRBC#) 0.02 K/mm3 0.0-0.1 N PT HARD STICK NOTIFIED BRUNILDA QUEZADA @V.LAB.SP3 03/13/[id number] 12:07:00* Test Item Value Reference Range Interpretation Comments GLUBED (test code = GLUBED) 106 mg/dL 74-106 N Performed by certified threader operator at [facility] ANTINUCLEAR ANTIBODIES [id number] 11:14:00* Test Item Value Reference Range Interpretation Comments GISELLE SCREEN (test code = ANASCR) Negative Negative Performed At: [facility] [id number] Woodard MD Ph:[phone] ACUTE HEPATITIS [id number] 11:14:00* Test Item Value Reference Range Interpretation Comments AB HEPATITIS A IGM (test code = HAVMAB) Negative Negative AG HEPAT B SURF (test code = HBSAG) Negative Negative HEPATITIS B CORE ANTIBODY,IGM (test code = HBCMAB) Negative Neg ative AB HEPATITIS C (test code = HCVAB) <0.1 0.0-0.9 INFCE Result Units: s/co ratio Negative: < 0.8 Indeterminate: 0.8 - 0.9 Positive: > 0.9 The CDC recommends that a positive HCV antibody result be followed up with a HCV Nucleic Acid Amplification test (006604).Performed At: [facility] [id number] Woodard MD Ph:[phone] BASIC METABOLIC [id number] 11:10:00* Test Item Value Reference Range Interpretation Comments SODIUM (test code = NA) 139 mmol/L 136-145 N POTASSIUM (test code = K) 3.8 mmol/L 3.5-5.1 N CHLORIDE (test code = CL) 104.0 mmol/L 98-107 N CARBON DIOXIDE (test code = CO2) 28.0 mmol/L 21-32 N ANION GAP (test code = GAP) 10.8 10-20 N GLUCOSE (test code = GLU) 95 mg/dL 74-106 N BLOOD UREA NITROGEN (test code = BUN) 9 mg/dL 7-18 N GLOMERULAR FILTRATION RATE (test code = GFR) > 60 mL/min >=60 Estimated GFR by using Modified MDRD formula.Chronic kidney disease is defined as either kidney damageor GFR <60 mL/min/1.73 m2 for >3 months. CREATININE (test code = CREAT) 0.40 mg/dL 0.55-1.02 L Note change in reference range due to change in reagent. BUN/CREATININE RATIO (test code = BUN/CREA) 22.5 10-20 H CALCIUM (test code = CA) 7.0 mg/dL 8.5-10.1 L PT HARD STICK NOTIFIED BRUNILDA QUEZADA [facility]3 [id number] 11:10:00* Test Item Value Reference Range Interpretation Comments PHOSPHORUS (test code = PHOS) 1.7 mg/dL 2.5-4.9 L PT HARD STICK NOTIFIED BRUNILDA QUEZADA [facility]3 [id number] 11:10:00* Test Item Value Reference Range Interpretation Comments MAGNESIUM (test code = MAG) 1.5 mg/dL 1.8-2.4 L PT HARD STICK NOTIFIED [place] [id number] IONIZED 2019-03-13 11:10:00* Test Item Value Reference Range Interpretation Comments CALCIUM IONIZED (test code = CONNIE) 0.99 mmol/L 1.12-1.32 L PT HARD STICK NOTIFIED BRUNILDA QUEZADA [place] [id number] METABOLIC PANEL 2019-03-13 11:03:00* Test Item Value Reference Range Interpretation Comments SODIUM (test code = NA) 139 mmol/L 136-145 N POTASSIUM (test code = K) 3.8 mmol/L 3.5-5.1 N CHLORIDE (test code = CL) 104.0 mmol/L 98-107 N CARBON DIOXIDE (test code = CO2) mmol/L 21-32 ANION GAP (test code = GAP) 10-20 GLUCOSE (test code = GLU) mg/dL 74-106 BLOOD UREA NITROGEN (test code = BUN) mg/dL 7-18 GLOMERULAR FILTRATION RATE (test code = GFR) mL/min >=60 CREATININE (test code = CREAT) mg/dL 0.55-1.02 BUN/CREATININE RATIO (test code = BUN/CREA) 10-20 CALCIUM (test code = CA) mg/dL 8.5-10.1 PT HARD STICK NOTIFIED BRUNILDA QUEZADA [facility] [id number] 11:03:00* Test Item Value Reference Range Interpretation Comments PHOSPHORUS (test code = PHOS) mg/dL 2.5-4.9 PT HARD STICK NOTIFIED BRUNILDA QUEZADA [place] [address] [id number] 11:03:00* Test Item Value Reference Range Interpretation Comments MAGNESIUM (test code = MAG) mg/dL 1.8-2.4 PT HARD STICK NOTIFIED BRUNILDA MERINORA @[facility].3 [id number] IONIZED 2019-03-13 11:03:00* Test Item Value Reference Range Interpretation Comments CALCIUM IONIZED (test code = CONNIE) 0.99 mmol/L 1.12-1.32 L PT HARD STICK NOTIFIED BRUNILDA QUEZADA [facility] [id number] METABOLIC PANEL 2019-03-13 11:02:00* Test Item Value Reference Range Interpretation Comments SODIUM (test code = NA) mmol/L 136-145 POTASSIUM (test code = K) mmol/L 3.5-5.1 CHLORIDE (test code = CL) mmol/L 98-107 CARBON DIOXIDE (test code = CO2) mmol/L 21-32 ANION GAP (test code = GAP) 10-20 GLUCOSE (test code = GLU) mg/dL 74-106 BLOOD UREA NITROGEN (test code = BUN) mg/dL 7-18 GLOMERULAR FILTRATION RATE (test code = GFR) mL/min >=60 CREATININE (test code = CREAT) mg/dL 0.55-1.02 BUN/CREATININE RATIO (test code = BUN/CREA) 10-20 CALCIUM (test code = CA) mg/dL 8.5-10.1 PT HARD STICK NOTIFIED BRUNILDA MERINORA [facility].3 [id number] 11:02:00* Test Item Value Reference Range Interpretation Comments PHOSPHORUS (test code = PHOS) mg/dL 2.5-4.9 PT HARD STICK NOTIFIED BRUNILDA QUEZADA @[facility].3 [id number] 11:02:00* Test Item Value Reference Range Interpretation Comments MAGNESIUM (test code = MAG) mg/dL 1.8-2.4 PT HARD STICK NOTIFIED BRUNILDA MERINORA [facility] [id number] IONIZED 2019-03-13 11:02:00* Test Item Value Reference Range Interpretation Comments CALCIUM IONIZED (test code = CONNIE) 0.99 mmol/L 1.12-1.32 L PT HARD STICK NOTIFIED BRUNILDA QUEZADA @[email or web address] 03/13/[id number] 07:23:00* Test Item Value Reference Range Interpretation Comments GLUBED (test code = GLUBED) 88 mg/dL 74-106 N Performed by certified threader operator at [facility] ANTINUCLEAR ANTIBODIES [id number] 07:18:00* Test Item Value Reference Range Interpretation Comments GISELLE SCREEN (test code = ANASCR) ACUTE HEPATITIS [id number] 07:18:00* Test Item Value Reference Range Interpretation Comments AB HEPATITIS A IGM (test code = HAVMAB) Negative Negative AG HEPAT B SURF (test code = HBSAG) Negative Negative HEPATITIS B CORE ANTIBODY,IGM (test code = HBCMAB) Negative Neg ative AB HEPATITIS C (test code = HCVAB) <0.1 0.0-0.9 INFCE Result Units: s/co ratio Negative: < 0.8 Indeterminate: 0.8 - 0.9 Positive: > 0.9 The CDC recommends that a positive HCV antibody result be followed up with a HCV Nucleic Acid Amplification test ([id number]).Performed At: [facility] [address] [id number] Josiah Woodard MD Ph:[phone] [id number] 01:39:00* Test Item Value Reference Range Interpretation Comments GLUBED (test code = GLUBED) 78 mg/dL 74-106 N Performed by certified threader operator at [facility] [id number] 20:52:00* Test Item Value Reference Range Interpretation Comments GLUBED (test code = GLUBED) 69 mg/dL 74-106 L Performed by certified threader operator at [facility] [id number] 17:11:00* Test Item Value Reference Range Interpretation Comments GLUBED (test code = GLUBED) 89 mg/dL 74-106 N Performed by certified threader operator at [facility] PROCALCITONIN (PCT)2019-03-12 16:39:00* Test Item Value Reference Range Interpretation Comments PROCALCITONIN (PCT) (test code = PROCAL) 0.37 ng/ml Concentration Interpretation (ng/mL) <0.51 Sepsis [...] interpreted taking into account the patients history. [id number] 13:00:00* Test Item Value Reference Range Interpretation Comments GLUBED (test code = GLUBED) 83 mg/dL 74-106 N Performed by certified threader operator at [facility] BASIC METABOLIC [id number] 07:49:00* Test Item Value Reference Range Interpretation Comments SODIUM (test code = NA) 142 mmol/L 136-145 N POTASSIUM (test code = K) 3.0 mmol/L 3.5-5.1 L CHLORIDE (test code = CL) 103.0 mmol/L 98-107 N CARBON DIOXIDE (test code = CO2) 37.0 mmol/L 21-32 H ANION GAP (test code = GAP) 5.0 10-20 L GLUCOSE (test code = GLU) 82 mg/dL 74-106 N BLOOD UREA NITROGEN (test code = BUN) 11 mg/dL 7-18 N GLOMERULAR FILTRATION RATE (test code = GFR) > 60 mL/min >=60 Estimated GFR by using Modified MDRD formula.Chronic kidney disease is defined as either kidney damageor GFR <60 mL/min/1.73 m2 for >3 months. CREATININE (test code = CREAT) 0.40 mg/dL 0.55-1.02 L Note change in reference range due to change in reagent. BUN/CREATININE RATIO (test code = BUN/CREA) 27.5 10-20 H CALCIUM (test code = CA) 7.0 mg/dL 8.5-10.1 L [id number] 07:49:00* Test Item Value Reference Range Interpretation Comments PHOSPHORUS (test code = PHOS) 1.7 mg/dL 2.5-4.9 L [id number] 07:49:00* Test Item Value Reference Range Interpretation Comments MAGNESIUM (test code = MAG) 1.5 mg/dL 1.8-2.4 L CALCIUM [id number] 07:49:00* Test Item Value Reference Range Interpretation Comments CALCIUM IONIZED (test code = CONNIE) 1.05 mmol/L 1.12-1.32 L BASIC METABOLIC [id number] 07:46:00* Test Item Value Reference Range Interpretation Comments SODIUM (test code = NA) 142 mmol/L 136-145 N POTASSIUM (test code = K) 3.0 mmol/L 3.5-5.1 L CHLORIDE (test code = CL) 103.0 mmol/L 98-107 N CARBON DIOXIDE (test code = CO2) mmol/L 21-32 ANION GAP (test code = GAP) 10-20 GLUCOSE (test code = GLU) mg/dL 74-106 BLOOD UREA NITROGEN (test code = BUN) mg/dL 7-18 GLOMERULAR FILTRATION RATE (test code = GFR) mL/min >=60 CREATININE (test code = CREAT) mg/dL 0.55-1.02 BUN/CREATININE RATIO (test code = BUN/CREA) 10-20 CALCIUM (test code = CA) mg/dL 8.5-10.1 [id number] 07:46:00* Test Item Value Reference Range Interpretation Comments PHOSPHORUS (test code = PHOS) mg/dL 2.5-4.9 [id number] 07:46:00* Test Item Value Reference Range Interpretation Comments MAGNESIUM (test code = MAG) mg/dL 1.8-2.4 CALCIUM [id number] 07:46:00* Test Item Value Reference Range Interpretation Comments CALCIUM IONIZED (test code = CONNIE) 1.05 mmol/L 1.12-1.32 L BASIC METABOLIC [id number] 07:40:00* Test Item Value Reference Range Interpretation Comments SODIUM (test code = NA) mmol/L 136-145 POTASSIUM (test code = K) mmol/L 3.5-5.1 CHLORIDE (test code = CL) mmol/L 98-107 CARBON DIOXIDE (test code = CO2) mmol/L 21-32 ANION GAP (test code = GAP) 10-20 GLUCOSE (test code = GLU) mg/dL 74-106 BLOOD UREA NITROGEN (test code = BUN) mg/dL 7-18 GLOMERULAR FILTRATION RATE (test code = GFR) mL/min >=60 CREATININE (test code = CREAT) mg/dL 0.55-1.02 BUN/CREATININE RATIO (test code = BUN/CREA) 10-20 CALCIUM (test code = CA) mg/dL 8.5-10.1 [id number] 07:40:00* Test Item Value Reference Range Interpretation Comments PHOSPHORUS (test code = PHOS) mg/dL 2.5-4.9 [id number] 07:40:00* Test Item Value Reference Range Interpretation Comments MAGNESIUM (test code = MAG) mg/dL 1.8-2.4 CALCIUM [id number] 07:40:00* Test Item Value Reference Range Interpretation Comments CALCIUM IONIZED (test code = OCNNIE) 1.05 mmol/L 1.12-1.32 L CBC W/AUTO [id number] 07:18:00* Test Item Value Reference Range Interpretation Comments WHITE BLOOD CELL (test code = WBC) 5.9 K/mm3 4.5-12.5 N RED BLOOD CELL (test code = RBC) 2.54 mill/mm3 3.7-5.2 L HEMOGLOBIN (test code = HGB) 7.7 gram/dL 11.5-15.5 L HEMATOCRIT (test code = HCT) 23.6 % 36.0-46.0 L MEAN CELL VOLUME (test code = MCV) 92.9 fL 80-98 N MEAN CELL HGB (test code = MCH) 30.3 picogram 27.0-33.0 N MEAN CELL HGB CONCETRATION (test code = MCHC) 32.6 gram/dL 33.0-36. 0 L RED CELL DISTRIBUTION WIDTH (test code = RDW) 19.7 % 11.6-16. 2 H RED CELL DISTRIBUTION WIDTH SD (test code = RDW-SD) 64.9 fL 37 .0-51.0 H PLATELET COUNT (test code = PLT) 116 K/mm3 150-450 L MEAN PLATELET VOLUME (test code = MPV) 10.7 fL 6.7-11.0 N NEUTROPHIL % (test code = NT%) 90.2 % 39.0-69.0 H IMMATURE GRANULOCYTE % (test code = IG%) 1.2 % 0.0-5.0 N LYMPHOCYTE % (test code = LY%) 5.2 % 25.0-55.0 L MONOCYTE % (test code = MO%) 3.2 % 0.0-10.0 N EOSINOPHIL % (test code = EO%) 0.2 % 0.0-5.0 N BASOPHIL % (test code = BA%) 0.0 % 0.0-1.0 N NUCLEATED RBC % (test code = NRBC%) 0.0 % 0-0 N NEUTROPHIL # (test code = NT#) 5.34 K/mm3 1.8-7.7 N IMMATURE GRANULOCYTE # (test code = IG#) 0.07 x10 3/uL 0-0.03 H LYMPHOCYTE # (test code = LY#) 0.31 K/mm3 1.0-5.0 L MONOCYTE # (test code = MO#) 0.19 K/mm3 0-0.8 N EOSINOPHIL # (test code = EO#) 0.01 K/mm3 0.0-0.5 N BASOPHIL # (test code = BA#) 0.00 K/mm3 0.0-0.2 N NUCLEATED RBC # (test code = NRBC#) 0.00 K/mm3 0.0-0.1 N [id number] 16:35:00* Test Item Value Reference Range Interpretation Comments GLUBED (test code = GLUBED) 97 mg/dL 74-106 N Performed by certified threader operator at [facility] VANCOMYCIN [id number] 11:32:00* Test Item Value Reference Range Interpretation Comments VANCOMYCIN TROUGH (test code = VANCT) 8.4 ug/mL 10-20 L [id number] 11:30:00* Test Item Value Reference Range Interpretation Comments GLUCOSE (test code = GLU) 77 mg/dL 74-106 N BASIC METABOLIC [id number] 06:44:00* Test Item Value Reference Range Interpretation Comments SODIUM (test code = NA) 146 mmol/L 136-145 H POTASSIUM (test code = K) 3.1 mmol/L 3.5-5.1 L CHLORIDE (test code = CL) 103.2 mmol/L 98-107 N CARBON DIOXIDE (test code = CO2) 37.0 mmol/L 21-32 H ANION GAP (test code = GAP) 8.9 10-20 L GLUCOSE (test code = GLU) 196 mg/dL 74-106 H BLOOD UREA NITROGEN (test code = BUN) 11 mg/dL 7-18 N GLOMERULAR FILTRATION RATE (test code = GFR) > 60 mL/min >=60 Estimated GFR by using Modified MDRD formula.Chronic kidney disease is defined as either kidney damageor GFR <60 mL/min/1.73 m2 for >3 months. CREATININE (test code = CREAT) 0.76 mg/dL 0.55-1.02 N Note change in reference range due to change in reagent. BUN/CREATININE RATIO (test code = BUN/CREA) 14.5 10-20 N CALCIUM (test code = CA) 7.0 mg/dL 8.5-10.1 L [id number] 06:44:00* Test Item Value Reference Range Interpretation Comments PHOSPHORUS (test code = PHOS) 2.1 mg/dL 2.5-4.9 L [id number] 06:44:00* Test Item Value Reference Range Interpretation Comments MAGNESIUM (test code = MAG) 1.8 mg/dL 1.8-2.4 N CALCIUM [id number] 06:44:00* Test Item Value Reference Range Interpretation Comments CALCIUM IONIZED (test code = CONNIE) 1.05 mmol/L 1.12-1.32 L Previously reported result: 0.92 mmol/LEdited by: [email or web address] on 03/11/19:33381903/11/19 0644: CA IONIZED previously reported as: 0.92 L mmol/L BASIC METABOLIC [id number] 06:38:00* Test Item Value Reference Range Interpretation Comments SODIUM (test code = NA) 146 mmol/L 136-145 H POTASSIUM (test code = K) 3.1 mmol/L 3.5-5.1 L CHLORIDE (test code = CL) 103.2 mmol/L 98-107 N CARBON DIOXIDE (test code = CO2) 37.0 mmol/L 21-32 H ANION GAP (test code = GAP) 8.9 10-20 L GLUCOSE (test code = GLU) 196 mg/dL 74-106 H BLOOD UREA NITROGEN (test code = BUN) 11 mg/dL 7-18 N GLOMERULAR FILTRATION RATE (test code = GFR) > 60 mL/min >=60 Estimated GFR by using Modified MDRD formula.Chronic kidney disease is defined as either kidney damageor GFR <60 mL/min/1.73 m2 for >3 months. CREATININE (test code = CREAT) 0.76 mg/dL 0.55-1.02 N Note change in reference range due to change in reagent. BUN/CREATININE RATIO (test code = BUN/CREA) 14.5 10-20 N CALCIUM (test code = CA) 7.0 mg/dL 8.5-10.1 L [id number] 06:38:00* Test Item Value Reference Range Interpretation Comments PHOSPHORUS (test code = PHOS) 2.1 mg/dL 2.5-4.9 L [id number] 06:38:00* Test Item Value Reference Range Interpretation Comments MAGNESIUM (test code = MAG) 1.8 mg/dL 1.8-2.4 N CALCIUM [id number] 06:38:00* Test Item Value Reference Range Interpretation Comments CALCIUM IONIZED (test code = CONNIE) 0.92 mmol/L 1.12-1.32 L LACTIC [id number] 05:44:00* Test Item Value Reference Range Interpretation Comments LACTIC ACID (test code = LACT) 3.8 mmol/L 0.4-1.9 Results called to [id number] by V.LAB.JP1 03/11/19 0543Critical results verified and read back by Nurse?Y CBC W/AUTO [id number] 05:43:00* Test Item Value Reference Range Interpretation Comments WHITE BLOOD CELL (test code = WBC) 12.5 K/mm3 4.5-12.5 N RED BLOOD CELL (test code = RBC) 2.66 mill/mm3 3.7-5.2 L HEMOGLOBIN (test code = HGB) 8.2 gram/dL 11.5-15.5 L HEMATOCRIT (test code = HCT) 23.9 % 36.0-46.0 L MEAN CELL VOLUME (test code = MCV) 89.8 fL 80-98 N MEAN CELL HGB (test code = MCH) 30.8 picogram 27.0-33.0 N MEAN CELL HGB CONCETRATION (test code = MCHC) 34.3 gram/dL 33.0-36. 0 N RED CELL DISTRIBUTION WIDTH (test code = RDW) 20.0 % 11.6-16. 2 H RED CELL DISTRIBUTION WIDTH SD (test code = RDW-SD) 63.2 fL 37 .0-51.0 H PLATELET COUNT (test code = PLT) 165 K/mm3 150-450 N MEAN PLATELET VOLUME (test code = MPV) 10.8 fL 6.7-11.0 N NEUTROPHIL % (test code = NT%) 93.6 % 39.0-69.0 H IMMATURE GRANULOCYTE % (test code = IG%) 1.2 % 0.0-5.0 N LYMPHOCYTE % (test code = LY%) 2.5 % 25.0-55.0 L MONOCYTE % (test code = MO%) 2.6 % 0.0-10.0 N EOSINOPHIL % (test code = EO%) 0.0 % 0.0-5.0 N BASOPHIL % (test code = BA%) 0.1 % 0.0-1.0 N NUCLEATED RBC % (test code = NRBC%) 0.7 % 0-0 H NEUTROPHIL # (test code = NT#) 11.74 K/mm3 1.8-7.7 H IMMATURE GRANULOCYTE # (test code = IG#) 0.15 x10 3/uL 0-0.03 H LYMPHOCYTE # (test code = LY#) 0.31 K/mm3 1.0-5.0 L MONOCYTE # (test code = MO#) 0.33 K/mm3 0-0.8 N EOSINOPHIL # (test code = EO#) 0.00 K/mm3 0.0-0.5 N BASOPHIL # (test code = BA#) 0.01 K/mm3 0.0-0.2 N NUCLEATED RBC # (test code = NRBC#) 0.09 K/mm3 0.0-0.1 N CBC W/AUTO [id number] 05:43:00* Test Item Value Reference Range Interpretation Comments WHITE BLOOD CELL (test code = WBC) 12.5 K/mm3 4.5-12.5 N RED BLOOD CELL (test code = RBC) 2.66 mill/mm3 3.7-5.2 L HEMOGLOBIN (test code = HGB) 8.2 gram/dL 11.5-15.5 L HEMATOCRIT (test code = HCT) 23.9 % 36.0-46.0 L MEAN CELL VOLUME (test code = MCV) 89.8 fL 80-98 N MEAN CELL HGB (test code = MCH) 30.8 picogram 27.0-33.0 N MEAN CELL HGB CONCETRATION (test code = MCHC) 34.3 gram/dL 33.0-36. 0 N RED CELL DISTRIBUTION WIDTH (test code = RDW) 20.0 % 11.6-16. 2 H RED CELL DISTRIBUTION WIDTH SD (test code = RDW-SD) 63.2 fL 37 .0-51.0 H PLATELET COUNT (test code = PLT) 165 K/mm3 150-450 N MEAN PLATELET VOLUME (test code = MPV) 10.8 fL 6.7-11.0 N NEUTROPHIL % (test code = NT%) 93.6 % 39.0-69.0 H IMMATURE GRANULOCYTE % (test code = IG%) 1.2 % 0.0-5.0 N LYMPHOCYTE % (test code = LY%) 2.5 % 25.0-55.0 L MONOCYTE % (test code = MO%) 2.6 % 0.0-10.0 N EOSINOPHIL % (test code = EO%) 0.0 % 0.0-5.0 N BASOPHIL % (test code = BA%) 0.1 % 0.0-1.0 N NUCLEATED RBC % (test code = NRBC%) 0.7 % 0-0 H NEUTROPHIL # (test code = NT#) 11.74 K/mm3 1.8-7.7 H IMMATURE GRANULOCYTE # (test code = IG#) 0.15 x10 3/uL 0-0.03 H LYMPHOCYTE # (test code = LY#) 0.31 K/mm3 1.0-5.0 L MONOCYTE # (test code = MO#) 0.33 K/mm3 0-0.8 N EOSINOPHIL # (test code = EO#) 0.00 K/mm3 0.0-0.5 N BASOPHIL # (test code = BA#) 0.01 K/mm3 0.0-0.2 N NUCLEATED RBC # (test code = NRBC#) 0.09 K/mm3 0.0-0.1 N MANUAL DIFF REQUIRED (test code = MDIFF) NO BASIC METABOLIC [id number] 05:28:00* Test Item Value Reference Range Interpretation Comments SODIUM (test code = NA) mmol/L 136-145 POTASSIUM (test code = K) mmol/L 3.5-5.1 CHLORIDE (test code = CL) mmol/L 98-107 CARBON DIOXIDE (test code = CO2) mmol/L 21-32 ANION GAP (test code = GAP) 10-20 GLUCOSE (test code = GLU) mg/dL 74-106 BLOOD UREA NITROGEN (test code = BUN) mg/dL 7-18 GLOMERULAR FILTRATION RATE (test code = GFR) mL/min >=60 CREATININE (test code = CREAT) mg/dL 0.55-1.02 BUN/CREATININE RATIO (test code = BUN/CREA) 10-20 CALCIUM (test code = CA) mg/dL 8.5-10.1 [id number] 05:28:00* Test Item Value Reference Range Interpretation Comments PHOSPHORUS (test code = PHOS) mg/dL 2.5-4.9 [id number] 05:28:00* Test Item Value Reference Range Interpretation Comments MAGNESIUM (test code = MAG) mg/dL 1.8-2.4 CALCIUM [id number] 05:28:00* Test Item Value Reference Range Interpretation Comments CALCIUM IONIZED (test code = CONNIE) 0.92 mmol/L 1.12-1.32 L - US ABDOMEN [id number] 19:09:00 Name: OLEG STEINER [facility] : 1960 Age/S: 58 / F [address] [facility] Unit #: [id number] Loc: DERRICK [place] [address] Phys: Krystal Adorno Acct: [id number] Dis Date: Status: ADM IN PHONE #: [phone] Exam Date: 03/10/2019 4701 FAX #: [phone] Reason: elevated lft's, sepsis EXAMS: CPT CODE: [id number] US ABDOMEN COMPLETE 86600 REASON FOR EXAM: elevated lft's, sepsis EXAM [...] with hepatopetal flow IMPRESSION: Fatty liver at 1909 Reported and signed by: Matty Ingram M.D. CC: Precious Teague MD; Krystal Adorno Technologist: Elton Roberson Trnscb Date/Time: 03/10/2019 (1908) [email or web address] Orig Print D/T: S: 03/10/2019 (1911) Probe: PAGE 1 Signed Report PROCALCITONIN (PCT)2019-03-10 16:40:00* Test Item Value Reference Range Interpretation Comments PROCALCITONIN (PCT) (test code = PROCAL) 1.13 ng/ml Concentration Interpretation (ng/mL) <0.51 Sepsis [...] into account the patients history. COMMENTS TO ACCOUNTS CLERK: add [id number] 16:27:00* Test Item Value Reference Range Interpretation Comments GLUBED (test code = GLUBED) 164 mg/dL 74-106 H Performed by certified threader operator at [facility] OSMOLALITY [id number] 16:15:00* Test Item Value Reference Range Interpretation Comments OSMOLALITY SERUM (test code = OSMO) 310 mOsm/kg 275-295 H [id number] 16:12:00* Test Item Value Reference Range Interpretation Comments TROPONIN-I (test code = TROPI) 0.078 ng/mL 0-0.045 HH Results called to [id number] by V.LAB.AA 03/10/19 1612Critical results verified and read back by Nurse? Y COMMENTS TO ACCOUNTS CLERK: COLLECT 3 HOURS AFTER PREVIOUS SAMPLEBASIC METABOLIC [id number] 16:11:00* Test Item Value Reference Range Interpretation Comments SODIUM (test code = NA) 142 mmol/L 136-145 N POTASSIUM (test code = K) 2.8 mmol/L 3.5-5.1 LL Re sults called to [id number] by V.LAB. 03/10/19 1611Critical results verified and read back by Nurse? Y CHLORIDE (test code = CL) 106.0 mmol/L 98-107 N CARBON DIOXIDE (test code = CO2) 21.0 mmol/L 21-32 N ANION GAP (test code = GAP) 17.8 10-20 N GLUCOSE (test code = GLU) 172 mg/dL 74-106 H BLOOD UREA NITROGEN (test code = BUN) 12 mg/dL 7-18 N GLOMERULAR FILTRATION RATE (test code = GFR) 46 mL/min >=60 Estimated GFR by using Modified MDRD formula.Chronic kidney disease is defined as either kidney damageor GFR <60 mL/min/1.73 m2 for >3 months. CREATININE (test code = CREAT) 1.20 mg/dL 0.55-1.02 H Note change in reference range due to change in reagent. BUN/CREATININE RATIO (test code = BUN/CREA) 10.0 10-20 N CALCIUM (test code = CA) 7.1 mg/dL 8.5-10.1 L [id number] 16:11:00* Test Item Value Reference Range Interpretation Comments PHOSPHORUS (test code = PHOS) 1.2 mg/dL 2.5-4.9 L [id number] 16:11:00* Test Item Value Reference Range Interpretation Comments MAGNESIUM (test code = MAG) 2.2 mg/dL 1.8-2.4 N UR NA,[id number] 16:09:00* Test Item Value Reference Range Interpretation Comments UR NA,RANDOM (test code = BABATUNDE) 83 mmol/L 20-110 N UR PROTEIN/CREATININE [id number] 16:09:00* Test Item Value Reference Range Interpretation Comments UR PROTEIN RANDOM (test code = PROTU) 96.4 mg/dL 0.0-11.9 H Protein levels may be falsely elevated in patients withelevated level of aminoglycoside antibiotics in CSF and inhighly concentrated urine specimens. If false elevation issuspected, contact lab for alternated testing technique. UR CREATININE RANDOM (test code = CREATU) 48.0 mg/dL 30-125 N PROTEIN/CREATININE RATIO (test code = P/CRATIO) 2.01 RATIO 0.0-0. 20 H LACTIC [id number] 16:07:00* Test Item Value Reference Range Interpretation Comments LACTIC ACID (test code = LACT) 11.0 mmol/L 0.4-1.9 HH Results called to [id number] by V.LAB.AA 03/10/19 1607Critical results verified and read back by Nurse? Y UR NA,[id number] 16:00:00* Test Item Value Reference Range Interpretation Comments UR NA,RANDOM (test code = BABATUNDE) 83 mmol/L 20-110 N UR PROTEIN/CREATININE [id number] 16:00:00* Test Item Value Reference Range Interpretation Comments UR PROTEIN RANDOM (test code = PROTU) mg/dL 0.0-11.9 UR CREATININE RANDOM (test code = CREATU) mg/dL 30-125 PROTEIN/CREATININE RATIO (test code = P/CRATIO) RATIO 0.0-0. 20 CBC W/AUTO [id number] 15:46:00* Test Item Value Reference Range Interpretation Comments WHITE BLOOD CELL (test code = WBC) 14.7 K/mm3 4.5-12.5 H RED BLOOD CELL (test code = RBC) 2.78 mill/mm3 3.7-5.2 L HEMOGLOBIN (test code = HGB) 8.5 gram/dL 11.5-15.5 L HEMATOCRIT (test code = HCT) 25.7 % 36.0-46.0 L MEAN CELL VOLUME (test code = MCV) 92.4 fL 80-98 RESULT VERIFIED BY REPEAT ANALYSIS MEAN CELL HGB (test code = MCH) 30.6 picogram 27.0-33.0 N MEAN CELL HGB CONCETRATION (test code = MCHC) 33.1 gram/dL 33.0-36. 0 N RED CELL DISTRIBUTION WIDTH (test code = RDW) 19.3 % 11.6-16. 2 H RED CELL DISTRIBUTION WIDTH SD (test code = RDW-SD) 63.0 fL 37 .0-51.0 H PLATELET COUNT (test code = PLT) 167 K/mm3 150-450 N MEAN PLATELET VOLUME (test code = MPV) 10.6 fL 6.7-11.0 N NEUTROPHIL % (test code = NT%) 90.6 % 39.0-69.0 H IMMATURE GRANULOCYTE % (test code = IG%) 2.7 % 0.0-5.0 N LYMPHOCYTE % (test code = LY%) 3.3 % 25.0-55.0 L MONOCYTE % (test code = MO%) 3.3 % 0.0-10.0 N EOSINOPHIL % (test code = EO%) 0.0 % 0.0-5.0 N BASOPHIL % (test code = BA%) 0.1 % 0.0-1.0 N NUCLEATED RBC % (test code = NRBC%) 1.2 % 0-0 H NEUTROPHIL # (test code = NT#) 13.36 K/mm3 1.8-7.7 H IMMATURE GRANULOCYTE # (test code = IG#) 0.40 x10 3/uL 0-0.03 H LYMPHOCYTE # (test code = LY#) 0.48 K/mm3 1.0-5.0 L MONOCYTE # (test code = MO#) 0.48 K/mm3 0-0.8 N EOSINOPHIL # (test code = EO#) 0.00 K/mm3 0.0-0.5 N BASOPHIL # (test code = BA#) 0.02 K/mm3 0.0-0.2 N NUCLEATED RBC # (test code = NRBC#) 0.18 K/mm3 0.0-0.1 H MANUAL DIFF REQUIRED (test code = MDIFF) NO LACTIC [id number] 13:52:00* Test Item Value Reference Range Interpretation Comments LACTIC ACID (test code = LACT) 13.2 mmol/L 0.4-1.9 Results called to [id number] by V.LAB.[facility] 03/10/19 1351Critical results verified and read back by Nurse? Y [id number] 13:43:00* Test Item Value Reference Range Interpretation Comments TROPONIN-I (test code = TROPI) 0.063 ng/mL 0-0.045 COMMENTS TO ACCOUNTS CLERK: COLLECT 3 HOURS AFTER PREVIOUS SAMPLELACTIC [id number] 12:26:00* Test Item Value Reference Range Interpretation Comments LACTIC ACID (test code = LACT) 15.2 mmol/L 0.4-1.9 Results called to [id number] by V.LAB.[facility] 03/10/19 1225Critical results verified and read back by Nurse? Y [id number] 11:37:00* Test Item Value Reference Range Interpretation Comments GLUBED (test code = GLUBED) 114 mg/dL 74-106 H Performed by certified threader operator at [facility] [id number] 11:06:00* Test Item Value Reference Range Interpretation Comments PHOSPHORUS (test code = PHOS) 3.8 mg/dL 2.5-4.9 N [id number] 11:06:00* Test Item Value Reference Range Interpretation Comments MAGNESIUM (test code = MAG) 1.6 mg/dL 1.8-2.4 L CALCIUM [id number] 11:06:00* Test Item Value Reference Range Interpretation Comments CALCIUM IONIZED (test code = CONNIE) 1.03 mmol/L 1.12-1.32 L CBC W/AUTO [id number] 09:43:00* Test Item Value Reference Range Interpretation Comments WHITE BLOOD CELL (test code = WBC) 13.7 K/mm3 4.5-12.5 H RED BLOOD CELL (test code = RBC) 2.08 mill/mm3 3.7-5.2 L HEMOGLOBIN (test code = HGB) 6.7 gram/dL 11.5-15.5 L HEMATOCRIT (test code = HCT) 22.7 % 36.0-46.0 L MEAN CELL VOLUME (test code = MCV) 109.1 fL 80-98 H MEAN CELL HGB (test code = MCH) 32.2 picogram 27.0-33.0 N MEAN CELL HGB CONCETRATION (test code = MCHC) 29.5 gram/dL 33.0-36. 0 L RED CELL DISTRIBUTION WIDTH (test code = RDW) 20.1 % 11.6-16. 2 H RED CELL DISTRIBUTION WIDTH SD (test code = RDW-SD) 79.7 fL 37 .0-51.0 H PLATELET COUNT (test code = PLT) 183 K/mm3 150-450 RESULT VERIFIED BY REPEAT ANALYSIS MEAN PLATELET VOLUME (test code = MPV) 11.2 fL 6.7-11.0 H NEUTROPHIL % (test code = NT%) 92.5 % 39.0-69.0 H IMMATURE GRANULOCYTE % (test code = IG%) 1.2 % 0.0-5.0 N LYMPHOCYTE % (test code = LY%) 2.6 % 25.0-55.0 L MONOCYTE % (test code = MO%) 3.5 % 0.0-10.0 N EOSINOPHIL % (test code = EO%) 0.0 % 0.0-5.0 N BASOPHIL % (test code = BA%) 0.2 % 0.0-1.0 N NUCLEATED RBC % (test code = NRBC%) 2.0 % 0-0 H NEUTROPHIL # (test code = NT#) 12.66 K/mm3 1.8-7.7 H IMMATURE GRANULOCYTE # (test code = IG#) 0.16 x10 3/uL 0-0.03 H LYMPHOCYTE # (test code = LY#) 0.36 K/mm3 1.0-5.0 L MONOCYTE # (test code = MO#) 0.48 K/mm3 0-0.8 N EOSINOPHIL # (test code = EO#) 0.00 K/mm3 0.0-0.5 N BASOPHIL # (test code = BA#) 0.03 K/mm3 0.0-0.2 N NUCLEATED RBC # (test code = NRBC#) 0.27 K/mm3 0.0-0.1 H MANUAL DIFF REQUIRED (test code = MDIFF) NO, ONLY SCAN NEEDED DIFFERENTIAL [id number] 09:43:00* Test Item Value Reference Range Interpretation Comments STAIN ACCEPTABILITY (test code = STN ACCEPTABLE) STAIN ACCEPTABLE POIKILOCYTOSIS (test code = POIK) 3+ ANISOCYTOSIS (test code = ANISO) 3+ MACROCYTOSIS (test code = MACR) 3+ TARGET CELLS (test code = TGT) 1+ ELLIPTOCYTES (test code = ELL) 1+ CRENATED CELLS (test code = CREN) 1+ PLATELET ESTIMATE (test code = PLTEST) ADEQUATE PLATELET MORPHOLOGY (test code = PLTMORPH) NORMAL [id number] 09:42:00* Test Item Value Reference Range Interpretation Comments GLUBED (test code = GLUBED) 89 mg/dL 74-106 N Performed by certified threader operator at [facility] [id number] 09:41:00* Test Item Value Reference Range Interpretation Comments PHOSPHORUS (test code = PHOS) 3.8 mg/dL 2.5-4.9 N [id number] 09:41:00* Test Item Value Reference Range Interpretation Comments MAGNESIUM (test code = MAG) 1.6 mg/dL 1.8-2.4 L CALCIUM [id number] 09:41:00* Test Item Value Reference Range Interpretation Comments CALCIUM IONIZED (test code = CONNIE) mmol/L 1.12-1.32 COMPREHENSIVE METABOLIC [id number] 09:16:00* Test Item Value Reference Range Interpretation Comments SODIUM (test code = NA) 144 mmol/L 136-145 N POTASSIUM (test code = K) 3.2 mmol/L 3.5-5.1 L CHLORIDE (test code = CL) 106.0 mmol/L 98-107 N CARBON DIOXIDE (test code = CO2) 8.0 mmol/L 21-32 L ANION GAP (test code = GAP) 33.2 10-20 H GLUCOSE (test code = GLU) 59 mg/dL 74-106 L BLOOD UREA NITROGEN (test code = BUN) 13 mg/dL 7-18 N GLOMERULAR FILTRATION RATE (test code = GFR) 38 mL/min >=60 Estimated GFR by using Modified MDRD formula.Chronic kidney disease is defined as either kidney damageor GFR <60 mL/min/1.73 m2 for >3 months. CREATININE (test code = CREAT) 1.40 mg/dL 0.55-1.02 H Note change in reference range due to change in reagent. BUN/CREATININE RATIO (test code = BUN/CREA) 9.3 10-20 L TOTAL PROTEIN (test code = PROT) 4.5 gram/dL 6.4-8.2 L ALBUMIN (test code = ALB) 1.4 g/dL 3.4-5.0 L GLOBULIN (test code = GLOB) 3.1 gram/dL 2.7-4.2 N ALBUMIN/GLOBULIN RATIO (test code = A/G) 0.5 0.75-1.50 L CALCIUM (test code = CA) 7.9 mg/dL 8.5-10.1 L BILIRUBIN TOTAL (test code = BILT) 1.30 mg/dL 0.0-1.0 H SGOT/AST (test code = AST) 191 IUnit/L 15-37 H SGPT/ALT (test code = ALT) 58 IUnit/L 12-78 N ALKALINE PHOSPHATASE TOTAL (test code = ALKP) 72 IUnit/L 45-117 N Note change in reference range due to change in reagent. URINALYSIS [id number] 08:48:00* Test Item Value Reference Range Interpretation Comments UA COLOR (test code = COLU) YELLOW YELLOW UA APPEARANCE (test code = APPU) Cloudy CLEAR A UA GLUCOSE DIPSTICK (test code = DGLUU) NEGATIVE mg/dL NEGATIVE UA BILIRUBIN DIPSTICK (test code = BILU) NEGATIVE mg/dL NEGATIVE UA KETONE DIPSTICK (test code = KETU) 20 (1+) mg/dL NEGATIVE A UA SPECIFIC GRAVITY (test code = SGU) 1.019 1.001-1.035 UA BLOOD DIPSTICK (test code = JORGE) 0.2 mg/dL (2+) mg/dL NEGATIVE A UA PH DIPSTICK (test code = MAGED) 5.5 5.0-8.0 UA PROTEIN DIPSTICK (test code = PROU) 100 (2+) mg/dL NEGATIVE A UA UROBILINIOGEN DIPSTICK (test code = URO) Normal mg/dL NEGATIVE UA NITRITE DIPSTICK (test code = BHARATH) NEGATIVE NEGATIVE UA LEUKOCYTE ESTERASE W REFLEX (test code = LEUUR) NEGATIVE Ana/uL NEGATIVE UA WBC (test code = WBCU) 11-20 per HPF 0-5 A UA RBC (test code = RBCU) 11-20 #/HPF 0-5 A UA EPITHELIAL CELLS (test code = EPIU) FEW per HPF FEW UA BACTERIA (test code = BACU) FEW #/HPF NONE A UA HYALINE CAST (test code = HYALU) >20 #/LPF 0-5 A UA MUCUS (test code = MUCU) FEW #/LPF FEW Urine Source? Clean CatchARTERIAL BLOOD [id number] 08:19:00* Test Item Value Reference Range Interpretation Comments ARTERIAL BLOOD GAS PH (test code = PHA) 7.44 7.35-7.45 N ARTERIAL BLOOD GAS PCO2 (test code = PCO2A) < 11.9 mm Hg 35-45 LL Results called to and read back by dr espinosa 03/10/2019; by rashaad ARTERIAL BLOOD GAS PO2 (test code = PO2A) 131.1 mmHg 80-100 H ABG O2 SATURATION (test code = SATA) 97.5 % 90.0-98.0 N ABG TYPE (test code = TYPEA) Arterial FIO2 (test code = FIO2A) 28.0 ABG SITE (test code = SITEA) Rt BRACHIAL ARTERY HEMATOCRIT (test code = HCT/ABG) 20 % 35-47 L TOTAL HGB (test code = THB) 6.9 gram/dL 11.5-15.5 L HGB O2 SAT (test code = HBOSAT) 96.4 % 94.00-98.00 N CARBOXYHEMOGLOBIN (test code = HOHGBT) 0.3 %totalHg 0.5-1.5 LL Results called to and read back by dr espinosa 03/10/2019; by rashaad METHEMOGLOBIN (test code = METHGB) 0.8 % 0.0-1.50 N O2 CONTENT (test code = O2CT) 9.7 % vol 18.0-22.0 LL URINALYSIS [id number] 08:19:00* Test Item Value Reference Range Interpretation Comments UA COLOR (test code = COLU) YELLOW YELLOW UA APPEARANCE (test code = APPU) Cloudy CLEAR A UA GLUCOSE DIPSTICK (test code = DGLUU) NEGATIVE mg/dL NEGATIVE UA BILIRUBIN DIPSTICK (test code = BILU) NEGATIVE mg/dL NEGATIVE UA KETONE DIPSTICK (test code = KETU) 20 (1+) mg/dL NEGATIVE A UA SPECIFIC GRAVITY (test code = SGU) 1.019 1.001-1.035 UA BLOOD DIPSTICK (test code = JORGE) 0.2 mg/dL (2+) mg/dL NEGATIVE A UA PH DIPSTICK (test code = MAGED) 5.5 5.0-8.0 UA PROTEIN DIPSTICK (test code = PROU) 100 (2+) mg/dL NEGATIVE A UA UROBILINIOGEN DIPSTICK (test code = URO) Normal mg/dL NEGATIVE UA NITRITE DIPSTICK (test code = BHARATH) NEGATIVE NEGATIVE UA LEUKOCYTE ESTERASE W REFLEX (test code = LEUUR) NEGATIVE Ana/uL NEGATIVE UA WBC (test code = WBCU) per HPF 0-5 UA RBC (test code = RBCU) per HPF 0-5 UA EPITHELIAL CELLS (test code = EPIU) per HPF Few UA BACTERIA (test code = BACU) per HPF NONE Urine Source? Clean CatchCBC W/AUTO [id number] 08:01:00* Test Item Value Reference Range Interpretation Comments WHITE BLOOD CELL (test code = WBC) 13.7 K/mm3 4.5-12.5 H RED BLOOD CELL (test code = RBC) 2.08 mill/mm3 3.7-5.2 L HEMOGLOBIN (test code = HGB) 6.7 gram/dL 11.5-15.5 L HEMATOCRIT (test code = HCT) 22.7 % 36.0-46.0 L MEAN CELL VOLUME (test code = MCV) 109.1 fL 80-98 H MEAN CELL HGB (test code = MCH) 32.2 picogram 27.0-33.0 N MEAN CELL HGB CONCETRATION (test code = MCHC) 29.5 gram/dL 33.0-36. 0 L RED CELL DISTRIBUTION WIDTH (test code = RDW) 20.1 % 11.6-16. 2 H RED CELL DISTRIBUTION WIDTH SD (test code = RDW-SD) 79.7 fL 37 .0-51.0 H PLATELET COUNT (test code = PLT) 183 K/mm3 150-450 RESULT VERIFIED BY REPEAT ANALYSIS MEAN PLATELET VOLUME (test code = MPV) 11.2 fL 6.7-11.0 H NEUTROPHIL % (test code = NT%) 92.5 % 39.0-69.0 H IMMATURE GRANULOCYTE % (test code = IG%) 1.2 % 0.0-5.0 N LYMPHOCYTE % (test code = LY%) 2.6 % 25.0-55.0 L MONOCYTE % (test code = MO%) 3.5 % 0.0-10.0 N EOSINOPHIL % (test code = EO%) 0.0 % 0.0-5.0 N BASOPHIL % (test code = BA%) 0.2 % 0.0-1.0 N NUCLEATED RBC % (test code = NRBC%) 2.0 % 0-0 H NEUTROPHIL # (test code = NT#) 12.66 K/mm3 1.8-7.7 H IMMATURE GRANULOCYTE # (test code = IG#) 0.16 x10 3/uL 0-0.03 H LYMPHOCYTE # (test code = LY#) 0.36 K/mm3 1.0-5.0 L MONOCYTE # (test code = MO#) 0.48 K/mm3 0-0.8 N EOSINOPHIL # (test code = EO#) 0.00 K/mm3 0.0-0.5 N BASOPHIL # (test code = BA#) 0.03 K/mm3 0.0-0.2 N NUCLEATED RBC # (test code = NRBC#) 0.27 K/mm3 0.0-0.1 H MANUAL DIFF REQUIRED (test code = MDIFF) NO, ONLY SCAN NEEDED DIFFERENTIAL [id number] 08:01:00* Test Item Value Reference Range Interpretation Comments STAIN ACCEPTABILITY (test code = STN ACCEPTABLE) CABOT RINGS (test code = CAB) MORPHOLOGY COMMENT (test code = MOC) PLATELET ESTIMATE (test code = PLTEST) PLATELET MORPHOLOGY (test code = PLTMORPH) CBC W/AUTO [id number] 08:01:00* Test Item Value Reference Range Interpretation Comments WHITE BLOOD CELL (test code = WBC) 13.7 K/mm3 4.5-12.5 H RED BLOOD CELL (test code = RBC) 2.08 mill/mm3 3.7-5.2 L HEMOGLOBIN (test code = HGB) 6.7 gram/dL 11.5-15.5 L HEMATOCRIT (test code = HCT) 22.7 % 36.0-46.0 L MEAN CELL VOLUME (test code = MCV) 109.1 fL 80-98 H MEAN CELL HGB (test code = MCH) 32.2 picogram 27.0-33.0 N MEAN CELL HGB CONCETRATION (test code = MCHC) 29.5 gram/dL 33.0-36. 0 L RED CELL DISTRIBUTION WIDTH (test code = RDW) 20.1 % 11.6-16. 2 H RED CELL DISTRIBUTION WIDTH SD (test code = RDW-SD) 79.7 fL 37 .0-51.0 H PLATELET COUNT (test code = PLT) 183 K/mm3 150-450 RESULT VERIFIED BY REPEAT ANALYSIS MEAN PLATELET VOLUME (test code = MPV) 11.2 fL 6.7-11.0 H NEUTROPHIL % (test code = NT%) 92.5 % 39.0-69.0 H IMMATURE GRANULOCYTE % (test code = IG%) 1.2 % 0.0-5.0 N LYMPHOCYTE % (test code = LY%) 2.6 % 25.0-55.0 L MONOCYTE % (test code = MO%) 3.5 % 0.0-10.0 N EOSINOPHIL % (test code = EO%) 0.0 % 0.0-5.0 N BASOPHIL % (test code = BA%) 0.2 % 0.0-1.0 N NUCLEATED RBC % (test code = NRBC%) 2.0 % 0-0 H NEUTROPHIL # (test code = NT#) 12.66 K/mm3 1.8-7.7 H IMMATURE GRANULOCYTE # (test code = IG#) 0.16 x10 3/uL 0-0.03 H LYMPHOCYTE # (test code = LY#) 0.36 K/mm3 1.0-5.0 L MONOCYTE # (test code = MO#) 0.48 K/mm3 0-0.8 N EOSINOPHIL # (test code = EO#) 0.00 K/mm3 0.0-0.5 N BASOPHIL # (test code = BA#) 0.03 K/mm3 0.0-0.2 N NUCLEATED RBC # (test code = NRBC#) 0.27 K/mm3 0.0-0.1 H MANUAL DIFF REQUIRED (test code = MDIFF) NO, ONLY SCAN NEEDED DIFFERENTIAL [id number] 08:01:00* Test Item Value Reference Range Interpretation Comments STAIN ACCEPTABILITY (test code = STN ACCEPTABLE) CABOT RINGS (test code = CAB) MORPHOLOGY COMMENT (test code = MOC) PLATELET ESTIMATE (test code = PLTEST) PLATELET MORPHOLOGY (test code = PLTMORPH) CBC W/AUTO [id number] 08:01:00* Test Item Value Reference Range Interpretation Comments WHITE BLOOD CELL (test code = WBC) 13.7 K/mm3 4.5-12.5 H RED BLOOD CELL (test code = RBC) 2.08 mill/mm3 3.7-5.2 L HEMOGLOBIN (test code = HGB) 6.7 gram/dL 11.5-15.5 L HEMATOCRIT (test code = HCT) 22.7 % 36.0-46.0 L MEAN CELL VOLUME (test code = MCV) 109.1 fL 80-98 H MEAN CELL HGB (test code = MCH) 32.2 picogram 27.0-33.0 N MEAN CELL HGB CONCETRATION (test code = MCHC) 29.5 gram/dL 33.0-36. 0 L RED CELL DISTRIBUTION WIDTH (test code = RDW) 20.1 % 11.6-16. 2 H RED CELL DISTRIBUTION WIDTH SD (test code = RDW-SD) 79.7 fL 37 .0-51.0 H PLATELET COUNT (test code = PLT) 183 K/mm3 150-450 RESULT VERIFIED BY REPEAT ANALYSIS MEAN PLATELET VOLUME (test code = MPV) 11.2 fL 6.7-11.0 H NEUTROPHIL % (test code = NT%) 92.5 % 39.0-69.0 H IMMATURE GRANULOCYTE % (test code = IG%) 1.2 % 0.0-5.0 N LYMPHOCYTE % (test code = LY%) 2.6 % 25.0-55.0 L MONOCYTE % (test code = MO%) 3.5 % 0.0-10.0 N EOSINOPHIL % (test code = EO%) 0.0 % 0.0-5.0 N BASOPHIL % (test code = BA%) 0.2 % 0.0-1.0 N NUCLEATED RBC % (test code = NRBC%) 2.0 % 0-0 H NEUTROPHIL # (test code = NT#) 12.66 K/mm3 1.8-7.7 H IMMATURE GRANULOCYTE # (test code = IG#) 0.16 x10 3/uL 0-0.03 H LYMPHOCYTE # (test code = LY#) 0.36 K/mm3 1.0-5.0 L MONOCYTE # (test code = MO#) 0.48 K/mm3 0-0.8 N EOSINOPHIL # (test code = EO#) 0.00 K/mm3 0.0-0.5 N BASOPHIL # (test code = BA#) 0.03 K/mm3 0.0-0.2 N NUCLEATED RBC # (test code = NRBC#) 0.27 K/mm3 0.0-0.1 H MANUAL DIFF REQUIRED (test code = MDIFF) NO, ONLY SCAN NEEDED DIFFERENTIAL [id number] 08:01:00* Test Item Value Reference Range Interpretation Comments STAIN ACCEPTABILITY (test code = STN ACCEPTABLE) MORPHOLOGY COMMENT (test code = MOC) PLATELET ESTIMATE (test code = PLTEST) PLATELET MORPHOLOGY (test code = PLTMORPH) CBC W/AUTO [id number] 08:01:00* Test Item Value Reference Range Interpretation Comments WHITE BLOOD CELL (test code = WBC) 13.7 K/mm3 4.5-12.5 H RED BLOOD CELL (test code = RBC) 2.08 mill/mm3 3.7-5.2 L HEMOGLOBIN (test code = HGB) 6.7 gram/dL 11.5-15.5 L HEMATOCRIT (test code = HCT) 22.7 % 36.0-46.0 L MEAN CELL VOLUME (test code = MCV) 109.1 fL 80-98 H MEAN CELL HGB (test code = MCH) 32.2 picogram 27.0-33.0 N MEAN CELL HGB CONCETRATION (test code = MCHC) 29.5 gram/dL 33.0-36. 0 L RED CELL DISTRIBUTION WIDTH (test code = RDW) 20.1 % 11.6-16. 2 H RED CELL DISTRIBUTION WIDTH SD (test code = RDW-SD) 79.7 fL 37 .0-51.0 H PLATELET COUNT (test code = PLT) 183 K/mm3 150-450 RESULT VERIFIED BY REPEAT ANALYSIS MEAN PLATELET VOLUME (test code = MPV) 11.2 fL 6.7-11.0 H NEUTROPHIL % (test code = NT%) 92.5 % 39.0-69.0 H IMMATURE GRANULOCYTE % (test code = IG%) 1.2 % 0.0-5.0 N LYMPHOCYTE % (test code = LY%) 2.6 % 25.0-55.0 L MONOCYTE % (test code = MO%) 3.5 % 0.0-10.0 N EOSINOPHIL % (test code = EO%) 0.0 % 0.0-5.0 N BASOPHIL % (test code = BA%) 0.2 % 0.0-1.0 N NUCLEATED RBC % (test code = NRBC%) 2.0 % 0-0 H NEUTROPHIL # (test code = NT#) 12.66 K/mm3 1.8-7.7 H IMMATURE GRANULOCYTE # (test code = IG#) 0.16 x10 3/uL 0-0.03 H LYMPHOCYTE # (test code = LY#) 0.36 K/mm3 1.0-5.0 L MONOCYTE # (test code = MO#) 0.48 K/mm3 0-0.8 N EOSINOPHIL # (test code = EO#) 0.00 K/mm3 0.0-0.5 N BASOPHIL # (test code = BA#) 0.03 K/mm3 0.0-0.2 N NUCLEATED RBC # (test code = NRBC#) 0.27 K/mm3 0.0-0.1 H MANUAL DIFF REQUIRED (test code = MDIFF) NO, ONLY SCAN NEEDED DIFFERENTIAL [id number] 08:01:00* Test Item Value Reference Range Interpretation Comments STAIN ACCEPTABILITY (test code = STN ACCEPTABLE) CABOT RINGS (test code = CAB) MORPHOLOGY COMMENT (test code = MOC) PLATELET ESTIMATE (test code = PLTEST) PLATELET MORPHOLOGY (test code = PLTMORPH) [id number] 07:25:00* Test Item Value Reference Range Interpretation Comments GLUBED (test code = GLUBED) 80 mg/dL 74-106 N Performed by certified threader operator at [facility] LACTIC [id number] 06:38:00* Test Item Value Reference Range Interpretation Comments LACTIC ACID (test code = LACT) 19.2 mmol/L 0.4-1.9 HH Results called to [id number] by V.[email or web address] 03/10/19 0635Critical results verified and read back by Nurse? Y LACTIC [id number] 03:46:00* Test Item Value Reference Range Interpretation Comments LACTIC ACID (test code = LACT) 17.2 mmol/L 0.4-1.9 Results called to [id number] MIKE by [email or web address] 03/10/19 0345Critical results verified and read back by Nurse? Y BASIC METABOLIC [id number] 03:45:00* Test Item Value Reference Range Interpretation Comments SODIUM (test code = NA) 142 mmol/L 136-145 RESU LT VERIFIED BY REPEAT ANALYSIS POTASSIUM (test code = K) 3.3 mmol/L 3.5-5.1 L CHLORIDE (test code = CL) 107.0 mmol/L 98-107 N CARBON DIOXIDE (test code = CO2) 6.0 mmol/L 21-32 L ANION GAP (test code = GAP) 32.3 10-20 H GLUCOSE (test code = GLU) 51 mg/dL 74-106 L BLOOD UREA NITROGEN (test code = BUN) 13 mg/dL 7-18 N GLOMERULAR FILTRATION RATE (test code = GFR) 35 mL/min >=60 Estimated GFR by using Modified MDRD formula.Chronic kidney disease is defined as either kidney damageor GFR <60 mL/min/1.73 m2 for >3 months. CREATININE (test code = CREAT) 1.50 mg/dL 0.55-1.02 H Note change in reference range due to change in reagent. BUN/CREATININE RATIO (test code = BUN/CREA) 8.7 10-20 L CALCIUM (test code = CA) 8.0 mg/dL 8.5-10.1 L ARTERIAL BLOOD [id number] 03:32:00* Test Item Value Reference Range Interpretation Comments ARTERIAL BLOOD GAS PH (test code = PHA) 7.28 7.35-7.45 L ARTERIAL BLOOD GAS PCO2 (test code = PCO2A) < 11.9 mm Hg 35-45 LL Results called to and read back by KRYSTAL Wilde 03:31 - 03/10/2019; by COOPER MCCULLOUGH, GISELE ARTERIAL BLOOD GAS PO2 (test code = PO2A) 135.9 mmHg 80-100 H ABG O2 SATURATION (test code = SATA) 97.3 % 90.0-98.0 N ABG TYPE (test code = TYPEA) Arterial FIO2 (test code = FIO2A) 21.0 ABG SITE (test code = SITEA) Rt RADIAL ARTERY MODIFIED ALLENS (test code = MODALL) Yes CHECK PERFORMED SODIUM (test code = NA/ABG) 134.9 mEq/L 135-148 L POTASSIUM (test code = K/ABG) 3.0 mEq/L 3.5-4.5 L CHLORIDE (test code = CL/ABG) 105 mEq/L 98-106 N GLUCOSE (test code = GLU/ABG) 79 mg/dL 74-99 N HEMATOCRIT (test code = HCT/ABG) 25 % 35-47 L IONIZED CALCIUM (test code = CAIABG) 1.07 mmol/L 1.1-1.37 L TOTAL HGB (test code = THB) 8.4 gram/dL 11.5-15.5 L HGB O2 SAT (test code = HBOSAT) 96.4 % 94.00-98.00 N CARBOXYHEMOGLOBIN (test code = HOHGBT) 0.2 %totalHg 0.5-1.5 LL Results called to and read back by KRYSTAL Wilde 03:31 - 03/10/2019; by COOPER MCCULLOUGH RRT METHEMOGLOBIN (test code = METHGB) 0.7 % 0.0-1.50 N O2 CONTENT (test code = O2CT) 11.7 % vol 18.0-22.0 L - CT ABD PELVIS W/O [id number] 01:23:00 Name: OLEG STEINER [facility] : 1960 Age/S: 58 / F [address] [facility] Unit #: [id number] Loc: [place] [address] Phys: Krystal Adorno Acct: [id number] Dis Date: Status: ADM IN PHONE #: [phone] Exam Date: 03/10/2019 0209 FAX #: [phone] Reason: abdominal pain, sepsis, open abd wound EXAMS: CPT CODE: [id number] CT ABD PELVIS W/O CONT [address] CT abdomen and pelvis with IV contrast. [...] 1 Signed Report (CONTINUED) Name: OLEG STEINER [facility] : 1960 Age/S: 58 / F [address] [facility] Unit #: [id number] Loc: [place] [address] Phys: Krystal Adorno Acct: [id number] Dis Date: Status: ADM IN PHONE #: [phone] Exam Date: 03/10/2019208 FAX #: [phone] Reason: abdominal pain, sepsis, open abd wound EXAMS: CPT CODE: [id number] CT ABD PELVIS W/O CONT 78682 < Continued> noted, nonspecific Additional findings as detailed above at 0123 Reported and signed by: Tabitha Giordano M.D. CC: Precious Teague MD; Krystal Adorno Technologist:RT Rahul(R)(CT) CTDI: DLP: Trnscb Date/Time: 03/10/2019 (0123) VonR.[email or web address] Orig Print D/T: S: 03/10/2019 (208) PAGE 2 Signed Report ARTERIAL BLOOD [id number] 23:24:00* Test Item Value Reference Range Interpretation Comments ARTERIAL BLOOD GAS PH (test code = PHA) 7.22 7.35-7.45 L ARTERIAL BLOOD GAS PCO2 (test code = PCO2A) 9.9 mm Hg 35-45 LL Results called to and read back by Avinash - 03/09/2019; by Jose Angel ARTERIAL BLOOD GAS PO2 (test code = PO2A) 73.0 mmHg 80-100 L BICARBONATE TOTAL HCO3 (test code = HCO3) 3.9 mmol/L 23.0-27.0 LL Results called to and read back by Avinash 03/09/2019; by Jose Angel BASE EXCESS (test code = DIYA) -20.7 mmol/L -3.0-5.0 LL Results called to and read back by Avinash 03/09/2019; by Jose Angel ABG O2 SATURATION (test code = SATA) 92.3 % 90.0-98.0 N ABG TYPE (test code = TYPEA) Arterial FIO2 (test code = FIO2A) 21.0 ABG SITE (test code = SITEA) Rt BRACHIAL ARTERY LACTIC [id number] 23:14:00* Test Item Value Reference Range Interpretation Comments LACTIC ACID (test code = LACT) 15.5 mmol/L 0.4-1.9 Results called to [id number] by V.[email or web address] 03/09/19 2311Critical results verified and read back by Nurse? Y CBC W/AUTO [id number] 22:44:00* Test Item Value Reference Range Interpretation Comments WHITE BLOOD CELL (test code = WBC) 16.3 K/mm3 4.5-12.5 H RED BLOOD CELL (test code = RBC) 2.71 mill/mm3 3.7-5.2 L HEMOGLOBIN (test code = HGB) 8.6 gram/dL 11.5-15.5 L HEMATOCRIT (test code = HCT) 29.1 % 36.0-46.0 L MEAN CELL VOLUME (test code = MCV) 107.4 fL 80-98 H MEAN CELL HGB (test code = MCH) 31.7 picogram 27.0-33.0 N MEAN CELL HGB CONCETRATION (test code = MCHC) 29.6 gram/dL 33.0-36. 0 L RED CELL DISTRIBUTION WIDTH (test code = RDW) 20.4 % 11.6-16. 2 H RED CELL DISTRIBUTION WIDTH SD (test code = RDW-SD) 80.0 fL 37 .0-51.0 H PLATELET COUNT (test code = PLT) 301 K/mm3 150-450 N MEAN PLATELET VOLUME (test code = MPV) 10.9 fL 6.7-11.0 N NEUTROPHIL % (test code = NT%) 87.1 % 39.0-69.0 H IMMATURE GRANULOCYTE % (test code = IG%) 2.7 % 0.0-5.0 N LYMPHOCYTE % (test code = LY%) 2.7 % 25.0-55.0 L MONOCYTE % (test code = MO%) 7.4 % 0.0-10.0 N EOSINOPHIL % (test code = EO%) 0.0 % 0.0-5.0 N BASOPHIL % (test code = BA%) 0.1 % 0.0-1.0 N NUCLEATED RBC % (test code = NRBC%) 2.6 % 0-0 H NEUTROPHIL # (test code = NT#) 14.19 K/mm3 1.8-7.7 H IMMATURE GRANULOCYTE # (test code = IG#) 0.44 x10 3/uL 0-0.03 H LYMPHOCYTE # (test code = LY#) 0.44 K/mm3 1.0-5.0 L MONOCYTE # (test code = MO#) 1.20 K/mm3 0-0.8 H EOSINOPHIL # (test code = EO#) 0.00 K/mm3 0.0-0.5 N BASOPHIL # (test code = BA#) 0.02 K/mm3 0.0-0.2 N NUCLEATED RBC # (test code = NRBC#) 0.42 K/mm3 0.0-0.1 H MANUAL DIFF REQUIRED (test code = MDIFF) NO, ONLY SCAN NEEDED DIFFERENTIAL [id number] 22:44:00* Test Item Value Reference Range Interpretation Comments STAIN ACCEPTABILITY (test code = STN ACCEPTABLE) STAIN ACCEPTABLE HYPOCHROMIA (test code = HYPO) 2+ POIKILOCYTOSIS (test code = POIK) 3+ ANISOCYTOSIS (test code = ANISO) 1+ MACROCYTOSIS (test code = MACR) 1+ CRENATED CELLS (test code = CREN) 3+ VACUOLATED NEUTROPHILS (test code = VN) 2+ PLATELET ESTIMATE (test code = PLTEST) ADEQUATE PLATELET MORPHOLOGY (test code = PLTMORPH) SIZE VARIABLE BASIC METABOLIC [id number] 22:32:00* Test Item Value Reference Range Interpretation Comments SODIUM (test code = NA) 137 mmol/L 136-145 N POTASSIUM (test code = K) 3.3 mmol/L 3.5-5.1 L CHLORIDE (test code = CL) 102.0 mmol/L 98-107 N CARBON DIOXIDE (test code = CO2) 7.0 mmol/L 21-32 L ANION GAP (test code = GAP) 31.3 10-20 H GLUCOSE (test code = GLU) 128 mg/dL 74-106 H BLOOD UREA NITROGEN (test code = BUN) 14 mg/dL 7-18 N GLOMERULAR FILTRATION RATE (test code = GFR) 29 mL/min >=60 Estimated GFR by using Modified MDRD formula.Chronic kidney disease is defined as either kidney damageor GFR <60 mL/min/1.73 m2 for >3 months. CREATININE (test code = CREAT) 1.80 mg/dL 0.55-1.02 H Note change in reference range due to change in reagent. BUN/CREATININE RATIO (test code = BUN/CREA) 7.8 10-20 L CALCIUM (test code = CA) 8.6 mg/dL 8.5-10.1 N HEPATIC FUNCTION [id number] 22:32:00* Test Item Value Reference Range Interpretation Comments TOTAL PROTEIN (test code = PROT) 6.0 gram/dL 6.4-8.2 L ALBUMIN (test code = ALB) 1.7 g/dL 3.4-5.0 L GLOBULIN (test code = GLOB) 4.3 gram/dL 2.7-4.2 H ALBUMIN/GLOBULIN RATIO (test code = A/G) 0.4 0.75-1.50 L BILIRUBIN TOTAL (test code = BILT) 1.40 mg/dL 0.0-1.0 H BILIRUBIN DIRECT (test code = BILD) 0.93 mg/dL 0.0-0.20 H SGOT/AST (test code = AST) 205 IUnit/L 15-37 H SGPT/ALT (test code = ALT) 66 IUnit/L 12-78 N ALKALINE PHOSPHATASE TOTAL (test code = ALKP) 92 IUnit/L 45-117 N Note change in reference range due to change in reagent. [id number] 22:32:00* Test Item Value Reference Range Interpretation Comments TROPONIN-I (test code = TROPI) 0.054 ng/mL 0-0.045 HH Results called to [id number] by JOSE ROBERTO 03/09/19 2232Critical results verified and read back by Nurse? Y BASIC METABOLIC [id number] 22:23:00* Test Item Value Reference Range Interpretation Comments SODIUM (test code = NA) 137 mmol/L 136-145 N POTASSIUM (test code = K) 3.3 mmol/L 3.5-5.1 L CHLORIDE (test code = CL) 102.0 mmol/L 98-107 N CARBON DIOXIDE (test code = CO2) mmol/L 21-32 ANION GAP (test code = GAP) 10-20 GLUCOSE (test code = GLU) mg/dL 74-106 BLOOD UREA NITROGEN (test code = BUN) mg/dL 7-18 GLOMERULAR FILTRATION RATE (test code = GFR) mL/min >=60 CREATININE (test code = CREAT) mg/dL 0.55-1.02 BUN/CREATININE RATIO (test code = BUN/CREA) 10-20 CALCIUM (test code = CA) mg/dL 8.5-10.1 HEPATIC FUNCTION [id number] 22:23:00* Test Item Value Reference Range Interpretation Comments TOTAL PROTEIN (test code = PROT) gram/dL 6.4-8.2 ALBUMIN (test code = ALB) g/dL 3.4-5.0 GLOBULIN (test code = GLOB) gram/dL 2.7-4.2 ALBUMIN/GLOBULIN RATIO (test code = A/G) 0.75-1.50 BILIRUBIN TOTAL (test code = BILT) mg/dL 0.0-1.0 BILIRUBIN DIRECT (test code = BILD) mg/dL 0.0-0.20 SGOT/AST (test code = AST) IUnit/L 15-37 SGPT/ALT (test code = ALT) IUnit/L 12-78 ALKALINE PHOSPHATASE TOTAL (test code = ALKP) IUnit/L 45-117 [id number] 22:23:00* Test Item Value Reference Range Interpretation Comments TROPONIN-I (test code = TROPI) ng/mL 0-0.045 PROTHROMBIN [id number] 22:22:00* Test Item Value Reference Range Interpretation Comments PROTHROMBIN TIME PATIENT (test code = PTP) 20.5 seconds 9.0-14.0 H INTERNATIONAL NORMAL RATIO (test code = INR) 1.8 0.8-1.2 H The therapeutic range for oral anticoagulant therapy [...] (2.5-3.5) IS PATIENT ON ANTICOAGULANTS? NTHROMBOPLASTIN TIME [id number] 22:22:00* Test Item Value Reference Range Interpretation Comments THROMBOPLASTIN TIME PARTIAL (test code = PTT) 34.2 seconds 25.0-36. 5 N IS PATIENT ON ANTICOAGULANTS? N- XR CHEST 1 [id number] 22:18:00 FAX: Nikki Degroot DO [place]: [address]: REG Name: OLEG UMANZOR [facility] : [birth year] Age/S: 58/F [address] [facility] Unit #: [id number] Loc: D[place] [address] Phys: Nikki Degroot DO Acct: [id number] Dis Date: Status: REG ER PHONE #: [phone] Exam Date: 03/09/20192199 FAX #: [phone] Reason: Altered Mental Status EXAMS: CPT CODE: [id number] XR CHEST 1 V 39359 HISTORY: Altered Mental Status TECHNIQUE: AP chest [...] D.O. CC: Yamilet Degroot DO Technologist: RT KAREN(R) Trnscrd Date/Time/By: 03/09/2019 (2217) : By: [email or web address] Orig Print D/T: S: 03/09/2019 (8677) PAGE 1 Signed Report - CT HEAD/BRAIN W/O [id number] 22:17:00 Name: OLEG STEINER [facility] : 1960 Age/S: 58 / F [address] [facility] Unit #: [id number] Loc: DERRICK [place] [address] Phys: Nikki Degroot DO Acct: [id number] Dis Date: Status: REG ER PHONE #: [phone] Exam Date: 03/09/20192199 FAX #: [phone] Reason: Altered Mental Status EXAMS: CPT CODE: [id number] CT HEAD/BRAIN W/O CONT 42771 HISTORY: Altered Mental Status TECHNIQUE: Noncontrast 2.5 [...] RT(R)(CT); ... CTDI: DLP: Trnscb Date/Time: 03/09/2019 (2216) [email or web address] Orig Print D/T: S: 03/09/2019 (4) PAGE 1 Signed Report CBC W/AUTO [id number] 22:09:00* Test Item Value Reference Range Interpretation Comments WHITE BLOOD CELL (test code = WBC) 16.3 K/mm3 4.5-12.5 H RED BLOOD CELL (test code = RBC) 2.71 mill/mm3 3.7-5.2 L HEMOGLOBIN (test code = HGB) 8.6 gram/dL 11.5-15.5 L HEMATOCRIT (test code = HCT) 29.1 % 36.0-46.0 L MEAN CELL VOLUME (test code = MCV) 107.4 fL 80-98 H MEAN CELL HGB (test code = MCH) 31.7 picogram 27.0-33.0 N MEAN CELL HGB CONCETRATION (test code = MCHC) 29.6 gram/dL 33.0-36. 0 L RED CELL DISTRIBUTION WIDTH (test code = RDW) 20.4 % 11.6-16. 2 H RED CELL DISTRIBUTION WIDTH SD (test code = RDW-SD) 80.0 fL 37 .0-51.0 H PLATELET COUNT (test code = PLT) 301 K/mm3 150-450 N MEAN PLATELET VOLUME (test code = MPV) 10.9 fL 6.7-11.0 N NEUTROPHIL % (test code = NT%) 87.1 % 39.0-69.0 H IMMATURE GRANULOCYTE % (test code = IG%) 2.7 % 0.0-5.0 N LYMPHOCYTE % (test code = LY%) 2.7 % 25.0-55.0 L MONOCYTE % (test code = MO%) 7.4 % 0.0-10.0 N EOSINOPHIL % (test code = EO%) 0.0 % 0.0-5.0 N BASOPHIL % (test code = BA%) 0.1 % 0.0-1.0 N NUCLEATED RBC % (test code = NRBC%) 2.6 % 0-0 H NEUTROPHIL # (test code = NT#) 14.19 K/mm3 1.8-7.7 H IMMATURE GRANULOCYTE # (test code = IG#) 0.44 x10 3/uL 0-0.03 H LYMPHOCYTE # (test code = LY#) 0.44 K/mm3 1.0-5.0 L MONOCYTE # (test code = MO#) 1.20 K/mm3 0-0.8 H EOSINOPHIL # (test code = EO#) 0.00 K/mm3 0.0-0.5 N BASOPHIL # (test code = BA#) 0.02 K/mm3 0.0-0.2 N NUCLEATED RBC # (test code = NRBC#) 0.42 K/mm3 0.0-0.1 H MANUAL DIFF REQUIRED (test code = MDIFF) NO, ONLY SCAN NEEDED DIFFERENTIAL [id number] 22:09:00* Test Item Value Reference Range Interpretation Comments STAIN ACCEPTABILITY (test code = STN ACCEPTABLE) MORPHOLOGY COMMENT (test code = MOC) PLATELET ESTIMATE (test code = PLTEST) PLATELET MORPHOLOGY (test code = PLTMORPH) CBC W/AUTO [id number] 22:08:00* Test Item Value Reference Range Interpretation Comments WHITE BLOOD CELL (test code = WBC) 16.3 K/mm3 4.5-12.5 H RED BLOOD CELL (test code = RBC) 2.71 mill/mm3 3.7-5.2 L HEMOGLOBIN (test code = HGB) 8.6 gram/dL 11.5-15.5 L HEMATOCRIT (test code = HCT) 29.1 % 36.0-46.0 L MEAN CELL VOLUME (test code = MCV) 107.4 fL 80-98 H MEAN CELL HGB (test code = MCH) 31.7 picogram 27.0-33.0 N MEAN CELL HGB CONCETRATION (test code = MCHC) 29.6 gram/dL 33.0-36. 0 L RED CELL DISTRIBUTION WIDTH (test code = RDW) 20.4 % 11.6-16. 2 H RED CELL DISTRIBUTION WIDTH SD (test code = RDW-SD) 80.0 fL 37 .0-51.0 H PLATELET COUNT (test code = PLT) 301 K/mm3 150-450 N MEAN PLATELET VOLUME (test code = MPV) 10.9 fL 6.7-11.0 N NEUTROPHIL % (test code = NT%) 87.1 % 39.0-69.0 H IMMATURE GRANULOCYTE % (test code = IG%) 2.7 % 0.0-5.0 N LYMPHOCYTE % (test code = LY%) 2.7 % 25.0-55.0 L MONOCYTE % (test code = MO%) 7.4 % 0.0-10.0 N EOSINOPHIL % (test code = EO%) 0.0 % 0.0-5.0 N BASOPHIL % (test code = BA%) 0.1 % 0.0-1.0 N NUCLEATED RBC % (test code = NRBC%) 2.6 % 0-0 H NEUTROPHIL # (test code = NT#) 14.19 K/mm3 1.8-7.7 H IMMATURE GRANULOCYTE # (test code = IG#) 0.44 x10 3/uL 0-0.03 H LYMPHOCYTE # (test code = LY#) 0.44 K/mm3 1.0-5.0 L MONOCYTE # (test code = MO#) 1.20 K/mm3 0-0.8 H EOSINOPHIL # (test code = EO#) 0.00 K/mm3 0.0-0.5 N BASOPHIL # (test code = BA#) 0.02 K/mm3 0.0-0.2 N NUCLEATED RBC # (test code = NRBC#) 0.42 K/mm3 0.0-0.1 H MANUAL DIFF REQUIRED (test code = MDIFF) NO, ONLY SCAN NEEDED DIFFERENTIAL [id number] 22:08:00* Test Item Value Reference Range Interpretation Comments STAIN ACCEPTABILITY (test code = STN ACCEPTABLE) CABOT RINGS (test code = CAB) MORPHOLOGY COMMENT (test code = MOC) PLATELET ESTIMATE (test code = PLTEST) PLATELET MORPHOLOGY (test code = PLTMORPH) CBC W/AUTO [id number] 22:08:00* Test Item Value Reference Range Interpretation Comments WHITE BLOOD CELL (test code = WBC) 16.3 K/mm3 4.5-12.5 H RED BLOOD CELL (test code = RBC) 2.71 mill/mm3 3.7-5.2 L HEMOGLOBIN (test code = HGB) 8.6 gram/dL 11.5-15.5 L HEMATOCRIT (test code = HCT) 29.1 % 36.0-46.0 L MEAN CELL VOLUME (test code = MCV) 107.4 fL 80-98 H MEAN CELL HGB (test code = MCH) 31.7 picogram 27.0-33.0 N MEAN CELL HGB CONCETRATION (test code = MCHC) 29.6 gram/dL 33.0-36. 0 L RED CELL DISTRIBUTION WIDTH (test code = RDW) 20.4 % 11.6-16. 2 H RED CELL DISTRIBUTION WIDTH SD (test code = RDW-SD) 80.0 fL 37 .0-51.0 H PLATELET COUNT (test code = PLT) 301 K/mm3 150-450 N MEAN PLATELET VOLUME (test code = MPV) 10.9 fL 6.7-11.0 N NEUTROPHIL % (test code = NT%) 87.1 % 39.0-69.0 H IMMATURE GRANULOCYTE % (test code = IG%) 2.7 % 0.0-5.0 N LYMPHOCYTE % (test code = LY%) 2.7 % 25.0-55.0 L MONOCYTE % (test code = MO%) 7.4 % 0.0-10.0 N EOSINOPHIL % (test code = EO%) 0.0 % 0.0-5.0 N BASOPHIL % (test code = BA%) 0.1 % 0.0-1.0 N NUCLEATED RBC % (test code = NRBC%) 2.6 % 0-0 H NEUTROPHIL # (test code = NT#) 14.19 K/mm3 1.8-7.7 H IMMATURE GRANULOCYTE # (test code = IG#) 0.44 x10 3/uL 0-0.03 H LYMPHOCYTE # (test code = LY#) 0.44 K/mm3 1.0-5.0 L MONOCYTE # (test code = MO#) 1.20 K/mm3 0-0.8 H EOSINOPHIL # (test code = EO#) 0.00 K/mm3 0.0-0.5 N BASOPHIL # (test code = BA#) 0.02 K/mm3 0.0-0.2 N NUCLEATED RBC # (test code = NRBC#) 0.42 K/mm3 0.0-0.1 H MANUAL DIFF REQUIRED (test code = MDIFF) NO, ONLY SCAN NEEDED DIFFERENTIAL [id number] 22:08:00* Test Item Value Reference Range Interpretation Comments STAIN ACCEPTABILITY (test code = STN ACCEPTABLE) MORPHOLOGY COMMENT (test code = MOC) PLATELET ESTIMATE (test code = PLTEST) PLATELET MORPHOLOGY (test code = PLTMORPH) CBC W/AUTO [id number] 22:08:00* Test Item Value Reference Range Interpretation Comments WHITE BLOOD CELL (test code = WBC) 16.3 K/mm3 4.5-12.5 H RED BLOOD CELL (test code = RBC) 2.71 mill/mm3 3.7-5.2 L HEMOGLOBIN (test code = HGB) 8.6 gram/dL 11.5-15.5 L HEMATOCRIT (test code = HCT) 29.1 % 36.0-46.0 L MEAN CELL VOLUME (test code = MCV) 107.4 fL 80-98 H MEAN CELL HGB (test code = MCH) 31.7 picogram 27.0-33.0 N MEAN CELL HGB CONCETRATION (test code = MCHC) 29.6 gram/dL 33.0-36. 0 L RED CELL DISTRIBUTION WIDTH (test code = RDW) 20.4 % 11.6-16. 2 H RED CELL DISTRIBUTION WIDTH SD (test code = RDW-SD) 80.0 fL 37 .0-51.0 H PLATELET COUNT (test code = PLT) 301 K/mm3 150-450 N MEAN PLATELET VOLUME (test code = MPV) 10.9 fL 6.7-11.0 N NEUTROPHIL % (test code = NT%) 87.1 % 39.0-69.0 H IMMATURE GRANULOCYTE % (test code = IG%) 2.7 % 0.0-5.0 N LYMPHOCYTE % (test code = LY%) 2.7 % 25.0-55.0 L MONOCYTE % (test code = MO%) 7.4 % 0.0-10.0 N EOSINOPHIL % (test code = EO%) 0.0 % 0.0-5.0 N BASOPHIL % (test code = BA%) 0.1 % 0.0-1.0 N NUCLEATED RBC % (test code = NRBC%) 2.6 % 0-0 H NEUTROPHIL # (test code = NT#) 14.19 K/mm3 1.8-7.7 H IMMATURE GRANULOCYTE # (test code = IG#) 0.44 x10 3/uL 0-0.03 H LYMPHOCYTE # (test code = LY#) 0.44 K/mm3 1.0-5.0 L MONOCYTE # (test code = MO#) 1.20 K/mm3 0-0.8 H EOSINOPHIL # (test code = EO#) 0.00 K/mm3 0.0-0.5 N BASOPHIL # (test code = BA#) 0.02 K/mm3 0.0-0.2 N NUCLEATED RBC # (test code = NRBC#) 0.42 K/mm3 0.0-0.1 H MANUAL DIFF REQUIRED (test code = MDIFF) NO, ONLY SCAN NEEDED DIFFERENTIAL [id number] 22:08:00* Test Item Value Reference Range Interpretation Comments STAIN ACCEPTABILITY (test code = STN ACCEPTABLE) CABOT RINGS (test code = CAB) MORPHOLOGY COMMENT (test code = MOC) PLATELET ESTIMATE (test code = PLTEST) PLATELET MORPHOLOGY (test code = PLTMORPH) [id number] 21:43:00* Test Item Value Reference Range Interpretation Comments GLUBED (test code = GLUBED) 102 mg/dL 74-106 N Performed by certified threader operator at [facility] PROTHROMBIN [id number] 08:05:00* Test Item Value Reference Range Interpretation Comments PROTHROMBIN TIME PATIENT (test code = PTP) 18.8 seconds 9.0-14.0 H INTERNATIONAL NORMAL RATIO (test code = INR) 1.6 0.8-1.2 H The therapeutic range for oral anticoagulant therapy [...] 2019-03-04 10:49:00* Test Item Value Reference Range Interpretation Comments PROTHROMBIN TIME PATIENT (test code = PTP) 24.9 seconds 9.0-14.0 H INTERNATIONAL NORMAL RATIO (test code = INR) 2.1 0.8-1.2 H The therapeutic range for oral anticoagulant therapy [...] 2019-03-03 10:59:00* Test Item Value Reference Range Interpretation Comments HEMOGLOBIN (test code = HGB) 8.3 gram/dL 11.5-15.5 L HEMATOCRIT (test code = HCT) 25.3 % 36.0-46.0 L PROTHROMBIN [id number] 10:52:00* Test Item Value Reference Range Interpretation Comments PROTHROMBIN TIME PATIENT (test code = PTP) 85.8 seconds 9.0-14.0 H INTERNATIONAL NORMAL RATIO (test code = INR) 7.3 0.8-1.2 HH RESULT VERIFIED BY REPEAT ANALYSISCritical results verified [...] valves (2.5-3.5) IS PATIENT ON ANTICOAGULANTS? NPROTHROMBIN [id number] 21:28:00* Test Item Value Reference Range Interpretation Comments PROTHROMBIN TIME PATIENT (test code = PTP) 141.7 seconds 9.0-14.0 H RESULT VERIFIED BY REPEAT ANALYSIS RESULTS CALLED TO [id number] BY [employer] 03/02/197 INTERNATIONAL NORMAL RATIO (test code = INR) 12.0 0.8-1.2 HH Results called to [id number] by [employer] 03/02/19 2126Critical results verified and read [...] (2.5-3.5) IS PATIENT ON ANTICOAGULANTS? NTHROMBOPLASTIN TIME [id number] 21:28:00* Test Item Value Reference Range Interpretation Comments THROMBOPLASTIN TIME PARTIAL (test code = PTT) 75.0 seconds 25.0-36. 5 H IS PATIENT ON ANTICOAGULANTS? NPROTHROMBIN [id number] 21:27:00* Test Item Value Reference Range Interpretation Comments PROTHROMBIN TIME PATIENT (test code = PTP) 141.7 seconds 9.0-14.0 H RESULTS CALLED TO [id number] BY [employer] 03/02/197 INTERNATIONAL NORMAL RATIO (test code = INR) 12.0 0.8-1.2 HH Results called to [id number] by [facility] 03/02/19 2126Critical results verified and read [...] (2.5-3.5) IS PATIENT ON ANTICOAGULANTS? NTHROMBOPLASTIN TIME [id number] 21:27:00* Test Item Value Reference Range Interpretation Comments THROMBOPLASTIN TIME PARTIAL (test code = PTT) 75.0 seconds 25.0-36. 5 H IS PATIENT ON ANTICOAGULANTS? NBASIC METABOLIC [id number] 21:17:00* Test Item Value Reference Range Interpretation Comments SODIUM (test code = NA) 137 mmol/L 136-145 N POTASSIUM (test code = K) 3.5 mmol/L 3.5-5.1 N CHLORIDE (test code = CL) 104.0 mmol/L 98-107 N CARBON DIOXIDE (test code = CO2) 23.0 mmol/L 21-32 N ANION GAP (test code = GAP) 13.5 10-20 N GLUCOSE (test code = GLU) 80 mg/dL 74-106 N BLOOD UREA NITROGEN (test code = BUN) 10 mg/dL 7-18 N GLOMERULAR FILTRATION RATE (test code = GFR) > 60 mL/min >=60 Estimated GFR by using Modified MDRD formula.Chronic kidney disease is defined as either kidney damageor GFR <60 mL/min/1.73 m2 for >3 months. CREATININE (test code = CREAT) 0.60 mg/dL 0.55-1.02 N Note change in reference range due to change in reagent. BUN/CREATININE RATIO (test code = BUN/CREA) 16.7 10-20 N CALCIUM (test code = CA) 8.9 mg/dL 8.5-10.1 N BILIRUBIN [id number] 21:17:00* Test Item Value Reference Range Interpretation Comments BILIRUBIN TOTAL (test code = BILT) 0.80 mg/dL 0.0-1.0 N [id number] 21:17:00* Test Item Value Reference Range Interpretation Comments MAGNESIUM (test code = MAG) 1.6 mg/dL 1.8-2.4 L [id number] 21:17:00* Test Item Value Reference Range Interpretation Comments TROPONIN-I (test code = TROPI) <0.015 ng/mL 0-0.045 N BASIC METABOLIC [id number] 21:04:00* Test Item Value Reference Range Interpretation Comments SODIUM (test code = NA) 137 mmol/L 136-145 N POTASSIUM (test code = K) 3.5 mmol/L 3.5-5.1 N CHLORIDE (test code = CL) 104.0 mmol/L 98-107 N CARBON DIOXIDE (test code = CO2) mmol/L 21-32 ANION GAP (test code = GAP) 10-20 GLUCOSE (test code = GLU) mg/dL 74-106 BLOOD UREA NITROGEN (test code = BUN) mg/dL 7-18 GLOMERULAR FILTRATION RATE (test code = GFR) mL/min >=60 CREATININE (test code = CREAT) mg/dL 0.55-1.02 BUN/CREATININE RATIO (test code = BUN/CREA) 10-20 CALCIUM (test code = CA) mg/dL 8.5-10.1 BILIRUBIN [id number] 21:04:00* Test Item Value Reference Range Interpretation Comments BILIRUBIN TOTAL (test code = BILT) mg/dL 0.0-1.0 [id number] 21:04:00* Test Item Value Reference Range Interpretation Comments MAGNESIUM (test code = MAG) mg/dL 1.8-2.4 [id number] 21:04:00* Test Item Value Reference Range Interpretation Comments TROPONIN-I (test code = TROPI) ng/mL 0-0.045 URINALYSIS [id number] 20:59:00* Test Item Value Reference Range Interpretation Comments UA COLOR (test code = COLU) Dark-Yellow YELLOW UA APPEARANCE (test code = APPU) TURBID CLEAR A UA GLUCOSE DIPSTICK (test code = DGLUU) NEGATIVE mg/dL NEGATIVE UA BILIRUBIN DIPSTICK (test code = BILU) 1.0 (1+) mg/dL NEGATIVE A UA KETONE DIPSTICK (test code = KETU) NEGATIVE mg/dL NEGATIVE UA SPECIFIC GRAVITY (test code = SGU) 1.022 1.001-1.035 UA BLOOD DIPSTICK (test code = JORGE) 0.5 mg/dL (2+) mg/dL NEGATIVE A UA PH DIPSTICK (test code = MAGED) 6.0 5.0-8.0 UA PROTEIN DIPSTICK (test code = PROU) 100 (2+) mg/dL NEGATIVE A UA UROBILINIOGEN DIPSTICK (test code = URO) 6.0 (2+) mg/dL NEGATIVE A UA NITRITE DIPSTICK (test code = BHARATH) NEGATIVE NEGATIVE UA LEUKOCYTE ESTERASE W REFLEX (test code = LEUUR) 500 Ana/u L (3+) Ana/uL NEGATIVE A UA WBC (test code = WBCU) >200 per HPF 0-5 A UA RBC (test code = RBCU) 21-50 #/HPF 0-5 UA WBC CLUMPS (test code = WBCUCL) >10 /HPF NONE A UA EPITHELIAL CELLS (test code = EPIU) FEW per HPF FEW UA BACTERIA (test code = BACU) MANY #/HPF NONE A UA CALCIUM OXALATE CRYSTALS (test code = CAOXU) FEW #/HPF NONE A UA MUCUS (test code = MUCU) MODERATE #/LPF FEW A Urine Source? Clean CatchCBC W/O [id number] 20:57:00* Test Item Value Reference Range Interpretation Comments WHITE BLOOD CELL (test code = WBC) 9.9 K/mm3 4.5-12.5 N RED BLOOD CELL (test code = RBC) 3.29 mill/mm3 3.7-5.2 L HEMOGLOBIN (test code = HGB) 10.2 gram/dL 11.5-15.5 L HEMATOCRIT (test code = HCT) 32.3 % 36.0-46.0 L MEAN CELL VOLUME (test code = MCV) 98.2 fL 80-98 H MEAN CELL HGB (test code = MCH) 31.0 picogram 27.0-33.0 N MEAN CELL HGB CONCETRATION (test code = MCHC) 31.6 gram/dL 33.0-36. 0 L RED CELL DISTRIBUTION WIDTH (test code = RDW) 19.9 % 11.6-16. 2 H PLATELET COUNT (test code = PLT) 338 K/mm3 150-450 N MEAN PLATELET VOLUME (test code = MPV) 10.1 fL 6.7-11.0 N URINALYSIS [id number] 20:44:00* Test Item Value Reference Range Interpretation Comments UA COLOR (test code = COLU) Dark-Yellow YELLOW UA APPEARANCE (test code = APPU) TURBID CLEAR A UA GLUCOSE DIPSTICK (test code = DGLUU) NEGATIVE mg/dL NEGATIVE UA BILIRUBIN DIPSTICK (test code = BILU) 1.0 (1+) mg/dL NEGATIVE A UA KETONE DIPSTICK (test code = KETU) NEGATIVE mg/dL NEGATIVE UA SPECIFIC GRAVITY (test code = SGU) 1.022 1.001-1.035 UA BLOOD DIPSTICK (test code = JORGE) 0.5 mg/dL (2+) mg/dL NEGATIVE A UA PH DIPSTICK (test code = MAGED) 6.0 5.0-8.0 UA PROTEIN DIPSTICK (test code = PROU) 100 (2+) mg/dL NEGATIVE A UA UROBILINIOGEN DIPSTICK (test code = URO) 6.0 (2+) mg/dL NEGATIVE A UA NITRITE DIPSTICK (test code = BHARATH) NEGATIVE NEGATIVE UA LEUKOCYTE ESTERASE W REFLEX (test code = LEUUR) 500 Ana/u L (3+) Ana/uL NEGATIVE A UA WBC (test code = WBCU) per HPF 0-5 UA RBC (test code = RBCU) per HPF 0-5 UA EPITHELIAL CELLS (test code = EPIU) per HPF Few UA BACTERIA (test code = BACU) per HPF NONE Urine Source? Clean Catch- XR CHEST 1 [id number] 20:03:00 FAX: Kiel Mathew [phone] [place]: St: REG Name: OLEG UMANZOR [facility] : [birth year] 57 Age/S: 58/F [address] [place] [address] Unit #: [id number] Loc: [place] [address] Phys: Kiel Zelaya MD Acct: [id number] Dis Date: Status: REG ER PHONE #: [phone] Exam Date: 03/02/20191944 FAX #: [phone] Reason: WEAKNESS EXAMS: CPT CODE: [id number] XR CHEST 1 V [id number] REASON FOR EXAM: WEAKNESS Exam Order Date: 03/02/2019 7:15 PM Ordering M.D.: Trev Zelaya MD PROCEDURE: - XR CHEST [...] Trnscrd Date/Time/By: 0 03/02/2019 (2002) : By: [email or web address] Orig Print D/T: S: 03/02/2019 (2005) PAGE 1 Signed Report [id number] 11:41:00* Test Item Value Reference Range Interpretation Comments GLUBED (test code = GLUBED) 100 MG/DL 70-110 N Performed by certified threader operator at [facility] BASIC METABOLIC [id number] 08:34:00* Test Item Value Reference Range Interpretation Comments SODIUM (test code = NA) 144 mEq/L 134-147 N POTASSIUM (test code = K) 3.2 mEq/L 3.4-5.0 L CHLORIDE (test code = CL) 114 mEq/L 100-108 H CARBON DIOXIDE (test code = CO2) 22 mEq/L 21-33 N ANION GAP (test code = GAP) 11 0-20 N GLUCOSE (test code = GLU) 94 mg/dL 70-110 N BLOOD UREA NITROGEN (test code = BUN) 8 mg/dL 7-18 GLOMERULAR FILTRATION RATE (test code = GFR) 162.8 80-90 H Units of measure = ml/min/1.73 m2 CREATININE (test code = CREAT) 0.4 mg/dL 0.6-1.3 L CALCIUM (test code = CA) 7.6 mg/dL 8.0-10.5 L [id number] 08:34:00* Test Item Value Reference Range Interpretation Comments PHOSPHOROUS (test code = PHOS) 2.7 mg/dL 2.5-4.9 N [id number] 08:34:00* Test Item Value Reference Range Interpretation Comments MAGNESIUM (test code = MAG) 1.40 mg/dL 1.8-2.4 L CBC W/AUTO [id number] 08:12:00* Test Item Value Reference Range Interpretation Comments WHITE BLOOD CELL (test code = WBC) 12.16 x10 3/uL 4.5-11.0 H RED BLOOD CELL (test code = RBC) 2.41 x10 6/uL 3.54-5.02 L HEMOGLOBIN (test code = HGB) 7.2 g/dL 11.0-15.0 L HEMATOCRIT (test code = HCT) 23.0 % 33.0-45.0 L MEAN CELL VOLUME (test code = MCV) 95.4 fL 81.0-99.0 N MEAN CELL HGB (test code = MCH) 29.9 pg 27.0-33.0 N MEAN CELL HGB CONCETRATION (test code = MCHC) 31.3 g/dL 33.0-37. 0 L RED CELL DISTRIBUTION WIDTH CV (test code = RDW) 19.0 % 11.5- 14.5 H RED CELL DISTRIBUTION WIDTH SD (test code = RDW-SD) 62.3 fL 37 .0-54.0 H PLATELET COUNT (test code = PLT) 243 x10 3/uL 150-400 N MEAN PLATELET VOLUME (test code = MPV) 11.4 fL 7.0-9.0 H NEUTROPHIL % (test code = NT%) 83.0 % 56.0-77.0 H IMMATURE GRANULOCYTE % (test code = IG%) 5.1 % 0.0-2.0 H LYMPHOCYTE % (test code = LY%) 4.4 % 14.0-32.0 L MONOCYTE % (test code = MO%) 7.0 % 4.8-9.0 N EOSINOPHIL % (test code = EO%) 0.3 % 0.3-3.7 N BASOPHIL % (test code = BA%) 0.2 % 0.0-2.0 N NUCLEATED RBC % (test code = NRBC%) 0.0 % 0-0 N NEUTROPHIL # (test code = NT#) 10.09 x10 3/uL 2.0-7.6 H IMMATURE GRANULOCYTE # (test code = IG#) 0.62 x10 3/uL 0.00-0.03 H LYMPHOCYTE # (test code = LY#) 0.54 x10 3/uL 1.0-3.8 L MONOCYTE # (test code = MO#) 0.85 x10 3/uL 0.1-0.8 H EOSINOPHIL # (test code = EO#) 0.04 x10 3/uL 0.0-0.2 N BASOPHIL # (test code = BA#) 0.02 x10 3/uL 0.0-0.2 N NUCLEATED RBC # (test code = NRBC#) 0.00 x10 3/uL 0.0-0.1 N MANUAL DIFF REQUIRED (test code = MDIFF) NO SLIDE REVIEWED, CONSISTENT WITH AUTO DIFF. [id number] 07:52:00* Test Item Value Reference Range Interpretation Comments GLUBED (test code = GLUBED) 94 MG/DL 70-110 N Performed by certified threader operator at [facility] CBC W/AUTO [id number] 07:41:00* Test Item Value Reference Range Interpretation Comments WHITE BLOOD CELL (test code = WBC) 12.16 x10 3/uL 4.5-11.0 H RED BLOOD CELL (test code = RBC) 2.41 x10 6/uL 3.54-5.02 L HEMOGLOBIN (test code = HGB) 7.2 g/dL 11.0-15.0 L HEMATOCRIT (test code = HCT) 23.0 % 33.0-45.0 L MEAN CELL VOLUME (test code = MCV) 95.4 fL 81.0-99.0 N MEAN CELL HGB (test code = MCH) 29.9 pg 27.0-33.0 N MEAN CELL HGB CONCETRATION (test code = MCHC) 31.3 g/dL 33.0-37. 0 L RED CELL DISTRIBUTION WIDTH CV (test code = RDW) 19.0 % 11.5- 14.5 H RED CELL DISTRIBUTION WIDTH SD (test code = RDW-SD) 62.3 fL 37 .0-54.0 H PLATELET COUNT (test code = PLT) 243 x10 3/uL 150-400 N MEAN PLATELET VOLUME (test code = MPV) 11.4 fL 7.0-9.0 H LYMPHOCYTE % (test code = LY%) % 14.0-32.0 MANUAL DIFF REQUIRED (test code = MDIFF) [id number] 00:26:00* Test Item Value Reference Range Interpretation Comments GLUBED (test code = GLUBED) 125 MG/DL 70-110 H Performed by certified threader operator at [facility] [id number] 18:57:00* Test Item Value Reference Range Interpretation Comments GLUBED (test code = GLUBED) 96 MG/DL 70-110 N Performed by certified threader operator at [facility] [id number] 11:26:00* Test Item Value Reference Range Interpretation Comments GLUBED (test code = GLUBED) 113 MG/DL 70-110 H Performed by certified threader operator at [facility] BASIC METABOLIC [id number] 10:30:00* Test Item Value Reference Range Interpretation Comments SODIUM (test code = NA) 144 mEq/L 134-147 N POTASSIUM (test code = K) 3.5 mEq/L 3.4-5.0 N CHLORIDE (test code = CL) 115 mEq/L 100-108 H CARBON DIOXIDE (test code = CO2) 23 mEq/L 21-33 N ANION GAP (test code = GAP) 10 0-20 N GLUCOSE (test code = GLU) 99 mg/dL 70-110 N BLOOD UREA NITROGEN (test code = BUN) 11 mg/dL 7-18 N GLOMERULAR FILTRATION RATE (test code = GFR) 162.8 80-90 H Units of measure = ml/min/1.73 m2 CREATININE (test code = CREAT) 0.4 mg/dL 0.6-1.3 L CALCIUM (test code = CA) 7.9 mg/dL 8.0-10.5 L COMMENTS: PLEASE USE BLOOD IN LAB. THANKS![id number] 10:30:00* Test Item Value Reference Range Interpretation Comments PHOSPHOROUS (test code = PHOS) 2.7 mg/dL 2.5-4.9 N COMMENTS: PLEASE USE BLOOD IN LAB. THANKS![id number] 10:30:00* Test Item Value Reference Range Interpretation Comments MAGNESIUM (test code = MAG) 1.40 mg/dL 1.8-2.4 L COMMENTS: PLEASE USE BLOOD IN LAB. THANKS![id number] 08:12:00* Test Item Value Reference Range Interpretation Comments GLUBED (test code = GLUBED) 97 MG/DL 70-110 N Performed by certified threader operator at [facility] [id number] 00:57:00* Test Item Value Reference Range Interpretation Comments GLUBED (test code = GLUBED) 97 MG/DL 70-110 N Performed by certified threader operator at [facility] [id number] 18:05:00* Test Item Value Reference Range Interpretation Comments GLUBED (test code = GLUBED) 88 MG/DL 70-110 N Performed by certified threader operator at [facility] [id number] 12:17:00* Test Item Value Reference Range Interpretation Comments GLUBED (test code = GLUBED) 96 MG/DL 70-110 N Performed by certified threader operator at [facility] [id number] 07:33:00* Test Item Value Reference Range Interpretation Comments GLUBED (test code = GLUBED) 96 MG/DL 70-110 N Performed by certified threader operator at [facility] [id number] 07:33:00* Test Item Value Reference Range Interpretation Comments GLUBED (test code = GLUBED) 99 MG/DL 70-110 N Performed by certified threader operator at [facility] BASIC METABOLIC [id number] 05:45:00* Test Item Value Reference Range Interpretation Comments SODIUM (test code = NA) 145 mEq/L 134-147 N POTASSIUM (test code = K) 3.0 mEq/L 3.4-5.0 L CHLORIDE (test code = CL) 114 mEq/L 100-108 H CARBON DIOXIDE (test code = CO2) 23 mEq/L 21-33 N ANION GAP (test code = GAP) 11 0-20 N GLUCOSE (test code = GLU) 101 mg/dL 70-110 N BLOOD UREA NITROGEN (test code = BUN) 14 mg/dL 7-18 GLOMERULAR FILTRATION RATE (test code = GFR) 162.8 80-90 H Units of measure = ml/min/1.73 m2 CREATININE (test code = CREAT) 0.4 mg/dL 0.6-1.3 L CALCIUM (test code = CA) 8.0 mg/dL 8.0-10.5 N [id number] 05:45:00* Test Item Value Reference Range Interpretation Comments PHOSPHOROUS (test code = PHOS) 2.9 mg/dL 2.5-4.9 N [id number] 05:45:00* Test Item Value Reference Range Interpretation Comments MAGNESIUM (test code = MAG) 1.50 mg/dL 1.8-2.4 L [id number] 05:45:00* Test Item Value Reference Range Interpretation Comments PREALBUMIN (test code = PREALB) 7.0 mg/dL 16.0-40.0 L [id number] 01:07:00* Test Item Value Reference Range Interpretation Comments GLUBED (test code = GLUBED) 111 MG/DL 70-110 H Performed by certified threader operator at [facility] [id number] 17:51:00* Test Item Value Reference Range Interpretation Comments GLUBED (test code = GLUBED) 96 MG/DL 70-110 N Performed by certified threader operator at [facility] [id number] 07:44:00* Test Item Value Reference Range Interpretation Comments GLUBED (test code = GLUBED) 103 MG/DL 70-110 N Performed by certified threader operator at [facility] BASIC METABOLIC [id number] 06:59:00* Test Item Value Reference Range Interpretation Comments SODIUM (test code = NA) 143 mEq/L 134-147 N POTASSIUM (test code = K) 3.0 mEq/L 3.4-5.0 L CHLORIDE (test code = CL) 109 mEq/L 100-108 H CARBON DIOXIDE (test code = CO2) 25 mEq/L 21-33 N ANION GAP (test code = GAP) 12 0-20 N GLUCOSE (test code = GLU) 104 mg/dL 70-110 N BLOOD UREA NITROGEN (test code = BUN) 19 mg/dL 7-18 H GLOMERULAR FILTRATION RATE (test code = GFR) 162.8 80-90 H Units of measure = ml/min/1.73 m2 CREATININE (test code = CREAT) 0.4 mg/dL 0.6-1.3 L CALCIUM (test code = CA) 8.1 mg/dL 8.0-10.5 N [id number] 06:59:00* Test Item Value Reference Range Interpretation Comments PHOSPHOROUS (test code = PHOS) 2.8 mg/dL 2.5-4.9 N [id number] 06:59:00* Test Item Value Reference Range Interpretation Comments MAGNESIUM (test code = MAG) 1.60 mg/dL 1.8-2.4 L TOTAL IRON BINDING [id number] 06:59:00* Test Item Value Reference Range Interpretation Comments SERUM IRON (test code = IRON) 24 mcg/dL 35-150 L TOTAL IRON BINDING CAPACITY (test code = TIBC) 153 mcg/dL 260-445 L UIBC (test code = UIBC) 129 mcg/dL IRON SATURATION (test code = FESAT) 15.7 % 14-34 N [id number] 06:59:00* Test Item Value Reference Range Interpretation Comments FERRITIN (test code = MINO) 1040.1 ng/mL 11.0-306.8 H CBC W/AUTO [id number] 06:57:00* Test Item Value Reference Range Interpretation Comments WHITE BLOOD CELL (test code = WBC) 7.97 x10 3/uL 4.5-11.0 N RED BLOOD CELL (test code = RBC) 2.57 x10 6/uL 3.54-5.02 L HEMOGLOBIN (test code = HGB) 7.6 g/dL 11.0-15.0 L HEMATOCRIT (test code = HCT) 24.1 % 33.0-45.0 L MEAN CELL VOLUME (test code = MCV) 93.8 fL 81.0-99.0 N MEAN CELL HGB (test code = MCH) 29.6 pg 27.0-33.0 N MEAN CELL HGB CONCETRATION (test code = MCHC) 31.5 g/dL 33.0-37. 0 L RED CELL DISTRIBUTION WIDTH CV (test code = RDW) 18.0 % 11.5- 14.5 H RED CELL DISTRIBUTION WIDTH SD (test code = RDW-SD) 55.8 fL 37 .0-54.0 H PLATELET COUNT (test code = PLT) 196 x10 3/uL 150-400 N MEAN PLATELET VOLUME (test code = MPV) 11.6 fL 7.0-9.0 H NEUTROPHIL % (test code = NT%) 85.0 % 56.0-77.0 H IMMATURE GRANULOCYTE % (test code = IG%) 2.3 % 0.0-2.0 H LYMPHOCYTE % (test code = LY%) 4.5 % 14.0-32.0 L MONOCYTE % (test code = MO%) 7.8 % 4.8-9.0 N EOSINOPHIL % (test code = EO%) 0.3 % 0.3-3.7 N BASOPHIL % (test code = BA%) 0.1 % 0.0-2.0 N NUCLEATED RBC % (test code = NRBC%) 0.0 % 0-0 N NEUTROPHIL # (test code = NT#) 6.78 x10 3/uL 2.0-7.6 N IMMATURE GRANULOCYTE # (test code = IG#) 0.18 x10 3/uL 0.00-0.03 H LYMPHOCYTE # (test code = LY#) 0.36 x10 3/uL 1.0-3.8 L MONOCYTE # (test code = MO#) 0.62 x10 3/uL 0.1-0.8 N EOSINOPHIL # (test code = EO#) 0.02 x10 3/uL 0.0-0.2 N BASOPHIL # (test code = BA#) 0.01 x10 3/uL 0.0-0.2 N NUCLEATED RBC # (test code = NRBC#) 0.00 x10 3/uL 0.0-0.1 N MANUAL DIFF REQUIRED (test code = MDIFF) NO [id number] 06:30:00* Test Item Value Reference Range Interpretation Comments GLUBED (test code = GLUBED) 107 MG/DL 70-110 N Performed by certified threader operator at [facility] [id number] 00:52:00* Test Item Value Reference Range Interpretation Comments GLUBED (test code = GLUBED) 99 MG/DL 70-110 N Performed by certified threader operator at [facility] [id number] 18:13:00* Test Item Value Reference Range Interpretation Comments GLUBED (test code = GLUBED) 86 MG/DL 70-110 N Performed by certified threader operator at [facility] [id number] 12:00:00* Test Item Value Reference Range Interpretation Comments GLUBED (test code = GLUBED) 89 MG/DL 70-110 N Performed by certified threader operator at [facility] BASIC METABOLIC [id number] 06:12:00* Test Item Value Reference Range Interpretation Comments SODIUM (test code = NA) 141 mEq/L 134-147 N POTASSIUM (test code = K) 2.6 mEq/L 3.4-5.0 LL CHLORIDE (test code = CL) 106 mEq/L 100-108 N CARBON DIOXIDE (test code = CO2) 28 mEq/L 21-33 N ANION GAP (test code = GAP) 10 0-20 N GLUCOSE (test code = GLU) 98 mg/dL 70-110 N BLOOD UREA NITROGEN (test code = BUN) 25 mg/dL 7-18 H GLOMERULAR FILTRATION RATE (test code = GFR) 125.9 80-90 H Units of measure = ml/min/1.73 m2 CREATININE (test code = CREAT) 0.5 mg/dL 0.6-1.3 L CALCIUM (test code = CA) 8.1 mg/dL 8.0-10.5 N [id number] 06:12:00* Test Item Value Reference Range Interpretation Comments PHOSPHOROUS (test code = PHOS) 3.3 mg/dL 2.5-4.9 N [id number] 06:12:00* Test Item Value Reference Range Interpretation Comments MAGNESIUM (test code = MAG) 1.90 mg/dL 1.8-2.4 N CBC W/AUTO [id number] 05:28:00* Test Item Value Reference Range Interpretation Comments WHITE BLOOD CELL (test code = WBC) 6.66 x10 3/uL 4.5-11.0 N RED BLOOD CELL (test code = RBC) 2.54 x10 6/uL 3.54-5.02 L HEMOGLOBIN (test code = HGB) 7.5 g/dL 11.0-15.0 L HEMATOCRIT (test code = HCT) 23.5 % 33.0-45.0 L MEAN CELL VOLUME (test code = MCV) 92.5 fL 81.0-99.0 N MEAN CELL HGB (test code = MCH) 29.5 pg 27.0-33.0 N MEAN CELL HGB CONCETRATION (test code = MCHC) 31.9 g/dL 33.0-37. 0 L RED CELL DISTRIBUTION WIDTH CV (test code = RDW) 17.9 % 11.5- 14.5 H RED CELL DISTRIBUTION WIDTH SD (test code = RDW-SD) 54.3 fL 37 .0-54.0 H PLATELET COUNT (test code = PLT) 160 x10 3/uL 150-400 N MEAN PLATELET VOLUME (test code = MPV) 11.5 fL 7.0-9.0 H NEUTROPHIL % (test code = NT%) 83.4 % 56.0-77.0 H IMMATURE GRANULOCYTE % (test code = IG%) 1.8 % 0.0-2.0 N LYMPHOCYTE % (test code = LY%) 4.8 % 14.0-32.0 L MONOCYTE % (test code = MO%) 9.3 % 4.8-9.0 H EOSINOPHIL % (test code = EO%) 0.5 % 0.3-3.7 N BASOPHIL % (test code = BA%) 0.2 % 0.0-2.0 N NUCLEATED RBC % (test code = NRBC%) 0.0 % 0-0 N NEUTROPHIL # (test code = NT#) 5.56 x10 3/uL 2.0-7.6 N IMMATURE GRANULOCYTE # (test code = IG#) 0.12 x10 3/uL 0.00-0.03 H LYMPHOCYTE # (test code = LY#) 0.32 x10 3/uL 1.0-3.8 L MONOCYTE # (test code = MO#) 0.62 x10 3/uL 0.1-0.8 N EOSINOPHIL # (test code = EO#) 0.03 x10 3/uL 0.0-0.2 N BASOPHIL # (test code = BA#) 0.01 x10 3/uL 0.0-0.2 N NUCLEATED RBC # (test code = NRBC#) 0.00 x10 3/uL 0.0-0.1 N MANUAL DIFF REQUIRED (test code = MDIFF) NO [id number] 00:13:00* Test Item Value Reference Range Interpretation Comments GLUBED (test code = GLUBED) 86 MG/DL 70-110 N Performed by certified threader operator at [facility] [id number] 19:36:00* Test Item Value Reference Range Interpretation Comments GLUBED (test code = GLUBED) 89 MG/DL 70-110 N Performed by certified threader operator at [facility] [id number] 11:03:00* Test Item Value Reference Range Interpretation Comments GLUBED (test code = GLUBED) 82 MG/DL 70-110 N Performed by certified threader operator at [facility] [id number] 10:50:00* Test Item Value Reference Range Interpretation Comments GLUBED (test code = GLUBED) 91 MG/DL 70-110 N Performed by certified threader operator at [facility] BASIC METABOLIC [id number] 08:05:00* Test Item Value Reference Range Interpretation Comments SODIUM (test code = NA) 142 mEq/L 134-147 N POTASSIUM (test code = K) 3.0 mEq/L 3.4-5.0 L CHLORIDE (test code = CL) 109 mEq/L 100-108 H CARBON DIOXIDE (test code = CO2) 25 mEq/L 21-33 N ANION GAP (test code = GAP) 11 0-20 N GLUCOSE (test code = GLU) 90 mg/dL 70-110 N BLOOD UREA NITROGEN (test code = BUN) 31 mg/dL 7-18 H GLOMERULAR FILTRATION RATE (test code = GFR) 125.9 80-90 H Units of measure = ml/min/1.73 m2 CREATININE (test code = CREAT) 0.5 mg/dL 0.6-1.3 L CALCIUM (test code = CA) 8.1 mg/dL 8.0-10.5 N [id number] 08:05:00* Test Item Value Reference Range Interpretation Comments PHOSPHOROUS (test code = PHOS) 3.3 mg/dL 2.5-4.9 N [id number] 08:05:00* Test Item Value Reference Range Interpretation Comments MAGNESIUM (test code = MAG) 2.00 mg/dL 1.8-2.4 [id number] 01:12:00* Test Item Value Reference Range Interpretation Comments GLUBED (test code = GLUBED) 92 MG/DL 70-110 N Performed by certified threader operator at [facility] [id number] 20:19:00* Test Item Value Reference Range Interpretation Comments GLUBED (test code = GLUBED) 106 MG/DL 70-110 N Performed by certified threader operator at [facility] [id number] 20:19:00* Test Item Value Reference Range Interpretation Comments GLUBED (test code = GLUBED) 116 MG/DL 70-110 H Performed by certified threader operator at [facility] CBC W/AUTO [id number] 10:05:00* Test Item Value Reference Range Interpretation Comments WHITE BLOOD CELL (test code = WBC) 7.29 x10 3/uL 4.5-11.0 N RED BLOOD CELL (test code = RBC) 2.53 x10 6/uL 3.54-5.02 L HEMOGLOBIN (test code = HGB) 7.6 g/dL 11.0-15.0 L HEMATOCRIT (test code = HCT) 23.5 % 33.0-45.0 L MEAN CELL VOLUME (test code = MCV) 92.9 fL 81.0-99.0 N MEAN CELL HGB (test code = MCH) 30.0 pg 27.0-33.0 N MEAN CELL HGB CONCETRATION (test code = MCHC) 32.3 g/dL 33.0-37. 0 L RED CELL DISTRIBUTION WIDTH CV (test code = RDW) 17.5 % 11.5- 14.5 H RED CELL DISTRIBUTION WIDTH SD (test code = RDW-SD) 55.6 fL 37 .0-54.0 H PLATELET COUNT (test code = PLT) 117 x10 3/uL 150-400 L MEAN PLATELET VOLUME (test code = MPV) 12.6 fL 7.0-9.0 H NEUTROPHIL % (test code = NT%) 83.4 % 56.0-77.0 H IMMATURE GRANULOCYTE % (test code = IG%) 3.7 % 0.0-2.0 H LYMPHOCYTE % (test code = LY%) 5.1 % 14.0-32.0 L MONOCYTE % (test code = MO%) 7.0 % 4.8-9.0 N EOSINOPHIL % (test code = EO%) 0.5 % 0.3-3.7 N BASOPHIL % (test code = BA%) 0.3 % 0.0-2.0 N NUCLEATED RBC % (test code = NRBC%) 0.0 % 0-0 N NEUTROPHIL # (test code = NT#) 6.08 x10 3/uL 2.0-7.6 N IMMATURE GRANULOCYTE # (test code = IG#) 0.27 x10 3/uL 0.00-0.03 H LYMPHOCYTE # (test code = LY#) 0.37 x10 3/uL 1.0-3.8 L MONOCYTE # (test code = MO#) 0.51 x10 3/uL 0.1-0.8 N EOSINOPHIL # (test code = EO#) 0.04 x10 3/uL 0.0-0.2 N BASOPHIL # (test code = BA#) 0.02 x10 3/uL 0.0-0.2 N NUCLEATED RBC # (test code = NRBC#) 0.00 x10 3/uL 0.0-0.1 N MANUAL DIFF REQUIRED (test code = MDIFF) NO SLIDE REVIEWED, CONSISTENT WITH AUTO DIFF. BASIC METABOLIC [id number] 07:33:00* Test Item Value Reference Range Interpretation Comments SODIUM (test code = NA) 141 mEq/L 134-147 N POTASSIUM (test code = K) 3.4 mEq/L 3.4-5.0 N CHLORIDE (test code = CL) 109 mEq/L 100-108 H CARBON DIOXIDE (test code = CO2) 26 mEq/L 21-33 N ANION GAP (test code = GAP) 9 0-20 N GLUCOSE (test code = GLU) 97 mg/dL 70-110 BLOOD UREA NITROGEN (test code = BUN) 39 mg/dL 7-18 H GLOMERULAR FILTRATION RATE (test code = GFR) 102.0 80-90 H Units of measure = ml/min/1.73 m2 CREATININE (test code = CREAT) 0.6 mg/dL 0.6-1.3 N CALCIUM (test code = CA) 7.8 mg/dL 8.0-10.5 L [id number] 07:33:00* Test Item Value Reference Range Interpretation Comments PHOSPHOROUS (test code = PHOS) 3.4 mg/dL 2.5-4.9 N [id number] 07:33:00* Test Item Value Reference Range Interpretation Comments MAGNESIUM (test code = MAG) 1.70 mg/dL 1.8-2.4 L CBC W/AUTO [id number] 06:40:00* Test Item Value Reference Range Interpretation Comments WHITE BLOOD CELL (test code = WBC) 7.29 x10 3/uL 4.5-11.0 N RED BLOOD CELL (test code = RBC) 2.53 x10 6/uL 3.54-5.02 L HEMOGLOBIN (test code = HGB) 7.6 g/dL 11.0-15.0 L HEMATOCRIT (test code = HCT) 23.5 % 33.0-45.0 L MEAN CELL VOLUME (test code = MCV) 92.9 fL 81.0-99.0 N MEAN CELL HGB (test code = MCH) 30.0 pg 27.0-33.0 N MEAN CELL HGB CONCETRATION (test code = MCHC) 32.3 g/dL 33.0-37. 0 L RED CELL DISTRIBUTION WIDTH CV (test code = RDW) 17.5 % 11.5- 14.5 H RED CELL DISTRIBUTION WIDTH SD (test code = RDW-SD) 55.6 fL 37 .0-54.0 H PLATELET COUNT (test code = PLT) 117 x10 3/uL 150-400 L MEAN PLATELET VOLUME (test code = MPV) 12.6 fL 7.0-9.0 H LYMPHOCYTE % (test code = LY%) % 14.0-32.0 MANUAL DIFF REQUIRED (test code = MDIFF) [id number] 01:23:00* Test Item Value Reference Range Interpretation Comments GLUBED (test code = GLUBED) 105 MG/DL 70-110 N Performed by certified threader operator at [facility] [id number] 17:04:00* Test Item Value Reference Range Interpretation Comments GLUBED (test code = GLUBED) 132 MG/DL 70-110 H Performed by certified threader operator at [facility] [id number] 12:28:00* Test Item Value Reference Range Interpretation Comments GLUBED (test code = GLUBED) 141 MG/DL 70-110 H Performed by certified threader operator at [facility] PROCALCITONIN (PCT)2018-12-25 10:07:00* Test Item Value Reference Range Interpretation Comments PROCALCITONIN (PCT) (test code = PROCAL) 1.02 ng/mL 0.00-0.05 H PROCALCITONIN (PCT) NORMAL RANGE (ADULT): <0.05 NG/ML. [...] concentrations <2 ng/mL are obtained. BASIC METABOLIC [id number] 06:07:00* Test Item Value Reference Range Interpretation Comments SODIUM (test code = NA) 142 mEq/L 134-147 N POTASSIUM (test code = K) 3.3 mEq/L 3.4-5.0 L CHLORIDE (test code = CL) 110 mEq/L 100-108 H CARBON DIOXIDE (test code = CO2) 26 mEq/L 21-33 N ANION GAP (test code = GAP) 9 0-20 N GLUCOSE (test code = GLU) 137 mg/dL 70-110 H BLOOD UREA NITROGEN (test code = BUN) 42 mg/dL 7-18 H GLOMERULAR FILTRATION RATE (test code = GFR) 85.4 80-90 N Units of measure = ml/min/1.73 m2 CREATININE (test code = CREAT) 0.7 mg/dL 0.6-1.3 N CALCIUM (test code = CA) 8.1 mg/dL 8.0-10.5 N [id number] 06:07:00* Test Item Value Reference Range Interpretation Comments PHOSPHOROUS (test code = PHOS) 3.2 mg/dL 2.5-4.9 N [id number] 06:07:00* Test Item Value Reference Range Interpretation Comments MAGNESIUM (test code = MAG) 1.60 mg/dL 1.8-2.4 L [id number] 05:48:00* Test Item Value Reference Range Interpretation Comments GLUBED (test code = GLUBED) 139 MG/DL 70-110 H Performed by certified threader operator at [facility] [id number] 05:36:00* Test Item Value Reference Range Interpretation Comments GLUBED (test code = GLUBED) 120 MG/DL 70-110 H Performed by certified threader operator at [facility] [id number] 23:46:00* Test Item Value Reference Range Interpretation Comments GLUBED (test code = GLUBED) 135 MG/DL 70-110 H Performed by certified threader operator at [facility] [id number] 22:20:00* Test Item Value Reference Range Interpretation Comments POTASSIUM (test code = K) 3.5 mEq/L 3.4-5.0 COMMENTS: REPEAT K [id number] 18:12:00* Test Item Value Reference Range Interpretation Comments GLUBED (test code = GLUBED) 133 MG/DL 70-110 H Performed by certified threader operator at [facility] [id number] 14:48:00* Test Item Value Reference Range Interpretation Comments POTASSIUM (test code = K) 2.8 mEq/L 3.4-5.0 LL [id number] 12:05:00* Test Item Value Reference Range Interpretation Comments TRIGLYCERIDES (test code = TRIG) 151 mg/dL 40-150 H COMMENTS: PLEASE DRAW OR ADD ON TO THIS MORNING'S [id number] 12:04:00 * Test Item Value Reference Range Interpretation Comments GLUBED (test code = GLUBED) 143 MG/DL 70-110 H Performed by certified threader operator at [facility] PROCALCITONIN (PCT)2018-12-24 09:26:00* Test Item Value Reference Range Interpretation Comments PROCALCITONIN (PCT) (test code = PROCAL) 1.08 ng/mL 0.00-0.05 H PROCALCITONIN (PCT) NORMAL RANGE (ADULT): <0.05 NG/ML. [...] if any concentrations <2 ng/mL are obtained. [id number] 06:39:00* Test Item Value Reference Range Interpretation Comments GLUBED (test code = GLUBED) 131 MG/DL 70-110 H Performed by certified threader operator at [facility] CBC W/AUTO [id number] 06:04:00* Test Item Value Reference Range Interpretation Comments WHITE BLOOD CELL (test code = WBC) 7.17 x10 3/uL 4.5-11.0 N RED BLOOD CELL (test code = RBC) 2.58 x10 6/uL 3.54-5.02 L HEMOGLOBIN (test code = HGB) 7.7 g/dL 11.0-15.0 L HEMATOCRIT (test code = HCT) 23.4 % 33.0-45.0 L MEAN CELL VOLUME (test code = MCV) 90.7 fL 81.0-99.0 N MEAN CELL HGB (test code = MCH) 29.8 pg 27.0-33.0 N MEAN CELL HGB CONCETRATION (test code = MCHC) 32.9 g/dL 33.0-37. 0 L RED CELL DISTRIBUTION WIDTH CV (test code = RDW) 17.3 % 11.5- 14.5 H RED CELL DISTRIBUTION WIDTH SD (test code = RDW-SD) 53.7 fL 37 .0-54.0 N PLATELET COUNT (test code = PLT) 79 x10 3/uL 150-400 L MEAN PLATELET VOLUME (test code = MPV) 11.9 fL 7.0-9.0 H NEUTROPHIL % (test code = NT%) 88.0 % 56.0-77.0 H IMMATURE GRANULOCYTE % (test code = IG%) 1.4 % 0.0-2.0 N LYMPHOCYTE % (test code = LY%) 4.2 % 14.0-32.0 L MONOCYTE % (test code = MO%) 5.7 % 4.8-9.0 N EOSINOPHIL % (test code = EO%) 0.6 % 0.3-3.7 N BASOPHIL % (test code = BA%) 0.1 % 0.0-2.0 N NUCLEATED RBC % (test code = NRBC%) 0.0 % 0-0 N NEUTROPHIL # (test code = NT#) 6.31 x10 3/uL 2.0-7.6 N IMMATURE GRANULOCYTE # (test code = IG#) 0.10 x10 3/uL 0.00-0.03 H LYMPHOCYTE # (test code = LY#) 0.30 x10 3/uL 1.0-3.8 L MONOCYTE # (test code = MO#) 0.41 x10 3/uL 0.1-0.8 N EOSINOPHIL # (test code = EO#) 0.04 x10 3/uL 0.0-0.2 N BASOPHIL # (test code = BA#) 0.01 x10 3/uL 0.0-0.2 N NUCLEATED RBC # (test code = NRBC#) 0.00 x10 3/uL 0.0-0.1 N MANUAL DIFF REQUIRED (test code = MDIFF) NO SLIDE REVIEWED, CONSISTENT WITH AUTO DIFF. BASIC METABOLIC [id number] 05:45:00* Test Item Value Reference Range Interpretation Comments SODIUM (test code = NA) 143 mEq/L 134-147 N POTASSIUM (test code = K) 2.7 mEq/L 3.4-5.0 LL CHLORIDE (test code = CL) 110 mEq/L 100-108 H CARBON DIOXIDE (test code = CO2) 27 mEq/L 21-33 N ANION GAP (test code = GAP) 9 0-20 N GLUCOSE (test code = GLU) 128 mg/dL 70-110 H BLOOD UREA NITROGEN (test code = BUN) 36 mg/dL 7-18 H GLOMERULAR FILTRATION RATE (test code = GFR) 85.4 80-90 N Units of measure = ml/min/1.73 m2 CREATININE (test code = CREAT) 0.7 mg/dL 0.6-1.3 N CALCIUM (test code = CA) 8.0 mg/dL 8.0-10.5 N [id number] 05:45:00* Test Item Value Reference Range Interpretation Comments ALBUMIN (test code = ALB) 1.30 g/dL 3.4-5.0 L [id number] 05:45:00* Test Item Value Reference Range Interpretation Comments PHOSPHOROUS (test code = PHOS) 3.0 mg/dL 2.5-4.9 N [id number] 05:45:00* Test Item Value Reference Range Interpretation Comments MAGNESIUM (test code = MAG) 1.60 mg/dL 1.8-2.4 L [id number] 05:45:00* Test Item Value Reference Range Interpretation Comments PREALBUMIN (test code = PREALB) 4.4 mg/dL 16.0-40.0 L [id number] 05:39:00* Test Item Value Reference Range Interpretation Comments GLUBED (test code = GLUBED) 139 MG/DL 70-110 H Performed by certified threader operator at [facility] CBC W/AUTO [id number] 05:15:00* Test Item Value Reference Range Interpretation Comments WHITE BLOOD CELL (test code = WBC) 7.17 x10 3/uL 4.5-11.0 N RED BLOOD CELL (test code = RBC) 2.58 x10 6/uL 3.54-5.02 L HEMOGLOBIN (test code = HGB) 7.7 g/dL 11.0-15.0 L HEMATOCRIT (test code = HCT) 23.4 % 33.0-45.0 L MEAN CELL VOLUME (test code = MCV) 90.7 fL 81.0-99.0 N MEAN CELL HGB (test code = MCH) 29.8 pg 27.0-33.0 N MEAN CELL HGB CONCETRATION (test code = MCHC) 32.9 g/dL 33.0-37. 0 L RED CELL DISTRIBUTION WIDTH CV (test code = RDW) 17.3 % 11.5- 14.5 H RED CELL DISTRIBUTION WIDTH SD (test code = RDW-SD) 53.7 fL 37 .0-54.0 N PLATELET COUNT (test code = PLT) 79 x10 3/uL 150-400 L MEAN PLATELET VOLUME (test code = MPV) 11.9 fL 7.0-9.0 H LYMPHOCYTE % (test code = LY%) % 14.0-32.0 MANUAL DIFF REQUIRED (test code = MDIFF) [id number] 18:15:00* Test Item Value Reference Range Interpretation Comments GLUBED (test code = GLUBED) 141 MG/DL 70-110 H Performed by certified threader operator at [facility] PROCALCITONIN (PCT)2018-12-23 14:25:00* Test Item Value Reference Range Interpretation Comments PROCALCITONIN (PCT) (test code = PROCAL) 1.23 ng/mL 0.00-0.05 H PROCALCITONIN (PCT) NORMAL RANGE (ADULT): <0.05 NG/ML. [...] if any concentrations <2 ng/mL are obtained. [id number] 13:25:00* Test Item Value Reference Range Interpretation Comments GLUBED (test code = GLUBED) 127 MG/DL 70-110 H Performed by certified threader operator at [facility] UA CULT [id number] 10:46:00* Test Item Value Reference Range Interpretation Comments UA WBC (test code = WBCU) 0-3 WBC/HPF 0-3 UA SQUAMOUS CELLS (test code = SQU) NONE SEEN /HPF NONE SEEN UA CULTURE NEEDED? (test code = UACULT) NO, WBC<10 Criteria Culture Chk Criteria not met, Urine Culture cancelled. LACTIC [id number] 10:12:00* Test Item Value Reference Range Interpretation Comments LACTIC ACID (test code = LACT) 1.4 mmol/L 0.4-1.9 N [id number] 08:59:00* Test Item Value Reference Range Interpretation Comments PHOSPHOROUS (test code = PHOS) 3.3 mg/dL 2.5-4.9 N COMMENTS: PLEASE USE BLOOD IN LAB. THANKS!COMMENTS: Day of initiation if not alr cecilia [id number] 08:59:00* Test Item Value Reference Range Interpretation Comments MAGNESIUM (test code = MAG) 1.90 mg/dL 1.8-2.4 N COMMENTS: PLEASE USE BLOOD IN LAB. THANKS!COMMENTS: Day of initiation if not alr cecilia [id number] 07:49:00* Test Item Value Reference Range Interpretation Comments GLUBED (test code = GLUBED) 121 MG/DL 70-110 H Performed by certified threader operator at [facility] BASIC METABOLIC [id number] 07:30:00* Test Item Value Reference Range Interpretation Comments SODIUM (test code = NA) 141 mEq/L 134-147 N POTASSIUM (test code = K) 3.1 mEq/L 3.4-5.0 L CHLORIDE (test code = CL) 108 mEq/L 100-108 N CARBON DIOXIDE (test code = CO2) 25 mEq/L 21-33 N ANION GAP (test code = GAP) 11 0-20 N GLUCOSE (test code = GLU) 120 mg/dL 70-110 H BLOOD UREA NITROGEN (test code = BUN) 35 mg/dL 7-18 H GLOMERULAR FILTRATION RATE (test code = GFR) 85.4 80-90 N Units of measure = ml/min/1.73 m2 CREATININE (test code = CREAT) 0.7 mg/dL 0.6-1.3 N CALCIUM (test code = CA) 7.7 mg/dL 8.0-10.5 L HEPATIC FUNCTION [id number] 07:30:00* Test Item Value Reference Range Interpretation Comments TOTAL PROTEIN (test code = PROT) 6.6 g/dL 6.4-8.2 ALBUMIN (test code = ALB) 1.40 g/dL 3.4-5.0 L BILIRUBIN TOTAL (test code = BILT) 3.00 mg/dL 0.0-1.0 H BILIRUBIN DIRECT (test code = BILD) 2.30 MG/DL 0.0-0.30 H BILIRUBIN INDIRECT (test code = BILIND) 0.70 MG/DL SGOT/AST (test code = AST) 120 IUnit/L 15-37 H SGPT/ALT (test code = ALT) 116 IUnit/L 15-65 H ALKALINE PHOSPHATASE TOTAL (test code = ALKP) 158 IUnit/L 20-125 H PROTHROMBIN [id number] 06:38:00* Test Item Value Reference Range Interpretation Comments PROTHROMBIN TIME PATIENT (test code = PTP) 15.4 SECONDS 9.3-12.9 H INTERNATIONAL NORMAL RATIO (test code = INR) 1.4 0.8-1.2 H TARGET INR BY INDICATION Indication INR1. Prophylaxis [...] Infarction (to prevent recurrent infarct). THROMBOPLASTIN TIME [id number] 06:38:00* Test Item Value Reference Range Interpretation Comments THROMBOPLASTIN TIME PARTIAL (test code = PTT) 28.5 Seconds 25.0-39. 5 N Therapeutic Range: 61.8-83.8 Sec Effective 11/13/2013 CBC W/AUTO [id number] 06:18:00* Test Item Value Reference Range Interpretation Comments WHITE BLOOD CELL (test code = WBC) 8.70 x10 3/uL 4.5-11.0 N RED BLOOD CELL (test code = RBC) 2.89 x10 6/uL 3.54-5.02 L HEMOGLOBIN (test code = HGB) 8.7 g/dL 11.0-15.0 L HEMATOCRIT (test code = HCT) 26.1 % 33.0-45.0 L MEAN CELL VOLUME (test code = MCV) 90.3 fL 81.0-99.0 N MEAN CELL HGB (test code = MCH) 30.1 pg 27.0-33.0 N MEAN CELL HGB CONCETRATION (test code = MCHC) 33.3 g/dL 33.0-37. 0 N RED CELL DISTRIBUTION WIDTH CV (test code = RDW) 17.5 % 11.5- 14.5 H RED CELL DISTRIBUTION WIDTH SD (test code = RDW-SD) 53.5 fL 37 .0-54.0 N PLATELET COUNT (test code = PLT) 79 x10 3/uL 150-400 L MEAN PLATELET VOLUME (test code = MPV) 11.9 fL 7.0-9.0 H NEUTROPHIL % (test code = NT%) 89.1 % 56.0-77.0 H IMMATURE GRANULOCYTE % (test code = IG%) 1.1 % 0.0-2.0 N LYMPHOCYTE % (test code = LY%) 3.3 % 14.0-32.0 L MONOCYTE % (test code = MO%) 5.9 % 4.8-9.0 N EOSINOPHIL % (test code = EO%) 0.5 % 0.3-3.7 N BASOPHIL % (test code = BA%) 0.1 % 0.0-2.0 N NUCLEATED RBC % (test code = NRBC%) 0.0 % 0-0 N NEUTROPHIL # (test code = NT#) 7.75 x10 3/uL 2.0-7.6 H IMMATURE GRANULOCYTE # (test code = IG#) 0.10 x10 3/uL 0.00-0.03 H LYMPHOCYTE # (test code = LY#) 0.29 x10 3/uL 1.0-3.8 L MONOCYTE # (test code = MO#) 0.51 x10 3/uL 0.1-0.8 N EOSINOPHIL # (test code = EO#) 0.04 x10 3/uL 0.0-0.2 N BASOPHIL # (test code = BA#) 0.01 x10 3/uL 0.0-0.2 N NUCLEATED RBC # (test code = NRBC#) 0.00 x10 3/uL 0.0-0.1 N MANUAL DIFF REQUIRED (test code = MDIFF) NO [id number] 05:17:00* Test Item Value Reference Range Interpretation Comments GLUBED (test code = GLUBED) 127 MG/DL 70-110 H Performed by certified threader operator at [facility] [id number] 19:24:00* Test Item Value Reference Range Interpretation Comments GLUBED (test code = GLUBED) 130 MG/DL 70-110 H Performed by certified threader operator at [facility] [id number] 16:57:00* Test Item Value Reference Range Interpretation Comments GLUBED (test code = GLUBED) 132 MG/DL 70-110 H Performed by certified threader operator at [facility] [id number] 13:16:00* Test Item Value Reference Range Interpretation Comments GLUBED (test code = GLUBED) 139 MG/DL 70-110 H Performed by certified threader operator at [facility] CBC W/AUTO [id number] 12:50:00* Test Item Value Reference Range Interpretation Comments WHITE BLOOD CELL (test code = WBC) 9.53 x10 3/uL 4.5-11.0 N RED BLOOD CELL (test code = RBC) 2.86 x10 6/uL 3.54-5.02 L HEMOGLOBIN (test code = HGB) 8.4 g/dL 11.0-15.0 L HEMATOCRIT (test code = HCT) 25.7 % 33.0-45.0 L MEAN CELL VOLUME (test code = MCV) 89.9 fL 81.0-99.0 N MEAN CELL HGB (test code = MCH) 29.4 pg 27.0-33.0 N MEAN CELL HGB CONCETRATION (test code = MCHC) 32.7 g/dL 33.0-37. 0 L RED CELL DISTRIBUTION WIDTH CV (test code = RDW) 17.8 % 11.5- 14.5 H RED CELL DISTRIBUTION WIDTH SD (test code = RDW-SD) 54.2 fL 37 .0-54.0 H PLATELET COUNT (test code = PLT) 65 x10 3/uL 150-400 L MEAN PLATELET VOLUME (test code = MPV) 11.8 fL 7.0-9.0 H NEUTROPHIL % (test code = NT%) 92.1 % 56.0-77.0 H IMMATURE GRANULOCYTE % (test code = IG%) 0.8 % 0.0-2.0 N LYMPHOCYTE % (test code = LY%) 2.8 % 14.0-32.0 L MONOCYTE % (test code = MO%) 3.9 % 4.8-9.0 L EOSINOPHIL % (test code = EO%) 0.2 % 0.3-3.7 L BASOPHIL % (test code = BA%) 0.2 % 0.0-2.0 N NUCLEATED RBC % (test code = NRBC%) 0.0 % 0-0 N NEUTROPHIL # (test code = NT#) 8.77 x10 3/uL 2.0-7.6 H IMMATURE GRANULOCYTE # (test code = IG#) 0.08 x10 3/uL 0.00-0.03 H LYMPHOCYTE # (test code = LY#) 0.27 x10 3/uL 1.0-3.8 L MONOCYTE # (test code = MO#) 0.37 x10 3/uL 0.1-0.8 N EOSINOPHIL # (test code = EO#) 0.02 x10 3/uL 0.0-0.2 N BASOPHIL # (test code = BA#) 0.02 x10 3/uL 0.0-0.2 N NUCLEATED RBC # (test code = NRBC#) 0.00 x10 3/uL 0.0-0.1 N MANUAL DIFF REQUIRED (test code = MDIFF) NO SLIDE REVIEWED, CONSISTENT WITH AUTO DIFF. [id number] 08:53:00* Test Item Value Reference Range Interpretation Comments PHOSPHOROUS (test code = PHOS) 3.0 mg/dL 2.5-4.9 N COMMENTS: PLEASE USE BLOOD IN [id number] 08:53:00* Test Item Value Reference Range Interpretation Comments MAGNESIUM (test code = MAG) 1.70 mg/dL 1.8-2.4 L COMMENTS: PLEASE USE BLOOD IN LABCOMPREHENSIVE METABOLIC [id number] 06:55:00* Test Item Value Reference Range Interpretation Comments SODIUM (test code = NA) 140 mEq/L 134-147 N POTASSIUM (test code = K) 3.2 mEq/L 3.4-5.0 L CHLORIDE (test code = CL) 108 mEq/L 100-108 N CARBON DIOXIDE (test code = CO2) 25 mEq/L 21-33 N ANION GAP (test code = GAP) 10 0-20 N GLUCOSE (test code = GLU) 146 mg/dL 70-110 H BLOOD UREA NITROGEN (test code = BUN) 34 mg/dL 7-18 H GLOMERULAR FILTRATION RATE (test code = GFR) 73.2 80-90 L Units of measure = ml/min/1.73 m2 CREATININE (test code = CREAT) 0.8 mg/dL 0.6-1.3 N TOTAL PROTEIN (test code = PROT) 5.3 g/dL 6.4-8.2 L ALBUMIN (test code = ALB) 1.40 g/dL 3.4-5.0 L CALCIUM (test code = CA) 8.1 mg/dL 8.0-10.5 N BILIRUBIN TOTAL (test code = BILT) 3.00 mg/dL 0.0-1.0 H SGOT/AST (test code = AST) 142 IUnit/L 15-37 H SGPT/ALT (test code = ALT) 111 IUnit/L 15-65 H ALKALINE PHOSPHATASE TOTAL (test code = ALKP) 182 IUnit/L 20-125 H COMPREHENSIVE METABOLIC [id number] 06:51:00* Test Item Value Reference Range Interpretation Comments SODIUM (test code = NA) 140 mEq/L 134-147 N POTASSIUM (test code = K) 3.2 mEq/L 3.4-5.0 L CHLORIDE (test code = CL) 108 mEq/L 100-108 N CARBON DIOXIDE (test code = CO2) 25 mEq/L 21-33 N ANION GAP (test code = GAP) 10 0-20 N GLUCOSE (test code = GLU) 146 mg/dL 70-110 H BLOOD UREA NITROGEN (test code = BUN) 34 mg/dL 7-18 H GLOMERULAR FILTRATION RATE (test code = GFR) 73.2 80-90 L Units of measure = ml/min/1.73 m2 CREATININE (test code = CREAT) 0.8 mg/dL 0.6-1.3 N TOTAL PROTEIN (test code = PROT) g/dL 6.4-8.2 ALBUMIN (test code = ALB) 1.40 g/dL 3.4-5.0 L CALCIUM (test code = CA) 8.1 mg/dL 8.0-10.5 N BILIRUBIN TOTAL (test code = BILT) mg/dL 0.0-1.0 SGOT/AST (test code = AST) IUnit/L 15-37 SGPT/ALT (test code = ALT) 111 IUnit/L 15-65 H ALKALINE PHOSPHATASE TOTAL (test code = ALKP) IUnit/L 20-125 CBC W/AUTO [id number] 06:20:00* Test Item Value Reference Range Interpretation Comments WHITE BLOOD CELL (test code = WBC) 9.53 x10 3/uL 4.5-11.0 N RED BLOOD CELL (test code = RBC) 2.86 x10 6/uL 3.54-5.02 L HEMOGLOBIN (test code = HGB) 8.4 g/dL 11.0-15.0 L HEMATOCRIT (test code = HCT) 25.7 % 33.0-45.0 L MEAN CELL VOLUME (test code = MCV) 89.9 fL 81.0-99.0 N MEAN CELL HGB (test code = MCH) 29.4 pg 27.0-33.0 N MEAN CELL HGB CONCETRATION (test code = MCHC) 32.7 g/dL 33.0-37. 0 L RED CELL DISTRIBUTION WIDTH CV (test code = RDW) 17.8 % 11.5- 14.5 H RED CELL DISTRIBUTION WIDTH SD (test code = RDW-SD) 54.2 fL 37 .0-54.0 H PLATELET COUNT (test code = PLT) 65 x10 3/uL 150-400 L MEAN PLATELET VOLUME (test code = MPV) 11.8 fL 7.0-9.0 H LYMPHOCYTE % (test code = LY%) % 14.0-32.0 MANUAL DIFF REQUIRED (test code = MDIFF) [id number] 05:07:00* Test Item Value Reference Range Interpretation Comments GLUBED (test code = GLUBED) 138 MG/DL 70-110 H Performed by certified threader operator at [facility] [id number] 23:21:00* Test Item Value Reference Range Interpretation Comments GLUBED (test code = GLUBED) 111 MG/DL 70-110 H Performed by certified threader operator at [facility] [id number] 20:44:00* Test Item Value Reference Range Interpretation Comments POTASSIUM (test code = K) 3.1 mEq/L 3.4-5.0 L [id number] 20:11:00* Test Item Value Reference Range Interpretation Comments GLUBED (test code = GLUBED) 138 MG/DL 70-110 H Performed by certified threader operator at [facility] [id number] 16:07:00* Test Item Value Reference Range Interpretation Comments GLUBED (test code = GLUBED) 132 MG/DL 70-110 H Performed by certified threader operator at [facility] - XR CHEST 1 [id number] 16:02:00 FAX: Shakila Granados MD [phone] [place]: St: ADM FAX: Jordy Martinez DO [phone] FAX: Dwayne Millan [phone] Name: HEIDI STEINER [facility] : 1960 Age/S: 58/F [address] [place] [address] Unit #: [id number] Loc: G.M324 [place] [address] Phys: Shakila Khan MD Acct: [id number] Dis Date: Status: ADM IN PH ONE #: [phone] Exam Date: 12/21/2018 1556 FAX #: [phone] Reason: BNP 1753, EDEMA EXAMS: CPT CODE: [id number] XR CHEST 1 V 98805 Clinical Indic ation: BNP 1753, EDEMA Comparison: [...] ight side since the last exam. SL: [id number] at 1602 Reported and signed by: Candido Head M.D. CC: Shakila Khan MD; Jordy Person MD Technologist: Pamela Neumann, RT(R), RTT Trnscrd Date/Time/By: 12/21/2018 (1602) : By: Johnny.LNV Orig Print D/T: S: 12/21/2018 (9516) PAGE 1 Signed Report LACTIC [id number] 14:29:00* Test Item Value Reference Range Interpretation Comments LACTIC ACID (test code = LACT) 1.1 mmol/L 0.4-1.9 N [id number] 14:28:00* Test Item Value Reference Range Interpretation Comments AMMONIA (test code = AMM) < 10 umol/L 0-35 N ARTERIAL BLOOD [id number] 14:06:00* Test Item Value Reference Range Interpretation Comments ARTERIAL BLOOD GAS PH (test code = PHA) 7.512 7.35-7.45 H ARTERIAL BLOOD GAS PCO2 (test code = PCO2A) 25.8 mmHg 35-45 L ARTERIAL BLOOD GAS PO2 (test code = PO2A) 90 mmHg 80-100 N BICARBONATE TOTAL HCO3 (test code = HCO3) 20.7 mmol/L 22.0-26.0 L BASE EXCESS (test code = DIYA) -2.0 mmol/L -4-4 N ABG O2 SATURATION (test code = SATA) 98 % 90-100 N ABG DELIVERY (test code = GLADYS) Room Air Performed by certified threader operator at [facility] ABG TEMPERATURE (test code = TEMPA) 98.6 F ABG SITE (test code = SITEA) R Rad TCO2 ARTERIAL (test code = TCO2A) 21 B-TYPE NATRIURETIC [id number] 12:49:00* Test Item Value Reference Range Interpretation Comments B-TYPE NATRIURETIC PEPTIDE (test code = BNP) 1753.9 PG/ML 0-100 H [id number] 12:00:00* Test Item Value Reference Range Interpretation Comments GLUBED (test code = GLUBED) 149 MG/DL 70-110 H Performed by certified threader operator at [facility] PROTHROMBIN [id number] 11:11:00* Test Item Value Reference Range Interpretation Comments PROTHROMBIN TIME PATIENT (test code = PTP) 15.5 SECONDS 9.3-12.9 H INTERNATIONAL NORMAL RATIO (test code = INR) 1.4 0.8-1.2 H TARGET INR BY INDICATION Indication INR1. Prophylaxis [...] Infarction (to prevent recurrent infarct). THROMBOPLASTIN TIME [id number] 11:11:00* Test Item Value Reference Range Interpretation Comments THROMBOPLASTIN TIME PARTIAL (test code = PTT) 31.0 Seconds 25.0-39. 5 N Therapeutic Range: 61.8-83.8 Sec Effective 11/13/2013 [id number] 11:11:00* Test Item Value Reference Range Interpretation Comments FIBRINOGEN (test code = FIB) 707 MG/DL 160-450 H Excess administration of anticoagulants and/or FibrinDegradation Products may affect Fibrinogen value. CBC W/AUTO [id number] 09:03:00* Test Item Value Reference Range Interpretation Comments WHITE BLOOD CELL (test code = WBC) 11.33 x10 3/uL 4.5-11.0 H RED BLOOD CELL (test code = RBC) 2.83 x10 6/uL 3.54-5.02 L HEMOGLOBIN (test code = HGB) 8.4 g/dL 11.0-15.0 L HEMATOCRIT (test code = HCT) 25.6 % 33.0-45.0 L MEAN CELL VOLUME (test code = MCV) 90.5 fL 81.0-99.0 MEAN CELL HGB (test code = MCH) 29.7 pg 27.0-33.0 N MEAN CELL HGB CONCETRATION (test code = MCHC) 32.8 g/dL 33.0-37. 0 L RED CELL DISTRIBUTION WIDTH CV (test code = RDW) 17.0 % 11.5- 14.5 H RED CELL DISTRIBUTION WIDTH SD (test code = RDW-SD) 53.3 fL 37 .0-54.0 N PLATELET COUNT (test code = PLT) x10 3/uL 150-400 SEE PLTS. ESTIMATE MEAN PLATELET VOLUME (test code = MPV) 12.9 fL 7.0-9.0 H LYMPHOCYTE % (test code = LY%) % 14.0-32.0 MANUAL DIFF REQUIRED (test code = MDIFF) PLT [id number] 09:03:00* Test Item Value Reference Range Interpretation Comments PLATELET ESTIMATE (test code = PLTEST) 60-75 THOUSAND ADEQUATE PLATELET MORPHOLOGY (test code = PLTMORPH) LARGE PLATELETS CBC W/AUTO [id number] 09:03:00* Test Item Value Reference Range Interpretation Comments WHITE BLOOD CELL (test code = WBC) 11.33 x10 3/uL 4.5-11.0 H RED BLOOD CELL (test code = RBC) 2.83 x10 6/uL 3.54-5.02 L HEMOGLOBIN (test code = HGB) 8.4 g/dL 11.0-15.0 L HEMATOCRIT (test code = HCT) 25.6 % 33.0-45.0 L MEAN CELL VOLUME (test code = MCV) 90.5 fL 81.0-99.0 MEAN CELL HGB (test code = MCH) 29.7 pg 27.0-33.0 N MEAN CELL HGB CONCETRATION (test code = MCHC) 32.8 g/dL 33.0-37. 0 L RED CELL DISTRIBUTION WIDTH CV (test code = RDW) 17.0 % 11.5- 14.5 H RED CELL DISTRIBUTION WIDTH SD (test code = RDW-SD) 53.3 fL 37 .0-54.0 N PLATELET COUNT (test code = PLT) x10 3/uL 150-400 SEE PLTS. ESTIMATE MEAN PLATELET VOLUME (test code = MPV) 12.9 fL 7.0-9.0 H NEUTROPHIL % (test code = NT%) 93.1 % 56.0-77.0 H IMMATURE GRANULOCYTE % (test code = IG%) 1.0 % 0.0-2.0 N LYMPHOCYTE % (test code = LY%) 2.1 % 14.0-32.0 L MONOCYTE % (test code = MO%) 3.4 % 4.8-9.0 L EOSINOPHIL % (test code = EO%) 0.2 % 0.3-3.7 L BASOPHIL % (test code = BA%) 0.2 % 0.0-2.0 N NUCLEATED RBC % (test code = NRBC%) 0.0 % 0-0 N NEUTROPHIL # (test code = NT#) 10.55 x10 3/uL 2.0-7.6 H IMMATURE GRANULOCYTE # (test code = IG#) 0.11 x10 3/uL 0.00-0.03 H LYMPHOCYTE # (test code = LY#) 0.24 x10 3/uL 1.0-3.8 L MONOCYTE # (test code = MO#) 0.39 x10 3/uL 0.1-0.8 N EOSINOPHIL # (test code = EO#) 0.02 x10 3/uL 0.0-0.2 N BASOPHIL # (test code = BA#) 0.02 x10 3/uL 0.0-0.2 N NUCLEATED RBC # (test code = NRBC#) 0.00 x10 3/uL 0.0-0.1 N MANUAL DIFF REQUIRED (test code = MDIFF) NO SLIDE REVIEWED, CONSISTENT WITH AUTO DIFF. PLT [id number] 09:03:00* Test Item Value Reference Range Interpretation Comments PLATELET ESTIMATE (test code = PLTEST) 60-75 THOUSAND ADEQUATE PLATELET MORPHOLOGY (test code = PLTMORPH) LARGE PLATELETS [id number] 06:17:00* Test Item Value Reference Range Interpretation Comments GLUBED (test code = GLUBED) 145 MG/DL 70-110 H Performed by certified threader operator at [facility] BASIC METABOLIC [id number] 05:54:00* Test Item Value Reference Range Interpretation Comments SODIUM (test code = NA) 142 mEq/L 134-147 N POTASSIUM (test code = K) 3.1 mEq/L 3.4-5.0 L CHLORIDE (test code = CL) 109 mEq/L 100-108 H CARBON DIOXIDE (test code = CO2) 28 mEq/L 21-33 N ANION GAP (test code = GAP) 8 0-20 N GLUCOSE (test code = GLU) 129 mg/dL 70-110 H BLOOD UREA NITROGEN (test code = BUN) 31 mg/dL 7-18 H GLOMERULAR FILTRATION RATE (test code = GFR) 85.4 80-90 N Units of measure = ml/min/1.73 m2 CREATININE (test code = CREAT) 0.7 mg/dL 0.6-1.3 N CALCIUM (test code = CA) 8.1 mg/dL 8.0-10.5 N [id number] 05:54:00* Test Item Value Reference Range Interpretation Comments PHOSPHOROUS (test code = PHOS) 3.4 mg/dL 2.5-4.9 [id number] 05:54:00* Test Item Value Reference Range Interpretation Comments MAGNESIUM (test code = MAG) 1.60 mg/dL 1.8-2.4 L [id number] 05:54:00* Test Item Value Reference Range Interpretation Comments PREALBUMIN (test code = PREALB) 5.6 mg/dL 16.0-40.0 L CBC W/AUTO [id number] 05:23:00* Test Item Value Reference Range Interpretation Comments WHITE BLOOD CELL (test code = WBC) 11.33 x10 3/uL 4.5-11.0 H RED BLOOD CELL (test code = RBC) 2.83 x10 6/uL 3.54-5.02 L HEMOGLOBIN (test code = HGB) 8.4 g/dL 11.0-15.0 L HEMATOCRIT (test code = HCT) 25.6 % 33.0-45.0 L MEAN CELL VOLUME (test code = MCV) 90.5 fL 81.0-99.0 MEAN CELL HGB (test code = MCH) 29.7 pg 27.0-33.0 N MEAN CELL HGB CONCETRATION (test code = MCHC) 32.8 g/dL 33.0-37. 0 L RED CELL DISTRIBUTION WIDTH CV (test code = RDW) 17.0 % 11.5- 14.5 H RED CELL DISTRIBUTION WIDTH SD (test code = RDW-SD) 53.3 fL 37 .0-54.0 N PLATELET COUNT (test code = PLT) x10 3/uL 150-400 SEE PLTS. ESTIMATE MEAN PLATELET VOLUME (test code = MPV) 12.9 fL 7.0-9.0 H LYMPHOCYTE % (test code = LY%) % 14.0-32.0 MANUAL DIFF REQUIRED (test code = MDIFF) PLT [id number] 05:23:00* Test Item Value Reference Range Interpretation Comments PLATELET ESTIMATE (test code = PLTEST) THOUSAND ADEQUATE CBC W/AUTO [id number] 05:23:00* Test Item Value Reference Range Interpretation Comments WHITE BLOOD CELL (test code = WBC) 11.33 x10 3/uL 4.5-11.0 H RED BLOOD CELL (test code = RBC) 2.83 x10 6/uL 3.54-5.02 L HEMOGLOBIN (test code = HGB) 8.4 g/dL 11.0-15.0 L HEMATOCRIT (test code = HCT) 25.6 % 33.0-45.0 L MEAN CELL VOLUME (test code = MCV) 90.5 fL 81.0-99.0 MEAN CELL HGB (test code = MCH) 29.7 pg 27.0-33.0 N MEAN CELL HGB CONCETRATION (test code = MCHC) 32.8 g/dL 33.0-37. 0 L RED CELL DISTRIBUTION WIDTH CV (test code = RDW) 17.0 % 11.5- 14.5 H RED CELL DISTRIBUTION WIDTH SD (test code = RDW-SD) 53.3 fL 37 .0-54.0 N PLATELET COUNT (test code = PLT) x10 3/uL 150-400 SEE PLTS. ESTIMATE MEAN PLATELET VOLUME (test code = MPV) 12.9 fL 7.0-9.0 H LYMPHOCYTE % (test code = LY%) % 14.0-32.0 MANUAL DIFF REQUIRED (test code = MDIFF) PLT [id number] 05:23:00* Test Item Value Reference Range Interpretation Comments PLATELET ESTIMATE (test code = PLTEST) THOUSAND ADEQUATE [id number] 00:44:00* Test Item Value Reference Range Interpretation Comments GLUBED (test code = GLUBED) 127 MG/DL 70-110 H Performed by certified threader operator at [facility] CBC W/AUTO [id number] 21:41:00* Test Item Value Reference Range Interpretation Comments WHITE BLOOD CELL (test code = WBC) 10.73 x10 3/uL 4.5-11.0 N RED BLOOD CELL (test code = RBC) 2.30 x10 6/uL 3.54-5.02 L HEMOGLOBIN (test code = HGB) 6.9 g/dL 11.0-15.0 L HEMATOCRIT (test code = HCT) 21.6 % 33.0-45.0 L MEAN CELL VOLUME (test code = MCV) 93.9 fL 81.0-99.0 N MEAN CELL HGB (test code = MCH) 30.0 pg 27.0-33.0 N MEAN CELL HGB CONCETRATION (test code = MCHC) 31.9 g/dL 33.0-37. 0 L RED CELL DISTRIBUTION WIDTH CV (test code = RDW) 17.2 % 11.5- 14.5 H RED CELL DISTRIBUTION WIDTH SD (test code = RDW-SD) 54.9 fL 37 .0-54.0 H PLATELET COUNT (test code = PLT) x10 3/uL 150-400 SEE PLT EST. MEAN PLATELET VOLUME (test code = MPV) 12.7 fL 7.0-9.0 H NEUTROPHIL % (test code = NT%) 93.6 % 56.0-77.0 H IMMATURE GRANULOCYTE % (test code = IG%) 0.8 % 0.0-2.0 N LYMPHOCYTE % (test code = LY%) 2.1 % 14.0-32.0 L MONOCYTE % (test code = MO%) 3.2 % 4.8-9.0 L EOSINOPHIL % (test code = EO%) 0.2 % 0.3-3.7 L BASOPHIL % (test code = BA%) 0.1 % 0.0-2.0 N NUCLEATED RBC % (test code = NRBC%) 0.0 % 0-0 N NEUTROPHIL # (test code = NT#) 10.05 x10 3/uL 2.0-7.6 H IMMATURE GRANULOCYTE # (test code = IG#) 0.09 x10 3/uL 0.00-0.03 H LYMPHOCYTE # (test code = LY#) 0.22 x10 3/uL 1.0-3.8 L MONOCYTE # (test code = MO#) 0.34 x10 3/uL 0.1-0.8 N EOSINOPHIL # (test code = EO#) 0.02 x10 3/uL 0.0-0.2 N BASOPHIL # (test code = BA#) 0.01 x10 3/uL 0.0-0.2 N NUCLEATED RBC # (test code = NRBC#) 0.00 x10 3/uL 0.0-0.1 N MANUAL DIFF REQUIRED (test code = MDIFF) NO PLT [id number] 21:41:00* Test Item Value Reference Range Interpretation Comments PLATELET ESTIMATE (test code = PLTEST) 80-100 THOUSAND ADEQUATE PLATELET MORPHOLOGY (test code = PLTMORPH) LARGE PLATELETS LARGE PLTS AND GIANT PLTS SEEN CBC W/AUTO [id number] 21:39:00* Test Item Value Reference Range Interpretation Comments WHITE BLOOD CELL (test code = WBC) 10.73 x10 3/uL 4.5-11.0 N RED BLOOD CELL (test code = RBC) 2.30 x10 6/uL 3.54-5.02 L HEMOGLOBIN (test code = HGB) 6.9 g/dL 11.0-15.0 L HEMATOCRIT (test code = HCT) 21.6 % 33.0-45.0 L MEAN CELL VOLUME (test code = MCV) 93.9 fL 81.0-99.0 N MEAN CELL HGB (test code = MCH) 30.0 pg 27.0-33.0 N MEAN CELL HGB CONCETRATION (test code = MCHC) 31.9 g/dL 33.0-37. 0 L RED CELL DISTRIBUTION WIDTH CV (test code = RDW) 17.2 % 11.5- 14.5 H RED CELL DISTRIBUTION WIDTH SD (test code = RDW-SD) 54.9 fL 37 .0-54.0 H PLATELET COUNT (test code = PLT) x10 3/uL 150-400 SEE PLT EST. MEAN PLATELET VOLUME (test code = MPV) 12.7 fL 7.0-9.0 H NEUTROPHIL % (test code = NT%) 93.6 % 56.0-77.0 H IMMATURE GRANULOCYTE % (test code = IG%) 0.8 % 0.0-2.0 N LYMPHOCYTE % (test code = LY%) 2.1 % 14.0-32.0 L MONOCYTE % (test code = MO%) 3.2 % 4.8-9.0 L EOSINOPHIL % (test code = EO%) 0.2 % 0.3-3.7 L BASOPHIL % (test code = BA%) 0.1 % 0.0-2.0 N NUCLEATED RBC % (test code = NRBC%) 0.0 % 0-0 N NEUTROPHIL # (test code = NT#) 10.05 x10 3/uL 2.0-7.6 H IMMATURE GRANULOCYTE # (test code = IG#) 0.09 x10 3/uL 0.00-0.03 H LYMPHOCYTE # (test code = LY#) 0.22 x10 3/uL 1.0-3.8 L MONOCYTE # (test code = MO#) 0.34 x10 3/uL 0.1-0.8 N EOSINOPHIL # (test code = EO#) 0.02 x10 3/uL 0.0-0.2 N BASOPHIL # (test code = BA#) 0.01 x10 3/uL 0.0-0.2 N NUCLEATED RBC # (test code = NRBC#) 0.00 x10 3/uL 0.0-0.1 N MANUAL DIFF REQUIRED (test code = MDIFF) NO PLT [id number] 21:39:00* Test Item Value Reference Range Interpretation Comments PLATELET ESTIMATE (test code = PLTEST) THOUSAND ADEQUATE CBC W/AUTO [id number] 21:39:00* Test Item Value Reference Range Interpretation Comments WHITE BLOOD CELL (test code = WBC) 10.73 x10 3/uL 4.5-11.0 N RED BLOOD CELL (test code = RBC) 2.30 x10 6/uL 3.54-5.02 L HEMOGLOBIN (test code = HGB) 6.9 g/dL 11.0-15.0 L HEMATOCRIT (test code = HCT) 21.6 % 33.0-45.0 L MEAN CELL VOLUME (test code = MCV) 93.9 fL 81.0-99.0 N MEAN CELL HGB (test code = MCH) 30.0 pg 27.0-33.0 N MEAN CELL HGB CONCETRATION (test code = MCHC) 31.9 g/dL 33.0-37. 0 L RED CELL DISTRIBUTION WIDTH CV (test code = RDW) 17.2 % 11.5- 14.5 H RED CELL DISTRIBUTION WIDTH SD (test code = RDW-SD) 54.9 fL 37 .0-54.0 H PLATELET COUNT (test code = PLT) x10 3/uL 150-400 SEE PLT EST. MEAN PLATELET VOLUME (test code = MPV) 12.7 fL 7.0-9.0 H NEUTROPHIL % (test code = NT%) 93.6 % 56.0-77.0 H IMMATURE GRANULOCYTE % (test code = IG%) 0.8 % 0.0-2.0 N LYMPHOCYTE % (test code = LY%) 2.1 % 14.0-32.0 L MONOCYTE % (test code = MO%) 3.2 % 4.8-9.0 L EOSINOPHIL % (test code = EO%) 0.2 % 0.3-3.7 L BASOPHIL % (test code = BA%) 0.1 % 0.0-2.0 N NUCLEATED RBC % (test code = NRBC%) 0.0 % 0-0 N NEUTROPHIL # (test code = NT#) 10.05 x10 3/uL 2.0-7.6 H IMMATURE GRANULOCYTE # (test code = IG#) 0.09 x10 3/uL 0.00-0.03 H LYMPHOCYTE # (test code = LY#) 0.22 x10 3/uL 1.0-3.8 L MONOCYTE # (test code = MO#) 0.34 x10 3/uL 0.1-0.8 N EOSINOPHIL # (test code = EO#) 0.02 x10 3/uL 0.0-0.2 N BASOPHIL # (test code = BA#) 0.01 x10 3/uL 0.0-0.2 N NUCLEATED RBC # (test code = NRBC#) 0.00 x10 3/uL 0.0-0.1 N MANUAL DIFF REQUIRED (test code = MDIFF) NO PLT [id number] 21:39:00* Test Item Value Reference Range Interpretation Comments PLATELET ESTIMATE (test code = PLTEST) THOUSAND ADEQUATE CBC W/AUTO [id number] 21:35:00* Test Item Value Reference Range Interpretation Comments WHITE BLOOD CELL (test code = WBC) 10.73 x10 3/uL 4.5-11.0 N RED BLOOD CELL (test code = RBC) 2.30 x10 6/uL 3.54-5.02 L HEMOGLOBIN (test code = HGB) 6.9 g/dL 11.0-15.0 L HEMATOCRIT (test code = HCT) 21.6 % 33.0-45.0 L MEAN CELL VOLUME (test code = MCV) 93.9 fL 81.0-99.0 N MEAN CELL HGB (test code = MCH) 30.0 pg 27.0-33.0 N MEAN CELL HGB CONCETRATION (test code = MCHC) 31.9 g/dL 33.0-37. 0 L RED CELL DISTRIBUTION WIDTH CV (test code = RDW) 17.2 % 11.5- 14.5 H RED CELL DISTRIBUTION WIDTH SD (test code = RDW-SD) 54.9 fL 37 .0-54.0 H PLATELET COUNT (test code = PLT) x10 3/uL 150-400 SEE PLT EST. MEAN PLATELET VOLUME (test code = MPV) 12.7 fL 7.0-9.0 H NEUTROPHIL % (test code = NT%) 93.6 % 56.0-77.0 H IMMATURE GRANULOCYTE % (test code = IG%) 0.8 % 0.0-2.0 N LYMPHOCYTE % (test code = LY%) 2.1 % 14.0-32.0 L MONOCYTE % (test code = MO%) 3.2 % 4.8-9.0 L EOSINOPHIL % (test code = EO%) 0.2 % 0.3-3.7 L BASOPHIL % (test code = BA%) 0.1 % 0.0-2.0 N NUCLEATED RBC % (test code = NRBC%) 0.0 % 0-0 N NEUTROPHIL # (test code = NT#) 10.05 x10 3/uL 2.0-7.6 H IMMATURE GRANULOCYTE # (test code = IG#) 0.09 x10 3/uL 0.00-0.03 H LYMPHOCYTE # (test code = LY#) 0.22 x10 3/uL 1.0-3.8 L MONOCYTE # (test code = MO#) 0.34 x10 3/uL 0.1-0.8 N EOSINOPHIL # (test code = EO#) 0.02 x10 3/uL 0.0-0.2 N BASOPHIL # (test code = BA#) 0.01 x10 3/uL 0.0-0.2 N NUCLEATED RBC # (test code = NRBC#) 0.00 x10 3/uL 0.0-0.1 N MANUAL DIFF REQUIRED (test code = MDIFF) NO CBC W/AUTO [id number] 20:47:00* Test Item Value Reference Range Interpretation Comments WHITE BLOOD CELL (test code = WBC) 10.73 x10 3/uL 4.5-11.0 N RED BLOOD CELL (test code = RBC) 2.30 x10 6/uL 3.54-5.02 L HEMOGLOBIN (test code = HGB) 6.9 g/dL 11.0-15.0 L HEMATOCRIT (test code = HCT) 21.6 % 33.0-45.0 L MEAN CELL VOLUME (test code = MCV) 93.9 fL 81.0-99.0 N MEAN CELL HGB (test code = MCH) 30.0 pg 27.0-33.0 N MEAN CELL HGB CONCETRATION (test code = MCHC) 31.9 g/dL 33.0-37. 0 L RED CELL DISTRIBUTION WIDTH CV (test code = RDW) 17.2 % 11.5- 14.5 H RED CELL DISTRIBUTION WIDTH SD (test code = RDW-SD) 54.9 fL 37 .0-54.0 H PLATELET COUNT (test code = PLT) x10 3/uL 150-400 SEE PLT EST. MEAN PLATELET VOLUME (test code = MPV) 12.7 fL 7.0-9.0 H LYMPHOCYTE % (test code = LY%) % 14.0-32.0 MANUAL DIFF REQUIRED (test code = MDIFF) [id number] 17:22:00* Test Item Value Reference Range Interpretation Comments GLUBED (test code = GLUBED) 95 MG/DL 70-110 N Performed by certified threader operator at [facility] - [facility] [id number] 17:14:00 FAX: Jordy Martinez DO [phone] [place]: St: ADM FAX: Dwayne Millan [phone] Name: HEIDI STEINER [facility] : 1960 Age/S: 58/F [address] [place] [address] Unit #: [id number] Loc: G.M324 [facility] [place] [address] Phys: Joycelyn Person MD Acct: [id number] Dis Date: Status: ADM IN PHONE #: [phone] Exam Date: 12/20/2018 1651 FAX #: [phone] Reason: VASCULAR ACCESS FOR IVC FILTER PLACEMENT EXAMS: CPT CODE: [id number] [facility] ACCESS [id number] PROCEDURE: Inferior vena cavogram. Placement of retr [...] Signed Report (CONTINUED) FAX: Jordy Martinez DO [phone] [place]: St: [facility] FAX: Dwayne Millan [phone] -------- Name: HEIDI STEINER [facility] : 1960 Age/S: 58/F [address] [place] [address] Unit #: [id number] Loc: G.M324 [place] [address] Phys: Joycelyn Araiza MD Acct: [id number] Dis Date: Status: ADM IN [facility] NE #: [phone] Exam Date: 12/20/2018 1651 FAX #: [phone] Reason: VASCULAR ACCESS FOR IVC FILTER PLACEMENT E XAMS: CPT CODE: [id number] [facility] ACCESS 30548 <Continued> IMPRESSION: 1. Technically successful placement of retrievable inferior vena cava filter using ultrasound and fluoroscopic guidance. 2. Normal inferior vena cavogram. at 1714 Reported and signed by: Madelyn Christine D.O. CC: Jordy Gambino DO; Joycelyn Person MD Technologist: Angela Kemp RT(R); Lori Ibarra RT(R)(CT) Trnmnrd Date/Time/By: 12/20/2018 (143) : By: [email or web address] Orig Print D/T: S: 12/20/2018 (9974) PAGE 2 Signed Report - INSERT IVC ENDO [id number] 17:14:00 FAX: Jordy Martinez DO [phone] [place]: St: ADM FAX: Dre Lezama MD [phone] FAX: Dwayne Millan --------- Name: HEIDI STEINER [facility] : 1960 Age/S: 58/F [address] [place] [address] it #: [id number] Loc: G.M324 [place] [address] Phys: Dre Alejandre MD Acct: [id number] Dis Date: Status: ADM IN PH ONE #: [phone] Exam Date: 12/20/2018 1651 FAX #: [phone] Reason: EXAMS: CPT CODE: [id number] IN SERT IVC ENDO W/IMAG 13285 PROCEDURE: Inferior vena cavogram. Placement of retrievable [...] positioned. Inferior vena cavagram was performed. The Cook celect inferior vena cava filter was then loaded [...] Report ( CONTINUED) FAX: Jordy Martinez DO [phone] [place]: St: [facility] FAX: Dre Lezama MD [phone] FAX: Beatrice Millan [phone] Name: HEIDI STEINER [facility] : 1960 Age/S: 58/F [address] [place] [address] Unit #: [id number] Loc: [address] [address] Phys: Dre Alejandre MD cct: [id number] Dis Date: Status: ADM IN PHONE #: [phone] Exam Date: 12/20/2018 165 FAX #: [phone] Reason: EXAMS: CPT CODE: [id number] INSERT IVC ENDO W/IMAG 82269 < Continued> IMPRESSION: 1. Technically successful placement of retrievable inferior vena cava filter using ultrasound and fluoroscopic guidance. 2. Normal inferior vena cavogram. at 1714 Reported and signed by: Madelyn Christine D.O. CC: Jordy Gambino DO; Dre Alejandre MD; Joycelyn Person MD Technologist: Angela Kemp RT(R); Lori Ibarra RT(R)(CT) Trnscrd Date/Time/By: 12/20/2018 (1274) : By: [email or web address] Orig Print D/T: S: 12/20/2018 (0807) PAGE 2 Signed Report [id number] 15:07:00* Test Item Value Reference Range Interpretation Comments GLUBED (test code = GLUBED) 130 MG/DL 70-110 H Performed by certified threader operator at [facility] CBC W/AUTO [id number] 10:03:00* Test Item Value Reference Range Interpretation Comments WHITE BLOOD CELL (test code = WBC) 10.44 x10 3/uL 4.5-11.0 N RED BLOOD CELL (test code = RBC) 2.51 x10 6/uL 3.54-5.02 L HEMOGLOBIN (test code = HGB) 7.5 g/dL 11.0-15.0 L HEMATOCRIT (test code = HCT) 23.6 % 33.0-45.0 L MEAN CELL VOLUME (test code = MCV) 94.0 fL 81.0-99.0 N MEAN CELL HGB (test code = MCH) 29.9 pg 27.0-33.0 N MEAN CELL HGB CONCETRATION (test code = MCHC) 31.8 g/dL 33.0-37. 0 L RED CELL DISTRIBUTION WIDTH CV (test code = RDW) 16.5 % 11.5- 14.5 H RED CELL DISTRIBUTION WIDTH SD (test code = RDW-SD) 54.8 fL 37 .0-54.0 H PLATELET COUNT (test code = PLT) 38 x10 3/uL 150-400 L MEAN PLATELET VOLUME (test code = MPV) 12.6 fL 7.0-9.0 H NEUTROPHIL % (test code = NT%) 91.8 % 56.0-77.0 H IMMATURE GRANULOCYTE % (test code = IG%) 1.4 % 0.0-2.0 N LYMPHOCYTE % (test code = LY%) 3.0 % 14.0-32.0 L MONOCYTE % (test code = MO%) 3.2 % 4.8-9.0 L EOSINOPHIL % (test code = EO%) 0.4 % 0.3-3.7 N BASOPHIL % (test code = BA%) 0.2 % 0.0-2.0 N NUCLEATED RBC % (test code = NRBC%) 0.0 % 0-0 N NEUTROPHIL # (test code = NT#) 9.59 x10 3/uL 2.0-7.6 H IMMATURE GRANULOCYTE # (test code = IG#) 0.15 x10 3/uL 0.00-0.03 H LYMPHOCYTE # (test code = LY#) 0.31 x10 3/uL 1.0-3.8 L MONOCYTE # (test code = MO#) 0.33 x10 3/uL 0.1-0.8 N EOSINOPHIL # (test code = EO#) 0.04 x10 3/uL 0.0-0.2 N BASOPHIL # (test code = BA#) 0.02 x10 3/uL 0.0-0.2 N NUCLEATED RBC # (test code = NRBC#) 0.00 x10 3/uL 0.0-0.1 N MANUAL DIFF REQUIRED (test code = MDIFF) NO SLIDE REVIEWED, CONSISTENT WITH AUTO DIFF. COMMENTS: To be done morning of Heart CathPLT [id number] 10:03:00* Test Item Value Reference Range Interpretation Comments PLATELET ESTIMATE (test code = PLTEST) 68-85 THOUSAND ADEQUATE PLATELET MORPHOLOGY (test code = PLTMORPH) LARGE PLATELETS LARGE PLTS AND FEW GIANT PLTS SEEN COMMENTS: To be done morning of Heart CathCBC W/AUTO [id number] 10:01:00* Test Item Value Reference Range Interpretation Comments WHITE BLOOD CELL (test code = WBC) 10.44 x10 3/uL 4.5-11.0 N RED BLOOD CELL (test code = RBC) 2.51 x10 6/uL 3.54-5.02 L HEMOGLOBIN (test code = HGB) 7.5 g/dL 11.0-15.0 L HEMATOCRIT (test code = HCT) 23.6 % 33.0-45.0 L MEAN CELL VOLUME (test code = MCV) 94.0 fL 81.0-99.0 N MEAN CELL HGB (test code = MCH) 29.9 pg 27.0-33.0 N MEAN CELL HGB CONCETRATION (test code = MCHC) 31.8 g/dL 33.0-37. 0 L RED CELL DISTRIBUTION WIDTH CV (test code = RDW) 16.5 % 11.5- 14.5 H RED CELL DISTRIBUTION WIDTH SD (test code = RDW-SD) 54.8 fL 37 .0-54.0 H PLATELET COUNT (test code = PLT) 38 x10 3/uL 150-400 L MEAN PLATELET VOLUME (test code = MPV) 12.6 fL 7.0-9.0 H NEUTROPHIL % (test code = NT%) 91.8 % 56.0-77.0 H IMMATURE GRANULOCYTE % (test code = IG%) 1.4 % 0.0-2.0 N LYMPHOCYTE % (test code = LY%) 3.0 % 14.0-32.0 L MONOCYTE % (test code = MO%) 3.2 % 4.8-9.0 L EOSINOPHIL % (test code = EO%) 0.4 % 0.3-3.7 N BASOPHIL % (test code = BA%) 0.2 % 0.0-2.0 N NUCLEATED RBC % (test code = NRBC%) 0.0 % 0-0 N NEUTROPHIL # (test code = NT#) 9.59 x10 3/uL 2.0-7.6 H IMMATURE GRANULOCYTE # (test code = IG#) 0.15 x10 3/uL 0.00-0.03 H LYMPHOCYTE # (test code = LY#) 0.31 x10 3/uL 1.0-3.8 L MONOCYTE # (test code = MO#) 0.33 x10 3/uL 0.1-0.8 N EOSINOPHIL # (test code = EO#) 0.04 x10 3/uL 0.0-0.2 N BASOPHIL # (test code = BA#) 0.02 x10 3/uL 0.0-0.2 N NUCLEATED RBC # (test code = NRBC#) 0.00 x10 3/uL 0.0-0.1 N MANUAL DIFF REQUIRED (test code = MDIFF) NO SLIDE REVIEWED, CONSISTENT WITH AUTO DIFF. COMMENTS: To be done morning of Heart CathPLT [id number] 10:01:00* Test Item Value Reference Range Interpretation Comments PLATELET ESTIMATE (test code = PLTEST) THOUSAND ADEQUATE COMMENTS: To be done morning of Heart CathCBC W/AUTO [id number] 10:01:00* Test Item Value Reference Range Interpretation Comments WHITE BLOOD CELL (test code = WBC) 10.44 x10 3/uL 4.5-11.0 N RED BLOOD CELL (test code = RBC) 2.51 x10 6/uL 3.54-5.02 L HEMOGLOBIN (test code = HGB) 7.5 g/dL 11.0-15.0 L HEMATOCRIT (test code = HCT) 23.6 % 33.0-45.0 L MEAN CELL VOLUME (test code = MCV) 94.0 fL 81.0-99.0 N MEAN CELL HGB (test code = MCH) 29.9 pg 27.0-33.0 N MEAN CELL HGB CONCETRATION (test code = MCHC) 31.8 g/dL 33.0-37. 0 L RED CELL DISTRIBUTION WIDTH CV (test code = RDW) 16.5 % 11.5- 14.5 H RED CELL DISTRIBUTION WIDTH SD (test code = RDW-SD) 54.8 fL 37 .0-54.0 H PLATELET COUNT (test code = PLT) 38 x10 3/uL 150-400 L MEAN PLATELET VOLUME (test code = MPV) 12.6 fL 7.0-9.0 H NEUTROPHIL % (test code = NT%) 91.8 % 56.0-77.0 H IMMATURE GRANULOCYTE % (test code = IG%) 1.4 % 0.0-2.0 N LYMPHOCYTE % (test code = LY%) 3.0 % 14.0-32.0 L MONOCYTE % (test code = MO%) 3.2 % 4.8-9.0 L EOSINOPHIL % (test code = EO%) 0.4 % 0.3-3.7 N BASOPHIL % (test code = BA%) 0.2 % 0.0-2.0 N NUCLEATED RBC % (test code = NRBC%) 0.0 % 0-0 N NEUTROPHIL # (test code = NT#) 9.59 x10 3/uL 2.0-7.6 H IMMATURE GRANULOCYTE # (test code = IG#) 0.15 x10 3/uL 0.00-0.03 H LYMPHOCYTE # (test code = LY#) 0.31 x10 3/uL 1.0-3.8 L MONOCYTE # (test code = MO#) 0.33 x10 3/uL 0.1-0.8 N EOSINOPHIL # (test code = EO#) 0.04 x10 3/uL 0.0-0.2 N BASOPHIL # (test code = BA#) 0.02 x10 3/uL 0.0-0.2 N NUCLEATED RBC # (test code = NRBC#) 0.00 x10 3/uL 0.0-0.1 N MANUAL DIFF REQUIRED (test code = MDIFF) NO SLIDE REVIEWED, CONSISTENT WITH AUTO DIFF. COMMENTS: To be done morning of Heart CathPLT [id number] 10:01:00* Test Item Value Reference Range Interpretation Comments PLATELET ESTIMATE (test code = PLTEST) THOUSAND ADEQUATE COMMENTS: To be done morning of Heart CathSURGICAL [id number] 08:26:00 RUN DATE: 12/20/18 [facility] *LIVE* PAGE 1 RUN TIME: 825 Specimen Inqui ry RUN USER: INTERFACE PATIENT: HEIDI STEINER ACCT #: [id number] LOC: [facility] U #: [id number] AGE/SX: 58/F ROOM: [facility] [id number]/29/18REG DR: Long Person : 56 BED: 1 DIS: STATUS: ADM IN TLOC: SPEC #: [id number] RECD: 12/17/18 STATUS: SIVAN REQ #: [id number] THOMPSON: 12/17/[address]: Long Person MD ENTERED: 12/19/18 SP TYPE: SURG SPEC OTHR DR: Shakila Mayorga i, MD, Svetang V MD Gibberman, Jeffrey B MD Jogi, Vikas MD PalmJordy [facility],Dre Hackett MD, MD, Abdul R MD Pustilni k, Terri B MDORDERED: GM LEVEL 4 CODES: [id number] - SOFT TISSUES, N [id number] - COLON, NOS [place]IES [place]: [place] [address] [place] [address] Judith Orozco MD [address] [place] [address] Jordan Aldridge MD [address] [facility] [address] [place], [place] [address] Naif Alex MD [address] [place] [address] 98 Jordy Gambino DO [address] [facility] [address] [place] [address] Terrence Bourgeois JR, MD [address] [facility] [address] [place], [place] [id number] CONTINUED ON NEXT PAGE RUN DATE: 12/20/18 [facility] *COLETTE WARE* PAGE 2 RUN TIME: 825 Speci men Inquiry RUN USER: INTERFACE SPEC #: [id number] PATIENT: HEIDI SENA #[id number] (Continued) COPIES TO: (C Dre Alexander MD [address] [place], [place] [id number] Kleber Mercado MD [address] [facility] [place] [address] Jami Blas MD [address] [place], [place] [id number] Joycelyn Person MD [address] [place] [address] [address] [place] [address] [email or web address] PROCED URES: GM LEVEL 4 (Incomplete) TISSUES: [...] c olon adjacent to stapled margin (C)-(D) claims customer service representative sections. Received in formalin labeled abdominal wall necrotic fat skin and adipose is a 13 x 9 x 3 cm aggregate of more skin with areas of ulceration and galdamez d iscoloration with underlying indurated adipose. Historic Interpreter sections are submitted (E)-(J). MICROSC OPIC EXAMINATION: Specimen #1 reveals skin and colonic tissue with CONTINUED ON NEXT PAGE RUN DATE: 12/20/18 [facility] *LIVE* PAGE 3 RUN DWAYNE E: 0826 Specimen Inquiry RUN USER: INTERFACE -SPEC #: [id number] PATIENT: HEIDI STEINER #[id number] (Continued) GROSS AND MICROSCOPIC (Continued) necro sis, hemorrhage, acute and chronic inflammation. The second specimen reveals skin and subcutaneous tissue with necrosis, hemorrhage, and acute and chronic inflammation. POST-OP DIAGNOSIS None given PRE-OP DIAGNOSIS None given Elicia santiago SIGNATURE ON FILE Christie Sylvester MD 12/20/18 0826 -- END OF REPORT BASIC METABOLIC [id number] 06:05:00* Test Item Value Reference Range Interpretation Comments SODIUM (test code = NA) 140 mEq/L 134-147 N POTASSIUM (test code = K) 3.3 mEq/L 3.4-5.0 L CHLORIDE (test code = CL) 108 mEq/L 100-108 N CARBON DIOXIDE (test code = CO2) 29 mEq/L 21-33 N ANION GAP (test code = GAP) 6 0-20 N GLUCOSE (test code = GLU) 139 mg/dL 70-110 H BLOOD UREA NITROGEN (test code = BUN) 34 mg/dL 7-18 H GLOMERULAR FILTRATION RATE (test code = GFR) 73.2 80-90 L Units of measure = ml/min/1.73 m2 CREATININE (test code = CREAT) 0.8 mg/dL 0.6-1.3 N CALCIUM (test code = CA) 8.2 mg/dL 8.0-10.5 N COMMENTS: To be done morning of Heart CathHEPATIC FUNCTION [id number] 06:05:00* Test Item Value Reference Range Interpretation Comments TOTAL PROTEIN (test code = PROT) 4.6 g/dL 6.4-8.2 L ALBUMIN (test code = ALB) 1.40 g/dL 3.4-5.0 L BILIRUBIN TOTAL (test code = BILT) 2.10 mg/dL 0.0-1.0 H BILIRUBIN DIRECT (test code = BILD) 1.70 MG/DL 0.0-0.30 H BILIRUBIN INDIRECT (test code = BILIND) 0.40 MG/DL SGOT/AST (test code = AST) 113 IUnit/L 15-37 H SGPT/ALT (test code = ALT) 70 IUnit/L 15-65 H ALKALINE PHOSPHATASE TOTAL (test code = ALKP) 156 IUnit/L 20-125 H COMMENTS: To be done morning of Heart [id number] 06:05:00* Test Item Value Reference Range Interpretation Comments PHOSPHOROUS (test code = PHOS) 1.9 mg/dL 2.5-4.9 L COMMENTS: To be done morning of Heart [id number] 06:05:00* Test Item Value Reference Range Interpretation Comments MAGNESIUM (test code = MAG) 1.80 mg/dL 1.8-2.4 N COMMENTS: To be done morning of Heart CathBASIC METABOLIC [id number] 06:03:00* Test Item Value Reference Range Interpretation Comments SODIUM (test code = NA) 140 mEq/L 134-147 N POTASSIUM (test code = K) 3.3 mEq/L 3.4-5.0 L CHLORIDE (test code = CL) 108 mEq/L 100-108 N CARBON DIOXIDE (test code = CO2) 29 mEq/L 21-33 N ANION GAP (test code = GAP) 6 0-20 N GLUCOSE (test code = GLU) 139 mg/dL 70-110 H BLOOD UREA NITROGEN (test code = BUN) 34 mg/dL 7-18 H GLOMERULAR FILTRATION RATE (test code = GFR) 73.2 80-90 L Units of measure = ml/min/1.73 m2 CREATININE (test code = CREAT) 0.8 mg/dL 0.6-1.3 N CALCIUM (test code = CA) 8.2 mg/dL 8.0-10.5 N COMMENTS: To be done morning of Heart CathHEPATIC FUNCTION [id number] 06:03:00* Test Item Value Reference Range Interpretation Comments TOTAL PROTEIN (test code = PROT) g/dL 6.4-8.2 ALBUMIN (test code = ALB) 1.40 g/dL 3.4-5.0 L BILIRUBIN TOTAL (test code = BILT) mg/dL 0.0-1.0 BILIRUBIN DIRECT (test code = BILD) 1.70 MG/DL 0.0-0.30 H SGOT/AST (test code = AST) 113 IUnit/L 15-37 H SGPT/ALT (test code = ALT) 70 IUnit/L 15-65 H ALKALINE PHOSPHATASE TOTAL (test code = ALKP) IUnit/L 20-125 COMMENTS: To be done morning of Heart [id number] 06:03:00* Test Item Value Reference Range Interpretation Comments PHOSPHOROUS (test code = PHOS) 1.9 mg/dL 2.5-4.9 L COMMENTS: To be done morning of Heart [id number] 06:03:00* Test Item Value Reference Range Interpretation Comments MAGNESIUM (test code = MAG) 1.80 mg/dL 1.8-2.4 N COMMENTS: To be done morning of Heart CathCBC W/AUTO [id number] 05:51:00* Test Item Value Reference Range Interpretation Comments WHITE BLOOD CELL (test code = WBC) 10.44 x10 3/uL 4.5-11.0 N RED BLOOD CELL (test code = RBC) 2.51 x10 6/uL 3.54-5.02 L HEMOGLOBIN (test code = HGB) 7.5 g/dL 11.0-15.0 L HEMATOCRIT (test code = HCT) 23.6 % 33.0-45.0 L MEAN CELL VOLUME (test code = MCV) 94.0 fL 81.0-99.0 N MEAN CELL HGB (test code = MCH) 29.9 pg 27.0-33.0 N MEAN CELL HGB CONCETRATION (test code = MCHC) 31.8 g/dL 33.0-37. 0 L RED CELL DISTRIBUTION WIDTH CV (test code = RDW) 16.5 % 11.5- 14.5 H RED CELL DISTRIBUTION WIDTH SD (test code = RDW-SD) 54.8 fL 37 .0-54.0 H PLATELET COUNT (test code = PLT) 38 x10 3/uL 150-400 L MEAN PLATELET VOLUME (test code = MPV) 12.6 fL 7.0-9.0 H LYMPHOCYTE % (test code = LY%) % 14.0-32.0 MANUAL DIFF REQUIRED (test code = MDIFF) COMMENTS: To be done morning of Heart [id number] 00:01:00* Test Item Value Reference Range Interpretation Comments GLUBED (test code = GLUBED) 130 MG/DL 70-110 H Performed by certified threader operator at [facility] [id number] 18:08:00* Test Item Value Reference Range Interpretation Comments GLUBED (test code = GLUBED) 128 MG/DL 70-110 H Performed by certified threader operator at [facility] CBC W/AUTO [id number] 14:27:00* Test Item Value Reference Range Interpretation Comments WHITE BLOOD CELL (test code = WBC) 9.23 x10 3/uL 4.5-11.0 N RED BLOOD CELL (test code = RBC) 2.64 x10 6/uL 3.54-5.02 L HEMOGLOBIN (test code = HGB) 8.0 g/dL 11.0-15.0 L HEMATOCRIT (test code = HCT) 24.7 % 33.0-45.0 L MEAN CELL VOLUME (test code = MCV) 93.6 fL 81.0-99.0 N MEAN CELL HGB (test code = MCH) 30.3 pg 27.0-33.0 N MEAN CELL HGB CONCETRATION (test code = MCHC) 32.4 g/dL 33.0-37. 0 L RED CELL DISTRIBUTION WIDTH CV (test code = RDW) 16.2 % 11.5- 14.5 H RED CELL DISTRIBUTION WIDTH SD (test code = RDW-SD) 55.5 fL 37 .0-54.0 H PLATELET COUNT (test code = PLT) 26 x10 3/uL 150-400 L IMMATURE PLATELET FRACTION (test code = IPF) 14.0 % 0.9-11.2 H MEAN PLATELET VOLUME (test code = MPV) 12.9 fL 7.0-9.0 H NEUTROPHIL % (test code = NT%) 92.3 % 56.0-77.0 H IMMATURE GRANULOCYTE % (test code = IG%) 0.8 % 0.0-2.0 N LYMPHOCYTE % (test code = LY%) 3.0 % 14.0-32.0 L MONOCYTE % (test code = MO%) 3.5 % 4.8-9.0 L EOSINOPHIL % (test code = EO%) 0.3 % 0.3-3.7 N BASOPHIL % (test code = BA%) 0.1 % 0.0-2.0 N NUCLEATED RBC % (test code = NRBC%) 0.3 % 0-0 H NEUTROPHIL # (test code = NT#) 8.52 x10 3/uL 2.0-7.6 H IMMATURE GRANULOCYTE # (test code = IG#) 0.07 x10 3/uL 0.00-0.03 H LYMPHOCYTE # (test code = LY#) 0.28 x10 3/uL 1.0-3.8 L MONOCYTE # (test code = MO#) 0.32 x10 3/uL 0.1-0.8 N EOSINOPHIL # (test code = EO#) 0.03 x10 3/uL 0.0-0.2 N BASOPHIL # (test code = BA#) 0.01 x10 3/uL 0.0-0.2 N NUCLEATED RBC # (test code = NRBC#) 0.03 x10 3/uL 0.0-0.1 N MANUAL DIFF REQUIRED (test code = MDIFF) NO SLIDE REVIEWED, CONSISTENT WITH AUTO DIFF. COMMENTS: Daily while in [id number] 12:45:00* Test Item Value Reference Range Interpretation Comments GLUBED (test code = GLUBED) 125 MG/DL 70-110 H Performed by certified threader operator at [facility] CBC W/AUTO [id number] 10:40:00* Test Item Value Reference Range Interpretation Comments WHITE BLOOD CELL (test code = WBC) 9.23 x10 3/uL 4.5-11.0 N RED BLOOD CELL (test code = RBC) 2.64 x10 6/uL 3.54-5.02 L HEMOGLOBIN (test code = HGB) 8.0 g/dL 11.0-15.0 L HEMATOCRIT (test code = HCT) 24.7 % 33.0-45.0 L MEAN CELL VOLUME (test code = MCV) 93.6 fL 81.0-99.0 N MEAN CELL HGB (test code = MCH) 30.3 pg 27.0-33.0 N MEAN CELL HGB CONCETRATION (test code = MCHC) 32.4 g/dL 33.0-37. 0 L RED CELL DISTRIBUTION WIDTH CV (test code = RDW) 16.2 % 11.5- 14.5 H RED CELL DISTRIBUTION WIDTH SD (test code = RDW-SD) 55.5 fL 37 .0-54.0 H PLATELET COUNT (test code = PLT) 26 x10 3/uL 150-400 L IMMATURE PLATELET FRACTION (test code = IPF) 14.0 % 0.9-11.2 H MEAN PLATELET VOLUME (test code = MPV) 12.9 fL 7.0-9.0 H LYMPHOCYTE % (test code = LY%) % 14.0-32.0 MANUAL DIFF REQUIRED (test code = MDIFF) NO SLIDE REVIEWED, CONSISTENT WITH AUTO DIFF. COMMENTS: Daily while in ICUC W/AUTO [id number] 07:23:00* Test Item Value Reference Range Interpretation Comments WHITE BLOOD CELL (test code = WBC) 9.23 x10 3/uL 4.5-11.0 N RED BLOOD CELL (test code = RBC) 2.64 x10 6/uL 3.54-5.02 L HEMOGLOBIN (test code = HGB) 8.0 g/dL 11.0-15.0 L HEMATOCRIT (test code = HCT) 24.7 % 33.0-45.0 L MEAN CELL VOLUME (test code = MCV) 93.6 fL 81.0-99.0 N MEAN CELL HGB (test code = MCH) 30.3 pg 27.0-33.0 N MEAN CELL HGB CONCETRATION (test code = MCHC) 32.4 g/dL 33.0-37. 0 L RED CELL DISTRIBUTION WIDTH CV (test code = RDW) 16.2 % 11.5- 14.5 H RED CELL DISTRIBUTION WIDTH SD (test code = RDW-SD) 55.5 fL 37 .0-54.0 H PLATELET COUNT (test code = PLT) 26 x10 3/uL 150-400 L IMMATURE PLATELET FRACTION (test code = IPF) 14.0 % 0.9-11.2 H MEAN PLATELET VOLUME (test code = MPV) 12.9 fL 7.0-9.0 H LYMPHOCYTE % (test code = LY%) % 14.0-32.0 MANUAL DIFF REQUIRED (test code = MDIFF) COMMENTS: Daily while in ICUBASIC METABOLIC [id number] 07:17:00* Test Item Value Reference Range Interpretation Comments SODIUM (test code = NA) 142 mEq/L 134-147 N POTASSIUM (test code = K) 3.2 mEq/L 3.4-5.0 L CHLORIDE (test code = CL) 108 mEq/L 100-108 N CARBON DIOXIDE (test code = CO2) 29 mEq/L 21-33 N ANION GAP (test code = GAP) 8 0-20 N GLUCOSE (test code = GLU) 143 mg/dL 70-110 H BLOOD UREA NITROGEN (test code = BUN) 30 mg/dL 7-18 H GLOMERULAR FILTRATION RATE (test code = GFR) 63.9 80-90 L Units of measure = ml/min/1.73 m2 CREATININE (test code = CREAT) 0.9 mg/dL 0.6-1.3 N CALCIUM (test code = CA) 8.1 mg/dL 8.0-10.5 N COMMENTS: Daily while in ICUHEPATIC FUNCTION [id number] 07:17:00* Test Item Value Reference Range Interpretation Comments TOTAL PROTEIN (test code = PROT) 4.4 g/dL 6.4-8.2 L ALBUMIN (test code = ALB) 1.50 g/dL 3.4-5.0 L BILIRUBIN TOTAL (test code = BILT) 2.20 mg/dL 0.0-1.0 H BILIRUBIN DIRECT (test code = BILD) 1.70 MG/DL 0.0-0.30 H BILIRUBIN INDIRECT (test code = BILIND) 0.50 MG/DL SGOT/AST (test code = AST) 92 IUnit/L 15-37 H SGPT/ALT (test code = ALT) 60 IUnit/L 15-65 N ALKALINE PHOSPHATASE TOTAL (test code = ALKP) 134 IUnit/L 20-125 H COMMENTS: Daily while in [id number] 07:17:00* Test Item Value Reference Range Interpretation Comments PHOSPHOROUS (test code = PHOS) 1.8 mg/dL 2.5-4.9 L COMMENTS: Daily while in [id number] 07:17:00* Test Item Value Reference Range Interpretation Comments MAGNESIUM (test code = MAG) 2.00 mg/dL 1.8-2.4 COMMENTS: Daily while in ICUBASIC METABOLIC [id number] 07:16:00* Test Item Value Reference Range Interpretation Comments SODIUM (test code = NA) 142 mEq/L 134-147 N POTASSIUM (test code = K) 3.2 mEq/L 3.4-5.0 L CHLORIDE (test code = CL) 108 mEq/L 100-108 N CARBON DIOXIDE (test code = CO2) 29 mEq/L 21-33 N ANION GAP (test code = GAP) 8 0-20 N GLUCOSE (test code = GLU) 143 mg/dL 70-110 H BLOOD UREA NITROGEN (test code = BUN) 30 mg/dL 7-18 H GLOMERULAR FILTRATION RATE (test code = GFR) 63.9 80-90 L Units of measure = ml/min/1.73 m2 CREATININE (test code = CREAT) 0.9 mg/dL 0.6-1.3 N CALCIUM (test code = CA) 8.1 mg/dL 8.0-10.5 N COMMENTS: Daily while in ICUHEPATIC FUNCTION [id number] 07:16:00* Test Item Value Reference Range Interpretation Comments TOTAL PROTEIN (test code = PROT) 4.4 g/dL 6.4-8.2 L ALBUMIN (test code = ALB) 1.50 g/dL 3.4-5.0 L BILIRUBIN TOTAL (test code = BILT) mg/dL 0.0-1.0 BILIRUBIN DIRECT (test code = BILD) 1.70 MG/DL 0.0-0.30 H SGOT/AST (test code = AST) 92 IUnit/L 15-37 H SGPT/ALT (test code = ALT) 60 IUnit/L 15-65 N ALKALINE PHOSPHATASE TOTAL (test code = ALKP) IUnit/L 20-125 COMMENTS: Daily while in [id number] 07:16:00* Test Item Value Reference Range Interpretation Comments PHOSPHOROUS (test code = PHOS) 1.8 mg/dL 2.5-4.9 L COMMENTS: Daily while in [id number] 07:16:00* Test Item Value Reference Range Interpretation Comments MAGNESIUM (test code = MAG) 2.00 mg/dL 1.8-2.4 COMMENTS: Daily while in [id number] 06:08:00* Test Item Value Reference Range Interpretation Comments GLUBED (test code = GLUBED) 138 MG/DL 70-110 H Performed by certified threader operator at [facility] [id number] 00:16:00* Test Item Value Reference Range Interpretation Comments GLUBED (test code = GLUBED) 144 MG/DL 70-110 H Performed by certified threader operator at [facility] [id number] 19:47:00* Test Item Value Reference Range Interpretation Comments POTASSIUM (test code = K) 3.1 mEq/L 3.4-5.0 L [id number] 18:03:00* Test Item Value Reference Range Interpretation Comments GLUBED (test code = GLUBED) 120 MG/DL 70-110 H Performed by certified threader operator at [facility] CBC W/AUTO [id number] 12:48:00* Test Item Value Reference Range Interpretation Comments WHITE BLOOD CELL (test code = WBC) 8.08 x10 3/uL 4.5-11.0 N RED BLOOD CELL (test code = RBC) 3.42 x10 6/uL 3.54-5.02 L HEMOGLOBIN (test code = HGB) 10.2 g/dL 11.0-15.0 L HEMATOCRIT (test code = HCT) 31.6 % 33.0-45.0 L MEAN CELL VOLUME (test code = MCV) 92.4 fL 81.0-99.0 N MEAN CELL HGB (test code = MCH) 29.8 pg 27.0-33.0 N MEAN CELL HGB CONCETRATION (test code = MCHC) 32.3 g/dL 33.0-37. 0 L RED CELL DISTRIBUTION WIDTH CV (test code = RDW) 15.9 % 11.5- 14.5 H RED CELL DISTRIBUTION WIDTH SD (test code = RDW-SD) 54.1 fL 37 .0-54.0 H PLATELET COUNT (test code = PLT) 28 x10 3/uL 150-400 L IMMATURE PLATELET FRACTION (test code = IPF) 9.7 % 0.9-11.2 N MEAN PLATELET VOLUME (test code = MPV) 11.8 fL 7.0-9.0 H NEUTROPHIL % (test code = NT%) 89.1 % 56.0-77.0 H IMMATURE GRANULOCYTE % (test code = IG%) 1.2 % 0.0-2.0 N LYMPHOCYTE % (test code = LY%) 4.2 % 14.0-32.0 L MONOCYTE % (test code = MO%) 5.2 % 4.8-9.0 N EOSINOPHIL % (test code = EO%) 0.1 % 0.3-3.7 L BASOPHIL % (test code = BA%) 0.2 % 0.0-2.0 N NUCLEATED RBC % (test code = NRBC%) 0.9 % 0-0 H NEUTROPHIL # (test code = NT#) 7.19 x10 3/uL 2.0-7.6 N IMMATURE GRANULOCYTE # (test code = IG#) 0.10 x10 3/uL 0.00-0.03 H LYMPHOCYTE # (test code = LY#) 0.34 x10 3/uL 1.0-3.8 L MONOCYTE # (test code = MO#) 0.42 x10 3/uL 0.1-0.8 N EOSINOPHIL # (test code = EO#) 0.01 x10 3/uL 0.0-0.2 N BASOPHIL # (test code = BA#) 0.02 x10 3/uL 0.0-0.2 N NUCLEATED RBC # (test code = NRBC#) 0.07 x10 3/uL 0.0-0.1 N MANUAL DIFF REQUIRED (test code = MDIFF) NO COMMENTS: Daily while in ICUPLT [id number] 12:48:00* Test Item Value Reference Range Interpretation Comments PLATELET ESTIMATE (test code = PLTEST) 32-40 THOUSAND ADEQUATE PLATELET MORPHOLOGY (test code = PLTMORPH) GIANT PLATELETS COMMENTS: Daily while in [id number] 12:07:00* Test Item Value Reference Range Interpretation Comments GLUBED (test code = GLUBED) 142 MG/DL 70-110 H Performed by certified threader operator at [facility] - XR CHEST 1 [id number] 07:13:00 FAX: Talat Jordy Gambino [phone] [place]: St: ADM FAX: Alexsandra Barron MD [phone] FAX: Talat XiaoDanisha wassermanallison [phone] Name: HEIDI STEINER [facility] : 1960 Age/S: 58/F [address] [place] [address] Unit #: [id number] Loc: G.M324 [place] [address] Phys: Alexsandra Barron MD Acct: [id number] Dis Date: Status: ADM IN ONE #: [phone] Exam Date: 12/18/2018523 FAX #: [phone] Reason: ETT EXAMS: CPT CODE: [id number] XR CHEST 1 V 01915 - XR CHEST 1 V 12/18/2018 5:00 [...] Person MD Technologist: Laura gilliland, RT(R); Wendi Larose, RT(R) Trnscrd Date/Time/By: 12/18/2018 (0713 ) : By: [email or web address] Orig Print D/T: S: 12/18/2018 (0716) PAGE 1 Signed Report BASIC METABOLIC [id number] 06:27:00* Test Item Value Reference Range Interpretation Comments SODIUM (test code = NA) 143 mEq/L 134-147 N POTASSIUM (test code = K) 2.8 mEq/L 3.4-5.0 LL CHLORIDE (test code = CL) 108 mEq/L 100-108 N CARBON DIOXIDE (test code = CO2) 31 mEq/L 21-33 N ANION GAP (test code = GAP) 7 0-20 N GLUCOSE (test code = GLU) 134 mg/dL 70-110 H BLOOD UREA NITROGEN (test code = BUN) 31 mg/dL 7-18 H GLOMERULAR FILTRATION RATE (test code = GFR) 50.7 80-90 L Units of measure = ml/min/1.73 m2 CREATININE (test code = CREAT) 1.1 mg/dL 0.6-1.3 N CALCIUM (test code = CA) 7.8 mg/dL 8.0-10.5 L COMMENTS: Daily while in ICUHEPATIC FUNCTION [id number] 06:27:00* Test Item Value Reference Range Interpretation Comments TOTAL PROTEIN (test code = PROT) 4.5 g/dL 6.4-8.2 L ALBUMIN (test code = ALB) 1.70 g/dL 3.4-5.0 L BILIRUBIN TOTAL (test code = BILT) 2.40 mg/dL 0.0-1.0 H BILIRUBIN DIRECT (test code = BILD) 1.80 MG/DL 0.0-0.30 H BILIRUBIN INDIRECT (test code = BILIND) 0.60 MG/DL SGOT/AST (test code = AST) 100 IUnit/L 15-37 H SGPT/ALT (test code = ALT) 63 IUnit/L 15-65 N ALKALINE PHOSPHATASE TOTAL (test code = ALKP) 146 IUnit/L 20-125 H COMMENTS: Daily while in [id number] 06:27:00* Test Item Value Reference Range Interpretation Comments PHOSPHOROUS (test code = PHOS) 2.6 mg/dL 2.5-4.9 N COMMENTS: Daily while in [id number] 06:27:00* Test Item Value Reference Range Interpretation Comments MAGNESIUM (test code = MAG) 1.60 mg/dL 1.8-2.4 L COMMENTS: Daily while in ICUCBC W/AUTO [id number] 06:14:00* Test Item Value Reference Range Interpretation Comments WHITE BLOOD CELL (test code = WBC) 8.08 x10 3/uL 4.5-11.0 N RED BLOOD CELL (test code = RBC) 3.42 x10 6/uL 3.54-5.02 L HEMOGLOBIN (test code = HGB) 10.2 g/dL 11.0-15.0 L HEMATOCRIT (test code = HCT) 31.6 % 33.0-45.0 L MEAN CELL VOLUME (test code = MCV) 92.4 fL 81.0-99.0 N MEAN CELL HGB (test code = MCH) 29.8 pg 27.0-33.0 N MEAN CELL HGB CONCETRATION (test code = MCHC) 32.3 g/dL 33.0-37. 0 L RED CELL DISTRIBUTION WIDTH CV (test code = RDW) 15.9 % 11.5- 14.5 H RED CELL DISTRIBUTION WIDTH SD (test code = RDW-SD) 54.1 fL 37 .0-54.0 H PLATELET COUNT (test code = PLT) 28 x10 3/uL 150-400 L IMMATURE PLATELET FRACTION (test code = IPF) 9.7 % 0.9-11.2 N MEAN PLATELET VOLUME (test code = MPV) 11.8 fL 7.0-9.0 H NEUTROPHIL % (test code = NT%) 89.1 % 56.0-77.0 H IMMATURE GRANULOCYTE % (test code = IG%) 1.2 % 0.0-2.0 N LYMPHOCYTE % (test code = LY%) 4.2 % 14.0-32.0 L MONOCYTE % (test code = MO%) 5.2 % 4.8-9.0 N EOSINOPHIL % (test code = EO%) 0.1 % 0.3-3.7 L BASOPHIL % (test code = BA%) 0.2 % 0.0-2.0 N NUCLEATED RBC % (test code = NRBC%) 0.9 % 0-0 H NEUTROPHIL # (test code = NT#) 7.19 x10 3/uL 2.0-7.6 N IMMATURE GRANULOCYTE # (test code = IG#) 0.10 x10 3/uL 0.00-0.03 H LYMPHOCYTE # (test code = LY#) 0.34 x10 3/uL 1.0-3.8 L MONOCYTE # (test code = MO#) 0.42 x10 3/uL 0.1-0.8 N EOSINOPHIL # (test code = EO#) 0.01 x10 3/uL 0.0-0.2 N BASOPHIL # (test code = BA#) 0.02 x10 3/uL 0.0-0.2 N NUCLEATED RBC # (test code = NRBC#) 0.07 x10 3/uL 0.0-0.1 N MANUAL DIFF REQUIRED (test code = MDIFF) NO COMMENTS: Daily while in ICUPLT [id number] 06:14:00* Test Item Value Reference Range Interpretation Comments PLATELET ESTIMATE (test code = PLTEST) THOUSAND ADEQUATE COMMENTS: Daily while in ICUCBC W/AUTO [id number] 06:14:00* Test Item Value Reference Range Interpretation Comments WHITE BLOOD CELL (test code = WBC) 8.08 x10 3/uL 4.5-11.0 N RED BLOOD CELL (test code = RBC) 3.42 x10 6/uL 3.54-5.02 L HEMOGLOBIN (test code = HGB) 10.2 g/dL 11.0-15.0 L HEMATOCRIT (test code = HCT) 31.6 % 33.0-45.0 L MEAN CELL VOLUME (test code = MCV) 92.4 fL 81.0-99.0 N MEAN CELL HGB (test code = MCH) 29.8 pg 27.0-33.0 N MEAN CELL HGB CONCETRATION (test code = MCHC) 32.3 g/dL 33.0-37. 0 L RED CELL DISTRIBUTION WIDTH CV (test code = RDW) 15.9 % 11.5- 14.5 H RED CELL DISTRIBUTION WIDTH SD (test code = RDW-SD) 54.1 fL 37 .0-54.0 H PLATELET COUNT (test code = PLT) 28 x10 3/uL 150-400 L IMMATURE PLATELET FRACTION (test code = IPF) 9.7 % 0.9-11.2 N MEAN PLATELET VOLUME (test code = MPV) 11.8 fL 7.0-9.0 H NEUTROPHIL % (test code = NT%) 89.1 % 56.0-77.0 H IMMATURE GRANULOCYTE % (test code = IG%) 1.2 % 0.0-2.0 N LYMPHOCYTE % (test code = LY%) 4.2 % 14.0-32.0 L MONOCYTE % (test code = MO%) 5.2 % 4.8-9.0 N EOSINOPHIL % (test code = EO%) 0.1 % 0.3-3.7 L BASOPHIL % (test code = BA%) 0.2 % 0.0-2.0 N NUCLEATED RBC % (test code = NRBC%) 0.9 % 0-0 H NEUTROPHIL # (test code = NT#) 7.19 x10 3/uL 2.0-7.6 N IMMATURE GRANULOCYTE # (test code = IG#) 0.10 x10 3/uL 0.00-0.03 H LYMPHOCYTE # (test code = LY#) 0.34 x10 3/uL 1.0-3.8 L MONOCYTE # (test code = MO#) 0.42 x10 3/uL 0.1-0.8 N EOSINOPHIL # (test code = EO#) 0.01 x10 3/uL 0.0-0.2 N BASOPHIL # (test code = BA#) 0.02 x10 3/uL 0.0-0.2 N NUCLEATED RBC # (test code = NRBC#) 0.07 x10 3/uL 0.0-0.1 N MANUAL DIFF REQUIRED (test code = MDIFF) NO COMMENTS: Daily while in ICUPLT [id number] 06:14:00* Test Item Value Reference Range Interpretation Comments PLATELET ESTIMATE (test code = PLTEST) THOUSAND ADEQUATE COMMENTS: Daily while in [id number] 06:05:00* Test Item Value Reference Range Interpretation Comments GLUBED (test code = GLUBED) 126 MG/DL 70-110 H Performed by certified threader operator at [facility] [id number] 00:16:00* Test Item Value Reference Range Interpretation Comments GLUBED (test code = GLUBED) 128 MG/DL 70-110 H Performed by certified threader operator at [facility] [id number] 18:13:00* Test Item Value Reference Range Interpretation Comments GLUBED (test code = GLUBED) 120 MG/DL 70-110 H Performed by certified threader operator at [facility] CBC W/AUTO [id number] 12:53:00* Test Item Value Reference Range Interpretation Comments WHITE BLOOD CELL (test code = WBC) 10.03 x10 3/uL 4.5-11.0 N RED BLOOD CELL (test code = RBC) 3.53 x10 6/uL 3.54-5.02 L HEMOGLOBIN (test code = HGB) 10.5 g/dL 11.0-15.0 L HEMATOCRIT (test code = HCT) 31.7 % 33.0-45.0 L MEAN CELL VOLUME (test code = MCV) 89.8 fL 81.0-99.0 MEAN CELL HGB (test code = MCH) 29.7 pg 27.0-33.0 N MEAN CELL HGB CONCETRATION (test code = MCHC) 33.1 g/dL 33.0-37. 0 N RED CELL DISTRIBUTION WIDTH CV (test code = RDW) 16.4 % 11.5- 14.5 H RED CELL DISTRIBUTION WIDTH SD (test code = RDW-SD) 53.4 fL 37 .0-54.0 N PLATELET COUNT (test code = PLT) x10 3/uL 150-400 SEE PLT EST. MEAN PLATELET VOLUME (test code = MPV) 10.4 fL 7.0-9.0 H NEUTROPHIL % (test code = NT%) 89.2 % 56.0-77.0 H IMMATURE GRANULOCYTE % (test code = IG%) 1.7 % 0.0-2.0 N LYMPHOCYTE % (test code = LY%) 2.5 % 14.0-32.0 L MONOCYTE % (test code = MO%) 6.4 % 4.8-9.0 N EOSINOPHIL % (test code = EO%) 0.0 % 0.3-3.7 L BASOPHIL % (test code = BA%) 0.2 % 0.0-2.0 N NUCLEATED RBC % (test code = NRBC%) 1.7 % 0-0 H NEUTROPHIL # (test code = NT#) 8.95 x10 3/uL 2.0-7.6 H IMMATURE GRANULOCYTE # (test code = IG#) 0.17 x10 3/uL 0.00-0.03 H LYMPHOCYTE # (test code = LY#) 0.25 x10 3/uL 1.0-3.8 L MONOCYTE # (test code = MO#) 0.64 x10 3/uL 0.1-0.8 N EOSINOPHIL # (test code = EO#) 0.00 x10 3/uL 0.0-0.2 N BASOPHIL # (test code = BA#) 0.02 x10 3/uL 0.0-0.2 N NUCLEATED RBC # (test code = NRBC#) 0.17 x10 3/uL 0.0-0.1 H MANUAL DIFF REQUIRED (test code = MDIFF) NO SLIDE REVIEWED, CONSISTENT WITH AUTO DIFF. COMMENTS: Daily while in ICUPLT [id number] 12:53:00* Test Item Value Reference Range Interpretation Comments PLATELET ESTIMATE (test code = PLTEST) 44-55 THOUSAND ADEQUATE PLATELET MORPHOLOGY (test code = PLTMORPH) LARGE PLATELETS COMMENTS: Daily while in ICUCBC W/AUTO [id number] 12:52:00* Test Item Value Reference Range Interpretation Comments WHITE BLOOD CELL (test code = WBC) 10.03 x10 3/uL 4.5-11.0 N RED BLOOD CELL (test code = RBC) 3.53 x10 6/uL 3.54-5.02 L HEMOGLOBIN (test code = HGB) 10.5 g/dL 11.0-15.0 L HEMATOCRIT (test code = HCT) 31.7 % 33.0-45.0 L MEAN CELL VOLUME (test code = MCV) 89.8 fL 81.0-99.0 MEAN CELL HGB (test code = MCH) 29.7 pg 27.0-33.0 N MEAN CELL HGB CONCETRATION (test code = MCHC) 33.1 g/dL 33.0-37. 0 N RED CELL DISTRIBUTION WIDTH CV (test code = RDW) 16.4 % 11.5- 14.5 H RED CELL DISTRIBUTION WIDTH SD (test code = RDW-SD) 53.4 fL 37 .0-54.0 N PLATELET COUNT (test code = PLT) x10 3/uL 150-400 SEE PLT EST. MEAN PLATELET VOLUME (test code = MPV) 10.4 fL 7.0-9.0 H NEUTROPHIL % (test code = NT%) 89.2 % 56.0-77.0 H IMMATURE GRANULOCYTE % (test code = IG%) 1.7 % 0.0-2.0 N LYMPHOCYTE % (test code = LY%) 2.5 % 14.0-32.0 L MONOCYTE % (test code = MO%) 6.4 % 4.8-9.0 N EOSINOPHIL % (test code = EO%) 0.0 % 0.3-3.7 L BASOPHIL % (test code = BA%) 0.2 % 0.0-2.0 N NUCLEATED RBC % (test code = NRBC%) 1.7 % 0-0 H NEUTROPHIL # (test code = NT#) 8.95 x10 3/uL 2.0-7.6 H IMMATURE GRANULOCYTE # (test code = IG#) 0.17 x10 3/uL 0.00-0.03 H LYMPHOCYTE # (test code = LY#) 0.25 x10 3/uL 1.0-3.8 L MONOCYTE # (test code = MO#) 0.64 x10 3/uL 0.1-0.8 N EOSINOPHIL # (test code = EO#) 0.00 x10 3/uL 0.0-0.2 N BASOPHIL # (test code = BA#) 0.02 x10 3/uL 0.0-0.2 N NUCLEATED RBC # (test code = NRBC#) 0.17 x10 3/uL 0.0-0.1 H MANUAL DIFF REQUIRED (test code = MDIFF) NO SLIDE REVIEWED, CONSISTENT WITH AUTO DIFF. COMMENTS: Daily while in ICUPLT [id number] 12:52:00* Test Item Value Reference Range Interpretation Comments PLATELET ESTIMATE (test code = PLTEST) THOUSAND ADEQUATE COMMENTS: Daily while in ICUCBC W/AUTO [id number] 12:52:00* Test Item Value Reference Range Interpretation Comments WHITE BLOOD CELL (test code = WBC) 10.03 x10 3/uL 4.5-11.0 N RED BLOOD CELL (test code = RBC) 3.53 x10 6/uL 3.54-5.02 L HEMOGLOBIN (test code = HGB) 10.5 g/dL 11.0-15.0 L HEMATOCRIT (test code = HCT) 31.7 % 33.0-45.0 L MEAN CELL VOLUME (test code = MCV) 89.8 fL 81.0-99.0 MEAN CELL HGB (test code = MCH) 29.7 pg 27.0-33.0 N MEAN CELL HGB CONCETRATION (test code = MCHC) 33.1 g/dL 33.0-37. 0 N RED CELL DISTRIBUTION WIDTH CV (test code = RDW) 16.4 % 11.5- 14.5 H RED CELL DISTRIBUTION WIDTH SD (test code = RDW-SD) 53.4 fL 37 .0-54.0 N PLATELET COUNT (test code = PLT) x10 3/uL 150-400 SEE PLT EST. MEAN PLATELET VOLUME (test code = MPV) 10.4 fL 7.0-9.0 H NEUTROPHIL % (test code = NT%) 89.2 % 56.0-77.0 H IMMATURE GRANULOCYTE % (test code = IG%) 1.7 % 0.0-2.0 N LYMPHOCYTE % (test code = LY%) 2.5 % 14.0-32.0 L MONOCYTE % (test code = MO%) 6.4 % 4.8-9.0 N EOSINOPHIL % (test code = EO%) 0.0 % 0.3-3.7 L BASOPHIL % (test code = BA%) 0.2 % 0.0-2.0 N NUCLEATED RBC % (test code = NRBC%) 1.7 % 0-0 H NEUTROPHIL # (test code = NT#) 8.95 x10 3/uL 2.0-7.6 H IMMATURE GRANULOCYTE # (test code = IG#) 0.17 x10 3/uL 0.00-0.03 H LYMPHOCYTE # (test code = LY#) 0.25 x10 3/uL 1.0-3.8 L MONOCYTE # (test code = MO#) 0.64 x10 3/uL 0.1-0.8 N EOSINOPHIL # (test code = EO#) 0.00 x10 3/uL 0.0-0.2 N BASOPHIL # (test code = BA#) 0.02 x10 3/uL 0.0-0.2 N NUCLEATED RBC # (test code = NRBC#) 0.17 x10 3/uL 0.0-0.1 H MANUAL DIFF REQUIRED (test code = MDIFF) NO SLIDE REVIEWED, CONSISTENT WITH AUTO DIFF. COMMENTS: Daily while in ICUPLT [id number] 12:52:00* Test Item Value Reference Range Interpretation Comments PLATELET ESTIMATE (test code = PLTEST) THOUSAND ADEQUATE COMMENTS: Daily while in ICUCBC W/AUTO [id number] 12:50:00* Test Item Value Reference Range Interpretation Comments WHITE BLOOD CELL (test code = WBC) 10.03 x10 3/uL 4.5-11.0 N RED BLOOD CELL (test code = RBC) 3.53 x10 6/uL 3.54-5.02 L HEMOGLOBIN (test code = HGB) 10.5 g/dL 11.0-15.0 L HEMATOCRIT (test code = HCT) 31.7 % 33.0-45.0 L MEAN CELL VOLUME (test code = MCV) 89.8 fL 81.0-99.0 MEAN CELL HGB (test code = MCH) 29.7 pg 27.0-33.0 N MEAN CELL HGB CONCETRATION (test code = MCHC) 33.1 g/dL 33.0-37. 0 N RED CELL DISTRIBUTION WIDTH CV (test code = RDW) 16.4 % 11.5- 14.5 H RED CELL DISTRIBUTION WIDTH SD (test code = RDW-SD) 53.4 fL 37 .0-54.0 N PLATELET COUNT (test code = PLT) x10 3/uL 150-400 SEE PLT EST. MEAN PLATELET VOLUME (test code = MPV) 10.4 fL 7.0-9.0 H NEUTROPHIL % (test code = NT%) 89.2 % 56.0-77.0 H IMMATURE GRANULOCYTE % (test code = IG%) 1.7 % 0.0-2.0 N LYMPHOCYTE % (test code = LY%) 2.5 % 14.0-32.0 L MONOCYTE % (test code = MO%) 6.4 % 4.8-9.0 N EOSINOPHIL % (test code = EO%) 0.0 % 0.3-3.7 L BASOPHIL % (test code = BA%) 0.2 % 0.0-2.0 N NUCLEATED RBC % (test code = NRBC%) 1.7 % 0-0 H NEUTROPHIL # (test code = NT#) 8.95 x10 3/uL 2.0-7.6 H IMMATURE GRANULOCYTE # (test code = IG#) 0.17 x10 3/uL 0.00-0.03 H LYMPHOCYTE # (test code = LY#) 0.25 x10 3/uL 1.0-3.8 L MONOCYTE # (test code = MO#) 0.64 x10 3/uL 0.1-0.8 N EOSINOPHIL # (test code = EO#) 0.00 x10 3/uL 0.0-0.2 N BASOPHIL # (test code = BA#) 0.02 x10 3/uL 0.0-0.2 N NUCLEATED RBC # (test code = NRBC#) 0.17 x10 3/uL 0.0-0.1 H MANUAL DIFF REQUIRED (test code = MDIFF) NO SLIDE REVIEWED, CONSISTENT WITH AUTO DIFF. COMMENTS: Daily while in [id number] 11:41:00* Test Item Value Reference Range Interpretation Comments GLUBED (test code = GLUBED) 151 MG/DL 70-110 H Performed by certified threader operator at [facility] - XR CHEST 1 [id number] 07:28:00 FAX: Jordy Martinez DO [phone] [place]: St: ADM FAX: Alexsandra Barron MD [phone] FAX: Dwayne Millan [phone] Name: HEIDI STEINER [facility] : 1960 Age/S: 58/F [address] Unit #: [id number] Loc: G.M324 [place] [address] Phys: Alexsandra Barron MD Acct: [id number] Dis Date: Status: ADM IN ONE #: [phone] Exam Date: 12/17/2018 05 FAX #: [phone] Reason: ETT EXAMS: CPT CODE: [id number] XR CHEST 1 V 61035 - XR CHEST 1 V 12/17/2018 5:00 [...] in bilateral perihilar densities. SL: CY-H at 0728 Reported and s igned by: Jordy Sue M.D. CC: Jordy Gambino DO; Alexsandra Barron MD; Enoch Person MD Technologist: Elvis Jang; Maria C Lima, RT(R) Trnscrd Date/Time/By: 12/17/2018 (0728) : By: [email or web address] Orig Print D/T: S: 12/17/2018 (0717) PAGE 1 Signed Report CBC W/AUTO [id number] 06:50:00* Test Item Value Reference Range Interpretation Comments WHITE BLOOD CELL (test code = WBC) 10.03 x10 3/uL 4.5-11.0 N RED BLOOD CELL (test code = RBC) 3.53 x10 6/uL 3.54-5.02 L HEMOGLOBIN (test code = HGB) 10.5 g/dL 11.0-15.0 L HEMATOCRIT (test code = HCT) 31.7 % 33.0-45.0 L MEAN CELL VOLUME (test code = MCV) 89.8 fL 81.0-99.0 MEAN CELL HGB (test code = MCH) 29.7 pg 27.0-33.0 N MEAN CELL HGB CONCETRATION (test code = MCHC) 33.1 g/dL 33.0-37. 0 N RED CELL DISTRIBUTION WIDTH CV (test code = RDW) 16.4 % 11.5- 14.5 H RED CELL DISTRIBUTION WIDTH SD (test code = RDW-SD) 53.4 fL 37 .0-54.0 N PLATELET COUNT (test code = PLT) x10 3/uL 150-400 SEE PLT EST. MEAN PLATELET VOLUME (test code = MPV) 10.4 fL 7.0-9.0 H LYMPHOCYTE % (test code = LY%) % 14.0-32.0 MANUAL DIFF REQUIRED (test code = MDIFF) COMMENTS: Daily while in ICUBASIC METABOLIC [id number] 06:50:00* Test Item Value Reference Range Interpretation Comments SODIUM (test code = NA) 143 mEq/L 134-147 N POTASSIUM (test code = K) 3.2 mEq/L 3.4-5.0 L CHLORIDE (test code = CL) 110 mEq/L 100-108 H CARBON DIOXIDE (test code = CO2) 28 mEq/L 21-33 N ANION GAP (test code = GAP) 8 0-20 N GLUCOSE (test code = GLU) 152 mg/dL 70-110 H BLOOD UREA NITROGEN (test code = BUN) 27 mg/dL 7-18 H GLOMERULAR FILTRATION RATE (test code = GFR) 50.7 80-90 L Units of measure = ml/min/1.73 m2 CREATININE (test code = CREAT) 1.1 mg/dL 0.6-1.3 N CALCIUM (test code = CA) 7.8 mg/dL 8.0-10.5 L COMMENTS: Daily while in ICUHEPATIC FUNCTION [id number] 06:50:00* Test Item Value Reference Range Interpretation Comments TOTAL PROTEIN (test code = PROT) 4.8 g/dL 6.4-8.2 L ALBUMIN (test code = ALB) 1.90 g/dL 3.4-5.0 L BILIRUBIN TOTAL (test code = BILT) 2.30 mg/dL 0.0-1.0 H BILIRUBIN DIRECT (test code = BILD) 1.70 MG/DL 0.0-0.30 H BILIRUBIN INDIRECT (test code = BILIND) 0.60 MG/DL SGOT/AST (test code = AST) 83 IUnit/L 15-37 H SGPT/ALT (test code = ALT) 51 IUnit/L 15-65 N ALKALINE PHOSPHATASE TOTAL (test code = ALKP) 107 IUnit/L 20-125 N COMMENTS: Daily while in [id number] 06:50:00* Test Item Value Reference Range Interpretation Comments PHOSPHOROUS (test code = PHOS) 2.2 mg/dL 2.5-4.9 L COMMENTS: Daily while in [id number] 06:50:00* Test Item Value Reference Range Interpretation Comments MAGNESIUM (test code = MAG) 2.00 mg/dL 1.8-2.4 N COMMENTS: Daily while in ICUBASIC METABOLIC [id number] 06:45:00* Test Item Value Reference Range Interpretation Comments SODIUM (test code = NA) 143 mEq/L 134-147 N POTASSIUM (test code = K) 3.2 mEq/L 3.4-5.0 L CHLORIDE (test code = CL) 110 mEq/L 100-108 H CARBON DIOXIDE (test code = CO2) 28 mEq/L 21-33 N ANION GAP (test code = GAP) 8 0-20 N GLUCOSE (test code = GLU) 152 mg/dL 70-110 H BLOOD UREA NITROGEN (test code = BUN) 27 mg/dL 7-18 H GLOMERULAR FILTRATION RATE (test code = GFR) 50.7 80-90 L Units of measure = ml/min/1.73 m2 CREATININE (test code = CREAT) 1.1 mg/dL 0.6-1.3 N CALCIUM (test code = CA) 7.8 mg/dL 8.0-10.5 L COMMENTS: Daily while in ICUHEPATIC FUNCTION [id number] 06:45:00* Test Item Value Reference Range Interpretation Comments TOTAL PROTEIN (test code = PROT) g/dL 6.4-8.2 ALBUMIN (test code = ALB) 1.90 g/dL 3.4-5.0 L BILIRUBIN TOTAL (test code = BILT) mg/dL 0.0-1.0 BILIRUBIN DIRECT (test code = BILD) 1.70 MG/DL 0.0-0.30 H SGOT/AST (test code = AST) 83 IUnit/L 15-37 H SGPT/ALT (test code = ALT) 51 IUnit/L 15-65 N ALKALINE PHOSPHATASE TOTAL (test code = ALKP) IUnit/L 20-125 COMMENTS: Daily while in [id number] 06:45:00* Test Item Value Reference Range Interpretation Comments PHOSPHOROUS (test code = PHOS) 2.2 mg/dL 2.5-4.9 L COMMENTS: Daily while in [id number] 06:45:00* Test Item Value Reference Range Interpretation Comments MAGNESIUM (test code = MAG) 2.00 mg/dL 1.8-2.4 N COMMENTS: Daily while in [id number] 05:53:00* Test Item Value Reference Range Interpretation Comments GLUBED (test code = GLUBED) 149 MG/DL 70-110 H Performed by certified threader operator at [facility] ARTERIAL BLOOD [id number] 03:50:00* Test Item Value Reference Range Interpretation Comments ARTERIAL BLOOD GAS PH (test code = PHA) 7.424 7.35-7.45 N ARTERIAL BLOOD GAS PCO2 (test code = PCO2A) 37.3 mmHg 35-45 N ARTERIAL BLOOD GAS PO2 (test code = PO2A) 177 mmHg 80-100 H BICARBONATE TOTAL HCO3 (test code = HCO3) 24.4 mmol/L 22.0-26.0 N BASE EXCESS (test code = DIYA) 0.0 mmol/L -4-4 N ABG O2 SATURATION (test code = SATA) 100 % 90-100 N FIO2 (test code = FIO2A) 40 % ABG DELIVERY (test code = GLADYS) Vent ABG VENT MODE (test code = MODEA) AC v con ABG VENT RESP RATE (test code = RRA) 12 /MIN ABG TIDAL VOLUME (test code = TVA) 450 ml ABG PEEP (test code = PEEPA) 5 cmH2O Performed by certified threader operator at [facility] ABG TEMPERATURE (test code = TEMPA) 98.6 F ABG SITE (test code = SITEA) Art line PREDICTED AA GRADIENT (test code = AP) 62 PREDICTED PO2 (test code = OP) 178 a/A RATIO (test code = RATIO) 0.74 TCO2 ARTERIAL (test code = TCO2A) 26 A-A GRADIENT (test code = AAGRADE) 63 [id number] 23:07:00* Test Item Value Reference Range Interpretation Comments GLUBED (test code = GLUBED) 142 MG/DL 70-110 H Performed by certified threader operator at [facility] [id number] 23:07:00* Test Item Value Reference Range Interpretation Comments GLUBED (test code = GLUBED) 150 MG/DL 70-110 H Performed by certified threader operator at [facility] CBC W/AUTO [id number] 20:38:00* Test Item Value Reference Range Interpretation Comments WHITE BLOOD CELL (test code = WBC) 8.89 x10 3/uL 4.5-11.0 N RED BLOOD CELL (test code = RBC) 3.27 x10 6/uL 3.54-5.02 L HEMOGLOBIN (test code = HGB) 9.7 g/dL 11.0-15.0 L HEMATOCRIT (test code = HCT) 30.9 % 33.0-45.0 L MEAN CELL VOLUME (test code = MCV) 94.5 fL 81.0-99.0 MEAN CELL HGB (test code = MCH) 29.7 pg 27.0-33.0 N MEAN CELL HGB CONCETRATION (test code = MCHC) 31.4 g/dL 33.0-37. 0 L RED CELL DISTRIBUTION WIDTH CV (test code = RDW) 16.9 % 11.5- 14.5 H RED CELL DISTRIBUTION WIDTH SD (test code = RDW-SD) 58.6 fL 37 .0-54.0 H PLATELET COUNT (test code = PLT) 55 x10 3/uL 150-400 L MEAN PLATELET VOLUME (test code = MPV) 11.1 fL 7.0-9.0 H NEUTROPHIL % (test code = NT%) 89.8 % 56.0-77.0 H IMMATURE GRANULOCYTE % (test code = IG%) 2.0 % 0.0-2.0 N LYMPHOCYTE % (test code = LY%) 2.6 % 14.0-32.0 L MONOCYTE % (test code = MO%) 5.4 % 4.8-9.0 N EOSINOPHIL % (test code = EO%) 0.0 % 0.3-3.7 L BASOPHIL % (test code = BA%) 0.2 % 0.0-2.0 N NUCLEATED RBC % (test code = NRBC%) 2.2 % 0-0 H NEUTROPHIL # (test code = NT#) 7.98 x10 3/uL 2.0-7.6 H IMMATURE GRANULOCYTE # (test code = IG#) 0.18 x10 3/uL 0.00-0.03 H LYMPHOCYTE # (test code = LY#) 0.23 x10 3/uL 1.0-3.8 L MONOCYTE # (test code = MO#) 0.48 x10 3/uL 0.1-0.8 N EOSINOPHIL # (test code = EO#) 0.00 x10 3/uL 0.0-0.2 N BASOPHIL # (test code = BA#) 0.02 x10 3/uL 0.0-0.2 N NUCLEATED RBC # (test code = NRBC#) 0.20 x10 3/uL 0.0-0.1 H MANUAL DIFF REQUIRED (test code = MDIFF) NO SLIDE REVIEWED, CONSISTENT WITH AUTO DIFF. PLT [id number] 20:38:00* Test Item Value Reference Range Interpretation Comments PLATELET ESTIMATE (test code = PLTEST) 92-115 THOUSAND ADEQUATE PLATELET MORPHOLOGY (test code = PLTMORPH) LARGE PLATELETS CBC W/AUTO [id number] 20:37:00* Test Item Value Reference Range Interpretation Comments WHITE BLOOD CELL (test code = WBC) 8.89 x10 3/uL 4.5-11.0 N RED BLOOD CELL (test code = RBC) 3.27 x10 6/uL 3.54-5.02 L HEMOGLOBIN (test code = HGB) 9.7 g/dL 11.0-15.0 L HEMATOCRIT (test code = HCT) 30.9 % 33.0-45.0 L MEAN CELL VOLUME (test code = MCV) 94.5 fL 81.0-99.0 MEAN CELL HGB (test code = MCH) 29.7 pg 27.0-33.0 N MEAN CELL HGB CONCETRATION (test code = MCHC) 31.4 g/dL 33.0-37. 0 L RED CELL DISTRIBUTION WIDTH CV (test code = RDW) 16.9 % 11.5- 14.5 H RED CELL DISTRIBUTION WIDTH SD (test code = RDW-SD) 58.6 fL 37 .0-54.0 H PLATELET COUNT (test code = PLT) 55 x10 3/uL 150-400 L MEAN PLATELET VOLUME (test code = MPV) 11.1 fL 7.0-9.0 H NEUTROPHIL % (test code = NT%) 89.8 % 56.0-77.0 H IMMATURE GRANULOCYTE % (test code = IG%) 2.0 % 0.0-2.0 N LYMPHOCYTE % (test code = LY%) 2.6 % 14.0-32.0 L MONOCYTE % (test code = MO%) 5.4 % 4.8-9.0 N EOSINOPHIL % (test code = EO%) 0.0 % 0.3-3.7 L BASOPHIL % (test code = BA%) 0.2 % 0.0-2.0 N NUCLEATED RBC % (test code = NRBC%) 2.2 % 0-0 H NEUTROPHIL # (test code = NT#) 7.98 x10 3/uL 2.0-7.6 H IMMATURE GRANULOCYTE # (test code = IG#) 0.18 x10 3/uL 0.00-0.03 H LYMPHOCYTE # (test code = LY#) 0.23 x10 3/uL 1.0-3.8 L MONOCYTE # (test code = MO#) 0.48 x10 3/uL 0.1-0.8 N EOSINOPHIL # (test code = EO#) 0.00 x10 3/uL 0.0-0.2 N BASOPHIL # (test code = BA#) 0.02 x10 3/uL 0.0-0.2 N NUCLEATED RBC # (test code = NRBC#) 0.20 x10 3/uL 0.0-0.1 H MANUAL DIFF REQUIRED (test code = MDIFF) NO SLIDE REVIEWED, CONSISTENT WITH AUTO DIFF. PLT [id number] 20:37:00* Test Item Value Reference Range Interpretation Comments PLATELET ESTIMATE (test code = PLTEST) THOUSAND ADEQUATE CBC W/AUTO [id number] 20:37:00* Test Item Value Reference Range Interpretation Comments WHITE BLOOD CELL (test code = WBC) 8.89 x10 3/uL 4.5-11.0 N RED BLOOD CELL (test code = RBC) 3.27 x10 6/uL 3.54-5.02 L HEMOGLOBIN (test code = HGB) 9.7 g/dL 11.0-15.0 L HEMATOCRIT (test code = HCT) 30.9 % 33.0-45.0 L MEAN CELL VOLUME (test code = MCV) 94.5 fL 81.0-99.0 MEAN CELL HGB (test code = MCH) 29.7 pg 27.0-33.0 N MEAN CELL HGB CONCETRATION (test code = MCHC) 31.4 g/dL 33.0-37. 0 L RED CELL DISTRIBUTION WIDTH CV (test code = RDW) 16.9 % 11.5- 14.5 H RED CELL DISTRIBUTION WIDTH SD (test code = RDW-SD) 58.6 fL 37 .0-54.0 H PLATELET COUNT (test code = PLT) 55 x10 3/uL 150-400 L MEAN PLATELET VOLUME (test code = MPV) 11.1 fL 7.0-9.0 H NEUTROPHIL % (test code = NT%) 89.8 % 56.0-77.0 H IMMATURE GRANULOCYTE % (test code = IG%) 2.0 % 0.0-2.0 N LYMPHOCYTE % (test code = LY%) 2.6 % 14.0-32.0 L MONOCYTE % (test code = MO%) 5.4 % 4.8-9.0 N EOSINOPHIL % (test code = EO%) 0.0 % 0.3-3.7 L BASOPHIL % (test code = BA%) 0.2 % 0.0-2.0 N NUCLEATED RBC % (test code = NRBC%) 2.2 % 0-0 H NEUTROPHIL # (test code = NT#) 7.98 x10 3/uL 2.0-7.6 H IMMATURE GRANULOCYTE # (test code = IG#) 0.18 x10 3/uL 0.00-0.03 H LYMPHOCYTE # (test code = LY#) 0.23 x10 3/uL 1.0-3.8 L MONOCYTE # (test code = MO#) 0.48 x10 3/uL 0.1-0.8 N EOSINOPHIL # (test code = EO#) 0.00 x10 3/uL 0.0-0.2 N BASOPHIL # (test code = BA#) 0.02 x10 3/uL 0.0-0.2 N NUCLEATED RBC # (test code = NRBC#) 0.20 x10 3/uL 0.0-0.1 H MANUAL DIFF REQUIRED (test code = MDIFF) NO SLIDE REVIEWED, CONSISTENT WITH AUTO DIFF. PLT [id number] 20:37:00* Test Item Value Reference Range Interpretation Comments PLATELET ESTIMATE (test code = PLTEST) THOUSAND ADEQUATE CBC W/AUTO [id number] 20:04:00* Test Item Value Reference Range Interpretation Comments WHITE BLOOD CELL (test code = WBC) 8.89 x10 3/uL 4.5-11.0 N RED BLOOD CELL (test code = RBC) 3.27 x10 6/uL 3.54-5.02 L HEMOGLOBIN (test code = HGB) 9.7 g/dL 11.0-15.0 L HEMATOCRIT (test code = HCT) 30.9 % 33.0-45.0 L MEAN CELL VOLUME (test code = MCV) 94.5 fL 81.0-99.0 MEAN CELL HGB (test code = MCH) 29.7 pg 27.0-33.0 N MEAN CELL HGB CONCETRATION (test code = MCHC) 31.4 g/dL 33.0-37. 0 L RED CELL DISTRIBUTION WIDTH CV (test code = RDW) 16.9 % 11.5- 14.5 H RED CELL DISTRIBUTION WIDTH SD (test code = RDW-SD) 58.6 fL 37 .0-54.0 H PLATELET COUNT (test code = PLT) 55 x10 3/uL 150-400 L MEAN PLATELET VOLUME (test code = MPV) 11.1 fL 7.0-9.0 H LYMPHOCYTE % (test code = LY%) % 14.0-32.0 MANUAL DIFF REQUIRED (test code = MDIFF) [id number] 13:14:00* Test Item Value Reference Range Interpretation Comments GLUBED (test code = GLUBED) 172 MG/DL 70-110 H Performed by certified threader operator at [facility] CBC W/AUTO [id number] 10:53:00* Test Item Value Reference Range Interpretation Comments WHITE BLOOD CELL (test code = WBC) 9.12 x10 3/uL 4.5-11.0 N RED BLOOD CELL (test code = RBC) 3.56 x10 6/uL 3.54-5.02 N HEMOGLOBIN (test code = HGB) 10.7 g/dL 11.0-15.0 L HEMATOCRIT (test code = HCT) 31.8 % 33.0-45.0 L MEAN CELL VOLUME (test code = MCV) 89.3 fL 81.0-99.0 N MEAN CELL HGB (test code = MCH) 30.1 pg 27.0-33.0 N MEAN CELL HGB CONCETRATION (test code = MCHC) 33.6 g/dL 33.0-37. 0 N RED CELL DISTRIBUTION WIDTH CV (test code = RDW) 16.0 % 11.5- 14.5 H RED CELL DISTRIBUTION WIDTH SD (test code = RDW-SD) 53.0 fL 37 .0-54.0 N PLATELET COUNT (test code = PLT) 82 x10 3/uL 150-400 L MEAN PLATELET VOLUME (test code = MPV) 10.1 fL 7.0-9.0 H NEUTROPHIL % (test code = NT%) 90.1 % 56.0-77.0 H IMMATURE GRANULOCYTE % (test code = IG%) 2.6 % 0.0-2.0 H LYMPHOCYTE % (test code = LY%) 1.9 % 14.0-32.0 L MONOCYTE % (test code = MO%) 5.2 % 4.8-9.0 N EOSINOPHIL % (test code = EO%) 0.0 % 0.3-3.7 L BASOPHIL % (test code = BA%) 0.2 % 0.0-2.0 N NUCLEATED RBC % (test code = NRBC%) 3.7 % 0-0 H NEUTROPHIL # (test code = NT#) 8.22 x10 3/uL 2.0-7.6 H IMMATURE GRANULOCYTE # (test code = IG#) 0.24 x10 3/uL 0.00-0.03 H LYMPHOCYTE # (test code = LY#) 0.17 x10 3/uL 1.0-3.8 L MONOCYTE # (test code = MO#) 0.47 x10 3/uL 0.1-0.8 N EOSINOPHIL # (test code = EO#) 0.00 x10 3/uL 0.0-0.2 N BASOPHIL # (test code = BA#) 0.02 x10 3/uL 0.0-0.2 N NUCLEATED RBC # (test code = NRBC#) 0.34 x10 3/uL 0.0-0.1 H MANUAL DIFF REQUIRED (test code = MDIFF) NO SLIDE REVIEWED, CONSISTENT WITH AUTO DIFF. COMMENTS: Daily while in ICUPLT [id number] 10:53:00* Test Item Value Reference Range Interpretation Comments PLATELET ESTIMATE (test code = PLTEST) THOUSAND ADEQUATE COMMENTS: Daily while in ICUCBC W/AUTO [id number] 10:53:00* Test Item Value Reference Range Interpretation Comments WHITE BLOOD CELL (test code = WBC) 9.12 x10 3/uL 4.5-11.0 N RED BLOOD CELL (test code = RBC) 3.56 x10 6/uL 3.54-5.02 N HEMOGLOBIN (test code = HGB) 10.7 g/dL 11.0-15.0 L HEMATOCRIT (test code = HCT) 31.8 % 33.0-45.0 L MEAN CELL VOLUME (test code = MCV) 89.3 fL 81.0-99.0 N MEAN CELL HGB (test code = MCH) 30.1 pg 27.0-33.0 N MEAN CELL HGB CONCETRATION (test code = MCHC) 33.6 g/dL 33.0-37. 0 N RED CELL DISTRIBUTION WIDTH CV (test code = RDW) 16.0 % 11.5- 14.5 H RED CELL DISTRIBUTION WIDTH SD (test code = RDW-SD) 53.0 fL 37 .0-54.0 N PLATELET COUNT (test code = PLT) 82 x10 3/uL 150-400 L MEAN PLATELET VOLUME (test code = MPV) 10.1 fL 7.0-9.0 H NEUTROPHIL % (test code = NT%) 90.1 % 56.0-77.0 H IMMATURE GRANULOCYTE % (test code = IG%) 2.6 % 0.0-2.0 H LYMPHOCYTE % (test code = LY%) 1.9 % 14.0-32.0 L MONOCYTE % (test code = MO%) 5.2 % 4.8-9.0 N EOSINOPHIL % (test code = EO%) 0.0 % 0.3-3.7 L BASOPHIL % (test code = BA%) 0.2 % 0.0-2.0 N NUCLEATED RBC % (test code = NRBC%) 3.7 % 0-0 H NEUTROPHIL # (test code = NT#) 8.22 x10 3/uL 2.0-7.6 H IMMATURE GRANULOCYTE # (test code = IG#) 0.24 x10 3/uL 0.00-0.03 H LYMPHOCYTE # (test code = LY#) 0.17 x10 3/uL 1.0-3.8 L MONOCYTE # (test code = MO#) 0.47 x10 3/uL 0.1-0.8 N EOSINOPHIL # (test code = EO#) 0.00 x10 3/uL 0.0-0.2 N BASOPHIL # (test code = BA#) 0.02 x10 3/uL 0.0-0.2 N NUCLEATED RBC # (test code = NRBC#) 0.34 x10 3/uL 0.0-0.1 H MANUAL DIFF REQUIRED (test code = MDIFF) NO SLIDE REVIEWED, CONSISTENT WITH AUTO DIFF. COMMENTS: Daily while in ICUPLT [id number] 10:53:00* Test Item Value Reference Range Interpretation Comments PLATELET ESTIMATE (test code = PLTEST) 108-135 THOUSAND ADEQUATE PLATELET MORPHOLOGY (test code = PLTMORPH) GIANT PLATELETS COMMENTS: Daily while in ICUCBC W/AUTO [id number] 10:53:00* Test Item Value Reference Range Interpretation Comments WHITE BLOOD CELL (test code = WBC) 9.12 x10 3/uL 4.5-11.0 N RED BLOOD CELL (test code = RBC) 3.56 x10 6/uL 3.54-5.02 N HEMOGLOBIN (test code = HGB) 10.7 g/dL 11.0-15.0 L HEMATOCRIT (test code = HCT) 31.8 % 33.0-45.0 L MEAN CELL VOLUME (test code = MCV) 89.3 fL 81.0-99.0 N MEAN CELL HGB (test code = MCH) 30.1 pg 27.0-33.0 N MEAN CELL HGB CONCETRATION (test code = MCHC) 33.6 g/dL 33.0-37. 0 N RED CELL DISTRIBUTION WIDTH CV (test code = RDW) 16.0 % 11.5- 14.5 H RED CELL DISTRIBUTION WIDTH SD (test code = RDW-SD) 53.0 fL 37 .0-54.0 N PLATELET COUNT (test code = PLT) 82 x10 3/uL 150-400 L MEAN PLATELET VOLUME (test code = MPV) 10.1 fL 7.0-9.0 H NEUTROPHIL % (test code = NT%) 90.1 % 56.0-77.0 H IMMATURE GRANULOCYTE % (test code = IG%) 2.6 % 0.0-2.0 H LYMPHOCYTE % (test code = LY%) 1.9 % 14.0-32.0 L MONOCYTE % (test code = MO%) 5.2 % 4.8-9.0 N EOSINOPHIL % (test code = EO%) 0.0 % 0.3-3.7 L BASOPHIL % (test code = BA%) 0.2 % 0.0-2.0 N NUCLEATED RBC % (test code = NRBC%) 3.7 % 0-0 H NEUTROPHIL # (test code = NT#) 8.22 x10 3/uL 2.0-7.6 H IMMATURE GRANULOCYTE # (test code = IG#) 0.24 x10 3/uL 0.00-0.03 H LYMPHOCYTE # (test code = LY#) 0.17 x10 3/uL 1.0-3.8 L MONOCYTE # (test code = MO#) 0.47 x10 3/uL 0.1-0.8 N EOSINOPHIL # (test code = EO#) 0.00 x10 3/uL 0.0-0.2 N BASOPHIL # (test code = BA#) 0.02 x10 3/uL 0.0-0.2 N NUCLEATED RBC # (test code = NRBC#) 0.34 x10 3/uL 0.0-0.1 H MANUAL DIFF REQUIRED (test code = MDIFF) NO SLIDE REVIEWED, CONSISTENT WITH AUTO DIFF. COMMENTS: Daily while in ICUPLT [id number] 10:53:00* Test Item Value Reference Range Interpretation Comments PLATELET ESTIMATE (test code = PLTEST) THOUSAND ADEQUATE COMMENTS: Daily while in ICUCBC W/AUTO [id number] 10:51:00* Test Item Value Reference Range Interpretation Comments WHITE BLOOD CELL (test code = WBC) 9.12 x10 3/uL 4.5-11.0 N RED BLOOD CELL (test code = RBC) 3.56 x10 6/uL 3.54-5.02 N HEMOGLOBIN (test code = HGB) 10.7 g/dL 11.0-15.0 L HEMATOCRIT (test code = HCT) 31.8 % 33.0-45.0 L MEAN CELL VOLUME (test code = MCV) 89.3 fL 81.0-99.0 N MEAN CELL HGB (test code = MCH) 30.1 pg 27.0-33.0 N MEAN CELL HGB CONCETRATION (test code = MCHC) 33.6 g/dL 33.0-37. 0 N RED CELL DISTRIBUTION WIDTH CV (test code = RDW) 16.0 % 11.5- 14.5 H RED CELL DISTRIBUTION WIDTH SD (test code = RDW-SD) 53.0 fL 37 .0-54.0 N PLATELET COUNT (test code = PLT) 82 x10 3/uL 150-400 L MEAN PLATELET VOLUME (test code = MPV) 10.1 fL 7.0-9.0 H NEUTROPHIL % (test code = NT%) 90.1 % 56.0-77.0 H IMMATURE GRANULOCYTE % (test code = IG%) 2.6 % 0.0-2.0 H LYMPHOCYTE % (test code = LY%) 1.9 % 14.0-32.0 L MONOCYTE % (test code = MO%) 5.2 % 4.8-9.0 N EOSINOPHIL % (test code = EO%) 0.0 % 0.3-3.7 L BASOPHIL % (test code = BA%) 0.2 % 0.0-2.0 N NUCLEATED RBC % (test code = NRBC%) 3.7 % 0-0 H NEUTROPHIL # (test code = NT#) 8.22 x10 3/uL 2.0-7.6 H IMMATURE GRANULOCYTE # (test code = IG#) 0.24 x10 3/uL 0.00-0.03 H LYMPHOCYTE # (test code = LY#) 0.17 x10 3/uL 1.0-3.8 L MONOCYTE # (test code = MO#) 0.47 x10 3/uL 0.1-0.8 N EOSINOPHIL # (test code = EO#) 0.00 x10 3/uL 0.0-0.2 N BASOPHIL # (test code = BA#) 0.02 x10 3/uL 0.0-0.2 N NUCLEATED RBC # (test code = NRBC#) 0.34 x10 3/uL 0.0-0.1 H MANUAL DIFF REQUIRED (test code = MDIFF) NO SLIDE REVIEWED, CONSISTENT WITH AUTO DIFF. COMMENTS: Daily while in ICUPROTHROMBIN [id number] 08:00:00* Test Item Value Reference Range Interpretation Comments PROTHROMBIN TIME PATIENT (test code = PTP) 12.0 SECONDS 9.3-12.9 N INTERNATIONAL NORMAL RATIO (test code = INR) 1.1 0.8-1.2 N TARGET INR BY INDICATION Indication INR1. Prophylaxis [...] Acute Myocardial Infarction (to prevent recurrent infarct). [id number] 08:00:00* Test Item Value Reference Range Interpretation Comments FIBRINOGEN (test code = FIB) 285 MG/DL 160-450 N Excess administration of anticoagulants and/or FibrinDegradation Products may affect Fibrinogen value. - XR CHEST 1 [id number] 07:44:00 FAX: Salud Pavon MD [place]: St: ADM FAX: Jordy Martinez DO [phone] FAX: Dwayne Millan [phone] Name: HEIDI STEINER [facility] Jesus Zapata : 1960 Age/S: 58/F [address] [place] [address] Unit #: [id number] Loc: G[address] [address] Phys: Salud Pavon MD Acct: [id number] Dis Date: Status: ADM IN ONE #: [phone] Exam Date: 12/16/2018 0550 FAX #: [phone] Reason: intubated/vented EXAMS: CPT CODE: [id number] XR CHEST 1 V [id number] CHEST, SINGLE VIEW HISTORY: Rectal cancer, intubated Comparison made to 12/15/18. FINDINGS: Interval development of bilateral perihilar infiltrates and small bilateral pleural effusions. He art size is stable. Endotracheal tube, left subclavian Port-A-Cath, right IJ central venous catheter, nasogastric tube position is stable. IMPRESSION: 1. Interval development of pulm onary edema compared to 12/15/18. 2. Stable support line position. SL:01 at 0744 Reported and signed by: Yosi Gutierrez M.D. CC: Salud Pavon MD; Jordy Gambino DO; Joycelyn Person MD Technologist: Elvis Jang Trnscrd Date/Time/By: 0 12/16/2018 (0744) : By: Fernando Orig Print D/T: S: 12/16/2018 (0779) PAGE 1 Signed Report HEPATIC FUNCTION [id number] 07:20:00* Test Item Value Reference Range Interpretation Comments TOTAL PROTEIN (test code = PROT) 4.7 g/dL 6.4-8.2 L ALBUMIN (test code = ALB) 2.20 g/dL 3.4-5.0 L BILIRUBIN TOTAL (test code = BILT) 3.30 mg/dL 0.0-1.0 H BILIRUBIN DIRECT (test code = BILD) 2.50 MG/DL 0.0-0.30 H BILIRUBIN INDIRECT (test code = BILIND) 0.80 MG/DL SGOT/AST (test code = AST) 63 IUnit/L 15-37 H SGPT/ALT (test code = ALT) 46 IUnit/L 15-65 N ALKALINE PHOSPHATASE TOTAL (test code = ALKP) 79 IUnit/L 20-125 N [id number] 07:20:00* Test Item Value Reference Range Interpretation Comments TRIGLYCERIDES (test code = TRIG) 116 mg/dL 40-150 N BASIC METABOLIC [id number] 07:15:00* Test Item Value Reference Range Interpretation Comments SODIUM (test code = NA) 144 mEq/L 134-147 N POTASSIUM (test code = K) 3.4 mEq/L 3.4-5.0 N CHLORIDE (test code = CL) 110 mEq/L 100-108 H CARBON DIOXIDE (test code = CO2) 28 mEq/L 21-33 N ANION GAP (test code = GAP) 9 0-20 N GLUCOSE (test code = GLU) 143 mg/dL 70-110 H BLOOD UREA NITROGEN (test code = BUN) 25 mg/dL 7-18 H GLOMERULAR FILTRATION RATE (test code = GFR) 45.8 80-90 L Units of measure = ml/min/1.73 m2 CREATININE (test code = CREAT) 1.2 mg/dL 0.6-1.3 N CALCIUM (test code = CA) 7.5 mg/dL 8.0-10.5 L COMMENTS: Daily while in [id number] 07:15:00* Test Item Value Reference Range Interpretation Comments PHOSPHOROUS (test code = PHOS) 2.5 mg/dL 2.5-4.9 COMMENTS: Daily while in [id number] 07:15:00* Test Item Value Reference Range Interpretation Comments MAGNESIUM (test code = MAG) 1.90 mg/dL 1.8-2.4 COMMENTS: Daily while in ICUCBC W/AUTO [id number] 07:14:00* Test Item Value Reference Range Interpretation Comments WHITE BLOOD CELL (test code = WBC) 9.12 x10 3/uL 4.5-11.0 N RED BLOOD CELL (test code = RBC) 3.56 x10 6/uL 3.54-5.02 N HEMOGLOBIN (test code = HGB) 10.7 g/dL 11.0-15.0 L HEMATOCRIT (test code = HCT) 31.8 % 33.0-45.0 L MEAN CELL VOLUME (test code = MCV) 89.3 fL 81.0-99.0 N MEAN CELL HGB (test code = MCH) 30.1 pg 27.0-33.0 N MEAN CELL HGB CONCETRATION (test code = MCHC) 33.6 g/dL 33.0-37. 0 N RED CELL DISTRIBUTION WIDTH CV (test code = RDW) 16.0 % 11.5- 14.5 H RED CELL DISTRIBUTION WIDTH SD (test code = RDW-SD) 53.0 fL 37 .0-54.0 N PLATELET COUNT (test code = PLT) 82 x10 3/uL 150-400 L MEAN PLATELET VOLUME (test code = MPV) 10.1 fL 7.0-9.0 H LYMPHOCYTE % (test code = LY%) % 14.0-32.0 MANUAL DIFF REQUIRED (test code = MDIFF) COMMENTS: Daily while in [id number] 05:32:00* Test Item Value Reference Range Interpretation Comments GLUBED (test code = GLUBED) 162 MG/DL 70-110 H Performed by certified threader operator at [facility] ARTERIAL BLOOD [id number] 05:30:00* Test Item Value Reference Range Interpretation Comments ARTERIAL BLOOD GAS PH (test code = PHA) 7.434 7.35-7.45 N ARTERIAL BLOOD GAS PCO2 (test code = PCO2A) 32.1 mmHg 35-45 L ARTERIAL BLOOD GAS PO2 (test code = PO2A) 166 mmHg 80-100 H BICARBONATE TOTAL HCO3 (test code = HCO3) 21.5 mmol/L 22.0-26.0 L BASE EXCESS (test code = DIYA) -3.0 mmol/L -4-4 N ABG O2 SATURATION (test code = SATA) 100 % 90-100 N FIO2 (test code = FIO2A) 40 % ABG DELIVERY (test code = GLADYS) Vent ABG VENT MODE (test code = MODEA) AC v con ABG VENT RESP RATE (test code = RRA) 12 /MIN ABG TIDAL VOLUME (test code = TVA) 450 ml ABG PEEP (test code = PEEPA) 5 cmH2O Performed by certified threader operator at [facility] ABG TEMPERATURE (test code = TEMPA) 98.2 F ABG SITE (test code = SITEA) Art line PREDICTED AA GRADIENT (test code = AP) 64 PREDICTED PO2 (test code = OP) 183 a/A RATIO (test code = RATIO) 0.67 TCO2 ARTERIAL (test code = TCO2A) 23 A-A GRADIENT (test code = AAGRADE) 81 HGB [id number] 02:59:00* Test Item Value Reference Range Interpretation Comments HEMOGLOBIN (test code = HGB) 10.6 g/dL 11.0-15.0 L HEMATOCRIT (test code = HCT) 31.2 % 33.0-45.0 L [id number] 23:30:00* Test Item Value Reference Range Interpretation Comments GLUBED (test code = GLUBED) 108 MG/DL 70-110 N Performed by certified threader operator at [facility] HGB [id number] 23:16:00* Test Item Value Reference Range Interpretation Comments HEMOGLOBIN (test code = HGB) 10.5 g/dL 11.0-15.0 L HEMATOCRIT (test code = HCT) 31.5 % 33.0-45.0 L PLATELET [id number] 23:16:00* Test Item Value Reference Range Interpretation Comments PLATELET COUNT (test code = PLT) 104 x10 3/uL 150-400 L [id number] 23:04:00* Test Item Value Reference Range Interpretation Comments FIBRINOGEN (test code = FIB) 256 MG/DL 160-450 N Excess administration of anticoagulants and/or FibrinDegradation Products may affect Fibrinogen value. CBC W/AUTO [id number] 22:17:00* Test Item Value Reference Range Interpretation Comments WHITE BLOOD CELL (test code = WBC) 6.21 x10 3/uL 4.5-11.0 N RED BLOOD CELL (test code = RBC) 3.90 x10 6/uL 3.54-5.02 N HEMOGLOBIN (test code = HGB) 11.7 g/dL 11.0-15.0 N HEMATOCRIT (test code = HCT) 34.0 % 33.0-45.0 N MEAN CELL VOLUME (test code = MCV) 87.2 fL 81.0-99.0 N MEAN CELL HGB (test code = MCH) 30.0 pg 27.0-33.0 N MEAN CELL HGB CONCETRATION (test code = MCHC) 34.4 g/dL 33.0-37. 0 N RED CELL DISTRIBUTION WIDTH CV (test code = RDW) 15.2 % 11.5- 14.5 H RED CELL DISTRIBUTION WIDTH SD (test code = RDW-SD) 48.3 fL 37 .0-54.0 N PLATELET COUNT (test code = PLT) 57 x10 3/uL 150-400 L MEAN PLATELET VOLUME (test code = MPV) 10.5 fL 7.0-9.0 H MANUAL DIFF REQUIRED (test code = MDIFF) YES WBC [id number] 22:17:00* Test Item Value Reference Range Interpretation Comments SEGMENTED NEUTROPHILS (test code = SEG) 80.7 % 37-69 H BAND NEUTROPHIL (test code = BAND) 6.4 % 0.0-10.0 N LYMPHOCYTE (test code = LYMPH) 0.9 % 23-55 L REACTIVE LYMPH (test code = RELYMPH) 0.9 % MONOCYTE (test code = MON) 6.4 % 0-10 N METAMYELOCYTE (test code = META) 2.8 % 0.0-0.0 H MYELOCYTE (test code = MYELO) 1.9 % 0.0-0.0 H NUCLEATED RED BLOOD CELL (test code = NRBC) 14.7 % ANISOCYTOSIS (test code = ANISO) 2+ TOXIC GRANULATION (test code = TOX) 1+ PLATELET ESTIMATE (test code = PLTEST) 92-115 THOUSAND ADEQUATE Previously reported result: Decreased THOUSANDEdited by: CAMILA on 12/15/18:031421/12/04 2213: PLT EST previously reported as: Decreased THOUSAND PLATELET MORPHOLOGY (test code = PLTMORPH) LARGE PLATELETS SOME LARGE PLTS SEEN PLT AGGREGATES NOTED CBC W/AUTO [id number] 18:35:00* Test Item Value Reference Range Interpretation Comments WHITE BLOOD CELL (test code = WBC) 8.09 x10 3/uL 4.5-11.0 N RED BLOOD CELL (test code = RBC) 3.63 x10 6/uL 3.54-5.02 N HEMOGLOBIN (test code = HGB) 10.9 g/dL 11.0-15.0 L HEMATOCRIT (test code = HCT) 31.9 % 33.0-45.0 L MEAN CELL VOLUME (test code = MCV) 87.9 fL 81.0-99.0 N MEAN CELL HGB (test code = MCH) 30.0 pg 27.0-33.0 N MEAN CELL HGB CONCETRATION (test code = MCHC) 34.2 g/dL 33.0-37. 0 N RED CELL DISTRIBUTION WIDTH CV (test code = RDW) 15.6 % 11.5- 14.5 H RED CELL DISTRIBUTION WIDTH SD (test code = RDW-SD) 50.4 fL 37 .0-54.0 N PLATELET COUNT (test code = PLT) x10 3/uL 150-400 SEE PLT EST. MEAN PLATELET VOLUME (test code = MPV) 10.4 fL 7.0-9.0 H MANUAL DIFF REQUIRED (test code = MDIFF) YES WBC [id number] 18:35:00* Test Item Value Reference Range Interpretation Comments SEGMENTED NEUTROPHILS (test code = SEG) 91 % 37-69 H LYMPHOCYTE (test code = LYMPH) 6 % 23-55 L MONOCYTE (test code = MON) 3 % 0-10 N NUCLEATED RED BLOOD CELL (test code = NRBC) 8 % ANISOCYTOSIS (test code = ANISO) NORMAL TOXIC GRANULATION (test code = TOX) 1+ PLATELET ESTIMATE (test code = PLTEST) 32-40 THOUSAND ADEQUATE PLATELET MORPHOLOGY (test code = PLTMORPH) LARGE PLATELETS RARE GIANT PLATELETS COMPREHENSIVE METABOLIC [id number] 17:32:00* Test Item Value Reference Range Interpretation Comments SODIUM (test code = NA) 144 mEq/L 134-147 N POTASSIUM (test code = K) 3.7 mEq/L 3.4-5.0 N CHLORIDE (test code = CL) 110 mEq/L 100-108 H CARBON DIOXIDE (test code = CO2) 28 mEq/L 21-33 N ANION GAP (test code = GAP) 10 0-20 N GLUCOSE (test code = GLU) 93 mg/dL 70-110 N BLOOD UREA NITROGEN (test code = BUN) 22 mg/dL 7-18 H GLOMERULAR FILTRATION RATE (test code = GFR) 56.6 80-90 L Units of measure = ml/min/1.73 m2 CREATININE (test code = CREAT) 1.0 mg/dL 0.6-1.3 N TOTAL PROTEIN (test code = PROT) 4.6 g/dL 6.4-8.2 L ALBUMIN (test code = ALB) 2.10 g/dL 3.4-5.0 L CALCIUM (test code = CA) 7.4 mg/dL 8.0-10.5 L BILIRUBIN TOTAL (test code = BILT) 3.60 mg/dL 0.0-1.0 H SGOT/AST (test code = AST) 57 IUnit/L 15-37 H SGPT/ALT (test code = ALT) 40 IUnit/L 15-65 N ALKALINE PHOSPHATASE TOTAL (test code = ALKP) 66 IUnit/L 20-125 N COMPREHENSIVE METABOLIC [id number] 17:28:00* Test Item Value Reference Range Interpretation Comments SODIUM (test code = NA) 144 mEq/L 134-147 N POTASSIUM (test code = K) 3.7 mEq/L 3.4-5.0 N CHLORIDE (test code = CL) 110 mEq/L 100-108 H CARBON DIOXIDE (test code = CO2) 28 mEq/L 21-33 N ANION GAP (test code = GAP) 10 0-20 N GLUCOSE (test code = GLU) 93 mg/dL 70-110 N BLOOD UREA NITROGEN (test code = BUN) 22 mg/dL 7-18 H GLOMERULAR FILTRATION RATE (test code = GFR) 56.6 80-90 L Units of measure = ml/min/1.73 m2 CREATININE (test code = CREAT) 1.0 mg/dL 0.6-1.3 N TOTAL PROTEIN (test code = PROT) g/dL 6.4-8.2 ALBUMIN (test code = ALB) 2.10 g/dL 3.4-5.0 L CALCIUM (test code = CA) 7.4 mg/dL 8.0-10.5 L BILIRUBIN TOTAL (test code = BILT) mg/dL 0.0-1.0 SGOT/AST (test code = AST) 57 IUnit/L 15-37 H SGPT/ALT (test code = ALT) 40 IUnit/L 15-65 N ALKALINE PHOSPHATASE TOTAL (test code = ALKP) IUnit/L 20-125 [id number] 17:18:00* Test Item Value Reference Range Interpretation Comments FIBRINOGEN (test code = FIB) 233 MG/DL 160-450 N Excess administration of anticoagulants and/or FibrinDegradation Products may affect Fibrinogen value. CBC W/AUTO [id number] 17:09:00* Test Item Value Reference Range Interpretation Comments WHITE BLOOD CELL (test code = WBC) 8.09 x10 3/uL 4.5-11.0 N RED BLOOD CELL (test code = RBC) 3.63 x10 6/uL 3.54-5.02 N HEMOGLOBIN (test code = HGB) 10.9 g/dL 11.0-15.0 L HEMATOCRIT (test code = HCT) 31.9 % 33.0-45.0 L MEAN CELL VOLUME (test code = MCV) 87.9 fL 81.0-99.0 N MEAN CELL HGB (test code = MCH) 30.0 pg 27.0-33.0 N MEAN CELL HGB CONCETRATION (test code = MCHC) 34.2 g/dL 33.0-37. 0 N RED CELL DISTRIBUTION WIDTH CV (test code = RDW) 15.6 % 11.5- 14.5 H RED CELL DISTRIBUTION WIDTH SD (test code = RDW-SD) 50.4 fL 37 .0-54.0 N PLATELET COUNT (test code = PLT) x10 3/uL 150-400 SEE PLT EST. MEAN PLATELET VOLUME (test code = MPV) 10.4 fL 7.0-9.0 H MANUAL DIFF REQUIRED (test code = MDIFF) YES WBC [id number] 17:09:00* Test Item Value Reference Range Interpretation Comments ANISOCYTOSIS (test code = ANISO) PLATELET ESTIMATE (test code = PLTEST) THOUSAND ADEQUATE CBC W/AUTO [id number] 17:09:00* Test Item Value Reference Range Interpretation Comments WHITE BLOOD CELL (test code = WBC) 8.09 x10 3/uL 4.5-11.0 N RED BLOOD CELL (test code = RBC) 3.63 x10 6/uL 3.54-5.02 N HEMOGLOBIN (test code = HGB) 10.9 g/dL 11.0-15.0 L HEMATOCRIT (test code = HCT) 31.9 % 33.0-45.0 L MEAN CELL VOLUME (test code = MCV) 87.9 fL 81.0-99.0 N MEAN CELL HGB (test code = MCH) 30.0 pg 27.0-33.0 N MEAN CELL HGB CONCETRATION (test code = MCHC) 34.2 g/dL 33.0-37. 0 N RED CELL DISTRIBUTION WIDTH CV (test code = RDW) 15.6 % 11.5- 14.5 H RED CELL DISTRIBUTION WIDTH SD (test code = RDW-SD) 50.4 fL 37 .0-54.0 N PLATELET COUNT (test code = PLT) x10 3/uL 150-400 SEE PLT EST. MEAN PLATELET VOLUME (test code = MPV) 10.4 fL 7.0-9.0 H MANUAL DIFF REQUIRED (test code = MDIFF) YES WBC [id number] 17:09:00* Test Item Value Reference Range Interpretation Comments ANISOCYTOSIS (test code = ANISO) PLATELET ESTIMATE (test code = PLTEST) THOUSAND ADEQUATE HGB [id number] 14:59:00* Test Item Value Reference Range Interpretation Comments HEMOGLOBIN (test code = HGB) 10.8 g/dL 11.0-15.0 L HEMATOCRIT (test code = HCT) 31.5 % 33.0-45.0 L CBC W/AUTO [id number] 11:56:00* Test Item Value Reference Range Interpretation Comments WHITE BLOOD CELL (test code = WBC) 7.78 x10 3/uL 4.5-11.0 N RED BLOOD CELL (test code = RBC) 3.95 x10 6/uL 3.54-5.02 N HEMOGLOBIN (test code = HGB) 11.7 g/dL 11.0-15.0 N HEMATOCRIT (test code = HCT) 34.1 % 33.0-45.0 N MEAN CELL VOLUME (test code = MCV) 86.3 fL 81.0-99.0 N MEAN CELL HGB (test code = MCH) 29.6 pg 27.0-33.0 N MEAN CELL HGB CONCETRATION (test code = MCHC) 34.3 g/dL 33.0-37. 0 N RED CELL DISTRIBUTION WIDTH CV (test code = RDW) 15.5 % 11.5- 14.5 H RED CELL DISTRIBUTION WIDTH SD (test code = RDW-SD) 48.8 fL 37 .0-54.0 N PLATELET COUNT (test code = PLT) 46 x10 3/uL 150-400 L MEAN PLATELET VOLUME (test code = MPV) 10.5 fL 7.0-9.0 H MANUAL DIFF REQUIRED (test code = MDIFF) YES WBC [id number] 11:56:00* Test Item Value Reference Range Interpretation Comments SEGMENTED NEUTROPHILS (test code = SEG) 91.7 % 37-69 H LYMPHOCYTE (test code = LYMPH) 1.8 % 23-55 L MONOCYTE (test code = MON) 6.5 % 0-10 N NUCLEATED RED BLOOD CELL (test code = NRBC) 12.0 % ANISOCYTOSIS (test code = ANISO) NORMAL TOXIC GRANULATION (test code = TOX) 1+ PLATELET ESTIMATE (test code = PLTEST) Decreased THOUSAND ADEQUATE PLT.EST.(60-75) PLATELET MORPHOLOGY (test code = PLTMORPH) LARGE PLATELETS FEW CBC W/AUTO [id number] 11:43:00* Test Item Value Reference Range Interpretation Comments WHITE BLOOD CELL (test code = WBC) 7.78 x10 3/uL 4.5-11.0 N RED BLOOD CELL (test code = RBC) 3.95 x10 6/uL 3.54-5.02 N HEMOGLOBIN (test code = HGB) 11.7 g/dL 11.0-15.0 N HEMATOCRIT (test code = HCT) 34.1 % 33.0-45.0 N MEAN CELL VOLUME (test code = MCV) 86.3 fL 81.0-99.0 N MEAN CELL HGB (test code = MCH) 29.6 pg 27.0-33.0 N MEAN CELL HGB CONCETRATION (test code = MCHC) 34.3 g/dL 33.0-37. 0 N RED CELL DISTRIBUTION WIDTH CV (test code = RDW) 15.5 % 11.5- 14.5 H RED CELL DISTRIBUTION WIDTH SD (test code = RDW-SD) 48.8 fL 37 .0-54.0 N PLATELET COUNT (test code = PLT) 46 x10 3/uL 150-400 L MEAN PLATELET VOLUME (test code = MPV) 10.5 fL 7.0-9.0 H MANUAL DIFF REQUIRED (test code = MDIFF) YES WBC [id number] 11:43:00* Test Item Value Reference Range Interpretation Comments ANISOCYTOSIS (test code = ANISO) PLATELET ESTIMATE (test code = PLTEST) THOUSAND ADEQUATE CBC W/AUTO [id number] 11:43:00* Test Item Value Reference Range Interpretation Comments WHITE BLOOD CELL (test code = WBC) 7.78 x10 3/uL 4.5-11.0 N RED BLOOD CELL (test code = RBC) 3.95 x10 6/uL 3.54-5.02 N HEMOGLOBIN (test code = HGB) 11.7 g/dL 11.0-15.0 N HEMATOCRIT (test code = HCT) 34.1 % 33.0-45.0 N MEAN CELL VOLUME (test code = MCV) 86.3 fL 81.0-99.0 N MEAN CELL HGB (test code = MCH) 29.6 pg 27.0-33.0 N MEAN CELL HGB CONCETRATION (test code = MCHC) 34.3 g/dL 33.0-37. 0 N RED CELL DISTRIBUTION WIDTH CV (test code = RDW) 15.5 % 11.5- 14.5 H RED CELL DISTRIBUTION WIDTH SD (test code = RDW-SD) 48.8 fL 37 .0-54.0 N PLATELET COUNT (test code = PLT) 46 x10 3/uL 150-400 L MEAN PLATELET VOLUME (test code = MPV) 10.5 fL 7.0-9.0 H MANUAL DIFF REQUIRED (test code = MDIFF) YES WBC [id number] 11:43:00* Test Item Value Reference Range Interpretation Comments ANISOCYTOSIS (test code = ANISO) PLATELET ESTIMATE (test code = PLTEST) THOUSAND ADEQUATE CBC W/AUTO [id number] 08:48:00* Test Item Value Reference Range Interpretation Comments WHITE BLOOD CELL (test code = WBC) 6.21 x10 3/uL 4.5-11.0 N RED BLOOD CELL (test code = RBC) 3.90 x10 6/uL 3.54-5.02 N HEMOGLOBIN (test code = HGB) 11.7 g/dL 11.0-15.0 N HEMATOCRIT (test code = HCT) 34.0 % 33.0-45.0 N MEAN CELL VOLUME (test code = MCV) 87.2 fL 81.0-99.0 N MEAN CELL HGB (test code = MCH) 30.0 pg 27.0-33.0 N MEAN CELL HGB CONCETRATION (test code = MCHC) 34.4 g/dL 33.0-37. 0 N RED CELL DISTRIBUTION WIDTH CV (test code = RDW) 15.2 % 11.5- 14.5 H RED CELL DISTRIBUTION WIDTH SD (test code = RDW-SD) 48.3 fL 37 .0-54.0 N PLATELET COUNT (test code = PLT) 57 x10 3/uL 150-400 L MEAN PLATELET VOLUME (test code = MPV) 10.5 fL 7.0-9.0 H MANUAL DIFF REQUIRED (test code = MDIFF) YES WBC [id number] 08:48:00* Test Item Value Reference Range Interpretation Comments SEGMENTED NEUTROPHILS (test code = SEG) 80.7 % 37-69 H BAND NEUTROPHIL (test code = BAND) 6.4 % 0.0-10.0 N LYMPHOCYTE (test code = LYMPH) 0.9 % 23-55 L REACTIVE LYMPH (test code = RELYMPH) 0.9 % MONOCYTE (test code = MON) 6.4 % 0-10 N METAMYELOCYTE (test code = META) 2.8 % 0.0-0.0 H MYELOCYTE (test code = MYELO) 1.9 % 0.0-0.0 H NUCLEATED RED BLOOD CELL (test code = NRBC) 14.7 % ANISOCYTOSIS (test code = ANISO) 2+ TOXIC GRANULATION (test code = TOX) 1+ PLATELET ESTIMATE (test code = PLTEST) Decreased THOUSAND ADEQUATE CBC W/AUTO [id number] 08:40:00* Test Item Value Reference Range Interpretation Comments WHITE BLOOD CELL (test code = WBC) 6.21 x10 3/uL 4.5-11.0 N RED BLOOD CELL (test code = RBC) 3.90 x10 6/uL 3.54-5.02 N HEMOGLOBIN (test code = HGB) 11.7 g/dL 11.0-15.0 N HEMATOCRIT (test code = HCT) 34.0 % 33.0-45.0 N MEAN CELL VOLUME (test code = MCV) 87.2 fL 81.0-99.0 N MEAN CELL HGB (test code = MCH) 30.0 pg 27.0-33.0 N MEAN CELL HGB CONCETRATION (test code = MCHC) 34.4 g/dL 33.0-37. 0 N RED CELL DISTRIBUTION WIDTH CV (test code = RDW) 15.2 % 11.5- 14.5 H RED CELL DISTRIBUTION WIDTH SD (test code = RDW-SD) 48.3 fL 37 .0-54.0 N PLATELET COUNT (test code = PLT) 57 x10 3/uL 150-400 L MEAN PLATELET VOLUME (test code = MPV) 10.5 fL 7.0-9.0 H MANUAL DIFF REQUIRED (test code = MDIFF) YES WBC [id number] 08:40:00* Test Item Value Reference Range Interpretation Comments ANISOCYTOSIS (test code = ANISO) PLATELET ESTIMATE (test code = PLTEST) THOUSAND ADEQUATE CBC W/AUTO [id number] 08:40:00* Test Item Value Reference Range Interpretation Comments WHITE BLOOD CELL (test code = WBC) 6.21 x10 3/uL 4.5-11.0 N RED BLOOD CELL (test code = RBC) 3.90 x10 6/uL 3.54-5.02 N HEMOGLOBIN (test code = HGB) 11.7 g/dL 11.0-15.0 N HEMATOCRIT (test code = HCT) 34.0 % 33.0-45.0 N MEAN CELL VOLUME (test code = MCV) 87.2 fL 81.0-99.0 N MEAN CELL HGB (test code = MCH) 30.0 pg 27.0-33.0 N MEAN CELL HGB CONCETRATION (test code = MCHC) 34.4 g/dL 33.0-37. 0 N RED CELL DISTRIBUTION WIDTH CV (test code = RDW) 15.2 % 11.5- 14.5 H RED CELL DISTRIBUTION WIDTH SD (test code = RDW-SD) 48.3 fL 37 .0-54.0 N PLATELET COUNT (test code = PLT) 57 x10 3/uL 150-400 L MEAN PLATELET VOLUME (test code = MPV) 10.5 fL 7.0-9.0 H MANUAL DIFF REQUIRED (test code = MDIFF) YES WBC [id number] 08:40:00* Test Item Value Reference Range Interpretation Comments ANISOCYTOSIS (test code = ANISO) PLATELET ESTIMATE (test code = PLTEST) THOUSAND ADEQUATE CBC W/AUTO [id number] 08:08:00* Test Item Value Reference Range Interpretation Comments WHITE BLOOD CELL (test code = WBC) 6.29 x10 3/uL 4.5-11.0 RED BLOOD CELL (test code = RBC) 4.29 x10 6/uL 3.54-5.02 N HEMOGLOBIN (test code = HGB) 13.0 g/dL 11.0-15.0 N HEMATOCRIT (test code = HCT) 37.5 % 33.0-45.0 N MEAN CELL VOLUME (test code = MCV) 87.4 fL 81.0-99.0 N MEAN CELL HGB (test code = MCH) 30.3 pg 27.0-33.0 N MEAN CELL HGB CONCETRATION (test code = MCHC) 34.7 g/dL 33.0-37. 0 N RED CELL DISTRIBUTION WIDTH CV (test code = RDW) 15.0 % 11.5- 14.5 H RED CELL DISTRIBUTION WIDTH SD (test code = RDW-SD) 48.0 fL 37 .0-54.0 N PLATELET COUNT (test code = PLT) 68 x10 3/uL 150-400 L IMMATURE PLATELET FRACTION (test code = IPF) 3.2 % 0.9-11.2 N MEAN PLATELET VOLUME (test code = MPV) 10.0 fL 7.0-9.0 H MANUAL DIFF REQUIRED (test code = MDIFF) YES WBC [id number] 08:08:00* Test Item Value Reference Range Interpretation Comments SEGMENTED NEUTROPHILS (test code = SEG) 81 % 37-69 H BAND NEUTROPHIL (test code = BAND) 8.0 % 0.0-10.0 N LYMPHOCYTE (test code = LYMPH) 5 % 23-55 L MONOCYTE (test code = MON) 2 % 0-10 N METAMYELOCYTE (test code = META) 3.0 % 0.0-0.0 H MYELOCYTE (test code = MYELO) 1 % 0.0-0.0 H NUCLEATED RED BLOOD CELL (test code = NRBC) 24 % ANISOCYTOSIS (test code = ANISO) 2+ TOXIC GRANULATION (test code = TOX) 2+ DOHLE BODIES (test code = DB) 1+ PLATELET ESTIMATE (test code = PLTEST) 60-75 THOUSAND ADEQUATE PLATELET MORPHOLOGY (test code = PLTMORPH) LARGE PLATELETS CBC W/AUTO [id number] 08:07:00* Test Item Value Reference Range Interpretation Comments WHITE BLOOD CELL (test code = WBC) 6.29 x10 3/uL 4.5-11.0 RED BLOOD CELL (test code = RBC) 4.29 x10 6/uL 3.54-5.02 N HEMOGLOBIN (test code = HGB) 13.0 g/dL 11.0-15.0 N HEMATOCRIT (test code = HCT) 37.5 % 33.0-45.0 N MEAN CELL VOLUME (test code = MCV) 87.4 fL 81.0-99.0 N MEAN CELL HGB (test code = MCH) 30.3 pg 27.0-33.0 N MEAN CELL HGB CONCETRATION (test code = MCHC) 34.7 g/dL 33.0-37. 0 N RED CELL DISTRIBUTION WIDTH CV (test code = RDW) 15.0 % 11.5- 14.5 H RED CELL DISTRIBUTION WIDTH SD (test code = RDW-SD) 48.0 fL 37 .0-54.0 N PLATELET COUNT (test code = PLT) 68 x10 3/uL 150-400 L IMMATURE PLATELET FRACTION (test code = IPF) 3.2 % 0.9-11.2 N MEAN PLATELET VOLUME (test code = MPV) 10.0 fL 7.0-9.0 H MANUAL DIFF REQUIRED (test code = MDIFF) YES WBC [id number] 08:07:00* Test Item Value Reference Range Interpretation Comments ANISOCYTOSIS (test code = ANISO) PLATELET ESTIMATE (test code = PLTEST) THOUSAND ADEQUATE CBC W/AUTO [id number] 08:07:00* Test Item Value Reference Range Interpretation Comments WHITE BLOOD CELL (test code = WBC) 6.29 x10 3/uL 4.5-11.0 RED BLOOD CELL (test code = RBC) 4.29 x10 6/uL 3.54-5.02 N HEMOGLOBIN (test code = HGB) 13.0 g/dL 11.0-15.0 N HEMATOCRIT (test code = HCT) 37.5 % 33.0-45.0 N MEAN CELL VOLUME (test code = MCV) 87.4 fL 81.0-99.0 N MEAN CELL HGB (test code = MCH) 30.3 pg 27.0-33.0 N MEAN CELL HGB CONCETRATION (test code = MCHC) 34.7 g/dL 33.0-37. 0 N RED CELL DISTRIBUTION WIDTH CV (test code = RDW) 15.0 % 11.5- 14.5 H RED CELL DISTRIBUTION WIDTH SD (test code = RDW-SD) 48.0 fL 37 .0-54.0 N PLATELET COUNT (test code = PLT) 68 x10 3/uL 150-400 L IMMATURE PLATELET FRACTION (test code = IPF) 3.2 % 0.9-11.2 N MEAN PLATELET VOLUME (test code = MPV) 10.0 fL 7.0-9.0 H MANUAL DIFF REQUIRED (test code = MDIFF) YES WBC [id number] 08:07:00* Test Item Value Reference Range Interpretation Comments ANISOCYTOSIS (test code = ANISO) PLATELET ESTIMATE (test code = PLTEST) THOUSAND ADEQUATE - XR CHEST 1 [id number] 07:15:00 FAX: Jordy Martinez DO [phone] [place]: St: ADM FAX: Alexsandra Barron MD [phone] FAX: Talat Long Personbeto [phone] Name: HEIDI STEINER [facility] : 1960 Age/S: 58/F [address] [place] [address] Unit #: [id number] Loc: G.M324 [place] [address] Phys: Alexsandra Barron MD Acct: [id number] Dis Date: Status: ADM IN ONE #: [phone] Exam Date: 12/15/2018512 FAX #: [phone] Reason: ETT EXAMS: CPT CODE: [id number] XR CHEST 1 V 69748 1 VIEW CXR. PORTABLE EXAM 4:11 AM [...] concerning NG tube. END OF IMPRESSION SL: [id number] at 0715 Reported and signed by: Olivier Dennis M.D. CC: Jordy Gambino DO; Alexsandra Barron MD; Joycelyn Person MD Technologist: Elvis Jang Trnscrd Date/Time/By: 12/15/2018 (0715) : By: NeetaRTAtul Orig Print D/T: S: 12/15/2018 (2512) PAGE 1 Signed Report BASIC METABOLIC [id number] 06:39:00* Test Item Value Reference Range Interpretation Comments SODIUM (test code = NA) 142 mEq/L 134-147 N POTASSIUM (test code = K) 4.1 mEq/L 3.4-5.0 CHLORIDE (test code = CL) 109 mEq/L 100-108 H CARBON DIOXIDE (test code = CO2) 28 mEq/L 21-33 N ANION GAP (test code = GAP) 9 0-20 N GLUCOSE (test code = GLU) 92 mg/dL 70-110 N BLOOD UREA NITROGEN (test code = BUN) 21 mg/dL 7-18 H GLOMERULAR FILTRATION RATE (test code = GFR) 50.7 80-90 L Units of measure = ml/min/1.73 m2 CREATININE (test code = CREAT) 1.1 mg/dL 0.6-1.3 N CALCIUM (test code = CA) 7.7 mg/dL 8.0-10.5 L [id number] 06:39:00* Test Item Value Reference Range Interpretation Comments PHOSPHOROUS (test code = PHOS) 1.3 mg/dL 2.5-4.9 L [id number] 06:39:00* Test Item Value Reference Range Interpretation Comments MAGNESIUM (test code = MAG) 1.30 mg/dL 1.8-2.4 L CBC W/AUTO [id number] 06:16:00* Test Item Value Reference Range Interpretation Comments WHITE BLOOD CELL (test code = WBC) 6.21 x10 3/uL 4.5-11.0 N RED BLOOD CELL (test code = RBC) 3.90 x10 6/uL 3.54-5.02 N HEMOGLOBIN (test code = HGB) 11.7 g/dL 11.0-15.0 N HEMATOCRIT (test code = HCT) 34.0 % 33.0-45.0 N MEAN CELL VOLUME (test code = MCV) 87.2 fL 81.0-99.0 N MEAN CELL HGB (test code = MCH) 30.0 pg 27.0-33.0 N MEAN CELL HGB CONCETRATION (test code = MCHC) 34.4 g/dL 33.0-37. 0 N RED CELL DISTRIBUTION WIDTH CV (test code = RDW) 15.2 % 11.5- 14.5 H RED CELL DISTRIBUTION WIDTH SD (test code = RDW-SD) 48.3 fL 37 .0-54.0 N PLATELET COUNT (test code = PLT) 57 x10 3/uL 150-400 L MEAN PLATELET VOLUME (test code = MPV) 10.5 fL 7.0-9.0 H LYMPHOCYTE % (test code = LY%) % 14.0-32.0 MANUAL DIFF REQUIRED (test code = MDIFF) PROTHROMBIN [id number] 03:47:00* Test Item Value Reference Range Interpretation Comments PROTHROMBIN TIME PATIENT (test code = PTP) 12.5 SECONDS 9.3-12.9 INTERNATIONAL NORMAL RATIO (test code = INR) 1.1 0.8-1.2 N TARGET INR BY INDICATION Indication INR1. Prophylaxis [...] Infarction (to prevent recurrent infarct). CBC W/AUTO [id number] 03:38:00* Test Item Value Reference Range Interpretation Comments WHITE BLOOD CELL (test code = WBC) 6.29 x10 3/uL 4.5-11.0 RED BLOOD CELL (test code = RBC) 4.29 x10 6/uL 3.54-5.02 N HEMOGLOBIN (test code = HGB) 13.0 g/dL 11.0-15.0 N HEMATOCRIT (test code = HCT) 37.5 % 33.0-45.0 N MEAN CELL VOLUME (test code = MCV) 87.4 fL 81.0-99.0 N MEAN CELL HGB (test code = MCH) 30.3 pg 27.0-33.0 N MEAN CELL HGB CONCETRATION (test code = MCHC) 34.7 g/dL 33.0-37. 0 N RED CELL DISTRIBUTION WIDTH CV (test code = RDW) 15.0 % 11.5- 14.5 H RED CELL DISTRIBUTION WIDTH SD (test code = RDW-SD) 48.0 fL 37 .0-54.0 N PLATELET COUNT (test code = PLT) 68 x10 3/uL 150-400 L IMMATURE PLATELET FRACTION (test code = IPF) 3.2 % 0.9-11.2 N MEAN PLATELET VOLUME (test code = MPV) 10.0 fL 7.0-9.0 H LYMPHOCYTE % (test code = LY%) % 14.0-32.0 MANUAL DIFF REQUIRED (test code = MDIFF) HGB [id number] 02:34:00* Test Item Value Reference Range Interpretation Comments HEMOGLOBIN (test code = HGB) 12.4 g/dL 11.0-15.0 N HEMATOCRIT (test code = HCT) 36.3 % 33.0-45.0 N HGB [id number] 22:44:00* Test Item Value Reference Range Interpretation Comments HEMOGLOBIN (test code = HGB) 13.7 g/dL 11.0-15.0 HEMATOCRIT (test code = HCT) 41.3 % 33.0-45.0 POC ARTERIAL BLOOD [id number] 20:34:00* Test Item Value Reference Range Interpretation Comments POC ARTERIAL BLOOD GAS PH (test code = POCPHA) 7.416 7.35-7. 45 N POC ARTERIAL BLOOD GAS PCO2 (test code = ALAQPK3Y) 34.4 mmHg 35. 0-45 L POC TCO2 ARTERIAL (test code = POCTCO2) 23.1 POC ARTERIAL BLOOD GAS PO2 (test code = NRITR4Q) 172.3 mmHg 80-10 0.0 H POC HCO3 ARTERIAL (test code = PTBOMP1X) 22.1 MMOL/L 22.0-26.0 N POC BASE EXCESS (test code = POCBEA) -2.0 MMOL/L -4.0-4.0 N POC O2 SATURATION (test code = POCO2S) 99.6 % 90-100 N [id number] 20:34:00* Test Item Value Reference Range Interpretation Comments SODIUM (test code = NA/ABG) MEQ/L 134-147 [id number] 20:34:00* Test Item Value Reference Range Interpretation Comments POTASSIUM (test code = K/ABG) MEQ/L 3.4-5.0 [id number] 20:34:00* Test Item Value Reference Range Interpretation Comments CHLORIDE (test code = CL/ABG) MEQ/L 100-108 CREATININE [id number] 20:34:00* Test Item Value Reference Range Interpretation Comments CREATININE ABG (test code = CREAABG) mg/dL 0.6-1.0 [id number] 20:34:00* Test Item Value Reference Range Interpretation Comments HEMOGLOBIN (test code = HGB/ABG) G/DL 11.0-15.0 [id number] 20:34:00* Test Item Value Reference Range Interpretation Comments HEMATOCRIT (test code = HCT/ABG) % 33.0-45.0 POC IONIZED [id number] 20:34:00* Test Item Value Reference Range Interpretation Comments POC IONIZED CALCIUM (test code = POCCA) MMOL/L 1.12-1.32 POC [id number] 20:34:00* Test Item Value Reference Range Interpretation Comments POC GLUCOSE (test code = POCGLU) MG/DL 70-110 POC ARTERIAL BLOOD [id number] 20:34:00* Test Item Value Reference Range Interpretation Comments POC ARTERIAL BLOOD GAS PH (test code = POCPHA) 7.416 7.35-7. 45 N POC ARTERIAL BLOOD GAS PCO2 (test code = ZCJXDJ4J) 34.4 mmHg 35. 0-45 L POC TCO2 ARTERIAL (test code = POCTCO2) 23.1 POC ARTERIAL BLOOD GAS PO2 (test code = CVUKW1H) 172.3 mmHg 80-10 0.0 H POC HCO3 ARTERIAL (test code = CHSRED6N) 22.1 MMOL/L 22.0-26.0 N POC BASE EXCESS (test code = POCBEA) -2.0 MMOL/L -4.0-4.0 N POC O2 SATURATION (test code = POCO2S) 99.6 % 90-100 N [id number] 20:34:00* Test Item Value Reference Range Interpretation Comments SODIUM (test code = NA/ABG) 141 MEQ/L 134-147 N [id number] 20:34:00* Test Item Value Reference Range Interpretation Comments POTASSIUM (test code = K/ABG) MEQ/L 3.4-5.0 [id number] 20:34:00* Test Item Value Reference Range Interpretation Comments CHLORIDE (test code = CL/ABG) MEQ/L 100-108 CREATININE [id number] 20:34:00* Test Item Value Reference Range Interpretation Comments CREATININE ABG (test code = CREAABG) mg/dL 0.6-1.0 [id number] 20:34:00* Test Item Value Reference Range Interpretation Comments HEMOGLOBIN (test code = HGB/ABG) G/DL 11.0-15.0 [id number] 20:34:00* Test Item Value Reference Range Interpretation Comments HEMATOCRIT (test code = HCT/ABG) % 33.0-45.0 POC IONIZED [id number] 20:34:00* Test Item Value Reference Range Interpretation Comments POC IONIZED CALCIUM (test code = POCCA) MMOL/L 1.12-1.32 POC [id number] 20:34:00* Test Item Value Reference Range Interpretation Comments POC GLUCOSE (test code = POCGLU) MG/DL 70-110 POC ARTERIAL BLOOD [id number] 20:34:00* Test Item Value Reference Range Interpretation Comments POC ARTERIAL BLOOD GAS PH (test code = POCPHA) 7.416 7.35-7. 45 N POC ARTERIAL BLOOD GAS PCO2 (test code = ZVAIMK4Y) 34.4 mmHg 35. 0-45 L POC TCO2 ARTERIAL (test code = POCTCO2) 23.1 POC ARTERIAL BLOOD GAS PO2 (test code = YKXCT6X) 172.3 mmHg 80-10 0.0 H POC HCO3 ARTERIAL (test code = PMICIT2B) 22.1 MMOL/L 22.0-26.0 N POC BASE EXCESS (test code = POCBEA) -2.0 MMOL/L -4.0-4.0 N POC O2 SATURATION (test code = POCO2S) 99.6 % 90-100 N [id number] 20:34:00* Test Item Value Reference Range Interpretation Comments SODIUM (test code = NA/ABG) 141 MEQ/L 134-147 N [id number] 20:34:00* Test Item Value Reference Range Interpretation Comments POTASSIUM (test code = K/ABG) 2.8 MEQ/L 3.4-5.0 LL [id number] 20:34:00* Test Item Value Reference Range Interpretation Comments CHLORIDE (test code = CL/ABG) MEQ/L 100-108 CREATININE [id number] 20:34:00* Test Item Value Reference Range Interpretation Comments CREATININE ABG (test code = CREAABG) mg/dL 0.6-1.0 [id number] 20:34:00* Test Item Value Reference Range Interpretation Comments HEMOGLOBIN (test code = HGB/ABG) G/DL 11.0-15.0 [id number] 20:34:00* Test Item Value Reference Range Interpretation Comments HEMATOCRIT (test code = HCT/ABG) % 33.0-45.0 POC IONIZED [id number] 20:34:00* Test Item Value Reference Range Interpretation Comments POC IONIZED CALCIUM (test code = POCCA) MMOL/L 1.12-1.32 POC [id number] 20:34:00* Test Item Value Reference Range Interpretation Comments POC GLUCOSE (test code = POCGLU) MG/DL 70-110 POC ARTERIAL BLOOD [id number] 20:34:00* Test Item Value Reference Range Interpretation Comments POC ARTERIAL BLOOD GAS PH (test code = POCPHA) 7.416 7.35-7. 45 N POC ARTERIAL BLOOD GAS PCO2 (test code = YXSXON9C) 34.4 mmHg 35. 0-45 L POC TCO2 ARTERIAL (test code = POCTCO2) 23.1 POC ARTERIAL BLOOD GAS PO2 (test code = TETEK8F) 172.3 mmHg 80-10 0.0 H POC HCO3 ARTERIAL (test code = YWEJAD3M) 22.1 MMOL/L 22.0-26.0 N POC BASE EXCESS (test code = POCBEA) -2.0 MMOL/L -4.0-4.0 N POC O2 SATURATION (test code = POCO2S) 99.6 % 90-100 N [id number] 20:34:00* Test Item Value Reference Range Interpretation Comments SODIUM (test code = NA/ABG) 141 MEQ/L 134-147 N [id number] 20:34:00* Test Item Value Reference Range Interpretation Comments POTASSIUM (test code = K/ABG) 2.8 MEQ/L 3.4-5.0 LL [id number] 20:34:00* Test Item Value Reference Range Interpretation Comments CHLORIDE (test code = CL/ABG) MEQ/L 100-108 CREATININE [id number] 20:34:00* Test Item Value Reference Range Interpretation Comments CREATININE ABG (test code = CREAABG) mg/dL 0.6-1.0 [id number] 20:34:00* Test Item Value Reference Range Interpretation Comments HEMOGLOBIN (test code = HGB/ABG) G/DL 11.0-15.0 [id number] 20:34:00* Test Item Value Reference Range Interpretation Comments HEMATOCRIT (test code = HCT/ABG) % 33.0-45.0 POC IONIZED [id number] 20:34:00* Test Item Value Reference Range Interpretation Comments POC IONIZED CALCIUM (test code = POCCA) 0.97 MMOL/L 1.12-1.32 L POC [id number] 20:34:00* Test Item Value Reference Range Interpretation Comments POC GLUCOSE (test code = POCGLU) MG/DL 70-110 POC ARTERIAL BLOOD [id number] 20:34:00* Test Item Value Reference Range Interpretation Comments POC ARTERIAL BLOOD GAS PH (test code = POCPHA) 7.416 7.35-7. 45 N POC ARTERIAL BLOOD GAS PCO2 (test code = JKDZJC2J) 34.4 mmHg 35. 0-45 L POC TCO2 ARTERIAL (test code = POCTCO2) 23.1 POC ARTERIAL BLOOD GAS PO2 (test code = XHSSC0B) 172.3 mmHg 80-10 0.0 H POC HCO3 ARTERIAL (test code = WEGDYN9U) 22.1 MMOL/L 22.0-26.0 N POC BASE EXCESS (test code = POCBEA) -2.0 MMOL/L -4.0-4.0 N POC O2 SATURATION (test code = POCO2S) 99.6 % 90-100 N [id number] 20:34:00* Test Item Value Reference Range Interpretation Comments SODIUM (test code = NA/ABG) 141 MEQ/L 134-147 N [id number] 20:34:00* Test Item Value Reference Range Interpretation Comments POTASSIUM (test code = K/ABG) 2.8 MEQ/L 3.4-5.0 LL [id number] 20:34:00* Test Item Value Reference Range Interpretation Comments CHLORIDE (test code = CL/ABG) MEQ/L 100-108 CREATININE [id number] 20:34:00* Test Item Value Reference Range Interpretation Comments CREATININE ABG (test code = CREAABG) mg/dL 0.6-1.0 [id number] 20:34:00* Test Item Value Reference Range Interpretation Comments HEMOGLOBIN (test code = HGB/ABG) G/DL 11.0-15.0 [id number] 20:34:00* Test Item Value Reference Range Interpretation Comments HEMATOCRIT (test code = HCT/ABG) % 33.0-45.0 POC IONIZED [id number] 20:34:00* Test Item Value Reference Range Interpretation Comments POC IONIZED CALCIUM (test code = POCCA) 0.97 MMOL/L 1.12-1.32 L POC [id number] 20:34:00* Test Item Value Reference Range Interpretation Comments POC GLUCOSE (test code = POCGLU) 94 MG/DL 70-110 N POC ARTERIAL BLOOD [id number] 20:34:00* Test Item Value Reference Range Interpretation Comments POC ARTERIAL BLOOD GAS PH (test code = POCPHA) 7.416 7.35-7. 45 N POC ARTERIAL BLOOD GAS PCO2 (test code = EZPSKQ5U) 34.4 mmHg 35. 0-45 L POC TCO2 ARTERIAL (test code = POCTCO2) 23.1 POC ARTERIAL BLOOD GAS PO2 (test code = EYUON7V) 172.3 mmHg 80-10 0.0 H POC HCO3 ARTERIAL (test code = UZTFWZ3I) 22.1 MMOL/L 22.0-26.0 N POC BASE EXCESS (test code = POCBEA) -2.0 MMOL/L -4.0-4.0 N POC O2 SATURATION (test code = POCO2S) 99.6 % 90-100 N [id number] 20:34:00* Test Item Value Reference Range Interpretation Comments SODIUM (test code = NA/ABG) 141 MEQ/L 134-147 N [id number] 20:34:00* Test Item Value Reference Range Interpretation Comments POTASSIUM (test code = K/ABG) 2.8 MEQ/L 3.4-5.0 LL [id number] 20:34:00* Test Item Value Reference Range Interpretation Comments CHLORIDE (test code = CL/ABG) MEQ/L 100-108 CREATININE [id number] 20:34:00* Test Item Value Reference Range Interpretation Comments CREATININE ABG (test code = CREAABG) mg/dL 0.6-1.0 [id number] 20:34:00* Test Item Value Reference Range Interpretation Comments HEMOGLOBIN (test code = HGB/ABG) G/DL 11.0-15.0 [id number] 20:34:00* Test Item Value Reference Range Interpretation Comments HEMATOCRIT (test code = HCT/ABG) 31 % 33.0-45.0 L POC IONIZED [id number] 20:34:00* Test Item Value Reference Range Interpretation Comments POC IONIZED CALCIUM (test code = POCCA) 0.97 MMOL/L 1.12-1.32 L POC [id number] 20:34:00* Test Item Value Reference Range Interpretation Comments POC GLUCOSE (test code = POCGLU) 94 MG/DL 70-110 N POC ARTERIAL BLOOD [id number] 20:34:00* Test Item Value Reference Range Interpretation Comments POC ARTERIAL BLOOD GAS PH (test code = POCPHA) 7.416 7.35-7. 45 N POC ARTERIAL BLOOD GAS PCO2 (test code = WDEVRY1M) 34.4 mmHg 35. 0-45 L POC TCO2 ARTERIAL (test code = POCTCO2) 23.1 POC ARTERIAL BLOOD GAS PO2 (test code = CREUA7U) 172.3 mmHg 80-10 0.0 H POC HCO3 ARTERIAL (test code = RINLTM5K) 22.1 MMOL/L 22.0-26.0 N POC BASE EXCESS (test code = POCBEA) -2.0 MMOL/L -4.0-4.0 N POC O2 SATURATION (test code = POCO2S) 99.6 % 90-100 N [id number] 20:34:00* Test Item Value Reference Range Interpretation Comments SODIUM (test code = NA/ABG) 141 MEQ/L 134-147 N [id number] 20:34:00* Test Item Value Reference Range Interpretation Comments POTASSIUM (test code = K/ABG) 2.8 MEQ/L 3.4-5.0 LL [id number] 20:34:00* Test Item Value Reference Range Interpretation Comments CHLORIDE (test code = CL/ABG) MEQ/L 100-108 CREATININE [id number] 20:34:00* Test Item Value Reference Range Interpretation Comments CREATININE ABG (test code = CREAABG) mg/dL 0.6-1.0 [id number] 20:34:00* Test Item Value Reference Range Interpretation Comments HEMOGLOBIN (test code = HGB/ABG) 10.6 G/DL 11.0-15.0 L [id number] 20:34:00* Test Item Value Reference Range Interpretation Comments HEMATOCRIT (test code = HCT/ABG) 31 % 33.0-45.0 L POC IONIZED [id number] 20:34:00* Test Item Value Reference Range Interpretation Comments POC IONIZED CALCIUM (test code = POCCA) 0.97 MMOL/L 1.12-1.32 L POC [id number] 20:34:00* Test Item Value Reference Range Interpretation Comments POC GLUCOSE (test code = POCGLU) 94 MG/DL 70-110 N POC ARTERIAL BLOOD [id number] 20:34:00* Test Item Value Reference Range Interpretation Comments POC ARTERIAL BLOOD GAS PH (test code = POCPHA) 7.416 7.35-7. 45 N POC ARTERIAL BLOOD GAS PCO2 (test code = NNXUAR5H) 34.4 mmHg 35. 0-45 L POC TCO2 ARTERIAL (test code = POCTCO2) 23.1 POC ARTERIAL BLOOD GAS PO2 (test code = JRFBP5S) 172.3 mmHg 80-10 0.0 H POC HCO3 ARTERIAL (test code = AKTQTL0V) 22.1 MMOL/L 22.0-26.0 N POC BASE EXCESS (test code = POCBEA) -2.0 MMOL/L -4.0-4.0 N POC O2 SATURATION (test code = POCO2S) 99.6 % 90-100 N [id number] 20:34:00* Test Item Value Reference Range Interpretation Comments SODIUM (test code = NA/ABG) 141 MEQ/L 134-147 N [id number] 20:34:00* Test Item Value Reference Range Interpretation Comments POTASSIUM (test code = K/ABG) 2.8 MEQ/L 3.4-5.0 LL [id number] 20:34:00* Test Item Value Reference Range Interpretation Comments CHLORIDE (test code = CL/ABG) 107 MEQ/L 100-108 N CREATININE [id number] 20:34:00* Test Item Value Reference Range Interpretation Comments CREATININE ABG (test code = CREAABG) mg/dL 0.6-1.0 [id number] 20:34:00* Test Item Value Reference Range Interpretation Comments HEMOGLOBIN (test code = HGB/ABG) 10.6 G/DL 11.0-15.0 L [id number] 20:34:00* Test Item Value Reference Range Interpretation Comments HEMATOCRIT (test code = HCT/ABG) 31 % 33.0-45.0 L POC IONIZED [id number] 20:34:00* Test Item Value Reference Range Interpretation Comments POC IONIZED CALCIUM (test code = POCCA) 0.97 MMOL/L 1.12-1.32 L POC [id number] 20:34:00* Test Item Value Reference Range Interpretation Comments POC GLUCOSE (test code = POCGLU) 94 MG/DL 70-110 N POC ARTERIAL BLOOD [id number] 20:34:00* Test Item Value Reference Range Interpretation Comments POC ARTERIAL BLOOD GAS PH (test code = POCPHA) 7.416 7.35-7. 45 N POC ARTERIAL BLOOD GAS PCO2 (test code = PWGYBR2G) 34.4 mmHg 35. 0-45 L POC TCO2 ARTERIAL (test code = POCTCO2) 23.1 POC ARTERIAL BLOOD GAS PO2 (test code = UAXZT4F) 172.3 mmHg 80-10 0.0 H POC HCO3 ARTERIAL (test code = OUIPTH5N) 22.1 MMOL/L 22.0-26.0 N POC BASE EXCESS (test code = POCBEA) -2.0 MMOL/L -4.0-4.0 N POC O2 SATURATION (test code = POCO2S) 99.6 % 90-100 N [id number] 20:34:00* Test Item Value Reference Range Interpretation Comments SODIUM (test code = NA/ABG) 141 MEQ/L 134-147 N [id number] 20:34:00* Test Item Value Reference Range Interpretation Comments POTASSIUM (test code = K/ABG) 2.8 MEQ/L 3.4-5.0 LL [id number] 20:34:00* Test Item Value Reference Range Interpretation Comments CHLORIDE (test code = CL/ABG) 107 MEQ/L 100-108 N CREATININE [id number] 20:34:00* Test Item Value Reference Range Interpretation Comments CREATININE ABG (test code = CREAABG) 0.8 mg/dL 0.6-1.0 N [id number] 20:34:00* Test Item Value Reference Range Interpretation Comments HEMOGLOBIN (test code = HGB/ABG) 10.6 G/DL 11.0-15.0 L [id number] 20:34:00* Test Item Value Reference Range Interpretation Comments HEMATOCRIT (test code = HCT/ABG) 31 % 33.0-45.0 L POC IONIZED [id number] 20:34:00* Test Item Value Reference Range Interpretation Comments POC IONIZED CALCIUM (test code = POCCA) 0.97 MMOL/L 1.12-1.32 L POC [id number] 20:34:00* Test Item Value Reference Range Interpretation Comments POC GLUCOSE (test code = POCGLU) 94 MG/DL 70-110 N POC ARTERIAL BLOOD [id number] 20:00:00* Test Item Value Reference Range Interpretation Comments POC ARTERIAL BLOOD GAS PH (test code = POCPHA) 7.447 7.35-7. 45 N POC ARTERIAL BLOOD GAS PCO2 (test code = WCNLEE2C) 35.1 mmHg 35. 0-45 N POC TCO2 ARTERIAL (test code = POCTCO2) 25.3 POC ARTERIAL BLOOD GAS PO2 (test code = SFHSH5N) 204.2 mmHg 80-10 0.0 HH POC HCO3 ARTERIAL (test code = VEEOJH1I) 24.2 MMOL/L 22.0-26.0 N POC BASE EXCESS (test code = POCBEA) 0.3 MMOL/L -4.0-4.0 N POC O2 SATURATION (test code = POCO2S) 99.8 % 90-100 N [id number] 20:00:00* Test Item Value Reference Range Interpretation Comments SODIUM (test code = NA/ABG) MEQ/L 134-147 [id number] 20:00:00* Test Item Value Reference Range Interpretation Comments POTASSIUM (test code = K/ABG) MEQ/L 3.4-5.0 [id number] 20:00:00* Test Item Value Reference Range Interpretation Comments CHLORIDE (test code = CL/ABG) MEQ/L 100-108 CREATININE [id number] 20:00:00* Test Item Value Reference Range Interpretation Comments CREATININE ABG (test code = CREAABG) mg/dL 0.6-1.0 [id number] 20:00:00* Test Item Value Reference Range Interpretation Comments HEMOGLOBIN (test code = HGB/ABG) G/DL 11.0-15.0 [id number] 20:00:00* Test Item Value Reference Range Interpretation Comments HEMATOCRIT (test code = HCT/ABG) % 33.0-45.0 POC IONIZED [id number] 20:00:00* Test Item Value Reference Range Interpretation Comments POC IONIZED CALCIUM (test code = POCCA) MMOL/L 1.12-1.32 POC [id number] 20:00:00* Test Item Value Reference Range Interpretation Comments POC GLUCOSE (test code = POCGLU) MG/DL 70-110 POC ARTERIAL BLOOD [id number] 20:00:00* Test Item Value Reference Range Interpretation Comments POC ARTERIAL BLOOD GAS PH (test code = POCPHA) 7.447 7.35-7. 45 N POC ARTERIAL BLOOD GAS PCO2 (test code = QNKKHW7W) 35.1 mmHg 35. 0-45 N POC TCO2 ARTERIAL (test code = POCTCO2) 25.3 POC ARTERIAL BLOOD GAS PO2 (test code = KHFMQ1M) 204.2 mmHg 80-10 0.0 HH POC HCO3 ARTERIAL (test code = TNSSMD4F) 24.2 MMOL/L 22.0-26.0 N POC BASE EXCESS (test code = POCBEA) 0.3 MMOL/L -4.0-4.0 N POC O2 SATURATION (test code = POCO2S) 99.8 % 90-100 N [id number] 20:00:00* Test Item Value Reference Range Interpretation Comments SODIUM (test code = NA/ABG) 142 MEQ/L 134-147 N [id number] 20:00:00* Test Item Value Reference Range Interpretation Comments POTASSIUM (test code = K/ABG) MEQ/L 3.4-5.0 [id number] 20:00:00* Test Item Value Reference Range Interpretation Comments CHLORIDE (test code = CL/ABG) MEQ/L 100-108 CREATININE [id number] 20:00:00* Test Item Value Reference Range Interpretation Comments CREATININE ABG (test code = CREAABG) mg/dL 0.6-1.0 [id number] 20:00:00* Test Item Value Reference Range Interpretation Comments HEMOGLOBIN (test code = HGB/ABG) G/DL 11.0-15.0 [id number] 20:00:00* Test Item Value Reference Range Interpretation Comments HEMATOCRIT (test code = HCT/ABG) % 33.0-45.0 POC IONIZED [id number] 20:00:00* Test Item Value Reference Range Interpretation Comments POC IONIZED CALCIUM (test code = POCCA) MMOL/L 1.12-1.32 POC [id number] 20:00:00* Test Item Value Reference Range Interpretation Comments POC GLUCOSE (test code = POCGLU) MG/DL 70-110 POC ARTERIAL BLOOD [id number] 20:00:00* Test Item Value Reference Range Interpretation Comments POC ARTERIAL BLOOD GAS PH (test code = POCPHA) 7.447 7.35-7. 45 N POC ARTERIAL BLOOD GAS PCO2 (test code = LVNREC2T) 35.1 mmHg 35. 0-45 N POC TCO2 ARTERIAL (test code = POCTCO2) 25.3 POC ARTERIAL BLOOD GAS PO2 (test code = HARZB2Z) 204.2 mmHg 80-10 0.0 HH POC HCO3 ARTERIAL (test code = IOHQTC2C) 24.2 MMOL/L 22.0-26.0 N POC BASE EXCESS (test code = POCBEA) 0.3 MMOL/L -4.0-4.0 N POC O2 SATURATION (test code = POCO2S) 99.8 % 90-100 N [id number] 20:00:00* Test Item Value Reference Range Interpretation Comments SODIUM (test code = NA/ABG) 142 MEQ/L 134-147 N [id number] 20:00:00* Test Item Value Reference Range Interpretation Comments POTASSIUM (test code = K/ABG) 3.1 MEQ/L 3.4-5.0 L [id number] 20:00:00* Test Item Value Reference Range Interpretation Comments CHLORIDE (test code = CL/ABG) MEQ/L 100-108 CREATININE [id number] 20:00:00* Test Item Value Reference Range Interpretation Comments CREATININE ABG (test code = CREAABG) mg/dL 0.6-1.0 [id number] 20:00:00* Test Item Value Reference Range Interpretation Comments HEMOGLOBIN (test code = HGB/ABG) G/DL 11.0-15.0 [id number] 20:00:00* Test Item Value Reference Range Interpretation Comments HEMATOCRIT (test code = HCT/ABG) % 33.0-45.0 POC IONIZED [id number] 20:00:00* Test Item Value Reference Range Interpretation Comments POC IONIZED CALCIUM (test code = POCCA) MMOL/L 1.12-1.32 POC [id number] 20:00:00* Test Item Value Reference Range Interpretation Comments POC GLUCOSE (test code = POCGLU) MG/DL 70-110 POC ARTERIAL BLOOD [id number] 20:00:00* Test Item Value Reference Range Interpretation Comments POC ARTERIAL BLOOD GAS PH (test code = POCPHA) 7.447 7.35-7. 45 N POC ARTERIAL BLOOD GAS PCO2 (test code = LGPOQF9Q) 35.1 mmHg 35. 0-45 N POC TCO2 ARTERIAL (test code = POCTCO2) 25.3 POC ARTERIAL BLOOD GAS PO2 (test code = QBQCF9D) 204.2 mmHg 80-10 0.0 HH POC HCO3 ARTERIAL (test code = CALLCV9P) 24.2 MMOL/L 22.0-26.0 N POC BASE EXCESS (test code = POCBEA) 0.3 MMOL/L -4.0-4.0 N POC O2 SATURATION (test code = POCO2S) 99.8 % 90-100 N [id number] 20:00:00* Test Item Value Reference Range Interpretation Comments SODIUM (test code = NA/ABG) 142 MEQ/L 134-147 N [id number] 20:00:00* Test Item Value Reference Range Interpretation Comments POTASSIUM (test code = K/ABG) 3.1 MEQ/L 3.4-5.0 L [id number] 20:00:00* Test Item Value Reference Range Interpretation Comments CHLORIDE (test code = CL/ABG) MEQ/L 100-108 CREATININE [id number] 20:00:00* Test Item Value Reference Range Interpretation Comments CREATININE ABG (test code = CREAABG) mg/dL 0.6-1.0 [id number] 20:00:00* Test Item Value Reference Range Interpretation Comments HEMOGLOBIN (test code = HGB/ABG) G/DL 11.0-15.0 [id number] 20:00:00* Test Item Value Reference Range Interpretation Comments HEMATOCRIT (test code = HCT/ABG) % 33.0-45.0 POC IONIZED [id number] 20:00:00* Test Item Value Reference Range Interpretation Comments POC IONIZED CALCIUM (test code = POCCA) 1.05 MMOL/L 1.12-1.32 L POC [id number] 20:00:00* Test Item Value Reference Range Interpretation Comments POC GLUCOSE (test code = POCGLU) MG/DL 70-110 POC ARTERIAL BLOOD [id number] 20:00:00* Test Item Value Reference Range Interpretation Comments POC ARTERIAL BLOOD GAS PH (test code = POCPHA) 7.447 7.35-7. 45 N POC ARTERIAL BLOOD GAS PCO2 (test code = BEWGZL4D) 35.1 mmHg 35. 0-45 N POC TCO2 ARTERIAL (test code = POCTCO2) 25.3 POC ARTERIAL BLOOD GAS PO2 (test code = XXHSW5L) 204.2 mmHg 80-10 0.0 HH POC HCO3 ARTERIAL (test code = GXARQD6L) 24.2 MMOL/L 22.0-26.0 N POC BASE EXCESS (test code = POCBEA) 0.3 MMOL/L -4.0-4.0 N POC O2 SATURATION (test code = POCO2S) 99.8 % 90-100 N [id number] 20:00:00* Test Item Value Reference Range Interpretation Comments SODIUM (test code = NA/ABG) 142 MEQ/L 134-147 N [id number] 20:00:00* Test Item Value Reference Range Interpretation Comments POTASSIUM (test code = K/ABG) 3.1 MEQ/L 3.4-5.0 L [id number] 20:00:00* Test Item Value Reference Range Interpretation Comments CHLORIDE (test code = CL/ABG) MEQ/L 100-108 CREATININE [id number] 20:00:00* Test Item Value Reference Range Interpretation Comments CREATININE ABG (test code = CREAABG) mg/dL 0.6-1.0 [id number] 20:00:00* Test Item Value Reference Range Interpretation Comments HEMOGLOBIN (test code = HGB/ABG) G/DL 11.0-15.0 [id number] 20:00:00* Test Item Value Reference Range Interpretation Comments HEMATOCRIT (test code = HCT/ABG) % 33.0-45.0 POC IONIZED [id number] 20:00:00* Test Item Value Reference Range Interpretation Comments POC IONIZED CALCIUM (test code = POCCA) 1.05 MMOL/L 1.12-1.32 L POC [id number] 20:00:00* Test Item Value Reference Range Interpretation Comments POC GLUCOSE (test code = POCGLU) 77 MG/DL 70-110 N POC ARTERIAL BLOOD [id number] 20:00:00* Test Item Value Reference Range Interpretation Comments POC ARTERIAL BLOOD GAS PH (test code = POCPHA) 7.447 7.35-7. 45 N POC ARTERIAL BLOOD GAS PCO2 (test code = DYVNZI7T) 35.1 mmHg 35. 0-45 N POC TCO2 ARTERIAL (test code = POCTCO2) 25.3 POC ARTERIAL BLOOD GAS PO2 (test code = ATDRM9Z) 204.2 mmHg 80-10 0.0 HH POC HCO3 ARTERIAL (test code = OZAIMU5H) 24.2 MMOL/L 22.0-26.0 N POC BASE EXCESS (test code = POCBEA) 0.3 MMOL/L -4.0-4.0 N POC O2 SATURATION (test code = POCO2S) 99.8 % 90-100 N [id number] 20:00:00* Test Item Value Reference Range Interpretation Comments SODIUM (test code = NA/ABG) 142 MEQ/L 134-147 N [id number] 20:00:00* Test Item Value Reference Range Interpretation Comments POTASSIUM (test code = K/ABG) 3.1 MEQ/L 3.4-5.0 L [id number] 20:00:00* Test Item Value Reference Range Interpretation Comments CHLORIDE (test code = CL/ABG) MEQ/L 100-108 CREATININE [id number] 20:00:00* Test Item Value Reference Range Interpretation Comments CREATININE ABG (test code = CREAABG) mg/dL 0.6-1.0 [id number] 20:00:00* Test Item Value Reference Range Interpretation Comments HEMOGLOBIN (test code = HGB/ABG) G/DL 11.0-15.0 [id number] 20:00:00* Test Item Value Reference Range Interpretation Comments HEMATOCRIT (test code = HCT/ABG) 25 % 33.0-45.0 L POC IONIZED [id number] 20:00:00* Test Item Value Reference Range Interpretation Comments POC IONIZED CALCIUM (test code = POCCA) 1.05 MMOL/L 1.12-1.32 L POC [id number] 20:00:00* Test Item Value Reference Range Interpretation Comments POC GLUCOSE (test code = POCGLU) 77 MG/DL 70-110 N POC ARTERIAL BLOOD [id number] 20:00:00* Test Item Value Reference Range Interpretation Comments POC ARTERIAL BLOOD GAS PH (test code = POCPHA) 7.447 7.35-7. 45 N POC ARTERIAL BLOOD GAS PCO2 (test code = GMVYSV1H) 35.1 mmHg 35. 0-45 N POC TCO2 ARTERIAL (test code = POCTCO2) 25.3 POC ARTERIAL BLOOD GAS PO2 (test code = WNVQV4C) 204.2 mmHg 80-10 0.0 HH POC HCO3 ARTERIAL (test code = DPBAJD2P) 24.2 MMOL/L 22.0-26.0 N POC BASE EXCESS (test code = POCBEA) 0.3 MMOL/L -4.0-4.0 N POC O2 SATURATION (test code = POCO2S) 99.8 % 90-100 N [id number] 20:00:00* Test Item Value Reference Range Interpretation Comments SODIUM (test code = NA/ABG) 142 MEQ/L 134-147 N [id number] 20:00:00* Test Item Value Reference Range Interpretation Comments POTASSIUM (test code = K/ABG) 3.1 MEQ/L 3.4-5.0 L [id number] 20:00:00* Test Item Value Reference Range Interpretation Comments CHLORIDE (test code = CL/ABG) MEQ/L 100-108 CREATININE [id number] 20:00:00* Test Item Value Reference Range Interpretation Comments CREATININE ABG (test code = CREAABG) mg/dL 0.6-1.0 [id number] 20:00:00* Test Item Value Reference Range Interpretation Comments HEMOGLOBIN (test code = HGB/ABG) 8.5 G/DL 11.0-15.0 L [id number] 20:00:00* Test Item Value Reference Range Interpretation Comments HEMATOCRIT (test code = HCT/ABG) 25 % 33.0-45.0 L POC IONIZED [id number] 20:00:00* Test Item Value Reference Range Interpretation Comments POC IONIZED CALCIUM (test code = POCCA) 1.05 MMOL/L 1.12-1.32 L POC [id number] 20:00:00* Test Item Value Reference Range Interpretation Comments POC GLUCOSE (test code = POCGLU) 77 MG/DL 70-110 N POC ARTERIAL BLOOD [id number] 20:00:00* Test Item Value Reference Range Interpretation Comments POC ARTERIAL BLOOD GAS PH (test code = POCPHA) 7.447 7.35-7. 45 N POC ARTERIAL BLOOD GAS PCO2 (test code = ENVWDH5T) 35.1 mmHg 35. 0-45 N POC TCO2 ARTERIAL (test code = POCTCO2) 25.3 POC ARTERIAL BLOOD GAS PO2 (test code = ORQIF2Q) 204.2 mmHg 80-10 0.0 HH POC HCO3 ARTERIAL (test code = FMSKNW0J) 24.2 MMOL/L 22.0-26.0 N POC BASE EXCESS (test code = POCBEA) 0.3 MMOL/L -4.0-4.0 N POC O2 SATURATION (test code = POCO2S) 99.8 % 90-100 N [id number] 20:00:00* Test Item Value Reference Range Interpretation Comments SODIUM (test code = NA/ABG) 142 MEQ/L 134-147 N [id number] 20:00:00* Test Item Value Reference Range Interpretation Comments POTASSIUM (test code = K/ABG) 3.1 MEQ/L 3.4-5.0 L [id number] 20:00:00* Test Item Value Reference Range Interpretation Comments CHLORIDE (test code = CL/ABG) 107 MEQ/L 100-108 N CREATININE [id number] 20:00:00* Test Item Value Reference Range Interpretation Comments CREATININE ABG (test code = CREAABG) mg/dL 0.6-1.0 [id number] 20:00:00* Test Item Value Reference Range Interpretation Comments HEMOGLOBIN (test code = HGB/ABG) 8.5 G/DL 11.0-15.0 L [id number] 20:00:00* Test Item Value Reference Range Interpretation Comments HEMATOCRIT (test code = HCT/ABG) 25 % 33.0-45.0 L POC IONIZED [id number] 20:00:00* Test Item Value Reference Range Interpretation Comments POC IONIZED CALCIUM (test code = POCCA) 1.05 MMOL/L 1.12-1.32 L POC [id number] 20:00:00* Test Item Value Reference Range Interpretation Comments POC GLUCOSE (test code = POCGLU) 77 MG/DL 70-110 N POC ARTERIAL BLOOD [id number] 20:00:00* Test Item Value Reference Range Interpretation Comments POC ARTERIAL BLOOD GAS PH (test code = POCPHA) 7.447 7.35-7. 45 N POC ARTERIAL BLOOD GAS PCO2 (test code = LULJMB2T) 35.1 mmHg 35. 0-45 N POC TCO2 ARTERIAL (test code = POCTCO2) 25.3 POC ARTERIAL BLOOD GAS PO2 (test code = RRIVR0N) 204.2 mmHg 80-10 0.0 HH POC HCO3 ARTERIAL (test code = MMGYFM6Z) 24.2 MMOL/L 22.0-26.0 N POC BASE EXCESS (test code = POCBEA) 0.3 MMOL/L -4.0-4.0 N POC O2 SATURATION (test code = POCO2S) 99.8 % 90-100 N [id number] 20:00:00* Test Item Value Reference Range Interpretation Comments SODIUM (test code = NA/ABG) 142 MEQ/L 134-147 N [id number] 20:00:00* Test Item Value Reference Range Interpretation Comments POTASSIUM (test code = K/ABG) 3.1 MEQ/L 3.4-5.0 L [id number] 20:00:00* Test Item Value Reference Range Interpretation Comments CHLORIDE (test code = CL/ABG) 107 MEQ/L 100-108 N CREATININE [id number] 20:00:00* Test Item Value Reference Range Interpretation Comments CREATININE ABG (test code = CREAABG) 0.8 mg/dL 0.6-1.0 N [id number] 20:00:00* Test Item Value Reference Range Interpretation Comments HEMOGLOBIN (test code = HGB/ABG) 8.5 G/DL 11.0-15.0 L [id number] 20:00:00* Test Item Value Reference Range Interpretation Comments HEMATOCRIT (test code = HCT/ABG) 25 % 33.0-45.0 L POC IONIZED [id number] 20:00:00* Test Item Value Reference Range Interpretation Comments POC IONIZED CALCIUM (test code = POCCA) 1.05 MMOL/L 1.12-1.32 L POC [id number] 20:00:00* Test Item Value Reference Range Interpretation Comments POC GLUCOSE (test code = POCGLU) 77 MG/DL 70-110 N HGB [id number] 16:20:00* Test Item Value Reference Range Interpretation Comments HEMOGLOBIN (test code = HGB) 7.4 g/dL 11.0-15.0 L HEMATOCRIT (test code = HCT) 21.4 % 33.0-45.0 L CBC W/AUTO [id number] 14:23:00* Test Item Value Reference Range Interpretation Comments WHITE BLOOD CELL (test code = WBC) 2.77 x10 3/uL 4.5-11.0 L RED BLOOD CELL (test code = RBC) 1.48 x10 6/uL 3.54-5.02 L HEMOGLOBIN (test code = HGB) 4.5 g/dL 11.0-15.0 LL HEMATOCRIT (test code = HCT) 13.3 % 33.0-45.0 L MEAN CELL VOLUME (test code = MCV) 89.9 fL 81.0-99.0 N MEAN CELL HGB (test code = MCH) 30.4 pg 27.0-33.0 N MEAN CELL HGB CONCETRATION (test code = MCHC) 33.8 g/dL 33.0-37. 0 N RED CELL DISTRIBUTION WIDTH CV (test code = RDW) 15.3 % 11.5- 14.5 H RED CELL DISTRIBUTION WIDTH SD (test code = RDW-SD) 50.3 fL 37 .0-54.0 N PLATELET COUNT (test code = PLT) x10 3/uL 150-400 SEE PLT EST. Previously reported result: 8 x10\\S\\3/uLEdited by: CAMILA on 12/14/18:670587/11/03 1422: PLT previously reported as: 8 D*L x10\\S\\3/uL IMMATURE PLATELET FRACTION (test code = IPF) 16.3 % 0.9-11.2 H MEAN PLATELET VOLUME (test code = MPV) 13.1 fL 7.0-9.0 H MANUAL DIFF REQUIRED (test code = MDIFF) YES WBC [id number] 14:23:00* Test Item Value Reference Range Interpretation Comments SEGMENTED NEUTROPHILS (test code = SEG) 75.0 % 37-69 H LYMPHOCYTE (test code = LYMPH) 13.0 % 23-55 L REACTIVE LYMPH (test code = RELYMPH) 2.0 % MONOCYTE (test code = MON) 4.0 % 0-10 N EOSINOPHIL (test code = EOS) 1.0 % 0.0-4.0 N MYELOCYTE (test code = MYELO) 4.0 % 0.0-0.0 H PROMYELOCYTE (test code = PROM) 1.0 % 0-0 H NUCLEATED RED BLOOD CELL (test code = NRBC) 7.0 % POLYCHROMASIA (test code = POLC) 1+ POIKILOCYTOSIS (test code = POIK) 1+ ANISOCYTOSIS (test code = ANISO) 1+ MICROCYTOSIS (test code = MICR) 1+ OVALOCYTES (test code = OVAL) FEW PLATELET ESTIMATE (test code = PLTEST) 24-30 THOUSAND ADEQUATE PLATELET MORPHOLOGY (test code = PLTMORPH) GIANT PLATELETS ARTERIAL BLOOD [id number] 12:23:00* Test Item Value Reference Range Interpretation Comments ARTERIAL BLOOD GAS PH (test code = PHA) 7.431 7.35-7.45 N ARTERIAL BLOOD GAS PCO2 (test code = PCO2A) 35.7 mmHg 35-45 N ARTERIAL BLOOD GAS PO2 (test code = PO2A) 186 mmHg 80-100 H BICARBONATE TOTAL HCO3 (test code = HCO3) 23.8 mmol/L 22.0-26.0 N BASE EXCESS (test code = DIYA) -1.0 mmol/L -4-4 N ABG O2 SATURATION (test code = SATA) 100 % 90-100 N FIO2 (test code = FIO2A) 40 % ABG DELIVERY (test code = GLADYS) Vent ABG VENT MODE (test code = MODEA) AC v con ABG VENT RESP RATE (test code = RRA) 12 /MIN ABG TIDAL VOLUME (test code = TVA) 450 ml ABG PEEP (test code = PEEPA) 5 cmH2O Performed by certified threader operator at [facility] ABG TEMPERATURE (test code = TEMPA) 37.0 F ABG SITE (test code = SITEA) Art line PREDICTED AA GRADIENT (test code = AP) 63 PREDICTED PO2 (test code = OP) 179 a/A RATIO (test code = RATIO) 0.77 TCO2 ARTERIAL (test code = TCO2A) 25 A-A GRADIENT (test code = AAGRADE) 56 CBC W/AUTO [id number] 12:13:00* Test Item Value Reference Range Interpretation Comments WHITE BLOOD CELL (test code = WBC) 2.77 x10 3/uL 4.5-11.0 L RED BLOOD CELL (test code = RBC) 1.48 x10 6/uL 3.54-5.02 L HEMOGLOBIN (test code = HGB) 4.5 g/dL 11.0-15.0 LL HEMATOCRIT (test code = HCT) 13.3 % 33.0-45.0 L MEAN CELL VOLUME (test code = MCV) 89.9 fL 81.0-99.0 N MEAN CELL HGB (test code = MCH) 30.4 pg 27.0-33.0 N MEAN CELL HGB CONCETRATION (test code = MCHC) 33.8 g/dL 33.0-37. 0 N RED CELL DISTRIBUTION WIDTH CV (test code = RDW) 15.3 % 11.5- 14.5 H RED CELL DISTRIBUTION WIDTH SD (test code = RDW-SD) 50.3 fL 37 .0-54.0 N PLATELET COUNT (test code = PLT) 8 x10 3/uL 150-400 LL IMMATURE PLATELET FRACTION (test code = IPF) 16.3 % 0.9-11.2 H MEAN PLATELET VOLUME (test code = MPV) 13.1 fL 7.0-9.0 H MANUAL DIFF REQUIRED (test code = MDIFF) YES PATHOLOGISTS [id number] 12:13:00* Test Item Value Reference Range Interpretation Comments PATHOLOGISTS FINDINGS (test code = PATH FIND) WBC [id number] 12:13:00* Test Item Value Reference Range Interpretation Comments SEGMENTED NEUTROPHILS (test code = SEG) 75.0 % 37-69 H LYMPHOCYTE (test code = LYMPH) 13.0 % 23-55 L REACTIVE LYMPH (test code = RELYMPH) 2.0 % MONOCYTE (test code = MON) 4.0 % 0-10 N EOSINOPHIL (test code = EOS) 1.0 % 0.0-4.0 N MYELOCYTE (test code = MYELO) 4.0 % 0.0-0.0 H PROMYELOCYTE (test code = PROM) 1.0 % 0-0 H NUCLEATED RED BLOOD CELL (test code = NRBC) 7.0 % POLYCHROMASIA (test code = POLC) 1+ POIKILOCYTOSIS (test code = POIK) 1+ ANISOCYTOSIS (test code = ANISO) 1+ MICROCYTOSIS (test code = MICR) 1+ OVALOCYTES (test code = OVAL) FEW PLATELET ESTIMATE (test code = PLTEST) 24-30 THOUSAND ADEQUATE PLATELET MORPHOLOGY (test code = PLTMORPH) GIANT PLATELETS - XR CHEST 1 [id number] 11:58:00 FAX: Jordy Martinez DO [phone] [place]: St: ADM FAX: Alexsandra Barron MD [phone] FAX: Dwayne Millan [phone] Name: HEIDI STEINER [facility] : 1960 Age/S: 58/F [address] [place] [address] Unit #: [id number] Loc: G.M324 [place] [address] Phys: Alexsandra Barron MD Acct: [id number] Dis Date: Status: ADM IN ONE #: [phone] Exam Date: 12/14/2018 1125 FAX #: [phone] Reason: ETT EXAMS: CPT CODE: [id number] XR CHEST 1 V 52458 Patient: HEIDI STEINER. : 1960; Age: 58 years; Gender: Female. MR: [id number]. Ordering physician: Alexsandra Barron MD. PORTABLE C [...] partially visualized upper abdomen is unremarkable. SL: [id number] at 1158 Reported and signed by: Jackson Castaneda M.D. CC: Jordy Gambino DO; Alexsandra Barron MD; Joycelyn schneider MD Technologist: RT Suman(Eduarda) Trnscrd D ate/Time/By: 12/14/2018 (9333) : By: [email or web address] Orig Print D/T: S: 10/2018 (2066) PAGE 1 Signed Repor t PROTHROMBIN [id number] 11:33:00* Test Item Value Reference Range Interpretation Comments PROTHROMBIN TIME PATIENT (test code = PTP) 17.6 SECONDS 9.3-12.9 H INTERNATIONAL NORMAL RATIO (test code = INR) 1.5 0.8-1.2 H TARGET INR BY INDICATION Indication INR1. Prophylaxis [...] Infarction (to prevent recurrent infarct). THROMBOPLASTIN TIME [id number] 11:33:00* Test Item Value Reference Range Interpretation Comments THROMBOPLASTIN TIME PARTIAL (test code = PTT) 40.9 Seconds 25.0-39. 5 H Therapeutic Range: 61.8-83.8 Sec Effective 11/13/2013 [id number] 11:33:00* Test Item Value Reference Range Interpretation Comments FIBRINOGEN (test code = FIB) 274 MG/DL 160-450 Excess administration of anticoagulants and/or FibrinDegradation Products may affect Fibrinogen value. - US ABDOMEN [id number] 11:32:00 Name: HEIDI STEINER [facility] [place] : 1960 Age/S: 58 / F [address] [place] [address] Unit #: [id number] Loc: [place] [address] Phys: Salud Pavon MD Acct: [id number] Dis Date: Status: ADM IN PHONE #: [phone] Exam Date: 12/14/2018 1128 FAX #: [phone] Reason: FAST EXAM, CONCERN FOR INTRA-ABDOMINAL BLEED EXAMS: CPT CODE: [id number] US ABDOMEN LTD [id number] EXAM: US ABDOMEN COMPLETE DATE: 12/14/2018 10:51 [...] seen which may represent hemorrhagic products. SL: [id number] at 1132 Reported and signed by: Madelyn Christine D.O. CC: Salud Pavon MD; Jordy Gambino DO; Joycelyn Person MD Technologist: Evie Parra Trnmnb Date/Time: 12/14/2018 (1132) [email or web address] Orig Print D/T: S: 12/14/2018 (1139) Probe: PAGE 1 Signed Report SURGICAL [id number] 11:23:00 RUN DATE: 12/14/18 [facility] *LIVE* PAGE 1 RUN TIME: 1123 Specimen Inqui ry RUN USER: INTERFACE PATIENT: HEIDI STEINER ACCT #: [id number] LOC: [facility] U #: [id number] AGE/SX: 58/F ROOM: [facility] RE11/29/18REG DR: Long Person : [birth year] BED: 1 DIS: STATUS: ADM IN TLOC: SPEC #: [id number] RECD: 12/12/18 STATUS: SIVAN REQ #: [id number] TH[place]ON: 12/12/[address]: Long Person MD ENTERED: 12/13/18 SP TYPE: SURG SPEC OTHR DR: Shakila Mayorga i, MD, Jeffrey B MD Jogi, Vikas MD Kirkwood, John D DO Koons JR,Terrence Alejandre,Kleber Bianhci MD, MD, Terri B MDORDERED: GM LEVEL 4 CODES: [id number] - SOFT TISSUES, [place]: [place] [address] [place], [place] [id number] Jordan sEparza MD 3023 [facility] [address] [place] [address] Naif Alex MD [address] [place] [address] Jordy Gambino DO 4009 [facility] [address] [place] [address] Terrence Bourgeois JR, MD [address] [address] Dre Alejandre MD [address] [place] [address] CONTINUED ON NEXT PAGE ----- -------RUN DATE: 12/14/18 [facility] *LIVE* PAGE 2 RUN TIME: 1123 Specimen Inquiry RUN USER: INTERFACE SPEC #: [id number] PATIENT: HEIDI STEINER #[id number] (Continued) COPIES TO: (Continued) Kleber Marquez MD [address] [place] [address] [place] [address] Jami Blas MD [address] [place] [address] Joycelyn Person MD [address] [facility] [address] [place] [id number] [email or web address] PROCEDURES: GM LEVEL 4 (Incomplete) TISSUES: 1. [...] MD 1123 END OF REPORT CBC W/AUTO [id number] 09:48:00* Test Item Value Reference Range Interpretation Comments WHITE BLOOD CELL (test code = WBC) 2.77 x10 3/uL 4.5-11.0 L RED BLOOD CELL (test code = RBC) 1.48 x10 6/uL 3.54-5.02 L HEMOGLOBIN (test code = HGB) 4.5 g/dL 11.0-15.0 LL HEMATOCRIT (test code = HCT) 13.3 % 33.0-45.0 L MEAN CELL VOLUME (test code = MCV) 89.9 fL 81.0-99.0 N MEAN CELL HGB (test code = MCH) 30.4 pg 27.0-33.0 N MEAN CELL HGB CONCETRATION (test code = MCHC) 33.8 g/dL 33.0-37. 0 N RED CELL DISTRIBUTION WIDTH CV (test code = RDW) 15.3 % 11.5- 14.5 H RED CELL DISTRIBUTION WIDTH SD (test code = RDW-SD) 50.3 fL 37 .0-54.0 N PLATELET COUNT (test code = PLT) 8 x10 3/uL 150-400 LL IMMATURE PLATELET FRACTION (test code = IPF) 16.3 % 0.9-11.2 H MEAN PLATELET VOLUME (test code = MPV) 13.1 fL 7.0-9.0 H MANUAL DIFF REQUIRED (test code = MDIFF) YES PATHOLOGISTS [id number] 09:48:00* Test Item Value Reference Range Interpretation Comments PATHOLOGISTS FINDINGS (test code = PATH FIND) WBC [id number] 09:48:00* Test Item Value Reference Range Interpretation Comments SEGMENTED NEUTROPHILS (test code = SEG) 75.0 % 37-69 H LYMPHOCYTE (test code = LYMPH) 13.0 % 23-55 L REACTIVE LYMPH (test code = RELYMPH) 2.0 % MONOCYTE (test code = MON) 4.0 % 0-10 N EOSINOPHIL (test code = EOS) 1.0 % 0.0-4.0 N MYELOCYTE (test code = MYELO) 4.0 % 0.0-0.0 H PROMYELOCYTE (test code = PROM) 1.0 % 0-0 H NUCLEATED RED BLOOD CELL (test code = NRBC) 7.0 % POLYCHROMASIA (test code = POLC) 1+ POIKILOCYTOSIS (test code = POIK) 1+ ANISOCYTOSIS (test code = ANISO) 1+ MICROCYTOSIS (test code = MICR) 1+ OVALOCYTES (test code = OVAL) FEW PLATELET ESTIMATE (test code = PLTEST) 24-30 THOUSAND ADEQUATE PLATELET MORPHOLOGY (test code = PLTMORPH) GIANT PLATELETS CBC W/AUTO [id number] 09:47:00* Test Item Value Reference Range Interpretation Comments WHITE BLOOD CELL (test code = WBC) 2.77 x10 3/uL 4.5-11.0 L RED BLOOD CELL (test code = RBC) 1.48 x10 6/uL 3.54-5.02 L HEMOGLOBIN (test code = HGB) 4.5 g/dL 11.0-15.0 LL HEMATOCRIT (test code = HCT) 13.3 % 33.0-45.0 L MEAN CELL VOLUME (test code = MCV) 89.9 fL 81.0-99.0 N MEAN CELL HGB (test code = MCH) 30.4 pg 27.0-33.0 N MEAN CELL HGB CONCETRATION (test code = MCHC) 33.8 g/dL 33.0-37. 0 N RED CELL DISTRIBUTION WIDTH CV (test code = RDW) 15.3 % 11.5- 14.5 H RED CELL DISTRIBUTION WIDTH SD (test code = RDW-SD) 50.3 fL 37 .0-54.0 N PLATELET COUNT (test code = PLT) 8 x10 3/uL 150-400 LL IMMATURE PLATELET FRACTION (test code = IPF) 16.3 % 0.9-11.2 H MEAN PLATELET VOLUME (test code = MPV) 13.1 fL 7.0-9.0 H MANUAL DIFF REQUIRED (test code = MDIFF) YES PATHOLOGISTS [id number] 09:47:00* Test Item Value Reference Range Interpretation Comments PATHOLOGISTS FINDINGS (test code = PATH FIND) WBC [id number] 09:47:00* Test Item Value Reference Range Interpretation Comments ANISOCYTOSIS (test code = ANISO) PLATELET ESTIMATE (test code = PLTEST) THOUSAND ADEQUATE CBC W/AUTO [id number] 09:47:00* Test Item Value Reference Range Interpretation Comments WHITE BLOOD CELL (test code = WBC) 2.77 x10 3/uL 4.5-11.0 L RED BLOOD CELL (test code = RBC) 1.48 x10 6/uL 3.54-5.02 L HEMOGLOBIN (test code = HGB) 4.5 g/dL 11.0-15.0 LL HEMATOCRIT (test code = HCT) 13.3 % 33.0-45.0 L MEAN CELL VOLUME (test code = MCV) 89.9 fL 81.0-99.0 N MEAN CELL HGB (test code = MCH) 30.4 pg 27.0-33.0 N MEAN CELL HGB CONCETRATION (test code = MCHC) 33.8 g/dL 33.0-37. 0 N RED CELL DISTRIBUTION WIDTH CV (test code = RDW) 15.3 % 11.5- 14.5 H RED CELL DISTRIBUTION WIDTH SD (test code = RDW-SD) 50.3 fL 37 .0-54.0 N PLATELET COUNT (test code = PLT) 8 x10 3/uL 150-400 LL IMMATURE PLATELET FRACTION (test code = IPF) 16.3 % 0.9-11.2 H MEAN PLATELET VOLUME (test code = MPV) 13.1 fL 7.0-9.0 H MANUAL DIFF REQUIRED (test code = MDIFF) YES WBC [id number] 09:47:00* Test Item Value Reference Range Interpretation Comments ANISOCYTOSIS (test code = ANISO) PLATELET ESTIMATE (test code = PLTEST) THOUSAND ADEQUATE CBC W/AUTO [id number] 09:20:00* Test Item Value Reference Range Interpretation Comments WHITE BLOOD CELL (test code = WBC) 2.77 x10 3/uL 4.5-11.0 L RED BLOOD CELL (test code = RBC) 1.48 x10 6/uL 3.54-5.02 L HEMOGLOBIN (test code = HGB) 4.5 g/dL 11.0-15.0 LL HEMATOCRIT (test code = HCT) 13.3 % 33.0-45.0 L MEAN CELL VOLUME (test code = MCV) 89.9 fL 81.0-99.0 N MEAN CELL HGB (test code = MCH) 30.4 pg 27.0-33.0 N MEAN CELL HGB CONCETRATION (test code = MCHC) 33.8 g/dL 33.0-37. 0 N RED CELL DISTRIBUTION WIDTH CV (test code = RDW) 15.3 % 11.5- 14.5 H RED CELL DISTRIBUTION WIDTH SD (test code = RDW-SD) 50.3 fL 37 .0-54.0 N PLATELET COUNT (test code = PLT) 8 x10 3/uL 150-400 LL IMMATURE PLATELET FRACTION (test code = IPF) 16.3 % 0.9-11.2 H MEAN PLATELET VOLUME (test code = MPV) 13.1 fL 7.0-9.0 H LYMPHOCYTE % (test code = LY%) % 14.0-32.0 MANUAL DIFF REQUIRED (test code = MDIFF) PLT [id number] 09:20:00* Test Item Value Reference Range Interpretation Comments PLATELET ESTIMATE (test code = PLTEST) THOUSAND ADEQUATE CBC W/AUTO [id number] 09:20:00* Test Item Value Reference Range Interpretation Comments WHITE BLOOD CELL (test code = WBC) 2.77 x10 3/uL 4.5-11.0 L RED BLOOD CELL (test code = RBC) 1.48 x10 6/uL 3.54-5.02 L HEMOGLOBIN (test code = HGB) 4.5 g/dL 11.0-15.0 LL HEMATOCRIT (test code = HCT) 13.3 % 33.0-45.0 L MEAN CELL VOLUME (test code = MCV) 89.9 fL 81.0-99.0 N MEAN CELL HGB (test code = MCH) 30.4 pg 27.0-33.0 N MEAN CELL HGB CONCETRATION (test code = MCHC) 33.8 g/dL 33.0-37. 0 N RED CELL DISTRIBUTION WIDTH CV (test code = RDW) 15.3 % 11.5- 14.5 H RED CELL DISTRIBUTION WIDTH SD (test code = RDW-SD) 50.3 fL 37 .0-54.0 N PLATELET COUNT (test code = PLT) 8 x10 3/uL 150-400 LL IMMATURE PLATELET FRACTION (test code = IPF) 16.3 % 0.9-11.2 H MEAN PLATELET VOLUME (test code = MPV) 13.1 fL 7.0-9.0 H LYMPHOCYTE % (test code = LY%) % 14.0-32.0 MANUAL DIFF REQUIRED (test code = MDIFF) PLT [id number] 09:20:00* Test Item Value Reference Range Interpretation Comments PLATELET ESTIMATE (test code = PLTEST) THOUSAND ADEQUATE - XR ABDOMEN 1V (KUB)2018-12-14 08:46:00 FAX: Salud Pavon MD [place]: St: [facility] FAX: Jordy Martinez DO [phone] FAX: Dwayne Millan [phone] Name: HEIDI STEINER [facility] [place] : 1960 Age/S: 58/F [address] [place] [address] Unit #: [id number] Loc: AlexM324 [place] [address] Phys: Salud Pavon MD Acct: [id number] Dis Date: Status: ADM IN ONE #: [phone] Exam Date: 12/14/2018 0839 FAX #: [phone] Reason: abdominal distension EXAMS: CPT CODE: [id number] XR ABDOMEN 1V (KUB) [id number] EXAM: XR ABDOM EN 1 VIEW DATE: [...] abnormality. IMPRESSION: Nonspecific bowel gas pattern. SL: [id number] at 0846 Reported and signed by: Madelyn Christine D.O. CC: Salud Pavon MD; Jordy Gambino DO; Joycelyn Person MD Technologist: RT Suman(Eduarda) Trnscrd Date/Time/By: 12/14/2018 (0846) : By: [email or web address] Orig Print D/T: S: 12/14/2018 (8874) PAGE 1 Signed Report COMPREHENSIVE METABOLIC [id number] 07:30:00* Test Item Value Reference Range Interpretation Comments SODIUM (test code = NA) 140 mEq/L 134-147 N POTASSIUM (test code = K) 3.1 mEq/L 3.4-5.0 L CHLORIDE (test code = CL) 107 mEq/L 100-108 N CARBON DIOXIDE (test code = CO2) 27 mEq/L 21-33 N ANION GAP (test code = GAP) 9 0-20 N GLUCOSE (test code = GLU) 97 mg/dL 70-110 BLOOD UREA NITROGEN (test code = BUN) 20 mg/dL 7-18 H GLOMERULAR FILTRATION RATE (test code = GFR) 56.6 80-90 L Units of measure = ml/min/1.73 m2 CREATININE (test code = CREAT) 1.0 mg/dL 0.6-1.3 N TOTAL PROTEIN (test code = PROT) 3.9 g/dL 6.4-8.2 L ALBUMIN (test code = ALB) 2.60 g/dL 3.4-5.0 L CALCIUM (test code = CA) 7.2 mg/dL 8.0-10.5 L BILIRUBIN TOTAL (test code = BILT) 3.90 mg/dL 0.0-1.0 H SGOT/AST (test code = AST) 71 IUnit/L 15-37 H SGPT/ALT (test code = ALT) 32 IUnit/L 15-65 ALKALINE PHOSPHATASE TOTAL (test code = ALKP) 49 IUnit/L 20-125 N [id number] 06:49:00* Test Item Value Reference Range Interpretation Comments GLUBED (test code = GLUBED) 93 MG/DL 70-110 N Performed by certified threader operator at [facility] HGB [id number] 21:11:00* Test Item Value Reference Range Interpretation Comments HEMOGLOBIN (test code = HGB) 5.7 g/dL 11.0-15.0 LL HEMATOCRIT (test code = HCT) 17.1 % 33.0-45.0 L HGB [id number] 13:28:00* Test Item Value Reference Range Interpretation Comments HEMOGLOBIN (test code = HGB) 5.4 g/dL 11.0-15.0 LL HEMATOCRIT (test code = HCT) 15.7 % 33.0-45.0 L PROTHROMBIN [id number] 09:48:00* Test Item Value Reference Range Interpretation Comments PROTHROMBIN TIME PATIENT (test code = PTP) 19.2 SECONDS 9.3-12.9 H INTERNATIONAL NORMAL RATIO (test code = INR) 1.7 0.8-1.2 H TARGET INR BY INDICATION Indication INR1. Prophylaxis [...] Infarction (to prevent recurrent infarct). THROMBOPLASTIN TIME [id number] 09:48:00* Test Item Value Reference Range Interpretation Comments THROMBOPLASTIN TIME PARTIAL (test code = PTT) 38.1 Seconds 25.0-39. 5 Therapeutic Range: 61.8-83.8 Sec Effective 11/13/2013 [id number] 09:48:00* Test Item Value Reference Range Interpretation Comments FIBRINOGEN (test code = FIB) 141 MG/DL 160-450 L Excess administration of anticoagulants and/or FibrinDegradation Products may affect Fibrinogen value. CBC W/AUTO [id number] 08:38:00* Test Item Value Reference Range Interpretation Comments WHITE BLOOD CELL (test code = WBC) 5.54 x10 3/uL 4.5-11.0 RED BLOOD CELL (test code = RBC) 2.67 x10 6/uL 3.54-5.02 L HEMOGLOBIN (test code = HGB) 8.1 g/dL 11.0-15.0 L HEMATOCRIT (test code = HCT) 23.3 % 33.0-45.0 L MEAN CELL VOLUME (test code = MCV) 87.3 fL 81.0-99.0 MEAN CELL HGB (test code = MCH) 30.3 pg 27.0-33.0 N MEAN CELL HGB CONCETRATION (test code = MCHC) 34.8 g/dL 33.0-37. 0 N RED CELL DISTRIBUTION WIDTH CV (test code = RDW) 15.2 % 11.5- 14.5 H RED CELL DISTRIBUTION WIDTH SD (test code = RDW-SD) 47.9 fL 37 .0-54.0 N PLATELET COUNT (test code = PLT) 62 x10 3/uL 150-400 L IMMATURE PLATELET FRACTION (test code = IPF) 7.0 % 0.9-11.2 N MEAN PLATELET VOLUME (test code = MPV) 11.9 fL 7.0-9.0 H MANUAL DIFF REQUIRED (test code = MDIFF) YES WBC [id number] 08:38:00* Test Item Value Reference Range Interpretation Comments SEGMENTED NEUTROPHILS (test code = SEG) 89.9 % 37-69 H LYMPHOCYTE (test code = LYMPH) 6.4 % 23-55 L MONOCYTE (test code = MON) 2.8 % 0-10 N METAMYELOCYTE (test code = META) 0.9 % 0.0-0.0 H NUCLEATED RED BLOOD CELL (test code = NRBC) 14.7 % POIKILOCYTOSIS (test code = POIK) 1+ ANISOCYTOSIS (test code = ANISO) 2+ OVALOCYTES (test code = OVAL) 1+ PLATELET ESTIMATE (test code = PLTEST) 52-65 THOUSAND ADEQUATE PLATELET MORPHOLOGY (test code = PLTMORPH) GIANT PLATELETS FEW CBC W/AUTO [id number] 08:31:00* Test Item Value Reference Range Interpretation Comments WHITE BLOOD CELL (test code = WBC) 5.54 x10 3/uL 4.5-11.0 RED BLOOD CELL (test code = RBC) 2.67 x10 6/uL 3.54-5.02 L HEMOGLOBIN (test code = HGB) 8.1 g/dL 11.0-15.0 L HEMATOCRIT (test code = HCT) 23.3 % 33.0-45.0 L MEAN CELL VOLUME (test code = MCV) 87.3 fL 81.0-99.0 MEAN CELL HGB (test code = MCH) 30.3 pg 27.0-33.0 N MEAN CELL HGB CONCETRATION (test code = MCHC) 34.8 g/dL 33.0-37. 0 N RED CELL DISTRIBUTION WIDTH CV (test code = RDW) 15.2 % 11.5- 14.5 H RED CELL DISTRIBUTION WIDTH SD (test code = RDW-SD) 47.9 fL 37 .0-54.0 N PLATELET COUNT (test code = PLT) 62 x10 3/uL 150-400 L IMMATURE PLATELET FRACTION (test code = IPF) 7.0 % 0.9-11.2 N MEAN PLATELET VOLUME (test code = MPV) 11.9 fL 7.0-9.0 H MANUAL DIFF REQUIRED (test code = MDIFF) YES WBC [id number] 08:31:00* Test Item Value Reference Range Interpretation Comments ANISOCYTOSIS (test code = ANISO) PLATELET ESTIMATE (test code = PLTEST) THOUSAND ADEQUATE CBC W/AUTO [id number] 08:31:00* Test Item Value Reference Range Interpretation Comments WHITE BLOOD CELL (test code = WBC) 5.54 x10 3/uL 4.5-11.0 RED BLOOD CELL (test code = RBC) 2.67 x10 6/uL 3.54-5.02 L HEMOGLOBIN (test code = HGB) 8.1 g/dL 11.0-15.0 L HEMATOCRIT (test code = HCT) 23.3 % 33.0-45.0 L MEAN CELL VOLUME (test code = MCV) 87.3 fL 81.0-99.0 MEAN CELL HGB (test code = MCH) 30.3 pg 27.0-33.0 N MEAN CELL HGB CONCETRATION (test code = MCHC) 34.8 g/dL 33.0-37. 0 N RED CELL DISTRIBUTION WIDTH CV (test code = RDW) 15.2 % 11.5- 14.5 H RED CELL DISTRIBUTION WIDTH SD (test code = RDW-SD) 47.9 fL 37 .0-54.0 N PLATELET COUNT (test code = PLT) 62 x10 3/uL 150-400 L IMMATURE PLATELET FRACTION (test code = IPF) 7.0 % 0.9-11.2 N MEAN PLATELET VOLUME (test code = MPV) 11.9 fL 7.0-9.0 H MANUAL DIFF REQUIRED (test code = MDIFF) YES WBC [id number] 08:31:00* Test Item Value Reference Range Interpretation Comments ANISOCYTOSIS (test code = ANISO) PLATELET ESTIMATE (test code = PLTEST) THOUSAND ADEQUATE - XR CHEST 1 [id number] 07:26:00 FAX: Jordy Martinez DO [phone] [place]: St: ADM FAX: Alexsandra Barron MD [phone] FAX: Dwayne Millan [phone] Name: HEIDI STEINER [facility] [place] : 1960 Age/S: 58/F [address] [place] [address] Unit #: [id number] Loc: G.M324 [place] [address] Phys: Alexsandra Barron MD Acct: [id number] Dis Date: Status: ADM IN PH ONE #: [phone] Exam Date: 12/13/2018 0536 FAX #: [phone] Reason: ETT EXAMS: CPT CODE: [id number] XR CHEST 1 V 02243 CHEST, SINGLE VIEW HISTORY: Intubated Comparison made [...] Otherwise adequate support line position. SL:01 at 0723 Reported and signed by: Yosi Gutierrez M.D. CC: Melo Gambino DO; Alexsandra Barron MD; Joycelyn Person MD Technologist: Laura liu RT(R); RT Tamika(R) Trnmnrd Date/Time/By: 12/13/2018 (05 10) : By: Fernando Orig Print D/T: S: 12/13/2018 (7352) PAGE 1 Signed Report COMPREHENSIVE METABOLIC [id number] 07:15:00* Test Item Value Reference Range Interpretation Comments SODIUM (test code = NA) 139 mEq/L 134-147 N POTASSIUM (test code = K) 3.6 mEq/L 3.4-5.0 N CHLORIDE (test code = CL) 107 mEq/L 100-108 N CARBON DIOXIDE (test code = CO2) 24 mEq/L 21-33 ANION GAP (test code = GAP) 12 0-20 N GLUCOSE (test code = GLU) 133 mg/dL 70-110 H BLOOD UREA NITROGEN (test code = BUN) 19 mg/dL 7-18 H GLOMERULAR FILTRATION RATE (test code = GFR) 63.9 80-90 L Units of measure = ml/min/1.73 m2 CREATININE (test code = CREAT) 0.9 mg/dL 0.6-1.3 N TOTAL PROTEIN (test code = PROT) 3.8 g/dL 6.4-8.2 L ALBUMIN (test code = ALB) 2.20 g/dL 3.4-5.0 L CALCIUM (test code = CA) 7.1 mg/dL 8.0-10.5 L BILIRUBIN TOTAL (test code = BILT) 3.90 mg/dL 0.0-1.0 H SGOT/AST (test code = AST) 283 IUnit/L 15-37 H SGPT/ALT (test code = ALT) 75 IUnit/L 15-65 H ALKALINE PHOSPHATASE TOTAL (test code = ALKP) 61 IUnit/L 20-125 CBC W/AUTO [id number] 07:08:00* Test Item Value Reference Range Interpretation Comments WHITE BLOOD CELL (test code = WBC) 5.54 x10 3/uL 4.5-11.0 RED BLOOD CELL (test code = RBC) 2.67 x10 6/uL 3.54-5.02 L HEMOGLOBIN (test code = HGB) 8.1 g/dL 11.0-15.0 L HEMATOCRIT (test code = HCT) 23.3 % 33.0-45.0 L MEAN CELL VOLUME (test code = MCV) 87.3 fL 81.0-99.0 MEAN CELL HGB (test code = MCH) 30.3 pg 27.0-33.0 N MEAN CELL HGB CONCETRATION (test code = MCHC) 34.8 g/dL 33.0-37. 0 N RED CELL DISTRIBUTION WIDTH CV (test code = RDW) 15.2 % 11.5- 14.5 H RED CELL DISTRIBUTION WIDTH SD (test code = RDW-SD) 47.9 fL 37 .0-54.0 N PLATELET COUNT (test code = PLT) 62 x10 3/uL 150-400 L IMMATURE PLATELET FRACTION (test code = IPF) 7.0 % 0.9-11.2 N MEAN PLATELET VOLUME (test code = MPV) 11.9 fL 7.0-9.0 H LYMPHOCYTE % (test code = LY%) % 14.0-32.0 MANUAL DIFF REQUIRED (test code = MDIFF) [id number] 06:27:00* Test Item Value Reference Range Interpretation Comments GLUBED (test code = GLUBED) 127 MG/DL 70-110 H Performed by certified threader operator at [facility] ARTERIAL BLOOD [id number] 06:02:00* Test Item Value Reference Range Interpretation Comments ARTERIAL BLOOD GAS PH (test code = PHA) 7.409 7.35-7.45 N ARTERIAL BLOOD GAS PCO2 (test code = PCO2A) 38.0 mmHg 35-45 N ARTERIAL BLOOD GAS PO2 (test code = PO2A) 159 mmHg 80-100 H BICARBONATE TOTAL HCO3 (test code = HCO3) 24.2 mmol/L 22.0-26.0 N BASE EXCESS (test code = DIYA) -1.0 mmol/L -4-4 N ABG O2 SATURATION (test code = SATA) 99 % 90-100 N FIO2 (test code = FIO2A) 40 % ABG DELIVERY (test code = GLADYS) Vent ABG VENT MODE (test code = MODEA) AC v con ABG VENT RESP RATE (test code = RRA) 12 /MIN ABG TIDAL VOLUME (test code = TVA) 450 ml ABG PEEP (test code = PEEPA) 5 cmH2O Performed by certified threader operator at [facility] ABG TEMPERATURE (test code = TEMPA) 97.8 F ABG SITE (test code = SITEA) Art line PREDICTED AA GRADIENT (test code = AP) 62 PREDICTED PO2 (test code = OP) 177 a/A RATIO (test code = RATIO) 0.66 TCO2 ARTERIAL (test code = TCO2A) 25 A-A GRADIENT (test code = AAGRADE) 81 HGB [id number] 02:20:00* Test Item Value Reference Range Interpretation Comments HEMOGLOBIN (test code = HGB) 4.6 g/dL 11.0-15.0 LL HEMATOCRIT (test code = HCT) 13.6 % 33.0-45.0 L [id number] 23:43:00* Test Item Value Reference Range Interpretation Comments GLUBED (test code = GLUBED) 119 MG/DL 70-110 H Performed by certified threader operator at [facility] HEPARIN INDUCED [id number] 16:29:00* Test Item Value Reference Range Interpretation Comments HEPARIN INDUCED THROMBOCYTOPEN (test code = HITAB) NEGATIVE () The HIT (PF4) test is [...] as the 4T score and the 2013 [place] [employer] guidelines. NEGATIVE results indicate the [...] heparin for at least4 hours. THROMBOPLASTIN TIME [id number] 13:49:00* Test Item Value Reference Range Interpretation Comments THROMBOPLASTIN TIME PARTIAL (test code = PTT) 51.4 Seconds 25.0-39. 5 H Therapeutic Range: 61.8-83.8 Sec Effective 11/13/2013 [id number] 13:49:00* Test Item Value Reference Range Interpretation Comments FIBRINOGEN (test code = FIB) 124 MG/DL 160-450 L Excess administration of anticoagulants and/or FibrinDegradation Products may affect Fibrinogen value. - XR ABDOMEN 1V (KUB)2018-12-12 13:06:00 FAX: Jordy Martinez DO [phone] [place]: St: ADM FAX: Alexsandra Barron MD [phone] FAX: Dwayne Millan [phone] Name: HEIDI STEINER [facility] : 1960 Age/S: 58/F [address] [place] [address] Unit #: [id number] Loc: .[address] [address] Phys: Alexsandra Barron MD Acct: [id number] Dis Date: Status: ADM IN ONE #: [phone] Exam Date: 12/12/2018 1220 FAX #: [phone] Reason: NGT Placement EXAMS: CPT CODE: [id number] XR ABDOMEN 1V (KU) 31209 ABDOMEN PORTAB LE AP VIEW, 12/12/2018 COMPARISON: [...] Butch De La Torre M.D. CC: Jordy Gambino DO; Alexsandra Barron MD; Joycelyn Person MD Technologist: Geovanna Leal, RT(R) Trnmnrd Date/Time/By: 12/12/2018 (3156) : By: [email or web address] Orig Print D/T: S: 12/12/2018 (8445) PAGE 1 Signed Report CBC W/AUTO [id number] 12:52:00* Test Item Value Reference Range Interpretation Comments WHITE BLOOD CELL (test code = WBC) 13.24 x10 3/uL 4.5-11.0 H RED BLOOD CELL (test code = RBC) 3.61 x10 6/uL 3.54-5.02 N HEMOGLOBIN (test code = HGB) 10.8 g/dL 11.0-15.0 L HEMATOCRIT (test code = HCT) 34.1 % 33.0-45.0 MEAN CELL VOLUME (test code = MCV) 94.5 fL 81.0-99.0 MEAN CELL HGB (test code = MCH) 29.9 pg 27.0-33.0 N MEAN CELL HGB CONCETRATION (test code = MCHC) 31.7 g/dL 33.0-37. 0 L RED CELL DISTRIBUTION WIDTH CV (test code = RDW) 17.3 % 11.5- 14.5 H RED CELL DISTRIBUTION WIDTH SD (test code = RDW-SD) 55.8 fL 37 .0-54.0 H PLATELET COUNT (test code = PLT) 53 x10 3/uL 150-400 L IMMATURE PLATELET FRACTION (test code = IPF) 19.9 % 0.9-11.2 H MEAN PLATELET VOLUME (test code = MPV) 12.7 fL 7.0-9.0 H MANUAL DIFF REQUIRED (test code = MDIFF) YES WBC [id number] 12:52:00* Test Item Value Reference Range Interpretation Comments SEGMENTED NEUTROPHILS (test code = SEG) 78.2 % 37-69 H LYMPHOCYTE (test code = LYMPH) 10.9 % 23-55 L MONOCYTE (test code = MON) 9.1 % 0-10 N PROMYELOCYTE (test code = PROM) 1.8 % 0-0 H NUCLEATED RED BLOOD CELL (test code = NRBC) 21.8 % POLYCHROMASIA (test code = POLC) FEW POIKILOCYTOSIS (test code = POIK) SLIGHT ANISOCYTOSIS (test code = ANISO) 1+ MICROCYTOSIS (test code = MICR) FEW TEAR DROP CELLS (test code = TEAR) FEW PLATELET ESTIMATE (test code = PLTEST) 60-75 THOUSAND ADEQUATE PLATELET MORPHOLOGY (test code = PLTMORPH) LARGE PLATELETS FEW GIANT PLTS - XR CHEST 1 [id number] 12:40:00 FAX: Talat GambinoJordy Anjel BAUER [phone] [place]: St: ADM FAX: Alexsandra Barrno MD [phone] FAX: Talat XiaoDanisha wassermanallison [phone] Name: HEIDI STEINER [facility] : 1960 Age/S: 58/F [address] [place] [address] Unit #: [id number] Loc: G.24 [place] [address] Phys: Alexsandra Barron MD Acct: [id number] Dis Date: Status: ADM IN ONE #: [phone] Exam Date: 12/12/2018 1223 FAX #: [phone] Reason: Post intubation EXAMS: CPT CODE: [id number] XR CHEST 1 V [id number] EXAM: XR CHEST 1 VIEW DATE: 12/12/2018 12:05 PM : 1960; Age: 58 years y/o Female INDICATION: Post intubation COMPARISON: 2018 TECHNIQUE: AP chest. FINDINGS/ IMPRESSION: Lines, [...] with mild left basilar airspace disease. SL: [id number] at 1240 Reported and signed by: Madelyn Christine D.O. CC: Jordy Gambino DO; Alexsandra Barron MD; Joycelyn Person MD Technologist: RT Alice(Eduarda) Trnscrd Date/Time/By: 12/12/2018 (2147) : By: [email or web address] Orig Print D/T: S: 12/12/2018 (2855) PAGE 1 Signed Report ARTERIAL BLOOD GAS 2018-12-12 12:39:00* Test Item Value Reference Range Interpretation Comments ARTERIAL BLOOD GAS PH (test code = PHA) 7.115 7.35-7.45 L L ARTERIAL BLOOD GAS PCO2 (test code = PCO2A) 16.6 mmHg 35-45 LL ARTERIAL BLOOD GAS PO2 (test code = PO2A) 555 mmHg 80-100 H BICARBONATE TOTAL HCO3 (test code = HCO3) 5.3 mmol/L 22.0-26.0 L BASE EXCESS (test code = DIYA) -24.0 mmol/L -4-4 L ABG O2 SATURATION (test code = SATA) 100 % 90-100 N FIO2 (test code = FIO2A) 100 % ABG DELIVERY (test code = GLADYS) Vent ABG VENT MODE (test code = MODEA) AC v con ABG VENT RESP RATE (test code = RRA) 12 /MIN ABG TIDAL VOLUME (test code = TVA) 450 ml ABG PEEP (test code = PEEPA) 5 cmH2O Performed by certified threader operator at [facility] ABG TEMPERATURE (test code = TEMPA) 98.6 F ABG SITE (test code = SITEA) Art line PREDICTED AA GRADIENT (test code = AP) 180 PREDICTED PO2 (test code = OP) 513 a/A RATIO (test code = RATIO) 0.80 TCO2 ARTERIAL (test code = TCO2A) 6 A-A GRADIENT (test code = AAGRADE) 138 CBC W/AUTO [id number] 12:37:00* Test Item Value Reference Range Interpretation Comments WHITE BLOOD CELL (test code = WBC) 13.24 x10 3/uL 4.5-11.0 H RED BLOOD CELL (test code = RBC) 3.61 x10 6/uL 3.54-5.02 N HEMOGLOBIN (test code = HGB) 10.8 g/dL 11.0-15.0 L HEMATOCRIT (test code = HCT) 34.1 % 33.0-45.0 MEAN CELL VOLUME (test code = MCV) 94.5 fL 81.0-99.0 MEAN CELL HGB (test code = MCH) 29.9 pg 27.0-33.0 N MEAN CELL HGB CONCETRATION (test code = MCHC) 31.7 g/dL 33.0-37. 0 L RED CELL DISTRIBUTION WIDTH CV (test code = RDW) 17.3 % 11.5- 14.5 H RED CELL DISTRIBUTION WIDTH SD (test code = RDW-SD) 55.8 fL 37 .0-54.0 H PLATELET COUNT (test code = PLT) 53 x10 3/uL 150-400 L IMMATURE PLATELET FRACTION (test code = IPF) 19.9 % 0.9-11.2 H MEAN PLATELET VOLUME (test code = MPV) 12.7 fL 7.0-9.0 H MANUAL DIFF REQUIRED (test code = MDIFF) YES WBC [id number] 12:37:00* Test Item Value Reference Range Interpretation Comments ANISOCYTOSIS (test code = ANISO) PLATELET ESTIMATE (test code = PLTEST) THOUSAND ADEQUATE CBC W/AUTO [id number] 12:37:00* Test Item Value Reference Range Interpretation Comments WHITE BLOOD CELL (test code = WBC) 13.24 x10 3/uL 4.5-11.0 H RED BLOOD CELL (test code = RBC) 3.61 x10 6/uL 3.54-5.02 N HEMOGLOBIN (test code = HGB) 10.8 g/dL 11.0-15.0 L HEMATOCRIT (test code = HCT) 34.1 % 33.0-45.0 MEAN CELL VOLUME (test code = MCV) 94.5 fL 81.0-99.0 MEAN CELL HGB (test code = MCH) 29.9 pg 27.0-33.0 N MEAN CELL HGB CONCETRATION (test code = MCHC) 31.7 g/dL 33.0-37. 0 L RED CELL DISTRIBUTION WIDTH CV (test code = RDW) 17.3 % 11.5- 14.5 H RED CELL DISTRIBUTION WIDTH SD (test code = RDW-SD) 55.8 fL 37 .0-54.0 H PLATELET COUNT (test code = PLT) 53 x10 3/uL 150-400 L IMMATURE PLATELET FRACTION (test code = IPF) 19.9 % 0.9-11.2 H MEAN PLATELET VOLUME (test code = MPV) 12.7 fL 7.0-9.0 H MANUAL DIFF REQUIRED (test code = MDIFF) YES WBC [id number] 12:37:00* Test Item Value Reference Range Interpretation Comments ANISOCYTOSIS (test code = ANISO) PLATELET ESTIMATE (test code = PLTEST) THOUSAND ADEQUATE CBC W/AUTO [id number] 12:11:00* Test Item Value Reference Range Interpretation Comments WHITE BLOOD CELL (test code = WBC) 13.24 x10 3/uL 4.5-11.0 H RED BLOOD CELL (test code = RBC) 3.61 x10 6/uL 3.54-5.02 N HEMOGLOBIN (test code = HGB) 10.8 g/dL 11.0-15.0 L HEMATOCRIT (test code = HCT) 34.1 % 33.0-45.0 MEAN CELL VOLUME (test code = MCV) 94.5 fL 81.0-99.0 MEAN CELL HGB (test code = MCH) 29.9 pg 27.0-33.0 N MEAN CELL HGB CONCETRATION (test code = MCHC) 31.7 g/dL 33.0-37. 0 L RED CELL DISTRIBUTION WIDTH CV (test code = RDW) 17.3 % 11.5- 14.5 H RED CELL DISTRIBUTION WIDTH SD (test code = RDW-SD) 55.8 fL 37 .0-54.0 H PLATELET COUNT (test code = PLT) 53 x10 3/uL 150-400 L IMMATURE PLATELET FRACTION (test code = IPF) 19.9 % 0.9-11.2 H MEAN PLATELET VOLUME (test code = MPV) 12.7 fL 7.0-9.0 H LYMPHOCYTE % (test code = LY%) % 14.0-32.0 MANUAL DIFF REQUIRED (test code = MDIFF) BASIC METABOLIC [id number] 09:04:00* Test Item Value Reference Range Interpretation Comments SODIUM (test code = NA) 139 mEq/L 134-147 N POTASSIUM (test code = K) 4.4 mEq/L 3.4-5.0 CHLORIDE (test code = CL) 111 mEq/L 100-108 H CARBON DIOXIDE (test code = CO2) 9 mEq/L 21-33 L ANION GAP (test code = GAP) 23 0-20 H GLUCOSE (test code = GLU) 110 mg/dL 70-110 BLOOD UREA NITROGEN (test code = BUN) 17 mg/dL 7-18 N GLOMERULAR FILTRATION RATE (test code = GFR) 73.2 80-90 L Units of measure = ml/min/1.73 m2 CREATININE (test code = CREAT) 0.8 mg/dL 0.6-1.3 N CALCIUM (test code = CA) 6.7 mg/dL 8.0-10.5 L CBC W/AUTO [id number] 08:43:00* Test Item Value Reference Range Interpretation Comments WHITE BLOOD CELL (test code = WBC) 9.39 x10 3/uL 4.5-11.0 RED BLOOD CELL (test code = RBC) 2.05 x10 6/uL 3.54-5.02 L HEMOGLOBIN (test code = HGB) 6.5 g/dL 11.0-15.0 L HEMATOCRIT (test code = HCT) 20.4 % 33.0-45.0 L MEAN CELL VOLUME (test code = MCV) 99.5 fL 81.0-99.0 H MEAN CELL HGB (test code = MCH) 31.7 pg 27.0-33.0 N MEAN CELL HGB CONCETRATION (test code = MCHC) 31.9 g/dL 33.0-37. 0 L RED CELL DISTRIBUTION WIDTH CV (test code = RDW) 20.3 % 11.5- 14.5 H RED CELL DISTRIBUTION WIDTH SD (test code = RDW-SD) 71.4 fL 37 .0-54.0 H PLATELET COUNT (test code = PLT) 59 x10 3/uL 150-400 L MEAN PLATELET VOLUME (test code = MPV) 12.4 fL 7.0-9.0 H MANUAL DIFF REQUIRED (test code = MDIFF) YES WBC [id number] 08:43:00* Test Item Value Reference Range Interpretation Comments SEGMENTED NEUTROPHILS (test code = SEG) 66 % 37-69 N BAND NEUTROPHIL (test code = BAND) 5.0 % 0.0-10.0 N LYMPHOCYTE (test code = LYMPH) 21 % 23-55 L MONOCYTE (test code = MON) 4 % 0-10 N METAMYELOCYTE (test code = META) 1.0 % 0.0-0.0 H MYELOCYTE (test code = MYELO) 1 % 0.0-0.0 H PROMYELOCYTE (test code = PROM) 2.0 % 0-0 H NUCLEATED RED BLOOD CELL (test code = NRBC) 17 % POLYCHROMASIA (test code = POLC) 1+ POIKILOCYTOSIS (test code = POIK) SLIGHT ANISOCYTOSIS (test code = ANISO) 2+ MICROCYTOSIS (test code = MICR) FEW MACROCYTOSIS (test code = MACR) 1+ OVALOCYTES (test code = OVAL) SLIGHT PLATELET ESTIMATE (test code = PLTEST) 64-80 THOUSAND ADEQUATE PLATELET MORPHOLOGY (test code = PLTMORPH) LARGE PLATELETS FEW GIANT PLTS CBC W/AUTO [id number] 08:23:00* Test Item Value Reference Range Interpretation Comments WHITE BLOOD CELL (test code = WBC) 9.39 x10 3/uL 4.5-11.0 RED BLOOD CELL (test code = RBC) 2.05 x10 6/uL 3.54-5.02 L HEMOGLOBIN (test code = HGB) 6.5 g/dL 11.0-15.0 L HEMATOCRIT (test code = HCT) 20.4 % 33.0-45.0 L MEAN CELL VOLUME (test code = MCV) 99.5 fL 81.0-99.0 H MEAN CELL HGB (test code = MCH) 31.7 pg 27.0-33.0 N MEAN CELL HGB CONCETRATION (test code = MCHC) 31.9 g/dL 33.0-37. 0 L RED CELL DISTRIBUTION WIDTH CV (test code = RDW) 20.3 % 11.5- 14.5 H RED CELL DISTRIBUTION WIDTH SD (test code = RDW-SD) 71.4 fL 37 .0-54.0 H PLATELET COUNT (test code = PLT) 59 x10 3/uL 150-400 L MEAN PLATELET VOLUME (test code = MPV) 12.4 fL 7.0-9.0 H MANUAL DIFF REQUIRED (test code = MDIFF) YES WBC [id number] 08:23:00* Test Item Value Reference Range Interpretation Comments ANISOCYTOSIS (test code = ANISO) PLATELET ESTIMATE (test code = PLTEST) THOUSAND ADEQUATE CBC W/AUTO [id number] 08:23:00* Test Item Value Reference Range Interpretation Comments WHITE BLOOD CELL (test code = WBC) 9.39 x10 3/uL 4.5-11.0 RED BLOOD CELL (test code = RBC) 2.05 x10 6/uL 3.54-5.02 L HEMOGLOBIN (test code = HGB) 6.5 g/dL 11.0-15.0 L HEMATOCRIT (test code = HCT) 20.4 % 33.0-45.0 L MEAN CELL VOLUME (test code = MCV) 99.5 fL 81.0-99.0 H MEAN CELL HGB (test code = MCH) 31.7 pg 27.0-33.0 N MEAN CELL HGB CONCETRATION (test code = MCHC) 31.9 g/dL 33.0-37. 0 L RED CELL DISTRIBUTION WIDTH CV (test code = RDW) 20.3 % 11.5- 14.5 H RED CELL DISTRIBUTION WIDTH SD (test code = RDW-SD) 71.4 fL 37 .0-54.0 H PLATELET COUNT (test code = PLT) 59 x10 3/uL 150-400 L MEAN PLATELET VOLUME (test code = MPV) 12.4 fL 7.0-9.0 H MANUAL DIFF REQUIRED (test code = MDIFF) YES WBC [id number] 08:23:00* Test Item Value Reference Range Interpretation Comments ANISOCYTOSIS (test code = ANISO) PLATELET ESTIMATE (test code = PLTEST) THOUSAND ADEQUATE - DUP VEIN [id number] 07:24:00 Name: HIEDI STEINER [facility] : 1960 Age/S: 58 / F [address] [place] [address] Unit #: [id number] Loc: [place] [address] Phys: Dre Alejandre MD Acct: [id number] Dis Date: Status: ADM IN PHONE #: [phone] Exam Date: 12/12/2018640 FAX #: [phone] Reason: B/L LE ultrasound- +PE, r/o DVT EXAMS: CPT CODE: [id number] DUP VEIN ULICES 10530 PROCEDURE: BILATERAL LOWER EXTREMITY VENOUS ULTRASOUND INDICATION: [...] Berumen RN on 12/12/2018 7:23 AM. SL: ANDREI at 0724 Reported and signed by: Radha Perez M.D. CC: Jordy Gambino DO; Dre Alejandre MD; Joycelyn Person MD Technologist: Marlyn Moreno RDMS(A)(OB) Trnscb Date/Time: 12/12/2018 (723) [email or web address] Orig Print D/T: S: 12/12/2018 (07) Probe: PAGE 1 Signed Report GLUBED 2018-12-12 06:47:00* Test Item Value Reference Range Interpretation Comments GLUBED (test code = GLUBED) 91 MG/DL 70-110 N Performed by certified threader operator at [facility] [id number] 04:33:00* Test Item Value Reference Range Interpretation Comments GLUBED (test code = GLUBED) 64 MG/DL 70-110 L Performed by certified threader operator at [facility] BASIC METABOLIC [id number] 04:19:00* Test Item Value Reference Range Interpretation Comments SODIUM (test code = NA) 138 mEq/L 134-147 N POTASSIUM (test code = K) 5.7 mEq/L 3.4-5.0 H SP ECIMEN 1+ HEMOLYZED.Results known to be adversely affected by hemolysis are: Potassium Magnesium LDH Phosphorus CHLORIDE (test code = CL) 111 mEq/L 100-108 H CARBON DIOXIDE (test code = CO2) 9 mEq/L 21-33 L ANION GAP (test code = GAP) 24 0-20 H GLUCOSE (test code = GLU) 43 mg/dL 70-110 LL BLOOD UREA NITROGEN (test code = BUN) 18 mg/dL 7-18 N GLOMERULAR FILTRATION RATE (test code = GFR) 85.4 80-90 N Units of measure = ml/min/1.73 m2 CREATININE (test code = CREAT) 0.7 mg/dL 0.6-1.3 CALCIUM (test code = CA) 7.1 mg/dL 8.0-10.5 L [id number] 04:19:00* Test Item Value Reference Range Interpretation Comments PHOSPHOROUS (test code = PHOS) 2.4 mg/dL 2.5-4.9 L [id number] 04:19:00* Test Item Value Reference Range Interpretation Comments MAGNESIUM (test code = MAG) 1.70 mg/dL 1.8-2.4 L CALCIUM [id number] 04:19:00* Test Item Value Reference Range Interpretation Comments CALCIUM IONIZED (test code = CONNIE) 1.06 MMOL/L 1.12-1.32 L BASIC METABOLIC [id number] 04:07:00* Test Item Value Reference Range Interpretation Comments SODIUM (test code = NA) mEq/L 134-147 POTASSIUM (test code = K) mEq/L 3.4-5.0 CHLORIDE (test code = CL) mEq/L 100-108 CARBON DIOXIDE (test code = CO2) mEq/L 21-33 ANION GAP (test code = GAP) 0-20 GLUCOSE (test code = GLU) mg/dL 70-110 BLOOD UREA NITROGEN (test code = BUN) mg/dL 7-18 GLOMERULAR FILTRATION RATE (test code = GFR) 80-90 CREATININE (test code = CREAT) mg/dL 0.6-1.3 CALCIUM (test code = CA) mg/dL 8.0-10.5 [id number] 04:07:00* Test Item Value Reference Range Interpretation Comments PHOSPHOROUS (test code = PHOS) mg/dL 2.5-4.9 [id number] 04:07:00* Test Item Value Reference Range Interpretation Comments MAGNESIUM (test code = MAG) mg/dL 1.8-2.4 CALCIUM [id number] 04:07:00* Test Item Value Reference Range Interpretation Comments CALCIUM IONIZED (test code = CONNIE) 1.06 MMOL/L 1.12-1.32 L CBC W/AUTO [id number] 04:04:00* Test Item Value Reference Range Interpretation Comments WHITE BLOOD CELL (test code = WBC) 9.39 x10 3/uL 4.5-11.0 RED BLOOD CELL (test code = RBC) 2.05 x10 6/uL 3.54-5.02 L HEMOGLOBIN (test code = HGB) 6.5 g/dL 11.0-15.0 L HEMATOCRIT (test code = HCT) 20.4 % 33.0-45.0 L MEAN CELL VOLUME (test code = MCV) 99.5 fL 81.0-99.0 H MEAN CELL HGB (test code = MCH) 31.7 pg 27.0-33.0 N MEAN CELL HGB CONCETRATION (test code = MCHC) 31.9 g/dL 33.0-37. 0 L RED CELL DISTRIBUTION WIDTH CV (test code = RDW) 20.3 % 11.5- 14.5 H RED CELL DISTRIBUTION WIDTH SD (test code = RDW-SD) 71.4 fL 37 .0-54.0 H PLATELET COUNT (test code = PLT) 59 x10 3/uL 150-400 L MEAN PLATELET VOLUME (test code = MPV) 12.4 fL 7.0-9.0 H LYMPHOCYTE % (test code = LY%) % 14.0-32.0 MANUAL DIFF REQUIRED (test code = MDIFF) CBC W/AUTO [id number] 23:54:00* Test Item Value Reference Range Interpretation Comments WHITE BLOOD CELL (test code = WBC) 5.84 x10 3/uL 4.5-11.0 N RED BLOOD CELL (test code = RBC) 2.92 x10 6/uL 3.54-5.02 L HEMOGLOBIN (test code = HGB) 9.1 g/dL 11.0-15.0 L HEMATOCRIT (test code = HCT) 27.9 % 33.0-45.0 L MEAN CELL VOLUME (test code = MCV) 95.5 fL 81.0-99.0 MEAN CELL HGB (test code = MCH) 31.2 pg 27.0-33.0 N MEAN CELL HGB CONCETRATION (test code = MCHC) 32.6 g/dL 33.0-37. 0 L RED CELL DISTRIBUTION WIDTH CV (test code = RDW) 18.4 % 11.5- 14.5 H RED CELL DISTRIBUTION WIDTH SD (test code = RDW-SD) 62.4 fL 37 .0-54.0 H PLATELET COUNT (test code = PLT) 73 x10 3/uL 150-400 L IMMATURE PLATELET FRACTION (test code = IPF) 8.3 % 0.9-11.2 N MEAN PLATELET VOLUME (test code = MPV) 12.1 fL 7.0-9.0 H MANUAL DIFF REQUIRED (test code = MDIFF) YES WBC [id number] 23:54:00* Test Item Value Reference Range Interpretation Comments SEGMENTED NEUTROPHILS (test code = SEG) 72.5 % 37-69 H BAND NEUTROPHIL (test code = BAND) 1.8 % 0.0-10.0 N LYMPHOCYTE (test code = LYMPH) 11.0 % 23-55 L MONOCYTE (test code = MON) 11.9 % 0-10 H BASOPHIL (test code = BASO) 1.9 % 0.0-2.0 N PROMYELOCYTE (test code = PROM) 0.9 % 0-0 H NUCLEATED RED BLOOD CELL (test code = NRBC) 5.5 % POLYCHROMASIA (test code = POLC) 1+ POIKILOCYTOSIS (test code = POIK) 3+ ANISOCYTOSIS (test code = ANISO) 1+ MACROCYTOSIS (test code = MACR) 1+ PLATELET ESTIMATE (test code = PLTEST) Decreased THOUSAND ADEQUATE A PLATELET MORPHOLOGY (test code = PLTMORPH) LARGE PLATELETS CBC W/AUTO [id number] 23:38:00* Test Item Value Reference Range Interpretation Comments WHITE BLOOD CELL (test code = WBC) 5.84 x10 3/uL 4.5-11.0 N RED BLOOD CELL (test code = RBC) 2.92 x10 6/uL 3.54-5.02 L HEMOGLOBIN (test code = HGB) 9.1 g/dL 11.0-15.0 L HEMATOCRIT (test code = HCT) 27.9 % 33.0-45.0 L MEAN CELL VOLUME (test code = MCV) 95.5 fL 81.0-99.0 MEAN CELL HGB (test code = MCH) 31.2 pg 27.0-33.0 N MEAN CELL HGB CONCETRATION (test code = MCHC) 32.6 g/dL 33.0-37. 0 L RED CELL DISTRIBUTION WIDTH CV (test code = RDW) 18.4 % 11.5- 14.5 H RED CELL DISTRIBUTION WIDTH SD (test code = RDW-SD) 62.4 fL 37 .0-54.0 H PLATELET COUNT (test code = PLT) 73 x10 3/uL 150-400 L IMMATURE PLATELET FRACTION (test code = IPF) 8.3 % 0.9-11.2 N MEAN PLATELET VOLUME (test code = MPV) 12.1 fL 7.0-9.0 H MANUAL DIFF REQUIRED (test code = MDIFF) YES WBC [id number] 23:38:00* Test Item Value Reference Range Interpretation Comments ANISOCYTOSIS (test code = ANISO) PLATELET ESTIMATE (test code = PLTEST) THOUSAND ADEQUATE CBC W/AUTO [id number] 23:38:00* Test Item Value Reference Range Interpretation Comments WHITE BLOOD CELL (test code = WBC) 5.84 x10 3/uL 4.5-11.0 N RED BLOOD CELL (test code = RBC) 2.92 x10 6/uL 3.54-5.02 L HEMOGLOBIN (test code = HGB) 9.1 g/dL 11.0-15.0 L HEMATOCRIT (test code = HCT) 27.9 % 33.0-45.0 L MEAN CELL VOLUME (test code = MCV) 95.5 fL 81.0-99.0 MEAN CELL HGB (test code = MCH) 31.2 pg 27.0-33.0 N MEAN CELL HGB CONCETRATION (test code = MCHC) 32.6 g/dL 33.0-37. 0 L RED CELL DISTRIBUTION WIDTH CV (test code = RDW) 18.4 % 11.5- 14.5 H RED CELL DISTRIBUTION WIDTH SD (test code = RDW-SD) 62.4 fL 37 .0-54.0 H PLATELET COUNT (test code = PLT) 73 x10 3/uL 150-400 L IMMATURE PLATELET FRACTION (test code = IPF) 8.3 % 0.9-11.2 N MEAN PLATELET VOLUME (test code = MPV) 12.1 fL 7.0-9.0 H MANUAL DIFF REQUIRED (test code = MDIFF) YES WBC [id number] 23:38:00* Test Item Value Reference Range Interpretation Comments ANISOCYTOSIS (test code = ANISO) PLATELET ESTIMATE (test code = PLTEST) THOUSAND ADEQUATE BASIC METABOLIC [id number] 22:26:00* Test Item Value Reference Range Interpretation Comments SODIUM (test code = NA) 138 mEq/L 134-147 N POTASSIUM (test code = K) 4.4 mEq/L 3.4-5.0 N CHLORIDE (test code = CL) 107 mEq/L 100-108 N CARBON DIOXIDE (test code = CO2) 22 mEq/L 21-33 N ANION GAP (test code = GAP) 13 0-20 N GLUCOSE (test code = GLU) 96 mg/dL 70-110 N BLOOD UREA NITROGEN (test code = BUN) 19 mg/dL 7-18 H GLOMERULAR FILTRATION RATE (test code = GFR) 162.8 80-90 H Units of measure = ml/min/1.73 m2 CREATININE (test code = CREAT) 0.4 mg/dL 0.6-1.3 L CALCIUM (test code = CA) 7.4 mg/dL 8.0-10.5 L CBC W/AUTO [id number] 22:17:00* Test Item Value Reference Range Interpretation Comments WHITE BLOOD CELL (test code = WBC) 5.84 x10 3/uL 4.5-11.0 N RED BLOOD CELL (test code = RBC) 2.92 x10 6/uL 3.54-5.02 L HEMOGLOBIN (test code = HGB) 9.1 g/dL 11.0-15.0 L HEMATOCRIT (test code = HCT) 27.9 % 33.0-45.0 L MEAN CELL VOLUME (test code = MCV) 95.5 fL 81.0-99.0 MEAN CELL HGB (test code = MCH) 31.2 pg 27.0-33.0 N MEAN CELL HGB CONCETRATION (test code = MCHC) 32.6 g/dL 33.0-37. 0 L RED CELL DISTRIBUTION WIDTH CV (test code = RDW) 18.4 % 11.5- 14.5 H RED CELL DISTRIBUTION WIDTH SD (test code = RDW-SD) 62.4 fL 37 .0-54.0 H PLATELET COUNT (test code = PLT) 73 x10 3/uL 150-400 L IMMATURE PLATELET FRACTION (test code = IPF) 8.3 % 0.9-11.2 N MEAN PLATELET VOLUME (test code = MPV) 12.1 fL 7.0-9.0 H LYMPHOCYTE % (test code = LY%) % 14.0-32.0 MANUAL DIFF REQUIRED (test code = MDIFF) - XR CHEST 1 [id number] 19:37:00 FAX: Talat WoodImmanuelJordy aguuste [phone] [place]: St: ADM FAX: Marc Goodman [phone] FAX: Talat XiaoDanisha wassermanallison [phone] Name: HEIDI STEINER [facility] : 1960 Age/S: 58/F [address] [place] [address] Unit #: [id number] Loc: [address] [place] [address] Phys: Marc Goodman [facility] Acct: [id number] Dis Date: Status: ADM IN PH ONE #: [phone] Exam Date: 12/11/20181932 FAX #: [phone] Reason: Post Central Line Placemnent +/- R/O Pneumothor EXAMS: CPT CODE: [id number] XR CHEST 1 V 60719 CHEST RADIOGRA PH ONE VIEW 12/11/2018 AT [...] M.D. CC: Jordy Gambino DO; Marc Goodman BACTERIOLOGIST DAIRY; Joycelyn schneider MD Technologist: RT Juan Pablo(R) Trnscrd Date/Time/By: 12/11/2018 (1936) : By: [email or web address] Orig Print D/T: S: 12/11/2018 (1939) PAGE 1 Signed Report VITAMIN [id number] 19:23:00* Test Item Value Reference Range Interpretation Comments VITAMIN B12 (test code = VITB12) 3853 pg/mL 193-986 H FOLIC [id number] 19:23:00* Test Item Value Reference Range Interpretation Comments FOLIC ACID (test code = FOL) 8.0 ng/mL 3.1-17.5 N POC ARTERIAL BLOOD [id number] 19:09:00* Test Item Value Reference Range Interpretation Comments POC ARTERIAL BLOOD GAS PH (test code = POCPHA) 7.411 7.35-7. 45 N POC ARTERIAL BLOOD GAS PCO2 (test code = IKKDEP5F) 32.6 mmHg 35. 0-45 L POC TCO2 ARTERIAL (test code = POCTCO2) 21.7 POC ARTERIAL BLOOD GAS PO2 (test code = ZFRTP6O) 523.4 mmHg 80-10 0.0 HH POC HCO3 ARTERIAL (test code = JXQTYF8Q) 20.7 MMOL/L 22.0-26.0 L POC BASE EXCESS (test code = POCBEA) -3.4 MMOL/L -4.0-4.0 N POC O2 SATURATION (test code = POCO2S) 100.0 % 90-100 N [id number] 19:09:00* Test Item Value Reference Range Interpretation Comments SODIUM (test code = NA/ABG) MEQ/L 134-147 [id number] 19:09:00* Test Item Value Reference Range Interpretation Comments POTASSIUM (test code = K/ABG) MEQ/L 3.4-5.0 [id number] 19:09:00* Test Item Value Reference Range Interpretation Comments CHLORIDE (test code = CL/ABG) MEQ/L 100-108 CREATININE [id number] 19:09:00* Test Item Value Reference Range Interpretation Comments CREATININE ABG (test code = CREAABG) mg/dL 0.6-1.0 [id number] 19:09:00* Test Item Value Reference Range Interpretation Comments HEMOGLOBIN (test code = HGB/ABG) G/DL 11.0-15.0 [id number] 19:09:00* Test Item Value Reference Range Interpretation Comments HEMATOCRIT (test code = HCT/ABG) % 33.0-45.0 POC IONIZED [id number] 19:09:00* Test Item Value Reference Range Interpretation Comments POC IONIZED CALCIUM (test code = POCCA) MMOL/L 1.12-1.32 POC [id number] 19:09:00* Test Item Value Reference Range Interpretation Comments POC GLUCOSE (test code = POCGLU) MG/DL 70-110 POC ARTERIAL BLOOD [id number] 19:09:00* Test Item Value Reference Range Interpretation Comments POC ARTERIAL BLOOD GAS PH (test code = POCPHA) 7.411 7.35-7. 45 N POC ARTERIAL BLOOD GAS PCO2 (test code = KUAEFD6Z) 32.6 mmHg 35. 0-45 L POC TCO2 ARTERIAL (test code = POCTCO2) 21.7 POC ARTERIAL BLOOD GAS PO2 (test code = JWYBV8R) 523.4 mmHg 80-10 0.0 HH POC HCO3 ARTERIAL (test code = UNNZEU7J) 20.7 MMOL/L 22.0-26.0 L POC BASE EXCESS (test code = POCBEA) -3.4 MMOL/L -4.0-4.0 N POC O2 SATURATION (test code = POCO2S) 100.0 % 90-100 N [id number] 19:09:00* Test Item Value Reference Range Interpretation Comments SODIUM (test code = NA/ABG) 136 MEQ/L 134-147 N [id number] 19:09:00* Test Item Value Reference Range Interpretation Comments POTASSIUM (test code = K/ABG) MEQ/L 3.4-5.0 [id number] 19:09:00* Test Item Value Reference Range Interpretation Comments CHLORIDE (test code = CL/ABG) MEQ/L 100-108 CREATININE [id number] 19:09:00* Test Item Value Reference Range Interpretation Comments CREATININE ABG (test code = CREAABG) mg/dL 0.6-1.0 [id number] 19:09:00* Test Item Value Reference Range Interpretation Comments HEMOGLOBIN (test code = HGB/ABG) G/DL 11.0-15.0 [id number] 19:09:00* Test Item Value Reference Range Interpretation Comments HEMATOCRIT (test code = HCT/ABG) % 33.0-45.0 POC IONIZED [id number] 19:09:00* Test Item Value Reference Range Interpretation Comments POC IONIZED CALCIUM (test code = POCCA) MMOL/L 1.12-1.32 POC [id number] 19:09:00* Test Item Value Reference Range Interpretation Comments POC GLUCOSE (test code = POCGLU) MG/DL 70-110 POC ARTERIAL BLOOD [id number] 19:09:00* Test Item Value Reference Range Interpretation Comments POC ARTERIAL BLOOD GAS PH (test code = POCPHA) 7.411 7.35-7. 45 N POC ARTERIAL BLOOD GAS PCO2 (test code = BFKGRI4N) 32.6 mmHg 35. 0-45 L POC TCO2 ARTERIAL (test code = POCTCO2) 21.7 POC ARTERIAL BLOOD GAS PO2 (test code = TBLER2H) 523.4 mmHg 80-10 0.0 HH POC HCO3 ARTERIAL (test code = QUVZBL4E) 20.7 MMOL/L 22.0-26.0 L POC BASE EXCESS (test code = POCBEA) -3.4 MMOL/L -4.0-4.0 N POC O2 SATURATION (test code = POCO2S) 100.0 % 90-100 N [id number] 19:09:00* Test Item Value Reference Range Interpretation Comments SODIUM (test code = NA/ABG) 136 MEQ/L 134-147 N [id number] 19:09:00* Test Item Value Reference Range Interpretation Comments POTASSIUM (test code = K/ABG) 3.8 MEQ/L 3.4-5.0 N [id number] 19:09:00* Test Item Value Reference Range Interpretation Comments CHLORIDE (test code = CL/ABG) MEQ/L 100-108 CREATININE [id number] 19:09:00* Test Item Value Reference Range Interpretation Comments CREATININE ABG (test code = CREAABG) mg/dL 0.6-1.0 [id number] 19:09:00* Test Item Value Reference Range Interpretation Comments HEMOGLOBIN (test code = HGB/ABG) G/DL 11.0-15.0 [id number] 19:09:00* Test Item Value Reference Range Interpretation Comments HEMATOCRIT (test code = HCT/ABG) % 33.0-45.0 POC IONIZED [id number] 19:09:00* Test Item Value Reference Range Interpretation Comments POC IONIZED CALCIUM (test code = POCCA) MMOL/L 1.12-1.32 POC [id number] 19:09:00* Test Item Value Reference Range Interpretation Comments POC GLUCOSE (test code = POCGLU) MG/DL 70-110 POC ARTERIAL BLOOD [id number] 19:09:00* Test Item Value Reference Range Interpretation Comments POC ARTERIAL BLOOD GAS PH (test code = POCPHA) 7.411 7.35-7. 45 N POC ARTERIAL BLOOD GAS PCO2 (test code = FZAWQT3C) 32.6 mmHg 35. 0-45 L POC TCO2 ARTERIAL (test code = POCTCO2) 21.7 POC ARTERIAL BLOOD GAS PO2 (test code = EYBFH9A) 523.4 mmHg 80-10 0.0 HH POC HCO3 ARTERIAL (test code = MOOMOR1Q) 20.7 MMOL/L 22.0-26.0 L POC BASE EXCESS (test code = POCBEA) -3.4 MMOL/L -4.0-4.0 N POC O2 SATURATION (test code = POCO2S) 100.0 % 90-100 N [id number] 19:09:00* Test Item Value Reference Range Interpretation Comments SODIUM (test code = NA/ABG) 136 MEQ/L 134-147 N [id number] 19:09:00* Test Item Value Reference Range Interpretation Comments POTASSIUM (test code = K/ABG) 3.8 MEQ/L 3.4-5.0 N [id number] 19:09:00* Test Item Value Reference Range Interpretation Comments CHLORIDE (test code = CL/ABG) MEQ/L 100-108 CREATININE [id number] 19:09:00* Test Item Value Reference Range Interpretation Comments CREATININE ABG (test code = CREAABG) mg/dL 0.6-1.0 [id number] 19:09:00* Test Item Value Reference Range Interpretation Comments HEMOGLOBIN (test code = HGB/ABG) G/DL 11.0-15.0 [id number] 19:09:00* Test Item Value Reference Range Interpretation Comments HEMATOCRIT (test code = HCT/ABG) % 33.0-45.0 POC IONIZED [id number] 19:09:00* Test Item Value Reference Range Interpretation Comments POC IONIZED CALCIUM (test code = POCCA) 1.18 MMOL/L 1.12-1.32 N POC [id number] 19:09:00* Test Item Value Reference Range Interpretation Comments POC GLUCOSE (test code = POCGLU) MG/DL 70-110 POC ARTERIAL BLOOD [id number] 19:09:00* Test Item Value Reference Range Interpretation Comments POC ARTERIAL BLOOD GAS PH (test code = POCPHA) 7.411 7.35-7. 45 N POC ARTERIAL BLOOD GAS PCO2 (test code = DGFFXE8D) 32.6 mmHg 35. 0-45 L POC TCO2 ARTERIAL (test code = POCTCO2) 21.7 POC ARTERIAL BLOOD GAS PO2 (test code = KBWFT6L) 523.4 mmHg 80-10 0.0 HH POC HCO3 ARTERIAL (test code = RKDCJA9G) 20.7 MMOL/L 22.0-26.0 L POC BASE EXCESS (test code = POCBEA) -3.4 MMOL/L -4.0-4.0 N POC O2 SATURATION (test code = POCO2S) 100.0 % 90-100 N [id number] 19:09:00* Test Item Value Reference Range Interpretation Comments SODIUM (test code = NA/ABG) 136 MEQ/L 134-147 N [id number] 19:09:00* Test Item Value Reference Range Interpretation Comments POTASSIUM (test code = K/ABG) 3.8 MEQ/L 3.4-5.0 N [id number] 19:09:00* Test Item Value Reference Range Interpretation Comments CHLORIDE (test code = CL/ABG) MEQ/L 100-108 CREATININE [id number] 19:09:00* Test Item Value Reference Range Interpretation Comments CREATININE ABG (test code = CREAABG) mg/dL 0.6-1.0 [id number] 19:09:00* Test Item Value Reference Range Interpretation Comments HEMOGLOBIN (test code = HGB/ABG) G/DL 11.0-15.0 [id number] 19:09:00* Test Item Value Reference Range Interpretation Comments HEMATOCRIT (test code = HCT/ABG) % 33.0-45.0 POC IONIZED [id number] 19:09:00* Test Item Value Reference Range Interpretation Comments POC IONIZED CALCIUM (test code = POCCA) 1.18 MMOL/L 1.12-1.32 N POC [id number] 19:09:00* Test Item Value Reference Range Interpretation Comments POC GLUCOSE (test code = POCGLU) 90 MG/DL 70-110 N POC ARTERIAL BLOOD [id number] 19:09:00* Test Item Value Reference Range Interpretation Comments POC ARTERIAL BLOOD GAS PH (test code = POCPHA) 7.411 7.35-7. 45 N POC ARTERIAL BLOOD GAS PCO2 (test code = TKBTEM2C) 32.6 mmHg 35. 0-45 L POC TCO2 ARTERIAL (test code = POCTCO2) 21.7 POC ARTERIAL BLOOD GAS PO2 (test code = MVEUR8M) 523.4 mmHg 80-10 0.0 HH POC HCO3 ARTERIAL (test code = VQSPSU3V) 20.7 MMOL/L 22.0-26.0 L POC BASE EXCESS (test code = POCBEA) -3.4 MMOL/L -4.0-4.0 N POC O2 SATURATION (test code = POCO2S) 100.0 % 90-100 N [id number] 19:09:00* Test Item Value Reference Range Interpretation Comments SODIUM (test code = NA/ABG) 136 MEQ/L 134-147 N [id number] 19:09:00* Test Item Value Reference Range Interpretation Comments POTASSIUM (test code = K/ABG) 3.8 MEQ/L 3.4-5.0 N [id number] 19:09:00* Test Item Value Reference Range Interpretation Comments CHLORIDE (test code = CL/ABG) MEQ/L 100-108 CREATININE [id number] 19:09:00* Test Item Value Reference Range Interpretation Comments CREATININE ABG (test code = CREAABG) mg/dL 0.6-1.0 [id number] 19:09:00* Test Item Value Reference Range Interpretation Comments HEMOGLOBIN (test code = HGB/ABG) G/DL 11.0-15.0 [id number] 19:09:00* Test Item Value Reference Range Interpretation Comments HEMATOCRIT (test code = HCT/ABG) 26 % 33.0-45.0 L POC IONIZED [id number] 19:09:00* Test Item Value Reference Range Interpretation Comments POC IONIZED CALCIUM (test code = POCCA) 1.18 MMOL/L 1.12-1.32 N POC [id number] 19:09:00* Test Item Value Reference Range Interpretation Comments POC GLUCOSE (test code = POCGLU) 90 MG/DL 70-110 N POC ARTERIAL BLOOD [id number] 19:09:00* Test Item Value Reference Range Interpretation Comments POC ARTERIAL BLOOD GAS PH (test code = POCPHA) 7.411 7.35-7. 45 N POC ARTERIAL BLOOD GAS PCO2 (test code = VXAWJJ9J) 32.6 mmHg 35. 0-45 L POC TCO2 ARTERIAL (test code = POCTCO2) 21.7 POC ARTERIAL BLOOD GAS PO2 (test code = JHNCF2J) 523.4 mmHg 80-10 0.0 HH POC HCO3 ARTERIAL (test code = SKCHIG9X) 20.7 MMOL/L 22.0-26.0 L POC BASE EXCESS (test code = POCBEA) -3.4 MMOL/L -4.0-4.0 N POC O2 SATURATION (test code = POCO2S) 100.0 % 90-100 N [id number] 19:09:00* Test Item Value Reference Range Interpretation Comments SODIUM (test code = NA/ABG) 136 MEQ/L 134-147 N [id number] 19:09:00* Test Item Value Reference Range Interpretation Comments POTASSIUM (test code = K/ABG) 3.8 MEQ/L 3.4-5.0 N [id number] 19:09:00* Test Item Value Reference Range Interpretation Comments CHLORIDE (test code = CL/ABG) MEQ/L 100-108 CREATININE [id number] 19:09:00* Test Item Value Reference Range Interpretation Comments CREATININE ABG (test code = CREAABG) mg/dL 0.6-1.0 [id number] 19:09:00* Test Item Value Reference Range Interpretation Comments HEMOGLOBIN (test code = HGB/ABG) 8.9 G/DL 11.0-15.0 L [id number] 19:09:00* Test Item Value Reference Range Interpretation Comments HEMATOCRIT (test code = HCT/ABG) 26 % 33.0-45.0 L POC IONIZED [id number] 19:09:00* Test Item Value Reference Range Interpretation Comments POC IONIZED CALCIUM (test code = POCCA) 1.18 MMOL/L 1.12-1.32 N POC [id number] 19:09:00* Test Item Value Reference Range Interpretation Comments POC GLUCOSE (test code = POCGLU) 90 MG/DL 70-110 N POC ARTERIAL BLOOD [id number] 19:09:00* Test Item Value Reference Range Interpretation Comments POC ARTERIAL BLOOD GAS PH (test code = POCPHA) 7.411 7.35-7. 45 N POC ARTERIAL BLOOD GAS PCO2 (test code = NACIAB8O) 32.6 mmHg 35. 0-45 L POC TCO2 ARTERIAL (test code = POCTCO2) 21.7 POC ARTERIAL BLOOD GAS PO2 (test code = KEWGB5O) 523.4 mmHg 80-10 0.0 HH POC HCO3 ARTERIAL (test code = RCOGOW4G) 20.7 MMOL/L 22.0-26.0 L POC BASE EXCESS (test code = POCBEA) -3.4 MMOL/L -4.0-4.0 N POC O2 SATURATION (test code = POCO2S) 100.0 % 90-100 N [id number] 19:09:00* Test Item Value Reference Range Interpretation Comments SODIUM (test code = NA/ABG) 136 MEQ/L 134-147 N [id number] 19:09:00* Test Item Value Reference Range Interpretation Comments POTASSIUM (test code = K/ABG) 3.8 MEQ/L 3.4-5.0 N [id number] 19:09:00* Test Item Value Reference Range Interpretation Comments CHLORIDE (test code = CL/ABG) 103 MEQ/L 100-108 N CREATININE [id number] 19:09:00* Test Item Value Reference Range Interpretation Comments CREATININE ABG (test code = CREAABG) mg/dL 0.6-1.0 [id number] 19:09:00* Test Item Value Reference Range Interpretation Comments HEMOGLOBIN (test code = HGB/ABG) 8.9 G/DL 11.0-15.0 L [id number] 19:09:00* Test Item Value Reference Range Interpretation Comments HEMATOCRIT (test code = HCT/ABG) 26 % 33.0-45.0 L POC IONIZED [id number] 19:09:00* Test Item Value Reference Range Interpretation Comments POC IONIZED CALCIUM (test code = POCCA) 1.18 MMOL/L 1.12-1.32 N POC [id number] 19:09:00* Test Item Value Reference Range Interpretation Comments POC GLUCOSE (test code = POCGLU) 90 MG/DL 70-110 N POC ARTERIAL BLOOD [id number] 19:09:00* Test Item Value Reference Range Interpretation Comments POC ARTERIAL BLOOD GAS PH (test code = POCPHA) 7.411 7.35-7. 45 N POC ARTERIAL BLOOD GAS PCO2 (test code = UUVXFI8K) 32.6 mmHg 35. 0-45 L POC TCO2 ARTERIAL (test code = POCTCO2) 21.7 POC ARTERIAL BLOOD GAS PO2 (test code = WKANX2T) 523.4 mmHg 80-10 0.0 HH POC HCO3 ARTERIAL (test code = KECHKE1H) 20.7 MMOL/L 22.0-26.0 L POC BASE EXCESS (test code = POCBEA) -3.4 MMOL/L -4.0-4.0 N POC O2 SATURATION (test code = POCO2S) 100.0 % 90-100 N [id number] 19:09:00* Test Item Value Reference Range Interpretation Comments SODIUM (test code = NA/ABG) 136 MEQ/L 134-147 N [id number] 19:09:00* Test Item Value Reference Range Interpretation Comments POTASSIUM (test code = K/ABG) 3.8 MEQ/L 3.4-5.0 N [id number] 19:09:00* Test Item Value Reference Range Interpretation Comments CHLORIDE (test code = CL/ABG) 103 MEQ/L 100-108 N CREATININE [id number] 19:09:00* Test Item Value Reference Range Interpretation Comments CREATININE ABG (test code = CREAABG) 0.5 mg/dL 0.6-1.0 L [id number] 19:09:00* Test Item Value Reference Range Interpretation Comments HEMOGLOBIN (test code = HGB/ABG) 8.9 G/DL 11.0-15.0 L [id number] 19:09:00* Test Item Value Reference Range Interpretation Comments HEMATOCRIT (test code = HCT/ABG) 26 % 33.0-45.0 L POC IONIZED [id number] 19:09:00* Test Item Value Reference Range Interpretation Comments POC IONIZED CALCIUM (test code = POCCA) 1.18 MMOL/L 1.12-1.32 N POC [id number] 19:09:00* Test Item Value Reference Range Interpretation Comments POC GLUCOSE (test code = POCGLU) 90 MG/DL 70-110 N COMPREHENSIVE METABOLIC [id number] 18:25:00* Test Item Value Reference Range Interpretation Comments SODIUM (test code = NA) 134 mEq/L 134-147 N POTASSIUM (test code = K) 4.0 mEq/L 3.4-5.0 N CHLORIDE (test code = CL) 104 mEq/L 100-108 N CARBON DIOXIDE (test code = CO2) 23 mEq/L 21-33 N ANION GAP (test code = GAP) 11 0-20 N GLUCOSE (test code = GLU) 85 mg/dL 70-110 N BLOOD UREA NITROGEN (test code = BUN) 19 mg/dL 7-18 H GLOMERULAR FILTRATION RATE (test code = GFR) 226.9 80-90 H Units of measure = ml/min/1.73 m2 CREATININE (test code = CREAT) 0.3 mg/dL 0.6-1.3 L TOTAL PROTEIN (test code = PROT) 4.3 g/dL 6.4-8.2 L ALBUMIN (test code = ALB) 1.30 g/dL 3.4-5.0 L CALCIUM (test code = CA) 8.0 mg/dL 8.0-10.5 N BILIRUBIN TOTAL (test code = BILT) 1.60 mg/dL 0.0-1.0 H SGOT/AST (test code = AST) 172 IUnit/L 15-37 H SGPT/ALT (test code = ALT) 94 IUnit/L 15-65 H ALKALINE PHOSPHATASE TOTAL (test code = ALKP) 213 IUnit/L 20-125 H CBC W/AUTO [id number] 17:52:00* Test Item Value Reference Range Interpretation Comments WHITE BLOOD CELL (test code = WBC) 5.20 x10 3/uL 4.5-11.0 N RED BLOOD CELL (test code = RBC) 1.81 x10 6/uL 3.54-5.02 L HEMOGLOBIN (test code = HGB) 6.2 g/dL 11.0-15.0 LL HEMATOCRIT (test code = HCT) 19.0 % 33.0-45.0 L MEAN CELL VOLUME (test code = MCV) 105.0 fL 81.0-99.0 H MEAN CELL HGB (test code = MCH) 34.3 pg 27.0-33.0 H MEAN CELL HGB CONCETRATION (test code = MCHC) 32.6 g/dL 33.0-37. 0 L RED CELL DISTRIBUTION WIDTH CV (test code = RDW) 15.3 % 11.5- 14.5 H RED CELL DISTRIBUTION WIDTH SD (test code = RDW-SD) 57.5 fL 37 .0-54.0 H PLATELET COUNT (test code = PLT) 106 x10 3/uL 150-400 L MEAN PLATELET VOLUME (test code = MPV) 11.9 fL 7.0-9.0 H MANUAL DIFF REQUIRED (test code = MDIFF) YES WBC [id number] 17:52:00* Test Item Value Reference Range Interpretation Comments ANISOCYTOSIS (test code = ANISO) PLATELET ESTIMATE (test code = PLTEST) THOUSAND ADEQUATE CBC W/AUTO [id number] 17:52:00* Test Item Value Reference Range Interpretation Comments WHITE BLOOD CELL (test code = WBC) 5.20 x10 3/uL 4.5-11.0 N RED BLOOD CELL (test code = RBC) 1.81 x10 6/uL 3.54-5.02 L HEMOGLOBIN (test code = HGB) 6.2 g/dL 11.0-15.0 LL HEMATOCRIT (test code = HCT) 19.0 % 33.0-45.0 L MEAN CELL VOLUME (test code = MCV) 105.0 fL 81.0-99.0 H MEAN CELL HGB (test code = MCH) 34.3 pg 27.0-33.0 H MEAN CELL HGB CONCETRATION (test code = MCHC) 32.6 g/dL 33.0-37. 0 L RED CELL DISTRIBUTION WIDTH CV (test code = RDW) 15.3 % 11.5- 14.5 H RED CELL DISTRIBUTION WIDTH SD (test code = RDW-SD) 57.5 fL 37 .0-54.0 H PLATELET COUNT (test code = PLT) 106 x10 3/uL 150-400 L MEAN PLATELET VOLUME (test code = MPV) 11.9 fL 7.0-9.0 H MANUAL DIFF REQUIRED (test code = MDIFF) YES WBC [id number] 17:52:00* Test Item Value Reference Range Interpretation Comments SEGMENTED NEUTROPHILS (test code = SEG) 78.9 % 37-69 H LYMPHOCYTE (test code = LYMPH) 14.7 % 23-55 L MONOCYTE (test code = MON) 4.6 % 0-10 N MYELOCYTE (test code = MYELO) 0.9 % 0.0-0.0 H PROMYELOCYTE (test code = PROM) 0.9 % 0-0 H NUCLEATED RED BLOOD CELL (test code = NRBC) 5.5 % POLYCHROMASIA (test code = POLC) 1+ ANISOCYTOSIS (test code = ANISO) 1+ MACROCYTOSIS (test code = MACR) 1+ PLATELET ESTIMATE (test code = PLTEST) Decreased THOUSAND ADEQUATE PLATELET MORPHOLOGY (test code = PLTMORPH) LARGE PLATELETS CBC W/AUTO [id number] 17:52:00* Test Item Value Reference Range Interpretation Comments WHITE BLOOD CELL (test code = WBC) 5.20 x10 3/uL 4.5-11.0 N RED BLOOD CELL (test code = RBC) 1.81 x10 6/uL 3.54-5.02 L HEMOGLOBIN (test code = HGB) 6.2 g/dL 11.0-15.0 LL HEMATOCRIT (test code = HCT) 19.0 % 33.0-45.0 L MEAN CELL VOLUME (test code = MCV) 105.0 fL 81.0-99.0 H MEAN CELL HGB (test code = MCH) 34.3 pg 27.0-33.0 H MEAN CELL HGB CONCETRATION (test code = MCHC) 32.6 g/dL 33.0-37. 0 L RED CELL DISTRIBUTION WIDTH CV (test code = RDW) 15.3 % 11.5- 14.5 H RED CELL DISTRIBUTION WIDTH SD (test code = RDW-SD) 57.5 fL 37 .0-54.0 H PLATELET COUNT (test code = PLT) 106 x10 3/uL 150-400 L MEAN PLATELET VOLUME (test code = MPV) 11.9 fL 7.0-9.0 H MANUAL DIFF REQUIRED (test code = MDIFF) YES WBC [id number] 17:52:00* Test Item Value Reference Range Interpretation Comments ANISOCYTOSIS (test code = ANISO) PLATELET ESTIMATE (test code = PLTEST) THOUSAND ADEQUATE COMPREHENSIVE METABOLIC [id number] 17:13:00* Test Item Value Reference Range Interpretation Comments SODIUM (test code = NA) mEq/L 134-147 POTASSIUM (test code = K) mEq/L 3.4-5.0 CHLORIDE (test code = CL) mEq/L 100-108 CARBON DIOXIDE (test code = CO2) mEq/L 21-33 ANION GAP (test code = GAP) 0-20 GLUCOSE (test code = GLU) mg/dL 70-110 BLOOD UREA NITROGEN (test code = BUN) mg/dL 7-18 GLOMERULAR FILTRATION RATE (test code = GFR) 226.9 80-90 H Units of measure = ml/min/1.73 m2 CREATININE (test code = CREAT) 0.3 mg/dL 0.6-1.3 L TOTAL PROTEIN (test code = PROT) g/dL 6.4-8.2 ALBUMIN (test code = ALB) g/dL 3.4-5.0 CALCIUM (test code = CA) mg/dL 8.0-10.5 BILIRUBIN TOTAL (test code = BILT) 1.60 mg/dL 0.0-1.0 H SGOT/AST (test code = AST) 172 IUnit/L 15-37 H SGPT/ALT (test code = ALT) 94 IUnit/L 15-65 H ALKALINE PHOSPHATASE TOTAL (test code = ALKP) IUnit/L 20-125 PROTHROMBIN [id number] 17:06:00* Test Item Value Reference Range Interpretation Comments PROTHROMBIN TIME PATIENT (test code = PTP) 16.9 SECONDS 9.3-12.9 H INTERNATIONAL NORMAL RATIO (test code = INR) 1.5 0.8-1.2 H TARGET INR BY INDICATION Indication INR1. Prophylaxis [...] Infarction (to prevent recurrent infarct). THROMBOPLASTIN TIME [id number] 17:06:00* Test Item Value Reference Range Interpretation Comments THROMBOPLASTIN TIME PARTIAL (test code = PTT) 35.3 Seconds 25.0-39. 5 N Therapeutic Range: 61.8-83.8 Sec Effective 11/13/2013 TOTAL IRON BINDING [id number] 16:49:00* Test Item Value Reference Range Interpretation Comments SERUM IRON (test code = IRON) 99 mcg/dL 35-150 N TOTAL IRON BINDING CAPACITY (test code = TIBC) 90 mcg/dL 260-445 L UIBC (test code = UIBC) -9 mcg/dL IRON SATURATION (test code = FESAT) 110.0 % 14-34 H [id number] 16:49:00* Test Item Value Reference Range Interpretation Comments FERRITIN (test code = MINO) 485.1 ng/mL 11.0-306.8 H CBC W/AUTO [id number] 16:49:00* Test Item Value Reference Range Interpretation Comments WHITE BLOOD CELL (test code = WBC) 5.20 x10 3/uL 4.5-11.0 N RED BLOOD CELL (test code = RBC) 1.81 x10 6/uL 3.54-5.02 L HEMOGLOBIN (test code = HGB) 6.2 g/dL 11.0-15.0 LL HEMATOCRIT (test code = HCT) 19.0 % 33.0-45.0 L MEAN CELL VOLUME (test code = MCV) 105.0 fL 81.0-99.0 H MEAN CELL HGB (test code = MCH) 34.3 pg 27.0-33.0 H MEAN CELL HGB CONCETRATION (test code = MCHC) 32.6 g/dL 33.0-37. 0 L RED CELL DISTRIBUTION WIDTH CV (test code = RDW) 15.3 % 11.5- 14.5 H RED CELL DISTRIBUTION WIDTH SD (test code = RDW-SD) 57.5 fL 37 .0-54.0 H PLATELET COUNT (test code = PLT) 106 x10 3/uL 150-400 L MEAN PLATELET VOLUME (test code = MPV) 11.9 fL 7.0-9.0 H LYMPHOCYTE % (test code = LY%) % 14.0-32.0 MANUAL DIFF REQUIRED (test code = MDIFF) BASIC METABOLIC [id number] 14:04:00* Test Item Value Reference Range Interpretation Comments SODIUM (test code = NA) 132 mEq/L 134-147 L POTASSIUM (test code = K) 4.3 mEq/L 3.4-5.0 N CHLORIDE (test code = CL) 104 mEq/L 100-108 N CARBON DIOXIDE (test code = CO2) 21 mEq/L 21-33 N ANION GAP (test code = GAP) 11 0-20 N GLUCOSE (test code = GLU) 73 mg/dL 70-110 N BLOOD UREA NITROGEN (test code = BUN) 17 mg/dL 7-18 N GLOMERULAR FILTRATION RATE (test code = GFR) 162.8 80-90 H Units of measure = ml/min/1.73 m2 CREATININE (test code = CREAT) 0.4 mg/dL 0.6-1.3 L CALCIUM (test code = CA) 8.2 mg/dL 8.0-10.5 N NURSE [facility] 12/08/18 [id number] 14:04:00* Test Item Value Reference Range Interpretation Comments ALBUMIN (test code = ALB) 1.10 g/dL 3.4-5.0 L NURSE [facility] 12/08/18 [id number] 14:04:00* Test Item Value Reference Range Interpretation Comments MAGNESIUM (test code = MAG) 2.10 mg/dL 1.8-2.4 N NURSE [facility] 12/08/18 [id number] 14:04:00* Test Item Value Reference Range Interpretation Comments PREALBUMIN (test code = PREALB) 5.5 mg/dL 16.0-40.0 L NURSE [facility] 12/08/18 1038- CT ABD PELVIS [id number] 14:13:00 Name: HEIDI STEINER [facility] : 1960 Age/S: 58 / F [address] [place] [address] Unit #: [id number] Loc: [place] [address] Phys: Jignesh Oconnell MD Acct: [id number] Di s Date: Status: ADM IN PHONE #: Exam Date: 12/09/2018 1118 FAX #: Reason: purulent drainage from ANIKA drain EXAMS: CPT CODE: [id number] CT ABD PELVIS W/CONT 81389 PROCEDURE: CT ABDOMEN AND PELVIS WITH CONTRAST [...] 1 Signed Report (CONTINUED) Name: HEIDI STEINER [facility] : 1960 e/S: 58 / F [address] [place] [address] Unit #: [id number] Loc: [place] [address] Phys: Mathew Oconnell MD Acct: [id number] Dis Date: Status: ADM IN PHONE #: [phone] Exam Date: 12/09/2018 1118 FAX #: [phone] Reason: purulent drainage from ANIKA drain EXAMS: CPT CODE: [id number] CT ABD PELVIS W/CONT 66734 <Continued> quadrant end colostomy. APPENDIX: Normal. PERITONEUM: [...] edema. A verbal report was called to 5 W. sharad, Fiordaliza RN on 12/09/2018 at 1410 hours. She confirmed understanding of diagnosis of pulmonary embolism and will contact the ordering physician. FOR INTERNAL CODING PURPOSES ONLY RESULT C ODE: CVR PAGE 2 Signed Report (CON TINUED) Name: HEIDI STEINER : 1960 Age/S: 58 / F [address] [place] [address] Unit #: [id number] Loc: [place] [address] Phys: Mathew Rodriguez MD Acct: [id number] Dis Date: Status: ADM IN PH ONE #: [phone] Exam Date: 12/09/2018 1118 FAX #: [phone] Reason: purulent drainage from ANIKA drain EXA MS: CPT CODE: [id number] CT AB D PELVIS W/CONT 04826 <Continued> SL: K58-H at 1413 Reported and signed by: Deng More M.D. CC: Jordy Gambino DO; Mathew Oconnell MD; Joycelyn Person MD Technologist:Carolina Krueger RT(R)(CT) CTDI: DLP: Trnscb Date/Time: 12/09/2018 (1412) Fortino Orig Print D/T: S: 12/09/2018 (141) CTDI: DLP: PAGE 3 Signed Report - DUP VEIN [id number] 12:46:00 Name: HEIDI STEINER : 1960 Age/S: 58 / F [address] [place] [address] Unit #: [id number] Loc: [place] [address] Phys: Jean Carlos Khan MD Acct: [id number] Karoline mishra Date: Status: ADM IN PHONE #: Exam Date: 12/07/2018 1112 FAX #: [phone] Reason: BILAT UPPER EXT SWELLING EXAMS: CPT CODE: [id number] DUP VEIN ULICES 80523 PROCEDURE: BILATERAL UPPER EXTREMITY VENOUS ULTRASOUND INDICATION: [...] identified in the bilateral upper extremities. SL: [id number] at 4633 Reported and signed by: Radha Perez M.D. CC: Shakila Khan MD; Jordy Gambino DO; Joycelyn Person MD Technologist: Lachelle Rodriguez RDMS(BR)(AB) Trns cb Date/Time: 12/07/2018 (6470) NeetaRH17 Orig Print D/T: S: 12/07/2018 (3203) Probe: PAGE 1 Signed Report SURGICAL [id number] 07:45:00 RUN DATE: 12/06/18 [facility] *LIVE* PAGE 1 RUN TIME: 744 Specimen Inqui ry RUN USER: INTERFACE PATIENT: HEIDI STEINER ACCT #: [id number] LOC: Alex5WS U #: [id number] AGE/SX: 58/F [place] [facility] DR: Long Person : 56 BED: 1 DIS: STATUS: ADM IN TLOC: SPEC #: [id number] RECD: 11/30/18 STATUS: SIVAN LISY #: [id number] THOMPSON: 11/30/[address]: Long Person MD ENTERED: 12/05/18 SP TYPE: SURG SPEC OTHR DR: Shakila Mayorga i, MD, John D DO Koons JR, Patrick MD Pustilnik, Terri B MDORDERED: GM LEVEL 4 CODES: [id number] - COLON, NOS R39463 - V ULVA, NOS COPIES TO: [place] [address] [place] [address] Jordy Gambino DO [address] [facility] [address] [place] [address] Bk RUEDA,Terrence HAYNES [address] [facility] [address] [place] [address] Jami Blas MD [address] [place] [address] [place] [address] Joycelyn Person MD [address] [place] [address] [email or web address] PROCEDURES: GM LEVEL 4 (Incomplete) TISSUES: 1. VULVA, NOS - V ulva, deep margin, excision 2. COLON, NOS - Colostomy 3. VULVA, NOS - Vulva, post vagi wall, anal rectal, sig * * CONTINUED ON NEXT PAGE RUN DATE: 12/06/18 [facility] *LIVE* PAGE 2 RUN TIME: 45 Specimen Inquiry RUN USER: INTERFACE SPEC #: [id number] PATIENT: HEIDI STEINER #[id number] (Continued)-------- ---- FINAL DIAGNOSIS Vulva, deep margin, [...] ON N EXT PAGE RUN DATE: 12/06/18 [facility] *LIVE* PAGE 3 RUN TIME: 45 Sp stephenn Inquiry RUN USER: INTERFACE SPEC #: [id number] PATIENT: HEIDI UMANZOR #[id number] (Continued) GROSS AND MICROSCOPIC (Continued) squamous cell [...] SURGICAL SPECIMENS 2018-12-06 07:45:00 RUN DATE: 12/07/18 [facility] *LIVE* PAGE 1 RUN TIME: 814 Specimen Inqui ry RUN USER: INTERFACE PATIENT: HEIDI STEINER ACCT #: [id number] LOC: [facility] U #: [id number] AGE/SX: 58/F [place] [facility] [place]18REG DR: Long Person : 56 BED: 1 DIS: STATUS: ADM IN TLOC: SPEC #: [id number] RECD: 11/30/18 STATUS: SIVAN WASSERMAN #: [id number] THOMPSON: 11/30/[address]: Long Person MD ENTERED: 12/05/18 SP TYPE: SURG SPEC OTHR DR: Shakila Mayorga i, MD, John D DO Koons JR, Patrick MD Pustilnik, Terri B MDORDERED: GM LEVEL 4 CODES: [id number] - COLON, NOS [id number] - V ULVA, NOS [place]IES [place]: [place] [address] [place], [place] [id number] Jordy Gambino DO [address] [facility] [address] [place] [address] Terrence Bourgeois JR, MD [address] [facility] [address] [place] [address] Jami Blas MD [address] [place] [id number] Joycelyn Person MD [address] [facility] [address] [place], [place] [address] [email or web address] PROCEDURES: GM LEVEL 4 (Incomplete) TISSUES: 1. VULVA, NOS - V ulva, deep margin, excision 2. COLON, NOS - Colostomy 3. VULVA, NOS - Vulva, post vagi wall, anal rectal, sig * * CONTINUED ON NEXT PAGE RUN DATE: 12/07/18 [facility] *LIVE* PAGE 2 RUN TIME: 814 Specimen Inquiry RUN USER: INTERFACE SPEC #: [id number] PATIENT: HEIDI STEINER #[id number] (Continued)-------- ---- ADDENDUM FINDINGS Addendum #1 Entered: 12/06/18 *Procedure: Excision. * Tumor Site: Vulva/anal region. *Villa or Size: 3.4 cm. *Histol ogic Type: Squamous cell carcinoma. *Histologi c Grade: II-III *Maximum Tumo r Thickness: 1.2 cm. *Anatomic Level: V (carcinoma invades subcutaneum) *Margins: Peripheral Margins: Free of tumor. Deep Margin: Free of tumor. *Lymph-Vascular Invasion: Ident ified. *Perineural Invasion: Identified. *Lymph Nodes: 0/14. Pathologic Staging (pTNM): [id number] Addendum Signed SIGNATURE ON FILE Christie Sylvester [...] CONTINUED ON NEXT PAGE RUN DATE: 12/07/18 [facility] *LIVE* PAGE 3 RUN TIME: 814 Specimen Inquiry RUN USER: INTERFACE SPEC #: [id number] PATIENT: HEIDI STEINER #[id number] (Continued)------ ------ GROSS AND MICROSCOPIC (Continued) Specimen [...] Squamous cell cancer, vulvar/anal cancer REVIEWED BY: CONTINUED ON NEXT PAGE RUN DATE: [facility] *LIVE* PAGE 4 R UN TIME: 08 Specimen Inquiry RUN USER: INTERFACE ----- -------SPEC #: [id number] PATIENT: HEIDI STEINER #[id number] (Continued) Signed SIGNATURE ON FILE Christie Sylvester MD 12/06/18 0745 END OF REPORT [id number] 07:27:00* Test Item Value Reference Range Interpretation Comments CORTISOL (test code = CORTR) 15.3 ug/dL () Cortisol AM 6.2 - 19.4 Cortisol PM 2.3 - 11.9Performed At: [id number] [place], [place] [id number] Josiah Woodard MD Ph:[phone] BASIC METABOLIC [id number] 11:53:00* Test Item Value Reference Range Interpretation Comments SODIUM (test code = NA) 135 mEq/L 134-147 N POTASSIUM (test code = K) 3.0 mEq/L 3.4-5.0 L CHLORIDE (test code = CL) 101 mEq/L 100-108 N CARBON DIOXIDE (test code = CO2) 22 mEq/L 21-33 N ANION GAP (test code = GAP) 15 0-20 N GLUCOSE (test code = GLU) 55 mg/dL 70-110 L BLOOD UREA NITROGEN (test code = BUN) 7 mg/dL 7-18 N GLOMERULAR FILTRATION RATE (test code = GFR) 85.4 80-90 N Units of measure = ml/min/1.73 m2 CREATININE (test code = CREAT) 0.7 mg/dL 0.6-1.3 N CALCIUM (test code = CA) 8.0 mg/dL 8.0-10.5 N [id number] 11:53:00* Test Item Value Reference Range Interpretation Comments MAGNESIUM (test code = MAG) 1.30 mg/dL 1.8-2.4 L T4 [id number] 20:15:00* Test Item Value Reference Range Interpretation Comments T4 FREE (test code = T4F) 0.9 ng/dL 0.77-1.61 N THYROID STIMULATING [id number] 20:15:00* Test Item Value Reference Range Interpretation Comments THYROID STIMULATING HORMONE (test code = TSH) 2.11 0.42-5.4 7 N Results in moni- International Units/mL CBC W/AUTO [id number] 10:53:00* Test Item Value Reference Range Interpretation Comments WHITE BLOOD CELL (test code = WBC) 5.51 x10 3/uL 4.5-11.0 N RED BLOOD CELL (test code = RBC) 2.65 x10 6/uL 3.54-5.02 L HEMOGLOBIN (test code = HGB) 9.1 g/dL 11.0-15.0 L HEMATOCRIT (test code = HCT) 28.1 % 33.0-45.0 L MEAN CELL VOLUME (test code = MCV) 106.0 fL 81.0-99.0 H MEAN CELL HGB (test code = MCH) 34.3 pg 27.0-33.0 H MEAN CELL HGB CONCETRATION (test code = MCHC) 32.4 g/dL 33.0-37. 0 L RED CELL DISTRIBUTION WIDTH CV (test code = RDW) 16.1 % 11.5- 14.5 H RED CELL DISTRIBUTION WIDTH SD (test code = RDW-SD) 59.6 fL 37 .0-54.0 H PLATELET COUNT (test code = PLT) 151 x10 3/uL 150-400 N MEAN PLATELET VOLUME (test code = MPV) 10.2 fL 7.0-9.0 H NEUTROPHIL % (test code = NT%) 82.4 % 56.0-77.0 H IMMATURE GRANULOCYTE % (test code = IG%) 0.7 % 0.0-2.0 N LYMPHOCYTE % (test code = LY%) 10.5 % 14.0-32.0 L MONOCYTE % (test code = MO%) 5.8 % 4.8-9.0 N EOSINOPHIL % (test code = EO%) 0.4 % 0.3-3.7 N BASOPHIL % (test code = BA%) 0.2 % 0.0-2.0 N NUCLEATED RBC % (test code = NRBC%) 0.0 % 0-0 N NEUTROPHIL # (test code = NT#) 4.54 x10 3/uL 2.0-7.6 N IMMATURE GRANULOCYTE # (test code = IG#) 0.04 x10 3/uL 0.00-0.03 H LYMPHOCYTE # (test code = LY#) 0.58 x10 3/uL 1.0-3.8 L MONOCYTE # (test code = MO#) 0.32 x10 3/uL 0.1-0.8 N EOSINOPHIL # (test code = EO#) 0.02 x10 3/uL 0.0-0.2 N BASOPHIL # (test code = BA#) 0.01 x10 3/uL 0.0-0.2 N NUCLEATED RBC # (test code = NRBC#) 0.00 x10 3/uL 0.0-0.1 N MANUAL DIFF REQUIRED (test code = MDIFF) NO SLIDE REVIEWED, CONSISTENT WITH AUTO DIFF. CBC W/AUTO [id number] 07:58:00* Test Item Value Reference Range Interpretation Comments WHITE BLOOD CELL (test code = WBC) 5.51 x10 3/uL 4.5-11.0 N RED BLOOD CELL (test code = RBC) 2.65 x10 6/uL 3.54-5.02 L HEMOGLOBIN (test code = HGB) 9.1 g/dL 11.0-15.0 L HEMATOCRIT (test code = HCT) 28.1 % 33.0-45.0 L MEAN CELL VOLUME (test code = MCV) 106.0 fL 81.0-99.0 H MEAN CELL HGB (test code = MCH) 34.3 pg 27.0-33.0 H MEAN CELL HGB CONCETRATION (test code = MCHC) 32.4 g/dL 33.0-37. 0 L RED CELL DISTRIBUTION WIDTH CV (test code = RDW) 16.1 % 11.5- 14.5 H RED CELL DISTRIBUTION WIDTH SD (test code = RDW-SD) 59.6 fL 37 .0-54.0 H PLATELET COUNT (test code = PLT) 151 x10 3/uL 150-400 N MEAN PLATELET VOLUME (test code = MPV) 10.2 fL 7.0-9.0 H LYMPHOCYTE % (test code = LY%) % 14.0-32.0 MANUAL DIFF REQUIRED (test code = MDIFF) BASIC METABOLIC [id number] 10:41:00* Test Item Value Reference Range Interpretation Comments SODIUM (test code = NA) 136 mEq/L 134-147 N POTASSIUM (test code = K) 4.7 mEq/L 3.4-5.0 N CHLORIDE (test code = CL) 99 mEq/L 100-108 L CARBON DIOXIDE (test code = CO2) 32 mEq/L 21-33 N ANION GAP (test code = GAP) 10 0-20 N GLUCOSE (test code = GLU) 95 mg/dL 70-110 N BLOOD UREA NITROGEN (test code = BUN) 12 mg/dL 7-18 N GLOMERULAR FILTRATION RATE (test code = GFR) 73.2 80-90 L Units of measure = ml/min/1.73 m2 CREATININE (test code = CREAT) 0.8 mg/dL 0.6-1.3 N CALCIUM (test code = CA) 8.8 mg/dL 8.0-10.5 N [id number] 10:41:00* Test Item Value Reference Range Interpretation Comments PHOSPHOROUS (test code = PHOS) 3.5 mg/dL 2.5-4.9 N [id number] 10:41:00* Test Item Value Reference Range Interpretation Comments MAGNESIUM (test code = MAG) 1.40 mg/dL 1.8-2.4 L CALCIUM [id number] 10:41:00* Test Item Value Reference Range Interpretation Comments CALCIUM IONIZED (test code = CONNIE) 1.26 MMOL/L 1.12-1.32 N BASIC METABOLIC [id number] 10:30:00* Test Item Value Reference Range Interpretation Comments SODIUM (test code = NA) mEq/L 134-147 POTASSIUM (test code = K) mEq/L 3.4-5.0 CHLORIDE (test code = CL) mEq/L 100-108 CARBON DIOXIDE (test code = CO2) mEq/L 21-33 ANION GAP (test code = GAP) 0-20 GLUCOSE (test code = GLU) mg/dL 70-110 BLOOD UREA NITROGEN (test code = BUN) mg/dL 7-18 GLOMERULAR FILTRATION RATE (test code = GFR) 80-90 CREATININE (test code = CREAT) mg/dL 0.6-1.3 CALCIUM (test code = CA) mg/dL 8.0-10.5 [id number] 10:30:00* Test Item Value Reference Range Interpretation Comments PHOSPHOROUS (test code = PHOS) mg/dL 2.5-4.9 [id number] 10:30:00* Test Item Value Reference Range Interpretation Comments MAGNESIUM (test code = MAG) mg/dL 1.8-2.4 CALCIUM [id number] 10:30:00* Test Item Value Reference Range Interpretation Comments CALCIUM IONIZED (test code = CONNIE) 1.26 MMOL/L 1.12-1.32 N HGB [id number] 10:26:00* Test Item Value Reference Range Interpretation Comments HEMOGLOBIN (test code = HGB) 9.2 g/dL 11.0-15.0 L HEMATOCRIT (test code = HCT) 28.8 % 33.0-45.0 L CBC W/AUTO [id number] 16:43:00* Test Item Value Reference Range Interpretation Comments WHITE BLOOD CELL (test code = WBC) 5.70 x10 3/uL 4.5-11.0 RED BLOOD CELL (test code = RBC) 3.81 x10 6/uL 3.54-5.02 N HEMOGLOBIN (test code = HGB) 12.7 g/dL 11.0-15.0 N HEMATOCRIT (test code = HCT) 39.3 % 33.0-45.0 N MEAN CELL VOLUME (test code = MCV) 103.1 fL 81.0-99.0 H MEAN CELL HGB (test code = MCH) 33.3 pg 27.0-33.0 H MEAN CELL HGB CONCETRATION (test code = MCHC) 32.3 g/dL 33.0-37. 0 L RED CELL DISTRIBUTION WIDTH CV (test code = RDW) 17.2 % 11.5- 14.5 H RED CELL DISTRIBUTION WIDTH SD (test code = RDW-SD) 66.0 fL 37 .0-54.0 H PLATELET COUNT (test code = PLT) 221 x10 3/uL 150-400 N MEAN PLATELET VOLUME (test code = MPV) 10.0 fL 7.0-9.0 H NEUTROPHIL % (test code = NT%) 73.2 % 56.0-77.0 N IMMATURE GRANULOCYTE % (test code = IG%) 0.5 % 0.0-2.0 N LYMPHOCYTE % (test code = LY%) 17.9 % 14.0-32.0 N MONOCYTE % (test code = MO%) 7.5 % 4.8-9.0 N EOSINOPHIL % (test code = EO%) 0.5 % 0.3-3.7 N BASOPHIL % (test code = BA%) 0.4 % 0.0-2.0 N NUCLEATED RBC % (test code = NRBC%) 0.0 % 0-0 N NEUTROPHIL # (test code = NT#) 4.17 x10 3/uL 2.0-7.6 N IMMATURE GRANULOCYTE # (test code = IG#) 0.03 x10 3/uL 0.00-0.03 N LYMPHOCYTE # (test code = LY#) 1.02 x10 3/uL 1.0-3.8 N MONOCYTE # (test code = MO#) 0.43 x10 3/uL 0.1-0.8 N EOSINOPHIL # (test code = EO#) 0.03 x10 3/uL 0.0-0.2 N BASOPHIL # (test code = BA#) 0.02 x10 3/uL 0.0-0.2 N NUCLEATED RBC # (test code = NRBC#) 0.00 x10 3/uL 0.0-0.1 N MANUAL DIFF REQUIRED (test code = MDIFF) NO BASIC METABOLIC [id number] 16:39:00* Test Item Value Reference Range Interpretation Comments SODIUM (test code = NA) 133 mEq/L 134-147 L POTASSIUM (test code = K) 3.5 mEq/L 3.4-5.0 N CHLORIDE (test code = CL) 95 mEq/L 100-108 L CARBON DIOXIDE (test code = CO2) 30 mEq/L 21-33 N ANION GAP (test code = GAP) 12 0-20 N GLUCOSE (test code = GLU) 125 mg/dL 70-110 H BLOOD UREA NITROGEN (test code = BUN) 14 mg/dL 7-18 N GLOMERULAR FILTRATION RATE (test code = GFR) 85.4 80-90 N Units of measure = ml/min/1.73 m2 CREATININE (test code = CREAT) 0.7 mg/dL 0.6-1.3 N CALCIUM (test code = CA) 10.5 mg/dL 8.0-10.5 N PROTHROMBIN [id number] 16:35:00* Test Item Value Reference Range Interpretation Comments PROTHROMBIN TIME PATIENT (test code = PTP) 12.5 SECONDS 9.3-12.9 N INTERNATIONAL NORMAL RATIO (test code = INR) 1.1 0.8-1.2 N TARGET INR BY INDICATION Indication INR1. Prophylaxis [...] Infarction (to prevent recurrent infarct). THROMBOPLASTIN TIME [id number] 16:35:00* Test Item Value Reference Range Interpretation Comments THROMBOPLASTIN TIME PARTIAL (test code = PTT) 29.0 Seconds 25.0-39. 5 N Therapeutic Range: 61.8-83.8 Sec Effective 11/13/2013 - XR CHEST 2 [id number] 16:06:00 FAX: Jordy Martinez DO [phone] [place]: St: PRE FAX: Jami Banuelos [phone] FAX: Dwayne Millan [phone] Name: HEIDI STEINER [facility] [place] : 1960 Age/S: 58/F [address] [place] [address] Unit #: [id number] Loc: [place] [address] Phys: Jami Blas MD Acct: [id number] Dis Date: Status: PRE SDC PH ONE #: [phone] Exam Date: 11/26/2018 1600 FAX #: [phone] Reason: PREOP EXAMS: CPT CODE: [id number] XR CHEST 2 V 28960 2 VIEW RADIOGR APHS OF THE CHEST [...] process. There is stable pulmonary hyperinflation. at 1606 Reported and signed by: Gerald Cote D.O. CC: Jordy Gambino DO; Jami bauer MD; Joycelyn Person MD Technologist: Wendi Larose, RT(R) Trnscrd Date/Time/By: 11/26/2018 (2924) : By: [email or web address] Orig Print D/T: S: 11/26/2018 (1748) PAGE 1 Signed Report
--- NOTE | 2020-03-03 23:45 | NUR ---
Perianal area packed with multiple 4x4's at this time.
[2020-03-03] MEDS ORDERED: SODIUM CHLORIDE 0.9% 1000ML 1,000 ML IV STA (23:48)
[2020-03-04] VITALS (11 sets, daily range): BP systolic 81–132; BP diastolic 52–68
[2020-03-04 00:06] LABS: BASOPHILS # (AUTO) 0.1 (0.0-0.1); BASOPHILS % 0.3 % (0.0-1.0); EOSINOPHILS % 0.1 % (0.0-6.0); HEMATOCRIT 33.3 % (34.2-44.1); HEMOGLOBIN 10.5 g/dL (12.0-16.0); LYMPHOCYTES # (AUTO) 1.4 (1.0-3.2); LYMPHOCYTES % 6.6 % (18.0-39.1); MEAN CORPUSCULAR HEMOGLOBIN 31.2 pg (28-32); MEAN CORPUSCULAR HGB CONC 31.5 g/dL (31-35); MEAN CORPUSCULAR VOLUME 98.8 fL (81-99); MONOCYTES # (AUTO) 1.7 (0.2-0.8); NEUTROPHILS # (AUTO) 18.2 (2.1-6.9); PLATELET COUNT 359 x10e3/uL (140-360); RED BLOOD COUNT 3.37 x10e6/uL (3.6-5.1); RED CELL DISTRIBUTION WIDTH 16.2 % (11.7-14.4)
[2020-03-04] MEDS ORDERED: VANCOMYCIN 1GM/NS 250 ML 250 ML IV STA (00:20)
[2020-03-04 00:25] LABS: ALANINE AMINOTRANSFERASE 8 IU/L (0-55); ALBUMIN 2.3 g/dL (3.5-5.0); ALBUMIN/GLOBULIN RATIO 0.5 (0.8-2.0); ALKALINE PHOSPHATASE 74 IU/L (40-150); ANION GAP 17.1 mmol/L (8-16); BLOOD UREA NITROGEN 9 mg/dL (7-26); BUN/CREATININE RATIO 18 (6-25); CALCIUM 9.6 mg/dL (8.4-10.2); CARBON DIOXIDE 20 mmol/L (22-29); CHLORIDE 100 mmol/L (98-107); CREATINE KINASE 14 IU/L (29-168); EST GLOMERULAR FILTRATION RATE > 60 ML/MIN (60-); GLUCOSE 65 mg/dL (74-118); POTASSIUM 4.1 mmol/L (3.5-5.1); SODIUM 133 mmol/L (136-145)
[2020-03-04 00:29] LABS: CLARITY,URINE CLOUDY (CLEAR); COLOR,URINE AMBER (YELLOW)
[2020-03-04 00:30] LABS: BILIRUBIN,URINE SMALL (NEGATIVE); KETONES,URINE NEGATIVE (NEGATIVE); LEUKOCYTE ESTERASE ,URINE 2+ (NEGATIVE); NITRITE,URINE POSITIVE (NEGATIVE); PROTEIN,URINE DIPSTICK >=300 (NEGATIVE); URINE UROBILINOGEN 1 mg/dL (0.2 - 1)
[2020-03-04] MEDS ORDERED: CEFEPIME HCL 1 GM VIAL IV SCH (00:30)
[2020-03-04] MEDS: CEFEPIME 1GM/NS 0.9% 50 ML 50 ML IV SCH ×2 (00:40→14:00)
[2020-03-04] MEDS ORDERED: IOPAMIDOL 370 MG/ML 200 ML INFUS..BTL INJ ONE (01:19)
[2020-03-04] MEDS ORDERED: SODIUM CHLORIDE 0.9% 50ML 50 ML ONE (01:19)
--- NOTE | 2020-03-04 01:19 | Emergency Department Note ---
History of Present Illnes History of Present Illness Chief Complaint: Abdominal Complaints History of Present Illness This is a 59 year old female arrived to the ED with complaints of blood from massey catheter and rectal bleeding. Chief Complaint Comment Patient brought in by [facility] for blood in urine and blood coming out of rectum. Patient denies any pain at this time. Patient has history of vulvar cancer. Historian: Patient Arrival Mode: Car Onset (how long ago): hour(s) Radiation: back Timing of current episode: constant Progression: unchanged Context: recent illness Past Medical/Family History Physician Review I have reviewed the patient's past medical and family history. Any updates have been documented here. 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 Physical Exam Related Data Allergies: Coded Allergies: No Known Allergies (Unverified , 01/31/20) Triage Vital Signs Vital Signs Date Time Temp Pulse Resp B/P (MAP) Pulse Ox O2 Delivery O2 Flow Rate FiO2 03/03/20 23:30 98.8 114 18 104/60 99 Vital signs reviewed: Yes Physical Exam CONSTITUTIONAL Constitutional: cachectic, ill appearing HENT EYES NECK PULMONARY Pulmonary: breath sounds normal CARDIOVASCULAR Cardiovascular: tachycardia GASTROINTESTINAL Abdominal: soft, other (+G tube ) GENITOURINARY SKIN MUSCULOSKELETAL NEUROLOGICAL Neurological: alert, oriented x 3 PSYCHOLOGICAL Results Laboratory Laboratory Laboratory Tests Test 03/03/20 23:42 Lab results reviewed: Yes Laboratory comments Date Time Temp Pulse Resp B/P (MAP) Pulse Ox O2 Delivery O2 Flow Rate FiO2 03/04/20 02:46 98.8 98 16 106/61 99 Laboratory Tests Test 03/04/20 02:43 03/04/20 00:27 5/19/20 23:42 Lactic Acid Level 1.2 mmol/L (0.5-2.0) White Blood Count 21.61 x10e3/uL (4.8-10.8) Red Blood Count 3.37 x10e6/uL (3.6-5.1) Hemoglobin 10.5 g/dL (12.0-16.0) Hematocrit 33.3 % (34.2-44.1) Mean Corpuscular Volume 98.8 fL (81-99) Mean Corpuscular Hemoglobin 31.2 pg (28-32) Mean Corpuscular Hemoglobin Concent 31.5 g/dL (31-35) Red Cell Distribution Width 16.2 % (11.7-14.4) Platelet Count 359 x10e3/uL (140-360) Neutrophils (%) (Auto) 84.0 % (38.7-80.0) Lymphocytes (%) (Auto) 6.6 % (18.0-39.1) Monocytes (%) (Auto) 8.0 % (4.4-11.3) Eosinophils (%) (Auto) 0.1 % (0.0-6.0) Basophils (%) (Auto) 0.3 % (0.0-1.0) Neutrophils # (Auto) 18.2 (2.1-6.9) Lymphocytes # (Auto) 1.4 (1.0-3.2) Monocytes # (Auto) 1.7 (0.2-0.8) Eosinophils # (Auto) 0.0 (0.0-0.4) Basophils # (Auto) 0.1 (0.0-0.1) Absolute Immature Granulocyte (auto 0.22 x10e3/uL (0-0.1) Urine Color [place] (YELLOW) Urine Clarity Cloudy (CLEAR) Urine pH 9 (5 - 7) Urine Specific [place] 1.010 (1.010-1.025) Urine Protein >=300 (NEGATIVE) Urine Glucose (UA) Negative (NEGATIVE) Urine Ketones Negative (NEGATIVE) Urine Blood 4+ (NEGATIVE) Urine Nitrite Positive (NEGATIVE) Urine Bilirubin Small (NEGATIVE) Urine Urobilinogen 1 mg/dL (0.2 - 1) Urine Leukocyte Esterase 2+ (NEGATIVE) Urine RBC >50 /HPF (0-5) Urine WBC >50 /HPF (0-5) Urine Epithelial Cells Few /LPF (NONE) Urine Bacteria Many /HPF (NONE) Sodium Level 133 mmol/L (136-145) Potassium Level 4.1 mmol/L (3.5-5.1) Chloride Level 100 mmol/L (98-107) Carbon Dioxide Level 20 mmol/L (22-29) Anion Gap 17.1 mmol/L (8-16) Blood Urea Nitrogen 9 mg/dL (7-26) Creatinine 0.50 mg/dL (0.57-1.11) Estimat Glomerular Filtration Rate > 60 ML/MIN (60-) BUN/Creatinine Ratio 18 (6-25) Glucose Level 65 mg/dL (74-118) Calcium Level 9.6 mg/dL (8.4-10.2) Total Bilirubin 0.5 mg/dL (0.2-1.2) Aspartate Amino Transf (AST/SGOT) 14 IU/L (5-34) Alanine Aminotransferase (ALT/SGPT) 8 IU/L (0-55) Alkaline Phosphatase 74 IU/L (40-150) Creatine Kinase 14 IU/L (29-168) Creatine Kinase MB 1.00 ng/mL (0-5.0) Troponin I 0.011 ng/mL (0-0.300) Total Protein 7.0 g/dL (6.5-8.1) Albumin 2.3 g/dL (3.5-5.0) Globulin 4.7 g/dL (2.3-3.5) Albumin/Globulin Ratio 0.5 (0.8-2.0) Imaging Imaging results reviewed: Yes Impressions IMPRESSION: Status post Manuela En Y gastric bypass without evidence of obstruction. Decreased trace lower pneumomediastinum. New trace to small amount of pneumoperitoneum in the upper abdomen, which could reflect tracking of the pneumomediastinal air into the abdomen or gastric leak. If clinical concern for leak, recommend further evaluation with fluoroscopy and surgical follow-up. Status post interval suprapubic catheter placement, with balloon terminating in the bladder. The catheter beyond the balloon appears to extend into or through the urethra in this patient status post vulvectomy. Recommend clinical correlation. Decreased mild to moderate right and minimal left hydronephrosis. Decreased right urothelial enhancement, recommend correlation for possible history of treated UTI. The above findings were discussed with Dr. Pruitt on 03/04/20 at 227 AM. Critical Care Time Total Critical Care Time (min): 65 Critical care time exclusive o: separately billable procedures Critcal care necessary due to: sepsis Subsequent provider I assumed direction of critical care for this patient from another provider of my specialty. Comments Severe Sepsis Time: 6 Interventions: Blood cultures collected Lactic acid collected Broad Spectrum antibiotics Lactic acid #1: 1.2 (time resulted) Lactic acid #2: not indicated Assessment & Plan Assessment & Plan Final Impression: (1) Sepsis (2) Pneumomediastinum (3) Pneumoperitoneum Assessment & Plan cbc, cmp, cardiac markers CXR Depart Disposition: ADMITTED Last Vital Signs Date Time Temp Pulse Resp B/P (MAP) Pulse Ox O2 Delivery O2 Flow Rate FiO2 03/03/20 23:33 110 16 101/71 98 03/03/20 23:30 98.8 Home Meds Active Scripts Zinc Sulfate (ZINC SULFATE) 220 Mg Capsule, 220 MG PO DAILY for 30 Days Prov:DENIS JOHNSON PRODUCT DEVELOPMENT DIRECTOR 02/22/20 Oxybutynin Chloride (OXYBUTYNIN CHLORIDE) 5 Mg Tablet, 5 MG PO TID for 30 Days Prov:DENIS JOHNSON PRODUCT DEVELOPMENT DIRECTOR 02/22/20 Magnesium Oxide (MAG-OXIDE) 400 Mg Tablet, 400 MG PO BID for 30 Days Prov:DENIS JOHNSON PRODUCT DEVELOPMENT DIRECTOR 02/22/20 [Folic Acid] 1 MG TAB No Conflict Check, 1 MG PO DAILY for 30 Days Prov:DENIS JOHNSON PRODUCT DEVELOPMENT DIRECTOR 02/22/20 [Calcium Carbonate] 500 MG TAB No Conflict Check, 500 MG PO TID for 30 Days Prov:DENIS JOHNSON PRODUCT DEVELOPMENT DIRECTOR 02/22/20 Reported Medications Albuterol Sulf* (PROAIR HFA INHALER*) 8.5 Gm Inh, IH PRN 02/20/20 Apixaban (Eliquis) 5 Mg Tablet, 5 MG PO BID 02/20/20 Pantoprazole Sodium* (PROTONIX) 40 Mg Tablet.dr, 40 MG PO DAILY, TAB 02/20/20 Gabapentin (GABAPENTIN) 100 Mg Capsule, 100 MG PO TID 02/20/20 Sucralfate (SUCRALFATE) 1 Gm Tablet, 1 GM PO QID, TAB 02/20/20 Sertraline Hcl (ZOLOFT) 50 Mg Tablet, 100 MG PO DAILY, #30 TAB 02/20/20 Medications in the ED Sodium Chloride 1,000 ml @ 0 mls/hr Q0M STAT IV Last administered on 03/03/20at 23:57; Admin Dose 999 MLS/HR; Start 03/03/20 at 23:48; Stop 03/03/20 at 23:49 DWAYNE PRUITT DO March 04, 2020 01:03
[2020-03-04] MEDS ORDERED: PIPER-TAZ 3.375 GM 50 ML IV ONE (02:30)
--- NOTE | 2020-03-04 02:34 | Diagnostic Imaging Report ---
EXAM: CT Abdomen and Pelvis with contrast INDICATION:Lower gi bleed COMPARISON: CT abdomen pelvis dated 02/09/2020 and 02/10/2020. TECHNIQUE: Abdomen and pelvis were scanned after administration of IV contrast. Coronal and sagittal reformations were obtained. Routine protocol was performed. Scan was performed during portal venous phase. ORAL CONTRAST: Yes RADIATION DOSE: Total DLP: 234.48 mGy*cm Estimated effective dose: (DLP x 0.015 x size factor) mSv COMPLICATIONS: None FINDINGS: LOWER THORAX: Interval resolution of small bilateral pleural effusions. Minimal dependent atelectasis. Decreased small volume lower pneumomediastinum. HEPATOBILIARY: No focal hepatic lesions. There is intra- and extra- hepatic biliary dilation likely post cholecystectomy reservoir effect. GALLBLADDER: Cholecystectomy. SPLEEN: No splenomegaly. PANCREAS: No focal masses or ductal dilatation. ADRENALS: No adrenal nodules KIDNEYS/URETERS: Decreased mild to moderate right hydronephrosis and minimal left hydronephrosis. Decreased urothelial enhancement on the right. No cystic or solid mass lesions. No stones. GI TRACT: Stable Manuela En Y gastric bypass postsurgical changes. There is mild soft tissue thickening of the distal esophagus and proximal stomach at the surgical site. Partial left hemicolectomy. There is a colon ostomy within the anterior pelvic wall slightly to the left of midline. There has been resection of the rectum. There is no obstruction. PELVIC ORGANS/BLADDER: Status post vulvectomy. Interval placement of a suprapubic catheter. The balloon terminates in the bladder, however the portion of the catheter beyond the balloon appears to extend into or through the urethra, as seen on series 2, image 73 and coronal series 301, image 40. The uterus is not visualized. No adnexal masses. LYMPH NODES: No lymphadenopathy. VESSELS: IVC filter within the infrarenal IVC with struts penetrated through the IVC wall, unchanged. Mild to moderate atherosclerotic changes of the abdominal aorta. PERITONEUM / RETROPERITONEUM: Interval development of small amount pneumoperitoneum in the bilateral upper abdomen, for example adjacent to the liver on series 2, image 13. Small amount of free fluid in the deep pelvis. BONES: Sclerotic changes of the sacrum adjacent to the ulcer likely representing chronic inflammatory changes/chronic osteomyelitis. Multilevel degenerative changes of the lumbar spine. SOFT TISSUES: Chronic sacral ulcer surrounding by extensive soft tissue density likely chronic inflammatory changes. No drainable fluid collections or abscess. Diffuse anasarca. Asymmetric edema in the right lateral thigh subcutaneous tissues. IMPRESSION: Status post Manuela En Y gastric bypass without evidence of obstruction. Decreased trace lower pneumomediastinum. New trace to small amount of pneumoperitoneum in the upper abdomen, which could reflect tracking of the pneumomediastinal air into the abdomen or gastric leak. If clinical concern for leak, recommend further evaluation with fluoroscopy and surgical follow-up. Status post interval suprapubic catheter placement, with balloon terminating in the bladder. The catheter beyond the balloon appears to extend into or through the urethra in this patient status post vulvectomy. Recommend clinical correlation. Decreased mild to moderate right and minimal left hydronephrosis. Decreased right urothelial enhancement, recommend correlation for possible history of treated UTI. The above findings were discussed with Dr. Shaikh on 03/04/20 at 227 AM. Signed by: Dr. Leander Beltre MD on 03/04/2020 2:30 AM
--- OUTSIDE RECORDS SUMMARY | 2020-03-04 02:49 | XMS REPORT ---
Author Author [facility] t Organization [facility] Address [address] [place] [address] Phone Unavailable Care Team Providers Care Credit Advisor Name Role Phone NO, PCP PCP Unavailable Hans PRUITT Attphys Unavailable DARRYN BECKMAN Attphys Unavailable HAMPEL, SHAYY Admphys Unavailable KILLAM, DARRYN Admphys Unavailable Payers Payer Name Policy Type Policy Number Effective Date Expiration Date [employer] [id number] 2019 00:00:00 [facility] Advance Directives Directive Decision Effective Date Termination Date Comments Sour ce Yes N/A [facility] Problems Condition Name Condition Details Condition Category Status Onset Date Resolution Date Last Treatment Date Treating Clinician Comments Source Septic shock Problem [facility] Urinary tract infection Problem [facility] Fever Problem [facility] Araiza catheter in place prior to arrival Problem [facility] Allergies, Adverse Reactions, Alerts Allergy Name Allergy Type Status Severity Reaction(s) Onset Date Inacti ve Date Treating Clinician Comments Source No Known Allergies DA Active U 2019-05-06 00:00:00 [facility] No Known Allergies DA Active U 2019-03-09 00:00:00 [facility] No Known Allergies DA Active U 2018-11-30 00:00:00 [facility] No Known Allergies DA Active U 2018-07-30 00:00:00 [facility] No Known Allergies DA Active U 2018-07-27 00:00:00 [facility] No Known Allergies DA Active U 2017-08-25 00:00:00 [facility] No Known Allergies DA Active U 2017-05-10 00:00:00 [facility] Social History Social Habit Start Date Stop Date Quantity Comments Source Sex Assigned At 1960 00:00:00 1960 00:00:00 Female [facility] Medications Ordered Medication Name Filled Medication Name Start Date Stop Da te Current Medication? Ordering Clinician Indication Dosage Frequency Signature (SIG) Comments Components Source Calcium Carbonate Calcium Carbonate 2020-02-22 10:31:00 Yes 500 [facility] Folic Acid Folic Acid 2020-02-22 10:31:00 Yes 1 [facility] Magnesium Oxide (Mag-Oxide) 400 Mg TABLET Magnesium Ox michele (Mag-Oxide) 400 Mg TABLET 2020-02-22 10:31:00 Yes 400 [facility] Oxybutynin Chloride Oxybutynin Chloride 2020-02-22 10:31:00 Yes 5 [facility] Zinc Sulfate Zinc Sulfate 2020-02-22 10:31:00 Yes 220 [facility] Albuterol Sulfate (Proair Hfa Inhaler*) 8.5 Gm INH Alb uterol Sulfate (Proair Hfa Inhaler*) 8.5 Gm INH Yes [facility] Apixaban (Eliquis) 5 Mg TABLET Apixaban (Eliquis) 5 Mg TABLET Yes [address] [facility] Gabapentin Gabapentin Yes 100 [facility] Pantoprazole Sodium (Protonix) 40 Mg TABLET. Pantopr azole Sodium (Protonix) 40 Mg TABLET. Yes 40 [facility] Sertraline Hcl (Zoloft) 50 Mg TABLET Sertraline Hcl (Zoloft) 50 Mg TABLET Yes 100 [facility] Sucralfate Sucralfate Yes 1 [facility] Vital Signs Vital Name Observation Time Observation Value Comments Source Body Temperature 2020-02-22 12:56:00 98.1 [degF] [facility] BMI (Body Mass Index) 2020-02-22 01:54:00 17.1 kg/m2 [facility] Weight 2020-02-20 00:35:00 109 [lb_av] [facility] Procedures Procedure Date / Time Performed Performing Clinician [facility] e CT of abdomen and pelvis without contrast 2020-02-10 00:00:00 [facility] Computed tomography of abdomen and pelvis with contrast 00:00:00 [facility] Computed tomography of chest with contrast 2020-02-08 00:00:00 [facility] Plan of Care Planned Activity Planned Date Details Comments Source Goal Patient referral [code = 3053089 ] [facility] Goal Patient referral [code = 4240488 ] [facility] Goal Patient referral [code = 6159813 ] [facility] Goal Patient referral [code = 8357710 ] [facility] Instructions Urinary Tract Infection - Women [facility] Instructions Wound Care (General) [facility] Encounters Start Date/Time End Date/Time Encounter Type Admission Type Attendi RUST Care Department Encounter ID Source 2020-02-08 01:03:00 2020-02-22 16:56:00 Discharged Inpatient 1 DARRYN BECKMAN [facility] [id number] [facility] 2020-01-31 16:38:00 2020-01-31 19:53:00 Departed Emergency Room [facility] [id number] [facility] Results Test Description Test Time Test Comments Results Result Comments Source CT ABDOMEN/PELVIS W 2020-03-04 02:00:00 [facility] [address] [address] Patient Name: OLEG STEINER MR #: [id number] : 1960 Age/Sex: 59/F Req #: [id number] Adm Physician: Ordered by: DWAYNE PRUITT DO Report #: [id number] Location: ER Room/Bed: Procedure: [id number] CT/CT ABDOMEN/PELVIS W Exam Date: 03/04/20 Exam Time: 0120 REPORT STATUS: Signed EXAM: CT Abdomen and Pelvis with contrast INDICATION:Lower gi bleed COMPARISON: CT abdomen pelvis dated 02/09/2020 and 02/10/2020. TECHNIQUE: Abdomen and pelvis were scanned after administration of IV contrast. Coronal and sagittal reformations were obtained. Routine protocol was performed. Scan was performed during portal venous phase. ORAL CONTRAST: Yes RADIATION DOSE: Total DLP: 234.48 mGy*cm Estimated effective dose: (DLP x 0.015 x size factor) mSv COMPLICATIONS: None FINDINGS: LOWER THORAX: Interval resolution of small bilateral pleural effusions. Minimal dependent atelectasis. Decreased small volume lower pneumomediastinum. HEPATOBILIARY: No focal hepatic lesions. There is intra- and extra- hepatic biliary dilation likely post cholecystectomy reservoir effect. GALLBLADDER: Cholecystectomy. SPLEEN: No splenomegaly. PANCREAS: No focal masses or ductal dilatation. ADRENALS: No adrenal nodules KIDNEYS/URETERS: Decreased mild to moderate right hydronephrosis and minimal left hydronephrosis. Decreased urothelial enhancement on the right. No cystic or solid mass lesions. No stones. GI TRACT: Stable Manuela En Y gastric bypass postsurgical changes. There is mild soft tissue thickening of the distal esophagus and proximal stomach at the surgical site. Partial left hemicolectomy. There is a colon ostomy within the anterior pelvic wall slightly to the left of midline. There has been resection of the rectum. There is no obstruction. PELVIC ORGANS/BLADDER: Status post vulvectomy. Interval placement of a suprapubic catheter. The balloon terminates in the bladder, however the portion of the catheter beyond the balloon appears to extend into or through the urethra, as seen on series 2, image 73 and coronal series 301, image 40. The uterus is not visualized. No adnexal masses. LYMPH NODES: No lymphadenopathy. VESSELS: IVC filter within the infrarenal IVC with struts penetrated through the IVC wall, unchanged. Mild to moderate atherosclerotic changes of the abdominal aorta. PERITONEUM / RETROPERITONEUM: Interval development of small amount pneumoperitoneum in the bilateral upper abdomen, for example adjacent to the liver on series 2, image 13. Small amount of free fluid in the deep pelvis. BONES: Sclerotic changes of the sacrum adjacent to the ulcer likely representing chronic inflammatory changes/chronic osteomyelitis. Multilevel degenerative changes of the lumbar spine. SOFT TISSUES: Chronic sacral ulcer surrounding by extensive soft tissue density likely chronic inflammatory changes. No drainable fluid collections or abscess. Diffuse anasarca. Asymmetric edema in the right lateral thigh subcutaneous tissues. IMPRESSION: Status post Manuela En Y gastric bypass without evidence of obstruction. Decreased trace lower pneumomediastinum. New trace to small amount of pneumoperitoneum in the upper abdomen, which could reflect tracking of the pneumomediastinal air into the abdomen or gastric leak. If clinical concern for leak, recommend further evaluation with fluoroscopy and surgical follow-up. Status post interval s uprapubic catheter placement, with balloon terminating in the bladder. The catheter beyond the balloon appears to extend into or through the urethra in this patient status post vulvectomy. Recommend clinical correlation. Decreased mild to moderate right and minimal left hydronephrosis. Decreased right urothelial enhancement, recommend correlation for possible history of treated UTI. The above findings were discussed with Dr. Pruitt on 03/04/20 at 227 AM. Signed by: Dr. Ratna Parker MD on 03/04/2020 2:30 AM Dictated By: RATNA PARKER MD 9 Transcribed By: SIVAKUMAR on 03/04/20229 COPY TO: DWAYNE PRUITT, Blood leukocytes automated count (number/volume) 2020-02-22 05:44:00 Test Item White Blood Count (test code = 6690-2) 9.28 [facility] count (number/volume)2020-02-22 05:44:00* Test Item Value Reference Range Interpretation Comments Red Blood Count (test code = 789-8) 3.03 [facility] measurement (moles/volume)2020-02-22 05:44:00* Test Item Value Reference Range Interpretation Comments Hemoglobin (test code = 60998-5) 9.3 [facility]Automated blood hematocrit (volume fraction)2020-02-22 05:44:00* Test Item Value Reference Range Interpretation Comments Hematocrit (test code = 4544-3) 29.8 [facility]Autom[facility] erythrocyte mean corpuscular iuatle8602-04-46 05:44:00* Test Item Value Reference Range Interpretation Comments Mean Corpuscular Volume (test code = 787-2) 98.3 [facility] eryth[facility] mean corpuscular hemoglobin (mass per erythrocyte)2020-02-22 05:44:00* Test Item Value Reference Range Interpretation Comments Mean Corpuscular Hemoglobin (test code = 785-6) 30.7 [facility] erythrocyte mean corpuscular hemoglobin concentration measurement (mass/volume)2020-02-22 05:44:00* Test Item Value Reference Range Interpretation Comments Mean Corpuscular Hemoglobin Concent (test code = 786-4) 31.2 [facility] HospitalRDW DvzRh-Dyx3282-38-09 05:44:00* Test Item Value Reference Range Interpretation Comments Red Cell Distribution Width (test code = 54772-1) 15.8 [facility] blood platelet count (count/volume)2020-02-22 05:44:00* Test Item Value Reference Range Interpretation Comments Platelet Count (test code = 777-3) 347 [facility] neutrophil count as percentage of total uhipzqnuun5421-09-68 05:44:00* Test Item Value Reference Range Interpretation Comments Neutrophils (%) (Auto) (test code = 27084-9) 72.4 [facility] lymphocyte count as percentage ot total chzqkdktdq5602-79-09 05:44:00* Test Item Value Reference Range Interpretation Comments Lymphocytes (%) (Auto) (test code = 736-9) 14.9 [facility]Aut[facility]ed blood monocyte count as percentage of total athbaqugqd0038-64-04 05:44:00* Test Item Value Reference Range Interpretation Comments Monocytes (%) (Auto) (test code = 5905-5) 8.8 [facility]Aut[facility]ed blood eosinophil count as percentage of total pjeamjalae1839-37-04 05:44:00* Test Item Value Reference Range Interpretation Comments Eosinophils (%) (Auto) (test code = 713-8) 2.5 [facility]om[facility] basophil count as percentage of total gianwqkuhz2600-90-21 05:44:00* Test Item Value Reference Range Interpretation Comments Basophils (%) (Auto) (test code = 706-2) 0.5 [facility] HospitalFluoroscopic procedure less than one hour pjulmyqx3028-04-48 05:44:00* Test Item Value Reference Range Interpretation Comments IM GRANULOCYTES % (test code = IM GRANULOCYTES %) 0.9 [facility]Automated blood neutrophil count 2020-02-22 05:44:00* Test Item Value Reference Range Interpretation Comments Neutrophils # (Auto) (test code = 751-8) 6.7 [facility] lymphocytes count (number/volume) 2020-02-22 05:44:00* Test Item Value Reference Range Interpretation Comments Lymphocytes # (Auto) (test code = 56876-4) 1.4 [facility]Bl[facility] monocytes automated count (number/volume)2020-02-22 05:44:00* Test Item Value Reference Range Interpretation Comments Monocytes # (Auto) (test code = 742-7) 0.8 [facility] HospitalAutomated blood eosinophil count 2020-02-22 05:44:00* Test Item Value Reference Range Interpretation Comments Eosinophils # (Auto) (test code = 711-2) 0.2 [facility] HospitalAutomated blood basophil count (count/volume)2020-02-22 05:44:00* Test Item Value Reference Range Interpretation Comments Basophils # (Auto) (test code = 704-7) 0.1 [facility] HospitalFluoroscopic procedure less than one hour dqcgdiaj7992-86-09 05:44:00* Test Item Value Reference Range Interpretation Comments Absolute Immature Granulocyte (auto (gem t code = Absolute Immature Granulocyte (auto) 0.08 [facility] sodium measurement (moles/volume)2020-02-22 05:44:00* Test Item Value Reference Range Interpretation Comments Sodium Level (test code = 2951-2) 139 [facility] or plasma potassium measurement (moles/volume)2020-02-22 05:44:00* Test Item Value Reference Range Interpretation Comments Potassium Level (test code = 2823-3) 3.3 [facility] plasma chloride measurement (moles/volume)2020-02-22 05:44:00* Test Item Value Reference Range Interpretation Comments Chloride Level (test code = 2075-0) 106 [facility] Height[facility] or plasma carbon dioxide, total measurement (moles/volume)2020-02-22 05:44:00* Test Item Value Reference Range Interpretation Comments Carbon Dioxide Level (test code = 2028-9) 27 [facility] Height[facility] or plasma anion reg3742-44-47 05:44:00* Test Item Value Reference Range Interpretation Comments Anion Gap (test code = 86116-6) 9.3 [facility] plasma urea nitrogen measurement (mass/volume)2020-02-22 05:44:00* Test Item Value Reference Range Interpretation Comments Blood Urea Nitrogen (test code = 3094-0) 15 [facility] or plasma creatinine measurement (mass/volume)2020-02-22 05:44:00* Test Item Value Reference Range Interpretation Comments Creatinine (test code = 2160-0) 0.47 [facility] plasma urea nitrogen/creatinine mass wdyid1826-36-65 05:44:00* Test Item Value Reference Range Interpretation Comments BUN/Creatinine Ratio (test code = 3097-3) 32 [facility] HospitalEstimated glomerular filtration rate (GFR) ggvtnejcbintg2404-04-58 05:44:00* Test Item Value Reference Range Interpretation Comments Estimat Glomerular Filtration Rate (test code = 855778997) > 60 [facility] HospitalGlucose fmknxoooept3346-83-44 05:44:00* Test Item Value Reference Range Interpretation Comments Glucose Level (test code = KLQ3054) 87 [facility] or plasma calcium measurement (mass/volume)2020-02-22 05:44:00* Test Item Value Reference Range Interpretation Comments Calcium Level (test code = 34690-5) 9.4 [facility] or plasma magnesium measurement (mass/volume)2020-02-22 05:44:00* Test Item Value Reference Range Interpretation Comments Magnesium Level (test code = 74895-0) 1.4 [facility] HospitalRENAL SCAN W/ZLNOM9797-35-89 18:23:00 [facility] [address] [place] [address] Patient Name: OLEG STEINER MR #: [id number] : 1960 Age/Sex: 59/F Req #: [id number] Adm Physician: DARRYN BECKMAN MD Ordered by: SHAYY SOMMER MD Report #: [id number] Location: MED/SURG3 Room/Bed: [facility] Procedure: [id number] NM/RENAL SCAN W /LASIX Exam Date: 02/21/20 [...] on 02/21/2020 6:46 PM Dictat ed By: MARI RODRIGUEZ MD 45 Transcribed By: SIVAKUMAR on 02/21/201845 COPY TO: SHAYY SOMMER MD Capillary blood glucose measurement by glucometer (mass/volume)2020-02-21 11:11:00* Test Item Value Reference Range Interpretation Comments Bedside Glucose (test code = 89289-1) 105 [facility] HospitalRETROGRADE HLXRGWDWZ6991-21-36 11:05:00 [facility] [address] [place], [place] [address] Patient Name: OLEG STEINER MR #: [id number] : 1960 Age/Sex: 59/F Req #: [id number] Adm Physician: DARRYN BECKMAN MD Ordered by: SHAYY SOMMER MD Report #: [id number] [facility] Room/Bed: [facility] Procedure: [id number] DX/RETROGRADE P YELOGRAM Exam Date: 02/21/20 Exam Time: 741 REPORT STATUS: Signed OR Fluoroscopy: IMPRESSION: Fluoroscopy service provided in the OR. Interpretation not req uested. Signed by: Reza George MD on 02/21/2020 11:05 AM Dictated B y: REZA GEORGE MD 04 Transcribed By: SIVAKUMAR on 02/21/20 110 COPY TO: SHAYY SOMMER MD Serum or plasma total bilirubin measurement (mass/volume)2020-02-21 05:40:00* Test Item Value Reference Range Interpretation Comments Total Bilirubin (test code = 1975-2) 0.3 [facility] HospitalFluoroscopic procedure less than one hour pofraonn1806-06-67 05:40:00* Test Item Value Reference Range Interpretation Comments Aspartate Amino Transf (AST/SGOT) (test code = Aspartate Amino Transf (AST/SGOT)) 16 [facility] or plasma alanine aminotransferase measurement (enzymatic activity/volume)2020-02-21 05:40:00* Test Item Value Reference Range Interpretation Comments Alanine Aminotransferase (ALT/SGPT) (test code = 1742-6) 11 [facility] or plasma protein measurement (mass/volume)2020-02-21 05:40:00* Test Item Value Reference Range Interpretation Comments Total Protein (test code = 2885-2) 6.3 [facility] plasma albumin measurement (mass/volume)2020-02-21 05:40:00* Test Item Value Reference Range Interpretation Comments Albumin (test code = 1751-7) 1.9 [facility] HospitalPlasma globulin measurement (mass/volume) 2020-02-21 05:40:00* Test Item Value Reference Range Interpretation Comments Globulin (test code = 71612-0) 4.4 [facility] albumin/globulin mass ustmi7576-66-89 05:40:00* Test Item Value Reference Range Interpretation Comments Albumin/Globulin Ratio (test code = 1759-0) 0.4 [facility] plasma alkaline phosphatase measurement (enzymatic activity/volume)2020-02-21 05:40:00* Test Item Value Reference Range Interpretation Comments Alkaline Phosphatase (test code = 6768-6) 64 [facility] HospitalPhosphorus ipaotmnmdkp6216-85-50 05:20:00 * Test Item Value Reference Range Interpretation Comments Phosphorus Level (test code = NMS2383) 2.5 [facility] HospitalProthrombin time (PT) in platelet poor plasma by coagulation mwoxr6407-37-29 23:09:00* Test Item Value Reference Range Interpretation Comments Prothrombin Time (test code = 5902-2) 14.3 [facility] HospitalINR in Platelet poor plasma by Coagulation tvtfu8055-34-97 23:09:00* Test Item Value Reference Range Interpretation Comments Prothromb Time International Ratio (test code = 6301-6) 1.05 [facility] HospitalFluoroscopic procedure less than one hour tbdedszt0948-49-85 05:10:00* Test Item Value Reference Range Interpretation Comments Differential Total Cells Counted (test code = Differyesica tial Total Cells Counted) 100 [facility] HospitalManual blood neutrophils/100 leukocytes 2020-02-13 05:10:00* Test Item Value Reference Range Interpretation Comments Neutrophils % (Manual) (test code = 71846-5) 77 [facility] HospitalManual blood lymphocytes/100 leukocytes 2020-02-13 05:10:00* Test Item Value Reference Range Interpretation Comments Lymphocytes % (Manual) (test code = 737-7) 19 [facility] blood monocytes/100 leukocytes 2020-02-13 05:10:00* Test Item Value Reference Range Interpretation Comments Monocytes % (Manual) (test code = 744-3) 2 [facility] blood eosinophil count as percentage of total iroriprkit5182-44-28 05:10:00* Test Item Value Reference Range Interpretation Comments Eosinophils % (Manual) (test code = 714-6) 1 [facility] blood myelocytes/100 leukocytes 2020-02-13 05:10:00* Test Item Value Reference Range Interpretation Comments Myelocytes % (test code = 749-2) 1 [facility] platelets count by estimate (number/volume)2020-02-13 05:10:00* Test Item Value Reference Range Interpretation Comments Platelet Estimate (test code = 06194-7) ADEQUATE [facility] HospitalPlatelet ldjqylqjaj4348-13-49 05:10:00* Test Item Value Reference Range Interpretation Comments Platelet Morphology Comment (test code = 44470-1) NORMAL [facility] anisocytosis detection by light dyhjuibxxp1736-04-90 05:10:00* Test Item Value Reference Range Interpretation Comments Anisocytosis (test code = 702-1) SLIGHT [facility] HospitalRB fxdqqnkygb5268-29-06 05:10:00* Test Item Value Reference Range Interpretation Comments Red Cell Morphology Comment (test code = 6742-1) NORMAL [facility] HospitalBlood pawlxzp8547-59-26 16:50:00* Test Item Value Reference Range Interpretation Comments Blood Culture (test code = 83795602) NO GROWTH AFTER 5 DAYS, FINAL REPORT [facility] HospitalMODIFIED BA. EAXKCXZ9962-32-77 09:39:[address] [address] Patient Name: OLEG STEINER MR #: [id number] : 1960 Age/Sex: 59/F Req #: [id number] Adm Physician: DARRYN BECKMAN MD Ordered by: Denis Johnson NP Report #: [id number] Location: ICU Room/Bed: ICU 189- Procedure: [id number] DX/MODIFIED BA. SWALLOW Exam Date: 02/10/20 Exam [...] for subglottic tracheal aspiration. Please refer to [facility] pathology notes for further details. Signed by: Dr. Steve Wong MD on 02/11/2020 9:41 AM Dictated By: STEVE WONG MD 0 Transcribed By: SIVAKUMAR on 02/11/20940 COPY TO: DENIS JOHNSON TRIM MOUNTER CHEST SINGLE (PORTABLE)2020-02-11 09:22:00 [address] [address] Patient Name: OLEG STEINER MR #: [id number] : 1960 Age/Sex: 59/F Req #: [id number] Adm Physician: DARRYN BECKMAN MD Ordered by: QUENTIN FARIA MD Report #: [id number] Location: ICU Room/Bed: ICU 189 Procedure: [id number] DX/CHEST SINGL E (PORTABLE) Exam Date: 02/11/20 [...] COPY TO: QUENTIN FARIA MD CT ABDOMEN/PELVIS HJ8711-31-77 20:41:00 [address] [place] [address] Patient Name: OLEG STEINER MR #: [id number] : 1960 Age/Sex: 59/F Req #: [id number] Adm Physician: DARRYN BECKMAN MD Ordered by: JOSE ANGEL LEDEZMA MD Report #: [id number] Location: ICU Room/Bed: ICU [facility] Procedure: [id number] CT /CT ABDOMEN/PELVIS WO Exam Date: 02/10/20 Exam Time: 1945 REPORT STATUS: Signed EXAM: CT Abdomen and [...] By: SIVAKUMAR on 02/10/202051 COPY TO: JOSE AGNEL LEDEZMA MD Bacterial urine lfmyhhe6056-55-28 10:00:00* Test Item Value Reference Range Interpretation Comments Urine Culture (test code = 630-4) ENTEROCOCCUS FAECALIS-VRE [facility] SINGLE (PORTABLE)2020-02-10 06:40:00 [address] [place] [address] Patient Name: OLEG STEINER MR #: [id number] : 1960 Age/Sex: 59/F Req #: [id number] Adm Physician: DARRYN BECKMAN MD Ordered by: QUENTIN FARIA MD Report #: [id number] Location: ICU Room/Bed: ICU [facility] Procedure: [id number] DX /CHEST SINGLE (PORTABLE) Exam Date: 02/10/20 [...] MD Fluoroscopic procedure less than one hour ovyjvqfv3882-84-99 03:00:00* Test Item Value Reference Range Interpretation Comments Coronavirus (PCR) (test code = Coronavirus (PCR)) NOT DETECTED [facility] plasma trough vancomycin level at trough (mass/volume)2020-02-09 22:05:00* Test Item Value Reference Range Interpretation Comments Vancomycin Level Trough (test code = 4092-3) 9.3 [facility] I5872-36-81 09:32:00 [facility] [address] [address] Patient Name: OLEG STEINER MR #: [id number] : 1960 Age/Sex: 59/F Req #: [id number] Adm Physician: DARRYN BECKMAN MD Ordered by: QUENTIN FARIA MD Report #: [id number] Location: ICU Room/Bed: ICU [facility] Procedure: [id number] CT /CT ABDOMEN/PELVIS W Exam Date: 02/09/20 [...] COMPLICATIONS: None FINDINGS: LINES and T UBES: Arazia catheter within the urinary bladder. LOWER THORAX: [...] collections or abscess. Signed by : Dr. Connie Carter M.D. on 02/09/2020 10:27 AM Dictated By: JEANIE CARTER MD 1027 COPY TO: QUENTIN FARIA MD Automated reticulocyte count as percentage of total pfprfbssffyq9183-47-62 04:59:00* Test Item Value Reference Range Interpretation Comments Percent Reticulocyte Count (test code = 70032-5) 1.1 [facility] one hour jgmbgdnq9042-04-12 04:59:00* Test Item Value Reference Range Interpretation Comments Hemoglobin A1c Percent (test code = Hemoglobin A1c Percent) 4.5 [facility] iron measurement (mass/volume)2020-02-09 04:59:00* Test Item Value Reference Range Interpretation Comments Iron Level (test code = 2498-4) 23 [facility] iron binding capacity measurement (mass/volume)2020-02-09 04:59:00* Test Item Value Reference Range Interpretation Comments Total Iron Binding Capacity (test code = 2500-7) 147 [facility] iron saturation measurement (mass fraction)2020-02-09 04:59:00* Test Item Value Reference Range Interpretation Comments Percent Iron Saturation (test code = 2502-3) 16 [facility] plasma transferrin measurement (mass/volume)2020-02-09 04:59:00* Test Item Value Reference Range Interpretation Comments Transferrin (test code = 3034-6) 105 [facility] plasma ferritin measurement (mass/volume)2020-02-09 04:59:00* Test Item Value Reference Range Interpretation Comments Ferritin (test code = 2276-4) 718.60 [facility]12) measurement (mass/volume)2020-02-09 04:59:00* Test Item Value Reference Range Interpretation Comments Vitamin B12 Level (test code = 74982-8) 1359 [facility] thyrotropin measurement by detection limit <= 0.005 miu/l (units/volume)2020-02-09 04:59:00* Test Item Value Reference Range Interpretation Comments Thyroid Stimulating Hormone (TSH) (test code = 83717-9) 1.963 [facility] folate measurement (mass/volume)2020-02-09 04:59:00* Test Item Value Reference Range Interpretation Comments Folate (test code = 2284-8) 12.6 [facility] creatine kinase measurement (enzymatic activity/volume)2020-02-08 23:15:00* Test Item Value Reference Range Interpretation Comments Creatine Kinase (test code = 2157-6) 10 [facility] creatine kinase MB measurement (mass/volume)2020-02-08 23:15:00* Test Item Value Reference Range Interpretation Comments Creatine Kinase MB (test code = 80661-6) 1.60 [facility] measurement by highly sensitive enzyme jwpulsciywh0208-61-31 23:15:00* Test Item Value Reference Range Interpretation Comments Troponin I (test code = 87936-5) < 0.001 [facility] than one hour wmxhixjk8432-33-61 04:30:00* Test Item Value Reference Range Interpretation Comments Lactic Acid Level (test code = Lactic Acid Level) 1.1 [facility] [id number] 03:17:00 [facility] [address] [address] Patient Name: OLEG STEINER MR #: [id number] : 1960 Age/Sex: 59/F Req #: [id number] Adm Physician: DARRYN BECKMAN MD Ordered by: QUENTIN FARAI MD Report #: [id number] Location: ICU Room/Bed: ICU [facility] Procedure: [id number] CT /CT CHEST W Exam Date: 02/08/20 [...] Total DLP: 372 mGy*cm Dose modulation, iterat jsoe reconstruction, and/or weight based adjustment of the [...] QUENTIN FARIA MD CHEST SINGLE (PORTABLE)2020-02-08 02:50:[address] [address] Patient Name: OLEG STEINER MR #: [id number] : 1960 Age/Sex: 59/F Req #: [id number] Adm Physician: DARRYN BECKMAN MD Ordered by: MARIA C BUTLER MD Report #: [id number] Location: ICU Room/Bed: ICU [facility] Procedure: 042 5-0001 DX/CHEST SINGLE (PORTABLE) [...] 02 54 Transcribed By: SIVAKUMAR on 02/08/20 0254 COPY TO: MARIA C BUTLER MD Bacterial blood tshqvbq0282-55-37 00:01:00* Test Item Value Reference Range Interpretation Comments Blood Culture (test code = 600-7) STREP SPECIES, GAMMA-HEMOLYTIC [facility] SINGLE (PORTABLE)2020-02-07 23:52:00 [address] [address] Patient Name: OLEG STEINER MR #: [id number] : 1960 Age/Sex: 59/F Req #: [id number] Adm Physician: Ordered by: MARIA C BUTLER MD Report #: [id number] Location: ER Room/Bed: Procedure: 0424 -0053 DX/CHEST [...] PARKER MD Electronically S igned By: RATNA PARKER MD on 02/07/20 5687 Transcribed By: SIVAKUMAR on 02/07/20 23 55 COPY TO: MARIA C BUTLER MD Urine color determination 2020-02-07 22:40:00* Test Item Value Reference Range Interpretation Comments Urine Color (test code = 5778-6) BROWN [facility] rtxafyc8604-00-27 22:40:00* Test Item Value Reference Range Interpretation Comments Urine Clarity (test code = 53465-9) TURBID [facility] of Urine by Test strip 2020-02-07 22:40:00* Test Item Value Reference Range Interpretation Comments Urine Specific [place] (test code = 5811-5) 1.025 [facility] by automated test zaqzq1367-71-02 22:40:00* Test Item Value Reference Range Interpretation Comments Urine pH (test code = 81790-3) 6.5 [facility] leukocyte esterase detection by odofvcvv9334-77-64 22:40:00* Test Item Value Reference Range Interpretation Comments Urine Leukocyte Esterase (test code = 5799-2) LARGE [facility] nitrite qbdqxynas4302-47-92 22:40:00* Test Item Value Reference Range Interpretation Comments Urine Nitrite (test code = 82855-9) NEGATIVE [facility] protein measurement by test strip (mass/volume)2020-02-07 22:40:00* Test Item Value Reference Range Interpretation Comments Urine Protein (test code = 5804-0) 3+ [facility] glucose jgmtateux2524-64-01 22:40:00* Test Item Value Reference Range Interpretation Comments Urine Glucose (UA) (test code = 2349-9) NEGATIVE [facility] ketones detection by automated test fbfbe2986-75-09 22:40:00* Test Item Value Reference Range Interpretation Comments Urine Ketones (test code = 05443-6) NEGATIVE [facility] urobilinogen measurement by test strip (mass/volume)2020-02-07 22:40:00* Test Item Value Reference Range Interpretation Comments Urine Urobilinogen (test code = 73355-7) 0.2 [facility] total bilirubin measurement (mass/volume)2020-02-07 22:40:00* Test Item Value Reference Range Interpretation Comments Urine Bilirubin (test code = 1978-6) NEGATIVE [facility] erythrocytes gaellsirs8385-51-13 22:40:00* Test Item Value Reference Range Interpretation Comments Urine Blood (test code = 34650-6) 3+ [facility] sediment leukocyte count by microscopy (number/high power field)2020-02-07 22:40:00* Test Item Value Reference Range Interpretation Comments Urine WBC (test code = 5821-4) >50 [facility]Erythrocytes detection in urine sediment by light uqaqynpudc8066-15-69 22:40:00* Test Item Value Reference Range Interpretation Comments Urine RBC (test code = 96609-5) >50 [facility]Bacteria detection in urine sediment by light denfyqqkrn3565-21-60 22:40:00* Test Item Value Reference Range Interpretation Comments Urine Bacteria (test code = 23057-2) MANY [facility] HospitalEpithelial cells detection in urine sediment by light ndxmyyoxgu8832-56-70 22:40:00* Test Item Value Reference Range Interpretation Comments Urine Epithelial Cells (test code = 46862-0) MODERATE [facility] urine isgnpqq1005-27-14 22:40:00* Test Item Value Reference Range Interpretation Comments Urine Culture (test code = 630-4) ENTEROCOCCUS FAECALIS-VRE [facility] HospitalActivated partial thromboplastin time (aPTT) in platelet poor plasma by coagulation oqhhl0142-38-45 22:20:00* Test Item Value Reference Range Interpretation Comments Activated Partial Thromboplast Time (test code = 19344-8) 40.4 [facility] HospitalInfluenza virus A and B antigen identification by nladqtwsfxbebuaswa8347-82-06 22:20:00* Test Item Value Reference Range Interpretation Comments Influenza Virus Types A,B Antigen (test code = 08912-7) NEGATIVE [facility]reptococcus pyogenes antigen detection in qbjwxi4130-98-63 22:20:00* Test Item Value Reference Range Interpretation Comments Group A Streptococcus Screen (test code = 87020-1) NEGATIVE [facility] urine dxxwbmf6519-48-21 17:21:00* Test Item Value Reference Range Interpretation Comments Urine Culture (test code = 630-4) ESCHERICHIA COLI [facility] HospitalURINALYSIS AHANEYTG4241-60-95 15:52:00* Test Item Value Reference Range Interpretation [...] MUCU) FEW #/LPF FEW Urine Source? CatheterURINALYSIS AEXNZHTG7575-86-16 15:51:00* Test Item Value Reference Range Interpretation [...] A UA PH DIPSTICK (test code = MGAED) 6.0 5.0-8.0 UA PROTEIN DIPSTICK (test code [...] Source? Catheter- CONT INJ THERESE/ JAM/ CLARA/ [id number] 10:27:00 FAX: Angelo Hodges MD [phone] [place]: St: REG Name: OLEG UMANZ[facility] : [birth year] Age/S: 58/F [address] [facility] Unit #: [id number] Loc: [place] [address] Phys: Angelo Hodges MD Acct: [id number] Dis Date: Status: REG CLI PHONE #: [phone] Exam Date: 05/29/2019 1013 FAX #: [phone] Reason: VERIFY G-TUBE PLACEMENT EXAMS: CPT CODE: [id number] CONT INJ / JAM/ JJ/ GG [address]456 HISTORY: VERIFY G-TUBE PLACEMENT TECHNIQUE: AP abdomen [...] Angelo Hodges MD Techno logist: Tammie Mijares(R); Merelexi Olivas RT(R) Trnscrd Date/Time /By: 05/29/2019 (9742) : By: [email or web address] Orig Print D/T: S: 05/29/2019 ( 9162) PAGE 1 Signed Report - XR ABDOMEN AP 1 [id number] 13:02:00 FAX: Angelo Hodges MD [phone] [place]: St: REG Name: OLEG [facility]MANZ[facility] : [birth year] Age/S: 58/F [address] [facility] Unit #: [id number] Loc: [place] [address] Phys: Angelo Hodges MD Acct: [id number] Dis Date: Status: REG CLI PHONE #: [phone] Exam Date: 05/23/2019 1250 FAX #: [phone] Reason: peg tube placement EXAMS: CPT CODE: [id number] XR ABDOMEN AP 1 V 85834 HISTORY: peg tube placement TECHNIQUE: AP abdomen [...] By: [email or web address] Orig Print D/T: S: 05/23/2019 (2128) PAGE 1 Signed Report [id number] 16:59:00* Test Item Value Reference Range Interpretation Comments GLUBED (test code = GLUBED) 84 mg/dL 74-106 N Performed by certified radio operator ground at [facility] BASIC METABOLIC QMXPB5297 08:19:00* Test Item Value Reference Range Interpretation [...] code = CA) 9.1 mg/dL 8.5-10.1 N [id number] 07:35:00* Test Item Value Reference Range Interpretation Comments GLUBED (test code = GLUBED) 98 mg/dL 74-106 N Performed by certified radio operator ground at [facility] CBC W/AUTO [id number] 07:32:00* Test Item Value Reference Range Interpretation [...] code = NRBC#) 0.00 K/mm3 0.0-0.1 N [id number] 21:34:00* Test Item Value Reference Range Interpretation Comments GLUBED (test code = GLUBED) 91 mg/dL 74-106 N Performed by certified radio operator ground at [facility] BDGIHG0613-55-90 11:32:00* Test Item Value Reference Range Interpretation Comments GLUBED (test code = GLUBED) 86 mg/dL 74-106 N Performed by certified radio operator ground at [facility] BASIC METABOLIC [id number] 05:30:00* Test Item Value Reference Range Interpretation [...] CA) 8.9 mg/dL 8.5-10.1 N BASIC METABOLIC [id number] 05:23:00* Test Item Value Reference Range Interpretation [...] code = CA) mg/dL 8.5-10.1 CBC W/AUTO [id number] 04:56:00* Test Item Value Reference Range Interpretation [...] DIFF REQUIRED (test code = MDIFF) NO [id number] 17:39:00* Test Item Value Reference Range Interpretation Comments GLUBED (test code = GLUBED) 101 mg/dL 74-106 N Performed by certified radio operator ground at [facility] BYQXZW1107-28-11 17:39:00* Test Item Value Reference Range Interpretation Comments GLUBED (test code = GLUBED) 99 mg/dL 74-106 N Performed by certified radio operator ground at [facility] BASIC METABOLIC [id number] 09:34:00* Test Item Value Reference Range Interpretation [...] CA) 8.8 mg/dL 8.5-10.1 N BASIC METABOLIC [id number] 09:29:00* Test Item Value Reference Range Interpretation [...] code = CA) mg/dL 8.5-10.1 CBC W/AUTO [id number] 09:21:00* Test Item Value Reference Range Interpretation [...] DIFF REQUIRED (test code = MDIFF) NO [id number] 05:50:00* Test Item Value Reference Range Interpretation Comments GLUBED (test code = GLUBED) 75 mg/dL 74-106 N Performed by certified radio operator ground at [facility] [id number] 20:31:00* Test Item Value Reference Range Interpretation Comments GLUBED (test code = GLUBED) 94 mg/dL 74-106 N Performed by certified radio operator ground at [facility] - XR SACRUM/COCCYX 2 + [id number] 13:55:00 FAX: Fabienne Pinto MD [phone] [place]: B St: ADM FAX: Jordy Martinez DO [phone] FAX: Kwesi Goss NP [phone] Name: OLEG STEINER [facility] : 1960 Age/S: 58/F [address] Unit #: [id number] Loc: [place] [address] Phys: Kwesi Ivory NP Acct: [id number] Dis Date: Status: ADM IN ONE #: [phone] Exam Date: 05/10/2019909 FAX #: [phone] Reason: r/o osteomyelitis EXAMS: CPT CODE: [id number] XR SACRUM/COCCYX 2 + V 37257 CLINICAL HISTO RY: r/o osteomyelitis TECHNIQUE: 4 [...] without contrast can provide further evaluation. at 1353 Reported and signed by: Ted Sanchez MD CC: Fabienne Osorio MD; Jordy Gambino; Kwesi Ivory NP Technologist: RT XOCHITL( Eduarda) Latricia Date/Time/By: 05/10/2019 (0618) : By: [email or web address] Orig Print D/T: S: 05/10/2019 (5087) PAGE 1 Signed Report CBC W/AUTO [id number] 09:52:00* Test Item Value Reference Range Interpretation [...] (test code = MDIFF) NO BASIC METABOLIC [id number] 09:47:00* Test Item Value Reference Range Interpretation [...] CA) 8.4 mg/dL 8.5-10.1 L BASIC METABOLIC [id number] 09:41:00* Test Item Value Reference Range Interpretation [...] CALCIUM (test code = CA) mg/dL 8.5-10.1 [id number] 01:35:00* Test Item Value Reference Range Interpretation Comments GENTAMICIN (test code = GENT) 4.2 mg/mL 4-8.0 N GENTAMICIN TOXIC LEVEL: >12 UG/ML [id number] 13:09:00* Test Item Value Reference Range Interpretation Comments MAGNESIUM (test code = MAG) 1.7 mg/dL 1.8-2.4 L BASIC METABOLIC [id number] 06:41:00* Test Item Value Reference Range Interpretation Comments SODIUM (test code = NA) 144 mmol/L 136-145 N POTASSIUM (test code = K) 2.9 mmol/L 3.5-5.1 L Re sults called to [id number] by DAYANARA 05/09/19 0641Critical results verified and [...] CA) 7.9 mg/dL 8.5-10.1 L CBC W/AUTO [id number] 06:08:00* Test Item Value Reference Range Interpretation [...] (test code = MDIFF) NO BASIC METABOLIC [id number] 06:00:00* Test Item Value Reference Range Interpretation [...] = FESAT) 19.54 % 13-45 N VITAMIN [id number] 06:00:00* Test Item Value Reference Range Interpretation Comments VITAMIN B12 (test code = VITB12) 585 pg/mL 193-986 N FOLIC [id number] 06:00:00* Test Item Value Reference Range Interpretation Comments FOLIC ACID (test code = FOL) 28.5 ng/mL 3.10-17.50 H THYROID STIMULATING [id number] 06:00:00* Test Item Value Reference Range Interpretation Comments THYROID STIMULATING HORMONE (test code = TSH) 4.190 uIU/mL 0.36-3.7 4 H TSH REFERENCE RANGES: EUTHYROID: 0.35 - 4.3 mIU/mL HYPO : > 5.5 mIU/mL HYPER : < 0.35 mIU/mL [id number] 06:00:00* Test Item Value Reference Range Interpretation Comments FERRITIN (test code = MINO) 1612 ng/mL 8-388 H BASIC METABOLIC [id number] 05:06:00* Test Item Value Reference Range Interpretation [...] (test code = FESAT) % 13-45 VITAMIN [id number] 05:06:00* Test Item Value Reference Range Interpretation Comments VITAMIN B12 (test code = VITB12) pg/mL 193-986 FOLIC [id number] 05:06:00* Test Item Value Reference Range Interpretation Comments FOLIC ACID (test code = FOL) ng/mL 3.10-17.50 THYROID STIMULATING [id number] 05:06:00* Test Item Value Reference Range Interpretation Comments THYROID STIMULATING HORMONE (test code = TSH) uIU/mL 0.36-3.7 4 [id number] 05:06:00* Test Item Value Reference Range Interpretation Comments FERRITIN (test code = MINO) ng/mL 8-388 CBC W/AUTO [id number] 04:55:00* Test Item Value Reference Range Interpretation [...] REQUIRED (test code = MDIFF) NO LACTIC [id number] 00:14:00* Test Item Value Reference Range Interpretation Comments LACTIC ACID (test code = LACT) 1.2 mmol/L 0.4-1.9 N - CTA [id number] 23:23:00 Name: OLEG STEINER [facility] : 1960 Age/S: 58 / F [address] [facility] Unit #: [id number] Loc: [place] [address] Phys: Kiel Zelaya MD Acct: [id number] Dis Date: Status: REG ER PHONE #: [phone] Exam Date: 05/06/20192251 FAX #: [phone] Reason: sob r/o pe EXAMS: CPT CODE: [id number] CTA CHEST 26527 REASON FOR EXAM: sob r/o pe EXAM [...] Signed Report (CONTINUED) N curry: OLEG STEINER [facility] : 0 1960 Age/S: 58 / F [address] [facility] Unit #: [id number] Loc: [place], [place] [address] Phys: Aaron Zelaya MD Acct: [id number] Dis D ate: Status: REG ER PHONE #: Exam Date: 05/06/20192251 FAX #: [phone] Reason: sob r/o pe EXAMS: CPT CODE: [id number] CTA CHEST 14474 <Continued> Lymph nodes: No axillary, internal mammary, [...] by telephone at 11:20 PM May 06 at 2323 Reported and signed by: Ted Sanchez MD CC: Kiel Ware MD Technologist:KERRI ARCINIEGA; ... CTDI: DLP: Trnscb Date/Time: 05/06/2019 (8261) [email or web address] [email or web address] Orig Print D/T: S: 05/06/2019 (8893) PAGE 2 Signed Report URINALYSIS [id number] 22:20:00* Test Item Value Reference Range Interpretation [...] HPF NONE A Urine Source? Clean CatchURINALYSIS [id number] 22:16:00* Test Item Value Reference Range Interpretation [...] HPF NONE Urine Source? Clean CatchB-TYPE NATRIURETIC [id number] 22:15:00* Test Item Value Reference Range Interpretation [...] taking into account the patients history. PROTHROMBIN [id number] 22:05:00* Test Item Value Reference Range Interpretation [...] (2.5-3.5) IS PATIENT ON ANTICOAGULANTS? NTHROMBOPLASTIN TIME [id number] 22:05:00* Test Item Value Reference Range Interpretation Comments THROMBOPLASTIN TIME PARTIAL (test code = PTT) 24.7 seconds 25.0-36. 5 L IS PATIENT ON ANTICOAGULANTS? NCBC W/AUTO [id number] 22:00:00* Test Item Value Reference Range Interpretation [...] = MDIFF) NO, ONLY SCAN NEEDED DIFFERENTIAL [id number] 22:00:00* Test Item Value Reference Range Interpretation Comments STAIN ACCEPTABILITY (test code = STN ACCEPTABLE) STAIN ACCEPTABLE POIKILOCYTOSIS (test code = POIK) 1+ ANISOCYTOSIS (test code = ANISO) 1+ PLATELET ESTIMATE (test code = PLTEST) ADEQUATE PLATELET MORPHOLOGY (test code = PLTMORPH) NORMAL BASIC METABOLIC [id number] 22:00:00* Test Item Value Reference Range Interpretation [...] CA) 8.6 mg/dL 8.5-10.1 N HEPATIC FUNCTION [id number] 22:00:00* Test Item Value Reference Range Interpretation [...] reference range due to change in reagent. [id number] 22:00:00* Test Item Value Reference Range Interpretation Comments TROPONIN-I (test code = TROPI) <0.015 ng/mL 0-0.045 N BASIC METABOLIC [id number] 21:50:00* Test Item Value Reference Range Interpretation [...] code = CA) mg/dL 8.5-10.1 HEPATIC FUNCTION [id number] 21:50:00* Test Item Value Reference Range Interpretation [...] TOTAL (test code = ALKP) IUnit/L 45-117 [id number] 21:50:00* Test Item Value Reference Range Interpretation Comments TROPONIN-I (test code = TROPI) ng/mL 0-0.045 CBC W/AUTO [id number] 21:39:00* Test Item Value Reference Range Interpretation [...] = MDIFF) NO, ONLY SCAN NEEDED DIFFERENTIAL [id number] 21:39:00* Test Item Value Reference Range Interpretation Comments STAIN ACCEPTABILITY (test code = STN ACCEPTABLE) CABOT RINGS (test code = CAB) MORPHOLOGY COMMENT (test code = MOC) PLATELET ESTIMATE (test code = PLTEST) PLATELET MORPHOLOGY (test code = PLTMORPH) CBC W/AUTO [id number] 21:39:00* Test Item Value Reference Range Interpretation [...] = MDIFF) NO, ONLY SCAN NEEDED DIFFERENTIAL [id number] 21:39:00* Test Item Value Reference Range Interpretation Comments STAIN ACCEPTABILITY (test code = STN ACCEPTABLE) MORPHOLOGY COMMENT (test code = MOC) PLATELET ESTIMATE (test code = PLTEST) PLATELET MORPHOLOGY (test code = PLTMORPH) CBC W/AUTO [id number] 21:39:00* Test Item Value Reference Range Interpretation [...] = MDIFF) NO, ONLY SCAN NEEDED DIFFERENTIAL [id number] 21:39:00* Test Item Value Reference Range Interpretation Comments STAIN ACCEPTABILITY (test code = STN ACCEPTABLE) MORPHOLOGY COMMENT (test code = MOC) PLATELET ESTIMATE (test code = PLTEST) PLATELET MORPHOLOGY (test code = PLTMORPH) CBC W/AUTO [id number] 21:39:00* Test Item Value Reference Range Interpretation [...] = MDIFF) NO, ONLY SCAN NEEDED DIFFERENTIAL [id number] 21:39:00* Test Item Value Reference Range Interpretation Comments STAIN ACCEPTABILITY (test code = STN ACCEPTABLE) CABOT RINGS (test code = CAB) MORPHOLOGY COMMENT (test code = MOC) PLATELET ESTIMATE (test code = PLTEST) PLATELET MORPHOLOGY (test code = PLTMORPH) - XR CHEST 1 [id number] 21:30:00 FAX: Kiel Mathew [phone] [place]: St: REG Name: Atul MALIAOLEG [facility] : [birth year] Age/S: 58/F [address] [facility] Unit #: [id number] Loc: [place] [address] Phys: Kiel Zelaya MD Acct: [id number] Dis Date: Status: REG ER PHONE #: [phone] Exam Date: 05/06/20192119 FAX #: [phone] Reason: CODE SEPSIS EXAMS: CPT CODE: [id number] XR CHEST 1 V 82459 REASON FOR EXAM: CODE SEPSIS Exam Order Date: 05/06/2019 9:11 PM Ordering MMeaghan: Kiel Zelaya MD PROCEDURE: - XR CHEST [...] RT(R) Trnscrd Date/Time/By: 05/06/2019 (2129) : By: [email or web address] [facility] Print D/T: S: 05/06/2019 (2132) PAGE 1 [...] into account the patients history. BASIC METABOLIC [id number] 13:14:00* Test Item Value Reference Range Interpretation [...] CA) 8.3 mg/dL 8.5-10.1 L BASIC METABOLIC [id number] 13:07:00* Test Item Value Reference Range Interpretation [...] CALCIUM (test code = CA) mg/dL 8.5-10.1 [id number] 12:16:00* Test Item Value Reference Range Interpretation Comments GLUBED (test code = GLUBED) 92 mg/dL 74-106 N Performed by certified radio operator ground at [facility] [id number] 06:08:00* Test Item Value Reference Range Interpretation Comments GLUBED (test code = GLUBED) 105 mg/dL 74-106 N Performed by certified radio operator ground at [facility] [id number] 20:38:00* Test Item Value Reference Range Interpretation Comments GLUBED (test code = GLUBED) 103 mg/dL 74-106 N Performed by certified radio operator ground at [facility] [id number] 17:39:00* Test Item Value Reference Range Interpretation Comments GLUBED (test code = GLUBED) 90 mg/dL 74-106 N Performed by certified radio operator ground at [facility] [id number] 12:53:00* Test Item Value Reference Range Interpretation Comments GLUBED (test code = GLUBED) 92 mg/dL 74-106 N Performed by certified radio operator ground at [facility] BASIC METABOLIC [id number] 09:00:00* Test Item Value Reference Range Interpretation [...] CA) 7.3 mg/dL 8.5-10.1 L BASIC METABOLIC [id number] 08:53:00* Test Item Value Reference Range Interpretation [...] code = CA) mg/dL 8.5-10.1 CBC W/O [id number] 08:42:00* Test Item Value Reference Range Interpretation [...] code = MPV) 10.5 fL 6.7-11.0 N [id number] 07:20:00* Test Item Value Reference Range Interpretation Comments GLUBED (test code = GLUBED) 108 mg/dL 74-106 H Performed by certified radio operator ground at [facility] [id number] 05:17:00* Test Item Value Reference Range Interpretation Comments MAGNESIUM (test code = MAG) 1.9 mg/dL 1.8-2.4 N [id number] 21:34:00* Test Item Value Reference Range Interpretation Comments GLUBED (test code = GLUBED) 105 mg/dL 74-106 N Performed by certified radio operator ground at [facility] [id number] 17:16:00* Test Item Value Reference Range Interpretation Comments GLUBED (test code = GLUBED) 110 mg/dL 74-106 H Performed by certified radio operator ground at [facility] [id number] 17:16:00* Test Item Value Reference Range Interpretation Comments GLUBED (test code = GLUBED) 102 mg/dL 74-106 N Performed by certified radio operator ground at [facility] [id number] 12:29:00* Test Item Value Reference Range Interpretation Comments GLUBED (test code = GLUBED) 91 mg/dL 74-106 N Performed by certified radio operator ground at [facility] BASIC METABOLIC [id number] 09:18:00* Test Item Value Reference Range Interpretation [...] code = CA) 7.8 mg/dL 8.5-10.1 L [id number] 09:18:00* Test Item Value Reference Range Interpretation Comments PHOSPHORUS (test code = PHOS) 3.8 mg/dL 2.5-4.9 N [id number] 09:18:00* Test Item Value Reference Range Interpretation Comments MAGNESIUM (test code = MAG) 1.6 mg/dL 1.8-2.4 L [id number] 22:46:00* Test Item Value Reference Range Interpretation Comments GLUBED (test code = GLUBED) 98 mg/dL 74-106 N Performed by certified radio operator ground at [facility] [id number] 17:02:00* Test Item Value Reference Range Interpretation Comments GLUBED (test code = GLUBED) 83 mg/dL 74-106 N Performed by certified radio operator ground at [facility] [id number] 12:58:00* Test Item Value Reference Range Interpretation Comments GLUBED (test code = GLUBED) 79 mg/dL 74-106 N Performed by certified radio operator ground at [facility] HGB [id number] 12:27:00* Test Item Value Reference Range Interpretation Comments HEMOGLOBIN (test code = HGB) 12.2 gram/dL 11.5-15.5 N HEMATOCRIT (test code = HCT) 37.0 % 36.0-46.0 N WOUNDCARE IN ROOM CHECK AFTER 15 MIN @V.LAB.SP3 04/06/[id number] 07:28:00* Test Item Value Reference Range Interpretation Comments GLUBED (test code = GLUBED) 91 mg/dL 74-106 N Performed by certified radio operator ground at [facility] [id number] 22:00:00* Test Item Value Reference Range Interpretation Comments GLUBED (test code = GLUBED) 86 mg/dL 74-106 N Performed by certified radio operator ground at [facility] CBC W/AUTO [id number] 21:29:00* Test Item Value Reference Range Interpretation [...] code = NRBC#) 0.00 K/mm3 0.0-0.1 N [id number] 16:46:00* Test Item Value Reference Range Interpretation Comments GLUBED (test code = GLUBED) 93 mg/dL 74-106 N Performed by certified radio operator ground at [facility] [id number] 12:02:00* Test Item Value Reference Range Interpretation Comments GLUBED (test code = GLUBED) 85 mg/dL 74-106 N Performed by certified radio operator ground at [facility] [id number] 09:01:00* Test Item Value Reference Range Interpretation Comments MAGNESIUM (test code = MAG) 1.8 mg/dL 1.8-2.4 N SPECIMEN COMMENTS: please add on to AM labBASIC METABOLIC [id number] 06:23:00* Test Item Value Reference Range Interpretation [...] code = CA) 7.4 mg/dL 8.5-10.1 L [id number] 06:17:00* Test Item Value Reference Range Interpretation Comments GLUBED (test code = GLUBED) 88 mg/dL 74-106 N Performed by certified radio operator ground at [facility] BASIC METABOLIC [id number] 06:17:00* Test Item Value Reference Range Interpretation [...] code = CA) mg/dL 8.5-10.1 CBC W/O [id number] 06:13:00* Test Item Value Reference Range Interpretation [...] code = MPV) 10.9 fL 6.7-11.0 N [id number] 23:25:00* Test Item Value Reference Range Interpretation Comments GLUBED (test code = GLUBED) 91 mg/dL 74-106 N Performed by certified radio operator ground at [facility] [id number] 16:52:00 RUN DATE: 04/04/19 [facility] PAGE 1 RUN TIME: 1652 Specimen Inqui ry RUN USER: INTERFACE PATIENT: OLEG STEINER ACCT #: [id number] LOC: ROLAND #: [id number] AGE/SX: 58/F ROOM: 2040 RE03/09/19REG DR: Precious Teague MD : 56 BED: A DIS: STATUS: ADM IN TLOC: SPEC #: [id number] RECD: 04/03/19 STATUS: SIVAN REQ #: [id number] THOMPSON: 04/02/19- [facility] DR: Lanre Rucker MD ENTERED: 04/03/19 SP TYPE: STOMACH OTHR DR: Sarah Moreno MD,Yosi Taylor MD, Thandavarajan M Quraishi, Mohammed A MD Qurashi, Nadeem MD Rasheed, Amir A MDORDERED: GROSS COPIES TO: Lanre Rucker MD [address] [place] [address] Sarah Moreno MD [address] [place] [address] Jose Angel Spain MD [address] [place] [id number] Yosi Mendez DO [address] [place] [address] Talisha Ahn [address] [place] [address] Sanjay Fox MD [address] [facility] [place] [address] [place] [address] [place] [address] [id number] CONTINUED ON NEXT PAGE RUN D ATE: 04/04/19 [facility] Alona GARCÍA GE 2 RUN TIME: 1652 Specimen Inquiry RUN USER: INTERFACE SPEC #: [id number] PATIENT: OLEG STEINER #[id number] (Continued) COPIES TO: (Continued) [place] [address] [facility] [address] [place] [address] PROCEDUR ES: GROSS (04/04/19-133) TISSUES: GASTRIC ULCER - BX CLINICAL HISTORY COLLECTION DATE: 04/02/19 HEMATEMESIS, DARK STOOLS FINAL DI AGNOSIS Gastric pouch ulcer, biopsy: GASTRIC MUCOSA WITH MILD CHRONIC INFLAMMATION, FRAGMENTS OF ACUTELY INFLAMED GRANULATION TISSUE AND FIB RINOPURULENT EXUDATE COMPATIBLE WITH ULCERATION NEGATIVE FOR HEL ICOBACTER ORGANISMS NEGATIVE FOR INTESTINAL METAPLASIA NEGATIVE FO R MALIGNANCY RRB/darrick D 9[address]60, [address] MACROSCOPIC T he specimen is received in formalin, labeled with the patient's name, identifi ed as "gastric pouch ulcer biopsy", and consists of multiple fragments of more biopsy tissue measuring 0.8 x 0.5 x 0.2 cm, entirely submitted in a single aurea sette for H E and giemsa stains. GROSS PERFORMED AT [facility] [address] [place] [address] (p)[phone] MICROSCOPIC All of the stains, including any controls performed, stain appropriately. MICROSCOPIC PERFORMED AT [facility] CONTINUED ON NEXT PAGE RUN DATE: 04/04/19 [facility] PAGE 3 RUN TIME: 1651 Specimen Inquiry RUN USER: INTERFACE SPEC #: [id number] PATIENT: OLEG STEINER #[id number] (Continued)------ ------ MICROSCOPIC (Continued) [address] [facility] [place] [address] (P)[phone] PERFORMING SITE Diagnosis perform ed at: [facility] [address] [facility] [place] [address] Signed SIGNATURE ON FILE Minh Matthews MD 04/04/19 1652 END OF REPORT [id number] 16:37:00* Test Item Value Reference Range Interpretation Comments GLUBED (test code = GLUBED) 85 mg/dL 74-106 N Performed by certified radio operator ground at [facility] BASIC METABOLIC [id number] 14:39:00* Test Item Value Reference Range Interpretation [...] code = CA) 7.6 mg/dL 8.5-10.1 L [id number] 12:07:00* Test Item Value Reference Range Interpretation Comments GLUBED (test code = GLUBED) 93 mg/dL 74-106 N Performed by certified radio operator ground at [facility] [id number] 06:56:00* Test Item Value Reference Range Interpretation Comments GLUBED (test code = GLUBED) 89 mg/dL 74-106 N Performed by certified radio operator ground at [facility] PROCALCITONIN (PCT)2019-04-04 03:42:00* Test Item Value Reference [...] into account the patients history. B-TYPE NATRIURETIC [id number] 03:34:00* Test Item Value Reference Range Interpretation Comments B-TYPE NATRIURETIC PEPTIDE (test code = BNP) 197.04 pgram/mL 0-100 H BASIC METABOLIC [id number] 03:33:00* Test Item Value Reference Range Interpretation [...] code = CA) 7.4 mg/dL 8.5-10.1 L [id number] 03:33:00* Test Item Value Reference Range Interpretation Comments MAGNESIUM (test code = MAG) 1.4 mg/dL 1.8-2.4 L CBC W/MANUAL [id number] 03:28:00* Test Item Value Reference Range Interpretation [...] IMMAT) 0 % 0-0 N BASIC METABOLIC [id number] 03:19:00* Test Item Value Reference Range Interpretation [...] CALCIUM (test code = CA) mg/dL 8.5-10.1 [id number] 03:19:00* Test Item Value Reference Range Interpretation Comments MAGNESIUM (test code = MAG) mg/dL 1.8-2.4 CBC W/MANUAL [id number] 03:15:00* Test Item Value Reference Range Interpretation [...] MORPHOLOGY (test code = PLTMORPH) CBC W/MANUAL [id number] 03:15:00* Test Item Value Reference Range Interpretation [...] MORPHOLOGY (test code = PLTMORPH) CBC W/MANUAL [id number] 03:15:00* Test Item Value Reference Range Interpretation [...] MORPHOLOGY (test code = PLTMORPH) CBC W/MANUAL [id number] 03:15:00* Test Item Value Reference Range Interpretation [...] MORPHOLOGY (test code = PLTMORPH) CBC W/MANUAL [id number] 03:15:00* Test Item Value Reference Range Interpretation [...] PLTEST) PLATELET MORPHOLOGY (test code = PLTMORPH) [id number] 21:50:00* Test Item Value Reference Range Interpretation Comments GLUBED (test code = GLUBED) 84 mg/dL 74-106 N Performed by certified radio operator ground at [facility] [id number] 17:08:00* Test Item Value Reference Range Interpretation Comments GLUBED (test code = GLUBED) 105 mg/dL 74-106 N Performed by certified radio operator ground at [facility] BASIC METABOLIC [id number] 14:00:00* Test Item Value Reference Range Interpretation [...] code = CA) 7.7 mg/dL 8.5-10.1 L [id number] 14:00:00* Test Item Value Reference Range Interpretation Comments MAGNESIUM (test code = MAG) 1.7 mg/dL 1.8-2.4 L BASIC METABOLIC [id number] 13:54:00* Test Item Value Reference Range Interpretation [...] CALCIUM (test code = CA) mg/dL 8.5-10.1 [id number] 13:54:00* Test Item Value Reference Range Interpretation Comments MAGNESIUM (test code = MAG) mg/dL 1.8-2.4 CBC W/AUTO [id number] 12:50:00* Test Item Value Reference Range Interpretation [...] DIFF REQUIRED (test code = MDIFF) NO [id number] 12:24:00* Test Item Value Reference Range Interpretation Comments GLUBED (test code = GLUBED) 103 mg/dL 74-106 N Performed by certified radio operator ground at [facility] [id number] 07:27:00* Test Item Value Reference Range Interpretation Comments CREATININE (test code = CREAT) 0.30 mg/dL 0.55-1.02 L Note change in reference range due to change in reagent. [id number] 05:58:00* Test Item Value Reference Range Interpretation Comments GLUBED (test code = GLUBED) 92 mg/dL 74-106 N Performed by certified radio operator ground at [facility] [id number] 20:48:00* Test Item Value Reference Range Interpretation Comments GLUBED (test code = GLUBED) 63 mg/dL 74-106 L Performed by certified radio operator ground at [facility] PROTHROMBIN [id number] 18:37:00* Test Item Value Reference Range Interpretation [...] prosthetic heart valves (2.5-3.5) STILL RECIEVING BLOOD V.LAB.[facility] 04/02/19 [id number] PATIENT ON ANTICOAG ULANTS? YLIST ANTICOAGULANTS [id number] 18:12:00* Test Item Value Reference Range Interpretation Comments FIBRINOGEN (test code = FIB) 305 mg/dL 200-400 N STILL RECIEVING BLOOD BRUNILDA ACHARYA V.LAB.[facility] [id number] 1018HGB HCT 2019-04-02 18:11:00* Test Item Value Reference Range Interpretation Comments HEMOGLOBIN (test code = HGB) 8.3 gram/dL 11.5-15.5 L HEMATOCRIT (test code = HCT) 25.3 % 36.0-46.0 L [id number] 16:55:00* Test Item Value Reference Range Interpretation Comments GLUBED (test code = GLUBED) 61 mg/dL 74-106 L Performed by certified radio operator ground at [facility] CBC W/MANUAL [id number] 13:47:00* Test Item Value Reference Range Interpretation [...] 0-0 N WAS RECEIVING BLOOD. BRUNILDA XIE ([id number] 12:18:00* Test Item Value Reference Range Interpretation Comments GLUBED (test code = GLUBED) 79 mg/dL 74-106 N Performed by certified radio operator ground at [facility] CBC W/MANUAL [id number] 09:13:00* Test Item Value Reference Range Interpretation [...] = PLTMORPH) WAS RECEIVING BLOOD. BRUNILDA XIE ([id number])CBC W/MANUAL [id number] 09:13:00* Test Item Value Reference Range Interpretation [...] = PLTMORPH) WAS RECEIVING BLOOD. BRUNILDA XIE ([id number])CBC W/MANUAL [id number] 09:13:00* Test Item Value Reference Range Interpretation [...] = PLTMORPH) WAS RECEIVING BLOOD. BRUNILDA XIE ([id number])CBC W/MANUAL [id number] 09:13:00* Test Item Value Reference Range Interpretation [...] = PLTMORPH) WAS RECEIVING BLOOD. BRUNILDA XIE ([id number])CBC W/MANUAL [id number] 09:13:00* Test Item Value Reference Range Interpretation [...] = PLTMORPH) WAS RECEIVING BLOOD. BRUNILDA XIE ([id number] 06:04:00* Test Item Value Reference Range Interpretation Comments GLUBED (test code = GLUBED) 94 mg/dL 74-106 N Performed by certified radio operator ground at [facility] HGB [id number] 23:04:00* Test Item Value Reference Range Interpretation Comments HEMOGLOBIN (test code = HGB) 5.6 gram/dL 11.5-15.5 L HEMATOCRIT (test code = HCT) 18.1 % 36.0-46.0 LL Results called to [id number] by V.LAB.JP1 04/01/19 2304Critical results verified and read back by Nurse? Y [id number] 20:49:00* Test Item Value Reference Range Interpretation Comments GLUBED (test code = GLUBED) 108 mg/dL 74-106 H Performed by certified radio operator ground at [facility] [id number] 17:52:00* Test Item Value Reference Range Interpretation Comments GLUBED (test code = GLUBED) 88 mg/dL 74-106 N Performed by certified radio operator ground at [facility] [id number] 12:48:00* Test Item Value Reference Range Interpretation Comments GLUBED (test code = GLUBED) 78 mg/dL 74-106 N Performed by certified radio operator ground at [facility] [id number] 08:07:00* Test Item Value Reference Range Interpretation Comments GLUBED (test code = GLUBED) 64 mg/dL 74-106 L [facility] [id number] 08:07:00* Test Item Value Reference Range Interpretation Comments GLUBED (test code = GLUBED) 58 mg/dL 74-106 L [facility] certified radio operator [facility] [id number] 08:06:00* Test Item Value Reference Range Interpretation Comments GLUBED (test code = GLUBED) 116 mg/dL 74-106 H Performed by certified radio operator ground at [facility] [id number] 08:06:00* Test Item Value Reference Range Interpretation Comments GLUBED (test code = GLUBED) 86 mg/dL 74-106 N Performed by certified radio operator ground at [facility] [id number] 08:06:00* Test Item Value Reference Range Interpretation Comments GLUBED (test code = GLUBED) 73 mg/dL 74-106 L Performed by certified radio operator ground at [facility] [id number] 08:06:00* Test Item Value Reference Range Interpretation Comments GLUBED (test code = GLUBED) 77 mg/dL 74-106 N Performed by certified radio operator ground at [facility] [id number] 08:05:00* Test Item Value Reference Range Interpretation Comments GLUBED (test code = GLUBED) 87 mg/dL 74-106 N Performed by certified radio operator ground at [facility] [id number] 08:05:00* Test Item Value Reference Range Interpretation Comments GLUBED (test code = GLUBED) 76 mg/dL 74-106 N Performed by certified radio operator ground at [facility]2019-06-17 08:05:00* Test Item Value Reference Range Interpretation Comments GLUBED (test code = GLUBED) 79 mg/dL 74-106 N Performed by certified radio operator ground at [facility] [id number] 08:05:00* Test Item Value Reference Range Interpretation Comments GLUBED (test code = GLUBED) 79 mg/dL 74-106 N Performed by certified radio operator ground at [facility] [id number] 08:05:00* Test Item Value Reference Range Interpretation Comments GLUBED (test code = GLUBED) 91 mg/dL 74-106 N Performed by certified radio operator ground at [facility] [id number] 08:05:00* Test Item Value Reference Range Interpretation Comments GLUBED (test code = GLUBED) 88 mg/dL 74-106 N Performed by certified radio operator ground at [facility] [id number] 08:04:00* Test Item Value Reference Range Interpretation Comments GLUBED (test code = GLUBED) 111 mg/dL 74-106 H Performed by certified radio operator ground at [facility] [id number] 08:04:00* Test Item Value Reference Range Interpretation Comments GLUBED (test code = GLUBED) 86 mg/dL 74-106 N Performed by certified radio operator ground at [facility] [id number] 08:04:00* Test Item Value Reference Range Interpretation Comments GLUBED (test code = GLUBED) 95 mg/dL 74-106 N Performed by certified radio operator ground at [facility] [id number] 08:04:00* Test Item Value Reference Range Interpretation Comments GLUBED (test code = GLUBED) 85 mg/dL 74-106 N Performed by certified radio operator ground at [facility] [id number] 06:30:00* Test Item Value Reference Range Interpretation Comments GLUBED (test code = GLUBED) 75 mg/dL 74-106 N Performed by certified radio operator ground at [facility] [id number] 21:55:00* Test Item Value Reference Range Interpretation Comments GLUBED (test code = GLUBED) 87 mg/dL 74-106 N Performed by certified radio operator ground at [facility] [id number] 16:59:00* Test Item Value Reference Range Interpretation Comments GLUBED (test code = GLUBED) 91 mg/dL 74-106 N Performed by certified radio operator ground at [facility] CBC W/MANUAL [id number] 12:55:00* Test Item Value Reference Range Interpretation [...] MORPHOLOGY (test code = PLTMORPH) SIZE VARIABLE [id number] 12:18:00* Test Item Value Reference Range Interpretation Comments GLUBED (test code = GLUBED) 84 mg/dL 74-106 N Performed by certified radio operator ground at [facility] [id number] 09:57:00* Test Item Value Reference Range Interpretation Comments GLUBED (test code = GLUBED) 95 mg/dL 74-106 N Performed by certified radio operator ground at [facility] CBC W/MANUAL [id number] 08:38:00* Test Item Value Reference Range Interpretation [...] MORPHOLOGY (test code = PLTMORPH) CBC W/MANUAL [id number] 08:38:00* Test Item Value Reference Range Interpretation [...] MORPHOLOGY (test code = PLTMORPH) CBC W/MANUAL [id number] 08:38:00* Test Item Value Reference Range Interpretation [...] MORPHOLOGY (test code = PLTMORPH) CBC W/MANUAL [id number] 08:38:00* Test Item Value Reference Range Interpretation [...] MORPHOLOGY (test code = PLTMORPH) CBC W/MANUAL [id number] 08:38:00* Test Item Value Reference Range Interpretation [...] PLTEST) PLATELET MORPHOLOGY (test code = PLTMORPH) [id number] 06:15:00* Test Item Value Reference Range Interpretation Comments GLUBED (test code = GLUBED) 78 mg/dL 74-106 N Performed by certified radio operator ground at [facility] [id number] 21:02:00* Test Item Value Reference Range Interpretation Comments GLUBED (test code = GLUBED) 91 mg/dL 74-106 N Performed by certified radio operator ground at [facility] BASIC METABOLIC [id number] 12:27:00* Test Item Value Reference Range Interpretation [...] code = CA) 8.1 mg/dL 8.5-10.1 L [id number] 12:27:00* Test Item Value Reference Range Interpretation Comments MAGNESIUM (test code = MAG) 1.6 mg/dL 1.8-2.4 L BASIC METABOLIC [id number] 12:22:00* Test Item Value Reference Range Interpretation [...] CALCIUM (test code = CA) mg/dL 8.5-10.1 [id number] 12:22:00* Test Item Value Reference Range Interpretation Comments MAGNESIUM (test code = MAG) mg/dL 1.8-2.4 [id number] 06:31:00* Test Item Value Reference Range Interpretation Comments GLUBED (test code = GLUBED) 100 mg/dL 74-106 N Performed by certified radio operator ground at [facility] [id number] 22:06:00* Test Item Value Reference Range Interpretation Comments GLUBED (test code = GLUBED) 106 mg/dL 74-106 N Performed by certified radio operator ground at [facility] [id number] 15:48:00* Test Item Value Reference Range Interpretation Comments GLUBED (test code = GLUBED) 101 mg/dL 74-106 N Performed by certified radio operator ground at [facility] [id number] 11:17:00* Test Item Value Reference Range Interpretation Comments GLUBED (test code = GLUBED) 97 mg/dL 74-106 N Performed by certified radio operator ground at [facility] CBC W/MANUAL [id number] 07:30:00* Test Item Value Reference Range Interpretation [...] IMMAT) 2.7 % 0-0 H CBC W/MANUAL [id number] 06:26:00* Test Item Value Reference Range Interpretation [...] MORPHOLOGY (test code = PLTMORPH) CBC W/MANUAL [id number] 06:26:00* Test Item Value Reference Range Interpretation [...] MORPHOLOGY (test code = PLTMORPH) CBC W/MANUAL [id number] 06:26:00* Test Item Value Reference Range Interpretation [...] MORPHOLOGY (test code = PLTMORPH) CBC W/MANUAL [id number] 06:25:00* Test Item Value Reference Range Interpretation [...] MORPHOLOGY (test code = PLTMORPH) CBC W/MANUAL [id number] 06:25:00* Test Item Value Reference Range Interpretation [...] PLTEST) PLATELET MORPHOLOGY (test code = PLTMORPH) [id number] 06:02:00* Test Item Value Reference Range Interpretation Comments GLUBED (test code = GLUBED) 98 mg/dL 74-106 N Performed by certified radio operator ground at [facility] [id number] 21:52:00* Test Item Value Reference Range Interpretation Comments GLUBED (test code = GLUBED) 94 mg/dL 74-106 N Performed by certified radio operator ground at [facility] [id number] 17:33:00* Test Item Value Reference Range Interpretation Comments GLUBED (test code = GLUBED) 82 mg/dL 74-106 N Performed by certified radio operator ground at [facility] BASIC METABOLIC [id number] 15:52:00* Test Item Value Reference Range Interpretation [...] code = CA) 7.9 mg/dL 8.5-10.1 L [id number] 15:52:00* Test Item Value Reference Range Interpretation Comments MAGNESIUM (test code = MAG) 1.8 mg/dL 1.8-2.4 N BASIC METABOLIC [id number] 15:47:00* Test Item Value Reference Range Interpretation [...] CALCIUM (test code = CA) mg/dL 8.5-10.1 [id number] 15:47:00* Test Item Value Reference Range Interpretation Comments MAGNESIUM (test code = MAG) mg/dL 1.8-2.4 [id number] 12:21:00* Test Item Value Reference Range Interpretation Comments GLUBED (test code = GLUBED) 91 mg/dL 74-106 N Performed by certified radio operator ground at [facility] [id number] 06:01:00* Test Item Value Reference Range Interpretation Comments GLUBED (test code = GLUBED) 96 mg/dL 74-106 N Performed by certified radio operator ground at [facility] [id number] 00:29:00* Test Item Value Reference Range Interpretation Comments GLUBED (test code = GLUBED) 97 mg/dL 74-106 N Performed by certified radio operator ground at [facility] [id number] 21:53:00* Test Item Value Reference Range Interpretation Comments GLUBED (test code = GLUBED) 100 mg/dL 74-106 N Performed by certified radio operator ground at [facility] BASIC METABOLIC [id number] 17:55:00* Test Item Value Reference Range Interpretation [...] 1323WAITING OD DRS ORDERS TO DRAW 0955 V.LAB.[facility] [id number] ON DRS ORDE RS TO DRAW FROM [place] MENJIVAR SAID COMEBACK LATER. V.LAB.[facility] 03/27/19 0541 [id number] 17:55:00* Test Item Value Reference Range Interpretation Comments MAGNESIUM (test code = MAG) 2.1 mg/dL 1.8-2.4 N 1323WAITING OD DRS ORDERS TO DRAW 0955 V.LAB.[facility] [id number] ON DRS ORDE RS TO DRAW FROM [place] MENJIVAR SAID COMEBACK LATER. V.LAB.[facility] 03/27/19 0541 BASIC METABOLIC [id number] 17:49:00* Test Item Value Reference Range Interpretation [...] 1323WAITING OD DRS ORDERS TO DRAW 0955 V.LAB.1 [id number] ON DRS ORDE RS TO DRAW FROM [place] MENJIVAR SAID COMEBACK LATER. V.LAB.1 03/27/19 0541 [id number] 17:49:00* Test Item Value Reference Range Interpretation Comments MAGNESIUM (test code = MAG) mg/dL 1.8-2.4 1323WAITING OD DRS ORDERS TO DRAW 0955 V.LAB.1 [id number] ON DRS ORDE RS TO DRAW FROM PORT. BRUNILDA MENJIVAR SAID COMEBACK LATER. V.LAB.[facility] 03/27/1943 [id number] 07:31:00* Test Item Value Reference Range Interpretation Comments GLUBED (test code = GLUBED) 108 mg/dL 74-106 H Performed by certified radio operator ground at [facility] [id number] 03:07:00* Test Item Value Reference Range Interpretation Comments GLUBED (test code = GLUBED) 96 mg/dL 74-106 N Performed by certified radio operator ground at [facility] [id number] 22:06:00* Test Item Value Reference Range Interpretation Comments GLUBED (test code = GLUBED) 97 mg/dL 74-106 N Performed by certified radio operator ground at [facility] [id number] 13:13:00* Test Item Value Reference Range Interpretation Comments GLUBED (test code = GLUBED) 94 mg/dL 74-106 N Performed by certified radio operator ground at [facility] [id number] 10:27:00* Test Item Value Reference Range Interpretation Comments MAGNESIUM (test code = MAG) 1.3 mg/dL 1.8-2.4 L BASIC METABOLIC [id number] 09:18:00* Test Item Value Reference Range Interpretation Comments SODIUM (test code = NA) 143 mmol/L 136-145 N POTASSIUM (test code = K) 2.5 mmol/L 3.5-5.1 Re sults called to [id number] by V.LAB.2 03/26/19917Critical results verified and read back by Nurse? [...] code = CA) 7.9 mg/dL 8.5-10.1 L [id number] 07:26:00* Test Item Value Reference Range Interpretation Comments GLUBED (test code = GLUBED) 131 mg/dL 74-106 H Performed by certified radio operator ground at [facility] CBC W/AUTO [id number] 06:44:00* Test Item Value Reference Range Interpretation [...] (test code = MDIFF) NO THROMBOPLASTIN TIME [id number] 13:44:00* Test Item Value Reference Range Interpretation Comments THROMBOPLASTIN TIME PARTIAL (test code = PTT) 33.7 seconds 25.0-36. 5 N PT HARD STICK NOTIFIED BRUNILDA BETANCOURT@V.LAB.LB2 03/25/19 1056IS PATIENT ON ANTICOAGULAN TS? [employer]LIST ANTICOAGULANTS [id number] 10:43:00* Test Item Value Reference Range Interpretation Comments GLUBED (test code = GLUBED) 121 mg/dL 74-106 H Performed by certified radio operator ground at [facility] [id number] 06:34:00* Test Item Value Reference Range Interpretation Comments GLUBED (test code = GLUBED) 71 mg/dL 74-106 L Performed by certified radio operator ground at [facility] THROMBOPLASTIN TIME [id number] 02:31:00* Test Item Value Reference Range Interpretation Comments THROMBOPLASTIN TIME PARTIAL (test code = PTT) 60.6 seconds 25.0-36. 5 H IS PATIENT ON ANTICOAGULANTS? [employer]LIST ANTICOAGULANTS [id number] 01:33:00* Test Item Value Reference Range Interpretation Comments GLUBED (test code = GLUBED) 86 mg/dL 74-106 N Performed by certified radio operator ground at [facility] THROMBOPLASTIN TIME [id number] 19:35:00* Test Item Value Reference Range Interpretation Comments THROMBOPLASTIN TIME PARTIAL (test code = PTT) 57.2 seconds 25.0-36. 5 H IS PATIENT ON ANTICOAGULANTS? [employer]LIST ANTICOAGULANTS [id number] 11:47:00* Test Item Value Reference Range Interpretation Comments GLUBED (test code = GLUBED) 85 mg/dL 74-106 N Performed by certified radio operator ground at [facility] BASIC METABOLIC [id number] 08:50:00* Test Item Value Reference Range Interpretation [...] CA) 7.8 mg/dL 8.5-10.1 L BASIC METABOLIC [id number] 08:43:00* Test Item Value Reference Range Interpretation [...] code = CA) mg/dL 8.5-10.1 THROMBOPLASTIN TIME [id number] 08:20:00* Test Item Value Reference Range Interpretation Comments THROMBOPLASTIN TIME PARTIAL (test code = PTT) 46.8 seconds 25.0-36. 5 H IS PATIENT ON ANTICOAGULANTS? [employer]LIST ANTICOAGULANTS [id number] 06:20:00* Test Item Value Reference Range Interpretation Comments GLUBED (test code = GLUBED) 83 mg/dL 74-106 N Performed by certified radio operator ground at [facility] THROMBOPLASTIN TIME [id number] 01:44:00* Test Item Value Reference Range Interpretation Comments THROMBOPLASTIN TIME PARTIAL (test code = PTT) 61.8 seconds 25.0-36. 5 H IS PATIENT ON ANTICOAGULANTS? [employer]LIST ANTICOAGULANTS [id number] 21:13:00* Test Item Value Reference Range Interpretation Comments GLUBED (test code = GLUBED) 73 mg/dL 74-106 L Performed by certified radio operator ground at [facility] THROMBOPLASTIN TIME [id number] 18:12:00* Test Item Value Reference Range Interpretation Comments THROMBOPLASTIN TIME PARTIAL (test code = PTT) 86.9 seconds 25.0-36. 5 HH Results called to CHRISTINA by [email or web address] 03/23/19 1811Critical results verified and read back by Nurse? Y IS PATIENT ON ANTICOAGULANTS? [employer]LIST ANTICOAGULANTS [id number] 16:53:00* Test Item Value Reference Range Interpretation Comments GLUBED (test code = GLUBED) 70 mg/dL 74-106 L Performed by certified radio operator ground at [facility] [id number] 12:08:00* Test Item Value Reference Range Interpretation Comments GLUBED (test code = GLUBED) 93 mg/dL 74-106 N Performed by certified radio operator ground at [facility] BASIC METABOLIC [id number] 09:02:00* Test Item Value Reference Range Interpretation [...] code = CA) 7.9 mg/dL 8.5-10.1 L [id number] 09:02:00* Test Item Value Reference Range Interpretation Comments MAGNESIUM (test code = MAG) 1.3 mg/dL 1.8-2.4 L BASIC METABOLIC [id number] 08:58:00* Test Item Value Reference Range Interpretation [...] CALCIUM (test code = CA) mg/dL 8.5-10.1 [id number] 08:58:00* Test Item Value Reference Range Interpretation Comments MAGNESIUM (test code = MAG) mg/dL 1.8-2.4 THROMBOPLASTIN TIME [id number] 07:33:00* Test Item Value Reference Range Interpretation Comments THROMBOPLASTIN TIME PARTIAL (test code = PTT) 104.5 seconds 25.0-36 .5 HH Results called to CHRISTINA [id number] V.LAB.OA 03/23/19 0732Critical results verified and read back by Nurse? Y IS PATIENT ON ANTICOAGULANTS? [employer]LIST ANTICOAGULANTS [id number] 05:26:00* Test Item Value Reference Range Interpretation Comments GLUBED (test code = GLUBED) 88 mg/dL 74-106 N Performed by certified radio operator ground at [facility] THROMBOPLASTIN TIME [id number] 23:21:00* Test Item Value Reference Range Interpretation Comments THROMBOPLASTIN TIME PARTIAL (test code = PTT) 62.1 seconds 25.0-36. 5 H IS PATIENT ON ANTICOAGULANTS? YLIST ANTICOAGULANTS [id number] 21:46:00* Test Item Value Reference Range Interpretation Comments GLUBED (test code = GLUBED) 88 mg/dL 74-106 N Performed by certified radio operator ground at [facility] BASIC METABOLIC [id number] 19:07:00* Test Item Value Reference Range Interpretation Comments SODIUM (test code = NA) 143 mmol/L 136-145 N POTASSIUM (test code = K) 2.5 mmol/L 3.5-5.1 Re sults called to [id number] by V.LAB.HP 03/22/19 1906Critical results verified and read back [...] REFUSAL BRUNILDA BETANCOURT IS AWARE BASIC METABOLIC [id number] 19:06:00* Test Item Value Reference Range Interpretation Comments SODIUM (test code = NA) 143 mmol/L 136-145 N POTASSIUM (test code = K) 2.5 mmol/L 3.5-5.1 [facility] sults called to [id number] by V.LAB. 03/22/19 1906Critical results verified and [...] mg/dL 8.5-10.1 REFUSAL BRUNILDA BETANCOURT IS AWARE [id number] 16:44:00* Test Item Value Reference Range Interpretation Comments GLUBED (test code = GLUBED) 88 mg/dL 74-106 N Performed by certified radio operator ground at [facility] [id number] 11:32:00* Test Item Value Reference Range Interpretation Comments GLUBED (test code = GLUBED) 98 mg/dL 74-106 N Performed by certified radio operator ground at [facility] [id number] 06:37:00* Test Item Value Reference Range Interpretation Comments GLUBED (test code = GLUBED) 91 mg/dL 74-106 N Performed by certified radio operator ground at [facility] [id number] 19:57:00* Test Item Value Reference Range Interpretation Comments GLUBED (test code = GLUBED) 94 mg/dL 74-106 N Performed by certified radio operator ground at [facility] [id number] 16:15:00* Test Item Value Reference Range Interpretation Comments GLUBED (test code = GLUBED) 82 mg/dL 74-106 N Performed by certified radio operator ground at [facility] [id number] 16:14:00* Test Item Value Reference Range Interpretation Comments GLUBED (test code = GLUBED) 94 mg/dL 74-106 N Performed by certified radio operator ground at [facility] CBC W/MANUAL [id number] 14:44:00* Test Item Value Reference Range Interpretation [...] IMMAT) 0 % 0-0 N COMPREHENSIVE METABOLIC [id number] 14:25:00* Test Item Value Reference Range Interpretation [...] due to change in reagent. COMPREHENSIVE METABOLIC [id number] 14:21:00* Test Item Value Reference Range Interpretation [...] code = ALKP) IUnit/L 45-117 CBC W/MANUAL [id number] 14:17:00* Test Item Value Reference Range Interpretation [...] MORPHOLOGY (test code = PLTMORPH) CBC W/MANUAL [id number] 14:17:00* Test Item Value Reference Range Interpretation [...] MORPHOLOGY (test code = PLTMORPH) CBC W/MANUAL [id number] 14:17:00* Test Item Value Reference Range Interpretation [...] MORPHOLOGY (test code = PLTMORPH) CBC W/MANUAL [id number] 14:17:00* Test Item Value Reference Range Interpretation [...] MORPHOLOGY (test code = PLTMORPH) CBC W/MANUAL [id number] 14:17:00* Test Item Value Reference Range Interpretation [...] PLTEST) PLATELET MORPHOLOGY (test code = PLTMORPH) [id number] 05:59:00* Test Item Value Reference Range Interpretation Comments GLUBED (test code = GLUBED) 88 mg/dL 74-106 N Performed by certified radio operator ground at [facility] [id number] 21:28:00* Test Item Value Reference Range Interpretation Comments GLUBED (test code = GLUBED) 89 mg/dL 74-106 N Performed by certified radio operator ground at [facility] CBC W/MANUAL [id number] 09:17:00* Test Item Value Reference Range Interpretation [...] IMMAT) 0 % 0-0 N BASIC METABOLIC [id number] 07:23:00* Test Item Value Reference Range Interpretation [...] CA) 7.9 mg/dL 8.5-10.1 L CBC W/MANUAL [id number] 07:16:00* Test Item Value Reference Range Interpretation [...] MORPHOLOGY (test code = PLTMORPH) CBC W/MANUAL [id number] 07:16:00* Test Item Value Reference Range Interpretation [...] MORPHOLOGY (test code = PLTMORPH) CBC W/MANUAL [id number] 07:16:00* Test Item Value Reference Range Interpretation [...] MORPHOLOGY (test code = PLTMORPH) CBC W/MANUAL [id number] 07:15:00* Test Item Value Reference Range Interpretation [...] MORPHOLOGY (test code = PLTMORPH) CBC W/MANUAL [id number] 07:15:00* Test Item Value Reference Range Interpretation [...] MORPHOLOGY (test code = PLTMORPH) BASIC METABOLIC [id number] 19:01:00* Test Item Value Reference Range Interpretation Comments SODIUM (test code = NA) 141 mmol/L 136-145 N POTASSIUM (test code = K) 2.7 mmol/L 3.5-5.1 LL Re sults called to [id number] by VRestoMestoLAB.SPR 03/19/19 1901Critical results verified and read back [...] [place] DRAWIMG FROM PORT SENDING TUBES DOWN. V.LAB.RP106/02/01 1112CBC W/MANUAL [id number] 18:28:00* Test Item Value Reference Range Interpretation [...] code = IMMAT) 0 % 0-0 N [id number] 18:12:00* Test Item Value Reference Range Interpretation Comments MAGNESIUM (test code = MAG) 1.6 mg/dL 1.8-2.4 L BRUNILDA ALEJANDRA SENDING TUBES DOWN, DRAWING FROM PORT. [facility]. 1111PHOSPHORUS 2019-03-19 18:11:00* Test Item Value Reference Range Interpretation Comments PHOSPHORUS (test code = PHOS) 3.2 mg/dL 2.5-4.9 N BRUNILDA ALEJANDRA SENDING TUBES DOWN, DRAWING FROM PORT. [facility]. 1112D-DIMER 2019-03-19 18:06:00* Test Item Value Reference Range Interpretation Comments D-DIMER (test code = DDIMER) 548.00 ng/mLFEU 0-500 HH Results called to [id number] by AwarepointLAB.KP1 03/19/19 1806Critical results verified and read back [...] skin infections -Liver cirrhosis - CBC W/MANUAL [id number] 17:36:00* Test Item Value Reference Range Interpretation [...] MORPHOLOGY (test code = PLTMORPH) CBC W/MANUAL [id number] 17:36:00* Test Item Value Reference Range Interpretation [...] MORPHOLOGY (test code = PLTMORPH) CBC W/MANUAL [id number] 17:36:00* Test Item Value Reference Range Interpretation [...] MORPHOLOGY (test code = PLTMORPH) CBC W/MANUAL [id number] 17:36:00* Test Item Value Reference Range Interpretation [...] MORPHOLOGY (test code = PLTMORPH) CBC W/MANUAL [id number] 17:36:00* Test Item Value Reference Range Interpretation [...] PLTEST) PLATELET MORPHOLOGY (test code = PLTMORPH) [id number] 15:45:00* Test Item Value Reference Range Interpretation Comments GLUBED (test code = GLUBED) 93 mg/dL 74-106 N Performed by certified radio operator ground at [facility] [id number] 11:44:00* Test Item Value Reference Range Interpretation Comments GLUBED (test code = GLUBED) 102 mg/dL 74-106 N Performed by certified radio operator ground at [facility] CBC W/MANUAL [id number] 22:04:00* Test Item Value Reference Range Interpretation [...] IMMAT) 0 % 0-0 N CBC W/MANUAL [id number] 21:12:00* Test Item Value Reference Range Interpretation [...] MORPHOLOGY (test code = PLTMORPH) CBC W/MANUAL [id number] 21:12:00* Test Item Value Reference Range Interpretation [...] MORPHOLOGY (test code = PLTMORPH) CBC W/MANUAL [id number] 21:12:00* Test Item Value Reference Range Interpretation [...] MORPHOLOGY (test code = PLTMORPH) CBC W/MANUAL [id number] 21:12:00* Test Item Value Reference Range Interpretation [...] MORPHOLOGY (test code = PLTMORPH) CBC W/MANUAL [id number] 21:12:00* Test Item Value Reference Range Interpretation [...] PLTEST) PLATELET MORPHOLOGY (test code = PLTMORPH) [id number] 15:47:00* Test Item Value Reference Range Interpretation Comments GLUBED (test code = GLUBED) 94 mg/dL 74-106 N Performed by certified radio operator ground at [facility] PROTHROMBIN [id number] 14:27:00* Test Item Value Reference Range Interpretation [...] valves (2.5-3.5) 03/18/19 1201IS PATIENT ON ANTICOAGULANTS? [id number] 11:46:00* Test Item Value Reference Range Interpretation Comments GLUBED (test code = GLUBED) 92 mg/dL 74-106 N Performed by certified radio operator ground at [facility] [id number] 06:00:00* Test Item Value Reference Range Interpretation Comments GLUBED (test code = GLUBED) 78 mg/dL 74-106 N Performed by certified radio operator ground at [facility] [id number] 12:02:00* Test Item Value Reference Range Interpretation Comments GLUBED (test code = GLUBED) 94 mg/dL 74-106 N Performed by certified radio operator ground at [facility] CBC W/MANUAL [id number] 09:17:00* Test Item Value Reference Range Interpretation [...] IMMAT) 0 % 0-0 N BASIC METABOLIC [id number] 08:27:00* Test Item Value Reference Range Interpretation [...] code = CA) 8.4 mg/dL 8.5-10.1 L [id number] 08:27:00* Test Item Value Reference Range Interpretation Comments MAGNESIUM (test code = MAG) 2.4 mg/dL 1.8-2.4 N CBC W/MANUAL [id number] 08:24:00* Test Item Value Reference Range Interpretation [...] MORPHOLOGY (test code = PLTMORPH) CBC W/MANUAL [id number] 08:24:00* Test Item Value Reference Range Interpretation [...] MORPHOLOGY (test code = PLTMORPH) CBC W/MANUAL [id number] 08:24:00* Test Item Value Reference Range Interpretation [...] MORPHOLOGY (test code = PLTMORPH) CBC W/MANUAL [id number] 08:23:00* Test Item Value Reference Range Interpretation [...] MORPHOLOGY (test code = PLTMORPH) CBC W/MANUAL [id number] 08:23:00* Test Item Value Reference Range Interpretation [...] PLTEST) PLATELET MORPHOLOGY (test code = PLTMORPH) [id number] 06:18:00* Test Item Value Reference Range Interpretation Comments GLUBED (test code = GLUBED) 87 mg/dL 74-106 N Performed by certified radio operator ground at [facility] [id number] 20:13:00* Test Item Value Reference Range Interpretation Comments GLUBED (test code = GLUBED) 81 mg/dL 74-106 N Performed by certified radio operator ground at [facility] [id number] 05:59:00* Test Item Value Reference Range Interpretation Comments GLUBED (test code = GLUBED) 94 mg/dL 74-106 N Performed by certified radio operator ground at [facility] PROTHROMBIN [id number] 04:49:00* Test Item Value Reference Range Interpretation [...] (2.5-3.5) IS PATIENT ON ANTICOAGULANTS? NBASIC METABOLIC [id number] 04:47:00* Test Item Value Reference Range Interpretation [...] code = CA) 7.8 mg/dL 8.5-10.1 L [id number] 04:47:00* Test Item Value Reference Range Interpretation Comments PHOSPHORUS (test code = PHOS) 3.5 mg/dL 2.5-4.9 N [id number] 04:47:00* Test Item Value Reference Range Interpretation Comments MAGNESIUM (test code = MAG) 1.5 mg/dL 1.8-2.4 L BASIC METABOLIC [id number] 04:42:00* Test Item Value Reference Range Interpretation [...] CALCIUM (test code = CA) mg/dL 8.5-10.1 [id number] 04:42:00* Test Item Value Reference Range Interpretation Comments PHOSPHORUS (test code = PHOS) mg/dL 2.5-4.9 [id number] 04:42:00* Test Item Value Reference Range Interpretation Comments MAGNESIUM (test code = MAG) mg/dL 1.8-2.4 CBC W/O [id number] 04:26:00* Test Item Value Reference Range Interpretation [...] = MPV) 10.8 fL 6.7-11.0 N HGB [id number] 00:01:00* Test Item Value Reference Range Interpretation Comments HEMOGLOBIN (test code = HGB) 8.7 gram/dL 11.5-15.5 L HEMATOCRIT (test code = HCT) 26.8 % 36.0-46.0 L [id number] 20:25:00* Test Item Value Reference Range Interpretation Comments GLUBED (test code = GLUBED) 72 mg/dL 74-106 L Performed by certified radio operator ground at [facility] [id number] 16:18:00* Test Item Value Reference Range Interpretation Comments GLUBED (test code = GLUBED) 83 mg/dL 74-106 N Performed by certified radio operator ground at [facility] UR ELECTROPHORESIS BENCE [id number] 14:11:00* Test Item Value Reference Range Interpretation Comments IMMUNOFIXATION URINE (test code = IMMFIXU) SCREEN () An apparent normal immunofixation pattern. UR TOTAL PROTEIN (test code = PROTEU) 38.1 mg/dL Not Estab. UR WJBJC-1-VMWAOQMC (test code = A1GU) 4.5 % () UR VCFWC-6-VGMDUEQE (test code = A2GU) 12.5 % () UR BETA GLOBULIN (test code = BGU) 26.9 % () UR GAMMA GLOBULIN (test code = GGU) 24.6 % () MONOCLONAL SPIKE (test code = MONOSPIKE) Not Observed % Not Observe d UR ALBUMIN QUANT (test code = ALBU) 31.5 % () [id number] 12:21:00* Test Item Value Reference Range Interpretation Comments GLUBED (test code = GLUBED) 87 mg/dL 74-106 N Performed by certified radio operator ground at [facility] [id number] 08:16:00* Test Item Value Reference Range Interpretation Comments PREALBUMIN (test code = PREALB) 6.0 mg/dL 10-36 L Performed At: [facility] [address] [id number] Josiah Woodard MD Ph:[phone] CBC W/AUTO [id number] 06:39:00* Test Item Value Reference Range Interpretation [...] = MDIFF) NO, ONLY SCAN NEEDED DIFFERENTIAL [id number] 06:39:00* Test Item Value Reference Range Interpretation Comments STAIN ACCEPTABILITY (test code = STN ACCEPTABLE) STAIN ACCEPTABLE HYPOCHROMIA (test code = HYPO) 1+ ANISOCYTOSIS (test code = ANISO) 1+ PLATELET ESTIMATE (test code = PLTEST) DECREASED PLATELET MORPHOLOGY (test code = PLTMORPH) NORMAL [id number] 06:32:00* Test Item Value Reference Range Interpretation Comments GLUBED (test code = GLUBED) 87 mg/dL 74-106 N Performed by certified radio operator ground at [facility] PROCALCITONIN (PCT)2019-03-15 05:30:00* Test Item Value Reference [...] into account the patients history. COMPREHENSIVE METABOLIC [id number] 04:51:00* Test Item Value Reference Range Interpretation [...] reference range due to change in reagent. [id number] 04:51:00* Test Item Value Reference Range Interpretation Comments PHOSPHORUS (test code = PHOS) 1.8 mg/dL 2.5-4.9 L [id number] 04:51:00* Test Item Value Reference Range Interpretation Comments MAGNESIUM (test code = MAG) 1.8 mg/dL 1.8-2.4 N CBC W/AUTO [id number] 04:44:00* Test Item Value Reference Range Interpretation [...] = MDIFF) NO, ONLY SCAN NEEDED DIFFERENTIAL [id number] 04:44:00* Test Item Value Reference Range Interpretation Comments STAIN ACCEPTABILITY (test code = STN ACCEPTABLE) CABOT RINGS (test code = CAB) MORPHOLOGY COMMENT (test code = MOC) PLATELET ESTIMATE (test code = PLTEST) PLATELET MORPHOLOGY (test code = PLTMORPH) CBC W/AUTO [id number] 04:44:00* Test Item Value Reference Range Interpretation [...] = MDIFF) NO, ONLY SCAN NEEDED DIFFERENTIAL [id number] 04:44:00* Test Item Value Reference Range Interpretation Comments STAIN ACCEPTABILITY (test code = STN ACCEPTABLE) CABOT RINGS (test code = CAB) MORPHOLOGY COMMENT (test code = MOC) PLATELET ESTIMATE (test code = PLTEST) PLATELET MORPHOLOGY (test code = PLTMORPH) CBC W/AUTO [id number] 04:44:00* Test Item Value Reference Range Interpretation [...] = MDIFF) NO, ONLY SCAN NEEDED DIFFERENTIAL [id number] 04:44:00* Test Item Value Reference Range Interpretation Comments STAIN ACCEPTABILITY (test code = STN ACCEPTABLE) MORPHOLOGY COMMENT (test code = MOC) PLATELET ESTIMATE (test code = PLTEST) PLATELET MORPHOLOGY (test code = PLTMORPH) CBC W/AUTO [id number] 04:44:00* Test Item Value Reference Range Interpretation [...] = MDIFF) NO, ONLY SCAN NEEDED DIFFERENTIAL [id number] 04:44:00* Test Item Value Reference Range Interpretation Comments STAIN ACCEPTABILITY (test code = STN ACCEPTABLE) CABOT RINGS (test code = CAB) MORPHOLOGY COMMENT (test code = MOC) PLATELET ESTIMATE (test code = PLTEST) PLATELET MORPHOLOGY (test code = PLTMORPH) COMPREHENSIVE METABOLIC [id number] 04:41:00* Test Item Value Reference Range Interpretation [...] TOTAL (test code = ALKP) IUnit/L 45-117 [id number] 04:41:00* Test Item Value Reference Range Interpretation Comments PHOSPHORUS (test code = PHOS) mg/dL 2.5-4.9 [id number] 04:41:00* Test Item Value Reference Range Interpretation Comments MAGNESIUM (test code = MAG) mg/dL 1.8-2.4 [id number] 20:40:00* Test Item Value Reference Range Interpretation Comments GLUBED (test code = GLUBED) 84 mg/dL 74-106 N Performed by certified radio operator ground at [facility] CBC W/AUTO [id number] 12:46:00* Test Item Value Reference Range Interpretation [...] NO, ONLY SCAN NEEDED PT HARD STICK @[facility] 03/14/19 0943PT HARD STICK PER [facility] 02/15 0836DIFFERENTIAL [id number] 12:46:00* Test Item Value Reference Range Interpretation Comments STAIN ACCEPTABILITY (test code = STN ACCEPTABLE) STAIN ACCEPTABLE PLATELET ESTIMATE (test code = PLTEST) DECREASED PLATELET MORPHOLOGY (test code = PLTMORPH) NORMAL PT HARD STICK @[facility] 03/14/19 0943PT HARD STICK PER [facility] 02/15 0836CBC W/AUTO [id number] 12:09:00* Test Item Value Reference Range Interpretation [...] NO, ONLY SCAN NEEDED PT HARD STICK @[email or web address] 03/14/19 0943PT HARD STICK PER [employer] @[email or web address].[facility] 02/15 0836DIFFERENTIAL [id number] 12:09:00* Test Item Value Reference Range Interpretation Comments STAIN ACCEPTABILITY (test code = STN ACCEPTABLE) CABOT RINGS (test code = CAB) MORPHOLOGY COMMENT (test code = MOC) PLATELET ESTIMATE (test code = PLTEST) PLATELET MORPHOLOGY (test code = PLTMORPH) PT HARD STICK @[facility] 03/14/19 0943PT HARD STICK PER [facility] @[facility]point[facility] 02/15 0836CBC W/AUTO [id number] 12:09:00* Test Item Value Reference Range Interpretation [...] NO, ONLY SCAN NEEDED PT HARD STICK @[email or web address].[facility] 03/14/19 0943PT HARD STICK PER [employer] @[email or web address].[facility] 02/15 0836DIFFERENTIAL [id number] 12:09:00* Test Item Value Reference Range Interpretation Comments STAIN ACCEPTABILITY (test code = STN ACCEPTABLE) CABOT RINGS (test code = CAB) MORPHOLOGY COMMENT (test code = MOC) PLATELET ESTIMATE (test code = PLTEST) PLATELET MORPHOLOGY (test code = PLTMORPH) PT HARD STICK @Exabre.LAB.[facility] 03/14/19 0943PT HARD STICK PER VitaPortal @Mobile2Me.[facility] 02/15 0836CBC W/AUTO [id number] 12:09:00* Test Item Value Reference Range Interpretation [...] NO, ONLY SCAN NEEDED PT HARD STICK @[employer].3 03/14/19 0943PT HARD STICK PER VitaPortal @Mobile2Me.[facility] 02/15 0836DIFFERENTIAL [id number] 12:09:00* Test Item Value Reference Range Interpretation Comments STAIN ACCEPTABILITY (test code = STN ACCEPTABLE) MORPHOLOGY COMMENT (test code = MOC) PLATELET ESTIMATE (test code = PLTEST) PLATELET MORPHOLOGY (test code = PLTMORPH) PT HARD STICK @Exab[employer] 03/14/19 0943PT HARD STICK PER VERO B @Mobile2Me.3 02/15 0836CBC W/AUTO [id number] 12:09:00* Test Item Value Reference Range Interpretation [...] NO, ONLY SCAN NEEDED PT HARD STICK @V.LAB.[facility] 03/14/19 0943PT HARD STICK PER VERO B @[employer].3 02/15 0836DIFFERENTIAL [id number] 12:09:00* Test Item Value Reference Range Interpretation Comments STAIN ACCEPTABILITY (test code = STN ACCEPTABLE) CABOT RINGS (test code = CAB) MORPHOLOGY COMMENT (test code = MOC) PLATELET ESTIMATE (test code = PLTEST) PLATELET MORPHOLOGY (test code = PLTMORPH) PT HARD STICK @AwarepointLAB.SP3 03/14/19 0943PT HARD STICK PER VERO B @[employer].3 02/15 0836BASIC METABOLIC [id number] 05:31:00* Test Item Value Reference Range Interpretation [...] code = CA) 7.5 mg/dL 8.5-10.1 L [id number] 05:31:00* Test Item Value Reference Range Interpretation Comments PHOSPHORUS (test code = PHOS) 2.7 mg/dL 2.5-4.9 N [id number] 05:31:00* Test Item Value Reference Range Interpretation Comments MAGNESIUM (test code = MAG) 1.7 mg/dL 1.8-2.4 L CALCIUM [id number] 05:31:00* Test Item Value Reference Range Interpretation Comments CALCIUM IONIZED (test code = CONNIE) 1.11 mmol/L 1.12-1.32 L BASIC METABOLIC [id number] 05:30:00* Test Item Value Reference Range Interpretation [...] code = CA) 7.5 mg/dL 8.5-10.1 L [id number] 05:30:00* Test Item Value Reference Range Interpretation Comments PHOSPHORUS (test code = PHOS) 2.7 mg/dL 2.5-4.9 N [id number] 05:30:00* Test Item Value Reference Range Interpretation Comments MAGNESIUM (test code = MAG) 1.7 mg/dL 1.8-2.4 L CALCIUM [id number] 05:30:00* Test Item Value Reference Range Interpretation Comments CALCIUM IONIZED (test code = CONNIE) mmol/L 1.12-1.32 [id number] 21:00:00* Test Item Value Reference Range Interpretation Comments GLUBED (test code = GLUBED) 75 mg/dL 74-106 N Performed by certified radio operator ground at [facility] [id number] 17:31:00* Test Item Value Reference Range Interpretation Comments GLUBED (test code = GLUBED) 83 mg/dL 74-106 N Performed by certified radio operator ground at [facility] PROTEIN ELECTROPHORESIS [id number] 17:08:00* Test Item Value Reference Range Interpretation Comments TOTAL PROTEIN (test code = PROTE) 3.9 g/dL 6.0-8.5 A ALBUMIN (test code = ALBE) 1.6 g/dL 2.9-4.4 A SENOO-5-UHMGWRTN (test code = A1G) 0.2 g/dL 0.0-0.4 OLNNY-6-CXECFNVU (test code = A2G) 0.3 g/dL 0.4-1.0 [...] and plasmaphoresis. Monoclonal protein is notapparent.Performed At: [facility] [address] [id number] Josiah Woodard MD Ph:[phone] At: DA [facility] [address] [place], [place] [id number] CN MD Ph:[phone] CBC W/AUTO [id number] 16:05:00* Test Item Value Reference Range Interpretation [...] N PT HARD STICK NOTIFIED BRUNILDA QUEZADA @Exabre.LAB.SP3 03/13/[id number] 12:07:00* Test Item Value Reference Range Interpretation Comments GLUBED (test code = GLUBED) 106 mg/dL 74-106 N Performed by certified radio operator ground at [facility] ANTINUCLEAR ANTIBODIES [id number] 11:14:00* Test Item Value Reference Range Interpretation Comments GISELLE SCREEN (test code = ANASCR) Negative Negative Performed At: [facility] [address] [id number] Woodard MD Ph:[phone] ACUTE HEPATITIS [id number] 11:14:00* Test Item Value Reference Range Interpretation [...] with a HCV Nucleic Acid Amplification test ([id number]).Performed At: [facility] [address] [id number] Kyle L MD Ph:[phone] BASIC METABOLIC [id number] 11:10:00* Test Item Value Reference Range Interpretation [...] L PT HARD STICK NOTIFIED BRUNILDA QUEZADA [facility] [id number] 11:10:00* Test Item Value Reference Range Interpretation Comments PHOSPHORUS (test code = PHOS) 1.7 mg/dL 2.5-4.9 L PT HARD STICK NOTIFIED BRUNILDA QUEZADA [place] [address] 03/13/[id number] 11:10:00* Test Item Value Reference Range Interpretation Comments MAGNESIUM (test code = MAG) 1.5 mg/dL 1.8-2.4 L PT HARD STICK NOTIFIED [place]ILDA [place]ADA [place] [id number] IONIZED 2019-03-13 11:10:00* Test Item Value Reference Range Interpretation Comments CALCIUM IONIZED (test code = CONNIE) 0.99 mmol/L 1.12-1.32 L PT HARD STICK NOTIFIED [place]ILDA [place]ADA [place] [address] 03/13/894491UKKJL METABOLIC PANEL 2019-03-13 11:03:00* Test Item Value [...] 8.5-10.1 PT HARD STICK NOTIFIED [facility]IL[facility] QUEZADA [facility] 03/13/[id number] 11:03:00* Test Item Value Reference Range Interpretation Comments PHOSPHORUS (test code = PHOS) mg/dL 2.5-4.9 PT HARD STICK NOTIFIED BRUNILDA MERINORA @Mobile2Me.3 [id number] 11:03:00* Test Item Value Reference Range Interpretation Comments MAGNESIUM (test code = MAG) mg/dL 1.8-2.4 PT HARD STICK NOTIFIED BRUNILDA MERINORA @[employer]3 [id number] IONIZED 2019-03-13 11:03:00* Test Item Value Reference Range Interpretation Comments CALCIUM IONIZED (test code = CONNIE) 0.99 mmol/L 1.12-1.32 L PT HARD STICK NOTIFIED BRUNILDA PILAR @Mobile2Me.[facility] [id number] METABOLIC PANEL 2019-03-13 11:02:00* Test Item Value [...] mg/dL 8.5-10.1 PT HARD STICK NOTIFIED BRUNILDA PILAR @[employer].3 [id number] 11:02:00* Test Item Value Reference Range Interpretation Comments PHOSPHORUS (test code = PHOS) mg/dL 2.5-4.9 PT HARD STICK NOTIFIED BRUNILDA MERINORA @[employer].3 [id number] 11:02:00* Test Item Value Reference Range Interpretation Comments MAGNESIUM (test code = MAG) mg/dL 1.8-2.4 PT HARD STICK NOTIFIED BRUNILDA MERINORA @[facility] [id number] IONIZED 2019-03-13 11:02:00* Test Item Value Reference Range Interpretation Comments CALCIUM IONIZED (test code = CONNIE) 0.99 mmol/L 1.12-1.32 L PT HARD STICK NOTIFIED BRUNILDA QUEZADA @.LAB.SP3 03/13/270752SLBNOG3209-94-71 07:23:00* Test Item Value Reference Range Interpretation Comments GLUBED (test code = GLUBED) 88 mg/dL 74-106 N Performed by certified radio operator ground at [facility] ANTINUCLEAR ANTIBODIES [id number] 07:18:00* Test Item Value Reference Range Interpretation Comments GISELLE SCREEN (test code = ANASCR) ACUTE HEPATITIS [id number] 07:18:00* Test Item Value Reference Range Interpretation [...] with a HCV Nucleic Acid Amplification test ([id number]).Performed At: [facility] [id number] Josiah Woodard MD Ph:[phone] [id number] 01:39:00* Test Item Value Reference Range Interpretation Comments GLUBED (test code = GLUBED) 78 mg/dL 74-106 N Performed by certified radio operator ground at [facility] [id number] 20:52:00* Test Item Value Reference Range Interpretation Comments GLUBED (test code = GLUBED) 69 mg/dL 74-106 L Performed by certified radio operator ground at [facility] [id number] 17:11:00* Test Item Value Reference Range Interpretation Comments GLUBED (test code = GLUBED) 89 mg/dL 74-106 N Performed by certified radio operator ground at [facility] PROCALCITONIN (PCT)2019-03-12 16:39:00* Test Item Value Reference [...] interpreted taking into account the patients history. [id number] 13:00:00* Test Item Value Reference Range Interpretation Comments GLUBED (test code = GLUBED) 83 mg/dL 74-106 N Performed by certified radio operator ground at [facility] BASIC METABOLIC [id number] 07:49:00* Test Item Value Reference Range Interpretation [...] code = CA) 7.0 mg/dL 8.5-10.1 L [id number] 07:49:00* Test Item Value Reference Range Interpretation Comments PHOSPHORUS (test code = PHOS) 1.7 mg/dL 2.5-4.9 L [id number] 07:49:00* Test Item Value Reference Range Interpretation Comments MAGNESIUM (test code = MAG) 1.5 mg/dL 1.8-2.4 L CALCIUM [id number] 07:49:00* Test Item Value Reference Range Interpretation Comments CALCIUM IONIZED (test code = CONNIE) 1.05 mmol/L 1.12-1.32 L BASIC METABOLIC [id number] 07:46:00* Test Item Value Reference Range Interpretation [...] CALCIUM (test code = CA) mg/dL 8.5-10.1 [id number] 07:46:00* Test Item Value Reference Range Interpretation Comments PHOSPHORUS (test code = PHOS) mg/dL 2.5-4.9 [id number] 07:46:00* Test Item Value Reference Range Interpretation Comments MAGNESIUM (test code = MAG) mg/dL 1.8-2.4 CALCIUM [id number] 07:46:00* Test Item Value Reference Range Interpretation Comments CALCIUM IONIZED (test code = CONNIE) 1.05 mmol/L 1.12-1.32 L BASIC METABOLIC [id number] 07:40:00* Test Item Value Reference Range Interpretation [...] CALCIUM (test code = CA) mg/dL 8.5-10.1 [id number] 07:40:00* Test Item Value Reference Range Interpretation Comments PHOSPHORUS (test code = PHOS) mg/dL 2.5-4.9 [id number] 07:40:00* Test Item Value Reference Range Interpretation Comments MAGNESIUM (test code = MAG) mg/dL 1.8-2.4 CALCIUM [id number] 07:40:00* Test Item Value Reference Range Interpretation Comments CALCIUM IONIZED (test code = CONNIE) 1.05 mmol/L 1.12-1.32 L CBC W/AUTO [id number] 07:18:00* Test Item Value Reference Range Interpretation [...] code = NRBC#) 0.00 K/mm3 0.0-0.1 N [id number] 16:35:00* Test Item Value Reference Range Interpretation Comments GLUBED (test code = GLUBED) 97 mg/dL 74-106 N Performed by certified radio operator ground at [facility] VANCOMYCIN [id number] 11:32:00* Test Item Value Reference Range Interpretation Comments VANCOMYCIN TROUGH (test code = VANCT) 8.4 ug/mL 10-20 L [id number] 11:30:00* Test Item Value Reference Range Interpretation Comments GLUCOSE (test code = GLU) 77 mg/dL 74-106 N BASIC METABOLIC [id number] 06:44:00* Test Item Value Reference Range Interpretation [...] code = CA) 7.0 mg/dL 8.5-10.1 L [id number] 06:44:00* Test Item Value Reference Range Interpretation Comments PHOSPHORUS (test code = PHOS) 2.1 mg/dL 2.5-4.9 L [id number] 06:44:00* Test Item Value Reference Range Interpretation Comments MAGNESIUM (test code = MAG) 1.8 mg/dL 1.8-2.4 N CALCIUM [id number] 06:44:00* Test Item Value Reference Range Interpretation Comments CALCIUM IONIZED (test code = CONNIE) 1.05 mmol/L 1.12-1.32 L Previously reported result: 0.92 mmol/LEdited by: CHAZ1 on 03/11/19:34888203/11/19 0644: CA IONIZED previously reported as: 0.92 L mmol/L BASIC METABOLIC [id number] 06:38:00* Test Item Value Reference Range Interpretation [...] code = CA) 7.0 mg/dL 8.5-10.1 L [id number] 06:38:00* Test Item Value Reference Range Interpretation Comments PHOSPHORUS (test code = PHOS) 2.1 mg/dL 2.5-4.9 L [id number] 06:38:00* Test Item Value Reference Range Interpretation Comments MAGNESIUM (test code = MAG) 1.8 mg/dL 1.8-2.4 N CALCIUM [id number] 06:38:00* Test Item Value Reference Range Interpretation Comments CALCIUM IONIZED (test code = CONNIE) 0.92 mmol/L 1.12-1.32 L LACTIC [id number] 05:44:00* Test Item Value Reference Range Interpretation Comments LACTIC ACID (test code = LACT) 3.8 mmol/L 0.4-1.9 Results called to PCL1554 by V.LAB.JP1 03/11/19 0543Critical results verified and read back by Nurse?Y CBC W/AUTO [id number] 05:43:00* Test Item Value Reference Range Interpretation [...] NRBC#) 0.09 K/mm3 0.0-0.1 N CBC W/AUTO [id number] 05:43:00* Test Item Value Reference Range Interpretation [...] (test code = MDIFF) NO BASIC METABOLIC [id number] 05:28:00* Test Item Value Reference Range Interpretation [...] CALCIUM (test code = CA) mg/dL 8.5-10.1 [id number] 05:28:00* Test Item Value Reference Range Interpretation Comments PHOSPHORUS (test code = PHOS) mg/dL 2.5-4.9 [id number] 05:28:00* Test Item Value Reference Range Interpretation Comments MAGNESIUM (test code = MAG) mg/dL 1.8-2.4 CALCIUM [id number] 05:28:00* Test Item Value Reference Range Interpretation Comments CALCIUM IONIZED (test code = CONNIE) 0.92 mmol/L 1.12-1.32 L - US ABDOMEN [id number] 19:09:00 Name: [facility] : 1960 Age/S: 58 / F [address] [facility] [address] Unit #: [id number] [place] [address] Phys: Krystal Adorno Acct: [id number] Dis Date: Status: ADM IN PHONE #: [phone] Exam Date: 03/10/2019 1842 FAX #: [phone] Reason: elevated lft's, sepsis EXAMS: CPT CODE: [id number] US ABDOMEN COMPLETE 83264 REASON FOR EXAM: elevated lft's, sepsis EXAM ORDER DATE: 03/10/2019 8:04 AM Attending MMeaghan: RAQUEL Azevedo PROCEDURE: - US ABDOMEN COMPLETE [...] Technologist: Elton Roberson Trnscb Date/Time: 03/10/2019 (1908) [email or web address] Orig Print D/T: S: 03/10/2019 (1911) Probe: [...] into account the patients history. COMMENTS TO [employer] SUPERVISOR: add [id number] 16:27:00* Test Item Value Reference Range Interpretation Comments GLUBED (test code = GLUBED) 164 mg/dL 74-106 H Performed by certified radio operator ground at [facility] OSMOLALITY [id number] 16:15:00* Test Item Value Reference Range Interpretation Comments OSMOLALITY SERUM (test code = OSMO) 310 mOsm/kg 275-295 H [id number] 16:12:00* Test Item Value Reference Range Interpretation Comments TROPONIN-I (test code = TROPI) 0.078 ng/mL 0-0.045 HH Results called to EYO1923 by V.LAB.AA 03/10/19 1612Critical results verified and read back by Nurse? Y COMMENTS TO [employer] SUPERVISOR: COLLECT 3 HOURS AFTER PREVIOUS SAMPLEBASIC METABOLIC [id number] 16:11:00* Test Item Value Reference Range Interpretation Comments SODIUM (test code = NA) 142 mmol/L 136-145 N POTASSIUM (test code = K) 2.8 mmol/L 3.5-5.1 LL Re sults called to [id number] by V.LAB.AA 03/10/19 1611Critical results verified and [...] code = CA) 7.1 mg/dL 8.5-10.1 L [id number] 16:11:00* Test Item Value Reference Range Interpretation Comments PHOSPHORUS (test code = PHOS) 1.2 mg/dL 2.5-4.9 L [id number] 16:11:00* Test Item Value Reference Range Interpretation Comments MAGNESIUM (test code = MAG) 2.2 mg/dL 1.8-2.4 N UR NA,[id number] 16:09:00* Test Item Value Reference Range Interpretation Comments UR NA,RANDOM (test code = BABATUNDE) 83 mmol/L 20-110 N UR PROTEIN/CREATININE [id number] 16:09:00* Test Item Value Reference Range Interpretation [...] P/CRATIO) 2.01 RATIO 0.0-0. 20 H LACTIC [id number] 16:07:00* Test Item Value Reference Range Interpretation Comments LACTIC ACID (test code = LACT) 11.0 mmol/L 0.4-1.9 Results called to [id number] by VDeepaliLAB.AA 03/10/19 1607Critical results verified and read back by Nurse? Y UR NA,[id number] 16:00:00* Test Item Value Reference Range Interpretation Comments UR NA,RANDOM (test code = BABATUNDE) 83 mmol/L 20-110 N UR PROTEIN/CREATININE [id number] 16:00:00* Test Item Value Reference Range Interpretation Comments UR PROTEIN RANDOM (test code = PROTU) mg/dL 0.0-11.9 UR CREATININE RANDOM (test code = CREATU) mg/dL 30-125 PROTEIN/CREATININE RATIO (test code = P/CRATIO) RATIO 0.0-0. 20 CBC W/AUTO [id number] 15:46:00* Test Item Value Reference Range Interpretation [...] REQUIRED (test code = MDIFF) NO LACTIC [id number] 13:52:00* Test Item Value Reference Range Interpretation Comments LACTIC ACID (test code = LACT) 13.2 mmol/L 0.4-1.9 HH Results called to [id number] by V.LAB.[facility] 03/10/19 1351Critical results verified and read back by Nurse? Y [id number] 13:43:00* Test Item Value Reference Range Interpretation Comments TROPONIN-I (test code = TROPI) 0.063 ng/mL 0-0.045 HH COMMENTS TO [employer] SUPERVISOR: COLLECT 3 HOURS AFTER PREVIOUS SAMPLELACTIC [id number] 12:26:00* Test Item Value Reference Range Interpretation Comments LACTIC ACID (test code = LACT) 15.2 mmol/L 0.4-1.9 HH Results called to [id number] by V.LAB.[facility] 03/10/19 1225Critical results verified and read back by Nurse? Y [id number] 11:37:00* Test Item Value Reference Range Interpretation Comments GLUBED (test code = GLUBED) 114 mg/dL 74-106 H Performed by certified radio operator ground at [facility] [id number] 11:06:00* Test Item Value Reference Range Interpretation Comments PHOSPHORUS (test code = PHOS) 3.8 mg/dL 2.5-4.9 N [id number] 11:06:00* Test Item Value Reference Range Interpretation Comments MAGNESIUM (test code = MAG) 1.6 mg/dL 1.8-2.4 L CALCIUM [id number] 11:06:00* Test Item Value Reference Range Interpretation Comments CALCIUM IONIZED (test code = CONNIE) 1.03 mmol/L 1.12-1.32 L CBC W/AUTO [id number] 09:43:00* Test Item Value Reference Range Interpretation [...] = MDIFF) NO, ONLY SCAN NEEDED DIFFERENTIAL [id number] 09:43:00* Test Item Value Reference Range Interpretation [...] PLATELET MORPHOLOGY (test code = PLTMORPH) NORMAL [id number] 09:42:00* Test Item Value Reference Range Interpretation Comments GLUBED (test code = GLUBED) 89 mg/dL 74-106 N Performed by certified radio operator ground at [facility] [id number] 09:41:00* Test Item Value Reference Range Interpretation Comments PHOSPHORUS (test code = PHOS) 3.8 mg/dL 2.5-4.9 N [id number] 09:41:00* Test Item Value Reference Range Interpretation Comments MAGNESIUM (test code = MAG) 1.6 mg/dL 1.8-2.4 L CALCIUM [id number] 09:41:00* Test Item Value Reference Range Interpretation Comments CALCIUM IONIZED (test code = CONNIE) mmol/L 1.12-1.32 COMPREHENSIVE METABOLIC [id number] 09:16:00* Test Item Value Reference Range Interpretation [...] range due to change in reagent. URINALYSIS [id number] 08:48:00* Test Item Value Reference Range Interpretation [...] #/LPF FEW Urine Source? Clean CatchARTERIAL BLOOD [id number] 08:19:00* Test Item Value Reference Range Interpretation [...] O2CT) 9.7 % vol 18.0-22.0 LL URINALYSIS [id number] 08:19:00* Test Item Value Reference Range Interpretation [...] HPF NONE Urine Source? Clean CatchCBC W/AUTO [id number] 08:01:00* Test Item Value Reference Range Interpretation [...] = MDIFF) NO, ONLY SCAN NEEDED DIFFERENTIAL [id number] 08:01:00* Test Item Value Reference Range Interpretation Comments STAIN ACCEPTABILITY (test code = STN ACCEPTABLE) CABOT RINGS (test code = CAB) MORPHOLOGY COMMENT (test code = MOC) PLATELET ESTIMATE (test code = PLTEST) PLATELET MORPHOLOGY (test code = PLTMORPH) CBC W/AUTO [id number] 08:01:00* Test Item Value Reference Range Interpretation [...] = MDIFF) NO, ONLY SCAN NEEDED DIFFERENTIAL [id number] 08:01:00* Test Item Value Reference Range Interpretation Comments STAIN ACCEPTABILITY (test code = STN ACCEPTABLE) CABOT RINGS (test code = CAB) MORPHOLOGY COMMENT (test code = MOC) PLATELET ESTIMATE (test code = PLTEST) PLATELET MORPHOLOGY (test code = PLTMORPH) CBC W/AUTO [id number] 08:01:00* Test Item Value Reference Range Interpretation [...] = MDIFF) NO, ONLY SCAN NEEDED DIFFERENTIAL [id number] 08:01:00* Test Item Value Reference Range Interpretation Comments STAIN ACCEPTABILITY (test code = STN ACCEPTABLE) MORPHOLOGY COMMENT (test code = MOC) PLATELET ESTIMATE (test code = PLTEST) PLATELET MORPHOLOGY (test code = PLTMORPH) CBC W/AUTO [id number] 08:01:00* Test Item Value Reference Range Interpretation [...] = MDIFF) NO, ONLY SCAN NEEDED DIFFERENTIAL [id number] 08:01:00* Test Item Value Reference Range Interpretation Comments STAIN ACCEPTABILITY (test code = STN ACCEPTABLE) CABOT RINGS (test code = CAB) MORPHOLOGY COMMENT (test code = MOC) PLATELET ESTIMATE (test code = PLTEST) PLATELET MORPHOLOGY (test code = PLTMORPH) [id number] 07:25:00* Test Item Value Reference Range Interpretation Comments GLUBED (test code = GLUBED) 80 mg/dL 74-106 N Performed by certified radio operator ground at [facility] LACTIC [id number] 06:38:00* Test Item Value Reference Range Interpretation Comments LACTIC ACID (test code = LACT) 19.2 mmol/L 0.4-1.9 HH Results called to [id number] by V.LAB.AG1 03/10/19 0635Critical results verified and read back by Nurse? Y LACTIC [id number] 03:46:00* Test Item Value Reference Range Interpretation Comments LACTIC ACID (test code = LACT) 17.2 mmol/L 0.4-1.9 HH Results called to [id number] MIKE by PRINCEAG1 03/10/19 0345Critical results verified and read back by Nurse? Y BASIC METABOLIC [id number] 03:45:00* Test Item Value Reference Range Interpretation [...] CA) 8.0 mg/dL 8.5-10.1 L ARTERIAL BLOOD [id number] 03:32:00* Test Item Value Reference Range Interpretation [...] 18.0-22.0 L - CT ABD PELVIS W/O [id number] 01:23:00 Name: [facility] : 1960 Age/S: 58 / F [address] [facility] Unit #: [id number] Loc: [place] [address] Phys: Krystal Adorno Acct: [id number] Dis Date: Status: ADM IN PHONE #: [phone] Exam Date: 03/10/2019 0209 FAX #: [phone] Reason: abdominal pain, sepsis, open abd wound EXAMS: CPT CODE: [id number] CT ABD PELVIS W/O CONT 87143 CT abdomen and pelvis with IV contrast. [...] 1 Signed Report (CONTINUED) Name: [facility] : 1960 Age/S: 58 / F [address] [facility] Unit #: [id number] Loc: [place] [address] Phys: Krystal Adorno Acct: [id number] Dis Date: Status: ADM IN PHONE #: [phone] Exam Date: 03/10/2019208 FAX #: [phone] Reason: abdominal pain, sepsis, open abd wound EXAMS: CPT CODE: [id number] CT ABD PELVIS W/O CONT 30303 < Continued> noted, nonspecific Additional findings as detailed above at 0123 Reported and signed by: Tabitha Giordano M.D. CC: Precious Teague MD; Krystal Adorno Technologist:RT aRhul(R)(CT) CTDI: DLP: Trnscb Date/Time: 03/10/2019 (0123) [email or web address] Orig Print D/T: S: 03/10/2019 (208) PAGE 2 Signed Report ARTERIAL BLOOD [id number] 23:24:00* Test Item Value Reference Range Interpretation Comments ARTERIAL BLOOD GAS PH (test code = PHA) 7.22 7.35-7.45 L ARTERIAL BLOOD GAS PCO2 (test code = PCO2A) 9.9 mm Hg 35-45 LL Results called to and read back by Avinash : - 03/09/2019; by Jose Angel ARTERIAL BLOOD GAS PO2 (test code = PO2A) 73.0 mmHg 80-100 L BICARBONATE TOTAL HCO3 (test code = HCO3) 3.9 mmol/L 23.0-27.0 LL Results called to and read back by Avinash : - 03/09/2019; by Jose Angel BASE EXCESS (test code = DIYA) -20.7 mmol/L -3.0-5.0 LL Results called to and read back by Avinash - 03/09/2019; by Jose Angel ABG O2 SATURATION (test code = SATA) 92.3 % 90.0-98.0 N ABG TYPE (test code = TYPEA) Arterial FIO2 (test code = FIO2A) 21.0 ABG SITE (test code = SITEA) Rt BRACHIAL ARTERY LACTIC [id number] 23:14:00* Test Item Value Reference Range Interpretation Comments LACTIC ACID (test code = LACT) 15.5 mmol/L 0.4-1.9 Results called to [id number] by [email or web address] 03/09/19 2311Critical results verified and read back by Nurse? Y CBC W/AUTO [id number] 22:44:00* Test Item Value Reference Range Interpretation [...] = MDIFF) NO, ONLY SCAN NEEDED DIFFERENTIAL [id number] 22:44:00* Test Item Value Reference Range Interpretation [...] code = PLTMORPH) SIZE VARIABLE BASIC METABOLIC [id number] 22:32:00* Test Item Value Reference Range Interpretation [...] CA) 8.6 mg/dL 8.5-10.1 N HEPATIC FUNCTION [id number] 22:32:00* Test Item Value Reference Range Interpretation [...] reference range due to change in reagent. [id number] 22:32:00* Test Item Value Reference Range Interpretation Comments TROPONIN-I (test code = TROPI) 0.054 ng/mL 0-0.045 HH Results called to [id number] by [email or web address] 03/09/19 2232Critical results verified and read back by Nurse? Y BASIC METABOLIC [id number] 22:23:00* Test Item Value Reference Range Interpretation [...] code = CA) mg/dL 8.5-10.1 HEPATIC FUNCTION [id number] 22:23:00* Test Item Value Reference Range Interpretation [...] TOTAL (test code = ALKP) IUnit/L 45-117 [id number] 22:23:00* Test Item Value Reference Range Interpretation Comments TROPONIN-I (test code = TROPI) ng/mL 0-0.045 PROTHROMBIN [id number] 22:22:00* Test Item Value Reference Range Interpretation [...] (2.5-3.5) IS PATIENT ON ANTICOAGULANTS? NTHROMBOPLASTIN TIME [id number] 22:22:00* Test Item Value Reference Range Interpretation Comments THROMBOPLASTIN TIME PARTIAL (test code = PTT) 34.2 seconds 25.0-36. 5 N IS PATIENT ON ANTICOAGULANTS? N- XR CHEST 1 [id number] 22:18:00 FAX: Nikki Degroot DO Kerrick: [address]: REG Name: [facility] : [birth year] Age/S: 58/F [address] Unit #: [id number] Loc: [place] [address] Phys: ZaneNikki DO Acct: [id number] Dis Date: Status: REG ER PHONE #: [phone] Exam Date: 03/09/20192199 FAX #: [phone] Reason: Altered Mental Status EXAMS: CPT CODE: [id number] XR CHEST 1 V 47194 HISTORY: Altered Mental Status TECHNIQUE: AP chest [...] CC: Yamilet Degroot DO Technologist: RT KAREN(Eduarda) Latricia Date/Time/By: 03/09/2019 (2217) : By: [email or web address] Orig Print D/T: S: 03/09/2019 (5706) PAGE 1 Signed Report - CT HEAD/BRAIN W/O [id number] 22:17:00 Name: [facility] : 1960 Age/S: 58 / F [address] Unit #: [id number] Loc: [place] [address] Phys: Nikki Degroot DO Acct: [id number] Dis Date: Status: REG ER PHONE #: [phone] Exam Date: 03/09/20192199 FAX #: [phone] Reason: Altered Mental Status EXAMS: CPT CODE: [id number] CT HEAD/BRAIN W/O CONT 48272 HISTORY: Altered Mental Status TECHNIQUE: Noncontrast 2.5 [...] ... CTDI: DLP: Trnscb Date/Time: 03/09/2019 (2216) [email or web address] Orig Print D/T: S: 03/09/2019 (2) PAGE 1 Signed Report CBC W/AUTO [id number] 22:09:00* Test Item Value Reference Range Interpretation [...] = MDIFF) NO, ONLY SCAN NEEDED DIFFERENTIAL [id number] 22:09:00* Test Item Value Reference Range Interpretation Comments STAIN ACCEPTABILITY (test code = STN ACCEPTABLE) MORPHOLOGY COMMENT (test code = MOC) PLATELET ESTIMATE (test code = PLTEST) PLATELET MORPHOLOGY (test code = PLTMORPH) CBC W/AUTO [id number] 22:08:00* Test Item Value Reference Range Interpretation [...] = MDIFF) NO, ONLY SCAN NEEDED DIFFERENTIAL [id number] 22:08:00* Test Item Value Reference Range Interpretation Comments STAIN ACCEPTABILITY (test code = STN ACCEPTABLE) CABOT RINGS (test code = CAB) MORPHOLOGY COMMENT (test code = MOC) PLATELET ESTIMATE (test code = PLTEST) PLATELET MORPHOLOGY (test code = PLTMORPH) CBC W/AUTO [id number] 22:08:00* Test Item Value Reference Range Interpretation [...] = MDIFF) NO, ONLY SCAN NEEDED DIFFERENTIAL [id number] 22:08:00* Test Item Value Reference Range Interpretation Comments STAIN ACCEPTABILITY (test code = STN ACCEPTABLE) MORPHOLOGY COMMENT (test code = MOC) PLATELET ESTIMATE (test code = PLTEST) PLATELET MORPHOLOGY (test code = PLTMORPH) CBC W/AUTO [id number] 22:08:00* Test Item Value Reference Range Interpretation [...] = MDIFF) NO, ONLY SCAN NEEDED DIFFERENTIAL [id number] 22:08:00* Test Item Value Reference Range Interpretation Comments STAIN ACCEPTABILITY (test code = STN ACCEPTABLE) CABOT RINGS (test code = CAB) MORPHOLOGY COMMENT (test code = MOC) PLATELET ESTIMATE (test code = PLTEST) PLATELET MORPHOLOGY (test code = PLTMORPH) [id number] 21:43:00* Test Item Value Reference Range Interpretation Comments GLUBED (test code = GLUBED) 102 mg/dL 74-106 N Performed by certified radio operator ground at [facility] PROTHROMBIN [id number] 08:05:00* Test Item Value Reference Range Interpretation [...] = HCT) 25.3 % 36.0-46.0 L PROTHROMBIN [id number] 10:52:00* Test Item Value Reference Range Interpretation [...] valves (2.5-3.5) IS PATIENT ON ANTICOAGULANTS? NPROTHROMBIN [id number] 21:28:00* Test Item Value Reference Range Interpretation Comments PROTHROMBIN TIME PATIENT (test code = PTP) 141.7 seconds 9.0-14.0 H RESULT VERIFIED BY REPEAT ANALYSIS RESULTS CALLED TO [id number] BY [email or web address] 03/02/192126 INTERNATIONAL NORMAL RATIO (test code = INR) 12.0 0.8-1.2 HH Results called to [id number] by [employer] 03/02/19 2126Critical results verified and read back [...] (2.5-3.5) IS PATIENT ON ANTICOAGULANTS? NTHROMBOPLASTIN TIME [id number] 21:28:00* Test Item Value Reference Range Interpretation Comments THROMBOPLASTIN TIME PARTIAL (test code = PTT) 75.0 seconds 25.0-36. 5 H IS PATIENT ON ANTICOAGULANTS? NPROTHROMBIN [id number] 21:27:00* Test Item Value Reference Range Interpretation Comments PROTHROMBIN TIME PATIENT (test code = PTP) 141.7 seconds 9.0-14.0 H RESULTS CALLED TO [id number] BY [employer] 03/02/19 2127 INTERNATIONAL NORMAL RATIO (test code = INR) 12.0 0.8-1.2 HH Results called to [id number] by [employer] 03/02/19 2126Critical results verified and read [...] (2.5-3.5) IS PATIENT ON ANTICOAGULANTS? NTHROMBOPLASTIN TIME [id number] 21:27:00* Test Item Value Reference Range Interpretation Comments THROMBOPLASTIN TIME PARTIAL (test code = PTT) 75.0 seconds 25.0-36. 5 H IS PATIENT ON ANTICOAGULANTS? NBASIC METABOLIC [id number] 21:17:00* Test Item Value Reference Range Interpretation [...] = CA) 8.9 mg/dL 8.5-10.1 N BILIRUBIN [id number] 21:17:00* Test Item Value Reference Range Interpretation Comments BILIRUBIN TOTAL (test code = BILT) 0.80 mg/dL 0.0-1.0 N [id number] 21:17:00* Test Item Value Reference Range Interpretation Comments MAGNESIUM (test code = MAG) 1.6 mg/dL 1.8-2.4 L [id number] 21:17:00* Test Item Value Reference Range Interpretation Comments TROPONIN-I (test code = TROPI) <0.015 ng/mL 0-0.045 N BASIC METABOLIC [id number] 21:04:00* Test Item Value Reference Range Interpretation [...] (test code = CA) mg/dL 8.5-10.1 BILIRUBIN [id number] 21:04:00* Test Item Value Reference Range Interpretation Comments BILIRUBIN TOTAL (test code = BILT) mg/dL 0.0-1.0 [id number] 21:04:00* Test Item Value Reference Range Interpretation Comments MAGNESIUM (test code = MAG) mg/dL 1.8-2.4 [id number] 21:04:00* Test Item Value Reference Range Interpretation Comments TROPONIN-I (test code = TROPI) ng/mL 0-0.045 URINALYSIS [id number] 20:59:00* Test Item Value Reference Range Interpretation [...] FEW A Urine Source? Clean CatchCBC W/O [id number] 20:57:00* Test Item Value Reference Range Interpretation [...] = MPV) 10.1 fL 6.7-11.0 N URINALYSIS [id number] 20:44:00* Test Item Value Reference Range Interpretation [...] Urine Source? Clean Catch- XR CHEST 1 [id number] 20:03:00 FAX: Kiel Mathew [phone] Ker[place]: St: REG Name: [facility] : [birth year] Age/S: 58/F [address] [facility] Unit #: [id number] Loc: [place] [address] Phys: Kiel Zelaya MD Acct: [id number] Dis Date: Status: REG ER PHONE #: [phone] Exam Date: 03/02/20191944 FAX #: [phone] Reason: WEAKNESS EXAMS: CPT CODE: [id number] XR CHEST 1 V 37051 REASON FOR EXAM: WEAKNESS Exam Order Date: [...] Trnscrd Date/Time/By: 0 03/02/2019 (2002) : By: [email or web address] Orig Print D/T: S: 03/02/2019 (2005) PAGE 1 Signed Report [id number] 11:41:00* Test Item Value Reference Range Interpretation Comments GLUBED (test code = GLUBED) 100 MG/DL 70-110 N Performed by certified radio operator ground at [facility] BASIC METABOLIC [id number] 08:34:00* Test Item Value Reference Range Interpretation [...] code = CA) 7.6 mg/dL 8.0-10.5 L [id number] 08:34:00* Test Item Value Reference Range Interpretation Comments PHOSPHOROUS (test code = PHOS) 2.7 mg/dL 2.5-4.9 N [id number] 08:34:00* Test Item Value Reference Range Interpretation Comments MAGNESIUM (test code = MAG) 1.40 mg/dL 1.8-2.4 L CBC W/AUTO [id number] 08:12:00* Test Item Value Reference Range Interpretation [...] NO SLIDE REVIEWED, CONSISTENT WITH AUTO DIFF. [id number] 07:52:00* Test Item Value Reference Range Interpretation Comments GLUBED (test code = GLUBED) 94 MG/DL 70-110 N Performed by certified radio operator ground at [facility] CBC W/AUTO [id number] 07:41:00* Test Item Value Reference Range Interpretation [...] MANUAL DIFF REQUIRED (test code = MDIFF) [id number] 00:26:00* Test Item Value Reference Range Interpretation Comments GLUBED (test code = GLUBED) 125 MG/DL 70-110 H Performed by certified radio operator ground at [facility] [id number] 18:57:00* Test Item Value Reference Range Interpretation Comments GLUBED (test code = GLUBED) 96 MG/DL 70-110 N Performed by certified radio operator ground at [facility] [id number] 11:26:00* Test Item Value Reference Range Interpretation Comments GLUBED (test code = GLUBED) 113 MG/DL 70-110 H Performed by certified radio operator ground at [facility] BASIC METABOLIC [id number] 10:30:00* Test Item Value Reference Range Interpretation [...] L COMMENTS: PLEASE USE BLOOD IN LAB. THANKS![id number] 10:30:00* Test Item Value Reference Range Interpretation Comments PHOSPHOROUS (test code = PHOS) 2.7 mg/dL 2.5-4.9 N COMMENTS: PLEASE USE BLOOD IN LAB. THANKS![id number] 10:30:00* Test Item Value Reference Range Interpretation Comments MAGNESIUM (test code = MAG) 1.40 mg/dL 1.8-2.4 L COMMENTS: PLEASE USE BLOOD IN LAB. THANKS![id number] 08:12:00* Test Item Value Reference Range Interpretation Comments GLUBED (test code = GLUBED) 97 MG/DL 70-110 N Performed by certified radio operator ground at [facility] [id number] 00:57:00* Test Item Value Reference Range Interpretation Comments GLUBED (test code = GLUBED) 97 MG/DL 70-110 N Performed by certified radio operator ground at [facility] [id number] 18:05:00* Test Item Value Reference Range Interpretation Comments GLUBED (test code = GLUBED) 88 MG/DL 70-110 N Performed by certified radio operator ground at [facility] [id number] 12:17:00* Test Item Value Reference Range Interpretation Comments GLUBED (test code = GLUBED) 96 MG/DL 70-110 N Performed by certified radio operator ground at [facility] [id number] 07:33:00* Test Item Value Reference Range Interpretation Comments GLUBED (test code = GLUBED) 96 MG/DL 70-110 N Performed by certified radio operator ground at [facility] [id number] 07:33:00* Test Item Value Reference Range Interpretation Comments GLUBED (test code = GLUBED) 99 MG/DL 70-110 N Performed by certified radio operator ground at [facility] BASIC METABOLIC [id number] 05:45:00* Test Item Value Reference Range Interpretation [...] code = CA) 8.0 mg/dL 8.0-10.5 N [id number] 05:45:00* Test Item Value Reference Range Interpretation Comments PHOSPHOROUS (test code = PHOS) 2.9 mg/dL 2.5-4.9 N [id number] 05:45:00* Test Item Value Reference Range Interpretation Comments MAGNESIUM (test code = MAG) 1.50 mg/dL 1.8-2.4 L [id number] 05:45:00* Test Item Value Reference Range Interpretation Comments PREALBUMIN (test code = PREALB) 7.0 mg/dL 16.0-40.0 L [id number] 01:07:00* Test Item Value Reference Range Interpretation Comments GLUBED (test code = GLUBED) 111 MG/DL 70-110 H Performed by certified radio operator ground at [facility] [id number] 17:51:00* Test Item Value Reference Range Interpretation Comments GLUBED (test code = GLUBED) 96 MG/DL 70-110 N Performed by certified radio operator ground at [facility] [id number] 07:44:00* Test Item Value Reference Range Interpretation Comments GLUBED (test code = GLUBED) 103 MG/DL 70-110 N Performed by certified radio operator ground at [facility] BASIC METABOLIC [id number] 06:59:00* Test Item Value Reference Range Interpretation [...] code = CA) 8.1 mg/dL 8.0-10.5 N [id number] 06:59:00* Test Item Value Reference Range Interpretation Comments PHOSPHOROUS (test code = PHOS) 2.8 mg/dL 2.5-4.9 N [id number] 06:59:00* Test Item Value Reference Range Interpretation Comments MAGNESIUM (test code = MAG) 1.60 mg/dL 1.8-2.4 L TOTAL IRON BINDING [id number] 06:59:00* Test Item Value Reference Range Interpretation Comments SERUM IRON (test code = IRON) 24 mcg/dL 35-150 L TOTAL IRON BINDING CAPACITY (test code = TIBC) 153 mcg/dL 260-445 L UIBC (test code = UIBC) 129 mcg/dL IRON SATURATION (test code = FESAT) 15.7 % 14-34 N [id number] 06:59:00* Test Item Value Reference Range Interpretation Comments FERRITIN (test code = MINO) 1040.1 ng/mL 11.0-306.8 H CBC W/AUTO [id number] 06:57:00* Test Item Value Reference Range Interpretation [...] DIFF REQUIRED (test code = MDIFF) NO [id number] 06:30:00* Test Item Value Reference Range Interpretation Comments GLUBED (test code = GLUBED) 107 MG/DL 70-110 N Performed by certified radio operator ground at [facility] [id number] 00:52:00* Test Item Value Reference Range Interpretation Comments GLUBED (test code = GLUBED) 99 MG/DL 70-110 N Performed by certified radio operator ground at [facility] [id number] 18:13:00* Test Item Value Reference Range Interpretation Comments GLUBED (test code = GLUBED) 86 MG/DL 70-110 N Performed by certified radio operator ground at [facility] [id number] 12:00:00* Test Item Value Reference Range Interpretation Comments GLUBED (test code = GLUBED) 89 MG/DL 70-110 N Performed by certified radio operator ground at [facility] BASIC METABOLIC [id number] 06:12:00* Test Item Value Reference Range Interpretation [...] code = CA) 8.1 mg/dL 8.0-10.5 N [id number] 06:12:00* Test Item Value Reference Range Interpretation Comments PHOSPHOROUS (test code = PHOS) 3.3 mg/dL 2.5-4.9 N [id number] 06:12:00* Test Item Value Reference Range Interpretation Comments MAGNESIUM (test code = MAG) 1.90 mg/dL 1.8-2.4 N CBC W/AUTO [id number] 05:28:00* Test Item Value Reference Range Interpretation [...] DIFF REQUIRED (test code = MDIFF) NO [id number] 00:13:00* Test Item Value Reference Range Interpretation Comments GLUBED (test code = GLUBED) 86 MG/DL 70-110 N Performed by certified radio operator ground at [facility] [id number] 19:36:00* Test Item Value Reference Range Interpretation Comments GLUBED (test code = GLUBED) 89 MG/DL 70-110 N Performed by certified radio operator ground at [facility] [id number] 11:03:00* Test Item Value Reference Range Interpretation Comments GLUBED (test code = GLUBED) 82 MG/DL 70-110 N Performed by certified radio operator ground at [facility] [id number] 10:50:00* Test Item Value Reference Range Interpretation Comments GLUBED (test code = GLUBED) 91 MG/DL 70-110 N Performed by certified radio operator ground at [facility] BASIC METABOLIC [id number] 08:05:00* Test Item Value Reference Range Interpretation [...] code = CA) 8.1 mg/dL 8.0-10.5 N [id number] 08:05:00* Test Item Value Reference Range Interpretation Comments PHOSPHOROUS (test code = PHOS) 3.3 mg/dL 2.5-4.9 N [id number] 08:05:00* Test Item Value Reference Range Interpretation Comments MAGNESIUM (test code = MAG) 2.00 mg/dL 1.8-2.4 [id number] 01:12:00* Test Item Value Reference Range Interpretation Comments GLUBED (test code = GLUBED) 92 MG/DL 70-110 N Performed by certified radio operator ground at [facility] [id number] 20:19:00* Test Item Value Reference Range Interpretation Comments GLUBED (test code = GLUBED) 106 MG/DL 70-110 N Performed by certified radio operator ground at [facility] [id number] 20:19:00* Test Item Value Reference Range Interpretation Comments GLUBED (test code = GLUBED) 116 MG/DL 70-110 H Performed by certified radio operator ground at [facility] CBC W/AUTO [id number] 10:05:00* Test Item Value Reference Range Interpretation [...] REVIEWED, CONSISTENT WITH AUTO DIFF. BASIC METABOLIC [id number] 07:33:00* Test Item Value Reference Range Interpretation [...] code = CA) 7.8 mg/dL 8.0-10.5 L [id number] 07:33:00* Test Item Value Reference Range Interpretation Comments PHOSPHOROUS (test code = PHOS) 3.4 mg/dL 2.5-4.9 N [id number] 07:33:00* Test Item Value Reference Range Interpretation Comments MAGNESIUM (test code = MAG) 1.70 mg/dL 1.8-2.4 L CBC W/AUTO [id number] 06:40:00* Test Item Value Reference Range Interpretation [...] MANUAL DIFF REQUIRED (test code = MDIFF) [id number] 01:23:00* Test Item Value Reference Range Interpretation Comments GLUBED (test code = GLUBED) 105 MG/DL 70-110 N Performed by certified radio operator ground at [facility] [id number] 17:04:00* Test Item Value Reference Range Interpretation Comments GLUBED (test code = GLUBED) 132 MG/DL 70-110 H Performed by certified radio operator ground at [facility] [id number] 12:28:00* Test Item Value Reference Range Interpretation Comments GLUBED (test code = GLUBED) 141 MG/DL 70-110 H Performed by certified radio operator ground at [facility] PROCALCITONIN (PCT)2018-12-25 10:07:00* Test Item [...] concentrations <2 ng/mL are obtained. BASIC METABOLIC [id number] 06:07:00* Test Item Value Reference Range Interpretation [...] code = CA) 8.1 mg/dL 8.0-10.5 N [id number] 06:07:00* Test Item Value Reference Range Interpretation Comments PHOSPHOROUS (test code = PHOS) 3.2 mg/dL 2.5-4.9 N [id number] 06:07:00* Test Item Value Reference Range Interpretation Comments MAGNESIUM (test code = MAG) 1.60 mg/dL 1.8-2.4 L [id number] 05:48:00* Test Item Value Reference Range Interpretation Comments GLUBED (test code = GLUBED) 139 MG/DL 70-110 H Performed by certified radio operator ground at [facility] [id number] 05:36:00* Test Item Value Reference Range Interpretation Comments GLUBED (test code = GLUBED) 120 MG/DL 70-110 H Performed by certified radio operator ground at [facility] [id number] 23:46:00* Test Item Value Reference Range Interpretation Comments GLUBED (test code = GLUBED) 135 MG/DL 70-110 H Performed by certified radio operator ground at [facility] [id number] 22:20:00* Test Item Value Reference Range Interpretation Comments POTASSIUM (test code = K) 3.5 mEq/L 3.4-5.0 COMMENTS: REPEAT K [id number] 18:12:00* Test Item Value Reference Range Interpretation Comments GLUBED (test code = GLUBED) 133 MG/DL 70-110 H Performed by certified radio operator ground at [facility] [id number] 14:48:00* Test Item Value Reference Range Interpretation Comments POTASSIUM (test code = K) 2.8 mEq/L 3.4-5.0 LL [id number] 12:05:00* Test Item Value Reference Range Interpretation Comments TRIGLYCERIDES (test code = TRIG) 151 mg/dL 40-150 H COMMENTS: PLEASE DRAW OR ADD ON TO THIS MORNING'S [id number] 12:04:00 * Test Item Value Reference Range Interpretation Comments GLUBED (test code = GLUBED) 143 MG/DL 70-110 H Performed by certified radio operator ground at [facility] PROCALCITONIN (PCT)2018-12-24 09:26:00* Test Item [...] if any concentrations <2 ng/mL are obtained. [id number] 06:39:00* Test Item Value Reference Range Interpretation Comments GLUBED (test code = GLUBED) 131 MG/DL 70-110 H Performed by certified radio operator ground at [facility] CBC W/AUTO [id number] 06:04:00* Test Item Value Reference Range Interpretation [...] REVIEWED, CONSISTENT WITH AUTO DIFF. BASIC METABOLIC [id number] 05:45:00* Test Item Value Reference Range Interpretation [...] code = CA) 8.0 mg/dL 8.0-10.5 N [id number] 05:45:00* Test Item Value Reference Range Interpretation Comments ALBUMIN (test code = ALB) 1.30 g/dL 3.4-5.0 L [id number] 05:45:00* Test Item Value Reference Range Interpretation Comments PHOSPHOROUS (test code = PHOS) 3.0 mg/dL 2.5-4.9 N [id number] 05:45:00* Test Item Value Reference Range Interpretation Comments MAGNESIUM (test code = MAG) 1.60 mg/dL 1.8-2.4 L [id number] 05:45:00* Test Item Value Reference Range Interpretation Comments PREALBUMIN (test code = PREALB) 4.4 mg/dL 16.0-40.0 L [id number] 05:39:00* Test Item Value Reference Range Interpretation Comments GLUBED (test code = GLUBED) 139 MG/DL 70-110 H Performed by certified radio operator ground at [facility] CBC W/AUTO [id number] 05:15:00* Test Item Value Reference Range Interpretation [...] MANUAL DIFF REQUIRED (test code = MDIFF) [id number] 18:15:00* Test Item Value Reference Range Interpretation Comments GLUBED (test code = GLUBED) 141 MG/DL 70-110 H Performed by certified radio operator ground at [facility] PROCALCITONIN (PCT)2018-12-23 14:25:00* Test Item [...] if any concentrations <2 ng/mL are obtained. [id number] 13:25:00* Test Item Value Reference Range Interpretation Comments GLUBED (test code = GLUBED) 127 MG/DL 70-110 H Performed by certified radio operator ground at [facility] UA CULT [id number] 10:46:00* Test Item Value Reference Range Interpretation Comments UA WBC (test code = WBCU) 0-3 WBC/HPF 0-3 UA SQUAMOUS CELLS (test code = SQU) NONE SEEN /HPF NONE SEEN UA CULTURE NEEDED? (test code = UACULT) NO, WBC<10 Criteria Culture Chk Criteria not met, Urine Culture cancelled. LACTIC [id number] 10:12:00* Test Item Value Reference Range Interpretation Comments LACTIC ACID (test code = LACT) 1.4 mmol/L 0.4-1.9 N [id number] 08:59:00* Test Item Value Reference Range Interpretation Comments PHOSPHOROUS (test code = PHOS) 3.3 mg/dL 2.5-4.9 N COMMENTS: PLEASE USE BLOOD IN LAB. THANKS!COMMENTS: Day of initiation if not alr cecilia [id number] 08:59:00* Test Item Value Reference Range Interpretation Comments MAGNESIUM (test code = MAG) 1.90 mg/dL 1.8-2.4 N COMMENTS: PLEASE USE BLOOD IN LAB. THANKS!COMMENTS: Day of initiation if not alr cecilia [id number] 07:49:00* Test Item Value Reference Range Interpretation Comments GLUBED (test code = GLUBED) 121 MG/DL 70-110 H Performed by certified radio operator ground at [facility] BASIC METABOLIC [id number] 07:30:00* Test Item Value Reference Range Interpretation [...] CA) 7.7 mg/dL 8.0-10.5 L HEPATIC FUNCTION [id number] 07:30:00* Test Item Value Reference Range Interpretation [...] = ALKP) 158 IUnit/L 20-125 H PROTHROMBIN [id number] 06:38:00* Test Item Value Reference Range Interpretation [...] Infarction (to prevent recurrent infarct). THROMBOPLASTIN TIME [id number] 06:38:00* Test Item Value Reference Range Interpretation Comments THROMBOPLASTIN TIME PARTIAL (test code = PTT) 28.5 Seconds 25.0-39. 5 N Therapeutic Range: 61.8-83.8 Sec Effective 11/13/2013 CBC W/AUTO [id number] 06:18:00* Test Item Value Reference Range Interpretation [...] DIFF REQUIRED (test code = MDIFF) NO [id number] 05:17:00* Test Item Value Reference Range Interpretation Comments GLUBED (test code = GLUBED) 127 MG/DL 70-110 H Performed by certified radio operator ground at [facility] [id number] 19:24:00* Test Item Value Reference Range Interpretation Comments GLUBED (test code = GLUBED) 130 MG/DL 70-110 H Performed by certified radio operator ground at [facility] [id number] 16:57:00* Test Item Value Reference Range Interpretation Comments GLUBED (test code = GLUBED) 132 MG/DL 70-110 H Performed by certified radio operator ground at [facility] [id number] 13:16:00* Test Item Value Reference Range Interpretation Comments GLUBED (test code = GLUBED) 139 MG/DL 70-110 H Performed by certified radio operator ground at [facility] CBC W/AUTO [id number] 12:50:00* Test Item Value Reference Range Interpretation [...] NO SLIDE REVIEWED, CONSISTENT WITH AUTO DIFF. [id number] 08:53:00* Test Item Value Reference Range Interpretation Comments PHOSPHOROUS (test code = PHOS) 3.0 mg/dL 2.5-4.9 N COMMENTS: PLEASE USE BLOOD IN [id number] 08:53:00* Test Item Value Reference Range Interpretation Comments MAGNESIUM (test code = MAG) 1.70 mg/dL 1.8-2.4 L COMMENTS: PLEASE USE BLOOD IN LABCOMPREHENSIVE METABOLIC [id number] 06:55:00* Test Item Value Reference Range Interpretation [...] ALKP) 182 IUnit/L 20-125 H COMPREHENSIVE METABOLIC [id number] 06:51:00* Test Item Value Reference Range Interpretation [...] code = ALKP) IUnit/L 20-125 CBC W/AUTO [id number] 06:20:00* Test Item Value Reference Range Interpretation [...] MANUAL DIFF REQUIRED (test code = MDIFF) [id number] 05:07:00* Test Item Value Reference Range Interpretation Comments GLUBED (test code = GLUBED) 138 MG/DL 70-110 H Performed by certified radio operator ground at [facility] [id number] 23:21:00* Test Item Value Reference Range Interpretation Comments GLUBED (test code = GLUBED) 111 MG/DL 70-110 H Performed by certified radio operator ground at [facility] [id number] 20:44:00* Test Item Value Reference Range Interpretation Comments POTASSIUM (test code = K) 3.1 mEq/L 3.4-5.0 L [id number] 20:11:00* Test Item Value Reference Range Interpretation Comments GLUBED (test code = GLUBED) 138 MG/DL 70-110 H Performed by certified radio operator ground at [facility] [id number] 16:07:00* Test Item Value Reference Range Interpretation Comments GLUBED (test code = GLUBED) 132 MG/DL 70-110 H Performed by certified radio operator ground at [facility] - XR CHEST 1 [id number] 16:02:00 FAX: Shakila Granados MD [phone] [place]: St: ADM FAX: Jordy Martinez DO [phone] FAX: Dwayne Millan [phone] Name: HEIDI STEINER [facility] : 1960 Age/S: 58/F [address] [place] [address] Bl Unit #: [id number] Loc: G.M324 [place] [address] Phys: Shakila hKan MD Acct: [id number] Dis Date: Status: ADM IN PH ONE #: [phone] Exam Date: 12/21/2018 1552 FAX #: [phone] Reason: BNP 1753, EDEMA EXAMS: CPT CODE: [id number] XR CHEST 1 V 72650 Clinical Indic ation: BNP 1753, EDEMA Comparison: [...] ight side since the last exam. SL: [id number] at 1602 Reported and signed by: Candido Head M.D. CC: Shakila Khan MD; Jordy Gambino DO; Joycelyn Person MD Technologist: Pamela Neumann, RT(R), RTT Trnscrd Date/Time/By: 12/21/2018 (5500) : By: [email or web address] Orig Print D/T: S: 12/21/2018 (6621) PAGE 1 Signed Report LACTIC [id number] 14:29:00* Test Item Value Reference Range Interpretation Comments LACTIC ACID (test code = LACT) 1.1 mmol/L 0.4-1.9 N [id number] 14:28:00* Test Item Value Reference Range Interpretation Comments AMMONIA (test code = AMM) < 10 umol/L 0-35 N ARTERIAL BLOOD [id number] 14:06:00* Test Item Value Reference Range Interpretation [...] = GLADYS) Room Air Performed by certified radio operator ground at [facility] ABG TEMPERATURE (test code = TEMPA) 98.6 F ABG SITE (test code = SITEA) R Rad TCO2 ARTERIAL (test code = TCO2A) 21 B-TYPE NATRIURETIC [id number] 12:49:00* Test Item Value Reference Range Interpretation Comments B-TYPE NATRIURETIC PEPTIDE (test code = BNP) 1753.9 PG/ML 0-100 H [id number] 12:00:00* Test Item Value Reference Range Interpretation Comments GLUBED (test code = GLUBED) 149 MG/DL 70-110 H Performed by certified radio operator ground at [facility] PROTHROMBIN [id number] 11:11:00* Test Item Value Reference Range Interpretation [...] Infarction (to prevent recurrent infarct). THROMBOPLASTIN TIME [id number] 11:11:00* Test Item Value Reference Range Interpretation Comments THROMBOPLASTIN TIME PARTIAL (test code = PTT) 31.0 Seconds 25.0-39. 5 N Therapeutic Range: 61.8-83.8 Sec Effective 11/13/2013 [id number] 11:11:00* Test Item Value Reference Range Interpretation Comments FIBRINOGEN (test code = FIB) 707 MG/DL 160-450 H Excess administration of anticoagulants and/or FibrinDegradation Products may affect Fibrinogen value. CBC W/AUTO [id number] 09:03:00* Test Item Value Reference Range Interpretation [...] DIFF REQUIRED (test code = MDIFF) PLT [id number] 09:03:00* Test Item Value Reference Range Interpretation Comments PLATELET ESTIMATE (test code = PLTEST) 60-75 THOUSAND ADEQUATE PLATELET MORPHOLOGY (test code = PLTMORPH) LARGE PLATELETS CBC W/AUTO [id number] 09:03:00* Test Item Value Reference Range Interpretation [...] SLIDE REVIEWED, CONSISTENT WITH AUTO DIFF. PLT [id number] 09:03:00* Test Item Value Reference Range Interpretation Comments PLATELET ESTIMATE (test code = PLTEST) 60-75 THOUSAND ADEQUATE PLATELET MORPHOLOGY (test code = PLTMORPH) LARGE PLATELETS [id number] 06:17:00* Test Item Value Reference Range Interpretation Comments GLUBED (test code = GLUBED) 145 MG/DL 70-110 H Performed by certified radio operator ground at [facility] BASIC METABOLIC [id number] 05:54:00* Test Item Value Reference Range Interpretation [...] code = CA) 8.1 mg/dL 8.0-10.5 N [id number] 05:54:00* Test Item Value Reference Range Interpretation Comments PHOSPHOROUS (test code = PHOS) 3.4 mg/dL 2.5-4.9 [id number] 05:54:00* Test Item Value Reference Range Interpretation Comments MAGNESIUM (test code = MAG) 1.60 mg/dL 1.8-2.4 L [id number] 05:54:00* Test Item Value Reference Range Interpretation Comments PREALBUMIN (test code = PREALB) 5.6 mg/dL 16.0-40.0 L CBC W/AUTO [id number] 05:23:00* Test Item Value Reference Range Interpretation [...] DIFF REQUIRED (test code = MDIFF) PLT [id number] 05:23:00* Test Item Value Reference Range Interpretation Comments PLATELET ESTIMATE (test code = PLTEST) THOUSAND ADEQUATE CBC W/AUTO [id number] 05:23:00* Test Item Value Reference Range Interpretation [...] DIFF REQUIRED (test code = MDIFF) PLT [id number] 05:23:00* Test Item Value Reference Range Interpretation Comments PLATELET ESTIMATE (test code = PLTEST) THOUSAND ADEQUATE [id number] 00:44:00* Test Item Value Reference Range Interpretation Comments GLUBED (test code = GLUBED) 127 MG/DL 70-110 H Performed by certified radio operator ground at [facility] CBC W/AUTO [id number] 21:41:00* Test Item Value Reference Range Interpretation [...] REQUIRED (test code = MDIFF) NO PLT [id number] 21:41:00* Test Item Value Reference Range Interpretation Comments PLATELET ESTIMATE (test code = PLTEST) 80-100 THOUSAND ADEQUATE PLATELET MORPHOLOGY (test code = PLTMORPH) LARGE PLATELETS LARGE PLTS AND GIANT PLTS SEEN CBC W/AUTO [id number] 21:39:00* Test Item Value Reference Range Interpretation [...] REQUIRED (test code = MDIFF) NO PLT [id number] 21:39:00* Test Item Value Reference Range Interpretation Comments PLATELET ESTIMATE (test code = PLTEST) THOUSAND ADEQUATE CBC W/AUTO [id number] 21:39:00* Test Item Value Reference Range Interpretation [...] REQUIRED (test code = MDIFF) NO PLT [id number] 21:39:00* Test Item Value Reference Range Interpretation Comments PLATELET ESTIMATE (test code = PLTEST) THOUSAND ADEQUATE CBC W/AUTO [id number] 21:35:00* Test Item Value Reference Range Interpretation [...] (test code = MDIFF) NO CBC W/AUTO [id number] 20:47:00* Test Item Value Reference Range Interpretation [...] MANUAL DIFF REQUIRED (test code = MDIFF) [id number] 17:22:00* Test Item Value Reference Range Interpretation Comments GLUBED (test code = GLUBED) 95 MG/DL 70-110 N Performed by certified radio operator ground at [facility] [id number] 17:14:00 FAX: Jordy Martinez DO [phone] [place]: St: ADM FAX: Dwayne Millan [phone] Name: HEIDI STEINER [facility] : 1960 Age/S: 58/F [address] [place] [address] Unit #: [id number] Loc: G.M324 [facility] [place] [address] Phys: Joycelyn Person MD Acct: [id number] Dis Date: Status: ADM IN PHONE #: [phone] Exam Date: 12/20/2018 1651 FAX #: [phone] Reason: VASCULAR ACCESS FOR IVC FILTER PLACEMENT EXAMS: CPT CODE: [id number] [facility] ACCESS 00849 PROCEDURE: Inferior vena cavogram. Placement of retr [...] Signed Report (CONTINUED) FAX: Jordy Martinez DO [phone] [place]: St: ADM FAX: Dwayne Millan -------- Name: HEIDI STEINER [facility] : 1960 Age/S: 58/F [address] [place], [place] [address]vd Unit #: [id number] Loc: G.M324 [place] [address] Phys: Joycelyn Araiza MD Acct: [id number] Dis Date: Status: ADM IN [facility] NE #: [phone] Exam Date: 12/20/20181650 FAX #: [phone] Reason: VASCULAR ACCESS FOR IVC FILTER PLACEMENT E XAMS: CPT CODE: [id number] [facility] 00172 <Continued> IMPRESSION: 1. Technically successful placement of retrievable inferior vena cava filter using ultrasound and fluoroscopic guidance. 2. Normal inferior vena cavogram. at 1714 Reported and signed by: Madelyn Christine D.O. CC: Jordy Gambino DO; Joycelyn Person MD Technologist: Angela Kemp RT(R); Lori Ibarra RT(R)(CT) Trnarrd Date/Time/By: 12/20/2018 (1713) : By: [email or web address] Orig Print D/T: S: 12/20/2018 (1178) PAGE 2 Signed Report - INSERT IVC ENDO [id number] 17:14:00 FAX: Jordy Martinez DO [phone] [place]: St: ADM FAX: Dre Lezama MD [phone] FAX: Dwayne Millan [phone] --------- Name: HEIDI STEINER [facility] : 1960 Age/S: 58/F [address] [place] [address] it #: [id number] Loc: G.24 [place] [address] Phys: Dre Alejandre MD Acct: [id number] Dis Date: Status: ADM IN PH ONE #: [phone] Exam Date: 12/20/2018 165 FAX #: [phone] Reason: EXAMS: CPT CODE: [id number] IN SERT IVC ENDO W/IMAG 09574 PROCEDURE: Inferior vena cavogram. Placement of retrievable [...] Report ( CONTINUED) FAX: Jordy Martinez DO [phone] [place]: St: [facility] FAX: Dre Lezama MD [phone] FAX: Beatrice Millan [phone] Name: HEIDI STEINER [facility] : 1960 Age/S: 58/F [address] [place] [address] Blvd Unit #: [id number] Loc: G.M324 [place] [address] Phys: Dre Alejandre MD cct: [id number] Dis Date: Status: ADM IN PHONE #: [phone] Exam Date: 12/20/2018 165 FAX #: [phone] Reason: EXAMS: CPT CODE: [id number] INSERT IVC ENDO W/IMAG 33319 < Continued> IMPRESSION: 1. Technically successful placement of retrievable inferior vena cava filter using ultrasound and fluoroscopic guidance. 2. Normal inferior vena cavogram. at 2322 Reported and signed by: Madelyn Christine D.O. CC: Jordy Gambino DO; Dre Alejandre MD; Joycelyn Person MD Technologist: Angela Kemp RT(R); Lori Ibarra RT(R)(CT) Trnscrd Date/Time/By: 12/20/2018 (490) : By: [email or web address] Orig Print D/T: S: 12/20/2018 (4883) PAGE 2 Signed Report [id number] 15:07:00* Test Item Value Reference Range Interpretation Comments GLUBED (test code = GLUBED) 130 MG/DL 70-110 H Performed by certified radio operator ground at [facility] CBC W/AUTO [id number] 10:03:00* Test Item Value Reference Range Interpretation [...] To be done morning of Heart CathPLT [id number] 10:03:00* Test Item Value Reference Range Interpretation Comments PLATELET ESTIMATE (test code = PLTEST) 68-85 THOUSAND ADEQUATE PLATELET MORPHOLOGY (test code = PLTMORPH) LARGE PLATELETS LARGE PLTS AND FEW GIANT PLTS SEEN COMMENTS: To be done morning of Heart CathCBC W/AUTO [id number] 10:01:00* Test Item Value Reference Range Interpretation [...] To be done morning of Heart CathPLT [id number] 10:01:00* Test Item Value Reference Range Interpretation Comments PLATELET ESTIMATE (test code = PLTEST) THOUSAND ADEQUATE COMMENTS: To be done morning of Heart CathCBC W/AUTO [id number] 10:01:00* Test Item Value Reference Range Interpretation [...] To be done morning of Heart CathPLT [id number] 10:01:00* Test Item Value Reference Range Interpretation Comments PLATELET ESTIMATE (test code = PLTEST) THOUSAND ADEQUATE COMMENTS: To be done morning of Heart CathSURGICAL [id number] 08:26:00 RUN DATE: 12/20/18 [facility] *LIVE* PAGE 1 RUN TIME: 825 Specimen Inqui ry RUN USER: INTERFACE PATIENT: HEIDI STEINER ACCT #: [id number] LOC: [facility] U #: [id number] AGE/SX: 58/F ROOM: [facility] RE11/29/18REG DR: Long Person : 56 BED: 1 DIS: STATUS: ADM IN TLOC: SPEC #: [id number] RECD: 12/17/18 STATUS: SIVAN LISY #: [id number] THOMPSON: 12/17/[address]: Long Person MD ENTERED: 12/19/18 SP TYPE: SURG SPEC OTHR DR: Shakila Mayorga i, MD, Svetang V MD Gibberman, Jeffrey B MD Jogi, Vikas MD Kirkwood,Jordy Lynch ,Dre Hackett MD, MD, Abdul R MD Pustilni k, Terri B MDORDERED: GM LEVEL 4 CODES: [id number] - SOFT TISSUES, N [id number] - COLON, NOS COPIES TO: [place] [address] [place] [address] Judith Orozco MD [address] [place] [address] Jordan Aldridge MD 119[address] [facility] [address] [place], [place] [address] Naif Alex MD [address] [place] [address] 98 Jordy Gambino DO [address] [facility] [address] [place] [address] Terrence Bourgeois JR, MD 100[address] [facility] [address] [place] [address] CONTINUED ON NEXT PAGE RUN DATE: 12/20/18 [facility] *COLETTE WARE* PAGE 2 RUN TIME: 825 Speci men Inquiry RUN USER: INTERFACE SPEC #: [id number] PATIENT: HEIDI SENA #[id number] (Continued) COPIES TO: (Dre Singh MD [address] [place] [address] Kleber Mercado MD [address] [facility] [email or web address]] [place] [address] Jami Blas MD [address] [place] [address] [place] [address] Joycelyn Person MD [address] [facility] [address] [place] [address] [email or web address] PROCED URES: GM LEVEL 4 (Incomplete) TISSUES: [...] c olon adjacent to stapled margin (C)-(D) office machines sales representative sections. Received in formalin labeled abdominal wall necrotic fat skin and adipose is a 13 x 9 x 3 cm aggregate of more skin with areas of ulceration and galdamez d iscoloration with underlying indurated adipose. Computer Systems Engineer sections are submitted (E)-(J). MICROSC OPIC EXAMINATION: Specimen #1 reveals skin and colonic tissue with CONTINUED ON NEXT PAGE RUN DATE: 12/20/18 [facility] *LIVE* PAGE 3 RUN DWAYNE E: 0826 Specimen Inquiry RUN USER: INTERFACE -SPEC #: [id number] PATIENT: HEIDI STEINER #[id number] (Continued) GROSS AND MICROSCOPIC (Continued) necro sis, hemorrhage, acute and chronic inflammation. The second specimen reveals skin and subcutaneous tissue with necrosis, hemorrhage, and acute and chronic inflammation. POST-OP DIAGNOSIS None given PRE-OP DIAGNOSIS None given Elicia santiago SIGNATURE ON FILE Christie Sylvester MD 12/20/18 0826 -- END OF REPORT BASIC METABOLIC [id number] 06:05:00* Test Item Value Reference Range Interpretation [...] be done morning of Heart CathHEPATIC FUNCTION [id number] 06:05:00* Test Item Value Reference Range Interpretation [...] COMMENTS: To be done morning of Heart [id number] 06:05:00* Test Item Value Reference Range Interpretation Comments PHOSPHOROUS (test code = PHOS) 1.9 mg/dL 2.5-4.9 L COMMENTS: To be done morning of Heart [id number] 06:05:00* Test Item Value Reference Range Interpretation Comments MAGNESIUM (test code = MAG) 1.80 mg/dL 1.8-2.4 N COMMENTS: To be done morning of Heart CathBASIC METABOLIC [id number] 06:03:00* Test Item Value Reference Range Interpretation [...] be done morning of Heart CathHEPATIC FUNCTION [id number] 06:03:00* Test Item Value Reference Range Interpretation [...] COMMENTS: To be done morning of Heart [id number] 06:03:00* Test Item Value Reference Range Interpretation Comments PHOSPHOROUS (test code = PHOS) 1.9 mg/dL 2.5-4.9 L COMMENTS: To be done morning of Heart [id number] 06:03:00* Test Item Value Reference Range Interpretation Comments MAGNESIUM (test code = MAG) 1.80 mg/dL 1.8-2.4 N COMMENTS: To be done morning of Heart CathCBC W/AUTO [id number] 05:51:00* Test Item Value Reference Range Interpretation [...] COMMENTS: To be done morning of Heart [id number] 00:01:00* Test Item Value Reference Range Interpretation Comments GLUBED (test code = GLUBED) 130 MG/DL 70-110 H Performed by certified radio operator ground at [facility] [id number] 18:08:00* Test Item Value Reference Range Interpretation Comments GLUBED (test code = GLUBED) 128 MG/DL 70-110 H Performed by certified radio operator ground at [facility] CBC W/AUTO [id number] 14:27:00* Test Item Value Reference Range Interpretation [...] WITH AUTO DIFF. COMMENTS: Daily while in [id number] 12:45:00* Test Item Value Reference Range Interpretation Comments GLUBED (test code = GLUBED) 125 MG/DL 70-110 H Performed by certified radio operator ground at [facility] CBC W/AUTO [id number] 10:40:00* Test Item Value Reference Range Interpretation [...] WITH AUTO DIFF. COMMENTS: Daily while in ICUCBC W/AUTO [id number] 07:23:00* Test Item Value Reference Range Interpretation [...] MDIFF) COMMENTS: Daily while in ICUBASIC METABOLIC [id number] 07:17:00* Test Item Value Reference Range Interpretation [...] N COMMENTS: Daily while in ICUHEPATIC FUNCTION [id number] 07:17:00* Test Item Value Reference Range Interpretation [...] IUnit/L 20-125 H COMMENTS: Daily while in [id number] 07:17:00* Test Item Value Reference Range Interpretation Comments PHOSPHOROUS (test code = PHOS) 1.8 mg/dL 2.5-4.9 L COMMENTS: Daily while in [id number] 07:17:00* Test Item Value Reference Range Interpretation Comments MAGNESIUM (test code = MAG) 2.00 mg/dL 1.8-2.4 COMMENTS: Daily while in ICUBASIC METABOLIC [id number] 07:16:00* Test Item Value Reference Range Interpretation [...] N COMMENTS: Daily while in ICUHEPATIC FUNCTION [id number] 07:16:00* Test Item Value Reference Range Interpretation [...] ALKP) IUnit/L 20-125 COMMENTS: Daily while in [id number] 07:16:00* Test Item Value Reference Range Interpretation Comments PHOSPHOROUS (test code = PHOS) 1.8 mg/dL 2.5-4.9 L COMMENTS: Daily while in [id number] 07:16:00* Test Item Value Reference Range Interpretation Comments MAGNESIUM (test code = MAG) 2.00 mg/dL 1.8-2.4 COMMENTS: Daily while in [id number] 06:08:00* Test Item Value Reference Range Interpretation Comments GLUBED (test code = GLUBED) 138 MG/DL 70-110 H Performed by certified radio operator ground at [facility] [id number] 00:16:00* Test Item Value Reference Range Interpretation Comments GLUBED (test code = GLUBED) 144 MG/DL 70-110 H Performed by certified radio operator ground at [facility] [id number] 19:47:00* Test Item Value Reference Range Interpretation Comments POTASSIUM (test code = K) 3.1 mEq/L 3.4-5.0 L [id number] 18:03:00* Test Item Value Reference Range Interpretation Comments GLUBED (test code = GLUBED) 120 MG/DL 70-110 H Performed by certified radio operator ground at [facility] CBC W/AUTO [id number] 12:48:00* Test Item Value Reference Range Interpretation [...] MDIFF) NO COMMENTS: Daily while in ICUPLT [id number] 12:48:00* Test Item Value Reference Range Interpretation Comments PLATELET ESTIMATE (test code = PLTEST) 32-40 THOUSAND ADEQUATE PLATELET MORPHOLOGY (test code = PLTMORPH) GIANT PLATELETS COMMENTS: Daily while in [id number] 12:07:00* Test Item Value Reference Range Interpretation Comments GLUBED (test code = GLUBED) 142 MG/DL 70-110 H Performed by certified radio operator ground at [facility] - XR CHEST 1 [id number] 07:13:00 FAX: Jordy Martinez DO [phone] [place]: St: ADM FAX: Alexsandra Barron MD [phone] FAX: Dwayne Millan [phone] Name: HEIDI STEINER [facility] : 1960 Age/S: 58/F [address] [place] [address] Unit #: [id number] Loc: G.24 [place] [address] Phys: Alexsandra Barron MD Acct: [id number] Dis Date: Status: ADM IN ONE #: [phone] Exam Date: 12/18/2018523 FAX #: [phone] Reason: ETT EXAMS: CPT CODE: [id number] XR CHEST 1 V 07673 - XR CHEST 1 V 12/18/2018 5:00 [...] By: [email or web address] Orig Print D/T: S: 12/18/2018 (0761) PAGE 1 Signed Report BASIC METABOLIC [id number] 06:27:00* Test Item Value Reference Range Interpretation [...] L COMMENTS: Daily while in ICUHEPATIC FUNCTION [id number] 06:27:00* Test Item Value Reference Range Interpretation [...] IUnit/L 20-125 H COMMENTS: Daily while in [id number] 06:27:00* Test Item Value Reference Range Interpretation Comments PHOSPHOROUS (test code = PHOS) 2.6 mg/dL 2.5-4.9 N COMMENTS: Daily while in [id number] 06:27:00* Test Item Value Reference Range Interpretation Comments MAGNESIUM (test code = MAG) 1.60 mg/dL 1.8-2.4 L COMMENTS: Daily while in ICUCBC W/AUTO [id number] 06:14:00* Test Item Value Reference Range Interpretation [...] MDIFF) NO COMMENTS: Daily while in ICUPLT [id number] 06:14:00* Test Item Value Reference Range Interpretation Comments PLATELET ESTIMATE (test code = PLTEST) THOUSAND ADEQUATE COMMENTS: Daily while in ICUCBC W/AUTO [id number] 06:14:00* Test Item Value Reference Range Interpretation [...] MDIFF) NO COMMENTS: Daily while in ICUPLT [id number] 06:14:00* Test Item Value Reference Range Interpretation Comments PLATELET ESTIMATE (test code = PLTEST) THOUSAND ADEQUATE COMMENTS: Daily while in [id number] 06:05:00* Test Item Value Reference Range Interpretation Comments GLUBED (test code = GLUBED) 126 MG/DL 70-110 H Performed by certified radio operator ground at [facility] [id number] 00:16:00* Test Item Value Reference Range Interpretation Comments GLUBED (test code = GLUBED) 128 MG/DL 70-110 H Performed by certified radio operator ground at [facility] [id number] 18:13:00* Test Item Value Reference Range Interpretation Comments GLUBED (test code = GLUBED) 120 MG/DL 70-110 H Performed by certified radio operator ground at [facility] CBC W/AUTO [id number] 12:53:00* Test Item Value Reference Range Interpretation [...] AUTO DIFF. COMMENTS: Daily while in ICUPLT [id number] 12:53:00* Test Item Value Reference Range Interpretation Comments PLATELET ESTIMATE (test code = PLTEST) 44-55 THOUSAND ADEQUATE PLATELET MORPHOLOGY (test code = PLTMORPH) LARGE PLATELETS COMMENTS: Daily while in ICUCBC W/AUTO [id number] 12:52:00* Test Item Value Reference Range Interpretation [...] AUTO DIFF. COMMENTS: Daily while in ICUPLT [id number] 12:52:00* Test Item Value Reference Range Interpretation Comments PLATELET ESTIMATE (test code = PLTEST) THOUSAND ADEQUATE COMMENTS: Daily while in ICUCBC W/AUTO [id number] 12:52:00* Test Item Value Reference Range Interpretation [...] AUTO DIFF. COMMENTS: Daily while in ICUPLT [id number] 12:52:00* Test Item Value Reference Range Interpretation Comments PLATELET ESTIMATE (test code = PLTEST) THOUSAND ADEQUATE COMMENTS: Daily while in ICUCBC W/AUTO [id number] 12:50:00* Test Item Value Reference Range Interpretation [...] WITH AUTO DIFF. COMMENTS: Daily while in [id number] 11:41:00* Test Item Value Reference Range Interpretation Comments GLUBED (test code = GLUBED) 151 MG/DL 70-110 H Performed by certified radio operator ground at [facility] - XR CHEST 1 [id number] 07:28:00 FAX: Jordy Martinez DO [phone] [place]: St: ADM FAX: Alexsandra Barron MD [phone] FAX: Dwayne Millan [phone] Name: HIEDI STEINER [facility] Jesus Zapata : 1960 Age/S: 58/F [address] [place] [address] Unit #: [id number] Loc: Robson24 [place] [address] Phys: Alexsandra Barron MD Acct: [id number] Dis Date: Status: ADM IN ONE #: [phone] Exam Date: 12/17/2018 05 FAX #: [phone] Reason: ETT EXAMS: CPT CODE: [id number] XR CHEST 1 V 30248 - XR CHEST 1 V 12/17/2018 5:00 [...] in bilateral perihilar densities. SL: CY-H at 0714 Reported and s igned by: Jordy Sue M.D. CC: Jordy Gambino DO; Alexsandra Barron MD; Enoch Person MD Technologist: Elvis Jang; RT Tamika(R) Trnscrd Date/Time/By: 12/17/2018 (07) : By: [email or web address] Orig Print D/T: S: 12/17/2018 (0705) PAGE 1 Signed Report CBC W/AUTO [id number] 06:50:00* Test Item Value Reference Range Interpretation [...] MDIFF) COMMENTS: Daily while in ICUBASIC METABOLIC [id number] 06:50:00* Test Item Value Reference Range Interpretation [...] L COMMENTS: Daily while in ICUHEPATIC FUNCTION [id number] 06:50:00* Test Item Value Reference Range Interpretation [...] IUnit/L 20-125 N COMMENTS: Daily while in [id number] 06:50:00* Test Item Value Reference Range Interpretation Comments PHOSPHOROUS (test code = PHOS) 2.2 mg/dL 2.5-4.9 L COMMENTS: Daily while in [id number] 06:50:00* Test Item Value Reference Range Interpretation Comments MAGNESIUM (test code = MAG) 2.00 mg/dL 1.8-2.4 N COMMENTS: Daily while in ICUBASIC METABOLIC [id number] 06:45:00* Test Item Value Reference Range Interpretation [...] L COMMENTS: Daily while in ICUHEPATIC FUNCTION [id number] 06:45:00* Test Item Value Reference Range Interpretation [...] ALKP) IUnit/L 20-125 COMMENTS: Daily while in [id number] 06:45:00* Test Item Value Reference Range Interpretation Comments PHOSPHOROUS (test code = PHOS) 2.2 mg/dL 2.5-4.9 L COMMENTS: Daily while in [id number] 06:45:00* Test Item Value Reference Range Interpretation Comments MAGNESIUM (test code = MAG) 2.00 mg/dL 1.8-2.4 N COMMENTS: Daily while in [id number] 05:53:00* Test Item Value Reference Range Interpretation Comments GLUBED (test code = GLUBED) 149 MG/DL 70-110 H Performed by certified radio operator ground at [facility] ARTERIAL BLOOD [id number] 03:50:00* Test Item Value Reference Range Interpretation [...] = PEEPA) 5 cmH2O Performed by certified radio operator ground at [facility] ABG TEMPERATURE (test code = TEMPA) 98.6 F ABG SITE (test code = SITEA) Art line PREDICTED AA GRADIENT (test code = AP) 62 PREDICTED PO2 (test code = OP) 178 a/A RATIO (test code = RATIO) 0.74 TCO2 ARTERIAL (test code = TCO2A) 26 A-A GRADIENT (test code = AAGRADE) 63 [id number] 23:07:00* Test Item Value Reference Range Interpretation Comments GLUBED (test code = GLUBED) 142 MG/DL 70-110 H Performed by certified radio operator ground at [facility] [id number] 23:07:00* Test Item Value Reference Range Interpretation Comments GLUBED (test code = GLUBED) 150 MG/DL 70-110 H Performed by certified radio operator ground at [facility] CBC W/AUTO [id number] 20:38:00* Test Item Value Reference Range Interpretation [...] SLIDE REVIEWED, CONSISTENT WITH AUTO DIFF. PLT [id number] 20:38:00* Test Item Value Reference Range Interpretation Comments PLATELET ESTIMATE (test code = PLTEST) 92-115 THOUSAND ADEQUATE PLATELET MORPHOLOGY (test code = PLTMORPH) LARGE PLATELETS CBC W/AUTO [id number] 20:37:00* Test Item Value Reference Range Interpretation [...] SLIDE REVIEWED, CONSISTENT WITH AUTO DIFF. PLT [id number] 20:37:00* Test Item Value Reference Range Interpretation Comments PLATELET ESTIMATE (test code = PLTEST) THOUSAND ADEQUATE CBC W/AUTO [id number] 20:37:00* Test Item Value Reference Range Interpretation [...] SLIDE REVIEWED, CONSISTENT WITH AUTO DIFF. PLT [id number] 20:37:00* Test Item Value Reference Range Interpretation Comments PLATELET ESTIMATE (test code = PLTEST) THOUSAND ADEQUATE CBC W/AUTO [id number] 20:04:00* Test Item Value Reference Range Interpretation [...] MANUAL DIFF REQUIRED (test code = MDIFF) [id number] 13:14:00* Test Item Value Reference Range Interpretation Comments GLUBED (test code = GLUBED) 172 MG/DL 70-110 H Performed by certified radio operator ground at [facility] CBC W/AUTO [id number] 10:53:00* Test Item Value Reference Range Interpretation [...] AUTO DIFF. COMMENTS: Daily while in ICUPLT [id number] 10:53:00* Test Item Value Reference Range Interpretation Comments PLATELET ESTIMATE (test code = PLTEST) THOUSAND ADEQUATE COMMENTS: Daily while in ICUCBC W/AUTO [id number] 10:53:00* Test Item Value Reference Range Interpretation [...] AUTO DIFF. COMMENTS: Daily while in ICUPLT [id number] 10:53:00* Test Item Value Reference Range Interpretation Comments PLATELET ESTIMATE (test code = PLTEST) 108-135 THOUSAND ADEQUATE PLATELET MORPHOLOGY (test code = PLTMORPH) GIANT PLATELETS COMMENTS: Daily while in ICUCBC W/AUTO [id number] 10:53:00* Test Item Value Reference Range Interpretation [...] AUTO DIFF. COMMENTS: Daily while in ICUPLT [id number] 10:53:00* Test Item Value Reference Range Interpretation Comments PLATELET ESTIMATE (test code = PLTEST) THOUSAND ADEQUATE COMMENTS: Daily while in ICUCBC W/AUTO [id number] 10:51:00* Test Item Value Reference Range Interpretation [...] AUTO DIFF. COMMENTS: Daily while in ICUPROTHROMBIN [id number] 08:00:00* Test Item Value Reference Range Interpretation [...] Acute Myocardial Infarction (to prevent recurrent infarct). [id number] 08:00:00* Test Item Value Reference Range Interpretation Comments FIBRINOGEN (test code = FIB) 285 MG/DL 160-450 N Excess administration of anticoagulants and/or FibrinDegradation Products may affect Fibrinogen value. - XR CHEST 1 [id number] 07:44:00 FAX: Salud Pavon MD [place]: St: ADM FAX: Jordy Martinez DO [phone] FAX: Dwayne Millan [phone] Name: HEIDI STEINER [facility] : 1960 Age/S: 58/F [address] [place] [address] Unit #: [id number] Loc: G.M324 [place] [address] Phys: Salud Pavon MD Acct: [id number] Dis Date: Status: ADM IN PH ONE #: [phone] Exam Date: 12/16/2018 0550 FAX #: [phone] Reason: intubated/vented EXAMS: CPT CODE: [id number] XR CHEST 1 V 88182 CHEST, SINGLE VIEW HISTORY: Rectal cancer, intubated [...] By: Fernando Orig Print D/T: S: 12/16/2018 (0747) PAGE 1 Signed Report HEPATIC FUNCTION [id number] 07:20:00* Test Item Value Reference Range Interpretation [...] code = ALKP) 79 IUnit/L 20-125 N [id number] 07:20:00* Test Item Value Reference Range Interpretation Comments TRIGLYCERIDES (test code = TRIG) 116 mg/dL 40-150 N BASIC METABOLIC [id number] 07:15:00* Test Item Value Reference Range Interpretation [...] mg/dL 8.0-10.5 L COMMENTS: Daily while in [id number] 07:15:00* Test Item Value Reference Range Interpretation Comments PHOSPHOROUS (test code = PHOS) 2.5 mg/dL 2.5-4.9 COMMENTS: Daily while in [id number] 07:15:00* Test Item Value Reference Range Interpretation Comments MAGNESIUM (test code = MAG) 1.90 mg/dL 1.8-2.4 COMMENTS: Daily while in ICUCBC W/AUTO [id number] 07:14:00* Test Item Value Reference Range Interpretation [...] code = MDIFF) COMMENTS: Daily while in [id number] 05:32:00* Test Item Value Reference Range Interpretation Comments GLUBED (test code = GLUBED) 162 MG/DL 70-110 H Performed by certified radio operator ground at [facility] ARTERIAL BLOOD [id number] 05:30:00* Test Item Value Reference Range Interpretation [...] = PEEPA) 5 cmH2O Performed by certified radio operator ground at [facility] ABG TEMPERATURE (test code = TEMPA) 98.2 F ABG SITE (test code = SITEA) Art line PREDICTED AA GRADIENT (test code = AP) 64 PREDICTED PO2 (test code = OP) 183 a/A RATIO (test code = RATIO) 0.67 TCO2 ARTERIAL (test code = TCO2A) 23 A-A GRADIENT (test code = AAGRADE) 81 HGB [id number] 02:59:00* Test Item Value Reference Range Interpretation Comments HEMOGLOBIN (test code = HGB) 10.6 g/dL 11.0-15.0 L HEMATOCRIT (test code = HCT) 31.2 % 33.0-45.0 L [id number] 23:30:00* Test Item Value Reference Range Interpretation Comments GLUBED (test code = GLUBED) 108 MG/DL 70-110 N Performed by certified radio operator ground at [facility] HGB [id number] 23:16:00* Test Item Value Reference Range Interpretation Comments HEMOGLOBIN (test code = HGB) 10.5 g/dL 11.0-15.0 L HEMATOCRIT (test code = HCT) 31.5 % 33.0-45.0 L PLATELET [id number] 23:16:00* Test Item Value Reference Range Interpretation Comments PLATELET COUNT (test code = PLT) 104 x10 3/uL 150-400 L [id number] 23:04:00* Test Item Value Reference Range Interpretation Comments FIBRINOGEN (test code = FIB) 256 MG/DL 160-450 N Excess administration of anticoagulants and/or FibrinDegradation Products may affect Fibrinogen value. CBC W/AUTO [id number] 22:17:00* Test Item Value Reference Range Interpretation [...] REQUIRED (test code = MDIFF) YES WBC [id number] 22:17:00* Test Item Value Reference Range Interpretation [...] reported result: Decreased THOUSANDEdited by: CAMILA on 12/15/18:149879 2213: PLT EST previously reported as: Decreased THOUSAND PLATELET MORPHOLOGY (test code = PLTMORPH) LARGE PLATELETS SOME LARGE PLTS SEEN PLT AGGREGATES NOTED CBC W/AUTO [id number] 18:35:00* Test Item Value Reference Range Interpretation [...] REQUIRED (test code = MDIFF) YES WBC [id number] 18:35:00* Test Item Value Reference Range Interpretation [...] LARGE PLATELETS RARE GIANT PLATELETS COMPREHENSIVE METABOLIC [id number] 17:32:00* Test Item Value Reference Range Interpretation [...] ALKP) 66 IUnit/L 20-125 N COMPREHENSIVE METABOLIC [id number] 17:28:00* Test Item Value Reference Range Interpretation [...] TOTAL (test code = ALKP) IUnit/L 20-125 [id number] 17:18:00* Test Item Value Reference Range Interpretation Comments FIBRINOGEN (test code = FIB) 233 MG/DL 160-450 N Excess administration of anticoagulants and/or FibrinDegradation Products may affect Fibrinogen value. CBC W/AUTO [id number] 17:09:00* Test Item Value Reference Range Interpretation [...] REQUIRED (test code = MDIFF) YES WBC [id number] 17:09:00* Test Item Value Reference Range Interpretation Comments ANISOCYTOSIS (test code = ANISO) PLATELET ESTIMATE (test code = PLTEST) THOUSAND ADEQUATE CBC W/AUTO [id number] 17:09:00* Test Item Value Reference Range Interpretation [...] REQUIRED (test code = MDIFF) YES WBC [id number] 17:09:00* Test Item Value Reference Range Interpretation Comments ANISOCYTOSIS (test code = ANISO) PLATELET ESTIMATE (test code = PLTEST) THOUSAND ADEQUATE HGB [id number] 14:59:00* Test Item Value Reference Range Interpretation Comments HEMOGLOBIN (test code = HGB) 10.8 g/dL 11.0-15.0 L HEMATOCRIT (test code = HCT) 31.5 % 33.0-45.0 L CBC W/AUTO [id number] 11:56:00* Test Item Value Reference Range Interpretation [...] REQUIRED (test code = MDIFF) YES WBC [id number] 11:56:00* Test Item Value Reference Range Interpretation [...] = PLTMORPH) LARGE PLATELETS FEW CBC W/AUTO [id number] 11:43:00* Test Item Value Reference Range Interpretation [...] REQUIRED (test code = MDIFF) YES WBC [id number] 11:43:00* Test Item Value Reference Range Interpretation Comments ANISOCYTOSIS (test code = ANISO) PLATELET ESTIMATE (test code = PLTEST) THOUSAND ADEQUATE CBC W/AUTO [id number] 11:43:00* Test Item Value Reference Range Interpretation [...] REQUIRED (test code = MDIFF) YES WBC [id number] 11:43:00* Test Item Value Reference Range Interpretation Comments ANISOCYTOSIS (test code = ANISO) PLATELET ESTIMATE (test code = PLTEST) THOUSAND ADEQUATE CBC W/AUTO [id number] 08:48:00* Test Item Value Reference Range Interpretation [...] REQUIRED (test code = MDIFF) YES WBC [id number] 08:48:00* Test Item Value Reference Range Interpretation [...] = PLTEST) Decreased THOUSAND ADEQUATE CBC W/AUTO [id number] 08:40:00* Test Item Value Reference Range Interpretation [...] REQUIRED (test code = MDIFF) YES WBC [id number] 08:40:00* Test Item Value Reference Range Interpretation Comments ANISOCYTOSIS (test code = ANISO) PLATELET ESTIMATE (test code = PLTEST) THOUSAND ADEQUATE CBC W/AUTO [id number] 08:40:00* Test Item Value Reference Range Interpretation [...] REQUIRED (test code = MDIFF) YES WBC [id number] 08:40:00* Test Item Value Reference Range Interpretation Comments ANISOCYTOSIS (test code = ANISO) PLATELET ESTIMATE (test code = PLTEST) THOUSAND ADEQUATE CBC W/AUTO [id number] 08:08:00* Test Item Value Reference Range Interpretation [...] REQUIRED (test code = MDIFF) YES WBC [id number] 08:08:00* Test Item Value Reference Range Interpretation [...] code = PLTMORPH) LARGE PLATELETS CBC W/AUTO [id number] 08:07:00* Test Item Value Reference Range Interpretation [...] REQUIRED (test code = MDIFF) YES WBC [id number] 08:07:00* Test Item Value Reference Range Interpretation Comments ANISOCYTOSIS (test code = ANISO) PLATELET ESTIMATE (test code = PLTEST) THOUSAND ADEQUATE CBC W/AUTO [id number] 08:07:00* Test Item Value Reference Range Interpretation [...] REQUIRED (test code = MDIFF) YES WBC [id number] 08:07:00* Test Item Value Reference Range Interpretation Comments ANISOCYTOSIS (test code = ANISO) PLATELET ESTIMATE (test code = PLTEST) THOUSAND ADEQUATE - XR CHEST 1 [id number] 07:15:00 FAX: Jennifer WoodBronaughJordy auguste [phone] [place]: St: ADM FAX: Alexsandra Barron MD [phone] FAX: Jennifer RiveraDanisha stapletonallison [phone] Name: HEIDI STEINER [facility] : 1960 Age/S: 58/F [address] [place] [address] Unit #: [id number] Loc: G.M324 [place] [address] Phys: Alexsandra Barron MD Acct: [id number] Dis Date: Status: ADM IN ONE #: [phone] Exam Date: 12/15/2018512 FAX #: [phone] Reason: ETT EXAMS: CPT CODE: [id number] XR CHEST 1 V 49463 1 VIEW CXR. PORTABLE EXAM 4:11 AM [...] concerning NG tube. END OF IMPRESSION SL: [id number] at 0715 Reported and signed by: Olivier Dennis M.D. CC: Jordy Gambino DO; Alexsandra Barron MD; Joycelyn Person MD Technologist: Elvis Jang Trnscrd Date/Time/By: 12/15/2018 (714) : By: NeetaRTAtul Orig Print D/T: S: 12/15/2018 (50) PAGE 1 Signed Report BASIC METABOLIC [id number] 06:39:00* Test Item Value Reference Range Interpretation [...] code = CA) 7.7 mg/dL 8.0-10.5 L [id number] 06:39:00* Test Item Value Reference Range Interpretation Comments PHOSPHOROUS (test code = PHOS) 1.3 mg/dL 2.5-4.9 L [id number] 06:39:00* Test Item Value Reference Range Interpretation Comments MAGNESIUM (test code = MAG) 1.30 mg/dL 1.8-2.4 L CBC W/AUTO [id number] 06:16:00* Test Item Value Reference Range Interpretation [...] DIFF REQUIRED (test code = MDIFF) PROTHROMBIN [id number] 03:47:00* Test Item Value Reference Range Interpretation [...] Infarction (to prevent recurrent infarct). CBC W/AUTO [id number] 03:38:00* Test Item Value Reference Range Interpretation [...] DIFF REQUIRED (test code = MDIFF) HGB [id number] 02:34:00* Test Item Value Reference Range Interpretation Comments HEMOGLOBIN (test code = HGB) 12.4 g/dL 11.0-15.0 N HEMATOCRIT (test code = HCT) 36.3 % 33.0-45.0 N HGB [id number] 22:44:00* Test Item Value Reference Range Interpretation Comments HEMOGLOBIN (test code = HGB) 13.7 g/dL 11.0-15.0 HEMATOCRIT (test code = HCT) 41.3 % 33.0-45.0 POC ARTERIAL BLOOD [id number] 20:34:00* Test Item Value Reference Range Interpretation Comments POC ARTERIAL BLOOD GAS PH (test code = POCPHA) 7.416 7.35-7. 45 N POC ARTERIAL BLOOD GAS PCO2 (test code = ANFOUU3X) 34.4 mmHg 35. 0-45 L POC TCO2 ARTERIAL (test code = POCTCO2) 23.1 POC ARTERIAL BLOOD GAS PO2 (test code = YHAFK3Y) 172.3 mmHg 80-10 0.0 H POC HCO3 ARTERIAL (test code = XLCNPK3N) 22.1 MMOL/L 22.0-26.0 N POC BASE EXCESS (test code = POCBEA) -2.0 MMOL/L -4.0-4.0 N POC O2 SATURATION (test code = POCO2S) 99.6 % 90-100 N [id number] 20:34:00* Test Item Value Reference Range Interpretation Comments SODIUM (test code = NA/ABG) MEQ/L 134-147 [id number] 20:34:00* Test Item Value Reference Range Interpretation Comments POTASSIUM (test code = K/ABG) MEQ/L 3.4-5.0 [id number] 20:34:00* Test Item Value Reference Range Interpretation Comments CHLORIDE (test code = CL/ABG) MEQ/L 100-108 CREATININE [id number] 20:34:00* Test Item Value Reference Range Interpretation Comments CREATININE ABG (test code = CREAABG) mg/dL 0.6-1.0 [id number] 20:34:00* Test Item Value Reference Range Interpretation Comments HEMOGLOBIN (test code = HGB/ABG) G/DL 11.0-15.0 [id number] 20:34:00* Test Item Value Reference Range Interpretation Comments HEMATOCRIT (test code = HCT/ABG) % 33.0-45.0 POC IONIZED [id number] 20:34:00* Test Item Value Reference Range Interpretation Comments POC IONIZED CALCIUM (test code = POCCA) MMOL/L 1.12-1.32 POC [id number] 20:34:00* Test Item Value Reference Range Interpretation Comments POC GLUCOSE (test code = POCGLU) MG/DL 70-110 POC ARTERIAL BLOOD [id number] 20:34:00* Test Item Value Reference Range Interpretation Comments POC ARTERIAL BLOOD GAS PH (test code = POCPHA) 7.416 7.35-7. 45 N POC ARTERIAL BLOOD GAS PCO2 (test code = RNCBZJ0T) 34.4 mmHg 35. 0-45 L POC TCO2 ARTERIAL (test code = POCTCO2) 23.1 POC ARTERIAL BLOOD GAS PO2 (test code = NEKZT3Y) 172.3 mmHg 80-10 0.0 H POC HCO3 ARTERIAL (test code = PVADYZ7H) 22.1 MMOL/L 22.0-26.0 N POC BASE EXCESS (test code = POCBEA) -2.0 MMOL/L -4.0-4.0 N POC O2 SATURATION (test code = POCO2S) 99.6 % 90-100 N [id number] 20:34:00* Test Item Value Reference Range Interpretation Comments SODIUM (test code = NA/ABG) 141 MEQ/L 134-147 N [id number] 20:34:00* Test Item Value Reference Range Interpretation Comments POTASSIUM (test code = K/ABG) MEQ/L 3.4-5.0 [id number] 20:34:00* Test Item Value Reference Range Interpretation Comments CHLORIDE (test code = CL/ABG) MEQ/L 100-108 CREATININE [id number] 20:34:00* Test Item Value Reference Range Interpretation Comments CREATININE ABG (test code = CREAABG) mg/dL 0.6-1.0 [id number] 20:34:00* Test Item Value Reference Range Interpretation Comments HEMOGLOBIN (test code = HGB/ABG) G/DL 11.0-15.0 [id number] 20:34:00* Test Item Value Reference Range Interpretation Comments HEMATOCRIT (test code = HCT/ABG) % 33.0-45.0 POC IONIZED [id number] 20:34:00* Test Item Value Reference Range Interpretation Comments POC IONIZED CALCIUM (test code = POCCA) MMOL/L 1.12-1.32 POC [id number] 20:34:00* Test Item Value Reference Range Interpretation Comments POC GLUCOSE (test code = POCGLU) MG/DL 70-110 POC ARTERIAL BLOOD [id number] 20:34:00* Test Item Value Reference Range Interpretation Comments POC ARTERIAL BLOOD GAS PH (test code = POCPHA) 7.416 7.35-7. 45 N POC ARTERIAL BLOOD GAS PCO2 (test code = QMLLJH7C) 34.4 mmHg 35. 0-45 L POC TCO2 ARTERIAL (test code = POCTCO2) 23.1 POC ARTERIAL BLOOD GAS PO2 (test code = LPMDP0Q) 172.3 mmHg 80-10 0.0 H POC HCO3 ARTERIAL (test code = KTWXRO1B) 22.1 MMOL/L 22.0-26.0 N POC BASE EXCESS (test code = POCBEA) -2.0 MMOL/L -4.0-4.0 N POC O2 SATURATION (test code = POCO2S) 99.6 % 90-100 N [id number] 20:34:00* Test Item Value Reference Range Interpretation Comments SODIUM (test code = NA/ABG) 141 MEQ/L 134-147 N [id number] 20:34:00* Test Item Value Reference Range Interpretation Comments POTASSIUM (test code = K/ABG) 2.8 MEQ/L 3.4-5.0 LL [id number] 20:34:00* Test Item Value Reference Range Interpretation Comments CHLORIDE (test code = CL/ABG) MEQ/L 100-108 CREATININE [id number] 20:34:00* Test Item Value Reference Range Interpretation Comments CREATININE ABG (test code = CREAABG) mg/dL 0.6-1.0 [id number] 20:34:00* Test Item Value Reference Range Interpretation Comments HEMOGLOBIN (test code = HGB/ABG) G/DL 11.0-15.0 [id number] 20:34:00* Test Item Value Reference Range Interpretation Comments HEMATOCRIT (test code = HCT/ABG) % 33.0-45.0 POC IONIZED [id number] 20:34:00* Test Item Value Reference Range Interpretation Comments POC IONIZED CALCIUM (test code = POCCA) MMOL/L 1.12-1.32 POC [id number] 20:34:00* Test Item Value Reference Range Interpretation Comments POC GLUCOSE (test code = POCGLU) MG/DL 70-110 POC ARTERIAL BLOOD [id number] 20:34:00* Test Item Value Reference Range Interpretation Comments POC ARTERIAL BLOOD GAS PH (test code = POCPHA) 7.416 7.35-7. 45 N POC ARTERIAL BLOOD GAS PCO2 (test code = EVAPHN1Z) 34.4 mmHg 35. 0-45 L POC TCO2 ARTERIAL (test code = POCTCO2) 23.1 POC ARTERIAL BLOOD GAS PO2 (test code = IIUFD3J) 172.3 mmHg 80-10 0.0 H POC HCO3 ARTERIAL (test code = QNPHXO9G) 22.1 MMOL/L 22.0-26.0 N POC BASE EXCESS (test code = POCBEA) -2.0 MMOL/L -4.0-4.0 N POC O2 SATURATION (test code = POCO2S) 99.6 % 90-100 N [id number] 20:34:00* Test Item Value Reference Range Interpretation Comments SODIUM (test code = NA/ABG) 141 MEQ/L 134-147 N [id number] 20:34:00* Test Item Value Reference Range Interpretation Comments POTASSIUM (test code = K/ABG) 2.8 MEQ/L 3.4-5.0 LL [id number] 20:34:00* Test Item Value Reference Range Interpretation Comments CHLORIDE (test code = CL/ABG) MEQ/L 100-108 CREATININE [id number] 20:34:00* Test Item Value Reference Range Interpretation Comments CREATININE ABG (test code = CREAABG) mg/dL 0.6-1.0 [id number] 20:34:00* Test Item Value Reference Range Interpretation Comments HEMOGLOBIN (test code = HGB/ABG) G/DL 11.0-15.0 [id number] 20:34:00* Test Item Value Reference Range Interpretation Comments HEMATOCRIT (test code = HCT/ABG) % 33.0-45.0 POC IONIZED [id number] 20:34:00* Test Item Value Reference Range Interpretation Comments POC IONIZED CALCIUM (test code = POCCA) 0.97 MMOL/L 1.12-1.32 L POC [id number] 20:34:00* Test Item Value Reference Range Interpretation Comments POC GLUCOSE (test code = POCGLU) MG/DL 70-110 POC ARTERIAL BLOOD [id number] 20:34:00* Test Item Value Reference Range Interpretation Comments POC ARTERIAL BLOOD GAS PH (test code = POCPHA) 7.416 7.35-7. 45 N POC ARTERIAL BLOOD GAS PCO2 (test code = PJGFPI2A) 34.4 mmHg 35. 0-45 L POC TCO2 ARTERIAL (test code = POCTCO2) 23.1 POC ARTERIAL BLOOD GAS PO2 (test code = JYKVG8C) 172.3 mmHg 80-10 0.0 H POC HCO3 ARTERIAL (test code = OMORTY1M) 22.1 MMOL/L 22.0-26.0 N POC BASE EXCESS (test code = POCBEA) -2.0 MMOL/L -4.0-4.0 N POC O2 SATURATION (test code = POCO2S) 99.6 % 90-100 N [id number] 20:34:00* Test Item Value Reference Range Interpretation Comments SODIUM (test code = NA/ABG) 141 MEQ/L 134-147 N [id number] 20:34:00* Test Item Value Reference Range Interpretation Comments POTASSIUM (test code = K/ABG) 2.8 MEQ/L 3.4-5.0 LL [id number] 20:34:00* Test Item Value Reference Range Interpretation Comments CHLORIDE (test code = CL/ABG) MEQ/L 100-108 CREATININE [id number] 20:34:00* Test Item Value Reference Range Interpretation Comments CREATININE ABG (test code = CREAABG) mg/dL 0.6-1.0 [id number] 20:34:00* Test Item Value Reference Range Interpretation Comments HEMOGLOBIN (test code = HGB/ABG) G/DL 11.0-15.0 [id number] 20:34:00* Test Item Value Reference Range Interpretation Comments HEMATOCRIT (test code = HCT/ABG) % 33.0-45.0 POC IONIZED [id number] 20:34:00* Test Item Value Reference Range Interpretation Comments POC IONIZED CALCIUM (test code = POCCA) 0.97 MMOL/L 1.12-1.32 L POC [id number] 20:34:00* Test Item Value Reference Range Interpretation Comments POC GLUCOSE (test code = POCGLU) 94 MG/DL 70-110 N POC ARTERIAL BLOOD [id number] 20:34:00* Test Item Value Reference Range Interpretation Comments POC ARTERIAL BLOOD GAS PH (test code = POCPHA) 7.416 7.35-7. 45 N POC ARTERIAL BLOOD GAS PCO2 (test code = IWWVFP5Q) 34.4 mmHg 35. 0-45 L POC TCO2 ARTERIAL (test code = POCTCO2) 23.1 POC ARTERIAL BLOOD GAS PO2 (test code = ZEDDK7V) 172.3 mmHg 80-10 0.0 H POC HCO3 ARTERIAL (test code = GWCCEM3F) 22.1 MMOL/L 22.0-26.0 N POC BASE EXCESS (test code = POCBEA) -2.0 MMOL/L -4.0-4.0 N POC O2 SATURATION (test code = POCO2S) 99.6 % 90-100 N [id number] 20:34:00* Test Item Value Reference Range Interpretation Comments SODIUM (test code = NA/ABG) 141 MEQ/L 134-147 N [id number] 20:34:00* Test Item Value Reference Range Interpretation Comments POTASSIUM (test code = K/ABG) 2.8 MEQ/L 3.4-5.0 LL [id number] 20:34:00* Test Item Value Reference Range Interpretation Comments CHLORIDE (test code = CL/ABG) MEQ/L 100-108 CREATININE [id number] 20:34:00* Test Item Value Reference Range Interpretation Comments CREATININE ABG (test code = CREAABG) mg/dL 0.6-1.0 [id number] 20:34:00* Test Item Value Reference Range Interpretation Comments HEMOGLOBIN (test code = HGB/ABG) G/DL 11.0-15.0 [id number] 20:34:00* Test Item Value Reference Range Interpretation Comments HEMATOCRIT (test code = HCT/ABG) 31 % 33.0-45.0 L POC IONIZED [id number] 20:34:00* Test Item Value Reference Range Interpretation Comments POC IONIZED CALCIUM (test code = POCCA) 0.97 MMOL/L 1.12-1.32 L POC [id number] 20:34:00* Test Item Value Reference Range Interpretation Comments POC GLUCOSE (test code = POCGLU) 94 MG/DL 70-110 N POC ARTERIAL BLOOD [id number] 20:34:00* Test Item Value Reference Range Interpretation Comments POC ARTERIAL BLOOD GAS PH (test code = POCPHA) 7.416 7.35-7. 45 N POC ARTERIAL BLOOD GAS PCO2 (test code = KDRSAC3B) 34.4 mmHg 35. 0-45 L POC TCO2 ARTERIAL (test code = POCTCO2) 23.1 POC ARTERIAL BLOOD GAS PO2 (test code = QXWKD7Q) 172.3 mmHg 80-10 0.0 H POC HCO3 ARTERIAL (test code = VZUYWT0O) 22.1 MMOL/L 22.0-26.0 N POC BASE EXCESS (test code = POCBEA) -2.0 MMOL/L -4.0-4.0 N POC O2 SATURATION (test code = POCO2S) 99.6 % 90-100 N [id number] 20:34:00* Test Item Value Reference Range Interpretation Comments SODIUM (test code = NA/ABG) 141 MEQ/L 134-147 N [id number] 20:34:00* Test Item Value Reference Range Interpretation Comments POTASSIUM (test code = K/ABG) 2.8 MEQ/L 3.4-5.0 LL [id number] 20:34:00* Test Item Value Reference Range Interpretation Comments CHLORIDE (test code = CL/ABG) MEQ/L 100-108 CREATININE [id number] 20:34:00* Test Item Value Reference Range Interpretation Comments CREATININE ABG (test code = CREAABG) mg/dL 0.6-1.0 [id number] 20:34:00* Test Item Value Reference Range Interpretation Comments HEMOGLOBIN (test code = HGB/ABG) 10.6 G/DL 11.0-15.0 L [id number] 20:34:00* Test Item Value Reference Range Interpretation Comments HEMATOCRIT (test code = HCT/ABG) 31 % 33.0-45.0 L POC IONIZED [id number] 20:34:00* Test Item Value Reference Range Interpretation Comments POC IONIZED CALCIUM (test code = POCCA) 0.97 MMOL/L 1.12-1.32 L POC [id number] 20:34:00* Test Item Value Reference Range Interpretation Comments POC GLUCOSE (test code = POCGLU) 94 MG/DL 70-110 N POC ARTERIAL BLOOD [id number] 20:34:00* Test Item Value Reference Range Interpretation Comments POC ARTERIAL BLOOD GAS PH (test code = POCPHA) 7.416 7.35-7. 45 N POC ARTERIAL BLOOD GAS PCO2 (test code = TKCXJA0A) 34.4 mmHg 35. 0-45 L POC TCO2 ARTERIAL (test code = POCTCO2) 23.1 POC ARTERIAL BLOOD GAS PO2 (test code = IEMIN2C) 172.3 mmHg 80-10 0.0 H POC HCO3 ARTERIAL (test code = HNIZQP7P) 22.1 MMOL/L 22.0-26.0 N POC BASE EXCESS (test code = POCBEA) -2.0 MMOL/L -4.0-4.0 N POC O2 SATURATION (test code = POCO2S) 99.6 % 90-100 N [id number] 20:34:00* Test Item Value Reference Range Interpretation Comments SODIUM (test code = NA/ABG) 141 MEQ/L 134-147 N [id number] 20:34:00* Test Item Value Reference Range Interpretation Comments POTASSIUM (test code = K/ABG) 2.8 MEQ/L 3.4-5.0 LL [id number] 20:34:00* Test Item Value Reference Range Interpretation Comments CHLORIDE (test code = CL/ABG) 107 MEQ/L 100-108 N CREATININE [id number] 20:34:00* Test Item Value Reference Range Interpretation Comments CREATININE ABG (test code = CREAABG) mg/dL 0.6-1.0 [id number] 20:34:00* Test Item Value Reference Range Interpretation Comments HEMOGLOBIN (test code = HGB/ABG) 10.6 G/DL 11.0-15.0 L [id number] 20:34:00* Test Item Value Reference Range Interpretation Comments HEMATOCRIT (test code = HCT/ABG) 31 % 33.0-45.0 L POC IONIZED [id number] 20:34:00* Test Item Value Reference Range Interpretation Comments POC IONIZED CALCIUM (test code = POCCA) 0.97 MMOL/L 1.12-1.32 L POC [id number] 20:34:00* Test Item Value Reference Range Interpretation Comments POC GLUCOSE (test code = POCGLU) 94 MG/DL 70-110 N POC ARTERIAL BLOOD [id number] 20:34:00* Test Item Value Reference Range Interpretation Comments POC ARTERIAL BLOOD GAS PH (test code = POCPHA) 7.416 7.35-7. 45 N POC ARTERIAL BLOOD GAS PCO2 (test code = ABGPNY7U) 34.4 mmHg 35. 0-45 L POC TCO2 ARTERIAL (test code = POCTCO2) 23.1 POC ARTERIAL BLOOD GAS PO2 (test code = TSZEX5P) 172.3 mmHg 80-10 0.0 H POC HCO3 ARTERIAL (test code = XQCUSM2F) 22.1 MMOL/L 22.0-26.0 N POC BASE EXCESS (test code = POCBEA) -2.0 MMOL/L -4.0-4.0 N POC O2 SATURATION (test code = POCO2S) 99.6 % 90-100 N [id number] 20:34:00* Test Item Value Reference Range Interpretation Comments SODIUM (test code = NA/ABG) 141 MEQ/L 134-147 N [id number] 20:34:00* Test Item Value Reference Range Interpretation Comments POTASSIUM (test code = K/ABG) 2.8 MEQ/L 3.4-5.0 LL [id number] 20:34:00* Test Item Value Reference Range Interpretation Comments CHLORIDE (test code = CL/ABG) 107 MEQ/L 100-108 N CREATININE [id number] 20:34:00* Test Item Value Reference Range Interpretation Comments CREATININE ABG (test code = CREAABG) 0.8 mg/dL 0.6-1.0 N [id number] 20:34:00* Test Item Value Reference Range Interpretation Comments HEMOGLOBIN (test code = HGB/ABG) 10.6 G/DL 11.0-15.0 L [id number] 20:34:00* Test Item Value Reference Range Interpretation Comments HEMATOCRIT (test code = HCT/ABG) 31 % 33.0-45.0 L POC IONIZED [id number] 20:34:00* Test Item Value Reference Range Interpretation Comments POC IONIZED CALCIUM (test code = POCCA) 0.97 MMOL/L 1.12-1.32 L POC [id number] 20:34:00* Test Item Value Reference Range Interpretation Comments POC GLUCOSE (test code = POCGLU) 94 MG/DL 70-110 N POC ARTERIAL BLOOD [id number] 20:00:00* Test Item Value Reference Range Interpretation Comments POC ARTERIAL BLOOD GAS PH (test code = POCPHA) 7.447 7.35-7. 45 N POC ARTERIAL BLOOD GAS PCO2 (test code = BIFFTZ5V) 35.1 mmHg 35. 0-45 N POC TCO2 ARTERIAL (test code = POCTCO2) 25.3 POC ARTERIAL BLOOD GAS PO2 (test code = WADHV0A) 204.2 mmHg 80-10 0.0 HH POC HCO3 ARTERIAL (test code = QXAREF1D) 24.2 MMOL/L 22.0-26.0 N POC BASE EXCESS (test code = POCBEA) 0.3 MMOL/L -4.0-4.0 N POC O2 SATURATION (test code = POCO2S) 99.8 % 90-100 N [id number] 20:00:00* Test Item Value Reference Range Interpretation Comments SODIUM (test code = NA/ABG) MEQ/L 134-147 [id number] 20:00:00* Test Item Value Reference Range Interpretation Comments POTASSIUM (test code = K/ABG) MEQ/L 3.4-5.0 [id number] 20:00:00* Test Item Value Reference Range Interpretation Comments CHLORIDE (test code = CL/ABG) MEQ/L 100-108 CREATININE [id number] 20:00:00* Test Item Value Reference Range Interpretation Comments CREATININE ABG (test code = CREAABG) mg/dL 0.6-1.0 [id number] 20:00:00* Test Item Value Reference Range Interpretation Comments HEMOGLOBIN (test code = HGB/ABG) G/DL 11.0-15.0 [id number] 20:00:00* Test Item Value Reference Range Interpretation Comments HEMATOCRIT (test code = HCT/ABG) % 33.0-45.0 POC IONIZED [id number] 20:00:00* Test Item Value Reference Range Interpretation Comments POC IONIZED CALCIUM (test code = POCCA) MMOL/L 1.12-1.32 POC [id number] 20:00:00* Test Item Value Reference Range Interpretation Comments POC GLUCOSE (test code = POCGLU) MG/DL 70-110 POC ARTERIAL BLOOD [id number] 20:00:00* Test Item Value Reference Range Interpretation Comments POC ARTERIAL BLOOD GAS PH (test code = POCPHA) 7.447 7.35-7. 45 N POC ARTERIAL BLOOD GAS PCO2 (test code = ZIDYHY2I) 35.1 mmHg 35. 0-45 N POC TCO2 ARTERIAL (test code = POCTCO2) 25.3 POC ARTERIAL BLOOD GAS PO2 (test code = RMVZM7O) 204.2 mmHg 80-10 0.0 HH POC HCO3 ARTERIAL (test code = JAAQNF0A) 24.2 MMOL/L 22.0-26.0 N POC BASE EXCESS (test code = POCBEA) 0.3 MMOL/L -4.0-4.0 N POC O2 SATURATION (test code = POCO2S) 99.8 % 90-100 N [id number] 20:00:00* Test Item Value Reference Range Interpretation Comments SODIUM (test code = NA/ABG) 142 MEQ/L 134-147 N [id number] 20:00:00* Test Item Value Reference Range Interpretation Comments POTASSIUM (test code = K/ABG) MEQ/L 3.4-5.0 [id number] 20:00:00* Test Item Value Reference Range Interpretation Comments CHLORIDE (test code = CL/ABG) MEQ/L 100-108 CREATININE [id number] 20:00:00* Test Item Value Reference Range Interpretation Comments CREATININE ABG (test code = CREAABG) mg/dL 0.6-1.0 [id number] 20:00:00* Test Item Value Reference Range Interpretation Comments HEMOGLOBIN (test code = HGB/ABG) G/DL 11.0-15.0 [id number] 20:00:00* Test Item Value Reference Range Interpretation Comments HEMATOCRIT (test code = HCT/ABG) % 33.0-45.0 POC IONIZED [id number] 20:00:00* Test Item Value Reference Range Interpretation Comments POC IONIZED CALCIUM (test code = POCCA) MMOL/L 1.12-1.32 POC [id number] 20:00:00* Test Item Value Reference Range Interpretation Comments POC GLUCOSE (test code = POCGLU) MG/DL 70-110 POC ARTERIAL BLOOD [id number] 20:00:00* Test Item Value Reference Range Interpretation Comments POC ARTERIAL BLOOD GAS PH (test code = POCPHA) 7.447 7.35-7. 45 N POC ARTERIAL BLOOD GAS PCO2 (test code = EDKKMZ4P) 35.1 mmHg 35. 0-45 N POC TCO2 ARTERIAL (test code = POCTCO2) 25.3 POC ARTERIAL BLOOD GAS PO2 (test code = KUHTG3T) 204.2 mmHg 80-10 0.0 HH POC HCO3 ARTERIAL (test code = DJKPGF1P) 24.2 MMOL/L 22.0-26.0 N POC BASE EXCESS (test code = POCBEA) 0.3 MMOL/L -4.0-4.0 N POC O2 SATURATION (test code = POCO2S) 99.8 % 90-100 N [id number] 20:00:00* Test Item Value Reference Range Interpretation Comments SODIUM (test code = NA/ABG) 142 MEQ/L 134-147 N [id number] 20:00:00* Test Item Value Reference Range Interpretation Comments POTASSIUM (test code = K/ABG) 3.1 MEQ/L 3.4-5.0 L [id number] 20:00:00* Test Item Value Reference Range Interpretation Comments CHLORIDE (test code = CL/ABG) MEQ/L 100-108 CREATININE [id number] 20:00:00* Test Item Value Reference Range Interpretation Comments CREATININE ABG (test code = CREAABG) mg/dL 0.6-1.0 [id number] 20:00:00* Test Item Value Reference Range Interpretation Comments HEMOGLOBIN (test code = HGB/ABG) G/DL 11.0-15.0 [id number] 20:00:00* Test Item Value Reference Range Interpretation Comments HEMATOCRIT (test code = HCT/ABG) % 33.0-45.0 POC IONIZED [id number] 20:00:00* Test Item Value Reference Range Interpretation Comments POC IONIZED CALCIUM (test code = POCCA) MMOL/L 1.12-1.32 POC [id number] 20:00:00* Test Item Value Reference Range Interpretation Comments POC GLUCOSE (test code = POCGLU) MG/DL 70-110 POC ARTERIAL BLOOD [id number] 20:00:00* Test Item Value Reference Range Interpretation Comments POC ARTERIAL BLOOD GAS PH (test code = POCPHA) 7.447 7.35-7. 45 N POC ARTERIAL BLOOD GAS PCO2 (test code = HHFMTV6C) 35.1 mmHg 35. 0-45 N POC TCO2 ARTERIAL (test code = POCTCO2) 25.3 POC ARTERIAL BLOOD GAS PO2 (test code = BHYPQ6Q) 204.2 mmHg 80-10 0.0 HH POC HCO3 ARTERIAL (test code = PIVWDH3N) 24.2 MMOL/L 22.0-26.0 N POC BASE EXCESS (test code = POCBEA) 0.3 MMOL/L -4.0-4.0 N POC O2 SATURATION (test code = POCO2S) 99.8 % 90-100 N [id number] 20:00:00* Test Item Value Reference Range Interpretation Comments SODIUM (test code = NA/ABG) 142 MEQ/L 134-147 N [id number] 20:00:00* Test Item Value Reference Range Interpretation Comments POTASSIUM (test code = K/ABG) 3.1 MEQ/L 3.4-5.0 L [id number] 20:00:00* Test Item Value Reference Range Interpretation Comments CHLORIDE (test code = CL/ABG) MEQ/L 100-108 CREATININE [id number] 20:00:00* Test Item Value Reference Range Interpretation Comments CREATININE ABG (test code = CREAABG) mg/dL 0.6-1.0 [id number] 20:00:00* Test Item Value Reference Range Interpretation Comments HEMOGLOBIN (test code = HGB/ABG) G/DL 11.0-15.0 [id number] 20:00:00* Test Item Value Reference Range Interpretation Comments HEMATOCRIT (test code = HCT/ABG) % 33.0-45.0 POC IONIZED [id number] 20:00:00* Test Item Value Reference Range Interpretation Comments POC IONIZED CALCIUM (test code = POCCA) 1.05 MMOL/L 1.12-1.32 L POC [id number] 20:00:00* Test Item Value Reference Range Interpretation Comments POC GLUCOSE (test code = POCGLU) MG/DL 70-110 POC ARTERIAL BLOOD [id number] 20:00:00* Test Item Value Reference Range Interpretation Comments POC ARTERIAL BLOOD GAS PH (test code = POCPHA) 7.447 7.35-7. 45 N POC ARTERIAL BLOOD GAS PCO2 (test code = IYLBCS7L) 35.1 mmHg 35. 0-45 N POC TCO2 ARTERIAL (test code = POCTCO2) 25.3 POC ARTERIAL BLOOD GAS PO2 (test code = TQKLN9N) 204.2 mmHg 80-10 0.0 HH POC HCO3 ARTERIAL (test code = TKBAVU2B) 24.2 MMOL/L 22.0-26.0 N POC BASE EXCESS (test code = POCBEA) 0.3 MMOL/L -4.0-4.0 N POC O2 SATURATION (test code = POCO2S) 99.8 % 90-100 N [id number] 20:00:00* Test Item Value Reference Range Interpretation Comments SODIUM (test code = NA/ABG) 142 MEQ/L 134-147 N [id number] 20:00:00* Test Item Value Reference Range Interpretation Comments POTASSIUM (test code = K/ABG) 3.1 MEQ/L 3.4-5.0 L [id number] 20:00:00* Test Item Value Reference Range Interpretation Comments CHLORIDE (test code = CL/ABG) MEQ/L 100-108 CREATININE [id number] 20:00:00* Test Item Value Reference Range Interpretation Comments CREATININE ABG (test code = CREAABG) mg/dL 0.6-1.0 [id number] 20:00:00* Test Item Value Reference Range Interpretation Comments HEMOGLOBIN (test code = HGB/ABG) G/DL 11.0-15.0 [id number] 20:00:00* Test Item Value Reference Range Interpretation Comments HEMATOCRIT (test code = HCT/ABG) % 33.0-45.0 POC IONIZED [id number] 20:00:00* Test Item Value Reference Range Interpretation Comments POC IONIZED CALCIUM (test code = POCCA) 1.05 MMOL/L 1.12-1.32 L POC [id number] 20:00:00* Test Item Value Reference Range Interpretation Comments POC GLUCOSE (test code = POCGLU) 77 MG/DL 70-110 N POC ARTERIAL BLOOD [id number] 20:00:00* Test Item Value Reference Range Interpretation Comments POC ARTERIAL BLOOD GAS PH (test code = POCPHA) 7.447 7.35-7. 45 N POC ARTERIAL BLOOD GAS PCO2 (test code = GDVATV9L) 35.1 mmHg 35. 0-45 N POC TCO2 ARTERIAL (test code = POCTCO2) 25.3 POC ARTERIAL BLOOD GAS PO2 (test code = AAUEQ6P) 204.2 mmHg 80-10 0.0 HH POC HCO3 ARTERIAL (test code = XKIMXK9D) 24.2 MMOL/L 22.0-26.0 N POC BASE EXCESS (test code = POCBEA) 0.3 MMOL/L -4.0-4.0 N POC O2 SATURATION (test code = POCO2S) 99.8 % 90-100 N [id number] 20:00:00* Test Item Value Reference Range Interpretation Comments SODIUM (test code = NA/ABG) 142 MEQ/L 134-147 N [id number] 20:00:00* Test Item Value Reference Range Interpretation Comments POTASSIUM (test code = K/ABG) 3.1 MEQ/L 3.4-5.0 L [id number] 20:00:00* Test Item Value Reference Range Interpretation Comments CHLORIDE (test code = CL/ABG) MEQ/L 100-108 CREATININE [id number] 20:00:00* Test Item Value Reference Range Interpretation Comments CREATININE ABG (test code = CREAABG) mg/dL 0.6-1.0 [id number] 20:00:00* Test Item Value Reference Range Interpretation Comments HEMOGLOBIN (test code = HGB/ABG) G/DL 11.0-15.0 [id number] 20:00:00* Test Item Value Reference Range Interpretation Comments HEMATOCRIT (test code = HCT/ABG) 25 % 33.0-45.0 L POC IONIZED [id number] 20:00:00* Test Item Value Reference Range Interpretation Comments POC IONIZED CALCIUM (test code = POCCA) 1.05 MMOL/L 1.12-1.32 L POC [id number] 20:00:00* Test Item Value Reference Range Interpretation Comments POC GLUCOSE (test code = POCGLU) 77 MG/DL 70-110 N POC ARTERIAL BLOOD [id number] 20:00:00* Test Item Value Reference Range Interpretation Comments POC ARTERIAL BLOOD GAS PH (test code = POCPHA) 7.447 7.35-7. 45 N POC ARTERIAL BLOOD GAS PCO2 (test code = GCBYCU1N) 35.1 mmHg 35. 0-45 N POC TCO2 ARTERIAL (test code = POCTCO2) 25.3 POC ARTERIAL BLOOD GAS PO2 (test code = GKMLY3W) 204.2 mmHg 80-10 0.0 HH POC HCO3 ARTERIAL (test code = KVDXQS3N) 24.2 MMOL/L 22.0-26.0 N POC BASE EXCESS (test code = POCBEA) 0.3 MMOL/L -4.0-4.0 N POC O2 SATURATION (test code = POCO2S) 99.8 % 90-100 N [id number] 20:00:00* Test Item Value Reference Range Interpretation Comments SODIUM (test code = NA/ABG) 142 MEQ/L 134-147 N [id number] 20:00:00* Test Item Value Reference Range Interpretation Comments POTASSIUM (test code = K/ABG) 3.1 MEQ/L 3.4-5.0 L [id number] 20:00:00* Test Item Value Reference Range Interpretation Comments CHLORIDE (test code = CL/ABG) MEQ/L 100-108 CREATININE [id number] 20:00:00* Test Item Value Reference Range Interpretation Comments CREATININE ABG (test code = CREAABG) mg/dL 0.6-1.0 [id number] 20:00:00* Test Item Value Reference Range Interpretation Comments HEMOGLOBIN (test code = HGB/ABG) 8.5 G/DL 11.0-15.0 L [id number] 20:00:00* Test Item Value Reference Range Interpretation Comments HEMATOCRIT (test code = HCT/ABG) 25 % 33.0-45.0 L POC IONIZED [id number] 20:00:00* Test Item Value Reference Range Interpretation Comments POC IONIZED CALCIUM (test code = POCCA) 1.05 MMOL/L 1.12-1.32 L POC [id number] 20:00:00* Test Item Value Reference Range Interpretation Comments POC GLUCOSE (test code = POCGLU) 77 MG/DL 70-110 N POC ARTERIAL BLOOD [id number] 20:00:00* Test Item Value Reference Range Interpretation Comments POC ARTERIAL BLOOD GAS PH (test code = POCPHA) 7.447 7.35-7. 45 N POC ARTERIAL BLOOD GAS PCO2 (test code = XOGLKR7Q) 35.1 mmHg 35. 0-45 N POC TCO2 ARTERIAL (test code = POCTCO2) 25.3 POC ARTERIAL BLOOD GAS PO2 (test code = NHJIB2G) 204.2 mmHg 80-10 0.0 HH POC HCO3 ARTERIAL (test code = SEBBOZ9N) 24.2 MMOL/L 22.0-26.0 N POC BASE EXCESS (test code = POCBEA) 0.3 MMOL/L -4.0-4.0 N POC O2 SATURATION (test code = POCO2S) 99.8 % 90-100 N [id number] 20:00:00* Test Item Value Reference Range Interpretation Comments SODIUM (test code = NA/ABG) 142 MEQ/L 134-147 N [id number] 20:00:00* Test Item Value Reference Range Interpretation Comments POTASSIUM (test code = K/ABG) 3.1 MEQ/L 3.4-5.0 L [id number] 20:00:00* Test Item Value Reference Range Interpretation Comments CHLORIDE (test code = CL/ABG) 107 MEQ/L 100-108 N CREATININE [id number] 20:00:00* Test Item Value Reference Range Interpretation Comments CREATININE ABG (test code = CREAABG) mg/dL 0.6-1.0 [id number] 20:00:00* Test Item Value Reference Range Interpretation Comments HEMOGLOBIN (test code = HGB/ABG) 8.5 G/DL 11.0-15.0 L [id number] 20:00:00* Test Item Value Reference Range Interpretation Comments HEMATOCRIT (test code = HCT/ABG) 25 % 33.0-45.0 L POC IONIZED [id number] 20:00:00* Test Item Value Reference Range Interpretation Comments POC IONIZED CALCIUM (test code = POCCA) 1.05 MMOL/L 1.12-1.32 L POC [id number] 20:00:00* Test Item Value Reference Range Interpretation Comments POC GLUCOSE (test code = POCGLU) 77 MG/DL 70-110 N POC ARTERIAL BLOOD [id number] 20:00:00* Test Item Value Reference Range Interpretation Comments POC ARTERIAL BLOOD GAS PH (test code = POCPHA) 7.447 7.35-7. 45 N POC ARTERIAL BLOOD GAS PCO2 (test code = XNBGTY6H) 35.1 mmHg 35. 0-45 N POC TCO2 ARTERIAL (test code = POCTCO2) 25.3 POC ARTERIAL BLOOD GAS PO2 (test code = PDHPV8F) 204.2 mmHg 80-10 0.0 HH POC HCO3 ARTERIAL (test code = XZPGMP0G) 24.2 MMOL/L 22.0-26.0 N POC BASE EXCESS (test code = POCBEA) 0.3 MMOL/L -4.0-4.0 N POC O2 SATURATION (test code = POCO2S) 99.8 % 90-100 N [id number] 20:00:00* Test Item Value Reference Range Interpretation Comments SODIUM (test code = NA/ABG) 142 MEQ/L 134-147 N [id number] 20:00:00* Test Item Value Reference Range Interpretation Comments POTASSIUM (test code = K/ABG) 3.1 MEQ/L 3.4-5.0 L [id number] 20:00:00* Test Item Value Reference Range Interpretation Comments CHLORIDE (test code = CL/ABG) 107 MEQ/L 100-108 N CREATININE [id number] 20:00:00* Test Item Value Reference Range Interpretation Comments CREATININE ABG (test code = CREAABG) 0.8 mg/dL 0.6-1.0 N [id number] 20:00:00* Test Item Value Reference Range Interpretation Comments HEMOGLOBIN (test code = HGB/ABG) 8.5 G/DL 11.0-15.0 L [id number] 20:00:00* Test Item Value Reference Range Interpretation Comments HEMATOCRIT (test code = HCT/ABG) 25 % 33.0-45.0 L POC IONIZED [id number] 20:00:00* Test Item Value Reference Range Interpretation Comments POC IONIZED CALCIUM (test code = POCCA) 1.05 MMOL/L 1.12-1.32 L POC [id number] 20:00:00* Test Item Value Reference Range Interpretation Comments POC GLUCOSE (test code = POCGLU) 77 MG/DL 70-110 N HGB [id number] 16:20:00* Test Item Value Reference Range Interpretation Comments HEMOGLOBIN (test code = HGB) 7.4 g/dL 11.0-15.0 L HEMATOCRIT (test code = HCT) 21.4 % 33.0-45.0 L CBC W/AUTO [id number] 14:23:00* Test Item Value Reference Range Interpretation [...] reported result: 8 x10\\S\\3/uLEdited by: CAMILA on 12/14/18:616112/11/03 1422: PLT previously reported as: 8 D*L x10\\S\\3/uL IMMATURE PLATELET FRACTION (test code = IPF) 16.3 % 0.9-11.2 H MEAN PLATELET VOLUME (test code = MPV) 13.1 fL 7.0-9.0 H MANUAL DIFF REQUIRED (test code = MDIFF) YES WBC [id number] 14:23:00* Test Item Value Reference Range Interpretation [...] code = PLTMORPH) GIANT PLATELETS ARTERIAL BLOOD [id number] 12:23:00* Test Item Value Reference Range Interpretation [...] = PEEPA) 5 cmH2O Performed by certified radio operator ground at [facility] ABG TEMPERATURE (test code = TEMPA) 37.0 F ABG SITE (test code = SITEA) Art line PREDICTED AA GRADIENT (test code = AP) 63 PREDICTED PO2 (test code = OP) 179 a/A RATIO (test code = RATIO) 0.77 TCO2 ARTERIAL (test code = TCO2A) 25 A-A GRADIENT (test code = AAGRADE) 56 CBC W/AUTO [id number] 12:13:00* Test Item Value Reference Range Interpretation [...] REQUIRED (test code = MDIFF) YES PATHOLOGISTS [id number] 12:13:00* Test Item Value Reference Range Interpretation Comments PATHOLOGISTS FINDINGS (test code = PATH FIND) WBC [id number] 12:13:00* Test Item Value Reference Range Interpretation [...] PLTMORPH) GIANT PLATELETS - XR CHEST 1 [id number] 11:58:00 FAX: Jennifer WoodImmanuelJordy auguste [phone] [place]: St: ADM FAX: Alexsandra Barron MD [phone] FAX: Jennifer Dwayne Person [phone] Name: HEIDI STEINER [facility] : 1960 Age/S: 58/F [address] [place] [address] Unit #: [id number] Loc: [address] [address] Phys: Alexsandra Barron MD Acct: [id number] Dis Date: Status: ADM IN ONE #: [phone] Exam Date: 12/14/2018 1125 FAX #: [phone] Reason: ETT EXAMS: CPT CODE: [id number] XR CHEST 1 V 50065 Patient: HEIDI STEINER. : 1960; Age: 58 years; Gender: Female. MR: [id number]. Ordering physician: Alexsandra Braron MD. PORTABLE C HEST AP: HISTORY: ET [...] partially visualized upper abdomen is unremarkable. SL: [id number] at 1158 Reported and signed by: Jackson Castaneda M.D. CC: Jordy Gambino DO; Alexsandra Barron MD; Joycelyn schneider MD Technologist: RT Suman(R) Trnscrd D ate/Time/By: 12/14/2018 (6052) : By: [email or web address] Orig Print D/T: S: 10/2018 (7022) PAGE 1 Signed Repor t PROTHROMBIN [id number] 11:33:00* Test Item Value Reference Range Interpretation [...] Infarction (to prevent recurrent infarct). THROMBOPLASTIN TIME [id number] 11:33:00* Test Item Value Reference Range Interpretation Comments THROMBOPLASTIN TIME PARTIAL (test code = PTT) 40.9 Seconds 25.0-39. 5 H Therapeutic Range: 61.8-83.8 Sec Effective 11/13/2013 [id number] 11:33:00* Test Item Value Reference Range Interpretation Comments FIBRINOGEN (test code = FIB) 274 MG/DL 160-450 Excess administration of anticoagulants and/or FibrinDegradation Products may affect Fibrinogen value. - US ABDOMEN [id number] 11:32:00 Name: HEIDI STEINER [facility] : 1960 Age/S: 58 / F [address] [place] [address] Unit #: [id number] Loc: [place] [address] Phys: Salud Pavon MD Acct: [id number] Dis Date: Status: ADM IN PHONE #: [phone] Exam Date: 12/14/20188 FAX #: [phone] Reason: FAST EXAM, CONCERN FOR INTRA-ABDOMINAL BLEED EXAMS: CPT CODE: [id number] US ABDOMEN LTD 94941 EXAM: US ABDOMEN COMPLETE DATE: 12/14/2018 10:51 [...] seen which may represent hemorrhagic products. SL: [id number] at 1132 Reported and signed by: Madelyn Christine D.O. CC: Salud Pavon MD; Jordy Gambino DO; Joycelyn Person MD Technologist: Evie Parra Trnscb Date/Time: 12/14/2018 (1132) [email or web address] Orig Print D/T: S: 12/14/2018 (3312) Probe: PAGE 1 Signed Report SURGICAL [id number] 11:23:00 RUN DATE: 12/14/18 [facility] *LIVE* PAGE 1 RUN TIME: 1122 Specimen Inqui ry RUN USER: INTERFACE PATIENT: HEIDI STEINER ACCT #: [id number] LOC: [facility] U #: [id number] AGE/SX: 58/F ROOM: [facility] RE11/29/18REG DR: Long Person : 56 BED: 1 DIS: STATUS: ADM IN TLOC: SPEC #: [id number] RECD: 12/12/18 STATUS: SIVAN LISY #: [id number] THOMPSON: 12/12/[address]: Long Person MD ENTERED: 12/13/18 SP TYPE: SURG SPEC OTHR DR: Shakila Mayorga i, MD, Jeffrey B MD Jogi, Vikas MD Kirkwood, John D DO Koons ,Terrence Alejandre,Kleber Bianchi MD, MD, Terri B MDORDERED: GM LEVEL 4 CODES: [id number] - SOFT TISSUES, [place] [address] [place] [address] Jordan Esparza MD [address]22 [facility] [address] [place] [address] Naif Alex MD [address] [place] [id number] Jordy Gambino DO [address] [facility] [address] [place] [address] Terrence Bourgeois JR, MD 1002 [facility] [address] [place] [address] Dre Alejandre MD [address] [place] [address] CONTINUED ON NEXT PAGE ----- -------RUN DATE: 12/14/18 [facility] *LIVE* PAGE 2 RUN TIME: 1123 Specimen Inquiry RUN USER: INTERFACE SPEC #: [id number] PATIENT: HEIDI STEINER #[id number] (Continued) COPIES TO: (Continued) Kleber Marquez MD [address] [place] [address] [place] [address] Jami Blas MD [address] [place] [address] Joycelyn Person MD [address] [facility] [address] [place] [address] [email or web address] PROCEDURES: GM LEVEL 4 (Incomplete) TISSUES: 1. [...] MD 1123 END OF REPORT CBC W/AUTO [id number] 09:48:00* Test Item Value Reference Range Interpretation [...] REQUIRED (test code = MDIFF) YES PATHOLOGISTS [id number] 09:48:00* Test Item Value Reference Range Interpretation Comments PATHOLOGISTS FINDINGS (test code = PATH FIND) WBC [id number] 09:48:00* Test Item Value Reference Range Interpretation [...] code = PLTMORPH) GIANT PLATELETS CBC W/AUTO [id number] 09:47:00* Test Item Value Reference Range Interpretation [...] REQUIRED (test code = MDIFF) YES PATHOLOGISTS [id number] 09:47:00* Test Item Value Reference Range Interpretation Comments PATHOLOGISTS FINDINGS (test code = PATH FIND) WBC [id number] 09:47:00* Test Item Value Reference Range Interpretation Comments ANISOCYTOSIS (test code = ANISO) PLATELET ESTIMATE (test code = PLTEST) THOUSAND ADEQUATE CBC W/AUTO [id number] 09:47:00* Test Item Value Reference Range Interpretation [...] REQUIRED (test code = MDIFF) YES WBC [id number] 09:47:00* Test Item Value Reference Range Interpretation Comments ANISOCYTOSIS (test code = ANISO) PLATELET ESTIMATE (test code = PLTEST) THOUSAND ADEQUATE CBC W/AUTO [id number] 09:20:00* Test Item Value Reference Range Interpretation [...] DIFF REQUIRED (test code = MDIFF) PLT [id number] 09:20:00* Test Item Value Reference Range Interpretation Comments PLATELET ESTIMATE (test code = PLTEST) THOUSAND ADEQUATE CBC W/AUTO [id number] 09:20:00* Test Item Value Reference Range Interpretation [...] DIFF REQUIRED (test code = MDIFF) PLT [id number] 09:20:00* Test Item Value Reference Range Interpretation Comments PLATELET ESTIMATE (test code = PLTEST) THOUSAND ADEQUATE - XR ABDOMEN 1V (KUB)2018-12-14 08:46:00 FAX: Salud Pavon MD Ker[place]: St: ADM FAX: Jordy Martinez DO [phone] FAX: Dwayne Millan [phone] [facility] 1960 Age/S: 58/F [address] [place] [address] Unit #: [id number] Loc: [address] [address] Phys: Salud Pavon MD Acct: [id number] Dis Date: Status: ADM IN ONE #: [phone] Exam Date: 12/14/2018 0839 FAX #: [phone] Reason: abdominal distension EXAMS: CPT CODE: [id number] XR ABDOMEN 1V (KUB) 36731 EXAM: XR ABDOM EN 1 VIEW DATE: [...] abnormality. IMPRESSION: Nonspecific bowel gas pattern. SL: [id number] at 0846 Reported and signed by: Madelyn Christine D.O. CC: Salud Pavon MD; Jordy Gambino DO; Joycelyn Person MD Technologist: RT Suman(Eduarda) Trnscrd Date/Time/By: 12/14/2018 (0874) : By: [email or web address] Orig Print D/T: S: 12/14/2018 (7343) PAGE 1 Signed Report COMPREHENSIVE METABOLIC [id number] 07:30:00* Test Item Value Reference Range Interpretation [...] code = ALKP) 49 IUnit/L 20-125 N [id number] 06:49:00* Test Item Value Reference Range Interpretation Comments GLUBED (test code = GLUBED) 93 MG/DL 70-110 N Performed by certified radio operator ground at [facility] HGB [id number] 21:11:00* Test Item Value Reference Range Interpretation Comments HEMOGLOBIN (test code = HGB) 5.7 g/dL 11.0-15.0 LL HEMATOCRIT (test code = HCT) 17.1 % 33.0-45.0 L HGB [id number] 13:28:00* Test Item Value Reference Range Interpretation Comments HEMOGLOBIN (test code = HGB) 5.4 g/dL 11.0-15.0 LL HEMATOCRIT (test code = HCT) 15.7 % 33.0-45.0 L PROTHROMBIN [id number] 09:48:00* Test Item Value Reference Range Interpretation [...] Infarction (to prevent recurrent infarct). THROMBOPLASTIN TIME [id number] 09:48:00* Test Item Value Reference Range Interpretation Comments THROMBOPLASTIN TIME PARTIAL (test code = PTT) 38.1 Seconds 25.0-39. 5 Therapeutic Range: 61.8-83.8 Sec Effective 11/13/2013 [id number] 09:48:00* Test Item Value Reference Range Interpretation Comments FIBRINOGEN (test code = FIB) 141 MG/DL 160-450 L Excess administration of anticoagulants and/or FibrinDegradation Products may affect Fibrinogen value. CBC W/AUTO [id number] 08:38:00* Test Item Value Reference Range Interpretation [...] REQUIRED (test code = MDIFF) YES WBC [id number] 08:38:00* Test Item Value Reference Range Interpretation [...] = PLTMORPH) GIANT PLATELETS FEW CBC W/AUTO [id number] 08:31:00* Test Item Value Reference Range Interpretation [...] REQUIRED (test code = MDIFF) YES WBC [id number] 08:31:00* Test Item Value Reference Range Interpretation Comments ANISOCYTOSIS (test code = ANISO) PLATELET ESTIMATE (test code = PLTEST) THOUSAND ADEQUATE CBC W/AUTO [id number] 08:31:00* Test Item Value Reference Range Interpretation [...] REQUIRED (test code = MDIFF) YES WBC [id number] 08:31:00* Test Item Value Reference Range Interpretation Comments ANISOCYTOSIS (test code = ANISO) PLATELET ESTIMATE (test code = PLTEST) THOUSAND ADEQUATE - XR CHEST 1 [id number] 07:26:00 FAX: Jordy Martinez DO [phone] [place]: St: ADM FAX: Alexsandra Barron MD [phone] FAX: Dwayne Millan [phone] Name: HEIDI STEINER [facility] Jesus Zapata : 1960 Age/S: 58/F [address] [place] [address] Unit #: [id number] Loc: G.M[address] [place] [address] Phys: Alexsandra Barron MD Acct: [id number] Dis Date: Status: ADM IN ONE #: [phone] Exam Date: 12/13/2018 0536 FAX #: [phone] Reason: ETT EXAMS: CPT CODE: [id number] XR CHEST 1 V 44673 CHEST, SINGLE VIEW HISTORY: Intubated Comparison made [...] Joycelyn Person MD Technologist: Laura liu RT(R); Maria C Lima RT(R) Trnscrd Date/Time/By: 12/13/2018 (07 26) : By: Fernando Orig Print D/T: S: 12/13/2018 (8286) PAGE 1 Signed Report COMPREHENSIVE METABOLIC [id number] 07:15:00* Test Item Value Reference Range Interpretation [...] = ALKP) 61 IUnit/L 20-125 CBC W/AUTO [id number] 07:08:00* Test Item Value Reference Range Interpretation [...] MANUAL DIFF REQUIRED (test code = MDIFF) [id number] 06:27:00* Test Item Value Reference Range Interpretation Comments GLUBED (test code = GLUBED) 127 MG/DL 70-110 H Performed by certified radio operator ground at [facility] ARTERIAL BLOOD [id number] 06:02:00* Test Item Value Reference Range Interpretation [...] = PEEPA) 5 cmH2O Performed by certified radio operator ground at [facility] ABG TEMPERATURE (test code = TEMPA) 97.8 F ABG SITE (test code = SITEA) Art line PREDICTED AA GRADIENT (test code = AP) 62 PREDICTED PO2 (test code = OP) 177 a/A RATIO (test code = RATIO) 0.66 TCO2 ARTERIAL (test code = TCO2A) 25 A-A GRADIENT (test code = AAGRADE) 81 HGB [id number] 02:20:00* Test Item Value Reference Range Interpretation Comments HEMOGLOBIN (test code = HGB) 4.6 g/dL 11.0-15.0 LL HEMATOCRIT (test code = HCT) 13.6 % 33.0-45.0 L [id number] 23:43:00* Test Item Value Reference Range Interpretation Comments GLUBED (test code = GLUBED) 119 MG/DL 70-110 H Performed by certified radio operator ground at [facility] HEPARIN INDUCED [id number] 16:29:00* Test Item Value Reference Range Interpretation [...] as the 4T score and the 2013 [place] [employer]emat[employer] guidelines. NEGATIVE results indicate the [...] heparin for at least4 hours. THROMBOPLASTIN TIME [id number] 13:49:00* Test Item Value Reference Range Interpretation Comments THROMBOPLASTIN TIME PARTIAL (test code = PTT) 51.4 Seconds 25.0-39. 5 H Therapeutic Range: 61.8-83.8 Sec Effective 11/13/2013 [id number] 13:49:00* Test Item Value Reference Range Interpretation Comments FIBRINOGEN (test code = FIB) 124 MG/DL 160-450 L Excess administration of anticoagulants and/or FibrinDegradation Products may affect Fibrinogen value. - XR ABDOMEN 1V (KUB)2018-12-12 13:06:00 FAX: Jordy Martinez DO [phone] [place]: St: ADM FAX: Alexsandra Barron MD [phone] FAX: Dwayne Millan [phone] Name: HEIDI STEINER [facility] : 1960 Age/S: 58/F [address] [place] [address] Unit #: [id number] Loc: G.M[address] [place] [address] Phys: Alexsandra Barron MD Acct: [id number] Dis Date: Status: ADM IN ONE #: [phone] Exam Date: 12/12/2018 1220 FAX #: [phone] Reason: NGT Placement EXAMS: CPT CODE: [id number] XR ABDOMEN 1V (KUB) 66929 ABDOMEN PORTAB LE AP VIEW, 12/12/2018 COMPARISON: [...] Joycelyn Person MD Technologist: Geovanna Leal, RT(R) Trnscrd Date/Time/By: 12/12/2018 (4010) : By: [email or web address] Orig Print D/T: S: 12/12/2018 (6353) PAGE 1 Signed Report CBC W/AUTO [id number] 12:52:00* Test Item Value Reference Range Interpretation [...] REQUIRED (test code = MDIFF) YES WBC [id number] 12:52:00* Test Item Value Reference Range Interpretation [...] FEW GIANT PLTS - XR CHEST 1 [id number] 12:40:00 FAX: Jennifer Jordy Gambino [phone] [place]: St: ADM FAX: Alexsandra Barron MD [phone] FAX: Jennifer XiaoLong wassermanbeto [phone] Name: OBDULIAHEIDI [facility] : 1960 Age/S: 58/F [address] [place] [address] Blvd Unit #: [id number] Loc: G.M[address] [place] [address] Phys: Alexsandra Barron MD Acct: [id number] Dis Date: Status: ADM IN ONE #: [phone] Exam Date: 12/12/2018 1223 FAX #: [phone] Reason: Post intubation EXAMS: CPT CODE: [id number] XR CHEST 1 V 61501 EXAM: XR CHEST 1 VIEW DATE: 12/12/2018 [...] with mild left basilar airspace disease. SL: [id number] at 1240 Reported and signed by: Madelyn Christine D.O. CC: Jordy Gambino DO; Alexsandra Barron MD; Joycelyn Person MD Technologist: Geovanna Leal RT(R) Trnscrd Date/Time/By: 12/12/2018 (2332) : By: [email or web address] Orig Print D/T: S: 12/12/2018 (3560) PAGE 1 Signed Report ARTERIAL BLOOD GAS [...] = PEEPA) 5 cmH2O Performed by certified radio operator ground at [facility] ABG TEMPERATURE (test code = TEMPA) 98.6 F ABG SITE (test code = SITEA) Art line PREDICTED AA GRADIENT (test code = AP) 180 PREDICTED PO2 (test code = OP) 513 a/A RATIO (test code = RATIO) 0.80 TCO2 ARTERIAL (test code = TCO2A) 6 A-A GRADIENT (test code = AAGRADE) 138 CBC W/AUTO [id number] 12:37:00* Test Item Value Reference Range Interpretation [...] REQUIRED (test code = MDIFF) YES WBC [id number] 12:37:00* Test Item Value Reference Range Interpretation Comments ANISOCYTOSIS (test code = ANISO) PLATELET ESTIMATE (test code = PLTEST) THOUSAND ADEQUATE CBC W/AUTO [id number] 12:37:00* Test Item Value Reference Range Interpretation [...] REQUIRED (test code = MDIFF) YES WBC [id number] 12:37:00* Test Item Value Reference Range Interpretation Comments ANISOCYTOSIS (test code = ANISO) PLATELET ESTIMATE (test code = PLTEST) THOUSAND ADEQUATE CBC W/AUTO [id number] 12:11:00* Test Item Value Reference Range Interpretation [...] REQUIRED (test code = MDIFF) BASIC METABOLIC [id number] 09:04:00* Test Item Value Reference Range Interpretation [...] CA) 6.7 mg/dL 8.0-10.5 L CBC W/AUTO [id number] 08:43:00* Test Item Value Reference Range Interpretation [...] REQUIRED (test code = MDIFF) YES WBC [id number] 08:43:00* Test Item Value Reference Range Interpretation [...] LARGE PLATELETS FEW GIANT PLTS CBC W/AUTO [id number] 08:23:00* Test Item Value Reference Range Interpretation [...] REQUIRED (test code = MDIFF) YES WBC [id number] 08:23:00* Test Item Value Reference Range Interpretation Comments ANISOCYTOSIS (test code = ANISO) PLATELET ESTIMATE (test code = PLTEST) THOUSAND ADEQUATE CBC W/AUTO [id number] 08:23:00* Test Item Value Reference Range Interpretation [...] REQUIRED (test code = MDIFF) YES WBC [id number] 08:23:00* Test Item Value Reference Range Interpretation Comments ANISOCYTOSIS (test code = ANISO) PLATELET ESTIMATE (test code = PLTEST) THOUSAND ADEQUATE - DUP VEIN [id number] 07:24:00 Name: HEIDI STEINER [facility] : 1960 Age/S: 58 / F [address] [place] [address] Blvd Unit #: [id number] Loc: [place] [address] Phys: Dre Alejandre MD Acct: [id number] Dis Date: Status: ADM IN PHONE #: [phone] Exam Date: 12/12/2018 0641 FAX #: [phone] Reason: B/L LE ultrasound- +PE, r/o DVT EXAMS: CPT CODE: [id number] DUP VEIN ULICES 99689 PROCEDURE: BILATERAL LOWER EXTREMITY VENOUS ULTRASOUND INDICATION: [...] Berumen RN on 12/12/2018 7:23 AM. SL: CY-H at 0724 Reported and signed by: Radha Peerz M.D. CC: Jordy Gambino DO; Dre Alejandre MD; Joycelyn Person MD Technologist: Marlyn Moreno RDMS(A)(OB) Trnscb Date/Time: 12/12/2018 (723) t.VONR.RH17 Orig Print D/T: S: 12/12/2018 (0728) Probe: PAGE 1 Signed Report GLUBED 2018-12-12 06:47:00* Test Item Value Reference Range Interpretation Comments GLUBED (test code = GLUBED) 91 MG/DL 70-110 N Performed by certified radio operator ground at [facility] [id number] 04:33:00* Test Item Value Reference Range Interpretation Comments GLUBED (test code = GLUBED) 64 MG/DL 70-110 L Performed by certified radio operator ground at [facility] BASIC METABOLIC [id number] 04:19:00* Test Item Value Reference Range Interpretation [...] code = CA) 7.1 mg/dL 8.0-10.5 L [id number] 04:19:00* Test Item Value Reference Range Interpretation Comments PHOSPHOROUS (test code = PHOS) 2.4 mg/dL 2.5-4.9 L [id number] 04:19:00* Test Item Value Reference Range Interpretation Comments MAGNESIUM (test code = MAG) 1.70 mg/dL 1.8-2.4 L CALCIUM [id number] 04:19:00* Test Item Value Reference Range Interpretation Comments CALCIUM IONIZED (test code = CONNIE) 1.06 MMOL/L 1.12-1.32 L BASIC METABOLIC [id number] 04:07:00* Test Item Value Reference Range Interpretation [...] CALCIUM (test code = CA) mg/dL 8.0-10.5 [id number] 04:07:00* Test Item Value Reference Range Interpretation Comments PHOSPHOROUS (test code = PHOS) mg/dL 2.5-4.9 [id number] 04:07:00* Test Item Value Reference Range Interpretation Comments MAGNESIUM (test code = MAG) mg/dL 1.8-2.4 CALCIUM [id number] 04:07:00* Test Item Value Reference Range Interpretation Comments CALCIUM IONIZED (test code = CONNIE) 1.06 MMOL/L 1.12-1.32 L CBC W/AUTO [id number] 04:04:00* Test Item Value Reference Range Interpretation [...] REQUIRED (test code = MDIFF) CBC W/AUTO [id number] 23:54:00* Test Item Value Reference Range Interpretation [...] REQUIRED (test code = MDIFF) YES WBC [id number] 23:54:00* Test Item Value Reference Range Interpretation [...] code = PLTMORPH) LARGE PLATELETS CBC W/AUTO [id number] 23:38:00* Test Item Value Reference Range Interpretation [...] REQUIRED (test code = MDIFF) YES WBC [id number] 23:38:00* Test Item Value Reference Range Interpretation Comments ANISOCYTOSIS (test code = ANISO) PLATELET ESTIMATE (test code = PLTEST) THOUSAND ADEQUATE CBC W/AUTO [id number] 23:38:00* Test Item Value Reference Range Interpretation [...] REQUIRED (test code = MDIFF) YES WBC [id number] 23:38:00* Test Item Value Reference Range Interpretation Comments ANISOCYTOSIS (test code = ANISO) PLATELET ESTIMATE (test code = PLTEST) THOUSAND ADEQUATE BASIC METABOLIC [id number] 22:26:00* Test Item Value Reference Range Interpretation [...] CA) 7.4 mg/dL 8.0-10.5 L CBC W/AUTO [id number] 22:17:00* Test Item Value Reference Range Interpretation [...] code = MDIFF) - XR CHEST 1 [id number] 19:37:00 FAX: Jordy Martinez DO [phone] [place]: St: ADM FAX: Marc Goodman [phone] FAX: Dwayne Millan [phone] Name: HEIDI STEINER [facility] : 1960 Age/S: 58/F [address] [place] [address] Unit #: [id number] Loc: G.[address] [place] [address] Phys: Marc Goodman [facility] Acct: [id number] Dis Date: Status: ADM IN PH ONE #: [phone] Exam Date: 12/11/20181932 FAX #: [phone] Reason: Post Central Line Placemnent +/- R/O Pneumothor EXAMS: CPT CODE: [id number] XR CHEST 1 V 60466 CHEST RADIOGRA PH ONE VIEW 12/11/2018 AT [...] M.D. CC: Jordy Gambino DO; Marc Goodman WELDER TECH; Joycelyn schneider MD Technologist: Doroteo Mittal RT(R) Trnscrd Date/Time/By: 12/11/2018 (1936) : By: [email or web address] Orig Print D/T: S: 12/11/2018 (1939) PAGE 1 Signed Report VITAMIN [id number] 19:23:00* Test Item Value Reference Range Interpretation Comments VITAMIN B12 (test code = VITB12) 3853 pg/mL 193-986 H FOLIC [id number] 19:23:00* Test Item Value Reference Range Interpretation Comments FOLIC ACID (test code = FOL) 8.0 ng/mL 3.1-17.5 N POC ARTERIAL BLOOD [id number] 19:09:00* Test Item Value Reference Range Interpretation Comments POC ARTERIAL BLOOD GAS PH (test code = POCPHA) 7.411 7.35-7. 45 N POC ARTERIAL BLOOD GAS PCO2 (test code = GYUWBN4N) 32.6 mmHg 35. 0-45 L POC TCO2 ARTERIAL (test code = POCTCO2) 21.7 POC ARTERIAL BLOOD GAS PO2 (test code = BJCTE9W) 523.4 mmHg 80-10 0.0 HH POC HCO3 ARTERIAL (test code = GVVKCV0P) 20.7 MMOL/L 22.0-26.0 L POC BASE EXCESS (test code = POCBEA) -3.4 MMOL/L -4.0-4.0 N POC O2 SATURATION (test code = POCO2S) 100.0 % 90-100 N [id number] 19:09:00* Test Item Value Reference Range Interpretation Comments SODIUM (test code = NA/ABG) MEQ/L 134-147 [id number] 19:09:00* Test Item Value Reference Range Interpretation Comments POTASSIUM (test code = K/ABG) MEQ/L 3.4-5.0 [id number] 19:09:00* Test Item Value Reference Range Interpretation Comments CHLORIDE (test code = CL/ABG) MEQ/L 100-108 CREATININE [id number] 19:09:00* Test Item Value Reference Range Interpretation Comments CREATININE ABG (test code = CREAABG) mg/dL 0.6-1.0 [id number] 19:09:00* Test Item Value Reference Range Interpretation Comments HEMOGLOBIN (test code = HGB/ABG) G/DL 11.0-15.0 [id number] 19:09:00* Test Item Value Reference Range Interpretation Comments HEMATOCRIT (test code = HCT/ABG) % 33.0-45.0 POC IONIZED [id number] 19:09:00* Test Item Value Reference Range Interpretation Comments POC IONIZED CALCIUM (test code = POCCA) MMOL/L 1.12-1.32 POC [id number] 19:09:00* Test Item Value Reference Range Interpretation Comments POC GLUCOSE (test code = POCGLU) MG/DL 70-110 POC ARTERIAL BLOOD [id number] 19:09:00* Test Item Value Reference Range Interpretation Comments POC ARTERIAL BLOOD GAS PH (test code = POCPHA) 7.411 7.35-7. 45 N POC ARTERIAL BLOOD GAS PCO2 (test code = QBZASD7R) 32.6 mmHg 35. 0-45 L POC TCO2 ARTERIAL (test code = POCTCO2) 21.7 POC ARTERIAL BLOOD GAS PO2 (test code = OPVHW8F) 523.4 mmHg 80-10 0.0 HH POC HCO3 ARTERIAL (test code = JJFYYP0Y) 20.7 MMOL/L 22.0-26.0 L POC BASE EXCESS (test code = POCBEA) -3.4 MMOL/L -4.0-4.0 N POC O2 SATURATION (test code = POCO2S) 100.0 % 90-100 N [id number] 19:09:00* Test Item Value Reference Range Interpretation Comments SODIUM (test code = NA/ABG) 136 MEQ/L 134-147 N [id number] 19:09:00* Test Item Value Reference Range Interpretation Comments POTASSIUM (test code = K/ABG) MEQ/L 3.4-5.0 [id number] 19:09:00* Test Item Value Reference Range Interpretation Comments CHLORIDE (test code = CL/ABG) MEQ/L 100-108 CREATININE [id number] 19:09:00* Test Item Value Reference Range Interpretation Comments CREATININE ABG (test code = CREAABG) mg/dL 0.6-1.0 [id number] 19:09:00* Test Item Value Reference Range Interpretation Comments HEMOGLOBIN (test code = HGB/ABG) G/DL 11.0-15.0 [id number] 19:09:00* Test Item Value Reference Range Interpretation Comments HEMATOCRIT (test code = HCT/ABG) % 33.0-45.0 POC IONIZED [id number] 19:09:00* Test Item Value Reference Range Interpretation Comments POC IONIZED CALCIUM (test code = POCCA) MMOL/L 1.12-1.32 POC [id number] 19:09:00* Test Item Value Reference Range Interpretation Comments POC GLUCOSE (test code = POCGLU) MG/DL 70-110 POC ARTERIAL BLOOD [id number] 19:09:00* Test Item Value Reference Range Interpretation Comments POC ARTERIAL BLOOD GAS PH (test code = POCPHA) 7.411 7.35-7. 45 N POC ARTERIAL BLOOD GAS PCO2 (test code = JBPTYS9I) 32.6 mmHg 35. 0-45 L POC TCO2 ARTERIAL (test code = POCTCO2) 21.7 POC ARTERIAL BLOOD GAS PO2 (test code = QPOZY5G) 523.4 mmHg 80-10 0.0 HH POC HCO3 ARTERIAL (test code = OCXEAC4J) 20.7 MMOL/L 22.0-26.0 L POC BASE EXCESS (test code = POCBEA) -3.4 MMOL/L -4.0-4.0 N POC O2 SATURATION (test code = POCO2S) 100.0 % 90-100 N [id number] 19:09:00* Test Item Value Reference Range Interpretation Comments SODIUM (test code = NA/ABG) 136 MEQ/L 134-147 N [id number] 19:09:00* Test Item Value Reference Range Interpretation Comments POTASSIUM (test code = K/ABG) 3.8 MEQ/L 3.4-5.0 N [id number] 19:09:00* Test Item Value Reference Range Interpretation Comments CHLORIDE (test code = CL/ABG) MEQ/L 100-108 CREATININE [id number] 19:09:00* Test Item Value Reference Range Interpretation Comments CREATININE ABG (test code = CREAABG) mg/dL 0.6-1.0 [id number] 19:09:00* Test Item Value Reference Range Interpretation Comments HEMOGLOBIN (test code = HGB/ABG) G/DL 11.0-15.0 [id number] 19:09:00* Test Item Value Reference Range Interpretation Comments HEMATOCRIT (test code = HCT/ABG) % 33.0-45.0 POC IONIZED [id number] 19:09:00* Test Item Value Reference Range Interpretation Comments POC IONIZED CALCIUM (test code = POCCA) MMOL/L 1.12-1.32 POC [id number] 19:09:00* Test Item Value Reference Range Interpretation Comments POC GLUCOSE (test code = POCGLU) MG/DL 70-110 POC ARTERIAL BLOOD [id number] 19:09:00* Test Item Value Reference Range Interpretation Comments POC ARTERIAL BLOOD GAS PH (test code = POCPHA) 7.411 7.35-7. 45 N POC ARTERIAL BLOOD GAS PCO2 (test code = SRWGKW8K) 32.6 mmHg 35. 0-45 L POC TCO2 ARTERIAL (test code = POCTCO2) 21.7 POC ARTERIAL BLOOD GAS PO2 (test code = RQNGR2K) 523.4 mmHg 80-10 0.0 HH POC HCO3 ARTERIAL (test code = ASOQDU0R) 20.7 MMOL/L 22.0-26.0 L POC BASE EXCESS (test code = POCBEA) -3.4 MMOL/L -4.0-4.0 N POC O2 SATURATION (test code = POCO2S) 100.0 % 90-100 N [id number] 19:09:00* Test Item Value Reference Range Interpretation Comments SODIUM (test code = NA/ABG) 136 MEQ/L 134-147 N [id number] 19:09:00* Test Item Value Reference Range Interpretation Comments POTASSIUM (test code = K/ABG) 3.8 MEQ/L 3.4-5.0 N [id number] 19:09:00* Test Item Value Reference Range Interpretation Comments CHLORIDE (test code = CL/ABG) MEQ/L 100-108 CREATININE [id number] 19:09:00* Test Item Value Reference Range Interpretation Comments CREATININE ABG (test code = CREAABG) mg/dL 0.6-1.0 [id number] 19:09:00* Test Item Value Reference Range Interpretation Comments HEMOGLOBIN (test code = HGB/ABG) G/DL 11.0-15.0 [id number] 19:09:00* Test Item Value Reference Range Interpretation Comments HEMATOCRIT (test code = HCT/ABG) % 33.0-45.0 POC IONIZED [id number] 19:09:00* Test Item Value Reference Range Interpretation Comments POC IONIZED CALCIUM (test code = POCCA) 1.18 MMOL/L 1.12-1.32 N POC [id number] 19:09:00* Test Item Value Reference Range Interpretation Comments POC GLUCOSE (test code = POCGLU) MG/DL 70-110 POC ARTERIAL BLOOD [id number] 19:09:00* Test Item Value Reference Range Interpretation Comments POC ARTERIAL BLOOD GAS PH (test code = POCPHA) 7.411 7.35-7. 45 N POC ARTERIAL BLOOD GAS PCO2 (test code = IUPPKM8M) 32.6 mmHg 35. 0-45 L POC TCO2 ARTERIAL (test code = POCTCO2) 21.7 POC ARTERIAL BLOOD GAS PO2 (test code = OTQZT6Z) 523.4 mmHg 80-10 0.0 HH POC HCO3 ARTERIAL (test code = UUTBMK1J) 20.7 MMOL/L 22.0-26.0 L POC BASE EXCESS (test code = POCBEA) -3.4 MMOL/L -4.0-4.0 N POC O2 SATURATION (test code = POCO2S) 100.0 % 90-100 N [id number] 19:09:00* Test Item Value Reference Range Interpretation Comments SODIUM (test code = NA/ABG) 136 MEQ/L 134-147 N [id number] 19:09:00* Test Item Value Reference Range Interpretation Comments POTASSIUM (test code = K/ABG) 3.8 MEQ/L 3.4-5.0 N [id number] 19:09:00* Test Item Value Reference Range Interpretation Comments CHLORIDE (test code = CL/ABG) MEQ/L 100-108 CREATININE [id number] 19:09:00* Test Item Value Reference Range Interpretation Comments CREATININE ABG (test code = CREAABG) mg/dL 0.6-1.0 [id number] 19:09:00* Test Item Value Reference Range Interpretation Comments HEMOGLOBIN (test code = HGB/ABG) G/DL 11.0-15.0 [id number] 19:09:00* Test Item Value Reference Range Interpretation Comments HEMATOCRIT (test code = HCT/ABG) % 33.0-45.0 POC IONIZED [id number] 19:09:00* Test Item Value Reference Range Interpretation Comments POC IONIZED CALCIUM (test code = POCCA) 1.18 MMOL/L 1.12-1.32 N POC [id number] 19:09:00* Test Item Value Reference Range Interpretation Comments POC GLUCOSE (test code = POCGLU) 90 MG/DL 70-110 N POC ARTERIAL BLOOD [id number] 19:09:00* Test Item Value Reference Range Interpretation Comments POC ARTERIAL BLOOD GAS PH (test code = POCPHA) 7.411 7.35-7. 45 N POC ARTERIAL BLOOD GAS PCO2 (test code = QUTGGN7P) 32.6 mmHg 35. 0-45 L POC TCO2 ARTERIAL (test code = POCTCO2) 21.7 POC ARTERIAL BLOOD GAS PO2 (test code = LNFZM7P) 523.4 mmHg 80-10 0.0 HH POC HCO3 ARTERIAL (test code = SHGTAM5H) 20.7 MMOL/L 22.0-26.0 L POC BASE EXCESS (test code = POCBEA) -3.4 MMOL/L -4.0-4.0 N POC O2 SATURATION (test code = POCO2S) 100.0 % 90-100 N [id number] 19:09:00* Test Item Value Reference Range Interpretation Comments SODIUM (test code = NA/ABG) 136 MEQ/L 134-147 N [id number] 19:09:00* Test Item Value Reference Range Interpretation Comments POTASSIUM (test code = K/ABG) 3.8 MEQ/L 3.4-5.0 N [id number] 19:09:00* Test Item Value Reference Range Interpretation Comments CHLORIDE (test code = CL/ABG) MEQ/L 100-108 CREATININE [id number] 19:09:00* Test Item Value Reference Range Interpretation Comments CREATININE ABG (test code = CREAABG) mg/dL 0.6-1.0 [id number] 19:09:00* Test Item Value Reference Range Interpretation Comments HEMOGLOBIN (test code = HGB/ABG) G/DL 11.0-15.0 [id number] 19:09:00* Test Item Value Reference Range Interpretation Comments HEMATOCRIT (test code = HCT/ABG) 26 % 33.0-45.0 L POC IONIZED [id number] 19:09:00* Test Item Value Reference Range Interpretation Comments POC IONIZED CALCIUM (test code = POCCA) 1.18 MMOL/L 1.12-1.32 N POC [id number] 19:09:00* Test Item Value Reference Range Interpretation Comments POC GLUCOSE (test code = POCGLU) 90 MG/DL 70-110 N POC ARTERIAL BLOOD [id number] 19:09:00* Test Item Value Reference Range Interpretation Comments POC ARTERIAL BLOOD GAS PH (test code = POCPHA) 7.411 7.35-7. 45 N POC ARTERIAL BLOOD GAS PCO2 (test code = HBXFZG3N) 32.6 mmHg 35. 0-45 L POC TCO2 ARTERIAL (test code = POCTCO2) 21.7 POC ARTERIAL BLOOD GAS PO2 (test code = HUIRG0K) 523.4 mmHg 80-10 0.0 HH POC HCO3 ARTERIAL (test code = MWLWKA4O) 20.7 MMOL/L 22.0-26.0 L POC BASE EXCESS (test code = POCBEA) -3.4 MMOL/L -4.0-4.0 N POC O2 SATURATION (test code = POCO2S) 100.0 % 90-100 N [id number] 19:09:00* Test Item Value Reference Range Interpretation Comments SODIUM (test code = NA/ABG) 136 MEQ/L 134-147 N [id number] 19:09:00* Test Item Value Reference Range Interpretation Comments POTASSIUM (test code = K/ABG) 3.8 MEQ/L 3.4-5.0 N [id number] 19:09:00* Test Item Value Reference Range Interpretation Comments CHLORIDE (test code = CL/ABG) MEQ/L 100-108 CREATININE [id number] 19:09:00* Test Item Value Reference Range Interpretation Comments CREATININE ABG (test code = CREAABG) mg/dL 0.6-1.0 [id number] 19:09:00* Test Item Value Reference Range Interpretation Comments HEMOGLOBIN (test code = HGB/ABG) 8.9 G/DL 11.0-15.0 L [id number] 19:09:00* Test Item Value Reference Range Interpretation Comments HEMATOCRIT (test code = HCT/ABG) 26 % 33.0-45.0 L POC IONIZED [id number] 19:09:00* Test Item Value Reference Range Interpretation Comments POC IONIZED CALCIUM (test code = POCCA) 1.18 MMOL/L 1.12-1.32 N POC [id number] 19:09:00* Test Item Value Reference Range Interpretation Comments POC GLUCOSE (test code = POCGLU) 90 MG/DL 70-110 N POC ARTERIAL BLOOD [id number] 19:09:00* Test Item Value Reference Range Interpretation Comments POC ARTERIAL BLOOD GAS PH (test code = POCPHA) 7.411 7.35-7. 45 N POC ARTERIAL BLOOD GAS PCO2 (test code = JUCRLN7T) 32.6 mmHg 35. 0-45 L POC TCO2 ARTERIAL (test code = POCTCO2) 21.7 POC ARTERIAL BLOOD GAS PO2 (test code = OLJFH4Y) 523.4 mmHg 80-10 0.0 HH POC HCO3 ARTERIAL (test code = OZINUJ8C) 20.7 MMOL/L 22.0-26.0 L POC BASE EXCESS (test code = POCBEA) -3.4 MMOL/L -4.0-4.0 N POC O2 SATURATION (test code = POCO2S) 100.0 % 90-100 N [id number] 19:09:00* Test Item Value Reference Range Interpretation Comments SODIUM (test code = NA/ABG) 136 MEQ/L 134-147 N [id number] 19:09:00* Test Item Value Reference Range Interpretation Comments POTASSIUM (test code = K/ABG) 3.8 MEQ/L 3.4-5.0 N [id number] 19:09:00* Test Item Value Reference Range Interpretation Comments CHLORIDE (test code = CL/ABG) 103 MEQ/L 100-108 N CREATININE [id number] 19:09:00* Test Item Value Reference Range Interpretation Comments CREATININE ABG (test code = CREAABG) mg/dL 0.6-1.0 [id number] 19:09:00* Test Item Value Reference Range Interpretation Comments HEMOGLOBIN (test code = HGB/ABG) 8.9 G/DL 11.0-15.0 L [id number] 19:09:00* Test Item Value Reference Range Interpretation Comments HEMATOCRIT (test code = HCT/ABG) 26 % 33.0-45.0 L POC IONIZED [id number] 19:09:00* Test Item Value Reference Range Interpretation Comments POC IONIZED CALCIUM (test code = POCCA) 1.18 MMOL/L 1.12-1.32 N POC [id number] 19:09:00* Test Item Value Reference Range Interpretation Comments POC GLUCOSE (test code = POCGLU) 90 MG/DL 70-110 N POC ARTERIAL BLOOD [id number] 19:09:00* Test Item Value Reference Range Interpretation Comments POC ARTERIAL BLOOD GAS PH (test code = POCPHA) 7.411 7.35-7. 45 N POC ARTERIAL BLOOD GAS PCO2 (test code = CZBBAO4J) 32.6 mmHg 35. 0-45 L POC TCO2 ARTERIAL (test code = POCTCO2) 21.7 POC ARTERIAL BLOOD GAS PO2 (test code = ULYPI1E) 523.4 mmHg 80-10 0.0 HH POC HCO3 ARTERIAL (test code = RCYBOK6X) 20.7 MMOL/L 22.0-26.0 L POC BASE EXCESS (test code = POCBEA) -3.4 MMOL/L -4.0-4.0 N POC O2 SATURATION (test code = POCO2S) 100.0 % 90-100 N [id number] 19:09:00* Test Item Value Reference Range Interpretation Comments SODIUM (test code = NA/ABG) 136 MEQ/L 134-147 N [id number] 19:09:00* Test Item Value Reference Range Interpretation Comments POTASSIUM (test code = K/ABG) 3.8 MEQ/L 3.4-5.0 N [id number] 19:09:00* Test Item Value Reference Range Interpretation Comments CHLORIDE (test code = CL/ABG) 103 MEQ/L 100-108 N CREATININE [id number] 19:09:00* Test Item Value Reference Range Interpretation Comments CREATININE ABG (test code = CREAABG) 0.5 mg/dL 0.6-1.0 L [id number] 19:09:00* Test Item Value Reference Range Interpretation Comments HEMOGLOBIN (test code = HGB/ABG) 8.9 G/DL 11.0-15.0 L [id number] 19:09:00* Test Item Value Reference Range Interpretation Comments HEMATOCRIT (test code = HCT/ABG) 26 % 33.0-45.0 L POC IONIZED [id number] 19:09:00* Test Item Value Reference Range Interpretation Comments POC IONIZED CALCIUM (test code = POCCA) 1.18 MMOL/L 1.12-1.32 N POC [id number] 19:09:00* Test Item Value Reference Range Interpretation Comments POC GLUCOSE (test code = POCGLU) 90 MG/DL 70-110 N COMPREHENSIVE METABOLIC [id number] 18:25:00* Test Item Value Reference Range Interpretation [...] ALKP) 213 IUnit/L 20-125 H CBC W/AUTO [id number] 17:52:00* Test Item Value Reference Range Interpretation [...] REQUIRED (test code = MDIFF) YES WBC [id number] 17:52:00* Test Item Value Reference Range Interpretation Comments ANISOCYTOSIS (test code = ANISO) PLATELET ESTIMATE (test code = PLTEST) THOUSAND ADEQUATE CBC W/AUTO [id number] 17:52:00* Test Item Value Reference Range Interpretation [...] REQUIRED (test code = MDIFF) YES WBC [id number] 17:52:00* Test Item Value Reference Range Interpretation [...] code = PLTMORPH) LARGE PLATELETS CBC W/AUTO [id number] 17:52:00* Test Item Value Reference Range Interpretation [...] REQUIRED (test code = MDIFF) YES WBC [id number] 17:52:00* Test Item Value Reference Range Interpretation Comments ANISOCYTOSIS (test code = ANISO) PLATELET ESTIMATE (test code = PLTEST) THOUSAND ADEQUATE COMPREHENSIVE METABOLIC [id number] 17:13:00* Test Item Value Reference Range Interpretation [...] (test code = ALKP) IUnit/L 20-125 PROTHROMBIN [id number] 17:06:00* Test Item Value Reference Range Interpretation [...] Infarction (to prevent recurrent infarct). THROMBOPLASTIN TIME [id number] 17:06:00* Test Item Value Reference Range Interpretation Comments THROMBOPLASTIN TIME PARTIAL (test code = PTT) 35.3 Seconds 25.0-39. 5 N Therapeutic Range: 61.8-83.8 Sec Effective 11/13/2013 TOTAL IRON BINDING [id number] 16:49:00* Test Item Value Reference Range Interpretation Comments SERUM IRON (test code = IRON) 99 mcg/dL 35-150 N TOTAL IRON BINDING CAPACITY (test code = TIBC) 90 mcg/dL 260-445 L UIBC (test code = UIBC) -9 mcg/dL IRON SATURATION (test code = FESAT) 110.0 % 14-34 H [id number] 16:49:00* Test Item Value Reference Range Interpretation Comments FERRITIN (test code = MINO) 485.1 ng/mL 11.0-306.8 H CBC W/AUTO [id number] 16:49:00* Test Item Value Reference Range Interpretation [...] REQUIRED (test code = MDIFF) BASIC METABOLIC [id number] 14:04:00* Test Item Value Reference Range Interpretation [...] = CA) 8.2 mg/dL 8.0-10.5 N NURSE [facility] 12/08/18 [id number] 14:04:00* Test Item Value Reference Range Interpretation Comments ALBUMIN (test code = ALB) 1.10 g/dL 3.4-5.0 L NURSE PEDRO P[facility]LO[facility] 12/08/18 [id number] 14:04:00* Test Item Value Reference Range Interpretation Comments MAGNESIUM (test code = MAG) 2.10 mg/dL 1.8-2.4 N NURSE PEDRO P[facility]LO.[facility] 12/08/18 [id number] 14:04:00* Test Item Value Reference Range Interpretation Comments PREALBUMIN (test code = PREALB) 5.5 mg/dL 16.0-40.0 L NURSE PEDRO PABLO.[facility] 12/08/18 1038- CT ABD PELVIS [id number] 14:13:00 Name: HEIDI STEINER [facility] : 1960 Age/S: 58 / F [address] [place] [address] Unit #: [id number] Loc: [place] [address] Phys: Jignesh Oconnell MD Acct: [id number] Di s Date: Status: ADM IN PHONE #: Exam Date: 12/09/2018 1118 FAX #: Reason: purulent drainage from ANIKA drain EXAMS: CPT CODE: [id number] CT ABD PELVIS W/CONT 84602 PROCEDURE: CT ABDOMEN AND PELVIS WITH CONTRAST [...] 1 Signed Report (CONTINUED) Name: HEIDI STEINER [facility] : 1960 Ag e/S: 58 / F [address] [place] [address] Unit #: [id number] Loc: [place] [address] Phys: Mathew Oconnell MD Acct: [id number] Dis Date: Status: ADM IN PHONE #: [phone] Exam Date: 12/09/2018 1118 FAX #: [phone] Reason: purulent drainage from ANIKA drain EXAMS: CPT CODE: [id number] CT ABD PELVIS W/CONT 91771 <Continued> quadrant end colostomy. APPENDIX: Normal. PERITONEUM: [...] Signed Report (CON TINUED) Name: HEIDI STEINER [facility] : 1960 Age/S: 58 / F [address] [place] [address] Blvd Unit #: [id number] Loc: [place] [address] Phys: Elio lacy,Mathew Lerner MD Acct: [id number] Dis Date: Status: ADM IN PH ONE #: [phone] Exam Date: 12/09/2018 1118 FAX #: Reason: purulent drainage from ANIKA drain EXA MS: CPT CODE: [id number] CT AB D PELVIS W/CONT 15835 <Continued> SL: [id number]-H at 1413 Reported and signed by: Deng More M.D. CC: Jordy Gambino DO; Mathew Oconnell MD; Joycelyn Person MD Technologist:RT Chester(R)(CT) CTDI: DLP: Trnscb Date/Time: 12/09/2018 (1413) [email or web address] Orig Print D/T: S: 12/09/2018 (1416) CTDI: DLP: PAGE 3 Signed Report - DUP VEIN [id number] 12:46:00 Name: HEIDI STEINER [facility] : 1960 Age/S: 58 / F [address] [place] [address] Unit #: [id number] Loc: [place] [address] Phys: Jean Carlos Khan MD Acct: [id number] Di s Date: Status: ADM IN PHONE #: [phone] Exam Date: 12/07/2018 1112 FAX #: Reason: BILAT UPPER EXT SWELLING EXAMS: CPT CODE: [id number] DUP VEIN ULICES 71560 PROCEDURE: BILATERAL UPPER EXTREMITY VENOUS ULTRASOUND INDICATION: [...] identified in the bilateral upper extremities. SL: [id number] at 1243 Reported and signed by: Radha Perez M.D. CC: Shakila Khan MD; Jordy Gambino DO; Joycelyn Person MD Technologist: Lachelle Rodriguez RDMS(BR)(AB) Trns cb Date/Time: 12/07/2018 (7066) NeetaRH17 Orig Print D/T: S: 12/07/2018 (9687) Probe: PAGE 1 Signed Report SURGICAL [id number] 07:45:00 RUN DATE: 12/06/18 [facility] *LIVE* PAGE 1 RUN TIME: 0745 Specimen Inqui ry RUN USER: INTERFACE PATIENT: HEIDI STEINER ACCT #: G [id number] [facility] U #: [id number] AGE/SX: 58/F ROOM: [facility] RE11/29/18REG DR: Long Person : 56 BED: 1 DIS: STATUS: ADM IN TLOC: SPEC #: [id number] RECD: 11/30/18 STATUS: SIVAN REQ #: [id number] THOMPSON: 11/30/[address]: Long Person MD ENTERED: 12/05/18 SP TYPE: SURG SPEC OTHR DR: Shakila Mayorga i, MD, John D DO Koons JR,Jami Yang MD, MDORDERED: GM LEVEL 4 CODES: [id number] - COLON, NOS O35976 - V ULVA, NOS [place]IES TO: [place] [address] [place], [place] [id number] Jordy Gambino DO [address] [facility] [address] [place], [place] [id number] Terrence Bourgeois JR, MD [address] [facility] [place] [address] [facility], [place] [id number] Jami Blas MD [address] [place] [address] [address] [place], [place] [address] Joycelyn Person MD [address] [facility] [address] [place] [address] [email or web address] PROCEDURES: GM LEVEL 4 (Incomplete) TISSUES: 1. VULVA, NOS - V ulva, deep margin, excision 2. COLON, NOS - Colostomy 3. VULVA, NOS - Vulva, post vagi wall, anal rectal, sig * * CONTINUED ON NEXT PAGE RUN DATE: 12/06/18 [facility] jacobs [facility] *LIVE* PAGE 2 RUN TIME: 0745 Specimen Inquiry RUN USER: INTERFACE SPEC #: [id number] PATIENT: HEIDI STEINER #[id number] (Continued)-------- ---- FINAL DIAGNOSIS Vulva, deep margin, [...] ON N EXT PAGE RUN DATE: 12/06/18 [facility] *LIVE* PAGE 3 RUN TIME: 45 Sp nick Inquiry RUN USER: INTERFACE SPEC #: [id number] PATIENT: Atul HEIDI FINLEY #[id number] (Continued) GROSS AND MICROSCOPIC (Continued) squamous cell [...] SURGICAL SPECIMENS 2018-12-06 07:45:00 RUN DATE: 12/07/18 [employer] *LIVE* PAGE 1 RUN TIME: 814 Specimen Inqui ry RUN USER: INTERFACE PATIENT: HEIDI STEINER ACCT #: G [id number] LOC: [facility] U #: [id number] AGE/SX: 58/F ROOM: [facility] RE11/29/18REG DR: Long Person : 56 BED: 1 DIS: STATUS: ADM IN TLOC: SPEC #: [id number] RECD: 11/30/18 STATUS: SIVAN REQ #: [id number] THOMPSON: 11/30/[address]: Long Person MD ENTERED: 12/05/18 SP TYPE: SURG SPEC OTHR DR: Shakila Mayorga i, MD, John D DO Koons JR, Patrick MD Pustilnik, Terri B MDORDERED: GM LEVEL 4 CODES: [id number] - COLON, NOS T86207 - V ULVA, NOS [place]IES [place]: [place] [address] [place], [place] [id number] Jordy Gambino DO [address] [facility] [address] [place] [address] Terrence Bourgoeis JR, MD [address] [facility] [place] [address] [place] [address] Jami Blas MD [address] [place], [place] [id number] Joycelyn Person MD [address] [facility] [address] [place] [address] [email or web address] PROCEDURES: GM LEVEL 4 (Incomplete) TISSUES: 1. VULVA, NOS - V ulva, deep margin, excision 2. COLON, NOS - Colostomy 3. VULVA, NOS - Vulva, post vagi wall, anal rectal, sig * * CONTINUED ON NEXT PAGE RUN DATE: 12/07/18 [facility] *LIVE* PAGE 2 RUN TIME: 0815 Specimen Inquiry RUN USER: INTERFACE SPEC #: [id number] PATIENT: HEIDI STEINER #[id number] (Continued)-------- ---- ADDENDUM FINDINGS Addendum #1 Entered: [...] Identified. *Lymph Nodes: 0/14. Pathologic Staging (pTNM): [id number] Addendum Signed SIGNATURE ON FILE Christie Sylvester [...] CONTINUED ON NEXT PAGE RUN DATE: 12/07/18 [facility] *LIVE* PAGE 3 RUN TIME: 814 Specimen Inquiry RUN USER: INTERFACE SPEC #: [id number] PATIENT: HEIDI STEINER #[id number] (Continued)------ ------ GROSS AND MICROSCOPIC (Continued) Specimen [...] *Екатерина CONTINUED ON NEXT PAGE RUN DATE: [facility] *LIVE* PAGE 4 R UN TIME: 814 Specimen Inquiry RUN USER: INTERFACE ----- -------SPEC #: [id number] PATIENT: HEIDI STEINER #[id number] (Continued) Signed SIGNATURE ON FILE Christie Sylvester MD 12/06/18 0745 END OF REPORT [id number] 07:27:00* Test Item Value Reference Range Interpretation Comments CORTISOL (test code = CORTR) 15.3 ug/dL () Cortisol AM 6.2 - 19.4 Cortisol PM 2.3 - 11.9Performed At: Lab[address] [id number] Josiah Woodard MD Ph:[phone] BASIC METABOLIC [id number] 11:53:00* Test Item Value Reference Range Interpretation [...] code = CA) 8.0 mg/dL 8.0-10.5 N [id number] 11:53:00* Test Item Value Reference Range Interpretation Comments MAGNESIUM (test code = MAG) 1.30 mg/dL 1.8-2.4 L T4 [id number] 20:15:00* Test Item Value Reference Range Interpretation Comments T4 FREE (test code = T4F) 0.9 ng/dL 0.77-1.61 N THYROID STIMULATING [id number] 20:15:00* Test Item Value Reference Range Interpretation Comments THYROID STIMULATING HORMONE (test code = TSH) 2.11 0.42-5.4 7 N Results in moni- International Units/mL CBC W/AUTO [id number] 10:53:00* Test Item Value Reference Range Interpretation [...] REVIEWED, CONSISTENT WITH AUTO DIFF. CBC W/AUTO [id number] 07:58:00* Test Item Value Reference Range Interpretation [...] REQUIRED (test code = MDIFF) BASIC METABOLIC [id number] 10:41:00* Test Item Value Reference Range Interpretation [...] code = CA) 8.8 mg/dL 8.0-10.5 N [id number] 10:41:00* Test Item Value Reference Range Interpretation Comments PHOSPHOROUS (test code = PHOS) 3.5 mg/dL 2.5-4.9 N [id number] 10:41:00* Test Item Value Reference Range Interpretation Comments MAGNESIUM (test code = MAG) 1.40 mg/dL 1.8-2.4 L CALCIUM [id number] 10:41:00* Test Item Value Reference Range Interpretation Comments CALCIUM IONIZED (test code = CONNIE) 1.26 MMOL/L 1.12-1.32 N BASIC METABOLIC [id number] 10:30:00* Test Item Value Reference Range Interpretation [...] CALCIUM (test code = CA) mg/dL 8.0-10.5 [id number] 10:30:00* Test Item Value Reference Range Interpretation Comments PHOSPHOROUS (test code = PHOS) mg/dL 2.5-4.9 [id number] 10:30:00* Test Item Value Reference Range Interpretation Comments MAGNESIUM (test code = MAG) mg/dL 1.8-2.4 CALCIUM [id number] 10:30:00* Test Item Value Reference Range Interpretation Comments CALCIUM IONIZED (test code = CONNIE) 1.26 MMOL/L 1.12-1.32 N HGB [id number] 10:26:00* Test Item Value Reference Range Interpretation Comments HEMOGLOBIN (test code = HGB) 9.2 g/dL 11.0-15.0 L HEMATOCRIT (test code = HCT) 28.8 % 33.0-45.0 L CBC W/AUTO [id number] 16:43:00* Test Item Value Reference Range Interpretation [...] (test code = MDIFF) NO BASIC METABOLIC [id number] 16:39:00* Test Item Value Reference Range Interpretation [...] = CA) 10.5 mg/dL 8.0-10.5 N PROTHROMBIN [id number] 16:35:00* Test Item Value Reference Range Interpretation [...] Infarction (to prevent recurrent infarct). THROMBOPLASTIN TIME [id number] 16:35:00* Test Item Value Reference Range Interpretation Comments THROMBOPLASTIN TIME PARTIAL (test code = PTT) 29.0 Seconds 25.0-39. 5 N Therapeutic Range: 61.8-83.8 Sec Effective 11/13/2013 - XR CHEST 2 [id number] 16:06:00 FAX: Jordy Martinez DO [phone] [place]: St: PRE FAX: Jami Banuelos [phone] FAX: Dwayne Millan [phone] Name: HEIDI STEINER [facility] : 1960 Age/S: 58/F [address] [place] [address] Unit #: [id number] Loc: [place] [address] Phys: Jami Blas MD Acct: [id number] Dis Date: Status: PRE SDC PH ONE #: [phone] Exam Date: 11/26/2018 1600 FAX #: [phone] Reason: PREOP EXAMS: CPT CODE: [id number] XR CHEST 2 V 27388 2 VIEW RADIOGR APHS OF THE CHEST [...] process. There is stable pulmonary hyperinflation. at 1607 Reported and signed by: Gerald Cote D.O. CC: Jordy Gambino DO; Jami bauer MD; Joycelyn Person MD Technologist: Wendi Larose, RT(R) Trnscrd Date/Time/By: 11/26/2018 (3586) : By: [email or web address] Orig Print D/T: S: 11/26/2018 (5813) PAGE 1 Signed Report
[2020-03-04 03:06] LABS: BACTERIA,URINE MANY /HPF; EPITHELIAL CELLS,URINE FEW /LPF; RBC,URINE >50 /HPF (0-5); WBC,URINE (MAN) >50 /HPF (0-5)
--- NOTE | 2020-03-04 04:12 | NUR ---
Patient moved on to hospital bed at this time.
[2020-03-04] MEDS ORDERED: HYDROCODONE/APAP 5MG-325MG TAB PO PRN (04:15)
--- NOTE | 2020-03-04 04:15 | NUR ---
FOAM WEDGE PLACED UNDER PT'S LT SIDE TO RELIEVE PRESSURE TO SACRUM. PT REPORTS RELIEF. NAD NOTED AT THIS TIME.
[2020-03-04] MEDS ORDERED: ONDANSETRON HCL INJ 2MG/ML 2ML 2 MG/ML VIAL IV PRN (04:45)
[2020-03-04] MEDS: ONDANSETRON HCL INJ 2MG/ML 2ML 2 MG/ML VIAL IV PRN ×3 (04:46→21:39)
[2020-03-04] MEDS ORDERED: ACETAMINOPHEN 325 MG/10 ML UDC PEG ONE (05:15)
[2020-03-04] MEDS ORDERED: SODIUM CHLORIDE 0.9% 1000ML 1,000 ML IV STA ×2 (05:31→06:23)
[2020-03-04] MEDS ORDERED: SODIUM CHLORIDE 0.9% 1000ML 1,000 ML ONE (05:38)
--- NOTE | 2020-03-04 06:11 | NUR ---
ER MD AND PRIMARY RN NOTIFIED AND AWARE OF CRITICAL LAB VALUE, LACTIC ACID 2.6.
[2020-03-04 06:18] LABS: BASOPHILS # (AUTO) 0.1 (0.0-0.1); BASOPHILS % 0.3 % (0.0-1.0); EOSINOPHILS % 0.1 % (0.0-6.0); HEMATOCRIT 26.4 % (34.2-44.1); HEMOGLOBIN 8.2 g/dL (12.0-16.0); LYMPHOCYTES # (AUTO) 0.4 (1.0-3.2); LYMPHOCYTES % 2.3 % (18.0-39.1); MEAN CORPUSCULAR HGB CONC 31.1 g/dL (31-35); MEAN CORPUSCULAR VOLUME 103.1 fL (81-99); MONOCYTES # (AUTO) 0.9 (0.2-0.8); NEUTROPHILS # (AUTO) 16.5 (2.1-6.9); PLATELET COUNT 295 x10e3/uL (140-360); RED BLOOD COUNT 2.56 x10e6/uL (3.6-5.1); RED CELL DISTRIBUTION WIDTH 16.3 % (11.7-14.4)
--- NOTE | 2020-03-04 06:20 | NUR ---
Patient noted to have a large amount of blood from perianal area. MD notifed. Patient repacked with new 4x4's and new brief applied.
--- NOTE | 2020-03-04 06:40 | NUR ---
Consent for blood transfusion and central line placement obtained at this time.
[2020-03-04] MEDS ORDERED: SODIUM CHLORIDE 0.9% 250ML 250 ML IV ONE (06:45)
[2020-03-04] MEDS ORDERED: NOREPINEPHRINE INJ 4MG/4ML 8 MG in DEXTROSE 5% 250ML 250 ML IV PRN (07:15)
--- NOTE | 2020-03-04 07:28 | NUR ---
Report to BRUNILDA Suero
--- NOTE | 2020-03-04 07:41 | NUR ---
Incontinence care provided for patient. Patient provided with clean adult brief. Patient does not want to change into a hospital gown at this time.
[2020-03-04 07:48] LABS: ANISOCYTOSIS SLIGHT; LYMPHOCYTES % (MANUAL) 1 % (19-48); MONOCYTES % (MANUAL) 4 % (3.4-9.0); NEUTROPHILS % (MANUAL) 95 % (40-74); PLATELET ESTIMATE ADEQUATE; RBC MORPHOLOGY COMMENT NORMAL
[2020-03-04 07:50] LABS: PLATELET MORPHOLOGY COMMENT FEW EDTA CLUMPING
--- NOTE | 2020-03-04 08:03 | NUR ---
Levophed started at 5 mcg/min.
--- NOTE | 2020-03-04 08:06 | NUR ---
Dr. Bolden (general surgery) at bedside.
--- NOTE | 2020-03-04 08:17 | NUR ---
Call placed for consult to Dr. Matute
[2020-03-04] MEDS: MORPHINE SULFATE INJ 4 MG/ML INJ 1ML IV PRN ×2 (09:15→21:39)
--- NOTE | 2020-03-04 09:35 | NUR ---
Wedge placed under patient per her request to relieve pressure on buttocks.
--- NOTE | 2020-03-04 09:41 | NUR ---
First unit of PRBC'S started at 0930. Blood verified with Kervin PERRY. Blood consent signed and blood product requisition filled out.
--- NOTE | 2020-03-04 10:05 | NUR ---
Patient Levophed increased to 10 mcg/min.
--- NOTE | 2020-03-04 10:08 | NUR ---
Dr. Sandoval at bedside.
--- NOTE | 2020-03-04 10:11 | Diagnostic Imaging Report ---
X-ray chest AP portable History: Central line placement Comparison: None Findings: A right IJ route central venous catheter is noted with the tip overlying the SVC. This is considered to be in acceptable position. There is no pneumothorax. There is no pleural effusion. There is a left subclavian Port-A-Cath catheter with the tip overlying infra azygos SVC. The patient is rotated on this image. The heart size is borderline normal. Aorta is unremarkable. Other mediastinal silhouettes are difficult to comment on. Lungs appear slightly hyperinflated. Correlation with clinical history. Vague nodular opacities in the right lung mid zone and lower zone. Please perform a PA and lateral chest x-ray when possible. Surgical tez and upper abdomen. Degenerative changes of the skeletal system. Impression: Right IJ central line apparently in a good position. Signed by: Reza Blackwood MD on 03/04/2020 10:08 AM
[2020-03-04] MEDS ORDERED: ACETAMINOPHEN 325 MG/10 ML UDC PEG PRN (12:30)
--- NOTE | 2020-03-04 12:35 | NUR ---
WOUND CARE CONSULT FOR 59 YO FEMALE BLEEDING POST VULVECTOMY SITE DR BECKMAN COMUNICATED WITH REGARDING PATIENT PLAN SURGICAL CONSULT MADE AND PACKING IN PLACE DUE TO BLEEDING WHEN MANIPULATED WOUND CARE TO BE RECONSULTED IF FURTHER POST SURGICAL NEED EXIST Addendum: 03/04/20 at 1240 by Jamison Danielle RN Amended: Links added.
[2020-03-04] MEDS: SUCRALFATE 1 GM TAB PEG SCH ×3 (14:00→21:12)
--- NOTE | 2020-03-04 14:23 | NUR ---
Incontinence care provided for patient
[2020-03-04] MEDS: FAMOTIDINE 20 MG/2 ML VIAL IV SCH (14:27)
[2020-03-04 14:42] LABS: HEMATOCRIT 32.6 % (34.2-44.1); HEMOGLOBIN 10.5 g/dL (12.0-16.0)
[2020-03-04] MEDS: GABAPENTIN 100 MG CAP PEG SCH ×2 (15:00→21:12)
[2020-03-04] MEDS: OXYBUTYNIN CHLORIDE 5 MG TAB PEG SCH ×2 (15:00→21:12)
[2020-03-04] MEDS: CALCIUM CARBONATE 500 MG CHEWABLE TABS PEG SCH ×2 (15:00→21:12)
[2020-03-04] MEDS ORDERED: SODIUM CHLORIDE 0.9% 250ML 0 ML ONE (15:01)
--- NOTE | 2020-03-04 15:12 | NUR ---
Patients levophed decreased to 5mcg/min.
--- NOTE | 2020-03-04 15:17 | NUR ---
Spoke with Emely ROBERTO regarding patients increased h&h. Was told to hold remaining units of PRBC'S since patients h&h is at an acceptable range.
--- NOTE | 2020-03-04 15:24 | Consultation ---
DATE OF CONSULTATION: 03/04/2020 CHIEF COMPLAINT: Perineal bleeding. HISTORY OF PRESENT ILLNESS: This patient is a 59-year-old female known to me from recent hospitalizations for nausea and vomiting, and findings is suggestive of esophageal perforation. The patient underwent placement of a gastrostomy tube for nutritional support. The patient has been doing well until a few days ago when she started passing clots from perineal wound from prior vulvar cancer resection in the recent past. PAST MEDICAL HISTORY: As mentioned is positive for a vulvar cancer, treated with radical resection and radiation chemotherapy. PAST SURGICAL HISTORY: Including diverting left colostomy, gastric bypass surgery with revisions and recent gastrostomy tube placement for tube feeding. ALLERGIES: SHE HAS NO DRUG ALLERGIES. SOCIAL HABITS: The patient denies current smoking or alcohol abuse. REVIEW OF SYSTEMS: She denies chest pain, shortness of breath, fever, or cough. PHYSICAL EXAMINATION: VITAL SIGNS: Stable. She is afebrile. GENERAL: The patient is awake, alert, in no apparent distress. HEENT: Sclerae nonicteric. NECK: Supple. LUNGS: Clear. HEART: Regular rate and rhythm. ABDOMEN: Soft. G-tube in place. : Perineal exam revealed deep perineal wound from prior vulvectomy with some clots noted. No active bleeding. LABORATORY DATA: Her hemoglobin is 8, white cell count is 18, and platelet count is 295. Creatinine is 0.[address] abdomen and pelvis revealed condition status post vulvectomy with no pelvic or perineal hematoma or collection. ASSESSMENT: Perineal bleeding, likely from prior operative field post vulvectomy. No perineal or pelvic collection noted on CT. PLAN: Transfusions of packed red blood cell. CT angiogram to rule out active bleeding. Management depending on finding on CT angiogram. Faisal Bolden MD DNYamilet/MODYamilet /[id number]
--- NOTE | 2020-03-04 15:50 | NUR ---
perianal care provided for patient.
--- NOTE | 2020-03-04 15:54 | Consultation ---
DATE OF CONSULTATION: Pulmonary Critical Care Consultation CHIEF COMPLAINT: Hematuria and low blood pressure. HISTORY OF PRESENT ILLNESS: The patient is a 59-year-old woman. She has a history of vulvar cancer that required resection. She also has a stage IV decubitus ulcer in the perineum. She has problems with recurrent urinary tract infections. She was recently hospitalized at [facility] several weeks ago with hypotension and urinary tract infection related to vancomycin-resistant Enterococcus and E. coli in the urine. She also had a pneumomediastinum at that time that was of unclear etiology. She required a feeding tube placed by Interventional Radiology as well as a suprapubic catheter. The patient was discharged about a week ago, but now returns with some hematuria. She notes that she passed some clots. She denies any fevers. She did not have pain. When she arrived in the ER, she had a low blood pressure and required some intravenous volume. PAST SURGICAL HISTORY: 1. Status post cholecystectomy. 2. Status post gastric bypass. 3. Status post vulvectomy. 4. Status post jejunal feeding tube placed by Radiology. 5. Status post diverting colostomy. PAST MEDICAL HISTORY: 1. Pulmonary emboli. 2. Recurrent urinary tract infections. 3. Chronic hydronephrosis. 4. Vulvar cancer. SOCIAL HISTORY: The patient is not an active smoker. She is not a drinker. FAMILY HISTORY: There is history of diabetes and cancer. REVIEW OF SYSTEMS: The patient denies any fever or headaches. She is not having any neck pain. She has no chest pain. She denies dyspnea or cough. She does not have any abdominal pain. She has no nausea or vomiting. She does have a suprapubic catheter in place. She has some hematuria as well. PHYSICAL EXAMINATION: VITAL SIGNS: The blood pressure is 135/87 and the saturation is 99%. HEENT: Shows no facial swelling or erythema. CARDIAC: Reveals regular rate and rhythm with normal S1 and S2. LUNGS: Auscultation of lungs reveals clear breath sounds bilaterally. There is no wheezing. ABDOMEN: Soft and nontender. There is no rebound or guarding. EXTREMITIES: Shows no leg edema or calf tenderness. : There is a decubitus ulcer in the perineum. The patient also has a suprapubic catheter. LABORATORY DATA: Hemoglobin is 10.5 and the white blood cell count is 18. The MCV is 103. The platelet count is 295. BUN to creatinine ratio is normal. Carbon dioxide is 20. There is no anion gap. Albumin is 2.3. RADIOGRAPHIC DATA: Chest x-ray shows no acute disease. There is a right IJ line in good position. The CT scan of the abdomen and pelvis shows a Manuela-en-Y gastric bypass without evidence of obstruction. There is some pneumomediastinum, although it is decreased from previously. There is a suprapubic catheter as well. There is also some moderate right and minimal left hydronephrosis. IMPRESSION: 1. Anemia secondary to acute blood loss. 2. Hematuria. 3. Recurrent urinary tract infections. 4. Decubitus ulcer in the perineum. 5. History of vulvar cancer. 6. Chronic hydronephrosis. PLAN: 1. The patient is now hemodynamically stable and does not require additional pressors or fluids. 2. Continue to monitor blood counts. 3. Antibiotics with appropriate coverage for her prior vancomycin-resistant Enterococcus. She will also need contact isolation. 4. Infectious Disease consultation. 5. Continue enteral feedings. Sherwin Cardona MD LM/HAMLETL /[id number]
--- NOTE | 2020-03-04 15:56 | NUR ---
CM REC'D CALL FROM DR BECKMAN REGARDING PT/FAMILY REFUSING TRANSFER TO [facility] CM MET WITH PT AND SHE WILL NOT TRANSFER TO [facility] DUE TO A "BAD EXPERIENCE IN THE PAST" PT STATES SHE WILL TRANSFER TO [facility] IF NECESSARY CM CALLED DR BECKMAN AND RELAYED THIS MESSAGE DR BECKMAN SAYS PT WILL STAY HERE AND HIS TOOL SUPERVISOR LEXI WILL CALL WITH ORDER TO CONSULT DR WERNER IF DR WERNER FEELS PT SHOULD BE TRANSFERED THEN WE WILL INITIATE TRANSFER AT THAT TIME UPDATED ER CHARGE NURSE, ANITA
--- NOTE | 2020-03-04 15:57 | NUR ---
senior center manager at bedside. Per Dr. Bassett patient is to remain at [facility] until the morning for further assessment by additional MD.
[2020-03-04] MEDS: LINEZOLID 600 MG/D5W 300ML 300 ML IV SCH (18:03)
--- NOTE | 2020-03-04 20:15 | Consultation ---
DATE OF CONSULTATION: HISTORY OF PRESENT ILLNESS: A 59-year-old female patient, history of vulvar cancer, status post radical resection, radiation chemotherapy and left diverting colostomy for chronic sacral ulcer and gastric bypass surgery with a revision and a recent gastrostomy tube placement for tube feeding, admitted with perineal bleeding, hematuria, and hypotension. The patient has chronic nonhealing sacral pressure ulcer for more than a year. She is awake, alert, oriented, thin, cachectic. PAST MEDICAL HISTORY: Pulmonary embolism, chronic hydronephrosis, and vulvar cancer. PAST SURGICAL HISTORY: Cholecystectomy, gastric bypass, vulvectomy, status post jejunal feeding tube placed, and status post diverting colostomy. PERSONAL HISTORY: Denies smoking or alcohol. MEDICATIONS: Oxybutynin 5 mg t.i.d. via through PEG, gabapentin 100 mg t.i.d., 100 mg daily, folic acid 1 mg daily, zinc sulfate 220 mg daily, and meropenem IV. ALLERGIES: NONE. PHYSICAL EXAMINATION: VITAL SIGNS: Height 67 inches, weight 211 pounds, blood pressure 126/70, and pulse 89. HEENT: Normal. NECK: No JVD. Thin, cachectic. LUNGS: Diminished at the base. CVS: Normal. ABDOMEN: Soft. Jejunostomy tube in place and colostomy in place. Suprapubic catheter noted. Slight redness around suprapubic catheter noted. EXTREMITIES: Lower extremities, no edema. SKIN: Sacral area, the patient has 3 ulcers, one in the coccyx and both sacrum. Right sacral area measures 3.5 x 4 cm, 100% necrotic. Bone exposed and undermining present for 0.5 cm between 12 and 2 o'clock position. Coccyx wound measures 5 x 1 cm x 0.2 cm approximately. Granulated bone exposed. Left sacrum wound, stage IV, bone exposed with 80% slough. 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 PLAN: We will keep on Santyl, Hydrogel, 4x4, and tape to the sacral ulcers. Offload. Thank you for consultation. We will follow up. Talisha Randhawa MD TG/HAMLETL /[id number]
[2020-03-04] MEDS ORDERED: FAMOTIDINE 20 MG TAB PEG SCH (21:00)
[2020-03-04] MEDS: MEROPENEM 500MG/ NS 50ML 50 ML IV SCH (21:12)
--- NOTE | 2020-03-04 21:55 | Consultation ---
DATE OF CONSULTATION: REASON FOR CONSULTATION: Decubitus ulcer. HISTORY OF PRESENT ILLNESS: This patient is a 59-year-old white female, who has history of valvular cancer, required resection. She has a history of stage IV decubitus ulcer in the perineum. She has history of bacteriuria, history of UTI. She was here in the hospital with sepsis and shock. She had VRE and E coli in the urine. She had pneumomediastinum. At that time, the patient had been on feeding tube. The patient was discharged a week ago or so. She is coming with hematuria. The patient is being admitted. PAST MEDICAL HISTORY: The patient is status post cholecystectomy, gastric bypass, vulvectomy, jejunal feeding tube placed by Radiology, diverting colostomy, history of pulmonary embolism, history of UTI, chronic hydronephrosis, valvular cancer. SOCIAL HISTORY: There is no smoking, drug abuse, or alcohol abuse. FAMILY HISTORY: Hypertension and diabetes. REVIEW OF SYSTEMS: Really not a good source of information. At the present time, she is just weak. No fever. No chills. The patient came. She was seen by Surgery. The patient was noted to have a perianal bleeding. She had been seen by Pulmonary. I was asked to see her and make recommendations to her antibiotics. Her blood cultures and urine cultures still pending. When she first came, her white count was 21.6 with hemoglobin of 10.5, hematocrit 33, and platelets of 359. Sodium 133, potassium 4.3 with creatinine 0.50. She was here in the hospital. She was discharged back on February 23. The patient's notes were reviewed. Her blood cultures have been negative on February 11 and on February 07, she had E coli in the blood, sensitivity pattern reviewed. PHYSICAL EXAMINATION: GENERAL: She is alert, does not seem to be in acute distress. VITAL SIGNS: Stable, currently afebrile. HEENT: She is not icteric. NECK: Supple. CHEST: Few crackles. COR: S1 and S2. No S3, S4, or murmur. ABDOMEN: Soft. The patient is status post Manuela-en-Y gastric bypass with no obstruction, decreased trace lower pneumomediastinum, suprapubic catheter. IMPRESSION: 1. Altered mental status, leukocytosis present on admission, concern about sepsis, urinary tract infection versus decubitus ulcer versus other. Obtain blood cultures. Urine cultures done. We will put her on meropenem and Zyvox. Recheck CBC. Recheck Chem panel. 2. Anemia of chronic disease. 3. History of gastric bypass. 4. History of jejunal tube feeding. History of pulmonary embolism. 5. History of hydronephrosis. 6. History of vulvar cancer. We will follow with you. MD GAVIN Mixon/SULMA /[id number]
[2020-03-04] MEDS ORDERED: MEROPENEM 500MG 500 MG in SODIUM CHLORIDE 0.9% 50ML 50 ML IV SCH (22:00)
[2020-03-04] MEDS ORDERED: MIDODRINE 2.5 MG TAB PO ONE (22:15)
[2020-03-04] MEDS ORDERED: ALBUMIN 25% 12.5GM 0.25 GM/ML BTL IV ONE (23:00)
[2020-03-04] MEDS: HYDROCODONE/APAP 5MG-325MG TAB PEG PRN (23:55)
[2020-03-05] VITALS (27 sets, daily range): BP systolic 75–124; BP diastolic 43–88
[2020-03-05] MEDS: MORPHINE SULFATE INJ 4 MG/ML INJ 1ML IV PRN ×3 (02:25→12:32)
[2020-03-05] MEDS: FAMOTIDINE 20 MG/2 ML VIAL IV SCH ×2 (02:25→12:15)
[2020-03-05] MEDS: ONDANSETRON HCL INJ 2MG/ML 2ML 2 MG/ML VIAL IV PRN ×2 (02:25→12:32)
--- NOTE | 2020-03-05 03:47 | Consultation ---
DATE OF CONSULTATION: HISTORY OF PRESENT ILLNESS: Thank you very much for asking me to see this 59-year-old, 5, para 5, who had history of vulvar cancer in July 2018. She came in today with excessive vaginal bleeding from the vulvar and perianal area and was sent to the hospital. Her history started in 2018 with vulvar cancer had surgery, chemotherapy and radiation with . Cancer was spread already to the rectum and anal area where the colorectal surgeon Dr. Joycelyn Person had performed removal of the distal part of the colon and did a colostomy. She has been in and out of the hospital several times. In fact, she said that she never been at home for the last two years, more than two months total. She was here in the hospital about 3 weeks ago with history of bleeding and sepsis, had suprapubic catheter and also gastric feeding tube. PAST MEDICAL HISTORY: Otherwise is none of significance. PAST SURGICAL HISTORY: section, bariatric surgery, gastric bypass, and the above mentioned procedures. ALLERGIES: NO KNOWN DRUG ALLERGIES. MEDICATIONS: See the list. SOCIAL HISTORY: Denies smoking, alcohol, or drug abuse. PHYSICAL EXAMINATION: VITAL SIGNS: Shows evidence of hypotension. ABDOMEN: Soft, nontender, showing the colostomy and gastric feeding tube. Perianal exam was difficult in the ER, but shows mild bleeding at this stage. ASSESSMENT AND PLAN: A 59-year-old 5, para 5, with evidence of urinary tract infection, sepsis, vulvar bleeding, pneumomediastinum mild, and pneumoperitoneum. The patient is on Levophed, but very coherent and has reasonable historian. Muscle wasting and inability to walk since 12/05/2017 since her surgery with and Dr. Person. I would recommend that at this stage transferring the patient to an ICU Unit under the supervision of and Dr. Person, who I did talk to and they both agree to follow up on her. Also, I spoke to and he is happy to accept her at [facility]. The patient understands that for the higher care, I would recommend and send her for higher level of medical care and Dr. Ramirez has been informed. Please do not hesitate to call me if I can be of any further help in the future. Radha Sandoval MD DD/HAMLETL /[id number] cc: Dr. Ramirez
[2020-03-05 06:18] LABS: ALANINE AMINOTRANSFERASE 6 IU/L (0-55); ALBUMIN 2.7 g/dL (3.5-5.0); ALBUMIN/GLOBULIN RATIO 0.9 (0.8-2.0); ALKALINE PHOSPHATASE 49 IU/L (40-150); ANION GAP 11.9 mmol/L (8-16); BLOOD UREA NITROGEN 5 mg/dL (7-26); BUN/CREATININE RATIO 11 (6-25); CALCIUM 8.8 mg/dL (8.4-10.2); CARBON DIOXIDE 23 mmol/L (22-29); CHLORIDE 108 mmol/L (98-107); CREATININE, SERUM 0.46 mg/dL (0.57-1.11); EST GLOMERULAR FILTRATION RATE > 60 ML/MIN (60-); GLUCOSE 74 mg/dL (74-118); MAGNESIUM 1.2 MG/DL (1.3-2.1); SODIUM 140 mmol/L (136-145)
[2020-03-05 06:22] LABS: POTASSIUM 2.9 mmol/L (3.5-5.1)
[2020-03-05] MEDS: LINEZOLID 600 MG/D5W 300ML 300 ML IV SCH ×2 (06:26→17:13)
[2020-03-05] MEDS: MEROPENEM 500MG/ NS 50ML 50 ML IV SCH ×3 (06:26→23:15)
[2020-03-05 07:01] LABS: BASOPHILS # (AUTO) 0.1 (0.0-0.1); BASOPHILS % 0.4 % (0.0-1.0); EOSINOPHILS # (AUTO) 0.3 (0.0-0.4); EOSINOPHILS % 2.2 % (0.0-6.0); HEMATOCRIT 25.3 % (34.2-44.1); HEMOGLOBIN 8.1 g/dL (12.0-16.0); LYMPHOCYTES # (AUTO) 1.5 (1.0-3.2); LYMPHOCYTES % 10.7 % (18.0-39.1); MEAN CORPUSCULAR HEMOGLOBIN 31.3 pg (28-32); MEAN CORPUSCULAR VOLUME 97.7 fL (81-99); MONOCYTES # (AUTO) 1.4 (0.2-0.8); NEUTROPHILS # (AUTO) 10.8 (2.1-6.9); NEUTROPHILS % 75.9 % (38.7-80.0); PLATELET COUNT 290 x10e3/uL (140-360); RED BLOOD COUNT 2.59 x10e6/uL (3.6-5.1); RED CELL DISTRIBUTION WIDTH 17.6 % (11.7-14.4)
[2020-03-05] MEDS ORDERED: POTASSIUM CHLORIDE 20 MEQ TAB CR PO ONE ×2 (07:15→11:00)
[2020-03-05] MEDS: MIDODRINE 2.5 MG TAB PO SCH ×3 (08:12→15:22)
[2020-03-05] MEDS: ZINC SULFATE 220 MG CAP PEG SCH (08:15)
[2020-03-05] MEDS: SUCRALFATE 1 GM TAB PEG SCH ×4 (08:15→23:50)
[2020-03-05] MEDS: OXYBUTYNIN CHLORIDE 5 MG TAB PEG SCH ×3 (08:15→23:15)
[2020-03-05] MEDS: FOLIC ACID 1 MG TAB PEG SCH (08:15)
[2020-03-05] MEDS: CALCIUM CARBONATE 500 MG CHEWABLE TABS PEG SCH ×3 (08:15→23:50)
[2020-03-05] MEDS: GABAPENTIN 100 MG CAP PEG SCH ×3 (08:15→23:15)
[2020-03-05] MEDS: SERTRALINE HCL 100 MG TAB PEG SCH (08:15)
[2020-03-05] MEDS: COLLAGENASE 5 GM TUBE TOP SCH (10:09)
--- NOTE | 2020-03-05 10:58 | Consultation ---
DATE OF CONSULTATION: 03/05/[address] Aron Bassett. HISTORY OF PRESENT ILLNESS: Ana Guzman is a 59-year-old female, referred to me for multitude of problems, which I will enumerate in my consultation. HISTORY OF PAST ILLNESS: History of cancer of the vulva, diagnosed in 2018. The patient did have radical surgery, systemic chemotherapy, and external beam radiation therapy. The patient had involvement of the rectum, subsequently Dr. Person had performed distal colon resection with a colostomy. She has been in and out of the hospitals throughout [place], presents with weakness, cachexia. SOCIAL HISTORY: Noncontributory. FAMILY HISTORY: Noncontributory. ALLERGIES: REPORTED NONE. MEDICATIONS: The patient at the present time on: 1. Cefepime. 2. Linezolid. 3. Meropenem. 4. Norepinephrine. 5. Zosyn. 6. Sodium chloride. 7. Vancomycin. 8. Tylenol. 9. Albumin. 10. Calcium carbonate. 11. Pepcid. 12. Folic acid through the PEG tube. 13. Gabapentin. 14. Hydrocodone. 15. Midodrine. 16. Ondansetron. 17. Ditropan. 18. Potassium. 19. Zoloft. 20. Carafate. REVIEW OF SYSTEMS: HEENT: Normal. CARDIAC: Normal. RESPIRATORY: Normal. GI: Gastrotomy tube, colostomy. : Cancer of the vulva in 2018. PHYSICAL EXAMINATION: GENERAL: A cachectic female. NECK: No adenopathy. HEART: Tachycardic. LUNGS: Clear. ABDOMEN: Soft. Gastrotomy and colostomy are seen. RECTAL: Vaginal examination deferred. CENTRAL NERVOUS SYSTEM: Could not be examined properly. LABORATORY DATA: Lab investigations of interest show a sodium of 133, potassium 4.1, chloride 100, CO2 of 20, BUN 9, and creatinine 0.5, lactic acid high at 2.6, calcium 9.6, bilirubin 0.5, SGOT 14, SGPT 8, alkaline phosphatase 74, total protein 7, albumin 2.3, globulin is 4.7. Hematology shows a hemoglobin of 10.5, hematocrit of 33.3, white count of 21,610, platelets are 359,000. IMAGING: Shows a CAT scan of the abdomen and pelvis shows status post Manuela-en-Y gastric bypass, there is pneumomediastinum, suprapubic catheter, mild hydronephrosis on both the sites. Chest x-ray is reported as jugular line on the right side. IMPRESSION: 1. Cancer of the vulva in 2018. 2. Involvement of the rectum. 3. Treated with surgery and chemotherapy and radiation. 4. Vaginal bleed. 5. Status of colostomy. 6. Status post suprapubic catheter. 7. Status post gastrotomy. 8. Anemia of chronic disease. 9. History of pulmonary emboli. 10. Bilateral hydronephrosis. 11. Sacral ulcers with osteomyelitis. 12. Pneumomediastinum, etiology unknown. 13. Perineal bleed. 14. Leukemoid reaction. 15. Hypokalemia. 16. Hypoproteinemia. 17. Hypoalbuminemia. 18. Status post gastric bypass. 19. Multiple admissions in the past. PLAN, COMMENTS, AND SUGGESTIONS: I suggest the supportive care. She is a hospice candidate. MD SUSAN Ellington/HAMLETL /[id number]
--- NOTE | 2020-03-05 13:18 | Progress Note ---
DATE: SUBJECTIVE: Ms. Guzman remains in the intensive care unit, comfortable. The patient who has history of valvular cancer in July 2018. She is here with vaginal bleed from the vulvar and perineal area. The patient had a valvular surgery, chemotherapy, and radiation. The patient has colorectal surgery by Dr. Joycelyn Person. She had removal of distal part of the colon with colostomy, multiple hospitalizations. The patient, who comes in with altered mental status and sepsis. Currently in intensive Care Unit. Her blood cultures have been negative for 24 hours. Her white count is down to 14. Her hemoglobin of 8. Her COVID-19 is still pending. Her sodium is 140, potassium 2.9, and creatinine 0.46. The patient who is currently on folic acid, Zoloft, Neurontin, meropenem, and linezolid. PHYSICAL EXAMINATION: GENERAL: The patient who is alert, but weak. VITAL SIGNS: Stable, afebrile. T-max has been 100.9. HEENT: Normocephalic. NECK: Supple. CHEST: Few crackles at the bases. COR: S1-S2. No S3, S4, or murmur. ABDOMEN: Soft. IMPRESSION: 1. Sepsis on admission, source is unclear, concerned about pneumonia versus urinary tract infection versus other. 2. Status post Manuela-en-Y. 3. Pneumomediastinum. 4. Prognosis remains poor. 5. Moderate right and minimal left hydronephrosis. 6. Hypokalemia. 7. Decubitus ulcer. The plan is to continue with the meropenem and Zyvox. Await for blood cultures. She is here with sepsis as mentioned above. Prognosis is poor. We will discuss with the medical team. MD GAVIN Mixon/SULMA /[id number]
[2020-03-05] MEDS ORDERED: MAGNESIUM SULF 1GRAM/DEXTROSE 100 ML IV ONE (13:30)
--- NOTE | 2020-03-05 14:43 | Progress Note ---
DATE: SUBJECTIVE: The patient was weaned off Levophed last night. She received some additional albumin. She was seen by Hematology/Oncology. They are recommending hospice. She does not have any fevers. PHYSICAL EXAMINATION: VITAL SIGNS: The blood pressure is 122/55 and the saturation is 100%. The heart rate is 54. HEENT: Shows no facial swelling or erythema. CARDIAC: Reveals regular rate and rhythm with normal S1 and S2. LUNGS: Auscultation of lungs reveals decreased breath sounds at the bases. There is no wheezing. ABDOMEN: Soft and nontender. There is no rebound or guarding. EXTREMITIES: Shows no leg edema or calf tenderness. There is a chronic decubitus ulcer in the perineal area. LABORATORY DATA: White blood cell count is 14.26, hemoglobin is 8.1, and the platelet count is 290. The BUN to creatinine ratio is 5 to 0.46 and the potassium is 2.9. Other electrolytes are within normal limits. Urinalysis shows greater than 100,000 gram-negative rods. IMPRESSION: 1. Severe sepsis, on admission secondary to urinary tract infection. 2. Vulvar cancer. 3. Decubitus ulcer in the perineum. 4. Anemia secondary to acute blood loss. 5. Chronic hydronephrosis. 6. Prior gastric bypass. 7. Resolving pneumomediastinum of unclear etiology. PLAN: 1. Complete IV antibiotics. 2. Wound care. 3. Continue to monitor blood counts. 4. Continue enteral feedings. 5. Transfer out of intensive care unit. Sherwin Cardona MD [facility]/SULMA /[id number]
--- NOTE | 2020-03-05 16:19 | NUR ---
Nutrition Intervention Note RD Recommendation(s) for Physician: - Recommend to continue Osmolite 1.2 @ goal rate of 60 mL/hr (provides 1728 kcal and 80 gm protein) - Water flush of 75 mL q 4hrs or water flush per MD - Recommend Abdirizak 1 packet BID to promote wound healing. - Recommend vitamin C and zinc sulfate to promote wound healing. Plan of Care: RD following, monitoring for tolerance and adequacy Nutrition reason for involvement: tube feeding consult from INSURANCE ASSISTANT RD Assessment (03/05/20) Pt is a 59 year old female admitted with severe sepsis and UTI. Pt has a feeding tube. Per previous admission in which pt was discharged on February 21, pt was receiving Osmolite tube feedings. Pt was unsure of her tube feed regimen at home. At time of visit, pt was receiving Osmolite 1.2 @ 20 mL/hr. No recent weight loss is evident from previous admission per weight history, but pt stated she had lost weight in the past 9-10 months and weighed 183 lbs. Pt currently has a weight of 111 lbs in chart; therefore, this would be considered significant weight loss. No N/V reported. Will continue to monitor. Principal Problems/Diagnoses: severe sepsis, UTI PMH: cholecystectomy, gastric bypass, vulvectomy, feeding tube, diverting colostomy, pulmonary embolism, history of UTI, chronic hydronephrosis, valvular cancer GI: flat, soft, nontender abdomen Skin: stage 4 sacral pressure ulcer Labs: (03/05) Na 140, K 2.9, Cl 108, BUN 5, Cr 0.46, Mg 1.2 Meds: meropenem, morphine, zofran, pepcid, carafate, folic acid, Tums, zinc sulfate, Ht: 67 inches Wt: 111 lbs BMI: 17.4 kg/m2 IBW: 135 lbs Malnutrition Evaluation (03/05/20) The patient meets criteria for unspecified SEVERE protein-calorie malnutrition. Energy intake: Unable to assess Weight loss: >20% in 9-10 months (Chronic) Fat loss: Severe (severe fat loss in tricep region and some orbital fat loss) Muscle loss: Severe (some temporal depletion, severe depletion in clavicle region and acromion process, and moderate/severe depletion in lower extremities) Supporting Evidence: Fluid accumulation: unable to evaluate Functional Status: unable to evaluate Nutrition Prescription (Diet Order): Osmolite 1.2 @ goal rate of 60 mL/hr and water flush of 75 mL q4hrs Estimated Nutritional Needs: 8654-8021 calories/day (30-35 kcal/kg CBW) 76-101 g protein/day (1.5-2 g pro/kg CBW) Diet Adequacy: pt will meet calorie and protein needs when tube feeding is at goal rate Tolerance: Tolerance pending Diet Education Needs Assessment: Diet education not indicated Nutrition Care Level: high Nutrition Diagnosis: Severe protein-kcal malnutrition related to chronic illness as evidenced by severe muscle and fat depletion and >20% weight loss in 9-10 months per pt report. Goal: Patient will meet 75-100% of estimated needs by follow up Progress: N/A Interventions: Tube feeding - Composition, Rate, Route, Liquid supplement, Multivitamin/mineral supplement therapy Monitoring/Evaluation: -Total energy intake, Total protein intake, Formula/Solution, Liquid supplement, Weight change Signed: Nikki Morrison RD, [place]
[2020-03-06] VITALS (16 sets, daily range): BP systolic 88–119; BP diastolic 54–73
[2020-03-06] MEDS: FAMOTIDINE 20 MG/2 ML VIAL IV SCH ×2 (02:30→12:32)
[2020-03-06] MEDS: LINEZOLID 600 MG/D5W 300ML 300 ML IV SCH (05:25)
[2020-03-06] MEDS: MEROPENEM 500MG/ NS 50ML 50 ML IV SCH (05:25)
[2020-03-06 06:17] LABS: BASOPHILS % 0.4 % (0.0-1.0); EOSINOPHILS # (AUTO) 0.5 (0.0-0.4); EOSINOPHILS % 5.8 % (0.0-6.0); HEMOGLOBIN 9.1 g/dL (12.0-16.0); LYMPHOCYTES # (AUTO) 1.5 (1.0-3.2); LYMPHOCYTES % 15.9 % (18.0-39.1); MEAN CORPUSCULAR HEMOGLOBIN 31.4 pg (28-32); MEAN CORPUSCULAR HGB CONC 31.4 g/dL (31-35); MONOCYTES % 10.8 % (4.4-11.3); NEUTROPHILS # (AUTO) 6.1 (2.1-6.9); NEUTROPHILS % 66.2 % (38.7-80.0); PLATELET COUNT 312 x10e3/uL (140-360); RED CELL DISTRIBUTION WIDTH 17.5 % (11.7-14.4)
[2020-03-06 06:37] LABS: ALANINE AMINOTRANSFERASE 6 IU/L (0-55); ALBUMIN 2.2 g/dL (3.5-5.0); ALBUMIN/GLOBULIN RATIO 0.7 (0.8-2.0); ALKALINE PHOSPHATASE 48 IU/L (40-150); ANION GAP 7.8 mmol/L (8-16); BLOOD UREA NITROGEN < 5 mg/dL (7-26); BUN/CREATININE RATIO 12 (6-25); CALCIUM 8.6 mg/dL (8.4-10.2); CARBON DIOXIDE 28 mmol/L (22-29); CHLORIDE 109 mmol/L (98-107); CREATININE, SERUM 0.43 mg/dL (0.57-1.11); EST GLOMERULAR FILTRATION RATE > 60 ML/MIN (60-); GLUCOSE 89 mg/dL (74-118); MAGNESIUM 1.4 MG/DL (1.3-2.1); POTASSIUM 3.8 mmol/L (3.5-5.1); SODIUM 141 mmol/L (136-145)
[2020-03-06] MEDS: MIDODRINE 2.5 MG TAB PO SCH ×2 (08:15→12:17)
--- NOTE | 2020-03-06 08:46 | NUR ---
Called pt's daughter Jeff Guzman [phone] to follow up on hospice. She's opened to hospice with [facility]. Will be meeting with Leah today to discuss further. Signed choice letter placed in front of chart. Clinicals faxed to [facility] at [phone].
[2020-03-06] MEDS: HYDROCODONE/APAP 5MG-325MG TAB PEG PRN (09:09)
[2020-03-06] MEDS: OXYBUTYNIN CHLORIDE 5 MG TAB PEG SCH ×2 (09:10→16:48)
[2020-03-06] MEDS: SERTRALINE HCL 100 MG TAB PEG SCH (09:10)
[2020-03-06] MEDS: GABAPENTIN 100 MG CAP PEG SCH ×2 (09:10→16:48)
[2020-03-06] MEDS: FOLIC ACID 1 MG TAB PEG SCH (10:30)
[2020-03-06] MEDS: CALCIUM CARBONATE 500 MG CHEWABLE TABS PEG SCH ×2 (10:30→16:48)
[2020-03-06] MEDS: ZINC SULFATE 220 MG CAP PEG SCH (10:30)
[2020-03-06] MEDS: COLLAGENASE 5 GM TUBE TOP SCH (10:35)
[2020-03-06] MEDS: SUCRALFATE 1 GM TAB PEG SCH ×2 (10:35→13:44)
--- NOTE | 2020-03-06 11:45 | NUR ---
Spoke with Leah at [employer]. They ran benefits and pt is out of network with their company. She informed pt's daughter. CM also called pt's daughter Jeff. Gave choice for [facility]. Choice letter placed in chart. Referral faxed to [facility] at [phone]. ADRIANO called and spoke with Kaylah with [facility] and informed of referral.
[2020-03-06] MEDS ORDERED: MIDODRINE HCL 5 MG TABLET PO SCH ×2 (12:30→16:00)
[2020-03-06] MEDS ORDERED: Calcium Carbonate PO (12:59)
[2020-03-06] MEDS ORDERED: Folic Acid PO (12:59)
[2020-03-06] MEDS ORDERED: MAG-OXIDE400 MG PO (12:59)
[2020-03-06] MEDS ORDERED: ZINC SULFATE220 M1 PO (12:59)
[2020-03-06] MEDS ORDERED: CEFDINIR300 MG PO (13:00)
--- NOTE | 2020-03-06 13:28 | Progress Note ---
DATE: SUBJECTIVE: The patient feels better. She is very eager to go home. She has had some borderline blood pressure and has been started on midodrine. She is urinating well. She is awake and alert. PHYSICAL EXAMINATION: VITAL SIGNS: The patient is afebrile. The blood pressure is 94/51, pulse is 61, and saturation is 98%. HEENT: Shows no facial swelling or erythema. CARDIAC: Reveals regular rate and rhythm with normal S1 and S2. LUNGS: Auscultation of lungs reveals decreased breath sounds at the bases. There is no wheezing. ABDOMEN: Soft and nontender. There is no rebound or guarding. EXTREMITIES: Shows no leg edema or calf tenderness. There is no cyanosis or clubbing. SKIN: Shows no rashes. NEUROLOGICAL: Shows no focal abnormalities. LABORATORY DATA: White blood cell count is improved to 9.1 and hemoglobin is 9.1. The platelet count is 312. The BUN to creatinine ratio is normal. Other electrolytes are within normal limits. IMPRESSION: 1. Severe sepsis, on admission secondary to urinary tract infection. 2. Moderate protein-calorie malnutrition. 3. Prior gastric bypass surgery. 4. Vulvar cancer. 5. Decubitus ulcers in the perineum. 6. Anemia secondary to acute blood loss. 7. Chronic hydronephrosis. 8. Resolving pneumomediastinum of unclear etiology. PLAN: 1. The patient is feeling better and eager to go home. She will either go home with hospice or with home health. 2. Switch to p.o. antibiotics to cover for E. coli in the urine. 3. Continue enteral feedings. 4. Physical therapy. 5. Wound care. Sherwin Cardona MD LM/HAMLETL /[id number]
[2020-03-06] MEDS: MORPHINE SULFATE INJ 4 MG/ML INJ 1ML IV PRN (13:48)
--- NOTE | 2020-03-06 14:46 | NUR ---
Per Kaylah with [facility], paperwork has been signed. They will arrange transportation. Will update with ETA. Family opted not to sign OOH DNR.
--- NOTE | 2020-03-06 15:17 | NUR ---
Transportation arranged by hospice. ETA 1.5-2hrs. BRUNILDA Rahman was notified.
--- NOTE | 2020-03-06 16:48 | Progress Note ---
DATE: SUBJECTIVE: Ms. Guzman is alert, weak. There is no new complaint. She wants to go home, this was discussed with her. She wants to go home with hospice. She wants to go off antibiotic, family agreed. REVIEW OF SYSTEMS: She is just weak. PHYSICAL EXAMINATION: GENERAL: She is currently alert. VITAL SIGNS: Stable, currently afebrile. HEENT: She is not icteric. NECK: Supple. CHEST: Clear. HEART: S1, S2. No S3 or S4. No murmur. ABDOMEN: Soft. IMPRESSION: 1. The patient wants to go hospice, agree from Infectious Disease point of view. Recommend Keflex 500 mg p.o. q.8 for 2 weeks for urinary tract infection. 2. Sepsis. 3. Gastric bypass. 4. Vulvar cancer. 5. Decubitus ulcer. 6. We will follow up. Agree with discharge with hospice. MD GAVIN Mixon/SULMA /[id number]
--- NOTE | 2020-03-06 17:00 | NUR ---
Order from Dr Bassett to discontinue IJ CVC. The line was discontinued per protocol. Tip clean, intact. Pressure held, bandaged. No bleeding or complications noted.
--- NOTE | 2020-03-06 18:20 | Discharge Summary ---
ADMISSION DIAGNOSES: 1. Urinary tract infection with septic shock, present on admission. 2. Vulvar cancer with sacral and coccyx wounds, present on admission. 3. Acute blood loss anemia, secondary to hematuria and bleeding ulcer. 4. Pulmonary embolism. 5. IVC filter. DISCHARGE DIAGNOSES: 1. Urinary tract infection with septic shock, present on admission. 2. Vulvar cancer with sacral and coccyx wounds, present on admission. 3. Acute blood loss anemia, secondary to hematuria and bleeding ulcer. 4. Pulmonary embolism. 5. IVC filter. 6. Escherichia coli with septic shock, present on admission. HISTORY: Vulvar cancer, PE, IVC filter, asthma, chronic indwelling suprapubic catheter. SURGICAL HISTORY: Cholecystectomy, gastric bypass, vulvectomy, PEG, colostomy, . FAMILY HISTORY: The patient's mom has diabetes. The patient's mom and sister had cancer. SOCIAL HISTORY: Noncontributory. HOSPITAL COURSE: A 59-year-old female admits with complaints of bleeding wound and hematuria. The wound was bleeding and had clots that started yesterday and hematuria is chronic. She denies fever. The patient takes anticoagulation for PE and IVC filter. On admission, the patient was in septic shock due to urinary tract infection, so Levophed was started, cefepime was started IV, and Neurology was consulted as well as Surgery and Gynecology. Initially, the patient was advised to transfer to [place], but the patient and daughter refused to transfer. Per Surgery recommendation, CT of the abdomen and pelvis was done, which showed status post Manuela-en-Y gastric bypass without evidence of obstruction. Decrease trace lower pneumomediastinum. New trace to small amount of pneumoperitoneum in the upper abdomen, which could reflect tracking of the mediastinal air into the abdomen or gastric leak, status post interval suprapubic catheter placement with balloon terminating in the bladder, decreased mild to moderate right and minimal left hydronephrosis. Per Surgery recommendation, bleeding is coming from her old surgical sites. Hemoglobin remained stable after receiving 1 unit of PRBCs. Blood cultures were negative. Urine culture came back positive for E. coli, antibiotics were changed to Omnicef at the time of discharge. The patient has chronic hematuria, and urinary incontinence. Per Urology, the urinary incontinence is due to the trauma from the previous Araiza catheter. The patient and daughter want to discharge home with hospice, which was arranged prior to discharge. Her tube feeding is being arranged through her primary care physician. The patient and daughter understand discharge instructions and agreed to plan. Vital signs are stable. The patient is afebrile. Dictated by Emely Hamlin NP MD MARIAH Duckworth/SULMA /[id number]
== END 2020-03-06 18:00 | disposition hospice, home (50) | DRG 871 ==
LOC: ER 22:42 → ERHOLD 03-04 02:33 → ICU 03-04 16:50
PROVIDERS: ADMIT Internal Medicine; ATTEND Internal Medicine
PROC: 30233N1 Transfusion of Nonautologous Red Blood Cells into Peripheral Vein, Percutaneous Approach (ICD-10-PCS; principal; 2020-03-04)
DX: A41.51 Sepsis due to Escherichia coli [E. coli] (principal); L89.304 Pressure ulcer of unspecified buttock, stage 4; R65.21 Severe sepsis with septic shock; N39.0 Urinary tract infection, site not specified; D62 Acute posthemorrhagic anemia; N13.30 Unspecified hydronephrosis; R64 Cachexia; E44.0 Moderate protein-calorie malnutrition; Z68.1 Body mass index [BMI] 19.9 or less, adult; J98.2 Interstitial emphysema; C51.9 Malignant neoplasm of vulva, unspecified; Z98.84 Bariatric surgery status; N31.2 Flaccid neuropathic bladder, not elsewhere classified; N39.498 Other specified urinary incontinence; N32.81 Overactive bladder; E87.5 Hyperkalemia; Z95.828 Presence of other vascular implants and grafts; Z86.711 Personal history of pulmonary embolism; Z79.01 Long term (current) use of anticoagulants; Z90.79 Acquired absence of other genital organ(s); D63.8 Anemia in other chronic diseases classified elsewhere; E87.6 Hypokalemia
CPT/HCPCS: 36415; 36555; 71045; 74177; 74230; 80053; 81001; 82550; 82553; 83605; 83735; 84484; 85014; 85018; 85025; 86850; 86900; 86920; 87040; 87086; 87186; 87635; 97139; 99251; 99285; J0692; J2020; J2270; J2405; J2543; J3370; J3475; J7030; J7050; P9016; Q9967